=== PATIENT | male | born 1950 | race Caucasian/White ===

== ENCOUNTER 2017-12-19 16:28 | Emergency (ER) | payer MEDICARE, OTHER, SELFPAY ==
[2017-12-19 16:31] VITALS: BP 123/70; PULSE 70; RESP 18; TEMP 36.6; O2SAT 95; BMI 25.8
--- NOTE | 2017-12-19 16:36 | EKG12_ITS ---
Test Reason : NEURO S SX Blood Pressure : / mmHG Vent. Rate : 057 BPM Atrial Rate : 057 BPM P-R Int : 136 ms QRS Dur : 138 ms QT Int : 424 ms P-R-T Axes : 035 155 117 degrees QTc Int : 412 ms Sinus bradycardia Right bundle branch block Abnormal ECG Confirmed by GODFREY MEEK, CARA ([id number]), editor continuity and script DION CAI ([id number]) on 12/23/2017 2:56:24 PM Referred By: Erica Tapia Confirmed By:CARA DONAHEU MD
--- NOTE | 2017-12-19 16:36 | RAD_ITS ---
STUDY: X-RAY CHEST REASON FOR EXAM: Male, 67 years old. Dizziness, numbness, weakness, slurred speech TECHNIQUE: PA and lateral views of the chest. COMPARISON: None. FINDINGS: The lungs are clear and expanded. There is no demonstrated pleural abnormality. The heart size is within normal limits. Status post sternotomy changes are present. Normal mediastinum and isaak. Normal visualized pulmonary arteries. There are calcified plaques of the aortic arch. There are diffuse degenerative changes of the visualized thoracic spine. Stabilizing rods are seen in the visualized lower thoracic region. Normal visualized ribs, clavicles, and shoulders. There is no demonstrated abnormality of the visualized soft tissue structures of the upper abdomen. RAD/Chest PA and Lateral IMPRESSION: Status post sternotomy. Calcified plaques of the aortic arch. Stabilizing rods are seen in the visualized lower thoracic region. There is mild diffuse thoracic spinal endplate spondylosis. Electronically Signed: Olaf England MD at 16:59 EDT , Service support ,
[2017-12-19 16:52] LABS: Absolute Lymphocyte Count 1.54 X10^3/ul (0.83-4.51); Absolute Neutrophil Count 3.3 X10^3/uL (2.0-7.7); Basophil# 0.05 X10^3/uL; Basophil% 0.8 % (0-1); Eosinophil# 0.39 X10^3/uL; Eosinophils% 6.6 % (0-5); Hematocrit 41.6 % (40-54); Hemoglobin 13.8 g/dl (13.0-16.5); Lymphocyte # 1.54 X10^3/ul (4.0); Lymphocyte % 25.9 % (19-41); Mean Corp Hgb Conc 33.2 g/gl (32-36); Mean Corpuscular Hgb 31.7 pg (27.0-32.0); Mean Corpuscular Volume 95.6 fL (80-94); Mean Platelet Vol. 9.5 fl (6.2-12.0); Monocyte# 0.63 X10^3/uL; Monocyte% 10.6 % (0-10); Neutrophil # 3.31 X10^3/uL (2.7-7.7); Neutrophil % 55.8 % (47-70); POSITIVE COUNT NO; POSITIVE DIFFERENTIAL NO; POSITIVE MORPHOLOGY NO; Platelet Count 181 K/mm3 (150-450); RBC Distribution Width CV 14.8 % (11.6-14.6); RBC Distribution Width SD 52.2 fl (35.1-43.9); Red Blood Count 4.35 M/mm3 (4.6-6.2); White Blood Count 5.9 K/mm3 (4.4-11.0)
[2017-12-19 17:02] LABS: Anion Gap 7 (5-15); BUN 24 mg/dL (7-18); BUN/Creat Ratio 20.5 RATIO (10-20); Calcium,Total 8.6 mg/dL (8.5-10.1); Chloride 107 mmol/L (98-107); Creatinine, Serum 1.17 mg/dL (0.70-1.30); EST Glomerular Filtration Rate 66 mL/min (>60); Est Glom Filt Rate - Afr Amer 80 mL/min (>60); Estimated Creatinine Clearance 59.27 ml/min; Glucose 107 mg/dL (74-106); Potassium 3.8 mmol/L (3.5-5.1); Sodium Level 140 mmol/L (136-145)
--- NOTE | 2017-12-19 18:38 | CT_ITS ---
STUDY: CTA OF THE ABDOMINAL AORTA AND BILATERAL LOWER EXTREMITIES REASON FOR EXAM: Male, 67 years old. Severe right lower leg pain. History of diabetes, peripheral vascular disease, coronary artery disease, hypertension and nonhealing wound of the right heel. RADIATION DOSAGE (If Supplied By Facility): CTDIvol = ( 9.56 ) mGy, DLP = ( 1442.95 ) mGycm TECHNIQUE: Axial CT angiography multi-detector data acquisition was obtained from the diaphragm to the feces following intravenous administration of 100 ml of Isovue 370 contrast. Axial images and MIP images were reconstructed from the axial data set. Post-processing of the angiographic images was performed, with multiplanar reformation and 3D reconstruction. Individualized dose optimization techniques were used for this CT. TECHNICAL QUALITY: Good COMPARISON: None. Descriptors of Narrowing: None (0%) Mild (< 50%) Moderate (50-70%) Severe (70-90%) Subtotal/Total Occlusion (90-100%) Non-Evaluable (technically non-diagnostic FINDINGS: Abdominal aorta: Mild to moderate calcified and noncalcified plaque of the aorta without aneurysm, dissection or substantial narrowing of the aortic lumen. Celiac and superior mesenteric arteries: Less than 50% narrowing. Inferior mesenteric artery: Patent. Right renal artery(arteries): Less than 50% narrowing of a single right renal artery. Left renal artery(arteries): Less than 50% narrowing of the single left renal artery. Right common iliac artery: Mild plaque with less than 50% narrowing. Right external iliac artery: Mild to moderate plaque with less than 50% narrowing. Right internal iliac artery: Proximal occlusion with distal reconstitution. Left common iliac artery: Ectatic with mild plaque without significant stenosis. Left external iliac artery: Less than 50% narrowing. Left internal iliac artery: Less than 50% narrowing. RIGHT LOWER EXTREMITY Right common femoral artery: Moderate plaque with less than 50% narrowing Right profundus femoris: No demonstrated narrowing. Right superficial femoral: Occluded 2 cm below the origin. Occlusion is proximal to the endovascular stent which remains occluded. Right popliteal artery: Occluded Right tibioperoneal trunk: Occlusion Right anterior tibial artery: Proximal collateral reconstitution patent to the level of the foot. Right posterior tibial artery: Occluded proximally with distal reconstitution in the lower leg. Thereafter patent into the foot. Right peroneal artery: Occluded proximally. Distal reconstitution. LEFT LOWER EXTREMITY Left common femoral artery: Less than 50% narrowing. Left profundus femoris: Less than 50% narrowing. Left superficial femoral: Occluded at the origin. Minimal distal reconstitution. Left popliteal artery: Occluded Left tibioperoneal trunk: Occluded Left anterior tibial artery: Collateral proximal reconstitution visible into the foot. Left posterior tibial artery: Occluded proximally with distal reconstitution. Left peroneal artery: Proximal reconstitution. Visible to the ankle. Diffuse edematous changes of the bilateral feet and distal lower extremities. Moderate effusion of the right knee. Minimal effusion of the left knee. Large volume urinary bladder. Diverticulosis. Renal cysts. Cortical scar upper pole of the right kidney. 3 cm cyst of the upper pole of the left kidney. Small cortical scar of the upper pole of the left kidney. 2 cm nodule of the right adrenal gland indeterminate. Slightly nodular appearance of the left adrenal gland. Status post lumbar sacral fusion. CT/CTA Abd w/Runoff W/WO Contrast IMPRESSION: Moderate atheromatous disease of the aorta without aneurysm, dissection or substantial narrowing of the lumen. Less than 50% narrowing of the celiac artery, superior mesenteric artery, bilateral renal arteries. Inferior mesenteric artery is patent. Less than 50% narrowing of the right common femoral artery and external iliac artery. The right internal iliac artery is occluded at its origin with distal reconstitution. The right superficial femoral artery is occluded 2 cm past the origin including occlusion of the endovascular stent. Patent nonstenotic profundal artery. Occluded popliteal artery and tibioperoneal trunk. Reconstitution of the proximal anterior tibial artery which is patent into the foot. Occlusion of the proximal peroneal and posterior tibial arteries with distal reconstitution. Ectatic left common femoral artery without stenosis. Less than 50% narrowing of the left external and internal iliac arteries. The left superficial femoral artery is occluded at the origin. Patent nonstenotic profundal artery. Occluded popliteal artery and tibioperoneal trunk. Reconstitution of the proximal anterior tibial artery which remains patent into the level of the foot. Occluded proximal peroneal and posterior tibial arteries with distal reconstitution. Peroneal artery visible to the ankle. Distal posterior tibial artery patent into the foot. Diffuse emphysematous changes of the bilateral lower extremities. Bilateral knee joint effusion, right greater than left. Diverticulosis. Renal cysts and renal scarring. Indeterminate 2 cm right adrenal nodule. Slightly nodular left adrenal gland. Status post lumbosacral fusion. Electronically Signed: Mame Villalobos MD at 20:13 EDT , Service support ,
[2017-12-19] MEDS: Ondansetron 4 MG/2 ML Vial IV (19:12)
[2017-12-19] MEDS: 0.9% Normal Saline 1,000 ML 50 ML IV (19:12)
[2017-12-19] MEDS: HYDROcodone Bitartrate/Apap 5/325 Tablet PO (19:44)
--- NOTE | 2017-12-19 21:03 | ED.DCSUM_ITS ---
- ER Visit Summary Date of Service: 12/19/17 Chief Complaint: Right foot pain History of Present Illness: The patient is a [address] Manolo Pena and Dr. Navas. He reports that he developed a blister on the right heel approximately 1 week ago. He states that 2 days ago it broke open and is now raw and painful. Reports he has a stinging pain is 8 out of 10 severity when he bumps it or walks. Is 3 out of 10 after rest and hydrocodone. Physical Examination: Vitals: Stable. Afebrile. General: Well-nourished and well-developed. Head: Normocephalic atraumatic. Neck: Supple, no lymphadenopathy. No JVD. Nontender. Cardiovascular: Regular rate and rhythm. No murmurs. Respiratory: No respiratory distress. Clear to auscultation bilaterally. Abdominal: Soft, nontender, nondistended, normal bowel sounds. No guarding, rebound, or peritoneal signs. Back: Nontender. Extremities: Nontender, no edema. No palpable dorsalis pedis or posterior tibial pulses bilaterally. There is 3-4 second cap refill. Skin: On the medial side of the right calcaneus there is a 3 cm unroofed blister. There is no surrounding erythema or drainage. No induration.. Neurologic: Alert and oriented ?3. Cranial nerves II through XII are intact. Normal strength and sensation. Psych: Normal affect. Test Results: EKG sinus bradycardia 57 with right bundle branch block. Is unchanged from 2014. Chem-7 is more for glucose 107 and BUN 24. CBC is more for monocytes of 11 eosinophils of 7. Chest x-ray shows chronic changes and no acute disease. Clinical Impression(s) from Imaging Studies Abdomen/Pelvis CTA 12/19/17 18:38 IMPRESSION: Moderate atheromatous disease of the aorta without aneurysm, dissection or substantial narrowing of the lumen. Less than 50% narrowing of the celiac artery, superior mesenteric artery, bilateral renal arteries. Inferior mesenteric artery is patent. Less than 50% narrowing of the right common femoral artery and external iliac artery. The right internal iliac artery is occluded at its origin with distal reconstitution. The right superficial femoral artery is occluded 2 cm past the origin including occlusion of the endovascular stent. Patent nonstenotic profundal artery. Occluded popliteal artery and tibioperoneal trunk. Reconstitution of the proximal anterior tibial artery which is patent into the foot. Occlusion of the proximal peroneal and posterior tibial arteries with distal reconstitution. Ectatic left common femoral artery without stenosis. Less than 50% narrowing of the left external and internal iliac arteries. The left superficial femoral artery is occluded at the origin. Patent nonstenotic profundal artery. Occluded popliteal artery and tibioperoneal trunk. Reconstitution of the proximal anterior tibial artery which remains patent into the level of the foot. Occluded proximal peroneal and posterior tibial arteries with distal reconstitution. Peroneal artery visible to the ankle. Distal posterior tibial artery patent into the foot. Diffuse emphysematous changes of the bilateral lower extremities. Bilateral knee joint effusion, right greater than left. Diverticulosis. Renal cysts and renal scarring. Indeterminate 2 cm right adrenal nodule. Slightly nodular left adrenal gland. Status post lumbosacral fusion. Electronically Signed: Mame Villalobos MD at 20:13 EDT , Service support , Emergency Department Course and Treatment: Patient was treated with [place] p.o. and Plavix p.o. He is resting comfortably. Treatment Plan: The patient was discussed with his vascular surgeon Dr. Navas. I read the CT report to him. He reports at this time no further treatment is needed he would like the patient be placed on Plavix. He has appointment to see him in 4 days. He is instructed to keep this appointment. It sounds as though at that time they will will do an angiogram to see if there is something that can be revascularized. Patient is to return to emerge department for worsening pain or a pale leg that would suggest acute ischemia. Disposition: To home in improved and stable condition. Impression: 1. Peripheral arterial disease. 2. Blister right heel. This note was generated with [employer] dictation software. It may contain incorrect words, spelling, and punctuation that were not noted in review of the chart prior to signing ED Disposition - Plan for ED Patient: Disposition: Home or Assisted Living Chief Complaint: Neuro S/Sx Instructions: ED PVD Prescriptions: Oxycodone HCl/Acetaminophen [Percocet 5/325] 1 tablet PO Q6H PRN PRN 5 Days #20 tablet PRN Reason: Pain Clopidogrel Bisulfate [Plavix] 75 mg PO DAILY #30 tablet Docusate Sodium [Colace] 100 mg PO DAILY #20 capsule Referrals: Lex Navas MD [STAFF PHYSICIAN] - Keep [facility] appointment
[2017-12-19] MEDS: Clopidogrel Bisulfate 75 MG Tablet PO (21:24)
[2017-12-19 21:29] VITALS: BP 111/53; PULSE 65; RESP 18; O2SAT 95
== END 2017-12-19 21:31 | disposition home or self-care (01) ==
PROVIDERS: Emergency Provider Emergency Medicine; Family Provider Family Medicine; PCP Family Medicine
DX: I73.9 Peripheral vascular disease, unspecified (principal); S90.821A Blister (nonthermal), right foot, initial encounter; X58.XXXA Exposure to other specified factors, initial encounter; Y93.9 Activity, unspecified; Y92.9 Unspecified place or not applicable; I25.10 Atherosclerotic heart disease of native coronary artery without angina pectoris; I25.2 Old myocardial infarction; I10 Essential (primary) hypertension; E11.9 Type 2 diabetes mellitus without complications; Z86.73 Personal history of transient ischemic attack (TIA), and cerebral infarction without residual deficits; Z95.1 Presence of aortocoronary bypass graft; Z79.82 Long term (current) use of aspirin; Z79.01 Long term (current) use of anticoagulants; Z79.899 Other long term (current) drug therapy
CPT/HCPCS: 71046; 75635; 80048; 85025; 93005; 96361; 96374; 96375; 99285; J7030; Q9967; A4216; J2405

== ENCOUNTER → 2018-02-19 12:53 | Outpatient (CLI) | payer MEDICARE, OTHER, SELFPAY ==
--- NOTE | 2018-02-19 12:56 | ADUL_ITS ---
Reason For Study: Atherosclerosis Right Velocities Ext. Iliac Artery, dist = 156 cm./sec. Common Femoral Artery, dist = 117 cm./sec. Supf Femoral Artery, prox = 49 cm./sec. Rt SFA prox-distal: No Flow. Profunda Femoral Artery = 288 cm./sec. Post. Tibial Artery, dist = 17 cm./sec. Peroneal Artery, mid = 9 cm./sec. Ant. Tibial Artery, prox = 24 cm./sec. Ant. Tibial Artery, mid = 25 cm./sec. Ant. Tibial Artery, dist = 34 cm./sec. Rt INFORMATION SERVICES VICE PRESIDENT prox and mid: No Flow Rt PeroA prox and distal: No Flow Rt DPA: 10cm/s. Procedure Exam performed in department. Interpretation Summary 1. Right SFaand popliteal occluded with monohasic flow in anterior tibial which is only run off into foot. Ordering Physician: Lex Navas Referring Physician: Manolo Pena Performed By: Marybeth Shi, ED, RVT
--- NOTE | 2018-02-19 14:19 | VDLE_ITS ---
Reason For Study: Preop Arterial Bypass RIGHT LEFT Rt GSV harvested for CABG Lt GSV thigh prox: 0.47cm x 0.44cm, depth: 1.15cm Rt SSV prox: 0.30cm x 0.32cm, depth: 0.37cm Lt GSV thigh prox/mid: 0.42cm x 0.42cm, Rt SSV prox/mid: 0.31cm x 0.30cm, depth: depth: 0.56cm 0.93cm Lt GSV thigh mid: 0.45cm x 0.46cm, depth: Rt SSV mid: 0.26cm x 0.26cm, depth: 0.78cm 0.60cm Rt SSV mid/distal: 0.32cm x 0.32cm, depth: Lt GSV thigh mid/distal: 0.42cm x 0.45cm, 0.45cm depth: 0.60cm Rt SSV distal: 0.30cm x 0.33cm, depth: Lt GSV thigh distal: 0.46cm x 0.51cm, depth: 0.55cm. 0.39cm Lt GSV knee: 0.45cm x 0.45cm, depth: 0.27cm Lt GSV prox: 0.38cm x 0.38cm, depth: 0.21cm Lt GSV prox/mid: 0.30cm x 0.31cm, depth: 0.81cm Lt GSV mid: 0.33cm x 0.32cm, depth: 0.86cm Lt GSV mid/distal: 0.38cm x 0.39cm, depth: 0.81cm Lt GSV distal: 0.39cm x 0.40cm, depth: 0.76cm Lt SSV prox: 0.37cm x 0.38cm, depth: 0.57cm Lt SSV prox/mid: 0.47cm x 0.48cm, depth: 0.95cm Lt SSV mid: 0.42cm x 0.39cm, depth: 1.01cm Lt SSV mid/distal: 0.42cm x 0.42cm, depth: 0.75cm Lt SSV distal: 0.35cm x 0.36cm, depth: 0.82cm. Interpretation Summary 1. Left GSv good caliber throughout. 2. Bilateral LSV normal. Ordering Physician: Lex Navas Referring Physician: Manolo Pena Performed By: Marybeth Shi RDCS, RVT
--- NOTE | 2018-02-26 08:20 | LEAS ---
Arterial Study - Arterial Study Arterial Study: Date of scan 02/19/[address] Navas History: Patient with right heel ulcer and known atherosclerosis. Interpretation: Right lower extremity with decreased waveform noted at the ankle with monophasic flow. JANET 0.1 of the PT 0.4 for the DP. Digit brachial index 0.11. Left lower extremity also monophasic flow noted at the ankle with a very poor waveform of the posterior tibial and unable to get a JANET. Also unable to get an JANET of the DP. Digit brachial index 0.28 Impression: 1. Bilateral lower extremities with severe arterial occlusive disease with an JANET 0.44 on the right and unable to get one on the left. 2. Severe PAD with also probable small vessel disease with the digit brachial index 0.11 on the right 0.28 on the left
== END ==
PROVIDERS: Family Provider Family Medicine; PCP Family Medicine; Visit Provider Surgery Vascular Surgery
DX: Z01.818 Encounter for other preprocedural examination (principal); I70.213 Atherosclerosis of native arteries of extremities with intermittent claudication, bilateral legs; I70.245 Atherosclerosis of native arteries of left leg with ulceration of other part of foot
CPT/HCPCS: 93922; 93926; 93970

== ENCOUNTER 2018-06-13 12:54 | Outpatient (RCR) | payer MEDICARE, OTHER, SELFPAY ==
[2018-06-13 13:27] VITALS: BP 157/70; PULSE 62; RESP 16; TEMP 36.9; BMI 27.3
--- NOTE | 2018-06-13 17:57 | HP.PCM_ITS ---
(1) Type 2 diabetes, uncontrolled, with ulcer of heel Status: Chronic Current Visit: Yes Code(s): E11.621 - Type 2 diabetes mellitus with foot ulcer; E11.65 - Type 2 diabetes mellitus with hyperglycemia; L97.409 - Non-pressure chronic ulcer of unspecified heel and midfoot with unspecified severity (2) Non-healing open wound of heel Status: Chronic Current Visit: Yes Qualifiers: Encounter type: initial encounter Laterality: right Qualified Code(s): S91.301A - Unspecified open wound, right foot, initial encounter Code(s): S91.309A - Unspecified open wound, unspecified foot, initial encounter (3) Peripheral vascular disease Status: Chronic Current Visit: Yes Code(s): I73.9 - Peripheral vascular disease, unspecified (4) Hypertension Status: Chronic Current Visit: Yes Code(s): I10 - Essential (primary) hypertension (5) Coronary artery disease Status: Chronic Current Visit: No Qualifiers: Coronary Disease-Associated Artery/Lesion type: bypass graft [place] vs. transplanted heart: [place] heart Associated angina: angina presence unspecified Qualified Code(s): I25.810 - Atherosclerosis of coronary artery bypass graft(s) without angina pectoris Code(s): I25.10 - Atherosclerotic heart disease of [place] coronary artery without angina pectoris Comment: Status post CABG (6) Venous ulcer of right lower extremity without varicose veins Status: Chronic Current Visit: Yes Code(s): I87.2 - Venous insufficiency (chronic) (peripheral); L97.919 - Non-pressure chronic ulcer of unspecified part of right lower leg with unspecified severity History of Present Illness Date of Service: 06/13/18 Chief Complaint: Nonhealing ulcer right heel and whitney History of Wound: This 68-year-old male is here for evaluation of an ulcer of his right heel and his right whitney. He states that he has had an ulcer approx. 5 years ago of this same heel and was treated here and was healed after vascular interventions by Dr. Navas. He has noticed increased pain in his heel for the last few months and approx. 5 weeks ago he noted an open wound to his right heel. He was using gauze but this started to irritate his skin and has been using silvadene and adaptic to the wound with tape for the last few weeks. He has not had any treatment with antibiotics for the wound. He is self-referred for treatment here. He does follow with Dr. 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 He has had procedures for his arterial disease in past to both of his lower extremities. From review of records it seems that Dr. Navas planned to do a right SFA-ant. tib bypass but it does not appear that this was done and patient denies having any bypass procedures other than his heart. It sounds like he is trying alternative treatments with supplements and chelation therapy. He also has diabetes and his last A1C several months ago was 7.2% but he stopped glyburide because he felt it was causing blisters of his legs. He does wear diabetic shoes. He has been undergoing chelation treatments by Dr. German in [place]. Dr. German prescribed him oxycodone-APAP 5/325 mg #60 which were filled on 05/22/18 for pain, he has six tablets left from this prescription, and he is asking for pain medication to treat pain from debridement. He reports having xrays done several months ago of his right heel due to pain which did not show any osteomyelitis or acute fractures. He denies fever, chills, erythema or heavy drainage. He reports significant pain and discomfort of his right heel and his entire right leg which no one can explain. Past Medical History Past Medical History: Chronic Problems Type 2 diabetes, uncontrolled, with ulcer of heel (Chronic) Venous ulcer of right lower extremity without varicose veins (Chronic) Non-healing open wound of heel (Chronic) Hyperlipidemia (Chronic) Peripheral vascular disease (Chronic) Hypertension (Chronic) Coronary artery disease (Chronic) Status post CABG Type II diabetes mellitus (Chronic) Surgical History: coronary bypass surgery, - - Recurrent back surgeries ?3 Allergies/Adverse Reactions: Allergies No Known Allergies Allergy (Verified 06/13/18 14:10) Home Medications: Ambulatory Orders Medication Instructions Recorded #17 3 tab PO DAILY 06/13/18 Aspirin [Lite Coat Aspirin] 325 mg PO BID 06/13/18 [id number] 1 PO DAILY 06/13/18 Calcium Lactate 1 PO DAILY 06/13/18 [place] Oil Packs 1 TOPICAL Q24H 06/13/18 Cat C 2 PO BID 06/13/18 Cat E2 8 PO DAILY 06/13/18 Cholecalciferol (Vitamin D3) 5,000 mg PO BID 06/13/18 [Vitamin D3] Colon Clear 1 tab PO DAILY 06/13/18 Inositol 2 PO BID 06/13/18 Intestinal Cleanse No 1 3 tab PO DAILY 06/13/18 Iosol 2 drop PO MOWEFR 06/13/18 Kdir 2 PO BID 06/13/18 Koncentrated K 1 tab PO DAILY 06/13/18 Lymphtone Iii 5 drop SL BID 06/13/18 Mag Lactate 1 PO DAILY 06/13/18 Nattokinase 2 tab PO DAILY 06/13/18 Oxycodone HCl/Acetaminophen 1 tablet PO BID PRN 06/13/18 [Percocet 5/325] Phosphood Liquid 1 drop PO DAILY 06/13/18 Potassium-Derick 1 PO DAILY 06/13/18 Tuna 03 Oil 3 PO DAILY 06/13/18 Viru-Chord 5 drop SL BID 06/13/18 Zn-Zyme 1 PO DAILY 06/13/18 - Family History Maternal Diabetes, Heart Disease, Hypertension, Stroke Paternal Diabetes, Heart Disease, Pulmonary Disease Sibling Cancer Lives: Spouse/ Significant Other Smoking Status: Never smoker Tobacco Use: Non-smoker Alcohol: None Drugs: None Review of Systems Constitutional: Denies: Chills, Fever, Weight Change Eyes: Denies: Pain, Vision Change HEENT: Denies: Difficulty Hearing, Difficulty Swallowing, Sinus Congestion Cardiovascular: Denies: Chest Pain, Palpitations Respiratory: Denies: Cough, Shortness of Breath Gastrointestinal: Denies: Diarrhea, Nausea, Vomiting Genitourinary: Denies: Dysuria, Hematuria Musculoskeletal: Reports: Back Pain, Leg Pain Skin: Reports: Wounds Neurological: Reports: Numbness, Tingling Endocrine: Denies: Heat/ Cold Intolerance, Polydipsia, Polyuria Hematologic/ Lymphatic: Denies: Easy Bruising, Easy Bleeding - Physical Exam Vital Signs Temp Pulse Resp BP 98.4 F 62 16 157/70 H 06/13/18 13:27 06/13/18 13:27 06/13/18 13:27 06/13/18 13:27 General: Alert, Oriented x3, Cooperative, No apparent distress HEENT: Atraumatic, Normocephalic Oral: Dry Mucosa Neck: Supple Lungs: Clear to auscultation Cardiovascular: Regular rate, Regular Rhythm Abdomen: Soft, Non Tender Extremities: Diminished Peripheral Pulses, Edema, Tenderness Skin: Ulcer/ Wound Wound Measurements and Assessment WC - Nurse 1 - General Ulcer Measurement Start: 06/13/18 13:27 Freq: Status: Active Protocol: Activity Type Activity Date Activity User E-Sign Co-Sign Detail Recorded Client Recorded Date Recorded By Document 06/13/18 13:27 [facility] [id number] 06/13/18 14:03 [facility] 06/13/18 13:27 Wound Center Nurse 1 [Ulcer Assessment] #3 Right Medial Whitney -Combined with other wound No -Current Size (cm) - Length 2.2 -Current Size (cm) - Width 0.4 -Current Size (cm) - Depth 0.2 -Total Square Cm 0.88 -Photo Taken No -Epithelialization None Present -Tunneling No -Undermining/Tunneling No -Circular Undermining No -Classification - Thickness Full Thickness without Exposed Support Structure -Exudate Amt Small (1-33%) -Exudate Type Serosanguineous -Wound Margin Flat & Intact -Granulation Amt None Present (0 %) -Granulation Quality N/A -Slough/Fibrin Yes -Necrosis Amt Small (1-33%) -Necrotic Tissue Type Adherent Slough -Structure Exposed None/Limited to Skin Breakdown -Texture (Shahana-wound Skin Appearance) Assessed -Moisture (Shahana-wound Skin Appearance Assessed ) -Color (Shahana-wound Skin Appearance) Assessed -Temperature (Shahana-wound Skin No Abnormality Appearance) (Pt Warm) -Ulcer Cleansing Rinsed/ Irrigated with Saline -Foul Odor after Cleansing No -Anesthetic Used 5% Lidocaine Gel #2 R Heel -Combined with other wound No -Current Size (cm) - Length 1.0 -Current Size (cm) - Width 0.8 -Current Size (cm) - Depth 0.2 -Total Square Cm 0.80 -Date of Last Picture (Recall this 06/13/18 field) -Photo Taken Yes -Epithelialization None Present -Tunneling No -Undermining/Tunneling No -Circular Undermining No -Classification - Thickness Full Thickness without Exposed Support Structure -Exudate Amt Small (1-33%) -Exudate Type Serosanguineous -Wound Margin Indistinct, Non -Visible -Granulation Amt None Present (0 %) -Granulation Quality N/A -Slough/Fibrin Yes -Necrosis Amt Large (67-100%) -Necrotic Tissue Type Adherent Slough -Structure Exposed None/Limited to Skin Breakdown -Texture (Shahana-wound Skin Appearance) Assessed Scarring -Moisture (Shahana-wound Skin Appearance Assessed ) Weeping -Color (Shahana-wound Skin Appearance) Assessed Erythema -Temperature (Shahana-wound Skin No Abnormality Appearance) (Pt Warm) -Tenderness on Palpation (Shahana-wound Yes Skin Appearance) -Ulcer Cleansing Rinsed/ Irrigated with Saline -Foul Odor after Cleansing No -Anesthetic Used 5% Lidocaine Gel [Edema Assessment] -Lower Limb Edema Present No -Right Calf (cm) 31.7 -Right Ankle (cm) 22.5 -Left Calf (cm) 31.9 -Left Ankle (cm) 24.8 WC - Nurse 2 - General Ulcer CM Notes Start: 06/13/18 13:27 Freq: Status: Active Protocol: Activity Type Activity Date Activity User E-Sign Co-Sign Detail Recorded Client Recorded Date Recorded By Document 06/13/18 14:24 [id number] 06/13/18 14:43 [facility] 06/13/18 14:24 Wound Center Nurse 2 [Procedure/Treatment] #4 RIGHT ACHILLES -Time 14:47 -Correct Patient Yes -Correct Side, Site, Position Yes -Correct Procedure Yes -Procedure Performed Yes -Type of Procedure Debridement -Clinical Debridement Subcutaneous -Post Debridement Size (cm) - Length 1.0 -Post Debridement Size (cm) - Width 0.9 -Post Debridement Size (cm) - Depth 0.2 -Total Square Cm 0.90 -Wound/Ulcer Outcome Not Healed -Ulcer Cleansing Rinsed/ Irrigated with Saline -Foul Odor after Cleansing No -Bioengineered Tissue No -Bleeding Controlled with Pressure -Offloading No -Treatment Response Procedure Tolerated Well #3 Right Medial Whitney -Time 14:29 -Correct Patient Yes -Correct Side, Site, Position Yes -Correct Procedure Yes -Procedure Performed Yes -Type of Procedure Debridement -Clinical Debridement Subcutaneous -Post Debridement Size (cm) - Length 4.4 -Post Debridement Size (cm) - Width 0.5 -Post Debridement Size (cm) - Depth 0.1 -Total Square Cm 2.20 -Wound/Ulcer Outcome Not Healed -Ulcer Cleansing Rinsed/ Irrigated with Saline -Foul Odor after Cleansing No -Bioengineered Tissue No -Bleeding Controlled with Pressure -Offloading No -Treatment Response Procedure Tolerated Well #2 R Heel -Time 14:29 -Correct Patient Yes -Correct Side, Site, Position Yes -Correct Procedure Yes -Procedure Performed Yes -Type of Procedure Debridement -Clinical Debridement Subcutaneous -Post Debridement Size (cm) - Length 1 -Post Debridement Size (cm) - Width 1 -Post Debridement Size (cm) - Depth 0.3 -Total Square Cm 1 -Wound/Ulcer Outcome Not Healed -Ulcer Cleansing Rinsed/ Irrigated with Saline -Foul Odor after Cleansing No -Bioengineered Tissue No -Bleeding Controlled with Pressure -Offloading No -Treatment Response Procedure Tolerated Well [See Physician Procedure note for Specifics] Pain Scale: 0-10 Numeric [Pain] -Is Patient Pain Free? Yes Neurological: - - left foot drop Psych/Mental Status: Normal Affect, Appropriate Debridement Note Post-Debridement Measurements/Treatment WC - Nurse 2 - General Ulcer CM Notes Start: 06/13/18 13:27 Freq: Status: Active Protocol: Activity Type Activity Date Activity User E-Sign Co-Sign Detail Recorded Client Recorded Date Recorded By Document 06/13/18 14:24 [id number] 06/13/18 14:43 06/13/18 14:24 Wound Center Nurse 2 #4 RIGHT ACHILLES -Time 14:47 -Correct Patient Yes -Correct Side, Site, Position Yes -Correct Procedure Yes -Procedure Performed Yes -Type of Procedure Debridement -Clinical Debridement Subcutaneous -Post Debridement Size (cm) - Length 1.0 -Post Debridement Size (cm) - Width 0.9 -Post Debridement Size (cm) - Depth 0.2 -Total Square Cm 0.90 -Wound/Ulcer Outcome Not Healed -Ulcer Cleansing Rinsed/ Irrigated with Saline -Foul Odor after Cleansing No -Bioengineered Tissue No -Bleeding Controlled with Pressure -Offloading No -Treatment Response Procedure Tolerated Well #3 Right Medial Whitney -Time 14:29 -Correct Patient Yes -Correct Side, Site, Position Yes -Correct Procedure Yes -Procedure Performed Yes -Type of Procedure Debridement -Clinical Debridement Subcutaneous -Post Debridement Size (cm) - Length 4.4 -Post Debridement Size (cm) - Width 0.5 -Post Debridement Size (cm) - Depth 0.1 -Total Square Cm 2.20 -Wound/Ulcer Outcome Not Healed -Ulcer Cleansing Rinsed/ Irrigated with Saline -Foul Odor after Cleansing No -Bioengineered Tissue No -Bleeding Controlled with Pressure -Offloading No -Treatment Response Procedure Tolerated Well #2 R Heel -Time 14:29 -Correct Patient Yes -Correct Side, Site, Position Yes -Correct Procedure Yes -Procedure Performed Yes -Type of Procedure Debridement -Clinical Debridement Subcutaneous -Post Debridement Size (cm) - Length 1 -Post Debridement Size (cm) - Width 1 -Post Debridement Size (cm) - Depth 0.3 -Total Square Cm 1 -Wound/Ulcer Outcome Not Healed -Ulcer Cleansing Rinsed/ Irrigated with Saline -Foul Odor after Cleansing No -Bioengineered Tissue No -Bleeding Controlled with Pressure -Offloading No -Treatment Response Procedure Tolerated Well Pain Scale: 0-10 Numeric Is Patient Pain Free? Yes Wound debrided: right achilles Laterality: Right Wound Grade/Stage: Stage 1 Valdez Type of Debridement: Excisional debridement Anesthesia Used: 4% Lidocaine Solution, 5% Lidocaine Gel Depth: Down to and including healthy tissue, in the subcutaneous layer Percentage of wound debrided: 100 Instrument Used: 5mm curette Tissue Removed: yellow slough, devitalized tissue Severity: Fat Layer Exposed Amount of bleeding with debridement: Mild Bleeding Controlled with: Compression and gauze Patient tolerated procedure well - Additional Wound Wound debrided: right heel Laterality: Right Wound Grade/Stage: Valdez stage 1 Type of Debridement: Excisional debridement Anesthesia Used: 4% Lidocaine Solution, 5% Lidocaine Gel Depth: Down to and including healthy tissue, in the subcutaneous layer Percentage of wound debrided: 100 Instrument Used: 5mm curette, #15 blade, Forceps Tissue Removed: yellow slough, devitalized tissue Severity: Fat Layer Exposed Amount of bleeding with debridement: Mild Bleeding Controlled with: Compression and gauze Patient tolerated procedure: Patient tolerated procedure well - Additional Wound Wound debrided: right whitney Laterality: Right Type of Debridement: Excisional debridement Anesthesia Used: 4% Lidocaine Solution, 5% Lidocaine Gel Depth: Down to and including healthy tissue, in the subcutaneous layer Percentage of wound debrided: 100 Instrument Used: 5mm curette Tissue Removed: yellow slough, devitalized tissue Severity: Fat Layer Exposed Amount of bleeding with debridement: Mild Bleeding Controlled with: Compression and gauze Patient tolerated procedure: Patient tolerated procedure well Assessment/Plan Active Problems Type 2 diabetes, uncontrolled, with ulcer of heel (Chronic) Venous ulcer of right lower extremity without varicose veins (Chronic) Non-healing open wound of heel (Chronic) Peripheral vascular disease (Chronic) Hypertension (Chronic) Assessment: 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 Diabetes mellitus - uncontrolled. Peripheral vascular disease - status post revascularization but re-occlusion. right whitney venous ulcer Plan: Gibson's wounds were evaluated and debrided today. Records from vascular have been reviewed and it appears that Dr. Navas recommended a SFA-ant. tib. bypass for his right leg but this has not been done. Wound culture was taken of his heel and will treat based on results. Will use Aquacel Ag and adaptic for treatment of his ulcers. Discussed offloading importance and gave him a surgical shoe to wear to offload his heel. Discuss TCC but he refuses at this time. Single layer tubigrip compression advised if he can tolerate this, avoidance of idle standing or sitting with legs hanging down. Encouraged improved control of his blood sugars. Encouraged him to seek consultation with pain management for his pain and gave him a 7 day RX (#56) for tramadol to use for pain as needed. [place]ARRS checked and appropriate. Encouarged to call with increased drainage, redness or fever or chills. Will f/u in 1 week.
== END 2018-06-16 23:59 ==
LOC: WC 12:54
PROVIDERS: Family Provider Family Medicine; PCP Family Medicine; Visit Provider Family Medicine
DX: E11.621 Type 2 diabetes mellitus with foot ulcer (principal); E11.65 Type 2 diabetes mellitus with hyperglycemia; E11.51 Type 2 diabetes mellitus with diabetic peripheral angiopathy without gangrene; I10 Essential (primary) hypertension; L97.412 Non-pressure chronic ulcer of right heel and midfoot with fat layer exposed; I25.10 Atherosclerotic heart disease of native coronary artery without angina pectoris; Z95.5 Presence of coronary angioplasty implant and graft; Z79.899 Other long term (current) drug therapy; Z79.82 Long term (current) use of aspirin; M21.372 Foot drop, left foot; L97.812 Non-pressure chronic ulcer of other part of right lower leg with fat layer exposed; L97.312 Non-pressure chronic ulcer of right ankle with fat layer exposed; E11.622 Type 2 diabetes mellitus with other skin ulcer
CPT/HCPCS: 11042; 87070; 87075; 87186; 87205; 99214; G0463

== ENCOUNTER 2018-07-11 14:45 | Outpatient (RCR) | payer MEDICARE, OTHER, SELFPAY ==
[2018-06-17 01:38] VITALS: BP 157/70; PULSE 62; RESP 16; TEMP 36.9
[2018-06-20 13:51] VITALS: BP 165/84; PULSE 73; RESP 18; TEMP 36.6; BMI 27.3
--- NOTE | 2018-06-20 14:57 | WC ---
pt refuse tubigrip bilat. pt states they hurt too much.
--- NOTE | 2018-06-20 18:31 | PCM.WC.PN ---
(1) Type 2 diabetes, uncontrolled, with ulcer of heel Status: Chronic Current Visit: Yes Code(s): E11.621 - Type 2 diabetes mellitus with foot ulcer; E11.65 - Type 2 diabetes mellitus with hyperglycemia; L97.409 - Non-pressure chronic ulcer of unspecified heel and midfoot with unspecified severity (2) Venous ulcer of right lower extremity without varicose veins Status: Chronic Current Visit: Yes Code(s): I87.2 - Venous insufficiency (chronic) (peripheral); L97.919 - Non-pressure chronic ulcer of unspecified part of right lower leg with unspecified severity (3) Peripheral vascular disease Status: Chronic Current Visit: Yes Code(s): I73.9 - Peripheral vascular disease, unspecified (4) Type II diabetes mellitus Status: Chronic Current Visit: Yes Qualifiers: Diabetes mellitus terminal clerk insulin use: without terminal clerk use Diabetes mellitus complication status: with skin complications Diabetes mellitus complication detail: with foot ulcer Qualified Code(s): E11.621 - Type 2 diabetes mellitus with foot ulcer; L97.509 - Non-pressure chronic ulcer of other part of unspecified foot with unspecified severity Code(s): E11.9 - Type 2 diabetes mellitus without complications Type of Wound Date of Service: 06/20/18 Chief Complaint: Nonhealing ulcer right heel and whitney History of Wound: This 68-year-old male is here for evaluation of an ulcer of his right heel and his right whitney. He states that he has had an ulcer approx. 5 years ago of this same heel and was treated here and was healed after vascular interventions by Dr. Navas. He has noticed increased pain in his heel for the last few months and approx. 5 weeks ago he noted an open wound to his right heel. He was using gauze but this started to irritate his skin and has been using silvadene and adaptic to the wound with tape for the last few weeks. He has not had any treatment with antibiotics for the wound. He is self-referred for treatment here. He does follow with Dr. 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 He has had procedures for his arterial disease in past to both of his lower extremities. From review of records it seems that Dr. Navas planned to do a right SFA-ant. tib bypass but it does not appear that this was done and patient denies having any bypass procedures other than his heart. It sounds like he is trying alternative treatments with supplements and chelation therapy. He also has diabetes and his last A1C several months ago was 7.2% but he stopped glyburide because he felt it was causing blisters of his legs. He does wear diabetic shoes. He has been undergoing chelation treatments by Dr. German in [place]. Dr. German prescribed him oxycodone-APAP 5/325 mg #60 which were filled on 05/22/18 for pain, he has six tablets left from this prescription, and he is asking for pain medication to treat pain from debridement. He reports having xrays done several months ago of his right heel due to pain which did not show any osteomyelitis or acute fractures. He denies fever, chills, erythema or heavy drainage. He reports significant pain and discomfort of his right heel and his entire right leg which no one can explain. Progress of Wound: Gibson is here to follow up for nonhealing ulcers of his right foot. He tolerated the dressings but did not tolerate compression with tubigrip. He had severe pain until starting antibiotics on Saturday for positive wound culture. He is tolerating antibiotics. He has been trying to elevate his foot and has been using his surgical shoe to offload as well. Denies fever or chills or increased drainage. - Physical Exam Vital Signs Temp Pulse Resp BP 97.8 F 73 18 165/84 H 06/20/18 13:51 06/20/18 13:51 06/20/18 13:51 06/20/18 13:51 General: Alert, Oriented x3, Cooperative, No apparent distress HEENT: Atraumatic, Normocephalic Oral: Dry Mucosa Extremities: Edema Skin: Ulcer/ Wound Wound Measurements and Assessment - Nurse 1 - General Ulcer Measurement Start: 06/20/18 13:51 Freq: Status: Active Protocol: Activity Type Activity Date Activity User E-Sign Co-Sign Detail Recorded Client Recorded Date Recorded By Document 06/20/18 13:51 PA [id number] 06/20/18 13:57 PA 06/20/18 13:51 Wound Center Nurse 1 [Ulcer Assessment] #4 RIGHT ACHILLES -Combined with other wound No -Current Size (cm) - Length 0.7 -Current Size (cm) - Width 0.9 -Current Size (cm) - Depth 0.3 -Total Square Cm 0.63 -Photo Taken No -Tunneling No -Undermining/Tunneling No -Circular Undermining No -Exudate Amt Small (1-33%) -Exudate Type Serosanguineous -Wound Margin Thickened & Rolled Under -Granulation Amt Small (1-33%) -Granulation Quality [place] -Slough/Fibrin Yes -Necrosis Amt Large (67-100%) -Necrotic Tissue Type Adherent Slough -Texture (Shahana-wound Skin Appearance) Assessed -Moisture (Shahana-wound Skin Appearance Assessed ) Maceration -Color (Shahana-wound Skin Appearance) Assessed Erythema -Temperature (Shahana-wound Skin No Abnormality Appearance) (Pt Warm) -Tenderness on Palpation (Shahana-wound No Skin Appearance) -Ulcer Cleansing Rinsed/ Irrigated with Saline -Foul Odor after Cleansing No -Anesthetic Used 4% Lidocaine Solution #3 Right Medial Whitney -Current Size (cm) - Length 0.1 -Current Size (cm) - Width 0.1 -Current Size (cm) - Depth 0.1 -Total Square Cm 0.01 -Texture (Shahana-wound Skin Appearance) Assessed -Moisture (Shahana-wound Skin Appearance Assessed ) -Color (Shahana-wound Skin Appearance) Assessed -Temperature (Shahana-wound Skin No Abnormality Appearance) (Pt Warm) -Tenderness on Palpation (Shahana-wound No Skin Appearance) -Ulcer Cleansing Rinsed/ Irrigated with Saline -Foul Odor after Cleansing No -Anesthetic Used 4% Lidocaine Solution #2 R Heel -Combined with other wound No -Current Size (cm) - Length 1.1 -Current Size (cm) - Width 1 -Current Size (cm) - Depth 0.3 -Total Square Cm 1.1 -Photo Taken No -Tunneling No -Undermining/Tunneling No -Circular Undermining No -Exudate Amt Small (1-33%) -Exudate Type Serosanguineous -Wound Margin Thickened & Rolled Under -Granulation Amt Medium (34-66%) -Granulation Quality [place] -Necrosis Amt Medium (34-66%) -Necrotic Tissue Type Adherent Slough -Texture (Shahana-wound Skin Appearance) Assessed Scarring -Moisture (Shahana-wound Skin Appearance Assessed ) -Color (Shahana-wound Skin Appearance) Assessed -Temperature (Shahana-wound Skin No Abnormality Appearance) (Pt Warm) -Tenderness on Palpation (Shahana-wound Yes Skin Appearance) -Ulcer Cleansing Rinsed/ Irrigated with Saline -Foul Odor after Cleansing No -Anesthetic Used 4% Lidocaine Solution [Edema Assessment] -Right Calf (cm) 34 -Right Ankle (cm) 22.1 WC - Nurse 2 - General Ulcer CM Notes Start: 06/20/18 13:51 Freq: Status: Active Protocol: Activity Type Activity Date Activity User E-Sign Co-Sign Detail Recorded Client Recorded Date Recorded By Document 06/20/18 14:29 [id number] 06/20/18 14:45 06/20/18 14:29 Wound Center Nurse 2 [Procedure/Treatment] #4 RIGHT ACHILLES -Time 14:32 -Correct Patient Yes -Correct Side, Site, Position Yes -Correct Procedure Yes -Procedure Performed Yes -Type of Procedure Debridement -Clinical Debridement Subcutaneous -Post Debridement Size (cm) - Length 1 -Post Debridement Size (cm) - Width 1 -Post Debridement Size (cm) - Depth 0.2 -Total Square Cm 1 -Wound/Ulcer Outcome Not Healed -Ulcer Cleansing Rinsed/ Irrigated with Saline -Foul Odor after Cleansing No -Bioengineered Tissue No -Bleeding Controlled with NA -Offloading Yes -Type of Offloading Surgical Shoe -Treatment Response Procedure Tolerated Well #3 Right Medial Whitney -Time 14:32 -Correct Patient Yes -Correct Side, Site, Position Yes -Correct Procedure Yes -Procedure Performed Yes -Type of Procedure Debridement -Clinical Debridement Subcutaneous -Post Debridement Size (cm) - Length 0.7 -Post Debridement Size (cm) - Width 0.2 -Post Debridement Size (cm) - Depth 0.1 -Total Square Cm 0.14 -Wound/Ulcer Outcome Not Healed -Ulcer Cleansing Rinsed/ Irrigated with Saline -Foul Odor after Cleansing No -Bioengineered Tissue No -Bleeding Controlled with NA -Offloading No -Type of Offloading Surgical Shoe #2 R Heel -Time 14:33 -Correct Patient Yes -Correct Side, Site, Position Yes -Correct Procedure Yes -Procedure Performed Yes -Type of Procedure Debridement -Clinical Debridement Subcutaneous -Post Debridement Size (cm) - Length 1.2 -Post Debridement Size (cm) - Width 1.1 -Post Debridement Size (cm) - Depth 0.4 -Total Square Cm 1.32 -Wound/Ulcer Outcome Not Healed -Ulcer Cleansing Rinsed/ Irrigated with Saline -Foul Odor after Cleansing No -Bioengineered Tissue No -Bleeding Controlled with NA -Offloading No -Type of Offloading Surgical Shoe -Treatment Response Procedure Tolerated Well [See Physician Procedure note for Specifics] Pain Scale: 0-10 Numeric [Pain] -Is Patient Pain Free? Yes Psych/Mental Status: Normal Affect, Appropriate Debridement Note Post-Debridement Measurements/Treatment WC - Nurse 2 - General Ulcer CM Notes Start: 06/20/18 13:51 Freq: Status: Active Protocol: Activity Type Activity Date Activity User E-Sign Co-Sign Detail Recorded Client Recorded Date Recorded By Document 06/20/18 14:29 [id number] 06/20/18 14:45 CS 06/20/18 14:29 Wound Center Nurse 2 #4 RIGHT ACHILLES -Time 14:32 -Correct Patient Yes -Correct Side, Site, Position Yes -Correct Procedure Yes -Procedure Performed Yes -Type of Procedure Debridement -Clinical Debridement Subcutaneous -Post Debridement Size (cm) - Length 1 -Post Debridement Size (cm) - Width 1 -Post Debridement Size (cm) - Depth 0.2 -Total Square Cm 1 -Wound/Ulcer Outcome Not Healed -Ulcer Cleansing Rinsed/ Irrigated with Saline -Foul Odor after Cleansing No -Bioengineered Tissue No -Bleeding Controlled with NA -Offloading Yes -Type of Offloading Surgical Shoe -Treatment Response Procedure Tolerated Well #3 Right Medial Whitney -Time 14:32 -Correct Patient Yes -Correct Side, Site, Position Yes -Correct Procedure Yes -Procedure Performed Yes -Type of Procedure Debridement -Clinical Debridement Subcutaneous -Post Debridement Size (cm) - Length 0.7 -Post Debridement Size (cm) - Width 0.2 -Post Debridement Size (cm) - Depth 0.1 -Total Square Cm 0.14 -Wound/Ulcer Outcome Not Healed -Ulcer Cleansing Rinsed/ Irrigated with Saline -Foul Odor after Cleansing No -Bioengineered Tissue No -Bleeding Controlled with NA -Offloading No -Type of Offloading Surgical Shoe #2 R Heel -Time 14:33 -Correct Patient Yes -Correct Side, Site, Position Yes -Correct Procedure Yes -Procedure Performed Yes -Type of Procedure Debridement -Clinical Debridement Subcutaneous -Post Debridement Size (cm) - Length 1.2 -Post Debridement Size (cm) - Width 1.1 -Post Debridement Size (cm) - Depth 0.4 -Total Square Cm 1.32 -Wound/Ulcer Outcome Not Healed -Ulcer Cleansing Rinsed/ Irrigated with Saline -Foul Odor after Cleansing No -Bioengineered Tissue No -Bleeding Controlled with NA -Offloading No -Type of Offloading Surgical Shoe -Treatment Response Procedure Tolerated Well Pain Scale: 0-10 Numeric Is Patient Pain Free? Yes Wound debrided: right Achilles Laterality: Right Wound Grade/Stage: Valdez grade 2 Type of Debridement: Excisional debridement Anesthesia Used: 4% Lidocaine Solution, 5% Lidocaine Gel Depth: Down to and including healthy tissue, in the subcutaneous layer Percentage of wound debrided: 100 Instrument Used: 5mm curette Tissue Removed: yellow slough, devitalized tissue Severity: Fat Layer Exposed Amount of bleeding with debridement: Mild Bleeding Controlled with: Compression and gauze Patient tolerated procedure well - Additional Wound Wound debrided: right medial whitney Laterality: Right Type of Debridement: Excisional debridement Anesthesia Used: 4% Lidocaine Solution, 5% Lidocaine Gel Depth: Down to and including healthy tissue, in the subcutaneous layer Percentage of wound debrided: 100 Instrument Used: 5mm curette Tissue Removed: yellow slough, devitalized tissue Severity: Fat Layer Exposed Amount of bleeding with debridement: Mild Bleeding Controlled with: Pressure Patient tolerated procedure: Patient tolerated procedure well - Additional Wound Wound debrided: right heel Laterality: Right Wound Grade/Stage: Valdez grade 2 Type of Debridement: Excisional debridement Anesthesia Used: 4% Lidocaine Solution, 5% Lidocaine Gel Depth: Down to and including healthy tissue, in the subcutaneous layer Percentage of wound debrided: 100 Instrument Used: 5mm curette Tissue Removed: yellow slough, devitalized tissue Severity: Fat Layer Exposed Amount of bleeding with debridement: Mild Bleeding Controlled with: Compression and gauze Patient tolerated procedure: Patient tolerated procedure well Assessment/Plan Active Problems Type 2 diabetes, uncontrolled, with ulcer of heel (Chronic) Venous ulcer of right lower extremity without varicose veins (Chronic) Peripheral vascular disease (Chronic) Type II diabetes mellitus (Chronic) Assessment: 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 Diabetes mellitus - uncontrolled. Peripheral vascular disease - status post revascularization but re-occlusion. right whitney venous ulcer Plan: Gibson's wounds were evaluated and debrided today. There is mild improvement in his ulcers, will continue to dress with Aquacel. He has had difficulty with tolerating debridement due to severe pain. Could consider injection with local anesthetic. Records from vascular have been reviewed and it appears that Dr. Navas recommended a SFA-ant. tib. bypass for his right leg but this has not been done. Discussed offloading importance and gave him a surgical shoe to wear to offload his heel. Discuss TCC but he refuses at this time. Single layer tubigrip compression advised if he can tolerate this, avoidance of idle standing or sitting with legs hanging down. Encouraged improved control of his blood sugars. Encouraged him to seek consultation with pain management for his pain and gave him a 7 day RX (#56) for tramadol to use for pain as needed on 06/13/18. [place] checked and appropriate. Encouarged to call with increased drainage, redness or fever or chills. Will f/u in 1 week.
--- NOTE | 2018-06-20 18:36 | PN.PCM_ITS ---
(1) Type 2 diabetes, uncontrolled, with ulcer of heel Status: Chronic Current Visit: Yes Code(s): E11.621 - Type 2 diabetes mellitus with foot ulcer; E11.65 - Type 2 diabetes mellitus with hyperglycemia; L97.409 - Non-pressure chronic ulcer of unspecified heel and midfoot with unspecified severity (2) Venous ulcer of right lower extremity without varicose veins Status: Chronic Current Visit: Yes Code(s): I87.2 - Venous insufficiency (chronic) (peripheral); L97.919 - Non-pressure chronic ulcer of unspecified part of right lower leg with unspecified severity (3) Peripheral vascular disease Status: Chronic Current Visit: Yes Code(s): I73.9 - Peripheral vascular disease, unspecified (4) Type II diabetes mellitus Status: Chronic Current Visit: Yes Qualifiers: Diabetes mellitus terminal supervisor insulin use: without terminal supervisor use Diabetes mellitus complication status: with skin complications Diabetes mellitus complication detail: with foot ulcer Qualified Code(s): E11.621 - Type 2 diabetes mellitus with foot ulcer; L97.509 - Non-pressure chronic ulcer of other part of unspecified foot with unspecified severity Code(s): E11.9 - Type 2 diabetes mellitus without complications Type of Wound Date of Service: 06/20/18 Chief Complaint: Nonhealing ulcer right heel and whitney History of Wound: This 68-year-old male is here for evaluation of an ulcer of his right heel and his right whitney. He states that he has had an ulcer approx. 5 years ago of this same heel and was treated here and was healed after vascular interventions by Dr. Navas. He has noticed increased pain in his heel for the last few months and approx. 5 weeks ago he noted an open wound to his right heel. He was using gauze but this started to irritate his skin and has been using silvadene and adaptic to the wound with tape for the last few weeks. He has not had any treatment with antibiotics for the wound. He is self-referred for treatment here. He does follow with Dr. 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 He has had procedures for his arterial disease in past to both of his lower extremities. From review of records it seems that Dr. Navas planned to do a right SFA-ant. tib bypass but it does not appear that this was done and patient denies having any bypass procedures other than his heart. It sounds like he is trying alternative treatments with supplements and chelation therapy. He also has diabetes and his last A1C several months ago was 7.2% but he stopped glyburide because he felt it was causing blisters of his legs. He does wear mal betic shoes. He has been undergoing chelation treatments by Dr. German in [place]. Dr. German prescribed him oxycodone-APAP 5/325 mg #60 which were filled on 05/22/18 for pain, he has six tablets left from this prescription, and he is asking for pain medication to treat pain from debridement. He reports having xrays done several months ago of his right heel due to pain which did not show any osteomyelitis or acute fractures. He denies fever, chills, erythema or heavy drainage. He reports significant pain and discomfort of his right heel and his entire right leg which no one can explain. Progress of Wound: Gibson is here to follow up for nonhealing ulcers of his right foot. He tolerated the dressings but did not tolerate compression with tubigrip. He had severe pain until starting antibiotics on Saturday for positive wound culture. He is tolerating antibiotics. He has been trying to elevate his foot and has been using his surgical shoe to offload as well. Denies fever or chills or increased drainage. - Physical Exam Vital Signs Temp Pulse Resp BP 97.8 F 73 18 165/84 H 06/20/18 13:51 06/20/18 13:51 06/20/18 13:51 06/20/18 13:51 General: Alert, Oriented x3, Cooperative, No apparent distress HEENT: Atraumatic, Normocephalic Oral: Dry Mucosa Extremities: Edema Skin: Ulcer/ Wound Wound Measurements and Assessment WC - Nurse 1 - General Ulcer Measurement Start: 06/20/18 13:51 Freq: Status: Active Protocol: Activity Type Activity Date Activity User E-Sign Co-Sign Detail Recorded Client Recorded Date Recorded By Document 06/20/18 13:51 [place] [id number] 06/20/18 13:57 [place] 06/20/18 13:51 Wound Center Nurse 1 [Ulcer Assessment] #4 RIGHT ACHILLES -Combined with other wound No -Current Size (cm) - Length 0.7 -Current Size (cm) - Width 0.9 -Current Size (cm) - Depth 0.3 -Total Square Cm 0.63 -Photo Taken No -Tunneling No -Undermining/Tunneling No -Circular Undermining No -Exudate Amt Small (1-33%) -Exudate Type Serosanguineous -Wound Margin Thickened & Rolled Under -Granulation Amt Small (1-33%) -Granulation Quality [place] -Slough/Fibrin Yes -Necrosis Amt Large (67-100%) -Necrotic Tissue Type Adherent Slough -Texture (Shahana-wound Skin Appearance) Assessed -Moisture (Shahana-wound Skin Appearance Assessed ) Maceration -Color (Shahana-wound Skin Appearance) Assessed Erythema -Temperature (Shahana-wound Skin No Abnormality Appearance) (Pt Warm) -Tenderness on Palpation (Shahana-wound No Skin Appearance) -Ulcer Cleansing Rinsed/ Irrigated with Saline -Foul Odor after Cleansing No -Anesthetic Used 4% Lidocaine Solution #3 Right Medial Whitney -Current Size (cm) - Length 0.1 -Current Size (cm) - Width 0.1 -Current Size (cm) - Depth 0.1 -Total Square Cm 0.01 -Texture (Shahana-wound Skin Appearance) Assessed -Moisture (Shahana-wound Skin Appearance Assessed ) -Color (Shahana-wound Skin Appearance) Assessed -Temperature (Shahana-wound Skin No Abnormality Appearance) (Pt Warm) -Tenderness on Palpation (Shahana-wound No Skin Appearance) -Ulcer Cleansing Rinsed/ Irrigated with Saline -Foul Odor after Cleansing No -Anesthetic Used 4% Lidocaine Solution #2 R Heel -Combined with other wound No -Current Size (cm) - Length 1.1 -Current Size (cm) - Width 1 -Current Size (cm) - Depth 0.3 -Total Square Cm 1.1 -Photo Taken No -Tunneling No -Undermining/Tunneling No -Circular Undermining No -Exudate Amt Small (1-33%) -Exudate Type Serosanguineous -Wound Margin Thickened & Rolled Under -Granulation Amt Medium (34-66%) -Granulation Quality [place] -Necrosis Amt Medium (34-66%) -Necrotic Tissue Type Adherent Slough -Texture (Shahana-wound Skin Appearance) Assessed Scarring -Moisture (Shahana-wound Skin Appearance Assessed ) -Color (Shahana-wound Skin Appearance) Assessed -Temperature (Shahana-wound Skin No Abnormality Appearance) (Pt Warm) -Tenderness on Palpation (Shahana-wound Yes Skin Appearance) -Ulcer Cleansing Rinsed/ Irrigated with Saline -Foul Odor after Cleansing No -Anesthetic Used 4% Lidocaine Solution [Edema Assessment] -Right Calf (cm) 34 -Right Ankle (cm) 22.1 WC - Nurse 2 - General Ulcer CM Notes Start: 06/20/18 13:51 Freq: Status: Active Protocol: Activity Type Activity Date Activity User E-Sign Co-Sign Detail Recorded Client Recorded Date Recorded By Document 06/20/18 14:29 [id number] 06/20/18 14:45 06/20/18 14:29 Wound Center Nurse 2 [Procedure/Treatment] #4 RIGHT ACHILLES -Time 14:32 -Correct Patient Yes -Correct Side, Site, Position Yes -Correct Procedure Yes -Procedure Performed Yes -Type of Procedure Debridement -Clinical Debridement Subcutaneous -Post Debridement Size (cm) - Length 1 -Post Debridement Size (cm) - Width 1 -Post Debridement Size (cm) - Depth 0.2 -Total Square Cm 1 -Wound/Ulcer Outcome Not Healed -Ulcer Cleansing Rinsed/ Irrigated with Saline -Foul Odor after Cleansing No -Bioengineered Tissue No -Bleeding Controlled with NA -Offloading Yes -Type of Offloading Surgical Shoe -Treatment Response Procedure Tolerated Well #3 Right Medial Whitney -Time 14:32 -Correct Patient Yes -Correct Side, Site, Position Yes -Correct Procedure Yes -Procedure Performed Yes -Type of Procedure Debridement -Clinical Debridement Subcutaneous -Post Debridement Size (cm) - Length 0.7 -Post Debridement Size (cm) - Width 0.2 -Post Debridement Size (cm) - Depth 0.1 -Total Square Cm 0.14 -Wound/Ulcer Outcome Not Healed -Ulcer Cleansing Rinsed/ Irrigated with Saline -Foul Odor after Cleansing No -Bioengineered Tissue No -Bleeding Controlled with NA -Offloading No -Type of Offloading Surgical Shoe #2 R Heel -Time 14:33 -Correct Patient Yes -Correct Side, Site, Position Yes -Correct Procedure Yes -Procedure Performed Yes -Type of Procedure Debridement -Clinical Debridement Subcutaneous -Post Debridement Size (cm) - Length 1.2 -Post Debridement Size (cm) - Width 1.1 -Post Debridement Size (cm) - Depth 0.4 -Total Square Cm 1.32 -Wound/Ulcer Outcome Not Healed -Ulcer Cleansing Rinsed/ Irrigated with Saline -Foul Odor after Cleansing No -Bioengineered Tissue No -Bleeding Controlled with NA -Offloading No -Type of Offloading Surgical Shoe -Treatment Response Procedure Tolerated Well [See Physician Procedure note for Specifics] Pain Scale: 0-10 Numeric [Pain] -Is Patient Pain Free? Yes Psych/Mental Status: Normal Affect, Appropriate Debridement Note Post-Debridement Measurements/Treatment WC - Nurse 2 - General Ulcer CM Notes Start: 06/20/18 13:51 Freq: Status: Active Protocol: Activity Type Activity Date Activity User E-Sign Co-Sign Detail Recorded Client Recorded Date Recorded By Document 06/20/18 14:29 CS [id number] 06/20/18 14:45 CS 06/20/18 14:29 Wound Center Nurse 2 #4 RIGHT ACHILLES -Time 14:32 -Correct Patient Yes -Correct Side, Site, Position Yes -Correct Procedure Yes -Procedure Performed Yes -Type of Procedure Debridement -Clinical Debridement Subcutaneous -Post Debridement Size (cm) - Length 1 -Post Debridement Size (cm) - Width 1 -Post Debridement Size (cm) - Depth 0.2 -Total Square Cm 1 -Wound/Ulcer Outcome Not Healed -Ulcer Cleansing Rinsed/ Irrigated with Saline -Foul Odor after Cleansing No -Bioengineered Tissue No -Bleeding Controlled with NA -Offloading Yes -Type of Offloading Surgical Shoe -Treatment Response Procedure Tolerated Well #3 Right Medial Whitney -Time 14:32 -Correct Patient Yes -Correct Side, Site, Position Yes -Correct Procedure Yes -Procedure Performed Yes -Type of Procedure Debridement -Clinical Debridement Subcutaneous -Post Debridement Size (cm) - Length 0.7 -Post Debridement Size (cm) - Width 0.2 -Post Debridement Size (cm) - Depth 0.1 -Total Square Cm 0.14 -Wound/Ulcer Outcome Not Healed -Ulcer Cleansing Rinsed/ Irrigated with Saline -Foul Odor after Cleansing No -Bioengineered Tissue No -Bleeding Controlled with NA -Offloading No -Type of Offloading Surgical Shoe #2 R Heel -Time 14:33 -Correct Patient Yes -Correct Side, Site, Position Yes -Correct Procedure Yes -Procedure Performed Yes -Type of Procedure Debridement -Clinical Debridement Subcutaneous -Post Debridement Size (cm) - Length 1.2 -Post Debridement Size (cm) - Width 1.1 -Post Debridement Size (cm) - Depth 0.4 -Total Square Cm 1.32 -Wound/Ulcer Outcome Not Healed -Ulcer Cleansing Rinsed/ Irrigated with Saline -Foul Odor after Cleansing No -Bioengineered Tissue No -Bleeding Controlled with NA -Offloading No -Type of Offloading Surgical Shoe -Treatment Response Procedure Tolerated Well Pain Scale: 0-10 Numeric Is Patient Pain Free? Yes Wound debrided: right Achilles Laterality: Right Wound Grade/Stage: Valdez grade 2 Type of Debridement: Excisional debridement Anesthesia Used: 4% Lidocaine Solution, 5% Lidocaine Gel Depth: Down to and including healthy tissue, in the subcutaneous layer Percentage of wound debrided: 100 Instrument Used: 5mm curette Tissue Removed: yellow slough, devitalized tissue Severity: Fat Layer Exposed Amount of bleeding with debridement: Mild Bleeding Controlled with: Compression and gauze Patient tolerated procedure well - Additional Wound Wound debrided: right medial whitney Laterality: Right Type of Debridement: Excisional debridement Anesthesia Used: 4% Lidocaine Solution, 5% Lidocaine Gel Depth: Down to and including healthy tissue, in the subcutaneous layer Percentage of wound debrided: 100 Instrument Used: 5mm curette Tissue Removed: yellow slough, devitalized tissue Severity: Fat Layer Exposed Amount of bleeding with debridement: Mild Bleeding Controlled with: Pressure Patient tolerated procedure: Patient tolerated procedure well - Additional Wound Wound debrided: right heel Laterality: Right Wound Grade/Stage: Valdez grade 2 Type of Debridement: Excisional debridement Anesthesia Used: 4% Lidocaine Solution, 5% Lidocaine Gel Depth: Down to and including healthy tissue, in the subcutaneous layer Percentage of wound debrided: 100 Instrument Used: 5mm curette Tissue Removed: yellow slough, devitalized tissue Severity: Fat Layer Exposed Amount of bleeding with debridement: Mild Bleeding Controlled with: Compression and gauze Patient tolerated procedure: Patient tolerated procedure well Assessment/Plan Active Problems Type 2 diabetes, uncontrolled, with ulcer of heel (Chronic) Venous ulcer of right lower extremity without varicose veins (Chronic) Peripheral vascular disease (Chronic) Type II diabetes mellitus (Chronic) Assessment: 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 Diabetes mellitus - uncontrolled. Peripheral vascular disease - status post revascularization but re-occlusion. right whitney venous ulcer Plan: Gibson's wounds were evaluated and debrided today. There is mild improvement in his ulcers, will continue to dress with Aquacel. He has had difficulty with tolerating debridement due to severe pain. Could consider injection with local anesthetic. Records from vascular have been reviewed and it appears that Dr. Navas recommended a SFA-ant. tib. bypass for his right leg but this has not been done. Discussed offloading importance and gave him a surgical shoe to wear to offload his heel. Discuss TCC but he refuses at this time. Single layer tubigrip compression advised if he can tolerate this, avoidance of idle standing or sitting with legs hanging down. Encouraged improved control of his blood sugars. Encouraged him to seek consultation with pain management for his pain and gave him a 7 day RX (#56) for tramadol to use for pain as needed on 06/13/18. [place]ARRS checked and appropriate. Encouarged to call with increased drainage, redness or fever or chills. Will f/u in 1 week.
[2018-06-27 11:36] VITALS: BP 143/80; PULSE 73; RESP 16; TEMP 36.6; BMI 27.3
--- NOTE | 2018-06-27 13:00 | RAD_ITS ---
HISTORY: PATIENT STATES HE HAD VEIN SURGERY IN HIS RIGHT LOWER LEG 6 WEEKS AGO FOR CIRCULATION. NOW FOR THE PAST 3 WEEKS HE HAS BEEN FIGHTING AN OPEN WOUND IN HIS RIGHT HEEL. COMPARISON: Right foot x-ray 02/08/2014 FINDINGS: XR right ankle 3 views Generalized bony mineralization. As correlated with a history, the bony mineralization I reflect disuse osteoporosis. Reflex sympathetic dystrophy is also a consideration Surgical clips at the medial aspect of the lower right leg which correlates with the surgical history. No fracture or acute osseous abnormality. The tibiotalar joint space appears preserved. Posterior calcaneal spur without significant change. No bone destruction or periosteal bone thickening to suggest osteomyelitis. Atherosclerotic calcifications. RAD/Ankle min 3 Views IMPRESSION: 1. 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 2. Mild diffuse soft tissue swelling. Right leg postsurgical change. 3. No fracture or acute osseous abnormality. 4. Chronic findings include atherosclerotic calcification sent posterior calcaneal spur. at 0616 Reported and signed by: Gurdeep Ruggiero MD Electronically Signed: Gurdeep Ruggiero, at 6:15 EST Tel , Service support ,
--- NOTE | 2018-06-27 13:13 | RAD_ITS ---
HISTORY: PATIENT STATES HE HAD VEIN SURGERY IN HIS RIGHT LOWER LEG 6 WEEKS AGO FOR CIRCULATION. NOW FOR THE PAST 3 WEEKS HE HAS BEEN FIGHTING AN OPEN WOUND IN HIS RIGHT HEEL. COMPARISON: 02/08/2014 FINDINGS: XR right foot 3 views Generalized bony demineralization which may reflect disuse osteoporosis. Reflex sympathetic dystrophy would also be included in the differential. No fracture or instability. 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 This deformity is unchanged. Posterior calcaneal spur, unchanged. No bone destruction or suspicious periosteal bone thickening to suggest osteomyelitis. The plantar arch is maintained. Atherosclerotic calcifications. No radiopaque foreign body at the foot. RAD/Foot min 3 Views IMPRESSION: 1. Generalized bony demineralization in keeping with disuse osteoporosis or possibly reflex sympathetic dystrophy (complex regional pain syndrome). 2. No fracture or osteomyelitis. 3. Chronic deformities of the great toe and second metatarsal head. Details above. at 0807 Reported and signed by: Gurdeep Ruggiero MD Electronically Signed: Gurdeep Ruggiero, at 8:06 EST Tel , Service support ,
--- NOTE | 2018-06-27 15:17 | PCM.WC.PN ---
(1) Type 2 diabetes, uncontrolled, with ulcer of heel Status: Chronic Current Visit: Yes Code(s): E11.621 - Type 2 diabetes mellitus with foot ulcer; E11.65 - Type 2 diabetes mellitus with hyperglycemia; L97.409 - Non-pressure chronic ulcer of unspecified heel and midfoot with unspecified severity (2) Venous ulcer of right lower extremity without varicose veins Status: Chronic Current Visit: Yes Code(s): I87.2 - Venous insufficiency (chronic) (peripheral); L97.919 - Non-pressure chronic ulcer of unspecified part of right lower leg with unspecified severity (3) Peripheral vascular disease Status: Chronic Current Visit: Yes Code(s): I73.9 - Peripheral vascular disease, unspecified (4) Type II diabetes mellitus Status: Chronic Current Visit: Yes 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 He states that he has had an ulcer approx. 5 years ago of this same heel and was treated here and was healed after vascular interventions by Dr. Navas. He has noticed increased pain in his heel for the last few months and approx. 5 weeks ago he noted an open wound to his right heel. He was using gauze but this started to irritate his skin and has been using silvadene and adaptic to the wound with tape for the last few weeks. He has not had any treatment with antibiotics for the wound. He is self-referred for treatment here. He does follow with Dr. 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 He has had procedures for his arterial disease in past to both of his lower extremities. From review of records it seems that Dr. Navas planned to do a right SFA-ant. tib bypass but it does not appear that this was done and patient denies having any bypass procedures other than his heart. It sounds like he is trying alternative treatments with supplements and chelation therapy. He also has diabetes and his last A1C several months ago was 7.2% but he stopped glyburide because he felt it was causing blisters of his legs. He does wear diabetic shoes. He has been undergoing chelation treatments by Dr. German in [place]. Dr. German prescribed him oxycodone-APAP 5/325 mg #60 which were filled on 05/22/18 for pain, he has six tablets left from this prescription, and he is asking for pain medication to treat pain from debridement. He reports having xrays done several months ago of his right heel due to pain which did not show any osteomyelitis or acute fractures. He denies fever, chills, erythema or heavy drainage. He reports significant pain and discomfort of his right heel and his entire right leg which no one can explain. Progress of Wound: Gibson is here to follow up for nonhealing ulcers of his right foot. He tolerated the dressings but is not able to tolerate compression with tubigrip. He continues to have severe pain in his ankle/heel. He is tolerating antibiotics. He has been trying to elevate his foot and has been using his surgical shoe to offload as well. Denies fever or chills or increased drainage. He complains of difficulty urinating and pain with urination as well as increased frequency as well. This started 2 days ago. He has not contacted his PCP regarding these symptoms. - Physical Exam Vital Signs Temp Pulse Resp BP 98 F 73 16 143/80 H 06/27/18 11:36 06/27/18 11:36 06/27/18 11:36 06/27/18 11:36 General: Alert, Oriented x3, Cooperative, No apparent distress HEENT: Atraumatic, Normocephalic Extremities: Edema Skin: Ulcer/ Wound Wound Measurements and Assessment WC - Nurse 1 - General Ulcer Measurement Start: 06/20/18 13:51 Freq: Status: Active Protocol: Activity Type Activity Date Activity User E-Sign Co-Sign Detail Recorded Client Recorded Date Recorded By Document 06/27/18 11:36 [facility] [id number] 06/27/18 11:45 BM 06/27/18 11:36 Wound Center Nurse 1 [Ulcer Assessment] #4 RIGHT ACHILLES -Combined with other wound No -Current Size (cm) - Length 0.5 -Current Size (cm) - Width 0.6 -Current Size (cm) - Depth 0.1 -Total Square Cm 0.30 -Photo Taken No -Tunneling No -Undermining/Tunneling No -Circular Undermining No -Exudate Amt Small -Exudate Type Serosanguineous -Wound Margin Flat & Intact -Granulation Amt None Present (0 %) -Slough/Fibrin Yes -Necrosis Amt Large (67-100%) -Necrotic Tissue Type Adherent Slough -Texture (Shahana-wound Skin Appearance) Scarring -Moisture (Shahana-wound Skin Appearance Dry/Scaly ) -Color (Shahana-wound Skin Appearance) Assessed -Temperature (Shahana-wound Skin No Abnormality Appearance) (Pt Warm) -Tenderness on Palpation (Shahana-wound No Skin Appearance) -Ulcer Cleansing Rinsed/ Irrigated with Saline -Foul Odor after Cleansing No -Anesthetic Used 4% Lidocaine Solution #3 Right Medial Whitney -Combined with other wound No -Current Size (cm) - Length 0.1 -Current Size (cm) - Width 0.1 -Current Size (cm) - Depth 0.1 -Total Square Cm 0.01 -Date of Last Picture (Recall this 06/27/18 field) -Photo Taken Yes -Epithelialization Large 67-100% -Tunneling No -Undermining/Tunneling No -Circular Undermining No #2 R Heel -Combined with other wound No -Current Size (cm) - Length 1 -Current Size (cm) - Width 0.8 -Current Size (cm) - Depth 0.5 -Total Square Cm 0.8 -Photo Taken No -Epithelialization Small 1-33% -Tunneling No -Undermining/Tunneling No -Circular Undermining No -Exudate Amt Small -Exudate Type Serosanguineous -Wound Margin Flat & Intact -Granulation Amt Small (1-33%) -Granulation Quality Prosser -Slough/Fibrin Yes -Necrosis Amt Medium (34-66%) -Necrotic Tissue Type Adherent Slough -Texture (Shahana-wound Skin Appearance) Callus Scarring -Moisture (Shahana-wound Skin Appearance Maceration ) Dry/Scaly -Color (Shahana-wound Skin Appearance) Assessed Palor -Temperature (Shahana-wound Skin No Abnormality Appearance) (Pt Warm) -Tenderness on Palpation (Shahana-wound Yes Skin Appearance) -Ulcer Cleansing Rinsed/ Irrigated with Saline -Foul Odor after Cleansing No -Anesthetic Used 4% Lidocaine Solution [Edema Assessment] -Lower Limb Edema Present Yes -Right Calf (cm) 33 -Right Ankle (cm) 22.6 WC - Nurse 2 - General Ulcer CM Notes Start: 06/20/18 13:51 Freq: Status: Active Protocol: Activity Type Activity Date Activity User E-Sign Co-Sign Detail Recorded Client Recorded Date Recorded By Document 06/27/18 12:15 [id number] 06/27/18 12:29 06/27/18 12:15 Wound Center Nurse 2 [Procedure/Treatment] #4 RIGHT ACHILLES -Time 12:22 -Correct Patient Yes -Correct Side, Site, Position Yes -Correct Procedure Yes -Procedure Performed Yes -Type of Procedure Debridement -Clinical Debridement Subcutaneous -Post Debridement Size (cm) - Length 0.8 -Post Debridement Size (cm) - Width 0.7 -Post Debridement Size (cm) - Depth 0.3 -Total Square Cm 0.56 -Wound/Ulcer Outcome Not Healed -Ulcer Cleansing Rinsed/ Irrigated with Saline -Foul Odor after Cleansing No -Bioengineered Tissue No -Bleeding Controlled with NA -Offloading No -Type of Offloading Surgical Shoe -Treatment Response Procedure Tolerated Well #3 Right Medial Whitney -Time 12:21 -Post Debridement Size (cm) - Length 0 -Post Debridement Size (cm) - Width 0 -Post Debridement Size (cm) - Depth 0 -Total Square Cm 0 -Wound/Ulcer Outcome Healed- Epithelialized #2 R Heel -Time 12:22 -Correct Patient Yes -Correct Side, Site, Position Yes -Correct Procedure Yes -Procedure Performed Yes -Type of Procedure Debridement -Clinical Debridement Subcutaneous -Post Debridement Size (cm) - Length 1.0 -Post Debridement Size (cm) - Width 1.1 -Post Debridement Size (cm) - Depth 0.3 -Total Square Cm 1.10 -Wound/Ulcer Outcome Not Healed -Ulcer Cleansing Rinsed/ Irrigated with Saline -Foul Odor after Cleansing No -Bioengineered Tissue No -Bleeding Controlled with NA -Offloading No -Type of Offloading Surgical Shoe -Treatment Response Procedure Tolerated Well [See Physician Procedure note for Specifics] Pain Scale: 0-10 Numeric [Pain] -Is Patient Pain Free? No Psych/Mental Status: Normal Affect, Appropriate Debridement Note Post-Debridement Measurements/Treatment WC - Nurse 2 - General Ulcer CM Notes Start: 06/20/18 13:51 Freq: Status: Active Protocol: Activity Type Activity Date Activity User E-Sign Co-Sign Detail Recorded Client Recorded Date Recorded By Document 06/20/18 14:29 [id number] 06/20/18 14:45 CS Document 06/27/18 12:15 CS [id number] 06/27/18 12:29 CS 06/20/18 06/27/18 14:29 12:15 Wound Center Nurse 2 #4 RIGHT ACHILLES -Time 14:32 12:22 -Correct Patient Yes Yes -Correct Side, Site, Position Yes Yes -Correct Procedure Yes Yes -Procedure Performed Yes Yes -Type of Procedure Debridement Debridement -Clinical Debridement Subcutaneous Subcutaneous -Post Debridement Size (cm) - Length 1 0.8 -Post Debridement Size (cm) - Width 1 0.7 -Post Debridement Size (cm) - Depth 0.2 0.3 -Total Square Cm 1 0.56 -Wound/Ulcer Outcome Not Healed Not Healed -Ulcer Cleansing Rinsed/ Rinsed/ Irrigated with Irrigated with Saline Saline -Foul Odor after Cleansing No No -Bioengineered Tissue No No -Bleeding Controlled with NA NA -Offloading Yes No -Type of Offloading Surgical Shoe Surgical Shoe -Treatment Response Procedure Procedure Tolerated Well Tolerated Well #3 Right Medial Whitney -Time 14:32 12:21 -Correct Patient Yes -Correct Side, Site, Position Yes -Correct Procedure Yes -Procedure Performed Yes -Type of Procedure Debridement -Clinical Debridement Subcutaneous -Post Debridement Size (cm) - Length 0.7 0 -Post Debridement Size (cm) - Width 0.2 0 -Post Debridement Size (cm) - Depth 0.1 0 -Total Square Cm 0.14 0 -Wound/Ulcer Outcome Not Healed Healed- Epithelialized -Ulcer Cleansing Rinsed/ Irrigated with Saline -Foul Odor after Cleansing No -Bioengineered Tissue No -Bleeding Controlled with NA -Offloading No -Type of Offloading Surgical Shoe #2 R Heel -Time 14:33 12:22 -Correct Patient Yes Yes -Correct Side, Site, Position Yes Yes -Correct Procedure Yes Yes -Procedure Performed Yes Yes -Type of Procedure Debridement Debridement -Clinical Debridement Subcutaneous Subcutaneous -Post Debridement Size (cm) - Length 1.2 1.0 -Post Debridement Size (cm) - Width 1.1 1.1 -Post Debridement Size (cm) - Depth 0.4 0.3 -Total Square Cm 1.32 1.10 -Wound/Ulcer Outcome Not Healed Not Healed -Ulcer Cleansing Rinsed/ Rinsed/ Irrigated with Irrigated with Saline Saline -Foul Odor after Cleansing No No -Bioengineered Tissue No No -Bleeding Controlled with NA NA -Offloading No No -Type of Offloading Surgical Shoe Surgical Shoe -Treatment Response Procedure Procedure Tolerated Well Tolerated Well Pain Scale: 0-10 Numeric Is Patient Pain Free? Yes No Wound debrided: right medial whitney Laterality: Right No debridement was completed today - ulcer is healed - Additional Wound Wound debrided: Right Achilles Laterality: Right Wound Grade/Stage: Valdez grade 2 Type of Debridement: Excisional debridement Anesthesia Used: 4% Lidocaine Solution, 5% Lidocaine Gel, - - lidocaine 1% with epinephrine Depth: Down to and including healthy tissue, in the subcutaneous layer Percentage of wound debrided: 100 Instrument Used: 5mm curette Tissue Removed: yellow slough, devitalized tissue Severity: Fat Layer Exposed Amount of bleeding with debridement: Mild Bleeding Controlled with: Pressure - Additional Wound Wound debrided: Right heel Laterality: Right Wound Grade/Stage: Valdez stage 2 Type of Debridement: Excisional debridement Anesthesia Used: 4% Lidocaine Solution, 5% Lidocaine Gel, - - Lidocaine 1% with epi Depth: Down to and including healthy tissue, in the subcutaneous layer Percentage of wound debrided: 100 Instrument Used: 5mm curette Tissue Removed: yellow slough, devitalized tissue Severity: Fat Layer Exposed Amount of bleeding with debridement: Mild Bleeding Controlled with: Compression and gauze Patient tolerated procedure: Patient tolerated procedure well Assessment/Plan Active Problems Type 2 diabetes, uncontrolled, with ulcer of heel (Chronic) Venous ulcer of right lower extremity without varicose veins (Chronic) Peripheral vascular disease (Chronic) Type II diabetes mellitus (Chronic) Assessment: 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 Diabetes mellitus - uncontrolled. Peripheral vascular disease - status post revascularization but re-occlusion. right whitney venous ulcer - healed Plan: Nicol ulcers were evaluated and debrided today. There is mild improvement in his ulcers, will continue to dress with Aquacel. He has had difficulty with tolerating debridement due to severe pain. Due to continued pain inhis heel and ankle, xrays were ordered to evaluate for osteomyelitis or fracture of bone. Advised him to call his PCP regarding his urinary issues. Records from vascular have been reviewed and it appears that Dr. Navas recommended a SFA-ant. tib. bypass for his right leg but this has not been done. Discussed offloading importance and gave him a surgical shoe to wear to offload his heel. Discuss TCC but he refuses at this time. Single layer tubigrip compression advised if he can tolerate this, avoidance of idle standing or sitting with legs hanging down. Encouraged improved control of his blood sugars. Encouraged him to seek consultation with pain management for his pain and gave him a 7 day RX (#56) for tramadol to use for pain as needed on 06/13/18. OARRS checked and appropriate. Encouarged to call with increased drainage, redness or fever or chills. Will f/u in 1 week.
--- NOTE | 2018-07-01 14:55 | WC ---
10:00 AM: This nurse returned call to Mr. Rodriguez in which he asked if recultured his wound on his last visit here at the wound center. He informed this me that when he visited his holistic doctor on 06/30/18 for chelate infusion, he requested that that doctor look at his wounds because he was experiencing a great deal of pain again and was concerned the wounds were infected. Upon pulling his chart, I was told he is still taking what was prescribed by Dr. Silva and had 1-2 days left until completed. The doctor seen yesterday stated that the wounds indeed looked infected and prescribed Cipro. Speaking now with the who manages his wound care, I was informed that Mr. Rodriguez's open ulcers looked good with no signs of drainage, purulent discharge, and no reddness around the ulcers. She stated that her has not had a fever nor complained of anything that would lead her to believe he still have an infection- again she stated his wounds looked good to her without any signs of infection. In speaking again with Mr. Rodriguez, I informed him that he needs to make up his mind on whom he would like to treat his open ulcers because he cannot have them being treated by two different physicians. I also informed him that Dr. Silva would not reculture his wounds with him only being on an ATB for 8 days. He has a FU appt on Saturday the [address] Silva. He agreed that he will wait to see her and only questioned his treatment because the other doctor prescribed an ATB and as stated prior in this note, stated his wounds looked infected...Natividad Luna RN
[2018-07-04 14:40] VITALS: BP 139/73; PULSE 78; RESP 16; TEMP 36.2; BMI 27.3
--- NOTE | 2018-07-04 17:46 | PCM.WC.PN ---
(1) Type 2 diabetes, uncontrolled, with ulcer of heel Status: Chronic Current Visit: Yes Code(s): E11.621 - Type 2 diabetes mellitus with foot ulcer; E11.65 - Type 2 diabetes mellitus with hyperglycemia; L97.409 - Non-pressure chronic ulcer of unspecified heel and midfoot with unspecified severity (2) Venous ulcer of right lower extremity without varicose veins Status: Chronic Current Visit: Yes Code(s): I87.2 - Venous insufficiency (chronic) (peripheral); L97.919 - Non-pressure chronic ulcer of unspecified part of right lower leg with unspecified severity (3) Peripheral vascular disease Status: Chronic Current Visit: Yes Code(s): I73.9 - Peripheral vascular disease, unspecified (4) Type II diabetes mellitus Status: Chronic Current Visit: Yes Qualifiers: Diabetes mellitus termination clerk insulin use: without termination clerk use Diabetes mellitus complication status: with skin complications Diabetes mellitus complication detail: with foot ulcer Qualified Code(s): E11.621 - Type 2 diabetes mellitus with foot ulcer; L97.509 - Non-pressure chronic ulcer of other part of unspecified foot with unspecified severity Code(s): E11.9 - Type 2 diabetes mellitus without complications Type of Wound Date of Service: 07/04/18 Chief Complaint: Nonhealing ulcers right heel History of Wound: This 68-year-old male is here for evaluation of an ulcer of his right heel and his right whitney. He states that he has had an ulcer approx. 5 years ago of this same heel and was treated here and was healed after vascular interventions by Dr. Navas. He has noticed increased pain in his heel for the last few months and approx. 5 weeks ago he noted an open wound to his right heel. He was using gauze but this started to irritate his skin and has been using silvadene and adaptic to the wound with tape for the last few weeks. He has not had any treatment with antibiotics for the wound. He is self-referred for treatment here. He does follow with Dr. 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 He has had procedures for his arterial disease in past to both of his lower extremities. From review of records it seems that Dr. Navas planned to do a right SFA-ant. tib bypass but it does not appear that this was done and patient denies having any bypass procedures other than his heart. It sounds like he is trying alternative treatments with supplements and chelation therapy. He also has diabetes and his last A1C several months ago was 7.2% but he stopped glyburide because he felt it was causing blisters of his legs. He does wear diabetic shoes. He has been undergoing chelation treatments by Dr. German in [place]. Dr. German prescribed him oxycodone-APAP 5/325 mg #60 which were filled on 05/22/18 for pain, he has six tablets left from this prescription, and he is asking for pain medication to treat pain from debridement. He reports having xrays done several months ago of his right heel due to pain which did not show any osteomyelitis or acute fractures. He denies fever, chills, erythema or heavy drainage. He reports significant pain and discomfort of his right heel and his entire right leg which no one can explain. Progress of Wound: Gibson is here to follow up for nonhealing ulcers of his right foot. He tolerated the dressings but is not able to tolerate compression with tubigrip. He continues to have severe pain in his ankle/heel. He completed antibiotics but had worsening pain prior to completion. He has been trying to elevate his foot and has been using his surgical shoe to offload as well. Denies fever or chills or increased drainage. - Physical Exam Vital Signs Temp Pulse Resp BP 97.1 F L 78 16 139/73 H 07/04/18 14:40 07/04/18 14:40 07/04/18 14:40 07/04/18 14:40 General: Alert, Oriented x3, Cooperative, No apparent distress HEENT: Atraumatic, Normocephalic Extremities: Edema Skin: Ulcer/ Wound Wound Measurements and Assessment WC - Nurse 1 - General Ulcer Measurement Start: 06/20/18 13:51 Freq: Status: Active Protocol: Activity Type Activity Date Activity User E-Sign Co-Sign Detail Recorded Client Recorded Date Recorded By Document 07/04/18 14:40 MW [id number] 07/04/18 14:50 MW 07/04/18 14:40 Wound Center Nurse 1 [Ulcer Assessment] #4 RIGHT ACHILLES -Combined with other wound No -Current Size (cm) - Length 0.6 -Current Size (cm) - Width 0.8 -Current Size (cm) - Depth 0.2 -Total Square Cm 0.48 -Photo Taken No -Epithelialization None Present -Tunneling No -Undermining/Tunneling No -Circular Undermining No -Exudate Amt Small -Exudate Type Serous -Wound Margin Flat & Intact -Granulation Amt None Present (0 %) -Slough/Fibrin Yes -Necrosis Amt Large (67-100%) -Necrotic Tissue Type Adherent Slough -Texture (Shahana-wound Skin Appearance) Scarring -Moisture (Shahana-wound Skin Appearance Dry/Scaly ) -Color (Shahana-wound Skin Appearance) Assessed -Temperature (Shahana-wound Skin No Abnormality Appearance) (Pt Warm) -Tenderness on Palpation (Shahana-wound Yes Skin Appearance) -Ulcer Cleansing Rinsed/ Irrigated with Saline -Foul Odor after Cleansing No -Anesthetic Used 5% Lidocaine Gel #2 R Heel -Combined with other wound No -Current Size (cm) - Length 0.9 -Current Size (cm) - Width 0.8 -Current Size (cm) - Depth 0.2 -Total Square Cm 0.72 -Photo Taken No -Epithelialization None Present -Tunneling No -Undermining/Tunneling No -Circular Undermining No -Exudate Amt Small -Exudate Type Serous -Wound Margin Flat & Intact -Granulation Amt Medium (34-66%) -Granulation Quality [place] -Slough/Fibrin Yes -Necrosis Amt Medium (34-66%) -Necrotic Tissue Type Adherent Slough -Texture (Shahana-wound Skin Appearance) Scarring -Moisture (Shahana-wound Skin Appearance Dry/Scaly ) -Color (Shahana-wound Skin Appearance) Assessed Erythema -Temperature (Shahana-wound Skin No Abnormality Appearance) (Pt Warm) -Tenderness on Palpation (Shahana-wound Yes Skin Appearance) -Ulcer Cleansing Rinsed/ Irrigated with Saline -Foul Odor after Cleansing No -Anesthetic Used 5% Lidocaine Gel [Edema Assessment] -Lower Limb Edema Present Yes -Right Calf (cm) 33.5 -Right Ankle (cm) 23.5 WC - Nurse 2 - General Ulcer CM Notes Start: 06/20/18 13:51 Freq: Status: Active Protocol: Activity Type Activity Date Activity User E-Sign Co-Sign Detail Recorded Client Recorded Date Recorded By Document 07/04/18 15:13 [id number] 07/04/18 15:25 CS 07/04/18 15:13 Wound Center Nurse 2 [Procedure/Treatment] #4 RIGHT ACHILLES -Time 15:13 -Correct Patient Yes -Correct Side, Site, Position Yes -Correct Procedure Yes -Procedure Performed Yes -Type of Procedure Debridement -Clinical Debridement Subcutaneous -Post Debridement Size (cm) - Length 0.7 -Post Debridement Size (cm) - Width 0.7 -Post Debridement Size (cm) - Depth 0.3 -Total Square Cm 0.49 -Wound/Ulcer Outcome Not Healed -Ulcer Cleansing Not Cleansed -Foul Odor after Cleansing No -Bioengineered Tissue No -Bleeding Controlled with NA -Offloading No -Treatment Response Procedure Tolerated Well #2 R Heel -Time 15:13 -Correct Patient Yes -Correct Side, Site, Position Yes -Correct Procedure Yes -Procedure Performed Yes -Type of Procedure Debridement -Clinical Debridement Subcutaneous -Post Debridement Size (cm) - Length 1 -Post Debridement Size (cm) - Width 1 -Post Debridement Size (cm) - Depth 0.4 -Total Square Cm 1 -Wound/Ulcer Outcome Not Healed -Ulcer Cleansing Not Cleansed -Foul Odor after Cleansing No -Bioengineered Tissue No -Bleeding Controlled with NA -Offloading No -Treatment Response Procedure Tolerated Well [See Physician Procedure note for Specifics] Pain Scale: 0-10 Numeric [Pain] -Is Patient Pain Free? No Psych/Mental Status: Normal Affect, Appropriate Debridement Note Post-Debridement Measurements/Treatment WC - Nurse 2 - General Ulcer CM Notes Start: 06/20/18 13:51 Freq: Status: Active Protocol: Activity Type Activity Date Activity User E-Sign Co-Sign Detail Recorded Client Recorded Date Recorded By Document 06/20/18 14:29 [id number] 06/20/18 14:45 Document 06/27/18 12:15 [id number] 06/27/18 12:29 CS Document 07/04/18 15:13 [id number] 07/04/18 15:25 06/20/18 06/27/18 07/04/18 14:29 12:15 15:13 Wound Center Nurse 2 #4 RIGHT ACHILLES -Time 14:32 12:22 15:13 -Correct Patient Yes Yes Yes -Correct Side, Site, Position Yes Yes Yes -Correct Procedure Yes Yes Yes -Procedure Performed Yes Yes Yes -Type of Procedure Debridement Debridement Debridement -Clinical Debridement Subcutaneous Subcutaneous Subcutaneous -Post Debridement Size (cm) - Length 1 0.8 0.7 -Post Debridement Size (cm) - Width 1 0.7 0.7 -Post Debridement Size (cm) - Depth 0.2 0.3 0.3 -Total Square Cm 1 0.56 0.49 -Wound/Ulcer Outcome Not Healed Not Healed Not Healed -Ulcer Cleansing Rinsed/ Rinsed/ Not Cleansed Irrigated with Irrigated with Saline Saline -Foul Odor after Cleansing No No No -Bioengineered Tissue No No No -Bleeding Controlled with NA NA NA -Offloading Yes No No -Type of Offloading Surgical Shoe Surgical Shoe -Treatment Response Procedure Procedure Procedure Tolerated Well Tolerated Well Tolerated Well #3 Right Medial Whitney -Time 14:32 12:21 -Correct Patient Yes -Correct Side, Site, Position Yes -Correct Procedure Yes -Procedure Performed Yes -Type of Procedure Debridement -Clinical Debridement Subcutaneous -Post Debridement Size (cm) - Length 0.7 0 -Post Debridement Size (cm) - Width 0.2 0 -Post Debridement Size (cm) - Depth 0.1 0 -Total Square Cm 0.14 0 -Wound/Ulcer Outcome Not Healed Healed- Epithelialized -Ulcer Cleansing Rinsed/ Irrigated with Saline -Foul Odor after Cleansing No -Bioengineered Tissue No -Bleeding Controlled with NA -Offloading No -Type of Offloading Surgical Shoe #2 R Heel -Time 14:33 12:22 15:13 -Correct Patient Yes Yes Yes -Correct Side, Site, Position Yes Yes Yes -Correct Procedure Yes Yes Yes -Procedure Performed Yes Yes Yes -Type of Procedure Debridement Debridement Debridement -Clinical Debridement Subcutaneous Subcutaneous Subcutaneous -Post Debridement Size (cm) - Length 1.2 1.0 1 -Post Debridement Size (cm) - Width 1.1 1.1 1 -Post Debridement Size (cm) - Depth 0.4 0.3 0.4 -Total Square Cm 1.32 1.10 1 -Wound/Ulcer Outcome Not Healed Not Healed Not Healed -Ulcer Cleansing Rinsed/ Rinsed/ Not Cleansed Irrigated with Irrigated with Saline Saline -Foul Odor after Cleansing No No No -Bioengineered Tissue No No No -Bleeding Controlled with NA NA NA -Offloading No No No -Type of Offloading Surgical Shoe Surgical Shoe -Treatment Response Procedure Procedure Procedure Tolerated Well Tolerated Well Tolerated Well Pain Scale: 0-10 Numeric Is Patient Pain Free? Yes No No Wound debrided: right Achilles Laterality: Right Wound Grade/Stage: Valdez stage 2 Type of Debridement: Excisional debridement Anesthesia Used: 4% Lidocaine Solution, 5% Lidocaine Gel Depth: Down to and including healthy tissue, in the subcutaneous layer Percentage of wound debrided: 100 Instrument Used: 5mm curette Tissue Removed: yellow slough, devitalized tissue Severity: Fat Layer Exposed Amount of bleeding with debridement: Mild Bleeding Controlled with: Compression and gauze Patient tolerated procedure well - Additional Wound Wound debrided: right heel Laterality: Right Wound Grade/Stage: Valdez stage 2 Type of Debridement: Excisional debridement Anesthesia Used: 4% Lidocaine Solution, 5% Lidocaine Gel Depth: Down to and including healthy tissue, in the subcutaneous layer Percentage of wound debrided: 100 Instrument Used: 5mm curette Tissue Removed: yellow slough, devitalized tissue Severity: Fat Layer Exposed Amount of bleeding with debridement: Mild Bleeding Controlled with: Compression and gauze Patient tolerated procedure: Patient tolerated procedure well Assessment/Plan Clinical Impression(s) from Imaging Studies Ankle X-Ray 06/27/18 13:00 IMPRESSION: 1. 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 2. Mild diffuse soft tissue swelling. Right leg postsurgical change. 3. No fracture or acute osseous abnormality. 4. Chronic findings include atherosclerotic calcification sent posterior calcaneal spur. at 0616 Reported and signed by: Gurdeep Ruggiero MD Electronically Signed: Gurdeep Ruggiero, at 6:15 EST Tel , Service support , Foot X-Ray 06/27/18 13:13 IMPRESSION: 1. Generalized bony demineralization in keeping with disuse osteoporosis or possibly reflex sympathetic dystrophy (complex regional pain syndrome). 2. No fracture or osteomyelitis. 3. Chronic deformities of the great toe and second metatarsal head. Details above. 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 Diabetes mellitus - uncontrolled. Peripheral vascular disease - status post revascularization but re-occlusion. right whitney venous ulcer - healed Plan: Gibson's ulcers were evaluated and debrided today. There is mild improvement in his ulcers, will continue to dress with Aquacel. Xrays showed no osteomyelitis. Wound culture was taken today due to his continued pain. Records from vascular have been reviewed and it appears that Dr. Navas recommended a SFA-ant. tib. bypass for his right leg but this has not been done. Discussed offloading importance and gave him a surgical shoe to wear to offload his heel. Discuss TCC but he refuses at this time. Single layer tubigrip compression advised if he can tolerate this, avoidance of idle standing or sitting with legs hanging down. Encouraged improved control of his blood sugars. Encouraged him to seek consultation with pain management for his pain and gave him a 7 day RX (#56) for tramadol to use for pain as needed on 07/04/18. [place]ARRS checked and appropriate. Encouarged to call with increased drainage, redness or fever or chills. Will f/u in 1 week.
--- NOTE | 2018-07-04 17:50 | PN.PCM_ITS ---
(1) Type 2 diabetes, uncontrolled, with ulcer of heel Status: Chronic Current Visit: Yes Code(s): E11.621 - Type 2 diabetes mellitus with foot ulcer; E11.65 - Type 2 diabetes mellitus with hyperglycemia; L97.409 - Non-pressure chronic ulcer of unspecified heel and midfoot with unspecified severity (2) Venous ulcer of right lower extremity without varicose veins Status: Chronic Current Visit: Yes Code(s): I87.2 - Venous insufficiency (chronic) (peripheral); L97.919 - Non-pressure chronic ulcer of unspecified part of right lower leg with unspecified severity (3) Peripheral vascular disease Status: Chronic Current Visit: Yes Code(s): I73.9 - Peripheral vascular disease, unspecified (4) Type II diabetes mellitus Status: Chronic Current Visit: Yes Qualifiers: Diabetes mellitus buttermaker continuous churn insulin use: without buttermaker continuous churn use Diabetes mellitus complication status: with skin complications Diabetes mellitus complication detail: with foot ulcer Qualified Code(s): E11.621 - Type 2 diabetes mellitus with foot ulcer; L97.509 - Non-pressure chronic ulcer of other part of unspecified foot with unspecified severity Code(s): E11.9 - Type 2 diabetes mellitus without complications Type of Wound Date of Service: 07/04/18 Chief Complaint: Nonhealing ulcers right heel History of Wound: This 68-year-old male is here for evaluation of an ulcer of his right heel and his right whitney. He states that he has had an ulcer approx. 5 years ago of this same heel and was treated here and was healed after vascular interventions by Dr. Navas. He has noticed increased pain in his heel for the last few months and approx. 5 weeks ago he noted an open wound to his right heel. He was using gauze but this started to irritate his skin and has been using silvadene and adaptic to the wound with tape for the last few weeks. He has not had any treatment with antibiotics for the wound. He is self-referred for treatment here. He does follow with Dr. 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 He has had procedures for his arterial disease in past to both of his lower extremities. From review of records it seems that Dr. Navas planned to do a right SFA-ant. tib bypass but it does not appear that this was done and patient denies having any bypass procedures other than his heart. It sounds like he is trying alternative treatments with supplements and chelation therapy. He also has diabetes and his last A1C several months ago was 7.2% but he stopped glyburide because he felt it was causing blisters of his legs. He does wear diabetic shoes. He has been undergoing chelation treatments by Dr. German in [place]. Dr. German prescribed him oxycodone-APAP 5/325 mg #60 which were filled on 05/22/18 for pain, he has six tablets left from this prescription, and he is asking for pain medication to treat pain from debridement. He reports having xrays done several months ago of his right heel due to pain which did not show any osteomyelitis or acute fractures. He denies fever, chills, erythema or heavy drainage. He reports significant pain and discomfort of his right heel and his entire right leg which no one can explain. Progress of Wound: Gibson is here to follow up for nonhealing ulcers of his right foot. He tolerated the dressings but is not able to tolerate compression with tubigrip. He continues to have severe pain in his ankle/heel. He completed antibiotics but had worsening pain prior to completion. He has been trying to elevate his foot and has been using his surgical shoe to offload as well. Denies fever or chills or increased drainage. - Physical Exam Vital Signs Temp Pulse Resp BP 97.1 F L 78 16 139/73 H 07/04/18 14:40 07/04/18 14:40 07/04/18 14:40 07/04/18 14:40 General: Alert, Oriented x3, Cooperative, No apparent distress HEENT: Atraumatic, Normocephalic Extremities: Edema Skin: Ulcer/ Wound Wound Measurements and Assessment WC - Nurse 1 - General Ulcer Measurement Start: 06/20/18 13:51 Freq: Status: Active Protocol: Activity Type Activity Date Activity User E-Sign Co-Sign Detail Recorded Client Recorded Date Recorded By Document 07/04/18 14:40 MW [id number] 07/04/18 14:50 MW 07/04/18 14:40 Wound Center Nurse 1 [Ulcer Assessment] #4 RIGHT ACHILLES -Combined with other wound No -Current Size (cm) - Length 0.6 -Current Size (cm) - Width 0.8 -Current Size (cm) - Depth 0.2 -Total Square Cm 0.48 -Photo Taken No -Epithelialization None Present -Tunneling No -Undermining/Tunneling No -Circular Undermining No -Exudate Amt Small -Exudate Type Serous -Wound Margin Flat & Intact -Granulation Amt None Present (0 %) -Slough/Fibrin Yes -Necrosis Amt Large (67-100%) -Necrotic Tissue Type Adherent Slough -Texture (Shahana-wound Skin Appearance) Scarring -Moisture (Shahana-wound Skin Appearance Dry/Scaly ) -Color (Shahana-wound Skin Appearance) Assessed -Temperature (Shahana-wound Skin No Abnormality Appearance) (Pt Warm) -Tenderness on Palpation (Shahana-wound Yes Skin Appearance) -Ulcer Cleansing Rinsed/ Irrigated with Saline -Foul Odor after Cleansing No -Anesthetic Used 5% Lidocaine Gel #2 R Heel -Combined with other wound No -Current Size (cm) - Length 0.9 -Current Size (cm) - Width 0.8 -Current Size (cm) - Depth 0.2 -Total Square Cm 0.72 -Photo Taken No -Epithelialization None Present -Tunneling No -Undermining/Tunneling No -Circular Undermining No -Exudate Amt Small -Exudate Type Serous -Wound Margin Flat & Intact -Granulation Amt Medium (34-66%) -Granulation Quality [place] -Slough/Fibrin Yes -Necrosis Amt Medium (34-66%) -Necrotic Tissue Type Adherent Slough -Texture (Shahana-wound Skin Appearance) Scarring -Moisture (Shahana-wound Skin Appearance Dry/Scaly ) -Color (Shahana-wound Skin Appearance) Assessed Erythema -Temperature (Shahana-wound Skin No Abnormality Appearance) (Pt Warm) -Tenderness on Palpation (Shahana-wound Yes Skin Appearance) -Ulcer Cleansing Rinsed/ Irrigated with Saline -Foul Odor after Cleansing No -Anesthetic Used 5% Lidocaine Gel [Edema Assessment] -Lower Limb Edema Present Yes -Right Calf (cm) 33.5 -Right Ankle (cm) 23.5 WC - Nurse 2 - General Ulcer CM Notes Start: 06/20/18 13:51 Freq: Status: Active Protocol: Activity Type Activity Date Activity User E-Sign Co-Sign Detail Recorded Client Recorded Date Recorded By Document 07/04/18 15:13 [id number] 07/04/18 15:25 CS 07/04/18 15:13 Wound Center Nurse 2 [Procedure/Treatment] #4 RIGHT ACHILLES -Time 15:13 -Correct Patient Yes -Correct Side, Site, Position Yes -Correct Procedure Yes -Procedure Performed Yes -Type of Procedure Debridement -Clinical Debridement Subcutaneous -Post Debridement Size (cm) - Length 0.7 -Post Debridement Size (cm) - Width 0.7 -Post Debridement Size (cm) - Depth 0.3 -Total Square Cm 0.49 -Wound/Ulcer Outcome Not Healed -Ulcer Cleansing Not Cleansed -Foul Odor after Cleansing No -Bioengineered Tissue No -Bleeding Controlled with NA -Offloading No -Treatment Response Procedure Tolerated Well #2 R Heel -Time 15:13 -Correct Patient Yes -Correct Side, Site, Position Yes -Correct Procedure Yes -Procedure Performed Yes -Type of Procedure Debridement -Clinical Debridement Subcutaneous -Post Debridement Size (cm) - Length 1 -Post Debridement Size (cm) - Width 1 -Post Debridement Size (cm) - Depth 0.4 -Total Square Cm 1 -Wound/Ulcer Outcome Not Healed -Ulcer Cleansing Not Cleansed -Foul Odor after Cleansing No -Bioengineered Tissue No -Bleeding Controlled with NA -Offloading No -Treatment Response Procedure Tolerated Well [See Physician Procedure note for Specifics] Pain Scale: 0-10 Numeric [Pain] -Is Patient Pain Free? No Psych/Mental Status: Normal Affect, Appropriate Debridement Note Post-Debridement Measurements/Treatment WC - Nurse 2 - General Ulcer CM Notes Start: 06/20/18 13:51 Freq: Status: Active Protocol: Activity Type Activity Date Activity User E-Sign Co-Sign Detail Recorded Client Recorded Date Recorded By Document 06/20/18 14:29 [id number] 06/20/18 14:45 Document 06/27/18 12:15 [id number] 06/27/18 12:29 CS Document 07/04/18 15:13 [id number] 07/04/18 15:25 06/20/18 06/27/18 07/04/18 14:29 12:15 15:13 Wound Center Nurse 2 #4 RIGHT ACHILLES -Time 14:32 12:22 15:13 -Correct Patient Yes Yes Yes -Correct Side, Site, Position Yes Yes Yes -Correct Procedure Yes Yes Yes -Procedure Performed Yes Yes Yes -Type of Procedure Debridement Debridement Debridement -Clinical Debridement Subcutaneous Subcutaneous Subcutaneous -Post Debridement Size (cm) - Length 1 0.8 0.7 -Post Debridement Size (cm) - Width 1 0.7 0.7 -Post Debridement Size (cm) - Depth 0.2 0.3 0.3 -Total Square Cm 1 0.56 0.49 -Wound/Ulcer Outcome Not Healed Not Healed Not Healed -Ulcer Cleansing Rinsed/ Rinsed/ Not Cleansed Irrigated with Irrigated with Saline Saline -Foul Odor after Cleansing No No No -Bioengineered Tissue No No No -Bleeding Controlled with NA NA NA -Offloading Yes No No -Type of Offloading Surgical Shoe Surgical Shoe -Treatment Response Procedure Procedure Procedure Tolerated Well Tolerated Well Tolerated Well #3 Right Medial Whitney -Time 14:32 12:21 -Correct Patient Yes -Correct Side, Site, Position Yes -Correct Procedure Yes -Procedure Performed Yes -Type of Procedure Debridement -Clinical Debridement Subcutaneous -Post Debridement Size (cm) - Length 0.7 0 -Post Debridement Size (cm) - Width 0.2 0 -Post Debridement Size (cm) - Depth 0.1 0 -Total Square Cm 0.14 0 -Wound/Ulcer Outcome Not Healed Healed- Epithelialized -Ulcer Cleansing Rinsed/ Irrigated with Saline -Foul Odor after Cleansing No -Bioengineered Tissue No -Bleeding Controlled with NA -Offloading No -Type of Offloading Surgical Shoe #2 R Heel -Time 14:33 12:22 15:13 -Correct Patient Yes Yes Yes -Correct Side, Site, Position Yes Yes Yes -Correct Procedure Yes Yes Yes -Procedure Performed Yes Yes Yes -Type of Procedure Debridement Debridement Debridement -Clinical Debridement Subcutaneous Subcutaneous Subcutaneous -Post Debridement Size (cm) - Length 1.2 1.0 1 -Post Debridement Size (cm) - Width 1.1 1.1 1 -Post Debridement Size (cm) - Depth 0.4 0.3 0.4 -Total Square Cm 1.32 1.10 1 -Wound/Ulcer Outcome Not Healed Not Healed Not Healed -Ulcer Cleansing Rinsed/ Rinsed/ Not Cleansed Irrigated with Irrigated with Saline Saline -Foul Odor after Cleansing No No No -Bioengineered Tissue No No No -Bleeding Controlled with NA NA NA -Offloading No No No -Type of Offloading Surgical Shoe Surgical Shoe -Treatment Response Procedure Procedure Procedure Tolerated Well Tolerated Well Tolerated Well Pain Scale: 0-10 Numeric Is Patient Pain Free? Yes No No Wound debrided: right Achilles Laterality: Right Wound Grade/Stage: Valdez stage 2 Type of Debridement: Excisional debridement Anesthesia Used: 4% Lidocaine Solution, 5% Lidocaine Gel Depth: Down to and including healthy tissue, in the subcutaneous layer Percentage of wound debrided: 100 Instrument Used: 5mm curette Tissue Removed: yellow slough, devitalized tissue Severity: Fat Layer Exposed Amount of bleeding with debridement: Mild Bleeding Controlled with: Compression and gauze Patient tolerated procedure well - Additional Wound Wound debrided: right heel Laterality: Right Wound Grade/Stage: Valdez stage 2 Type of Debridement: Excisional debridement Anesthesia Used: 4% Lidocaine Solution, 5% Lidocaine Gel Depth: Down to and including healthy tissue, in the subcutaneous layer Percentage of wound debrided: 100 Instrument Used: 5mm curette Tissue Removed: yellow slough, devitalized tissue Severity: Fat Layer Exposed Amount of bleeding with debridement: Mild Bleeding Controlled with: Compression and gauze Patient tolerated procedure: Patient tolerated procedure well Assessment/Plan Clinical Impression(s) from Imaging Studies Ankle X-Ray 06/27/18 13:00 IMPRESSION: 1. 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 2. Mild diffuse soft tissue swelling. Right leg postsurgical change. 3. No fracture or acute osseous abnormality. 4. Chronic findings include atherosclerotic calcification sent posterior calcaneal spur. at 0616 Reported and signed by: Gurdeep Ruggiero MD Electronically Signed: Gurdeep Ruggiero, at 6:15 EST Tel , Service support , Foot X-Ray 06/27/18 13:13 IMPRESSION: 1. Generalized bony demineralization in keeping with disuse osteoporosis or possibly reflex sympathetic dystrophy (complex regional pain syndrome). 2. No fracture or osteomyelitis. 3. Chronic deformities of the great toe and second metatarsal head. Details above. 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 Diabetes mellitus - uncontrolled. Peripheral vascular disease - status post revascularization but re-occlusion. right whitney venous ulcer - healed Plan: Gibson's ulcers were evaluated and debrided today. There is mild improvement in his ulcers, will continue to dress with Aquacel. Xrays showed no osteomyelitis. Wound culture was taken today due to his continued pain. Records from vascular have been reviewed and it appears that Dr. Navas recommended a SFA-ant. tib. bypass for his right leg but this has not been done. Discussed offloading importance and gave him a surgical shoe to wear to offload his heel. Discuss TCC but he refuses at this time. Single layer tubigrip compression advised if he can tolerate this, avoidance of idle standing or sitting with legs hanging down. Encouraged improved control of his blood sugars. Encouraged him to seek consultation with pain management for his pain and gave him a 7 day RX (#56) for tramadol to use for pain as needed on 07/04/18. [place]ARRS checked and appropriate. Encouarged to call with increased drainage, redness or fever or chills. Will f/u in 1 week.
[2018-07-11 14:42] VITALS: BP 127/71; PULSE 92; RESP 22; TEMP 37.1; BMI 27.3
--- NOTE | 2018-07-11 16:17 | PCM.WC.PN ---
(1) Type 2 diabetes, uncontrolled, with ulcer of heel Status: Chronic Current Visit: Yes Code(s): E11.621 - Type 2 diabetes mellitus with foot ulcer; E11.65 - Type 2 diabetes mellitus with hyperglycemia; L97.409 - Non-pressure chronic ulcer of unspecified heel and midfoot with unspecified severity (2) Venous ulcer of right lower extremity without varicose veins Status: Chronic Current Visit: Yes Code(s): I87.2 - Venous insufficiency (chronic) (peripheral); L97.919 - Non-pressure chronic ulcer of unspecified part of right lower leg with unspecified severity (3) Peripheral vascular disease Status: Chronic Current Visit: Yes Code(s): I73.9 - Peripheral vascular disease, unspecified (4) Type II diabetes mellitus Status: Chronic Current Visit: Yes 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: 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 He states that he has had an ulcer approx. 5 years ago of this same heel and was treated here and was healed after vascular interventions by Dr. Navas. He has noticed increased pain in his heel for the last few months and approx. 5 weeks ago he noted an open wound to his right heel. He was using gauze but this started to irritate his skin and has been using silvadene and adaptic to the wound with tape for the last few weeks. He has not had any treatment with antibiotics for the wound. He is self-referred for treatment here. He does follow with Dr. 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 He has had procedures for his arterial disease in past to both of his lower extremities. From review of records it seems that Dr. Navas planned to do a right SFA-ant. tib bypass but it does not appear that this was done and patient denies having any bypass procedures other than his heart. It sounds like he is trying alternative treatments with supplements and chelation therapy. He also has diabetes and his last A1C several months ago was 7.2% but he stopped glyburide because he felt it was causing blisters of his legs. He does wear diabetic shoes. He has been undergoing chelation treatments by Dr. German in [place]. Dr. German prescribed him oxycodone-APAP 5/325 mg #60 which were filled on 05/22/18 for pain, he has six tablets left from this prescription, and he is asking for pain medication to treat pain from debridement. He reports having xrays done several months ago of his right heel due to pain which did not show any osteomyelitis or acute fractures. He denies fever, chills, erythema or heavy drainage. He reports significant pain and discomfort of his right heel and his entire right leg which no one can explain. Progress of Wound: Gibson is here to follow up for nonhealing ulcers of his right foot. He tolerated the dressings but is not able to tolerate compression with tubigrip. He continues to have severe pain in his ankle/heel. Wound culture was positive for MRSA. He has been taking doxycycline. he developed a new venous ulcer of his right medial whitney this week from edema. He has been trying to elevate his foot and has been using his surgical shoe to offload as well. He has a procedure scheduled with Dr. Navas for arterial disease on 08/07/18. Denies fever or chills or increased drainage. - Physical Exam Vital Signs Temp Pulse Resp BP 98.7 F 92 22 H 127/71 H 07/11/18 14:42 07/11/18 14:42 07/11/18 14:42 07/11/18 14:42 General: Alert, Oriented x3, Cooperative, No apparent distress HEENT: Atraumatic, Normocephalic Oral: Moist Mucosa Extremities: Edema Skin: Ulcer/ Wound Wound Measurements and Assessment WC - Nurse 1 - General Ulcer Measurement Start: 06/20/18 13:51 Freq: Status: Active Protocol: Activity Type Activity Date Activity User E-Sign Co-Sign Detail Recorded Client Recorded Date Recorded By Document 07/11/18 14:42 DL [id number] 07/11/18 14:57 DL 07/11/18 14:42 Wound Center Nurse 1 [Ulcer Assessment] #5 R Lower Whitney -Current Size (cm) - Length 0.8 -Current Size (cm) - Width 2.4 -Current Size (cm) - Depth 0.1 -Total Square Cm 1.92 -Photo Taken Yes -Exudate Amt Small -Exudate Type Serosanguineous -Wound Margin Indistinct, Non -Visible -Granulation Amt Large (67-100%) -Granulation Quality [place] -Necrosis Amt Small (1-33%) -Necrotic Tissue Type Adherent Slough -Structure Exposed N/A -Texture (Shahana-wound Skin Appearance) Scarring -Moisture (Shahana-wound Skin Appearance No Abnormality ) -Color (Shahana-wound Skin Appearance) Hemosiderin Staining Rubor -Temperature (Shahana-wound Skin No Abnormality Appearance) (Pt Warm) -Tenderness on Palpation (Shahana-wound No Skin Appearance) -Ulcer Cleansing Wound Cleanser -Foul Odor after Cleansing No -Anesthetic Used 5% Lidocaine Gel #4 RIGHT ACHILLES -Current Size (cm) - Length 0.6 -Current Size (cm) - Width 0.5 -Current Size (cm) - Depth 0.2 -Total Square Cm 0.30 -Photo Taken No -Exudate Amt Medium -Exudate Type Serosanguineous -Wound Margin Distinct, Outline Attached -Granulation Amt None Present (0 %) -Necrosis Amt Large (67-100%) -Necrotic Tissue Type Adherent Slough -Structure Exposed N/A -Texture (Shahana-wound Skin Appearance) Callus Scarring -Moisture (Shahana-wound Skin Appearance Dry/Scaly ) -Color (Shahana-wound Skin Appearance) Hemosiderin Staining Rubor -Temperature (Shahana-wound Skin No Abnormality Appearance) (Pt Warm) -Tenderness on Palpation (Shahana-wound No Skin Appearance) -Ulcer Cleansing Wound Cleanser -Foul Odor after Cleansing No -Anesthetic Used 5% Lidocaine Gel #2 R Heel -Current Size (cm) - Length 0.8 -Current Size (cm) - Width 1 -Current Size (cm) - Depth 0.5 -Total Square Cm 0.8 -Photo Taken No -Exudate Amt Medium -Exudate Type Serosanguineous -Wound Margin Thickened -Granulation Amt None Present (0 %) -Necrosis Amt Large (67-100%) -Necrotic Tissue Type Adherent Slough -Structure Exposed N/A -Texture (Shahana-wound Skin Appearance) Callus Scarring -Moisture (Shahana-wound Skin Appearance Dry/Scaly ) -Color (Shahana-wound Skin Appearance) Hemosiderin Staining Rubor -Temperature (Shahana-wound Skin No Abnormality Appearance) (Pt Warm) -Tenderness on Palpation (Shahana-wound No Skin Appearance) -Ulcer Cleansing Wound Cleanser -Foul Odor after Cleansing No -Anesthetic Used 5% Lidocaine Gel [Edema Assessment] -Right Calf (cm) 33.8 -Right Ankle (cm) 22.1 WC - Nurse 2 - General Ulcer CM Notes Start: 06/20/18 13:51 Freq: Status: Active Protocol: Activity Type Activity Date Activity User E-Sign Co-Sign Detail Recorded Client Recorded Date Recorded By Document 07/11/18 15:09 [id number] 07/11/18 15:30 07/11/18 15:09 Wound Center Nurse 2 [Procedure/Treatment] #5 R Lower [place] -Time 15:10 -Correct Patient Yes -Correct Side, Site, Position Yes -Correct Procedure Yes -Procedure Performed Yes -Type of Procedure Debridement -Clinical Debridement Subcutaneous -Post Debridement Size (cm) - Length 0.6 -Post Debridement Size (cm) - Width 2.4 -Post Debridement Size (cm) - Depth 0.1 -Total Square Cm 1.44 -Wound/Ulcer Outcome Not Healed -Ulcer Cleansing Rinsed/ Irrigated with Saline -Foul Odor after Cleansing No -Bioengineered Tissue No -Bleeding Controlled with NA -Offloading No -Treatment Response Procedure Tolerated Well #4 RIGHT ACHILLES -Time 15:11 -Correct Patient Yes -Correct Side, Site, Position Yes -Correct Procedure Yes -Procedure Performed Yes -Type of Procedure Debridement -Clinical Debridement Subcutaneous -Post Debridement Size (cm) - Length 0.8 -Post Debridement Size (cm) - Width 0.8 -Post Debridement Size (cm) - Depth 0.2 -Total Square Cm 0.64 -Wound/Ulcer Outcome Not Healed -Ulcer Cleansing Not Cleansed -Foul Odor after Cleansing No -Bioengineered Tissue No -Bleeding Controlled with NA -Offloading No -Treatment Response Procedure Not Tolerated Well #2 R Heel -Time 15:23 -Correct Patient Yes -Correct Side, Site, Position Yes -Correct Procedure Yes -Procedure Performed Yes -Type of Procedure Debridement -Clinical Debridement Subcutaneous -Post Debridement Size (cm) - Length 1.5 -Post Debridement Size (cm) - Width 1.1 -Post Debridement Size (cm) - Depth 0.5 -Total Square Cm 1.65 -Wound/Ulcer Outcome Not Healed -Ulcer Cleansing Not Cleansed -Foul Odor after Cleansing No -Bioengineered Tissue No -Bleeding Controlled with NA -Treatment Response Procedure Not Tolerated Well [See Physician Procedure note for Specifics] Pain Scale: 0-10 Numeric [Pain] -Is Patient Pain Free? No Psych/Mental Status: Normal Affect, Appropriate Debridement Note Post-Debridement Measurements/Treatment WC - Nurse 2 - General Ulcer CM Notes Start: 06/20/18 13:51 Freq: Status: Active Protocol: Activity Type Activity Date Activity User E-Sign Co-Sign Detail Recorded Client Recorded Date Recorded By Document 06/20/18 14:29 [id number] 06/20/18 14:45 CS Document 06/27/18 12:15 CS [id number] 06/27/18 12:29 CS Document 07/04/18 15:13 CS [id number] 07/04/18 15:25 CS Document 07/11/18 15:09 CS [id number] 07/11/18 15:30 CS 06/20/18 06/27/18 07/04/18 14:29 12:15 15:13 Wound Center Nurse 2 #5 R Lower [place] -Time -Correct Patient -Correct Side, Site, Position -Correct Procedure -Procedure Performed -Type of Procedure -Clinical Debridement -Post Debridement Size (cm) - Length -Post Debridement Size (cm) - Width -Post Debridement Size (cm) - Depth -Total Square Cm -Wound/Ulcer Outcome -Ulcer Cleansing -Foul Odor after Cleansing -Bioengineered Tissue -Bleeding Controlled with -Offloading -Treatment Response #4 RIGHT ACHILLES -Time 14:32 12:22 15:13 -Correct Patient Yes Yes Yes -Correct Side, Site, Position Yes Yes Yes -Correct Procedure Yes Yes Yes -Procedure Performed Yes Yes Yes -Type of Procedure Debridement Debridement Debridement -Clinical Debridement Subcutaneous Subcutaneous Subcutaneous -Post Debridement Size (cm) - Length 1 0.8 0.7 -Post Debridement Size (cm) - Width 1 0.7 0.7 -Post Debridement Size (cm) - Depth 0.2 0.3 0.3 -Total Square Cm 1 0.56 0.49 -Wound/Ulcer Outcome Not Healed Not Healed Not Healed -Ulcer Cleansing Rinsed/ Rinsed/ Not Cleansed Irrigated with Irrigated with Saline Saline -Foul Odor after Cleansing No No No -Bioengineered Tissue No No No -Bleeding Controlled with NA NA NA -Offloading Yes No No -Type of Offloading Surgical Shoe Surgical Shoe -Treatment Response Procedure Procedure Procedure Tolerated Well Tolerated Well Tolerated Well #3 Right Medial Whitney -Time 14:32 12:21 -Correct Patient Yes -Correct Side, Site, Position Yes -Correct Procedure Yes -Procedure Performed Yes -Type of Procedure Debridement -Clinical Debridement Subcutaneous -Post Debridement Size (cm) - Length 0.7 0 -Post Debridement Size (cm) - Width 0.2 0 -Post Debridement Size (cm) - Depth 0.1 0 -Total Square Cm 0.14 0 -Wound/Ulcer Outcome Not Healed Healed- Epithelialized -Ulcer Cleansing Rinsed/ Irrigated with Saline -Foul Odor after Cleansing No -Bioengineered Tissue No -Bleeding Controlled with NA -Offloading No -Type of Offloading Surgical Shoe #2 R Heel -Time 14:33 12:22 15:13 -Correct Patient Yes Yes Yes -Correct Side, Site, Position Yes Yes Yes -Correct Procedure Yes Yes Yes -Procedure Performed Yes Yes Yes -Type of Procedure Debridement Debridement Debridement -Clinical Debridement Subcutaneous Subcutaneous Subcutaneous -Post Debridement Size (cm) - Length 1.2 1.0 1 -Post Debridement Size (cm) - Width 1.1 1.1 1 -Post Debridement Size (cm) - Depth 0.4 0.3 0.4 -Total Square Cm 1.32 1.10 1 -Wound/Ulcer Outcome Not Healed Not Healed Not Healed -Ulcer Cleansing Rinsed/ Rinsed/ Not Cleansed Irrigated with Irrigated with Saline Saline -Foul Odor after Cleansing No No No -Bioengineered Tissue No No No -Bleeding Controlled with NA NA NA -Offloading No No No -Type of Offloading Surgical Shoe Surgical Shoe -Treatment Response Procedure Procedure Procedure Tolerated Well Tolerated Well Tolerated Well Pain Scale: 0-10 Numeric Is Patient Pain Free? Yes No No 07/11/18 15:09 Wound Center Nurse 2 #5 R Lower [place] -Time 15:10 -Correct Patient Yes -Correct Side, Site, Position Yes -Correct Procedure Yes -Procedure Performed Yes -Type of Procedure Debridement -Clinical Debridement Subcutaneous -Post Debridement Size (cm) - Length 0.6 -Post Debridement Size (cm) - Width 2.4 -Post Debridement Size (cm) - Depth 0.1 -Total Square Cm 1.44 -Wound/Ulcer Outcome Not Healed -Ulcer Cleansing Rinsed/ Irrigated with Saline -Foul Odor after Cleansing No -Bioengineered Tissue No -Bleeding Controlled with NA -Offloading No -Treatment Response Procedure Tolerated Well #4 RIGHT ACHILLES -Time 15:11 -Correct Patient Yes -Correct Side, Site, Position Yes -Correct Procedure Yes -Procedure Performed Yes -Type of Procedure Debridement -Clinical Debridement Subcutaneous -Post Debridement Size (cm) - Length 0.8 -Post Debridement Size (cm) - Width 0.8 -Post Debridement Size (cm) - Depth 0.2 -Total Square Cm 0.64 -Wound/Ulcer Outcome Not Healed -Ulcer Cleansing Not Cleansed -Foul Odor after Cleansing No -Bioengineered Tissue No -Bleeding Controlled with NA -Offloading No -Type of Offloading -Treatment Response Procedure Not Tolerated Well #3 Right Medial Whitney -Time -Correct Patient -Correct Side, Site, Position -Correct Procedure -Procedure Performed -Type of Procedure -Clinical Debridement -Post Debridement Size (cm) - Length -Post Debridement Size (cm) - Width -Post Debridement Size (cm) - Depth -Total Square Cm -Wound/Ulcer Outcome -Ulcer Cleansing -Foul Odor after Cleansing -Bioengineered Tissue -Bleeding Controlled with -Offloading -Type of Offloading #2 R Heel -Time 15:23 -Correct Patient Yes -Correct Side, Site, Position Yes -Correct Procedure Yes -Procedure Performed Yes -Type of Procedure Debridement -Clinical Debridement Subcutaneous -Post Debridement Size (cm) - Length 1.5 -Post Debridement Size (cm) - Width 1.1 -Post Debridement Size (cm) - Depth 0.5 -Total Square Cm 1.65 -Wound/Ulcer Outcome Not Healed -Ulcer Cleansing Not Cleansed -Foul Odor after Cleansing No -Bioengineered Tissue No -Bleeding Controlled with NA -Offloading -Type of Offloading -Treatment Response Procedure Not Tolerated Well Pain Scale: 0-10 Numeric Is Patient Pain Free? No Wound debrided: right medial whitney Laterality: Right Type of Debridement: Excisional debridement Anesthesia Used: 4% Lidocaine Solution Depth: Down to and including healthy tissue, in the subcutaneous layer Percentage of wound debrided: 100 Instrument Used: 5mm curette Tissue Removed: yellow slough, devitalized tissue Severity: Fat Layer Exposed Amount of bleeding with debridement: Mild Bleeding Controlled with: Compression and gauze Patient tolerated procedure well - Additional Wound Wound debrided: right achilles Laterality: Right Wound Grade/Stage: Waggner stage 2 Type of Debridement: Excisional debridement Anesthesia Used: 4% Lidocaine Solution, 5% Lidocaine Gel, - - lidocaine with epi Depth: Down to and including healthy tissue, in the subcutaneous layer Percentage of wound debrided: 100 Instrument Used: 5mm curette Tissue Removed: yellow slough, devitalized tissue Severity: Fat Layer Exposed Amount of bleeding with debridement: Mild Bleeding Controlled with: Compression and gauze Patient tolerated procedure: Patient tolerated procedure well - Additional Wound Wound debrided: right heel Laterality: Right Type of Debridement: Excisional debridement Anesthesia Used: 4% Lidocaine Solution, 5% Lidocaine Gel, - - lidocaine w/ epi Depth: Down to and including healthy tissue, in the subcutaneous layer Percentage of wound debrided: 100 Instrument Used: 5mm curette Tissue Removed: yellow slough, devitalized tissue Severity: Fat Layer Exposed Amount of bleeding with debridement: Mild Bleeding Controlled with: Compression and gauze Patient tolerated procedure: Patient tolerated procedure well Assessment/Plan Clinical Impression(s) from Imaging Studies Ankle X-Ray 06/27/18 13:00 IMPRESSION: 1. 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 2. Mild diffuse soft tissue swelling. Right leg postsurgical change. 3. No fracture or acute osseous abnormality. 4. Chronic findings include atherosclerotic calcification sent posterior calcaneal spur. at 0616 Reported and signed by: Gurdeep Ruggiero MD Electronically Signed: Gurdeep Ruggiero, at 6:15 EST Tel , Service support , Foot X-Ray 06/27/18 13:13 IMPRESSION: 1. Generalized bony demineralization in keeping with disuse osteoporosis or possibly reflex sympathetic dystrophy (complex regional pain syndrome). 2. No fracture or osteomyelitis. 3. Chronic deformities of the great toe and second metatarsal head. Details above. 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 Diabetes mellitus - uncontrolled. Peripheral vascular disease - status post revascularization but re-occlusion. right whitney venous ulcer - healed Plan: Gibson's ulcers were evaluated and debrided today. There is not much improvement in his ulcers overall which may be due to the MRSA infection. Xrays showed no osteomyelitis. Records from vascular have been reviewed and it appears that Dr. Navas recommended a SFA-ant. tib. bypass for his right leg which is scheduled for 08/07/18. Discussed offloading importance and gave him a surgical shoe to wear to offload his heel. Discuss TCC but he refuses at this time. Single layer tubigrip compression advised if he can tolerate this, avoidance of idle standing or sitting with legs hanging down. Encouraged improved control of his blood sugars. Encouraged him to seek consultation with pain management for his pain and gave him a 7 day RX (#56) for tramadol to use for pain as needed on 07/04/18. [place]AR[place] checked and appropriate. Encouarged to call with increased drainage, redness or fever or chills. Will f/u in 1 week.
--- NOTE | 2018-07-11 16:23 | PN.PCM_ITS ---
(1) Type 2 diabetes, uncontrolled, with ulcer of heel Status: Chronic Current Visit: Yes Code(s): E11.621 - Type 2 diabetes mellitus with foot ulcer; E11.65 - Type 2 diabetes mellitus with hyperglycemia; L97.409 - Non-pressure chronic ulcer of unspecified heel and midfoot with unspecified severity (2) Venous ulcer of right lower extremity without varicose veins Status: Chronic Current Visit: Yes Code(s): I87.2 - Venous insufficiency (chronic) (peripheral); L97.919 - Non-pressure chronic ulcer of unspecified part of right lower leg with unspecified severity (3) Peripheral vascular disease Status: Chronic Current Visit: Yes Code(s): I73.9 - Peripheral vascular disease, unspecified (4) Type II diabetes mellitus Status: Chronic Current Visit: Yes Qualifiers: 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 He states that he has had an ulcer approx. 5 years ago of this same heel and was treated here and was healed after vascular interventions by Dr. Navas. He has noticed increased pain in his heel for the last few months and approx. 5 weeks ago he noted an open wound to his right heel. He was using gauze but this started to irritate his skin and has been using silvadene and adaptic to the wound with tape for the last few weeks. He has not had any treatment with antibiotics for the wound. He is self-referred for treatment here. He does follow with Dr. 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 He has had procedures for his arterial disease in past to both of his lower extremities. From review of records it seems that Dr. Navas planned to do a right SFA-ant. tib bypass but it does not appear that this was done and patient denies having any bypass procedures other than his heart. It sounds like he is trying alternative treatments with supplements and chelation therapy. He also has diabetes and his last A1C several months ago was 7.2% but he stopped glyburide because he felt it was causing blisters of his legs. He does wear diabetic shoes. He has been undergoing chelation treatments by Dr. German in [place]. Dr. German prescribed him oxycodone-APAP 5/325 mg #60 which were filled on 05/22/18 for pain, he has six tablets left from this prescription, and he is asking for pain medication to treat pain from debridement. He reports having xrays done several months ago of his right heel due to pain which did not show any osteomyelitis or acute fractures. He denies fever, chills, erythema or heavy drainage. He reports significant pain and discomfort of his right heel and his entire right leg which no one can explain. Progress of Wound: Gibson is here to follow up for nonhealing ulcers of his right foot. He tolerated the dressings but is not able to tolerate compression with tubigrip. He continues to have severe pain in his ankle/heel. Wound culture was positive for MRSA. He has been taking doxycycline. he developed a new venous ulcer of his right medial whitney this week from edema. He has been trying to elevate his foot and has been using his surgical shoe to offload as well. He has a procedure scheduled with Dr. Navas for arterial disease on 08/07/18. Denies fever or chills or increased drainage. - Physical Exam Vital Signs Temp Pulse Resp BP 98.7 F 92 22 H 127/71 H 07/11/18 14:42 07/11/18 14:42 07/11/18 14:42 07/11/18 14:42 General: Alert, Oriented x3, Cooperative, No apparent distress HEENT: Atraumatic, Normocephalic Oral: Moist Mucosa Extremities: Edema Skin: Ulcer/ Wound Wound Measurements and Assessment WC - Nurse 1 - General Ulcer Measurement Start: 06/20/18 13:51 Freq: Status: Active Protocol: Activity Type Activity Date Activity User E-Sign Co-Sign Detail Recorded Client Recorded Date Recorded By Document 07/11/18 14:42 DL [id number] 07/11/18 14:57 DL 07/11/18 14:42 Wound Center Nurse 1 [Ulcer Assessment] #5 R Lower Whitney -Current Size (cm) - Length 0.8 -Current Size (cm) - Width 2.4 -Current Size (cm) - Depth 0.1 -Total Square Cm 1.92 -Photo Taken Yes -Exudate Amt Small -Exudate Type Serosanguineous -Wound Margin Indistinct, Non -Visible -Granulation Amt Large (67-100%) -Granulation Quality Correll -Necrosis Amt Small (1-33%) -Necrotic Tissue Type Adherent Slough -Structure Exposed N/A -Texture (Shahana-wound Skin Appearance) Scarring -Moisture (Shahana-wound Skin Appearance No Abnormality ) -Color (Shahana-wound Skin Appearance) Hemosiderin Staining Rubor -Temperature (Shahana-wound Skin No Abnormality Appearance) (Pt Warm) -Tenderness on Palpation (Shahana-wound No Skin Appearance) -Ulcer Cleansing Wound Cleanser -Foul Odor after Cleansing No -Anesthetic Used 5% Lidocaine Gel #4 RIGHT ACHILLES -Current Size (cm) - Length 0.6 -Current Size (cm) - Width 0.5 -Current Size (cm) - Depth 0.2 -Total Square Cm 0.30 -Photo Taken No -Exudate Amt Medium -Exudate Type Serosanguineous -Wound Margin Distinct, Outline Attached -Granulation Amt None Present (0 %) -Necrosis Amt Large (67-100%) -Necrotic Tissue Type Adherent Slough -Structure Exposed N/A -Texture (Shahana-wound Skin Appearance) Callus Scarring -Moisture (Shahana-wound Skin Appearance Dry/Scaly ) -Color (Shahana-wound Skin Appearance) Hemosiderin Staining Rubor -Temperature (Shahana-wound Skin No Abnormality Appearance) (Pt Warm) -Tenderness on Palpation (Shahana-wound No Skin Appearance) -Ulcer Cleansing Wound Cleanser -Foul Odor after Cleansing No -Anesthetic Used 5% Lidocaine Gel #2 R Heel -Current Size (cm) - Length 0.8 -Current Size (cm) - Width 1 -Current Size (cm) - Depth 0.5 -Total Square Cm 0.8 -Photo Taken No -Exudate Amt Medium -Exudate Type Serosanguineous -Wound Margin Thickened -Granulation Amt None Present (0 %) -Necrosis Amt Large (67-100%) -Necrotic Tissue Type Adherent Slough -Structure Exposed N/A -Texture (Shahana-wound Skin Appearance) Callus Scarring -Moisture (Shahana-wound Skin Appearance Dry/Scaly ) -Color (Shahana-wound Skin Appearance) Hemosiderin Staining Rubor -Temperature (Shahana-wound Skin No Abnormality Appearance) (Pt Warm) -Tenderness on Palpation (Shahana-wound No Skin Appearance) -Ulcer Cleansing Wound Cleanser -Foul Odor after Cleansing No -Anesthetic Used 5% Lidocaine Gel [Edema Assessment] -Right Calf (cm) 33.8 -Right Ankle (cm) 22.1 WC - Nurse 2 - General Ulcer CM Notes Start: 06/20/18 13:51 Freq: Status: Active Protocol: Activity Type Activity Date Activity User E-Sign Co-Sign Detail Recorded Client Recorded Date Recorded By Document 07/11/18 15:09 [id number] 07/11/18 15:30 07/11/18 15:09 Wound Center Nurse 2 [Procedure/Treatment] #5 R Lower [place] -Time 15:10 -Correct Patient Yes -Correct Side, Site, Position Yes -Correct Procedure Yes -Procedure Performed Yes -Type of Procedure Debridement -Clinical Debridement Subcutaneous -Post Debridement Size (cm) - Length 0.6 -Post Debridement Size (cm) - Width 2.4 -Post Debridement Size (cm) - Depth 0.1 -Total Square Cm 1.44 -Wound/Ulcer Outcome Not Healed -Ulcer Cleansing Rinsed/ Irrigated with Saline -Foul Odor after Cleansing No -Bioengineered Tissue No -Bleeding Controlled with NA -Offloading No -Treatment Response Procedure Tolerated Well #4 RIGHT ACHILLES -Time 15:11 -Correct Patient Yes -Correct Side, Site, Position Yes -Correct Procedure Yes -Procedure Performed Yes -Type of Procedure Debridement -Clinical Debridement Subcutaneous -Post Debridement Size (cm) - Length 0.8 -Post Debridement Size (cm) - Width 0.8 -Post Debridement Size (cm) - Depth 0.2 -Total Square Cm 0.64 -Wound/Ulcer Outcome Not Healed -Ulcer Cleansing Not Cleansed -Foul Odor after Cleansing No -Bioengineered Tissue No -Bleeding Controlled with NA -Offloading No -Treatment Response Procedure Not Tolerated Well #2 R Heel -Time 15:23 -Correct Patient Yes -Correct Side, Site, Position Yes -Correct Procedure Yes -Procedure Performed Yes -Type of Procedure Debridement -Clinical Debridement Subcutaneous -Post Debridement Size (cm) - Length 1.5 -Post Debridement Size (cm) - Width 1.1 -Post Debridement Size (cm) - Depth 0.5 -Total Square Cm 1.65 -Wound/Ulcer Outcome Not Healed -Ulcer Cleansing Not Cleansed -Foul Odor after Cleansing No -Bioengineered Tissue No -Bleeding Controlled with NA -Treatment Response Procedure Not Tolerated Well [See Physician Procedure note for Specifics] Pain Scale: 0-10 Numeric [Pain] -Is Patient Pain Free? No Psych/Mental Status: Normal Affect, Appropriate Debridement Note Post-Debridement Measurements/Treatment WC - Nurse 2 - General Ulcer CM Notes Start: 06/20/18 13:51 Freq: Status: Active Protocol: Activity Type Activity Date Activity User E-Sign Co-Sign Detail Recorded Client Recorded Date Recorded By Document 06/20/18 14:29 [id number] 06/20/18 14:45 CS Document 06/27/18 12:15 CS [id number] 06/27/18 12:29 CS Document 07/04/18 15:13 CS [id number] 07/04/18 15:25 CS Document 07/11/18 15:09 CS [id number] 07/11/18 15:30 CS 06/20/18 06/27/18 07/04/18 14:29 12:15 15:13 Wound Center Nurse 2 #5 R Lower [place] -Time -Correct Patient -Correct Side, Site, Position -Correct Procedure -Procedure Performed -Type of Procedure -Clinical Debridement -Post Debridement Size (cm) - Length -Post Debridement Size (cm) - Width -Post Debridement Size (cm) - Depth -Total Square Cm -Wound/Ulcer Outcome -Ulcer Cleansing -Foul Odor after Cleansing -Bioengineered Tissue -Bleeding Controlled with -Offloading -Treatment Response #4 RIGHT ACHILLES -Time 14:32 12:22 15:13 -Correct Patient Yes Yes Yes -Correct Side, Site, Position Yes Yes Yes -Correct Procedure Yes Yes Yes -Procedure Performed Yes Yes Yes -Type of Procedure Debridement Debridement Debridement -Clinical Debridement Subcutaneous Subcutaneous Subcutaneous -Post Debridement Size (cm) - Length 1 0.8 0.7 -Post Debridement Size (cm) - Width 1 0.7 0.7 -Post Debridement Size (cm) - Depth 0.2 0.3 0.3 -Total Square Cm 1 0.56 0.49 -Wound/Ulcer Outcome Not Healed Not Healed Not Healed -Ulcer Cleansing Rinsed/ Rinsed/ Not Cleansed Irrigated with Irrigated with Saline Saline -Foul Odor after Cleansing No No No -Bioengineered Tissue No No No -Bleeding Controlled with NA NA NA -Offloading Yes No No -Type of Offloading Surgical Shoe Surgical Shoe -Treatment Response Procedure Procedure Procedure Tolerated Well Tolerated Well Tolerated Well #3 Right Medial Whitney -Time 14:32 12:21 -Correct Patient Yes -Correct Side, Site, Position Yes -Correct Procedure Yes -Procedure Performed Yes -Type of Procedure Debridement -Clinical Debridement Subcutaneous -Post Debridement Size (cm) - Length 0.7 0 -Post Debridement Size (cm) - Width 0.2 0 -Post Debridement Size (cm) - Depth 0.1 0 -Total Square Cm 0.14 0 -Wound/Ulcer Outcome Not Healed Healed- Epithelialized -Ulcer Cleansing Rinsed/ Irrigated with Saline -Foul Odor after Cleansing No -Bioengineered Tissue No -Bleeding Controlled with NA -Offloading No -Type of Offloading Surgical Shoe #2 R Heel -Time 14:33 12:22 15:13 -Correct Patient Yes Yes Yes -Correct Side, Site, Position Yes Yes Yes -Correct Procedure Yes Yes Yes -Procedure Performed Yes Yes Yes -Type of Procedure Debridement Debridement Debridement -Clinical Debridement Subcutaneous Subcutaneous Subcutaneous -Post Debridement Size (cm) - Length 1.2 1.0 1 -Post Debridement Size (cm) - Width 1.1 1.1 1 -Post Debridement Size (cm) - Depth 0.4 0.3 0.4 -Total Square Cm 1.32 1.10 1 -Wound/Ulcer Outcome Not Healed Not Healed Not Healed -Ulcer Cleansing Rinsed/ Rinsed/ Not Cleansed Irrigated with Irrigated with Saline Saline -Foul Odor after Cleansing No No No -Bioengineered Tissue No No No -Bleeding Controlled with NA NA NA -Offloading No No No -Type of Offloading Surgical Shoe Surgical Shoe -Treatment Response Procedure Procedure Procedure Tolerated Well Tolerated Well Tolerated Well Pain Scale: 0-10 Numeric Is Patient Pain Free? Yes No No 07/11/18 15:09 Wound Center Nurse 2 #5 R Lower [place] -Time 15:10 -Correct Patient Yes -Correct Side, Site, Position Yes -Correct Procedure Yes -Procedure Performed Yes -Type of Procedure Debridement -Clinical Debridement Subcutaneous -Post Debridement Size (cm) - Length 0.6 -Post Debridement Size (cm) - Width 2.4 -Post Debridement Size (cm) - Depth 0.1 -Total Square Cm 1.44 -Wound/Ulcer Outcome Not Healed -Ulcer Cleansing Rinsed/ Irrigated with Saline -Foul Odor after Cleansing No -Bioengineered Tissue No -Bleeding Controlled with NA -Offloading No -Treatment Response Procedure Tolerated Well #4 RIGHT ACHILLES -Time 15:11 -Correct Patient Yes -Correct Side, Site, Position Yes -Correct Procedure Yes -Procedure Performed Yes -Type of Procedure Debridement -Clinical Debridement Subcutaneous -Post Debridement Size (cm) - Length 0.8 -Post Debridement Size (cm) - Width 0.8 -Post Debridement Size (cm) - Depth 0.2 -Total Square Cm 0.64 -Wound/Ulcer Outcome Not Healed -Ulcer Cleansing Not Cleansed -Foul Odor after Cleansing No -Bioengineered Tissue No -Bleeding Controlled with NA -Offloading No -Type of Offloading -Treatment Response Procedure Not Tolerated Well #3 Right Medial Whitney -Time -Correct Patient -Correct Side, Site, Position -Correct Procedure -Procedure Performed -Type of Procedure -Clinical Debridement -Post Debridement Size (cm) - Length -Post Debridement Size (cm) - Width -Post Debridement Size (cm) - Depth -Total Square Cm -Wound/Ulcer Outcome -Ulcer Cleansing -Foul Odor after Cleansing -Bioengineered Tissue -Bleeding Controlled with -Offloading -Type of Offloading #2 R Heel -Time 15:23 -Correct Patient Yes -Correct Side, Site, Position Yes -Correct Procedure Yes -Procedure Performed Yes -Type of Procedure Debridement -Clinical Debridement Subcutaneous -Post Debridement Size (cm) - Length 1.5 -Post Debridement Size (cm) - Width 1.1 -Post Debridement Size (cm) - Depth 0.5 -Total Square Cm 1.65 -Wound/Ulcer Outcome Not Healed -Ulcer Cleansing Not Cleansed -Foul Odor after Cleansing No -Bioengineered Tissue No -Bleeding Controlled with NA -Offloading -Type of Offloading -Treatment Response Procedure Not Tolerated Well Pain Scale: 0-10 Numeric Is Patient Pain Free? No Wound debrided: right medial whitney Laterality: Right Type of Debridement: Excisional debridement Anesthesia Used: 4% Lidocaine Solution Depth: Down to and including healthy tissue, in the subcutaneous layer Percentage of wound debrided: 100 Instrument Used: 5mm curette Tissue Removed: yellow slough, devitalized tissue Severity: Fat Layer Exposed Amount of bleeding with debridement: Mild Bleeding Controlled with: Compression and gauze Patient tolerated procedure well - Additional Wound Wound debrided: right achilles Laterality: Right Wound Grade/Stage: Waggner stage 2 Type of Debridement: Excisional debridement Anesthesia Used: 4% Lidocaine Solution, 5% Lidocaine Gel, - - lidocaine with epi Depth: Down to and including healthy tissue, in the subcutaneous layer Percentage of wound debrided: 100 Instrument Used: 5mm curette Tissue Removed: yellow slough, devitalized tissue Severity: Fat Layer Exposed Amount of bleeding with debridement: Mild Bleeding Controlled with: Compression and gauze Patient tolerated procedure: Patient tolerated procedure well - Additional Wound Wound debrided: right heel Laterality: Right Type of Debridement: Excisional debridement Anesthesia Used: 4% Lidocaine Solution, 5% Lidocaine Gel, - - lidocaine w/ epi Depth: Down to and including healthy tissue, in the subcutaneous layer Percentage of wound debrided: 100 Instrument Used: 5mm curette Tissue Removed: yellow slough, devitalized tissue Severity: Fat Layer Exposed Amount of bleeding with debridement: Mild Bleeding Controlled with: Compression and gauze Patient tolerated procedure: Patient tolerated procedure well Assessment/Plan Clinical Impression(s) from Imaging Studies Ankle X-Ray 06/27/18 13:00 IMPRESSION: 1. 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 2. Mild diffuse soft tissue swelling. Right leg postsurgical change. 3. No fracture or acute osseous abnormality. 4. Chronic findings include atherosclerotic calcification sent posterior calcaneal spur. at 0616 Reported and signed by: Gurdeep Ruggiero MD Electronically Signed: Gurdeep Ruggiero, at 6:15 EST Tel , Service support , Foot X-Ray 06/27/18 13:13 IMPRESSION: 1. Generalized bony demineralization in keeping with disuse osteoporosis or possibly reflex sympathetic dystrophy (complex regional pain syndrome). 2. No fracture or osteomyelitis. 3. Chronic deformities of the great toe and second metatarsal head. Details above. 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 Diabetes mellitus - uncontrolled. Peripheral vascular disease - status post revascularization but re-occlusion. right whitney venous ulcer - healed Plan: Gibson's ulcers were evaluated and debrided today. There is not much improvement in his ulcers overall which may be due to the MRSA infection. Xrays showed no osteomyelitis. Records from vascular have been reviewed and it appears that Dr. Navas recommended a SFA-ant. tib. bypass for his right leg which is scheduled for 08/07/18. Discussed offloading importance and gave him a surgical shoe to wear to offload his heel. Discuss TCC but he refuses at this time. Single layer tubigrip compression advised if he can tolerate this, avoidance of idle standing or sitting with legs hanging down. Encouraged improved control of his blood sugars. Encouraged him to seek consultation with pain management for his pain and gave him a 7 day RX (#56) for tramadol to use for pain as needed on 07/04/18. [place]ARRS checked and appropriate. Encouarged to call with increased drainage, redness or fever or chills. Will f/u in 1 week.
== END 2018-07-17 23:59 ==
LOC: WC 14:45
PROVIDERS: Family Provider Family Medicine; PCP Family Medicine; Visit Provider Family Medicine
DX: E11.621 Type 2 diabetes mellitus with foot ulcer (principal); E11.622 Type 2 diabetes mellitus with other skin ulcer; E11.65 Type 2 diabetes mellitus with hyperglycemia; E11.51 Type 2 diabetes mellitus with diabetic peripheral angiopathy without gangrene; L97.412 Non-pressure chronic ulcer of right heel and midfoot with fat layer exposed; L97.312 Non-pressure chronic ulcer of right ankle with fat layer exposed; L97.812 Non-pressure chronic ulcer of other part of right lower leg with fat layer exposed
CPT/HCPCS: 11042; 73610; 73630; 87070; 87075; 87186; 87205

== ENCOUNTER → 2018-07-25 15:55 | Outpatient (CLI) | payer MEDICARE, OTHER, SELFPAY ==
[2018-07-18 14:55] VITALS: BMI 27.3
[2018-07-25 14:21] VITALS: BMI 27.3
--- NOTE | 2018-07-25 16:04 | CT_ITS ---
STUDY: CTA OF THE ABDOMINAL AORTA AND BILATERAL LOWER EXTREMITIES REASON FOR EXAM: Male, 68 years old. Right foot ulcer for 5-6 years RADIATION DOSAGE (If Supplied By Facility): CTDIvol = ( 8.65 ) mGy, DLP = ( 1281.65 ) mGycm TECHNIQUE: Axial CT angiography multi-detector data acquisition was obtained from the lung bases to the feet following intravenous administration of 100 ml of Isovue 370 contrast. Axial images and MIP images were reconstructed from the axial data set. Post-processing of the angiographic images was performed, with multiplanar reformation and 3D reconstruction. Individualized dose optimization techniques were used for this CT. TECHNICAL QUALITY: Fair COMPARISON: 12/19/2017 Descriptors of Narrowing: None (0%) Mild (< 50%) Moderate (50-70%) Severe (70-90%) Subtotal/Total Occlusion (90-100%) Non-Evaluable (technically non-diagnostic FINDINGS: Abdominal aorta: Mild to moderate calcified and noncalcified plaque of the infrarenal aorta without aneurysm, dissection or substantial narrowing of the aortic lumen. Celiac and superior mesenteric arteries: Minimal atherosclerosis without significant stenosis. Inferior mesenteric artery: Patent. Right renal artery(arteries): Minimal atherosclerosis at its origin with less than 40% stenosis. Left renal artery(arteries): Mild atherosclerosis of the origin with stenosis likely approaching 50%. Right common iliac artery: Mild plaque with less than 50% narrowing. Right external iliac artery: Mild to moderate plaque with less than 50% narrowing. Right internal iliac artery: Proximal occlusion with distal reconstitution. Left common iliac artery: Ectatic with mild plaque without significant stenosis. Left external iliac artery: Less than 50% narrowing. Left internal iliac artery: Less than 50% narrowing. RIGHT LOWER EXTREMITY Right common femoral artery: Moderate plaque with less than 50% narrowing Right profundus femoris: No demonstrated narrowing. Right superficial femoral: Occluded 2 cm below the origin. Occlusion is proximal to the endovascular stent which remains occluded. Right popliteal artery: Occluded Right tibioperoneal trunk: Occlusion Right anterior tibial artery: Proximal collateral reconstitution patent to the level of the foot. Right posterior tibial artery: Occluded proximally with minimal distal reconstitution in the lower leg grossly patent into the foot. Right peroneal artery: Occluded proximally. Distal reconstitution. LEFT LOWER EXTREMITY Left common femoral artery: Less than 50% narrowing. Left profundus femoris: Less than 50% narrowing. Left superficial femoral: Occluded at the origin. Minimal distal reconstitution. Left popliteal artery: Occluded Left tibioperoneal trunk: Occluded Left anterior tibial artery: Collateral proximal reconstitution but occludes above the ankle, new since the prior study. Left posterior tibial artery: Occluded proximally opacifies to the level the foot. Left peroneal artery: Proximal reconstitution. Visible to the ankle. Stable diffuse edema of the bilateral legs extending into the feet. There are degenerative changes of the bilateral legs. The liver, spleen, pancreas and gallbladder are unremarkable. The bilateral renal cysts are grossly similar. Moderate fecal retention of the colon. No retroperitoneal adenopathy. Degenerative and operative changes of the lumbar spine again demonstrated. CT/CTA Abd w/Runoff W/WO Contrast IMPRESSION: 1. Since 12/19/2017, very little interval change except for new occlusion of distal left anterior tibial artery. Limited assessment of the runoff given significant inflow (bilateral femoral artery occlusion) deficiency. 2. Similar bilateral superficial femoral artery occlusion. 3. Details above. Electronically Signed: Amado Little MD at 18:22 EST , Service support ,
== END ==
PROVIDERS: Family Provider Family Medicine; PCP Family Medicine; Referring Provider Surgery Vascular Surgery; Visit Provider Surgery Vascular Surgery
DX: I70.245 Atherosclerosis of native arteries of left leg with ulceration of other part of foot (principal); I70.234 Atherosclerosis of native arteries of right leg with ulceration of heel and midfoot
CPT/HCPCS: 11042; 75635; Q9967

== ENCOUNTER 2018-08-01 13:45 | Outpatient (RCR) | payer MEDICARE, OTHER, SELFPAY ==
[2018-07-18 01:36] VITALS: BP 127/71; PULSE 92; RESP 22; TEMP 37.1
[2018-07-18 14:55] VITALS: BP 131/91; PULSE 82; RESP 18; TEMP 36.9; BMI 27.3
--- NOTE | 2018-07-18 17:54 | PCM.WC.PN ---
(1) Type 2 diabetes, uncontrolled, with ulcer of heel Status: Chronic Current Visit: Yes Code(s): E11.621 - Type 2 diabetes mellitus with foot ulcer; E11.65 - Type 2 diabetes mellitus with hyperglycemia; L97.409 - Non-pressure chronic ulcer of unspecified heel and midfoot with unspecified severity (2) Venous ulcer of right lower extremity without varicose veins Status: Chronic Current Visit: Yes Code(s): I87.2 - Venous insufficiency (chronic) (peripheral); L97.919 - Non-pressure chronic ulcer of unspecified part of right lower leg with unspecified severity (3) Non-healing open wound of heel Status: Chronic Current Visit: Yes Qualifiers: Encounter type: subsequent encounter Code(s): S91.309A - Unspecified open wound, unspecified foot, initial encounter (4) Peripheral vascular disease Status: Chronic Current Visit: Yes Code(s): I73.9 - Peripheral vascular disease, unspecified (5) Type II diabetes mellitus Status: Chronic Current Visit: Yes Qualifiers: Diabetes mellitus medical terminologist insulin use: unspecified medical terminologist insulin use status Diabetes mellitus complication status: with skin complications Diabetes mellitus complication detail: with foot ulcer Qualified Code(s): E11.621 - Type 2 diabetes mellitus with foot ulcer; L97.509 - Non-pressure chronic ulcer of other part of unspecified foot with unspecified severity Code(s): E11.9 - Type 2 diabetes mellitus without complications Type of Wound Date of Service: 07/18/18 Chief Complaint: Nonhealing ulcers right heel History of Wound: This 68-year-old male is here for evaluation of an ulcer of his right heel and his right whitney. He states that he has had an ulcer approx. 5 years ago of this same heel and was treated here and was healed after vascular interventions by Dr. Navas. He has noticed increased pain in his heel for the last few months and approx. 5 weeks ago he noted an open wound to his right heel. He was using gauze but this started to irritate his skin and has been using silvadene and adaptic to the wound with tape for the last few weeks. He has not had any treatment with antibiotics for the wound. He is self-referred for treatment here. He does follow with Dr. 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 He has had procedures for his arterial disease in past to both of his lower extremities. From review of records it seems that Dr. Navas planned to do a right SFA-ant. tib bypass but it does not appear that this was done and patient denies having any bypass procedures other than his heart. It sounds like he is trying alternative treatments with supplements and chelation therapy. He also has diabetes and his last A1C several months ago was 7.2% but he stopped glyburide because he felt it was causing blisters of his legs. He does wear diabetic shoes. He has been undergoing chelation treatments by Dr. German in [place]. Dr. German prescribed him oxycodone-APAP 5/325 mg #60 which were filled on 05/22/18 for pain, he has six tablets left from this prescription, and he is asking for pain medication to treat pain from debridement. He reports having xrays done several months ago of his right heel due to pain which did not show any osteomyelitis or acute fractures. He denies fever, chills, erythema or heavy drainage. He reports significant pain and discomfort of his right heel and his entire right leg which no one can explain. Progress of Wound: Gibson is here to follow up for nonhealing ulcers of his right foot. He tolerated the dressings and is wearing tubigrip compression most of the time. He continues to have severe pain in his ankle/heel. Wound culture was positive for MRSA. He has been taking doxycycline and finished this Saturday and Saturday he began to have increased pain again. He developed a new venous ulcer of his right medial whitney last week from edema and has another on his right second toe this week. He has been trying to elevate his foot and has been using his surgical shoe to offload as well. He has a procedure scheduled with Dr. Navas for arterial disease on 08/07/18. Denies fever or chills or increased drainage. - Physical Exam Vital Signs Temp Pulse Resp BP 98.4 F 82 18 131/91 H 07/18/18 14:55 07/18/18 14:55 07/18/18 14:55 07/18/18 14:55 General: Alert, Oriented x3, Cooperative, No apparent distress HEENT: Atraumatic, Normocephalic Oral: Moist Mucosa Extremities: Edema Skin: Ulcer/ Wound Wound Measurements and Assessment WC - Nurse 1 - General Ulcer Measurement Start: 07/18/18 14:55 Freq: Status: Active Protocol: Activity Type Activity Date Activity User E-Sign Co-Sign Detail Recorded Client Recorded Date Recorded By Document 07/18/18 14:55 [facility] [id number] 07/18/18 15:14 [facility] 07/18/18 14:55 Wound Center Nurse 1 [Ulcer Assessment] #5 R Lower Whitney -Combined with other wound No -Current Size (cm) - Length 0.3 -Current Size (cm) - Width 1.3 -Current Size (cm) - Depth 0.1 -Total Square Cm 0.39 -Date of Last Picture (Recall this 07/18/18 field) -Photo Taken Yes -Epithelialization None Present -Tunneling No -Undermining/Tunneling No -Circular Undermining No -Exudate Amt None Present -Wound Margin Flat & Intact -Granulation Amt None Present (0 %) -Slough/Fibrin Yes -Necrosis Amt Large (67-100%) -Necrotic Tissue Type Eschar -Structure Exposed N/A -Texture (Shahana-wound Skin Appearance) Scarring -Moisture (Shahana-wound Skin Appearance Dry/Scaly ) -Color (Shahana-wound Skin Appearance) Assessed -Temperature (Shahana-wound Skin No Abnormality Appearance) (Pt Warm) -Tenderness on Palpation (Shahana-wound No Skin Appearance) -Ulcer Cleansing Rinsed/ Irrigated with Saline -Foul Odor after Cleansing No -Anesthetic Used 5% Lidocaine Gel #4 RIGHT ACHILLES -Combined with other wound No -Current Size (cm) - Length 0.7 -Current Size (cm) - Width 0.6 -Current Size (cm) - Depth 0.2 -Total Square Cm 0.42 -Date of Last Picture (Recall this 07/18/18 field) -Photo Taken Yes -Epithelialization None Present -Tunneling No -Undermining/Tunneling No -Circular Undermining No -Exudate Amt None Present -Wound Margin Flat & Intact -Granulation Amt None Present (0 %) -Slough/Fibrin Yes -Necrosis Amt Large (67-100%) -Necrotic Tissue Type Eschar -Structure Exposed N/A -Texture (Shahana-wound Skin Appearance) Scarring -Moisture (Shahana-wound Skin Appearance Dry/Scaly ) -Color (Shahana-wound Skin Appearance) Assessed -Temperature (Shahana-wound Skin No Abnormality Appearance) (Pt Warm) -Tenderness on Palpation (Shahana-wound Yes Skin Appearance) -Ulcer Cleansing Rinsed/ Irrigated with Saline -Foul Odor after Cleansing No -Anesthetic Used 5% Lidocaine Gel #2 R Heel -Combined with other wound No -Current Size (cm) - Length 1.6 -Current Size (cm) - Width 1.1 -Current Size (cm) - Depth 0.4 -Total Square Cm 1.76 -Date of Last Picture (Recall this 07/18/18 field) -Photo Taken Yes -Epithelialization None Present -Tunneling Yes -Tunneling Position (O'clock) 6 -Tunneling Distance (cm) 0.9 -Undermining/Tunneling Yes -Undermining/Tunneling Starts (O' 9 clock) -Undermining/Tunneling Ends (O'clock) 1 -Maximum Distance (cm) 0.3 -Circular Undermining No -Exudate Amt Small -Exudate Type Serosanguineous -Wound Margin Flat & Intact -Granulation Amt Small (1-33%) -Granulation Quality [place] -Slough/Fibrin Yes -Necrosis Amt Large (67-100%) -Necrotic Tissue Type Adherent Slough -Texture (Shahana-wound Skin Appearance) Assessed Callus Scarring -Moisture (Shahana-wound Skin Appearance Assessed ) Dry/Scaly -Color (Shahana-wound Skin Appearance) Assessed -Temperature (Shahana-wound Skin No Abnormality Appearance) (Pt Warm) -Tenderness on Palpation (Shahana-wound Yes Skin Appearance) -Ulcer Cleansing Rinsed/ Irrigated with Saline -Foul Odor after Cleansing No -Anesthetic Used 5% Lidocaine Gel [Edema Assessment] -Lower Limb Edema Present Yes -Right Calf (cm) 34.6 -Right Ankle (cm) 21.7 WC - Nurse 2 - General Ulcer CM Notes Start: 07/18/18 14:55 Freq: Status: Active Protocol: Activity Type Activity Date Activity User E-Sign Co-Sign Detail Recorded Client Recorded Date Recorded By Document 07/18/18 15:35 MW [id number] 07/18/18 15:54 MW 07/18/18 15:35 Wound Center Nurse 2 [Procedure/Treatment] #5 R Lower [place] -Time 15:39 -Correct Patient Yes -Correct Side, Site, Position Yes -Correct Procedure Yes -Procedure Performed Yes -Type of Procedure Debridement -Clinical Debridement Subcutaneous -Post Debridement Size (cm) - Length 1.0 -Post Debridement Size (cm) - Width 0.1 -Post Debridement Size (cm) - Depth 0.1 -Total Square Cm 0.10 -Wound/Ulcer Outcome Not Healed -Ulcer Cleansing Rinsed/ Irrigated with Saline -Foul Odor after Cleansing No -Bioengineered Tissue No -Bleeding Controlled with Pressure -Offloading No -Treatment Response Procedure Tolerated Well #4 RIGHT ACHILLES -Time 15:39 -Correct Patient Yes -Correct Side, Site, Position Yes -Correct Procedure Yes -Procedure Performed Yes -Type of Procedure Debridement -Clinical Debridement Subcutaneous -Post Debridement Size (cm) - Length 1.2 -Post Debridement Size (cm) - Width 1.0 -Post Debridement Size (cm) - Depth 0.2 -Total Square Cm 1.20 -Wound/Ulcer Outcome Not Healed -Ulcer Cleansing Rinsed/ Irrigated with Saline -Foul Odor after Cleansing No -Bioengineered Tissue No -Injectable Lidocaine w/ Epi (%) 1 -Injectable Lidocaine w/ Epi (mls) 5 -Bleeding Controlled with NA -Offloading No -Treatment Response Procedure Tolerated Well #2 R Heel -Time 15:39 -Correct Patient Yes -Correct Side, Site, Position Yes -Correct Procedure Yes -Procedure Performed Yes -Type of Procedure Debridement -Clinical Debridement Subcutaneous -Post Debridement Size (cm) - Length 1.4 -Post Debridement Size (cm) - Width 1.2 -Post Debridement Size (cm) - Depth 0.5 -Total Square Cm 1.68 -Wound/Ulcer Outcome Not Healed -Ulcer Cleansing Rinsed/ Irrigated with Saline -Foul Odor after Cleansing No -Bioengineered Tissue No -Injectable Lidocaine w/ Epi (%) 1 -Injectable Lidocaine w/ Epi (mls) 5 -Other undermining @6- 1.0cm -Offloading No -Treatment Response Procedure Tolerated Well [See Physician Procedure note for Specifics] Pain Scale: 0-10 Numeric [Pain] -Is Patient Pain Free? Yes Psych/Mental Status: Normal Affect, Appropriate Debridement Note Post-Debridement Measurements/Treatment WC - Nurse 2 - General Ulcer CM Notes Start: 07/18/18 14:55 Freq: Status: Active Protocol: Activity Type Activity Date Activity User E-Sign Co-Sign Detail Recorded Client Recorded Date Recorded By Document 07/18/18 15:35 MW [id number] 07/18/18 15:54 MW 07/18/18 15:35 Wound Center Nurse 2 #5 R [place] -Time 15:39 -Correct Patient Yes -Correct Side, Site, Position Yes -Correct Procedure Yes -Procedure Performed Yes -Type of Procedure Debridement -Clinical Debridement Subcutaneous -Post Debridement Size (cm) - Length 1.0 -Post Debridement Size (cm) - Width 0.1 -Post Debridement Size (cm) - Depth 0.1 -Total Square Cm 0.10 -Wound/Ulcer Outcome Not Healed -Ulcer Cleansing Rinsed/ Irrigated with Saline -Foul Odor after Cleansing No -Bioengineered Tissue No -Bleeding Controlled with Pressure -Offloading No -Treatment Response Procedure Tolerated Well #4 RIGHT ACHILLES -Time 15:39 -Correct Patient Yes -Correct Side, Site, Position Yes -Correct Procedure Yes -Procedure Performed Yes -Type of Procedure Debridement -Clinical Debridement Subcutaneous -Post Debridement Size (cm) - Length 1.2 -Post Debridement Size (cm) - Width 1.0 -Post Debridement Size (cm) - Depth 0.2 -Total Square Cm 1.20 -Wound/Ulcer Outcome Not Healed -Ulcer Cleansing Rinsed/ Irrigated with Saline -Foul Odor after Cleansing No -Bioengineered Tissue No -Injectable Lidocaine w/ Epi (%) 1 -Injectable Lidocaine w/ Epi (mls) 5 -Bleeding Controlled with NA -Offloading No -Treatment Response Procedure Tolerated Well #2 R Heel -Time 15:39 -Correct Patient Yes -Correct Side, Site, Position Yes -Correct Procedure Yes -Procedure Performed Yes -Type of Procedure Debridement -Clinical Debridement Subcutaneous -Post Debridement Size (cm) - Length 1.4 -Post Debridement Size (cm) - Width 1.2 -Post Debridement Size (cm) - Depth 0.5 -Total Square Cm 1.68 -Wound/Ulcer Outcome Not Healed -Ulcer Cleansing Rinsed/ Irrigated with Saline -Foul Odor after Cleansing No -Bioengineered Tissue No -Injectable Lidocaine w/ Epi (%) 1 -Injectable Lidocaine w/ Epi (mls) 5 -Other undermining @6- 1.0cm -Offloading No -Treatment Response Procedure Tolerated Well Pain Scale: 0-10 Numeric Is Patient Pain Free? Yes Wound debrided: right lower whitney Laterality: Right Type of Debridement: Excisional debridement Anesthesia Used: 4% Lidocaine Solution Depth: Down to and including healthy tissue, in the subcutaneous layer Percentage of wound debrided: 100 Instrument Used: 5mm curette Tissue Removed: yellow slough, devitalized tissue Severity: Fat Layer Exposed Amount of bleeding with debridement: Mild Bleeding Controlled with: Compression and gauze Patient tolerated procedure well - Additional Wound Wound debrided: right heel Laterality: Right Wound Grade/Stage: Valdez grade 2 Type of Debridement: Excisional debridement Anesthesia Used: 4% Lidocaine Solution, 5% Lidocaine Gel, - - 1% lidocaine with epinephrine Depth: Down to and including healthy tissue, in the subcutaneous layer Percentage of wound debrided: 100 Instrument Used: 5mm curette Tissue Removed: yellow slough, devitalized tissue Severity: Fat Layer Exposed Amount of bleeding with debridement: Mild Bleeding Controlled with: Compression and gauze Patient tolerated procedure: Patient tolerated procedure well - Additional Wound Wound debrided: right achilles Laterality: Right Wound Grade/Stage: Valdez grade 2 Type of Debridement: Excisional debridement Anesthesia Used: 4% Lidocaine Solution, - - 1% lidocaine with epinephrine Depth: Down to and including healthy tissue, in the subcutaneous layer Percentage of wound debrided: 100 Instrument Used: 5mm curette Tissue Removed: yellow slough, devitalized tissue Severity: Fat Layer Exposed Amount of bleeding with debridement: Mild Bleeding Controlled with: Compression and gauze Patient tolerated procedure: Patient tolerated procedure well Assessment/Plan Active Problems Type 2 diabetes, uncontrolled, with ulcer of heel (Chronic) Venous ulcer of right lower extremity without varicose veins (Chronic) Non-healing open wound of heel (Chronic) Peripheral vascular disease (Chronic) Type II diabetes mellitus (Chronic) Assessment: 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 Diabetes mellitus - uncontrolled. Peripheral vascular disease - status post revascularization but re-occlusion. right whitney venous ulcer - Plan: Gibson's ulcers were evaluated and debrided today. There is not much improvement in his ulcers overall which may be due to continued MRSA infection. Wound culture done today and started him on ciprofloxacin orally. Would consider IV antibiotic treatment if wound culture is still possitive. Xrays showed no osteomyelitis. Records from vascular have been reviewed and it appears that Dr. Navas recommended a SFA-ant. tib. bypass for his right leg which is scheduled for 08/07/18. Discussed offloading importance and gave him a surgical shoe to wear to offload his heel. Discuss TCC but he refuses at this time. Single layer tubigrip compression advised if he can tolerate this, avoidance of idle standing or sitting with legs hanging down. Encouraged improved control of his blood sugars. Encouraged him to seek consultation with pain management for his pain and gave him a 7 day RX (#56) for tramadol to use for pain as needed on 07/04/18. OARRS checked and appropriate. Encouarged to call with increased drainage, redness or fever or chills. Will f/u in 1 week.
[2018-07-25 14:21] VITALS: BP 144/71; PULSE 83; RESP 18; TEMP 36.8; BMI 27.3
--- NOTE | 2018-07-25 18:35 | PCM.WC.PN ---
(1) Type 2 diabetes, uncontrolled, with ulcer of heel Status: Chronic Current Visit: Yes Code(s): E11.621 - Type 2 diabetes mellitus with foot ulcer; E11.65 - Type 2 diabetes mellitus with hyperglycemia; L97.409 - Non-pressure chronic ulcer of unspecified heel and midfoot with unspecified severity Comment: right (2) Venous ulcer of right lower extremity without varicose veins Status: Resolved Current Visit: Yes Code(s): I87.2 - Venous insufficiency (chronic) (peripheral); L97.919 - Non-pressure chronic ulcer of unspecified part of right lower leg with unspecified severity (3) Non-healing open wound of heel Status: Chronic Current Visit: Yes Qualifiers: Encounter type: subsequent encounter Laterality: right Qualified Code(s): S91.301D - Unspecified open wound, right foot, subsequent encounter Code(s): S91.309A - Unspecified open wound, unspecified foot, initial encounter (4) Peripheral vascular disease Status: Chronic Current Visit: Yes Code(s): I73.9 - Peripheral vascular disease, unspecified (5) Type II diabetes mellitus Status: Chronic Current Visit: Yes Qualifiers: Diabetes mellitus senior living insulin use: unspecified senior living insulin use status Diabetes mellitus complication status: with skin complications Diabetes mellitus complication detail: with foot ulcer Qualified Code(s): E11.621 - Type 2 diabetes mellitus with foot ulcer; L97.509 - Non-pressure chronic ulcer of other part of unspecified foot with unspecified severity Code(s): E11.9 - Type 2 diabetes mellitus without complications Type of Wound Date of Service: 07/25/18 Chief Complaint: Nonhealing ulcers right heel History of Wound: This 68-year-old male is here for evaluation of an ulcer of his right heel and his right pat. He states that he has had an ulcer approx. 5 years ago of this same heel and was treated here and was healed after vascular interventions by Dr. Navas. He has noticed increased pain in his heel for the last few months and approx. beginning of May he noted an open wound to his right heel. He was using gauze but this started to irritate his skin and has been using silvadene and adaptic to the wound with tape for the last few weeks. He has not had any treatment with antibiotics for the wound. He is self-referred for treatment here. He does follow with Dr. 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 He has had procedures for his arterial disease in past to both of his lower extremities. From review of records it seems that Dr. Navas planned to do a right SFA-ant. tib bypass but it does not appear that this was done and patient denies having any bypass procedures other than his heart. It sounds like he is trying alternative treatments with supplements and chelation therapy. He also has diabetes and his last A1C several months ago was 7.2% but he stopped glyburide because he felt it was causing blisters of his legs. He does wear diabetic shoes. He has been undergoing chelation treatments by Dr. German in [place]. Dr. German prescribed him oxycodone-APAP 5/325 mg #60 which were filled on 05/22/18 for pain, he has six tablets left from this prescription, and he is asking for pain medication to treat pain from debridement. He reports having xrays done several months ago of his right heel due to pain which did not show any osteomyelitis or acute fractures. He denies fever, chills, erythema or heavy drainage. He reports significant pain and discomfort of his right heel and his entire right leg which no one can explain. Progress of Wound: Gibson is here to follow up for nonhealing ulcers of his right foot. He tolerated the dressings and is wearing tubigrip compression most of the time. He continues to have severe pain in his ankle/heel. Wound culture was positive for MRSA again. He has been taking Ciprofloxacin since last week but has not noticed any improvement in his pain. He developed a new venous ulcer of his right medial pat last week from edema and has another on his right second toe this week. He has been trying to elevate his foot and has been using his surgical shoe to offload as well. He has a procedure scheduled with Dr. Navas for arterial disease on 08/07/18. Denies fever or chills or increased drainage. - Physical Exam Vital Signs Temp Pulse Resp BP 98.2 F 83 18 144/71 H 07/25/18 14:21 07/25/18 14:21 07/25/18 14:21 07/25/18 14:21 General: Alert, Oriented x3, Cooperative, No apparent distress HEENT: Atraumatic, Normocephalic Oral: Moist Mucosa Extremities: Edema Skin: Ulcer/ Wound Wound Measurements and Assessment WC - Nurse 1 - General Ulcer Measurement Start: 07/18/18 14:55 Freq: Status: Active Protocol: Activity Type Activity Date Activity User E-Sign Co-Sign Detail Recorded Client Recorded Date Recorded By Document 07/25/18 14:21 RI [id number] 07/25/18 14:35 RI 07/25/18 14:21 Wound Center Nurse 1 [Ulcer Assessment] #5 R Lower Pat -Current Size (cm) - Length 0.1 -Current Size (cm) - Width 0.1 -Current Size (cm) - Depth 0.1 -Total Square Cm 0.01 #4 RIGHT ACHILLES -Combined with other wound No -Current Size (cm) - Length 1 -Current Size (cm) - Width 0.8 -Current Size (cm) - Depth 0.2 -Total Square Cm 0.8 -Photo Taken No -Tunneling No -Undermining/Tunneling No -Circular Undermining No -Exudate Amt Small -Exudate Type Serosanguineous -Wound Margin Thickened & Rolled Under -Granulation Amt Small (1-33%) -Granulation Quality Pale [place] -Necrosis Amt Large (67-100%) -Necrotic Tissue Type Adherent Slough -Texture (Shahana-wound Skin Appearance) Assessed Localized Edema -Moisture (Shahana-wound Skin Appearance Assessed ) Maceration -Color (Shahana-wound Skin Appearance) Assessed -Temperature (Shahana-wound Skin No Abnormality Appearance) (Pt Warm) -Tenderness on Palpation (Shahana-wound No Skin Appearance) -Ulcer Cleansing Wound Cleanser -Foul Odor after Cleansing No -Anesthetic Used 4% Lidocaine Solution #2 R Heel -Combined with other wound No -Current Size (cm) - Length 1.7 -Current Size (cm) - Width 1.5 -Current Size (cm) - Depth 0.3 -Total Square Cm 2.55 -Photo Taken No -Tunneling No -Undermining/Tunneling No -Circular Undermining No -Exudate Amt Small -Exudate Type Serosanguineous -Wound Margin Thickened & Rolled Under -Granulation Amt Small (1-33%) -Granulation Quality Pale [place] -Necrosis Amt Large (67-100%) -Necrotic Tissue Type Adherent Slough -Texture (Shahana-wound Skin Appearance) Assessed Localized Edema -Moisture (Shahana-wound Skin Appearance Assessed ) Maceration -Color (Shahana-wound Skin Appearance) Assessed -Temperature (Shahana-wound Skin No Abnormality Appearance) (Pt Warm) -Tenderness on Palpation (Shahana-wound No Skin Appearance) -Ulcer Cleansing Wound Cleanser -Foul Odor after Cleansing No -Anesthetic Used 4% Lidocaine Solution WC - Nurse 2 - General Ulcer CM Notes Start: 07/18/18 14:55 Freq: Status: Active Protocol: Activity Type Activity Date Activity User E-Sign Co-Sign Detail Recorded Client Recorded Date Recorded By Document 07/25/18 15:03 DV [id number] 07/25/18 15:21 DV 07/25/18 15:03 Wound Center Nurse 2 [Procedure/Treatment] #5 R Lower Pat -Time 15:05 -Correct Patient Yes -Correct Side, Site, Position Yes -Procedure Performed No -Post Debridement Size (cm) - Length 0 -Post Debridement Size (cm) - Width 0 -Post Debridement Size (cm) - Depth 0 -Total Square Cm 0 -Wound/Ulcer Outcome Healed- Epithelialized #4 RIGHT ACHILLES -Time 15:05 -Correct Patient Yes -Correct Side, Site, Position Yes -Correct Procedure Yes -Procedure Performed Yes -Type of Procedure Debridement -Clinical Debridement Subcutaneous -Post Debridement Size (cm) - Length 0.9 -Post Debridement Size (cm) - Width 1.0 -Post Debridement Size (cm) - Depth 0.2 -Total Square Cm 0.90 -Wound/Ulcer Outcome Not Healed -Ulcer Cleansing Rinsed/ Irrigated with Saline -Foul Odor after Cleansing No -Bioengineered Tissue No -Bleeding Controlled with Pressure -Other lidacaine 2% w/ epi -Offloading Yes -Type of Offloading Surgical Shoe -Treatment Response Procedure Not Tolerated Well #2 R Heel -Time 15:07 -Correct Patient Yes -Correct Side, Site, Position Yes -Correct Procedure Yes -Procedure Performed Yes -Type of Procedure Debridement -Clinical Debridement Subcutaneous -Post Debridement Size (cm) - Length 1.6 -Post Debridement Size (cm) - Width 1.6 -Post Debridement Size (cm) - Depth 0.2 -Total Square Cm 2.56 -Wound/Ulcer Outcome Not Healed -Ulcer Cleansing Rinsed/ Irrigated with Saline -Foul Odor after Cleansing No -Bioengineered Tissue No -Bleeding Controlled with Pressure -Other lidacaine 2% w/ epi -Offloading No -Type of Offloading Surgical Shoe -Treatment Response Procedure Tolerated Well [See Physician Procedure note for Specifics] Pain Scale: 0-10 Numeric [Pain] -Is Patient Pain Free? Yes Psych/Mental Status: Normal Affect, Appropriate Debridement Note Post-Debridement Measurements/Treatment WC - Nurse 2 - General Ulcer CM Notes Start: 07/18/18 14:55 Freq: Status: Active Protocol: Activity Type Activity Date Activity User E-Sign Co-Sign Detail Recorded Client Recorded Date Recorded By Document 07/18/18 15:35 MW [id number] 07/18/18 15:54 MW Document 07/25/18 15:03 DV [id number] 07/25/18 15:21 DV 07/18/18 07/25/18 15:35 15:03 Wound Center Nurse 2 #5 R Lower Pat -Time 15:39 15:05 -Correct Patient Yes Yes -Correct Side, Site, Position Yes Yes -Correct Procedure Yes -Procedure Performed Yes No -Type of Procedure Debridement -Clinical Debridement Subcutaneous -Post Debridement Size (cm) - Length 1.0 0 -Post Debridement Size (cm) - Width 0.1 0 -Post Debridement Size (cm) - Depth 0.1 0 -Total Square Cm 0.10 0 -Wound/Ulcer Outcome Not Healed Healed- Epithelialized -Ulcer Cleansing Rinsed/ Irrigated with Saline -Foul Odor after Cleansing No -Bioengineered Tissue No -Bleeding Controlled with Pressure -Offloading No -Treatment Response Procedure Tolerated Well #4 RIGHT ACHILLES -Time 15:39 15:05 -Correct Patient Yes Yes -Correct Side, Site, Position Yes Yes -Correct Procedure Yes Yes -Procedure Performed Yes Yes -Type of Procedure Debridement Debridement -Clinical Debridement Subcutaneous Subcutaneous -Post Debridement Size (cm) - Length 1.2 0.9 -Post Debridement Size (cm) - Width 1.0 1.0 -Post Debridement Size (cm) - Depth 0.2 0.2 -Total Square Cm 1.20 0.90 -Wound/Ulcer Outcome Not Healed Not Healed -Ulcer Cleansing Rinsed/ Rinsed/ Irrigated with Irrigated with Saline Saline -Foul Odor after Cleansing No No -Bioengineered Tissue No No -Injectable Lidocaine w/ Epi (%) 1 -Injectable Lidocaine w/ Epi (mls) 5 -Bleeding Controlled with NA Pressure -Other lidacaine 2% w/ epi -Offloading No Yes -Type of Offloading Surgical Shoe -Treatment Response Procedure Procedure Not Tolerated Well Tolerated Well #2 R Heel -Time 15:39 15:07 -Correct Patient Yes Yes -Correct Side, Site, Position Yes Yes -Correct Procedure Yes Yes -Procedure Performed Yes Yes -Type of Procedure Debridement Debridement -Clinical Debridement Subcutaneous Subcutaneous -Post Debridement Size (cm) - Length 1.4 1.6 -Post Debridement Size (cm) - Width 1.2 1.6 -Post Debridement Size (cm) - Depth 0.5 0.2 -Total Square Cm 1.68 2.56 -Wound/Ulcer Outcome Not Healed Not Healed -Ulcer Cleansing Rinsed/ Rinsed/ Irrigated with Irrigated with Saline Saline -Foul Odor after Cleansing No No -Bioengineered Tissue No No -Injectable Lidocaine w/ Epi (%) 1 -Injectable Lidocaine w/ Epi (mls) 5 -Bleeding Controlled with Pressure -Other undermining @6- lidacaine 2% w/ 1.0cm epi -Offloading No No -Type of Offloading Surgical Shoe -Treatment Response Procedure Procedure Tolerated Well Tolerated Well Pain Scale: 0-10 Numeric Is Patient Pain Free? Yes Yes Wound debrided: right lower pat Laterality: Right No debridement was completed today - wound is healed - Additional Wound Wound debrided: right achilles Laterality: Right Type of Debridement: Excisional debridement Anesthesia Used: 4% Lidocaine Solution, 5% Lidocaine Gel, - - 2% lidocaine with epi Depth: Down to and including healthy tissue, in the subcutaneous layer Percentage of wound debrided: 100 Instrument Used: 5mm curette Tissue Removed: yellwo slough, devitalized tissue Severity: Fat Layer Exposed Amount of bleeding with debridement: Mild Bleeding Controlled with: Compression and gauze Patient tolerated procedure: Patient tolerated procedure well - Additional Wound Wound debrided: right heel Laterality: Right Type of Debridement: Excisional debridement Anesthesia Used: 4% Lidocaine Solution, 5% Lidocaine Gel Depth: Down to and including healthy tissue, in the subcutaneous layer Percentage of wound debrided: 100 Instrument Used: 5mm curette Tissue Removed: yellow slough, devitalized tissue Severity: Fat Layer Exposed Amount of bleeding with debridement: Mild Bleeding Controlled with: Compression and gauze Patient tolerated procedure: Patient tolerated procedure well Assessment/Plan Active Problems Type 2 diabetes, uncontrolled, with ulcer of heel (Chronic) right Non-healing open wound of heel (Chronic) Peripheral vascular disease (Chronic) Type II diabetes mellitus (Chronic) Assessment: 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 Diabetes mellitus - uncontrolled. Peripheral vascular disease - status post revascularization but re-occlusion. right pat venous ulcer - healed Plan: Gibson's ulcers were evaluated and debrided today. There is not much improvement in his ulcers overall which may be due to his edema and PAD. Wound culture remained positive for MRSA even after treatment with doxycycline. He continues on ciprofloxacin which MRSA was also sensitive to. Xrays showed no osteomyelitis. Records from vascular have been reviewed and it appears that Dr. Navas recommended a SFA-ant. tib. bypass for his right leg which is scheduled for 08/07/18. Discussed offloading importance and gave him a surgical shoe to wear to offload his heel. Discuss TCC but he refuses at this time. Single layer tubigrip compression advised if he can tolerate this, avoidance of idle standing or sitting with legs hanging down. Encouraged improved control of his blood sugars. Encouraged him to seek consultation with pain management for his pain and gave him a 7 day RX (#56) for tramadol to use for pain as needed on 07/21/18. [place] checked and appropriate. Encouarged to call with increased drainage, redness or fever or chills. Will f/u in 1 week.
--- NOTE | 2018-07-25 18:40 | PN.PCM_ITS ---
(1) Type 2 diabetes, uncontrolled, with ulcer of heel Status: Chronic Current Visit: Yes Code(s): E11.621 - Type 2 diabetes mellitus with foot ulcer; E11.65 - Type 2 diabetes mellitus with hyperglycemia; L97.409 - Non-pressure chronic ulcer of unspecified heel and midfoot with unspecified severity Comment: right (2) Venous ulcer of right lower extremity without varicose veins Status: Resolved Current Visit: Yes Code(s): I87.2 - Venous insufficiency (chronic) (peripheral); L97.919 - Non-pressure chronic ulcer of unspecified part of right lower leg with unspecified severity (3) Non-healing open wound of heel Status: Chronic Current Visit: Yes Qualifiers: Encounter type: subsequent encounter Laterality: right Qualified Code(s): S91.301D - Unspecified open wound, right foot, subsequent encounter Code(s): S91.309A - Unspecified open wound, unspecified foot, initial encounter (4) Peripheral vascular disease Status: Chronic Current Visit: Yes Code(s): I73.9 - Peripheral vascular disease, unspecified (5) Type II diabetes mellitus Status: Chronic Current Visit: Yes Qualifiers: Diabetes mellitus group home insulin use: unspecified group home insulin use status Diabetes mellitus complication status: with skin complications Diabetes mellitus complication detail: with foot ulcer Qualified Code(s): E11.621 - Type 2 diabetes mellitus with foot ulcer; L97.509 - Non-pressure chronic ulcer of other part of unspecified foot with unspecified severity Code(s): E11.9 - Type 2 diabetes mellitus without complications Type of Wound Date of Service: 07/25/18 Chief Complaint: Nonhealing ulcers right heel History of Wound: This 68-year-old male is here for evaluation of an ulcer of his right heel and his right whitney. He states that he has had an ulcer approx. 5 years ago of this same heel and was treated here and was healed after vascular interventions by Dr. Navas. He has noticed increased pain in his heel for the last few months and approx. beginning of May he noted an open wound to his right heel. He was using gauze but this started to irritate his skin and has been using silvadene and adaptic to the wound with tape for the last few weeks. He has not had any treatment with antibiotics for the wound. He is self-referred for treatment here. He does follow with Dr. 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 He has had procedures for his arterial disease in past to both of his lower extremities. From review of records it seems that Dr. Navas planned to do a right SFA-ant. tib bypass but it does not appear that this was done and patient denies having any bypass procedures other than his heart. It sounds like he is trying alternative treatments with supplements and chelation therapy. He also has diabetes and his last A1C several months ago was 7.2% but he stopped glyburide because he felt it was causing blisters of his legs. He does wear diabetic shoes. He has been undergoing chelation treatments by Dr. German in [place]. Dr. German prescribed him oxycodone-APAP 5/325 mg #60 which were filled on 05/22/18 for pain, he has six tablets left from this prescription, and he is asking for pain medication to treat pain from debridement. He reports having xrays done several months ago of his right heel due to pain which did not show any osteomyelitis or acute fractures. He denies fever, chills, erythema or heavy drainage. He reports significant pain and discomfort of his right heel and his entire right leg which no one can explain. Progress of Wound: Gibson is here to follow up for nonhealing ulcers of his right foot. He tolerated the dressings and is wearing tubigrip compression most of the time. He continues to have severe pain in his ankle/heel. Wound culture was positive for MRSA again. He has been taking Ciprofloxacin since last week but has not noticed any improvement in his pain. He developed a new venous ulcer of his right medial whitney last week from edema and has another on his right second toe this week. He has been trying to elevate his foot and has been using his surgical shoe to offload as well. He has a procedure scheduled with Dr. Booker er for arterial disease on 08/07/18. Denies fever or chills or increased drainage. - Physical Exam Vital Signs Temp Pulse Resp BP 98.2 F 83 18 144/71 H 07/25/18 14:21 07/25/18 14:21 07/25/18 14:21 07/25/18 14:21 General: Alert, Oriented x3, Cooperative, No apparent distress HEENT: Atraumatic, Normocephalic Oral: Moist Mucosa Extremities: Edema Skin: Ulcer/ Wound Wound Measurements and Assessment WC - Nurse 1 - General Ulcer Measurement Start: 07/18/18 14:55 Freq: Status: Active Protocol: Activity Type Activity Date Activity User E-Sign Co-Sign Detail Recorded Client Recorded Date Recorded By Document 07/25/18 14:21 CO [id number] 07/25/18 14:35 CO 07/25/18 14:21 Wound Center Nurse 1 [Ulcer Assessment] #5 R Lower [place] -Current Size (cm) - Length 0.1 -Current Size (cm) - Width 0.1 -Current Size (cm) - Depth 0.1 -Total Square Cm 0.01 #4 RIGHT ACHILLES -Combined with other wound No -Current Size (cm) - Length 1 -Current Size (cm) - Width 0.8 -Current Size (cm) - Depth 0.2 -Total Square Cm 0.8 -Photo Taken No -Tunneling No -Undermining/Tunneling No -Circular Undermining No -Exudate Amt Small -Exudate Type Serosanguineous -Wound Margin Thickened & Rolled Under -Granulation Amt Small (1-33%) -Granulation Quality Pale [place] -Necrosis Amt Large (67-100%) -Necrotic Tissue Type Adherent Slough -Texture (Shahana-wound Skin Appearance) Assessed Localized Edema -Moisture (Shahana-wound Skin Appearance Assessed ) Maceration -Color (Shahana-wound Skin Appearance) Assessed -Temperature (Shahana-wound Skin No Abnormality Appearance) (Pt Warm) -Tenderness on Palpation (Shahana-wound No Skin Appearance) -Ulcer Cleansing Wound Cleanser -Foul Odor after Cleansing No -Anesthetic Used 4% Lidocaine Solution #2 R Heel -Combined with other wound No -Current Size (cm) - Length 1.7 -Current Size (cm) - Width 1.5 -Current Size (cm) - Depth 0.3 -Total Square Cm 2.55 -Photo Taken No -Tunneling No -Undermining/Tunneling No -Circular Undermining No -Exudate Amt Small -Exudate Type Serosanguineous -Wound Margin Thickened & Rolled Under -Granulation Amt Small (1-33%) -Granulation Quality Pale [place] -Necrosis Amt Large (67-100%) -Necrotic Tissue Type Adherent Slough -Texture (Shahana-wound Skin Appearance) Assessed Localized Edema -Moisture (Shahana-wound Skin Appearance Assessed ) Maceration -Color (Shahana-wound Skin Appearance) Assessed -Temperature (Shahana-wound Skin No Abnormality Appearance) (Pt Warm) -Tenderness on Palpation (Shahana-wound No Skin Appearance) -Ulcer Cleansing Wound Cleanser -Foul Odor after Cleansing No -Anesthetic Used 4% Lidocaine Solution WC - Nurse 2 - General Ulcer CM Notes Start: 07/18/18 14:55 Freq: Status: Active Protocol: Activity Type Activity Date Activity User E-Sign Co-Sign Detail Recorded Client Recorded Date Recorded By Document 07/25/18 15:03 DV [id number] 07/25/18 15:21 DV 07/25/18 15:03 Wound Center Nurse 2 [Procedure/Treatment] #5 R Lower [place] -Time 15:05 -Correct Patient Yes -Correct Side, Site, Position Yes -Procedure Performed No -Post Debridement Size (cm) - Length 0 -Post Debridement Size (cm) - Width 0 -Post Debridement Size (cm) - Depth 0 -Total Square Cm 0 -Wound/Ulcer Outcome Healed- Epithelialized #4 RIGHT ACHILLES -Time 15:05 -Correct Patient Yes -Correct Side, Site, Position Yes -Correct Procedure Yes -Procedure Performed Yes -Type of Procedure Debridement -Clinical Debridement Subcutaneous -Post Debridement Size (cm) - Length 0.9 -Post Debridement Size (cm) - Width 1.0 -Post Debridement Size (cm) - Depth 0.2 -Total Square Cm 0.90 -Wound/Ulcer Outcome Not Healed -Ulcer Cleansing Rinsed/ Irrigated with Saline -Foul Odor after Cleansing No -Bioengineered Tissue No -Bleeding Controlled with Pressure -Other lidacaine 2% w/ epi -Offloading Yes -Type of Offloading Surgical Shoe -Treatment Response Procedure Not Tolerated Well #2 R Heel -Time 15:07 -Correct Patient Yes -Correct Side, Site, Position Yes -Correct Procedure Yes -Procedure Performed Yes -Type of Procedure Debridement -Clinical Debridement Subcutaneous -Post Debridement Size (cm) - Length 1.6 -Post Debridement Size (cm) - Width 1.6 -Post Debridement Size (cm) - Depth 0.2 -Total Square Cm 2.56 -Wound/Ulcer Outcome Not Healed -Ulcer Cleansing Rinsed/ Irrigated with Saline -Foul Odor after Cleansing No -Bioengineered Tissue No -Bleeding Controlled with Pressure -Other lidacaine 2% w/ epi -Offloading No -Type of Offloading Surgical Shoe -Treatment Response Procedure Tolerated Well [See Physician Procedure note for Specifics] Pain Scale: 0-10 Numeric [Pain] -Is Patient Pain Free? Yes Psych/Mental Status: Normal Affect, Appropriate Debridement Note Post-Debridement Measurements/Treatment WC - Nurse 2 - General Ulcer CM Notes Start: 07/18/18 14:55 Freq: Status: Active Protocol: Activity Type Activity Date Activity User E-Sign Co-Sign Detail Recorded Client Recorded Date Recorded By Document 07/18/18 15:35 MW [id number] 07/18/18 15:54 MW Document 07/25/18 15:03 DV [id number] 07/25/18 15:21 DV 07/18/18 07/25/18 15:35 15:03 Wound Center Nurse 2 #5 R [place] -Time 15:39 15:05 -Correct Patient Yes Yes -Correct Side, Site, Position Yes Yes -Correct Procedure Yes -Procedure Performed Yes No -Type of Procedure Debridement -Clinical Debridement Subcutaneous -Post Debridement Size (cm) - Length 1.0 0 -Post Debridement Size (cm) - Width 0.1 0 -Post Debridement Size (cm) - Depth 0.1 0 -Total Square Cm 0.10 0 -Wound/Ulcer Outcome Not Healed Healed- Epithelialized -Ulcer Cleansing Rinsed/ Irrigated with Saline -Foul Odor after Cleansing No -Bioengineered Tissue No -Bleeding Controlled with Pressure -Offloading No -Treatment Response Procedure Tolerated Well #4 RIGHT ACHILLES -Time 15:39 15:05 -Correct Patient Yes Yes -Correct Side, Site, Position Yes Yes -Correct Procedure Yes Yes -Procedure Performed Yes Yes -Type of Procedure Debridement Debridement -Clinical Debridement Subcutaneous Subcutaneous -Post Debridement Size (cm) - Length 1.2 0.9 -Post Debridement Size (cm) - Width 1.0 1.0 -Post Debridement Size (cm) - Depth 0.2 0.2 -Total Square Cm 1.20 0.90 -Wound/Ulcer Outcome Not Healed Not Healed -Ulcer Cleansing Rinsed/ Rinsed/ Irrigated with Irrigated with Saline Saline -Foul Odor after Cleansing No No -Bioengineered Tissue No No -Injectable Lidocaine w/ Epi (%) 1 -Injectable Lidocaine w/ Epi (mls) 5 -Bleeding Controlled with NA Pressure -Other lidacaine 2% w/ epi -Offloading No Yes -Type of Offloading Surgical Shoe -Treatment Response Procedure Procedure Not Tolerated Well Tolerated Well #2 R Heel -Time 15:39 15:07 -Correct Patient Yes Yes -Correct Side, Site, Position Yes Yes -Correct Procedure Yes Yes -Procedure Performed Yes Yes -Type of Procedure Debridement Debridement -Clinical Debridement Subcutaneous Subcutaneous -Post Debridement Size (cm) - Length 1.4 1.6 -Post Debridement Size (cm) - Width 1.2 1.6 -Post Debridement Size (cm) - Depth 0.5 0.2 -Total Square Cm 1.68 2.56 -Wound/Ulcer Outcome Not Healed Not Healed -Ulcer Cleansing Rinsed/ Rinsed/ Irrigated with Irrigated with Saline Saline -Foul Odor after Cleansing No No -Bioengineered Tissue No No -Injectable Lidocaine w/ Epi (%) 1 -Injectable Lidocaine w/ Epi (mls) 5 -Bleeding Controlled with Pressure -Other undermining @6- lidacaine 2% w/ 1.0cm epi -Offloading No No -Type of Offloading Surgical Shoe -Treatment Response Procedure Procedure Tolerated Well Tolerated Well Pain Scale: 0-10 Numeric Is Patient Pain Free? Yes Yes Wound debrided: right lower whitney Laterality: Right No debridement was completed today - wound is healed - Additional Wound Wound debrided: right achilles Laterality: Right Type of Debridement: Excisional debridement Anesthesia Used: 4% Lidocaine Solution, 5% Lidocaine Gel, - - 2% lidocaine with epi Depth: Down to and including healthy tissue, in the subcutaneous layer Percentage of wound debrided: 100 Instrument Used: 5mm curette Tissue Removed: yellwo slough, devitalized tissue Severity: Fat Layer Exposed Amount of bleeding with debridement: Mild Bleeding Controlled with: Compression and gauze Patient tolerated procedure: Patient tolerated procedure well - Additional Wound Wound debrided: right heel Laterality: Right Type of Debridement: Excisional debridement Anesthesia Used: 4% Lidocaine Solution, 5% Lidocaine Gel Depth: Down to and including healthy tissue, in the subcutaneous layer Percentage of wound debrided: 100 Instrument Used: 5mm curette Tissue Removed: yellow slough, devitalized tissue Severity: Fat Layer Exposed Amount of bleeding with debridement: Mild Bleeding Controlled with: Compression and gauze Patient tolerated procedure: Patient tolerated procedure well Assessment/Plan Active Problems Type 2 diabetes, uncontrolled, with ulcer of heel (Chronic) right Non-healing open wound of heel (Chronic) Peripheral vascular disease (Chronic) Type II diabetes mellitus (Chronic) Assessment: 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 Diabetes mellitus - uncontrolled. Peripheral vascular disease - status post revascularization but re-occlusion. right whitney venous ulcer - healed Plan: Gibson's ulcers were evaluated and debrided today. There is not much improvement in his ulcers overall which may be due to his edema and PAD. Wound culture remained positive for MRSA even after treatment with doxycycline. He continues on ciprofloxacin which MRSA was also sensitive to. Xrays showed no osteomyelitis. Records from vascular have been reviewed and it appears that Dr. Navas recommended a SFA-ant. tib. bypass for his right leg which is scheduled for 08/07/18. Discussed offloading importance and gave him a surgical shoe to wear to offload his heel. Discuss TCC but he refuses at this time. Single layer tubigrip compression advised if he can tolerate this, avoidance of idle standing or sitting with legs hanging down. Encouraged improved control of his blood sugars. Encouraged him to seek consultation with pain management for his pain and gave him a 7 day RX (#56) for tramadol to use for pain as needed on 07/21/18. [place] checked and appropriate. Encouarged to call with increased drainage, redness or fever or chills. Will f/u in 1 week.
[2018-08-01 13:33] VITALS: BP 139/79; PULSE 75; RESP 16; TEMP 36.6; BMI 27.3
--- NOTE | 2018-08-01 17:33 | PN.PCM_ITS ---
(1) Type 2 diabetes, uncontrolled, with ulcer of heel Status: Chronic Current Visit: Yes Code(s): E11.621 - Type 2 diabetes mellitus with foot ulcer; E11.65 - Type 2 diabetes mellitus with hyperglycemia; L97.409 - Non-pressure chronic ulcer of unspecified heel and midfoot with unspecified severity Comment: right (2) Venous ulcer of right lower extremity without varicose veins Status: Resolved Current Visit: Yes Code(s): I87.2 - Venous insufficiency (chronic) (peripheral); L97.919 - Non-pressure chronic ulcer of unspecified part of right lower leg with unspecified severity (3) Non-healing open wound of heel Status: Chronic Current Visit: Yes Qualifiers: Encounter type: subsequent encounter Laterality: right Qualified Code(s): S91.301D - Unspecified open wound, right foot, subsequent encounter Code(s): S91.309A - Unspecified open wound, unspecified foot, initial encounter (4) Peripheral vascular disease Status: Chronic Current Visit: Yes Code(s): I73.9 - Peripheral vascular disease, unspecified (5) Type II diabetes mellitus Status: Chronic Current Visit: Yes Qualifiers: Diabetes mellitus correction insulin use: unspecified correction insulin use status Diabetes mellitus complication status: with skin complications Diabetes mellitus complication detail: with foot ulcer Qualified Code(s): E11.621 - Type 2 diabetes mellitus with foot ulcer; L97.509 - Non-pressure chronic ulcer of other part of unspecified foot with unspecified severity Code(s): E11.9 - Type 2 diabetes mellitus without complications Type of Wound Date of Service: 08/01/18 Chief Complaint: Nonhealing ulcers right heel History of Wound: This 68-year-old male is here for evaluation of an ulcer of his right heel and his right pat. He states that he has had an ulcer approx. 5 years ago of this same heel and was treated here and was healed after vascular interventions by Dr. Navas. He has noticed increased pain in his heel for the last few months and approx. beginning of May he noted an open wound to his right heel. He was using gauze but this started to irritate his skin and has been using silvadene and adaptic to the wound with tape for the last few weeks. He has not had any treatment with antibiotics for the wound. He is self-referred for treatment here. He does follow with Dr. 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 He has had procedures for his arterial disease in past to both of his lower extremities. From review of records it seems that Dr. Navas planned to do a right SFA-ant. tib bypass but it does not appear that this was done and patient denies having any bypass procedures other than his heart. It sounds like he is trying alternative treatments with supplements and chelation therapy. He also has diabetes and his last A1C several months ago was 7.2% but he stopped glyburide because he felt it was causing blisters of his legs. He does wear diabetic shoes. He has been undergoing chelation treatments by Dr. German in [place]. Dr. German prescribed him oxycodone-APAP 5/325 mg #60 which were filled on 05/22/18 for pain, he has six tablets left from this prescription, and he is asking for pain medication to treat pain from debridement. He reports having xrays done several months ago of his right heel due to pain which did not show any osteomyelitis or acute fractures. He denies fever, chills, erythema or heavy drainage. He reports significant pain and discomfort of his right heel and his entire right leg which no one can explain. Progress of Wound: Gibson is here to follow up for nonhealing ulcers of his right foot. He tolerated the dressings and is wearing tubigrip compression most of the time. He continues to have severe pain in his ankle/heel. He completed Ciprofloxacin but has not noticed any improvement in his pain. He developed a new venous ulcer of his right medial pat last week from edema and has another on his right second toe this week. He has been trying to elevate his foot and has been using his surgical shoe to offload as well. He has a procedure scheduled with Dr. Navas for arterial disease on 08/07/18. Denies fever or chills or increased drainage. - Physical Exam Vital Signs Temp Pulse Resp BP 98 F 75 16 139/79 H 08/01/18 13:33 08/01/18 13:33 08/01/18 13:33 08/01/18 13:33 Wound Measurements and Assessment WC - Nurse 1 - General Ulcer Measurement Start: 07/18/18 14:55 Freq: Status: Active Protocol: Activity Type Activity Date Activity User E-Sign Co-Sign Detail Recorded Client Recorded Date Recorded By Document 08/01/18 13:33 [facility] [id number] 08/01/18 13:45 [facility] 08/01/18 13:33 Wound Center Nurse 1 [Ulcer Assessment] #4 RIGHT ACHILLES -Combined with other wound No -Current Size (cm) - Length 0.8 -Current Size (cm) - Width 0.4 -Current Size (cm) - Depth 0.2 -Total Square Cm 0.32 -Photo Taken No -Epithelialization None Present -Tunneling No -Undermining/Tunneling No -Circular Undermining No -Exudate Amt Small -Exudate Type Serosanguineous -Wound Margin Flat & Intact -Granulation Amt Medium (34-66%) -Granulation Quality Red -Slough/Fibrin Yes -Necrosis Amt Small (1-33%) -Necrotic Tissue Type Adherent Slough -Texture (Shahana-wound Skin Appearance) Scarring -Moisture (Shahana-wound Skin Appearance Dry/Scaly ) -Color (Shahana-wound Skin Appearance) Erythema -Temperature (Shahana-wound Skin No Abnormality Appearance) (Pt Warm) -Tenderness on Palpation (Shahana-wound Yes Skin Appearance) -Ulcer Cleansing Rinsed/ Irrigated with Saline -Foul Odor after Cleansing No -Anesthetic Used 5% Lidocaine Gel #2 R Heel -Combined with other wound No -Current Size (cm) - Length 1.5 -Current Size (cm) - Width 1.5 -Current Size (cm) - Depth 0.3 -Total Square Cm 2.25 -Photo Taken No -Epithelialization None Present -Tunneling No -Undermining/Tunneling Yes -Undermining/Tunneling Starts (O' 12 clock) -Undermining/Tunneling Ends (O'clock) 12 -Circular Undermining Yes -Exudate Amt Small -Exudate Type Serosanguineous -Wound Margin Flat & Intact -Granulation Amt Small (1-33%) -Granulation Quality Pale Red -Slough/Fibrin Yes -Necrosis Amt Large (67-100%) -Necrotic Tissue Type Adherent Slough -Texture (Shahana-wound Skin Appearance) Assessed Scarring -Moisture (Shahana-wound Skin Appearance Dry/Scaly ) -Color (Shahana-wound Skin Appearance) Erythema -Temperature (Shahana-wound Skin No Abnormality Appearance) (Pt Warm) -Tenderness on Palpation (Shahana-wound Yes Skin Appearance) -Ulcer Cleansing Rinsed/ Irrigated with Saline -Foul Odor after Cleansing No -Anesthetic Used 5% Lidocaine Gel [Edema Assessment] -Lower Limb Edema Present Yes -Right Calf (cm) 32.7 -Right Ankle (cm) 22.5 [facility] - Nurse 2 - General Ulcer CM Notes Start: 07/18/18 14:55 Freq: Status: Active Protocol: Activity Type Activity Date Activity User E-Sign Co-Sign Detail Recorded Client Recorded Date Recorded By Document 08/01/18 15:28 DV [id number] 08/01/18 15:41 DV 08/01/18 15:28 Wound Center Nurse 2 [Procedure/Treatment] #4 RIGHT ACHILLES -Time 15:29 -Correct Patient Yes -Correct Side, Site, Position Yes -Correct Procedure Yes -Procedure Performed Yes -Type of Procedure Debridement -Clinical Debridement Subcutaneous -Post Debridement Size (cm) - Length 0.8 -Post Debridement Size (cm) - Width 0.8 -Post Debridement Size (cm) - Depth 0.2 -Total Square Cm 0.64 -Wound/Ulcer Outcome Not Healed -Ulcer Cleansing Rinsed/ Irrigated with Saline -Foul Odor after Cleansing No -Bioengineered Tissue No -Bleeding Controlled with Pressure -Offloading No -Treatment Response Procedure Tolerated Well #2 R Heel -Time 15:31 -Correct Patient Yes -Correct Side, Site, Position Yes -Correct Procedure Yes -Procedure Performed Yes -Type of Procedure Debridement -Clinical Debridement Subcutaneous -Post Debridement Size (cm) - Length 1.4 -Post Debridement Size (cm) - Width 1.4 -Post Debridement Size (cm) - Depth 0.2 -Total Square Cm 1.96 -Wound/Ulcer Outcome Not Healed -Ulcer Cleansing Rinsed/ Irrigated with Saline -Foul Odor after Cleansing No -Bioengineered Tissue No -Bleeding Controlled with Pressure -Offloading No -Treatment Response Procedure Tolerated Well [See Physician Procedure note for Specifics] Pain Scale: 0-10 Numeric [Pain] -Is Patient Pain Free? Yes Debridement Note Post-Debridement Measurements/Treatment [facility] - Nurse 2 - General Ulcer CM Notes Start: 07/18/18 14:55 Freq: Status: Active Protocol: Activity Type Activity Date Activity User E-Sign Co-Sign Detail Recorded Client Recorded Date Recorded By Document 07/18/18 15:35 MW [id number] 02/01/19 15:54 MW Document 07/25/18 15:03 DV [id number] 07/25/18 15:21 DV Document 08/01/18 15:28 DV [id number] 08/01/18 15:41 DV 07/18/18 07/25/18 08/01/18 15:35 15:03 15:28 Wound Center Nurse 2 #5 R Lower Pat -Time 15:39 15:05 -Correct Patient Yes Yes -Correct Side, Site, Position Yes Yes -Correct Procedure Yes -Procedure Performed Yes No -Type of Procedure Debridement -Clinical Debridement Subcutaneous -Post Debridement Size (cm) - Length 1.0 0 -Post Debridement Size (cm) - Width 0.1 0 -Post Debridement Size (cm) - Depth 0.1 0 -Total Square Cm 0.10 0 -Wound/Ulcer Outcome Not Healed Healed- Epithelialized -Ulcer Cleansing Rinsed/ Irrigated with Saline -Foul Odor after Cleansing No -Bioengineered Tissue No -Bleeding Controlled with Pressure -Offloading No -Treatment Response Procedure Tolerated Well #4 RIGHT ACHILLES -Time 15:39 15:05 15:29 -Correct Patient Yes Yes Yes -Correct Side, Site, Position Yes Yes Yes -Correct Procedure Yes Yes Yes -Procedure Performed Yes Yes Yes -Type of Procedure Debridement Debridement Debridement -Clinical Debridement Subcutaneous Subcutaneous Subcutaneous -Post Debridement Size (cm) - Length 1.2 0.9 0.8 -Post Debridement Size (cm) - Width 1.0 1.0 0.8 -Post Debridement Size (cm) - Depth 0.2 0.2 0.2 -Total Square Cm 1.20 0.90 0.64 -Wound/Ulcer Outcome Not Healed Not Healed Not Healed -Ulcer Cleansing Rinsed/ Rinsed/ Rinsed/ Irrigated with Irrigated with Irrigated with Saline Saline Saline -Foul Odor after Cleansing No No No -Bioengineered Tissue No No No -Injectable Lidocaine w/ Epi (%) 1 -Injectable Lidocaine w/ Epi (mls) 5 -Bleeding Controlled with NA Pressure Pressure -Other lidacaine 2% w/ epi -Offloading No Yes No -Type of Offloading Surgical Shoe -Treatment Response Procedure Procedure Not Procedure Tolerated Well Tolerated Well Tolerated Well #2 R Heel -Time 15:39 15:07 15:31 -Correct Patient Yes Yes Yes -Correct Side, Site, Position Yes Yes Yes -Correct Procedure Yes Yes Yes -Procedure Performed Yes Yes Yes -Type of Procedure Debridement Debridement Debridement -Clinical Debridement Subcutaneous Subcutaneous Subcutaneous -Post Debridement Size (cm) - Length 1.4 1.6 1.4 -Post Debridement Size (cm) - Width 1.2 1.6 1.4 -Post Debridement Size (cm) - Depth 0.5 0.2 0.2 -Total Square Cm 1.68 2.56 1.96 -Wound/Ulcer Outcome Not Healed Not Healed Not Healed -Ulcer Cleansing Rinsed/ Rinsed/ Rinsed/ Irrigated with Irrigated with Irrigated with Saline Saline Saline -Foul Odor after Cleansing No No No -Bioengineered Tissue No No No -Injectable Lidocaine w/ Epi (%) 1 -Injectable Lidocaine w/ Epi (mls) 5 -Bleeding Controlled with Pressure Pressure -Other undermining @6- lidacaine 2% w/ 1.0cm epi -Offloading No No No -Type of Offloading Surgical Shoe -Treatment Response Procedure Procedure Procedure Tolerated Well Tolerated Well Tolerated Well Pain Scale: 0-10 Numeric Is Patient Pain Free? 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 Diabetes mellitus - uncontrolled. Peripheral vascular disease - status post revascularization but re-occlusion. right pat venous ulcer - healed Plan: Gibson's ulcers were evaluated and debrided today. There is not much improvement in his ulcers overall which may be due to his edema and PAD. Wound culture remained positive for MRSA even after treatment with doxycycline. He continues on ciprofloxacin which MRSA was also sensitive to. Xrays showed no osteomyelitis. Records from vascular have been reviewed and it appears that Dr. Navas recommended a SFA-ant. tib. bypass for his right leg which is scheduled for 08/07/18. Discussed offloading importance and gave him a surgical shoe to wear to offload his heel. Discuss TCC but he refuses at this time. Single layer tubigrip compression advised if he can tolerate this, avoidance of idle standing or sitting with legs hanging down. Encouraged improved control of his blood sugars. Encouraged him to seek consultation with pain management for his pain and gave him a 7 day RX (#56) for tramadol to use for pain as needed on 07/21/18. [place]ARRS checked and appropriate. Encouarged to call with increased drainage, redness or fever or chills. Will f/u in 1 week.
== END 2018-08-14 23:59 ==
LOC: WC 13:45
PROVIDERS: Family Provider Family Medicine; PCP Family Medicine; Visit Provider Family Medicine
DX: E11.621 Type 2 diabetes mellitus with foot ulcer (principal); E11.622 Type 2 diabetes mellitus with other skin ulcer; E11.65 Type 2 diabetes mellitus with hyperglycemia; E11.51 Type 2 diabetes mellitus with diabetic peripheral angiopathy without gangrene; L97.412 Non-pressure chronic ulcer of right heel and midfoot with fat layer exposed; L97.312 Non-pressure chronic ulcer of right ankle with fat layer exposed; L97.812 Non-pressure chronic ulcer of other part of right lower leg with fat layer exposed; E11.40 Type 2 diabetes mellitus with diabetic neuropathy, unspecified
CPT/HCPCS: 11042; 87070; 87075; 87077; 87186; 87205

== ENCOUNTER 2018-09-08 17:59 | Emergency (ER) | payer MEDICARE, OTHER, SELFPAY ==
[2018-09-05 14:26] VITALS: BMI 27.3
[2018-09-08 18:00] VITALS: BP 131/72; PULSE 75; RESP 16; TEMP 36.4; O2SAT 97; BMI 24.9
[2018-09-08 20:13] VITALS: BP 133/64; PULSE 83; RESP 14; TEMP 36.9; O2SAT 94
[2018-09-08] MEDS: 0.9% Normal Saline 1,000 ML 150 ML IV (20:21)
--- NOTE | 2018-09-08 20:25 | RAD_ITS ---
STUDY: X-RAY - RIGHT TIBIA AND FIBULA REASON FOR EXAM: Male, 68 years old. Right leg infection TECHNIQUE: 4 view(s) of the tibia and fibula were obtained. COMPARISON: None. FINDINGS: No acute osseous findings. Postsurgical changes. Subcutaneous edema and swelling. RAD/Tibia & Fibula 2 Views IMPRESSION: As above Electronically Signed: Dejuan Dalal DO at 21:00 EDT Tel , Service support ,
[2018-09-08 20:26] LABS: Absolute Lymphocyte Count 1.32 X10^3/ul (0.83-4.51); Absolute Neutrophil Count 2.7 X10^3/uL (2.0-7.7); Basophil# 0.04 X10^3/uL; Basophil% 0.8 % (0-1); Eosinophil# 0.22 X10^3/uL; Eosinophils% 4.6 % (0-5); Hematocrit 35.5 % (40-54); Hemoglobin 11.8 g/dl (13.0-16.5); Lymphocyte # 1.32 X10^3/ul (4.0); Lymphocyte % 27.5 % (19-41); Mean Corp Hgb Conc 33.2 g/gl (32-36); Mean Corpuscular Hgb 32.4 pg (27.0-32.0); Mean Corpuscular Volume 97.5 fL (80-94); Mean Platelet Vol. 9.4 fl (6.2-12.0); Monocyte# 0.53 X10^3/uL; Neutrophil # 2.68 X10^3/uL (2.7-7.7); Neutrophil % 55.9 % (47-70); Platelet Count 185 K/mm3 (150-450); RBC Distribution Width CV 15.7 % (11.6-14.6); RBC Distribution Width SD 56.2 fl (35.1-43.9); Red Blood Count 3.64 M/mm3 (4.6-6.2); White Blood Count 4.8 K/mm3 (4.4-11.0)
[2018-09-08 20:28] LABS: POSITIVE COUNT NO; POSITIVE DIFFERENTIAL NO; POSITIVE MORPHOLOGY NO
[2018-09-08 20:41] LABS: Anion Gap 2 (5-15); BUN 22 mg/dL (7-18); BUN/Creat Ratio 21.4 RATIO (10-20); Calcium,Total 8.5 mg/dL (8.5-10.1); Chloride 109 mmol/L (98-107); Creatinine, Serum 1.03 mg/dL (0.70-1.30); EST Glomerular Filtration Rate 76 mL/min (>60); Est Glom Filt Rate - Afr Amer 92 mL/min (>60); Estimated Creatinine Clearance 68.64 ml/min; Glucose 132 mg/dL (74-106); Sodium Level 142 mmol/L (136-145)
[2018-09-08] MEDS: traMADol 50 MG Tablet PO (20:59)
[2018-09-08 21:02] VITALS: TEMP 37
--- NOTE | 2018-09-08 21:54 | ED.VISSUMM ---
- ER Visit Summary Date of Service: 09/08/18 Chief Complaint: [] Right foot wound History of Present Illness: The patient is a 68 M with a history of chronic right heel wound and is followed in the wound center. He had cultures done a week ago Saturday that returned last week. This revealed evidence of MRSA. He is currently on Augmentin and doxycycline. Patient initially advised he had redness on his leg today with blisters. Later in the stay they actually tell me the redness in the leg has been there for quite some time. The blisters were fairly more recent. Today he had some chills they wanted to have him checked. He denies fever. Physical Examination: Vital signs unremarkable. Temperature 97.5. Patient is lying in bed no acute distress. Heart is regular rate and rhythm. Lung sounds are clear. Abdomen is soft nontender. 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 He has erythema, mild warmth, and some fluid-filled blisters to the right lower leg. These blisters more look like fluid from tension. Test Results: CBC is unremarkable. Chemistry studies normal. Right tib-fib x-ray shows subcutaneous edema and swelling. No acute osseous findings. Emergency Department Course and Treatment: Patient received a dose of his tramadol that he normally takes for pain. Patient wishes to go home and not stay in the hospital. He will receive a single dose of vancomycin now. The area of erythema on the right lower leg was outlined with surgical marker. Wound dressing will be placed. They will continue doxycycline and Augmentin. I did review the wound culture and his infection is sensitive to doxycycline. Patient will return if erythema spreads beyond the outlined eliana or if he develops fever. He is to follow-up in the wound center this week as planned. Treatment Plan: [] Disposition: Discharge Impression: Chronic right lower extremity wound This note was generated with [employer] dictation software. It may contain incorrect words, spelling, and punctuation that were not noted in review of the chart prior to signing ED Disposition - Plan for ED Patient: Referrals: Manolo Pena [Primary Care Provider] -
--- NOTE | 2018-09-08 21:57 | ED.DCSUM_ITS ---
- ER Visit Summary Date of Service: 09/08/18 Chief Complaint: [] Right foot wound History of Present Illness: The patient is a 68 M with a history of chronic right heel wound and is followed in the wound center. He had cultures done a week ago Saturday that returned last week. This revealed evidence of MRSA. He is currently on Augmentin and doxycycline. Patient initially advised he had redness on his leg today with blisters. Later in the stay they actually tell me the redness in the leg has been there for quite some time. The blisters were fairly more recent. Today he had some chills they wanted to have him checked. He denies fever. Physical Examination: Vital signs unremarkable. Temperature 97.5. Patient is lying in bed no acute distress. Heart is regular rate and rhythm. Lung sounds are clear. Abdomen is soft nontender. 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 He has erythema, mild warmth, and some fluid-filled blisters to the right lower leg. These blisters more look like fluid from tension. Test Results: CBC is unremarkable. Chemistry studies normal. Right tib-fib x- ray shows subcutaneous edema and swelling. No acute osseous findings. Emergency Department Course and Treatment: Patient received a dose of his tramadol that he normally takes for pain. Patient wishes to go home and not stay in the hospital. He will receive a single dose of vancomycin now. The area of erythema on the right lower leg was outlined with surgical marker. Wound dressing will be placed. They will continue doxycycline and Augmentin. I did review the wound culture and his infection is sensitive to doxycycline. Patient will return if erythema spreads beyond the outlined eliana or if he develops fever. He is to follow-up in the wound center this week as planned. Treatment Plan: [] Disposition: Discharge Impression: Chronic right lower extremity wound This note was generated with [employer] dictation software. It may contain incorrect words, spelling, and punctuation that were not noted in review of the chart prior to signing ED Disposition - Plan for ED Patient: Referrals: Manolo Pena [Primary Care Provider] -
--- NOTE | 2018-09-08 21:57 | ED.DEP ---
ED Disposition - Plan for ED Patient: Disposition: Home or Assisted Living Instructions: ED Infec Skin Cellulitis Referrals: Manolo Pena [Primary Care Provider] - Additional Instructions: Follow-up in the wound center as scheduled. Return to ED for redness spreading beyond the outlined area or fever as discussed.
[2018-09-08 22:46] VITALS: PULSE 87; RESP 15; TEMP 36.8; O2SAT 97
--- NOTE | 2018-09-08 23:17 | ED.RN ---
PT CLEARED FOR D/C AFTER FINISHING ANTIBIOTICS. SEPSIS SCREEN COMPLETED.
[2018-09-09 00:27] VITALS: BP 149/88; PULSE 87; RESP 13; O2SAT 97
[2018-09-09 00:56] VITALS: BP 137/87; PULSE 90; RESP 17; O2SAT 98
== END 2018-09-09 00:57 | disposition home or self-care (01) ==
PROVIDERS: Emergency Provider Emergency Medicine; Family Provider Family Medicine; PCP Family Medicine
DX: E11.621 Type 2 diabetes mellitus with foot ulcer (principal); L97.419 Non-pressure chronic ulcer of right heel and midfoot with unspecified severity; B95.62 Methicillin resistant Staphylococcus aureus infection as the cause of diseases classified elsewhere; I25.10 Atherosclerotic heart disease of native coronary artery without angina pectoris; I10 Essential (primary) hypertension; Z79.82 Long term (current) use of aspirin; Z79.899 Other long term (current) drug therapy
CPT/HCPCS: 36415; 73590; 80048; 85025; 87040; 96365; 96366; 99283; J7030; A4216

== ENCOUNTER 2018-09-12 14:00 | Outpatient (RCR) | payer MEDICARE, OTHER, SELFPAY ==
[2018-08-15 01:15] VITALS: BP 139/79; PULSE 75; RESP 16; TEMP 36.6
[2018-08-15 13:52] VITALS: BP 139/93; PULSE 77; RESP 18; TEMP 36.4; BMI 27.3
--- NOTE | 2018-08-15 18:31 | PN.PCM_ITS ---
(1) Type 2 diabetes, uncontrolled, with ulcer of heel Status: Chronic Current Visit: Yes Code(s): E11.621 - Type 2 diabetes mellitus with foot ulcer; E11.65 - Type 2 diabetes mellitus with hyperglycemia; L97.409 - Non-pressure chronic ulcer of unspecified heel and midfoot with unspecified severity Comment: right plantar heel and right achilles (2) Peripheral vascular disease Status: Chronic Current Visit: Yes Code(s): I73.9 - Peripheral vascular disease, unspecified (3) Type II diabetes mellitus Status: Chronic Current Visit: Yes Qualifiers: Diabetes mellitus detention insulin use: unspecified detention insulin use status Diabetes mellitus complication status: with skin complications Diabetes mellitus complication detail: with foot ulcer Qualified Code(s): E11.621 - Type 2 diabetes mellitus with foot ulcer; L97.509 - Non-pressure chronic ulcer of other part of unspecified foot with unspecified severity Code(s): E11.9 - Type 2 diabetes mellitus without complications (4) Varicose veins of right lower extremity with ulcer Status: Chronic Current Visit: Yes Qualifiers: Lower extremity ulceration location: other part of foot Non-pressure ulcer stage: with fat layer exposed Qualified Code(s): I83.015 - Varicose veins of right lower extremity with ulcer other part of foot; L97.512 - Non-pressure chronic ulcer of other part of right foot with fat layer exposed Code(s): I83.019 - Varicose veins of right lower extremity with ulcer of unspecified site; L97.919 - Non-pressure chronic ulcer of unspecified part of right lower leg with unspecified severity Type of Wound Date of Service: 08/15/18 Chief Complaint: Nonhealing ulcers right heel History of Wound: This 68-year-old male is here for evaluation of an ulcer of his right heel and his right whitney. He states that he has had an ulcer approx. 5 years ago of this same heel and was treated here and was healed after vascular interventions by Dr. Navas. He has noticed increased pain in his heel for the last few months and approx. beginning of May he noted an open wound to his right heel. He was using gauze but this started to irritate his skin and has been using silvadene and adaptic to the wound with tape for the last few weeks. He has not had any treatment with antibiotics for the wound. He is self-referred for treatment here. He does follow with Dr. 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 He has had procedures for his arterial disease in past to both of his lower extremities. From review of records it seems that Dr. Navas planned to do a right SFA-ant. tib bypass but it does not appear that this was done and patient denies having any bypass procedures other than his heart. It sounds like he is trying alternative treatments with supplements and chelation therapy. He also has diabetes and his last A1C several months ago was 7.2% but he stopped glyburide because he felt it was causing blisters of his legs. He does wear diabetic shoes. He has been undergoing chelation treatments by Dr. German in [place]. Dr. German prescribed him oxycodone-APAP 5/325 mg #60 which were filled on 05/22/18 for pain, he has six tablets left from this prescription, and he is asking for pain medication to treat pain from debridement. He reports having xrays done several months ago of his right heel due to pain which did not show any osteomyelitis or acute fractures. He denies fever, chills, erythema or heavy drainage. He reports significant pain and discomfort of his right heel and his entire right leg which no one can explain. Progress of Wound: Gibson is here to follow up for nonhealing ulcers of his right foot. He tolerated the dressings and is wearing tubigrip compression most of the time. He underwent artificial bypass graft of his ant. tibial to femoral artery on 08/07/18. He had an IL postoperatively and is being treated medically. He continues to have severe pain in his ankle/heel. He developed a new venous ulcer on his right second toe this week. He has been trying to elevate his foot and has been using his surgical shoe to offload as well. Denies fever or chills or increased drainage. - Physical Exam Vital Signs Temp Pulse Resp BP 97.6 F L 77 18 139/93 H 08/15/18 13:52 08/15/18 13:52 08/15/18 13:52 08/15/18 13:52 General: Alert, Oriented x3, Cooperative, No apparent distress HEENT: Atraumatic, Normocephalic Oral: Moist Mucosa Extremities: Diminished Peripheral Pulses, Edema Skin: Ulcer/ Wound Wound Measurements and Assessment WC - Nurse 1 - General Ulcer Measurement Start: 08/15/18 13:52 Freq: Status: Active Protocol: Activity Type Activity Date Activity User E-Sign Co-Sign Detail Recorded Client Recorded Date Recorded By Document 08/15/18 13:52 VA [id number] 08/15/18 14:07 VA 08/15/18 13:52 Wound Center Nurse 1 [Ulcer Assessment] #6 Right 2nd Toe -Combined with other wound No -Current Size (cm) - Length 0.8 -Current Size (cm) - Width 0.6 -Current Size (cm) - Depth 0.1 -Total Square Cm 0.48 -Date of Last Picture (Recall this 08/15/18 field) -Photo Taken Yes -Tunneling No -Undermining/Tunneling No -Circular Undermining No -Exudate Amt Small -Exudate Type Serosanguineous -Wound Margin Flat & Intact -Granulation Amt Large (67-100%) -Granulation Quality Pale [place] Red -Slough/Fibrin No -Texture (Shahana-wound Skin Appearance) Assessed Scarring -Moisture (Shahana-wound Skin Appearance Assessed ) Dry/Scaly -Color (Shahana-wound Skin Appearance) Assessed -Temperature (Shahana-wound Skin No Abnormality Appearance) (Pt Warm) -Tenderness on Palpation (Shahana-wound No Skin Appearance) -Ulcer Cleansing Rinsed/ Irrigated with Saline -Foul Odor after Cleansing No -Anesthetic Used 5% Lidocaine Gel #5 R [place] -Current Size (cm) - Length 0.1 -Current Size (cm) - Width 0.1 -Current Size (cm) - Depth 0.1 -Total Square Cm 0.01 -Epithelialization Large 67-100% #4 RIGHT ACHILLES -Combined with other wound No -Current Size (cm) - Length 0.5 -Current Size (cm) - Width 0.6 -Current Size (cm) - Depth 0.2 -Total Square Cm 0.30 -Photo Taken No -Tunneling No -Undermining/Tunneling No -Circular Undermining No -Exudate Amt Small -Exudate Type Serosanguineous -Wound Margin Thickened & Rolled Under -Slough/Fibrin Yes -Necrosis Amt Large (67-100%) -Necrotic Tissue Type Adherent Slough -Texture (Shahana-wound Skin Appearance) Assessed -Moisture (Shahana-wound Skin Appearance Assessed ) -Color (Shahana-wound Skin Appearance) Assessed -Temperature (Shahana-wound Skin No Abnormality Appearance) (Pt Warm) -Tenderness on Palpation (Shahana-wound No Skin Appearance) -Ulcer Cleansing Rinsed/ Irrigated with Saline -Foul Odor after Cleansing No -Anesthetic Used 5% Lidocaine Gel #2 R Heel -Current Size (cm) - Length 1.3 -Current Size (cm) - Width 1.2 -Current Size (cm) - Depth 0.3 -Total Square Cm 1.56 -Tunneling Yes -Tunneling Position (O'clock) 12 -Tunneling Distance (cm) 1.1 -Exudate Amt Medium -Exudate Type Serosanguineous -Wound Margin Distinct, Outline Attached -Granulation Amt Small (1-33%) -Granulation Quality Pale [place] -Slough/Fibrin Yes -Necrosis Amt Large (67-100%) -Necrotic Tissue Type Adherent Slough -Texture (Shahana-wound Skin Appearance) Assessed Callus -Moisture (Shahana-wound Skin Appearance Assessed ) Maceration -Color (Shahana-wound Skin Appearance) Assessed -Temperature (Shahana-wound Skin No Abnormality Appearance) (Pt Warm) -Tenderness on Palpation (Shahana-wound No Skin Appearance) -Ulcer Cleansing Rinsed/ Irrigated with Saline -Foul Odor after Cleansing No -Anesthetic Used 5% Lidocaine Gel [Edema Assessment] -Right Calf (cm) 30 -Right Ankle (cm) 20.6 WC - Nurse 2 - General Ulcer CM Notes Start: 08/15/18 13:52 Freq: Status: Active Protocol: Activity Type Activity Date Activity User E-Sign Co-Sign Detail Recorded Client Recorded Date Recorded By Document 08/15/18 14:36 DV [id number] 08/15/18 15:13 DV 08/15/18 14:36 Wound Center Nurse 2 [Procedure/Treatment] #7 Right 5th Toe -Time 15:10 -Correct Patient Yes -Correct Side, Site, Position Yes -Correct Procedure Yes -Procedure Performed Yes -Type of Procedure Debridement -Clinical Debridement Subcutaneous -Post Debridement Size (cm) - Length 0.7 -Post Debridement Size (cm) - Width 0.5 -Post Debridement Size (cm) - Depth 0.1 -Total Square Cm 0.35 -Wound/Ulcer Outcome Failed Flap -Ulcer Cleansing Rinsed/ Irrigated with Saline -Foul Odor after Cleansing No -Bioengineered Tissue No -Type of Offloading Surgical Shoe -Treatment Response Procedure Tolerated Well #6 Right 2nd Toe -Time 14:41 -Correct Patient Yes -Correct Side, Site, Position Yes -Correct Procedure Yes -Procedure Performed Yes -Type of Procedure Debridement -Clinical Debridement Subcutaneous -Post Debridement Size (cm) - Length 1.5 -Post Debridement Size (cm) - Width 1.0 -Post Debridement Size (cm) - Depth 0.1 -Total Square Cm 1.50 -Wound/Ulcer Outcome Not Healed -Ulcer Cleansing Rinsed/ Irrigated with Saline -Foul Odor after Cleansing No -Bioengineered Tissue No -Bleeding Controlled with Pressure -Offloading Yes -Type of Offloading Surgical Shoe -Treatment Response Procedure Tolerated Well #4 RIGHT ACHILLES -Time 14:42 -Correct Patient Yes -Correct Side, Site, Position Yes -Correct Procedure Yes -Procedure Performed Yes -Type of Procedure Debridement -Clinical Debridement Subcutaneous -Post Debridement Size (cm) - Length 0.7 -Post Debridement Size (cm) - Width 1.0 -Post Debridement Size (cm) - Depth 0.2 -Total Square Cm 0.70 -Wound/Ulcer Outcome Not Healed -Ulcer Cleansing Rinsed/ Irrigated with Saline -Foul Odor after Cleansing No -Bioengineered Tissue No -Bleeding Controlled with Pressure -Offloading Yes -Type of Offloading Surgical Shoe -Treatment Response Procedure Tolerated Well #2 R Heel -Time 14:43 -Correct Patient Yes -Correct Side, Site, Position Yes -Correct Procedure Yes -Procedure Performed Yes -Type of Procedure Debridement -Clinical Debridement Subcutaneous -Post Debridement Size (cm) - Length 1.7 -Post Debridement Size (cm) - Width 1.5 -Post Debridement Size (cm) - Depth 0.3 -Total Square Cm 2.55 -Wound/Ulcer Outcome Not Healed -Ulcer Cleansing Rinsed/ Irrigated with Saline -Foul Odor after Cleansing No -Bioengineered Tissue No -Bleeding Controlled with Pressure -Offloading Yes -Type of Offloading Surgical Shoe -Treatment Response Procedure Tolerated Well [See Physician Procedure note for Specifics] Pain Scale: 0-10 Numeric [Pain] -Is Patient Pain Free? Yes Psych/Mental Status: Normal Affect, Appropriate Debridement Note Post-Debridement Measurements/Treatment WC - Nurse 2 - General Ulcer CM Notes Start: 08/15/18 13:52 Freq: Status: Active Protocol: Activity Type Activity Date Activity User E-Sign Co-Sign Detail Recorded Client Recorded Date Recorded By Document 08/15/18 14:36 DV [id number] 08/15/18 15:13 DV 08/15/18 14:36 Wound Center Nurse 2 #7 Right 5th Toe -Time 15:10 -Correct Patient Yes -Correct Side, Site, Position Yes -Correct Procedure Yes -Procedure Performed Yes -Type of Procedure Debridement -Clinical Debridement Subcutaneous -Post Debridement Size (cm) - Length 0.7 -Post Debridement Size (cm) - Width 0.5 -Post Debridement Size (cm) - Depth 0.1 -Total Square Cm 0.35 -Wound/Ulcer Outcome Failed Flap -Ulcer Cleansing Rinsed/ Irrigated with Saline -Foul Odor after Cleansing No -Bioengineered Tissue No -Type of Offloading Surgical Shoe -Treatment Response Procedure Tolerated Well #6 Right 2nd Toe -Time 14:41 -Correct Patient Yes -Correct Side, Site, Position Yes -Correct Procedure Yes -Procedure Performed Yes -Type of Procedure Debridement -Clinical Debridement Subcutaneous -Post Debridement Size (cm) - Length 1.5 -Post Debridement Size (cm) - Width 1.0 -Post Debridement Size (cm) - Depth 0.1 -Total Square Cm 1.50 -Wound/Ulcer Outcome Not Healed -Ulcer Cleansing Rinsed/ Irrigated with Saline -Foul Odor after Cleansing No -Bioengineered Tissue No -Bleeding Controlled with Pressure -Offloading Yes -Type of Offloading Surgical Shoe -Treatment Response Procedure Tolerated Well #4 RIGHT ACHILLES -Time 14:42 -Correct Patient Yes -Correct Side, Site, Position Yes -Correct Procedure Yes -Procedure Performed Yes -Type of Procedure Debridement -Clinical Debridement Subcutaneous -Post Debridement Size (cm) - Length 0.7 -Post Debridement Size (cm) - Width 1.0 -Post Debridement Size (cm) - Depth 0.2 -Total Square Cm 0.70 -Wound/Ulcer Outcome Not Healed -Ulcer Cleansing Rinsed/ Irrigated with Saline -Foul Odor after Cleansing No -Bioengineered Tissue No -Bleeding Controlled with Pressure -Offloading Yes -Type of Offloading Surgical Shoe -Treatment Response Procedure Tolerated Well #2 R Heel -Time 14:43 -Correct Patient Yes -Correct Side, Site, Position Yes -Correct Procedure Yes -Procedure Performed Yes -Type of Procedure Debridement -Clinical Debridement Subcutaneous -Post Debridement Size (cm) - Length 1.7 -Post Debridement Size (cm) - Width 1.5 -Post Debridement Size (cm) - Depth 0.3 -Total Square Cm 2.55 -Wound/Ulcer Outcome Not Healed -Ulcer Cleansing Rinsed/ Irrigated with Saline -Foul Odor after Cleansing No -Bioengineered Tissue No -Bleeding Controlled with Pressure -Offloading Yes -Type of Offloading Surgical Shoe -Treatment Response Procedure Tolerated Well Pain Scale: 0-10 Numeric Is Patient Pain Free? Yes Wound debrided: right 5th toe Laterality: Right Type of Debridement: Excisional debridement Anesthesia Used: 4% Lidocaine Solution Depth: Down to and including healthy tissue, in the subcutaneous layer Percentage of wound debrided: 100 Instrument Used: 5mm curette, #10 blade, Forceps Tissue Removed: yellow slough, devitalized tissue Severity: Fat Layer Exposed Amount of bleeding with debridement: Mild Bleeding Controlled with: Compression and gauze Patient tolerated procedure well - Additional Wound Wound debrided: right second toe Laterality: Right Type of Debridement: Excisional debridement Anesthesia Used: 4% Lidocaine Solution, 5% Lidocaine Gel Depth: Down to and including healthy tissue, in the subcutaneous layer Percentage of wound debrided: 100 Instrument Used: 5mm curette, #10 blade, Forceps Tissue Removed: yellow slough, devitalized tissue Severity: Fat Layer Exposed Amount of bleeding with debridement: Mild Bleeding Controlled with: Compression and gauze Patient tolerated procedure: Patient tolerated procedure well - Additional Wound Wound debrided: right achilles Laterality: Right Wound Grade/Stage: Valdez grade 2 Type of Debridement: Excisional debridement Anesthesia Used: 4% Lidocaine Solution, 5% Lidocaine Gel, - - 1 % lidocaine with epi Depth: Down to and including healthy tissue, in the subcutaneous layer Percentage of wound debrided: 100 Instrument Used: #10 blade, Forceps Tissue Removed: yellow slough, devitalized tissue Severity: Fat Layer Exposed Amount of bleeding with debridement: Mild Bleeding Controlled with: Compression and gauze Patient tolerated procedure: Patient tolerated procedure well - Additional Wound Wound debrided: right heel Laterality: Right Wound Grade/Stage: Valdez grade 2 Type of Debridement: Excisional debridement Anesthesia Used: 4% Lidocaine Solution, 5% Lidocaine Gel Depth: Down to and including healthy tissue, in the subcutaneous layer Percentage of wound debrided: 100 Instrument Used: #10 blade, Forceps Tissue Removed: yellow slough, devitalized tissue Severity: Fat Layer Exposed Amount of bleeding with debridement: Mild Bleeding Controlled with: Compression and gauze Patient tolerated procedure: Patient tolerated procedure well Assessment/Plan Active Problems Type 2 diabetes, uncontrolled, with ulcer of heel (Chronic) right plantar heel and right achilles Varicose veins of right lower extremity with ulcer (Chronic) Peripheral vascular disease (Chronic) Type II diabetes mellitus (Chronic) Assessment: 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 Diabetes mellitus - uncontrolled. Peripheral vascular disease - status post revascularization 08/07/18. right whitney venous ulcer - healed Plan: Gibson's ulcers were evaluated and debrided today. There is not much improvement in his ulcers overall which may be due to his edema and PAD. He has a slight odor to his wounds. Will start him on ciprofloxacin and flagyl. Xrays showed no osteomyelitis. Will treat his ulcers with [place]. Dr. Navas performed a SFA-ant. tib. bypass on his right leg on 08/07/18. Discussed offloading importance and gave him a surgical shoe to wear to offload his heel. Discuss TCC but he refuses at this time. Single layer tubigrip compression advised if he can tolerate this, avoidance of idle standing or sitting with legs hanging down. Encouraged improved control of his blood sugars. Encouraged him to seek consultation with pain management for his pain and gave him a 7 day RX (#56) for tramadol to use for pain as needed on 08/15/18. [place]ARRS checked and appropriate. Encouarged to call with increased drainage, redness or fever or chills. Will f/u in 1 week.
[2018-08-22 13:59] VITALS: BP 144/74; PULSE 67; RESP 18; TEMP 36.1; BMI 27.3
--- NOTE | 2018-08-22 17:39 | PN.PCM_ITS ---
(1) Type 2 diabetes, uncontrolled, with ulcer of heel Status: Chronic Current Visit: Yes Code(s): E11.621 - Type 2 diabetes mellitus with foot ulcer; E11.65 - Type 2 diabetes mellitus with hyperglycemia; L97.409 - Non-pressure chronic ulcer of unspecified heel and midfoot with unspecified severity Comment: right plantar heel and right achilles (2) Peripheral vascular disease Status: Chronic Current Visit: Yes Code(s): I73.9 - Peripheral vascular disease, unspecified (3) Type II diabetes mellitus Status: Chronic Current Visit: Yes Qualifiers: Diabetes mellitus usp insulin use: unspecified usp insulin use status Diabetes mellitus complication status: with skin complications Diabetes mellitus complication detail: with foot ulcer Qualified Code(s): E11.621 - Type 2 diabetes mellitus with foot ulcer; L97.509 - Non-pressure chronic ulcer of other part of unspecified foot with unspecified severity Code(s): E11.9 - Type 2 diabetes mellitus without complications (4) Varicose veins of right lower extremity with ulcer Status: Chronic Current Visit: Yes Qualifiers: Lower extremity ulceration location: other part of foot Non-pressure ulcer stage: with fat layer exposed Qualified Code(s): I83.015 - Varicose veins of right lower extremity with ulcer other part of foot; L97.512 - Non-pressure chronic ulcer of other part of right foot with fat layer exposed Code(s): I83.019 - Varicose veins of right lower extremity with ulcer of unspecified site; L97.919 - Non-pressure chronic ulcer of unspecified part of right lower leg with unspecified severity (5) Stage II pressure ulcer of sacral region Status: Chronic Current Visit: Yes Code(s): L89.152 - Pressure ulcer of sacral region, stage 2 (6) Diabetes with ulcer of toe Status: Chronic Current Visit: Yes Qualifiers: Diabetes mellitus type: type 2 Laterality: right Non-pressure ulcer stage: with fat layer exposed Qualified Code(s): E11.621 - Type 2 diabetes mellitus with foot ulcer; L97.512 - Non-pressure chronic ulcer of other part of right foot with fat layer exposed Code(s): E11.621 - Type 2 diabetes mellitus with foot ulcer; L97.509 - Non- pressure chronic ulcer of other part of unspecified foot with unspecified severity Type of Wound Date of Service: 08/22/18 Chief Complaint: Nonhealing ulcers right heel History of Wound: This 68-year-old male is here for evaluation of an ulcer of his right heel and his right pat. He states that he has had an ulcer approx. 5 years ago of this same heel and was treated here and was healed after vascular interventions by Dr. Navas. He has noticed increased pain in his heel for the last few months and approx. beginning of May he noted an open wound to his right heel. He was using gauze but this started to irritate his skin and has been using silvadene and adaptic to the wound with tape for the last few weeks. He has not had any treatment with antibiotics for the wound. He is self-referred for treatment here. He does follow with Dr. 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 He has had procedures for his arterial disease in past to both of his lower extremities. From review of records it seems that Dr. Navas planned to do a right SFA-ant. tib bypass but it does not appear that this was done and patient denies having any bypass procedures other than his heart. It sounds like he is trying alternative treatments with supplements and chelation therapy. He also has diabetes and his last A1C several months ago was 7.2% but he stopped glyburide because he felt it was causing blisters of his legs. He does wear diabetic shoes. He has been undergoing chelation treatments by Dr. German in [place]. Dr. German prescribed him oxycodone-APAP 5/325 mg #60 which were filled on 05/22/18 for pain, he has six tablets left from this prescription, and he is asking for pain medication to treat pain from debridement. He reports having xrays done several months ago of his right heel due to pain which did not show any osteomyelitis or acute fractures. He denies fever, chills, erythema or heavy drainage. He reports significant pain and discomfort of his right heel and his entire right leg which no one can explain. Progress of Wound: Gibson is here to follow up for nonhealing ulcers of his right foot. He tolerated the dressings and is wearing tubigrip compression most of the time. He underwent artificial bypass graft of his ant. tibial to femoral artery on 08/07/18. He had an WA postoperatively and is being treated medically. He continues to have severe pain in his ankle/heel. He developed a pressure ulcer of his sacral area this week. He has a venous ulcer on his right second toe. He has been trying to elevate his foot and has been using his surgical shoe to offload as well. He also c/o thrush in his mouth. Denies fever or chills or increased drainage. - Physical Exam Vital Signs Temp Pulse Resp BP 96.9 F L 67 18 144/74 H 08/22/18 13:59 08/22/18 13:59 08/22/18 13:59 08/22/18 13:59 General: Alert, Oriented x3, Cooperative, No apparent distress HEENT: Atraumatic, Normocephalic Oral: Moist Mucosa Extremities: Edema Skin: Ulcer/ Wound Wound Measurements and Assessment WC - Nurse 1 - General Ulcer Measurement Start: 08/15/18 13:52 Freq: Status: Active Protocol: Activity Type Activity Date Activity User E-Sign Co-Sign Detail Recorded Client Recorded Date Recorded By Document 08/22/18 13:59 OR [id number] 08/22/18 14:08 OR 08/22/18 13:59 Wound Center Nurse 1 [Ulcer Assessment] #8 COCCYX -Combined with other wound No -Current Size (cm) - Length 1.5 -Current Size (cm) - Width 0.6 -Current Size (cm) - Depth 0.1 -Total Square Cm 0.90 -Date of Last Picture (Recall this 08/22/18 field) -Photo Taken Yes -Epithelialization Small 1-33% -Tunneling No -Undermining/Tunneling No -Circular Undermining No -Classification - Pressure Ulcer Stage 2 -Exudate Amt Small -Exudate Type Serosanguineous -Wound Margin Flat & Intact -Granulation Amt Large (67-100%) -Granulation Quality Pale [place] -Slough/Fibrin No -Texture (Shahana-wound Skin Appearance) Assessed -Moisture (Shahana-wound Skin Appearance Assessed ) Maceration -Color (Shahana-wound Skin Appearance) Assessed -Temperature (Shahana-wound Skin No Abnormality Appearance) (Pt Warm) -Tenderness on Palpation (Shahana-wound No Skin Appearance) -Ulcer Cleansing Rinsed/ Irrigated with Saline -Foul Odor after Cleansing No -Anesthetic Used 5% Lidocaine Gel WC - Nurse 2 - General Ulcer CM Notes Start: 08/15/18 13:52 Freq: Status: Active Protocol: Activity Type Activity Date Activity User E-Sign Co-Sign Detail Recorded Client Recorded Date Recorded By Document 08/22/18 14:51 DV [id number] 08/22/18 15:30 DV 08/22/18 14:51 Wound Center Nurse 2 [Procedure/Treatment] #9 Lateral 4th Toe -Time 14:55 -Correct Patient Yes -Correct Side, Site, Position Yes -Correct Procedure Yes -Procedure Performed Yes -Type of Procedure Debridement -Clinical Debridement Subcutaneous -Post Debridement Size (cm) - Length 0.5 -Post Debridement Size (cm) - Width 0.3 -Post Debridement Size (cm) - Depth 0.1 -Total Square Cm 0.15 -Wound/Ulcer Outcome Not Healed -Ulcer Cleansing Rinsed/ Irrigated with Saline -Foul Odor after Cleansing No -Bioengineered Tissue No -Bleeding Controlled with Pressure -Offloading No -Type of Offloading Surgical Shoe -Treatment Response Procedure Tolerated Well #8 COCCYX -Time 14:52 -Correct Patient Yes -Correct Side, Site, Position Yes -Correct Procedure Yes -Procedure Performed Yes -Type of Procedure Debridement -Clinical Debridement Subcutaneous -Post Debridement Size (cm) - Length 0.9 -Post Debridement Size (cm) - Width 0.7 -Post Debridement Size (cm) - Depth 0.1 -Total Square Cm 0.63 -Wound/Ulcer Outcome Not Healed -Ulcer Cleansing Rinsed/ Irrigated with Saline -Foul Odor after Cleansing No -Bioengineered Tissue No -Bleeding Controlled with Pressure -Offloading No -Treatment Response Procedure Not Tolerated Well #7 Right 5th Toe -Time 14:52 -Correct Patient Yes -Correct Side, Site, Position Yes -Procedure Performed No -Post Debridement Size (cm) - Length 0 -Post Debridement Size (cm) - Width 0 -Post Debridement Size (cm) - Depth 0 -Total Square Cm 0 -Wound/Ulcer Outcome Healed- Epithelialized #6 Right 2nd Toe -Time 14:58 -Correct Patient Yes -Correct Side, Site, Position Yes -Correct Procedure Yes -Procedure Performed Yes -Type of Procedure Debridement -Clinical Debridement Subcutaneous -Post Debridement Size (cm) - Length 1.1 -Post Debridement Size (cm) - Width 0.5 -Post Debridement Size (cm) - Depth 0.1 -Total Square Cm 0.55 -Wound/Ulcer Outcome Not Healed -Ulcer Cleansing Rinsed/ Irrigated with Saline -Foul Odor after Cleansing No -Bioengineered Tissue No -Bleeding Controlled with Pressure -Offloading No -Treatment Response Procedure Not Tolerated Well #4 RIGHT ACHILLES -Time 15:20 -Correct Patient Yes -Correct Side, Site, Position Yes -Correct Procedure Yes -Procedure Performed Yes -Type of Procedure Debridement -Clinical Debridement Subcutaneous -Post Debridement Size (cm) - Length 0.8 -Post Debridement Size (cm) - Width 0.9 -Post Debridement Size (cm) - Depth 0.2 -Total Square Cm 0.72 -Wound/Ulcer Outcome Not Healed -Ulcer Cleansing Rinsed/ Irrigated with Saline -Foul Odor after Cleansing No -Bioengineered Tissue No -Bleeding Controlled with Pressure -Offloading Yes -Treatment Response Procedure Not Tolerated Well #2 R Heel -Time 15:22 -Correct Patient Yes -Correct Side, Site, Position Yes -Correct Procedure Yes -Procedure Performed Yes -Type of Procedure Debridement -Clinical Debridement Subcutaneous -Post Debridement Size (cm) - Length 2.3 -Post Debridement Size (cm) - Width 1.8 -Post Debridement Size (cm) - Depth 1.0 -Total Square Cm 4.14 -Wound/Ulcer Outcome Not Healed -Ulcer Cleansing Rinsed/ Irrigated with Saline -Foul Odor after Cleansing No -Bioengineered Tissue No -Bleeding Controlled with Pressure -Treatment Response Procedure Not Tolerated Well [See Physician Procedure note for Specifics] Pain Scale: 0-10 Numeric [Pain] -Is Patient Pain Free? Yes Psych/Mental Status: Normal Affect, Appropriate Debridement Note Post-Debridement Measurements/Treatment WC - Nurse 2 - General Ulcer CM Notes Start: 08/15/18 13:52 Freq: Status: Active Protocol: Activity Type Activity Date Activity User E-Sign Co-Sign Detail Recorded Client Recorded Date Recorded By Document 08/15/18 14:36 DV [id number] 08/15/18 15:13 DV Document 08/22/18 14:51 DV [id number] 08/22/18 15:30 DV 08/15/18 08/22/18 14:36 14:51 Wound Center Nurse 2 #9 Lateral 4th Toe -Time 14:55 -Correct Patient Yes -Correct Side, Site, Position Yes -Correct Procedure Yes -Procedure Performed Yes -Type of Procedure Debridement -Clinical Debridement Subcutaneous -Post Debridement Size (cm) - Length 0.5 -Post Debridement Size (cm) - Width 0.3 -Post Debridement Size (cm) - Depth 0.1 -Total Square Cm 0.15 -Wound/Ulcer Outcome Not Healed -Ulcer Cleansing Rinsed/ Irrigated with Saline -Foul Odor after Cleansing No -Bioengineered Tissue No -Bleeding Controlled with Pressure -Offloading No -Type of Offloading Surgical Shoe -Treatment Response Procedure Tolerated Well #8 COCCYX -Time 14:52 -Correct Patient Yes -Correct Side, Site, Position Yes -Correct Procedure Yes -Procedure Performed Yes -Type of Procedure Debridement -Clinical Debridement Subcutaneous -Post Debridement Size (cm) - Length 0.9 -Post Debridement Size (cm) - Width 0.7 -Post Debridement Size (cm) - Depth 0.1 -Total Square Cm 0.63 -Wound/Ulcer Outcome Not Healed -Ulcer Cleansing Rinsed/ Irrigated with Saline -Foul Odor after Cleansing No -Bioengineered Tissue No -Bleeding Controlled with Pressure -Offloading No -Treatment Response Procedure Not Tolerated Well #7 Right 5th Toe -Time 15:10 14:52 -Correct Patient Yes Yes -Correct Side, Site, Position Yes Yes -Correct Procedure Yes -Procedure Performed Yes No -Type of Procedure Debridement -Clinical Debridement Subcutaneous -Post Debridement Size (cm) - Length 0.7 0 -Post Debridement Size (cm) - Width 0.5 0 -Post Debridement Size (cm) - Depth 0.1 0 -Total Square Cm 0.35 0 -Wound/Ulcer Outcome Failed Flap Healed- Epithelialized -Ulcer Cleansing Rinsed/ Irrigated with Saline -Foul Odor after Cleansing No -Bioengineered Tissue No -Type of Offloading Surgical Shoe -Treatment Response Procedure Tolerated Well #6 Right 2nd Toe -Time 14:41 14:58 -Correct Patient Yes Yes -Correct Side, Site, Position Yes Yes -Correct Procedure Yes Yes -Procedure Performed Yes Yes -Type of Procedure Debridement Debridement -Clinical Debridement Subcutaneous Subcutaneous -Post Debridement Size (cm) - Length 1.5 1.1 -Post Debridement Size (cm) - Width 1.0 0.5 -Post Debridement Size (cm) - Depth 0.1 0.1 -Total Square Cm 1.50 0.55 -Wound/Ulcer Outcome Not Healed Not Healed -Ulcer Cleansing Rinsed/ Rinsed/ Irrigated with Irrigated with Saline Saline -Foul Odor after Cleansing No No -Bioengineered Tissue No No -Bleeding Controlled with Pressure Pressure -Offloading Yes No -Type of Offloading Surgical Shoe -Treatment Response Procedure Procedure Not Tolerated Well Tolerated Well #4 RIGHT ACHILLES -Time 14:42 15:20 -Correct Patient Yes Yes -Correct Side, Site, Position Yes Yes -Correct Procedure Yes Yes -Procedure Performed Yes Yes -Type of Procedure Debridement Debridement -Clinical Debridement Subcutaneous Subcutaneous -Post Debridement Size (cm) - Length 0.7 0.8 -Post Debridement Size (cm) - Width 1.0 0.9 -Post Debridement Size (cm) - Depth 0.2 0.2 -Total Square Cm 0.70 0.72 -Wound/Ulcer Outcome Not Healed Not Healed -Ulcer Cleansing Rinsed/ Rinsed/ Irrigated with Irrigated with Saline Saline -Foul Odor after Cleansing No No -Bioengineered Tissue No No -Bleeding Controlled with Pressure Pressure -Offloading Yes Yes -Type of Offloading Surgical Shoe -Treatment Response Procedure Procedure Not Tolerated Well Tolerated Well #2 R Heel -Time 14:43 15:22 -Correct Patient Yes Yes -Correct Side, Site, Position Yes Yes -Correct Procedure Yes Yes -Procedure Performed Yes Yes -Type of Procedure Debridement Debridement -Clinical Debridement Subcutaneous Subcutaneous -Post Debridement Size (cm) - Length 1.7 2.3 -Post Debridement Size (cm) - Width 1.5 1.8 -Post Debridement Size (cm) - Depth 0.3 1.0 -Total Square Cm 2.55 4.14 -Wound/Ulcer Outcome Not Healed Not Healed -Ulcer Cleansing Rinsed/ Rinsed/ Irrigated with Irrigated with Saline Saline -Foul Odor after Cleansing No No -Bioengineered Tissue No No -Bleeding Controlled with Pressure Pressure -Offloading Yes -Type of Offloading Surgical Shoe -Treatment Response Procedure Procedure Not Tolerated Well Tolerated Well Pain Scale: 0-10 Numeric Is Patient Pain Free? Yes Yes Wound debrided: lateral 4th toe right foot Laterality: Right Type of Debridement: Excisional debridement Anesthesia Used: 4% Lidocaine Solution, 5% Lidocaine Gel Depth: Down to and including healthy tissue, in the subcutaneous layer Percentage of wound debrided: 100 Instrument Used: 5mm curette Tissue Removed: yellow slough, devitalized tissue Severity: Fat Layer Exposed Amount of bleeding with debridement: Mild Bleeding Controlled with: Compression and gauze Patient tolerated procedure well - Additional Wound Wound debrided: coccyx Laterality: Right Wound Grade/Stage: stage 2 Type of Debridement: Excisional debridement Anesthesia Used: 4% Lidocaine Solution, 5% Lidocaine Gel Depth: Down to and including healthy tissue, in the subcutaneous layer Percentage of wound debrided: 100 Instrument Used: 5mm curette Tissue Removed: yellow slough, devitalized tissue Severity: Fat Layer Exposed Amount of bleeding with debridement: Mild Bleeding Controlled with: Compression and gauze Patient tolerated procedure: Patient tolerated procedure well - Additional Wound Wound debrided: right fifth toe Laterality: Right Type of Debridement: Selective debridement Anesthesia Used: 4% Lidocaine Solution, 5% Lidocaine Gel Depth: Down to and including healthy tissue Percentage of wound debrided: 100 Instrument Used: 5mm curette Tissue Removed: devitalized tissue Severity: Limited To Skin Breakdown Amount of bleeding with debridement: None Patient tolerated procedure: Patient tolerated procedure well Operative Diagnosis: wound is healed - Additional Wound Wound debrided: right 2nd toe Laterality: Right Type of Debridement: Excisional debridement Anesthesia Used: 4% Lidocaine Solution, 5% Lidocaine Gel Depth: Down to and including healthy tissue, in the subcutaneous layer Percentage of wound debrided: 100 Instrument Used: 5mm curette Tissue Removed: yellow slough, devitalized tissue Severity: Fat Layer Exposed Amount of bleeding with debridement: Mild Bleeding Controlled with: Compression and gauze Patient tolerated procedure: Patient tolerated procedure well - Additional Wound Wound debrided: right achilles Laterality: Right Type of Debridement: Excisional debridement Anesthesia Used: 4% Lidocaine Solution, 5% Lidocaine Gel, Cetacaine - 1% with epi Depth: Down to and including healthy tissue, in the subcutaneous layer Percentage of wound debrided: 100 Instrument Used: 5mm curette, #10 blade, Forceps Tissue Removed: yellow slough, devitalized tissue Severity: Fat Layer Exposed Amount of bleeding with debridement: Mild Bleeding Controlled with: Compression and gauze Patient tolerated procedure: Patient tolerated procedure well - Additional Wound Wound debrided: right heel Laterality: Right Type of Debridement: Excisional debridement Anesthesia Used: 4% Lidocaine Solution, 5% Lidocaine Gel, Cetacaine - 1% with epi Depth: Down to and including healthy tissue, in the subcutaneous layer Percentage of wound debrided: 100 Instrument Used: #10 blade, Forceps Tissue Removed: yellow slough, devitalized tissue Severity: Fat Layer Exposed Amount of bleeding with debridement: Mild Bleeding Controlled with: Compression and gauze Patient tolerated procedure: Patient tolerated procedure well Assessment/Plan Active Problems Type 2 diabetes, uncontrolled, with ulcer of heel (Chronic) right plantar heel and right achilles Varicose veins of right lower extremity with ulcer (Chronic) Stage II pressure ulcer of sacral region (Chronic) Diabetes with ulcer of toe (Chronic) Peripheral vascular disease (Chronic) Type II diabetes mellitus (Chronic) Assessment: 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 Diabetes mellitus - uncontrolled. Peripheral vascular disease - status post revascularization 08/07/18. right pat venous ulcer - healed. stage 2 pressure ulcer coccyx. right 5th toe and right second toe ulcers Plan: Gibson's ulcers were evaluated and debrided today. There is not much improvement in his ulcers overall which may be due to his edema and PAD. He is tolerating antibiotics. Xrays showed no osteomyelitis. Will continue to treat his ulcers with [place] and Ve[place]. Dr. Navas performed a SFA-ant. tib. bypass on his right leg on 08/07/18. Discussed offloading importance and gave him a surgical shoe to wear to offload his heel. Discuss TCC but he refuses at this time. Single layer tubigrip compression advised if he can tolerate this, avoidance of idle standing or sitting with legs hanging down. Encouraged improved control of his blood sugars. Encouraged him to seek consultation with pain management for his pain and gave him a 7 day RX (#56) for tramadol to use for pain as needed on 08/15/18. [place] checked and appropriate. Encouarged to call with increased drainage, redness or fever or chills. Will f/u in 1 week.
[2018-08-29 14:07] VITALS: BP 127/69; PULSE 89; RESP 18; TEMP 36.6; BMI 27.3
--- NOTE | 2018-08-29 17:51 | PCM.WC.PN ---
(1) Type 2 diabetes, uncontrolled, with ulcer of heel Status: Chronic Current Visit: Yes Code(s): E11.621 - Type 2 diabetes mellitus with foot ulcer; E11.65 - Type 2 diabetes mellitus with hyperglycemia; L97.409 - Non-pressure chronic ulcer of unspecified heel and midfoot with unspecified severity Comment: right plantar heel and right achilles (2) Peripheral vascular disease Status: Chronic Current Visit: Yes Code(s): I73.9 - Peripheral vascular disease, unspecified (3) Type II diabetes mellitus Status: Chronic Current Visit: Yes Qualifiers: Diabetes mellitus long-term insulin use: unspecified long-term insulin use status Diabetes mellitus complication status: with skin complications Diabetes mellitus complication detail: with foot ulcer Qualified Code(s): E11.621 - Type 2 diabetes mellitus with foot ulcer; L97.509 - Non-pressure chronic ulcer of other part of unspecified foot with unspecified severity Code(s): E11.9 - Type 2 diabetes mellitus without complications (4) Varicose veins of right lower extremity with ulcer Status: Chronic Current Visit: Yes Qualifiers: Lower extremity ulceration location: other part of foot Non-pressure ulcer stage: with fat layer exposed Qualified Code(s): I83.015 - Varicose veins of right lower extremity with ulcer other part of foot; L97.512 - Non-pressure chronic ulcer of other part of right foot with fat layer exposed Code(s): I83.019 - Varicose veins of right lower extremity with ulcer of unspecified site; L97.919 - Non-pressure chronic ulcer of unspecified part of right lower leg with unspecified severity (5) Stage II pressure ulcer of sacral region Status: Chronic Current Visit: Yes Code(s): L89.152 - Pressure ulcer of sacral region, stage 2 (6) Diabetes with ulcer of toe Status: Chronic Current Visit: Yes Qualifiers: Diabetes mellitus type: type 2 Laterality: right Non-pressure ulcer stage: with fat layer exposed Qualified Code(s): E11.621 - Type 2 diabetes mellitus with foot ulcer; L97.512 - Non-pressure chronic ulcer of other part of right foot with fat layer exposed Code(s): E11.621 - Type 2 diabetes mellitus with foot ulcer; L97.509 - Non-pressure chronic ulcer of other part of unspecified foot with unspecified severity Type of Wound Date of Service: 08/29/18 Chief Complaint: Nonhealing ulcers right heel History of Wound: This 68-year-old male is here for evaluation of an ulcer of his right heel and his right pat. He states that he has had an ulcer approx. 5 years ago of this same heel and was treated here and was healed after vascular interventions by Dr. Navas. He has noticed increased pain in his heel for the last few months and approx. beginning of May he noted an open wound to his right heel. He was using gauze but this started to irritate his skin and has been using silvadene and adaptic to the wound with tape for the last few weeks. He has not had any treatment with antibiotics for the wound. He is self-referred for treatment here. He does follow with Dr. 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 He has had procedures for his arterial disease in past to both of his lower extremities. From review of records it seems that Dr. Navas planned to do a right SFA-ant. tib bypass but it does not appear that this was done and patient denies having any bypass procedures other than his heart. It sounds like he is trying alternative treatments with supplements and chelation therapy. He also has diabetes and his last A1C several months ago was 7.2% but he stopped glyburide because he felt it was causing blisters of his legs. He does wear diabetic shoes. He has been undergoing chelation treatments by Dr. German in [place]. Dr. German prescribed him oxycodone-APAP 5/325 mg #60 which were filled on 05/22/18 for pain, he has six tablets left from this prescription, and he is asking for pain medication to treat pain from debridement. He reports having xrays done several months ago of his right heel due to pain which did not show any osteomyelitis or acute fractures. He denies fever, chills, erythema or heavy drainage. He reports significant pain and discomfort of his right heel and his entire right leg which no one can explain. Progress of Wound: Gibson is here to follow up for nonhealing ulcers of his right foot. He tolerated the dressings and is wearing tubigrip compression most of the time. He underwent artificial bypass graft of his ant. tibial to femoral artery on 08/07/18. He had an AK postoperatively and is being treated medically. He continues to have severe pain in his ankle/heel. He has had improvement of his ulcers. He was approved for [employer] for adjunctive treatment of his ulcers. His pressure ulcer of his sacral area is improved this week. He has a venous ulcer on his right second toe. He has been trying to elevate his foot and has been using his surgical shoe to offload as well. Denies fever or chills or increased drainage. - Physical Exam Vital Signs Temp Pulse Resp BP 98 F 89 18 127/69 H 08/29/18 14:07 08/29/18 14:07 08/29/18 14:07 08/29/18 14:07 General: Alert, Oriented x3, Cooperative, No apparent distress HEENT: Atraumatic, Normocephalic Oral: Moist Mucosa Extremities: Edema Wound Measurements and Assessment WC - Nurse 1 - General Ulcer Measurement Start: 08/15/18 13:52 Freq: Status: Active Protocol: Activity Type Activity Date Activity User E-Sign Co-Sign Detail Recorded Client Recorded Date Recorded By Document 08/29/18 14:07 [id number] 08/29/18 14:21 RB 08/29/18 14:07 Wound Center Nurse 1 [Ulcer Assessment] #9 R Lateral 4th Toe -Combined with other wound No -Current Size (cm) - Length 0.1 -Current Size (cm) - Width 0.1 -Current Size (cm) - Depth 0.1 -Total Square Cm 0.01 -Tunneling No -Undermining/Tunneling No -Circular Undermining No -Exudate Amt None Present -Wound Margin Distinct, Outline Attached -Granulation Amt Large (67-100%) -Granulation Quality [place] -Slough/Fibrin Yes -Necrosis Amt Small (1-33%) -Necrotic Tissue Type Adherent Slough -Structure Exposed N/A -Texture (Shahana-wound Skin Appearance) Assessed -Moisture (Shahana-wound Skin Appearance Assessed ) -Color (Shahana-wound Skin Appearance) Assessed -Temperature (Shahana-wound Skin No Abnormality Appearance) (Pt Warm) -Tenderness on Palpation (Shahana-wound No Skin Appearance) -Ulcer Cleansing Rinsed/ Irrigated with Saline -Foul Odor after Cleansing No -Anesthetic Used 5% Lidocaine Gel #8 COCCYX -Combined with other wound No -Current Size (cm) - Length 0.3 -Current Size (cm) - Width 0.4 -Current Size (cm) - Depth 0.1 -Total Square Cm 0.12 -Tunneling No -Undermining/Tunneling No -Circular Undermining No -Exudate Amt None Present -Wound Margin Distinct, Outline Attached -Granulation Amt Small (1-33%) -Granulation Quality [place] -Slough/Fibrin Yes -Necrosis Amt Medium (34-66%) -Necrotic Tissue Type Adherent Slough -Structure Exposed N/A -Texture (Shahana-wound Skin Appearance) Assessed Scarring -Moisture (Shahana-wound Skin Appearance Assessed ) -Color (Shahana-wound Skin Appearance) Assessed -Temperature (Shahana-wound Skin No Abnormality Appearance) (Pt Warm) -Tenderness on Palpation (Shahana-wound No Skin Appearance) -Ulcer Cleansing Rinsed/ Irrigated with Saline -Foul Odor after Cleansing No -Anesthetic Used 5% Lidocaine Gel #6 Right 2nd Toe -Combined with other wound No -Current Size (cm) - Length 0.1 -Current Size (cm) - Width 0.1 -Current Size (cm) - Depth 0.1 -Total Square Cm 0.01 -Tunneling No -Undermining/Tunneling No -Circular Undermining No -Exudate Amt None Present -Wound Margin Distinct, Outline Attached -Granulation Amt Large (67-100%) -Granulation Quality [place] -Slough/Fibrin Yes -Necrosis Amt Small (1-33%) -Necrotic Tissue Type Adherent Slough -Structure Exposed N/A -Texture (Shahana-wound Skin Appearance) Assessed -Moisture (Shahana-wound Skin Appearance Assessed ) -Color (Shahana-wound Skin Appearance) Assessed -Temperature (Shahana-wound Skin No Abnormality Appearance) (Pt Warm) -Tenderness on Palpation (Shahana-wound No Skin Appearance) -Ulcer Cleansing Rinsed/ Irrigated with Saline -Foul Odor after Cleansing No -Anesthetic Used 5% Lidocaine Gel #4 RIGHT ACHILLES -Combined with other wound No -Current Size (cm) - Length 0.4 -Current Size (cm) - Width 0.5 -Current Size (cm) - Depth 0.2 -Total Square Cm 0.20 -Tunneling No -Undermining/Tunneling No -Circular Undermining No -Exudate Amt Small -Exudate Type Serosanguineous -Wound Margin Thickened -Granulation Amt Medium (34-66%) -Granulation Quality [place] -Slough/Fibrin Yes -Necrosis Amt Medium (34-66%) -Necrotic Tissue Type Adherent Slough -Structure Exposed N/A -Texture (Shahana-wound Skin Appearance) Assessed Callus -Moisture (Shahana-wound Skin Appearance Assessed ) -Color (Shahana-wound Skin Appearance) Assessed -Temperature (Shahana-wound Skin No Abnormality Appearance) (Pt Warm) -Tenderness on Palpation (Shahana-wound No Skin Appearance) -Ulcer Cleansing Rinsed/ Irrigated with Saline -Foul Odor after Cleansing No -Anesthetic Used 5% Lidocaine Gel #2 R Heel -Combined with other wound No -Current Size (cm) - Length 1.9 -Current Size (cm) - Width 1.2 -Current Size (cm) - Depth 0.3 -Total Square Cm 2.28 -Tunneling No -Undermining/Tunneling No -Circular Undermining No -Exudate Amt Medium -Exudate Type Serosanguineous -Wound Margin Thickened -Granulation Amt Medium (34-66%) -Granulation Quality [place] -Slough/Fibrin Yes -Necrosis Amt Medium (34-66%) -Necrotic Tissue Type Adherent Slough -Structure Exposed N/A -Texture (Shahana-wound Skin Appearance) Callus -Moisture (Shahana-wound Skin Appearance Maceration ) -Color (Shahana-wound Skin Appearance) Assessed -Temperature (Shahana-wound Skin No Abnormality Appearance) (Pt Warm) -Tenderness on Palpation (Shahana-wound No Skin Appearance) -Ulcer Cleansing Wound Cleanser -Foul Odor after Cleansing No -Anesthetic Used 5% Lidocaine Gel [Edema Assessment] -Lower Limb Edema Present Yes -Left Calf (cm) 27.6 -Left Ankle (cm) 20.9 WC - Nurse 2 - General Ulcer CM Notes Start: 08/15/18 13:52 Freq: Status: Active Protocol: Activity Type Activity Date Activity User E-Sign Co-Sign Detail Recorded Client Recorded Date Recorded By Document 08/29/18 14:54 DV [id number] 08/29/18 15:06 DV 08/29/18 14:54 Wound Center Nurse 2 [Procedure/Treatment] #9 R Lateral 4th Toe -Time 14:57 -Correct Patient Yes -Correct Side, Site, Position Yes -Correct Procedure No -Procedure Performed No -Post Debridement Size (cm) - Length 0 -Post Debridement Size (cm) - Width 0 -Post Debridement Size (cm) - Depth 0 -Total Square Cm 0 -Wound/Ulcer Outcome Failed Graft #8 COCCYX -Time 15:02 -Correct Patient Yes -Correct Side, Site, Position Yes -Correct Procedure Yes -Procedure Performed Yes -Type of Procedure Debridement -Clinical Debridement Subcutaneous -Post Debridement Size (cm) - Length 0.2 -Post Debridement Size (cm) - Width 0.1 -Post Debridement Size (cm) - Depth 0.1 -Total Square Cm 0.02 -Wound/Ulcer Outcome Not Healed -Ulcer Cleansing Rinsed/ Irrigated with Saline -Foul Odor after Cleansing No -Bioengineered Tissue No -Bleeding Controlled with Pressure -Offloading No -Treatment Response Procedure Tolerated Well #6 Right 2nd Toe -Time 14:56 -Correct Patient Yes -Correct Side, Site, Position Yes -Correct Procedure Yes -Procedure Performed Yes -Type of Procedure Debridement -Clinical Debridement Subcutaneous -Post Debridement Size (cm) - Length 1.1 -Post Debridement Size (cm) - Width 0.3 -Post Debridement Size (cm) - Depth 0.1 -Total Square Cm 0.33 -Wound/Ulcer Outcome Not Healed -Ulcer Cleansing Rinsed/ Irrigated with Saline -Foul Odor after Cleansing No -Bioengineered Tissue No -Bleeding Controlled with Pressure -Offloading No -Treatment Response Procedure Tolerated Well #4 RIGHT ACHILLES -Time 14:55 -Correct Patient Yes -Correct Side, Site, Position Yes -Correct Procedure Yes -Procedure Performed Yes -Type of Procedure Debridement -Clinical Debridement Subcutaneous -Post Debridement Size (cm) - Length 0.7 -Post Debridement Size (cm) - Width 0.8 -Post Debridement Size (cm) - Depth 0.2 -Total Square Cm 0.56 -Wound/Ulcer Outcome Not Healed -Bleeding Controlled with Pressure -Offloading No -Treatment Response Procedure Tolerated Well #2 R Heel -Time 14:55 -Correct Patient Yes -Correct Side, Site, Position Yes -Correct Procedure Yes -Procedure Performed Yes -Type of Procedure Debridement -Clinical Debridement Subcutaneous -Post Debridement Size (cm) - Length 2.0 -Post Debridement Size (cm) - Width 1.9 -Post Debridement Size (cm) - Depth 0.5 -Total Square Cm 3.80 -Wound/Ulcer Outcome Not Healed -Ulcer Cleansing Rinsed/ Irrigated with Saline -Foul Odor after Cleansing No -Bioengineered Tissue No -Bleeding Controlled with Pressure -Offloading Yes -Treatment Response Procedure Tolerated Well [See Physician Procedure note for Specifics] Pain Scale: 0-10 Numeric [Pain] -Is Patient Pain Free? Yes Psych/Mental Status: Normal Affect, Appropriate Debridement Note Post-Debridement Measurements/Treatment WC - Nurse 2 - General Ulcer CM Notes Start: 08/15/18 13:52 Freq: Status: Active Protocol: Activity Type Activity Date Activity User E-Sign Co-Sign Detail Recorded Client Recorded Date Recorded By Document 08/15/18 14:36 DV [id number] 08/15/18 15:13 DV Document 08/22/18 14:51 DV [id number] 08/22/18 15:30 DV Document 08/29/18 14:54 DV [id number] 08/29/18 15:06 DV 08/15/18 08/22/18 08/29/18 14:36 14:51 14:54 Wound Center Nurse 2 #9 R Lateral 4th Toe -Time 14:55 14:57 -Correct Patient Yes Yes -Correct Side, Site, Position Yes Yes -Correct Procedure Yes No -Procedure Performed Yes No -Type of Procedure Debridement -Clinical Debridement Subcutaneous -Post Debridement Size (cm) - Length 0.5 0 -Post Debridement Size (cm) - Width 0.3 0 -Post Debridement Size (cm) - Depth 0.1 0 -Total Square Cm 0.15 0 -Wound/Ulcer Outcome Not Healed Failed Graft -Ulcer Cleansing Rinsed/ Irrigated with Saline -Foul Odor after Cleansing No -Bioengineered Tissue No -Bleeding Controlled with Pressure -Offloading No -Type of Offloading Surgical Shoe -Treatment Response Procedure Tolerated Well #8 COCCYX -Time 14:52 15:02 -Correct Patient Yes Yes -Correct Side, Site, Position Yes Yes -Correct Procedure Yes Yes -Procedure Performed Yes Yes -Type of Procedure Debridement Debridement -Clinical Debridement Subcutaneous Subcutaneous -Post Debridement Size (cm) - Length 0.9 0.2 -Post Debridement Size (cm) - Width 0.7 0.1 -Post Debridement Size (cm) - Depth 0.1 0.1 -Total Square Cm 0.63 0.02 -Wound/Ulcer Outcome Not Healed Not Healed -Ulcer Cleansing Rinsed/ Rinsed/ Irrigated with Irrigated with Saline Saline -Foul Odor after Cleansing No No -Bioengineered Tissue No No -Bleeding Controlled with Pressure Pressure -Offloading No No -Treatment Response Procedure Not Procedure Tolerated Well Tolerated Well #7 Right 5th Toe -Time 15:10 14:52 -Correct Patient Yes Yes -Correct Side, Site, Position Yes Yes -Correct Procedure Yes -Procedure Performed Yes No -Type of Procedure Debridement -Clinical Debridement Subcutaneous -Post Debridement Size (cm) - Length 0.7 0 -Post Debridement Size (cm) - Width 0.5 0 -Post Debridement Size (cm) - Depth 0.1 0 -Total Square Cm 0.35 0 -Wound/Ulcer Outcome Failed Flap Healed- Epithelialized -Ulcer Cleansing Rinsed/ Irrigated with Saline -Foul Odor after Cleansing No -Bioengineered Tissue No -Type of Offloading Surgical Shoe -Treatment Response Procedure Tolerated Well #6 Right 2nd Toe -Time 14:41 14:58 14:56 -Correct Patient Yes Yes Yes -Correct Side, Site, Position Yes Yes Yes -Correct Procedure Yes Yes Yes -Procedure Performed Yes Yes Yes -Type of Procedure Debridement Debridement Debridement -Clinical Debridement Subcutaneous Subcutaneous Subcutaneous -Post Debridement Size (cm) - Length 1.5 1.1 1.1 -Post Debridement Size (cm) - Width 1.0 0.5 0.3 -Post Debridement Size (cm) - Depth 0.1 0.1 0.1 -Total Square Cm 1.50 0.55 0.33 -Wound/Ulcer Outcome Not Healed Not Healed Not Healed -Ulcer Cleansing Rinsed/ Rinsed/ Rinsed/ Irrigated with Irrigated with Irrigated with Saline Saline Saline -Foul Odor after Cleansing No No No -Bioengineered Tissue No No No -Bleeding Controlled with Pressure Pressure Pressure -Offloading Yes No No -Type of Offloading Surgical Shoe -Treatment Response Procedure Procedure Not Procedure Tolerated Well Tolerated Well Tolerated Well #4 RIGHT ACHILLES -Time 14:42 15:20 14:55 -Correct Patient Yes Yes Yes -Correct Side, Site, Position Yes Yes Yes -Correct Procedure Yes Yes Yes -Procedure Performed Yes Yes Yes -Type of Procedure Debridement Debridement Debridement -Clinical Debridement Subcutaneous Subcutaneous Subcutaneous -Post Debridement Size (cm) - Length 0.7 0.8 0.7 -Post Debridement Size (cm) - Width 1.0 0.9 0.8 -Post Debridement Size (cm) - Depth 0.2 0.2 0.2 -Total Square Cm 0.70 0.72 0.56 -Wound/Ulcer Outcome Not Healed Not Healed Not Healed -Ulcer Cleansing Rinsed/ Rinsed/ Irrigated with Irrigated with Saline Saline -Foul Odor after Cleansing No No -Bioengineered Tissue No No -Bleeding Controlled with Pressure Pressure Pressure -Offloading Yes Yes No -Type of Offloading Surgical Shoe -Treatment Response Procedure Procedure Not Procedure Tolerated Well Tolerated Well Tolerated Well #2 R Heel -Time 14:43 15:22 14:55 -Correct Patient Yes Yes Yes -Correct Side, Site, Position Yes Yes Yes -Correct Procedure Yes Yes Yes -Procedure Performed Yes Yes Yes -Type of Procedure Debridement Debridement Debridement -Clinical Debridement Subcutaneous Subcutaneous Subcutaneous -Post Debridement Size (cm) - Length 1.7 2.3 2.0 -Post Debridement Size (cm) - Width 1.5 1.8 1.9 -Post Debridement Size (cm) - Depth 0.3 1.0 0.5 -Total Square Cm 2.55 4.14 3.80 -Wound/Ulcer Outcome Not Healed Not Healed Not Healed -Ulcer Cleansing Rinsed/ Rinsed/ Rinsed/ Irrigated with Irrigated with Irrigated with Saline Saline Saline -Foul Odor after Cleansing No No No -Bioengineered Tissue No No No -Bleeding Controlled with Pressure Pressure Pressure -Offloading Yes Yes -Type of Offloading Surgical Shoe -Treatment Response Procedure Procedure Not Procedure Tolerated Well Tolerated Well Tolerated Well Pain Scale: 0-10 Numeric Is Patient Pain Free? Yes Yes Yes Wound debrided: right lateral 4th toe Laterality: Right Wound Grade/Stage: Stage 2 pressure ulcer No debridement was completed today - ulcer is healed - Additional Wound Wound debrided: coccyx Laterality: Not Applicable Wound Grade/Stage: Stage 2 Type of Debridement: Excisional debridement Anesthesia Used: 4% Lidocaine Solution Depth: Down to and including healthy tissue, in the subcutaneous layer Percentage of wound debrided: 100 Instrument Used: 5mm curette Tissue Removed: yellow slough, devitalized tissue Severity: Fat Layer Exposed Amount of bleeding with debridement: Mild Bleeding Controlled with: Compression and gauze Patient tolerated procedure: Patient tolerated procedure well - Additional Wound Wound debrided: right second toe Laterality: Right Type of Debridement: Excisional debridement Anesthesia Used: 4% Lidocaine Solution, 5% Lidocaine Gel Depth: Down to and including healthy tissue, in the subcutaneous layer Percentage of wound debrided: 100 Instrument Used: 5mm curette Tissue Removed: yellow slough, devitalized tissue Severity: Fat Layer Exposed Amount of bleeding with debridement: Mild Bleeding Controlled with: Compression and gauze Patient tolerated procedure: Patient tolerated procedure well - Additional Wound Wound debrided: right achilles Laterality: Right Wound Grade/Stage: Valdez grade 2 Type of Debridement: Excisional debridement Anesthesia Used: 4% Lidocaine Solution, 5% Lidocaine Gel, Cetacaine - 2% Depth: Down to and including healthy tissue, in the subcutaneous layer Percentage of wound debrided: 100 Instrument Used: 5mm curette Tissue Removed: yellow slough, devitalized tissue Severity: Fat Layer Exposed Amount of bleeding with debridement: Mild Bleeding Controlled with: Compression and gauze Patient tolerated procedure: Patient tolerated procedure well - Additional Wound Wound debrided: right heel Laterality: Right Wound Grade/Stage: Valdez grade 2 Type of Debridement: Excisional debridement Anesthesia Used: 4% Lidocaine Solution, 5% Lidocaine Gel, Cetacaine - 2% Depth: Down to and including healthy tissue, in the subcutaneous layer Percentage of wound debrided: 100 Instrument Used: 5mm curette Tissue Removed: yellow slough, devitalized tissue Severity: Fat Layer Exposed Amount of bleeding with debridement: Mild Bleeding Controlled with: Compression and gauze Patient tolerated procedure: Patient tolerated procedure well Assessment/Plan Active Problems Type 2 diabetes, uncontrolled, with ulcer of heel (Chronic) right plantar heel and right achilles Varicose veins of right lower extremity with ulcer (Chronic) Stage II pressure ulcer of sacral region (Chronic) Diabetes with ulcer of toe (Chronic) Peripheral vascular disease (Chronic) Type II diabetes mellitus (Chronic) Assessment: 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 Diabetes mellitus - uncontrolled. Peripheral vascular disease - status post revascularization 08/07/18. right pat venous ulcer - healed. stage 2 pressure ulcer coccyx. right 5th toe and right second toe ulcers Plan: Gibson's ulcers were evaluated and debrided today. There is mild improvement in his ulcers overall. Xrays showed no osteomyelitis. Will continue to treat his ulcers with Sorbsan and Verenice. Dr. Navas performed a SFA-ant. tib. bypass on his right leg on 08/07/18. Discussed offloading importance and gave him a surgical shoe to wear to offload his heel. Discuss TCC but he refuses at this time. Single layer tubigrip compression advised if he can tolerate this, avoidance of idle standing or sitting with legs hanging down. Encouraged improved control of his blood sugars. Encouraged him to seek consultation with pain management for his pain and gave him a 7 day RX (#56) for tramadol to use for pain as needed on 08/15/18. [place] checked and appropriate. Encouarged to call with increased drainage, redness or fever or chills. Plan on applying Theraskin next week. Will f/u in 1 week.
[2018-08-29 18:34] LABS: M R Staph aureus DNA By PCR Negative (Negative); Probe Check PASS; Specimen Processing Control PASS; Staph aureus DNA By PCR POSITIVE (Negative)
[2018-09-05 14:26] VITALS: BP 155/69; PULSE 87; RESP 16; TEMP 36.6; BMI 27.3
--- NOTE | 2018-09-05 17:57 | PN.PCM_ITS ---
(1) Type 2 diabetes, uncontrolled, with ulcer of heel Status: Chronic Current Visit: Yes Code(s): E11.621 - Type 2 diabetes mellitus with foot ulcer; E11.65 - Type 2 diabetes mellitus with hyperglycemia; L97.409 - Non-pressure chronic ulcer of unspecified heel and midfoot with unspecified severity Comment: right plantar heel and right achilles (2) Peripheral vascular disease Status: Chronic Current Visit: Yes Code(s): I73.9 - Peripheral vascular disease, unspecified (3) Type II diabetes mellitus Status: Chronic Current Visit: Yes Qualifiers: Diabetes mellitus [facility] insulin use: unspecified [facility] insulin use status Diabetes mellitus complication status: with skin complications Diabetes mellitus complication detail: with foot ulcer Qualified Code(s): E11.621 - Type 2 diabetes mellitus with foot ulcer; L97.509 - Non-pressure chronic ulcer of other part of unspecified foot with unspecified severity Code(s): E11.9 - Type 2 diabetes mellitus without complications (4) Varicose veins of right lower extremity with ulcer Status: Chronic Current Visit: Yes Qualifiers: Lower extremity ulceration location: other part of foot Non-pressure ulcer stage: with fat layer exposed Qualified Code(s): I83.015 - Varicose veins of right lower extremity with ulcer other part of foot; L97.512 - Non-pressure chronic ulcer of other part of right foot with fat layer exposed Code(s): I83.019 - Varicose veins of right lower extremity with ulcer of unspecified site; L97.919 - Non-pressure chronic ulcer of unspecified part of right lower leg with unspecified severity (5) Stage II pressure ulcer of sacral region Status: Chronic Current Visit: Yes Code(s): L89.152 - Pressure ulcer of sacral region, stage 2 (6) Diabetes with ulcer of toe Status: Chronic Current Visit: Yes Qualifiers: Diabetes mellitus type: type 2 Laterality: right Non-pressure ulcer stage: with fat layer exposed Qualified Code(s): E11.621 - Type 2 diabetes mellitus with foot ulcer; L97.512 - Non-pressure chronic ulcer of other part of right foot with fat layer exposed Code(s): E11.621 - Type 2 diabetes mellitus with foot ulcer; L97.509 - Non- pressure chronic ulcer of other part of unspecified foot with unspecified severity Type of Wound Date of Service: 09/05/18 Chief Complaint: Nonhealing ulcers right heel History of Wound: This 68-year-old male is here for evaluation of an ulcer of his right heel and his right pat. He states that he has had an ulcer approx. 5 years ago of this same heel and was treated here and was healed after vascular interventions by Dr. Navas. He has noticed increased pain in his heel for the last few months and approx. beginning of May he noted an open wound to his right heel. He was using gauze but this started to irritate his skin and has been using silvadene and adaptic to the wound with tape for the last few weeks. He has not had any treatment with antibiotics for the wound. He is self-referred for treatment here. He does follow with Dr. 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 He has had procedures for his arterial disease in past to both of his lower extremities. From review of records it seems that Dr. Navas planned to do a right SFA-ant. tib bypass but it does not appear that this was done and patient denies having any bypass procedures other than his heart. It sounds like he is trying alternative treatments with supplements and chelation therapy. He also has diabetes and his last A1C several months ago was 7.2% but he stopped glyburide because he felt it was causing blisters of his legs. He does wear diabetic shoes. He has been undergoing chelation treatments by Dr. German in [place]. Dr. German prescribed him oxycodone-APAP 5/325 mg #60 which were filled on 05/22/18 for pain, he has six tablets left from this prescription, and he is asking for pain medication to treat pain from debridement. He reports having xrays done several months ago of his right heel due to pain which did not show any osteomyelitis or acute fractures. He denies fever, chills, erythema or heavy drainage. He reports significant pain and discomfort of his right heel and his entire right leg which no one can explain. Progress of Wound: Gibson is here to follow up for nonhealing ulcers of his right foot. He tolerated the dressings and is wearing tubigrip compression most of the time. He underwent artificial bypass graft of his ant. tibial to femoral artery on 08/07/18. He had an NV postoperatively and is being treated medically. He continues to have severe pain in his ankle/heel. He has had mild improvement of his ulcers. He was approved for Orteqin for adjunctive treatment of his ulcers. He had positive wound cultures and started doxycycline but was only taking it once daily. Anaerobic culture was positive and was not resulted until yesterday. His pressure ulcer of his sacral area is healed this week. He has a venous ulcer on his right second toe. He has been trying to elevate his foot and has been using his surgical shoe to offload as well. Denies fever or chills or increased drainage. - Physical Exam Vital Signs Temp Pulse Resp BP 98 F 87 16 155/69 H 09/05/18 14:26 09/05/18 14:26 09/05/18 14:26 09/05/18 14:26 General: Alert, Oriented x3, Cooperative, No apparent distress HEENT: Atraumatic, Normocephalic Oral: Moist Mucosa Extremities: Edema Skin: Ulcer/ Wound Wound Measurements and Assessment WC - Nurse 1 - General Ulcer Measurement Start: 08/15/18 13:52 Freq: Status: Active Protocol: Activity Type Activity Date Activity User E-Sign Co-Sign Detail Recorded Client Recorded Date Recorded By Document 09/05/18 14:26 [facility] [id number] 09/05/18 14:40 [facility] 09/05/18 14:26 Wound Center Nurse 1 [Ulcer Assessment] #8 COCCYX -Combined with other wound No -Current Size (cm) - Length 0.1 -Current Size (cm) - Width 0.1 -Current Size (cm) - Depth 0.1 -Total Square Cm 0.01 -Photo Taken No -Epithelialization Large 67-100% -Tunneling No -Undermining/Tunneling No -Circular Undermining No -Texture (Shahana-wound Skin Appearance) Assessed -Moisture (Shahana-wound Skin Appearance Assessed ) -Color (Shahana-wound Skin Appearance) Erythema -Temperature (Shahana-wound Skin No Abnormality Appearance) (Pt Warm) -Tenderness on Palpation (Shahana-wound No Skin Appearance) -Ulcer Cleansing Rinsed/ Irrigated with Saline -Foul Odor after Cleansing No -Anesthetic Used 5% Lidocaine Gel #6 Right 2nd Toe -Combined with other wound No -Current Size (cm) - Length 0.7 -Current Size (cm) - Width 0.2 -Current Size (cm) - Depth 0.1 -Total Square Cm 0.14 -Photo Taken No -Epithelialization Small 1-33% -Tunneling No -Undermining/Tunneling No -Circular Undermining No -Exudate Amt None Present -Wound Margin Flat & Intact -Granulation Amt Medium (34-66%) -Granulation Quality [place] -Slough/Fibrin Yes -Necrosis Amt Medium (34-66%) -Necrotic Tissue Type Adherent Slough -Texture (Shahana-wound Skin Appearance) Scarring -Moisture (Shahana-wound Skin Appearance Assessed ) -Color (Shahana-wound Skin Appearance) Assessed Erythema -Temperature (Shahana-wound Skin No Abnormality Appearance) (Pt Warm) -Tenderness on Palpation (Shahana-wound No Skin Appearance) -Ulcer Cleansing Rinsed/ Irrigated with Saline -Foul Odor after Cleansing No -Anesthetic Used 5% Lidocaine Gel #4 RIGHT ACHILLES -Combined with other wound No -Current Size (cm) - Length 0.3 -Current Size (cm) - Width 0.5 -Current Size (cm) - Depth 0.2 -Total Square Cm 0.15 -Photo Taken No -Epithelialization None Present -Tunneling No -Undermining/Tunneling No -Circular Undermining No -Exudate Amt Small -Exudate Type Serosanguineous -Wound Margin Distinct, Outline Attached -Granulation Amt Medium (34-66%) -Granulation Quality [place] -Slough/Fibrin Yes -Necrosis Amt Medium (34-66%) -Necrotic Tissue Type Adherent Slough -Texture (Shahana-wound Skin Appearance) Scarring -Moisture (Shahana-wound Skin Appearance Dry/Scaly ) -Color (Shahana-wound Skin Appearance) Erythema -Temperature (Shahana-wound Skin No Abnormality Appearance) (Pt Warm) -Tenderness on Palpation (Shahana-wound Yes Skin Appearance) -Ulcer Cleansing Rinsed/ Irrigated with Saline -Foul Odor after Cleansing No -Anesthetic Used 5% Lidocaine Gel #2 R Heel -Combined with other wound No -Current Size (cm) - Length 1.7 -Current Size (cm) - Width 1.8 -Current Size (cm) - Depth 0.5 -Total Square Cm 3.06 -Photo Taken No -Epithelialization None Present -Tunneling No -Undermining/Tunneling No -Circular Undermining No -Exudate Amt Medium -Exudate Type Serosanguineous -Wound Margin Distinct, Outline Attached -Granulation Amt Large (67-100%) -Granulation Quality Red -Slough/Fibrin Yes -Necrosis Amt Small (1-33%) -Necrotic Tissue Type Adherent Slough -Texture (Shahana-wound Skin Appearance) Assessed Scarring -Moisture (Shahana-wound Skin Appearance Assessed ) Dry/Scaly -Color (Shahana-wound Skin Appearance) Not Assessed Erythema -Temperature (Shahana-wound Skin No Abnormality Appearance) (Pt Warm) -Tenderness on Palpation (Shahana-wound Yes Skin Appearance) -Ulcer Cleansing Rinsed/ Irrigated with Saline -Foul Odor after Cleansing No -Anesthetic Used 5% Lidocaine Gel [Edema Assessment] -Lower Limb Edema Present Yes -Right Calf (cm) 34.9 -Right Ankle (cm) 22.8 WC - Nurse 2 - General Ulcer CM Notes Start: 08/15/18 13:52 Freq: Status: Active Protocol: Activity Type Activity Date Activity User E-Sign Co-Sign Detail Recorded Client Recorded Date Recorded By Document 09/05/18 15:10 DV [id number] 09/05/18 15:21 DV 09/05/18 15:10 Wound Center Nurse 2 [Procedure/Treatment] #8 COCCYX -Time 15:11 -Correct Patient Yes -Correct Side, Site, Position Yes -Correct Procedure No -Procedure Performed No -Post Debridement Size (cm) - Length 0 -Post Debridement Size (cm) - Width 0 -Post Debridement Size (cm) - Depth 0 -Total Square Cm 0 -Wound/Ulcer Outcome Healed- Epithelialized #6 Right 2nd Toe -Time 15:11 -Correct Patient Yes -Correct Side, Site, Position Yes -Correct Procedure Yes -Procedure Performed Yes -Type of Procedure Debridement -Clinical Debridement Subcutaneous -Post Debridement Size (cm) - Length 0.5 -Post Debridement Size (cm) - Width 0.3 -Post Debridement Size (cm) - Depth 0.1 -Total Square Cm 0.15 -Wound/Ulcer Outcome Not Healed -Ulcer Cleansing Rinsed/ Irrigated with Saline -Foul Odor after Cleansing No -Bioengineered Tissue No -Bleeding Controlled with Pressure -Offloading No -Treatment Response Procedure Not Tolerated Well #4 RIGHT ACHILLES -Time 15:11 -Correct Patient Yes -Correct Side, Site, Position Yes -Correct Procedure Yes -Procedure Performed Yes -Type of Procedure Debridement -Clinical Debridement Subcutaneous -Post Debridement Size (cm) - Length 0.7 -Post Debridement Size (cm) - Width 1.0 -Post Debridement Size (cm) - Depth 0.2 -Total Square Cm 0.70 -Wound/Ulcer Outcome Not Healed -Ulcer Cleansing Rinsed/ Irrigated with Saline -Foul Odor after Cleansing No -Bioengineered Tissue No -Bleeding Controlled with Pressure -Offloading No -Type of Offloading Surgical Shoe -Treatment Response Procedure Not Tolerated Well #2 R Heel -Time 15:12 -Correct Patient Yes -Correct Side, Site, Position Yes -Correct Procedure Yes -Procedure Performed Yes -Type of Procedure Debridement -Clinical Debridement Subcutaneous -Post Debridement Size (cm) - Length 2.0 -Post Debridement Size (cm) - Width 1.8 -Post Debridement Size (cm) - Depth 0.6 -Total Square Cm 3.60 -Wound/Ulcer Outcome Not Healed -Ulcer Cleansing Rinsed/ Irrigated with Saline -Foul Odor after Cleansing No -Bioengineered Tissue No -Bleeding Controlled with Pressure -Offloading Yes -Type of Offloading Surgical Shoe -Treatment Response Procedure Tolerated Well [See Physician Procedure note for Specifics] Pain Scale: 0-10 Numeric [Pain] -Is Patient Pain Free? Yes Psych/Mental Status: Normal Affect, Appropriate Debridement Note Post-Debridement Measurements/Treatment WC - Nurse 2 - General Ulcer CM Notes Start: 08/15/18 13:52 Freq: Status: Active Protocol: Activity Type Activity Date Activity User E-Sign Co-Sign Detail Recorded Client Recorded Date Recorded By Document 08/15/18 14:36 DV [id number] 08/15/18 15:13 DV Document 08/22/18 14:51 DV [id number] 08/22/18 15:30 DV Document 08/29/18 14:54 DV [id number] 08/29/18 15:06 DV Document 09/05/18 15:10 DV [id number] 09/05/18 15:21 DV 08/15/18 08/22/18 08/29/18 14:36 14:51 14:54 Wound Center Nurse 2 #9 R Lateral 4th Toe -Time 14:55 14:57 -Correct Patient Yes Yes -Correct Side, Site, Position Yes Yes -Correct Procedure Yes No -Procedure Performed Yes No -Type of Procedure Debridement -Clinical Debridement Subcutaneous -Post Debridement Size (cm) - Length 0.5 0 -Post Debridement Size (cm) - Width 0.3 0 -Post Debridement Size (cm) - Depth 0.1 0 -Total Square Cm 0.15 0 -Wound/Ulcer Outcome Not Healed Failed Graft -Ulcer Cleansing Rinsed/ Irrigated with Saline -Foul Odor after Cleansing No -Bioengineered Tissue No -Bleeding Controlled with Pressure -Offloading No -Type of Offloading Surgical Shoe -Treatment Response Procedure Tolerated Well #8 COCCYX -Time 14:52 15:02 -Correct Patient Yes Yes -Correct Side, Site, Position Yes Yes -Correct Procedure Yes Yes -Procedure Performed Yes Yes -Type of Procedure Debridement Debridement -Clinical Debridement Subcutaneous Subcutaneous -Post Debridement Size (cm) - Length 0.9 0.2 -Post Debridement Size (cm) - Width 0.7 0.1 -Post Debridement Size (cm) - Depth 0.1 0.1 -Total Square Cm 0.63 0.02 -Wound/Ulcer Outcome Not Healed Not Healed -Ulcer Cleansing Rinsed/ Rinsed/ Irrigated with Irrigated with Saline Saline -Foul Odor after Cleansing No No -Bioengineered Tissue No No -Bleeding Controlled with Pressure Pressure -Offloading No No -Treatment Response Procedure Not Procedure Tolerated Well Tolerated Well #7 Right 5th Toe -Time 15:10 14:52 -Correct Patient Yes Yes -Correct Side, Site, Position Yes Yes -Correct Procedure Yes -Procedure Performed Yes No -Type of Procedure Debridement -Clinical Debridement Subcutaneous -Post Debridement Size (cm) - Length 0.7 0 -Post Debridement Size (cm) - Width 0.5 0 -Post Debridement Size (cm) - Depth 0.1 0 -Total Square Cm 0.35 0 -Wound/Ulcer Outcome Failed Flap Healed- Epithelialized -Ulcer Cleansing Rinsed/ Irrigated with Saline -Foul Odor after Cleansing No -Bioengineered Tissue No -Type of Offloading Surgical Shoe -Treatment Response Procedure Tolerated Well #6 Right 2nd Toe -Time 14:41 14:58 14:56 -Correct Patient Yes Yes Yes -Correct Side, Site, Position Yes Yes Yes -Correct Procedure Yes Yes Yes -Procedure Performed Yes Yes Yes -Type of Procedure Debridement Debridement Debridement -Clinical Debridement Subcutaneous Subcutaneous Subcutaneous -Post Debridement Size (cm) - Length 1.5 1.1 1.1 -Post Debridement Size (cm) - Width 1.0 0.5 0.3 -Post Debridement Size (cm) - Depth 0.1 0.1 0.1 -Total Square Cm 1.50 0.55 0.33 -Wound/Ulcer Outcome Not Healed Not Healed Not Healed -Ulcer Cleansing Rinsed/ Rinsed/ Rinsed/ Irrigated with Irrigated with Irrigated with Saline Saline Saline -Foul Odor after Cleansing No No No -Bioengineered Tissue No No No -Bleeding Controlled with Pressure Pressure Pressure -Offloading Yes No No -Type of Offloading Surgical Shoe -Treatment Response Procedure Procedure Not Procedure Tolerated Well Tolerated Well Tolerated Well #4 RIGHT ACHILLES -Time 14:42 15:20 14:55 -Correct Patient Yes Yes Yes -Correct Side, Site, Position Yes Yes Yes -Correct Procedure Yes Yes Yes -Procedure Performed Yes Yes Yes -Type of Procedure Debridement Debridement Debridement -Clinical Debridement Subcutaneous Subcutaneous Subcutaneous -Post Debridement Size (cm) - Length 0.7 0.8 0.7 -Post Debridement Size (cm) - Width 1.0 0.9 0.8 -Post Debridement Size (cm) - Depth 0.2 0.2 0.2 -Total Square Cm 0.70 0.72 0.56 -Wound/Ulcer Outcome Not Healed Not Healed Not Healed -Ulcer Cleansing Rinsed/ Rinsed/ Irrigated with Irrigated with Saline Saline -Foul Odor after Cleansing No No -Bioengineered Tissue No No -Bleeding Controlled with Pressure Pressure Pressure -Offloading Yes Yes No -Type of Offloading Surgical Shoe -Treatment Response Procedure Procedure Not Procedure Tolerated Well Tolerated Well Tolerated Well #2 R Heel -Time 14:43 15:22 14:55 -Correct Patient Yes Yes Yes -Correct Side, Site, Position Yes Yes Yes -Correct Procedure Yes Yes Yes -Procedure Performed Yes Yes Yes -Type of Procedure Debridement Debridement Debridement -Clinical Debridement Subcutaneous Subcutaneous Subcutaneous -Post Debridement Size (cm) - Length 1.7 2.3 2.0 -Post Debridement Size (cm) - Width 1.5 1.8 1.9 -Post Debridement Size (cm) - Depth 0.3 1.0 0.5 -Total Square Cm 2.55 4.14 3.80 -Wound/Ulcer Outcome Not Healed Not Healed Not Healed -Ulcer Cleansing Rinsed/ Rinsed/ Rinsed/ Irrigated with Irrigated with Irrigated with Saline Saline Saline -Foul Odor after Cleansing No No No -Bioengineered Tissue No No No -Bleeding Controlled with Pressure Pressure Pressure -Offloading Yes Yes -Type of Offloading Surgical Shoe -Treatment Response Procedure Procedure Not Procedure Tolerated Well Tolerated Well Tolerated Well Pain Scale: 0-10 Numeric Is Patient Pain Free? Yes Yes Yes 09/05/18 15:10 Wound Center Nurse 2 #9 R Lateral 4th Toe -Time -Correct Patient -Correct Side, Site, Position -Correct Procedure -Procedure Performed -Type of Procedure -Clinical Debridement -Post Debridement Size (cm) - Length -Post Debridement Size (cm) - Width -Post Debridement Size (cm) - Depth -Total Square Cm -Wound/Ulcer Outcome -Ulcer Cleansing -Foul Odor after Cleansing -Bioengineered Tissue -Bleeding Controlled with -Offloading -Type of Offloading -Treatment Response #8 COCCYX -Time 15:11 -Correct Patient Yes -Correct Side, Site, Position Yes -Correct Procedure No -Procedure Performed No -Type of Procedure -Clinical Debridement -Post Debridement Size (cm) - Length 0 -Post Debridement Size (cm) - Width 0 -Post Debridement Size (cm) - Depth 0 -Total Square Cm 0 -Wound/Ulcer Outcome Healed- Epithelialized -Ulcer Cleansing -Foul Odor after Cleansing -Bioengineered Tissue -Bleeding Controlled with -Offloading -Treatment Response #7 Right 5th Toe -Time -Correct Patient -Correct Side, Site, Position -Correct Procedure -Procedure Performed -Type of Procedure -Clinical Debridement -Post Debridement Size (cm) - Length -Post Debridement Size (cm) - Width -Post Debridement Size (cm) - Depth -Total Square Cm -Wound/Ulcer Outcome -Ulcer Cleansing -Foul Odor after Cleansing -Bioengineered Tissue -Type of Offloading -Treatment Response #6 Right 2nd Toe -Time 15:11 -Correct Patient Yes -Correct Side, Site, Position Yes -Correct Procedure Yes -Procedure Performed Yes -Type of Procedure Debridement -Clinical Debridement Subcutaneous -Post Debridement Size (cm) - Length 0.5 -Post Debridement Size (cm) - Width 0.3 -Post Debridement Size (cm) - Depth 0.1 -Total Square Cm 0.15 -Wound/Ulcer Outcome Not Healed -Ulcer Cleansing Rinsed/ Irrigated with Saline -Foul Odor after Cleansing No -Bioengineered Tissue No -Bleeding Controlled with Pressure -Offloading No -Type of Offloading -Treatment Response Procedure Not Tolerated Well #4 RIGHT ACHILLES -Time 15:11 -Correct Patient Yes -Correct Side, Site, Position Yes -Correct Procedure Yes -Procedure Performed Yes -Type of Procedure Debridement -Clinical Debridement Subcutaneous -Post Debridement Size (cm) - Length 0.7 -Post Debridement Size (cm) - Width 1.0 -Post Debridement Size (cm) - Depth 0.2 -Total Square Cm 0.70 -Wound/Ulcer Outcome Not Healed -Ulcer Cleansing Rinsed/ Irrigated with Saline -Foul Odor after Cleansing No -Bioengineered Tissue No -Bleeding Controlled with Pressure -Offloading No -Type of Offloading Surgical Shoe -Treatment Response Procedure Not Tolerated Well #2 R Heel -Time 15:12 -Correct Patient Yes -Correct Side, Site, Position Yes -Correct Procedure Yes -Procedure Performed Yes -Type of Procedure Debridement -Clinical Debridement Subcutaneous -Post Debridement Size (cm) - Length 2.0 -Post Debridement Size (cm) - Width 1.8 -Post Debridement Size (cm) - Depth 0.6 -Total Square Cm 3.60 -Wound/Ulcer Outcome Not Healed -Ulcer Cleansing Rinsed/ Irrigated with Saline -Foul Odor after Cleansing No -Bioengineered Tissue No -Bleeding Controlled with Pressure -Offloading Yes -Type of Offloading Surgical Shoe -Treatment Response Procedure Tolerated Well Pain Scale: 0-10 Numeric Is Patient Pain Free? Yes Wound debrided: coccyx No debridement was completed today - because it is healed - Additional Wound Wound debrided: right second toe Laterality: Right Type of Debridement: Excisional debridement Anesthesia Used: 4% Lidocaine Solution Depth: Down to and including healthy tissue, in the subcutaneous layer Percentage of wound debrided: 100 Instrument Used: 5mm curette Tissue Removed: yellow slough, devitalized tissue Severity: Fat Layer Exposed Amount of bleeding with debridement: Mild Bleeding Controlled with: Compression and gauze Patient tolerated procedure: Patient tolerated procedure well - Additional Wound Wound debrided: right Achilles Laterality: Right Wound Grade/Stage: Valdez grade 2 Type of Debridement: Excisional debridement Anesthesia Used: 4% Lidocaine Solution, 5% Lidocaine Gel, Cetacaine - 1% lidocaine Depth: Down to and including healthy tissue, in the subcutaneous layer Percentage of wound debrided: 100 Instrument Used: 5mm curette Tissue Removed: yellow slough, devitalized tissue Severity: Fat Layer Exposed Amount of bleeding with debridement: Mild Bleeding Controlled with: Compression and gauze Patient tolerated procedure: Patient tolerated procedure well - Additional Wound Wound debrided: right heel Laterality: Right Wound Grade/Stage: Valdez grade 2 Type of Debridement: Excisional debridement Anesthesia Used: 4% Lidocaine Solution, 5% Lidocaine Gel Depth: Down to and including healthy tissue, in the subcutaneous layer Percentage of wound debrided: 100 Instrument Used: 5mm curette Tissue Removed: yellow slough, devitalized tissue Severity: Fat Layer Exposed Amount of bleeding with debridement: Mild Bleeding Controlled with: Compression and gauze Patient tolerated procedure: Patient tolerated procedure well Assessment/Plan Active Problems Type 2 diabetes, uncontrolled, with ulcer of heel (Chronic) right plantar heel and right achilles Varicose veins of right lower extremity with ulcer (Chronic) Stage II pressure ulcer of sacral region (Chronic) Diabetes with ulcer of toe (Chronic) Peripheral vascular disease (Chronic) Type II diabetes mellitus (Chronic) Assessment: 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 Diabetes mellitus - uncontrolled. Peripheral vascular disease - status post revascularization 08/07/18. right pat venous ulcer - healed. stage 2 pressure ulcer coccyx - healed. right 5th toe and right second toe ulcers Plan: Gibson's ulcers were evaluated and debrided today. There is mild improvement in his ulcers overall. His coccyx is healed. Will continue to treat his ulcers with Sorbsan. Dr. Navas performed a SFA-ant. tib. bypass on his right leg on 08/07/18. Discussed offloading importance and encouraged continuing to use surgical shoe to offload his heel. Discuss TCC but he refuses at this time. Single layer tubigrip compression advised if he can tolerate this, avoidance of idle standing or sitting with legs hanging down. Encouraged improved control of his blood sugars. Encouraged him to seek consultation with pain management for his pain and gave him a 7 day RX (#56) for tramadol to use for pain as needed on 08/15/18. [place]AR[place] checked and appropriate. Encouarged to call with increased drainage, redness or fever or chills. He is tolerating antibiotic. Reviewed administration instructions that he will take them twice daily and also started him on Augmentin for treatment of positive anaerobic culture. Will plan to apply Theraskin next week. Will f/u in 1 week.
--- NOTE | 2018-09-11 09:05 | VDLE_ITS ---
Reason For Study: non healing wound, clots RIGHT LEFT CFV is compressible, spontaneous, phasic, CFV is compressible, spontaneous, phasic, competent and demonstrates normal competent, and demonstrates normal augmentation. augmentation. FV is compressible, spontaneous, phasic, competent and demonstrates normal augmentation. POP V is compressible, spontaneous, phasic, competent and demonstrates normal augmentation. T/P Trunk is compressible. PTV is compressible. RT PerV is compressible. GSV is harvested. SSV is competent. ASV in the calf is incompetent for greater than .5 seconds. ASV measures .34 x .4 cm. Hypoechoic area behind the knee measuring .95 x 2.39 cm. Area is nonvascular. Procedure Exam performed in department. The exam was diagnostic. Patient was scanned in reverse Trendelenburg position during reflux assessment. Interpretation Summary Deep veins of the right lower extremity are patent and compressible segmentally. There is no evidence of right lower extremity deep vein thrombosis. Valvular competence appears intact within the proximal deep venous system on the right . The right greater saphenous vein is absent, having been previously harvested. The right small saphenous vein is patent and competent. The right accessory saphenous vein in the calf is incompetent. A non-vascular, hypoechoic structure is noted in the right popliteal space, measuring 0.95 cm x 2.39 cm. This probably represents a popliteal cyst. Clinical correlation is advised. Ordering Physician: Mckayla Silva Referring Physician: MD Lex Navas Performed By: Carlos Hall RVT
--- NOTE | 2018-09-11 09:07 | ADUL_ITS ---
Reason For Study: R/O Arterial clots Right Velocities Common Femoral Artery, mid = 157.6/15.2 cm./sec. Prox Anast 253.1/23.6 cm/s. Prox Graft 102.8/22.4 cm/s. Mid Graft 135.5/20.6 cm/s. Distal Graft 101.5/19.4 cm/s. Distal Anast 116.1/15.7 cm/s. Outflow 116.1/28.5 cm/s. Interpretation Summary The right lower extremity arterial bypass graft appears widely patent, without evidence of significant stenosis or thrombosis. Proximal and distal anastamoses also appear widely patent. Pulsatile arterial flow is noted at all levels imaged. Ordering Physician: Mckayla Silva Referring Physician: MD Lex Navas Performed By: Carlos Hall RVT
[2018-09-12 14:16] VITALS: BP 122/79; PULSE 81; RESP 18; TEMP 36.9; BMI 27.3
--- NOTE | 2018-09-12 18:15 | PCM.WC.PN ---
(1) Type 2 diabetes, uncontrolled, with ulcer of heel Status: Chronic Current Visit: Yes Code(s): E11.621 - Type 2 diabetes mellitus with foot ulcer; E11.65 - Type 2 diabetes mellitus with hyperglycemia; L97.409 - Non-pressure chronic ulcer of unspecified heel and midfoot with unspecified severity Comment: right plantar heel and right achilles (2) Peripheral vascular disease Status: Chronic Current Visit: Yes Code(s): I73.9 - Peripheral vascular disease, unspecified (3) Type II diabetes mellitus Status: Chronic Current Visit: Yes Qualifiers: Diabetes mellitus penitentiary insulin use: unspecified penitentiary insulin use status Diabetes mellitus complication status: with skin complications Diabetes mellitus complication detail: with foot ulcer Qualified Code(s): E11.621 - Type 2 diabetes mellitus with foot ulcer; L97.509 - Non-pressure chronic ulcer of other part of unspecified foot with unspecified severity Code(s): E11.9 - Type 2 diabetes mellitus without complications (4) Varicose veins of right lower extremity with ulcer Status: Chronic Current Visit: Yes Qualifiers: Lower extremity ulceration location: other part of foot Non-pressure ulcer stage: with fat layer exposed Qualified Code(s): I83.015 - Varicose veins of right lower extremity with ulcer other part of foot; L97.512 - Non-pressure chronic ulcer of other part of right foot with fat layer exposed Code(s): I83.019 - Varicose veins of right lower extremity with ulcer of unspecified site; L97.919 - Non-pressure chronic ulcer of unspecified part of right lower leg with unspecified severity (5) Stage II pressure ulcer of sacral region Status: Chronic Current Visit: Yes Code(s): L89.152 - Pressure ulcer of sacral region, stage 2 (6) Diabetes with ulcer of toe Status: Chronic Current Visit: Yes Qualifiers: Diabetes mellitus type: type 2 Laterality: right Non-pressure ulcer stage: with fat layer exposed Qualified Code(s): E11.621 - Type 2 diabetes mellitus with foot ulcer; L97.512 - Non-pressure chronic ulcer of other part of right foot with fat layer exposed Code(s): E11.621 - Type 2 diabetes mellitus with foot ulcer; L97.509 - Non-pressure chronic ulcer of other part of unspecified foot with unspecified severity Type of Wound Date of Service: 09/12/18 Chief Complaint: Nonhealing ulcers right heel History of Wound: This 68-year-old male is here for evaluation of an ulcer of his right heel and his right pat. He states that he has had an ulcer approx. 5 years ago of this same heel and was treated here and was healed after vascular interventions by Dr. Navas. He has noticed increased pain in his heel for the last few months and approx. beginning of May he noted an open wound to his right heel. He was using gauze but this started to irritate his skin and has been using silvadene and adaptic to the wound with tape for the last few weeks. He has not had any treatment with antibiotics for the wound. He is self-referred for treatment here. He does follow with Dr. 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 He has had procedures for his arterial disease in past to both of his lower extremities. From review of records it seems that Dr. Navas planned to do a right SFA-ant. tib bypass but it does not appear that this was done and patient denies having any bypass procedures other than his heart. It sounds like he is trying alternative treatments with supplements and chelation therapy. He also has diabetes and his last A1C several months ago was 7.2% but he stopped glyburide because he felt it was causing blisters of his legs. He does wear diabetic shoes. He has been undergoing chelation treatments by Dr. German in [place]. Dr. German prescribed him oxycodone-APAP 5/325 mg #60 which were filled on 05/22/18 for pain, he has six tablets left from this prescription, and he is asking for pain medication to treat pain from debridement. He reports having xrays done several months ago of his right heel due to pain which did not show any osteomyelitis or acute fractures. He denies fever, chills, erythema or heavy drainage. He reports significant pain and discomfort of his right heel and his entire right leg which no one can explain. Progress of Wound: Gibson is here to follow up for nonhealing ulcers of his right foot. He tolerated the dressings and is wearing tubigrip compression most of the time. He underwent artificial bypass graft of his ant. tibial to femoral artery on 08/07/18. He had an TX postoperatively and is being treated medically. He continues to have severe pain in his ankle/heel. He has had mild improvement of his ulcers. He was approved for [email or web address] for adjunctive treatment of his ulcers but has had infection so it has not been applied yet. He has been taking his antibiotics twice dialy. He went to the ER on Saturday due to blisters and erythema on his pat and was given a dose of IV vancomycin. His erythema and blisters have improved. He has a venous ulcer on his right second toe. He has been trying to elevate his foot and has been using his surgical shoe to offload as well. Denies fever or chills or increased drainage. - Physical Exam Vital Signs Temp Pulse Resp BP 98.4 F 81 18 122/79 H 09/12/18 14:16 09/12/18 14:16 09/12/18 14:16 09/12/18 14:16 General: Alert, Oriented x3, Cooperative, No apparent distress HEENT: Atraumatic, Normocephalic Oral: Moist Mucosa Extremities: Edema Skin: Ulcer/ Wound Wound Measurements and Assessment WC - Nurse 1 - General Ulcer Measurement Start: 08/15/18 13:52 Freq: Status: Active Protocol: Activity Type Activity Date Activity User E-Sign Co-Sign Detail Recorded Client Recorded Date Recorded By Document 09/12/18 14:16 AN [id number] 09/12/18 14:26 AN 09/12/18 14:16 Wound Center Nurse 1 [Ulcer Assessment] #6 Right 2nd Toe -Current Size (cm) - Length 0.1 -Current Size (cm) - Width 0.1 -Current Size (cm) - Depth 0.1 -Total Square Cm 0.01 -Classification - Thickness Unclassifiable (Eschar Covered ) -Exudate Amt None Present -Wound Margin Flat & Intact -Granulation Amt None Present (0 %) -Necrosis Amt Large (67-100%) -Necrotic Tissue Type Eschar -Structure Exposed None/Limited to Skin Breakdown -Texture (Shahana-wound Skin Appearance) Assessed -Moisture (Shahana-wound Skin Appearance Assessed ) -Color (Shahana-wound Skin Appearance) Assessed -Temperature (Shahana-wound Skin No Abnormality Appearance) (Pt Warm) -Tenderness on Palpation (Shahana-wound No Skin Appearance) -Ulcer Cleansing Rinsed/ Irrigated with Saline #4 RIGHT ACHILLES -Current Size (cm) - Length 0.3 -Current Size (cm) - Width 0.3 -Current Size (cm) - Depth 0.2 -Total Square Cm 0.09 -Photo Taken No -Tunneling No -Undermining/Tunneling No -Classification - Thickness Full Thickness without Exposed Support Structure -Exudate Amt Small -Exudate Type Serous -Wound Margin Thickened -Granulation Amt Medium (34-66%) -Granulation Quality Red -Slough/Fibrin Yes -Necrosis Amt Medium (34-66%) -Necrotic Tissue Type Adherent Slough -Structure Exposed None/Limited to Skin Breakdown -Texture (Shahana-wound Skin Appearance) Assessed Callus -Moisture (Shahana-wound Skin Appearance Assessed ) -Color (Shahana-wound Skin Appearance) Assessed -Temperature (Shahana-wound Skin No Abnormality Appearance) (Pt Warm) -Tenderness on Palpation (Shahana-wound Yes Skin Appearance) -Ulcer Cleansing Rinsed/ Irrigated with Saline -Foul Odor after Cleansing No -Anesthetic Used 4% Lidocaine Solution #2 R Heel -Current Size (cm) - Length 1.5 -Current Size (cm) - Width 1.1 -Current Size (cm) - Depth 0.2 -Total Square Cm 1.65 -Exudate Amt Small -Exudate Type Serous -Wound Margin Thickened -Granulation Amt Medium (34-66%) -Granulation Quality Red -Slough/Fibrin Yes -Necrosis Amt Medium (34-66%) -Necrotic Tissue Type Adherent Slough -Structure Exposed None/Limited to Skin Breakdown -Texture (Shahana-wound Skin Appearance) Assessed Callus Localized Edema -Moisture (Shahana-wound Skin Appearance Assessed ) -Color (Shahana-wound Skin Appearance) Assessed Ecchymosis -Tenderness on Palpation (Shahana-wound Yes Skin Appearance) -Ulcer Cleansing Rinsed/ Irrigated with Saline -Foul Odor after Cleansing No -Anesthetic Used 4% Lidocaine Solution [Edema Assessment] -Right Calf (cm) 35.5 -Right Ankle (cm) 22.9 WC - Nurse 2 - General Ulcer CM Notes Start: 08/15/18 13:52 Freq: Status: Active Protocol: Activity Type Activity Date Activity User E-Sign Co-Sign Detail Recorded Client Recorded Date Recorded By Document 09/12/18 15:21 DV [id number] 09/12/18 15:36 DV 09/12/18 15:21 Wound Center Nurse 2 [Procedure/Treatment] #6 Right 2nd Toe -Time 15:21 -Correct Patient Yes -Correct Side, Site, Position Yes -Correct Procedure Yes -Procedure Performed Yes -Type of Procedure Debridement -Clinical Debridement Subcutaneous -Post Debridement Size (cm) - Length 0.8 -Post Debridement Size (cm) - Width 0.4 -Post Debridement Size (cm) - Depth 0.1 -Total Square Cm 0.32 -Wound/Ulcer Outcome Not Healed -Ulcer Cleansing Rinsed/ Irrigated with Saline -Foul Odor after Cleansing No -Bioengineered Tissue No -Bleeding Controlled with Pressure -Offloading Yes -Treatment Response Procedure Not Tolerated Well #4 RIGHT ACHILLES -Time 15:22 -Correct Patient Yes -Correct Side, Site, Position Yes -Correct Procedure Yes -Procedure Performed Yes -Type of Procedure Debridement -Clinical Debridement Subcutaneous -Post Debridement Size (cm) - Length 0.7 -Post Debridement Size (cm) - Width 0.2 -Post Debridement Size (cm) - Depth 0.2 -Total Square Cm 0.14 -Wound/Ulcer Outcome Not Healed -Ulcer Cleansing Rinsed/ Irrigated with Saline -Foul Odor after Cleansing No -Bioengineered Tissue No -Bleeding Controlled with Pressure -Offloading Yes -Treatment Response Procedure Not Tolerated Well #2 R Heel -Time 15:22 -Correct Patient Yes -Correct Side, Site, Position Yes -Correct Procedure Yes -Procedure Performed Yes -Type of Procedure Debridement -Clinical Debridement Subcutaneous -Post Debridement Size (cm) - Length 1.5 -Post Debridement Size (cm) - Width 1.5 -Post Debridement Size (cm) - Depth 0.3 -Total Square Cm 2.25 -Wound/Ulcer Outcome Not Healed -Ulcer Cleansing Rinsed/ Irrigated with Saline -Foul Odor after Cleansing No -Bioengineered Tissue No -Bleeding Controlled with Pressure -Offloading Yes -Treatment Response Procedure Tolerated Well [See Physician Procedure note for Specifics] Pain Scale: 0-10 Numeric [Pain] -Is Patient Pain Free? Yes Psych/Mental Status: Normal Affect, Appropriate Debridement Note Post-Debridement Measurements/Treatment WC - Nurse 2 - General Ulcer CM Notes Start: 08/15/18 13:52 Freq: Status: Active Protocol: Activity Type Activity Date Activity User E-Sign Co-Sign Detail Recorded Client Recorded Date Recorded By Document 08/15/18 14:36 DV [id number] 08/15/18 15:13 DV Document 08/22/18 14:51 DV [id number] 08/22/18 15:30 DV Document 08/29/18 14:54 DV [id number] 08/29/18 15:06 DV Document 09/05/18 15:10 DV [id number] 09/05/18 15:21 DV Document 09/12/18 15:21 DV [id number] 09/12/18 15:36 DV 08/15/18 08/22/18 08/29/18 14:36 14:51 14:54 Wound Center Nurse 2 #9 R Lateral 4th Toe -Time 14:55 14:57 -Correct Patient Yes Yes -Correct Side, Site, Position Yes Yes -Correct Procedure Yes No -Procedure Performed Yes No -Type of Procedure Debridement -Clinical Debridement Subcutaneous -Post Debridement Size (cm) - Length 0.5 0 -Post Debridement Size (cm) - Width 0.3 0 -Post Debridement Size (cm) - Depth 0.1 0 -Total Square Cm 0.15 0 -Wound/Ulcer Outcome Not Healed Failed Graft -Ulcer Cleansing Rinsed/ Irrigated with Saline -Foul Odor after Cleansing No -Bioengineered Tissue No -Bleeding Controlled with Pressure -Offloading No -Type of Offloading Surgical Shoe -Treatment Response Procedure Tolerated Well #8 COCCYX -Time 14:52 15:02 -Correct Patient Yes Yes -Correct Side, Site, Position Yes Yes -Correct Procedure Yes Yes -Procedure Performed Yes Yes -Type of Procedure Debridement Debridement -Clinical Debridement Subcutaneous Subcutaneous -Post Debridement Size (cm) - Length 0.9 0.2 -Post Debridement Size (cm) - Width 0.7 0.1 -Post Debridement Size (cm) - Depth 0.1 0.1 -Total Square Cm 0.63 0.02 -Wound/Ulcer Outcome Not Healed Not Healed -Ulcer Cleansing Rinsed/ Rinsed/ Irrigated with Irrigated with Saline Saline -Foul Odor after Cleansing No No -Bioengineered Tissue No No -Bleeding Controlled with Pressure Pressure -Offloading No No -Treatment Response Procedure Not Procedure Tolerated Well Tolerated Well #7 Right 5th Toe -Time 15:10 14:52 -Correct Patient Yes Yes -Correct Side, Site, Position Yes Yes -Correct Procedure Yes -Procedure Performed Yes No -Type of Procedure Debridement -Clinical Debridement Subcutaneous -Post Debridement Size (cm) - Length 0.7 0 -Post Debridement Size (cm) - Width 0.5 0 -Post Debridement Size (cm) - Depth 0.1 0 -Total Square Cm 0.35 0 -Wound/Ulcer Outcome Failed Flap Healed- Epithelialized -Ulcer Cleansing Rinsed/ Irrigated with Saline -Foul Odor after Cleansing No -Bioengineered Tissue No -Type of Offloading Surgical Shoe -Treatment Response Procedure Tolerated Well #6 Right 2nd Toe -Time 14:41 14:58 14:56 -Correct Patient Yes Yes Yes -Correct Side, Site, Position Yes Yes Yes -Correct Procedure Yes Yes Yes -Procedure Performed Yes Yes Yes -Type of Procedure Debridement Debridement Debridement -Clinical Debridement Subcutaneous Subcutaneous Subcutaneous -Post Debridement Size (cm) - Length 1.5 1.1 1.1 -Post Debridement Size (cm) - Width 1.0 0.5 0.3 -Post Debridement Size (cm) - Depth 0.1 0.1 0.1 -Total Square Cm 1.50 0.55 0.33 -Wound/Ulcer Outcome Not Healed Not Healed Not Healed -Ulcer Cleansing Rinsed/ Rinsed/ Rinsed/ Irrigated with Irrigated with Irrigated with Saline Saline Saline -Foul Odor after Cleansing No No No -Bioengineered Tissue No No No -Bleeding Controlled with Pressure Pressure Pressure -Offloading Yes No No -Type of Offloading Surgical Shoe -Treatment Response Procedure Procedure Not Procedure Tolerated Well Tolerated Well Tolerated Well #4 RIGHT ACHILLES -Time 14:42 15:20 14:55 -Correct Patient Yes Yes Yes -Correct Side, Site, Position Yes Yes Yes -Correct Procedure Yes Yes Yes -Procedure Performed Yes Yes Yes -Type of Procedure Debridement Debridement Debridement -Clinical Debridement Subcutaneous Subcutaneous Subcutaneous -Post Debridement Size (cm) - Length 0.7 0.8 0.7 -Post Debridement Size (cm) - Width 1.0 0.9 0.8 -Post Debridement Size (cm) - Depth 0.2 0.2 0.2 -Total Square Cm 0.70 0.72 0.56 -Wound/Ulcer Outcome Not Healed Not Healed Not Healed -Ulcer Cleansing Rinsed/ Rinsed/ Irrigated with Irrigated with Saline Saline -Foul Odor after Cleansing No No -Bioengineered Tissue No No -Bleeding Controlled with Pressure Pressure Pressure -Offloading Yes Yes No -Type of Offloading Surgical Shoe -Treatment Response Procedure Procedure Not Procedure Tolerated Well Tolerated Well Tolerated Well #2 R Heel -Time 14:43 15:22 14:55 -Correct Patient Yes Yes Yes -Correct Side, Site, Position Yes Yes Yes -Correct Procedure Yes Yes Yes -Procedure Performed Yes Yes Yes -Type of Procedure Debridement Debridement Debridement -Clinical Debridement Subcutaneous Subcutaneous Subcutaneous -Post Debridement Size (cm) - Length 1.7 2.3 2.0 -Post Debridement Size (cm) - Width 1.5 1.8 1.9 -Post Debridement Size (cm) - Depth 0.3 1.0 0.5 -Total Square Cm 2.55 4.14 3.80 -Wound/Ulcer Outcome Not Healed Not Healed Not Healed -Ulcer Cleansing Rinsed/ Rinsed/ Rinsed/ Irrigated with Irrigated with Irrigated with Saline Saline Saline -Foul Odor after Cleansing No No No -Bioengineered Tissue No No No -Bleeding Controlled with Pressure Pressure Pressure -Offloading Yes Yes -Type of Offloading Surgical Shoe -Treatment Response Procedure Procedure Not Procedure Tolerated Well Tolerated Well Tolerated Well Pain Scale: 0-10 Numeric Is Patient Pain Free? Yes Yes Yes 09/05/18 09/12/18 15:10 15:21 Wound Center Nurse 2 #9 R Lateral 4th Toe -Time -Correct Patient -Correct Side, Site, Position -Correct Procedure -Procedure Performed -Type of Procedure -Clinical Debridement -Post Debridement Size (cm) - Length -Post Debridement Size (cm) - Width -Post Debridement Size (cm) - Depth -Total Square Cm -Wound/Ulcer Outcome -Ulcer Cleansing -Foul Odor after Cleansing -Bioengineered Tissue -Bleeding Controlled with -Offloading -Type of Offloading -Treatment Response #8 COCCYX -Time 15:11 -Correct Patient Yes -Correct Side, Site, Position Yes -Correct Procedure No -Procedure Performed No -Type of Procedure -Clinical Debridement -Post Debridement Size (cm) - Length 0 -Post Debridement Size (cm) - Width 0 -Post Debridement Size (cm) - Depth 0 -Total Square Cm 0 -Wound/Ulcer Outcome Healed- Epithelialized -Ulcer Cleansing -Foul Odor after Cleansing -Bioengineered Tissue -Bleeding Controlled with -Offloading -Treatment Response #7 Right 5th Toe -Time -Correct Patient -Correct Side, Site, Position -Correct Procedure -Procedure Performed -Type of Procedure -Clinical Debridement -Post Debridement Size (cm) - Length -Post Debridement Size (cm) - Width -Post Debridement Size (cm) - Depth -Total Square Cm -Wound/Ulcer Outcome -Ulcer Cleansing -Foul Odor after Cleansing -Bioengineered Tissue -Type of Offloading -Treatment Response #6 Right 2nd Toe -Time 15:11 15:21 -Correct Patient Yes Yes -Correct Side, Site, Position Yes Yes -Correct Procedure Yes Yes -Procedure Performed Yes Yes -Type of Procedure Debridement Debridement -Clinical Debridement Subcutaneous Subcutaneous -Post Debridement Size (cm) - Length 0.5 0.8 -Post Debridement Size (cm) - Width 0.3 0.4 -Post Debridement Size (cm) - Depth 0.1 0.1 -Total Square Cm 0.15 0.32 -Wound/Ulcer Outcome Not Healed Not Healed -Ulcer Cleansing Rinsed/ Rinsed/ Irrigated with Irrigated with Saline Saline -Foul Odor after Cleansing No No -Bioengineered Tissue No No -Bleeding Controlled with Pressure Pressure -Offloading No Yes -Type of Offloading -Treatment Response Procedure Not Procedure Not Tolerated Well Tolerated Well #4 RIGHT ACHILLES -Time 15:11 15:22 -Correct Patient Yes Yes -Correct Side, Site, Position Yes Yes -Correct Procedure Yes Yes -Procedure Performed Yes Yes -Type of Procedure Debridement Debridement -Clinical Debridement Subcutaneous Subcutaneous -Post Debridement Size (cm) - Length 0.7 0.7 -Post Debridement Size (cm) - Width 1.0 0.2 -Post Debridement Size (cm) - Depth 0.2 0.2 -Total Square Cm 0.70 0.14 -Wound/Ulcer Outcome Not Healed Not Healed -Ulcer Cleansing Rinsed/ Rinsed/ Irrigated with Irrigated with Saline Saline -Foul Odor after Cleansing No No -Bioengineered Tissue No No -Bleeding Controlled with Pressure Pressure -Offloading No Yes -Type of Offloading Surgical Shoe -Treatment Response Procedure Not Procedure Not Tolerated Well Tolerated Well #2 R Heel -Time 15:12 15:22 -Correct Patient Yes Yes -Correct Side, Site, Position Yes Yes -Correct Procedure Yes Yes -Procedure Performed Yes Yes -Type of Procedure Debridement Debridement -Clinical Debridement Subcutaneous Subcutaneous -Post Debridement Size (cm) - Length 2.0 1.5 -Post Debridement Size (cm) - Width 1.8 1.5 -Post Debridement Size (cm) - Depth 0.6 0.3 -Total Square Cm 3.60 2.25 -Wound/Ulcer Outcome Not Healed Not Healed -Ulcer Cleansing Rinsed/ Rinsed/ Irrigated with Irrigated with Saline Saline -Foul Odor after Cleansing No No -Bioengineered Tissue No No -Bleeding Controlled with Pressure Pressure -Offloading Yes Yes -Type of Offloading Surgical Shoe -Treatment Response Procedure Procedure Tolerated Well Tolerated Well Pain Scale: 0-10 Numeric Is Patient Pain Free? Yes Yes Wound debrided: right heel Laterality: Right Wound Grade/Stage: Valdez grade 2 Anesthesia Used: 4% Lidocaine Solution, 5% Lidocaine Gel, Cetacaine - 1% Depth: Down to and including healthy tissue, in the subcutaneous layer Percentage of wound debrided: 100 Instrument Used: 5mm curette Tissue Removed: yellow slough, devitalized tissue Severity: Fat Layer Exposed Amount of bleeding with debridement: Mild Bleeding Controlled with: Compression and gauze Patient tolerated procedure well - Additional Wound Wound debrided: right achilles Laterality: Right Wound Grade/Stage: Valdez grade 2 Type of Debridement: Excisional debridement Anesthesia Used: 4% Lidocaine Solution, Cetacaine - 1% Depth: Down to and including healthy tissue, in the subcutaneous layer Percentage of wound debrided: 100 Instrument Used: 5mm curette Tissue Removed: yellow slough, devitalized tissue Severity: Fat Layer Exposed Amount of bleeding with debridement: Mild Bleeding Controlled with: Compression and gauze Patient tolerated procedure: Patient tolerated procedure well - Additional Wound Wound debrided: right second toe Laterality: Right Type of Debridement: Excisional debridement Anesthesia Used: 4% Lidocaine Solution, 5% Lidocaine Gel Depth: Down to and including healthy tissue, in the subcutaneous layer Percentage of wound debrided: 100 Instrument Used: 5mm curette Tissue Removed: yellow slough, devitalized tissue Severity: Fat Layer Exposed Amount of bleeding with debridement: Mild Bleeding Controlled with: Compression and gauze Patient tolerated procedure: Patient tolerated procedure well Assessment/Plan Active Problems Type 2 diabetes, uncontrolled, with ulcer of heel (Chronic) right plantar heel and right achilles Varicose veins of right lower extremity with ulcer (Chronic) Stage II pressure ulcer of sacral region (Chronic) Diabetes with ulcer of toe (Chronic) Peripheral vascular disease (Chronic) Type II diabetes mellitus (Chronic) Assessment: 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 Diabetes mellitus - uncontrolled. Peripheral vascular disease - status post revascularization 08/07/18. right pat venous ulcer - healed. stage 2 pressure ulcer coccyx - healed. right 5th toe and right second toe ulcers Plan: Gibson's ulcers were evaluated and debrided today. There is mild improvement in his ulcers overall. Will continue to treat his ulcers with Aquacel Extra. Dr. Navas performed a SFA-ant. tib. bypass on his right leg on 08/07/18. Discussed offloading importance and encouraged continuing to use surgical shoe to offload his heel. Discuss TCC but he refuses at this time. Single layer tubigrip compression advised if he can tolerate this, avoidance of idle standing or sitting with legs hanging down. Encouraged improved control of his blood sugars. Encouraged him to seek consultation with pain management for his pain and gave him a 7 day RX (#56) for tramadol to use for pain as needed on 09/12/18. [place] checked and appropriate. Encouarged to call with increased drainage, redness or fever or chills. Will plan to apply Theraskin next week. Will f/u in 1 week.
== END 2018-09-14 23:59 ==
LOC: WC 14:00
PROVIDERS: Family Provider Family Medicine; PCP Family Medicine; Visit Provider Family Medicine
DX: E11.621 Type 2 diabetes mellitus with foot ulcer (principal); E11.622 Type 2 diabetes mellitus with other skin ulcer; E11.65 Type 2 diabetes mellitus with hyperglycemia; E11.51 Type 2 diabetes mellitus with diabetic peripheral angiopathy without gangrene; L97.412 Non-pressure chronic ulcer of right heel and midfoot with fat layer exposed; L97.312 Non-pressure chronic ulcer of right ankle with fat layer exposed; L97.812 Non-pressure chronic ulcer of other part of right lower leg with fat layer exposed; I83.018 Varicose veins of right lower extremity with ulcer other part of lower leg; L97.512 Non-pressure chronic ulcer of other part of right foot with fat layer exposed; E11.40 Type 2 diabetes mellitus with diabetic neuropathy, unspecified; L89.152 Pressure ulcer of sacral region, stage 2; I25.2 Old myocardial infarction
CPT/HCPCS: 11042; 87070; 87075; 87077; 87186; 87205; 87640; 93926; 93971

== ENCOUNTER 2018-10-03 14:00 | Outpatient (RCR) | payer MEDICARE, OTHER, SELFPAY ==
[2018-09-15 01:02] VITALS: BP 122/79; PULSE 81; RESP 18; TEMP 36.9
[2018-09-16 16:54] VITALS: BMI 24.9
[2018-09-19 14:00] VITALS: BP 164/73; PULSE 95; RESP 16; TEMP 36.9; BMI 24.9
--- NOTE | 2018-09-19 19:05 | PN.PCM_ITS ---
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 Current Visit: Yes Qualifiers: Lower extremity ulceration location: other part of foot Non-pressure ulcer stage: with fat layer exposed Qualified Code(s): I83.015 - Varicose veins of right lower extremity with ulcer other part of foot; L97.512 - Non-pressure chronic ulcer of other part of right foot with fat layer exposed Code(s): I83.019 - Varicose veins of right lower extremity with ulcer of unspecified site; L97.919 - Non-pressure chronic ulcer of unspecified part of right lower leg with unspecified severity (3) Diabetes with ulcer of toe Status: Chronic Current Visit: Yes Qualifiers: Diabetes mellitus type: type 2 Laterality: right Non-pressure ulcer stage: with fat layer exposed Qualified Code(s): E11.621 - Type 2 diabetes mellitus with foot ulcer; L97.512 - Non-pressure chronic ulcer of other part of right foot with fat layer exposed Code(s): E11.621 - Type 2 diabetes mellitus with foot ulcer; L97.509 - Non- pressure chronic ulcer of other part of unspecified foot with unspecified severity (4) Peripheral vascular disease Status: Chronic Current Visit: Yes Code(s): I73.9 - Peripheral vascular disease, unspecified (5) Type II diabetes mellitus Status: Chronic Current Visit: Yes Qualifiers: Diabetes mellitus [facility] insulin use: without termite inspector use Diabetes mellitus complication status: with skin complications Diabetes mellitus complication detail: with foot ulcer Qualified Code(s): E11.621 - Type 2 diabetes mellitus with foot ulcer; L97.509 - Non-pressure chronic ulcer of other part of unspecified foot with unspecified severity Code(s): E11.9 - Type 2 diabetes mellitus without complications Type of Wound Date of Service: 09/19/18 Chief Complaint: Nonhealing ulcers right heel and toes History of Wound: This 68-year-old male is here for evaluation of an ulcer of his right heel and his right pat. He states that he has had an ulcer approx. 5 years ago of this same heel and was treated here and was healed after vascular interventions by Dr. Navas. He has noticed increased pain in his heel for the last few months and approx. beginning of May he noted an open wound to his right heel. He was using gauze but this started to irritate his skin and has been using silvadene and adaptic to the wound with tape for the last few weeks. He has not had any treatment with antibiotics for the wound. He is self-referred for treatment here. He does follow with Dr. 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 He has had procedures for his arterial disease in past to both of his lower extremities. From review of records it seems that Dr. Navas planned to do a right SFA-ant. tib bypass but it does not appear that this was done and patient denies having any bypass procedures other than his heart. It sounds like he is trying alternative treatments with supplements and chelation therapy. He also has diabetes and his last A1C several months ago was 7.2% but he stopped glyburide because he felt it was causing blisters of his legs. He does wear diab etic shoes. He has been undergoing chelation treatments by Dr. German in [place]. Dr. German prescribed him oxycodone-APAP 5/325 mg #60 which were filled on 05/22/18 for pain, he has six tablets left from this prescription, and he is asking for pain medication to treat pain from debridement. He reports having xrays done several months ago of his right heel due to pain which did not show any osteomyelitis or acute fractures. He denies fever, chills, erythema or heavy drainage. He reports significant pain and discomfort of his right heel and his entire right leg which no one can explain. Progress of Wound: Gibson is here to follow up for nonhealing ulcers of his right foot. He tolerated the dressings and is wearing tubigrip compression most of the time. He underwent artificial bypass graft of his ant. tibial to femoral artery on 08/07/18. He had an NV postoperatively and is being treated medically. He continues to have severe pain in his ankle/heel. He has had mild improvement of his ulcers. He was approved for [employer] and this will be applied for the first time today. He has been taking his antibiotics twice daily and comepleted doxycycline 2 days ago but still has several days left of Augmentin. He has a venous ulcer on his right second toe and great toe and now third toe. He has been trying to elevate his foot and has been using his surgical shoe to offload as well. Denies fever or chills or increased drainage. - Physical Exam Vital Signs Temp Pulse Resp BP 98.4 F 95 16 164/73 H 09/19/18 14:00 09/19/18 14:00 09/19/18 14:00 09/19/18 14:00 General: Alert, Oriented x3, Cooperative, No apparent distress HEENT: Atraumatic, Normocephalic Oral: Moist Mucosa Extremities: Edema Skin: Ulcer/ Wound Wound Measurements and Assessment WC - Nurse 1 - General Ulcer Measurement Start: 09/19/18 14:00 Freq: Status: Active Protocol: Activity Type Activity Date Activity User E-Sign Co-Sign Detail Recorded Client Recorded Date Recorded By Document 09/19/18 14:00 [place] [id number] 09/19/18 14:14 [place] 09/19/18 14:00 Wound Center Nurse 1 [Ulcer Assessment] #10- RT GR TOE DORSAL -Combined with other wound No -Current Size (cm) - Length 0.5 -Current Size (cm) - Width 1 -Current Size (cm) - Depth 0.1 -Total Square Cm 0.5 -Date of Last Picture (Recall this 09/19/18 field) -Photo Taken Yes -Epithelialization None Present -Tunneling No -Undermining/Tunneling No -Circular Undermining No -Exudate Amt Small -Exudate Type Serosanguineous -Wound Margin Distinct, Outline Attached -Granulation Amt Small (1-33%) -Granulation Quality [place] -Slough/Fibrin Yes -Necrosis Amt Large (67-100%) -Necrotic Tissue Type Adherent Slough -Texture (Shahana-wound Skin Appearance) Assessed Scarring -Moisture (Shahana-wound Skin Appearance Assessed ) -Color (Shahana-wound Skin Appearance) Assessed Erythema -Temperature (Shahana-wound Skin No Abnormality Appearance) (Pt Warm) -Tenderness on Palpation (Shahana-wound No Skin Appearance) -Ulcer Cleansing Rinsed/ Irrigated with Saline -Foul Odor after Cleansing No -Anesthetic Used 4% Lidocaine Solution #6 Right 2nd Toe -Combined with other wound No -Current Size (cm) - Length 0.1 -Current Size (cm) - Width 0.1 -Current Size (cm) - Depth 0.1 -Total Square Cm 0.01 -Epithelialization Large 67-100% -Tunneling No -Undermining/Tunneling No -Circular Undermining No -Exudate Amt None Present -Temperature (Shahana-wound Skin No Abnormality Appearance) (Pt Warm) -Tenderness on Palpation (Shahana-wound No Skin Appearance) -Ulcer Cleansing Rinsed/ Irrigated with Saline -Foul Odor after Cleansing No -Anesthetic Used 4% Lidocaine Solution #4 RIGHT ACHILLES -Combined with other wound No -Current Size (cm) - Length 0.5 -Current Size (cm) - Width 0.8 -Current Size (cm) - Depth 0.2 -Total Square Cm 0.40 -Photo Taken No -Epithelialization None Present -Tunneling No -Undermining/Tunneling No -Circular Undermining No -Exudate Amt Small -Exudate Type Serosanguineous -Wound Margin Distinct, Outline Attached -Granulation Amt Small (1-33%) -Granulation Quality [place] -Slough/Fibrin Yes -Necrosis Amt Large (67-100%) -Necrotic Tissue Type Adherent Slough -Texture (Shahana-wound Skin Appearance) Assessed Scarring -Moisture (Shahana-wound Skin Appearance Assessed ) Dry/Scaly -Color (Shahana-wound Skin Appearance) Assessed Erythema -Temperature (Shahana-wound Skin No Abnormality Appearance) (Pt Warm) -Tenderness on Palpation (Shahana-wound Yes Skin Appearance) -Ulcer Cleansing Rinsed/ Irrigated with Saline -Foul Odor after Cleansing No -Anesthetic Used 4% Lidocaine Solution #2 R Heel -Combined with other wound No -Current Size (cm) - Length 1.6 -Current Size (cm) - Width 1.4 -Current Size (cm) - Depth 0.3 -Total Square Cm 2.24 -Photo Taken No -Epithelialization Small 1-33% -Undermining/Tunneling Yes -Undermining/Tunneling Starts (O' 12 clock) -Undermining/Tunneling Ends (O'clock) 3 -Maximum Distance (cm) 0.3 -Circular Undermining No -Exudate Amt Small -Exudate Type Serosanguineous -Wound Margin Distinct, Outline Attached -Granulation Amt Large (67-100%) -Granulation Quality [place] -Slough/Fibrin Yes -Necrosis Amt Small (1-33%) -Necrotic Tissue Type Adherent Slough -Texture (Shahana-wound Skin Appearance) Assessed Scarring -Moisture (Shahana-wound Skin Appearance Assessed ) Dry/Scaly -Color (Shahana-wound Skin Appearance) Assessed Erythema -Temperature (Shahana-wound Skin No Abnormality Appearance) (Pt Warm) -Tenderness on Palpation (Shahana-wound Yes Skin Appearance) -Ulcer Cleansing Rinsed/ Irrigated with Saline -Foul Odor after Cleansing No -Anesthetic Used 4% Lidocaine Solution [Edema Assessment] -Lower Limb Edema Present Yes -Right Calf (cm) 33 -Right Ankle (cm) 22.2 WC - Nurse 2 - General Ulcer CM Notes Start: 09/19/18 14:00 Freq: Status: Active Protocol: Activity Type Activity Date Activity User E-Sign Co-Sign Detail Recorded Client Recorded Date Recorded By Document 09/19/18 15:02 DV [id number] 09/19/18 15:36 DV 09/19/18 15:02 Wound Center Nurse 2 [Procedure/Treatment] #11 Right 3rd Toe -Time 15:28 -Correct Patient Yes -Correct Side, Site, Position Yes -Correct Procedure Yes -Procedure Performed Yes -Type of Procedure Debridement -Clinical Debridement Subcutaneous -Post Debridement Size (cm) - Length 0.4 -Post Debridement Size (cm) - Width 0.5 -Post Debridement Size (cm) - Depth 0.1 -Total Square Cm 0.20 -Wound/Ulcer Outcome Not Healed -Ulcer Cleansing Rinsed/ Irrigated with Saline -Foul Odor after Cleansing No -Bioengineered Tissue No -Bleeding Controlled with Pressure -Offloading Yes -Type of Offloading Total Contact Cast (TCC) -Treatment Response Procedure Tolerated Well #10- RT GR TOE DORSAL -Time 15:27 -Correct Patient Yes -Correct Side, Site, Position Yes -Correct Procedure Yes -Procedure Performed Yes -Type of Procedure Debridement -Clinical Debridement Subcutaneous -Post Debridement Size (cm) - Length 0.4 -Post Debridement Size (cm) - Width 0.8 -Post Debridement Size (cm) - Depth 0.1 -Total Square Cm 0.32 -Wound/Ulcer Outcome Not Healed -Ulcer Cleansing Rinsed/ Irrigated with Saline -Foul Odor after Cleansing No -Bioengineered Tissue No -Bleeding Controlled with Pressure -Offloading Yes -Type of Offloading Total Contact Cast (TCC) -Treatment Response Procedure Tolerated Well #6 Right 2nd Toe -Time 15:27 -Correct Patient Yes -Correct Side, Site, Position Yes -Procedure Performed No -Post Debridement Size (cm) - Length 0 -Post Debridement Size (cm) - Width 0 -Post Debridement Size (cm) - Depth 0 -Total Square Cm 0 -Wound/Ulcer Outcome Healed- Epithelialized -Treatment Response Procedure Tolerated Well #4 RIGHT ACHILLES -Time 15:25 -Correct Patient Yes -Correct Side, Site, Position Yes -Correct Procedure Yes -Procedure Performed Yes -Type of Procedure Debridement -Clinical Debridement Subcutaneous -Post Debridement Size (cm) - Length 1.0 -Post Debridement Size (cm) - Width 1.1 -Post Debridement Size (cm) - Depth 0.3 -Total Square Cm 1.10 -Wound/Ulcer Outcome Not Healed -Ulcer Cleansing Rinsed/ Irrigated with Saline -Foul Odor after Cleansing No -Bioengineered Tissue Yes -Type of bioengineered Tissue [place] -Bleeding Controlled with Pressure -Offloading No -Type of Offloading Total Contact Cast (TCC) -Treatment Response Procedure Tolerated Well #2 R Heel -Time 15:20 -Correct Patient Yes -Correct Side, Site, Position Yes -Correct Procedure Yes -Procedure Performed Yes -Type of Procedure Debridement -Clinical Debridement Subcutaneous -Post Debridement Size (cm) - Length 1.8 -Post Debridement Size (cm) - Width 1.2 -Post Debridement Size (cm) - Depth 0.4 -Total Square Cm 2.16 -Wound/Ulcer Outcome Not Healed -Ulcer Cleansing Rinsed/ Irrigated with Saline -Foul Odor after Cleansing No -Bioengineered Tissue Yes -Type of bioengineered Tissue [place] -Bleeding Controlled with Pressure -Offloading No -Type of Offloading Total Contact Cast (TCC) -Treatment Response Procedure Tolerated Well [See Physician Procedure note for Specifics] Pain Scale: 0-10 Numeric [Pain] -Is Patient Pain Free? Yes Psych/Mental Status: Normal Affect, Appropriate Debridement Note Post-Debridement Measurements/Treatment WC - Nurse 2 - General Ulcer CM Notes Start: 09/19/18 14:00 Freq: Status: Active Protocol: Activity Type Activity Date Activity User E-Sign Co-Sign Detail Recorded Client Recorded Date Recorded By Document 09/19/18 15:02 DV [id number] 04/05/19 15:36 DV 09/19/18 15:02 Wound Center Nurse 2 #11 Right 3rd Toe -Time 15:28 -Correct Patient Yes -Correct Side, Site, Position Yes -Correct Procedure Yes -Procedure Performed Yes -Type of Procedure Debridement -Clinical Debridement Subcutaneous -Post Debridement Size (cm) - Length 0.4 -Post Debridement Size (cm) - Width 0.5 -Post Debridement Size (cm) - Depth 0.1 -Total Square Cm 0.20 -Wound/Ulcer Outcome Not Healed -Ulcer Cleansing Rinsed/ Irrigated with Saline -Foul Odor after Cleansing No -Bioengineered Tissue No -Bleeding Controlled with Pressure -Offloading Yes -Type of Offloading Total Contact Cast (TCC) -Treatment Response Procedure Tolerated Well #10- RT GR TOE DORSAL -Time 15:27 -Correct Patient Yes -Correct Side, Site, Position Yes -Correct Procedure Yes -Procedure Performed Yes -Type of Procedure Debridement -Clinical Debridement Subcutaneous -Post Debridement Size (cm) - Length 0.4 -Post Debridement Size (cm) - Width 0.8 -Post Debridement Size (cm) - Depth 0.1 -Total Square Cm 0.32 -Wound/Ulcer Outcome Not Healed -Ulcer Cleansing Rinsed/ Irrigated with Saline -Foul Odor after Cleansing No -Bioengineered Tissue No -Bleeding Controlled with Pressure -Offloading Yes -Type of Offloading Total Contact Cast (TCC) -Treatment Response Procedure Tolerated Well #6 Right 2nd Toe -Time 15:27 -Correct Patient Yes -Correct Side, Site, Position Yes -Procedure Performed No -Post Debridement Size (cm) - Length 0 -Post Debridement Size (cm) - Width 0 -Post Debridement Size (cm) - Depth 0 -Total Square Cm 0 -Wound/Ulcer Outcome Healed- Epithelialized -Treatment Response Procedure Tolerated Well #4 RIGHT ACHILLES -Time 15:25 -Correct Patient Yes -Correct Side, Site, Position Yes -Correct Procedure Yes -Procedure Performed Yes -Type of Procedure Debridement -Clinical Debridement Subcutaneous -Post Debridement Size (cm) - Length 1.0 -Post Debridement Size (cm) - Width 1.1 -Post Debridement Size (cm) - Depth 0.3 -Total Square Cm 1.10 -Wound/Ulcer Outcome Not Healed -Ulcer Cleansing Rinsed/ Irrigated with Saline -Foul Odor after Cleansing No -Bioengineered Tissue Yes -Type of bioengineered Tissue [place] -Bleeding Controlled with Pressure -Offloading No -Type of Offloading Total Contact Cast (TCC) -Treatment Response Procedure Tolerated Well #2 R Heel -Time 15:20 -Correct Patient Yes -Correct Side, Site, Position Yes -Correct Procedure Yes -Procedure Performed Yes -Type of Procedure Debridement -Clinical Debridement Subcutaneous -Post Debridement Size (cm) - Length 1.8 -Post Debridement Size (cm) - Width 1.2 -Post Debridement Size (cm) - Depth 0.4 -Total Square Cm 2.16 -Wound/Ulcer Outcome Not Healed -Ulcer Cleansing Rinsed/ Irrigated with Saline -Foul Odor after Cleansing No -Bioengineered Tissue Yes -Type of bioengineered Tissue [place] -Bleeding Controlled with Pressure -Offloading No -Type of Offloading Total Contact Cast (TCC) -Treatment Response Procedure Tolerated Well Pain Scale: 0-10 Numeric Is Patient Pain Free? Yes Wound debrided: right 3rd toe Laterality: Right Type of Debridement: Excisional debridement Anesthesia Used: 4% Lidocaine Solution, 5% Lidocaine Gel Depth: Down to and including healthy tissue, in the subcutaneous layer Percentage of wound debrided: 100 Instrument Used: 5mm curette Tissue Removed: yellow slough, devitalized tissue Severity: Fat Layer Exposed Amount of bleeding with debridement: Mild Bleeding Controlled with: Compression and gauze Patient tolerated procedure well - Additional Wound Wound debrided: right great toe dorsal Laterality: Right Type of Debridement: Excisional debridement Anesthesia Used: 4% Lidocaine Solution, 5% Lidocaine Gel Depth: Down to and including healthy tissue, in the subcutaneous layer Percentage of wound debrided: 100 Instrument Used: 5mm curette Tissue Removed: yellow slough, devitalized tissue Severity: Fat Layer Exposed Amount of bleeding with debridement: Mild Bleeding Controlled with: Compression and gauze Patient tolerated procedure: Patient tolerated procedure well - Additional Wound Wound debrided: right second toe Laterality: Right Type of Debridement: Selective debridement Anesthesia Used: 4% Lidocaine Solution Depth: Down to and including healthy tissue Percentage of wound debrided: 100 Instrument Used: 3mm curette Tissue Removed: devitalized tissue Severity: Limited To Skin Breakdown Amount of bleeding with debridement: None Patient tolerated procedure: Patient tolerated procedure well - Additional Wound Wound debrided: right achilles Laterality: Right Wound Grade/Stage: Valdez grade 2 Type of Debridement: Excisional debridement Anesthesia Used: 4% Lidocaine Solution, Cetacaine - 1% Depth: Down to and including healthy tissue, in the subcutaneous layer Percentage of wound debrided: 100 Instrument Used: 5mm curette Tissue Removed: yellow slough, devitalized tissue Severity: Fat Layer Exposed Amount of bleeding with debridement: Mild Bleeding Controlled with: Compression and gauze Patient tolerated procedure: Patient tolerated procedure well - Additional Wound Wound debrided: right heel Laterality: Right Wound Grade/Stage: Valdez grade 2 Type of Debridement: Excisional debridement Anesthesia Used: 4% Lidocaine Solution, 5% Lidocaine Gel, Cetacaine - 1% Depth: Down to and including healthy tissue, in the subcutaneous layer Percentage of wound debrided: 100 Instrument Used: 5mm curette Tissue Removed: yellow slough, devitalized tissue Severity: Fat Layer Exposed Amount of bleeding with debridement: Mild Bleeding Controlled with: Compression and gauze Patient tolerated procedure: Patient tolerated procedure well Assessment/Plan Active Problems Type 2 diabetes, uncontrolled, with ulcer of heel (Chronic) right plantar heel and right achilles Varicose veins of right lower extremity with ulcer (Chronic) Diabetes with ulcer of toe (Chronic) Peripheral vascular disease (Chronic) Type II diabetes mellitus (Chronic) Assessment: 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 Diabetes mellitus - uncontrolled. Peripheral vascular disease - status post revascularization 08/07/18. right pat venous ulcer - healed. stage 2 pressure ulcer coccyx - healed. right 3rd toe and right second toe ulcers, right great toe Plan: Gibson's ulcers were evaluated and debrided today. There is mild improvement in his ulcers overall. Will continue to treat his toe ulcers with Aquacel Extra. Theraskin was applied to his right heel and right Achilles ulcers following debridement using 50% of the graft. The remainder of the graft was discarded. 3-0 nylon sutures were used to secure Theraskin grafts to the ulcers. A wound veil was then placed over the wounds. The rest of his wounds were dressed and he was prepped for application of TCC. TCC was applied by myself with assistance from nurse with good result. As the patient was waiting for the cast to harden/dry, he complained of increased pain in his heel and we attempted to elevate his foot to see if that may improve his discomfort but it did not and he ultimately did not have improvement in his pain so the cast was removed and he was dressed with a tubigrip dressing. Discussed considering application again on Saturday but he may ultimately not be able to tolerate TCC due to neuropathy/CRPS. Dr. Navas performed a SFA-ant. tib. bypass on his r ight leg on 08/07/18. Discussed offloading importance and encouraged continuing to use surgical shoe to offload his heel. Single layer tubigrip compression advised if he can tolerate this, avoidance of idle standing or sitting with legs hanging down. Encouraged improved control of his blood sugars. Encouraged him to seek consultation with pain management for his pain and gave him a 7 day RX (#56) for tramadol to use for pain as needed on 09/12/18. OARRS checked and appropriate. Encouraged to call with increased drainage, redness or fever or chills. Will f/u in 1 week.
[2018-09-26 14:01] VITALS: BP 140/50; PULSE 77; RESP 16; TEMP 36.9; BMI 24.9
--- NOTE | 2018-09-26 16:54 | PCM.WC.PN ---
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 Current Visit: Yes Qualifiers: Lower extremity ulceration location: other part of foot Non-pressure ulcer stage: with fat layer exposed Qualified Code(s): I83.015 - Varicose veins of right lower extremity with ulcer other part of foot; L97.512 - Non-pressure chronic ulcer of other part of right foot with fat layer exposed Code(s): I83.019 - Varicose veins of right lower extremity with ulcer of unspecified site; L97.919 - Non-pressure chronic ulcer of unspecified part of right lower leg with unspecified severity (3) Diabetes with ulcer of toe Status: Chronic Current Visit: Yes Qualifiers: Diabetes mellitus type: type 2 Laterality: right Non-pressure ulcer stage: with fat layer exposed Qualified Code(s): E11.621 - Type 2 diabetes mellitus with foot ulcer; L97.512 - Non-pressure chronic ulcer of other part of right foot with fat layer exposed Code(s): E11.621 - Type 2 diabetes mellitus with foot ulcer; L97.509 - Non-pressure chronic ulcer of other part of unspecified foot with unspecified severity (4) Peripheral vascular disease Status: Chronic Current Visit: Yes Code(s): I73.9 - Peripheral vascular disease, unspecified (5) Type II diabetes mellitus Status: Chronic Current Visit: Yes Qualifiers: Diabetes mellitus skilled nursing insulin use: without skilled nursing use Diabetes mellitus complication status: with skin complications Diabetes mellitus complication detail: with foot ulcer Qualified Code(s): E11.621 - Type 2 diabetes mellitus with foot ulcer; L97.509 - Non-pressure chronic ulcer of other part of unspecified foot with unspecified severity Code(s): E11.9 - Type 2 diabetes mellitus without complications Type of Wound Date of Service: 09/26/18 Chief Complaint: Nonhealing ulcers right heel and toes History of Wound: This 68-year-old male is here for evaluation of an ulcer of his right heel and his right pat. He states that he has had an ulcer approx. 5 years ago of this same heel and was treated here and was healed after vascular interventions by Dr. Navas. He has noticed increased pain in his heel for the last few months and approx. beginning of May he noted an open wound to his right heel. He was using gauze but this started to irritate his skin and has been using silvadene and adaptic to the wound with tape for the last few weeks. He has not had any treatment with antibiotics for the wound. He is self-referred for treatment here. He does follow with Dr. 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 He has had procedures for his arterial disease in past to both of his lower extremities. From review of records it seems that Dr. Navas planned to do a right SFA-ant. tib bypass but it does not appear that this was done and patient denies having any bypass procedures other than his heart. It sounds like he is trying alternative treatments with supplements and chelation therapy. He also has diabetes and his last A1C several months ago was 7.2% but he stopped glyburide because he felt it was causing blisters of his legs. He does wear diabetic shoes. He has been undergoing chelation treatments by Dr. German in [place]. Dr. German prescribed him oxycodone-APAP 5/325 mg #60 which were filled on 05/22/18 for pain, he has six tablets left from this prescription, and he is asking for pain medication to treat pain from debridement. He reports having xrays done several months ago of his right heel due to pain which did not show any osteomyelitis or acute fractures. He denies fever, chills, erythema or heavy drainage. He reports significant pain and discomfort of his right heel and his entire right leg which no one can explain. Progress of Wound: Gibson is here to follow up for nonhealing ulcers of his right foot. He tolerated the dressings and is tolerating the first application of Theraskin and is wearing tubigrip compression most of the time. Theraskin looks good and is being incorporated well to his wound. He underwent artificial bypass graft of his ant. tibial to femoral artery on 08/07/18. He had an OH postoperatively and is being treated medically. He continues to have severe pain in his ankle/heel. He has a venous ulcer on his right second toe and great toe. He has been trying to elevate his foot and has been using his surgical shoe to offload as well. Denies fever or chills or increased drainage. - Physical Exam Vital Signs Temp Pulse Resp BP 98.4 F 77 16 140/50 H 09/26/18 14:01 09/26/18 14:01 09/26/18 14:01 09/26/18 14:01 General: Alert, Oriented x3, Cooperative, No apparent distress HEENT: Atraumatic, Normocephalic Oral: Moist Mucosa Extremities: Edema Skin: Ulcer/ Wound Wound Measurements and Assessment WC - Nurse 1 - General Ulcer Measurement Start: 09/19/18 14:00 Freq: Status: Active Protocol: Activity Type Activity Date Activity User E-Sign Co-Sign Detail Recorded Client Recorded Date Recorded By Document 09/26/18 14:01 [facility] [id number] 09/26/18 14:17 [facility] 09/26/18 14:01 Wound Center Nurse 1 [Ulcer Assessment] #11 Right 3rd Toe -Combined with other wound No -Current Size (cm) - Length 0.1 -Current Size (cm) - Width 0.1 -Current Size (cm) - Depth 0.1 -Total Square Cm 0.01 -Epithelialization Large 67-100% -Tunneling No -Undermining/Tunneling No -Circular Undermining No -Texture (Shahana-wound Skin Appearance) Assessed Scarring -Moisture (Shahana-wound Skin Appearance Assessed ) Dry/Scaly -Color (Shahana-wound Skin Appearance) Assessed -Temperature (Shahana-wound Skin No Abnormality Appearance) (Pt Warm) -Tenderness on Palpation (Shahana-wound No Skin Appearance) -Ulcer Cleansing Wound Cleanser -Foul Odor after Cleansing No -Anesthetic Used 4% Lidocaine Solution #10- RT GR TOE DORSAL -Combined with other wound No -Current Size (cm) - Length 0.4 -Current Size (cm) - Width 0.8 -Current Size (cm) - Depth 0.2 -Total Square Cm 0.32 -Photo Taken No -Epithelialization None Present -Tunneling No -Undermining/Tunneling No -Circular Undermining No -Exudate Amt Small -Exudate Type Sanguineous -Wound Margin Flat & Intact -Granulation Amt Large (67-100%) -Granulation Quality Red -Slough/Fibrin Yes -Necrosis Amt Small (1-33%) -Necrotic Tissue Type Adherent Slough -Texture (Shahana-wound Skin Appearance) Assessed Scarring -Moisture (Shahana-wound Skin Appearance Assessed ) Dry/Scaly -Color (Shahana-wound Skin Appearance) Assessed Erythema -Temperature (Shahana-wound Skin No Abnormality Appearance) (Pt Warm) -Tenderness on Palpation (Shahana-wound No Skin Appearance) -Ulcer Cleansing Wound Cleanser -Foul Odor after Cleansing No -Anesthetic Used 5% Lidocaine Gel #4 RIGHT ACHILLES -Combined with other wound No -Current Size (cm) - Length 0.5 -Current Size (cm) - Width 0.5 -Current Size (cm) - Depth 0.1 -Total Square Cm 0.25 -Photo Taken No -Epithelialization Small 1-33% -Tunneling No -Undermining/Tunneling No -Circular Undermining No -Exudate Amt Medium -Exudate Type Serosanguineous -Wound Margin Flat & Intact -Granulation Amt None Present (0 %) -Slough/Fibrin Yes -Necrosis Amt Large (67-100%) -Necrotic Tissue Type Adherent Slough -Texture (Shahana-wound Skin Appearance) Callus Scarring -Moisture (Shahana-wound Skin Appearance Assessed ) Dry/Scaly -Color (Shahana-wound Skin Appearance) Assessed -Temperature (Shahana-wound Skin No Abnormality Appearance) (Pt Warm) -Tenderness on Palpation (Shahana-wound Yes Skin Appearance) -Ulcer Cleansing Wound Cleanser -Foul Odor after Cleansing No -Anesthetic Used 4% Lidocaine Solution #2 R Heel -Combined with other wound No -Current Size (cm) - Length 1.3 -Current Size (cm) - Width 1 -Current Size (cm) - Depth 0.2 -Total Square Cm 1.3 -Photo Taken No -Epithelialization Small 1-33% -Tunneling No -Undermining/Tunneling No -Circular Undermining No -Exudate Amt Medium -Exudate Type Serosanguineous -Wound Margin Flat & Intact -Granulation Amt Medium (34-66%) -Granulation Quality [place] -Slough/Fibrin Yes -Necrosis Amt Medium (34-66%) -Necrotic Tissue Type Adherent Slough -Texture (Shahana-wound Skin Appearance) Assessed Scarring -Moisture (Shahana-wound Skin Appearance Assessed ) Dry/Scaly -Color (Shahana-wound Skin Appearance) Assessed Erythema -Temperature (Shahana-wound Skin No Abnormality Appearance) (Pt Warm) -Tenderness on Palpation (Shahana-wound Yes Skin Appearance) -Ulcer Cleansing Wound Cleanser -Anesthetic Used 4% Lidocaine Solution [Edema Assessment] -Lower Limb Edema Present Yes -Right Calf (cm) 33.7 -Right Ankle (cm) 22.4 WC - Nurse 2 - General Ulcer CM Notes Start: 09/19/18 14:00 Freq: Status: Active Protocol: Activity Type Activity Date Activity User E-Sign Co-Sign Detail Recorded Client Recorded Date Recorded By Document 09/26/18 14:51 DV [id number] 09/26/18 14:53 DV 09/26/18 14:51 Wound Center Nurse 2 [Procedure/Treatment] #11 Right 3rd Toe -Time 14:51 -Correct Patient Yes -Correct Side, Site, Position Yes -Procedure Performed No -Wound/Ulcer Outcome Not Healed #10- RT GR TOE DORSAL -Time 14:52 -Correct Patient Yes -Correct Side, Site, Position Yes -Correct Procedure No -Procedure Performed No -Wound/Ulcer Outcome Not Healed #4 RIGHT ACHILLES -Time 14:52 -Correct Patient Yes -Correct Side, Site, Position Yes -Correct Procedure No -Procedure Performed No -Wound/Ulcer Outcome Not Healed #2 R Heel -Time 14:52 -Correct Patient Yes -Correct Side, Site, Position Yes -Correct Procedure No -Procedure Performed No -Wound/Ulcer Outcome Not Healed [See Physician Procedure note for Specifics] Pain Scale: 0-10 Numeric [Pain] -Is Patient Pain Free? Yes Psych/Mental Status: Normal Affect, Appropriate Debridement Note Post-Debridement Measurements/Treatment ITALO - Nurse 2 - General Ulcer CM Notes Start: 09/19/18 14:00 Freq: Status: Active Protocol: Activity Type Activity Date Activity User E-Sign Co-Sign Detail Recorded Client Recorded Date Recorded By Document 09/19/18 15:02 DV [id number] 09/19/18 15:36 DV Document 09/26/18 14:51 DV [id number] 09/26/18 14:53 DV 09/19/18 09/26/18 15:02 14:51 Wound Center Nurse 2 #11 Right 3rd Toe -Time 15:28 14:51 -Correct Patient Yes Yes -Correct Side, Site, Position Yes Yes -Correct Procedure Yes -Procedure Performed Yes No -Type of Procedure Debridement -Clinical Debridement Subcutaneous -Post Debridement Size (cm) - Length 0.4 -Post Debridement Size (cm) - Width 0.5 -Post Debridement Size (cm) - Depth 0.1 -Total Square Cm 0.20 -Wound/Ulcer Outcome Not Healed Not Healed -Ulcer Cleansing Rinsed/ Irrigated with Saline -Foul Odor after Cleansing No -Bioengineered Tissue No -Bleeding Controlled with Pressure -Offloading Yes -Type of Offloading Total Contact Cast (TCC) -Treatment Response Procedure Tolerated Well #10- RT GR TOE DORSAL -Time 15:27 14:52 -Correct Patient Yes Yes -Correct Side, Site, Position Yes Yes -Correct Procedure Yes No -Procedure Performed Yes No -Type of Procedure Debridement -Clinical Debridement Subcutaneous -Post Debridement Size (cm) - Length 0.4 -Post Debridement Size (cm) - Width 0.8 -Post Debridement Size (cm) - Depth 0.1 -Total Square Cm 0.32 -Wound/Ulcer Outcome Not Healed Not Healed -Ulcer Cleansing Rinsed/ Irrigated with Saline -Foul Odor after Cleansing No -Bioengineered Tissue No -Bleeding Controlled with Pressure -Offloading Yes -Type of Offloading Total Contact Cast (TCC) -Treatment Response Procedure Tolerated Well #6 Right 2nd Toe -Time 15:27 -Correct Patient Yes -Correct Side, Site, Position Yes -Procedure Performed No -Post Debridement Size (cm) - Length 0 -Post Debridement Size (cm) - Width 0 -Post Debridement Size (cm) - Depth 0 -Total Square Cm 0 -Wound/Ulcer Outcome Healed- Epithelialized -Treatment Response Procedure Tolerated Well #4 RIGHT ACHILLES -Time 15:25 14:52 -Correct Patient Yes Yes -Correct Side, Site, Position Yes Yes -Correct Procedure Yes No -Procedure Performed Yes No -Type of Procedure Debridement -Clinical Debridement Subcutaneous -Post Debridement Size (cm) - Length 1.0 -Post Debridement Size (cm) - Width 1.1 -Post Debridement Size (cm) - Depth 0.3 -Total Square Cm 1.10 -Wound/Ulcer Outcome Not Healed Not Healed -Ulcer Cleansing Rinsed/ Irrigated with Saline -Foul Odor after Cleansing No -Bioengineered Tissue Yes -Type of bioengineered Tissue THERASKIN -Bleeding Controlled with Pressure -Offloading No -Type of Offloading Total Contact Cast (TCC) -Treatment Response Procedure Tolerated Well #2 R Heel -Time 15:20 14:52 -Correct Patient Yes Yes -Correct Side, Site, Position Yes Yes -Correct Procedure Yes No -Procedure Performed Yes No -Type of Procedure Debridement -Clinical Debridement Subcutaneous -Post Debridement Size (cm) - Length 1.8 -Post Debridement Size (cm) - Width 1.2 -Post Debridement Size (cm) - Depth 0.4 -Total Square Cm 2.16 -Wound/Ulcer Outcome Not Healed Not Healed -Ulcer Cleansing Rinsed/ Irrigated with Saline -Foul Odor after Cleansing No -Bioengineered Tissue Yes -Type of bioengineered Tissue THERASKIN -Bleeding Controlled with Pressure -Offloading No -Type of Offloading Total Contact Cast (TCC) -Treatment Response Procedure Tolerated Well Pain Scale: 0-10 Numeric Is Patient Pain Free? Yes Yes Wound debrided: right third toe Laterality: Right No debridement was completed today - due to healing - Additional Wound Wound debrided: right second toe Laterality: Right Operative Diagnosis: no debridement done today due to healing - Additional Wound Wound debrided: Right great toe Laterality: Right Type of Debridement: Selective debridement Anesthesia Used: 4% Lidocaine Solution Depth: Down to and including healthy tissue, in the subcutaneous layer Percentage of wound debrided: 100 Instrument Used: - - gauze Tissue Removed: yellow slough, devitalized tissue Severity: Fat Layer Exposed Amount of bleeding with debridement: Mild Bleeding Controlled with: Compression and gauze Patient tolerated procedure: Patient tolerated procedure well - Additional Wound Wound debrided: right achilles Laterality: Right Wound Grade/Stage: [place] grade 2 Operative Diagnosis: no debridement done. Theraskin in place and incorporating - Additional Wound Wound debrided: right heel Laterality: Right Wound Grade/Stage: [place] grade 2 Operative Diagnosis: No debridement done. Theraskin in place and incorporating. 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 Diabetes mellitus - uncontrolled. Peripheral vascular disease - status post revascularization 08/07/18. right pat venous ulcer - healed. stage 2 pressure ulcer coccyx - healed. right 3rd toe and right second toe ulcers, right great toe Plan: Gibson's ulcers were evaluated today. There is mild improvement in his ulcers overall. Will continue to treat his toe ulcers with Aquacel Extra. Theraskin intact and incorporating into wound bed and still secure. 3-0 nylon sutures intact. A wound veil was placed over the wounds and redressed. The rest of his wounds were dressed with Aquacel for moderate drainage. Dr. Navas performed a SFA-ant. tib. bypass on his right leg on 08/07/18. Discussed offloading importance and encouraged continuing to use surgical shoe to offload his heel. Single layer tubigrip compression advised if he can tolerate this, avoidance of idle standing or sitting with legs hanging down. Encouraged improved control of his blood sugars. Encouraged him to seek consultation with pain management for his pain and gave him a 7 day RX (#56) for tramadol to use for pain as needed on 09/26/18. OARRS checked and appropriate. Encouraged to call with increased drainage, redness or fever or chills. Will f/u in 1 weekwith plan to apply Theraskin #2.
--- NOTE | 2018-09-26 16:58 | PN.PCM_ITS ---
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 Current Visit: Yes Qualifiers: Lower extremity ulceration location: other part of foot Non-pressure ulcer stage: with fat layer exposed Qualified Code(s): I83.015 - Varicose veins of right lower extremity with ulcer other part of foot; L97.512 - Non-pressure chronic ulcer of other part of right foot with fat layer exposed Code(s): I83.019 - Varicose veins of right lower extremity with ulcer of unspecified site; L97.919 - Non-pressure chronic ulcer of unspecified part of right lower leg with unspecified severity (3) Diabetes with ulcer of toe Status: Chronic Current Visit: Yes Qualifiers: Diabetes mellitus type: type 2 Laterality: right Non-pressure ulcer stage: with fat layer exposed Qualified Code(s): E11.621 - Type 2 diabetes mellitus with foot ulcer; L97.512 - Non-pressure chronic ulcer of other part of right foot with fat layer exposed Code(s): E11.621 - Type 2 diabetes mellitus with foot ulcer; L97.509 - Non- pressure chronic ulcer of other part of unspecified foot with unspecified severity (4) Peripheral vascular disease Status: Chronic Current Visit: Yes Code(s): I73.9 - Peripheral vascular disease, unspecified (5) Type II diabetes mellitus Status: Chronic Current Visit: Yes Qualifiers: Diabetes mellitus intermediate insulin use: without parts counterman use Diabetes mellitus complication status: with skin complications Diabetes mellitus complication detail: with foot ulcer Qualified Code(s): E11.621 - Type 2 diabetes mellitus with foot ulcer; L97.509 - Non-pressure chronic ulcer of other part of unspecified foot with unspecified severity Code(s): E11.9 - Type 2 diabetes mellitus without complications Type of Wound Date of Service: 09/26/18 Chief Complaint: Nonhealing ulcers right heel and toes History of Wound: This 68-year-old male is here for evaluation of an ulcer of his right heel and his right pat. He states that he has had an ulcer approx. 5 years ago of this same heel and was treated here and was healed after vascular interventions by Dr. Navas. He has noticed increased pain in his heel for the last few months and approx. beginning of May he noted an open wound to his right heel. He was using gauze but this started to irritate his skin and has been using silvadene and adaptic to the wound with tape for the last few weeks. He has not had any treatment with antibiotics for the wound. He is self-referred for treatment here. He does follow with Dr. 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 He has had procedures for his arterial disease in past to both of his lower extremities. From review of records it seems that Dr. Navas planned to do a right SFA-ant. tib bypass but it does not appear that this was done and patient denies having any bypass procedures other than his heart. It sounds like he is trying alternative treatments with supplements and chelation therapy. He also has diabetes and his last A1C several months ago was 7.2% but he stopped glyburide because he felt it was causing blisters of his legs. He does wear diab etic shoes. He has been undergoing chelation treatments by Dr. German in [place]. Dr. German prescribed him oxycodone-APAP 5/325 mg #60 which were filled on 05/22/18 for pain, he has six tablets left from this prescription, and he is asking for pain medication to treat pain from debridement. He reports having xrays done several months ago of his right heel due to pain which did not show any osteomyelitis or acute fractures. He denies fever, chills, erythema or heavy drainage. He reports significant pain and discomfort of his right heel and his entire right leg which no one can explain. Progress of Wound: Gibson is here to follow up for nonhealing ulcers of his right foot. He tolerated the dressings and is tolerating the first application of Theraskin and is wearing tubigrip compression most of the time. Theraskin looks good and is being incorporated well to his wound. He underwent artificial bypass graft of his ant. tibial to femoral artery on 08/07/18. He had an MO postoperatively and is being treated medically. He continues to have severe pain in his ankle/heel. He has a venous ulcer on his right second toe and great toe. He has been trying to elevate his foot and has been using his surgical shoe to offload as well. Denies fever or chills or increased drainage. - Physical Exam Vital Signs Temp Pulse Resp BP 98.4 F 77 16 140/50 H 09/26/18 14:01 09/26/18 14:01 09/26/18 14:01 09/26/18 14:01 General: Alert, Oriented x3, Cooperative, No apparent distress HEENT: Atraumatic, Normocephalic Oral: Moist Mucosa Extremities: Edema Skin: Ulcer/ Wound Wound Measurements and Assessment WC - Nurse 1 - General Ulcer Measurement Start: 09/19/18 14:00 Freq: Status: Active Protocol: Activity Type Activity Date Activity User E-Sign Co-Sign Detail Recorded Client Recorded Date Recorded By Document 09/26/18 14:01 [facility] [id number] 09/26/18 14:17 [facility] 09/26/18 14:01 Wound Center Nurse 1 [Ulcer Assessment] #11 Right 3rd Toe -Combined with other wound No -Current Size (cm) - Length 0.1 -Current Size (cm) - Width 0.1 -Current Size (cm) - Depth 0.1 -Total Square Cm 0.01 -Epithelialization Large 67-100% -Tunneling No -Undermining/Tunneling No -Circular Undermining No -Texture (Shahana-wound Skin Appearance) Assessed Scarring -Moisture (Shahana-wound Skin Appearance Assessed ) Dry/Scaly -Color (Shahana-wound Skin Appearance) Assessed -Temperature (Shahana-wound Skin No Abnormality Appearance) (Pt Warm) -Tenderness on Palpation (Shahana-wound No Skin Appearance) -Ulcer Cleansing Wound Cleanser -Foul Odor after Cleansing No -Anesthetic Used 4% Lidocaine Solution #10- RT GR TOE DORSAL -Combined with other wound No -Current Size (cm) - Length 0.4 -Current Size (cm) - Width 0.8 -Current Size (cm) - Depth 0.2 -Total Square Cm 0.32 -Photo Taken No -Epithelialization None Present -Tunneling No -Undermining/Tunneling No -Circular Undermining No -Exudate Amt Small -Exudate Type Sanguineous -Wound Margin Flat & Intact -Granulation Amt Large (67-100%) -Granulation Quality Red -Slough/Fibrin Yes -Necrosis Amt Small (1-33%) -Necrotic Tissue Type Adherent Slough -Texture (Shahana-wound Skin Appearance) Assessed Scarring -Moisture (Shahana-wound Skin Appearance Assessed ) Dry/Scaly -Color (Shahana-wound Skin Appearance) Assessed Erythema -Temperature (Shahana-wound Skin No Abnormality Appearance) (Pt Warm) -Tenderness on Palpation (Shahana-wound No Skin Appearance) -Ulcer Cleansing Wound Cleanser -Foul Odor after Cleansing No -Anesthetic Used 5% Lidocaine Gel #4 RIGHT ACHILLES -Combined with other wound No -Current Size (cm) - Length 0.5 -Current Size (cm) - Width 0.5 -Current Size (cm) - Depth 0.1 -Total Square Cm 0.25 -Photo Taken No -Epithelialization Small 1-33% -Tunneling No -Undermining/Tunneling No -Circular Undermining No -Exudate Amt Medium -Exudate Type Serosanguineous -Wound Margin Flat & Intact -Granulation Amt None Present (0 %) -Slough/Fibrin Yes -Necrosis Amt Large (67-100%) -Necrotic Tissue Type Adherent Slough -Texture (Shahana-wound Skin Appearance) Callus Scarring -Moisture (Shahana-wound Skin Appearance Assessed ) Dry/Scaly -Color (Shahana-wound Skin Appearance) Assessed -Temperature (Shahana-wound Skin No Abnormality Appearance) (Pt Warm) -Tenderness on Palpation (Shahana-wound Yes Skin Appearance) -Ulcer Cleansing Wound Cleanser -Foul Odor after Cleansing No -Anesthetic Used 4% Lidocaine Solution #2 R Heel -Combined with other wound No -Current Size (cm) - Length 1.3 -Current Size (cm) - Width 1 -Current Size (cm) - Depth 0.2 -Total Square Cm 1.3 -Photo Taken No -Epithelialization Small 1-33% -Tunneling No -Undermining/Tunneling No -Circular Undermining No -Exudate Amt Medium -Exudate Type Serosanguineous -Wound Margin Flat & Intact -Granulation Amt Medium (34-66%) -Granulation Quality Alda -Slough/Fibrin Yes -Necrosis Amt Medium (34-66%) -Necrotic Tissue Type Adherent Slough -Texture (Shahana-wound Skin Appearance) Assessed Scarring -Moisture (Shahana-wound Skin Appearance Assessed ) Dry/Scaly -Color (Shahana-wound Skin Appearance) Assessed Erythema -Temperature (Shahana-wound Skin No Abnormality Appearance) (Pt Warm) -Tenderness on Palpation (Shahana-wound Yes Skin Appearance) -Ulcer Cleansing Wound Cleanser -Anesthetic Used 4% Lidocaine Solution [Edema Assessment] -Lower Limb Edema Present Yes -Right Calf (cm) 33.7 -Right Ankle (cm) 22.4 [facility] - Nurse 2 - General Ulcer CM Notes Start: 09/19/18 14:00 Freq: Status: Active Protocol: Activity Type Activity Date Activity User E-Sign Co-Sign Detail Recorded Client Recorded Date Recorded By Document 09/26/18 14:51 DV [id number] 09/26/18 14:53 DV 09/26/18 14:51 Wound Center Nurse 2 [Procedure/Treatment] #11 Right 3rd Toe -Time 14:51 -Correct Patient Yes -Correct Side, Site, Position Yes -Procedure Performed No -Wound/Ulcer Outcome Not Healed #10- RT GR TOE DORSAL -Time 14:52 -Correct Patient Yes -Correct Side, Site, Position Yes -Correct Procedure No -Procedure Performed No -Wound/Ulcer Outcome Not Healed #4 RIGHT ACHILLES -Time 14:52 -Correct Patient Yes -Correct Side, Site, Position Yes -Correct Procedure No -Procedure Performed No -Wound/Ulcer Outcome Not Healed #2 R Heel -Time 14:52 -Correct Patient Yes -Correct Side, Site, Position Yes -Correct Procedure No -Procedure Performed No -Wound/Ulcer Outcome Not Healed [See Physician Procedure note for Specifics] Pain Scale: 0-10 Numeric [Pain] -Is Patient Pain Free? Yes Psych/Mental Status: Normal Affect, Appropriate Debridement Note Post-Debridement Measurements/Treatment [facility] - Nurse 2 - General Ulcer CM Notes Start: 09/19/18 14:00 Freq: Status: Active Protocol: Activity Type Activity Date Activity User E-Sign Co-Sign Detail Recorded Client Recorded Date Recorded By Document 09/19/18 15:02 DV [id number] 09/19/18 15:36 DV Document 09/26/18 14:51 DV [id number] 09/26/18 14:53 DV 09/19/18 09/26/18 15:02 14:51 Wound Center Nurse 2 #11 Right 3rd Toe -Time 15:28 14:51 -Correct Patient Yes Yes -Correct Side, Site, Position Yes Yes -Correct Procedure Yes -Procedure Performed Yes No -Type of Procedure Debridement -Clinical Debridement Subcutaneous -Post Debridement Size (cm) - Length 0.4 -Post Debridement Size (cm) - Width 0.5 -Post Debridement Size (cm) - Depth 0.1 -Total Square Cm 0.20 -Wound/Ulcer Outcome Not Healed Not Healed -Ulcer Cleansing Rinsed/ Irrigated with Saline -Foul Odor after Cleansing No -Bioengineered Tissue No -Bleeding Controlled with Pressure -Offloading Yes -Type of Offloading Total Contact Cast (TCC) -Treatment Response Procedure Tolerated Well #10- RT GR TOE DORSAL -Time 15:27 14:52 -Correct Patient Yes Yes -Correct Side, Site, Position Yes Yes -Correct Procedure Yes No -Procedure Performed Yes No -Type of Procedure Debridement -Clinical Debridement Subcutaneous -Post Debridement Size (cm) - Length 0.4 -Post Debridement Size (cm) - Width 0.8 -Post Debridement Size (cm) - Depth 0.1 -Total Square Cm 0.32 -Wound/Ulcer Outcome Not Healed Not Healed -Ulcer Cleansing Rinsed/ Irrigated with Saline -Foul Odor after Cleansing No -Bioengineered Tissue No -Bleeding Controlled with Pressure -Offloading Yes -Type of Offloading Total Contact Cast (TCC) -Treatment Response Procedure Tolerated Well #6 Right 2nd Toe -Time 15:27 -Correct Patient Yes -Correct Side, Site, Position Yes -Procedure Performed No -Post Debridement Size (cm) - Length 0 -Post Debridement Size (cm) - Width 0 -Post Debridement Size (cm) - Depth 0 -Total Square Cm 0 -Wound/Ulcer Outcome Healed- Epithelialized -Treatment Response Procedure Tolerated Well #4 RIGHT ACHILLES -Time 15:25 14:52 -Correct Patient Yes Yes -Correct Side, Site, Position Yes Yes -Correct Procedure Yes No -Procedure Performed Yes No -Type of Procedure Debridement -Clinical Debridement Subcutaneous -Post Debridement Size (cm) - Length 1.0 -Post Debridement Size (cm) - Width 1.1 -Post Debridement Size (cm) - Depth 0.3 -Total Square Cm 1.10 -Wound/Ulcer Outcome Not Healed Not Healed -Ulcer Cleansing Rinsed/ Irrigated with Saline -Foul Odor after Cleansing No -Bioengineered Tissue Yes -Type of bioengineered Tissue THERASKIN -Bleeding Controlled with Pressure -Offloading No -Type of Offloading Total Contact Cast (TCC) -Treatment Response Procedure Tolerated Well #2 R Heel -Time 15:20 14:52 -Correct Patient Yes Yes -Correct Side, Site, Position Yes Yes -Correct Procedure Yes No -Procedure Performed Yes No -Type of Procedure Debridement -Clinical Debridement Subcutaneous -Post Debridement Size (cm) - Length 1.8 -Post Debridement Size (cm) - Width 1.2 -Post Debridement Size (cm) - Depth 0.4 -Total Square Cm 2.16 -Wound/Ulcer Outcome Not Healed Not Healed -Ulcer Cleansing Rinsed/ Irrigated with Saline -Foul Odor after Cleansing No -Bioengineered Tissue Yes -Type of bioengineered Tissue THERASKIN -Bleeding Controlled with Pressure -Offloading No -Type of Offloading Total Contact Cast (TCC) -Treatment Response Procedure Tolerated Well Pain Scale: 0-10 Numeric Is Patient Pain Free? Yes Yes Wound debrided: right third toe Laterality: Right No debridement was completed today - due to healing - Additional Wound Wound debrided: right second toe Laterality: Right Operative Diagnosis: no debridement done today due to healing - Additional Wound Wound debrided: Right great toe Laterality: Right Type of Debridement: Selective debridement Anesthesia Used: 4% Lidocaine Solution Depth: Down to and including healthy tissue, in the subcutaneous layer Percentage of wound debrided: 100 Instrument Used: - - gauze Tissue Removed: yellow slough, devitalized tissue Severity: Fat Layer Exposed Amount of bleeding with debridement: Mild Bleeding Controlled with: Compression and gauze Patient tolerated procedure: Patient tolerated procedure well - Additional Wound Wound debrided: right achilles Laterality: Right Wound Grade/Stage: Valdez grade 2 Operative Diagnosis: no debridement done. Theraskin in place and incorporating - Additional Wound Wound debrided: right heel Laterality: Right Wound Grade/Stage: Valdez grade 2 Operative Diagnosis: No debridement done. Theraskin in place and incorporating. 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 Diabetes mellitus - uncontrolled. Peripheral vascular disease - status post revascularization 08/07/18. right pat venous ulcer - healed. stage 2 pressure ulcer coccyx - healed. right 3rd toe and right second toe ulcers, right great toe Plan: Gibson's ulcers were evaluated today. There is mild improvement in his ulcers overall. Will continue to treat his toe ulcers with Aquacel Extra. Theraskin intact and incorporating into wound bed and still secure. 3-0 nylon sutures intact. A wound veil was placed over the wounds and redressed. The rest of his wounds were dressed with Aquacel for moderate drainage. Dr. Navas performed a SFA-ant. tib. bypass on his right leg on 08/07/18. Discussed offloading importance and encouraged continuing to use surgical shoe to offload his heel. Single layer tubigrip compression advised if he can tolerate this, avoidance of idle standing or sitting with legs hanging down. Encouraged improved control of his blood sugars. Encouraged him to seek consultation with pain management for his pain and gave him a 7 day RX (#56) for tramadol to use for pain as needed on 09/26/18. OARRS checked and appropriate. Encouraged to call with increased drainage, redness or fever or chills. Will f/u in 1 weekwith plan to apply Theraskin #2.
[2018-10-03 14:04] VITALS: BP 151/78; PULSE 80; RESP 18; TEMP 36.3; BMI 24.9
--- NOTE | 2018-10-03 17:51 | PCM.WC.PN ---
(1) Type 2 diabetes, uncontrolled, with ulcer of heel Status: Chronic Current Visit: Yes Code(s): E11.621 - Type 2 diabetes mellitus with foot ulcer; E11.65 - Type 2 diabetes mellitus with hyperglycemia; L97.409 - Non-pressure chronic ulcer of unspecified heel and midfoot with unspecified severity Comment: right plantar heel and right achilles (2) Varicose veins of right lower extremity with ulcer Status: Resolved Current Visit: Yes Qualifiers: Lower extremity ulceration location: other part of foot Non-pressure ulcer stage: with fat layer exposed Qualified Code(s): I83.015 - Varicose veins of right lower extremity with ulcer other part of foot; L97.512 - Non-pressure chronic ulcer of other part of right foot with fat layer exposed Code(s): I83.019 - Varicose veins of right lower extremity with ulcer of unspecified site; L97.919 - Non-pressure chronic ulcer of unspecified part of right lower leg with unspecified severity (3) Diabetes with ulcer of toe Status: Chronic Current Visit: Yes Qualifiers: Diabetes mellitus type: type 2 Laterality: right Non-pressure ulcer stage: with fat layer exposed Qualified Code(s): E11.621 - Type 2 diabetes mellitus with foot ulcer; L97.512 - Non-pressure chronic ulcer of other part of right foot with fat layer exposed Code(s): E11.621 - Type 2 diabetes mellitus with foot ulcer; L97.509 - Non-pressure chronic ulcer of other part of unspecified foot with unspecified severity (4) Peripheral vascular disease Status: Chronic Current Visit: Yes Code(s): I73.9 - Peripheral vascular disease, unspecified (5) Type II diabetes mellitus Status: Chronic Current Visit: Yes Qualifiers: Diabetes mellitus fpc insulin use: without moth exterminator use Diabetes mellitus complication status: with skin complications Diabetes mellitus complication detail: with foot ulcer Qualified Code(s): E11.621 - Type 2 diabetes mellitus with foot ulcer; L97.509 - Non-pressure chronic ulcer of other part of unspecified foot with unspecified severity Code(s): E11.9 - Type 2 diabetes mellitus without complications Type of Wound Date of Service: 10/03/18 Chief Complaint: Nonhealing ulcers right heel and toes History of Wound: This 68-year-old male is here for evaluation of an ulcer of his right heel and his right pat. He states that he has had an ulcer approx. 5 years ago of this same heel and was treated here and was healed after vascular interventions by Dr. Navas. He has noticed increased pain in his heel for the last few months and approx. beginning of May he noted an open wound to his right heel. He was using gauze but this started to irritate his skin and has been using silvadene and adaptic to the wound with tape for the last few weeks. He has not had any treatment with antibiotics for the wound. He is self-referred for treatment here. He does follow with Dr. 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 He has had procedures for his arterial disease in past to both of his lower extremities. From review of records it seems that Dr. Navas planned to do a right SFA-ant. tib bypass but it does not appear that this was done and patient denies having any bypass procedures other than his heart. It sounds like he is trying alternative treatments with supplements and chelation therapy. He also has diabetes and his last A1C several months ago was 7.2% but he stopped glyburide because he felt it was causing blisters of his legs. He does wear diabetic shoes. He has been undergoing chelation treatments by Dr. German in [place]. Dr. German prescribed him oxycodone-APAP 5/325 mg #60 which were filled on 05/22/18 for pain, he has six tablets left from this prescription, and he is asking for pain medication to treat pain from debridement. He reports having xrays done several months ago of his right heel due to pain which did not show any osteomyelitis or acute fractures. He denies fever, chills, erythema or heavy drainage. He reports significant pain and discomfort of his right heel and his entire right leg which no one can explain. Progress of Wound: Gibson is here to follow up for nonhealing ulcers of his right foot. He tolerated the dressings and tolerated the first application of Theraskin and is wearing tubigrip compression most of the time. The size of his wounds are improved. He underwent artificial bypass graft of his ant. tibial to femoral artery on 08/07/18. He had an TN postoperatively and is being treated medically. He continues to have severe pain in his ankle/heel but it has improved. He has a venous ulcer on his right second toe and great toe which are healed today. He has been trying to elevate his foot and has been using his surgical shoe to offload as well. Denies fever or chills or increased drainage. - Physical Exam Vital Signs Temp Pulse Resp BP 97.3 F L 80 18 151/78 H 10/03/18 14:04 10/03/18 14:04 10/03/18 14:04 10/03/18 14:04 General: Alert, Oriented x3, Cooperative, No apparent distress HEENT: Atraumatic, Normocephalic Oral: Moist Mucosa Extremities: Edema Skin: Ulcer/ Wound Wound Measurements and Assessment WC - Nurse 1 - General Ulcer Measurement Start: 09/19/18 14:00 Freq: Status: Active Protocol: Activity Type Activity Date Activity User E-Sign Co-Sign Detail Recorded Client Recorded Date Recorded By Document 10/03/18 14:04 DL [id number] 10/03/18 14:20 DL 10/03/18 14:04 Wound Center Nurse 1 [Ulcer Assessment] #11 Right 3rd Toe -Current Size (cm) - Length 0.1 -Current Size (cm) - Width 0.1 -Current Size (cm) - Depth 0.1 -Total Square Cm 0.01 -Photo Taken No -Exudate Amt None Present -Wound Margin Flat & Intact -Granulation Amt Large (67-100%) -Granulation Quality Pale -Necrosis Amt None Present (0 %) -Structure Exposed N/A -Texture (Shahana-wound Skin Appearance) Scarring -Moisture (Shahana-wound Skin Appearance Dry/Scaly ) -Color (Shahana-wound Skin Appearance) No Abnormality -Temperature (Shahana-wound Skin No Abnormality Appearance) (Pt Warm) -Tenderness on Palpation (Shahana-wound No Skin Appearance) -Ulcer Cleansing Wound Cleanser -Foul Odor after Cleansing No -Anesthetic Used 4% Lidocaine Solution #10- RT GR TOE DORSAL -Current Size (cm) - Length 0.1 -Current Size (cm) - Width 0.1 -Current Size (cm) - Depth 0.1 -Total Square Cm 0.01 -Photo Taken No -Exudate Amt None Present -Wound Margin Flat & Intact -Granulation Amt Small (1-33%) -Granulation Quality Pale -Necrosis Amt Small (1-33%) -Necrotic Tissue Type Adherent Slough -Structure Exposed N/A -Texture (Shahana-wound Skin Appearance) Scarring -Moisture (Shahana-wound Skin Appearance Weeping ) -Color (Shahana-wound Skin Appearance) No Abnormality -Temperature (Shahana-wound Skin No Abnormality Appearance) (Pt Warm) -Tenderness on Palpation (Shahana-wound No Skin Appearance) -Ulcer Cleansing Wound Cleanser -Foul Odor after Cleansing No -Anesthetic Used 4% Lidocaine Solution #4 RIGHT ACHILLES -Current Size (cm) - Length 0.8 -Current Size (cm) - Width 0.8 -Current Size (cm) - Depth 0.1 -Total Square Cm 0.64 -Photo Taken No -Exudate Amt None Present -Wound Margin Thickened -Granulation Amt None Present (0 %) -Necrosis Amt Medium (34-66%) -Necrotic Tissue Type Adherent Slough -Texture (Shahana-wound Skin Appearance) No Abnormality -Moisture (Shahana-wound Skin Appearance Dry/Scaly ) -Color (Shahana-wound Skin Appearance) No Abnormality -Temperature (Shahana-wound Skin No Abnormality Appearance) (Pt Warm) -Tenderness on Palpation (Shahana-wound No Skin Appearance) -Ulcer Cleansing Wound Cleanser -Foul Odor after Cleansing No -Anesthetic Used 4% Lidocaine Solution #2 R Heel -Current Size (cm) - Length 0.8 -Current Size (cm) - Width 0.5 -Current Size (cm) - Depth 0.1 -Total Square Cm 0.40 -Photo Taken No -Exudate Amt None Present -Wound Margin Thickened -Granulation Amt Large (67-100%) -Granulation Quality Ewing -Necrosis Amt None Present (0 %) -Structure Exposed N/A -Texture (Shahana-wound Skin Appearance) No Abnormality -Moisture (Shahana-wound Skin Appearance Dry/Scaly ) -Color (Shahana-wound Skin Appearance) No Abnormality -Temperature (Shahana-wound Skin No Abnormality Appearance) (Pt Warm) -Tenderness on Palpation (Shahana-wound No Skin Appearance) -Ulcer Cleansing Wound Cleanser -Foul Odor after Cleansing No -Anesthetic Used 4% Lidocaine Solution [Edema Assessment] -Right Calf (cm) 28.8 -Right Ankle (cm) 20.2 WC - Nurse 2 - General Ulcer CM Notes Start: 09/19/18 14:00 Freq: Status: Active Protocol: Activity Type Activity Date Activity User E-Sign Co-Sign Detail Recorded Client Recorded Date Recorded By Document 10/03/18 14:42 DV [id number] 10/03/18 15:02 DV 10/03/18 14:42 Wound Center Nurse 2 [Procedure/Treatment] #11 Right 3rd Toe -Time 14:42 -Correct Patient Yes -Correct Side, Site, Position Yes -Correct Procedure No -Procedure Performed No -Post Debridement Size (cm) - Length 0 -Post Debridement Size (cm) - Width 0 -Post Debridement Size (cm) - Depth 0 -Total Square Cm 0 -Wound/Ulcer Outcome Healed- Epithelialized #10- RT GR TOE DORSAL -Time 14:43 -Correct Patient Yes -Correct Side, Site, Position Yes -Correct Procedure No -Procedure Performed No -Post Debridement Size (cm) - Length 0 -Post Debridement Size (cm) - Width 0 -Post Debridement Size (cm) - Depth 0 -Total Square Cm 0 -Wound/Ulcer Outcome Healed- Epithelialized #4 RIGHT ACHILLES -Time 14:46 -Correct Patient Yes -Correct Side, Site, Position Yes -Correct Procedure Yes -Procedure Performed Yes -Type of Procedure Debridement -Clinical Debridement Subcutaneous -Post Debridement Size (cm) - Length 0.9 -Post Debridement Size (cm) - Width 0.9 -Post Debridement Size (cm) - Depth 0.2 -Total Square Cm 0.81 -Wound/Ulcer Outcome Not Healed -Ulcer Cleansing Rinsed/ Irrigated with Saline -Foul Odor after Cleansing No -Bioengineered Tissue Yes -Type of bioengineered Tissue THERASKIN -Expiration Date 11/09/21 -Product Lot Number [id number] -Percent Used 25 -Saline Lot Number [id number] -Injectable Lidocaine w/ Epi (%) 1 -Bleeding Controlled with Pressure -Offloading No -Treatment Response Procedure Tolerated Well #2 R Heel -Time 14:48 -Correct Patient Yes -Correct Side, Site, Position Yes -Correct Procedure Yes -Procedure Performed Yes -Type of Procedure Debridement -Clinical Debridement Subcutaneous -Post Debridement Size (cm) - Length 1.0 -Post Debridement Size (cm) - Width 1.0 -Post Debridement Size (cm) - Depth 0.3 -Total Square Cm 1.00 -Wound/Ulcer Outcome Not Healed -Ulcer Cleansing Rinsed/ Irrigated with Saline -Foul Odor after Cleansing No -Bioengineered Tissue Yes -Type of bioengineered Tissue THERASKIN -Expiration Date 11/09/21 -Product Lot Number [id number] -Percent Used 25 -Saline Lot Number [id number] -Bleeding Controlled with Pressure -Offloading No -Treatment Response Procedure Tolerated Well [See Physician Procedure note for Specifics] Pain Scale: 0-10 Numeric [Pain] -Is Patient Pain Free? Yes Psych/Mental Status: Normal Affect, Appropriate Debridement Note Post-Debridement Measurements/Treatment WC - Nurse 2 - General Ulcer CM Notes Start: 09/19/18 14:00 Freq: Status: Active Protocol: Activity Type Activity Date Activity User E-Sign Co-Sign Detail Recorded Client Recorded Date Recorded By Document 09/19/18 15:02 DV [id number] 09/19/18 15:36 DV Document 09/26/18 14:51 DV [id number] 09/26/18 14:53 DV Document 10/03/18 14:42 DV [id number] 10/03/18 15:02 DV 09/19/18 09/26/18 10/03/18 15:02 14:51 14:42 Wound Center Nurse 2 #11 Right 3rd Toe -Time 15:28 14:51 14:42 -Correct Patient Yes Yes Yes -Correct Side, Site, Position Yes Yes Yes -Correct Procedure Yes No -Procedure Performed Yes No No -Type of Procedure Debridement -Clinical Debridement Subcutaneous -Post Debridement Size (cm) - Length 0.4 0 -Post Debridement Size (cm) - Width 0.5 0 -Post Debridement Size (cm) - Depth 0.1 0 -Total Square Cm 0.20 0 -Wound/Ulcer Outcome Not Healed Not Healed Healed- Epithelialized -Ulcer Cleansing Rinsed/ Irrigated with Saline -Foul Odor after Cleansing No -Bioengineered Tissue No -Bleeding Controlled with Pressure -Offloading Yes -Type of Offloading Total Contact Cast (TCC) -Treatment Response Procedure Tolerated Well #10- RT GR TOE DORSAL -Time 15:27 14:52 14:43 -Correct Patient Yes Yes Yes -Correct Side, Site, Position Yes Yes Yes -Correct Procedure Yes No No -Procedure Performed Yes No No -Type of Procedure Debridement -Clinical Debridement Subcutaneous -Post Debridement Size (cm) - Length 0.4 0 -Post Debridement Size (cm) - Width 0.8 0 -Post Debridement Size (cm) - Depth 0.1 0 -Total Square Cm 0.32 0 -Wound/Ulcer Outcome Not Healed Not Healed Healed- Epithelialized -Ulcer Cleansing Rinsed/ Irrigated with Saline -Foul Odor after Cleansing No -Bioengineered Tissue No -Bleeding Controlled with Pressure -Offloading Yes -Type of Offloading Total Contact Cast (TCC) -Treatment Response Procedure Tolerated Well #6 Right 2nd Toe -Time 15:27 -Correct Patient Yes -Correct Side, Site, Position Yes -Procedure Performed No -Post Debridement Size (cm) - Length 0 -Post Debridement Size (cm) - Width 0 -Post Debridement Size (cm) - Depth 0 -Total Square Cm 0 -Wound/Ulcer Outcome Healed- Epithelialized -Treatment Response Procedure Tolerated Well #4 RIGHT ACHILLES -Time 15:25 14:52 14:46 -Correct Patient Yes Yes Yes -Correct Side, Site, Position Yes Yes Yes -Correct Procedure Yes No Yes -Procedure Performed Yes No Yes -Type of Procedure Debridement Debridement -Clinical Debridement Subcutaneous Subcutaneous -Post Debridement Size (cm) - Length 1.0 0.9 -Post Debridement Size (cm) - Width 1.1 0.9 -Post Debridement Size (cm) - Depth 0.3 0.2 -Total Square Cm 1.10 0.81 -Wound/Ulcer Outcome Not Healed Not Healed Not Healed -Ulcer Cleansing Rinsed/ Rinsed/ Irrigated with Irrigated with Saline Saline -Foul Odor after Cleansing No No -Bioengineered Tissue Yes Yes -Type of bioengineered Tissue THERASKIN THERASKIN -Expiration Date 11/09/21 -Product Lot Number [id number] -Percent Used 25 -Saline Lot Number [id number] -Injectable Lidocaine w/ Epi (%) 1 -Bleeding Controlled with Pressure Pressure -Offloading No No -Type of Offloading Total Contact Cast (TCC) -Treatment Response Procedure Procedure Tolerated Well Tolerated Well #2 R Heel -Time 15:20 14:52 14:48 -Correct Patient Yes Yes Yes -Correct Side, Site, Position Yes Yes Yes -Correct Procedure Yes No Yes -Procedure Performed Yes No Yes -Type of Procedure Debridement Debridement -Clinical Debridement Subcutaneous Subcutaneous -Post Debridement Size (cm) - Length 1.8 1.0 -Post Debridement Size (cm) - Width 1.2 1.0 -Post Debridement Size (cm) - Depth 0.4 0.3 -Total Square Cm 2.16 1.00 -Wound/Ulcer Outcome Not Healed Not Healed Not Healed -Ulcer Cleansing Rinsed/ Rinsed/ Irrigated with Irrigated with Saline Saline -Foul Odor after Cleansing No No -Bioengineered Tissue Yes Yes -Type of bioengineered Tissue THERASKIN THERASKIN -Expiration Date 11/09/21 -Product Lot Number [id number] -Percent Used 25 -Saline Lot Number [id number] -Bleeding Controlled with Pressure Pressure -Offloading No No -Type of Offloading Total Contact Cast (TCC) -Treatment Response Procedure Procedure Tolerated Well Tolerated Well Pain Scale: 0-10 Numeric Is Patient Pain Free? Yes Yes Yes Wound debrided: right third toe Laterality: Right No debridement was completed today - it is healed - Additional Wound Wound debrided: right great toe dorsal Laterality: Right Operative Diagnosis: Ulcer is healed - Additional Wound Wound debrided: right achilles Laterality: Right Wound Grade/Stage: Grade 2 Type of Debridement: Excisional debridement Anesthesia Used: 4% Lidocaine Solution, 5% Lidocaine Gel, Cetacaine - 1% Depth: Down to and including healthy tissue, in the subcutaneous layer Percentage of wound debrided: 100 Instrument Used: 7mm curette Tissue Removed: yellow slough, devitalized tissue, residual theraskin Severity: Fat Layer Exposed Amount of bleeding with debridement: Mild Bleeding Controlled with: Compression and gauze Patient tolerated procedure: Patient tolerated procedure well - Additional Wound Wound debrided: Right heel Laterality: Right Wound Grade/Stage: Grade 2 Type of Debridement: Excisional debridement Anesthesia Used: 4% Lidocaine Solution, 5% Lidocaine Gel, Cetacaine - 1% Depth: Down to and including healthy tissue, in the subcutaneous layer Percentage of wound debrided: 100 Instrument Used: 7mm curette Tissue Removed: yellow slough, devitalized tissue Severity: Fat Layer Exposed Amount of bleeding with debridement: Mild Bleeding Controlled with: Compression and gauze Patient tolerated procedure: Patient tolerated procedure well Assessment/Plan Active Problems Type 2 diabetes, uncontrolled, with ulcer of heel (Chronic) right plantar heel and right achilles Diabetes with ulcer of toe (Chronic) Peripheral vascular disease (Chronic) Type II diabetes mellitus (Chronic) Assessment: 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 Diabetes mellitus - uncontrolled. Peripheral vascular disease - status post revascularization 08/07/18. right pat venous ulcer - healed. stage 2 pressure ulcer coccyx - healed. right 3rd toe and right second toe ulcers, right great toe - healed Plan: Gibson's ulcers were evaluated and debrided today. There is mild improvement in his Achilles ulcer but his heel is much improved. His toe ulcers are healed. Wound culture taken of Achilles to ensure resolution of infection. Theraskin #2 was applied to his right heel and right Achilles ulcers after debridement per appliances sample maker guidelines and then secured with 3-0 nylon sutures and dermabond. A wound veil was placed over the wounds and then secured with steri-strips. Secondary dressings applied with gauze and ABD. Dr. Navas performed a SFA-ant. tib. bypass on his right leg on 08/07/18. Discussed offloading importance and encouraged continuing to use surgical shoe to offload his heel. Single layer tubigrip compression advised if he can tolerate this, avoidance of idle standing or sitting with legs hanging down. Encouraged improved control of his blood sugars. Encouraged him to seek consultation with pain management for his pain and gave him a 7 day RX (#56) for tramadol to use for pain as needed on 09/26/18. [place]ARRS checked and appropriate. Encouraged to call with increased drainage, redness or fever or chills. Will f/u in 2 weeks with plan to apply Theraskin #3.
--- NOTE | 2018-10-03 17:56 | PN.PCM_ITS ---
(1) Type 2 diabetes, uncontrolled, with ulcer of heel Status: Chronic Current Visit: Yes Code(s): E11.621 - Type 2 diabetes mellitus with foot ulcer; E11.65 - Type 2 diabetes mellitus with hyperglycemia; L97.409 - Non-pressure chronic ulcer of unspecified heel and midfoot with unspecified severity Comment: right plantar heel and right achilles (2) Varicose veins of right lower extremity with ulcer Status: Resolved Current Visit: Yes Qualifiers: Lower extremity ulceration location: other part of foot Non-pressure ulcer stage: with fat layer exposed Qualified Code(s): I83.015 - Varicose veins of right lower extremity with ulcer other part of foot; L97.512 - Non-pressure chronic ulcer of other part of right foot with fat layer exposed Code(s): I83.019 - Varicose veins of right lower extremity with ulcer of unspecified site; L97.919 - Non-pressure chronic ulcer of unspecified part of right lower leg with unspecified severity (3) Diabetes with ulcer of toe Status: Chronic Current Visit: Yes Qualifiers: Diabetes mellitus type: type 2 Laterality: right Non-pressure ulcer stage: with fat layer exposed Qualified Code(s): E11.621 - Type 2 diabetes mellitus with foot ulcer; L97.512 - Non-pressure chronic ulcer of other part of right foot with fat layer exposed Code(s): E11.621 - Type 2 diabetes mellitus with foot ulcer; L97.509 - Non- pressure chronic ulcer of other part of unspecified foot with unspecified severity (4) Peripheral vascular disease Status: Chronic Current Visit: Yes Code(s): I73.9 - Peripheral vascular disease, unspecified (5) Type II diabetes mellitus Status: Chronic Current Visit: Yes Qualifiers: Diabetes mellitus senior care insulin use: without termite treater helper use Diabetes mellitus complication status: with skin complications Diabetes mellitus complication detail: with foot ulcer Qualified Code(s): E11.621 - Type 2 diabetes mellitus with foot ulcer; L97.509 - Non-pressure chronic ulcer of other part of unspecified foot with unspecified severity Code(s): E11.9 - Type 2 diabetes mellitus without complications Type of Wound Date of Service: 10/03/18 Chief Complaint: Nonhealing ulcers right heel and toes History of Wound: This 68-year-old male is here for evaluation of an ulcer of his right heel and his right pat. He states that he has had an ulcer approx. 5 years ago of this same heel and was treated here and was healed after vascular interventions by Dr. Navas. He has noticed increased pain in his heel for the last few months and approx. beginning of May he noted an open wound to his right heel. He was using gauze but this started to irritate his skin and has been using silvadene and adaptic to the wound with tape for the last few weeks. He has not had any treatment with antibiotics for the wound. He is self-referred for treatment here. He does follow with Dr. 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 He has had procedures for his arterial disease in past to both of his lower extremities. From review of records it seems that Dr. Navas planned to do a right SFA-ant. tib bypass but it does not appear that this was done and patient denies having any bypass procedures other than his heart. It sounds like he is trying alternative treatments with supplements and chelation therapy. He also has diabetes and his last A1C several months ago was 7.2% but he stopped glyburide because he felt it was causing blisters of his legs. He does wear mal betic shoes. He has been undergoing chelation treatments by Dr. German in [place]. Dr. German prescribed him oxycodone-APAP 5/325 mg #60 which were filled on 05/22/18 for pain, he has six tablets left from this prescription, and he is asking for pain medication to treat pain from debridement. He reports having xrays done several months ago of his right heel due to pain which did not show any osteomyelitis or acute fractures. He denies fever, chills, erythema or heavy drainage. He reports significant pain and discomfort of his right heel and his entire right leg which no one can explain. Progress of Wound: Gibson is here to follow up for nonhealing ulcers of his right foot. He tolerated the dressings and tolerated the first application of Theraskin and is wearing tubigrip compression most of the time. The size of his wounds are improved. He underwent artificial bypass graft of his ant. tibial to femoral artery on 08/07/18. He had an [place] postoperatively and is being treated medically. He continues to have severe pain in his ankle/heel but it has improved. He has a venous ulcer on his right second toe and great toe which are healed today. He has been trying to elevate his foot and has been using his surgical shoe to offload as well. Denies fever or chills or increased drainage. - Physical Exam Vital Signs Temp Pulse Resp BP 97.3 F L 80 18 151/78 H 10/03/18 14:04 10/03/18 14:04 10/03/18 14:04 10/03/18 14:04 General: Alert, Oriented x3, Cooperative, No apparent distress HEENT: Atraumatic, Normocephalic Oral: Moist Mucosa Extremities: Edema Skin: Ulcer/ Wound Wound Measurements and Assessment WC - Nurse 1 - General Ulcer Measurement Start: 09/19/18 14:00 Freq: Status: Active Protocol: Activity Type Activity Date Activity User E-Sign Co-Sign Detail Recorded Client Recorded Date Recorded By Document 10/03/18 14:04 DL [id number] 10/03/18 14:20 DL 10/03/18 14:04 Wound Center Nurse 1 [Ulcer Assessment] #11 Right 3rd Toe -Current Size (cm) - Length 0.1 -Current Size (cm) - Width 0.1 -Current Size (cm) - Depth 0.1 -Total Square Cm 0.01 -Photo Taken No -Exudate Amt None Present -Wound Margin Flat & Intact -Granulation Amt Large (67-100%) -Granulation Quality Pale -Necrosis Amt None Present (0 %) -Structure Exposed N/A -Texture (Shahana-wound Skin Appearance) Scarring -Moisture (Shahana-wound Skin Appearance Dry/Scaly ) -Color (Shahana-wound Skin Appearance) No Abnormality -Temperature (Shahana-wound Skin No Abnormality Appearance) (Pt Warm) -Tenderness on Palpation (Shahana-wound No Skin Appearance) -Ulcer Cleansing Wound Cleanser -Foul Odor after Cleansing No -Anesthetic Used 4% Lidocaine Solution #10- RT GR TOE DORSAL -Current Size (cm) - Length 0.1 -Current Size (cm) - Width 0.1 -Current Size (cm) - Depth 0.1 -Total Square Cm 0.01 -Photo Taken No -Exudate Amt None Present -Wound Margin Flat & Intact -Granulation Amt Small (1-33%) -Granulation Quality Pale -Necrosis Amt Small (1-33%) -Necrotic Tissue Type Adherent Slough -Structure Exposed N/A -Texture (Shahana-wound Skin Appearance) Scarring -Moisture (Shahana-wound Skin Appearance Weeping ) -Color (Shahana-wound Skin Appearance) No Abnormality -Temperature (Shahana-wound Skin No Abnormality Appearance) (Pt Warm) -Tenderness on Palpation (Shahana-wound No Skin Appearance) -Ulcer Cleansing Wound Cleanser -Foul Odor after Cleansing No -Anesthetic Used 4% Lidocaine Solution #4 RIGHT ACHILLES -Current Size (cm) - Length 0.8 -Current Size (cm) - Width 0.8 -Current Size (cm) - Depth 0.1 -Total Square Cm 0.64 -Photo Taken No -Exudate Amt None Present -Wound Margin Thickened -Granulation Amt None Present (0 %) -Necrosis Amt Medium (34-66%) -Necrotic Tissue Type Adherent Slough -Texture (Shahana-wound Skin Appearance) No Abnormality -Moisture (Shahana-wound Skin Appearance Dry/Scaly ) -Color (Shahana-wound Skin Appearance) No Abnormality -Temperature (Shahana-wound Skin No Abnormality Appearance) (Pt Warm) -Tenderness on Palpation (Shahana-wound No Skin Appearance) -Ulcer Cleansing Wound Cleanser -Foul Odor after Cleansing No -Anesthetic Used 4% Lidocaine Solution #2 R Heel -Current Size (cm) - Length 0.8 -Current Size (cm) - Width 0.5 -Current Size (cm) - Depth 0.1 -Total Square Cm 0.40 -Photo Taken No -Exudate Amt None Present -Wound Margin Thickened -Granulation Amt Large (67-100%) -Granulation Quality [place] -Necrosis Amt None Present (0 %) -Structure Exposed N/A -Texture (Shahana-wound Skin Appearance) No Abnormality -Moisture (Shahana-wound Skin Appearance Dry/Scaly ) -Color (Shahana-wound Skin Appearance) No Abnormality -Temperature (Shahana-wound Skin No Abnormality Appearance) (Pt Warm) -Tenderness on Palpation (Shahana-wound No Skin Appearance) -Ulcer Cleansing Wound Cleanser -Foul Odor after Cleansing No -Anesthetic Used 4% Lidocaine Solution [Edema Assessment] -Right Calf (cm) 28.8 -Right Ankle (cm) 20.2 WC - Nurse 2 - General Ulcer CM Notes Start: 09/19/18 14:00 Freq: Status: Active Protocol: Activity Type Activity Date Activity User E-Sign Co-Sign Detail Recorded Client Recorded Date Recorded By Document 10/03/18 14:42 DV [id number] 10/03/18 15:02 DV 10/03/18 14:42 Wound Center Nurse 2 [Procedure/Treatment] #11 Right 3rd Toe -Time 14:42 -Correct Patient Yes -Correct Side, Site, Position Yes -Correct Procedure No -Procedure Performed No -Post Debridement Size (cm) - Length 0 -Post Debridement Size (cm) - Width 0 -Post Debridement Size (cm) - Depth 0 -Total Square Cm 0 -Wound/Ulcer Outcome Healed- Epithelialized #10- RT GR TOE DORSAL -Time 14:43 -Correct Patient Yes -Correct Side, Site, Position Yes -Correct Procedure No -Procedure Performed No -Post Debridement Size (cm) - Length 0 -Post Debridement Size (cm) - Width 0 -Post Debridement Size (cm) - Depth 0 -Total Square Cm 0 -Wound/Ulcer Outcome Healed- Epithelialized #4 RIGHT ACHILLES -Time 14:46 -Correct Patient Yes -Correct Side, Site, Position Yes -Correct Procedure Yes -Procedure Performed Yes -Type of Procedure Debridement -Clinical Debridement Subcutaneous -Post Debridement Size (cm) - Length 0.9 -Post Debridement Size (cm) - Width 0.9 -Post Debridement Size (cm) - Depth 0.2 -Total Square Cm 0.81 -Wound/Ulcer Outcome Not Healed -Ulcer Cleansing Rinsed/ Irrigated with Saline -Foul Odor after Cleansing No -Bioengineered Tissue Yes -Type of bioengineered Tissue THERASKIN -Expiration Date 11/09/21 -Product Lot Number [id number] -Percent Used 25 -Saline Lot Number [id number] -Injectable Lidocaine w/ Epi (%) 1 -Bleeding Controlled with Pressure -Offloading No -Treatment Response Procedure Tolerated Well #2 R Heel -Time 14:48 -Correct Patient Yes -Correct Side, Site, Position Yes -Correct Procedure Yes -Procedure Performed Yes -Type of Procedure Debridement -Clinical Debridement Subcutaneous -Post Debridement Size (cm) - Length 1.0 -Post Debridement Size (cm) - Width 1.0 -Post Debridement Size (cm) - Depth 0.3 -Total Square Cm 1.00 -Wound/Ulcer Outcome Not Healed -Ulcer Cleansing Rinsed/ Irrigated with Saline -Foul Odor after Cleansing No -Bioengineered Tissue Yes -Type of bioengineered Tissue THERASKIN -Expiration Date 11/09/21 -Product Lot Number [id number] -Percent Used 25 -Saline Lot Number [id number] -Bleeding Controlled with Pressure -Offloading No -Treatment Response Procedure Tolerated Well [See Physician Procedure note for Specifics] Pain Scale: 0-10 Numeric [Pain] -Is Patient Pain Free? Yes Psych/Mental Status: Normal Affect, Appropriate Debridement Note Post-Debridement Measurements/Treatment WC - Nurse 2 - General Ulcer CM Notes Start: 09/19/18 14:00 Freq: Status: Active Protocol: Activity Type Activity Date Activity User E-Sign Co-Sign Detail Recorded Client Recorded Date Recorded By Document 09/19/18 15:02 DV [id number] 09/19/18 15:36 DV Document 09/26/18 14:51 DV [id number] 09/26/18 14:53 DV Document 10/03/18 14:42 DV [id number] 10/03/18 15:02 DV 09/19/18 09/26/18 10/03/18 15:02 14:51 14:42 Wound Center Nurse 2 #11 Right 3rd Toe -Time 15:28 14:51 14:42 -Correct Patient Yes Yes Yes -Correct Side, Site, Position Yes Yes Yes -Correct Procedure Yes No -Procedure Performed Yes No No -Type of Procedure Debridement -Clinical Debridement Subcutaneous -Post Debridement Size (cm) - Length 0.4 0 -Post Debridement Size (cm) - Width 0.5 0 -Post Debridement Size (cm) - Depth 0.1 0 -Total Square Cm 0.20 0 -Wound/Ulcer Outcome Not Healed Not Healed Healed- Epithelialized -Ulcer Cleansing Rinsed/ Irrigated with Saline -Foul Odor after Cleansing No -Bioengineered Tissue No -Bleeding Controlled with Pressure -Offloading Yes -Type of Offloading Total Contact Cast (TCC) -Treatment Response Procedure Tolerated Well #10- RT GR TOE DORSAL -Time 15:27 14:52 14:43 -Correct Patient Yes Yes Yes -Correct Side, Site, Position Yes Yes Yes -Correct Procedure Yes No No -Procedure Performed Yes No No -Type of Procedure Debridement -Clinical Debridement Subcutaneous -Post Debridement Size (cm) - Length 0.4 0 -Post Debridement Size (cm) - Width 0.8 0 -Post Debridement Size (cm) - Depth 0.1 0 -Total Square Cm 0.32 0 -Wound/Ulcer Outcome Not Healed Not Healed Healed- Epithelialized -Ulcer Cleansing Rinsed/ Irrigated with Saline -Foul Odor after Cleansing No -Bioengineered Tissue No -Bleeding Controlled with Pressure -Offloading Yes -Type of Offloading Total Contact Cast (TCC) -Treatment Response Procedure Tolerated Well #6 Right 2nd Toe -Time 15:27 -Correct Patient Yes -Correct Side, Site, Position Yes -Procedure Performed No -Post Debridement Size (cm) - Length 0 -Post Debridement Size (cm) - Width 0 -Post Debridement Size (cm) - Depth 0 -Total Square Cm 0 -Wound/Ulcer Outcome Healed- Epithelialized -Treatment Response Procedure Tolerated Well #4 RIGHT ACHILLES -Time 15:25 14:52 14:46 -Correct Patient Yes Yes Yes -Correct Side, Site, Position Yes Yes Yes -Correct Procedure Yes No Yes -Procedure Performed Yes No Yes -Type of Procedure Debridement Debridement -Clinical Debridement Subcutaneous Subcutaneous -Post Debridement Size (cm) - Length 1.0 0.9 -Post Debridement Size (cm) - Width 1.1 0.9 -Post Debridement Size (cm) - Depth 0.3 0.2 -Total Square Cm 1.10 0.81 -Wound/Ulcer Outcome Not Healed Not Healed Not Healed -Ulcer Cleansing Rinsed/ Rinsed/ Irrigated with Irrigated with Saline Saline -Foul Odor after Cleansing No No -Bioengineered Tissue Yes Yes -Type of bioengineered Tissue THERASKIN THERASKIN -Expiration Date 11/09/21 -Product Lot Number [id number] -Percent Used 25 -Saline Lot Number [id number] -Injectable Lidocaine w/ Epi (%) 1 -Bleeding Controlled with Pressure Pressure -Offloading No No -Type of Offloading Total Contact Cast (TCC) -Treatment Response Procedure Procedure Tolerated Well Tolerated Well #2 R Heel -Time 15:20 14:52 14:48 -Correct Patient Yes Yes Yes -Correct Side, Site, Position Yes Yes Yes -Correct Procedure Yes No Yes -Procedure Performed Yes No Yes -Type of Procedure Debridement Debridement -Clinical Debridement Subcutaneous Subcutaneous -Post Debridement Size (cm) - Length 1.8 1.0 -Post Debridement Size (cm) - Width 1.2 1.0 -Post Debridement Size (cm) - Depth 0.4 0.3 -Total Square Cm 2.16 1.00 -Wound/Ulcer Outcome Not Healed Not Healed Not Healed -Ulcer Cleansing Rinsed/ Rinsed/ Irrigated with Irrigated with Saline Saline -Foul Odor after Cleansing No No -Bioengineered Tissue Yes Yes -Type of bioengineered Tissue THERASKIN THERASKIN -Expiration Date 11/09/21 -Product Lot Number [id number] -Percent Used 25 -Saline Lot Number [id number] -Bleeding Controlled with Pressure Pressure -Offloading No No -Type of Offloading Total Contact Cast (TCC) -Treatment Response Procedure Procedure Tolerated Well Tolerated Well Pain Scale: 0-10 Numeric Is Patient Pain Free? Yes Yes Yes Wound debrided: right third toe Laterality: Right No debridement was completed today - it is healed - Additional Wound Wound debrided: right great toe dorsal Laterality: Right Operative Diagnosis: Ulcer is healed - Additional Wound Wound debrided: right achilles Laterality: Right Wound Grade/Stage: Grade 2 Type of Debridement: Excisional debridement Anesthesia Used: 4% Lidocaine Solution, 5% Lidocaine Gel, Cetacaine - 1% Depth: Down to and including healthy tissue, in the subcutaneous layer Percentage of wound debrided: 100 Instrument Used: 7mm curette Tissue Removed: yellow slough, devitalized tissue, residual theraskin Severity: Fat Layer Exposed Amount of bleeding with debridement: Mild Bleeding Controlled with: Compression and gauze Patient tolerated procedure: Patient tolerated procedure well - Additional Wound Wound debrided: Right heel Laterality: Right Wound Grade/Stage: Grade 2 Type of Debridement: Excisional debridement Anesthesia Used: 4% Lidocaine Solution, 5% Lidocaine Gel, Cetacaine - 1% Depth: Down to and including healthy tissue, in the subcutaneous layer Percentage of wound debrided: 100 Instrument Used: 7mm curette Tissue Removed: yellow slough, devitalized tissue Severity: Fat Layer Exposed Amount of bleeding with debridement: Mild Bleeding Controlled with: Compression and gauze Patient tolerated procedure: Patient tolerated procedure well Assessment/Plan Active Problems Type 2 diabetes, uncontrolled, with ulcer of heel (Chronic) right plantar heel and right achilles Diabetes with ulcer of toe (Chronic) Peripheral vascular disease (Chronic) Type II diabetes mellitus (Chronic) Assessment: 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 Diabetes mellitus - uncontrolled. Peripheral vascular disease - status post revascularization 08/07/18. right pat venous ulcer - healed. stage 2 pressure ulcer coccyx - healed. right 3rd toe and right second toe ulcers, right great toe - healed Plan: Gibson's ulcers were evaluated and debrided today. There is mild improvement in his Achilles ulcer but his heel is much improved. His toe ulcers are healed. Wound culture taken of Achilles to ensure resolution of infection. Theraskin #2 was applied to his right heel and right Achilles ulcers after debridement per lens polisher hand guidelines and then secured with 3-0 nylon sutures and dermabond. A wound veil was placed over the wounds and then secured with steri-strips. Secondary dressings applied with gauze and ABD. Dr. Navas performed a SFA-ant. tib. bypass on his right leg on 08/07/18. Discussed offloading importance and encouraged continuing to use surgical shoe to offload his heel. Single layer tubigrip compression advised if he can tolerate this, avoidance of idle standing or sitting with legs hanging down. Encouraged improved control of his blood sugars. Encouraged him to seek consultation with pain management for his pain and gave him a 7 day RX (#56) for tramadol to use for pain as needed on 09/26/18. [place]ARRS checked and appropriate. Encouraged to call with increased drainage, redness or fever or chills. Will f/u in 2 weeks with plan to apply Theraskin #3.
[2018-10-03 19:04] LABS: M R Staph aureus DNA By PCR Negative (Negative)
[2018-10-03 19:05] LABS: Probe Check PASS; Specimen Processing Control PASS; Staph aureus DNA By PCR NEGATIVE (Negative)
[2018-10-10 10:28] VITALS: BP 127/74; PULSE 92; RESP 16; TEMP 36.6; BMI 24.9
== END 2018-10-14 23:59 ==
LOC: WC 14:00
PROVIDERS: Family Provider Family Medicine; PCP Family Medicine; Visit Provider Family Medicine
DX: E11.621 Type 2 diabetes mellitus with foot ulcer (principal); E11.622 Type 2 diabetes mellitus with other skin ulcer; E11.65 Type 2 diabetes mellitus with hyperglycemia; I83.015 Varicose veins of right lower extremity with ulcer other part of foot; L97.512 Non-pressure chronic ulcer of other part of right foot with fat layer exposed; L97.412 Non-pressure chronic ulcer of right heel and midfoot with fat layer exposed; L97.312 Non-pressure chronic ulcer of right ankle with fat layer exposed; E11.51 Type 2 diabetes mellitus with diabetic peripheral angiopathy without gangrene; E11.40 Type 2 diabetes mellitus with diabetic neuropathy, unspecified; I25.2 Old myocardial infarction
CPT/HCPCS: 15275; 87070; 87075; 87077; 87186; 87205; 87640; 99212; 99213; Q4121; G0463

== ENCOUNTER → 2018-10-17 | Outpatient (CLI) | payer MEDICARE, OTHER, SELFPAY ==
[2018-10-17 14:10] VITALS: BMI 24.9
== END | disposition home or self-care (01) ==
LOC: LABSPEC 16:49
PROVIDERS: Family Provider Family Medicine; PCP Family Medicine; Referring Provider Family Medicine; Visit Provider Family Medicine
DX: E11.621 Type 2 diabetes mellitus with foot ulcer (principal); E11.51 Type 2 diabetes mellitus with diabetic peripheral angiopathy without gangrene; E11.65 Type 2 diabetes mellitus with hyperglycemia; L97.412 Non-pressure chronic ulcer of right heel and midfoot with fat layer exposed; E11.622 Type 2 diabetes mellitus with other skin ulcer; L97.312 Non-pressure chronic ulcer of right ankle with fat layer exposed; I25.2 Old myocardial infarction; L97.519 Non-pressure chronic ulcer of other part of right foot with unspecified severity
CPT/HCPCS: 11042; 87070; 87075; 87077; 87186; 87205

== ENCOUNTER 2018-11-14 15:15 | Outpatient (RCR) | payer MEDICARE, OTHER, SELFPAY ==
[2018-10-15 01:09] VITALS: BP 127/74; PULSE 92; RESP 16; TEMP 36.6
[2018-10-17 14:10] VITALS: BP 149/80; PULSE 75; RESP 18; TEMP 36.3; BMI 24.9
--- NOTE | 2018-10-17 18:28 | PN.PCM_ITS ---
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 He states that he has had an ulcer approx. 5 years ago of this same heel and was treated here and was healed after vascular interventions by Dr. Navas. He has noticed increased pain in his heel for the last few months and approx. beginning of May he noted an open wound to his right heel. He was using gauze but this started to irritate his skin and has been using silvadene and adaptic to the wound with tape for the last few weeks. He has not had any treatment with antibiotics for the wound. He is self-referred for treatment here. He does follow with Dr. 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 He has had procedures for his arterial disease in past to both of his lower extremities. From review of records it seems that Dr. Navas planned to do a right SFA-ant. tib bypass but it does not appear that this was done and patient denies having any bypass procedures other than his heart. It sounds like he is trying alternative treatments with supplements and chelation therapy. He also has diabetes and his last A1C several months ago was 7.2% but he stopped glyburide because he felt it was causing blisters of his legs. He does wear diabetic shoes. He has been undergoing chelation treatments by Dr. German in [place]. Dr. German prescribed him oxycodone-APAP 5/325 mg #60 which were filled on 05/22/18 for pain, he has six tablets left from this prescription, and he is asking for pain medication to treat pain from debridement. He reports having xrays done several months ago of his right heel due to pain which did not show any osteomyelitis or acute fractures. He denies fever, chills, erythema or heavy drainage. He reports significant pain and discomfort of his right heel and his entire right leg which no one can explain. Progress of Wound: Gibson is here to follow up for nonhealing ulcers of his right foot. He tolerated the dressings and tolerated the second application of Theraskin and is wearing tubigrip compression most of the time. The size of his ulcers are improved but there was a large amount of maceration present surrounding the ulcers today. He underwent artificial bypass graft of his ant. tibial to femoral artery on 08/07/18. He had an ND postoperatively and is being treated medically. He continues to have severe pain in his ankle/heel but it has improved. He has been trying to elevate his foot and has been using his surgical shoe to offload as well. Denies fever or chills or increased drainage. - Physical Exam Vital Signs Temp Pulse Resp BP 97.3 F L 75 18 149/80 H 10/17/18 14:10 10/17/18 14:10 10/17/18 14:10 10/17/18 14:10 General: Alert, Oriented x3, Cooperative, No apparent distress HEENT: Atraumatic, Normocephalic Oral: Moist Mucosa Extremities: Edema Skin: Ulcer/ Wound Wound Measurements and Assessment WC - Nurse 1 - General Ulcer Measurement Start: 10/17/18 14:10 Freq: Status: Active Protocol: Activity Type Activity Date Activity User E-Sign Co-Sign Detail Recorded Client Recorded Date Recorded By Document 10/17/18 14:10 DL [id number] 10/17/18 14:21 DL 10/17/18 14:10 Wound Center Nurse 1 [Ulcer Assessment] #6 Right 2nd Toe -Current Size (cm) - Length 0 -Current Size (cm) - Width 0 -Current Size (cm) - Depth 0 -Total Square Cm 0 -Photo Taken No #4 RIGHT ACHILLES -Current Size (cm) - Length 0.1 -Current Size (cm) - Width 0.1 -Current Size (cm) - Depth 0.1 -Total Square Cm 0.01 -Photo Taken No -Exudate Amt Small -Exudate Type Serosanguineous -Structure Exposed N/A -Texture (Shahana-wound Skin Appearance) Localized Edema Scarring -Color (Shahana-wound Skin Appearance) No Abnormality -Temperature (Shahana-wound Skin No Abnormality Appearance) (Pt Warm) -Ulcer Cleansing Wound Cleanser -Foul Odor after Cleansing No -Anesthetic Used 4% Lidocaine Solution #2 R Heel -Current Size (cm) - Length 0.1 -Current Size (cm) - Width 0.1 -Current Size (cm) - Depth 0.1 -Total Square Cm 0.01 -Photo Taken No -Exudate Amt Small -Exudate Type Serosanguineous -Structure Exposed N/A -Texture (Shahana-wound Skin Appearance) Scarring -Moisture (Shahana-wound Skin Appearance No Abnormality ) -Color (Shahana-wound Skin Appearance) No Abnormality -Temperature (Shahana-wound Skin No Abnormality Appearance) (Pt Warm) -Tenderness on Palpation (Shahana-wound No Skin Appearance) -Ulcer Cleansing Rinsed/ Irrigated with Saline -Foul Odor after Cleansing No -Anesthetic Used 4% Lidocaine Solution [Edema Assessment] -Right Calf (cm) 33 -Right Ankle (cm) 21.5 WC - Nurse 2 - General Ulcer CM Notes Start: 10/17/18 14:10 Freq: Status: Active Protocol: Activity Type Activity Date Activity User E-Sign Co-Sign Detail Recorded Client Recorded Date Recorded By Document 10/17/18 15:36 DV [id number] 10/17/18 15:38 DV 10/17/18 15:36 Wound Center Nurse 2 [Procedure/Treatment] #12 Right Medial Heel -Time 15:37 -Correct Patient Yes -Correct Side, Site, Position Yes -Correct Procedure Yes -Procedure Performed Yes -Type of Procedure Debridement -Clinical Debridement Subcutaneous -Post Debridement Size (cm) - Length 0.3 -Post Debridement Size (cm) - Width 0.2 -Post Debridement Size (cm) - Depth 0.2 -Total Square Cm 0.06 -Wound/Ulcer Outcome Not Healed -Ulcer Cleansing Rinsed/ Irrigated with Saline -Foul Odor after Cleansing No -Bioengineered Tissue No -Bleeding Controlled with Pressure -Offloading Yes -Treatment Response Procedure Tolerated Well #4 RIGHT ACHILLES -Time 15:38 -Correct Patient Yes -Correct Side, Site, Position Yes -Correct Procedure Yes -Procedure Performed Yes -Type of Procedure Debridement -Clinical Debridement Subcutaneous -Post Debridement Size (cm) - Length 0.8 -Post Debridement Size (cm) - Width 0.8 -Post Debridement Size (cm) - Depth 0.2 -Total Square Cm 0.64 -Wound/Ulcer Outcome Not Healed -Ulcer Cleansing Rinsed/ Irrigated with Saline -Foul Odor after Cleansing No -Bioengineered Tissue No -Bleeding Controlled with Pressure -Offloading No -Treatment Response Procedure Tolerated Well #2 R Heel -Time 15:37 -Correct Patient Yes -Correct Side, Site, Position Yes -Correct Procedure Yes -Procedure Performed Yes -Type of Procedure Debridement -Clinical Debridement Subcutaneous -Post Debridement Size (cm) - Length 0.6 -Post Debridement Size (cm) - Width 0.6 -Post Debridement Size (cm) - Depth 0.3 -Total Square Cm 0.36 -Wound/Ulcer Outcome Not Healed -Ulcer Cleansing Rinsed/ Irrigated with Saline -Foul Odor after Cleansing No -Bioengineered Tissue No -Bleeding Controlled with Pressure -Offloading Yes -Treatment Response Procedure Tolerated Well [See Physician Procedure note for Specifics] Psych/Mental Status: Normal Affect, Appropriate Debridement Note Post-Debridement Measurements/Treatment WC - Nurse 2 - General Ulcer CM Notes Start: 10/17/18 14:10 Freq: Status: Active Protocol: Activity Type Activity Date Activity User E-Sign Co-Sign Detail Recorded Client Recorded Date Recorded By Document 10/17/18 15:36 DV [id number] 10/17/18 15:38 DV 10/17/18 15:36 Wound Center Nurse 2 #12 Right Medial Heel -Time 15:37 -Correct Patient Yes -Correct Side, Site, Position Yes -Correct Procedure Yes -Procedure Performed Yes -Type of Procedure Debridement -Clinical Debridement Subcutaneous -Post Debridement Size (cm) - Length 0.3 -Post Debridement Size (cm) - Width 0.2 -Post Debridement Size (cm) - Depth 0.2 -Total Square Cm 0.06 -Wound/Ulcer Outcome Not Healed -Ulcer Cleansing Rinsed/ Irrigated with Saline -Foul Odor after Cleansing No -Bioengineered Tissue No -Bleeding Controlled with Pressure -Offloading Yes -Treatment Response Procedure Tolerated Well #4 RIGHT ACHILLES -Time 15:38 -Correct Patient Yes -Correct Side, Site, Position Yes -Correct Procedure Yes -Procedure Performed Yes -Type of Procedure Debridement -Clinical Debridement Subcutaneous -Post Debridement Size (cm) - Length 0.8 -Post Debridement Size (cm) - Width 0.8 -Post Debridement Size (cm) - Depth 0.2 -Total Square Cm 0.64 -Wound/Ulcer Outcome Not Healed -Ulcer Cleansing Rinsed/ Irrigated with Saline -Foul Odor after Cleansing No -Bioengineered Tissue No -Bleeding Controlled with Pressure -Offloading No -Treatment Response Procedure Tolerated Well #2 R Heel -Time 15:37 -Correct Patient Yes -Correct Side, Site, Position Yes -Correct Procedure Yes -Procedure Performed Yes -Type of Procedure Debridement -Clinical Debridement Subcutaneous -Post Debridement Size (cm) - Length 0.6 -Post Debridement Size (cm) - Width 0.6 -Post Debridement Size (cm) - Depth 0.3 -Total Square Cm 0.36 -Wound/Ulcer Outcome Not Healed -Ulcer Cleansing Rinsed/ Irrigated with Saline -Foul Odor after Cleansing No -Bioengineered Tissue No -Bleeding Controlled with Pressure -Offloading Yes -Treatment Response Procedure Tolerated Well Wound debrided: right medial heel Laterality: Right Wound Grade/Stage: Grade 2 Type of Debridement: Excisional debridement Anesthesia Used: 4% Lidocaine Solution, 5% Lidocaine Gel Depth: Down to and including healthy tissue, in the subcutaneous layer Percentage of wound debrided: 100 Instrument Used: 5mm curette Tissue Removed: yellow slough, devitalized tissue Severity: Fat Layer Exposed Amount of bleeding with debridement: Mild Bleeding Controlled with: Compression and gauze Patient tolerated procedure well - Additional Wound Wound debrided: right achilles Laterality: Right Wound Grade/Stage: Grade 2 Type of Debridement: Excisional debridement Anesthesia Used: 4% Lidocaine Solution, 5% Lidocaine Gel, Cetacaine - 1% Depth: Down to and including healthy tissue, in the subcutaneous layer Percentage of wound debrided: 100 Instrument Used: 7mm curette Tissue Removed: yellow slough, devitalized tissue Severity: Fat Layer Exposed Amount of bleeding with debridement: Mild Bleeding Controlled with: Compression and gauze Patient tolerated procedure: Patient tolerated procedure well - Additional Wound Wound debrided: right heel Laterality: Right Wound Grade/Stage: grade 2 Type of Debridement: Excisional debridement Anesthesia Used: 4% Lidocaine Solution, 5% Lidocaine Gel, Cetacaine Depth: Down to and including healthy tissue, in the subcutaneous layer Percentage of wound debrided: 100 Instrument Used: 7mm curette Tissue Removed: yellow slough, devitalized tissue Severity: Fat Layer Exposed Amount of bleeding with debridement: Mild Bleeding Controlled with: Compression and gauze Patient tolerated procedure: Patient tolerated procedure well Assessment/Plan Active Problems Type 2 diabetes, uncontrolled, with ulcer of heel (Chronic) right plantar heel and right achilles Peripheral vascular disease (Chronic) Type II diabetes mellitus (Chronic) Assessment: 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 Diabetes mellitus - uncontrolled. Peripheral vascular disease - status post revascularization 08/07/18. right pat venous ulcer - healed. stage 2 pressure ulcer coccyx - healed. right 3rd toe and right second toe ulcers, right great toe - healed Plan: Gibson's ulcers were evaluated and debrided today. There is mild improvement in his Achilles ulcer but his heel is much improved again after second Theraskin. Wound culture taken of Achilles due to odor and lack of progress. There was an additional ulcer that was unroofed on the medial aspect of his right heel. That appeared to be a blood blister. Theraskin application will be held this week and will consider application next week if culture is unremarkable. Dr. Navas performed a SFA-ant. tib. bypass on his right leg on 08/07/18. Discussed offloading importance and encouraged continuing to use surgical shoe to offload his heel. Single layer tubigrip compression advised if he can tolerate this, avoidance of idle standing or sitting with legs hanging down. Encouraged improved control of his blood sugars. Encouraged him to seek consultation with pain management for his pain and gave him a 7 day RX (#56) for tramadol to use for pain as needed on 10/17/18. OARRS checked and appropriate. Encouraged to call with increased drainage, redness or fever or chills. Will f/u in 1 week.
[2018-10-24 14:12] VITALS: BP 124/72; PULSE 78; RESP 16; TEMP 36.6; BMI 24.9
--- NOTE | 2018-10-24 16:51 | PCM.WC.PN ---
(1) Type 2 diabetes, uncontrolled, with ulcer of heel Status: Chronic Current Visit: Yes Code(s): E11.621 - Type 2 diabetes mellitus with foot ulcer; E11.65 - Type 2 diabetes mellitus with hyperglycemia; L97.409 - Non-pressure chronic ulcer of unspecified heel and midfoot with unspecified severity Comment: right plantar heel and right achilles (2) Peripheral vascular disease Status: Chronic Current Visit: Yes Code(s): I73.9 - Peripheral vascular disease, unspecified (3) Type II diabetes mellitus Status: Chronic Current Visit: Yes Qualifiers: Diabetes mellitus jail insulin use: without jail use Diabetes mellitus complication status: with skin complications Diabetes mellitus complication detail: with foot ulcer Qualified Code(s): E11.621 - Type 2 diabetes mellitus with foot ulcer; L97.509 - Non-pressure chronic ulcer of other part of unspecified foot with unspecified severity Code(s): E11.9 - Type 2 diabetes mellitus without complications Type of Wound Date of Service: 10/24/18 Chief Complaint: Nonhealing ulcers right heel and toes History of Wound: This 68-year-old male is here for evaluation of an ulcer of his right heel and his right pat. He states that he has had an ulcer approx. 5 years ago of this same heel and was treated here and was healed after vascular interventions by Dr. Navas. He has noticed increased pain in his heel for the last few months and approx. beginning of May he noted an open wound to his right heel. He was using gauze but this started to irritate his skin and has been using silvadene and adaptic to the wound with tape for the last few weeks. He has not had any treatment with antibiotics for the wound. He is self-referred for treatment here. He does follow with Dr. 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 He has had procedures for his arterial disease in past to both of his lower extremities. From review of records it seems that Dr. Navas planned to do a right SFA-ant. tib bypass but it does not appear that this was done and patient denies having any bypass procedures other than his heart. It sounds like he is trying alternative treatments with supplements and chelation therapy. He also has diabetes and his last A1C several months ago was 7.2% but he stopped glyburide because he felt it was causing blisters of his legs. He does wear diabetic shoes. He has been undergoing chelation treatments by Dr. German in [place]. Dr. German prescribed him oxycodone-APAP 5/325 mg #60 which were filled on 05/22/18 for pain, he has six tablets left from this prescription, and he is asking for pain medication to treat pain from debridement. He reports having xrays done several months ago of his right heel due to pain which did not show any osteomyelitis or acute fractures. He denies fever, chills, erythema or heavy drainage. He reports significant pain and discomfort of his right heel and his entire right leg which no one can explain. Progress of Wound: Gibson is here to follow up for nonhealing ulcers of his right foot. He tolerated dressings with Aquacel and his wound culture was positive. He was supposed to start Clindamycin but he was started on Bactrim for a UTI and wasn't sure if he should take both. His pain has been worse and he has erythema in his lower leg around his calf and a new area on his right lateral calf that is a small folliculitis/abscess. His edema is worse today as well. He did not use compression today due to his pain. He underwent artificial bypass graft of his ant. tibial to femoral artery on 08/07/18. He had an WI postoperatively and is being treated medically. He continues to have severe pain in his ankle/heel but it has improved. He has been trying to elevate his foot and has been using his surgical shoe to offload as well. Denies fever or chills or increased drainage. - Physical Exam Vital Signs Temp Pulse Resp BP 98 F 78 16 124/72 H 10/24/18 14:12 10/24/18 14:12 10/24/18 14:12 10/24/18 14:12 General: Alert, Oriented x3, Cooperative, No apparent distress HEENT: Atraumatic, Normocephalic Oral: Moist Mucosa Extremities: Edema Skin: Ulcer/ Wound Wound Measurements and Assessment WC - Nurse 1 - General Ulcer Measurement Start: 10/17/18 14:10 Freq: Status: Active Protocol: Activity Type Activity Date Activity User E-Sign Co-Sign Detail Recorded Client Recorded Date Recorded By Document 10/24/18 14:12 [facility] [id number] 10/24/18 14:24 [facility] 10/24/18 14:12 Wound Center Nurse 1 [Ulcer Assessment] #12 Right Medial Heel -Combined with other wound No -Current Size (cm) - Length 0.1 -Current Size (cm) - Width 0.1 -Current Size (cm) - Depth 0.1 -Total Square Cm 0.01 -Epithelialization Large 67-100% #4 RIGHT ACHILLES -Combined with other wound No -Current Size (cm) - Length 0.3 -Current Size (cm) - Width 0.4 -Current Size (cm) - Depth 0.1 -Total Square Cm 0.12 -Photo Taken No -Epithelialization None Present -Tunneling No -Undermining/Tunneling No -Circular Undermining No -Exudate Amt Small -Exudate Type Serous -Wound Margin Distinct, Outline Attached -Granulation Amt None Present (0 %) -Slough/Fibrin Yes -Necrosis Amt Large (67-100%) -Necrotic Tissue Type Adherent Slough -Texture (Shahana-wound Skin Appearance) Assessed Scarring -Moisture (Shahana-wound Skin Appearance Assessed ) Dry/Scaly -Color (Shahana-wound Skin Appearance) Assessed Erythema -Temperature (Shahana-wound Skin No Abnormality Appearance) (Pt Warm) -Tenderness on Palpation (Shahana-wound Yes Skin Appearance) -Ulcer Cleansing Rinsed/ Irrigated with Saline -Foul Odor after Cleansing No -Anesthetic Used 4% Lidocaine Solution #2 R Heel -Combined with other wound No -Current Size (cm) - Length 0.4 -Current Size (cm) - Width 0.6 -Current Size (cm) - Depth 0.3 -Total Square Cm 0.24 -Photo Taken No -Epithelialization Small 1-33% -Tunneling No -Undermining/Tunneling No -Circular Undermining No -Exudate Amt Small -Exudate Type Serous -Wound Margin Distinct, Outline Attached -Granulation Amt Large (67-100%) -Granulation Quality [place] -Slough/Fibrin No -Necrosis Amt None Present (0 %) -Necrotic Tissue Type Adherent Slough -Texture (Shahana-wound Skin Appearance) Assessed Callus Scarring -Moisture (Shahana-wound Skin Appearance Assessed ) Dry/Scaly -Color (Shahana-wound Skin Appearance) Assessed -Temperature (Shahana-wound Skin No Abnormality Appearance) (Pt Warm) -Tenderness on Palpation (Shahana-wound Yes Skin Appearance) -Ulcer Cleansing Rinsed/ Irrigated with Saline -Foul Odor after Cleansing No -Anesthetic Used 4% Lidocaine Solution [Edema Assessment] -Lower Limb Edema Present Yes -Right Calf (cm) 34.9 -Right Ankle (cm) 24.2 [facility] - Nurse 2 - General Ulcer CM Notes Start: 10/17/18 14:10 Freq: Status: Active Protocol: Activity Type Activity Date Activity User E-Sign Co-Sign Detail Recorded Client Recorded Date Recorded By Document 10/24/18 14:38 DV [id number] 10/24/18 15:00 DV 10/24/18 14:38 Wound Center Nurse 2 [Procedure/Treatment] #12 Right Medial Heel -Time 14:44 -Correct Patient Yes -Correct Side, Site, Position Yes -Correct Procedure Yes -Procedure Performed Yes -Type of Procedure Debridement -Clinical Debridement Subcutaneous -Post Debridement Size (cm) - Length 0.5 -Post Debridement Size (cm) - Width 0.7 -Post Debridement Size (cm) - Depth 0.3 -Total Square Cm 0.35 -Wound/Ulcer Outcome Not Healed -Ulcer Cleansing Rinsed/ Irrigated with Saline -Foul Odor after Cleansing No -Bioengineered Tissue No -Bleeding Controlled with Pressure -Offloading No -Type of Offloading Surgical Shoe -Treatment Response Procedure Tolerated Well #4 RIGHT ACHILLES -Time 14:44 -Correct Patient Yes -Correct Side, Site, Position Yes -Correct Procedure Yes -Procedure Performed Yes -Type of Procedure Debridement -Clinical Debridement Subcutaneous -Post Debridement Size (cm) - Length 0.4 -Post Debridement Size (cm) - Width 0.4 -Post Debridement Size (cm) - Depth 0.2 -Total Square Cm 0.16 -Wound/Ulcer Outcome Not Healed -Ulcer Cleansing Rinsed/ Irrigated with Saline -Foul Odor after Cleansing No -Bioengineered Tissue No -Bleeding Controlled with Pressure -Offloading No -Type of Offloading Surgical Shoe -Treatment Response Procedure Tolerated Well #2 R Heel -Time 14:51 -Correct Patient Yes -Correct Side, Site, Position Yes -Correct Procedure No -Procedure Performed No -Wound/Ulcer Outcome Healed- Epithelialized [See Physician Procedure note for Specifics] Pain Scale: 0-10 Numeric [Pain] -Is Patient Pain Free? Yes Psych/Mental Status: Normal Affect, Appropriate Debridement Note Post-Debridement Measurements/Treatment [facility] - Nurse 2 - General Ulcer CM Notes Start: 10/17/18 14:10 Freq: Status: Active Protocol: Activity Type Activity Date Activity User E-Sign Co-Sign Detail Recorded Client Recorded Date Recorded By Document 10/17/18 15:36 DV [id number] 10/17/18 15:38 DV Document 10/24/18 14:38 DV [id number] 10/24/18 15:00 DV 10/17/18 10/24/18 15:36 14:38 Wound Center Nurse 2 #12 Right Medial Heel -Time 15:37 14:44 -Correct Patient Yes Yes -Correct Side, Site, Position Yes Yes -Correct Procedure Yes Yes -Procedure Performed Yes Yes -Type of Procedure Debridement Debridement -Clinical Debridement Subcutaneous Subcutaneous -Post Debridement Size (cm) - Length 0.3 0.5 -Post Debridement Size (cm) - Width 0.2 0.7 -Post Debridement Size (cm) - Depth 0.2 0.3 -Total Square Cm 0.06 0.35 -Wound/Ulcer Outcome Not Healed Not Healed -Ulcer Cleansing Rinsed/ Rinsed/ Irrigated with Irrigated with Saline Saline -Foul Odor after Cleansing No No -Bioengineered Tissue No No -Bleeding Controlled with Pressure Pressure -Offloading Yes No -Type of Offloading Surgical Shoe -Treatment Response Procedure Procedure Tolerated Well Tolerated Well #4 RIGHT ACHILLES -Time 15:38 14:44 -Correct Patient Yes Yes -Correct Side, Site, Position Yes Yes -Correct Procedure Yes Yes -Procedure Performed Yes Yes -Type of Procedure Debridement Debridement -Clinical Debridement Subcutaneous Subcutaneous -Post Debridement Size (cm) - Length 0.8 0.4 -Post Debridement Size (cm) - Width 0.8 0.4 -Post Debridement Size (cm) - Depth 0.2 0.2 -Total Square Cm 0.64 0.16 -Wound/Ulcer Outcome Not Healed Not Healed -Ulcer Cleansing Rinsed/ Rinsed/ Irrigated with Irrigated with Saline Saline -Foul Odor after Cleansing No No -Bioengineered Tissue No No -Bleeding Controlled with Pressure Pressure -Offloading No No -Type of Offloading Surgical Shoe -Treatment Response Procedure Procedure Tolerated Well Tolerated Well #2 R Heel -Time 15:37 14:51 -Correct Patient Yes Yes -Correct Side, Site, Position Yes Yes -Correct Procedure Yes No -Procedure Performed Yes No -Type of Procedure Debridement -Clinical Debridement Subcutaneous -Post Debridement Size (cm) - Length 0.6 -Post Debridement Size (cm) - Width 0.6 -Post Debridement Size (cm) - Depth 0.3 -Total Square Cm 0.36 -Wound/Ulcer Outcome Not Healed Healed- Epithelialized -Ulcer Cleansing Rinsed/ Irrigated with Saline -Foul Odor after Cleansing No -Bioengineered Tissue No -Bleeding Controlled with Pressure -Offloading Yes -Treatment Response Procedure Tolerated Well Pain Scale: 0-10 Numeric Is Patient Pain Free? Yes Wound debrided: right medial heel Laterality: Right the wound is healed No debridement was completed today - Additional Wound Wound debrided: right achilles Laterality: Right Wound Grade/Stage: gonzalez grade 2 Type of Debridement: Excisional debridement Anesthesia Used: 4% Lidocaine Solution, 5% Lidocaine Gel, Cetacaine - 1% Depth: Down to and including healthy tissue, in the subcutaneous layer Percentage of wound debrided: 100 Instrument Used: 5mm curette Tissue Removed: yellow slough, devitalized tissue Severity: Fat Layer Exposed Amount of bleeding with debridement: Mild Bleeding Controlled with: Compression and gauze Patient tolerated procedure: Patient tolerated procedure well - Additional Wound Wound debrided: right heel Laterality: Right Wound Grade/Stage: gonzalez grade 2 Type of Debridement: Excisional debridement Anesthesia Used: 4% Lidocaine Solution, 5% Lidocaine Gel, Cetacaine - 1% Depth: Down to and including healthy tissue, in the subcutaneous layer Percentage of wound debrided: 100 Instrument Used: 5mm curette Tissue Removed: yellow slough, devitalized tissue Severity: Fat Layer Exposed Amount of bleeding with debridement: Mild Bleeding Controlled with: Compression and gauze Patient tolerated procedure: Patient tolerated procedure well Assessment/Plan Active Problems Type 2 diabetes, uncontrolled, with ulcer of heel (Chronic) right plantar heel and right achilles Peripheral vascular disease (Chronic) Type II diabetes mellitus (Chronic) Assessment: 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 Diabetes mellitus - uncontrolled. Peripheral vascular disease - status post revascularization 08/07/18. right pat venous ulcer - healed. stage 2 pressure ulcer coccyx - healed. right 3rd toe and right second toe ulcers, right great toe - healed Plan: Demetriuss ulcers were evaluated and debrided today. There is mild improvement in his ulcers. Wound culture taken of folliculitis of right lateral leg. Reviewed his cultures and Bactrim covers 2/4 bacteria cultured but given his erythema and increased pain will have him start Clindamycin in addition to Bactrim. Encouraged probiotic use. Will have him continue Aquacel to his ulcers and f/u in 1 week for Theraskin application as long as his wound appears to be clear of infection. Dr. Navas performed a SFA-ant. tib. bypass on his right leg on 08/07/18. Discussed offloading importance and encouraged continuing to use surgical shoe to offload his heel. Single layer tubigrip compression advised if he can tolerate this, avoidance of idle standing or sitting with legs hanging down. Encouraged improved control of his blood sugars. Encouraged him to seek consultation with pain management for his pain and gave him a 7 day RX (#56) for tramadol to use for pain as needed on 10/17/18. OARRS checked and appropriate. Encouraged to call with increased drainage, redness or fever or chills. Will f/u in 1 week.
[2018-10-31 14:03] VITALS: BP 135/51; PULSE 89; RESP 18; TEMP 36.2; BMI 24.9
--- NOTE | 2018-10-31 19:38 | PCM.WC.PN ---
(1) Type 2 diabetes, uncontrolled, with ulcer of heel Status: Chronic Current Visit: Yes Code(s): E11.621 - Type 2 diabetes mellitus with foot ulcer; E11.65 - Type 2 diabetes mellitus with hyperglycemia; L97.409 - Non-pressure chronic ulcer of unspecified heel and midfoot with unspecified severity Comment: right plantar heel and right achilles (2) Peripheral vascular disease Status: Chronic Current Visit: Yes Code(s): I73.9 - Peripheral vascular disease, unspecified (3) Type II diabetes mellitus Status: Chronic Current Visit: Yes Qualifiers: Diabetes mellitus halfway insulin use: without halfway use Diabetes mellitus complication status: with skin complications Diabetes mellitus complication detail: with foot ulcer Qualified Code(s): E11.621 - Type 2 diabetes mellitus with foot ulcer; L97.509 - Non-pressure chronic ulcer of other part of unspecified foot with unspecified severity Code(s): E11.9 - Type 2 diabetes mellitus without complications Type of Wound Date of Service: 10/31/18 Chief Complaint: Nonhealing ulcers right heel and toes History of Wound: This 68-year-old male is here for evaluation of an ulcer of his right heel and his right pat. He states that he has had an ulcer approx. 5 years ago of this same heel and was treated here and was healed after vascular interventions by Dr. Navas. He has noticed increased pain in his heel for the last few months and approx. beginning of May he noted an open wound to his right heel. He was using gauze but this started to irritate his skin and has been using silvadene and adaptic to the wound with tape for the last few weeks. He has not had any treatment with antibiotics for the wound. He is self-referred for treatment here. He does follow with Dr. 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 He has had procedures for his arterial disease in past to both of his lower extremities. From review of records it seems that Dr. Navas planned to do a right SFA-ant. tib bypass but it does not appear that this was done and patient denies having any bypass procedures other than his heart. It sounds like he is trying alternative treatments with supplements and chelation therapy. He also has diabetes and his last A1C several months ago was 7.2% but he stopped glyburide because he felt it was causing blisters of his legs. He does wear diabetic shoes. He has been undergoing chelation treatments by Dr. German in [place]. Dr. German prescribed him oxycodone-APAP 5/325 mg #60 which were filled on 05/22/18 for pain, he has six tablets left from this prescription, and he is asking for pain medication to treat pain from debridement. He reports having xrays done several months ago of his right heel due to pain which did not show any osteomyelitis or acute fractures. He denies fever, chills, erythema or heavy drainage. He reports significant pain and discomfort of his right heel and his entire right leg which no one can explain. Progress of Wound: Gibson is here to follow up for nonhealing ulcers of his right foot. He is tolerating dressings with Aquacel and antibiotics for a positive wound culture but he has increased pain and purulent drainage from his heel ulcer as well as erythema of his right calf surrounding a carbuncle that was cultured last week. He underwent artificial bypass graft of his ant. tibial to femoral artery on 08/07/18. He had an MA postoperatively and is being treated medically. He continues to have severe pain in his ankle/heel but it has improved. He has been trying to elevate his foot and has been using his surgical shoe to offload as well. Denies fever or chills or increased drainage. - Physical Exam Vital Signs Temp Pulse Resp BP 97.2 F L 89 18 135/51 H 10/31/18 14:03 10/31/18 14:03 10/31/18 14:03 10/31/18 14:03 General: Alert, Oriented x3, Cooperative, No apparent distress HEENT: Atraumatic, Normocephalic Oral: Moist Mucosa Extremities: Edema Skin: Ulcer/ Wound Wound Measurements and Assessment WC - Nurse 1 - General Ulcer Measurement Start: 10/17/18 14:10 Freq: Status: Active Protocol: Activity Type Activity Date Activity User E-Sign Co-Sign Detail Recorded Client Recorded Date Recorded By Document 10/31/18 14:03 MW [id number] 10/31/18 14:19 MW 10/31/18 14:03 Wound Center Nurse 1 [Ulcer Assessment] #12 Right Medial Heel -Combined with other wound No -Current Size (cm) - Length 0.6 -Current Size (cm) - Width 0.6 -Current Size (cm) - Depth 0.1 -Total Square Cm 0.36 -Photo Taken No -Epithelialization None Present -Tunneling No -Undermining/Tunneling No -Circular Undermining No -Exudate Amt Medium -Exudate Type Purulent -Wound Margin Flat & Intact -Granulation Amt None Present (0 %) -Granulation Quality N/A -Slough/Fibrin Yes -Necrosis Amt Large (67-100%) -Necrotic Tissue Type Adherent Slough -Texture (Shahana-wound Skin Appearance) Assessed Localized Edema Scarring -Moisture (Shahana-wound Skin Appearance No Abnormality ) Assessed -Color (Shahana-wound Skin Appearance) No Abnormality Assessed -Temperature (Shahana-wound Skin No Abnormality Appearance) (Pt Warm) -Tenderness on Palpation (Shahana-wound Yes Skin Appearance) -Ulcer Cleansing Rinsed/ Irrigated with Saline -Foul Odor after Cleansing No -Anesthetic Used 4% Lidocaine Solution 5% Lidocaine Gel #4 RIGHT ACHILLES -Combined with other wound No -Current Size (cm) - Length 0.5 -Current Size (cm) - Width 0.5 -Current Size (cm) - Depth 0.1 -Total Square Cm 0.25 -Photo Taken No -Epithelialization None Present -Tunneling No -Undermining/Tunneling No -Circular Undermining No -Exudate Amt Small -Exudate Type Serous -Wound Margin Flat & Intact -Granulation Amt None Present (0 %) -Granulation Quality N/A -Slough/Fibrin Yes -Necrosis Amt Large (67-100%) -Necrotic Tissue Type Adherent Slough -Structure Exposed N/A -Texture (Shahana-wound Skin Appearance) Assessed Localized Edema Scarring -Moisture (Shahana-wound Skin Appearance No Abnormality ) Assessed -Color (Shahana-wound Skin Appearance) Assessed -Temperature (Shahana-wound Skin No Abnormality Appearance) (Pt Warm) -Tenderness on Palpation (Shahana-wound Yes Skin Appearance) -Ulcer Cleansing Rinsed/ Irrigated with Saline -Foul Odor after Cleansing No -Anesthetic Used 4% Lidocaine Solution 5% Lidocaine Gel [Edema Assessment] -Lower Limb Edema Present Yes -Right Calf (cm) 35.0 -Right Ankle (cm) 21.5 WC - Nurse 2 - General Ulcer CM Notes Start: 10/17/18 14:10 Freq: Status: Active Protocol: Activity Type Activity Date Activity User E-Sign Co-Sign Detail Recorded Client Recorded Date Recorded By Document 10/31/18 15:12 DV [id number] 10/31/18 15:42 DV 10/31/18 15:12 Wound Center Nurse 2 [Procedure/Treatment] #13 Right Lateral Posterior Calf -Time 15:36 -Correct Patient Yes -Correct Side, Site, Position Yes -Correct Procedure Yes -Procedure Performed Yes -Type of Procedure Debridement -Clinical Debridement Subcutaneous -Post Debridement Size (cm) - Length 0.4 -Post Debridement Size (cm) - Width 0.3 -Post Debridement Size (cm) - Depth 0.5 -Total Square Cm 0.12 -Wound/Ulcer Outcome Not Healed -Ulcer Cleansing Rinsed/ Irrigated with Saline -Foul Odor after Cleansing No -Bioengineered Tissue No -Bleeding Controlled with Pressure -Offloading No -Treatment Response Procedure Not Tolerated Well #12 Right Medial Heel -Time 15:30 -Correct Patient Yes -Correct Side, Site, Position Yes -Correct Procedure Yes -Procedure Performed Yes -Type of Procedure Debridement -Clinical Debridement Subcutaneous -Post Debridement Size (cm) - Length 0.6 -Post Debridement Size (cm) - Width 0.8 -Post Debridement Size (cm) - Depth 0.5 -Total Square Cm 0.48 -Wound/Ulcer Outcome Not Healed -Ulcer Cleansing Rinsed/ Irrigated with Saline -Foul Odor after Cleansing No -Bioengineered Tissue No -Bleeding Controlled with Pressure -Offloading Yes -Type of Offloading Surgical Shoe -Treatment Response Procedure Not Tolerated Well #4 RIGHT ACHILLES -Time 15:39 -Correct Patient Yes -Correct Side, Site, Position Yes -Correct Procedure Yes -Procedure Performed Yes -Type of Procedure Debridement -Clinical Debridement Subcutaneous -Post Debridement Size (cm) - Length 0.3 -Post Debridement Size (cm) - Width 0.3 -Post Debridement Size (cm) - Depth 0.2 -Total Square Cm 0.09 -Wound/Ulcer Outcome Not Healed -Ulcer Cleansing Rinsed/ Irrigated with Saline -Foul Odor after Cleansing No -Bioengineered Tissue No -Bleeding Controlled with Pressure -Offloading No -Treatment Response Procedure Not Tolerated Well [See Physician Procedure note for Specifics] Pain Scale: 0-10 Numeric [Pain] -Is Patient Pain Free? Yes Psych/Mental Status: Normal Affect, Appropriate Debridement Note Post-Debridement Measurements/Treatment WC - Nurse 2 - General Ulcer CM Notes Start: 10/17/18 14:10 Freq: Status: Active Protocol: Activity Type Activity Date Activity User E-Sign Co-Sign Detail Recorded Client Recorded Date Recorded By Document 10/17/18 15:36 DV [id number] 10/17/18 15:38 DV Document 10/24/18 14:38 DV [id number] 10/24/18 15:00 DV Document 10/31/18 15:12 DV [id number] 10/31/18 15:42 DV 10/17/18 10/24/18 10/31/18 15:36 14:38 15:12 Wound Center Nurse 2 #13 Right Lateral Posterior Calf -Time 15:36 -Correct Patient Yes -Correct Side, Site, Position Yes -Correct Procedure Yes -Procedure Performed Yes -Type of Procedure Debridement -Clinical Debridement Subcutaneous -Post Debridement Size (cm) - Length 0.4 -Post Debridement Size (cm) - Width 0.3 -Post Debridement Size (cm) - Depth 0.5 -Total Square Cm 0.12 -Wound/Ulcer Outcome Not Healed -Ulcer Cleansing Rinsed/ Irrigated with Saline -Foul Odor after Cleansing No -Bioengineered Tissue No -Bleeding Controlled with Pressure -Offloading No -Treatment Response Procedure Not Tolerated Well #12 Right Medial Heel -Time 15:37 14:44 15:30 -Correct Patient Yes Yes Yes -Correct Side, Site, Position Yes Yes Yes -Correct Procedure Yes Yes Yes -Procedure Performed Yes Yes Yes -Type of Procedure Debridement Debridement Debridement -Clinical Debridement Subcutaneous Subcutaneous Subcutaneous -Post Debridement Size (cm) - Length 0.3 0.5 0.6 -Post Debridement Size (cm) - Width 0.2 0.7 0.8 -Post Debridement Size (cm) - Depth 0.2 0.3 0.5 -Total Square Cm 0.06 0.35 0.48 -Wound/Ulcer Outcome Not Healed Not Healed Not Healed -Ulcer Cleansing Rinsed/ Rinsed/ Rinsed/ Irrigated with Irrigated with Irrigated with Saline Saline Saline -Foul Odor after Cleansing No No No -Bioengineered Tissue No No No -Bleeding Controlled with Pressure Pressure Pressure -Offloading Yes No Yes -Type of Offloading Surgical Shoe Surgical Shoe -Treatment Response Procedure Procedure Procedure Not Tolerated Well Tolerated Well Tolerated Well #4 RIGHT ACHILLES -Time 15:38 14:44 15:39 -Correct Patient Yes Yes Yes -Correct Side, Site, Position Yes Yes Yes -Correct Procedure Yes Yes Yes -Procedure Performed Yes Yes Yes -Type of Procedure Debridement Debridement Debridement -Clinical Debridement Subcutaneous Subcutaneous Subcutaneous -Post Debridement Size (cm) - Length 0.8 0.4 0.3 -Post Debridement Size (cm) - Width 0.8 0.4 0.3 -Post Debridement Size (cm) - Depth 0.2 0.2 0.2 -Total Square Cm 0.64 0.16 0.09 -Wound/Ulcer Outcome Not Healed Not Healed Not Healed -Ulcer Cleansing Rinsed/ Rinsed/ Rinsed/ Irrigated with Irrigated with Irrigated with Saline Saline Saline -Foul Odor after Cleansing No No No -Bioengineered Tissue No No No -Bleeding Controlled with Pressure Pressure Pressure -Offloading No No No -Type of Offloading Surgical Shoe -Treatment Response Procedure Procedure Procedure Not Tolerated Well Tolerated Well Tolerated Well #2 R Heel -Time 15:37 14:51 -Correct Patient Yes Yes -Correct Side, Site, Position Yes Yes -Correct Procedure Yes No -Procedure Performed Yes No -Type of Procedure Debridement -Clinical Debridement Subcutaneous -Post Debridement Size (cm) - Length 0.6 -Post Debridement Size (cm) - Width 0.6 -Post Debridement Size (cm) - Depth 0.3 -Total Square Cm 0.36 -Wound/Ulcer Outcome Not Healed Healed- Epithelialized -Ulcer Cleansing Rinsed/ Irrigated with Saline -Foul Odor after Cleansing No -Bioengineered Tissue No -Bleeding Controlled with Pressure -Offloading Yes -Treatment Response Procedure Tolerated Well Pain Scale: 0-10 Numeric Is Patient Pain Free? Yes Yes Wound debrided: right lateral posterior calf Laterality: Right Type of Debridement: Excisional debridement Anesthesia Used: 4% Lidocaine Solution, 5% Lidocaine Gel, Cetacaine Depth: Down to and including healthy tissue, in the subcutaneous layer Percentage of wound debrided: 100 Instrument Used: 5mm curette Tissue Removed: yellow slough, devitalized tissue Severity: Fat Layer Exposed Amount of bleeding with debridement: Mild Bleeding Controlled with: Compression and gauze Patient tolerated procedure well - Additional Wound Wound debrided: right achilles Laterality: Right Wound Grade/Stage: Valdez grade 2 Type of Debridement: Excisional debridement Anesthesia Used: 4% Lidocaine Solution, 5% Lidocaine Gel, Cetacaine Depth: Down to and including healthy tissue, in the subcutaneous layer Percentage of wound debrided: 100 Instrument Used: 5mm curette Tissue Removed: yellow slough, devitalized tissue Severity: Fat Layer Exposed Amount of bleeding with debridement: Mild Bleeding Controlled with: Compression and gauze Patient tolerated procedure: Patient tolerated procedure well - Additional Wound Wound debrided: right heel Laterality: Right Wound Grade/Stage: Valdez grade 2 Type of Debridement: Excisional debridement Anesthesia Used: 4% Lidocaine Solution, 5% Lidocaine Gel Depth: Down to and including healthy tissue, in the subcutaneous layer Percentage of wound debrided: 100 Instrument Used: 5mm curette Tissue Removed: yellow slough, devitalized tissue Severity: Fat Layer Exposed Amount of bleeding with debridement: Mild Bleeding Controlled with: Compression and gauze Patient tolerated procedure: Patient tolerated procedure well Assessment/Plan Active Problems Type 2 diabetes, uncontrolled, with ulcer of heel (Chronic) right plantar heel and right achilles Peripheral vascular disease (Chronic) Type II diabetes mellitus (Chronic) Assessment: 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 Diabetes mellitus - uncontrolled. Peripheral vascular disease - status post revascularization 08/07/18. right pat venous ulcer - healed. stage 2 pressure ulcer coccyx - healed. right 3rd toe and right second toe ulcers, right great toe - healed Plan: Gibson's ulcers were evaluated and debrided today. There is mild improvement in his ulcers but increased pain and erythema. Wound culture taken again of his right lateral leg. Last week's culture showed MRSA that was sensitive to the antibiotics that he has been taking but he is worsening and not improving. Flagyl prescribed to cover for possible anaerobic infection and cultures repeated. Encouraged probiotic use. Will have him continue Aquacel to his ulcers and f/u in [address] Navas performed a SFA-ant. tib. bypass on his right leg on 08/07/18. Discussed offloading importance and encouraged continuing to use surgical shoe to offload his heel. Single layer tubigrip compression advised if he can tolerate this, avoidance of idle standing or sitting with legs hanging down. Encouraged improved control of his blood sugars. Encouraged him to seek consultation with pain management for his pain and gave him a 7 day RX (#56) for tramadol to use for pain as needed on 10/17/18. [place] checked and appropriate. Encouraged to call with increased drainage, redness or fever or chills. Will f/u in 1 week.
[2018-11-07 14:37] VITALS: BP 155/78; PULSE 82; RESP 16; TEMP 37.2; BMI 24.9
--- NOTE | 2018-11-07 19:57 | PCM.WC.PN ---
(1) Type 2 diabetes, uncontrolled, with ulcer of heel Status: Chronic Current Visit: Yes Code(s): E11.621 - Type 2 diabetes mellitus with foot ulcer; E11.65 - Type 2 diabetes mellitus with hyperglycemia; L97.409 - Non-pressure chronic ulcer of unspecified heel and midfoot with unspecified severity Comment: right plantar heel and right achilles (2) Peripheral vascular disease Status: Chronic Current Visit: Yes Code(s): I73.9 - Peripheral vascular disease, unspecified (3) Type II diabetes mellitus Status: Chronic Current Visit: Yes Qualifiers: Diabetes mellitus detention insulin use: without detention use Diabetes mellitus complication status: with skin complications Diabetes mellitus complication detail: with foot ulcer Qualified Code(s): E11.621 - Type 2 diabetes mellitus with foot ulcer; L97.509 - Non-pressure chronic ulcer of other part of unspecified foot with unspecified severity Code(s): E11.9 - Type 2 diabetes mellitus without complications Type of Wound Date of Service: 11/07/18 Chief Complaint: Nonhealing ulcers right heel and calf History of Wound: This 68-year-old male is here for evaluation of an ulcer of his right heel and his right pat. He states that he has had an ulcer approx. 5 years ago of this same heel and was treated here and was healed after vascular interventions by Dr. Navas. He has noticed increased pain in his heel for the last few months and approx. beginning of May he noted an open wound to his right heel. He was using gauze but this started to irritate his skin and has been using silvadene and adaptic to the wound with tape for the last few weeks. He has not had any treatment with antibiotics for the wound. He is self-referred for treatment here. He does follow with Dr. 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 He has had procedures for his arterial disease in past to both of his lower extremities. From review of records it seems that Dr. Navas planned to do a right SFA-ant. tib bypass but it does not appear that this was done and patient denies having any bypass procedures other than his heart. It sounds like he is trying alternative treatments with supplements and chelation therapy. He also has diabetes and his last A1C several months ago was 7.2% but he stopped glyburide because he felt it was causing blisters of his legs. He does wear diabetic shoes. He has been undergoing chelation treatments by Dr. German in [place]. Dr. German prescribed him oxycodone-APAP 5/325 mg #60 which were filled on 05/22/18 for pain, he has six tablets left from this prescription, and he is asking for pain medication to treat pain from debridement. He reports having xrays done several months ago of his right heel due to pain which did not show any osteomyelitis or acute fractures. He denies fever, chills, erythema or heavy drainage. He reports significant pain and discomfort of his right heel and his entire right leg which no one can explain. Progress of Wound: Gibson is here to follow up for nonhealing ulcers of his right foot. He is tolerating dressings with Aquacel. He has completed antibiotoc traetment for positive wound cultures. He underwent artificial bypass graft of his ant. tibial to femoral artery on 08/07/18. He had an UT postoperatively and is being treated medically. He continues to have severe pain in his ankle/heel but it has improved. He has been trying to elevate his foot and has been using his surgical shoe to offload as well. Denies fever or chills or increased drainage. - Physical Exam Vital Signs Temp Pulse Resp BP 98.9 F 82 16 155/78 H 11/07/18 14:37 11/07/18 14:37 11/07/18 14:37 11/07/18 14:37 General: Alert, Oriented x3, Cooperative, No apparent distress HEENT: Atraumatic, Normocephalic Oral: Moist Mucosa Neck: Supple Extremities: Edema Skin: Ulcer/ Wound Wound Measurements and Assessment WC - Nurse 1 - General Ulcer Measurement Start: 10/17/18 14:10 Freq: Status: Active Protocol: Activity Type Activity Date Activity User E-Sign Co-Sign Detail Recorded Client Recorded Date Recorded By Document 11/07/18 14:37 [facility] [id number] 11/07/18 14:54 [facility] 11/07/18 14:37 Wound Center Nurse 1 [Ulcer Assessment] #13 Right Lateral Posterior Calf -Combined with other wound No -Current Size (cm) - Length 0.3 -Current Size (cm) - Width 0.1 -Current Size (cm) - Depth 0.2 -Total Square Cm 0.03 -Date of Last Picture (Recall this 11/07/18 field) -Photo Taken Yes -Epithelialization None Present -Tunneling No -Undermining/Tunneling No -Circular Undermining No -Exudate Amt Small -Exudate Type Serosanguineous -Wound Margin Distinct, Outline Attached -Granulation Amt Large (67-100%) -Granulation Quality [place] -Slough/Fibrin No -Necrosis Amt None Present (0 %) -Texture (Shahana-wound Skin Appearance) Assessed Scarring -Moisture (Shahana-wound Skin Appearance Assessed ) Dry/Scaly -Color (Shahana-wound Skin Appearance) Assessed -Temperature (Shahana-wound Skin No Abnormality Appearance) (Pt Warm) -Tenderness on Palpation (Shahana-wound Yes Skin Appearance) -Foul Odor after Cleansing No -Anesthetic Used 4% Lidocaine Solution #12 Right Medial Heel -Combined with other wound No -Current Size (cm) - Length 0.6 -Current Size (cm) - Width 0.8 -Current Size (cm) - Depth 0.3 -Total Square Cm 0.48 -Date of Last Picture (Recall this 11/07/18 field) -Photo Taken Yes -Epithelialization None Present -Tunneling No -Undermining/Tunneling No -Circular Undermining No -Exudate Amt Small -Exudate Type Serosanguineous -Wound Margin Distinct, Outline Attached -Granulation Amt Large (67-100%) -Granulation Quality [place] -Slough/Fibrin Yes -Necrosis Amt Small (1-33%) -Necrotic Tissue Type Adherent Slough -Texture (Shahana-wound Skin Appearance) Assessed Callus Scarring -Moisture (Shahana-wound Skin Appearance Assessed ) Dry/Scaly -Color (Shahana-wound Skin Appearance) Assessed -Temperature (Shahana-wound Skin No Abnormality Appearance) (Pt Warm) -Tenderness on Palpation (Shahana-wound Yes Skin Appearance) -Ulcer Cleansing Rinsed/ Irrigated with Saline -Foul Odor after Cleansing No -Anesthetic Used 4% Lidocaine Solution #4 RIGHT ACHILLES -Combined with other wound No -Current Size (cm) - Length 0.1 -Current Size (cm) - Width 0.1 -Current Size (cm) - Depth 0.1 -Total Square Cm 0.01 -Date of Last Picture (Recall this 11/07/18 field) -Photo Taken Yes -Epithelialization Large 67-100% -Texture (Shahana-wound Skin Appearance) Assessed Callus Scarring -Moisture (Shahana-wound Skin Appearance Assessed ) Dry/Scaly -Color (Shahana-wound Skin Appearance) Assessed -Temperature (Shahana-wound Skin No Abnormality Appearance) (Pt Warm) -Tenderness on Palpation (Shahana-wound Yes Skin Appearance) -Ulcer Cleansing Rinsed/ Irrigated with Saline -Foul Odor after Cleansing No -Anesthetic Used 4% Lidocaine Solution [Edema Assessment] -Lower Limb Edema Present Yes -Right Calf (cm) 34.5 -Right Ankle (cm) 21.5 WC - Nurse 2 - General Ulcer CM Notes Start: 10/17/18 14:10 Freq: Status: Active Protocol: Activity Type Activity Date Activity User E-Sign Co-Sign Detail Recorded Client Recorded Date Recorded By Document 11/07/18 15:44 DV [id number] 11/07/18 16:06 DV 11/07/18 15:44 Wound Center Nurse 2 [Procedure/Treatment] #13 Right Lateral Posterior Calf -Time 15:47 -Correct Patient Yes -Correct Side, Site, Position Yes -Correct Procedure Yes -Procedure Performed Yes -Type of Procedure Debridement -Clinical Debridement Subcutaneous -Post Debridement Size (cm) - Length 0.3 -Post Debridement Size (cm) - Width 0.1 -Post Debridement Size (cm) - Depth 0.2 -Total Square Cm 0.03 -Wound/Ulcer Outcome Not Healed -Ulcer Cleansing Rinsed/ Irrigated with Saline -Foul Odor after Cleansing No -Bioengineered Tissue No -Bleeding Controlled with Pressure -Offloading Yes -Type of Offloading Surgical Shoe -Treatment Response Procedure Tolerated Well #12 Right Medial Heel -Time 15:54 -Correct Patient Yes -Correct Side, Site, Position Yes -Correct Procedure Yes -Procedure Performed Yes -Type of Procedure Debridement -Clinical Debridement Subcutaneous -Post Debridement Size (cm) - Length 0.8 -Post Debridement Size (cm) - Width 1.2 -Post Debridement Size (cm) - Depth 0.3 -Total Square Cm 0.96 -Wound/Ulcer Outcome Not Healed -Ulcer Cleansing Rinsed/ Irrigated with Saline -Foul Odor after Cleansing No -Bioengineered Tissue Yes -Type of bioengineered Tissue [place] -Expiration Date 01/31/19 -Product Lot Number [id number] -Percent Used 80 -Saline Lot Number [id number] -Topical Lidocaine (%) 5 -Injectable Lidocaine w/ Epi (%) 1 -Injectable Lidocaine w/ Epi (mls) 8 -Bleeding Controlled with Pressure -Offloading No -Type of Offloading Surgical Shoe -Treatment Response Procedure Tolerated Well #4 RIGHT ACHILLES -Time 15:48 -Correct Patient Yes -Correct Side, Site, Position Yes -Correct Procedure Yes -Procedure Performed Yes -Type of Procedure Debridement -Clinical Debridement Subcutaneous -Post Debridement Size (cm) - Length 0.2 -Post Debridement Size (cm) - Width 0.3 -Post Debridement Size (cm) - Depth 0.2 -Total Square Cm 0.06 -Wound/Ulcer Outcome Not Healed -Ulcer Cleansing Rinsed/ Irrigated with Saline -Foul Odor after Cleansing No -Bioengineered Tissue Yes -Type of bioengineered Tissue [place] -Expiration Date 01/31/19 -Product Lot Number [id number] -Percent Used 20 -Saline Lot Number [id number] -Topical Lidocaine (%) 5 -Injectable Lidocaine w/ Epi (%) 1 -Injectable Lidocaine w/ Epi (mls) 2 -Bleeding Controlled with Pressure -Offloading Yes -Type of Offloading Surgical Shoe -Treatment Response Procedure Tolerated Well [See Physician Procedure note for Specifics] Pain Scale: 0-10 Numeric [Pain] -Is Patient Pain Free? Yes Psych/Mental Status: Normal Affect, Appropriate Debridement Note Post-Debridement Measurements/Treatment WC - Nurse 2 - General Ulcer CM Notes Start: 10/17/18 14:10 Freq: Status: Active Protocol: Activity Type Activity Date Activity User E-Sign Co-Sign Detail Recorded Client Recorded Date Recorded By Document 10/17/18 15:36 DV [id number] 10/17/18 15:38 DV Document 10/24/18 14:38 DV [id number] 10/24/18 15:00 DV Document 10/31/18 15:12 DV [id number] 10/31/18 15:42 DV Document 11/07/18 15:44 DV [id number] 11/07/18 16:06 DV 10/17/18 10/24/18 10/31/18 15:36 14:38 15:12 Wound Center Nurse 2 #13 Right Lateral Posterior Calf -Time 15:36 -Correct Patient Yes -Correct Side, Site, Position Yes -Correct Procedure Yes -Procedure Performed Yes -Type of Procedure Debridement -Clinical Debridement Subcutaneous -Post Debridement Size (cm) - Length 0.4 -Post Debridement Size (cm) - Width 0.3 -Post Debridement Size (cm) - Depth 0.5 -Total Square Cm 0.12 -Wound/Ulcer Outcome Not Healed -Ulcer Cleansing Rinsed/ Irrigated with Saline -Foul Odor after Cleansing No -Bioengineered Tissue No -Bleeding Controlled with Pressure -Offloading No -Type of Offloading -Treatment Response Procedure Not Tolerated Well #12 Right Medial Heel -Time 15:37 14:44 15:30 -Correct Patient Yes Yes Yes -Correct Side, Site, Position Yes Yes Yes -Correct Procedure Yes Yes Yes -Procedure Performed Yes Yes Yes -Type of Procedure Debridement Debridement Debridement -Clinical Debridement Subcutaneous Subcutaneous Subcutaneous -Post Debridement Size (cm) - Length 0.3 0.5 0.6 -Post Debridement Size (cm) - Width 0.2 0.7 0.8 -Post Debridement Size (cm) - Depth 0.2 0.3 0.5 -Total Square Cm 0.06 0.35 0.48 -Wound/Ulcer Outcome Not Healed Not Healed Not Healed -Ulcer Cleansing Rinsed/ Rinsed/ Rinsed/ Irrigated with Irrigated with Irrigated with Saline Saline Saline -Foul Odor after Cleansing No No No -Bioengineered Tissue No No No -Type of bioengineered Tissue -Expiration Date -Product Lot Number -Percent Used -Saline Lot Number -Topical Lidocaine (%) -Injectable Lidocaine w/ Epi (%) -Injectable Lidocaine w/ Epi (mls) -Bleeding Controlled with Pressure Pressure Pressure -Offloading Yes No Yes -Type of Offloading Surgical Shoe Surgical Shoe -Treatment Response Procedure Procedure Procedure Not Tolerated Well Tolerated Well Tolerated Well #4 RIGHT ACHILLES -Time 15:38 14:44 15:39 -Correct Patient Yes Yes Yes -Correct Side, Site, Position Yes Yes Yes -Correct Procedure Yes Yes Yes -Procedure Performed Yes Yes Yes -Type of Procedure Debridement Debridement Debridement -Clinical Debridement Subcutaneous Subcutaneous Subcutaneous -Post Debridement Size (cm) - Length 0.8 0.4 0.3 -Post Debridement Size (cm) - Width 0.8 0.4 0.3 -Post Debridement Size (cm) - Depth 0.2 0.2 0.2 -Total Square Cm 0.64 0.16 0.09 -Wound/Ulcer Outcome Not Healed Not Healed Not Healed -Ulcer Cleansing Rinsed/ Rinsed/ Rinsed/ Irrigated with Irrigated with Irrigated with Saline Saline Saline -Foul Odor after Cleansing No No No -Bioengineered Tissue No No No -Type of bioengineered Tissue -Expiration Date -Product Lot Number -Percent Used -Saline Lot Number -Topical Lidocaine (%) -Injectable Lidocaine w/ Epi (%) -Injectable Lidocaine w/ Epi (mls) -Bleeding Controlled with Pressure Pressure Pressure -Offloading No No No -Type of Offloading Surgical Shoe -Treatment Response Procedure Procedure Procedure Not Tolerated Well Tolerated Well Tolerated Well #2 R Heel -Time 15:37 14:51 -Correct Patient Yes Yes -Correct Side, Site, Position Yes Yes -Correct Procedure Yes No -Procedure Performed Yes No -Type of Procedure Debridement -Clinical Debridement Subcutaneous -Post Debridement Size (cm) - Length 0.6 -Post Debridement Size (cm) - Width 0.6 -Post Debridement Size (cm) - Depth 0.3 -Total Square Cm 0.36 -Wound/Ulcer Outcome Not Healed Healed- Epithelialized -Ulcer Cleansing Rinsed/ Irrigated with Saline -Foul Odor after Cleansing No -Bioengineered Tissue No -Bleeding Controlled with Pressure -Offloading Yes -Treatment Response Procedure Tolerated Well Pain Scale: 0-10 Numeric Is Patient Pain Free? Yes Yes 11/07/18 15:44 Wound Center Nurse 2 #13 Right Lateral Posterior Calf -Time 15:47 -Correct Patient Yes -Correct Side, Site, Position Yes -Correct Procedure Yes -Procedure Performed Yes -Type of Procedure Debridement -Clinical Debridement Subcutaneous -Post Debridement Size (cm) - Length 0.3 -Post Debridement Size (cm) - Width 0.1 -Post Debridement Size (cm) - Depth 0.2 -Total Square Cm 0.03 -Wound/Ulcer Outcome Not Healed -Ulcer Cleansing Rinsed/ Irrigated with Saline -Foul Odor after Cleansing No -Bioengineered Tissue No -Bleeding Controlled with Pressure -Offloading Yes -Type of Offloading Surgical Shoe -Treatment Response Procedure Tolerated Well #12 Right Medial Heel -Time 15:54 -Correct Patient Yes -Correct Side, Site, Position Yes -Correct Procedure Yes -Procedure Performed Yes -Type of Procedure Debridement -Clinical Debridement Subcutaneous -Post Debridement Size (cm) - Length 0.8 -Post Debridement Size (cm) - Width 1.2 -Post Debridement Size (cm) - Depth 0.3 -Total Square Cm 0.96 -Wound/Ulcer Outcome Not Healed -Ulcer Cleansing Rinsed/ Irrigated with Saline -Foul Odor after Cleansing No -Bioengineered Tissue Yes -Type of bioengineered Tissue [place] -Expiration Date 01/31/19 -Product Lot Number [id number] -Percent Used 80 -Saline Lot Number [id number] -Topical Lidocaine (%) 5 -Injectable Lidocaine w/ Epi (%) 1 -Injectable Lidocaine w/ Epi (mls) 8 -Bleeding Controlled with Pressure -Offloading No -Type of Offloading Surgical Shoe -Treatment Response Procedure Tolerated Well #4 RIGHT ACHILLES -Time 15:48 -Correct Patient Yes -Correct Side, Site, Position Yes -Correct Procedure Yes -Procedure Performed Yes -Type of Procedure Debridement -Clinical Debridement Subcutaneous -Post Debridement Size (cm) - Length 0.2 -Post Debridement Size (cm) - Width 0.3 -Post Debridement Size (cm) - Depth 0.2 -Total Square Cm 0.06 -Wound/Ulcer Outcome Not Healed -Ulcer Cleansing Rinsed/ Irrigated with Saline -Foul Odor after Cleansing No -Bioengineered Tissue Yes -Type of bioengineered Tissue [place] -Expiration Date 01/31/19 -Product Lot Number [id number] -Percent Used 20 -Saline Lot Number [id number] -Topical Lidocaine (%) 5 -Injectable Lidocaine w/ Epi (%) 1 -Injectable Lidocaine w/ Epi (mls) 2 -Bleeding Controlled with Pressure -Offloading Yes -Type of Offloading Surgical Shoe -Treatment Response Procedure Tolerated Well #2 R Heel -Time -Correct Patient -Correct Side, Site, Position -Correct Procedure -Procedure Performed -Type of Procedure -Clinical Debridement -Post Debridement Size (cm) - Length -Post Debridement Size (cm) - Width -Post Debridement Size (cm) - Depth -Total Square Cm -Wound/Ulcer Outcome -Ulcer Cleansing -Foul Odor after Cleansing -Bioengineered Tissue -Bleeding Controlled with -Offloading -Treatment Response Pain Scale: 0-10 Numeric Is Patient Pain Free? Yes Wound debrided: right lateral posterior calf Laterality: Right Type of Debridement: Excisional debridement Anesthesia Used: 4% Lidocaine Solution, 5% Lidocaine Gel Depth: Down to and including healthy tissue, in the subcutaneous layer Percentage of wound debrided: 100 Instrument Used: 5mm curette Tissue Removed: yellow slough, devitalized tissue Severity: Fat Layer Exposed Amount of bleeding with debridement: Mild Bleeding Controlled with: Compression and gauze Patient tolerated procedure well - Additional Wound Wound debrided: right heel Laterality: Right Wound Grade/Stage: Valdez stage 2 Type of Debridement: Excisional debridement Anesthesia Used: 4% Lidocaine Solution, 5% Lidocaine Gel, Cetacaine Depth: Down to and including healthy tissue, in the subcutaneous layer Percentage of wound debrided: 100 Instrument Used: 5mm curette Tissue Removed: yellow slough, devitalized tissue Severity: Fat Layer Exposed Amount of bleeding with debridement: Mild Bleeding Controlled with: Compression and gauze Patient tolerated procedure: Patient tolerated procedure well - Additional Wound Wound debrided: right achilles Laterality: Right Wound Grade/Stage: Valdez grade 2 Type of Debridement: Excisional debridement Anesthesia Used: 4% Lidocaine Solution, 5% Lidocaine Gel Depth: Down to and including healthy tissue, in the subcutaneous layer Percentage of wound debrided: 100 Instrument Used: 5mm curette Tissue Removed: yellow slough, devitalized tissue Severity: Fat Layer Exposed Amount of bleeding with debridement: Mild Bleeding Controlled with: Compression and gauze Patient tolerated procedure: Patient tolerated procedure well Assessment/Plan Active Problems Type 2 diabetes, uncontrolled, with ulcer of heel (Chronic) right plantar heel and right achilles Peripheral vascular disease (Chronic) Type II diabetes mellitus (Chronic) Assessment: 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 Diabetes mellitus - uncontrolled. Peripheral vascular disease - status post revascularization 08/07/18. right pat venous ulcer - healed. stage 2 pressure ulcer coccyx - healed. right 3rd toe and right second toe ulcers, right great toe - healed Plan: Gibson's ulcers were evaluated and debrided today. There is mild improvement in his ulcers. [place] #3 applied today to his right heel and achilles ulcers per school secretary guidelines and secured with dermabond and covered with wound veil and steri-strips. Will have him change Aquacel over his wound veil every other day and ABD to right heel. Dr. Navas performed a SFA-ant. tib. bypass on his right leg on 08/07/18. Discussed offloading importance and encouraged continuing to use surgical shoe to offload his heel. Single layer tubigrip compression advised if he can tolerate this, avoidance of idle standing or sitting with legs hanging down. Encouraged improved control of his blood sugars. Encouraged him to seek consultation with pain management for his pain and gave him a 7 day RX (#56) for tramadol to use for pain as needed on 11/07/18. [place]ARRS checked and appropriate. Encouraged to call with increased drainage, redness or fever or chills. Will f/u in 1 week.
--- NOTE | 2018-11-07 20:11 | PN.PCM_ITS ---
(1) Type 2 diabetes, uncontrolled, with ulcer of heel Status: Chronic Current Visit: Yes Code(s): E11.621 - Type 2 diabetes mellitus with foot ulcer; E11.65 - Type 2 diabetes mellitus with hyperglycemia; L97.409 - Non-pressure chronic ulcer of unspecified heel and midfoot with unspecified severity Comment: right plantar heel and right achilles (2) Peripheral vascular disease Status: Chronic Current Visit: Yes Code(s): I73.9 - Peripheral vascular disease, unspecified (3) Type II diabetes mellitus Status: Chronic Current Visit: Yes Qualifiers: Diabetes mellitus care home insulin use: without care home use Diabetes mellitus complication status: with skin complications Diabetes mellitus complication detail: with foot ulcer Qualified Code(s): E11.621 - Type 2 diabetes mellitus with foot ulcer; L97.509 - Non-pressure chronic ulcer of other part of unspecified foot with unspecified severity Code(s): E11.9 - Type 2 diabetes mellitus without complications Type of Wound Date of Service: 11/07/18 Chief Complaint: Nonhealing ulcers right heel and calf History of Wound: This 68-year-old male is here for evaluation of an ulcer of his right heel and his right pat. He states that he has had an ulcer approx. 5 years ago of this same heel and was treated here and was healed after vascular interventions by Dr. Navas. He has noticed increased pain in his heel for the last few months and approx. beginning of May he noted an open wound to his right heel. He was using gauze but this started to irritate his skin and has been using silvadene and adaptic to the wound with tape for the last few weeks. He has not had any treatment with antibiotics for the wound. He is self-referred for treatment here. He does follow with Dr. 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 He has had procedures for his arterial disease in past to both of his lower extremities. From review of records it seems that Dr. Navas planned to do a right SFA-ant. tib bypass but it does not appear that this was done and patient denies having any bypass procedures other than his heart. It sounds like he is trying alternative treatments with supplements and chelation therapy. He also has diabetes and his last A1C several months ago was 7.2% but he stopped glyburide because he felt it was causing blisters of his legs. He does wear diabetic shoes. He has been undergoing chelation treatments by Dr. German in [place]. Dr. German prescribed him oxycodone-APAP 5/325 mg #60 which were filled on 05/22/18 for pain, he has six tablets left from this prescription, and he is asking for pain medication to treat pain from debridement. He reports having xrays done several months ago of his right heel due to pain which did not show any osteomyelitis or acute fractures. He denies fever, chills, erythema or heavy drainage. He reports significant pain and discomfort of his right heel and his entire right leg which no one can explain. Progress of Wound: Gibson is here to follow up for nonhealing ulcers of his right foot. He is tolerating dressings with Aquacel. He has completed antibiotoc traetment for positive wound cultures. He underwent artificial bypass graft of his ant. tibial to femoral artery on 08/07/18. He had an GA postoperatively and is being treated medically. He continues to have severe pain in his ankle/heel but it has improved. He has been trying to elevate his foot and has been using his surgical shoe to offload as well. Denies fever or chills or increased drainage. - Physical Exam Vital Signs Temp Pulse Resp BP 98.9 F 82 16 155/78 H 11/07/18 14:37 11/07/18 14:37 11/07/18 14:37 11/07/18 14:37 General: Alert, Oriented x3, Cooperative, No apparent distress HEENT: Atraumatic, Normocephalic Oral: Moist Mucosa Neck: Supple Extremities: Edema Skin: Ulcer/ Wound Wound Measurements and Assessment WC - Nurse 1 - General Ulcer Measurement Start: 10/17/18 14:10 Freq: Status: Active Protocol: Activity Type Activity Date Activity User E-Sign Co-Sign Detail Recorded Client Recorded Date Recorded By Document 11/07/18 14:37 [facility] [id number] 11/07/18 14:54 [facility] 11/07/18 14:37 Wound Center Nurse 1 [Ulcer Assessment] #13 Right Lateral Posterior Calf -Combined with other wound No -Current Size (cm) - Length 0.3 -Current Size (cm) - Width 0.1 -Current Size (cm) - Depth 0.2 -Total Square Cm 0.03 -Date of Last Picture (Recall this 11/07/18 field) -Photo Taken Yes -Epithelialization None Present -Tunneling No -Undermining/Tunneling No -Circular Undermining No -Exudate Amt Small -Exudate Type Serosanguineous -Wound Margin Distinct, Outline Attached -Granulation Amt Large (67-100%) -Granulation Quality [place] -Slough/Fibrin No -Necrosis Amt None Present (0 %) -Texture (Shahana-wound Skin Appearance) Assessed Scarring -Moisture (Shahana-wound Skin Appearance Assessed ) Dry/Scaly -Color (Shahana-wound Skin Appearance) Assessed -Temperature (Shahana-wound Skin No Abnormality Appearance) (Pt Warm) -Tenderness on Palpation (Shahana-wound Yes Skin Appearance) -Foul Odor after Cleansing No -Anesthetic Used 4% Lidocaine Solution #12 Right Medial Heel -Combined with other wound No -Current Size (cm) - Length 0.6 -Current Size (cm) - Width 0.8 -Current Size (cm) - Depth 0.3 -Total Square Cm 0.48 -Date of Last Picture (Recall this 11/07/18 field) -Photo Taken Yes -Epithelialization None Present -Tunneling No -Undermining/Tunneling No -Circular Undermining No -Exudate Amt Small -Exudate Type Serosanguineous -Wound Margin Distinct, Outline Attached -Granulation Amt Large (67-100%) -Granulation Quality [place] -Slough/Fibrin Yes -Necrosis Amt Small (1-33%) -Necrotic Tissue Type Adherent Slough -Texture (Shahana-wound Skin Appearance) Assessed Callus Scarring -Moisture (Shahana-wound Skin Appearance Assessed ) Dry/Scaly -Color (Shahana-wound Skin Appearance) Assessed -Temperature (Shahana-wound Skin No Abnormality Appearance) (Pt Warm) -Tenderness on Palpation (Shahana-wound Yes Skin Appearance) -Ulcer Cleansing Rinsed/ Irrigated with Saline -Foul Odor after Cleansing No -Anesthetic Used 4% Lidocaine Solution #4 RIGHT ACHILLES -Combined with other wound No -Current Size (cm) - Length 0.1 -Current Size (cm) - Width 0.1 -Current Size (cm) - Depth 0.1 -Total Square Cm 0.01 -Date of Last Picture (Recall this 11/07/18 field) -Photo Taken Yes -Epithelialization Large 67-100% -Texture (Shahana-wound Skin Appearance) Assessed Callus Scarring -Moisture (Shahana-wound Skin Appearance Assessed ) Dry/Scaly -Color (Shahana-wound Skin Appearance) Assessed -Temperature (Shahana-wound Skin No Abnormality Appearance) (Pt Warm) -Tenderness on Palpation (Shahana-wound Yes Skin Appearance) -Ulcer Cleansing Rinsed/ Irrigated with Saline -Foul Odor after Cleansing No -Anesthetic Used 4% Lidocaine Solution [Edema Assessment] -Lower Limb Edema Present Yes -Right Calf (cm) 34.5 -Right Ankle (cm) 21.5 WC - Nurse 2 - General Ulcer CM Notes Start: 10/17/18 14:10 Freq: Status: Active Protocol: Activity Type Activity Date Activity User E-Sign Co-Sign Detail Recorded Client Recorded Date Recorded By Document 11/07/18 15:44 DV [id number] 11/07/18 16:06 DV 11/07/18 15:44 Wound Center Nurse 2 [Procedure/Treatment] #13 Right Lateral Posterior Calf -Time 15:47 -Correct Patient Yes -Correct Side, Site, Position Yes -Correct Procedure Yes -Procedure Performed Yes -Type of Procedure Debridement -Clinical Debridement Subcutaneous -Post Debridement Size (cm) - Length 0.3 -Post Debridement Size (cm) - Width 0.1 -Post Debridement Size (cm) - Depth 0.2 -Total Square Cm 0.03 -Wound/Ulcer Outcome Not Healed -Ulcer Cleansing Rinsed/ Irrigated with Saline -Foul Odor after Cleansing No -Bioengineered Tissue No -Bleeding Controlled with Pressure -Offloading Yes -Type of Offloading Surgical Shoe -Treatment Response Procedure Tolerated Well #12 Right Medial Heel -Time 15:54 -Correct Patient Yes -Correct Side, Site, Position Yes -Correct Procedure Yes -Procedure Performed Yes -Type of Procedure Debridement -Clinical Debridement Subcutaneous -Post Debridement Size (cm) - Length 0.8 -Post Debridement Size (cm) - Width 1.2 -Post Debridement Size (cm) - Depth 0.3 -Total Square Cm 0.96 -Wound/Ulcer Outcome Not Healed -Ulcer Cleansing Rinsed/ Irrigated with Saline -Foul Odor after Cleansing No -Bioengineered Tissue Yes -Type of bioengineered Tissue [place] -Expiration Date 01/31/19 -Product Lot Number [id number] -Percent Used 80 -Saline Lot Number [id number] -Topical Lidocaine (%) 5 -Injectable Lidocaine w/ Epi (%) 1 -Injectable Lidocaine w/ Epi (mls) 8 -Bleeding Controlled with Pressure -Offloading No -Type of Offloading Surgical Shoe -Treatment Response Procedure Tolerated Well #4 RIGHT ACHILLES -Time 15:48 -Correct Patient Yes -Correct Side, Site, Position Yes -Correct Procedure Yes -Procedure Performed Yes -Type of Procedure Debridement -Clinical Debridement Subcutaneous -Post Debridement Size (cm) - Length 0.2 -Post Debridement Size (cm) - Width 0.3 -Post Debridement Size (cm) - Depth 0.2 -Total Square Cm 0.06 -Wound/Ulcer Outcome Not Healed -Ulcer Cleansing Rinsed/ Irrigated with Saline -Foul Odor after Cleansing No -Bioengineered Tissue Yes -Type of bioengineered Tissue [place] -Expiration Date 01/31/19 -Product Lot Number [id number] -Percent Used 20 -Saline Lot Number [id number] -Topical Lidocaine (%) 5 -Injectable Lidocaine w/ Epi (%) 1 -Injectable Lidocaine w/ Epi (mls) 2 -Bleeding Controlled with Pressure -Offloading Yes -Type of Offloading Surgical Shoe -Treatment Response Procedure Tolerated Well [See Physician Procedure note for Specifics] Pain Scale: 0-10 Numeric [Pain] -Is Patient Pain Free? Yes Psych/Mental Status: Normal Affect, Appropriate Debridement Note Post-Debridement Measurements/Treatment WC - Nurse 2 - General Ulcer CM Notes Start: 10/17/18 14:10 Freq: Status: Active Protocol: Activity Type Activity Date Activity User E-Sign Co-Sign Detail Recorded Client Recorded Date Recorded By Document 10/17/18 15:36 DV [id number] 10/17/18 15:38 DV Document 10/24/18 14:38 DV [id number] 10/24/18 15:00 DV Document 10/31/18 15:12 DV [id number] 10/31/18 15:42 DV Document 11/07/18 15:44 DV [id number] 11/07/18 16:06 DV 10/17/18 10/24/18 10/31/18 15:36 14:38 15:12 Wound Center Nurse 2 #13 Right Lateral Posterior Calf -Time 15:36 -Correct Patient Yes -Correct Side, Site, Position Yes -Correct Procedure Yes -Procedure Performed Yes -Type of Procedure Debridement -Clinical Debridement Subcutaneous -Post Debridement Size (cm) - Length 0.4 -Post Debridement Size (cm) - Width 0.3 -Post Debridement Size (cm) - Depth 0.5 -Total Square Cm 0.12 -Wound/Ulcer Outcome Not Healed -Ulcer Cleansing Rinsed/ Irrigated with Saline -Foul Odor after Cleansing No -Bioengineered Tissue No -Bleeding Controlled with Pressure -Offloading No -Type of Offloading -Treatment Response Procedure Not Tolerated Well #12 Right Medial Heel -Time 15:37 14:44 15:30 -Correct Patient Yes Yes Yes -Correct Side, Site, Position Yes Yes Yes -Correct Procedure Yes Yes Yes -Procedure Performed Yes Yes Yes -Type of Procedure Debridement Debridement Debridement -Clinical Debridement Subcutaneous Subcutaneous Subcutaneous -Post Debridement Size (cm) - Length 0.3 0.5 0.6 -Post Debridement Size (cm) - Width 0.2 0.7 0.8 -Post Debridement Size (cm) - Depth 0.2 0.3 0.5 -Total Square Cm 0.06 0.35 0.48 -Wound/Ulcer Outcome Not Healed Not Healed Not Healed -Ulcer Cleansing Rinsed/ Rinsed/ Rinsed/ Irrigated with Irrigated with Irrigated with Saline Saline Saline -Foul Odor after Cleansing No No No -Bioengineered Tissue No No No -Type of bioengineered Tissue -Expiration Date -Product Lot Number -Percent Used -Saline Lot Number -Topical Lidocaine (%) -Injectable Lidocaine w/ Epi (%) -Injectable Lidocaine w/ Epi (mls) -Bleeding Controlled with Pressure Pressure Pressure -Offloading Yes No Yes -Type of Offloading Surgical Shoe Surgical Shoe -Treatment Response Procedure Procedure Procedure Not Tolerated Well Tolerated Well Tolerated Well #4 RIGHT ACHILLES -Time 15:38 14:44 15:39 -Correct Patient Yes Yes Yes -Correct Side, Site, Position Yes Yes Yes -Correct Procedure Yes Yes Yes -Procedure Performed Yes Yes Yes -Type of Procedure Debridement Debridement Debridement -Clinical Debridement Subcutaneous Subcutaneous Subcutaneous -Post Debridement Size (cm) - Length 0.8 0.4 0.3 -Post Debridement Size (cm) - Width 0.8 0.4 0.3 -Post Debridement Size (cm) - Depth 0.2 0.2 0.2 -Total Square Cm 0.64 0.16 0.09 -Wound/Ulcer Outcome Not Healed Not Healed Not Healed -Ulcer Cleansing Rinsed/ Rinsed/ Rinsed/ Irrigated with Irrigated with Irrigated with Saline Saline Saline -Foul Odor after Cleansing No No No -Bioengineered Tissue No No No -Type of bioengineered Tissue -Expiration Date -Product Lot Number -Percent Used -Saline Lot Number -Topical Lidocaine (%) -Injectable Lidocaine w/ Epi (%) -Injectable Lidocaine w/ Epi (mls) -Bleeding Controlled with Pressure Pressure Pressure -Offloading No No No -Type of Offloading Surgical Shoe -Treatment Response Procedure Procedure Procedure Not Tolerated Well Tolerated Well Tolerated Well #2 R Heel -Time 15:37 14:51 -Correct Patient Yes Yes -Correct Side, Site, Position Yes Yes -Correct Procedure Yes No -Procedure Performed Yes No -Type of Procedure Debridement -Clinical Debridement Subcutaneous -Post Debridement Size (cm) - Length 0.6 -Post Debridement Size (cm) - Width 0.6 -Post Debridement Size (cm) - Depth 0.3 -Total Square Cm 0.36 -Wound/Ulcer Outcome Not Healed Healed- Epithelialized -Ulcer Cleansing Rinsed/ Irrigated with Saline -Foul Odor after Cleansing No -Bioengineered Tissue No -Bleeding Controlled with Pressure -Offloading Yes -Treatment Response Procedure Tolerated Well Pain Scale: 0-10 Numeric Is Patient Pain Free? Yes Yes 11/07/18 15:44 Wound Center Nurse 2 #13 Right Lateral Posterior Calf -Time 15:47 -Correct Patient Yes -Correct Side, Site, Position Yes -Correct Procedure Yes -Procedure Performed Yes -Type of Procedure Debridement -Clinical Debridement Subcutaneous -Post Debridement Size (cm) - Length 0.3 -Post Debridement Size (cm) - Width 0.1 -Post Debridement Size (cm) - Depth 0.2 -Total Square Cm 0.03 -Wound/Ulcer Outcome Not Healed -Ulcer Cleansing Rinsed/ Irrigated with Saline -Foul Odor after Cleansing No -Bioengineered Tissue No -Bleeding Controlled with Pressure -Offloading Yes -Type of Offloading Surgical Shoe -Treatment Response Procedure Tolerated Well #12 Right Medial Heel -Time 15:54 -Correct Patient Yes -Correct Side, Site, Position Yes -Correct Procedure Yes -Procedure Performed Yes -Type of Procedure Debridement -Clinical Debridement Subcutaneous -Post Debridement Size (cm) - Length 0.8 -Post Debridement Size (cm) - Width 1.2 -Post Debridement Size (cm) - Depth 0.3 -Total Square Cm 0.96 -Wound/Ulcer Outcome Not Healed -Ulcer Cleansing Rinsed/ Irrigated with Saline -Foul Odor after Cleansing No -Bioengineered Tissue Yes -Type of bioengineered Tissue [place] -Expiration Date 01/31/19 -Product Lot Number [id number] -Percent Used 80 -Saline Lot Number [id number] -Topical Lidocaine (%) 5 -Injectable Lidocaine w/ Epi (%) 1 -Injectable Lidocaine w/ Epi (mls) 8 -Bleeding Controlled with Pressure -Offloading No -Type of Offloading Surgical Shoe -Treatment Response Procedure Tolerated Well #4 RIGHT ACHILLES -Time 15:48 -Correct Patient Yes -Correct Side, Site, Position Yes -Correct Procedure Yes -Procedure Performed Yes -Type of Procedure Debridement -Clinical Debridement Subcutaneous -Post Debridement Size (cm) - Length 0.2 -Post Debridement Size (cm) - Width 0.3 -Post Debridement Size (cm) - Depth 0.2 -Total Square Cm 0.06 -Wound/Ulcer Outcome Not Healed -Ulcer Cleansing Rinsed/ Irrigated with Saline -Foul Odor after Cleansing No -Bioengineered Tissue Yes -Type of bioengineered Tissue [place] -Expiration Date 01/31/19 -Product Lot Number [id number] -Percent Used 20 -Saline Lot Number [id number] -Topical Lidocaine (%) 5 -Injectable Lidocaine w/ Epi (%) 1 -Injectable Lidocaine w/ Epi (mls) 2 -Bleeding Controlled with Pressure -Offloading Yes -Type of Offloading Surgical Shoe -Treatment Response Procedure Tolerated Well #2 R Heel -Time -Correct Patient -Correct Side, Site, Position -Correct Procedure -Procedure Performed -Type of Procedure -Clinical Debridement -Post Debridement Size (cm) - Length -Post Debridement Size (cm) - Width -Post Debridement Size (cm) - Depth -Total Square Cm -Wound/Ulcer Outcome -Ulcer Cleansing -Foul Odor after Cleansing -Bioengineered Tissue -Bleeding Controlled with -Offloading -Treatment Response Pain Scale: 0-10 Numeric Is Patient Pain Free? Yes Wound debrided: right lateral posterior calf Laterality: Right Type of Debridement: Excisional debridement Anesthesia Used: 4% Lidocaine Solution, 5% Lidocaine Gel Depth: Down to and including healthy tissue, in the subcutaneous layer Percentage of wound debrided: 100 Instrument Used: 5mm curette Tissue Removed: yellow slough, devitalized tissue Severity: Fat Layer Exposed Amount of bleeding with debridement: Mild Bleeding Controlled with: Compression and gauze Patient tolerated procedure well - Additional Wound Wound debrided: right heel Laterality: Right Wound Grade/Stage: Valdez stage 2 Type of Debridement: Excisional debridement Anesthesia Used: 4% Lidocaine Solution, 5% Lidocaine Gel, Cetacaine Depth: Down to and including healthy tissue, in the subcutaneous layer Percentage of wound debrided: 100 Instrument Used: 5mm curette Tissue Removed: yellow slough, devitalized tissue Severity: Fat Layer Exposed Amount of bleeding with debridement: Mild Bleeding Controlled with: Compression and gauze Patient tolerated procedure: Patient tolerated procedure well - Additional Wound Wound debrided: right achilles Laterality: Right Wound Grade/Stage: Valdez grade 2 Type of Debridement: Excisional debridement Anesthesia Used: 4% Lidocaine Solution, 5% Lidocaine Gel Depth: Down to and including healthy tissue, in the subcutaneous layer Percentage of wound debrided: 100 Instrument Used: 5mm curette Tissue Removed: yellow slough, devitalized tissue Severity: Fat Layer Exposed Amount of bleeding with debridement: Mild Bleeding Controlled with: Compression and gauze Patient tolerated procedure: Patient tolerated procedure well Assessment/Plan Active Problems Type 2 diabetes, uncontrolled, with ulcer of heel (Chronic) right plantar heel and right achilles Peripheral vascular disease (Chronic) Type II diabetes mellitus (Chronic) Assessment: 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 Diabetes mellitus - uncontrolled. Peripheral vascular disease - status post revascularization 08/07/18. right pat venous ulcer - healed. stage 2 pressure ulcer coccyx - healed. right 3rd toe and right second toe ulcers, right great toe - healed Plan: Gibson's ulcers were evaluated and debrided today. There is mild improvement in his ulcers. [place] #3 applied today to his right heel and achilles ulcers per prize coordinator guidelines and secured with dermabond and covered with wound veil and steri-strips. Will have him change Aquacel over his wound veil every other day and ABD to right heel. Dr. Navas performed a SFA- ant. tib. bypass on his right leg on 08/07/18. Discussed offloading importance and encouraged continuing to use surgical shoe to offload his heel. Single layer tubigrip compression advised if he can tolerate this, avoidance of idle standing or sitting with legs hanging down. Encouraged improved control of his blood sugars. Encouraged him to seek consultation with pain management for his pain and gave him a 7 day RX (#56) for tramadol to use for pain as needed on 11/07/18. [place]ARRS checked and appropriate. Encouraged to call with increased drainage, redness or fever or chills. Will f/u in 1 week.
[2018-11-14 15:52] VITALS: BP 127/68; PULSE 98; RESP 20; TEMP 36.4; BMI 24.9
--- NOTE | 2018-11-14 17:11 | PCM.WC.PN ---
(1) Type 2 diabetes, uncontrolled, with ulcer of heel Status: Chronic Current Visit: Yes Code(s): E11.621 - Type 2 diabetes mellitus with foot ulcer; E11.65 - Type 2 diabetes mellitus with hyperglycemia; L97.409 - Non-pressure chronic ulcer of unspecified heel and midfoot with unspecified severity Comment: right plantar heel and right achilles (2) Peripheral vascular disease Status: Chronic Current Visit: Yes Code(s): I73.9 - Peripheral vascular disease, unspecified (3) Type II diabetes mellitus Status: Chronic Current Visit: Yes Qualifiers: Diabetes mellitus intermediate insulin use: without intermediate use Diabetes mellitus complication status: with skin complications Diabetes mellitus complication detail: with foot ulcer Qualified Code(s): E11.621 - Type 2 diabetes mellitus with foot ulcer; L97.509 - Non-pressure chronic ulcer of other part of unspecified foot with unspecified severity Code(s): E11.9 - Type 2 diabetes mellitus without complications (4) Varicose veins of right lower extremity with ulcer Status: Chronic Current Visit: Yes Qualifiers: Lower extremity ulceration location: calf Non-pressure ulcer stage: with fat layer exposed Qualified Code(s): I83.012 - Varicose veins of right lower extremity with ulcer of calf; L97.212 - Non-pressure chronic ulcer of right calf with fat layer exposed Code(s): I83.019 - Varicose veins of right lower extremity with ulcer of unspecified site; L97.919 - Non-pressure chronic ulcer of unspecified part of right lower leg with unspecified severity Type of Wound Date of Service: 11/14/18 Chief Complaint: Nonhealing ulcers right heel and calf History of Wound: This 68-year-old male is here for evaluation of an ulcer of his right heel and his right pat. He states that he has had an ulcer approx. 5 years ago of this same heel and was treated here and was healed after vascular interventions by Dr. Navas. He has noticed increased pain in his heel for the last few months and approx. beginning of May he noted an open wound to his right heel. He was using gauze but this started to irritate his skin and has been using silvadene and adaptic to the wound with tape for the last few weeks. He has not had any treatment with antibiotics for the wound. He is self-referred for treatment here. He does follow with Dr. 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 He has had procedures for his arterial disease in past to both of his lower extremities. From review of records it seems that Dr. Navas planned to do a right SFA-ant. tib bypass but it does not appear that this was done and patient denies having any bypass procedures other than his heart. It sounds like he is trying alternative treatments with supplements and chelation therapy. He also has diabetes and his last A1C several months ago was 7.2% but he stopped glyburide because he felt it was causing blisters of his legs. He does wear diabetic shoes. He has been undergoing chelation treatments by Dr. German in [place]. Dr. German prescribed him oxycodone-APAP 5/325 mg #60 which were filled on 05/22/18 for pain, he has six tablets left from this prescription, and he is asking for pain medication to treat pain from debridement. He reports having xrays done several months ago of his right heel due to pain which did not show any osteomyelitis or acute fractures. He denies fever, chills, erythema or heavy drainage. He reports significant pain and discomfort of his right heel and his entire right leg which no one can explain. Progress of Wound: Gibson is here to follow up for nonhealing ulcers of his right foot and anna ulcer of right calf. He is tolerating dressings with Aquacel to his right calf. Theraskin was applied last week and he tolerated this well. Wound veil and steri-strips were intact. He underwent artificial bypass graft of his ant. tibial to femoral artery on 08/07/18. He had an TN postoperatively and is being treated medically. He continues to have severe pain in his ankle/heel but it has improved. He has been trying to elevate his foot and has been using his surgical shoe to offload as well. Denies fever or chills or increased drainage. - Physical Exam Vital Signs Temp Pulse Resp BP 97.5 F L 98 20 H 127/68 H 11/14/18 15:52 11/14/18 15:52 11/14/18 15:52 11/14/18 15:52 General: Alert, Oriented x3, Cooperative, No apparent distress HEENT: Atraumatic, Normocephalic Oral: Moist Mucosa Extremities: Edema Skin: Ulcer/ Wound Wound Measurements and Assessment WC - Nurse 1 - General Ulcer Measurement Start: 10/17/18 14:10 Freq: Status: Active Protocol: Activity Type Activity Date Activity User E-Sign Co-Sign Detail Recorded Client Recorded Date Recorded By Document 11/14/18 15:52 DL [id number] 11/14/18 15:59 DL 11/14/18 15:52 Wound Center Nurse 1 [Ulcer Assessment] #13 Right Lateral Posterior Calf -Current Size (cm) - Length 0.1 -Current Size (cm) - Width 0.1 -Current Size (cm) - Depth 0.1 -Total Square Cm 0.01 -Exudate Amt Small -Exudate Type Serosanguineous -Color (Shahana-wound Skin Appearance) Hemosiderin Staining -Temperature (Shahana-wound Skin No Abnormality Appearance) (Pt Warm) -Tenderness on Palpation (Shahana-wound No Skin Appearance) -Ulcer Cleansing Wound Cleanser -Foul Odor after Cleansing No #12 Right Medial Heel -Current Size (cm) - Length 0.1 -Current Size (cm) - Width 0.1 -Current Size (cm) - Depth 0.1 -Total Square Cm 0.01 -Photo Taken No -Exudate Amt Small -Exudate Type Serosanguineous -Color (Shahana-wound Skin Appearance) Hemosiderin Staining -Temperature (Shahana-wound Skin No Abnormality Appearance) (Pt Warm) -Tenderness on Palpation (Shahana-wound No Skin Appearance) -Ulcer Cleansing Wound Cleanser -Foul Odor after Cleansing No #4 RIGHT ACHILLES -Current Size (cm) - Length 0.1 -Current Size (cm) - Width 0.1 -Current Size (cm) - Depth 0.1 -Total Square Cm 0.01 -Photo Taken No -Exudate Amt Small -Exudate Type Serosanguineous -Temperature (Shahana-wound Skin No Abnormality Appearance) (Pt Warm) -Tenderness on Palpation (Shahana-wound No Skin Appearance) -Ulcer Cleansing Wound Cleanser -Foul Odor after Cleansing No [Edema Assessment] -Right Calf (cm) 32.5 -Right Ankle (cm) 21.2 WC - Nurse 2 - General Ulcer CM Notes Start: 10/17/18 14:10 Freq: Status: Active Protocol: Activity Type Activity Date Activity User E-Sign Co-Sign Detail Recorded Client Recorded Date Recorded By Document 11/14/18 16:06 MW [id number] 11/14/18 16:17 MW 11/14/18 16:06 Wound Center Nurse 2 [Procedure/Treatment] #13 Right Lateral Posterior Calf -Time 16:08 -Correct Patient Yes -Correct Side, Site, Position Yes -Correct Procedure Yes -Procedure Performed No -Wound/Ulcer Outcome Not Healed -Ulcer Cleansing Rinsed/ Irrigated with Saline -Foul Odor after Cleansing No -Bioengineered Tissue No -Bleeding Controlled with Pressure -Offloading No -Treatment Response Procedure Tolerated Well #12 Right Medial Heel -Time 16:08 -Correct Patient Yes -Correct Side, Site, Position Yes -Correct Procedure Yes -Procedure Performed No -Post Debridement Size (cm) - Length 0.4 -Post Debridement Size (cm) - Width 0.8 -Post Debridement Size (cm) - Depth 0.2 -Total Square Cm 0.32 -Wound/Ulcer Outcome Not Healed -Ulcer Cleansing Rinsed/ Irrigated with Saline -Foul Odor after Cleansing No -Bioengineered Tissue No -Bleeding Controlled with Pressure -Offloading No -Treatment Response Procedure Tolerated Well #4 RIGHT ACHILLES -Time 16:07 -Correct Patient Yes -Correct Side, Site, Position Yes -Correct Procedure Yes -Procedure Performed No -Post Debridement Size (cm) - Length 0.1 -Post Debridement Size (cm) - Width 0.1 -Post Debridement Size (cm) - Depth 0.1 -Total Square Cm 0.01 -Wound/Ulcer Outcome Not Healed -Ulcer Cleansing Rinsed/ Irrigated with Saline -Foul Odor after Cleansing No -Bioengineered Tissue No -Bleeding Controlled with Pressure -Offloading No -Treatment Response Procedure Tolerated Well [See Physician Procedure note for Specifics] Pain Scale: 0-10 Numeric [Pain] -Is Patient Pain Free? Yes Psych/Mental Status: Normal Affect, Appropriate Debridement Note Post-Debridement Measurements/Treatment WC - Nurse 2 - General Ulcer CM Notes Start: 10/17/18 14:10 Freq: Status: Active Protocol: Activity Type Activity Date Activity User E-Sign Co-Sign Detail Recorded Client Recorded Date Recorded By Document 10/17/18 15:36 DV [id number] 10/17/18 15:38 DV Document 10/24/18 14:38 DV [id number] 10/24/18 15:00 DV Document 10/31/18 15:12 DV [id number] 10/31/18 15:42 DV Document 11/07/18 15:44 DV [id number] 11/07/18 16:06 DV Document 11/14/18 16:06 MW [id number] 11/14/18 16:17 MW 10/17/18 10/24/18 10/31/18 15:36 14:38 15:12 Wound Center Nurse 2 #13 Right Lateral Posterior Calf -Time 15:36 -Correct Patient Yes -Correct Side, Site, Position Yes -Correct Procedure Yes -Procedure Performed Yes -Type of Procedure Debridement -Clinical Debridement Subcutaneous -Post Debridement Size (cm) - Length 0.4 -Post Debridement Size (cm) - Width 0.3 -Post Debridement Size (cm) - Depth 0.5 -Total Square Cm 0.12 -Wound/Ulcer Outcome Not Healed -Ulcer Cleansing Rinsed/ Irrigated with Saline -Foul Odor after Cleansing No -Bioengineered Tissue No -Bleeding Controlled with Pressure -Offloading No -Type of Offloading -Treatment Response Procedure Not Tolerated Well #12 Right Medial Heel -Time 15:37 14:44 15:30 -Correct Patient Yes Yes Yes -Correct Side, Site, Position Yes Yes Yes -Correct Procedure Yes Yes Yes -Procedure Performed Yes Yes Yes -Type of Procedure Debridement Debridement Debridement -Clinical Debridement Subcutaneous Subcutaneous Subcutaneous -Post Debridement Size (cm) - Length 0.3 0.5 0.6 -Post Debridement Size (cm) - Width 0.2 0.7 0.8 -Post Debridement Size (cm) - Depth 0.2 0.3 0.5 -Total Square Cm 0.06 0.35 0.48 -Wound/Ulcer Outcome Not Healed Not Healed Not Healed -Ulcer Cleansing Rinsed/ Rinsed/ Rinsed/ Irrigated with Irrigated with Irrigated with Saline Saline Saline -Foul Odor after Cleansing No No No -Bioengineered Tissue No No No -Type of bioengineered Tissue -Expiration Date -Product Lot Number -Percent Used -Saline Lot Number -Topical Lidocaine (%) -Injectable Lidocaine w/ Epi (%) -Injectable Lidocaine w/ Epi (mls) -Bleeding Controlled with Pressure Pressure Pressure -Offloading Yes No Yes -Type of Offloading Surgical Shoe Surgical Shoe -Treatment Response Procedure Procedure Procedure Not Tolerated Well Tolerated Well Tolerated Well #4 RIGHT ACHILLES -Time 15:38 14:44 15:39 -Correct Patient Yes Yes Yes -Correct Side, Site, Position Yes Yes Yes -Correct Procedure Yes Yes Yes -Procedure Performed Yes Yes Yes -Type of Procedure Debridement Debridement Debridement -Clinical Debridement Subcutaneous Subcutaneous Subcutaneous -Post Debridement Size (cm) - Length 0.8 0.4 0.3 -Post Debridement Size (cm) - Width 0.8 0.4 0.3 -Post Debridement Size (cm) - Depth 0.2 0.2 0.2 -Total Square Cm 0.64 0.16 0.09 -Wound/Ulcer Outcome Not Healed Not Healed Not Healed -Ulcer Cleansing Rinsed/ Rinsed/ Rinsed/ Irrigated with Irrigated with Irrigated with Saline Saline Saline -Foul Odor after Cleansing No No No -Bioengineered Tissue No No No -Type of bioengineered Tissue -Expiration Date -Product Lot Number -Percent Used -Saline Lot Number -Topical Lidocaine (%) -Injectable Lidocaine w/ Epi (%) -Injectable Lidocaine w/ Epi (mls) -Bleeding Controlled with Pressure Pressure Pressure -Offloading No No No -Type of Offloading Surgical Shoe -Treatment Response Procedure Procedure Procedure Not Tolerated Well Tolerated Well Tolerated Well #2 R Heel -Time 15:37 14:51 -Correct Patient Yes Yes -Correct Side, Site, Position Yes Yes -Correct Procedure Yes No -Procedure Performed Yes No -Type of Procedure Debridement -Clinical Debridement Subcutaneous -Post Debridement Size (cm) - Length 0.6 -Post Debridement Size (cm) - Width 0.6 -Post Debridement Size (cm) - Depth 0.3 -Total Square Cm 0.36 -Wound/Ulcer Outcome Not Healed Healed- Epithelialized -Ulcer Cleansing Rinsed/ Irrigated with Saline -Foul Odor after Cleansing No -Bioengineered Tissue No -Bleeding Controlled with Pressure -Offloading Yes -Treatment Response Procedure Tolerated Well Pain Scale: 0-10 Numeric Is Patient Pain Free? Yes Yes 11/07/18 11/14/18 15:44 16:06 Wound Center Nurse 2 #13 Right Lateral Posterior Calf -Time 15:47 16:08 -Correct Patient Yes Yes -Correct Side, Site, Position Yes Yes -Correct Procedure Yes Yes -Procedure Performed Yes No -Type of Procedure Debridement -Clinical Debridement Subcutaneous -Post Debridement Size (cm) - Length 0.3 -Post Debridement Size (cm) - Width 0.1 -Post Debridement Size (cm) - Depth 0.2 -Total Square Cm 0.03 -Wound/Ulcer Outcome Not Healed Not Healed -Ulcer Cleansing Rinsed/ Rinsed/ Irrigated with Irrigated with Saline Saline -Foul Odor after Cleansing No No -Bioengineered Tissue No No -Bleeding Controlled with Pressure Pressure -Offloading Yes No -Type of Offloading Surgical Shoe -Treatment Response Procedure Procedure Tolerated Well Tolerated Well #12 Right Medial Heel -Time 15:54 16:08 -Correct Patient Yes Yes -Correct Side, Site, Position Yes Yes -Correct Procedure Yes Yes -Procedure Performed Yes No -Type of Procedure Debridement -Clinical Debridement Subcutaneous -Post Debridement Size (cm) - Length 0.8 0.4 -Post Debridement Size (cm) - Width 1.2 0.8 -Post Debridement Size (cm) - Depth 0.3 0.2 -Total Square Cm 0.96 0.32 -Wound/Ulcer Outcome Not Healed Not Healed -Ulcer Cleansing Rinsed/ Rinsed/ Irrigated with Irrigated with Saline Saline -Foul Odor after Cleansing No No -Bioengineered Tissue Yes No -Type of bioengineered Tissue [place] -Expiration Date 01/31/19 -Product Lot Number [id number] -Percent Used 80 -Saline Lot Number [id number] -Topical Lidocaine (%) 5 -Injectable Lidocaine w/ Epi (%) 1 -Injectable Lidocaine w/ Epi (mls) 8 -Bleeding Controlled with Pressure Pressure -Offloading No No -Type of Offloading Surgical Shoe -Treatment Response Procedure Procedure Tolerated Well Tolerated Well #4 RIGHT ACHILLES -Time 15:48 16:07 -Correct Patient Yes Yes -Correct Side, Site, Position Yes Yes -Correct Procedure Yes Yes -Procedure Performed Yes No -Type of Procedure Debridement -Clinical Debridement Subcutaneous -Post Debridement Size (cm) - Length 0.2 0.1 -Post Debridement Size (cm) - Width 0.3 0.1 -Post Debridement Size (cm) - Depth 0.2 0.1 -Total Square Cm 0.06 0.01 -Wound/Ulcer Outcome Not Healed Not Healed -Ulcer Cleansing Rinsed/ Rinsed/ Irrigated with Irrigated with Saline Saline -Foul Odor after Cleansing No No -Bioengineered Tissue Yes No -Type of bioengineered Tissue [place] -Expiration Date 01/31/19 -Product Lot Number [id number] -Percent Used 20 -Saline Lot Number [id number] -Topical Lidocaine (%) 5 -Injectable Lidocaine w/ Epi (%) 1 -Injectable Lidocaine w/ Epi (mls) 2 -Bleeding Controlled with Pressure Pressure -Offloading Yes No -Type of Offloading Surgical Shoe -Treatment Response Procedure Procedure Tolerated Well Tolerated Well #2 R Heel -Time -Correct Patient -Correct Side, Site, Position -Correct Procedure -Procedure Performed -Type of Procedure -Clinical Debridement -Post Debridement Size (cm) - Length -Post Debridement Size (cm) - Width -Post Debridement Size (cm) - Depth -Total Square Cm -Wound/Ulcer Outcome -Ulcer Cleansing -Foul Odor after Cleansing -Bioengineered Tissue -Bleeding Controlled with -Offloading -Treatment Response Pain Scale: 0-10 Numeric Is Patient Pain Free? Yes Yes Wound debrided: right lateral posterior calf Laterality: Right No debridement was completed today - no slough to debride - Additional Wound Wound debrided: right medial heel Laterality: Right Wound Grade/Stage: Valdez grade 2 Operative Diagnosis: no debridement completed - wound veil removed, Theraskin removed in process - Additional Wound Wound debrided: Right Achilles Laterality: Right Wound Grade/Stage: Valdez grade 2 Operative Diagnosis: no debridement completed - wound veil removed, Theraskin removed in process Assessment/Plan Active Problems Type 2 diabetes, uncontrolled, with ulcer of heel (Chronic) right plantar heel and right achilles Varicose veins of right lower extremity with ulcer (Chronic) Peripheral vascular disease (Chronic) Type II diabetes mellitus (Chronic) Assessment: 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 Diabetes mellitus - uncontrolled. Peripheral vascular disease - status post revascularization 08/07/18. right pat venous ulcer - healed. stage 2 pressure ulcer coccyx - healed. right 3rd toe and right second toe ulcers, right great toe - healed Plan: Gibson's ulcers were evaluated today. There is improvement in his ulcers. Theraskin #4 will be applied next week to his right heel and achilles ulcers if necessary. Will have him use Aquacel to his wounds every other day and cover with ABD to his right heel for heavy drainage. Dr. Navas performed a SFA-ant. tib. bypass on his right leg on 08/07/18. Discussed offloading importance and encouraged continuing to use surgical shoe to offload his heel. Single layer tubigrip compression advised if he can tolerate this, avoidance of idle standing or sitting with legs hanging down. Encouraged improved control of his blood sugars. Encouraged him to seek consultation with pain management for his pain and gave him a 7 day RX (#56) for tramadol to use for pain as needed on 11/07/18. OARRS checked and appropriate. Encouraged to call with increased drainage, redness or fever or chills. Will f/u in 1 week.
--- NOTE | 2018-11-14 17:15 | PN.PCM_ITS ---
(1) Type 2 diabetes, uncontrolled, with ulcer of heel Status: Chronic Current Visit: Yes Code(s): E11.621 - Type 2 diabetes mellitus with foot ulcer; E11.65 - Type 2 diabetes mellitus with hyperglycemia; L97.409 - Non-pressure chronic ulcer of unspecified heel and midfoot with unspecified severity Comment: right plantar heel and right achilles (2) Peripheral vascular disease Status: Chronic Current Visit: Yes Code(s): I73.9 - Peripheral vascular disease, unspecified (3) Type II diabetes mellitus Status: Chronic Current Visit: Yes Qualifiers: Diabetes mellitus senior care insulin use: without senior care use Diabetes mellitus complication status: with skin complications Diabetes mellitus complication detail: with foot ulcer Qualified Code(s): E11.621 - Type 2 diabetes mellitus with foot ulcer; L97.509 - Non-pressure chronic ulcer of other part of unspecified foot with unspecified severity Code(s): E11.9 - Type 2 diabetes mellitus without complications (4) Varicose veins of right lower extremity with ulcer Status: Chronic Current Visit: Yes Qualifiers: Lower extremity ulceration location: calf Non-pressure ulcer stage: with fat layer exposed Qualified Code(s): I83.012 - Varicose veins of right lower extremity with ulcer of calf; L97.212 - Non-pressure chronic ulcer of right calf with fat layer exposed Code(s): I83.019 - Varicose veins of right lower extremity with ulcer of unspecified site; L97.919 - Non-pressure chronic ulcer of unspecified part of right lower leg with unspecified severity Type of Wound Date of Service: 11/14/18 Chief Complaint: Nonhealing ulcers right heel and calf History of Wound: This 68-year-old male is here for evaluation of an ulcer of his right heel and his right pat. He states that he has had an ulcer approx. 5 years ago of this same heel and was treated here and was healed after vascular interventions by Dr. Navas. He has noticed increased pain in his heel for the last few months and approx. beginning of May he noted an open wound to his right heel. He was using gauze but this started to irritate his skin and has been using silvadene and adaptic to the wound with tape for the last few weeks. He has not had any treatment with antibiotics for the wound. He is self-referred for treatment here. He does follow with Dr. 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 He has had procedures for his arterial disease in past to both of his lower extremities. From review of records it seems that Dr. Navas planned to do a right SFA-ant. tib bypass but it does not appear that this was done and patient denies having any bypass procedures other than his heart. It sounds like he is trying alternative treatments with supplements and chelation therapy. He also has diabetes and his last A1C several months ago was 7.2% but he stopped glyburide because he felt it was causing blisters of his legs. He does wear diabetic shoes. He has been undergoing chelation treatments by Dr. German in [place]. Dr. German prescribed him oxycodone-APAP 5/325 mg #60 which were filled on 05/22/18 for pain, he has six tablets left from this prescription, and he is asking for pain medication to treat pain from debridement. He reports having xrays done several months ago of his right heel due to pain which did not show any osteomyelitis or acute fractures. He denies fever, chills, erythema or heavy drainage. He reports significant pain and discomfort of his right heel and his entire right leg which no one can explain. Progress of Wound: Gibson is here to follow up for nonhealing ulcers of his right foot and anna ulcer of right calf. He is tolerating dressings with Aquacel to his right calf. Theraskin was applied last week and he tolerated this well. Wound veil and steri-strips were intact. He underwent artificial bypass graft of his ant. tibial to femoral artery on 08/07/18. He had an AZ postoperatively and is being treated medically. He continues to have severe pain in his ankle/heel but it has improved. He has been trying to elevate his foot and has been using his surgical shoe to offload as well. Denies fever or chills or increased drainage. - Physical Exam Vital Signs Temp Pulse Resp BP 97.5 F L 98 20 H 127/68 H 11/14/18 15:52 11/14/18 15:52 11/14/18 15:52 11/14/18 15:52 General: Alert, Oriented x3, Cooperative, No apparent distress HEENT: Atraumatic, Normocephalic Oral: Moist Mucosa Extremities: Edema Skin: Ulcer/ Wound Wound Measurements and Assessment WC - Nurse 1 - General Ulcer Measurement Start: 10/17/18 14:10 Freq: Status: Active Protocol: Activity Type Activity Date Activity User E-Sign Co-Sign Detail Recorded Client Recorded Date Recorded By Document 11/14/18 15:52 DL [id number] 11/14/18 15:59 DL 11/14/18 15:52 Wound Center Nurse 1 [Ulcer Assessment] #13 Right Lateral Posterior Calf -Current Size (cm) - Length 0.1 -Current Size (cm) - Width 0.1 -Current Size (cm) - Depth 0.1 -Total Square Cm 0.01 -Exudate Amt Small -Exudate Type Serosanguineous -Color (Shahana-wound Skin Appearance) Hemosiderin Staining -Temperature (Shahana-wound Skin No Abnormality Appearance) (Pt Warm) -Tenderness on Palpation (Shahana-wound No Skin Appearance) -Ulcer Cleansing Wound Cleanser -Foul Odor after Cleansing No #12 Right Medial Heel -Current Size (cm) - Length 0.1 -Current Size (cm) - Width 0.1 -Current Size (cm) - Depth 0.1 -Total Square Cm 0.01 -Photo Taken No -Exudate Amt Small -Exudate Type Serosanguineous -Color (Shahana-wound Skin Appearance) Hemosiderin Staining -Temperature (Shahana-wound Skin No Abnormality Appearance) (Pt Warm) -Tenderness on Palpation (Shahana-wound No Skin Appearance) -Ulcer Cleansing Wound Cleanser -Foul Odor after Cleansing No #4 RIGHT ACHILLES -Current Size (cm) - Length 0.1 -Current Size (cm) - Width 0.1 -Current Size (cm) - Depth 0.1 -Total Square Cm 0.01 -Photo Taken No -Exudate Amt Small -Exudate Type Serosanguineous -Temperature (Shahana-wound Skin No Abnormality Appearance) (Pt Warm) -Tenderness on Palpation (Shahana-wound No Skin Appearance) -Ulcer Cleansing Wound Cleanser -Foul Odor after Cleansing No [Edema Assessment] -Right Calf (cm) 32.5 -Right Ankle (cm) 21.2 WC - Nurse 2 - General Ulcer CM Notes Start: 10/17/18 14:10 Freq: Status: Active Protocol: Activity Type Activity Date Activity User E-Sign Co-Sign Detail Recorded Client Recorded Date Recorded By Document 11/14/18 16:06 MW [id number] 11/14/18 16:17 MW 11/14/18 16:06 Wound Center Nurse 2 [Procedure/Treatment] #13 Right Lateral Posterior Calf -Time 16:08 -Correct Patient Yes -Correct Side, Site, Position Yes -Correct Procedure Yes -Procedure Performed No -Wound/Ulcer Outcome Not Healed -Ulcer Cleansing Rinsed/ Irrigated with Saline -Foul Odor after Cleansing No -Bioengineered Tissue No -Bleeding Controlled with Pressure -Offloading No -Treatment Response Procedure Tolerated Well #12 Right Medial Heel -Time 16:08 -Correct Patient Yes -Correct Side, Site, Position Yes -Correct Procedure Yes -Procedure Performed No -Post Debridement Size (cm) - Length 0.4 -Post Debridement Size (cm) - Width 0.8 -Post Debridement Size (cm) - Depth 0.2 -Total Square Cm 0.32 -Wound/Ulcer Outcome Not Healed -Ulcer Cleansing Rinsed/ Irrigated with Saline -Foul Odor after Cleansing No -Bioengineered Tissue No -Bleeding Controlled with Pressure -Offloading No -Treatment Response Procedure Tolerated Well #4 RIGHT ACHILLES -Time 16:07 -Correct Patient Yes -Correct Side, Site, Position Yes -Correct Procedure Yes -Procedure Performed No -Post Debridement Size (cm) - Length 0.1 -Post Debridement Size (cm) - Width 0.1 -Post Debridement Size (cm) - Depth 0.1 -Total Square Cm 0.01 -Wound/Ulcer Outcome Not Healed -Ulcer Cleansing Rinsed/ Irrigated with Saline -Foul Odor after Cleansing No -Bioengineered Tissue No -Bleeding Controlled with Pressure -Offloading No -Treatment Response Procedure Tolerated Well [See Physician Procedure note for Specifics] Pain Scale: 0-10 Numeric [Pain] -Is Patient Pain Free? Yes Psych/Mental Status: Normal Affect, Appropriate Debridement Note Post-Debridement Measurements/Treatment WC - Nurse 2 - General Ulcer CM Notes Start: 10/17/18 14:10 Freq: Status: Active Protocol: Activity Type Activity Date Activity User E-Sign Co-Sign Detail Recorded Client Recorded Date Recorded By Document 10/17/18 15:36 DV [id number] 10/17/18 15:38 DV Document 10/24/18 14:38 DV [id number] 10/24/18 15:00 DV Document 10/31/18 15:12 DV [id number] 10/31/18 15:42 DV Document 11/07/18 15:44 DV [id number] 11/07/18 16:06 DV Document 11/14/18 16:06 MW [id number] 11/14/18 16:17 MW 10/17/18 10/24/18 10/31/18 15:36 14:38 15:12 Wound Center Nurse 2 #13 Right Lateral Posterior Calf -Time 15:36 -Correct Patient Yes -Correct Side, Site, Position Yes -Correct Procedure Yes -Procedure Performed Yes -Type of Procedure Debridement -Clinical Debridement Subcutaneous -Post Debridement Size (cm) - Length 0.4 -Post Debridement Size (cm) - Width 0.3 -Post Debridement Size (cm) - Depth 0.5 -Total Square Cm 0.12 -Wound/Ulcer Outcome Not Healed -Ulcer Cleansing Rinsed/ Irrigated with Saline -Foul Odor after Cleansing No -Bioengineered Tissue No -Bleeding Controlled with Pressure -Offloading No -Type of Offloading -Treatment Response Procedure Not Tolerated Well #12 Right Medial Heel -Time 15:37 14:44 15:30 -Correct Patient Yes Yes Yes -Correct Side, Site, Position Yes Yes Yes -Correct Procedure Yes Yes Yes -Procedure Performed Yes Yes Yes -Type of Procedure Debridement Debridement Debridement -Clinical Debridement Subcutaneous Subcutaneous Subcutaneous -Post Debridement Size (cm) - Length 0.3 0.5 0.6 -Post Debridement Size (cm) - Width 0.2 0.7 0.8 -Post Debridement Size (cm) - Depth 0.2 0.3 0.5 -Total Square Cm 0.06 0.35 0.48 -Wound/Ulcer Outcome Not Healed Not Healed Not Healed -Ulcer Cleansing Rinsed/ Rinsed/ Rinsed/ Irrigated with Irrigated with Irrigated with Saline Saline Saline -Foul Odor after Cleansing No No No -Bioengineered Tissue No No No -Type of bioengineered Tissue -Expiration Date -Product Lot Number -Percent Used -Saline Lot Number -Topical Lidocaine (%) -Injectable Lidocaine w/ Epi (%) -Injectable Lidocaine w/ Epi (mls) -Bleeding Controlled with Pressure Pressure Pressure -Offloading Yes No Yes -Type of Offloading Surgical Shoe Surgical Shoe -Treatment Response Procedure Procedure Procedure Not Tolerated Well Tolerated Well Tolerated Well #4 RIGHT ACHILLES -Time 15:38 14:44 15:39 -Correct Patient Yes Yes Yes -Correct Side, Site, Position Yes Yes Yes -Correct Procedure Yes Yes Yes -Procedure Performed Yes Yes Yes -Type of Procedure Debridement Debridement Debridement -Clinical Debridement Subcutaneous Subcutaneous Subcutaneous -Post Debridement Size (cm) - Length 0.8 0.4 0.3 -Post Debridement Size (cm) - Width 0.8 0.4 0.3 -Post Debridement Size (cm) - Depth 0.2 0.2 0.2 -Total Square Cm 0.64 0.16 0.09 -Wound/Ulcer Outcome Not Healed Not Healed Not Healed -Ulcer Cleansing Rinsed/ Rinsed/ Rinsed/ Irrigated with Irrigated with Irrigated with Saline Saline Saline -Foul Odor after Cleansing No No No -Bioengineered Tissue No No No -Type of bioengineered Tissue -Expiration Date -Product Lot Number -Percent Used -Saline Lot Number -Topical Lidocaine (%) -Injectable Lidocaine w/ Epi (%) -Injectable Lidocaine w/ Epi (mls) -Bleeding Controlled with Pressure Pressure Pressure -Offloading No No No -Type of Offloading Surgical Shoe -Treatment Response Procedure Procedure Procedure Not Tolerated Well Tolerated Well Tolerated Well #2 R Heel -Time 15:37 14:51 -Correct Patient Yes Yes -Correct Side, Site, Position Yes Yes -Correct Procedure Yes No -Procedure Performed Yes No -Type of Procedure Debridement -Clinical Debridement Subcutaneous -Post Debridement Size (cm) - Length 0.6 -Post Debridement Size (cm) - Width 0.6 -Post Debridement Size (cm) - Depth 0.3 -Total Square Cm 0.36 -Wound/Ulcer Outcome Not Healed Healed- Epithelialized -Ulcer Cleansing Rinsed/ Irrigated with Saline -Foul Odor after Cleansing No -Bioengineered Tissue No -Bleeding Controlled with Pressure -Offloading Yes -Treatment Response Procedure Tolerated Well Pain Scale: 0-10 Numeric Is Patient Pain Free? Yes Yes 11/07/18 11/14/18 15:44 16:06 Wound Center Nurse 2 #13 Right Lateral Posterior Calf -Time 15:47 16:08 -Correct Patient Yes Yes -Correct Side, Site, Position Yes Yes -Correct Procedure Yes Yes -Procedure Performed Yes No -Type of Procedure Debridement -Clinical Debridement Subcutaneous -Post Debridement Size (cm) - Length 0.3 -Post Debridement Size (cm) - Width 0.1 -Post Debridement Size (cm) - Depth 0.2 -Total Square Cm 0.03 -Wound/Ulcer Outcome Not Healed Not Healed -Ulcer Cleansing Rinsed/ Rinsed/ Irrigated with Irrigated with Saline Saline -Foul Odor after Cleansing No No -Bioengineered Tissue No No -Bleeding Controlled with Pressure Pressure -Offloading Yes No -Type of Offloading Surgical Shoe -Treatment Response Procedure Procedure Tolerated Well Tolerated Well #12 Right Medial Heel -Time 15:54 16:08 -Correct Patient Yes Yes -Correct Side, Site, Position Yes Yes -Correct Procedure Yes Yes -Procedure Performed Yes No -Type of Procedure Debridement -Clinical Debridement Subcutaneous -Post Debridement Size (cm) - Length 0.8 0.4 -Post Debridement Size (cm) - Width 1.2 0.8 -Post Debridement Size (cm) - Depth 0.3 0.2 -Total Square Cm 0.96 0.32 -Wound/Ulcer Outcome Not Healed Not Healed -Ulcer Cleansing Rinsed/ Rinsed/ Irrigated with Irrigated with Saline Saline -Foul Odor after Cleansing No No -Bioengineered Tissue Yes No -Type of bioengineered Tissue [place] -Expiration Date 01/31/19 -Product Lot Number [id number] -Percent Used 80 -Saline Lot Number [id number] -Topical Lidocaine (%) 5 -Injectable Lidocaine w/ Epi (%) 1 -Injectable Lidocaine w/ Epi (mls) 8 -Bleeding Controlled with Pressure Pressure -Offloading No No -Type of Offloading Surgical Shoe -Treatment Response Procedure Procedure Tolerated Well Tolerated Well #4 RIGHT ACHILLES -Time 15:48 16:07 -Correct Patient Yes Yes -Correct Side, Site, Position Yes Yes -Correct Procedure Yes Yes -Procedure Performed Yes No -Type of Procedure Debridement -Clinical Debridement Subcutaneous -Post Debridement Size (cm) - Length 0.2 0.1 -Post Debridement Size (cm) - Width 0.3 0.1 -Post Debridement Size (cm) - Depth 0.2 0.1 -Total Square Cm 0.06 0.01 -Wound/Ulcer Outcome Not Healed Not Healed -Ulcer Cleansing Rinsed/ Rinsed/ Irrigated with Irrigated with Saline Saline -Foul Odor after Cleansing No No -Bioengineered Tissue Yes No -Type of bioengineered Tissue [place] -Expiration Date 01/31/19 -Product Lot Number [id number] -Percent Used 20 -Saline Lot Number [id number] -Topical Lidocaine (%) 5 -Injectable Lidocaine w/ Epi (%) 1 -Injectable Lidocaine w/ Epi (mls) 2 -Bleeding Controlled with Pressure Pressure -Offloading Yes No -Type of Offloading Surgical Shoe -Treatment Response Procedure Procedure Tolerated Well Tolerated Well #2 R Heel -Time -Correct Patient -Correct Side, Site, Position -Correct Procedure -Procedure Performed -Type of Procedure -Clinical Debridement -Post Debridement Size (cm) - Length -Post Debridement Size (cm) - Width -Post Debridement Size (cm) - Depth -Total Square Cm -Wound/Ulcer Outcome -Ulcer Cleansing -Foul Odor after Cleansing -Bioengineered Tissue -Bleeding Controlled with -Offloading -Treatment Response Pain Scale: 0-10 Numeric Is Patient Pain Free? Yes Yes Wound debrided: right lateral posterior calf Laterality: Right No debridement was completed today - no slough to debride - Additional Wound Wound debrided: right medial heel Laterality: Right Wound Grade/Stage: Valdez grade 2 Operative Diagnosis: no debridement completed - wound veil removed, Theraskin removed in process - Additional Wound Wound debrided: Right Achilles Laterality: Right Wound Grade/Stage: Valdez grade 2 Operative Diagnosis: no debridement completed - wound veil removed, Theraskin removed in process Assessment/Plan Active Problems Type 2 diabetes, uncontrolled, with ulcer of heel (Chronic) right plantar heel and right achilles Varicose veins of right lower extremity with ulcer (Chronic) Peripheral vascular disease (Chronic) Type II diabetes mellitus (Chronic) Assessment: 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 Diabetes mellitus - uncontrolled. Peripheral vascular disease - status post revascularization 08/07/18. right pat venous ulcer - healed. stage 2 pressure ulcer coccyx - healed. right 3rd toe and right second toe ulcers, right great toe - healed Plan: Gibson's ulcers were evaluated today. There is improvement in his ulcers. Theraskin #4 will be applied next week to his right heel and achilles ulcers if necessary. Will have him use Aquacel to his wounds every other day and cover wit h ABD to his right heel for heavy drainage. Dr. Navas performed a SFA-ant. tib. bypass on his right leg on 08/07/18. Discussed offloading importance and encouraged continuing to use surgical shoe to offload his heel. Single layer tubigrip compression advised if he can tolerate this, avoidance of idle standing or sitting with legs hanging down. Encouraged improved control of his blood sugars. Encouraged him to seek consultation with pain management for his pain and gave him a 7 day RX (#56) for tramadol to use for pain as needed on 11/07/18. OARRS checked and appropriate. Encouraged to call with increased drainage, redness or fever or chills. Will f/u in 1 week.
== END 2018-11-14 23:59 ==
LOC: WC 15:15
PROVIDERS: Family Provider Family Medicine; PCP Family Medicine; Visit Provider Family Medicine
DX: E11.621 Type 2 diabetes mellitus with foot ulcer (principal); E11.51 Type 2 diabetes mellitus with diabetic peripheral angiopathy without gangrene; E11.65 Type 2 diabetes mellitus with hyperglycemia; L97.412 Non-pressure chronic ulcer of right heel and midfoot with fat layer exposed; E11.622 Type 2 diabetes mellitus with other skin ulcer; L97.312 Non-pressure chronic ulcer of right ankle with fat layer exposed; I25.2 Old myocardial infarction; L97.212 Non-pressure chronic ulcer of right calf with fat layer exposed
CPT/HCPCS: 11042; 87070; 87075; 87077; 87186; 87205; 99213; G0463

== ENCOUNTER → 2018-11-25 | Outpatient (CLI) | payer MEDICARE, OTHER, SELFPAY ==
[2018-09-16 16:54] VITALS: BMI 24.9
[2018-11-21 15:41] VITALS: BMI 24.9
--- NOTE | 2018-11-25 10:02 | ADU_ITS ---
Reason For Study: atherosclerosis Right Velocities Left Velocities Ext. Iliac Artery, dist = 152.7 cm./sec. Ext Iliac Artery, dist = 133.0 cm./sec. Common Femoral Artery, mid = 145.4 cm./sec. Common Femoral Artery, mid = 91.3 cm./sec. Supf Femoral Artery, prox = 29.2 cm./sec. Supf. Femoral Artery, prox = 59.1 cm./sec. Prox Anast 250.8 cm/s Profunda Femoral Artery = 139.5 cm./sec. Prox Graft 195.8 cm/s Popliteal Artery, proximal, = 60.1 cm./sec. Mid Graft 72.0 cm/s Popliteal Artery, mid = 36.5 cm./sec. Dist Graft 78.1 cm/s Peroneal Artery,dist. = 11.1 cm./sec. Dist Anast 94.0 cm/s Ant.Tibial Artery, prox = 23.2 cm./sec. Outflow mid ANA 102.6 cm/s Ant Tibial Artery, mid = 13.9 cm./sec. Dist ANA 89.0 cm/s. Ant. Tibial Artery, distal = 18.9 cm./sec. Profunda Femoral Artery = 198.3 cm./sec. No flow visualized in Mid/Dist SFA, Dist POP A, Post. Tibial Artery, mid = 72.9 cm./sec. IRONWORKER W[employer]ENCE E[employer]OR. Peroneal Artery, mid = 50.2 cm./sec. Peroneal Artery,dist = 34.5 cm./sec. No flow visualized in Mid/Dist SFA, POP A, Prox and Dist IRONWORKER W[employer] FENCE E[employer]OR. Interpretation Summary 1. right patent BPG with triphasic flow through anterior tibial 2. bilat SFA and popliteal arteries occluded. Ordering Physician: Lex Navas Performed By: Carlos Hall, RVT
--- NOTE | 2018-11-25 10:03 | ART_ITS ---
Reason For Study: atherosclerosis Left Segmental Pressures Left brachial= 136mmHg. Left posterior tibial artery = 59mmHg. Left dorsalis pedis artery = 90mmHg. Left digit = 31 mmHg. The left dorsalis pedis waveforms are monophasic. The left posterior tibial artery waveforms are monophasic. Right Segmental Pressures Right brachial= 141mmHg. Right posterior tibial artery = 112mmHg. Right dorsalis pedis artery = 129mmHg. Right digit = 111 mmHg. The right dorsalis pedis waveforms are monophasic. The right posterior tibial artery waveforms are monophasic. Indices The right ankle brachial index by the dorsalis pedis is .91. The right ankle brachial index by the posterior tibial artery is .79. The right digital-brachial index is .79. The left ankle brachial index by the dorsalis pedis is .64. The left ankle brachial index by the posterior tibial artery is .42. The left digital-brachial index is .22. Interpretation Summary 1. Right mild occlussive disease with more monophasic flow and JANET 0.91. 2. Left moderate occlussive disease wth an JANET 0.64. Ordering Physician: Lex Navas Performed By: [facility]
== END | disposition home or self-care (01) ==
LOC: CVS 09:59
PROVIDERS: Family Provider Family Medicine; PCP Family Medicine; Referring Provider Surgery Vascular Surgery; Visit Provider Surgery Vascular Surgery
DX: I70.245 Atherosclerosis of native arteries of left leg with ulceration of other part of foot (principal); I70.234 Atherosclerosis of native arteries of right leg with ulceration of heel and midfoot
CPT/HCPCS: 93922; 93925

== ENCOUNTER 2018-12-12 15:30 | Outpatient (RCR) | payer MEDICARE, OTHER, SELFPAY ==
[2018-11-15 00:49] VITALS: BP 127/68; PULSE 98; RESP 20; TEMP 36.4
[2018-11-21 15:41] VITALS: BP 163/79; PULSE 78; RESP 18; TEMP 36.4; BMI 24.9
--- NOTE | 2018-11-21 18:14 | PCM.WC.PN ---
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 Current Visit: Yes Qualifiers: Lower extremity ulceration location: calf Non-pressure ulcer stage: with fat layer exposed Qualified Code(s): I83.012 - Varicose veins of right lower extremity with ulcer of calf; L97.212 - Non-pressure chronic ulcer of right calf with fat layer exposed Code(s): I83.019 - Varicose veins of right lower extremity with ulcer of unspecified site; L97.919 - Non-pressure chronic ulcer of unspecified part of right lower leg with unspecified severity (3) Type II diabetes mellitus Status: Chronic Current Visit: Yes Qualifiers: Diabetes mellitus detention insulin use: unspecified detention insulin use status Diabetes mellitus complication detail: with foot ulcer Code(s): E11.9 - Type 2 diabetes mellitus without complications Type of Wound Date of Service: 11/21/18 Chief Complaint: Nonhealing ulcers right heel and calf History of Wound: This 68-year-old male is here for evaluation of an ulcer of his right heel and his right pat. He states that he has had an ulcer approx. 5 years ago of this same heel and was treated here and was healed after vascular interventions by Dr. Navas. He has noticed increased pain in his heel for the last few months and approx. beginning of May he noted an open wound to his right heel. He was using gauze but this started to irritate his skin and has been using silvadene and adaptic to the wound with tape for the last few weeks. He has not had any treatment with antibiotics for the wound. He is self-referred for treatment here. He does follow with Dr. 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 He has had procedures for his arterial disease in past to both of his lower extremities. From review of records it seems that Dr. Navas planned to do a right SFA-ant. tib bypass but it does not appear that this was done and patient denies having any bypass procedures other than his heart. It sounds like he is trying alternative treatments with supplements and chelation therapy. He also has diabetes and his last A1C several months ago was 7.2% but he stopped glyburide because he felt it was causing blisters of his legs. He does wear diabetic shoes. He has been undergoing chelation treatments by Dr. German in [place]. Dr. German prescribed him oxycodone-APAP 5/325 mg #60 which were filled on 05/22/18 for pain, he has six tablets left from this prescription, and he is asking for pain medication to treat pain from debridement. He reports having xrays done several months ago of his right heel due to pain which did not show any osteomyelitis or acute fractures. He denies fever, chills, erythema or heavy drainage. He reports significant pain and discomfort of his right heel and his entire right leg which no one can explain. Progress of Wound: Gibson is here to follow up for nonhealing ulcers of his right foot and venous ulcer of right calf. He is tolerating dressings with Aquacel to his right calf. His ulcers are improving and his right calf and achilles are healed. He underwent artificial bypass graft of his ant. tibial to femoral artery on 08/07/18. He had an AR postoperatively and is being treated medically. He continues to have severe pain in his ankle/heel but it has improved. He has been trying to elevate his foot and has been using his surgical shoe to offload as well. Denies fever or chills or increased drainage. - Physical Exam Vital Signs Temp Pulse Resp BP 97.5 F L 78 18 163/79 H 11/21/18 15:41 11/21/18 15:41 11/21/18 15:41 11/21/18 15:41 General: Alert, Oriented x3, Cooperative, No apparent distress HEENT: Atraumatic, Normocephalic Oral: Moist Mucosa Extremities: Edema Skin: Ulcer/ Wound Wound Measurements and Assessment - Nurse 1 - General Ulcer Measurement Start: 11/21/18 15:41 Freq: Status: Active Protocol: Activity Type Activity Date Activity User E-Sign Co-Sign Detail Recorded Client Recorded Date Recorded By Document 11/21/18 15:41 [facility] [id number] 11/21/18 15:58 BM 11/21/18 15:41 Wound Center Nurse 1 [Ulcer Assessment] #13 Right Lateral Posterior Calf -Combined with other wound No -Current Size (cm) - Length 0.1 -Current Size (cm) - Width 0.1 -Current Size (cm) - Depth 0.1 -Total Square Cm 0.01 -Date of Last Picture (Recall this 11/21/18 field) -Photo Taken Yes -Epithelialization None Present -Tunneling No -Undermining/Tunneling No -Circular Undermining No -Exudate Amt None Present -Wound Margin Distinct, Outline Attached -Granulation Amt None Present (0 %) -Slough/Fibrin Yes -Necrosis Amt Large (67-100%) -Necrotic Tissue Type Adherent Slough -Texture (Shahana-wound Skin Appearance) Assessed Scarring -Moisture (Shahana-wound Skin Appearance Assessed ) -Color (Shahana-wound Skin Appearance) Assessed -Temperature (Shahana-wound Skin No Abnormality Appearance) (Pt Warm) -Tenderness on Palpation (Shahana-wound Yes Skin Appearance) -Ulcer Cleansing Rinsed/ Irrigated with Saline -Foul Odor after Cleansing No -Anesthetic Used 5% Lidocaine Gel #2 R Heel -Combined with other wound No -Current Size (cm) - Length 0.3 -Current Size (cm) - Width 0.5 -Current Size (cm) - Depth 0.2 -Total Square Cm 0.15 -Date of Last Picture (Recall this 11/21/18 field) -Photo Taken Yes -Epithelialization Small 1-33% -Tunneling No -Undermining/Tunneling No -Circular Undermining No -Exudate Amt Small -Exudate Type Serous -Wound Margin Distinct, Outline Attached -Granulation Amt Large (67-100%) -Granulation Quality [place] -Slough/Fibrin No -Necrosis Amt None Present (0 %) -Texture (Shahana-wound Skin Appearance) Assessed Callus Scarring -Moisture (Shahana-wound Skin Appearance Assessed ) Dry/Scaly -Color (Shahana-wound Skin Appearance) Assessed Erythema -Temperature (Shahana-wound Skin No Abnormality Appearance) (Pt Warm) -Tenderness on Palpation (Shahana-wound Yes Skin Appearance) -Ulcer Cleansing Rinsed/ Irrigated with Saline -Foul Odor after Cleansing No -Anesthetic Used 5% Lidocaine Gel [Edema Assessment] -Lower Limb Edema Present Yes -Right Calf (cm) 27 -Right Ankle (cm) 20.3 WC - Nurse 2 - General Ulcer CM Notes Start: 11/21/18 15:41 Freq: Status: Active Protocol: Activity Type Activity Date Activity User E-Sign Co-Sign Detail Recorded Client Recorded Date Recorded By Document 11/21/18 16:19 DV [id number] 11/21/18 16:34 DV 11/21/18 16:19 Wound Center Nurse 2 [Procedure/Treatment] #13 Right Lateral Posterior Calf -Time 16:24 -Correct Patient Yes -Correct Side, Site, Position Yes -Correct Procedure No -Procedure Performed No -Post Debridement Size (cm) - Length 0 -Post Debridement Size (cm) - Width 0 -Post Debridement Size (cm) - Depth 0 -Total Square Cm 0 -Wound/Ulcer Outcome Healed- Epithelialized #2 R Heel -Time 16:28 -Correct Patient Yes -Correct Side, Site, Position Yes -Correct Procedure Yes -Procedure Performed Yes -Type of Procedure Debridement -Clinical Debridement Subcutaneous -Post Debridement Size (cm) - Length 0.5 -Post Debridement Size (cm) - Width 0.9 -Post Debridement Size (cm) - Depth 0.2 -Total Square Cm 0.45 -Wound/Ulcer Outcome Not Healed -Ulcer Cleansing Rinsed/ Irrigated with Saline -Foul Odor after Cleansing No -Bioengineered Tissue Yes -Type of bioengineered Tissue [place] -Expiration Date 05/31/19 -Product Lot Number [id number] -Percent Used 33 -Saline Lot Number [id number] -Bleeding Controlled with Pressure -Offloading Yes -Type of Offloading Surgical Shoe -Treatment Response Procedure Tolerated Well [See Physician Procedure note for Specifics] Pain Scale: 0-10 Numeric [Pain] -Is Patient Pain Free? Yes Psych/Mental Status: Normal Affect, Appropriate Debridement Note Post-Debridement Measurements/Treatment WC - Nurse 2 - General Ulcer CM Notes Start: 11/21/18 15:41 Freq: Status: Active Protocol: Activity Type Activity Date Activity User E-Sign Co-Sign Detail Recorded Client Recorded Date Recorded By Document 11/21/18 16:19 DV [id number] 11/21/18 16:34 DV 11/21/18 16:19 Wound Center Nurse 2 #13 Right Lateral Posterior Calf -Time 16:24 -Correct Patient Yes -Correct Side, Site, Position Yes -Correct Procedure No -Procedure Performed No -Post Debridement Size (cm) - Length 0 -Post Debridement Size (cm) - Width 0 -Post Debridement Size (cm) - Depth 0 -Total Square Cm 0 -Wound/Ulcer Outcome Healed- Epithelialized #2 R Heel -Time 16:28 -Correct Patient Yes -Correct Side, Site, Position Yes -Correct Procedure Yes -Procedure Performed Yes -Type of Procedure Debridement -Clinical Debridement Subcutaneous -Post Debridement Size (cm) - Length 0.5 -Post Debridement Size (cm) - Width 0.9 -Post Debridement Size (cm) - Depth 0.2 -Total Square Cm 0.45 -Wound/Ulcer Outcome Not Healed -Ulcer Cleansing Rinsed/ Irrigated with Saline -Foul Odor after Cleansing No -Bioengineered Tissue Yes -Type of bioengineered Tissue [place] -Expiration Date 05/31/19 -Product Lot Number [id number] -Percent Used 33 -Saline Lot Number [id number] -Bleeding Controlled with Pressure -Offloading Yes -Type of Offloading Surgical Shoe -Treatment Response Procedure Tolerated Well Pain Scale: 0-10 Numeric Is Patient Pain Free? Yes Wound debrided: right lateral posterior calf Laterality: Right Type of Debridement: Selective debridement Depth: Down to and including healthy tissue Percentage of wound debrided: 100 Instrument Used: 5mm curette Tissue Removed: devitalized tissue Severity: Limited To Skin Breakdown Amount of bleeding with debridement: None Patient tolerated procedure well - Additional Wound Wound debrided: right heel Laterality: Right Wound Grade/Stage: Valdez grade 2 Type of Debridement: Excisional debridement Anesthesia Used: 4% Lidocaine Solution, 5% Lidocaine Gel Depth: Down to and including healthy tissue, in the subcutaneous layer Percentage of wound debrided: 100 Instrument Used: 5mm curette Tissue Removed: yellow slough, devitalized tissue Severity: Fat Layer Exposed Amount of bleeding with debridement: Mild Bleeding Controlled with: Compression and gauze Patient tolerated procedure: Patient tolerated procedure well Assessment/Plan Active Problems Type 2 diabetes, uncontrolled, with ulcer of heel (Chronic) right plantar heel and right achilles Varicose veins of right lower extremity with ulcer (Chronic) Type II diabetes mellitus (Chronic) Assessment: 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 Diabetes mellitus - uncontrolled. Peripheral vascular disease - status post revascularization 08/07/18. right pat venous ulcer - healed. stage 2 pressure ulcer coccyx - healed. right 3rd toe and right second toe ulcers, right great toe - healed Plan: Gibson's ulcers were evaluated and debrided today. There is improvement in his ulcers overall and his achilles and right calf are healed. Theraskin #4 applied today to his right heel. Will have him use Aquacel to his wounds every other day and cover with ABD to his right heel for heavy drainage. Dr. Navas performed a SFA-ant. tib. bypass on his right leg on 08/07/18. Discussed offloading importance and encouraged continuing to use surgical shoe to offload his heel. Single layer tubigrip compression advised if he can tolerate this, avoidance of idle standing or sitting with legs hanging down. Encouraged improved control of his blood sugars. Encouraged him to seek consultation with pain management for his pain and gave him a 7 day RX (#56) for tramadol to use for pain as needed on 11/07/18. OARRS checked and appropriate. Encouraged to call with increased drainage, redness or fever or chills. Will f/u in 1 week.
--- NOTE | 2018-11-21 18:20 | PN.PCM_ITS ---
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 Current Visit: Yes Qualifiers: Lower extremity ulceration location: calf Non-pressure ulcer stage: with fat layer exposed Qualified Code(s): I83.012 - Varicose veins of right lower extremity with ulcer of calf; L97.212 - Non-pressure chronic ulcer of right calf with fat layer exposed Code(s): I83.019 - Varicose veins of right lower extremity with ulcer of unspecified site; L97.919 - Non-pressure chronic ulcer of unspecified part of right lower leg with unspecified severity (3) Type II diabetes mellitus Status: Chronic Current Visit: Yes Qualifiers: Diabetes mellitus care home insulin use: unspecified care home insulin use status Diabetes mellitus complication detail: with foot ulcer Code(s): E11.9 - Type 2 diabetes mellitus without complications Type of Wound Date of Service: 11/21/18 Chief Complaint: Nonhealing ulcers right heel and calf History of Wound: This 68-year-old male is here for evaluation of an ulcer of his right heel and his right pat. He states that he has had an ulcer approx. 5 years ago of this same heel and was treated here and was healed after vascular interventions by Dr. Navas. He has noticed increased pain in his heel for the last few months and approx. beginning of May he noted an open wound to his right heel. He was using gauze but this started to irritate his skin and has been using silvadene and adaptic to the wound with tape for the last few weeks. He has not had any treatment with antibiotics for the wound. He is self-referred for treatment here. He does follow with Dr. 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 He has had procedures for his arterial disease in past to both of his lower extremities. From review of records it seems that Dr. Navas planned to do a right SFA-ant. tib bypass but it does not appear that this was done and patient denies having any bypass procedures other than his heart. It sounds like he is trying alternative treatments with supplements and chelation therapy. He also has diabetes and his last A1C several months ago was 7.2% but he stopped glyburide because he felt it was causing blisters of his legs. He does wear diabetic shoes. He has been undergoing chelation treatments by Dr. German in [place]. Dr. German prescribed him oxycodone-APAP 5/325 mg #60 which were filled on 05/22/18 for pain, he has six tablets left from this prescription, and he is asking for pain medication to treat pain from debridement. He reports having xrays done several months ago of his right heel due to pain which did not show any osteomyelitis or acute fractures. He denies fever, chills, erythema or heavy drainage. He reports significant pain and discomfort of his right heel and his entire right leg which no one can explain. Progress of Wound: Gibson is here to follow up for nonhealing ulcers of his right foot and venous ulcer of right calf. He is tolerating dressings with Aquacel to his right calf. His ulcers are improving and his right calf and achilles are healed. He underwent artificial bypass graft of his ant. tibial to femoral artery on 08/07/18. He had an NE postoperatively and is being treated medically. He continues to have severe pain in his ankle/heel but it has improved. He has been trying to elevate his foot and has been using his surgical shoe to offload as well. Denies fever or chills or increased drainage. - Physical Exam Vital Signs Temp Pulse Resp BP 97.5 F L 78 18 163/79 H 11/21/18 15:41 11/21/18 15:41 11/21/18 15:41 11/21/18 15:41 General: Alert, Oriented x3, Cooperative, No apparent distress HEENT: Atraumatic, Normocephalic Oral: Moist Mucosa Extremities: Edema Skin: Ulcer/ Wound Wound Measurements and Assessment - Nurse 1 - General Ulcer Measurement Start: 11/21/18 15:41 Freq: Status: Active Protocol: Activity Type Activity Date Activity User E-Sign Co-Sign Detail Recorded Client Recorded Date Recorded By Document 11/21/18 15:41 [facility] [id number] 11/21/18 15:58 BM 11/21/18 15:41 Wound Center Nurse 1 [Ulcer Assessment] #13 Right Lateral Posterior Calf -Combined with other wound No -Current Size (cm) - Length 0.1 -Current Size (cm) - Width 0.1 -Current Size (cm) - Depth 0.1 -Total Square Cm 0.01 -Date of Last Picture (Recall this 11/21/18 field) -Photo Taken Yes -Epithelialization None Present -Tunneling No -Undermining/Tunneling No -Circular Undermining No -Exudate Amt None Present -Wound Margin Distinct, Outline Attached -Granulation Amt None Present (0 %) -Slough/Fibrin Yes -Necrosis Amt Large (67-100%) -Necrotic Tissue Type Adherent Slough -Texture (Shahana-wound Skin Appearance) Assessed Scarring -Moisture (Shahana-wound Skin Appearance Assessed ) -Color (Shahana-wound Skin Appearance) Assessed -Temperature (Shahana-wound Skin No Abnormality Appearance) (Pt Warm) -Tenderness on Palpation (Shahana-wound Yes Skin Appearance) -Ulcer Cleansing Rinsed/ Irrigated with Saline -Foul Odor after Cleansing No -Anesthetic Used 5% Lidocaine Gel #2 R Heel -Combined with other wound No -Current Size (cm) - Length 0.3 -Current Size (cm) - Width 0.5 -Current Size (cm) - Depth 0.2 -Total Square Cm 0.15 -Date of Last Picture (Recall this 11/21/18 field) -Photo Taken Yes -Epithelialization Small 1-33% -Tunneling No -Undermining/Tunneling No -Circular Undermining No -Exudate Amt Small -Exudate Type Serous -Wound Margin Distinct, Outline Attached -Granulation Amt Large (67-100%) -Granulation Quality [place] -Slough/Fibrin No -Necrosis Amt None Present (0 %) -Texture (Shahana-wound Skin Appearance) Assessed Callus Scarring -Moisture (Shahana-wound Skin Appearance Assessed ) Dry/Scaly -Color (Sahhana-wound Skin Appearance) Assessed Erythema -Temperature (Shahana-wound Skin No Abnormality Appearance) (Pt Warm) -Tenderness on Palpation (Shahana-wound Yes Skin Appearance) -Ulcer Cleansing Rinsed/ Irrigated with Saline -Foul Odor after Cleansing No -Anesthetic Used 5% Lidocaine Gel [Edema Assessment] -Lower Limb Edema Present Yes -Right Calf (cm) 27 -Right Ankle (cm) 20.3 WC - Nurse 2 - General Ulcer CM Notes Start: 11/21/18 15:41 Freq: Status: Active Protocol: Activity Type Activity Date Activity User E-Sign Co-Sign Detail Recorded Client Recorded Date Recorded By Document 11/21/18 16:19 DV [id number] 11/21/18 16:34 DV 11/21/18 16:19 Wound Center Nurse 2 [Procedure/Treatment] #13 Right Lateral Posterior Calf -Time 16:24 -Correct Patient Yes -Correct Side, Site, Position Yes -Correct Procedure No -Procedure Performed No -Post Debridement Size (cm) - Length 0 -Post Debridement Size (cm) - Width 0 -Post Debridement Size (cm) - Depth 0 -Total Square Cm 0 -Wound/Ulcer Outcome Healed- Epithelialized #2 R Heel -Time 16:28 -Correct Patient Yes -Correct Side, Site, Position Yes -Correct Procedure Yes -Procedure Performed Yes -Type of Procedure Debridement -Clinical Debridement Subcutaneous -Post Debridement Size (cm) - Length 0.5 -Post Debridement Size (cm) - Width 0.9 -Post Debridement Size (cm) - Depth 0.2 -Total Square Cm 0.45 -Wound/Ulcer Outcome Not Healed -Ulcer Cleansing Rinsed/ Irrigated with Saline -Foul Odor after Cleansing No -Bioengineered Tissue Yes -Type of bioengineered Tissue [place] -Expiration Date 05/31/19 -Product Lot Number [id number] -Percent Used 33 -Saline Lot Number [id number] -Bleeding Controlled with Pressure -Offloading Yes -Type of Offloading Surgical Shoe -Treatment Response Procedure Tolerated Well [See Physician Procedure note for Specifics] Pain Scale: 0-10 Numeric [Pain] -Is Patient Pain Free? Yes Psych/Mental Status: Normal Affect, Appropriate Debridement Note Post-Debridement Measurements/Treatment WC - Nurse 2 - General Ulcer CM Notes Start: 11/21/18 15:41 Freq: Status: Active Protocol: Activity Type Activity Date Activity User E-Sign Co-Sign Detail Recorded Client Recorded Date Recorded By Document 11/21/18 16:19 DV [id number] 11/21/18 16:34 DV 11/21/18 16:19 Wound Center Nurse 2 #13 Right Lateral Posterior Calf -Time 16:24 -Correct Patient Yes -Correct Side, Site, Position Yes -Correct Procedure No -Procedure Performed No -Post Debridement Size (cm) - Length 0 -Post Debridement Size (cm) - Width 0 -Post Debridement Size (cm) - Depth 0 -Total Square Cm 0 -Wound/Ulcer Outcome Healed- Epithelialized #2 R Heel -Time 16:28 -Correct Patient Yes -Correct Side, Site, Position Yes -Correct Procedure Yes -Procedure Performed Yes -Type of Procedure Debridement -Clinical Debridement Subcutaneous -Post Debridement Size (cm) - Length 0.5 -Post Debridement Size (cm) - Width 0.9 -Post Debridement Size (cm) - Depth 0.2 -Total Square Cm 0.45 -Wound/Ulcer Outcome Not Healed -Ulcer Cleansing Rinsed/ Irrigated with Saline -Foul Odor after Cleansing No -Bioengineered Tissue Yes -Type of bioengineered Tissue [place] -Expiration Date 05/31/19 -Product Lot Number [id number] -Percent Used 33 -Saline Lot Number [id number] -Bleeding Controlled with Pressure -Offloading Yes -Type of Offloading Surgical Shoe -Treatment Response Procedure Tolerated Well Pain Scale: 0-10 Numeric Is Patient Pain Free? Yes Wound debrided: right lateral posterior calf Laterality: Right Type of Debridement: Selective debridement Depth: Down to and including healthy tissue Percentage of wound debrided: 100 Instrument Used: 5mm curette Tissue Removed: devitalized tissue Severity: Limited To Skin Breakdown Amount of bleeding with debridement: None Patient tolerated procedure well - Additional Wound Wound debrided: right heel Laterality: Right Wound Grade/Stage: Valdez grade 2 Type of Debridement: Excisional debridement Anesthesia Used: 4% Lidocaine Solution, 5% Lidocaine Gel Depth: Down to and including healthy tissue, in the subcutaneous layer Percentage of wound debrided: 100 Instrument Used: 5mm curette Tissue Removed: yellow slough, devitalized tissue Severity: Fat Layer Exposed Amount of bleeding with debridement: Mild Bleeding Controlled with: Compression and gauze Patient tolerated procedure: Patient tolerated procedure well Assessment/Plan Active Problems Type 2 diabetes, uncontrolled, with ulcer of heel (Chronic) right plantar heel and right achilles Varicose veins of right lower extremity with ulcer (Chronic) Type II diabetes mellitus (Chronic) Assessment: 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 Diabetes mellitus - uncontrolled. Peripheral vascular disease - status post revascularization 08/07/18. right pat venous ulcer - healed. stage 2 pressure ulcer coccyx - healed. right 3rd toe and right second toe ulcers, right great toe - healed Plan: Gibson's ulcers were evaluated and debrided today. There is improvement in his ulcers overall and his achilles and right calf are healed. Theraskin #4 applied today to his right heel. Will have him use Aquacel to his wounds every other day and cover with ABD to his right heel for heavy drainage. Dr. Navas performed a SFA-ant. tib. bypass on his right leg on 08/07/18. Discussed offloading importance and encouraged continuing to use surgical shoe to offload his heel. Single layer tubigrip compression advised if he can tolerate this, avoidance of idle standing or sitting with legs hanging down. Encouraged improved control of his blood sugars. Encouraged him to seek consultation with pain management for his pain and gave him a 7 day RX (#56) for tramadol to use for pain as needed on 11/07/18. OARRS checked and appropriate. Encouraged to call with increased drainage, redness or fever or chills. Will f/u in 1 week.
[2018-11-28 15:50] VITALS: BP 152/76; PULSE 75; RESP 18; TEMP 36.6; BMI 24.9
--- NOTE | 2018-11-28 15:53 | WC ---
ANGELICA PARR ON R HEEL STERISTRIPS AND VEIL INTACT WOUND NOT MEASURED DUE TO LEAVING ELLIOT AND URSULAILINTACT.
--- NOTE | 2018-11-28 19:49 | PCM.WC.PN ---
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 Current Visit: Yes Qualifiers: Lower extremity ulceration location: calf Non-pressure ulcer stage: with fat layer exposed Qualified Code(s): I83.012 - Varicose veins of right lower extremity with ulcer of calf; L97.212 - Non-pressure chronic ulcer of right calf with fat layer exposed Code(s): I83.019 - Varicose veins of right lower extremity with ulcer of unspecified site; L97.919 - Non-pressure chronic ulcer of unspecified part of right lower leg with unspecified severity (3) Type II diabetes mellitus Status: Chronic Current Visit: Yes Qualifiers: Diabetes mellitus halfway insulin use: unspecified halfway insulin use status Diabetes mellitus complication detail: with foot ulcer Code(s): E11.9 - Type 2 diabetes mellitus without complications Type of Wound Date of Service: 11/28/18 Chief Complaint: Nonhealing ulcers right heel and calf History of Wound: This 68-year-old male is here for evaluation of an ulcer of his right heel and his right pat. He states that he has had an ulcer approx. 5 years ago of this same heel and was treated here and was healed after vascular interventions by Dr. Navas. He has noticed increased pain in his heel for the last few months and approx. beginning of May he noted an open wound to his right heel. He was using gauze but this started to irritate his skin and has been using silvadene and adaptic to the wound with tape for the last few weeks. He has not had any treatment with antibiotics for the wound. He is self-referred for treatment here. He does follow with Dr. 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 He has had procedures for his arterial disease in past to both of his lower extremities. From review of records it seems that Dr. Navas planned to do a right SFA-ant. tib bypass but it does not appear that this was done and patient denies having any bypass procedures other than his heart. It sounds like he is trying alternative treatments with supplements and chelation therapy. He also has diabetes and his last A1C several months ago was 7.2% but he stopped glyburide because he felt it was causing blisters of his legs. He does wear diabetic shoes. He has been undergoing chelation treatments by Dr. German in [place]. Dr. German prescribed him oxycodone-APAP 5/325 mg #60 which were filled on 05/22/18 for pain, he has six tablets left from this prescription, and he is asking for pain medication to treat pain from debridement. He reports having xrays done several months ago of his right heel due to pain which did not show any osteomyelitis or acute fractures. He denies fever, chills, erythema or heavy drainage. He reports significant pain and discomfort of his right heel and his entire right leg which no one can explain. Progress of Wound: Gibson is here to follow up for nonhealing ulcers of his right foot. He is tolerating dressings and tolerated Theraskin application. His ulcer is improving and his right calf and achilles remain healed. He underwent artificial bypass graft of his ant. tibial to femoral artery on 08/07/18. He had an NH postoperatively and is being treated medically. He continues to have severe pain in his ankle/heel but it has improved. He has been trying to elevate his foot and has been using his surgical shoe to offload as well. Denies fever or chills or increased drainage. - Physical Exam Vital Signs Temp Pulse Resp BP 97.8 F 75 18 152/76 H 11/28/18 15:50 11/28/18 15:50 11/28/18 15:50 11/28/18 15:50 General: Alert, Oriented x3, Cooperative, No apparent distress HEENT: Atraumatic, Normocephalic Oral: Moist Mucosa Extremities: Edema Skin: Ulcer/ Wound Wound Measurements and Assessment WC - Nurse 1 - General Ulcer Measurement Start: 11/21/18 15:41 Freq: Status: Active Protocol: Activity Type Activity Date Activity User E-Sign Co-Sign Detail Recorded Client Recorded Date Recorded By Document 11/28/18 15:50 RB [id number] 11/28/18 15:54 RB 11/28/18 15:50 Wound Center Nurse 1 [Ulcer Assessment] #12 R Heel -Exudate Amt Small -Exudate Type Serosanguineous -Wound Margin Distinct, Outline Attached [Edema Assessment] -Lower Limb Edema Present Yes -Right Calf (cm) 32 -Right Ankle (cm) 20 11/28/18 15:53 Wound Center by Jennifer Garcia ON R HEEL STERISTRIPS AND VEIL INTACT WOUND NOT MEASURED DUE TO LEAVING THERAKIN AND VEILINTACT. Initialized on 11/28/18 15:53 - END OF NOTE WC - Nurse 2 - General Ulcer CM Notes Start: 11/21/18 15:41 Freq: Status: Active Protocol: Activity Type Activity Date Activity User E-Sign Co-Sign Detail Recorded Client Recorded Date Recorded By Document 11/28/18 16:26 DV [id number] 11/28/18 16:37 DV 11/28/18 16:26 Wound Center Nurse 2 [Procedure/Treatment] #12 R Heel -Time 16:29 -Correct Patient Yes -Correct Side, Site, Position Yes -Correct Procedure Yes -Procedure Performed Yes -Type of Procedure Debridement -Clinical Debridement Subcutaneous -Post Debridement Size (cm) - Length 0.3 -Post Debridement Size (cm) - Width 0.5 -Post Debridement Size (cm) - Depth 0.2 -Total Square Cm 0.15 -Wound/Ulcer Outcome Not Healed -Ulcer Cleansing Rinsed/ Irrigated with Saline -Foul Odor after Cleansing No -Bioengineered Tissue No -Bleeding Controlled with Pressure -Offloading Yes -Treatment Response Procedure Tolerated Well [See Physician Procedure note for Specifics] Pain Scale: 0-10 Numeric [Pain] -Is Patient Pain Free? Yes Psych/Mental Status: Normal Affect, Appropriate Debridement Note Post-Debridement Measurements/Treatment - Nurse 2 - General Ulcer CM Notes Start: 11/21/18 15:41 Freq: Status: Active Protocol: Activity Type Activity Date Activity User E-Sign Co-Sign Detail Recorded Client Recorded Date Recorded By Document 11/21/18 16:19 DV [id number] 11/21/18 16:34 DV Document 11/28/18 16:26 DV [id number] 11/28/18 16:37 DV 11/21/18 11/28/18 16:19 16:26 Wound Center Nurse 2 #13 Right Lateral Posterior Calf -Time 16:24 -Correct Patient Yes -Correct Side, Site, Position Yes -Correct Procedure No -Procedure Performed No -Post Debridement Size (cm) - Length 0 -Post Debridement Size (cm) - Width 0 -Post Debridement Size (cm) - Depth 0 -Total Square Cm 0 -Wound/Ulcer Outcome Healed- Epithelialized #12 R Heel -Time 16:28 16:29 -Correct Patient Yes Yes -Correct Side, Site, Position Yes Yes -Correct Procedure Yes Yes -Procedure Performed Yes Yes -Type of Procedure Debridement Debridement -Clinical Debridement Subcutaneous Subcutaneous -Post Debridement Size (cm) - Length 0.5 0.3 -Post Debridement Size (cm) - Width 0.9 0.5 -Post Debridement Size (cm) - Depth 0.2 0.2 -Total Square Cm 0.45 0.15 -Wound/Ulcer Outcome Not Healed Not Healed -Ulcer Cleansing Rinsed/ Rinsed/ Irrigated with Irrigated with Saline Saline -Foul Odor after Cleansing No No -Bioengineered Tissue Yes No -Type of bioengineered Tissue THERASKIN -Expiration Date 05/31/19 -Product Lot Number [id number] -Percent Used 33 -Saline Lot Number 64818 -Bleeding Controlled with Pressure Pressure -Offloading Yes Yes -Type of Offloading Surgical Shoe -Treatment Response Procedure Procedure Tolerated Well Tolerated Well Pain Scale: 0-10 Numeric Is Patient Pain Free? Yes Yes Wound debrided: right heel Laterality: Right Wound Grade/Stage: Valedz grade 3 Type of Debridement: Excisional debridement Anesthesia Used: 4% Lidocaine Solution, 5% Lidocaine Gel Depth: Down to and including healthy tissue, in the subcutaneous layer Percentage of wound debrided: 100 Instrument Used: 5mm curette Tissue Removed: yellow slough, devitalized tissue Severity: Fat Layer Exposed Amount of bleeding with debridement: Mild Bleeding Controlled with: Compression and gauze Patient tolerated procedure well Assessment/Plan Active Problems Type 2 diabetes, uncontrolled, with ulcer of heel (Chronic) right plantar heel and right achilles Varicose veins of right lower extremity with ulcer (Chronic) Type II diabetes mellitus (Chronic) Assessment: 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 Diabetes mellitus - uncontrolled. Peripheral vascular disease - status post revascularization 08/07/18. right pat venous ulcer - healed. stage 2 pressure ulcer coccyx - healed. right 3rd toe and right second toe ulcers, right great toe - healed Plan: Demetriuss ulcer was evaluated and debrided today. There is improvement in his ulcer overall. Theraskin #4 removed today. Will have him use Aquacel to his wounds every day and cover with ABD to his right heel for heavy drainage. Dr. Navas performed a SFA-ant. tib. bypass on his right leg on 08/07/18. Discussed offloading importance and encouraged continuing to use surgical shoe to offload his heel. Single layer tubigrip compression advised if he can tolerate this, avoidance of idle standing or sitting with legs hanging down. Encouraged improved control of his blood sugars. Encouraged him to seek consultation with pain management for his pain and gave him a 7 day RX (#56) for tramadol to use for pain as needed on 11/07/18. OARRS checked and appropriate. Encouraged to call with increased drainage, redness or fever or chills. Will f/u in 1 week.
--- NOTE | 2018-11-28 19:54 | PN.PCM_ITS ---
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 Current Visit: Yes Qualifiers: Lower extremity ulceration location: calf Non-pressure ulcer stage: with fat layer exposed Qualified Code(s): I83.012 - Varicose veins of right lower extremity with ulcer of calf; L97.212 - Non-pressure chronic ulcer of right calf with fat layer exposed Code(s): I83.019 - Varicose veins of right lower extremity with ulcer of unspecified site; L97.919 - Non-pressure chronic ulcer of unspecified part of right lower leg with unspecified severity (3) Type II diabetes mellitus Status: Chronic Current Visit: Yes Qualifiers: Diabetes mellitus penitentiary insulin use: unspecified penitentiary insulin use status Diabetes mellitus complication detail: with foot ulcer Code(s): E11.9 - Type 2 diabetes mellitus without complications Type of Wound Date of Service: 11/28/18 Chief Complaint: Nonhealing ulcers right heel and calf History of Wound: This 68-year-old male is here for evaluation of an ulcer of his right heel and his right pat. He states that he has had an ulcer approx. 5 years ago of this same heel and was treated here and was healed after vascular interventions by Dr. Navas. He has noticed increased pain in his heel for the last few months and approx. beginning of May he noted an open wound to his right heel. He was using gauze but this started to irritate his skin and has been using silvadene and adaptic to the wound with tape for the last few weeks. He has not had any treatment with antibiotics for the wound. He is self-referred for treatment here. He does follow with Dr. 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 He has had procedures for his arterial disease in past to both of his lower extremities. From review of records it seems that Dr. Navas planned to do a right SFA-ant. tib bypass but it does not appear that this was done and patient denies having any bypass procedures other than his heart. It sounds like he is trying alternative treatments with supplements and chelation therapy. He also has diabetes and his last A1C several months ago was 7.2% but he stopped glyburide because he felt it was causing blisters of his legs. He does wear diabetic shoes. He has been undergoing chelation treatments by Dr. German in [place]. Dr. German prescribed him oxycodone-APAP 5/325 mg #60 which were filled on 05/22/18 for pain, he has six tablets left from this prescription, and he is asking for pain medication to treat pain from debridement. He reports having xrays done several months ago of his right heel due to pain which did not show any osteomyelitis or acute fractures. He denies fever, chills, erythema or heavy drainage. He reports significant pain and discomfort of his right heel and his entire right leg which no one can explain. Progress of Wound: Gibson is here to follow up for nonhealing ulcers of his right foot. He is tolerating dressings and tolerated Theraskin application. His ulcer is improving and his right calf and achilles remain healed. He underwent artificial bypass graft of his ant. tibial to femoral artery on 08/07/18. He had an MD postoperatively and is being treated medically. He continues to have severe pain in his ankle/heel but it has improved. He has been trying to elevate his foot and has been using his surgical shoe to offload as well. Denies fever or chills or increased drainage. - Physical Exam Vital Signs Temp Pulse Resp BP 97.8 F 75 18 152/76 H 11/28/18 15:50 11/28/18 15:50 11/28/18 15:50 11/28/18 15:50 General: Alert, Oriented x3, Cooperative, No apparent distress HEENT: Atraumatic, Normocephalic Oral: Moist Mucosa Extremities: Edema Skin: Ulcer/ Wound Wound Measurements and Assessment WC - Nurse 1 - General Ulcer Measurement Start: 11/21/18 15:41 Freq: Status: Active Protocol: Activity Type Activity Date Activity User E-Sign Co-Sign Detail Recorded Client Recorded Date Recorded By Document 11/28/18 15:50 RB [id number] 11/28/18 15:54 RB 11/28/18 15:50 Wound Center Nurse 1 [Ulcer Assessment] #12 R Heel -Exudate Amt Small -Exudate Type Serosanguineous -Wound Margin Distinct, Outline Attached [Edema Assessment] -Lower Limb Edema Present Yes -Right Calf (cm) 32 -Right Ankle (cm) 20 11/28/18 15:53 Wound Center by Jennifer Garcia ON R HEEL STERISTRIPS AND VEIL INTACT WOUND NOT MEASURED DUE TO LEAVING THERAKIN AND VEILINTACT. Initialized on 11/28/18 15:53 - END OF NOTE WC - Nurse 2 - General Ulcer CM Notes Start: 11/21/18 15:41 Freq: Status: Active Protocol: Activity Type Activity Date Activity User E-Sign Co-Sign Detail Recorded Client Recorded Date Recorded By Document 11/28/18 16:26 DV [id number] 11/28/18 16:37 DV 11/28/18 16:26 Wound Center Nurse 2 [Procedure/Treatment] #12 R Heel -Time 16:29 -Correct Patient Yes -Correct Side, Site, Position Yes -Correct Procedure Yes -Procedure Performed Yes -Type of Procedure Debridement -Clinical Debridement Subcutaneous -Post Debridement Size (cm) - Length 0.3 -Post Debridement Size (cm) - Width 0.5 -Post Debridement Size (cm) - Depth 0.2 -Total Square Cm 0.15 -Wound/Ulcer Outcome Not Healed -Ulcer Cleansing Rinsed/ Irrigated with Saline -Foul Odor after Cleansing No -Bioengineered Tissue No -Bleeding Controlled with Pressure -Offloading Yes -Treatment Response Procedure Tolerated Well [See Physician Procedure note for Specifics] Pain Scale: 0-10 Numeric [Pain] -Is Patient Pain Free? Yes Psych/Mental Status: Normal Affect, Appropriate Debridement Note Post-Debridement Measurements/Treatment - Nurse 2 - General Ulcer CM Notes Start: 11/21/18 15:41 Freq: Status: Active Protocol: Activity Type Activity Date Activity User E-Sign Co-Sign Detail Recorded Client Recorded Date Recorded By Document 11/21/18 16:19 DV [id number] 11/21/18 16:34 DV Document 11/28/18 16:26 DV [id number] 11/28/18 16:37 DV 11/21/18 11/28/18 16:19 16:26 Wound Center Nurse 2 #13 Right Lateral Posterior Calf -Time 16:24 -Correct Patient Yes -Correct Side, Site, Position Yes -Correct Procedure No -Procedure Performed No -Post Debridement Size (cm) - Length 0 -Post Debridement Size (cm) - Width 0 -Post Debridement Size (cm) - Depth 0 -Total Square Cm 0 -Wound/Ulcer Outcome Healed- Epithelialized #12 R Heel -Time 16:28 16:29 -Correct Patient Yes Yes -Correct Side, Site, Position Yes Yes -Correct Procedure Yes Yes -Procedure Performed Yes Yes -Type of Procedure Debridement Debridement -Clinical Debridement Subcutaneous Subcutaneous -Post Debridement Size (cm) - Length 0.5 0.3 -Post Debridement Size (cm) - Width 0.9 0.5 -Post Debridement Size (cm) - Depth 0.2 0.2 -Total Square Cm 0.45 0.15 -Wound/Ulcer Outcome Not Healed Not Healed -Ulcer Cleansing Rinsed/ Rinsed/ Irrigated with Irrigated with Saline Saline -Foul Odor after Cleansing No No -Bioengineered Tissue Yes No -Type of bioengineered Tissue THERASKIN -Expiration Date 05/31/19 -Product Lot Number [id number] -Percent Used 33 -Saline Lot Number 23885 -Bleeding Controlled with Pressure Pressure -Offloading Yes Yes -Type of Offloading Surgical Shoe -Treatment Response Procedure Procedure Tolerated Well Tolerated Well Pain Scale: 0-10 Numeric Is Patient Pain Free? Yes Yes Wound debrided: right heel Laterality: Right Wound Grade/Stage: Valdez grade 3 Type of Debridement: Excisional debridement Anesthesia Used: 4% Lidocaine Solution, 5% Lidocaine Gel Depth: Down to and including healthy tissue, in the subcutaneous layer Percentage of wound debrided: 100 Instrument Used: 5mm curette Tissue Removed: yellow slough, devitalized tissue Severity: Fat Layer Exposed Amount of bleeding with debridement: Mild Bleeding Controlled with: Compression and gauze Patient tolerated procedure well Assessment/Plan Active Problems Type 2 diabetes, uncontrolled, with ulcer of heel (Chronic) right plantar heel and right achilles Varicose veins of right lower extremity with ulcer (Chronic) Type II diabetes mellitus (Chronic) Assessment: 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 Diabetes mellitus - uncontrolled. Peripheral vascular disease - status post revascularization 08/07/18. right pat venous ulcer - healed. stage 2 pressure ulcer coccyx - healed. right 3rd toe and right second toe ulcers, right great toe - healed Plan: Demetriuss ulcer was evaluated and debrided today. There is improvement in his ulcer overall. Theraskin #4 removed today. Will have him use Aquacel to his wounds every day and cover with ABD to his right heel for heavy drainage. Dr. Navas performed a SFA-ant. tib. bypass on his right leg on 08/07/18. Discussed offloading importance and encouraged continuing to use surgical shoe to offload his heel. Single layer tubigrip compression advised if he can tolerate this, avoidance of idle standing or sitting with legs hanging down. Encouraged improved control of his blood sugars. Encouraged him to seek consultation with pain management for his pain and gave him a 7 day RX (#56) for tramadol to use for pain as needed on 11/07/18. OARRS checked and appropriate. Encouraged to call with increased drainage, redness or fever or chills. Will f/u in 1 week.
[2018-12-12 15:29] VITALS: BP 130/61; PULSE 71; RESP 16; TEMP 37.2; BMI 24.9
--- NOTE | 2018-12-12 16:55 | PN.PCM_ITS ---
(1) Type 2 diabetes, uncontrolled, with ulcer of heel Status: Chronic Current Visit: Yes Code(s): E11.621 - Type 2 diabetes mellitus with foot ulcer; E11.65 - Type 2 diabetes mellitus with hyperglycemia; L97.409 - Non-pressure chronic ulcer of unspecified heel and midfoot with unspecified severity Comment: right plantar heel and right achilles (2) Varicose veins of right lower extremity with ulcer Status: Resolved Current Visit: Yes Qualifiers: Lower extremity ulceration location: calf Non-pressure ulcer stage: with fat layer exposed Qualified Code(s): I83.012 - Varicose veins of right lower extremity with ulcer of calf; L97.212 - Non-pressure chronic ulcer of right calf with fat layer exposed Code(s): I83.019 - Varicose veins of right lower extremity with ulcer of unspecified site; L97.919 - Non-pressure chronic ulcer of unspecified part of right lower leg with unspecified severity (3) Type II diabetes mellitus Status: Chronic Current Visit: Yes 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 He states that he has had an ulcer approx. 5 years ago of this same heel and was treated here and was healed after vascular interventions by Dr. Navas. He has noticed increased pain in his heel for the last few months and approx. beginning of May he noted an open wound to his right heel. He was using gauze but this started to irritate his skin and has been using silvadene and adaptic to the wound with tape for the last few weeks. He has not had any treatment with antibiotics for the wound. He is self-referred for treatment here. He does follow with Dr. 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 He has had procedures for his arterial disease in past to both of his lower extremities. From review of records it seems that Dr. Navas planned to do a right SFA-ant. tib bypass but it does not appear that this was done and patient denies having any bypass procedures other than his heart. It sounds like he is trying alternative treatments with supplements and chelation therapy. He also has diabetes and his last A1C several months ago was 7.2% but he stopped glyburide because he felt it was causing blisters of his legs. He does wear diabetic shoes. He has been undergoing chelation treatments by Dr. German in [place]. Dr. German prescribed him oxycodone-APAP 5/325 mg #60 which were filled on 05/22/18 for pain, he has six tablets left from this prescription, and he is asking for pain medication to treat pain from debridement. He reports having xrays done several months ago of his right heel due to pain which did not show any osteomyelitis or acute fractures. He denies fever, chills, erythema or heavy drainage. He reports significant pain and discomfort of his right heel and his entire right leg which no one can explain. Progress of Wound: Gibson is here to follow up for nonhealing ulcers of his right foot. He is tolerating dressings. His ulcer is improving and his right calf and achilles remain healed. He underwent artificial bypass graft of his ant. tibial to femoral artery on 08/07/18. He had an NV postoperatively and is being treated medically. He continues to have severe pain in his ankle/heel but it has improved. He has been trying to elevate his foot and has been using his surgical shoe to offload as well. Denies fever or chills or increased drainage. - Physical Exam Vital Signs Temp Pulse Resp BP 98.9 F 71 16 130/61 H 12/12/18 15:29 12/12/18 15:29 12/12/18 15:29 12/12/18 15:29 General: Alert, Oriented x3, Cooperative, No apparent distress HEENT: Atraumatic, Normocephalic Oral: Moist Mucosa Extremities: Edema Skin: Ulcer/ Wound Wound Measurements and Assessment WC - Nurse 1 - General Ulcer Measurement Start: 11/21/18 15:41 Freq: Status: Active Protocol: Activity Type Activity Date Activity User E-Sign Co-Sign Detail Recorded Client Recorded Date Recorded By Document 12/12/18 15:29 [facility] [id number] 12/12/18 15:37 [facility] 12/12/18 15:29 Wound Center Nurse 1 [Ulcer Assessment] #12 R Heel -Combined with other wound No -Current Size (cm) - Length 0.1 -Current Size (cm) - Width 0.3 -Current Size (cm) - Depth 0.2 -Total Square Cm 0.03 -Photo Taken No -Epithelialization None Present -Tunneling No -Undermining/Tunneling No -Circular Undermining No -Exudate Amt Small -Exudate Type Serous -Wound Margin Distinct, Outline Attached -Granulation Amt Large (67-100%) -Granulation Quality Red -Slough/Fibrin No -Necrosis Amt None Present (0 %) -Texture (Shahana-wound Skin Appearance) Assessed,Callus ,Scarring -Moisture (Shahana-wound Skin Appearance Assessed,Dry/ ) Scaly -Color (Shahana-wound Skin Appearance) Assessed -Temperature (Shahana-wound Skin No Abnormality Appearance) (Pt Warm) -Tenderness on Palpation (Shahana-wound Yes Skin Appearance) -Ulcer Cleansing Rinsed/ Irrigated with Saline -Foul Odor after Cleansing No -Anesthetic Used 5% Lidocaine Gel [Edema Assessment] -Lower Limb Edema Present Yes -Right Calf (cm) 30.9 -Right Ankle (cm) 21.1 WC - Nurse 2 - General Ulcer CM Notes Start: 11/21/18 15:41 Freq: Status: Active Protocol: Activity Type Activity Date Activity User E-Sign Co-Sign Detail Recorded Client Recorded Date Recorded By Document 12/12/18 15:55 MW [id number] 12/12/18 16:21 MW 12/12/18 15:55 Wound Center Nurse 2 [Procedure/Treatment] #12 R Heel -Time 15:56 -Correct Patient Yes -Correct Side, Site, Position Yes -Correct Procedure Yes -Procedure Performed Yes -Type of Procedure Debridement -Clinical Debridement Subcutaneous -Post Debridement Size (cm) - Length 0.1 -Post Debridement Size (cm) - Width 0.1 -Post Debridement Size (cm) - Depth 0.1 -Total Square Cm 0.01 -Wound/Ulcer Outcome Not Healed -Ulcer Cleansing Rinsed/ Irrigated with Saline -Foul Odor after Cleansing No -Bioengineered Tissue No -Bleeding Controlled with Pressure -Offloading No -Treatment Response Procedure Tolerated Well [See Physician Procedure note for Specifics] Pain Scale: 0-10 Numeric [Pain] -Is Patient Pain Free? Yes Psych/Mental Status: Normal Affect, Appropriate Debridement Note Post-Debridement Measurements/Treatment WC - Nurse 2 - General Ulcer CM Notes Start: 11/21/18 15:41 Freq: Status: Active Protocol: Activity Type Activity Date Activity User E-Sign Co-Sign Detail Recorded Client Recorded Date Recorded By Document 11/21/18 16:19 DV [id number] 11/21/18 16:34 DV Document 11/28/18 16:26 DV [id number] 11/28/18 16:37 DV Document 12/12/18 15:55 MW [id number] 12/12/18 16:21 MW 11/21/18 11/28/18 12/12/18 16:19 16:26 15:55 Wound Center Nurse 2 #13 Right Lateral Posterior Calf -Time 16:24 -Correct Patient Yes -Correct Side, Site, Position Yes -Correct Procedure No -Procedure Performed No -Post Debridement Size (cm) - Length 0 -Post Debridement Size (cm) - Width 0 -Post Debridement Size (cm) - Depth 0 -Total Square Cm 0 -Wound/Ulcer Outcome Healed- Epithelialized #12 R Heel -Time 16:28 16:29 15:56 -Correct Patient Yes Yes Yes -Correct Side, Site, Position Yes Yes Yes -Correct Procedure Yes Yes Yes -Procedure Performed Yes Yes Yes -Type of Procedure Debridement Debridement Debridement -Clinical Debridement Subcutaneous Subcutaneous Subcutaneous -Post Debridement Size (cm) - Length 0.5 0.3 0.1 -Post Debridement Size (cm) - Width 0.9 0.5 0.1 -Post Debridement Size (cm) - Depth 0.2 0.2 0.1 -Total Square Cm 0.45 0.15 0.01 -Wound/Ulcer Outcome Not Healed Not Healed Not Healed -Ulcer Cleansing Rinsed/ Rinsed/ Rinsed/ Irrigated with Irrigated with Irrigated with Saline Saline Saline -Foul Odor after Cleansing No No No -Bioengineered Tissue Yes No No -Type of bioengineered Tissue [place] -Expiration Date 05/31/19 -Product Lot Number [id number] -Percent Used 33 -Saline Lot Number [id number] -Bleeding Controlled with Pressure Pressure Pressure -Offloading Yes Yes No -Type of Offloading Surgical Shoe -Treatment Response Procedure Procedure Procedure Tolerated Well Tolerated Well Tolerated Well Pain Scale: 0-10 Numeric Is Patient Pain Free? Yes Yes Yes Wound debrided: right heel Laterality: Right Wound Grade/Stage: Valdez grade 3 Type of Debridement: Excisional debridement Anesthesia Used: 4% Lidocaine Solution, 5% Lidocaine Gel Depth: Down to and including healthy tissue, in the subcutaneous layer Percentage of wound debrided: 100 Instrument Used: 5mm curette Tissue Removed: yellow slough, devitalized tissue, callus Severity: Fat Layer Exposed Amount of bleeding with debridement: Mild Bleeding Controlled with: Pressure Patient tolerated procedure well Assessment/Plan Active Problems Type 2 diabetes, uncontrolled, with ulcer of heel (Chronic) right plantar heel and right achilles Type II diabetes mellitus (Chronic) Assessment: 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 Diabetes mellitus - uncontrolled. Peripheral vascular disease - status post revascularization 08/07/18. right pat venous ulcer - healed. stage 2 pressure ulcer coccyx - healed. right 3rd toe and right second toe ulcers, right great toe - healed Plan: Nicol ulcer was evaluated and debrided today. There is improvement in his ulcer overall. Will have him use Verenice to his wounds every day and cover with ABD to his right heel for heavy drainage. Dr. Navas performed a SFA-ant. tib. bypass on his right leg on 08/07/18. Discussed offloading importance and encouraged continuing to use surgical shoe to offload his heel. Single layer tubigrip compression advised if he can tolerate this, avoidance of idle standing or sitting with legs hanging down. Encouraged improved control of his blood sugars. Encouraged him to seek consultation with pain management for his pain and gave him a 7 day RX (#56) for tramadol to use for pain as needed on 11/07/18. OARRS checked and appropriate. Encouraged to call with increased drainage, redness or fever or chills. Will f/u in 1 week.
== END 2018-12-14 23:59 ==
LOC: WC 15:30
PROVIDERS: Family Provider Family Medicine; PCP Family Medicine; Visit Provider Family Medicine
DX: E11.621 Type 2 diabetes mellitus with foot ulcer (principal); E11.51 Type 2 diabetes mellitus with diabetic peripheral angiopathy without gangrene; L97.412 Non-pressure chronic ulcer of right heel and midfoot with fat layer exposed; E11.622 Type 2 diabetes mellitus with other skin ulcer; I83.012 Varicose veins of right lower extremity with ulcer of calf; I25.2 Old myocardial infarction; L97.211 Non-pressure chronic ulcer of right calf limited to breakdown of skin
CPT/HCPCS: 11042; 15275; Q4121

== ENCOUNTER 2018-12-19 10:04 | Outpatient (RCR) | payer MEDICARE, OTHER, SELFPAY ==
[2018-12-15 00:35] VITALS: BP 130/61; PULSE 71; RESP 16; TEMP 37.2
[2018-12-19 15:31] VITALS: BP 148/100; PULSE 70; RESP 18; TEMP 37; BMI 24.9
--- NOTE | 2018-12-19 19:25 | PN.PCM_ITS ---
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 He states that he has had an ulcer approx. 5 years ago of this same heel and was treated here and was healed after vascular interventions by Dr. Navas. He has noticed increased pain in his heel for the last few months and approx. beginning of May he noted an open wound to his right heel. He was using gauze but this started to irritate his skin and has been using silvadene and adaptic to the wound with tape for the last few weeks. He has not had any treatment with antibiotics for the wound. He is self-referred for treatment here. He does follow with Dr. 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 He has had procedures for his arterial disease in past to both of his lower extremities. From review of records it seems that Dr. Navas planned to do a right SFA-ant. tib bypass but it does not appear that this was done and patient denies having any bypass procedures other than his heart. It sounds like he is trying alternative treatments with supplements and chelation therapy. He also has diabetes and his last A1C several months ago was 7.2% but he stopped glyburide because he felt it was causing blisters of his legs. He does wear diabetic shoes. He has been undergoing chelation treatments by Dr. German in [place]. Dr. German prescribed him oxycodone-APAP 5/325 mg #60 which were filled on 05/22/18 for pain, he has six tablets left from this prescription, and he is asking for pain medication to treat pain from debridement. He reports having xrays done several months ago of his right heel due to pain which did not show any osteomyelitis or acute fractures. He denies fever, chills, erythema or heavy drainage. He reports significant pain and discomfort of his right heel and his entire right leg which no one can explain. Progress of Wound: Gibson is here to follow up for nonhealing ulcers of his right foot. He is healed today. - Physical Exam Vital Signs Temp Pulse Resp BP 98.6 F 70 18 148/100 H 12/19/18 15:31 12/19/18 15:31 12/19/18 15:31 12/19/18 15:31 General: Alert, Oriented x3, Cooperative, No apparent distress HEENT: Atraumatic, Normocephalic Oral: Moist Mucosa Neck: Supple Lungs: Clear to auscultation Extremities: Edema Skin: Ulcer/ Wound Wound Measurements and Assessment WC - Nurse 1 - General Ulcer Measurement Start: 12/19/18 15:31 Freq: Status: Active Protocol: Activity Type Activity Date Activity User E-Sign Co-Sign Detail Recorded Client Recorded Date Recorded By Document 12/19/18 15:31 [id number] 12/19/18 15:34 RB 12/19/18 15:31 Wound Center Nurse 1 [Ulcer Assessment] #12 R Heel -Combined with other wound No -Current Size (cm) - Length 0.1 -Current Size (cm) - Width 0.1 -Current Size (cm) - Depth 0.1 -Total Square Cm 0.01 -Tunneling No -Undermining/Tunneling No -Circular Undermining No -Exudate Amt None Present -Wound Margin Distinct, Outline Attached -Granulation Amt Large (67-100%) -Slough/Fibrin No -Necrosis Amt None Present (0 %) -Structure Exposed N/A -Texture (Shahana-wound Skin Appearance) Assessed,Callus -Moisture (Shahana-wound Skin Appearance Assessed ) -Color (Shahana-wound Skin Appearance) Assessed -Temperature (Shahana-wound Skin No Abnormality Appearance) (Pt Warm) -Tenderness on Palpation (Shahana-wound No Skin Appearance) -Ulcer Cleansing Rinsed/ Irrigated with Saline -Foul Odor after Cleansing No -Anesthetic Used 5% Lidocaine Gel [Edema Assessment] -Lower Limb Edema Present Yes -Right Calf (cm) 31.1 -Right Ankle (cm) 21.7 WC - Nurse 2 - General Ulcer CM Notes Start: 12/19/18 15:31 Freq: Status: Active Protocol: Activity Type Activity Date Activity User E-Sign Co-Sign Detail Recorded Client Recorded Date Recorded By Document 12/19/18 16:03 MW [id number] 12/19/18 16:15 MW 12/19/18 16:03 Wound Center Nurse 2 [Procedure/Treatment] #12 R Heel -Time 16:05 -Correct Patient Yes -Correct Side, Site, Position Yes -Correct Procedure Yes -Procedure Performed No -Post Debridement Size (cm) - Length 0 -Post Debridement Size (cm) - Width 0 -Post Debridement Size (cm) - Depth 0 -Total Square Cm 0 -Wound/Ulcer Outcome Healed- Epithelialized -Ulcer Cleansing Rinsed/ Irrigated with Saline -Foul Odor after Cleansing No -Bioengineered Tissue No -Bleeding Controlled with NA -Offloading Yes -Type of Offloading Surgical Shoe -Treatment Response Procedure Tolerated Well [See Physician Procedure note for Specifics] Pain Scale: 0-10 Numeric [Pain] -Is Patient Pain Free? Yes Psych/Mental Status: Normal Affect, Appropriate Debridement Note Post-Debridement Measurements/Treatment WC - Nurse 2 - General Ulcer CM Notes Start: 12/19/18 15:31 Freq: Status: Active Protocol: Activity Type Activity Date Activity User E-Sign Co-Sign Detail Recorded Client Recorded Date Recorded By Document 12/19/18 16:03 MW [id number] 12/19/18 16:15 MW 12/19/18 16:03 Wound Center Nurse 2 #12 R Heel -Time 16:05 -Correct Patient Yes -Correct Side, Site, Position Yes -Correct Procedure Yes -Procedure Performed No -Post Debridement Size (cm) - Length 0 -Post Debridement Size (cm) - Width 0 -Post Debridement Size (cm) - Depth 0 -Total Square Cm 0 -Wound/Ulcer Outcome Healed- Epithelialized -Ulcer Cleansing Rinsed/ Irrigated with Saline -Foul Odor after Cleansing No -Bioengineered Tissue No -Bleeding Controlled with NA -Offloading Yes -Type of Offloading Surgical Shoe -Treatment Response Procedure Tolerated Well Pain Scale: 0-10 Numeric Is Patient Pain Free? Yes Wound debrided: right heel Laterality: Right Wound Grade/Stage: Valdez grade 2 Type of Debridement: Selective debridement Anesthesia Used: 5% Lidocaine Gel Depth: Down to and including healthy tissue Percentage of wound debrided: 100 Instrument Used: 3mm curette Tissue Removed: devitalized tissue, callus Severity: Limited To Skin Breakdown Amount of bleeding with debridement: None Patient tolerated procedure well Assessment/Plan Active Problems Type 2 diabetes, uncontrolled, with ulcer of heel (Chronic) right plantar heel and right achilles Peripheral vascular disease (Chronic) Type II diabetes mellitus (Chronic) Assessment: 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 Diabetes mellitus - uncontrolled. Peripheral vascular disease - status post revascularization 08/07/18. right pat venous ulcer - healed. stage 2 pressure ulcer coccyx - healed. right 3rd toe and right second toe ulcers, right great toe - healed Plan: Demetriuss ulcer is healed today. He will be discharged from treatment and advised to follow up if needed in the future.
== END 2019-01-14 23:59 ==
LOC: WC 10:04
PROVIDERS: Family Provider Family Medicine; PCP Family Medicine; Visit Provider Family Medicine
DX: E11.621 Type 2 diabetes mellitus with foot ulcer (principal); E11.51 Type 2 diabetes mellitus with diabetic peripheral angiopathy without gangrene; L97.412 Non-pressure chronic ulcer of right heel and midfoot with fat layer exposed; E11.622 Type 2 diabetes mellitus with other skin ulcer; E11.65 Type 2 diabetes mellitus with hyperglycemia
CPT/HCPCS: 99212; G0463

== ENCOUNTER 2019-02-13 15:44 | Outpatient (RCR) | payer MEDICARE, OTHER, SELFPAY ==
[2019-01-15 00:39] VITALS: BP 148/100; PULSE 70; RESP 18; TEMP 37
[2019-02-13 16:22] VITALS: BP 148/74; PULSE 68; RESP 18; TEMP 37; BMI 24.9
--- NOTE | 2019-02-13 20:28 | HP.PCM_ITS ---
(1) Type 2 diabetes, uncontrolled, with ulcer of heel Status: Chronic Current Visit: Yes Code(s): E11.621 - Type 2 diabetes mellitus with foot ulcer; E11.65 - Type 2 diabetes mellitus with hyperglycemia; L97.409 - Non-pressure chronic ulcer of unspecified heel and midfoot with unspecified severity Comment: right plantar heel and right achilles (2) Peripheral vascular disease Status: Chronic Current Visit: Yes Code(s): I73.9 - Peripheral vascular disease, unspecified (3) Coronary artery disease Status: Chronic Current Visit: Yes Qualifiers: Coronary Disease-Associated Artery/Lesion type: enterprise artery Associated angina: angina presence unspecified Code(s): I25.10 - Atherosclerotic heart disease of enterprise coronary artery without angina pectoris Comment: Status post CABG (4) Type II diabetes mellitus Status: Chronic Current Visit: Yes Qualifiers: Diabetes mellitus senior care insulin use: without terminal make up operator use Diabetes mellitus complication status: with skin complications Diabetes mellitus complication detail: with foot ulcer Qualified Code(s): E11.621 - Type 2 diabetes mellitus with foot ulcer; L97.509 - Non-pressure chronic ulcer of other part of unspecified foot with unspecified severity Code(s): E11.9 - Type 2 diabetes mellitus without complications History of Present Illness Date of Service: 02/13/19 Chief Complaint: Nonhealing ulcer right heel History of Wound: Gibson is here for evaluation of an ulcer of his right heel. He was recently treated for this same area with Theraskin application and was discharged approximately 8 weeks ago. He has noticed increased pain in his heel for the last 2 weeks and last his noted that the area had opened after his auto parts delivery driver had debrided some callus from the area. He has been applying Aquacel and gauze to the ulcer. He does follow with Dr. Navas regularly and had a bypass of his right SFA and popliteal arteries earlier this year. He has had procedures for his arterial disease in past to both of his lower extremities. He has tried alternative treatments with supplements and chelation therapy in the past. He also has diabetes and recent A1C was 7.2% He does wear diabetic shoes. He has been undergoing chelation treatments by Dr. German in [place]. He denies fever, chills, erythema or heavy drainage. He reports significant pain and discomfort of his right heel and his entire right leg which no one can explain. Past Medical History Past Medical History: Chronic Problems Type 2 diabetes, uncontrolled, with ulcer of heel (Chronic) right plantar heel and right achilles Stage II pressure ulcer of sacral region (Chronic) Diabetes with ulcer of toe (Chronic) Non-healing open wound of heel (Chronic) Hyperlipidemia (Chronic) Peripheral vascular disease (Chronic) Hypertension (Chronic) Coronary artery disease (Chronic) Status post CABG Type II diabetes mellitus (Chronic) Surgical History: coronary bypass surgery, - - Recurrent back surgeries ?3 Allergies/Adverse Reactions: Allergies rivaroxaban [From Xarelto] Allergy (Verified 02/13/19 16:41) Other Home Medications: Ambulatory Orders Medication Instructions Recorded #17 3 tab PO DAILY 06/13/18 Aspirin [Lite Coat Aspirin] 325 mg PO DAILY 06/13/18 [id number] 1 PO DAILY 06/13/18 Calcium Lactate 1 PO DAILY 06/13/18 Cat C 2 PO DAILY 06/13/18 Cat E2 8 PO DAILY 06/13/18 Cholecalciferol (Vitamin D3) 5,000 mg PO DAILY 06/13/18 [Vitamin D3] Colon Clear 1 tab PO PRN PRN 06/13/18 Inositol 2 PO PRN PRN 06/13/18 Intestinal Cleanse No 1 3 tab PO PRN PRN 06/13/18 Koncentrated K 1 tab PO DAILY 06/13/18 Mag Lactate 1 PO DAILY 06/13/18 Nattokinase 2 tab PO DAILY 06/13/18 Potassium-Derick 1 PO DAILY 06/13/18 Tuna 03 Oil 3 PO DAILY 06/13/18 Zn-Zyme 1 PO DAILY 06/13/18 Clopidogrel Bisulfate [Clopidogrel] 75 mg PO DAILY 09/08/18 traMADol [Ultram] 50 tablet PO PRN PRN 09/08/18 Aurum Metallicum 2 drp PO DAILY 02/13/19 Cbd Oil DAILY 02/13/19 - Family History Sibling Cancer Maternal Diabetes, Heart Disease, Hypertension, Stroke Paternal Diabetes, Heart Disease, Pulmonary Disease Lives: Spouse/ Significant Other Smoking Status: Never smoker Tobacco Use: Non-smoker Alcohol: None Drugs: None Review of Systems Constitutional: Denies: Chills, Fever, Weight Change Eyes: Denies: Pain, Vision Change HEENT: Denies: Difficulty Hearing, Difficulty Swallowing, Sinus Congestion Cardiovascular: Denies: Chest Pain, Palpitations Respiratory: Denies: Cough, Shortness of Breath Gastrointestinal: Denies: Diarrhea, Nausea, Vomiting Genitourinary: Denies: Dysuria, Hematuria Musculoskeletal: Reports: Back Pain, Joint Pain Skin: Reports: Wounds Neurological: Reports: Balance problems, Numbness, Tingling Endocrine: Denies: Heat/ Cold Intolerance, Polydipsia, Polyuria Hematologic/ Lymphatic: Denies: Easy Bruising, Easy Bleeding - Physical Exam Vital Signs Temp Pulse Resp BP 98.6 F 68 18 148/74 H 02/13/19 16:22 02/13/19 16:22 02/13/19 16:22 02/13/19 16:22 General: Alert, Oriented x3, Cooperative, No apparent distress HEENT: Atraumatic, Normocephalic Oral: Moist Mucosa Neck: Supple Lungs: Clear to auscultation Cardiovascular: Regular rate Abdomen: Soft, Non Tender, Non-Distended Extremities: Edema Skin: Ulcer/ Wound Wound Measurements and Assessment WC - Nurse 1 - General Ulcer Measurement Start: 02/13/19 16:18 Freq: Status: Active Protocol: Activity Type Activity Date Activity User E-Sign Co-Sign Detail Recorded Client Recorded Date Recorded By Document 02/13/19 16:22 [facility] [id number] 02/13/19 16:33 [facility] 02/13/19 16:22 Wound Center Nurse 1 [Ulcer Assessment] #14- R HEEL -Combined with other wound No -Current Size (cm) - Length 0.2 -Current Size (cm) - Width 0.7 -Current Size (cm) - Depth 0.2 -Total Square Cm 0.14 -Date of Last Picture (Recall this 02/13/19 field) -Photo Taken Yes -Epithelialization None Present -Tunneling No -Undermining/Tunneling No -Circular Undermining No -Exudate Amt Small -Exudate Type Serous -Wound Margin Flat & Intact -Granulation Amt Large (67-100%) -Granulation Quality [place] -Slough/Fibrin No -Necrosis Amt None Present (0 %) -Texture (Shahana-wound Skin Appearance) Assessed,Callus ,Scarring -Moisture (Shahana-wound Skin Appearance Assessed, ) Maceration,Dry/ Scaly -Color (Shahana-wound Skin Appearance) Assessed, Erythema,Palor -Temperature (Shahana-wound Skin No Abnormality Appearance) (Pt Warm) -Tenderness on Palpation (Shahana-wound No Skin Appearance) -Ulcer Cleansing Rinsed/ Irrigated with Saline -Foul Odor after Cleansing No -Anesthetic Used 5% Lidocaine Gel [Edema Assessment] -Lower Limb Edema Present Yes -Right Calf (cm) 28.9 -Right Ankle (cm) 19.1 WC - Nurse 2 - General Ulcer CM Notes Start: 02/13/19 16:18 Freq: Status: Active Protocol: Activity Type Activity Date Activity User E-Sign Co-Sign Detail Recorded Client Recorded Date Recorded By Document 02/13/19 17:18 [id number] 02/13/19 17:25 02/13/19 17:18 Wound Center Nurse 2 [Procedure/Treatment] #14- R HEEL -Time 05:20 -Correct Patient Yes -Correct Side, Site, Position Yes -Correct Procedure Yes -Procedure Performed Yes -Type of Procedure Debridement -Clinical Debridement Subcutaneous -Post Debridement Size (cm) - Length 1.0 -Post Debridement Size (cm) - Width 0.3 -Post Debridement Size (cm) - Depth 0.2 -Total Square Cm 0.30 -Wound/Ulcer Outcome Not Healed -Ulcer Cleansing Rinsed/ Irrigated with Saline -Foul Odor after Cleansing No -Bioengineered Tissue No -Bleeding Controlled with Pressure -Offloading Yes -Type of Offloading Surgical Shoe -Treatment Response Procedure Tolerated Well [See Physician Procedure note for Specifics] Pain Scale: 0-10 Numeric [Pain] -Is Patient Pain Free? No Neurological: Unsteady Gait Psych/Mental Status: Normal Affect, Appropriate Debridement Note Post-Debridement Measurements/Treatment WC - Nurse 2 - General Ulcer CM Notes Start: 02/13/19 16:18 Freq: Status: Active Protocol: Activity Type Activity Date Activity User E-Sign Co-Sign Detail Recorded Client Recorded Date Recorded By Document 02/13/19 17:18 [id number] 02/13/19 17:25 02/13/19 17:18 Wound Center Nurse 2 #14- R HEEL -Time 05:20 -Correct Patient Yes -Correct Side, Site, Position Yes -Correct Procedure Yes -Procedure Performed Yes -Type of Procedure Debridement -Clinical Debridement Subcutaneous -Post Debridement Size (cm) - Length 1.0 -Post Debridement Size (cm) - Width 0.3 -Post Debridement Size (cm) - Depth 0.2 -Total Square Cm 0.30 -Wound/Ulcer Outcome Not Healed -Ulcer Cleansing Rinsed/ Irrigated with Saline -Foul Odor after Cleansing No -Bioengineered Tissue No -Bleeding Controlled with Pressure -Offloading Yes -Type of Offloading Surgical Shoe -Treatment Response Procedure Tolerated Well Pain Scale: 0-10 Numeric Is Patient Pain Free? No Wound debrided: right heel Laterality: Right Wound Grade/Stage: Grade 1 Type of Debridement: Excisional debridement Anesthesia Used: 4% Lidocaine Solution, 5% Lidocaine Gel Depth: Down to and including healthy tissue, in the subcutaneous layer Percentage of wound debrided: 100 Instrument Used: 3mm curette Tissue Removed: yellow slough, devitalized tissue Severity: Fat Layer Exposed Amount of bleeding with debridement: Mild Bleeding Controlled with: Compression and gauze Patient tolerated procedure well Assessment/Plan Active Problems Type 2 diabetes, uncontrolled, with ulcer of heel (Chronic) right plantar heel and right achilles Peripheral vascular disease (Chronic) Coronary artery disease (Chronic) Status post CABG Type II diabetes mellitus (Chronic) Assessment: 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 Diabetes mellitus - uncontrolled. Peripheral vascular disease - status post revascularization 08/07/18 Plan: Gibson's ulcer was evaluated and debrided today. Wound culture was taken to evaluate for infection. He will continue to dress his ulcer with Aquacel Ag and cover with gauze and an ABD nurse hat to his heel. He was advised to start wearing his surgical shoe again that has offloading to his heel in place. Discussed offloading and will have him restart tubigrip compression. Tramadol 50 mg #56 were prescribed for treatment of pain with debridements. OARRS was appropriate. No signs of diversion or abuse. Last rx was from October 2018 prescribed by myself for his previous ulcer. Encouraged to call with any increase in pain or drainage, fever or chills. F/U in 1 week.
[2019-02-13 20:30] LABS: M R Staph aureus DNA By PCR POSITIVE (Negative); Probe Check PASS; Staph aureus DNA By PCR POSITIVE (Negative)
== END 2019-02-14 23:59 ==
LOC: WC 15:44
PROVIDERS: Family Provider Family Medicine; PCP Family Medicine; Visit Provider Family Medicine
DX: E11.621 Type 2 diabetes mellitus with foot ulcer (principal); E11.51 Type 2 diabetes mellitus with diabetic peripheral angiopathy without gangrene; E11.65 Type 2 diabetes mellitus with hyperglycemia; L97.412 Non-pressure chronic ulcer of right heel and midfoot with fat layer exposed; I25.10 Atherosclerotic heart disease of native coronary artery without angina pectoris; Z95.1 Presence of aortocoronary bypass graft; L84 Corns and callosities; I10 Essential (primary) hypertension; E78.5 Hyperlipidemia, unspecified
CPT/HCPCS: 11042; 87070; 87075; 87077; 87186; 87205; 87640; 99213; G0463

== ENCOUNTER 2019-03-06 15:30 | Outpatient (RCR) | payer MEDICARE, OTHER, SELFPAY ==
[2019-02-15 00:33] VITALS: BP 148/74; PULSE 68; RESP 18; TEMP 37
[2019-02-20 15:02] VITALS: BP 127/64; PULSE 68; RESP 16; TEMP 36.9; BMI 24.9
--- NOTE | 2019-02-20 19:04 | PN.PCM_ITS ---
(1) Type 2 diabetes, uncontrolled, with ulcer of heel Status: Chronic Current Visit: Yes Code(s): E11.621 - Type 2 diabetes mellitus with foot ulcer; E11.65 - Type 2 diabetes mellitus with hyperglycemia; L97.409 - Non-pressure chronic ulcer of unspecified heel and midfoot with unspecified severity Comment: right plantar heel and right achilles (2) Peripheral vascular disease Status: Chronic Current Visit: Yes Code(s): I73.9 - Peripheral vascular disease, unspecified (3) Type II diabetes mellitus Status: Chronic Current Visit: Yes Qualifiers: Diabetes mellitus scheduling representative insulin use: unspecified scheduling representative insulin use status Diabetes mellitus complication status: with skin complications Diabetes mellitus complication detail: with foot ulcer Qualified Code(s): E11.621 - Type 2 diabetes mellitus with foot ulcer; L97.509 - Non-pressure chronic ulcer of other part of unspecified foot with unspecified severity Code(s): E11.9 - Type 2 diabetes mellitus without complications Type of Wound Date of Service: 02/20/19 Chief Complaint: Nonhealing ulcer right heel History of Wound: Gibson is here for evaluation of an ulcer of his right heel. He was recently treated for this same area with Theraskin application and was discharged approximately 8 weeks ago. He has noticed increased pain in his heel for the last 2 weeks and last his noted that the area had opened after his online affiliate marketing manager had debrided some callus from the area. He has been applying Aquacel and gauze to the ulcer. He does follow with Dr. Navas regularly and had a bypass of his right SFA and popliteal arteries earlier this year. He has had procedures for his arterial disease in past to both of his lower extremities. He has tried alternative treatments with supplements and chelation therapy in the past. He also has diabetes and recent A1C was 7.2% He does wear diabetic shoes. He has been undergoing chelation treatments by Dr. German in [place]. He denies fever, chills, erythema or heavy drainage. He reports significant pain and discomfort of his right heel and his entire right leg which no one can explain. Progress of Wound: Gibson is here to follow up for nonhealing ulcer of his right heel. His wound culture was positive for multiple strains of Staph. He started on doxycycline on Saturday and is tolerating well so far. He continues to have pain. He could not find the surgical shoe he had previously with the offloading pad. He has been using a different surgical shoe without offloading pad and reports that the pain is increased. His states there is a moderate amount of drainage daily but there has been no leakage through his dressings. He has been tolerating Aquacel. He expressed concern that his bypass graft might be occluded and asked for evaluation for a pulse. - Physical Exam Vital Signs Temp Pulse Resp BP 98.4 F 68 16 127/64 H 02/20/19 15:02 02/20/19 15:02 02/20/19 15:02 02/20/19 15:02 General: Alert, Oriented x3, Cooperative, No apparent distress HEENT: Atraumatic, Normocephalic Oral: Moist Mucosa Extremities: Diminished Peripheral Pulses, Edema Skin: Ulcer/ Wound Wound Measurements and Assessment WC - Nurse 1 - General Ulcer Measurement Start: 02/20/19 15:02 Freq: Status: Active Protocol: Activity Type Activity Date Activity User E-Sign Co-Sign Detail Recorded Client Recorded Date Recorded By Document 02/20/19 15:02 [facility] [id number] 02/20/19 15:13 [facility] 02/20/19 15:02 Wound Center Nurse 1 [Ulcer Assessment] #14- R HEEL -Combined with other wound No -Current Size (cm) - Length 0.8 -Current Size (cm) - Width 0.5 -Current Size (cm) - Depth 0.2 -Total Square Cm 0.40 -Photo Taken No -Epithelialization Small 1-33% -Tunneling No -Undermining/Tunneling No -Circular Undermining No -Exudate Amt Small -Exudate Type Serosanguineous -Wound Margin Distinct, Outline Attached -Granulation Amt Large (67-100%) -Granulation Quality Pale,Red -Slough/Fibrin No -Necrosis Amt None Present (0 %) -Texture (Shahana-wound Skin Appearance) Assessed, Scarring -Moisture (Shahana-wound Skin Appearance Assessed, ) Maceration -Color (Shahana-wound Skin Appearance) Assessed,Palor -Temperature (Shahana-wound Skin No Abnormality Appearance) (Pt Warm) -Tenderness on Palpation (Shahana-wound No Skin Appearance) -Ulcer Cleansing Rinsed/ Irrigated with Saline -Foul Odor after Cleansing No -Anesthetic Used 5% Lidocaine Gel [Edema Assessment] -Lower Limb Edema Present Yes -Right Calf (cm) 28.2 -Right Ankle (cm) 21 WC - Nurse 2 - General Ulcer CM Notes Start: 02/20/19 15:02 Freq: Status: Active Protocol: Activity Type Activity Date Activity User E-Sign Co-Sign Detail Recorded Client Recorded Date Recorded By Document 02/20/19 16:28 [id number] 02/20/19 16:33 02/20/19 16:28 Wound Center Nurse 2 [Procedure/Treatment] #14- R HEEL -Time 16:28 -Correct Patient Yes -Correct Side, Site, Position Yes -Correct Procedure Yes -Procedure Performed Yes -Type of Procedure Debridement -Clinical Debridement Subcutaneous -Post Debridement Size (cm) - Length 1.0 -Post Debridement Size (cm) - Width 0.4 -Post Debridement Size (cm) - Depth 0.2 -Total Square Cm 0.40 -Wound/Ulcer Outcome Not Healed -Ulcer Cleansing Rinsed/ Irrigated with Saline -Foul Odor after Cleansing No -Bioengineered Tissue No -Bleeding Controlled with Pressure -Offloading Yes -Type of Offloading Surgical Shoe -Treatment Response Procedure Not Tolerated Well [See Physician Procedure note for Specifics] Pain Scale: 0-10 Numeric [Pain] -Is Patient Pain Free? No Psych/Mental Status: Normal Affect, Appropriate Debridement Note Post-Debridement Measurements/Treatment - Nurse 2 - General Ulcer CM Notes Start: 02/20/19 15:02 Freq: Status: Active Protocol: Activity Type Activity Date Activity User E-Sign Co-Sign Detail Recorded Client Recorded Date Recorded By Document 02/20/19 16:28 [id number] 02/20/19 16:33 02/20/19 16:28 Wound Center Nurse 2 #14- R HEEL -Time 16:28 -Correct Patient Yes -Correct Side, Site, Position Yes -Correct Procedure Yes -Procedure Performed Yes -Type of Procedure Debridement -Clinical Debridement Subcutaneous -Post Debridement Size (cm) - Length 1.0 -Post Debridement Size (cm) - Width 0.4 -Post Debridement Size (cm) - Depth 0.2 -Total Square Cm 0.40 -Wound/Ulcer Outcome Not Healed -Ulcer Cleansing Rinsed/ Irrigated with Saline -Foul Odor after Cleansing No -Bioengineered Tissue No -Bleeding Controlled with Pressure -Offloading Yes -Type of Offloading Surgical Shoe -Treatment Response Procedure Not Tolerated Well Pain Scale: 0-10 Numeric Is Patient Pain Free? No Wound debrided: Right heel Laterality: Right Wound Grade/Stage: [place] grade 2 Type of Debridement: Excisional debridement Anesthesia Used: 4% Lidocaine Solution, 5% Lidocaine Gel, Cetacaine Depth: Down to and including healthy tissue, in the subcutaneous layer Percentage of wound debrided: 100 Instrument Used: 7mm curette Tissue Removed: yellow slough, devitalized tissue Severity: Fat Layer Exposed Amount of bleeding with debridement: Mild Bleeding Controlled with: Compression and gauze Patient tolerated procedure well Assessment/Plan Active Problems Type 2 diabetes, uncontrolled, with ulcer of heel (Chronic) right plantar heel and right achilles Peripheral vascular disease (Chronic) Type II diabetes mellitus (Chronic) Assessment: 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 Diabetes mellitus - uncontrolled. Peripheral vascular disease - status post revascularization 08/07/18 Plan: Demetriuss ulcer was evaluated and debrided today. He will continue to dress his ulcer with Aquacel Ag and cover with gauze and an ABD nurse hat to his heel. His surgical shoe was fitted with an offloading pad for his heel. Was unable to palpate a pulse where his bypass graft was but did use doppler and heard pulse. Advised he and his to contact Dr. Navas's office to be seen. Discussed offloading and will have him restart tubigrip compression. Tramadol 50 mg #56 were prescribed for treatment of pain with debridements on 02/13/19. OARRS was appropriate. No signs of diversion or abuse. Last rx was from October 2018 prescribed by myself for his previous ulcer. Encouraged to call with any increase in pain or drainage, fever or chills. F/U in 1 week.
[2019-02-27 15:46] VITALS: BP 120/62; PULSE 86; RESP 18; TEMP 36.8; BMI 24.9
--- NOTE | 2019-02-27 19:38 | PN.PCM_ITS ---
(1) Type 2 diabetes, uncontrolled, with ulcer of heel Status: Chronic Current Visit: Yes Code(s): E11.621 - Type 2 diabetes mellitus with foot ulcer; E11.65 - Type 2 diabetes mellitus with hyperglycemia; L97.409 - Non-pressure chronic ulcer of unspecified heel and midfoot with unspecified severity Comment: right plantar heel and right achilles (2) Peripheral vascular disease Status: Chronic Current Visit: Yes Code(s): I73.9 - Peripheral vascular disease, unspecified (3) Type II diabetes mellitus Status: Chronic Current Visit: Yes Qualifiers: Diabetes mellitus senior living insulin use: unspecified senior living insulin use status Diabetes mellitus complication status: with skin complications Diabetes mellitus complication detail: with foot ulcer Qualified Code(s): E11.621 - Type 2 diabetes mellitus with foot ulcer; L97.509 - Non-pressure chronic ulcer of other part of unspecified foot with unspecified severity Code(s): E11.9 - Type 2 diabetes mellitus without complications Type of Wound Date of Service: 02/27/19 Chief Complaint: Nonhealing ulcer right heel History of Wound: Gibson is here for evaluation of an ulcer of his right heel. He was recently treated for this same area with Theraskin application and was discharged approximately 8 weeks ago. He has noticed increased pain in his heel for the last 2 weeks and last his noted that the area had opened after his rig builder helper had debrided some callus from the area. He has been applying Aquacel and gauze to the ulcer. He does follow with Dr. Navas regularly and had a bypass of his right SFA and popliteal arteries earlier this year. He has had procedures for his arterial disease in past to both of his lower extremities. He has tried alternative treatments with supplements and chelation therapy in the past. He also has diabetes and recent A1C was 7.2% He does wear diabetic shoes. He has been undergoing chelation treatments by Dr. German in [place]. He denies fever, chills, erythema or heavy drainage. He reports significant pain and discomfort of his right heel and his entire right leg which no one can explain. Progress of Wound: Gibson is here to follow up for nonhealing ulcer of his right heel. He continues to have pain. He felt that the new surgical shoe and padding was uncomfortable. His states there is a moderate amount of drainage daily but there has been no leakage through his dressings. He has been tolerating Aquacel. He has not received a return call from Dr. Navas's office. His has contacted them twice. - Physical Exam Vital Signs Temp Pulse Resp BP 98.2 F 86 18 120/62 02/27/19 15:46 02/27/19 15:46 02/27/19 15:46 02/27/19 15:46 General: Alert, Oriented x3, Cooperative, No apparent distress HEENT: Atraumatic, Normocephalic Oral: Moist Mucosa Extremities: Diminished Peripheral Pulses, Edema Skin: Ulcer/ Wound Wound Measurements and Assessment WC - Nurse 1 - General Ulcer Measurement Start: 02/20/19 15:02 Freq: Status: Active Protocol: Activity Type Activity Date Activity User E-Sign Co-Sign Detail Recorded Client Recorded Date Recorded By Document 02/27/19 15:46 RB [id number] 02/27/19 16:00 RB 02/27/19 15:46 Wound Center Nurse 1 [Ulcer Assessment] #14- R HEEL -Combined with other wound No -Current Size (cm) - Length 1 -Current Size (cm) - Width 0.4 -Current Size (cm) - Depth 0.2 -Total Square Cm 0.4 -Tunneling No -Undermining/Tunneling No -Circular Undermining No -Exudate Amt Small -Exudate Type Serosanguineous -Wound Margin Flat & Intact -Granulation Amt Medium (34-66%) -Granulation Quality [place] -Slough/Fibrin Yes -Necrosis Amt Small (1-33%) -Necrotic Tissue Type Adherent Slough -Structure Exposed N/A -Texture (Shahana-wound Skin Appearance) Callus -Moisture (Shahana-wound Skin Appearance Assessed ) -Color (Shahana-wound Skin Appearance) Assessed -Temperature (Shahana-wound Skin No Abnormality Appearance) (Pt Warm) -Tenderness on Palpation (Shahana-wound No Skin Appearance) -Ulcer Cleansing Wound Cleanser -Foul Odor after Cleansing No -Anesthetic Used 4% Lidocaine Solution WC - Nurse 2 - General Ulcer CM Notes Start: 02/20/19 15:02 Freq: Status: Active Protocol: Activity Type Activity Date Activity User E-Sign Co-Sign Detail Recorded Client Recorded Date Recorded By Document 02/27/19 17:13 MW [id number] 02/27/19 17:38 MW 02/27/19 17:13 Wound Center Nurse 2 [Procedure/Treatment] -Time 17:15 -Correct Patient Yes -Correct Side, Site, Position Yes -Correct Procedure Yes -Procedure Performed Yes -Type of Procedure Debridement -Clinical Debridement Subcutaneous -Post Debridement Size (cm) - Length 1.5 -Post Debridement Size (cm) - Width 1.0 -Post Debridement Size (cm) - Depth 0.2 -Total Square Cm 1.50 -Wound/Ulcer Outcome Not Healed -Ulcer Cleansing Rinsed/ Irrigated with Saline -Foul Odor after Cleansing No -Bioengineered Tissue No -Bleeding Controlled with Pressure -Offloading No -Treatment Response Procedure Tolerated Well [See Physician Procedure note for Specifics] Pain Scale: 0-10 Numeric [Pain] -Is Patient Pain Free? Yes Psych/Mental Status: Normal Affect, Appropriate Debridement Note Post-Debridement Measurements/Treatment WC - Nurse 2 - General Ulcer CM Notes Start: 02/20/19 15:02 Freq: Status: Active Protocol: Activity Type Activity Date Activity User E-Sign Co-Sign Detail Recorded Client Recorded Date Recorded By Document 02/20/19 16:28 [id number] 02/20/19 16:33 Document 02/27/19 17:13 [id number] 02/27/19 17:38 02/20/19 02/27/19 16:28 17:13 Wound Center Nurse 2 #14- R HEEL -Time 16:28 17:15 -Correct Patient Yes Yes -Correct Side, Site, Position Yes Yes -Correct Procedure Yes Yes -Procedure Performed Yes Yes -Type of Procedure Debridement Debridement -Clinical Debridement Subcutaneous Subcutaneous -Post Debridement Size (cm) - Length 1.0 1.5 -Post Debridement Size (cm) - Width 0.4 1.0 -Post Debridement Size (cm) - Depth 0.2 0.2 -Total Square Cm 0.40 1.50 -Wound/Ulcer Outcome Not Healed Not Healed -Ulcer Cleansing Rinsed/ Rinsed/ Irrigated with Irrigated with Saline Saline -Foul Odor after Cleansing No No -Bioengineered Tissue No No -Bleeding Controlled with Pressure Pressure -Offloading Yes No -Type of Offloading Surgical Shoe -Treatment Response Procedure Not Procedure Tolerated Well Tolerated Well Pain Scale: 0-10 Numeric Is Patient Pain Free? No Yes Wound debrided: right heel Laterality: Right Wound Grade/Stage: Valdez grade 2 Type of Debridement: Excisional debridement Anesthesia Used: 4% Lidocaine Solution, 5% Lidocaine Gel, Cetacaine Depth: Down to and including healthy tissue, in the subcutaneous layer Percentage of wound debrided: 100 Instrument Used: 7mm curette, #15 blade, Forceps Tissue Removed: yellwo slough, devitalized tissue Severity: Fat Layer Exposed Amount of bleeding with debridement: Mild Bleeding Controlled with: Compression and gauze Patient tolerated procedure well Assessment/Plan Active Problems Type 2 diabetes, uncontrolled, with ulcer of heel (Chronic) right plantar heel and right achilles Peripheral vascular disease (Chronic) Type II diabetes mellitus (Chronic) Assessment: 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 Diabetes mellitus - uncontrolled. Peripheral vascular disease - status post revascularization 08/07/18 Plan: Demetriuss ulcer was evaluated and debrided today. He will continue to dress his ulcer with Aquacel Ag and cover with gauze and an ABD nurse hat to his heel. His surgical shoe was fitted with a new offloading pad for his heel. Advised he and his to contact Dr. Navas's office to be seen again and will also have nurse here call and send notes. Discussed offloading and will have him restart tubigrip compression. Tramadol 50 mg #56 were prescribed for treatment of pain with debridements on 02/27/19. OARRS was appropriate. No signs of diversion or abuse.Encouraged to call with any increase in pain or drainage, fever or chills. F/U in 1 week.
[2019-03-06 15:34] VITALS: BP 165/83; PULSE 18; RESP 18; TEMP 35.5; BMI 24.9
--- NOTE | 2019-03-06 17:20 | RAD_ITS ---
HISTORY: left lower leg pain and swelling EXAMINATION/TECHNIQUE: XR AP and lateral left tibia/fibula 4 views COMPARISON: None FINDINGS: No fracture or acute osseous abnormality. Generalized bony demineralization/ osteopenia of the left ankle and left hindfoot together with left tibiotalar periarticular osteopenia. The left tibiotalar joint space is preserved. Nonspecific soft tissue swelling of the ankle and lower left leg. No evidence of bone destruction, osteomyelitis, or periosteal bone reaction The proximal left leg is unremarkable. RAD/Tibia & Fibula 2 Views IMPRESSION: 1. Soft tissue swelling of the left ankle and lower left leg accompanied by bony demineralization of the ankle and left hindfoot. This pattern may be seen with reflex sympathetic dystrophy/chronic regional pain syndrome. Please correlate clinically. 2. No osteomyelitis or fracture. at 2304 Reported and signed by: Gurdeep Ruggiero MD Electronically Signed: Gurdeep Ruggiero, at 23:03 EDT Tel , Service support ,
--- NOTE | 2019-03-06 18:06 | PCM.WC.PN ---
(1) Type 2 diabetes, uncontrolled, with ulcer of heel Status: Chronic Current Visit: Yes Code(s): E11.621 - Type 2 diabetes mellitus with foot ulcer; E11.65 - Type 2 diabetes mellitus with hyperglycemia; L97.409 - Non-pressure chronic ulcer of unspecified heel and midfoot with unspecified severity Comment: right plantar heel and right achilles (2) Peripheral vascular disease Status: Chronic Current Visit: Yes Code(s): I73.9 - Peripheral vascular disease, unspecified (3) Type II diabetes mellitus Status: Chronic Current Visit: Yes Qualifiers: Diabetes mellitus mcc insulin use: unspecified mcc insulin use status Diabetes mellitus complication status: with skin complications Diabetes mellitus complication detail: with foot ulcer Qualified Code(s): E11.621 - Type 2 diabetes mellitus with foot ulcer; L97.509 - Non-pressure chronic ulcer of other part of unspecified foot with unspecified severity Code(s): E11.9 - Type 2 diabetes mellitus without complications Type of Wound Date of Service: 03/06/19 Chief Complaint: Nonhealing ulcer right heel History of Wound: Gibson is here for evaluation of an ulcer of his right heel. He was recently treated for this same area with Theraskin application and was discharged approximately 8 weeks ago. 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 He has been applying Aquacel and gauze to the ulcer. He does follow with Dr. Navas regularly and had a bypass of his right SFA and popliteal arteries earlier this year. He has had procedures for his arterial disease in past to both of his lower extremities. He has tried alternative treatments with supplements and chelation therapy in the past. He also has diabetes and recent A1C was 7.2% He does wear diabetic shoes. He has been undergoing chelation treatments by Dr. German in [place]. He denies fever, chills, erythema or heavy drainage. He reports significant pain and discomfort of his right heel and his entire right leg which no one can explain. Progress of Wound: Gibson is here to follow up for nonhealing ulcer of his right heel. He continues to have significant pain. He felt that the new surgical shoe and padding was a little better this week. His states there is a moderate amount of drainage daily but there has been no leakage through his dressings. He has been tolerating Aquacel. - Physical Exam Vital Signs Temp Pulse Resp BP 95.9 F L 18 L 18 165/83 H 03/06/19 15:34 03/06/19 15:34 03/06/19 15:34 03/06/19 15:34 General: Alert, Oriented x3, Cooperative, No apparent distress HEENT: Atraumatic, Normocephalic Oral: Moist Mucosa Extremities: Diminished Peripheral Pulses, Edema Skin: Ulcer/ Wound Wound Measurements and Assessment WC - Nurse 1 - General Ulcer Measurement Start: 02/20/19 15:02 Freq: Status: Active Protocol: Activity Type Activity Date Activity User E-Sign Co-Sign Detail Recorded Client Recorded Date Recorded By Document 03/06/19 15:34 JENN [id number] 03/06/19 15:40 RB 03/06/19 15:34 Wound Center Nurse 1 [Ulcer Assessment] #14- R HEEL -Combined with other wound No -Current Size (cm) - Length 0.7 -Current Size (cm) - Width 0.5 -Current Size (cm) - Depth 0.2 -Total Square Cm 0.35 -Tunneling No -Undermining/Tunneling No -Circular Undermining No -Exudate Amt Small -Exudate Type Serosanguineous -Wound Margin Flat & Intact -Granulation Amt Large (67-100%) -Granulation Quality [place] -Slough/Fibrin Yes -Necrosis Amt Small (1-33%) -Necrotic Tissue Type Adherent Slough -Structure Exposed N/A -Texture (Shahana-wound Skin Appearance) Assessed,Callus -Moisture (Shahana-wound Skin Appearance Assessed, ) Maceration -Color (Shahana-wound Skin Appearance) Assessed -Temperature (Shahana-wound Skin No Abnormality Appearance) (Pt Warm) -Tenderness on Palpation (Shahana-wound No Skin Appearance) -Ulcer Cleansing Rinsed/ Irrigated with Saline -Foul Odor after Cleansing No -Anesthetic Used 4% Lidocaine Solution,5% Lidocaine Gel WC - Nurse 2 - General Ulcer CM Notes Start: 02/20/19 15:02 Freq: Status: Active Protocol: Activity Type Activity Date Activity User E-Sign Co-Sign Detail Recorded Client Recorded Date Recorded By Document 03/06/19 15:53 [id number] 03/06/19 16:15 03/06/19 15:53 Wound Center Nurse 2 [Procedure/Treatment] -Time 15:55 -Correct Patient Yes -Correct Side, Site, Position Yes -Correct Procedure Yes -Procedure Performed Yes -Type of Procedure Debridement -Clinical Debridement Subcutaneous -Post Debridement Size (cm) - Length 1 -Post Debridement Size (cm) - Width 0.8 -Post Debridement Size (cm) - Depth 0.2 -Total Square Cm 0.8 -Wound/Ulcer Outcome Not Healed -Ulcer Cleansing Rinsed/ Irrigated with Saline -Foul Odor after Cleansing No -Bioengineered Tissue No -Bleeding Controlled with Pressure -Offloading Yes -Type of Offloading Surgical Shoe -Treatment Response Procedure Tolerated Well [See Physician Procedure note for Specifics] Psych/Mental Status: Normal Affect, Appropriate Debridement Note Post-Debridement Measurements/Treatment WC - Nurse 2 - General Ulcer CM Notes Start: 02/20/19 15:02 Freq: Status: Active Protocol: Activity Type Activity Date Activity User E-Sign Co-Sign Detail Recorded Client Recorded Date Recorded By Document 02/20/19 16:28 [id number] 02/20/19 16:33 Document 02/27/19 17:13 [id number] 02/27/19 17:38 Document 03/06/19 15:53 [id number] 03/06/19 16:15 02/20/19 02/27/19 03/06/19 16:28 17:13 15:53 Wound Center Nurse 2 #14- R HEEL -Time 16:28 17:15 15:55 -Correct Patient Yes Yes Yes -Correct Side, Site, Position Yes Yes Yes -Correct Procedure Yes Yes Yes -Procedure Performed Yes Yes Yes -Type of Procedure Debridement Debridement Debridement -Clinical Debridement Subcutaneous Subcutaneous Subcutaneous -Post Debridement Size (cm) - Length 1.0 1.5 1 -Post Debridement Size (cm) - Width 0.4 1.0 0.8 -Post Debridement Size (cm) - Depth 0.2 0.2 0.2 -Total Square Cm 0.40 1.50 0.8 -Wound/Ulcer Outcome Not Healed Not Healed Not Healed -Ulcer Cleansing Rinsed/ Rinsed/ Rinsed/ Irrigated with Irrigated with Irrigated with Saline Saline Saline -Foul Odor after Cleansing No No No -Bioengineered Tissue No No No -Bleeding Controlled with Pressure Pressure Pressure -Offloading Yes No Yes -Type of Offloading Surgical Shoe Surgical Shoe -Treatment Response Procedure Not Procedure Procedure Tolerated Well Tolerated Well Tolerated Well Pain Scale: 0-10 Numeric Is Patient Pain Free? No Yes Wound debrided: right heel Laterality: Right Wound Grade/Stage: Valdez grade 2 Type of Debridement: Excisional debridement Anesthesia Used: 4% Lidocaine Solution, 5% Lidocaine Gel, Cetacaine - 1% 5 ml Depth: Down to and including healthy tissue, in the subcutaneous layer Percentage of wound debrided: 100 Instrument Used: 7mm curette, #15 blade, Forceps Tissue Removed: yellow slough, devitalized tissue Severity: Fat Layer Exposed Amount of bleeding with debridement: Mild Bleeding Controlled with: Compression and gauze Patient tolerated procedure well Assessment/Plan Active Problems Type 2 diabetes, uncontrolled, with ulcer of heel (Chronic) right plantar heel and right achilles Peripheral vascular disease (Chronic) Type II diabetes mellitus (Chronic) Assessment: 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 Diabetes mellitus - uncontrolled. Peripheral vascular disease - status post revascularization 08/07/18 Plan: Demetriuss ulcer was evaluated and debrided today. A wound culture was taken due to his continued pain and minimal improvement in his ulcer. Will treat based on results. He will continue to dress his ulcer with Aquacel Ag and cover with gauze and an ABD nurse hat to his heel. He will continue to use the surgical shoe. Dr. Navas's office was contacted today while he was in clinic and he has an appointment on Saturday morning in his [place] office. Discussed offloading and will have him restart tubigrip compression. An order for an xray of his left leg was given as this leg was very swollen and he reported numbness and has fallen several times on this leg to evaluate for fracture. Other possible etiologies could be peroneal nerve compression or lumbar radiculopathy. He was advised to contact his PCP for further evaluation. Tramadol 50 mg #56 were prescribed for treatment of pain with debridements on 02/27/19. OARRS was appropriate. No signs of diversion or abuse.Encouraged to call with any increase in pain or drainage, fever or chills. F/U in 1 week.
== END 2019-03-16 23:59 ==
LOC: WC 15:30
PROVIDERS: Family Provider Family Medicine; PCP Family Medicine; Referring Provider Family Medicine; Visit Provider Family Medicine
DX: E11.621 Type 2 diabetes mellitus with foot ulcer (principal); E11.51 Type 2 diabetes mellitus with diabetic peripheral angiopathy without gangrene; E11.65 Type 2 diabetes mellitus with hyperglycemia; L97.412 Non-pressure chronic ulcer of right heel and midfoot with fat layer exposed
CPT/HCPCS: 11042; 73590; 87070; 87075; 87186; 87205

== ENCOUNTER 2019-04-03 15:30 | Outpatient (RCR) | payer MEDICARE, OTHER, SELFPAY ==
[2019-03-17 00:36] VITALS: BP 165/83; PULSE 18; RESP 18; TEMP 35.5
[2019-03-20 14:57] VITALS: BP 154/60; PULSE 88; RESP 18; BMI 24.9
--- NOTE | 2019-03-20 19:40 | PN.PCM_ITS ---
(1) PAD (peripheral artery disease) Status: Chronic Current Visit: Yes Code(s): I73.9 - Peripheral vascular disease, unspecified (2) Cellulitis and abscess of foot Status: Chronic Current Visit: Yes Code(s): L03.119 - Cellulitis of unspecified part of limb; L02.619 - Cutaneous abscess of unspecified foot (3) Type 2 diabetes, uncontrolled, with ulcer of heel Status: Chronic Current Visit: Yes Code(s): E11.621 - Type 2 diabetes mellitus with foot ulcer; E11.65 - Type 2 diabetes mellitus with hyperglycemia; L97.409 - Non-pressure chronic ulcer of unspecified heel and midfoot with unspecified severity Comment: right plantar heel and right achilles (4) Type II diabetes mellitus Status: Chronic Current Visit: Yes Qualifiers: 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 He was recently treated for this same area with Theraskin application and was discharged approximately 8 weeks ago. He has noticed increased pain in his heel for the last 2 weeks and last his noted that the area had opened after his contact center specialist had debrided some callus from the area. He has been applying Aquacel and gauze to the ulcer. He does follow with Dr. Navas regularly and had a bypass of his right SFA and popliteal arteries earlier this year. He has had procedures for his arterial disease in past to both of his lower extremities. He has tried alternative treatments with supplements and chelation therapy in the past. He also has diabetes and recent A1C was 7.2% He does wear diabetic shoes. He has been undergoing chelation treatments by Dr. German in [place]. He denies fever, chills, erythema or heavy drainage. He reports significant pain and discomfort of his right heel and his entire right leg which no one can explain. Progress of Wound: Gibson is here to follow up for nonhealing ulcer of his right heel. He continues to have significant pain. He was hospitalized last week due to occlusion of his bypass graft in his right leg. Dr. Navas was able to open it 50%. He is scheduled to see him again this week and may consider trying again to revascularize the graft. His states there is a moderate amount of drainage daily but there has been no leakage through his dressings. He has been tolerating Aquacel. - Physical Exam Vital Signs Temp Pulse Resp BP 95.9 F L 88 18 154/60 H 03/17/19 00:36 03/20/19 14:57 03/20/19 14:57 03/20/19 14:57 General: Alert, Oriented x3, Cooperative, No apparent distress HEENT: Atraumatic, Normocephalic Oral: Moist Mucosa Extremities: Edema Skin: Ulcer/ Wound Wound Measurements and Assessment WC - Nurse 1 - General Ulcer Measurement Start: 03/20/19 14:56 Freq: Status: Active Protocol: Activity Type Activity Date Activity User E-Sign Co-Sign Detail Recorded Client Recorded Date Recorded By Document 03/20/19 15:01 DV [id number] 03/20/19 15:03 DV 03/20/19 15:01 Wound Center Nurse 1 [Ulcer Assessment] #14- R HEEL -Combined with other wound No -Current Size (cm) - Length 1.7 -Current Size (cm) - Width 1.2 -Current Size (cm) - Depth 0.2 -Total Square Cm 2.04 -Photo Taken No -Epithelialization None Present -Tunneling No -Undermining/Tunneling No -Circular Undermining No -Classification - Thickness Full Thickness without Exposed Support Structure -Exudate Amt Medium -Exudate Type Serosanguineous -Wound Margin Flat & Intact -Granulation Amt None Present (0 %) -Granulation Quality N/A -Slough/Fibrin Yes -Necrosis Amt Medium (34-66%) -Necrotic Tissue Type Adherent Slough -Structure Exposed None/Limited to Skin Breakdown -Texture (Shahana-wound Skin Appearance) Assessed, Scarring -Moisture (Shahana-wound Skin Appearance Assessed, ) Weeping -Color (Shahana-wound Skin Appearance) No Abnormality, Assessed -Temperature (Shahana-wound Skin No Abnormality Appearance) (Pt Warm) -Tenderness on Palpation (Shahana-wound Yes Skin Appearance) -Ulcer Cleansing Rinsed/ Irrigated with Saline -Foul Odor after Cleansing No [Edema Assessment] -Right Calf (cm) 26.2 -Right Ankle (cm) 20.2 WC - Nurse 2 - General Ulcer CM Notes Start: 03/20/19 14:56 Freq: Status: Active Protocol: Activity Type Activity Date Activity User E-Sign Co-Sign Detail Recorded Client Recorded Date Recorded By Document 03/20/19 15:13 DV [id number] 03/20/19 15:30 DV 03/20/19 15:13 Wound Center Nurse 2 [Procedure/Treatment] #14- R HEEL -Time 15:20 -Correct Patient Yes -Correct Side, Site, Position Yes -Correct Procedure Yes -Procedure Performed Yes -Type of Procedure Debridement -Clinical Debridement Subcutaneous -Post Debridement Size (cm) - Length 1.5 -Post Debridement Size (cm) - Width 1.1 -Post Debridement Size (cm) - Depth 0.2 -Total Square Cm 1.65 -Wound/Ulcer Outcome Not Healed -Ulcer Cleansing Rinsed/ Irrigated with Saline -Foul Odor after Cleansing No -Bioengineered Tissue No -Bleeding Controlled with Pressure -Other patient recieved injected lidocaine w/o epi -Offloading No -Treatment Response Procedure Tolerated Well [See Physician Procedure note for Specifics] Pain Scale: 0-10 Numeric [Pain] -Is Patient Pain Free? Yes Psych/Mental Status: Normal Affect, Appropriate Debridement Note Post-Debridement Measurements/Treatment WC - Nurse 2 - General Ulcer CM Notes Start: 03/20/19 14:56 Freq: Status: Active Protocol: Activity Type Activity Date Activity User E-Sign Co-Sign Detail Recorded Client Recorded Date Recorded By Document 03/20/19 15:13 DV [id number] 03/20/19 15:30 DV 03/20/19 15:13 Wound Center Nurse 2 #14- R HEEL -Time 15:20 -Correct Patient Yes -Correct Side, Site, Position Yes -Correct Procedure Yes -Procedure Performed Yes -Type of Procedure Debridement -Clinical Debridement Subcutaneous -Post Debridement Size (cm) - Length 1.5 -Post Debridement Size (cm) - Width 1.1 -Post Debridement Size (cm) - Depth 0.2 -Total Square Cm 1.65 -Wound/Ulcer Outcome Not Healed -Ulcer Cleansing Rinsed/ Irrigated with Saline -Foul Odor after Cleansing No -Bioengineered Tissue No -Bleeding Controlled with Pressure -Other patient recieved injected lidocaine w/o epi -Offloading No -Treatment Response Procedure Tolerated Well Pain Scale: 0-10 Numeric Is Patient Pain Free? Yes Wound debrided: right heel Laterality: Right Wound Grade/Stage: gonzalez grade 2 Type of Debridement: Excisional debridement Anesthesia Used: 4% Lidocaine Solution, 5% Lidocaine Gel, Cetacaine - 5 ml Depth: Down to and including healthy tissue, in the subcutaneous layer Percentage of wound debrided: 100 Instrument Used: 7mm curette, #15 blade, Forceps Tissue Removed: yellow slough, devitalized tissue Severity: Fat Layer Exposed Amount of bleeding with debridement: Mild Bleeding Controlled with: Compression and gauze Patient tolerated procedure well Assessment/Plan Active Problems Type 2 diabetes, uncontrolled, with ulcer of heel (Chronic) right plantar heel and right achilles PAD (peripheral artery disease) (Chronic) Cellulitis and abscess of foot (Chronic) Type II diabetes mellitus (Chronic) Assessment: 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 Diabetes mellitus - uncontrolled. Peripheral vascular disease - status post revascularization 08/07/18 Plan: Gibson's ulcer was evaluated and debrided today. A wound culture was taken due to his continued pain and minimal improvement in his ulcer. Will treat based on results. He will use promogran and cover with gauze and an ABD nurse hat to his heel. He will continue to use the surgical shoe. If culture is negative, will apply Epifix. Tramadol 50 mg #56 were prescribed for treatment of pain with debridements on 03/17/19. OARRS was appropriate. No signs of diversion or abuse.Encouraged to call with any increase in pain or drainage, fever or chills. F/U in 1 week.
[2019-03-27 15:52] VITALS: BP 119/75; PULSE 82; RESP 18; TEMP 36.6; BMI 24.9
--- NOTE | 2019-03-27 19:56 | PCM.WC.PN ---
(1) PAD (peripheral artery disease) Status: Chronic Current Visit: Yes Code(s): I73.9 - Peripheral vascular disease, unspecified (2) Cellulitis and abscess of foot Status: Chronic Current Visit: Yes Code(s): L03.119 - Cellulitis of unspecified part of limb; L02.619 - Cutaneous abscess of unspecified foot (3) Type 2 diabetes, uncontrolled, with ulcer of heel Status: Chronic Current Visit: Yes Code(s): E11.621 - Type 2 diabetes mellitus with foot ulcer; E11.65 - Type 2 diabetes mellitus with hyperglycemia; L97.409 - Non-pressure chronic ulcer of unspecified heel and midfoot with unspecified severity Comment: right plantar heel (4) Type II diabetes mellitus Status: Chronic Current Visit: Yes Qualifiers: Diabetes mellitus penitentiary insulin use: unspecified penitentiary insulin use status Diabetes mellitus complication status: with skin complications Diabetes mellitus complication detail: with foot ulcer Qualified Code(s): E11.621 - Type 2 diabetes mellitus with foot ulcer; L97.509 - Non-pressure chronic ulcer of other part of unspecified foot with unspecified severity Code(s): E11.9 - Type 2 diabetes mellitus without complications Type of Wound Date of Service: 03/27/19 Chief Complaint: Nonhealing ulcer right heel History of Wound: Gibson is here for evaluation of an ulcer of his right heel. He was recently treated for this same area with Theraskin application and was discharged approximately 8 weeks ago. 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 He has been applying Aquacel and gauze to the ulcer. He does follow with Dr. Navas regularly and had a bypass of his right SFA and popliteal arteries earlier this year. He has had procedures for his arterial disease in past to both of his lower extremities. He has tried alternative treatments with supplements and chelation therapy in the past. He also has diabetes and recent A1C was 7.2% He does wear diabetic shoes. He has been undergoing chelation treatments by Dr. German in [place]. He denies fever, chills, erythema or heavy drainage. He reports significant pain and discomfort of his right heel and his entire right leg which no one can explain. Progress of Wound: Gibson is here to follow up for nonhealing ulcer of his right heel. He continues to have significant pain. He had positive wound cultures and has been started on BactrimDS BID x 10 days. He was recently hospitalized due to occlusion of his bypass graft in his right leg. Dr. Navas was able to open it 50%. He is scheduled to see him again this week and plans on trying again to revascularize the graft. His states there is a moderate amount of drainage daily but there has been no leakage through his dressings. He has been tolerating Aquacel. - Physical Exam Vital Signs Temp Pulse Resp BP 97.8 F 82 18 119/75 03/27/19 15:52 03/27/19 15:52 03/27/19 15:52 03/27/19 15:52 General: Alert, Oriented x3, Cooperative, No apparent distress HEENT: Atraumatic, Normocephalic Oral: Moist Mucosa Extremities: Edema Skin: Ulcer/ Wound Wound Measurements and Assessment WC - Nurse 1 - General Ulcer Measurement Start: 03/20/19 14:56 Freq: Status: Active Protocol: Activity Type Activity Date Activity User E-Sign Co-Sign Detail Recorded Client Recorded Date Recorded By Document 03/27/19 15:52 RB [id number] 03/27/19 15:54 RB 03/27/19 15:52 Wound Center Nurse 1 [Ulcer Assessment] #14- R HEEL -Combined with other wound No -Current Size (cm) - Length 0.9 -Current Size (cm) - Width 0.6 -Current Size (cm) - Depth 0.2 -Total Square Cm 0.54 -Tunneling No -Undermining/Tunneling No -Circular Undermining No -Exudate Amt Small -Exudate Type Serosanguineous -Wound Margin Thickened -Granulation Amt Medium (34-66%) -Granulation Quality [place] -Slough/Fibrin Yes -Necrosis Amt Small (1-33%) -Necrotic Tissue Type Adherent Slough -Structure Exposed N/A -Texture (Shahana-wound Skin Appearance) Assessed,Callus -Moisture (Shahana-wound Skin Appearance Assessed ) -Color (Shahana-wound Skin Appearance) Assessed -Temperature (Shahana-wound Skin No Abnormality Appearance) (Pt Warm) -Tenderness on Palpation (Shahana-wound No Skin Appearance) -Ulcer Cleansing Wound Cleanser -Foul Odor after Cleansing No -Anesthetic Used 5% Lidocaine Gel [Edema Assessment] -Lower Limb Edema Present Yes -Right Calf (cm) 28.5 -Right Ankle (cm) 21 WC - Nurse 2 - General Ulcer CM Notes Start: 03/20/19 14:56 Freq: Status: Active Protocol: Activity Type Activity Date Activity User E-Sign Co-Sign Detail Recorded Client Recorded Date Recorded By Document 03/27/19 16:50 MW [id number] 03/27/19 17:13 MW 03/27/19 16:50 Wound Center Nurse 2 [Procedure/Treatment] #14- R HEEL -Time 16:51 -Correct Patient Yes -Correct Side, Site, Position Yes -Correct Procedure Yes -Procedure Performed Yes -Type of Procedure Debridement -Clinical Debridement Subcutaneous -Post Debridement Size (cm) - Length 0.8 -Post Debridement Size (cm) - Width 0.5 -Post Debridement Size (cm) - Depth 0.2 -Total Square Cm 0.40 -Wound/Ulcer Outcome Not Healed -Ulcer Cleansing Rinsed/ Irrigated with Saline -Foul Odor after Cleansing No -Bioengineered Tissue Yes -Type of bioengineered Tissue EPIFIX -Expiration Date 10/16/23 -Product Lot Number [id number] -Percent Used 100 -Injectable Lidocaine (%) 1 -Lidocaine (ml) 5 -Bleeding Controlled with Pressure -Other HYDROGEL LOT # [id number] -Offloading No -Treatment Response Procedure Tolerated Well [See Physician Procedure note for Specifics] Pain Scale: 0-10 Numeric [Pain] -Is Patient Pain Free? Yes Psych/Mental Status: Normal Affect, Appropriate Debridement Note Post-Debridement Measurements/Treatment - Nurse 2 - General Ulcer CM Notes Start: 03/20/19 14:56 Freq: Status: Active Protocol: Activity Type Activity Date Activity User E-Sign Co-Sign Detail Recorded Client Recorded Date Recorded By Document 03/20/19 15:13 DV [id number] 03/20/19 15:30 DV Document 03/27/19 16:50 MW [id number] 03/27/19 17:13 MW 03/20/19 03/27/19 15:13 16:50 Wound Center Nurse 2 #14- R HEEL -Time 15:20 16:51 -Correct Patient Yes Yes -Correct Side, Site, Position Yes Yes -Correct Procedure Yes Yes -Procedure Performed Yes Yes -Type of Procedure Debridement Debridement -Clinical Debridement Subcutaneous Subcutaneous -Post Debridement Size (cm) - Length 1.5 0.8 -Post Debridement Size (cm) - Width 1.1 0.5 -Post Debridement Size (cm) - Depth 0.2 0.2 -Total Square Cm 1.65 0.40 -Wound/Ulcer Outcome Not Healed Not Healed -Ulcer Cleansing Rinsed/ Rinsed/ Irrigated with Irrigated with Saline Saline -Foul Odor after Cleansing No No -Bioengineered Tissue No Yes -Type of bioengineered Tissue EPIFIX -Expiration Date 10/16/23 -Product Lot Number [id number] -Percent Used 100 -Injectable Lidocaine (%) 1 -Lidocaine (ml) 5 -Bleeding Controlled with Pressure Pressure -Other patient HYDROGEL LOT # recieved [id number] injected lidocaine w/o epi -Offloading No No -Treatment Response Procedure Procedure Tolerated Well Tolerated Well Pain Scale: 0-10 Numeric Is Patient Pain Free? Yes Yes Wound debrided: right heel Laterality: Right Wound Grade/Stage: Valdez grade 1 Type of Debridement: Excisional debridement Anesthesia Used: 4% Lidocaine Solution, 5% Lidocaine Gel, Cetacaine - 5 ml Depth: Down to and including healthy tissue, in the subcutaneous layer Percentage of wound debrided: 100 Instrument Used: 7mm curette Tissue Removed: yellow slough, devitalized tissue Severity: Fat Layer Exposed Amount of bleeding with debridement: Moderate Bleeding Controlled with: Compression and gauze Patient tolerated procedure well Assessment/Plan Active Problems Type 2 diabetes, uncontrolled, with ulcer of heel (Chronic) right plantar heel PAD (peripheral artery disease) (Chronic) Cellulitis and abscess of foot (Chronic) Type II diabetes mellitus (Chronic) Assessment: 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 Diabetes mellitus - uncontrolled. Peripheral vascular disease - status post revascularization 08/07/18 Plan: Gibson's ulcer was evaluated and debrided today. He is taking Bactrim DS BID x 10 days for a positive wound culture. Epifix was applied to his ulcer today per office systems technology instructor guidelines and rehydrated with collagen hydrogel and covered with wound veil and secured with steristrips and then covered with gauze and an ABD nurse hat to his heel. He will continue to use the surgical shoe. Tramadol 50 mg #56 were prescribed for treatment of pain with debridements on 03/17/19. OARRS was appropriate. No signs of diversion or abuse.Encouraged to call with any increase in pain or drainage, fever or chills. F/U in 1 week.
[2019-04-03 15:36] VITALS: BP 155/88; PULSE 89; RESP 18; TEMP 36.6; BMI 24.9
--- NOTE | 2019-04-03 19:15 | PN.PCM_ITS ---
(1) PAD (peripheral artery disease) Status: Chronic Current Visit: Yes Code(s): I73.9 - Peripheral vascular disease, unspecified (2) Cellulitis and abscess of foot Status: Chronic Current Visit: Yes Code(s): L03.119 - Cellulitis of unspecified part of limb; L02.619 - Cutaneous abscess of unspecified foot (3) Type 2 diabetes, uncontrolled, with ulcer of heel Status: Chronic Current Visit: Yes Code(s): E11.621 - Type 2 diabetes mellitus with foot ulcer; E11.65 - Type 2 diabetes mellitus with hyperglycemia; L97.409 - Non-pressure chronic ulcer of unspecified heel and midfoot with unspecified severity Comment: right plantar heel (4) Type II diabetes mellitus Status: Chronic Current Visit: Yes Qualifiers: Diabetes mellitus penitentiary insulin use: unspecified penitentiary insulin use status Diabetes mellitus complication status: with skin complications Diabetes mellitus complication detail: with foot ulcer Qualified Code(s): E11.621 - Type 2 diabetes mellitus with foot ulcer; L97.509 - Non-pressure chronic ulcer of other part of unspecified foot with unspecified severity Code(s): E11.9 - Type 2 diabetes mellitus without complications Type of Wound Date of Service: 04/03/19 Chief Complaint: Nonhealing ulcer right heel History of Wound: Gibson is here for evaluation of an ulcer of his right heel. He was recently treated for this same area with Theraskin application and was discharged approximately 8 weeks ago. He has noticed increased pain in his heel for the last 2 weeks and last his noted that the area had opened after his gravity meter observer had debrided some callus from the area. He has been applying Aquacel and gauze to the ulcer. He does follow with Dr. Navas regularly and had a bypass of his right SFA and popliteal arteries earlier this year. He has had procedures for his arterial disease in past to both of his lower extremities. He has tried alternative treatments with supplements and chelation therapy in the past. He also has diabetes and recent A1C was 7.2% He does wear diabetic shoes. He has been undergoing chelation treatments by Dr. German in [place]. He denies fever, chills, erythema or heavy drainage. He reports significant pain and discomfort of his right heel and his entire right leg which no one can explain. Progress of Wound: Gibson is here to follow up for nonhealing ulcer of his right heel. He continues to have significant pain. He was recently hospitalized due to occlusion of his bypass graft in his right leg and Dr. Navas was able to open it 50%. He also has blockages in his left leg. His states there is a moderate amount of drainage daily but there has been no leakage through his dressings. He tolerated application of Epifix last week. - Physical Exam Vital Signs Temp Pulse Resp BP 97.8 F 89 18 155/88 H 04/03/19 15:36 04/03/19 15:36 04/03/19 15:36 04/03/19 15:36 General: Alert, Oriented x3, Cooperative, No apparent distress HEENT: Atraumatic, Normocephalic Oral: Moist Mucosa Extremities: Edema Skin: Ulcer/ Wound Wound Measurements and Assessment WC - Nurse 1 - General Ulcer Measurement Start: 03/20/19 14:56 Freq: Status: Active Protocol: Activity Type Activity Date Activity User E-Sign Co-Sign Detail Recorded Client Recorded Date Recorded By Document 04/03/19 15:36 RB [id number] 04/03/19 15:40 RB 04/03/19 15:36 Wound Center Nurse 1 [Ulcer Assessment] #14- R HEEL -Combined with other wound No -Current Size (cm) - Length 0.1 -Current Size (cm) - Width 0.1 -Current Size (cm) - Depth 0.1 -Total Square Cm 0.01 -Tunneling No -Undermining/Tunneling No -Circular Undermining No -Exudate Amt Small -Exudate Type Serosanguineous -Wound Margin Flat & Intact -Granulation Amt Medium (34-66%) -Granulation Quality [place] -Necrosis Amt Medium (34-66%) -Necrotic Tissue Type Adherent Slough -Structure Exposed N/A -Texture (Shahana-wound Skin Appearance) Callus -Moisture (Shahana-wound Skin Appearance Assessed ) -Color (Shahana-wound Skin Appearance) Assessed -Temperature (Shahana-wound Skin No Abnormality Appearance) (Pt Warm) -Tenderness on Palpation (Shahana-wound No Skin Appearance) -Ulcer Cleansing Wound Cleanser -Foul Odor after Cleansing No -Anesthetic Used 5% Lidocaine Gel WC - Nurse 2 - General Ulcer CM Notes Start: 03/20/19 14:56 Freq: Status: Active Protocol: Activity Type Activity Date Activity User E-Sign Co-Sign Detail Recorded Client Recorded Date Recorded By Document 04/03/19 16:21 [id number] 04/03/19 16:41 04/03/19 16:21 Wound Center Nurse 2 [Procedure/Treatment] -Time 16:21 -Correct Patient Yes -Correct Side, Site, Position Yes -Correct Procedure Yes -Procedure Performed Yes -Type of Procedure Debridement -Clinical Debridement Subcutaneous -Post Debridement Size (cm) - Length 0.8 -Post Debridement Size (cm) - Width 0.8 -Post Debridement Size (cm) - Depth 0.2 -Total Square Cm 0.64 -Wound/Ulcer Outcome Not Healed -Ulcer Cleansing Rinsed/ Irrigated with Saline -Foul Odor after Cleansing No -Bioengineered Tissue Yes -Type of bioengineered Tissue EPIFIX -Expiration Date 09/16/23 -Product Lot Number [id number] -Percent Used 100 -Injectable Lidocaine (%) 1 -Lidocaine (ml) 5 -Bleeding Controlled with Pressure -Offloading Yes -Type of Offloading Surgical Shoe -Treatment Response Procedure Not Tolerated Well [See Physician Procedure note for Specifics] Pain Scale: 0-10 Numeric [Pain] -Is Patient Pain Free? No Psych/Mental Status: Normal Affect, Appropriate Debridement Note Post-Debridement Measurements/Treatment WC - Nurse 2 - General Ulcer CM Notes Start: 03/20/19 14:56 Freq: Status: Active Protocol: Activity Type Activity Date Activity User E-Sign Co-Sign Detail Recorded Client Recorded Date Recorded By Document 03/20/19 15:13 DV [id number] 03/20/19 15:30 DV Document 03/27/19 16:50 MW [id number] 03/27/19 17:13 MW Document 04/03/19 16:21 [id number] 04/03/19 16:41 03/20/19 03/27/19 04/03/19 15:13 16:50 16:21 Wound Center Nurse 2 #14- R HEEL -Time 15:20 16:51 16:21 -Correct Patient Yes Yes Yes -Correct Side, Site, Position Yes Yes Yes -Correct Procedure Yes Yes Yes -Procedure Performed Yes Yes Yes -Type of Procedure Debridement Debridement Debridement -Clinical Debridement Subcutaneous Subcutaneous Subcutaneous -Post Debridement Size (cm) - Length 1.5 0.8 0.8 -Post Debridement Size (cm) - Width 1.1 0.5 0.8 -Post Debridement Size (cm) - Depth 0.2 0.2 0.2 -Total Square Cm 1.65 0.40 0.64 -Wound/Ulcer Outcome Not Healed Not Healed Not Healed -Ulcer Cleansing Rinsed/ Rinsed/ Rinsed/ Irrigated with Irrigated with Irrigated with Saline Saline Saline -Foul Odor after Cleansing No No No -Bioengineered Tissue No Yes Yes -Type of bioengineered Tissue EPIFIX EPIFIX -Expiration Date 10/16/23 09/16/23 -Product Lot Number [id number] -Percent Used 100 100 -Injectable Lidocaine (%) 1 1 -Lidocaine (ml) 5 5 -Bleeding Controlled with Pressure Pressure Pressure -Other patient HYDROGEL LOT # recieved [id number] injected lidocaine w/o epi -Offloading No No Yes -Type of Offloading Surgical Shoe -Treatment Response Procedure Procedure Procedure Not Tolerated Well Tolerated Well Tolerated Well Pain Scale: 0-10 Numeric Is Patient Pain Free? Yes Yes No Wound debrided: right heel Laterality: Right Wound Grade/Stage: [place] grade 1 Type of Debridement: Excisional debridement Anesthesia Used: 4% Lidocaine Solution, 5% Lidocaine Gel Depth: Down to and including healthy tissue, in the subcutaneous layer Percentage of wound debrided: 100 Instrument Used: 5mm curette Tissue Removed: yellow slough, devitalized tissue Severity: Fat Layer Exposed Amount of bleeding with debridement: Mild Bleeding Controlled with: Compression and gauze Patient tolerated procedure well Assessment/Plan Active Problems Type 2 diabetes, uncontrolled, with ulcer of heel (Chronic) right plantar heel PAD (peripheral artery disease) (Chronic) Cellulitis and abscess of foot (Chronic) Type II diabetes mellitus (Chronic) Assessment: 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 Diabetes mellitus - uncontrolled. Peripheral vascular disease - status post revascularization 08/07/18 Plan: Demetriuss ulcer was evaluated and debrided today. Epifix #2 was applied to his ulcer today per planned giving officer guidelines and rehydrated with collagen hydrogel and covered with wound veil and secured with steristrips and then covered with gauze and an ABD nurse hat to his heel. He will continue to use the surgical shoe. Tramadol 50 mg #56 were prescribed for treatment of pain with debridements on 04/03/19. OARRS was appropriate. No signs of diversion or abuse.Encouraged to call with any increase in pain or drainage, fever or chills. F/U in 2 weeks.
== END 2019-04-16 23:59 ==
LOC: WC 15:30
PROVIDERS: Family Provider Family Medicine; PCP Family Medicine; Referring Provider Family Medicine; Visit Provider Family Medicine
DX: E11.621 Type 2 diabetes mellitus with foot ulcer (principal); E11.51 Type 2 diabetes mellitus with diabetic peripheral angiopathy without gangrene; E11.65 Type 2 diabetes mellitus with hyperglycemia; L97.412 Non-pressure chronic ulcer of right heel and midfoot with fat layer exposed
CPT/HCPCS: 11042; 15271; 15275; 87070; 87075; 87077; 87186; 87205; Q4186

== ENCOUNTER → 2019-04-09 15:00 | Outpatient (CLI) | payer MEDICARE, OTHER, SELFPAY ==
[2019-04-03 15:36] VITALS: BMI 24.9
== END ==
PROVIDERS: Family Provider Family Medicine; PCP Family Medicine; Referring Provider Surgery Vascular Surgery; Visit Provider Surgery Vascular Surgery
DX: I77.1 Stricture of artery (principal)
CPT/HCPCS: 93931

== ENCOUNTER 2019-05-08 11:30 | Outpatient (RCR) | payer MEDICARE, OTHER, SELFPAY ==
[2019-04-17 00:37] VITALS: BP 155/88; PULSE 89; RESP 18; TEMP 36.6
[2019-04-17 15:17] VITALS: BP 159/71; PULSE 90; RESP 16; TEMP 36.6; BMI 24.9
--- NOTE | 2019-04-17 19:12 | PN.PCM_ITS ---
(1) Type 2 diabetes, uncontrolled, with ulcer of heel Status: Chronic Current Visit: Yes Code(s): E11.621 - Type 2 diabetes mellitus with foot ulcer; E11.65 - Type 2 diabetes mellitus with hyperglycemia; L97.409 - Non-pressure chronic ulcer of unspecified heel and midfoot with unspecified severity Comment: right plantar heel (2) PAD (peripheral artery disease) Status: Chronic Current Visit: Yes Code(s): I73.9 - Peripheral vascular disease, unspecified (3) Cellulitis and abscess of foot Status: Chronic Current Visit: Yes Code(s): L03.119 - Cellulitis of unspecified part of limb; L02.619 - Cutaneous abscess of unspecified foot Type of Wound Date of Service: 04/17/19 Chief Complaint: Nonhealing ulcer right heel History of Wound: Gibson is here for evaluation of an ulcer of his right heel. He was recently treated for this same area with Theraskin application and was discharged approximately 8 weeks ago. He has noticed increased pain in his heel for the last 2 weeks and last his noted that the area had opened after his material reclaimer had debrided some callus from the area. He has been applying Aquacel and gauze to the ulcer. He does follow with Dr. Eloise ferris and had a bypass of his right SFA and popliteal arteries earlier this year. He has had procedures for his arterial disease in past to both of his lower extremities. He has tried alternative treatments with supplements and chelation therapy in the past. He also has diabetes and recent A1C was 7.2% He does wear diabetic shoes. He has been undergoing chelation treatments by Dr. German in [place]. He denies fever, chills, erythema or heavy drainage. He reports significant pain and discomfort of his right heel and his entire right leg which no one can explain. Progress of Wound: Gibson is here to follow up for nonhealing ulcer of his right heel. He continues to have significant pain. He was recently hospitalized due to occlusion of his bypass graft in his right leg and Dr. Navas was able to open it 50%. He also has blockages in his left leg. His states there is a moderate amount of drainage daily but there has been no leakage through his dressings. He tolerated application of Epifix 2 weeks ago. - Physical Exam Vital Signs Temp Pulse Resp BP 97.8 F 90 16 159/71 H 04/17/19 15:17 04/17/19 15:17 04/17/19 15:17 04/17/19 15:17 General: Alert, Oriented x3, Cooperative, No apparent distress HEENT: Atraumatic, Normocephalic Oral: Moist Mucosa Neck: Supple Extremities: No edema Skin: Ulcer/ Wound Wound Measurements and Assessment WC - Nurse 1 - General Ulcer Measurement Start: 04/17/19 15:16 Freq: Status: Active Protocol: Activity Type Activity Date Activity User E-Sign Co-Sign Detail Recorded Client Recorded Date Recorded By Document 04/17/19 15:17 [facility] [id number] 04/17/19 15:28 [facility] 04/17/19 15:17 Wound Center Nurse 1 [Ulcer Assessment] #14- R HEEL -Combined with other wound No -Current Size (cm) - Length 0.1 -Current Size (cm) - Width 0.1 -Current Size (cm) - Depth 0.1 -Total Square Cm 0.01 -Photo Taken No -Epithelialization None Present -Tunneling No -Undermining/Tunneling No -Circular Undermining No -Exudate Amt Small -Exudate Type Serous -Wound Margin Distinct, Outline Attached -Granulation Amt None Present (0 %) -Slough/Fibrin Yes -Necrosis Amt Small (1-33%) -Necrotic Tissue Type Adherent Slough -Texture (Shahana-wound Skin Appearance) Assessed, Scarring -Moisture (Shahana-wound Skin Appearance Assessed,Dry/ ) Scaly -Color (Shahana-wound Skin Appearance) Assessed -Temperature (Shahana-wound Skin No Abnormality Appearance) (Pt Warm) -Tenderness on Palpation (Shahana-wound No Skin Appearance) -Ulcer Cleansing soap and water -Foul Odor after Cleansing No -Anesthetic Used 5% Lidocaine Gel [Edema Assessment] -Lower Limb Edema Present Yes -Right Calf (cm) 27 -Right Ankle (cm) 25.1 - Nurse 2 - General Ulcer CM Notes Start: 04/17/19 15:16 Freq: Status: Active Protocol: Activity Type Activity Date Activity User E-Sign Co-Sign Detail Recorded Client Recorded Date Recorded By Document 04/17/19 16:13 [id number] 04/17/19 16:27 04/17/19 16:13 Wound Center Nurse 2 [Procedure/Treatment] #14- R HEEL -Time 16:13 -Correct Patient Yes -Correct Side, Site, Position Yes -Correct Procedure Yes -Procedure Performed Yes -Type of Procedure Debridement -Clinical Debridement Subcutaneous -Post Debridement Size (cm) - Length 1 -Post Debridement Size (cm) - Width 0.8 -Post Debridement Size (cm) - Depth 0.2 -Total Square Cm 0.8 -Wound/Ulcer Outcome Not Healed -Ulcer Cleansing Rinsed/ Irrigated with Saline -Foul Odor after Cleansing No -Bioengineered Tissue No -Injectable Lidocaine (%) 1 -Bleeding Controlled with Pressure -Offloading Yes -Type of Offloading Surgical Shoe -Treatment Response Procedure Tolerated Well [See Physician Procedure note for Specifics] Pain Scale: 0-10 Numeric [Pain] -Is Patient Pain Free? No Psych/Mental Status: Normal Affect, Appropriate Debridement Note Post-Debridement Measurements/Treatment WC - Nurse 2 - General Ulcer CM Notes Start: 04/17/19 15:16 Freq: Status: Active Protocol: Activity Type Activity Date Activity User E-Sign Co-Sign Detail Recorded Client Recorded Date Recorded By Document 04/17/19 16:13 [id number] 04/17/19 16:27 04/17/19 16:13 Wound Center Nurse 2 #14- R HEEL -Time 16:13 -Correct Patient Yes -Correct Side, Site, Position Yes -Correct Procedure Yes -Procedure Performed Yes -Type of Procedure Debridement -Clinical Debridement Subcutaneous -Post Debridement Size (cm) - Length 1 -Post Debridement Size (cm) - Width 0.8 -Post Debridement Size (cm) - Depth 0.2 -Total Square Cm 0.8 -Wound/Ulcer Outcome Not Healed -Ulcer Cleansing Rinsed/ Irrigated with Saline -Foul Odor after Cleansing No -Bioengineered Tissue No -Injectable Lidocaine (%) 1 -Bleeding Controlled with Pressure -Offloading Yes -Type of Offloading Surgical Shoe -Treatment Response Procedure Tolerated Well Pain Scale: 0-10 Numeric Is Patient Pain Free? No Wound debrided: right heel Laterality: Right Wound Grade/Stage: Grade 1 Type of Debridement: Excisional debridement Anesthesia Used: 4% Lidocaine Solution, Cetacaine Depth: Down to and including healthy tissue, in the subcutaneous layer Percentage of wound debrided: 100 Instrument Used: 5mm curette Tissue Removed: yellow slough, devitalized tissue Severity: Fat Layer Exposed Amount of bleeding with debridement: Mild Bleeding Controlled with: Compression and gauze Patient tolerated procedure well Assessment/Plan Active Problems Type 2 diabetes, uncontrolled, with ulcer of heel (Chronic) right plantar heel PAD (peripheral artery disease) (Chronic) Cellulitis and abscess of foot (Chronic) Assessment: 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 Diabetes mellitus - uncontrolled. Peripheral vascular disease - status post revascularization 08/07/18 Plan: Demetriuss ulcer was evaluated and debrided today. His ulcer is unchanged in size, possibly a little larger. Wound culture was done to evaluate for infection. Will postpone epifix application until wound culture results are back. Will dress the ulcer with Promogran moistened and cover with gauze and an ABD nurse hat to his heel. He will continue to use the surgical shoe. Tramadol 50 mg #56 were prescribed for treatment of pain with debridements on 04/03/19. OARRS was appropriate. No signs of diversion or abuse.Encouraged to call with any increase in pain or drainage, fever or chills. F/U in 1 week.
[2019-04-24 15:03] VITALS: BP 133/68; PULSE 97; RESP 20; TEMP 36.8; BMI 24.9
--- NOTE | 2019-04-24 19:09 | PCM.WC.PN ---
(1) Type 2 diabetes, uncontrolled, with ulcer of heel Status: Chronic Current Visit: Yes Code(s): E11.621 - Type 2 diabetes mellitus with foot ulcer; E11.65 - Type 2 diabetes mellitus with hyperglycemia; L97.409 - Non-pressure chronic ulcer of unspecified heel and midfoot with unspecified severity Comment: right plantar heel (2) PAD (peripheral artery disease) Status: Chronic Current Visit: Yes Code(s): I73.9 - Peripheral vascular disease, unspecified (3) Cellulitis and abscess of foot Status: Chronic Current Visit: Yes Code(s): L03.119 - Cellulitis of unspecified part of limb; L02.619 - Cutaneous abscess of unspecified foot Type of Wound Date of Service: 04/24/19 Chief Complaint: Nonhealing ulcer right heel History of Wound: Gibson is here for evaluation of an ulcer of his right heel. He was recently treated for this same area with Theraskin application and was discharged approximately 8 weeks ago. He has noticed increased pain in his heel for the last 2 weeks and last his noted that the area had opened after his hand blocker had debrided some callus from the area. He has been applying Aquacel and gauze to the ulcer. He does follow with Dr. Navas regularly and had a bypass of his right SFA and popliteal arteries earlier this year. He has had procedures for his arterial disease in past to both of his lower extremities. He has tried alternative treatments with supplements and chelation therapy in the past. He also has diabetes and recent A1C was 7.2% He does wear diabetic shoes. He has been undergoing chelation treatments by Dr. German in [place]. He denies fever, chills, erythema or heavy drainage. He reports significant pain and discomfort of his right heel and his entire right leg which no one can explain. In March 2019, he was hospitalized due to occlusion of his bypass graft in his right leg and Dr. Navas was able to open it 50%. He also has blockages in his left leg. Dr. Navas is unable to revascularize either leg at this time and he may ultimately require limb amputation if his vascular disease worsens. Progress of Wound: Gibson is here to follow up for nonhealing ulcer of his right heel. He continues to have significant pain. His states there is a moderate amount of drainage daily but there has been no leakage through his dressings. He tolerated application of Epifix 2 weeks ago. A wound culture done lst week was positive for staph epidermidis. He was started on Augmentin. - Physical Exam Vital Signs Temp Pulse Resp BP 98.2 F 97 20 H 133/68 H 04/24/19 15:03 04/24/19 15:03 04/24/19 15:03 04/24/19 15:03 General: Alert, Oriented x3, Cooperative, No apparent distress HEENT: Atraumatic, Normocephalic Oral: Moist Mucosa Neck: Supple Extremities: No edema Skin: Ulcer/ Wound Wound Measurements and Assessment WC - Nurse 1 - General Ulcer Measurement Start: 04/17/19 15:16 Freq: Status: Active Protocol: Activity Type Activity Date Activity User E-Sign Co-Sign Detail Recorded Client Recorded Date Recorded By Document 04/24/19 15:03 [facility] [id number] 04/24/19 15:10 [facility] 04/24/19 15:03 Wound Center Nurse 1 [Ulcer Assessment] #14- R HEEL -Combined with other wound No -Current Size (cm) - Length 0.7 -Current Size (cm) - Width 0.6 -Current Size (cm) - Depth 0.2 -Total Square Cm 0.42 -Tunneling No -Undermining/Tunneling No -Circular Undermining No -Exudate Amt Small -Exudate Type Serosanguineous -Wound Margin Flat & Intact -Granulation Amt Medium (34-66%) -Granulation Quality [place] -Slough/Fibrin Yes -Necrosis Amt Medium (34-66%) -Necrotic Tissue Type Adherent Slough -Structure Exposed N/A -Texture (Shahana-wound Skin Appearance) Callus -Moisture (Shahana-wound Skin Appearance Assessed ) -Color (Shahana-wound Skin Appearance) Assessed -Temperature (Shahana-wound Skin No Abnormality Appearance) (Pt Warm) -Tenderness on Palpation (Shahana-wound No Skin Appearance) -Ulcer Cleansing Rinsed/ Irrigated with Saline -Foul Odor after Cleansing No -Anesthetic Used 5% Lidocaine Gel [Edema Assessment] -Lower Limb Edema Present Yes -Right Calf (cm) 25.6 -Right Ankle (cm) 19.6 WC - Nurse 2 - General Ulcer CM Notes Start: 04/17/19 15:16 Freq: Status: Active Protocol: Activity Type Activity Date Activity User E-Sign Co-Sign Detail Recorded Client Recorded Date Recorded By Document 04/24/19 15:34 DV [id number] 04/24/19 15:53 DV 04/24/19 15:34 Wound Center Nurse 2 [Procedure/Treatment] #14- R HEEL -Time 15:36 -Correct Patient Yes -Correct Side, Site, Position Yes -Correct Procedure Yes -Procedure Performed Yes -Type of Procedure Debridement -Clinical Debridement Subcutaneous -Post Debridement Size (cm) - Length 0.8 -Post Debridement Size (cm) - Width 0.7 -Post Debridement Size (cm) - Depth 0.2 -Total Square Cm 0.56 -Wound/Ulcer Outcome Not Healed -Ulcer Cleansing Rinsed/ Irrigated with Saline -Foul Odor after Cleansing No -Bioengineered Tissue Yes -Type of bioengineered Tissue EPIFIX -Expiration Date 10/16/23 -Product Lot Number [id number] -Percent Used 100 -Injectable Lidocaine (%) 1 -Lidocaine (ml) 5 -Bleeding Controlled with Pressure -Offloading No -Treatment Response Procedure Tolerated Well [See Physician Procedure note for Specifics] Pain Scale: 0-10 Numeric [Pain] -Is Patient Pain Free? Yes Psych/Mental Status: Normal Affect, Appropriate Debridement Note Post-Debridement Measurements/Treatment WC - Nurse 2 - General Ulcer CM Notes Start: 04/17/19 15:16 Freq: Status: Active Protocol: Activity Type Activity Date Activity User E-Sign Co-Sign Detail Recorded Client Recorded Date Recorded By Document 04/17/19 16:13 [id number] 04/17/19 16:27 Document 04/24/19 15:34 DV [id number] 04/24/19 15:53 DV 04/17/19 04/24/19 16:13 15:34 Wound Center Nurse 2 #14- R HEEL -Time 16:13 15:36 -Correct Patient Yes Yes -Correct Side, Site, Position Yes Yes -Correct Procedure Yes Yes -Procedure Performed Yes Yes -Type of Procedure Debridement Debridement -Clinical Debridement Subcutaneous Subcutaneous -Post Debridement Size (cm) - Length 1 0.8 -Post Debridement Size (cm) - Width 0.8 0.7 -Post Debridement Size (cm) - Depth 0.2 0.2 -Total Square Cm 0.8 0.56 -Wound/Ulcer Outcome Not Healed Not Healed -Ulcer Cleansing Rinsed/ Rinsed/ Irrigated with Irrigated with Saline Saline -Foul Odor after Cleansing No No -Bioengineered Tissue No Yes -Type of bioengineered Tissue EPIFIX -Expiration Date 10/16/23 -Product Lot Number [id number] -Percent Used 100 -Injectable Lidocaine (%) 1 1 -Lidocaine (ml) 5 -Bleeding Controlled with Pressure Pressure -Offloading Yes No -Type of Offloading Surgical Shoe -Treatment Response Procedure Procedure Tolerated Well Tolerated Well Pain Scale: 0-10 Numeric Is Patient Pain Free? No Yes Wound debrided: right heel Laterality: Right Wound Grade/Stage: Grade 1 Type of Debridement: Excisional debridement Anesthesia Used: 4% Lidocaine Solution, 5% Lidocaine Gel, Cetacaine - 5 ml Depth: Down to and including healthy tissue, in the subcutaneous layer Percentage of wound debrided: 100 Instrument Used: 7mm curette Tissue Removed: yellow slough, devitalized tissue Severity: Fat Layer Exposed Amount of bleeding with debridement: Mild Bleeding Controlled with: Compression and gauze Patient tolerated procedure well Assessment/Plan Active Problems Type 2 diabetes, uncontrolled, with ulcer of heel (Chronic) right plantar heel PAD (peripheral artery disease) (Chronic) Cellulitis and abscess of foot (Chronic) Assessment: 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 Diabetes mellitus - uncontrolled. Peripheral vascular disease - status post revascularization 08/07/18 Plan: Demetriuss ulcer was evaluated and debrided today. His ulcer is mildly improved. Wound culture was positive and he has been started on Augmentin. Epifix was applied as per breakdown person guidelines to his right heel, rehydrated with hydrogel and covered with wound veil and secured with steri-strips. Will cover with gauze and an ABD nurse hat to his heel. He will continue to use the surgical shoe for offloading. Tramadol 50 mg #56 were prescribed for treatment of pain with debridements on 04/24/19 as well as a prescription of oxycodone 5 mg #28. OARRS was appropriate. No signs of diversion or abuse. Encouraged to call with any increase in pain or drainage, fever or chills. F/U in 1 week.
[2019-05-01 15:34] VITALS: BP 163/69; PULSE 83; RESP 16; TEMP 36.8; BMI 24.9
--- NOTE | 2019-05-01 18:36 | PN.PCM_ITS ---
(1) Type 2 diabetes, uncontrolled, with ulcer of heel Status: Chronic Current Visit: Yes Code(s): E11.621 - Type 2 diabetes mellitus with foot ulcer; E11.65 - Type 2 diabetes mellitus with hyperglycemia; L97.409 - Non-pressure chronic ulcer of unspecified heel and midfoot with unspecified severity Comment: right plantar heel (2) PAD (peripheral artery disease) Status: Chronic Current Visit: Yes Code(s): I73.9 - Peripheral vascular disease, unspecified (3) Cellulitis and abscess of foot Status: Chronic Current Visit: Yes Code(s): L03.119 - Cellulitis of unspecified part of limb; L02.619 - Cutaneous abscess of unspecified foot Type of Wound Date of Service: 05/01/19 Chief Complaint: Nonhealing ulcer right heel History of Wound: Gibson is here for evaluation of an ulcer of his right heel. He was recently treated for this same area with Theraskin application and was discharged approximately 8 weeks ago. He has noticed increased pain in his heel for the last 2 weeks and last his noted that the area had opened after his cow rider had debrided some callus from the area. He has been applying Aquacel and gauze to the ulcer. He does follow with Dr. Eloise ferris and had a bypass of his right SFA and popliteal arteries earlier this year. He has had procedures for his arterial disease in past to both of his lower extremities. He has tried alternative treatments with supplements and chelation therapy in the past. He also has diabetes and recent A1C was 7.2% He does wear diabetic shoes. He has been undergoing chelation treatments by Dr. German in [place]. He denies fever, chills, erythema or heavy drainage. He reports significant pain and discomfort of his right heel and his entire right leg which no one can explain. In March 2019, he was hospitalized due to occlusion of his bypass graft in his right leg and Dr. Navas was able to open it 50%. He also has blockages in his left leg. Dr. Navas is unable to revascularize either leg at this time and he may ultimately require limb amputation if his vascular disease worsens. Progress of Wound: Gibson is here to follow up for nonhealing ulcer of his right heel. He continues to have significant pain. His states there is a moderate amount of drainage daily but there has been no leakage through his dressings. He tolerated application of Epifix last week but there continues to be no improvement in his ulcer. He is almost finished with his antibiotic course. - Physical Exam Vital Signs Temp Pulse Resp BP 98.2 F 83 16 163/69 H 05/01/19 15:34 05/01/19 15:34 05/01/19 15:34 05/01/19 15:34 General: Alert, Oriented x3, Cooperative, No apparent distress HEENT: Atraumatic, Normocephalic Oral: Moist Mucosa Extremities: No edema, Capillary Refill Less than 3 Seconds, Cool, Diminished Peripheral Pulses Skin: Ulcer/ Wound Wound Measurements and Assessment WC - Nurse 1 - General Ulcer Measurement Start: 04/17/19 15:16 Freq: Status: Active Protocol: Activity Type Activity Date Activity User E-Sign Co-Sign Detail Recorded Client Recorded Date Recorded By Document 05/01/19 15:34 [facility] [id number] 05/01/19 15:44 [facility] 05/01/19 15:34 Wound Center Nurse 1 [Ulcer Assessment] #14- R HEEL -Combined with other wound No -Current Size (cm) - Length 1.1 -Current Size (cm) - Width 0.8 -Current Size (cm) - Depth 0.1 -Total Square Cm 0.88 -Photo Taken No -Epithelialization None Present -Tunneling No -Undermining/Tunneling No -Circular Undermining No -Exudate Amt Small -Exudate Type Sanguineous -Wound Margin Distinct, Outline Attached -Granulation Amt None Present (0 %) -Slough/Fibrin Yes -Necrosis Amt Large (67-100%) -Necrotic Tissue Type Eschar -Texture (Shahana-wound Skin Appearance) Assessed, Scarring -Moisture (Shahana-wound Skin Appearance Assessed,Dry/ ) Scaly -Color (Shahana-wound Skin Appearance) Assessed -Temperature (Shahana-wound Skin No Abnormality Appearance) (Pt Warm) -Tenderness on Palpation (Shahana-wound Yes Skin Appearance) -Ulcer Cleansing soapy water -Foul Odor after Cleansing No -Anesthetic Used 5% Lidocaine Gel [Edema Assessment] -Lower Limb Edema Present Yes -Right Calf (cm) 28 -Right Ankle (cm) 19.1 WC - Nurse 2 - General Ulcer CM Notes Start: 04/17/19 15:16 Freq: Status: Active Protocol: Activity Type Activity Date Activity User E-Sign Co-Sign Detail Recorded Client Recorded Date Recorded By Document 05/01/19 16:36 DV [id number] 05/01/19 16:38 DV 05/01/19 16:36 Wound Center Nurse 2 [Procedure/Treatment] #14- R HEEL -Time 16:36 -Correct Patient Yes -Correct Side, Site, Position Yes -Correct Procedure Yes -Procedure Performed Yes -Type of Procedure Debridement -Clinical Debridement Subcutaneous -Post Debridement Size (cm) - Length 1.0 -Post Debridement Size (cm) - Width 1.0 -Post Debridement Size (cm) - Depth 0.2 -Total Square Cm 1.00 -Wound/Ulcer Outcome Not Healed -Ulcer Cleansing Rinsed/ Irrigated with Saline -Foul Odor after Cleansing No -Bioengineered Tissue No -Bleeding Controlled with Pressure -Type of Offloading Surgical Shoe -Treatment Response Procedure Tolerated Well [See Physician Procedure note for Specifics] Pain Scale: 0-10 Numeric [Pain] -Is Patient Pain Free? Yes Psych/Mental Status: Normal Affect, Appropriate Debridement Note Post-Debridement Measurements/Treatment WC - Nurse 2 - General Ulcer CM Notes Start: 04/17/19 15:16 Freq: Status: Active Protocol: Activity Type Activity Date Activity User E-Sign Co-Sign Detail Recorded Client Recorded Date Recorded By Document 04/17/19 16:13 [id number] 04/17/19 16:27 MD Document 04/24/19 15:34 DV [id number] 04/24/19 15:53 DV Document 05/01/19 16:36 [id number] 05/01/19 16:38 DV 04/17/19 04/24/19 05/01/19 16:13 15:34 16:36 Wound Center Nurse 2 #14- R HEEL -Time 16:13 15:36 16:36 -Correct Patient Yes Yes Yes -Correct Side, Site, Position Yes Yes Yes -Correct Procedure Yes Yes Yes -Procedure Performed Yes Yes Yes -Type of Procedure Debridement Debridement Debridement -Clinical Debridement Subcutaneous Subcutaneous Subcutaneous -Post Debridement Size (cm) - Length 1 0.8 1.0 -Post Debridement Size (cm) - Width 0.8 0.7 1.0 -Post Debridement Size (cm) - Depth 0.2 0.2 0.2 -Total Square Cm 0.8 0.56 1.00 -Wound/Ulcer Outcome Not Healed Not Healed Not Healed -Ulcer Cleansing Rinsed/ Rinsed/ Rinsed/ Irrigated with Irrigated with Irrigated with Saline Saline Saline -Foul Odor after Cleansing No No No -Bioengineered Tissue No Yes No -Type of bioengineered Tissue EPIFIX -Expiration Date 10/16/23 -Product Lot Number [id number] -Percent Used 100 -Injectable Lidocaine (%) 1 1 -Lidocaine (ml) 5 -Bleeding Controlled with Pressure Pressure Pressure -Offloading Yes No -Type of Offloading Surgical Shoe Surgical Shoe -Treatment Response Procedure Procedure Procedure Tolerated Well Tolerated Well Tolerated Well Pain Scale: 0-10 Numeric Is Patient Pain Free? No Yes Yes Wound debrided: Right Heel Laterality: Right Wound Grade/Stage: Valdez grade 1 Type of Debridement: Excisional debridement Anesthesia Used: 4% Lidocaine Solution, 5% Lidocaine Gel, Cetacaine - 1% without epi 5cc Depth: Down to and including healthy tissue, in the subcutaneous layer Percentage of wound debrided: 100 Instrument Used: 7mm curette Tissue Removed: yellow slough, devitalized tissue Severity: Fat Layer Exposed Amount of bleeding with debridement: Mild Bleeding Controlled with: Compression and gauze Patient tolerated procedure well Assessment/Plan Active Problems Type 2 diabetes, uncontrolled, with ulcer of heel (Chronic) right plantar heel PAD (peripheral artery disease) (Chronic) Cellulitis and abscess of foot (Chronic) Assessment: 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 Diabetes mellitus - uncontrolled. Peripheral vascular disease - status post revascularization 08/07/18 Plan: Demetriuss ulcer was evaluated and debrided today. His ulcer is not improving with application of Epifix. He previously had successful wound healing with Theraskin application in the Spring 2018. I feel that given his high risk of poor healing given his co-morbidties that application of Theraskin would be important in acheiving healing of his ulcer and salvaging his limb. Will have him use Verenice moistened lightly and covered with gauze and an ABD nurse hat to his heel. He will continue to use the surgical shoe for offloading. Tramadol 50 mg #56 were prescribed for treatment of pain with debridements on 04/24/19 as well as a prescription of oxycodone 5 mg #28. OARRS was appropriate. No signs of diversion or abuse. Encouraged to call with any increase in pain or drainage, fever or chills. F/U in 1 week.
[2019-05-08 11:48] VITALS: BP 156/77; PULSE 64; RESP 18; TEMP 36.6; BMI 24.9
--- NOTE | 2019-05-08 15:44 | PN.PCM_ITS ---
(1) Type 2 diabetes, uncontrolled, with ulcer of heel Status: Chronic Current Visit: Yes Code(s): E11.621 - Type 2 diabetes mellitus with foot ulcer; E11.65 - Type 2 diabetes mellitus with hyperglycemia; L97.409 - Non-pressure chronic ulcer of unspecified heel and midfoot with unspecified severity Comment: right plantar heel (2) PAD (peripheral artery disease) Status: Chronic Current Visit: Yes Code(s): I73.9 - Peripheral vascular disease, unspecified (3) Cellulitis and abscess of foot Status: Chronic Current Visit: Yes Code(s): L03.119 - Cellulitis of unspecified part of limb; L02.619 - Cutaneous abscess of unspecified foot Type of Wound Date of Service: 05/08/19 Chief Complaint: Nonhealing ulcer right heel History of Wound: Gibson is here for evaluation of an ulcer of his right heel. He was recently treated for this same area with Theraskin application and was discharged approximately 8 weeks ago. 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 He has been applying Aquacel and gauze to the ulcer. He does follow with Dr. Eloise ferris and had a bypass of his right SFA and popliteal arteries earlier this year. He has had procedures for his arterial disease in past to both of his lower extremities. He has tried alternative treatments with supplements and chelation therapy in the past. He also has diabetes and recent A1C was 7.2% He does wear diabetic shoes. He has been undergoing chelation treatments by Dr. German in [place]. He denies fever, chills, erythema or heavy drainage. He reports significant pain and discomfort of his right heel and his entire right leg which no one can explain. In March 2019, he was hospitalized due to occlusion of his bypass graft in his right leg and Dr. Navas was able to open it 50%. He also has blockages in his left leg. Dr. Navas is unable to revascularize either leg at this time and he may ultimately require limb amputation if his vascular disease worsens. Progress of Wound: Gibson is here to follow up for nonhealing ulcer of his right heel. He continues to have significant pain. His states there is a moderate amount of drainage daily but there has been no leakage through his dressings. He tolerated Verenice but there continues to be no improvement in his ulcer. - Physical Exam Vital Signs Temp Pulse Resp BP 97.8 F 64 18 156/77 H 05/08/19 11:48 05/08/19 11:48 05/08/19 11:48 05/08/19 11:48 General: Alert, Oriented x3, Cooperative, No apparent distress HEENT: Atraumatic, Normocephalic Oral: Moist Mucosa Neck: Supple Extremities: No edema Skin: Ulcer/ Wound Wound Measurements and Assessment WC - Nurse 1 - General Ulcer Measurement Start: 04/17/19 15:16 Freq: Status: Active Protocol: Activity Type Activity Date Activity User E-Sign Co-Sign Detail Recorded Client Recorded Date Recorded By Document 05/08/19 11:48 RB [id number] 05/08/19 11:50 RB 05/08/19 11:48 Wound Center Nurse 1 [Ulcer Assessment] #14- R HEEL -Combined with other wound No -Current Size (cm) - Length 0.8 -Current Size (cm) - Width 0.8 -Current Size (cm) - Depth 0.2 -Total Square Cm 0.64 -Tunneling No -Undermining/Tunneling No -Circular Undermining No -Exudate Amt Small -Exudate Type Serosanguineous -Wound Margin Flat & Intact -Granulation Amt Medium (34-66%) -Granulation Quality [place] -Slough/Fibrin Yes -Necrosis Amt Small (1-33%) -Necrotic Tissue Type Adherent Slough -Structure Exposed N/A -Texture (Shahana-wound Skin Appearance) Callus -Moisture (Shahana-wound Skin Appearance Assessed ) -Color (Shahana-wound Skin Appearance) Assessed -Temperature (Shahana-wound Skin No Abnormality Appearance) (Pt Warm) -Tenderness on Palpation (Shahana-wound No Skin Appearance) -Ulcer Cleansing Wound Cleanser -Foul Odor after Cleansing No -Anesthetic Used 5% Lidocaine Gel [Edema Assessment] -Lower Limb Edema Present Yes -Right Calf (cm) 27 -Right Ankle (cm) 18.5 WC - Nurse 2 - General Ulcer CM Notes Start: 04/17/19 15:16 Freq: Status: Active Protocol: Activity Type Activity Date Activity User E-Sign Co-Sign Detail Recorded Client Recorded Date Recorded By Document 11/22/19 12:16 DV [id number] 05/08/19 12:19 DV 05/08/19 12:16 Wound Center Nurse 2 [Procedure/Treatment] #14- R HEEL -Time 12:17 -Correct Patient Yes -Correct Side, Site, Position Yes -Correct Procedure Yes -Procedure Performed Yes -Type of Procedure Debridement -Clinical Debridement Subcutaneous -Post Debridement Size (cm) - Length 1.0 -Post Debridement Size (cm) - Width 1.0 -Post Debridement Size (cm) - Depth 0.2 -Total Square Cm 1.00 -Wound/Ulcer Outcome Not Healed -Ulcer Cleansing Rinsed/ Irrigated with Saline -Foul Odor after Cleansing No -Bioengineered Tissue No -Bleeding Controlled with Pressure -Offloading No -Type of Offloading Surgical Shoe -Treatment Response Procedure Tolerated Well [See Physician Procedure note for Specifics] Pain Scale: 0-10 Numeric [Pain] -Is Patient Pain Free? Yes Psych/Mental Status: Normal Affect, Appropriate Debridement Note Post-Debridement Measurements/Treatment WC - Nurse 2 - General Ulcer CM Notes Start: 04/17/19 15:16 Freq: Status: Active Protocol: Activity Type Activity Date Activity User E-Sign Co-Sign Detail Recorded Client Recorded Date Recorded By Document 04/17/19 16:13 [id number] 04/17/19 16:27 MD Document 04/24/19 15:34 DV [id number] 04/24/19 15:53 DV Document 05/01/19 16:36 DV [id number] 05/01/19 16:38 DV Document 05/08/19 12:16 DV [id number] 05/08/19 12:19 DV 04/17/19 04/24/19 05/01/19 16:13 15:34 16:36 Wound Center Nurse 2 #14- R HEEL -Time 16:13 15:36 16:36 -Correct Patient Yes Yes Yes -Correct Side, Site, Position Yes Yes Yes -Correct Procedure Yes Yes Yes -Procedure Performed Yes Yes Yes -Type of Procedure Debridement Debridement Debridement -Clinical Debridement Subcutaneous Subcutaneous Subcutaneous -Post Debridement Size (cm) - Length 1 0.8 1.0 -Post Debridement Size (cm) - Width 0.8 0.7 1.0 -Post Debridement Size (cm) - Depth 0.2 0.2 0.2 -Total Square Cm 0.8 0.56 1.00 -Wound/Ulcer Outcome Not Healed Not Healed Not Healed -Ulcer Cleansing Rinsed/ Rinsed/ Rinsed/ Irrigated with Irrigated with Irrigated with Saline Saline Saline -Foul Odor after Cleansing No No No -Bioengineered Tissue No Yes No -Type of bioengineered Tissue EPIFIX -Expiration Date 10/16/23 -Product Lot Number [id number] -Percent Used 100 -Injectable Lidocaine (%) 1 1 -Lidocaine (ml) 5 -Bleeding Controlled with Pressure Pressure Pressure -Offloading Yes No -Type of Offloading Surgical Shoe Surgical Shoe -Treatment Response Procedure Procedure Procedure Tolerated Well Tolerated Well Tolerated Well Pain Scale: 0-10 Numeric Is Patient Pain Free? No Yes Yes 05/08/19 12:16 Wound Center Nurse 2 #14- R HEEL -Time 12:17 -Correct Patient Yes -Correct Side, Site, Position Yes -Correct Procedure Yes -Procedure Performed Yes -Type of Procedure Debridement -Clinical Debridement Subcutaneous -Post Debridement Size (cm) - Length 1.0 -Post Debridement Size (cm) - Width 1.0 -Post Debridement Size (cm) - Depth 0.2 -Total Square Cm 1.00 -Wound/Ulcer Outcome Not Healed -Ulcer Cleansing Rinsed/ Irrigated with Saline -Foul Odor after Cleansing No -Bioengineered Tissue No -Type of bioengineered Tissue -Expiration Date -Product Lot Number -Percent Used -Injectable Lidocaine (%) -Lidocaine (ml) -Bleeding Controlled with Pressure -Offloading No -Type of Offloading Surgical Shoe -Treatment Response Procedure Tolerated Well Pain Scale: 0-10 Numeric Is Patient Pain Free? Yes Wound debrided: right heel Laterality: Right Wound Grade/Stage: Valdez grade 2 Type of Debridement: Excisional debridement Anesthesia Used: 4% Lidocaine Solution, 5% Lidocaine Gel, Cetacaine - 5 cc 1% Depth: Down to and including healthy tissue, in the subcutaneous layer Percentage of wound debrided: 100 Instrument Used: 5mm curette Tissue Removed: yellow slough, devitalized tissue Severity: Fat Layer Exposed Amount of bleeding with debridement: Mild Bleeding Controlled with: Compression and gauze Patient tolerated procedure well Assessment/Plan Active Problems Type 2 diabetes, uncontrolled, with ulcer of heel (Chronic) right plantar heel PAD (peripheral artery disease) (Chronic) Cellulitis and abscess of foot (Chronic) Assessment: 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 Diabetes mellitus - uncontrolled. Peripheral vascular disease - status post revascularization 08/07/18 Plan: Gibson's ulcer was evaluated and debrided today. His ulcer is not improving with application of Epifix or with standard wound care treatment. He previously had successful wound healing with Theraskin application in the Spring 2018. I feel that given his high risk of poor healing given his co-morbidties that application of Theraskin would be important in acheiving healing of his ulcer and salvaging his limb. Will have him use Verenice moistened lightly and covered with gauze and an ABD nurse hat to his heel. He will continue to use the surgical shoe for offloading. Tramadol 50 mg #56 were prescribed for treatment of pain with debridements on 05/08/19 as well as a prescription of oxycodone 5 mg #28. OARRS was appropriate. No signs of diversion or abuse. Encouraged to call with any increase in pain or drainage, fever or chills. F/U in 2 weeks.
== END 2019-05-16 23:59 ==
LOC: WC 11:30
PROVIDERS: Family Provider Family Medicine; PCP Family Medicine; Referring Provider Family Medicine; Visit Provider Family Medicine
DX: E11.621 Type 2 diabetes mellitus with foot ulcer (principal); E11.51 Type 2 diabetes mellitus with diabetic peripheral angiopathy without gangrene; E11.65 Type 2 diabetes mellitus with hyperglycemia; L97.412 Non-pressure chronic ulcer of right heel and midfoot with fat layer exposed; L03.119 Cellulitis of unspecified part of limb
CPT/HCPCS: 11042; 15275; 87070; 87075; 87077; 87186; 87205; Q4186

== ENCOUNTER 2019-06-12 14:45 | Outpatient (RCR) | payer MEDICARE, OTHER, SELFPAY ==
[2019-05-17 00:30] VITALS: BP 156/77; PULSE 64; RESP 18; TEMP 36.6
[2019-05-29 10:54] VITALS: BP 161/65; PULSE 80; RESP 18; TEMP 36.6; BMI 24.9
--- NOTE | 2019-05-29 15:50 | PN.PCM_ITS ---
(1) Type 2 diabetes, uncontrolled, with ulcer of heel Status: Chronic Current Visit: Yes Code(s): E11.621 - Type 2 diabetes mellitus with foot ulcer; E11.65 - Type 2 diabetes mellitus with hyperglycemia; L97.409 - Non-pressure chronic ulcer of unspecified heel and midfoot with unspecified severity Comment: right plantar heel (2) PAD (peripheral artery disease) Status: Chronic Current Visit: Yes Code(s): I73.9 - Peripheral vascular disease, unspecified Type of Wound Date of Service: 05/29/19 Chief Complaint: Nonhealing ulcer right heel History of Wound: Gibson is here for evaluation of an ulcer of his right heel. He was recently treated for this same area with Theraskin application and was discharged approximately 8 weeks ago. 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 He has been applying Aquacel and gauze to the ulcer. He does follow with Dr. Navas regularly and had a bypass of his right SFA and popliteal arteries earlier this year. He has had procedures for his arterial disease in past to both of his lower extremities. He has tried alternative treatments with supplements and chelation therapy in the past. He also has diabetes and recent A1C was 7.2% He does wear diabetic shoes. He has been undergoing chelation treatments by Dr. German in [place]. He denies fever, chills, erythema or heavy drainage. He reports significant pain and discomfort of his right heel and his entire right leg which no one can explain. In March 2019, he was hospitalized due to occlusion of his bypass graft in his right leg and Dr. Navas was able to open it 50%. He also has blockages in his left leg. Dr. Navas is unable to revascularize either leg at this time and he may ultimately require limb amputation if his vascular disease worsens. Progress of Wound: Gibson is here to follow up for nonhealing ulcer of his right heel. He continues to have significant pain. He was hospitalized for emergent back surgery to remove hardware from spinal fusion that was broken and has been in [facility] for the last 3 weeks. His states there is a moderate amount of drainage daily but there has been no leakage through his dressings. He tolerated Verenice but there continues to be minimal improvement in his ulcer. - Physical Exam Vital Signs Temp Pulse Resp BP 97.8 F 80 18 161/65 H 05/29/19 10:54 05/29/19 10:54 05/29/19 10:54 05/29/19 10:54 General: Alert, Oriented x3, Cooperative, No apparent distress HEENT: Atraumatic, Normocephalic Oral: Moist Mucosa Extremities: Edema Skin: Ulcer/ Wound Wound Measurements and Assessment WC - Nurse 1 - General Ulcer Measurement Start: 05/29/19 10:54 Freq: Status: Active Protocol: Activity Type Activity Date Activity User E-Sign Co-Sign Detail Recorded Client Recorded Date Recorded By Document 05/29/19 10:54 DL [id number] 05/29/19 10:59 DL 05/29/19 10:54 Wound Center Nurse 1 [Ulcer Assessment] #14- R HEEL -Current Size (cm) - Length 0.8 -Current Size (cm) - Width 0.7 -Current Size (cm) - Depth 0.2 -Total Square Cm 0.56 -Photo Taken No -Exudate Amt Small -Exudate Type Serosanguineous -Wound Margin Thickened -Granulation Amt None Present (0 %) -Necrosis Amt Large (67-100%) -Necrotic Tissue Type Adherent Slough -Structure Exposed N/A -Texture (Shahana-wound Skin Appearance) Callus, Localized Edema -Moisture (Shahana-wound Skin Appearance Dry/Scaly ) -Color (Shahana-wound Skin Appearance) No Abnormality -Temperature (Shahana-wound Skin No Abnormality Appearance) (Pt Warm) -Tenderness on Palpation (Shahana-wound No Skin Appearance) -Ulcer Cleansing Wound Cleanser -Foul Odor after Cleansing No -Anesthetic Used 5% Lidocaine Gel [Edema Assessment] -Right Calf (cm) 27.4 -Right Ankle (cm) 21 WC - Nurse 2 - General Ulcer CM Notes Start: 05/29/19 10:54 Freq: Status: Active Protocol: Activity Type Activity Date Activity User E-Sign Co-Sign Detail Recorded Client Recorded Date Recorded By Document 05/29/19 11:11 MW [id number] 05/29/19 11:34 MW 05/29/19 11:11 Wound Center Nurse 2 [Procedure/Treatment] #14- R HEEL -Time 11:11 -Correct Patient Yes -Correct Side, Site, Position Yes -Correct Procedure Yes -Procedure Performed Yes -Type of Procedure Debridement -Clinical Debridement Subcutaneous -Post Debridement Size (cm) - Length 1.0 -Post Debridement Size (cm) - Width 0.7 -Post Debridement Size (cm) - Depth 0.2 -Total Square Cm 0.70 -Wound/Ulcer Outcome Not Healed -Ulcer Cleansing Rinsed/ Irrigated with Saline -Foul Odor after Cleansing No -Bioengineered Tissue Yes -Type of bioengineered Tissue EPIFIX -Expiration Date 01/16/24 -Product Lot Number [id number] -Percent Used 100 -Injectable Lidocaine (%) 1 -Lidocaine (ml) 5 -Bleeding Controlled with Pressure -Other C.HYDROGEL LOT# [id number] -Offloading No -Treatment Response Procedure Tolerated Well [See Physician Procedure note for Specifics] Pain Scale: 0-10 Numeric [Pain] -Is Patient Pain Free? Yes Psych/Mental Status: Normal Affect, Appropriate Debridement Note Post-Debridement Measurements/Treatment WC - Nurse 2 - General Ulcer CM Notes Start: 05/29/19 10:54 Freq: Status: Active Protocol: Activity Type Activity Date Activity User E-Sign Co-Sign Detail Recorded Client Recorded Date Recorded By Document 05/29/19 11:11 MW [id number] 05/29/19 11:34 MW 05/29/19 11:11 Wound Center Nurse 2 #14- R HEEL -Time 11:11 -Correct Patient Yes -Correct Side, Site, Position Yes -Correct Procedure Yes -Procedure Performed Yes -Type of Procedure Debridement -Clinical Debridement Subcutaneous -Post Debridement Size (cm) - Length 1.0 -Post Debridement Size (cm) - Width 0.7 -Post Debridement Size (cm) - Depth 0.2 -Total Square Cm 0.70 -Wound/Ulcer Outcome Not Healed -Ulcer Cleansing Rinsed/ Irrigated with Saline -Foul Odor after Cleansing No -Bioengineered Tissue Yes -Type of bioengineered Tissue EPIFIX -Expiration Date 01/16/24 -Product Lot Number [id number] -Percent Used 100 -Injectable Lidocaine (%) 1 -Lidocaine (ml) 5 -Bleeding Controlled with Pressure -Other C.HYDROGEL LOT# [id number] -Offloading No -Treatment Response Procedure Tolerated Well Pain Scale: 0-10 Numeric Is Patient Pain Free? Yes Wound debrided: right heel Laterality: Right Wound Grade/Stage: Valdez grade 2 Type of Debridement: Excisional debridement Anesthesia Used: 4% Lidocaine Solution, 5% Lidocaine Gel, Cetacaine - 5 ml Depth: Down to and including healthy tissue, in the subcutaneous layer Percentage of wound debrided: 100 Instrument Used: 7mm curette Tissue Removed: yellow slough, devitalized tissue Severity: Fat Layer Exposed Amount of bleeding with debridement: Mild Bleeding Controlled with: Compression and gauze Patient tolerated procedure well Assessment/Plan Active Problems Type 2 diabetes, uncontrolled, with ulcer of heel (Chronic) right plantar heel PAD (peripheral artery disease) (Chronic) Assessment: 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 Diabetes mellitus - uncontrolled. Peripheral vascular disease - status post revascularization 08/07/18 Plan: Demetriuss ulcer was evaluated and debrided today. His ulcer is not improving with application of Epifix or with standard wound care treatment. He previously had successful wound healing with Theraskin application in the Spring 2018. I feel that given his high risk of poor healing given his co-morbidties that application of Theraskin would be important in acheiving healing of his ulcer and salvaging his limb. Epifix #4 applied today per model set artist guidelines and rehydrated with hydrogel. Covered with wound veil and secured with steri-strips. Verenice moistened lightly and covered with gauze and an ABD nurse hat to his heel. He will continue to use the surgical shoe for offloading. Tramadol 50 mg #56 were prescribed for treatment of pain with debridements on 05/29/19 as well as a prescription of oxycodone 5 mg #28. OARRS was appropriate. No signs of diversion or abuse. Encouraged to call with any increase in pain or drainage, fever or chills. F/U in 1 week.
[2019-06-05 11:05] VITALS: BP 176/73; PULSE 75; RESP 16; TEMP 36.6; BMI 24.9
--- NOTE | 2019-06-05 13:26 | PCM.WC.PN ---
(1) Type 2 diabetes, uncontrolled, with ulcer of heel Status: Chronic Current Visit: Yes Code(s): E11.621 - Type 2 diabetes mellitus with foot ulcer; E11.65 - Type 2 diabetes mellitus with hyperglycemia; L97.409 - Non-pressure chronic ulcer of unspecified heel and midfoot with unspecified severity Comment: right plantar heel (2) PAD (peripheral artery disease) Status: Chronic Current Visit: Yes Code(s): I73.9 - Peripheral vascular disease, unspecified Type of Wound Date of Service: 06/05/19 Chief Complaint: Nonhealing ulcer right heel History of Wound: Gibson is here for evaluation of an ulcer of his right heel. He was recently treated for this same area with Theraskin application and was discharged approximately 8 weeks ago. He has noticed increased pain in his heel for the last 2 weeks and last his noted that the area had opened after his ict systems test engineer had debrided some callus from the area. He has been applying Aquacel and gauze to the ulcer. He does follow with Dr. Navas regularly and had a bypass of his right SFA and popliteal arteries earlier this year. He has had procedures for his arterial disease in past to both of his lower extremities. He has tried alternative treatments with supplements and chelation therapy in the past. He also has diabetes and recent A1C was 7.2% He does wear diabetic shoes. He has been undergoing chelation treatments by Dr. German in [place]. He denies fever, chills, erythema or heavy drainage. He reports significant pain and discomfort of his right heel and his entire right leg which no one can explain. In March 2019, he was hospitalized due to occlusion of his bypass graft in his right leg and Dr. Navas was able to open it 50%. He also has blockages in his left leg. Dr. Navas is unable to revascularize either leg at this time and he may ultimately require limb amputation if his vascular disease worsens. Progress of Wound: Gibson is here to follow up for nonhealing ulcer of his right heel. He continues to have significant pain. His states there is a moderate amount of drainage daily but there has been no leakage through his dressings. He tolerated Epifix with mild improvement of his ulcer. Denies fever, chills, erythema. - Physical Exam Vital Signs Temp Pulse Resp BP 98 F 75 16 176/73 H 06/05/19 11:05 06/05/19 11:05 06/05/19 11:05 06/05/19 11:05 General: Alert, Oriented x3, Cooperative, No apparent distress HEENT: Atraumatic, Normocephalic Oral: Moist Mucosa Extremities: Edema Skin: Ulcer/ Wound Wound Measurements and Assessment WC - Nurse 1 - General Ulcer Measurement Start: 05/29/19 10:54 Freq: Status: Active Protocol: Activity Type Activity Date Activity User E-Sign Co-Sign Detail Recorded Client Recorded Date Recorded By Document 06/05/19 11:05 [facility] [id number] 06/05/19 11:16 [facility] 06/05/19 11:05 Wound Center Nurse 1 [Ulcer Assessment] #14- R HEEL -Combined with other wound No -Current Size (cm) - Length 0.9 -Current Size (cm) - Width 0.7 -Current Size (cm) - Depth 0.2 -Total Square Cm 0.63 -Date of Last Picture (Recall this 06/05/19 field) -Photo Taken Yes -Epithelialization Small 1-33% -Tunneling No -Undermining/Tunneling No -Circular Undermining No -Exudate Amt Medium -Exudate Type Serosanguineous -Wound Margin Flat & Intact -Granulation Amt Small (1-33%) -Granulation Quality [place] -Slough/Fibrin Yes -Necrosis Amt Medium (34-66%) -Necrotic Tissue Type Adherent Slough -Texture (Shahana-wound Skin Appearance) Callus -Moisture (Shahana-wound Skin Appearance Assessed,Dry/ ) Scaly -Color (Shahana-wound Skin Appearance) Assessed -Temperature (Shahana-wound Skin No Abnormality Appearance) (Pt Warm) -Tenderness on Palpation (Shahana-wound Yes Skin Appearance) -Ulcer Cleansing soapy water -Foul Odor after Cleansing No -Anesthetic Used 5% Lidocaine Gel [Edema Assessment] -Lower Limb Edema Present Yes -Right Calf (cm) 24.5 -Right Ankle (cm) 19.4 WC - Nurse 2 - General Ulcer CM Notes Start: 05/29/19 10:54 Freq: Status: Active Protocol: Activity Type Activity Date Activity User E-Sign Co-Sign Detail Recorded Client Recorded Date Recorded By Document 06/05/19 11:49 DV [id number] 06/05/19 12:09 DV 06/05/19 11:49 Wound Center Nurse 2 [Procedure/Treatment] #14- R HEEL -Time 11:52 -Correct Patient Yes -Correct Side, Site, Position Yes -Correct Procedure Yes -Procedure Performed Yes -Type of Procedure Debridement -Clinical Debridement Subcutaneous -Post Debridement Size (cm) - Length 0.8 -Post Debridement Size (cm) - Width 0.7 -Post Debridement Size (cm) - Depth 0.2 -Total Square Cm 0.56 -Wound/Ulcer Outcome Not Healed -Ulcer Cleansing Rinsed/ Irrigated with Saline -Foul Odor after Cleansing No -Bioengineered Tissue Yes -Type of bioengineered Tissue EPIFIX -Expiration Date 01/16/24 -Product Lot Number [id number] -Percent Used 100 -Injectable Lidocaine w/ Epi (%) 1 -Bleeding Controlled with Pressure -Type of Offloading Camwalker -Treatment Response Procedure Tolerated Well [See Physician Procedure note for Specifics] Pain Scale: 0-10 Numeric [Pain] -Is Patient Pain Free? Yes Psych/Mental Status: Normal Affect, Appropriate Debridement Note Post-Debridement Measurements/Treatment WC - Nurse 2 - General Ulcer CM Notes Start: 05/29/19 10:54 Freq: Status: Active Protocol: Activity Type Activity Date Activity User E-Sign Co-Sign Detail Recorded Client Recorded Date Recorded By Document 05/29/19 11:11 MW [id number] 05/29/19 11:34 MW Document 06/05/19 11:49 DV [id number] 06/05/19 12:09 DV 05/29/19 06/05/19 11:11 11:49 Wound Center Nurse 2 #14- R HEEL -Time 11:11 11:52 -Correct Patient Yes Yes -Correct Side, Site, Position Yes Yes -Correct Procedure Yes Yes -Procedure Performed Yes Yes -Type of Procedure Debridement Debridement -Clinical Debridement Subcutaneous Subcutaneous -Post Debridement Size (cm) - Length 1.0 0.8 -Post Debridement Size (cm) - Width 0.7 0.7 -Post Debridement Size (cm) - Depth 0.2 0.2 -Total Square Cm 0.70 0.56 -Wound/Ulcer Outcome Not Healed Not Healed -Ulcer Cleansing Rinsed/ Rinsed/ Irrigated with Irrigated with Saline Saline -Foul Odor after Cleansing No No -Bioengineered Tissue Yes Yes -Type of bioengineered Tissue EPIFIX EPIFIX -Expiration Date 01/16/24 01/16/24 -Product Lot Number [id number] -Percent Used 100 100 -Injectable Lidocaine (%) 1 -Lidocaine (ml) 5 -Injectable Lidocaine w/ Epi (%) 1 -Bleeding Controlled with Pressure Pressure -Other C.HYDROGEL LOT# [id number] -Offloading No -Type of Offloading Camwalker -Treatment Response Procedure Procedure Tolerated Well Tolerated Well Pain Scale: 0-10 Numeric Is Patient Pain Free? Yes Yes Wound debrided: right heel Laterality: Right Wound Grade/Stage: Valedz grade 3 Type of Debridement: Excisional debridement Anesthesia Used: 4% Lidocaine Solution, 5% Lidocaine Gel, Cetacaine - 5 ml lidocaine 1% Depth: Down to and including healthy tissue, in the subcutaneous layer Percentage of wound debrided: 100 Instrument Used: 5mm curette Tissue Removed: yellow slough, devitalized tissue Severity: Fat Layer Exposed Amount of bleeding with debridement: Mild Bleeding Controlled with: Compression and gauze Patient tolerated procedure well Assessment/Plan Active Problems Type 2 diabetes, uncontrolled, with ulcer of heel (Chronic) right plantar heel PAD (peripheral artery disease) (Chronic) Assessment: 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 Diabetes mellitus - uncontrolled. Peripheral vascular disease - status post revascularization 08/07/18 Plan: Demetriuss ulcer was evaluated and debrided today. His ulcer is mildly improved with application of Epifix. He was approved for Theraskin application. Epifix #5 applied today per director nicu guidelines and rehydrated with hydrogel. Covered with wound veil and secured with steri-strips. Verenice moistened lightly and covered with gauze and an ABD nurse hat to his heel. He will continue to use the surgical shoe for offloading. Tramadol 50 mg #56 were prescribed for treatment of pain with debridements on 05/29/19 as well as a prescription of oxycodone 5 mg #28. OARRS was appropriate. No signs of diversion or abuse. Encouraged to call with any increase in pain or drainage, fever or chills. F/U in 1 week.
[2019-06-12 15:03] VITALS: BP 128/74; PULSE 75; RESP 16; TEMP 36.6; BMI 24.9
--- NOTE | 2019-06-12 18:18 | PN.PCM_ITS ---
(1) Type 2 diabetes, uncontrolled, with ulcer of heel Status: Chronic Code(s): E11.621 - Type 2 diabetes mellitus with foot ulcer; E11.65 - Type 2 diabetes mellitus with hyperglycemia; L97.409 - Non-pressure chronic ulcer of unspecified heel and midfoot with unspecified severity Comment: right plantar heel (2) PAD (peripheral artery disease) Status: Chronic Code(s): I73.9 - Peripheral vascular disease, unspecified Type of Wound Date of Service: 06/12/19 Chief Complaint: Nonhealing ulcer right heel History of Wound: Gibson is here for evaluation of an ulcer of his right heel. He was recently treated for this same area with Theraskin application and was discharged approximately 8 weeks ago. He has noticed increased pain in his heel for the last 2 weeks and last his noted that the area had opened after his dock loader had debrided some callus from the area. He has been applying Aquacel and gauze to the ulcer. He does follow with Dr. Navas regularly and had a bypass of his right SFA and popliteal arteries earlier this year. He has had procedures for his arterial disease in past to both of his lower extremities. He has tried alternative treatments with supplements and chelation therapy in the past. He also has diabetes and recent A1C was 7.2% He does wear diabetic shoes. He has been undergoing chelation treatments by Dr. German in [place]. He denies fever, chills, erythema or heavy drainage. He reports significant pain and discomfort of his right heel and his entire right leg which no one can explain. In March 2019, he was hospitalized due to occlusion of his bypass graft in his right leg and Dr. Navas was able to open it 50%. He also has blockages in his left leg. Dr. Navas is unable to revascularize either leg at this time and he may ultimately require limb amputation if his vascular disease worsens. Progress of Wound: Gibson is here to follow up for nonhealing ulcer of his right heel. He continues to have significant pain to his heal. His states there is a moderate amount of drainage daily but there has been no leakage through his dressings. He tolerated Epifix with minimal improvement of his ulcer. Denies fever, chills, erythema. - Physical Exam Vital Signs Temp Pulse Resp BP 97.9 F 75 16 128/74 H 06/12/19 15:03 06/12/19 15:03 06/12/19 15:03 06/12/19 15:03 General: Alert, Oriented x3, Cooperative, No apparent distress HEENT: Atraumatic, Normocephalic Oral: Moist Mucosa Extremities: Edema Skin: Ulcer/ Wound Wound Measurements and Assessment WC - Nurse 1 - General Ulcer Measurement Start: 05/29/19 10:54 Freq: Status: Active Protocol: Activity Type Activity Date Activity User E-Sign Co-Sign Detail Recorded Client Recorded Date Recorded By Document 06/12/19 15:03 BMF [id number] 06/12/19 15:17 BMF 06/12/19 15:03 Wound Center Nurse 1 [Ulcer Assessment] #14- R HEEL -Combined with other wound No -Current Size (cm) - Length 1 -Current Size (cm) - Width 0.8 -Current Size (cm) - Depth 0.1 -Total Square Cm 0.8 -Photo Taken No -Epithelialization None Present -Tunneling No -Undermining/Tunneling No -Circular Undermining No -Exudate Amt Small -Exudate Type Serosanguineous -Wound Margin Distinct, Outline Attached -Granulation Amt None Present (0 %) -Slough/Fibrin Yes -Necrosis Amt Large (67-100%) -Necrotic Tissue Type Adherent Slough -Texture (Shahana-wound Skin Appearance) Assessed, Scarring -Moisture (Shahana-wound Skin Appearance Assessed,Dry/ ) Scaly -Color (Shahana-wound Skin Appearance) Assessed -Temperature (Shahana-wound Skin No Abnormality Appearance) (Pt Warm) -Tenderness on Palpation (Shahana-wound Yes Skin Appearance) -Ulcer Cleansing soapy water -Foul Odor after Cleansing No -Anesthetic Used 5% Lidocaine Gel [Edema Assessment] -Lower Limb Edema Present No -Right Calf (cm) 27 -Right Ankle (cm) 17.7 WC - Nurse 2 - General Ulcer CM Notes Start: 05/29/19 10:54 Freq: Status: Active Protocol: Activity Type Activity Date Activity User E-Sign Co-Sign Detail Recorded Client Recorded Date Recorded By Document 06/12/19 15:34 MW [id number] 06/12/19 16:02 MW 06/12/19 15:34 Wound Center Nurse 2 [Procedure/Treatment] #14- R HEEL -Time 15:39 -Correct Patient Yes -Correct Side, Site, Position Yes -Correct Procedure Yes -Procedure Performed Yes -Type of Procedure Debridement -Clinical Debridement Subcutaneous -Post Debridement Size (cm) - Length 0.8 -Post Debridement Size (cm) - Width 0.9 -Post Debridement Size (cm) - Depth 0.2 -Total Square Cm 0.72 -Wound/Ulcer Outcome Not Healed -Ulcer Cleansing Rinsed/ Irrigated with Saline -Foul Odor after Cleansing No -Bioengineered Tissue Yes -Type of bioengineered Tissue THERASKIN -Expiration Date 01/21/23 -Product Lot Number [id number] -Percent Used 45 -Saline Lot Number [id number] -Injectable Lidocaine (%) 2 -Lidocaine (ml) 5 -Bleeding Controlled with Pressure -Offloading No -Treatment Response Procedure Tolerated Well [See Physician Procedure note for Specifics] Pain Scale: 0-10 Numeric [Pain] -Is Patient Pain Free? Yes Psych/Mental Status: Normal Affect, Appropriate Debridement Note Post-Debridement Measurements/Treatment WC - Nurse 2 - General Ulcer CM Notes Start: 05/29/19 10:54 Freq: Status: Active Protocol: Activity Type Activity Date Activity User E-Sign Co-Sign Detail Recorded Client Recorded Date Recorded By Document 05/29/19 11:11 MW [id number] 05/29/19 11:34 MW Document 06/05/19 11:49 DV [id number] 06/05/19 12:09 DV Document 06/12/19 15:34 MW [id number] 06/12/19 16:02 MW 05/29/19 06/05/19 06/12/19 11:11 11:49 15:34 Wound Center Nurse 2 #14- R HEEL -Time 11:11 11:52 15:39 -Correct Patient Yes Yes Yes -Correct Side, Site, Position Yes Yes Yes -Correct Procedure Yes Yes Yes -Procedure Performed Yes Yes Yes -Type of Procedure Debridement Debridement Debridement -Clinical Debridement Subcutaneous Subcutaneous Subcutaneous -Post Debridement Size (cm) - Length 1.0 0.8 0.8 -Post Debridement Size (cm) - Width 0.7 0.7 0.9 -Post Debridement Size (cm) - Depth 0.2 0.2 0.2 -Total Square Cm 0.70 0.56 0.72 -Wound/Ulcer Outcome Not Healed Not Healed Not Healed -Ulcer Cleansing Rinsed/ Rinsed/ Rinsed/ Irrigated with Irrigated with Irrigated with Saline Saline Saline -Foul Odor after Cleansing No No No -Bioengineered Tissue Yes Yes Yes -Type of bioengineered Tissue EPIFIX EPIFIX THERASKIN -Expiration Date 01/16/24 01/16/24 01/21/23 -Product Lot Number [id number] -Percent Used 100 100 45 -Saline Lot Number [id number] -Injectable Lidocaine (%) 1 2 -Lidocaine (ml) 5 5 -Injectable Lidocaine w/ Epi (%) 1 -Bleeding Controlled with Pressure Pressure Pressure -Other C.HYDROGEL LOT# [id number] -Offloading No No -Type of Offloading Camwalker -Treatment Response Procedure Procedure Procedure Tolerated Well Tolerated Well Tolerated Well Pain Scale: 0-10 Numeric Is Patient Pain Free? 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 Diabetes mellitus - uncontrolled. Peripheral vascular disease - status post revascularization 08/07/18 Plan: Gibson's ulcer was evaluated and debrided today. His ulcer is not improving with application of Epifix. Theraskin application performed today per office services specialist guidelines approx. 45% of product used to cover wound. Secured with dermabond. Covered with wound veil and secured with steri-strips. Covered with gauze and an ABD nurse hat to his heel. He will continue to use the surgical shoe for offloading. Tramadol 50 mg #56 were prescribed for treatment of pain with debridements on 06/12/19 as well as a prescription of oxycodone 5 mg #28. OARRS was appropriate. No signs of diversion or abuse. Encouraged to call with any increase in pain or drainage, fever or chills. F/U in 1 week.
== END 2019-06-16 23:59 ==
LOC: WC 14:45
PROVIDERS: Family Provider Family Medicine; PCP Family Medicine; Referring Provider Family Medicine; Visit Provider Family Medicine
DX: E11.621 Type 2 diabetes mellitus with foot ulcer (principal); E11.65 Type 2 diabetes mellitus with hyperglycemia; E11.51 Type 2 diabetes mellitus with diabetic peripheral angiopathy without gangrene; L97.412 Non-pressure chronic ulcer of right heel and midfoot with fat layer exposed; E11.40 Type 2 diabetes mellitus with diabetic neuropathy, unspecified
CPT/HCPCS: 15271; 15275; Q4121; Q4186

== ENCOUNTER 2019-07-17 15:40 | Outpatient (RCR) | payer MEDICARE, OTHER, SELFPAY ==
[2019-06-17 00:26] VITALS: BP 128/74; PULSE 75; RESP 16; TEMP 36.6
[2019-06-19 10:57] VITALS: BP 148/78; PULSE 80; RESP 16; TEMP 36.8; BMI 24.9
--- NOTE | 2019-06-19 13:52 | PN.PCM_ITS ---
(1) Type 2 diabetes, uncontrolled, with ulcer of heel Status: Chronic Current Visit: Yes Code(s): E11.621 - Type 2 diabetes mellitus with foot ulcer; E11.65 - Type 2 diabetes mellitus with hyperglycemia; L97.409 - Non-pressure chronic ulcer of unspecified heel and midfoot with unspecified severity Comment: right plantar heel (2) PAD (peripheral artery disease) Status: Chronic Current Visit: Yes Code(s): I73.9 - Peripheral vascular disease, unspecified (3) Non-healing open wound of heel Status: Chronic Current Visit: Yes Qualifiers: Encounter type: subsequent encounter Laterality: right Qualified Code(s): S91.301D - Unspecified open wound, right foot, subsequent encounter Code(s): S91.309A - Unspecified open wound, unspecified foot, initial encounter (4) Type II diabetes mellitus Status: Chronic Current Visit: Yes Qualifiers: Diabetes mellitus shelter insulin use: unspecified 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 He was recently treated for this same area with Theraskin application and was discharged approximately 8 weeks ago. He has noticed increased pain in his heel for the last 2 weeks and last his noted that the area had opened after his tour agent had debrided some callus from the area. He has been applying Aquacel and gauze to the ulcer. He does follow with Dr. Navas regularly and had a bypass of his right SFA and popliteal arteries earlier this year. He has had procedures for his arterial disease in past to both of his lower extremities. He has tried alternative treatments with supplements and chelation therapy in the past. He also has diabetes and recent A1C was 7.2% He does wear diabetic shoes. He has been undergoing chelation treatments by Dr. German in [place]. He denies fever, chills, erythema or heavy drainage. He reports significant pain and discomfort of his right heel and his entire right leg which no one can explain. In March 2019, he was hospitalized due to occlusion of his bypass graft in his right leg and Dr. Navas was able to open it 50%. He also has blockages in his left leg. Dr. Navas is unable to revascularize either leg at this time and he may ultimately require limb amputation if his vascular disease worsens. Progress of Wound: Gibson is here to follow up for nonhealing ulcer of his right heel. He continues to have significant pain. His states there is a moderate amount of drainage daily but there has been no leakage through his dressings. He tolerated Theraskin application to his ulcer and it is intact and adherent. Denies fever, chills, erythema. - Physical Exam Vital Signs Temp Pulse Resp BP 98.2 F 80 16 148/78 H 06/19/19 10:57 06/19/19 10:57 06/19/19 10:57 06/19/19 10:57 General: Alert, Oriented x3, Cooperative, No apparent distress HEENT: Atraumatic, Normocephalic Oral: Moist Mucosa Extremities: Edema Skin: Ulcer/ Wound Wound Measurements and Assessment WC - Nurse 1 - General Ulcer Measurement Start: 06/19/19 10:57 Freq: Status: Active Protocol: Activity Type Activity Date Activity User E-Sign Co-Sign Detail Recorded Client Recorded Date Recorded By Document 06/19/19 10:57 JF [id number] 06/19/19 10:59 LAUREN 06/19/19 10:57 Wound Center Nurse 1 [Ulcer Assessment] #14- R HEEL -Combined with other wound No -Photo Taken No -Epithelialization None Present -Tunneling No -Undermining/Tunneling No -Circular Undermining No -Exudate Amt Small -Exudate Type Serosanguineous -Wound Margin Flat & Intact -Granulation Amt None Present (0 %) [Edema Assessment] -Lower Limb Edema Present No -Right Calf (cm) 26 -Right Ankle (cm) 17.7 WC - Nurse 2 - General Ulcer CM Notes Start: 06/19/19 10:57 Freq: Status: Active Protocol: Activity Type Activity Date Activity User E-Sign Co-Sign Detail Recorded Client Recorded Date Recorded By Document 06/19/19 11:35 MW [id number] 06/19/19 11:42 MW 06/19/19 11:35 Wound Center Nurse 2 [Procedure/Treatment] #14- R HEEL -Time 11:35 -Correct Patient Yes -Correct Side, Site, Position Yes -Correct Procedure Yes -Procedure Performed No -Wound/Ulcer Outcome Not Healed -Ulcer Cleansing Not Cleansed -Foul Odor after Cleansing No -Bleeding Controlled with NA -Other theraskin intact, left in place -Offloading No -Treatment Response Procedure Tolerated Well [See Physician Procedure note for Specifics] Pain Scale: 0-10 Numeric [Pain] -Is Patient Pain Free? Yes Psych/Mental Status: Normal Affect, Appropriate Debridement Note Post-Debridement Measurements/Treatment WC - Nurse 2 - General Ulcer CM Notes Start: 06/19/19 10:57 Freq: Status: Active Protocol: Activity Type Activity Date Activity User E-Sign Co-Sign Detail Recorded Client Recorded Date Recorded By Document 06/19/19 11:35 MW [id number] 06/19/19 11:42 MW 06/19/19 11:35 Wound Center Nurse 2 #14- R HEEL -Time 11:35 -Correct Patient Yes -Correct Side, Site, Position Yes -Correct Procedure Yes -Procedure Performed No -Wound/Ulcer Outcome Not Healed -Ulcer Cleansing Not Cleansed -Foul Odor after Cleansing No -Bleeding Controlled with NA -Other theraskin intact, left in place -Offloading No -Treatment Response Procedure Tolerated Well Pain Scale: 0-10 Numeric Is Patient Pain Free? 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 Diabetes mellitus - uncontrolled. Peripheral vascular disease - status post revascularization 08/07/18 Plan: Gibson's ulcer was evaluated and debrided today. Theraskin intact and adherent to ulcer. Covered with wound veil and secured with steri-strips. Covered with gauze and an ABD nurse hat to his heel. He will continue to use the surgical shoe for offloading. Tramadol 50 mg #56 were prescribed for treatment of pain with debridements on 06/12/19 as well as a prescription of oxycodone 5 mg #28. OARRS was appropriate. No signs of diversion or abuse. Encouraged to call with any increase in pain or drainage, fever or chills. F/U in 1 week.
--- NOTE | 2019-06-26 15:37 | PN.PCM_ITS ---
(1) Type 2 diabetes, uncontrolled, with ulcer of heel Status: Chronic Current Visit: Yes Code(s): E11.621 - Type 2 diabetes mellitus with foot ulcer; E11.65 - Type 2 diabetes mellitus with hyperglycemia; L97.409 - Non-pressure chronic ulcer of unspecified heel and midfoot with unspecified severity Comment: right plantar heel (2) PAD (peripheral artery disease) Status: Chronic Current Visit: Yes Code(s): I73.9 - Peripheral vascular disease, unspecified (3) Non-healing open wound of heel Status: Chronic Current Visit: Yes Qualifiers: Encounter type: subsequent encounter Laterality: right Qualified Code(s): S91.301D - Unspecified open wound, right foot, subsequent encounter Code(s): S91.309A - Unspecified open wound, unspecified foot, initial encounter (4) Type II diabetes mellitus Status: Chronic Current Visit: Yes Qualifiers: Diabetes mellitus 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 He was recently treated for this same area with Theraskin application and was discharged approximately 8 weeks ago. He has noticed increased pain in his heel for the last 2 weeks and last his noted that the area had opened after his travel sales consultant had debrided some callus from the area. He has been applying Aquacel and gauze to the ulcer. He does follow with Dr. Navas regularly and had a bypass of his right SFA and popliteal arteries earlier this year. He has had procedures for his arterial disease in past to both of his lower extremities. He has tried alternative treatments with supplements and chelation therapy in the past. He also has diabetes and recent A1C was 7.2% He does wear diabetic shoes. He has been undergoing chelation treatments by Dr. German in [place]. He denies fever, chills, erythema or heavy drainage. He reports significant pain and discomfort of his right heel and his entire right leg which no one can explain. In March 2019, he was hospitalized due to occlusion of his bypass graft in his right leg and Dr. Navas was able to open it 50%. He also has blockages in his left leg. Dr. Navas is unable to revascularize either leg at this time and he may ultimately require limb amputation if his vascular disease worsens. Progress of Wound: Gibson is here to follow up for nonhealing ulcer of his right heel. He continues to have significant pain but it has been a little less this week than it was. His states there is a moderate amount of drainage daily but there has been no leakage through his dressings. He tolerated Theraskin application to his ulcer but there was only minimal improvement. Denies fever, chills, erythema. - Physical Exam Vital Signs Temp Pulse Resp BP 98.2 F 80 16 148/78 H 06/19/19 10:57 06/19/19 10:57 06/19/19 10:57 06/19/19 10:57 General: Alert, Oriented x3, Cooperative, No apparent distress HEENT: Atraumatic, Normocephalic Oral: Moist Mucosa Extremities: Capillary Refill Less than 3 Seconds, Edema Skin: Ulcer/ Wound Wound Measurements and Assessment WC - Nurse 2 - General Ulcer CM Notes Start: 06/19/19 10:57 Freq: Status: Active Protocol: Activity Type Activity Date Activity User E-Sign Co-Sign Detail Recorded Client Recorded Date Recorded By Document 06/26/19 12:13 MW [id number] 06/26/19 12:23 MW 06/26/19 12:13 Wound Center Nurse 2 [Procedure/Treatment] #14- R HEEL -Time 12:15 -Correct Patient Yes -Correct Side, Site, Position Yes -Correct Procedure Yes -Procedure Performed Yes -Type of Procedure Debridement -Clinical Debridement Subcutaneous -Post Debridement Size (cm) - Length 0.7 -Post Debridement Size (cm) - Width 0.7 -Post Debridement Size (cm) - Depth 0.2 -Total Square Cm 0.49 -Wound/Ulcer Outcome Not Healed -Ulcer Cleansing Rinsed/ Irrigated with Saline -Foul Odor after Cleansing No -Bioengineered Tissue No -Injectable Lidocaine (%) 2 -Lidocaine (ml) 5 -Bleeding Controlled with Pressure -Offloading No -Treatment Response Procedure Tolerated Well [See Physician Procedure note for Specifics] Pain Scale: 0-10 Numeric [Pain] -Is Patient Pain Free? Yes Psych/Mental Status: Normal Affect, Appropriate Debridement Note Post-Debridement Measurements/Treatment WC - Nurse 2 - General Ulcer CM Notes Start: 06/19/19 10:57 Freq: Status: Active Protocol: Activity Type Activity Date Activity User E-Sign Co-Sign Detail Recorded Client Recorded Date Recorded By Document 06/19/19 11:35 MW [id number] 06/19/19 11:42 MW Document 06/26/19 12:13 MW [id number] 06/26/19 12:23 MW 06/19/19 06/26/19 11:35 12:13 Wound Center Nurse 2 #14- R HEEL -Time 11:35 12:15 -Correct Patient Yes Yes -Correct Side, Site, Position Yes Yes -Correct Procedure Yes Yes -Procedure Performed No Yes -Type of Procedure Debridement -Clinical Debridement Subcutaneous -Post Debridement Size (cm) - Length 0.7 -Post Debridement Size (cm) - Width 0.7 -Post Debridement Size (cm) - Depth 0.2 -Total Square Cm 0.49 -Wound/Ulcer Outcome Not Healed Not Healed -Ulcer Cleansing Not Cleansed Rinsed/ Irrigated with Saline -Foul Odor after Cleansing No No -Bioengineered Tissue No -Injectable Lidocaine (%) 2 -Lidocaine (ml) 5 -Bleeding Controlled with NA Pressure -Other theraskin intact, left in place -Offloading No No -Treatment Response Procedure Procedure Tolerated Well Tolerated Well Pain Scale: 0-10 Numeric Is Patient Pain Free? Yes Yes Wound debrided: right heel Laterality: Right Wound Grade/Stage: Valdez grade 3 Type of Debridement: Excisional debridement Anesthesia Used: 4% Lidocaine Solution, 5% Lidocaine Gel, Cetacaine - 5 ml 2% lidocaine injected with 25 G needle to ulcer Depth: Down to and including healthy tissue, in the subcutaneous layer Percentage of wound debrided: 100 Instrument Used: 5mm curette Tissue Removed: yellow slough, devitalized tissue Severity: Fat Layer Exposed Amount of bleeding with debridement: Mild Bleeding Controlled with: Compression and gauze Patient tolerated procedure well Assessment/Plan Active Problems Type 2 diabetes, uncontrolled, with ulcer of heel (Chronic) right plantar heel PAD (peripheral artery disease) (Chronic) Non-healing open wound of heel (Chronic) Type II diabetes mellitus (Chronic) Assessment: 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 Diabetes mellitus - uncontrolled. Peripheral vascular disease - status post revascularization 08/07/18 Plan: Gibson's ulcer was evaluated and debrided today. Theraskin residual debrided. Will treat with Promogran with changes daily. Covered with gauze and an ABD nurse hat to his heel. He will continue to use the surgical shoe for offloading. Plan to apply Theraskin #2 next week. Tramadol 50 mg #56 were prescribed for treatment of pain with debridements on 06/26/2019. OARRS was appropriate. No signs of diversion or abuse. Encouraged to call with any increase in pain or drainage, fever or chills. F/U in 1 week.
[2019-07-03 13:29] VITALS: BP 154/79; PULSE 75; RESP 16; TEMP 36.1; BMI 24.9
--- NOTE | 2019-07-03 18:06 | PN.PCM_ITS ---
(1) Type 2 diabetes, uncontrolled, with ulcer of heel Status: Chronic Current Visit: Yes Code(s): E11.621 - Type 2 diabetes mellitus with foot ulcer; E11.65 - Type 2 diabetes mellitus with hyperglycemia; L97.409 - Non-pressure chronic ulcer of unspecified heel and midfoot with unspecified severity Comment: right plantar heel (2) PAD (peripheral artery disease) Status: Chronic Current Visit: Yes Code(s): I73.9 - Peripheral vascular disease, unspecified (3) Non-healing open wound of heel Status: Chronic Current Visit: Yes Qualifiers: Encounter type: subsequent encounter Laterality: right Qualified Code(s): S91.301D - Unspecified open wound, right foot, subsequent encounter Code(s): S91.309A - Unspecified open wound, unspecified foot, initial encounter (4) Type II diabetes mellitus Status: Chronic Current Visit: Yes Qualifiers: Diabetes mellitus senior care insulin use: unspecified intermediate designer insulin use status Diabetes mellitus complication status: with skin complications Diabetes mellitus complication detail: with foot ulcer Qualified Code(s): E11.621 - Type 2 diabetes mellitus with foot ulcer; L97.509 - Non-pressure chronic ulcer of other part of unspecified foot with unspecified severity Code(s): E11.9 - Type 2 diabetes mellitus without complications Type of Wound Date of Service: 07/03/19 Chief Complaint: Nonhealing ulcer right heel History of Wound: Gibson is here for evaluation of an ulcer of his right heel. He was recently treated for this same area with Theraskin application and was discharged approximately 8 weeks ago. He has noticed increased pain in his heel for the last 2 weeks and last his noted that the area had opened after his dispute resolution specialist had debrided some callus from the area. He has been applying Aquacel and gauze to the ulcer. He does follow with Dr. Navas regularly and had a bypass of his right SFA and popliteal arteries earlier this year. He has had procedures for his arterial disease in past to both of his lower extremities. He has tried alternative treatments with supplements and chelation therapy in the past. He also has diabetes and recent A1C was 7.2% He does wear diabetic shoes. He has been undergoing chelation treatments by Dr. German in [place]. He denies fever, chills, erythema or heavy drainage. He reports significant pain and discomfort of his right heel and his entire right leg which no one can explain. In March 2019, he was hospitalized due to occlusion of his bypass graft in his right leg and Dr. Navas was able to open it 50%. He also has blockages in his left leg. Dr. Navas is unable to revascularize either leg at this time and he may ultimately require limb amputation if his vascular disease worsens. Progress of Wound: Gibson is here to follow up for nonhealing ulcer of his right heel. He continues to have significant pain in his right heel and has started to have pain in his left heel. His states there is a moderate amount of drainage daily but there has been no leakage through his dressings. Denies fever, chills, erythema. - Physical Exam Vital Signs Temp Pulse Resp BP 96.9 F L 75 16 154/79 H 07/03/19 13:29 07/03/19 13:29 07/03/19 13:29 07/03/19 13:29 General: Alert, Oriented x3, Cooperative, No apparent distress HEENT: Atraumatic, Normocephalic Oral: Moist Mucosa Extremities: Edema Skin: Ulcer/ Wound Wound Measurements and Assessment WC - Nurse 1 - General Ulcer Measurement Start: 06/19/19 10:57 Freq: Status: Active Protocol: Activity Type Activity Date Activity User E-Sign Co-Sign Detail Recorded Client Recorded Date Recorded By Document 07/03/19 13:29 MW [id number] 07/03/19 13:38 MW 07/03/19 13:29 Wound Center Nurse 1 [Ulcer Assessment] #14- R HEEL -Combined with other wound No -Current Size (cm) - Length 0.6 -Current Size (cm) - Width 0.7 -Current Size (cm) - Depth 0.1 -Total Square Cm 0.42 -Photo Taken No -Epithelialization None Present -Tunneling No -Undermining/Tunneling No -Circular Undermining No -Exudate Amt Small -Exudate Type Serosanguineous -Wound Margin Flat & Intact -Granulation Amt None Present (0 %) -Granulation Quality N/A -Slough/Fibrin Yes -Necrosis Amt Large (67-100%) -Necrotic Tissue Type Adherent Slough -Structure Exposed N/A -Texture (Shahana-wound Skin Appearance) No Abnormality, Assessed -Moisture (Shahana-wound Skin Appearance No Abnormality, ) Assessed -Color (Shahana-wound Skin Appearance) No Abnormality, Assessed -Temperature (Shahana-wound Skin No Abnormality Appearance) (Pt Warm) -Tenderness on Palpation (Shahana-wound Yes Skin Appearance) -Ulcer Cleansing soap and water -Foul Odor after Cleansing No -Anesthetic Used 5% Lidocaine Gel [Edema Assessment] -Lower Limb Edema Present No -Right Calf (cm) 26.5 -Right Ankle (cm) 18.0 WC - Nurse 2 - General Ulcer CM Notes Start: 06/19/19 10:57 Freq: Status: Active Protocol: Activity Type Activity Date Activity User E-Sign Co-Sign Detail Recorded Client Recorded Date Recorded By Document 07/03/19 13:51 DV [id number] 07/03/19 14:11 DV 07/03/19 13:51 Wound Center Nurse 2 [Procedure/Treatment] #14- R HEEL -Time 13:52 -Correct Patient Yes -Correct Side, Site, Position Yes -Correct Procedure Yes -Procedure Performed Yes -Type of Procedure Debridement -Clinical Debridement Subcutaneous -Post Debridement Size (cm) - Length 0.8 -Post Debridement Size (cm) - Width 0.8 -Post Debridement Size (cm) - Depth 0.2 -Total Square Cm 0.64 -Wound/Ulcer Outcome Failed Flap -Ulcer Cleansing Rinsed/ Irrigated with Saline -Foul Odor after Cleansing No -Bioengineered Tissue Yes -Type of bioengineered Tissue THERASKIN -Expiration Date 12/29/23 -Product Lot Number [id number] -Percent Used 100 -Injectable Lidocaine (%) 5 -Lidocaine (ml) 5 -Bleeding Controlled with Pressure -Offloading Yes -Type of Offloading Camwalker -Treatment Response Procedure Tolerated Well [See Physician Procedure note for Specifics] Pain Scale: 0-10 Numeric [Pain] -Is Patient Pain Free? Yes Psych/Mental Status: Normal Affect, Appropriate Debridement Note Post-Debridement Measurements/Treatment ITALO - Nurse 2 - General Ulcer CM Notes Start: 06/19/19 10:57 Freq: Status: Active Protocol: Activity Type Activity Date Activity User E-Sign Co-Sign Detail Recorded Client Recorded Date Recorded By Document 06/19/19 11:35 MW [id number] 06/19/19 11:42 MW Document 06/26/19 12:13 MW [id number] 06/26/19 12:23 MW Document 07/03/19 13:51 DV [id number] 07/03/19 14:11 DV 06/19/19 06/26/19 07/03/19 11:35 12:13 13:51 Wound Center Nurse 2 #14- R HEEL -Time 11:35 12:15 13:52 -Correct Patient Yes Yes Yes -Correct Side, Site, Position Yes Yes Yes -Correct Procedure Yes Yes Yes -Procedure Performed No Yes Yes -Type of Procedure Debridement Debridement -Clinical Debridement Subcutaneous Subcutaneous -Post Debridement Size (cm) - Length 0.7 0.8 -Post Debridement Size (cm) - Width 0.7 0.8 -Post Debridement Size (cm) - Depth 0.2 0.2 -Total Square Cm 0.49 0.64 -Wound/Ulcer Outcome Not Healed Not Healed Failed Flap -Ulcer Cleansing Not Cleansed Rinsed/ Rinsed/ Irrigated with Irrigated with Saline Saline -Foul Odor after Cleansing No No No -Bioengineered Tissue No Yes -Type of bioengineered Tissue THERASKIN -Expiration Date 12/29/23 -Product Lot Number [id number] -Percent Used 100 -Injectable Lidocaine (%) 2 5 -Lidocaine (ml) 5 5 -Bleeding Controlled with NA Pressure Pressure -Other theraskin intact, left in place -Offloading No No Yes -Type of Offloading Camwalker -Treatment Response Procedure Procedure Procedure Tolerated Well Tolerated Well Tolerated Well Pain Scale: 0-10 Numeric Is Patient Pain Free? Yes Yes Yes Wound debrided: right heel Laterality: Right Type of Debridement: Excisional debridement Anesthesia Used: 4% Lidocaine Solution, 5% Lidocaine Gel, Cetacaine - 5 cc 2% lidocaine Depth: Down to and including healthy tissue, in the subcutaneous layer Percentage of wound debrided: 100 Instrument Used: 5mm curette Tissue Removed: yellow slough, devitalized tissue Severity: Fat Layer Exposed Amount of bleeding with debridement: Mild Bleeding Controlled with: Compression and gauze Patient tolerated procedure well Assessment/Plan Active Problems Type 2 diabetes, uncontrolled, with ulcer of heel (Chronic) right plantar heel PAD (peripheral artery disease) (Chronic) Non-healing open wound of heel (Chronic) Type II diabetes mellitus (Chronic) Assessment: 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 Diabetes mellitus - uncontrolled. Peripheral vascular disease - status post revascularization 08/07/18 Plan: Gibson's ulcer was evaluated and debrided today. Theraskin #2 applied to his ulcer per pneumatic hoist operator guidelines using 40% of the product to the heel ulcer and secured with dermabond and then wound veil used to cover the ulcer and secured with steri-strips. Ulcer then covered with gauze and an ABD nurse hat to his heel. He will continue to use the surgical shoe for offloading. His surgical shoe was padded again and the heel of his left shoe brace was also padded for offloading of his left heel. Tramadol 50 mg #56 were prescribed for treatment of pain with debridements on 06/26/2019. OARRS was appropriate. No signs of diversion or abuse. Encouraged to call with any increase in pain or drainage, fever or chills. F/U in 1 week.
[2019-07-10 13:48] VITALS: BP 133/77; PULSE 97; RESP 20; TEMP 36.5; BMI 24.9
--- NOTE | 2019-07-10 15:00 | RAD_ITS ---
STUDY: X-RAY - RIGHT FOOT CLINICAL: Male, 69 years old. heel ulcer TECHNIQUE: 3 view(s) of the foot. COMPARISON: 06/27/2018 FINDINGS: Normal talus, calcaneus, and tarsal bones. Normal visualized subtalar, talonavicular, calcaneocuboid, tarsal and tarsometatarsal articulations. Normal metatarsi. There is degenerative arthrosis of the metatarsophalangeal joint of the hallux . Normal tibial and fibular sesamoid bones. There is degenerative arthrosis of the interphalangeal joint of the great toe. Normal phalanges of the great toe. Moderate arthrosis the second metatarsophalangeal joint. Normal interphalangeal joints and phalanges of the lesser toes. The soft tissue structures are unremarkable. RAD/Foot min 3 Views IMPRESSION: No change from 06/27/2018. Electronically Signed: Ramon Charles MD at 17:09 EST Tel , Service support ,
--- NOTE | 2019-07-10 15:00 | RAD_ITS ---
STUDY: X-RAY - RIGHT ANKLE REASON FOR EXAM: Male, 69 years old. Heel ulcer TECHNIQUE: 3 view(s) of the ankle. COMPARISON: 06/27/2018. FINDINGS: There is no evidence of fracture or dislocation. There are mild degenerative changes. There are no definite radiographic findings of osteomyelitis. There are surgical clips noted in the soft tissues. There are no radiodense foreign bodies. RAD/Ankle min 3 Views IMPRESSION: No fracture or dislocation in the right ankle. Mild degenerative change. No definite radiographic findings of osteomyelitis in the right ankle. Electronically Signed: Hector Wright, at 15:54 EST Tel , Service support ,
--- NOTE | 2019-07-10 17:20 | PCM.WC.PN ---
(1) Type 2 diabetes, uncontrolled, with ulcer of heel Status: Chronic Current Visit: Yes Code(s): E11.621 - Type 2 diabetes mellitus with foot ulcer; E11.65 - Type 2 diabetes mellitus with hyperglycemia; L97.409 - Non-pressure chronic ulcer of unspecified heel and midfoot with unspecified severity Comment: right plantar heel (2) PAD (peripheral artery disease) Status: Chronic Current Visit: Yes Code(s): I73.9 - Peripheral vascular disease, unspecified (3) Non-healing open wound of heel Status: Chronic Current Visit: Yes Qualifiers: Encounter type: subsequent encounter Laterality: right Qualified Code(s): S91.301D - Unspecified open wound, right foot, subsequent encounter Code(s): S91.309A - Unspecified open wound, unspecified foot, initial encounter (4) Type II diabetes mellitus Status: Chronic Current Visit: Yes Qualifiers: Diabetes mellitus half-way insulin use: unspecified 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 He was recently treated for this same area with Theraskin application and was discharged approximately 8 weeks ago. He has noticed increased pain in his heel for the last 2 weeks and last his noted that the area had opened after his lead accountant had debrided some callus from the area. He has been applying Aquacel and gauze to the ulcer. He does follow with Dr. Navas regularly and had a bypass of his right SFA and popliteal arteries earlier this year. He has had procedures for his arterial disease in past to both of his lower extremities. He has tried alternative treatments with supplements and chelation therapy in the past. He also has diabetes and recent A1C was 7.2% He does wear diabetic shoes. He has been undergoing chelation treatments by Dr. German in [place]. He denies fever, chills, erythema or heavy drainage. He reports significant pain and discomfort of his right heel and his entire right leg which no one can explain. In March 2019, he was hospitalized due to occlusion of his bypass graft in his right leg and Dr. Navas was able to open it 50%. He also has blockages in his left leg. Dr. Navas is unable to revascularize either leg at this time and he may ultimately require limb amputation if his vascular disease worsens. Progress of Wound: Gibson is here to follow up for nonhealing ulcer of his right heel. He continues to have significant pain in his right heel. It was really severe this week. He had Theraskin #2 placed last week but is does not seem to be incorporated well, although it is still intact. His states there is a moderate amount of drainage daily but there has been no leakage through his dressings. Denies fever, chills, erythema. - Physical Exam Vital Signs Temp Pulse Resp BP 97.7 F L 97 20 H 133/77 H 07/10/19 13:48 07/10/19 13:48 07/10/19 13:48 07/10/19 13:48 General: Alert, Oriented x3, Cooperative, No apparent distress HEENT: Atraumatic, Normocephalic Oral: Moist Mucosa Extremities: Diminished Peripheral Pulses, Edema Skin: Ulcer/ Wound Wound Measurements and Assessment WC - Nurse 1 - General Ulcer Measurement Start: 06/19/19 10:57 Freq: Status: Active Protocol: Activity Type Activity Date Activity User E-Sign Co-Sign Detail Recorded Client Recorded Date Recorded By Document 07/10/19 13:48 DL [id number] 07/10/19 13:54 DL 07/10/19 13:48 Wound Center Nurse 1 [Ulcer Assessment] #14- R HEEL -Current Size (cm) - Length 0.1 -Current Size (cm) - Width 0.1 -Current Size (cm) - Depth 0.1 -Total Square Cm 0.01 -Photo Taken No -Exudate Amt Small -Exudate Type Serous -Wound Margin Distinct, Outline Attached -Texture (Shahana-wound Skin Appearance) No Abnormality -Moisture (Shahana-wound Skin Appearance Dry/Scaly ) -Color (Shahana-wound Skin Appearance) No Abnormality -Temperature (Shahana-wound Skin No Abnormality Appearance) (Pt Warm) -Tenderness on Palpation (Shahana-wound No Skin Appearance) -Foul Odor after Cleansing No WC - Nurse 2 - General Ulcer CM Notes Start: 06/19/19 10:57 Freq: Status: Active Protocol: Activity Type Activity Date Activity User E-Sign Co-Sign Detail Recorded Client Recorded Date Recorded By Document 07/10/19 14:04 MW [id number] 07/10/19 14:31 MW 07/10/19 14:04 Wound Center Nurse 2 [Procedure/Treatment] -Time 14:07 -Correct Patient Yes -Correct Side, Site, Position Yes -Correct Procedure Yes -Procedure Performed No -Wound/Ulcer Outcome Not Healed -Ulcer Cleansing Not Cleansed -Foul Odor after Cleansing No -Injectable Lidocaine (%) 2 -Lidocaine (ml) 3 -Bleeding Controlled with NA -Other theraskin intact -Offloading Yes -Type of Offloading Surgical Shoe -Treatment Response Procedure Tolerated Well [See Physician Procedure note for Specifics] Psych/Mental Status: Normal Affect, Appropriate Debridement Note Post-Debridement Measurements/Treatment WC - Nurse 2 - General Ulcer CM Notes Start: 06/19/19 10:57 Freq: Status: Active Protocol: Activity Type Activity Date Activity User E-Sign Co-Sign Detail Recorded Client Recorded Date Recorded By Document 06/19/19 11:35 MW [id number] 06/19/19 11:42 MW Document 06/26/19 12:13 MW [id number] 06/26/19 12:23 MW Document 07/03/19 13:51 DV [id number] 07/03/19 14:11 DV Document 07/10/19 14:04 MW [id number] 07/10/19 14:31 MW 06/19/19 06/26/19 07/03/19 11:35 12:13 13:51 Wound Center Nurse 2 #14- R HEEL -Time 11:35 12:15 13:52 -Correct Patient Yes Yes Yes -Correct Side, Site, Position Yes Yes Yes -Correct Procedure Yes Yes Yes -Procedure Performed No Yes Yes -Type of Procedure Debridement Debridement -Clinical Debridement Subcutaneous Subcutaneous -Post Debridement Size (cm) - Length 0.7 0.8 -Post Debridement Size (cm) - Width 0.7 0.8 -Post Debridement Size (cm) - Depth 0.2 0.2 -Total Square Cm 0.49 0.64 -Wound/Ulcer Outcome Not Healed Not Healed Failed Flap -Ulcer Cleansing Not Cleansed Rinsed/ Rinsed/ Irrigated with Irrigated with Saline Saline -Foul Odor after Cleansing No No No -Bioengineered Tissue No Yes -Type of bioengineered Tissue THERASKIN -Expiration Date 12/29/23 -Product Lot Number [id number] -Percent Used 100 -Injectable Lidocaine (%) 2 5 -Lidocaine (ml) 5 5 -Bleeding Controlled with NA Pressure Pressure -Other theraskin intact, left in place -Offloading No No Yes -Type of Offloading Camwalker -Treatment Response Procedure Procedure Procedure Tolerated Well Tolerated Well Tolerated Well Pain Scale: 0-10 Numeric Is Patient Pain Free? Yes Yes Yes 07/10/19 14:04 Wound Center Nurse 2 #14- R HEEL -Time 14:07 -Correct Patient Yes -Correct Side, Site, Position Yes -Correct Procedure Yes -Procedure Performed No -Type of Procedure -Clinical Debridement -Post Debridement Size (cm) - Length -Post Debridement Size (cm) - Width -Post Debridement Size (cm) - Depth -Total Square Cm -Wound/Ulcer Outcome Not Healed -Ulcer Cleansing Not Cleansed -Foul Odor after Cleansing No -Bioengineered Tissue -Type of bioengineered Tissue -Expiration Date -Product Lot Number -Percent Used -Injectable Lidocaine (%) 2 -Lidocaine (ml) 3 -Bleeding Controlled with NA -Other theraskin intact -Offloading Yes -Type of Offloading Surgical Shoe -Treatment Response Procedure Tolerated Well Pain Scale: 0-10 Numeric Is Patient Pain Free? 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 Diabetes mellitus - uncontrolled. Peripheral vascular disease - status post revascularization 08/07/18 Plan: Nicol ulcer was evaluated and debrided today. Theraskin #2 applied last week and a 5/8 25 G needle was used to agitate his ulcer per senior accounting clerk guidelines then wound veil used to cover the ulcer and secured with steri-strips. Ulcer then covered with gauze and an ABD nurse hat to his heel. He will continue to use the surgical shoe for offloading. He was given an xray order to evaluate for possible osteomyelitis of his foot. Tramadol 50 mg #84 and Oxycodone 5 mg #45 were prescribed for treatment of pain with debridements on 07/10/2019. OARRS was appropriate. No signs of diversion or abuse. Encouraged to call with any increase in pain or drainage, fever or chills. F/U in 1 week.
[2019-07-17 13:25] VITALS: BP 142/77; PULSE 79; RESP 16; TEMP 36.3; BMI 24.9
[2019-07-17 17:56] LABS: M R Staph aureus DNA By PCR Negative (Negative); Probe Check PASS; Staph aureus DNA By PCR NEGATIVE (Negative)
--- NOTE | 2019-07-17 19:38 | PCM.WC.PN ---
(1) Type 2 diabetes, uncontrolled, with ulcer of heel Status: Chronic Current Visit: Yes Code(s): E11.621 - Type 2 diabetes mellitus with foot ulcer; E11.65 - Type 2 diabetes mellitus with hyperglycemia; L97.409 - Non-pressure chronic ulcer of unspecified heel and midfoot with unspecified severity Comment: right plantar heel (2) PAD (peripheral artery disease) Status: Chronic Current Visit: Yes Code(s): I73.9 - Peripheral vascular disease, unspecified (3) Non-healing open wound of heel Status: Chronic Current Visit: Yes Qualifiers: Encounter type: subsequent encounter Laterality: right Qualified Code(s): S91.301D - Unspecified open wound, right foot, subsequent encounter Code(s): S91.309A - Unspecified open wound, unspecified foot, initial encounter (4) Type II diabetes mellitus Status: Chronic Current Visit: Yes Qualifiers: Diabetes mellitus retirement insulin use: unspecified 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 He was recently treated for this same area with Theraskin application and was discharged approximately 8 weeks ago. He has noticed increased pain in his heel for the last 2 weeks and last his noted that the area had opened after his sas architect had debrided some callus from the area. He has been applying Aquacel and gauze to the ulcer. He does follow with Dr. Navas regularly and had a bypass of his right SFA and popliteal arteries earlier this year. He has had procedures for his arterial disease in past to both of his lower extremities. He has tried alternative treatments with supplements and chelation therapy in the past. He also has diabetes and recent A1C was 7.2% He does wear diabetic shoes. He has been undergoing chelation treatments by Dr. German in [place]. He denies fever, chills, erythema or heavy drainage. He reports significant pain and discomfort of his right heel and his entire right leg which no one can explain. In March 2019, he was hospitalized due to occlusion of his bypass graft in his right leg and Dr. Navas was able to open it 50%. He also has blockages in his left leg. Dr. Navas is unable to revascularize either leg at this time and he may ultimately require limb amputation if his vascular disease worsens. Progress of Wound: Gibson is here to follow up for nonhealing ulcer of his right heel. He continues to have significant pain in his right heel. It was better this week. Xrays did not show osteomyelitis or heel spur or other cause for his pain. Theraskin removed today and there has not been much improvement. His states there is a moderate amount of drainage daily but there has been no leakage through his dressings. Denies fever, chills, erythema. - Physical Exam Vital Signs Temp Pulse Resp BP 97.4 F L 79 16 142/77 H 07/17/19 13:25 07/17/19 13:25 07/17/19 13:25 07/17/19 13:25 General: Alert, Oriented x3, Cooperative, No apparent distress HEENT: Atraumatic, Normocephalic Oral: Moist Mucosa Extremities: Edema Skin: Ulcer/ Wound Wound Measurements and Assessment WC - Nurse 1 - General Ulcer Measurement Start: 06/19/19 10:57 Freq: Status: Active Protocol: Activity Type Activity Date Activity User E-Sign Co-Sign Detail Recorded Client Recorded Date Recorded By Document 07/17/19 13:25 MW [id number] 07/17/19 13:32 MW 07/17/19 13:25 Wound Center Nurse 1 [Ulcer Assessment] #14- R HEEL -Combined with other wound No -Current Size (cm) - Length 0.1 -Current Size (cm) - Width 0.1 -Current Size (cm) - Depth 0.1 -Total Square Cm 0.01 -Photo Taken No -Epithelialization None Present -Tunneling No -Undermining/Tunneling No -Circular Undermining No -Exudate Amt Small -Exudate Type Serosanguineous -Wound Margin Distinct, Outline Attached -Granulation Amt None Present (0 %) -Slough/Fibrin Yes -Necrosis Amt Large (67-100%) -Necrotic Tissue Type Adherent Slough -Texture (Shahana-wound Skin Appearance) Assessed, Scarring -Moisture (Shahana-wound Skin Appearance Assessed ) -Color (Shahana-wound Skin Appearance) Assessed -Temperature (Shahana-wound Skin No Abnormality Appearance) (Pt Warm) -Tenderness on Palpation (Shahana-wound Yes Skin Appearance) -Ulcer Cleansing Rinsed/ Irrigated with Saline -Foul Odor after Cleansing No -Anesthetic Used 5% Lidocaine Gel [Edema Assessment] -Lower Limb Edema Present No WC - Nurse 2 - General Ulcer CM Notes Start: 06/19/19 10:57 Freq: Status: Active Protocol: Activity Type Activity Date Activity User E-Sign Co-Sign Detail Recorded Client Recorded Date Recorded By Document 07/17/19 14:59 DV [id number] 07/17/19 15:04 DV 07/17/19 14:59 Wound Center Nurse 2 [Procedure/Treatment] #14- R HEEL -Time 15:01 -Correct Patient Yes -Correct Side, Site, Position Yes -Correct Procedure Yes -Procedure Performed Yes -Type of Procedure Debridement -Clinical Debridement Subcutaneous -Post Debridement Size (cm) - Length 1.3 -Post Debridement Size (cm) - Width 1.0 -Post Debridement Size (cm) - Depth 0.3 -Total Square Cm 1.30 -Wound/Ulcer Outcome Not Healed -Ulcer Cleansing Rinsed/ Irrigated with Saline -Foul Odor after Cleansing No -Bioengineered Tissue No -Type of bioengineered Tissue THERASKIN -Expiration Date 09/22/23 -Product Lot Number [id number] -Percent Used 100 -Saline Lot Number [id number] -Injectable Lidocaine (%) 2 -Lidocaine (ml) 5 -Bleeding Controlled with Pressure -Offloading Yes -Treatment Response Procedure Not Tolerated Well [See Physician Procedure note for Specifics] Pain Scale: 0-10 Numeric [Pain] -Is Patient Pain Free? Yes Psych/Mental Status: Normal Affect, Appropriate Debridement Note Post-Debridement Measurements/Treatment WC - Nurse 2 - General Ulcer CM Notes Start: 06/19/19 10:57 Freq: Status: Active Protocol: Activity Type Activity Date Activity User E-Sign Co-Sign Detail Recorded Client Recorded Date Recorded By Document 06/19/19 11:35 MW [id number] 06/19/19 11:42 MW Document 06/26/19 12:13 MW [id number] 06/26/19 12:23 MW Document 07/03/19 13:51 DV [id number] 07/03/19 14:11 DV Document 07/10/19 14:04 MW [id number] 07/10/19 14:31 MW Document 07/17/19 14:59 DV [id number] 07/17/19 15:04 DV 06/19/19 06/26/19 07/03/19 11:35 12:13 13:51 Wound Center Nurse 2 #14- R HEEL -Time 11:35 12:15 13:52 -Correct Patient Yes Yes Yes -Correct Side, Site, Position Yes Yes Yes -Correct Procedure Yes Yes Yes -Procedure Performed No Yes Yes -Type of Procedure Debridement Debridement -Clinical Debridement Subcutaneous Subcutaneous -Post Debridement Size (cm) - Length 0.7 0.8 -Post Debridement Size (cm) - Width 0.7 0.8 -Post Debridement Size (cm) - Depth 0.2 0.2 -Total Square Cm 0.49 0.64 -Wound/Ulcer Outcome Not Healed Not Healed Failed Flap -Ulcer Cleansing Not Cleansed Rinsed/ Rinsed/ Irrigated with Irrigated with Saline Saline -Foul Odor after Cleansing No No No -Bioengineered Tissue No Yes -Type of bioengineered Tissue THERASKIN -Expiration Date 12/29/23 -Product Lot Number [id number] -Percent Used 100 -Saline Lot Number -Injectable Lidocaine (%) 2 5 -Lidocaine (ml) 5 5 -Bleeding Controlled with NA Pressure Pressure -Other theraskin intact, left in place -Offloading No No Yes -Type of Offloading Camwalker -Treatment Response Procedure Procedure Procedure Tolerated Well Tolerated Well Tolerated Well Pain Scale: 0-10 Numeric Is Patient Pain Free? Yes Yes Yes 07/10/19 07/17/19 14:04 14:59 Wound Center Nurse 2 #14- R HEEL -Time 14:07 15:01 -Correct Patient Yes Yes -Correct Side, Site, Position Yes Yes -Correct Procedure Yes Yes -Procedure Performed No Yes -Type of Procedure Debridement -Clinical Debridement Subcutaneous -Post Debridement Size (cm) - Length 1.3 -Post Debridement Size (cm) - Width 1.0 -Post Debridement Size (cm) - Depth 0.3 -Total Square Cm 1.30 -Wound/Ulcer Outcome Not Healed Not Healed -Ulcer Cleansing Not Cleansed Rinsed/ Irrigated with Saline -Foul Odor after Cleansing No No -Bioengineered Tissue No -Type of bioengineered Tissue THERASKIN -Expiration Date 09/22/23 -Product Lot Number [id number] -Percent Used 100 -Saline Lot Number [id number] -Injectable Lidocaine (%) 2 2 -Lidocaine (ml) 3 5 -Bleeding Controlled with NA Pressure -Other theraskin intact -Offloading Yes Yes -Type of Offloading Surgical Shoe -Treatment Response Procedure Procedure Not Tolerated Well Tolerated Well Pain Scale: 0-10 Numeric Is Patient Pain Free? Yes Wound debrided: right heel Laterality: Right Wound Grade/Stage: Valdez grade 2 Type of Debridement: Excisional debridement Anesthesia Used: 4% Lidocaine Solution, 5% Lidocaine Gel, Cetacaine - 5 ml 2% lidocaine Depth: Down to and including healthy tissue, in the subcutaneous layer, to muscle Percentage of wound debrided: 100 Instrument Used: 5mm curette, #15 blade, Forceps Tissue Removed: yellow slough and devitalized tissue Severity: Fat Layer Exposed Amount of bleeding with debridement: Mild Bleeding Controlled with: Compression and gauze Patient tolerated procedure well Assessment/Plan Clinical Impression(s) from Imaging Studies Ankle X-Ray 07/10/19 15:00 IMPRESSION: No fracture or dislocation in the right ankle. Mild degenerative change. No definite radiographic findings of osteomyelitis in the right ankle. Electronically Signed: Hector Wright at 15:54 EST Tel , Service support , Foot X-Ray 07/10/19 15:00 IMPRESSION: No change from 06/27/2018. 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 Diabetes mellitus - uncontrolled. Peripheral vascular disease - status post revascularization 08/07/18 Plan: Gibson's ulcer was evaluated and debrided today. Theraskin #3 applied this week per collection systems administrator guidelines then wound veil used to cover the ulcer and secured with steri-strips. Ulcer then covered with gauze and an ABD nurse hat to his heel. He will continue to use the surgical shoe for offloading. Wound culture taken to r/o infection. He would benefit from hyperbaric oxygen treatment to help heal his wound and salvage his limb from amputation given his comorbid arterial disease and DFU. Will perform hyperbaric consultation at next visit. Gathering data for clearance for HBO treatment to submit to insurance. Tramadol 50 mg #84 and Oxycodone 5 mg #45 were prescribed for treatment of pain with debridements on 07/10/2019. OARRS was appropriate. No signs of diversion or abuse. Encouraged to call with any increase in pain or drainage, fever or chills. F/U in 1 week.
== END 2019-07-17 23:59 ==
LOC: WC 15:40
PROVIDERS: Family Provider Family Medicine; PCP Family Medicine; Referring Provider Family Medicine; Visit Provider Family Medicine
DX: E11.621 Type 2 diabetes mellitus with foot ulcer (principal); E11.51 Type 2 diabetes mellitus with diabetic peripheral angiopathy without gangrene; E11.65 Type 2 diabetes mellitus with hyperglycemia; L97.412 Non-pressure chronic ulcer of right heel and midfoot with fat layer exposed
CPT/HCPCS: 11042; 15275; 73610; 73630; 87070; 87075; 87077; 87186; 87205; 87640; 99212; 99213; Q4121; G0463

== ENCOUNTER 2019-07-23 14:00 | Outpatient (RCR) | payer MEDICARE, OTHER, SELFPAY ==
[2019-06-19 10:57] VITALS: BMI 24.9
--- NOTE | 2019-06-24 14:50 | HP.PTEVAL ---
Patient's Visit Information TRAM RIVERA is a 69 year old M referred to Physical Therapy by RAOUL BRAVO with a diagnosis of ENCOUNTER FOR SUGICAL AFTERCARE FOLLOWING IN NEROUS SYYSTEM. Date of Evaluation: 06/24/19 Physical Therapist: Mayank Berger PT, Cert MDT, [facility] - Visit Plan Frequency: 2x /Week Duration: 4 Weeks - Subjective Findings: This 69 y/o male presents to physical therapy with s/p lumbar surgey. Patient has multiple comlexity issues with comorbities with multipe spine surgery 10 years ago from falling 1st and 2nd surgery lumbar disectomy/fusion ,s/p lumbar fusion revision 5years ago. Patient had revision 2weeks remove hardware in lumbar due to hardware broken done by DR Jesus Unger. Other comrbities with PVD with bypass femoral last year,h/o CVA,DM,open wound right foot,neuropathy. Patient had lumbar surgery at [facility] d/c after 2 days with fww. Pain is global back legs. Patient c/o parathesia/tingling .Patient uses post op shoe . Patient pain worse with walking,standing,difficulty to bend,lifting. Alleviating factots tramadol. Patient condtion affects ability to perform ADLS, and function. Patient condition affects QOL.Patient has h/o falling but no recent falls. Patient has constant pain .Patient intially transferred to SNF for Rehab then self d/c to home.Has AFO for drop foot. SOCIAL: . VOCATION: retired - Pain Bilateral Back Pain Intensity (Out of 10): 3 Pain Intensity Range: 10 Bilateral Lower Extremity Pain Intensity (Out of 10): 4 - Objective POSTURE: mod foward posture trunk flexed. GAIT: foward posture reciprocal pattern unsteady,with cane AFO left ,post op shoe right. ATROPHIED: atrophied legs. BALANCE: fair+ with cane. SKIN: inscion well approximate. NEURO: c/o parathesia/tingling ,light touch intact ,reflexes 1/3. MMT: quads/hams 3+/5,hip abd 3/5,hip flexion 3+/5,right ankle 4-/5,left ankle dorsiflexion 3/5. LUMBAR ROM: flexion mod loss,severe loss extension,side glides mod loss. FLEXABLITY: hams mod tight - Special Tests L/S Slump test left side: Negative L/S Slump test right side: Negative L/S Left Straight Leg Raise: Negative L/S Right Straight Leg Raise: Negative - Balance Scores CATSIB Score (Max score 120 seconds): 5 - Goals Goal 1:: Patient to be Indepndant with HEP. Goal Time Frame: 4-6 Weeks Goal 2:: Patient to improve qulaity of gait community distances with cane. Goal Time Frame: 4-6 Weeks Goal 3:: Patient increase strength BLE quads/hams 4-/5,hip flexion 3+/5 to improve gait for function. Goal Time Frame: 4-6 Weeks Goal 4:: Patient to improve lumbar owestry score by 5 points or > to improve function and QOL. Goal Time Frame: 4-6 Weeks Goal 5:: Patient to improve ability to perform ADL'S ,housework tasks with min limiations Goal Time Frame: 4-6 Weeks - Rehabilitation Potential Physical Therapy Diagnosis: This patient has multiple complexity issue with recent lumbar surgery to remove hardware along with other comobities influences patient condition along with pain ,weakness ,poor lumbar ROM ,balance and gait deficits impairs ADL'S thus beifit from skilled PT. Rehabilitation Potential: Good - Anticipated Interventions Patient/Client Instruction: Educate patient on: Condition, Plan of Care For the Purpose of:: To decrease pain, To increase ROM, To improve muscle performance and motor function, To improve ability to perform ADL's, To increase tolerance to activity/condition/position, To improve performance and independence with ADL's, To improve ability of physical actions for home/community/work/leisure, To improve health of tissue, To improve endurance, To improve balance, To improve ability to perform tasks related to life management Therapeutic Exercise to Include: Strength training, Postural training, Flexibilty training, Gait and locomotor training, Dynamic Lumbar Stabilization Comment: BLE For the Purpose of:: To decrease pain, To increase ROM, To improve muscle performance and motor function, To improve ability to perform ADL's, To increase tolerance to activity/condition/position, To improve ability of physical actions for home/community/work/leisure, To improve gait and locomotor functions, To improve health of tissue, To decrease soft tissue restriction, To reduce risk of recurrence, To improve ability to perform tasks related to life management TENS: Yes IF ES: Yes Cryotherapy (ice pack, ice massage): Yes Thermo therapy (hot pack): Yes Ultrasound (thermal/non thermal): Yes For the Purpose of:: To decrease pain, To improve health of tissue, To decrease soft tissue restriction Thank you for the opportunity to evaluate your patient. For Medicare and Medicare HMO plans, please review the plan of care and approve it. It will need to be FAXED BACK to us at [phone] for Medicare purposes. For Medicare only, by signing this I certify the plan of care. Please let me know if there are questions or concerns regarding this plan of care. Physician Signature: Date:
--- NOTE | 2019-06-25 14:07 | HP.PTEVAL ---
Patient's Visit Information TRAM RIVERA is a 69 year old M referred to Physical Therapy by RAOUL BRAVO with a diagnosis of ENCOUNTER FOR SUGICAL AFTERCARE FOLLOWING IN NEROUS SYYSTEM. Date of Evaluation: 06/24/19 Physical Therapist: Mayank Berger, PT, Cert MDT, [facility] - Visit Plan Frequency: 2x /Week Duration: 4 Weeks Plan: S/P LUMBAR SURGERY TO REMOVE HARDWARE. PATIENT HAS MULTIPLE COMORBITIES STATED ABOVE. PT INTERVENTIONS WITH POSTURAL EX'S,DLS ,LE FLEXABLITY AND STRENGTHENING,BALANCE/GAIT PROGRAM,MODALTIES NEEDED - Subjective Findings: This 69 y/o male presents to physical therapy with s/p lumbar surgey. Patient has multiple comlexity issues with comorbities with multipe spine surgery 10 years ago from falling 1st and 2nd surgery lumbar disectomy/fusion ,s/p lumbar fusion revision 5years ago. Patient had revision 2weeks remove hardware in lumbar due to hardware broken done by DR Jesus Unger. Other comrbities with PVD with bypass femoral last year,h/o CVA,DM,open wound right foot,neuropathy. Patient had lumbar surgery at [facility] d/c after 2 days with fww. Pain is global back legs. Patient c/o parathesia/tingling .Patient uses post op shoe . Patient pain worse with walking,standing,difficulty to bend,lifting. Alleviating factots tramadol. Patient condtion affects ability to perform ADLS, and function. Patient condition affects QOL.Patient has h/o falling but no recent falls. Patient has constant pain .Patient intially transferred to SNF for Rehab then self d/c to home.Has AFO for drop foot. SOCIAL: . VOCATION: retired - Pain Bilateral Back Pain Intensity (Out of 10): 3 Pain Intensity Range: 10 Bilateral Lower Extremity Pain Intensity (Out of 10): 4 - Objective POSTURE: mod foward posture trunk flexed. GAIT: foward posture reciprocal pattern unsteady,with cane AFO left ,post op shoe right. ATROPHIED: atrophied legs. BALANCE: fair+ with cane. SKIN: inscion well approximate. NEURO: c/o parathesia/tingling ,light touch intact ,reflexes 1/3. MMT: quads/hams 3+/5,hip abd 3/5,hip flexion 3+/5,right ankle 4-/5,left ankle dorsiflexion 3/5. LUMBAR ROM: flexion mod loss,severe loss extension,side glides mod loss. FLEXABLITY: hams mod tight - Special Tests L/S Slump test left side: Negative L/S Slump test right side: Negative L/S Left Straight Leg Raise: Negative L/S Right Straight Leg Raise: Negative - Balance Scores CATSIB Score (Max score 120 seconds): 5 - Goals Goal 1:: Patient to be Indepndant with HEP. Goal Time Frame: 4-6 Weeks Goal 2:: Patient to improve qulaity of gait community distances with cane. Goal Time Frame: 4-6 Weeks Goal 3:: Patient increase strength BLE quads/hams 4-/5,hip flexion 3+/5 to improve gait for function. Goal Time Frame: 4-6 Weeks Goal 4:: Patient to improve lumbar owestry score by 5 points or > to improve function and QOL. Goal Time Frame: 4-6 Weeks Goal 5:: Patient to improve ability to perform ADL'S ,housework tasks with min limiations Goal Time Frame: 4-6 Weeks - Rehabilitation Potential Physical Therapy Diagnosis: This patient has multiple complexity issue with recent lumbar surgery to remove hardware along with other comobities influences patient condition along with pain ,weakness ,poor lumbar ROM ,balance and gait deficits impairs ADL'S thus beifit from skilled PT. Rehabilitation Potential: Good - Anticipated Interventions Patient/Client Instruction: Educate patient on: Condition, Plan of Care For the Purpose of:: To decrease pain, To increase ROM, To improve muscle performance and motor function, To improve ability to perform ADL's, To increase tolerance to activity/condition/position, To improve performance and independence with ADL's, To improve ability of physical actions for home/community/work/leisure, To improve health of tissue, To improve endurance, To improve balance, To improve ability to perform tasks related to life management Therapeutic Exercise to Include: Strength training, Postural training, Flexibilty training, Gait and locomotor training, Dynamic Lumbar Stabilization Comment: BLE For the Purpose of:: To decrease pain, To increase ROM, To improve muscle performance and motor function, To improve ability to perform ADL's, To increase tolerance to activity/condition/position, To improve ability of physical actions for home/community/work/leisure, To improve gait and locomotor functions, To improve health of tissue, To decrease soft tissue restriction, To reduce risk of recurrence, To improve ability to perform tasks related to life management TENS: Yes IF ES: Yes Cryotherapy (ice pack, ice massage): Yes Thermo therapy (hot pack): Yes Ultrasound (thermal/non thermal): Yes For the Purpose of:: To decrease pain, To improve health of tissue, To decrease soft tissue restriction Thank you for the opportunity to evaluate your patient. For Medicare and Medicare HMO plans, please review the plan of care and approve it. It will need to be FAXED BACK to us at [phone] for Medicare purposes. For Medicare only, by signing this I certify the plan of care. Please let me know if there are questions or concerns regarding this plan of care. Physician Signature: Date:
[2019-06-26 11:45] VITALS: BP 146/76; PULSE 71; RESP 18; TEMP 36.6
--- NOTE | 2019-07-23 14:26 | HP.PTDCSUM_ITS ---
HP - PT D/C Summary It has been my pleasure to treat TRAM RIVERA under orders from RAOUL BRAVO, for the diagnosis of ENCOUNTER FOR [facility] FOLLOWING IN [facility] for a total of 8 visit(s). Discharge Date: 07/23/19 Please see the following information for a summary of their discharge status. - Subjective Subjective: Doing okay ,but alot of foot pain right. Plan to check circulation. Also ,plan to see wound DR cont - Pain Bilateral Back Pain Intensity (Out of 10): 0 Bilateral Lower Extremity Pain Intensity (Out of 10): 7 - Overall Improvement % Improvement: 40 - Objective Objective/Function: POSTURE: foward posture. GAIT: antalgic gait foward posture painfull right foot unsteady. MMT: QUADS/HAMS4-/5,HIP 3+/5. LUMBAR ROM: NT - Goals Goal 1:: Patient to be Indepndant with HEP. Goal Progress: Goal Met Goal 2:: Patient to improve qulaity of gait community distances with cane. Goal Progress: Progressing Goal 3:: Patient increase strength BLE quads/hams 4-/5,hip flexion 3+/5 to improve gait for function. Goal Progress: Progressing Goal 4:: Patient to improve lumbar owestry score by 5 points or > to improve function and QOL. Goal Progress: Progressing Goal 5:: Patient to improve ability to perform ADL'S ,housework tasks with min limiations Goal Progress: Progressing - Plan Plan: D/C - D/C Information Discharge Comments: HEP,AND WAIT UNTIL RIGHT FOOT ULCER HEALS If there are questions or concerns regarding this patient's physical therapy, please feel free to call me at [phone]. Thank you for the referral of this patient. Sincerely, Mayank Berger, PT, Cert MDT, OCS
== END 2019-07-23 19:00 | disposition home or self-care (01) ==
LOC: PT 14:00
PROVIDERS: Family Provider Family Medicine; PCP Family Medicine
DX: Z48.811 Encounter for surgical aftercare following surgery on the nervous system (principal)
CPT/HCPCS: 97110; 97162

== ENCOUNTER → 2019-07-24 13:18 | Outpatient (CLI) | payer MEDICARE, OTHER, SELFPAY ==
[2019-07-24 11:36] VITALS: BMI 24.9
[2019-07-24 13:59] LABS: Absolute Lymphocyte Count 1.29 X10^3/uL (0.83-4.51); Absolute Neutrophil Count 4.6 X10^3/uL (2.0-7.7); Basophil# 0.05 X10^3/uL; Basophil% 0.8 % (0-1); Hematocrit 43.4 % (40-54); Hemoglobin 14.1 g/dL (13.0-16.5); Lymphocyte # 1.29 X10^3/ul (4.0); Lymphocyte % 19.4 % (19-41); Mean Corp Hgb Conc 32.5 g/dL (32-36); Mean Corpuscular Hgb 30.9 pg (27.0-32.0); Mean Platelet Vol. 9.2 fl (6.2-12.0); Monocyte# 0.48 X10^3/uL; Monocyte% 7.2 % (0-10); NRBC Flagged by Analyzer 0 % (0-5); Neutrophil # 4.62 X10^3/uL (2.7-7.7); Neutrophil % 69.3 % (47-70); Platelet Count 247 K/mm3 (150-450); RBC Distribution Width SD 45.1 fl (35.1-43.9); Red Blood Count 4.57 M/mm3 (4.6-6.2); White Blood Count 6.7 K/mm3 (4.4-11.0)
[2019-07-24 14:22] LABS: Erythrocyte Sedimentation Rate 19 mm/hr (0-20)
[2019-07-24 14:30] LABS: Vitamin B12 665 pg/mL (211-911); Vitamin D,25 Hydroxy 37.7 ng/mL (29.95-100.01)
[2019-07-24 15:40] LABS: ALB/GLOB Ratio 0.9 RATIO (0.9-2.4); AST(SGOT) 14 U/L (15-37); Alanine Aminotransfer ALT/SGPT 19 U/L (16-61); Albumin, Serum 3.5 g/dL (3.2-5.0); Alkaline Phosphatase 89 U/L (45-117); Anion Gap 4 (5-15); BUN 18 mg/dL (7-18); BUN/Creat Ratio 15.5 RATIO (10-20); CRP < 2.90 mg/L (0.0-3.0); Calcium,Total 9.1 mg/dL (8.5-10.1); Chloride 110 mmol/L (98-107); Cholesterol 204 mg/dL (200); Creatinine, Serum 1.16 mg/dL (0.70-1.30); EST Glomerular Filtration Rate 66 mL/min (>60); Est Glom Filt Rate - Afr Amer 80 mL/min (>60); Ferritin 80 ng/mL (26-388); Glucose 96 mg/dL (74-106); High Density Lipoprotein 58 mg/dL; Iron 92 ug/dL (65-175); PSA,Total - Annual Screen 0.48 ng/mL (0.00-4.00); Potassium 4.3 mmol/L (3.5-5.1); Protein, Total 7.5 g/dL (6.4-8.2); Sodium Level 142 mmol/L (136-145); Thyroid Stim Hormone (TSH) 1.47 uIU/mL (0.358-3.74); Triglycerides 76 mg/dL; Very Low Density Lipoprotein 15 mg/dL (5-40)
[2019-07-27 17:52] LABS: Anti-Nuclear Antibody Test Negative (.)
[2019-07-28 17:14] LABS: Arsenic 7245 5 ug/L (2-23)
== END ==
PROVIDERS: PCP Family Medicine; Referring Provider Family Medicine; Visit Provider Family Medicine
DX: E11.621 Type 2 diabetes mellitus with foot ulcer (principal); E11.51 Type 2 diabetes mellitus with diabetic peripheral angiopathy without gangrene; L97.412 Non-pressure chronic ulcer of right heel and midfoot with fat layer exposed; I10 Essential (primary) hypertension; I25.10 Atherosclerotic heart disease of native coronary artery without angina pectoris; R33.9 Retention of urine, unspecified; E55.9 Vitamin D deficiency, unspecified; E61.1 Iron deficiency; D64.9 Anemia, unspecified; E78.5 Hyperlipidemia, unspecified; R53.83 Other fatigue; M25.50 Pain in unspecified joint; Z78.9 Other specified health status; Z95.1 Presence of aortocoronary bypass graft
CPT/HCPCS: 11042; 36415; 71046; 80053; 80061; 82175; 82306; 82607; 82728; 82746; 83540; 83655; 83825; 84153; 84443; 85025; 85652; 86038; 86140; G0103

== ENCOUNTER → 2019-08-03 09:59 | Outpatient (CLI) | payer MEDICARE, OTHER, SELFPAY ==
[2019-07-17 13:25] VITALS: BMI 24.9
[2019-07-31 11:36] VITALS: BMI 24.9
--- NOTE | 2019-08-03 10:04 | ADU_ITS ---
Reason For Study: Atherosclerosis Right Velocities Left Velocities Ext. Iliac Artery, dist = 105.2 cm./sec. Ext Iliac Artery, dist = 107 cm./sec. Common Femoral Artery, mid = 116.1 cm./sec. Common Femoral Artery, mid = 83.3 cm./sec. No flow noted in the right bypass graft from prox SFA origin 23.9 cm/sec. anastomosis to distal graft. No flow is noted in the SFA. Distal anastomosis 24.6 cm/sec. Profunda Femoral Artery = 101.5 cm./sec. Profunda Femoral Artery = 295.8 cm./sec. Popliteal Artery, mid = 15.9 cm./sec. Post. Tibial Artery, mid = 31 cm./sec. Popliteal Artery, distal = 80.3 cm./sec. Post. Tibial Artery, dist = 21.8 cm./sec. Peroneal Artery, prox = 5.3 cm./sec. Peroneal Artery, mid = 10 cm./sec. Peroneal Artery, mid = 7.5 cm./sec. Peroneal Artery,dist = 34.6 cm./sec. Peroneal Artery,dist. = 6 cm./sec. Ant. Tibial Artery, prox = 30.2 cm./sec. Ant.Tibial Artery, prox = 8.2 cm./sec. Ant. Tibial Artery, mid = 33.7 cm./sec. Ant Tibial Artery, mid = 21.1 cm./sec. Ant. Tibial Artery, dist = 23 cm./sec. Ant. Tibial Artery, distal = 8.9 cm./sec. No flow visualized in the Prox-Distal SFA, Tucker, No flow noted in the prox Tucker, SUPERVISOR SHUTTLE VENEERING with prox SUPERVISOR SHUTTLE VENEERING, and Prox PeroA. retrograde flow noted at proximal. Procedure Prelim to Navas's office. Exam performed in department. Interpretation Summary 1. Right SFA, popliteal and BPG occluded. 2. Left SFA and popliteal occluded. Ordering Physician: Lex Navas Referring Physician: Mckayla Silva Performed By: Savanna Quinones RVT
--- NOTE | 2019-08-03 10:04 | ART_ITS ---
Reason For Study: Atherpsclerosis Procedure A bilateral lower extremity continuous wave Doppler with analog waveform analysis and ankle brachial indexes. Left Segmental Pressures Left brachial= 159mmHg. Left posterior tibial artery = 50mmHg. Left dorsalis pedis artery = 28mmHg. Left digit = 27 mmHg. The left dorsalis pedis waveforms are monophasic. The left posterior tibial artery waveforms are monophasic. Right Segmental Pressures Right brachial= 163mmHg. Right dorsalis pedis artery = 84mmHg. Right digit = 27 mmHg. The right dorsalis pedis waveforms are monophasic. Indices The right ankle brachial index by the dorsalis pedis is 0.52. The right digital-brachial index is 0.17. The left ankle brachial index by the dorsalis pedis is 0.17. The left ankle brachial index by the posterior tibial artery is 0.31. The left digital-brachial index is 0.17. Interpretation Summary 1. right moderate occlussive disease with JANET 0.52 and DBI 0.17 2. Left with severe occlussive disease and JANET 0.31 and DBI 0.17. Ordering Physician: Lex Navas Referring Physician: Mckayla Silva Performed By: Savanna Quinones RVT
== END ==
PROVIDERS: PCP Family Medicine; Referring Provider Surgery Vascular Surgery; Visit Provider Surgery Vascular Surgery
DX: I70.213 Atherosclerosis of native arteries of extremities with intermittent claudication, bilateral legs (principal); Z48.812 Encounter for surgical aftercare following surgery on the circulatory system
CPT/HCPCS: 93922; 93925

== ENCOUNTER 2019-08-14 10:00 | Outpatient (RCR) | payer MEDICARE, OTHER, SELFPAY ==
[2019-07-18 00:31] VITALS: BP 142/77; PULSE 79; RESP 16; TEMP 36.3
[2019-07-24 11:36] VITALS: BP 143/77; PULSE 74; RESP 16; TEMP 36.2; BMI 24.9
--- NOTE | 2019-07-24 11:43 | WC ---
deepin left intact per cm instruction
--- NOTE | 2019-07-24 13:35 | RAD_ITS ---
STUDY: X-RAY CHEST REASON FOR EXAM: Male, 69 years old. PRE O2 HYPERBARIC TREATMENT, NO CURRENT CHEST COMPLAINTS TECHNIQUE: PA and lateral views of the chest. COMPARISON: 12/19/2017 FINDINGS: The lungs are clear and expanded. There is no demonstrated pleural abnormality. Normal size heart. Sternal wires are similar. Normal mediastinum and isaak. Normal visualized pulmonary arteries. There is atherosclerotic calcification of the aortic arch with tortuosity. Normal visualized thoracic spine. There are pedicle screws of L1. There is no demonstrated abnormality of the visualized soft tissue structures of the upper abdomen. RAD/Chest PA and Lateral IMPRESSION: 1. No acute cardiopulmonary process. Electronically Signed: Amado Little MD ([place]) at 14:18 EST , Service support ,
--- NOTE | 2019-07-24 14:34 | PCM.CONHBO ---
(1) Type 2 diabetes, controlled, with ulcer of heel Status: Chronic Current Visit: Yes Code(s): E11.621 - Type 2 diabetes mellitus with foot ulcer; L97.409 - Non-pressure chronic ulcer of unspecified heel and midfoot with unspecified severity (2) PAD (peripheral artery disease) Status: Chronic Current Visit: Yes Code(s): I73.9 - Peripheral vascular disease, unspecified (3) Peripheral vascular disease Status: Chronic Current Visit: Yes Code(s): I73.9 - Peripheral vascular disease, unspecified (4) Type II diabetes mellitus Status: Chronic Current Visit: Yes Qualifiers: Diabetes mellitus senior care insulin use: without 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 Diabetes mellitus complication status: with skin complications Diabetes mellitus complication detail: with foot ulcer Qualified Code(s): E11.621 - Type 2 diabetes mellitus with foot ulcer; L97.509 - Non-pressure chronic ulcer of other part of unspecified foot with unspecified severity Code(s): E11.9 - Type 2 diabetes mellitus without complications History of Present Illness Date of Service: 07/24/19 Presenting Chief Complaint: Nonhealing ulcer right heel The patient is a 69 year old M who [facility] to evaluate the possibility of initiating hyperbaric oxygen therapy for treatment of Valdez grade 3 diabetic foot ulcer of his right heel. His current ulcer has been present since February 06, 2019. The ulcer varies in size from 1.2 cm x 1.0 cm x 0.4 cm to 0.6 cm x 0.5 cm x 0.3 cm. 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 The ulcer recurred in the same spot as a previous ulcer that was treated from June 13, 2018 through December 19, 2018 and was healed by treatment with Theraskin. Unfortunately, he is chronically vascularly compromised due to peripheral artery disease and he had occlusion of his bypass graft which likely contributed to his ulcer reopening. He does follow with Dr. Navas regularly and had a bypass of his right SFA and popliteal arteries earlier this year. He has had procedures for his arterial disease in past to both of his lower extremities. He has tried alternative treatments with supplements and chelation therapy in the past to treat his peripheral artery disease but nothing has helped. In March 2019, he was hospitalized due to occlusion of his bypass graft in his right leg and Dr. Navas was able to open it 50%He also has blockages in his left leg. Dr. Navas was unable to revascularize either leg at this time and he may ultimately require limb amputation if his vascular disease worsens and he does not have wound healing. He also has diabetes and recent A1C was 5.7% on 07/23/2019. He does wear diabetic shoes and is wearing a surgical shoe to offload his right foot. He denies fever, chills, erythema or heavy drainage. He reports significant pain and discomfort of his right heel and his entire right leg. He does drink protein supplements daily. Albumin is pending. He has been on Levofloxacin for 7 days in June and is currently on Doxycycline 100 mg orally twice daily, and previously was treated with Augmentin and Bactrim in March and April. He has been undergoing weekly debridements to remove devitalized tissue since February 13, 2019 and has been using Verenice, Promogran and Aquacel at different times to control moisture to his wound. 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) Diabetes with ulcer of toe (Chronic) PAD (peripheral artery disease) (Chronic) Cellulitis and abscess of foot (Chronic) Type 2 diabetes, controlled, with ulcer of heel (Chronic) Non-healing open wound of heel (Chronic) Hyperlipidemia (Chronic) Peripheral vascular disease (Chronic) Hypertension (Chronic) Coronary artery disease (Chronic) Status post CABG Type II diabetes mellitus (Chronic) Allergies/Adverse Reactions: Allergies rivaroxaban [From Xarelto] Allergy (Verified 02/13/19 16:41) Other Home Medications: Ambulatory Orders Medication Instructions Recorded #17 3 tab PO DAILY 06/13/18 Aspirin [Lite Coat Aspirin] 325 mg PO DAILY 06/13/18 [id number] 1 PO DAILY 06/13/18 Calcium Lactate 1 PO DAILY 06/13/18 Cat C 2 PO DAILY 06/13/18 Cat E2 8 PO DAILY 06/13/18 Cholecalciferol (Vitamin D3) 5,000 mg PO DAILY 06/13/18 [Vitamin D3] Colon Clear 1 tab PO PRN PRN 06/13/18 Inositol 2 PO PRN PRN 06/13/18 Intestinal Cleanse No 1 3 tab PO PRN PRN 06/13/18 Koncentrated K 1 tab PO DAILY 06/13/18 Mag Lactate 1 PO DAILY 06/13/18 Nattokinase 2 tab PO DAILY 06/13/18 Potassium-Derick 1 PO DAILY 06/13/18 Tuna 03 Oil 3 PO DAILY 06/13/18 Zn-Zyme 1 PO DAILY 06/13/18 Clopidogrel Bisulfate [Clopidogrel] 75 mg PO DAILY 09/08/18 traMADol [Ultram] 50 tablet PO PRN PRN 09/08/18 Aurum Metallicum 2 drp PO DAILY 02/13/19 Cbd Oil DAILY 02/13/19 Sibling Family History: Cancer Maternal Family History: Diabetes, Heart Disease, Hypertension, Stroke Paternal Family History: Diabetes, Heart Disease, Pulmonary Disease Lives: Spouse/ Significant Other Smoking Status: Never smoker Tobacco Use: Non-smoker Alcohol: None Drugs: None Review of Systems Constitutional: Reports: Anorexia, Malaise, Fatigue. Denies: Chills, Fever Eyes: Reports: Cataracts. Denies: Double vision HEENT: Reports: Nasal Congestion, Post Nasal Drip, Sinus Congestion. Denies: Difficulty Hearing, Difficulty Swallowing, Ear Pain, Hard of Hearing, Sore Throat Cardiovascular: Denies: Chest Pain, Palpitations Respiratory: Denies: Cough, Shortness of Breath Gastrointestinal: Denies: Diarrhea, Nausea, Vomiting Genitourinary: Reports: Hesitancy. Denies: Dysuria, Hematuria Musculoskeletal: Reports: Back Pain, Foot Pain, Joint Pain, Leg Pain, Muscle pain Skin: Reports: Wounds Neurological: Reports: Balance problems, Numbness, Tingling. Denies: Double vision, Slurred speech, Confusion, Focal weakness, Headaches, Seizures Psychiatric: Reports: Depression. Denies: Anxiety, Homicidal Ideations, Suicidal Ideations Endocrine: Denies: Polydipsia, Polyuria Hematologic/ Lymphatic: Denies: Easy Bruising, Easy Bleeding - Physical Exam Vital Signs Temp Pulse Resp BP 97.2 F L 74 16 143/77 H 07/24/19 11:36 07/24/19 11:36 07/24/19 11:36 07/24/19 11:36 General: Alert, Oriented x3, Cooperative, No apparent distress HEENT: Atraumatic, EOMI, Normocephalic, TM's Clear, EAC Clear Oral: Moist Mucosa Neck: Supple, No JVD, Negative Carotid Bruits Lungs: Clear to auscultation Cardiovascular: Regular rate, Regular Rhythm Abdomen: Soft, Non Tender Extremities: No clubbing, No cyanosis, No edema, Capillary Refill Less than 3 Seconds, Diminished Peripheral Pulses Skin: Ulcer/ Wound Wound Measurements and Assessment WC - Nurse 1 - General Ulcer Measurement Start: 07/24/19 11:36 Freq: Status: Active Protocol: Activity Type Activity Date Activity User E-Sign Co-Sign Detail Recorded Client Recorded Date Recorded By Document 07/24/19 11:36 [facility] [id number] 07/24/19 11:43 [facility] 07/24/19 11:36 Wound Center Nurse 1 [Ulcer Assessment] #14- R HEEL -Combined with other wound No -Current Size (cm) - Length 0.1 -Current Size (cm) - Width 0.1 -Current Size (cm) - Depth 0.1 -Total Square Cm 0.01 -Photo Taken No [Edema Assessment] -Lower Limb Edema Present No -Right Calf (cm) 26.6 -Right Ankle (cm) 19.6 WC - Nurse 2 - General Ulcer CM Notes Start: 07/24/19 11:36 Freq: Status: Active Protocol: Activity Type Activity Date Activity User E-Sign Co-Sign Detail Recorded Client Recorded Date Recorded By Document 07/24/19 12:37 DV [id number] 07/24/19 12:46 DV 07/24/19 12:37 Wound Center Nurse 2 [Procedure/Treatment] #14- R HEEL -Time 12:42 -Correct Patient Yes -Correct Side, Site, Position Yes -Correct Procedure Yes -Procedure Performed Yes -Type of Procedure Debridement -Clinical Debridement Subcutaneous -Post Debridement Size (cm) - Length 0.6 -Post Debridement Size (cm) - Width 0.5 -Post Debridement Size (cm) - Depth 0.5 -Total Square Cm 0.30 -Wound/Ulcer Outcome Not Healed -Ulcer Cleansing Rinsed/ Irrigated with Saline -Foul Odor after Cleansing No -Bioengineered Tissue No -Bleeding Controlled with Pressure -Offloading No -Treatment Response Procedure Tolerated Well [See Physician Procedure note for Specifics] Pain Scale: 0-10 Numeric [Pain] -Is Patient Pain Free? Yes Musculoskeletal: Arthritic Changes, Muscle Wasting Lymphatic: No Cervical, Supraclavicular, or Inguinal Adenopathy Neurological: Neuro grossly intact Psych/Mental Status: Normal Affect, Appropriate Comment: right heel ulcer 0.6 cm x 0.5 cm x 0.4 cm Assessment/Plan Active Problems PAD (peripheral artery disease) (Chronic) Type 2 diabetes, controlled, with ulcer of heel (Chronic) Peripheral vascular disease (Chronic) Type II diabetes mellitus (Chronic) TRAM RIVERA is an appropriate candidate for hyperbaric oxygen therapy. Hyperbaric Oxygen Therapy would be an essential adjunct in the resolution and treatment of this patient's presenting problem. This patient has sufficient physiologic and psychological stamina to undergo the rigors of hyperbaric oxygen therapy. As such, I recommend the following: Hyperbaric Oxygen Treatments at 2.0 ANA in 100% Oxygen for 90 minutes per treatment, for 40 treatments. I have discussed the possible benefits of hyperbaric oxygen therapy with this patient. I have also presented and described the risks, including: air gas embolism, pneumothorax, central nervous system and pulmonary oxygen toxicity, flash pulmonary edema, hypoglycemia, reversible visual refractive changes, ear and sinus kirsten-trauma, and confinement anxiety. The patient has verbalized understanding of these risks, and is still wanting to undergo hyperbaric oxygen therapy. The patient understands the significant time and transportation commitment involved in daily treatments of up to two hours duration and has stated that they are willing to commit to this therapy. EKG has been reviewed and no contraindications noted. Chest xray showed no signs of pulmonary disease. - HBOT Diagnosis Valdez III Diabetic Lower Extremity Ulcer, Heel (707.14/250.8) Non Healing Wound (707)
--- NOTE | 2019-07-24 15:15 | PN.PCM_ITS ---
(1) Type 2 diabetes, controlled, with ulcer of heel Status: Chronic Current Visit: Yes Code(s): E11.621 - Type 2 diabetes mellitus with foot ulcer; L97.409 - Non-pressure chronic ulcer of unspecified heel and midfoot with unspecified severity (2) PAD (peripheral artery disease) Status: Chronic Current Visit: Yes Code(s): I73.9 - Peripheral vascular disease, unspecified (3) Peripheral vascular disease Status: Chronic Current Visit: Yes Code(s): I73.9 - Peripheral vascular disease, unspecified (4) Type II diabetes mellitus Status: Chronic Current Visit: Yes Qualifiers: Diabetes mellitus [facility] insulin use: without intermediate project manager use Diabetes mellitus complication status: with skin complications Diabetes mellitus complication detail: with foot ulcer Qualified Code(s): E11.621 - Type 2 diabetes mellitus with foot ulcer; L97.509 - Non-pressure chronic ulcer of other part of unspecified foot with unspecified severity Code(s): E11.9 - Type 2 diabetes mellitus without complications Type of Wound Date of Service: 07/24/19 Chief Complaint: Nonhealing ulcer right heel History of Wound: Gibson is here for evaluation of an ulcer of his right heel. He was recently treated for this same area with Theraskin application and was discharged approximately 8 weeks ago. He has noticed increased pain in his heel for the last 2 weeks and last his noted that the area had opened after his supervising broker had debrided some callus from the area. He has been applying Aquacel and gauze to the ulcer. He does follow with Dr. Navas regularly and had a bypass of his right SFA and popliteal arteries earlier this year. He has had procedures for his arterial disease in past to both of his lower extremities. He has tried alternative treatments with supplements and chelation therapy in the past. He also has diabetes and recent A1C was 7.2% He does wear diabetic shoes. He has been undergoing chelation treatments by Dr. German in [place]. He denies fever, chills, erythema or heavy drainage. He r eports significant pain and discomfort of his right heel and his entire right leg which no one can explain. In March 2019, he was hospitalized due to occlusion of his bypass graft in his right leg and Dr. Navas was able to open it 50%. He also has blockages in his left leg. Dr. Navas is unable to revascularize either leg at this time and he may ultimately require limb amputation if his vascular disease worsens. Progress of Wound: Gibson is here to follow up for nonhealing ulcer of his right heel. He continues to have significant pain in his right heel. Xrays did not show osteomyelitis or heel spur or other cause for his pain. Theraskin removed today and there has not been much improvement. His states there is a moderate amount of drainage daily but there has been no leakage through his dressings. Denies fever, chills, erythema. - Physical Exam Vital Signs Temp Pulse Resp BP 97.2 F L 74 16 143/77 H 07/24/19 11:36 07/24/19 11:36 07/24/19 11:36 07/24/19 11:36 General: Alert, Oriented x3, Cooperative, No apparent distress HEENT: Atraumatic, Normocephalic Oral: Moist Mucosa Neck: Supple, No JVD, Negative Carotid Bruits Lungs: Clear to auscultation Cardiovascular: Regular rate, Regular Rhythm Abdomen: Soft, Non Tender Extremities: No edema, Capillary Refill Less than 3 Seconds, Cool, Diminished Peripheral Pulses Skin: Ulcer/ Wound Wound Measurements and Assessment WC - Nurse 1 - General Ulcer Measurement Start: 07/24/19 11:36 Freq: Status: Active Protocol: Activity Type Activity Date Activity User E-Sign Co-Sign Detail Recorded Client Recorded Date Recorded By Document 07/24/19 11:36 BM [id number] 07/24/19 11:43 [facility] 07/24/19 11:36 Wound Center Nurse 1 [Ulcer Assessment] #14- R HEEL -Combined with other wound No -Current Size (cm) - Length 0.1 -Current Size (cm) - Width 0.1 -Current Size (cm) - Depth 0.1 -Total Square Cm 0.01 -Photo Taken No [Edema Assessment] -Lower Limb Edema Present No -Right Calf (cm) 26.6 -Right Ankle (cm) 19.6 WC - Nurse 2 - General Ulcer CM Notes Start: 07/24/19 11:36 Freq: Status: Active Protocol: Activity Type Activity Date Activity User E-Sign Co-Sign Detail Recorded Client Recorded Date Recorded By Document 07/24/19 12:37 DV [id number] 07/24/19 12:46 DV 07/24/19 12:37 Wound Center Nurse 2 [Procedure/Treatment] #14- R HEEL -Time 12:42 -Correct Patient Yes -Correct Side, Site, Position Yes -Correct Procedure Yes -Procedure Performed Yes -Type of Procedure Debridement -Clinical Debridement Subcutaneous -Post Debridement Size (cm) - Length 0.6 -Post Debridement Size (cm) - Width 0.5 -Post Debridement Size (cm) - Depth 0.5 -Total Square Cm 0.30 -Wound/Ulcer Outcome Not Healed -Ulcer Cleansing Rinsed/ Irrigated with Saline -Foul Odor after Cleansing No -Bioengineered Tissue No -Bleeding Controlled with Pressure -Offloading No -Treatment Response Procedure Tolerated Well [See Physician Procedure note for Specifics] Pain Scale: 0-10 Numeric [Pain] -Is Patient Pain Free? Yes Musculoskeletal: Muscle Wasting Lymphatic: No Cervical, Supraclavicular, or Inguinal Adenopathy Psych/Mental Status: Normal Affect, Appropriate Debridement Note Post-Debridement Measurements/Treatment WC - Nurse 2 - General Ulcer CM Notes Start: 07/24/19 11:36 Freq: Status: Active Protocol: Activity Type Activity Date Activity User E-Sign Co-Sign Detail Recorded Client Recorded Date Recorded By Document 07/24/19 12:37 DV [id number] 07/24/19 12:46 DV 07/24/19 12:37 Wound Center Nurse 2 #14- R HEEL -Time 12:42 -Correct Patient Yes -Correct Side, Site, Position Yes -Correct Procedure Yes -Procedure Performed Yes -Type of Procedure Debridement -Clinical Debridement Subcutaneous -Post Debridement Size (cm) - Length 0.6 -Post Debridement Size (cm) - Width 0.5 -Post Debridement Size (cm) - Depth 0.5 -Total Square Cm 0.30 -Wound/Ulcer Outcome Not Healed -Ulcer Cleansing Rinsed/ Irrigated with Saline -Foul Odor after Cleansing No -Bioengineered Tissue No -Bleeding Controlled with Pressure -Offloading No -Treatment Response Procedure Tolerated Well Pain Scale: 0-10 Numeric Is Patient Pain Free? Yes Wound debrided: right heel Laterality: Right Wound Grade/Stage: Valdez grade 3 Type of Debridement: Excisional debridement Anesthesia Used: 4% Lidocaine Solution, 5% Lidocaine Gel Depth: Down to and including healthy tissue, in the subcutaneous layer, to muscle Percentage of wound debrided: 100 Instrument Used: 5mm curette Tissue Removed: yellow slough, devitalized tissue Severity: Fat Layer Exposed Amount of bleeding with debridement: Mild Bleeding Controlled with: Compression and gauze Patient tolerated procedure well Assessment/Plan Active Problems PAD (peripheral artery disease) (Chronic) Type 2 diabetes, controlled, with ulcer of heel (Chronic) Peripheral vascular disease (Chronic) Type II diabetes mellitus (Chronic) Assessment: 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 Diabetes me llitus - uncontrolled. Peripheral vascular disease - status post revascularization 08/07/18 Plan: Gibson's ulcer was evaluated and debrided today. Theraskin not adherent to ulcer. Will dress his ulcer daily with fibracol. Ulcer then covered with gauze and an ABD nurse hat to his heel. He will continue to use the surgical shoe for offloading. Doxycycline for positive wound culture prescribed. He would benefit from hyperbaric oxygen treatment to help heal his wound and salvage his limb from amputation given his comorbid arterial disease and DFU. Hyperbaric consultation at next visit. Gathering data for clearance for HBO treatment to submit to insurance. Tramadol 50 mg #84 and Oxycodone 5 mg #45 were prescribed for treatment of pain with debridements on 07/10/2019. OARRS was appropriate. No signs of diversion or abuse. Encouraged to call with any increase in pain or drainage, fever or chills. F/U in 1 week.
[2019-07-31 11:36] VITALS: BP 148/84; PULSE 80; RESP 16; TEMP 36.3; BMI 24.9
--- NOTE | 2019-07-31 15:49 | PN.PCM_ITS ---
(1) Type 2 diabetes, controlled, with ulcer of heel Status: Chronic Current Visit: Yes Code(s): E11.621 - Type 2 diabetes mellitus with foot ulcer; L97.409 - Non-pressure chronic ulcer of unspecified heel and midfoot with unspecified severity (2) PAD (peripheral artery disease) Status: Chronic Current Visit: Yes Code(s): I73.9 - Peripheral vascular disease, unspecified (3) Peripheral vascular disease Status: Chronic Current Visit: Yes Code(s): I73.9 - Peripheral vascular disease, unspecified (4) Type II diabetes mellitus Status: Chronic Current Visit: Yes Qualifiers: Diabetes mellitus [facility] insulin use: without shank threader use Diabetes mellitus complication status: with skin complications Diabetes mellitus complication detail: with foot ulcer Qualified Code(s): E11.621 - Type 2 diabetes mellitus with foot ulcer; L97.509 - Non-pressure chronic ulcer of other part of unspecified foot with unspecified severity Code(s): E11.9 - Type 2 diabetes mellitus without complications Type of Wound Date of Service: 07/31/19 Chief Complaint: Nonhealing ulcer right heel History of Wound: Gibson is here for evaluation of an ulcer of his right heel. He was recently treated for this same area with Theraskin application and was discharged approximately 8 weeks ago. He has noticed increased pain in his heel for the last 2 weeks and last his noted that the area had opened after his animal nutrition teacher had debrided some callus from the area. He has been applying Aquacel and gauze to the ulcer. He does follow with Dr. Navas regularly and had a bypass of his right SFA and popliteal arteries earlier this year. He has had procedures for his arterial disease in past to both of his lower extremities. He has tried alternative treatments with supplements and chelation therapy in the past. He also has diabetes and recent A1C was 7.2% He does wear diabetic shoes. He has been undergoing chelation treatments by Dr. German in [place]. He denies fever, chills, erythema or heavy drainage. He r eports significant pain and discomfort of his right heel and his entire right leg which no one can explain. In March 2019, he was hospitalized due to occlusion of his bypass graft in his right leg and Dr. Navas was able to open it 50%. He also has blockages in his left leg. Dr. Navas is unable to revascularize either leg at this time and he may ultimately require limb amputation if his vascular disease worsens. Progress of Wound: Gibson is here to follow up for nonhealing ulcer of his right heel. He continues to have significant pain in his right heel. Xrays did not show osteomyelitis or heel spur or other cause for his pain. He tolerated Fibracol dressings and there appeared to be improvement but upon debridement there was still significant undermining and devitalized tissue. His states there is a moderate amount of drainage daily but there has been no leakage through his dressings. Denies fever, chills, erythema. - Physical Exam Vital Signs Temp Pulse Resp BP 97.4 F L 80 16 148/84 H 07/31/19 11:36 07/31/19 11:36 07/31/19 11:36 07/31/19 11:36 General: Alert, Oriented x3, Cooperative, No apparent distress HEENT: Atraumatic, Normocephalic Oral: Moist Mucosa Extremities: Capillary Refill Less than 3 Seconds, Cool, Diminished Peripheral Pulses Skin: Ulcer/ Wound Wound Measurements and Assessment WC - Nurse 1 - General Ulcer Measurement Start: 07/24/19 11:36 Freq: Status: Active Protocol: Activity Type Activity Date Activity User E-Sign Co-Sign Detail Recorded Client Recorded Date Recorded By Document 07/31/19 11:36 [facility] [id number] 07/31/19 11:43 [facility] 07/31/19 11:36 Wound Center Nurse 1 [Ulcer Assessment] #14- R HEEL -Combined with other wound No -Current Size (cm) - Length 0.2 -Current Size (cm) - Width 0.2 -Current Size (cm) - Depth 0.3 -Total Square Cm 0.04 -Date of Last Picture (Recall this 07/31/19 field) -Photo Taken Yes -Epithelialization None Present -Tunneling No -Undermining/Tunneling No -Circular Undermining No -Exudate Amt Small -Exudate Type Serosanguineous -Wound Margin Distinct, Outline Attached -Granulation Amt Large (67-100%) -Granulation Quality Pale,[place] -Slough/Fibrin Yes -Necrosis Amt Small (1-33%) -Necrotic Tissue Type Adherent Slough -Texture (Shahana-wound Skin Appearance) Assessed,Callus ,Scarring -Moisture (Shahana-wound Skin Appearance Assessed,Dry/ ) Scaly -Color (Shahana-wound Skin Appearance) Assessed -Temperature (Shahana-wound Skin No Abnormality Appearance) (Pt Warm) -Tenderness on Palpation (Shahana-wound No Skin Appearance) -Ulcer Cleansing Rinsed/ Irrigated with Saline -Foul Odor after Cleansing No -Anesthetic Used 5% Lidocaine Gel WC - Nurse 2 - General Ulcer CM Notes Start: 07/24/19 11:36 Freq: Status: Active Protocol: Activity Type Activity Date Activity User E-Sign Co-Sign Detail Recorded Client Recorded Date Recorded By Document 07/31/19 12:07 MW [id number] 07/31/19 12:45 MW 07/31/19 12:07 Wound Center Nurse 2 [Procedure/Treatment] -Time 12:10 -Correct Patient Yes -Correct Side, Site, Position Yes -Correct Procedure Yes -Procedure Performed Yes -Type of Procedure Debridement -Clinical Debridement Subcutaneous -Post Debridement Size (cm) - Length 2.0 -Post Debridement Size (cm) - Width 1.5 -Post Debridement Size (cm) - Depth 0.8 -Total Square Cm 3.00 -Wound/Ulcer Outcome Not Healed -Ulcer Cleansing Rinsed/ Irrigated with Saline -Foul Odor after Cleansing No -Bioengineered Tissue No -Injectable Lidocaine (%) 2 -Lidocaine (ml) 5 -Bleeding Controlled with Pressure -Other UNDERMINING 9- 11, 0.7CM & 1-2 , 0.7CM -Offloading No -Treatment Response Procedure Tolerated Well [See Physician Procedure note for Specifics] Pain Scale: 0-10 Numeric [Pain] -Is Patient Pain Free? Yes Psych/Mental Status: Normal Affect, Appropriate Debridement Note Post-Debridement Measurements/Treatment - Nurse 2 - General Ulcer CM Notes Start: 07/24/19 11:36 Freq: Status: Active Protocol: Activity Type Activity Date Activity User E-Sign Co-Sign Detail Recorded Client Recorded Date Recorded By Document 07/24/19 12:37 DV [id number] 07/24/19 12:46 DV Document 07/31/19 12:07 MW [id number] 07/31/19 12:45 MW 07/24/19 07/31/19 12:37 12:07 Wound Center Nurse 2 #14- R HEEL -Time 12:42 12:10 -Correct Patient Yes Yes -Correct Side, Site, Position Yes Yes -Correct Procedure Yes Yes -Procedure Performed Yes Yes -Type of Procedure Debridement Debridement -Clinical Debridement Subcutaneous Subcutaneous -Post Debridement Size (cm) - Length 0.6 2.0 -Post Debridement Size (cm) - Width 0.5 1.5 -Post Debridement Size (cm) - Depth 0.5 0.8 -Total Square Cm 0.30 3.00 -Wound/Ulcer Outcome Not Healed Not Healed -Ulcer Cleansing Rinsed/ Rinsed/ Irrigated with Irrigated with Saline Saline -Foul Odor after Cleansing No No -Bioengineered Tissue No No -Injectable Lidocaine (%) 2 -Lidocaine (ml) 5 -Bleeding Controlled with Pressure Pressure -Other UNDERMINING 9- 11, 0.7CM & 1-2 , 0.7CM -Offloading No No -Treatment Response Procedure Procedure Tolerated Well Tolerated Well Pain Scale: 0-10 Numeric Is Patient Pain Free? Yes Yes Wound debrided: right heel Laterality: Right Wound Grade/Stage: Valdez grade 3 Type of Debridement: Excisional debridement Anesthesia Used: 4% Lidocaine Solution, 5% Lidocaine Gel, Cetacaine - 2% 5 ml Depth: Down to and including healthy tissue, in the subcutaneous layer, to muscle Percentage of wound debrided: 100 Instrument Used: 5mm curette, #15 blade, Forceps Tissue Removed: yellow slough, devitalized tissue Severity: Fat Layer Exposed Amount of bleeding with debridement: Mild Bleeding Controlled with: Compression and gauze Patient tolerated procedure well Assessment/Plan Clinical Impression(s) from Imaging Studies Chest X-Ray 07/24/19 13:35 IMPRESSION: 1. No acute cardiopulmonary process. 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 Diabetes mellitus - uncontrolled. Peripheral vascular disease - status post revascularization 08/07/18 Plan: Gibson's ulcer was evaluated and debrided today with removal of overlying tissue to uncover the base of his ulcer. Will continue to dress his ulcer daily with fibracol. Ulcer then covered with gauze and an ABD nurse hat to his heel. He will continue to use the surgical shoe for offloading. He is taking doxycycline for a positive wound culture and another wound culture was taken today. He would benefit from hyperbaric oxygen treatment to help heal his wound and salvage his limb from amputation given his comorbid arterial disease and DFU. He is cleared to begin hyperbaric oxygen treatment. Tramadol 50 mg #84 and Oxycodone 5 mg #45 were prescribed for treatment of pain with debridements on 07/31/2019. OARRS was appropriate. No signs of diversion or abuse. Encouraged to call with any increase in pain or drainage, fever or chills. He will benefit from application of an advanced wound healing product such as Primatrix Ag to help heal his ulcer and prevent limb loss in conjunction with hyperbaric oxygen treatment. F/U in 1 week.
[2019-08-05 12:00] LABS: Bedside Glucose 117 mg/dL (70-110)
[2019-08-05 12:15] VITALS: BP 117/66; PULSE 73; RESP 18; TEMP 36.8
--- NOTE | 2019-08-05 17:41 | PCM.HBO.PN ---
History of Present Illness Date of Service: 08/05/19 Presenting Chief Complaint: Nonhealing ulcer right heel TRAM RIVERA is a 69 year old currently undergoing hyperbaric oxygen therapy for Valdez grade 3 diabetic foot ulcer of his right heel Progress: Today the patient presents to the wound center for his initial hyperbaric oxygen therapy session, and a planned 40 sessions. Tolerance of hyperbaric oxygen therapy: Prior to planned treatment, patient was evaluated by physical exam. Unfortunately, unable to visualize left tympanic membrane second to obstruction of view by cerumen impaction. Patient was advised not to proceed with hyperbaric oxygen therapy today. Referral placed for early childhood education specialist to remove the cerumen for further evaluation. 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) Diabetes with ulcer of toe (Chronic) PAD (peripheral artery disease) (Chronic) Cellulitis and abscess of foot (Chronic) Type 2 diabetes, controlled, with ulcer of heel (Chronic) Non-healing open wound of heel (Chronic) Hyperlipidemia (Chronic) Peripheral vascular disease (Chronic) Hypertension (Chronic) Coronary artery disease (Chronic) Status post CABG Type II diabetes mellitus (Chronic) Allergies/Adverse Reactions: Allergies rivaroxaban [From Xarelto] Allergy (Verified 02/13/19 16:41) Other Home Medications: Ambulatory Orders Medication Instructions Recorded #17 3 tab PO DAILY 06/13/18 Aspirin [Lite Coat Aspirin] 325 mg PO DAILY 06/13/18 [id number] 1 PO DAILY 06/13/18 Calcium Lactate 1 PO DAILY 06/13/18 Cat C 2 PO DAILY 06/13/18 Cat E2 8 PO DAILY 06/13/18 Cholecalciferol (Vitamin D3) 5,000 mg PO DAILY 06/13/18 [Vitamin D3] Colon Clear 1 tab PO PRN PRN 06/13/18 Inositol 2 PO PRN PRN 06/13/18 Intestinal Cleanse No 1 3 tab PO PRN PRN 06/13/18 Koncentrated K 1 tab PO DAILY 06/13/18 Mag Lactate 1 PO DAILY 06/13/18 Nattokinase 2 tab PO DAILY 06/13/18 Potassium-Derick 1 PO DAILY 06/13/18 Tuna 03 Oil 3 PO DAILY 06/13/18 Zn-Zyme 1 PO DAILY 06/13/18 Clopidogrel Bisulfate [Clopidogrel] 75 mg PO DAILY 09/08/18 traMADol [Ultram] 50 tablet PO PRN PRN 09/08/18 Aurum Metallicum 2 drp PO DAILY 02/13/19 Cbd Oil DAILY 02/13/19 Sibling Family History: Cancer Maternal Family History: Diabetes, Heart Disease, Hypertension, Stroke Paternal Family History: Diabetes, Heart Disease, Pulmonary Disease Lives: Spouse/ Significant Other Smoking Status: Never smoker Tobacco Use: Non-smoker Alcohol: None Drugs: None Physical Exam Vital Signs Temp Pulse Resp BP 98.2 F 73 18 117/66 08/05/19 12:15 08/05/19 12:15 08/05/19 12:15 08/05/19 12:15 General: Alert, Oriented x3, Cooperative, No apparent distress HEENT: Atraumatic, - - Right tympanic membrane clear, unable to view left tympanic membrane secondary to cerumen impaction Lungs: Clear to auscultation, Normal air movement Cardiovascular: Regular rate, Regular Rhythm Psych/Mental Status: Normal Affect, Appropriate, Alert and oriented to time, place, person, mood and affect Assessment/Plan Active Problems PAD (peripheral artery disease) (Chronic) Type 2 diabetes, controlled, with ulcer of heel (Chronic) Peripheral vascular disease (Chronic) Type II diabetes mellitus (Chronic) Referral to ENT for cerumen removal. Will reevaluate once able to fully examine bilateral tympanic membranes.
[2019-08-06 11:50] LABS: Bedside Glucose 174 mg/dL (70-110)
[2019-08-06 12:29] VITALS: BP 131/80; PULSE 83; RESP 16; TEMP 36.7
--- NOTE | 2019-08-06 13:04 | PCM.HBO.PN ---
History of Present Illness Date of Service: 08/06/19 Presenting Chief Complaint: Nonhealing ulcer right heel TRAM RIVERA is a 69 year old currently undergoing hyperbaric oxygen therapy for Valdez grade 3 diabetic foot ulcer of his right heel Progress: Today represents the patient's first hyperbaric oxygen treatment and a 40 planned sessions. Tolerance of hyperbaric oxygen therapy: Hyperbaric oxygen treatment was provided as per the facility's protocol at 2.0 ANA in 100% oxygen for 90 minutes. The patient tolerated hyperbaric oxygen well, without complications or complaints. Upon emergence of the hyperbaric chamber, the patient's vital signs remained stable. He was discharged in good condition. See documented blood glucose levels. 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) Diabetes with ulcer of toe (Chronic) PAD (peripheral artery disease) (Chronic) Cellulitis and abscess of foot (Chronic) Type 2 diabetes, controlled, with ulcer of heel (Chronic) Non-healing open wound of heel (Chronic) Hyperlipidemia (Chronic) Peripheral vascular disease (Chronic) Hypertension (Chronic) Coronary artery disease (Chronic) Status post CABG Type II diabetes mellitus (Chronic) Allergies/Adverse Reactions: Allergies rivaroxaban [From Xarelto] Allergy (Verified 02/13/19 16:41) Other Home Medications: Ambulatory Orders Medication Instructions Recorded #17 3 tab PO DAILY 06/13/18 Aspirin [Lite Coat Aspirin] 325 mg PO DAILY 06/13/18 [id number] 1 PO DAILY 06/13/18 Calcium Lactate 1 PO DAILY 06/13/18 Cat C 2 PO DAILY 06/13/18 Cat E2 8 PO DAILY 06/13/18 Cholecalciferol (Vitamin D3) 5,000 mg PO DAILY 06/13/18 [Vitamin D3] Colon Clear 1 tab PO PRN PRN 06/13/18 Inositol 2 PO PRN PRN 06/13/18 Intestinal Cleanse No 1 3 tab PO PRN PRN 06/13/18 Koncentrated K 1 tab PO DAILY 06/13/18 Mag Lactate 1 PO DAILY 06/13/18 Nattokinase 2 tab PO DAILY 06/13/18 Potassium-Derick 1 PO DAILY 06/13/18 Tuna 03 Oil 3 PO DAILY 06/13/18 Zn-Zyme 1 PO DAILY 06/13/18 Clopidogrel Bisulfate [Clopidogrel] 75 mg PO DAILY 09/08/18 traMADol [Ultram] 50 tablet PO PRN PRN 09/08/18 Aurum Metallicum 2 drp PO DAILY 02/13/19 Cbd Oil DAILY 02/13/19 Sibling Family History: Cancer Maternal Family History: Diabetes, Heart Disease, Hypertension, Stroke Paternal Family History: Diabetes, Heart Disease, Pulmonary Disease Lives: Spouse/ Significant Other Smoking Status: Never smoker Tobacco Use: Non-smoker Alcohol: None Drugs: None Physical Exam Vital Signs Temp Pulse Resp BP 98.2 F 73 18 117/66 08/05/19 12:15 08/05/19 12:15 08/05/19 12:15 08/05/19 12:15 General: Alert, Oriented x3, Cooperative, No apparent distress HEENT: Atraumatic, TM's Clear Lungs: Clear to auscultation, Normal air movement Cardiovascular: Regular rate, Regular Rhythm Psych/Mental Status: Normal Affect, Appropriate, Alert and oriented to time, place, person, mood and affect Assessment/Plan Active Problems PAD (peripheral artery disease) (Chronic) Type 2 diabetes, controlled, with ulcer of heel (Chronic) Peripheral vascular disease (Chronic) Type II diabetes mellitus (Chronic) The patient appears to be tolerating hyperbaric oxygen therapy well, which will be continued as per the patient's medical plan.
[2019-08-06 14:26] LABS: Bedside Glucose 79 mg/dL (70-110)
[2019-08-07 12:00] LABS: Bedside Glucose 165 mg/dL (70-110)
[2019-08-07 12:32] VITALS: BP 138/89; BP 139/77; PULSE 83; PULSE 84; RESP 18; TEMP 36.6; TEMP 36.8
[2019-08-07 14:21] LABS: Bedside Glucose 127 mg/dL (70-110)
[2019-08-07 14:29] VITALS: BP 138/89; PULSE 84; RESP 18; TEMP 36.8; BMI 24.9
--- NOTE | 2019-08-07 17:06 | PCM.HBO.PN ---
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 Tolerance of hyperbaric oxygen therapy: Hyperbaric oxygen treatment was provided as per the facility's protocol at 2.0 ANA in 100% oxygen for 90 minutes. The patient tolerated hyperbaric oxygen well, without complications or complaints. Upon emergence of the hyperbaric chamber, the patient's vital signs remained stable. He was discharged in good condition. See documented blood glucose levels. 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) Diabetes with ulcer of toe (Chronic) PAD (peripheral artery disease) (Chronic) Cellulitis and abscess of foot (Chronic) Type 2 diabetes, controlled, with ulcer of heel (Chronic) Non-healing open wound of heel (Chronic) Hyperlipidemia (Chronic) Peripheral vascular disease (Chronic) Hypertension (Chronic) Coronary artery disease (Chronic) Status post CABG Type II diabetes mellitus (Chronic) Allergies/Adverse Reactions: Allergies rivaroxaban [From Xarelto] Allergy (Verified 02/13/19 16:41) Other Home Medications: Ambulatory Orders Medication Instructions Recorded #17 3 tab PO DAILY 06/13/18 Aspirin [Lite Coat Aspirin] 325 mg PO DAILY 06/13/18 [id number] 1 PO DAILY 06/13/18 Calcium Lactate 1 PO DAILY 06/13/18 Cat C 2 PO DAILY 06/13/18 Cat E2 8 PO DAILY 06/13/18 Cholecalciferol (Vitamin D3) 5,000 mg PO DAILY 06/13/18 [Vitamin D3] Colon Clear 1 tab PO PRN PRN 06/13/18 Inositol 2 PO PRN PRN 06/13/18 Intestinal Cleanse No 1 3 tab PO PRN PRN 06/13/18 Koncentrated K 1 tab PO DAILY 06/13/18 Mag Lactate 1 PO DAILY 06/13/18 Nattokinase 2 tab PO DAILY 06/13/18 Potassium-Derick 1 PO DAILY 06/13/18 Tuna 03 Oil 3 PO DAILY 06/13/18 Zn-Zyme 1 PO DAILY 06/13/18 Clopidogrel Bisulfate [Clopidogrel] 75 mg PO DAILY 09/08/18 traMADol [Ultram] 50 tablet PO PRN PRN 09/08/18 Aurum Metallicum 2 drp PO DAILY 02/13/19 Cbd Oil DAILY 02/13/19 Sibling Family History: Cancer Maternal Family History: Diabetes, Heart Disease, Hypertension, Stroke Paternal Family History: Diabetes, Heart Disease, Pulmonary Disease Lives: Spouse/ Significant Other Smoking Status: Never smoker Tobacco Use: Non-smoker Alcohol: None Drugs: None Physical Exam Vital Signs Temp Pulse Resp BP 98.2 F 84 18 138/89 H 08/07/19 14:29 08/07/19 14:29 08/07/19 14:29 08/07/19 14:29 General: Alert, Oriented x3, Cooperative, No apparent distress Psych/Mental Status: Normal Affect, Appropriate Assessment/Plan Active Problems PAD (peripheral artery disease) (Chronic) Type 2 diabetes, controlled, with ulcer of heel (Chronic) Peripheral vascular disease (Chronic) Type II diabetes mellitus (Chronic) The patient appears to be tolerating hyperbaric oxygen therapy well, which will be continued as per the patient's medical plan.
--- NOTE | 2019-08-07 17:08 | PCM.WC.PN ---
(1) Type 2 diabetes, controlled, with ulcer of heel Status: Chronic Current Visit: Yes Code(s): E11.621 - Type 2 diabetes mellitus with foot ulcer; L97.409 - Non-pressure chronic ulcer of unspecified heel and midfoot with unspecified severity (2) PAD (peripheral artery disease) Status: Chronic Current Visit: Yes Code(s): I73.9 - Peripheral vascular disease, unspecified (3) Peripheral vascular disease Status: Chronic Current Visit: Yes Code(s): I73.9 - Peripheral vascular disease, unspecified (4) Type II diabetes mellitus Status: Chronic Current Visit: Yes Qualifiers: Diabetes mellitus correction insulin use: 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 He was recently treated for this same area with Theraskin application and was discharged approximately 8 weeks ago. He has noticed increased pain in his heel for the last 2 weeks and last his noted that the area had opened after his bird tender had debrided some callus from the area. He has been applying Aquacel and gauze to the ulcer. He does follow with Dr. Navas regularly and had a bypass of his right SFA and popliteal arteries earlier this year. He has had procedures for his arterial disease in past to both of his lower extremities. He has tried alternative treatments with supplements and chelation therapy in the past. He also has diabetes and recent A1C was 7.2% He does wear diabetic shoes. He has been undergoing chelation treatments by Dr. German in [place]. He denies fever, chills, erythema or heavy drainage. He reports significant pain and discomfort of his right heel and his entire right leg which no one can explain. In March 2019, he was hospitalized due to occlusion of his bypass graft in his right leg and Dr. Navas was able to open it 50%. He also has blockages in his left leg. Dr. Navas is unable to revascularize either leg at this time and he may ultimately require limb amputation if his vascular disease worsens. Progress of Wound: Gibson is here to follow up for nonhealing ulcer of his right heel. He continues to have significant pain in his right heel. Xrays did not show osteomyelitis or heel spur or other cause for his pain. He tolerated Fibracol dressings. His wound culture was positive for Enterobacter. He was started on cefdinir. His states there is a moderate amount of drainage daily but there has been no leakage through his dressings. Denies fever, chills, erythema. - Physical Exam Vital Signs Temp Pulse Resp BP 98.2 F 84 18 138/89 H 08/07/19 14:29 08/07/19 14:29 08/07/19 14:29 08/07/19 14:29 General: Alert, Oriented x3, Cooperative, No apparent distress HEENT: Atraumatic, Normocephalic Oral: Moist Mucosa Extremities: No Calf Tenderness, Cool, Diminished Peripheral Pulses, Edema Skin: Ulcer/ Wound Wound Measurements and Assessment WC - Nurse 1 - General Ulcer Measurement Start: 07/24/19 11:36 Freq: Status: Active Protocol: Activity Type Activity Date Activity User E-Sign Co-Sign Detail Recorded Client Recorded Date Recorded By Document 08/07/19 14:29 [facility] [id number] 08/07/19 14:35 [facility] 08/07/19 14:29 Wound Center Nurse 1 [Ulcer Assessment] #14- R HEEL -Combined with other wound No -Current Size (cm) - Length 1.6 -Current Size (cm) - Width 1.6 -Current Size (cm) - Depth 0.4 -Total Square Cm 2.56 -Tunneling No -Undermining/Tunneling No -Circular Undermining No -Exudate Amt Medium -Exudate Type Serosanguineous -Wound Margin Flat & Intact -Granulation Amt Medium (34-66%) -Granulation Quality [place] -Slough/Fibrin Yes -Necrosis Amt Small (1-33%) -Necrotic Tissue Type Adherent Slough -Structure Exposed N/A -Texture (Shahana-wound Skin Appearance) Assessed,Callus -Moisture (Shahana-wound Skin Appearance Assessed ) -Color (Shahana-wound Skin Appearance) Assessed -Temperature (Shahana-wound Skin No Abnormality Appearance) (Pt Warm) -Tenderness on Palpation (Shahana-wound No Skin Appearance) -Ulcer Cleansing Wound Cleanser -Foul Odor after Cleansing No -Anesthetic Used 5% Lidocaine Gel [Edema Assessment] -Lower Limb Edema Present Yes -Right Calf (cm) 26.3 -Right Ankle (cm) 19.5 WC - Nurse 2 - General Ulcer CM Notes Start: 07/24/19 11:36 Freq: Status: Active Protocol: Activity Type Activity Date Activity User E-Sign Co-Sign Detail Recorded Client Recorded Date Recorded By Document 08/07/19 15:12 MW [id number] 08/07/19 16:03 MW 08/07/19 15:12 Wound Center Nurse 2 [Procedure/Treatment] #14- R HEEL -Time 15:12 -Correct Patient Yes -Correct Side, Site, Position Yes -Correct Procedure Yes -Procedure Performed Yes -Type of Procedure Debridement -Clinical Debridement Subcutaneous -Post Debridement Size (cm) - Length 1.6 -Post Debridement Size (cm) - Width 1.5 -Post Debridement Size (cm) - Depth 0.4 -Total Square Cm 2.40 -Wound/Ulcer Outcome Not Healed -Ulcer Cleansing Rinsed/ Irrigated with Saline -Foul Odor after Cleansing No -Bioengineered Tissue No -Injectable Lidocaine (%) 2 -Lidocaine (ml) 5 -Bleeding Controlled with Pressure -Other undermining 9 to 11, 0.2cm, 1 to 2, 0.5cm -Offloading No [See Physician Procedure note for Specifics] Pain Scale: 0-10 Numeric [Pain] -Is Patient Pain Free? Yes Psych/Mental Status: Normal Affect, Appropriate Debridement Note Post-Debridement Measurements/Treatment WC - Nurse 2 - General Ulcer CM Notes Start: 07/24/19 11:36 Freq: Status: Active Protocol: Activity Type Activity Date Activity User E-Sign Co-Sign Detail Recorded Client Recorded Date Recorded By Document 07/24/19 12:37 DV [id number] 07/24/19 12:46 DV Document 07/31/19 12:07 MW [id number] 07/31/19 12:45 MW Document 08/07/19 15:12 MW [id number] 08/07/19 16:03 MW 07/24/19 07/31/19 08/07/19 12:37 12:07 15:12 Wound Center Nurse 2 #14- R HEEL -Time 12:42 12:10 15:12 -Correct Patient Yes Yes Yes -Correct Side, Site, Position Yes Yes Yes -Correct Procedure Yes Yes Yes -Procedure Performed Yes Yes Yes -Type of Procedure Debridement Debridement Debridement -Clinical Debridement Subcutaneous Subcutaneous Subcutaneous -Post Debridement Size (cm) - Length 0.6 2.0 1.6 -Post Debridement Size (cm) - Width 0.5 1.5 1.5 -Post Debridement Size (cm) - Depth 0.5 0.8 0.4 -Total Square Cm 0.30 3.00 2.40 -Wound/Ulcer Outcome Not Healed Not Healed Not Healed -Ulcer Cleansing Rinsed/ Rinsed/ Rinsed/ Irrigated with Irrigated with Irrigated with Saline Saline Saline -Foul Odor after Cleansing No No No -Bioengineered Tissue No No No -Injectable Lidocaine (%) 2 2 -Lidocaine (ml) 5 5 -Bleeding Controlled with Pressure Pressure Pressure -Other UNDERMINING 9- undermining 9 11, 0.7CM & 1-2 to 11, 0.2cm, 1 , 0.7CM to 2, 0.5cm -Offloading No No No -Treatment Response Procedure Procedure Tolerated Well Tolerated Well Pain Scale: 0-10 Numeric Is Patient Pain Free? Yes Yes Yes Wound debrided: right heel Laterality: Right Wound Grade/Stage: Grade 3 Type of Debridement: Excisional debridement Anesthesia Used: 4% Lidocaine Solution, 5% Lidocaine Gel, Cetacaine - 2% lidocaine 5 ml Depth: Down to and including healthy tissue, in the subcutaneous layer, to muscle Percentage of wound debrided: 100 Instrument Used: 5mm curette Tissue Removed: yellow slough, devitalized tissue Severity: Fat Layer Exposed Amount of bleeding with debridement: Mild Bleeding Controlled with: Compression and gauze Patient tolerated procedure well Assessment/Plan Clinical Impression(s) from Imaging Studies Chest X-Ray 07/24/19 13:35 IMPRESSION: 1. No acute cardiopulmonary process. 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 Diabetes mellitus - uncontrolled. Peripheral vascular disease - status post revascularization 08/07/18 Plan: Gibson's ulcer was evaluated and debrided today with improvement in his ulcer. He is tolerating HBO treatment. He had his second HBO treatment today. Ulcer will be dressed using Fibracol to the ulcer bed and then aquacel extra over that and then covered with gauze and an ABD nurse hat to his heel. Will plan on using a Snap vac on Saturday to manage drainage but if he does not tolerate this then he will just use Fibracol changed daily. A COTY vac may also be an option to consider as well. He will continue to use the surgical shoe for offloading. He would benefit from hyperbaric oxygen treatment to help heal his wound and salvage his limb from amputation given his comorbid arterial disease and DFU. Tramadol 50 mg #84 and Oxycodone 5 mg #45 were prescribed for treatment of pain with debridements on 07/31/2019. OARRS was appropriate. No signs of diversion or abuse. Encouraged to call with any increase in pain or drainage, fever or chills. He will benefit from application of an advanced wound healing product such as Primatrix Ag to help heal his ulcer and prevent limb loss in conjunction with hyperbaric oxygen treatment as well as wound vac treatment to heal his ulcer and manage the moderate to heavy drainage that is coming from ulcer. F/U in 1 week.
[2019-08-10 12:01] LABS: Bedside Glucose 194 mg/dL (70-110)
[2019-08-10 14:45] LABS: Bedside Glucose 115 mg/dL (70-110)
[2019-08-10 15:06] VITALS: BP 137/73; BP 140/94; PULSE 62; PULSE 84; RESP 18; TEMP 37; TEMP 37.3
--- NOTE | 2019-08-11 10:34 | PCM.HBO.PN ---
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 Tolerance of hyperbaric oxygen therapy: Hyperbaric oxygen treatment was provided as per the facility's protocol at 2.0 ANA in 100% oxygen for 90 minutes. The patient tolerated hyperbaric oxygen well, without complications or complaints. Upon emergence of the hyperbaric chamber, the patient's vital signs remained stable. He was discharged in good condition. See documented blood glucose levels. 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) Diabetes with ulcer of toe (Chronic) PAD (peripheral artery disease) (Chronic) Cellulitis and abscess of foot (Chronic) Type 2 diabetes, controlled, with ulcer of heel (Chronic) Non-healing open wound of heel (Chronic) Hyperlipidemia (Chronic) Peripheral vascular disease (Chronic) Hypertension (Chronic) Coronary artery disease (Chronic) Status post CABG Type II diabetes mellitus (Chronic) Allergies/Adverse Reactions: Allergies rivaroxaban [From Xarelto] Allergy (Verified 02/13/19 16:41) Other Home Medications: Ambulatory Orders Medication Instructions Recorded #17 3 tab PO DAILY 06/13/18 Aspirin [Lite Coat Aspirin] 325 mg PO DAILY 06/13/18 [id number] 1 PO DAILY 06/13/18 Calcium Lactate 1 PO DAILY 06/13/18 Cat C 2 PO DAILY 06/13/18 Cat E2 8 PO DAILY 06/13/18 Cholecalciferol (Vitamin D3) 5,000 mg PO DAILY 06/13/18 [Vitamin D3] Colon Clear 1 tab PO PRN PRN 06/13/18 Inositol 2 PO PRN PRN 06/13/18 Intestinal Cleanse No 1 3 tab PO PRN PRN 06/13/18 Koncentrated K 1 tab PO DAILY 06/13/18 Mag Lactate 1 PO DAILY 06/13/18 Nattokinase 2 tab PO DAILY 06/13/18 Potassium-Derick 1 PO DAILY 06/13/18 Tuna 03 Oil 3 PO DAILY 06/13/18 Zn-Zyme 1 PO DAILY 06/13/18 Clopidogrel Bisulfate [Clopidogrel] 75 mg PO DAILY 09/08/18 traMADol [Ultram] 50 tablet PO PRN PRN 09/08/18 Aurum Metallicum 2 drp PO DAILY 02/13/19 Cbd Oil DAILY 02/13/19 Sibling Family History: Cancer Maternal Family History: Diabetes, Heart Disease, Hypertension, Stroke Paternal Family History: Diabetes, Heart Disease, Pulmonary Disease Lives: Spouse/ Significant Other Smoking Status: Never smoker Tobacco Use: Non-smoker Alcohol: None Drugs: None Physical Exam Vital Signs Temp Pulse Resp BP 98.6 F 84 18 137/73 H 08/10/19 15:06 08/10/19 15:06 08/10/19 15:06 08/10/19 15:06 General: Alert, Oriented x3, Cooperative, No apparent distress HEENT: Atraumatic, TM's Clear Lungs: Clear to auscultation, Normal air movement Cardiovascular: Regular rate, Regular Rhythm Psych/Mental Status: Normal Affect, Appropriate, Alert and oriented to time, place, person, mood and affect Assessment/Plan Active Problems PAD (peripheral artery disease) (Chronic) Type 2 diabetes, controlled, with ulcer of heel (Chronic) Peripheral vascular disease (Chronic) Type II diabetes mellitus (Chronic) The patient appears to be tolerating hyperbaric oxygen therapy well, which will be continued as per the patient's medical plan.
[2019-08-11 11:40] LABS: Bedside Glucose 211 mg/dL (70-110)
[2019-08-11 14:16] LABS: Bedside Glucose 92 mg/dL (70-110)
[2019-08-11 14:27] VITALS: BP 130/81; BP 135/79; PULSE 80; PULSE 81; RESP 16; TEMP 37.1
--- NOTE | 2019-08-11 14:36 | PCM.HBO.PN ---
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 Tolerance of hyperbaric oxygen therapy: Hyperbaric oxygen treatment was provided as per the facility's protocol at 2.0 ANA in 100% oxygen for 90 minutes. The patient tolerated hyperbaric oxygen well, without complications or complaints. Upon emergence of the hyperbaric chamber, the patient's vital signs remained stable. He was discharged in good condition. See documented blood glucose levels. 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) Diabetes with ulcer of toe (Chronic) PAD (peripheral artery disease) (Chronic) Cellulitis and abscess of foot (Chronic) Type 2 diabetes, controlled, with ulcer of heel (Chronic) Non-healing open wound of heel (Chronic) Hyperlipidemia (Chronic) Peripheral vascular disease (Chronic) Hypertension (Chronic) Coronary artery disease (Chronic) Status post CABG Type II diabetes mellitus (Chronic) Allergies/Adverse Reactions: Allergies rivaroxaban [From Xarelto] Allergy (Verified 02/13/19 16:41) Other Home Medications: Ambulatory Orders Medication Instructions Recorded #17 3 tab PO DAILY 06/13/18 Aspirin [Lite Coat Aspirin] 325 mg PO DAILY 06/13/18 [id number] 1 PO DAILY 06/13/18 Calcium Lactate 1 PO DAILY 06/13/18 Cat C 2 PO DAILY 06/13/18 Cat E2 8 PO DAILY 06/13/18 Cholecalciferol (Vitamin D3) 5,000 mg PO DAILY 06/13/18 [Vitamin D3] Colon Clear 1 tab PO PRN PRN 06/13/18 Inositol 2 PO PRN PRN 06/13/18 Intestinal Cleanse No 1 3 tab PO PRN PRN 06/13/18 Koncentrated K 1 tab PO DAILY 06/13/18 Mag Lactate 1 PO DAILY 06/13/18 Nattokinase 2 tab PO DAILY 06/13/18 Potassium-Derick 1 PO DAILY 06/13/18 Tuna 03 Oil 3 PO DAILY 06/13/18 Zn-Zyme 1 PO DAILY 06/13/18 Clopidogrel Bisulfate [Clopidogrel] 75 mg PO DAILY 09/08/18 traMADol [Ultram] 50 tablet PO PRN PRN 09/08/18 Aurum Metallicum 2 drp PO DAILY 02/13/19 Cbd Oil DAILY 02/13/19 Sibling Family History: Cancer Maternal Family History: Diabetes, Heart Disease, Hypertension, Stroke Paternal Family History: Diabetes, Heart Disease, Pulmonary Disease Lives: Spouse/ Significant Other Smoking Status: Never smoker Tobacco Use: Non-smoker Alcohol: None Drugs: None Physical Exam Vital Signs Temp Pulse Resp BP 98.7 F 80 16 135/79 H 08/11/19 14:27 08/11/19 14:27 08/11/19 14:27 08/11/19 14:27 General: Alert, Oriented x3, Cooperative, No apparent distress HEENT: Atraumatic, TM's Clear Lungs: Clear to auscultation, Normal air movement Cardiovascular: Regular rate, Regular Rhythm Psych/Mental Status: Normal Affect, Appropriate, Alert and oriented to time, place, person, mood and affect Assessment/Plan Active Problems PAD (peripheral artery disease) (Chronic) Type 2 diabetes, controlled, with ulcer of heel (Chronic) Peripheral vascular disease (Chronic) Type II diabetes mellitus (Chronic) The patient appears to be tolerating hyperbaric oxygen therapy well, which will be continued as per the patient's medical plan.
[2019-08-12 12:10] LABS: Bedside Glucose 149 mg/dL (70-110)
[2019-08-12 14:50] LABS: Bedside Glucose 117 mg/dL (70-110)
--- NOTE | 2019-08-12 15:16 | PCM.HBO.PN ---
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 Tolerance of hyperbaric oxygen therapy: Hyperbaric oxygen treatment was provided as per the facility's protocol at 2.0 AAN in 100% oxygen for 90 minutes. The patient tolerated hyperbaric oxygen well, without complications or complaints. Upon emergence of the hyperbaric chamber, the patient's vital signs remained stable. He was discharged in good condition. See documented blood glucose levels. 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) Diabetes with ulcer of toe (Chronic) PAD (peripheral artery disease) (Chronic) Cellulitis and abscess of foot (Chronic) Type 2 diabetes, controlled, with ulcer of heel (Chronic) Non-healing open wound of heel (Chronic) Hyperlipidemia (Chronic) Peripheral vascular disease (Chronic) Hypertension (Chronic) Coronary artery disease (Chronic) Status post CABG Type II diabetes mellitus (Chronic) Allergies/Adverse Reactions: Allergies rivaroxaban [From Xarelto] Allergy (Verified 02/13/19 16:41) Other Home Medications: Ambulatory Orders Medication Instructions Recorded #17 3 tab PO DAILY 06/13/18 Aspirin [Lite Coat Aspirin] 325 mg PO DAILY 06/13/18 [id number] 1 PO DAILY 06/13/18 Calcium Lactate 1 PO DAILY 06/13/18 Cat C 2 PO DAILY 06/13/18 Cat E2 8 PO DAILY 06/13/18 Cholecalciferol (Vitamin D3) 5,000 mg PO DAILY 06/13/18 [Vitamin D3] Colon Clear 1 tab PO PRN PRN 06/13/18 Inositol 2 PO PRN PRN 06/13/18 Intestinal Cleanse No 1 3 tab PO PRN PRN 06/13/18 Koncentrated K 1 tab PO DAILY 06/13/18 Mag Lactate 1 PO DAILY 06/13/18 Nattokinase 2 tab PO DAILY 06/13/18 Potassium-Derick 1 PO DAILY 06/13/18 Tuna 03 Oil 3 PO DAILY 06/13/18 Zn-Zyme 1 PO DAILY 06/13/18 Clopidogrel Bisulfate [Clopidogrel] 75 mg PO DAILY 09/08/18 traMADol [Ultram] 50 tablet PO PRN PRN 09/08/18 Aurum Metallicum 2 drp PO DAILY 02/13/19 Cbd Oil DAILY 02/13/19 Sibling Family History: Cancer Maternal Family History: Diabetes, Heart Disease, Hypertension, Stroke Paternal Family History: Diabetes, Heart Disease, Pulmonary Disease Lives: Spouse/ Significant Other Smoking Status: Never smoker Tobacco Use: Non-smoker Alcohol: None Drugs: None Physical Exam Vital Signs Temp Pulse Resp BP 98.7 F 80 16 135/79 H 08/11/19 14:27 08/11/19 14:27 08/11/19 14:27 08/11/19 14:27 General: Alert, Oriented x3, Cooperative, No apparent distress HEENT: Atraumatic, TM's Clear Lungs: Clear to auscultation, Normal air movement Cardiovascular: Regular rate, Regular Rhythm Psych/Mental Status: Normal Affect, Appropriate, Alert and oriented to time, place, person, mood and affect Assessment/Plan Active Problems PAD (peripheral artery disease) (Chronic) Type 2 diabetes, controlled, with ulcer of heel (Chronic) Peripheral vascular disease (Chronic) Type II diabetes mellitus (Chronic) The patient appears to be tolerating hyperbaric oxygen therapy well, which will be continued as per the patient's medical plan.
[2019-08-12 15:46] VITALS: BP 136/69; BP 139/77; PULSE 74; RESP 16; TEMP 36; TEMP 37.2
[2019-08-13 11:56] LABS: Bedside Glucose 144 mg/dL (70-110)
[2019-08-13 12:35] VITALS: BP 125/72; BP 140/77; PULSE 71; PULSE 76; RESP 18; TEMP 36.6; TEMP 36.9
[2019-08-13 14:21] LABS: Bedside Glucose 107 mg/dL (70-110)
--- NOTE | 2019-08-13 14:27 | PCM.HBO.PN ---
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 Tolerance of hyperbaric oxygen therapy: Hyperbaric oxygen treatment was provided as per the facility's protocol at 2.0 ANA in 100% oxygen for 90 minutes. The patient tolerated hyperbaric oxygen well, without complications or complaints. Upon emergence of the hyperbaric chamber, the patient's vital signs remained stable. He was discharged in good condition. See documented blood glucose levels. 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) Diabetes with ulcer of toe (Chronic) PAD (peripheral artery disease) (Chronic) Cellulitis and abscess of foot (Chronic) Type 2 diabetes, controlled, with ulcer of heel (Chronic) Non-healing open wound of heel (Chronic) Hyperlipidemia (Chronic) Peripheral vascular disease (Chronic) Hypertension (Chronic) Coronary artery disease (Chronic) Status post CABG Type II diabetes mellitus (Chronic) Allergies/Adverse Reactions: Allergies rivaroxaban [From Xarelto] Allergy (Verified 02/13/19 16:41) Other Home Medications: Ambulatory Orders Medication Instructions Recorded #17 3 tab PO DAILY 06/13/18 Aspirin [Lite Coat Aspirin] 325 mg PO DAILY 06/13/18 [id number] 1 PO DAILY 06/13/18 Calcium Lactate 1 PO DAILY 06/13/18 Cat C 2 PO DAILY 06/13/18 Cat E2 8 PO DAILY 06/13/18 Cholecalciferol (Vitamin D3) 5,000 mg PO DAILY 06/13/18 [Vitamin D3] Colon Clear 1 tab PO PRN PRN 06/13/18 Inositol 2 PO PRN PRN 06/13/18 Intestinal Cleanse No 1 3 tab PO PRN PRN 06/13/18 Koncentrated K 1 tab PO DAILY 06/13/18 Mag Lactate 1 PO DAILY 06/13/18 Nattokinase 2 tab PO DAILY 06/13/18 Potassium-Derick 1 PO DAILY 06/13/18 Tuna 03 Oil 3 PO DAILY 06/13/18 Zn-Zyme 1 PO DAILY 06/13/18 Clopidogrel Bisulfate [Clopidogrel] 75 mg PO DAILY 09/08/18 traMADol [Ultram] 50 tablet PO PRN PRN 09/08/18 Aurum Metallicum 2 drp PO DAILY 02/13/19 Cbd Oil DAILY 02/13/19 Sibling Family History: Cancer Maternal Family History: Diabetes, Heart Disease, Hypertension, Stroke Paternal Family History: Diabetes, Heart Disease, Pulmonary Disease Lives: Spouse/ Significant Other Smoking Status: Never smoker Tobacco Use: Non-smoker Alcohol: None Drugs: None Physical Exam Vital Signs Temp Pulse Resp BP 98.5 F 71 18 125/72 H 08/13/19 12:35 08/13/19 12:35 08/13/19 12:35 08/13/19 12:35 General: Alert, Oriented x3, Cooperative, No apparent distress HEENT: Atraumatic, TM's Clear Lungs: Clear to auscultation, Normal air movement Cardiovascular: Regular rate, Regular Rhythm Psych/Mental Status: Normal Affect, Appropriate, Alert and oriented to time, place, person, mood and affect Assessment/Plan Active Problems PAD (peripheral artery disease) (Chronic) Type 2 diabetes, controlled, with ulcer of heel (Chronic) Peripheral vascular disease (Chronic) Type II diabetes mellitus (Chronic) The patient appears to be tolerating hyperbaric oxygen therapy well, which will be continued as per the patient's medical plan.
[2019-08-14 10:21] LABS: Bedside Glucose 166 mg/dL (70-110)
[2019-08-14 12:01] VITALS: BP 137/66; BP 167/91; PULSE 76; PULSE 77; RESP 18; TEMP 36.5; TEMP 36.6
[2019-08-14 12:55] VITALS: BP 161/91; PULSE 76; RESP 18; TEMP 36.6; BMI 24.9
--- NOTE | 2019-08-16 17:26 | PCM.HBO.PN ---
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 Tolerance of hyperbaric oxygen therapy: Hyperbaric oxygen treatment was provided as per the facility's protocol at 2.0 ANA in 100% oxygen for 90 minutes. The patient tolerated hyperbaric oxygen well, without complications or complaints. Upon emergence of the hyperbaric chamber, the patient's vital signs remained stable. He was discharged in good condition. See documented blood glucose levels. 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) Diabetes with ulcer of toe (Chronic) PAD (peripheral artery disease) (Chronic) Cellulitis and abscess of foot (Chronic) Type 2 diabetes, controlled, with ulcer of heel (Chronic) Non-healing open wound of heel (Chronic) Hyperlipidemia (Chronic) Peripheral vascular disease (Chronic) Hypertension (Chronic) Coronary artery disease (Chronic) Status post CABG Type II diabetes mellitus (Chronic) Allergies/Adverse Reactions: Allergies rivaroxaban [From Xarelto] Allergy (Verified 02/13/19 16:41) Other Home Medications: Ambulatory Orders Medication Instructions Recorded #17 3 tab PO DAILY 06/13/18 Aspirin [Lite Coat Aspirin] 325 mg PO DAILY 06/13/18 [id number] 1 PO DAILY 06/13/18 Calcium Lactate 1 PO DAILY 06/13/18 Cat C 2 PO DAILY 06/13/18 Cat E2 8 PO DAILY 06/13/18 Cholecalciferol (Vitamin D3) 5,000 mg PO DAILY 06/13/18 [Vitamin D3] Colon Clear 1 tab PO PRN PRN 06/13/18 Inositol 2 PO PRN PRN 06/13/18 Intestinal Cleanse No 1 3 tab PO PRN PRN 06/13/18 Koncentrated K 1 tab PO DAILY 06/13/18 Mag Lactate 1 PO DAILY 06/13/18 Nattokinase 2 tab PO DAILY 06/13/18 Potassium-Derick 1 PO DAILY 06/13/18 Tuna 03 Oil 3 PO DAILY 06/13/18 Zn-Zyme 1 PO DAILY 06/13/18 Clopidogrel Bisulfate [Clopidogrel] 75 mg PO DAILY 09/08/18 traMADol [Ultram] 50 tablet PO PRN PRN 09/08/18 Aurum Metallicum 2 drp PO DAILY 02/13/19 Cbd Oil DAILY 02/13/19 Sibling Family History: Cancer Maternal Family History: Diabetes, Heart Disease, Hypertension, Stroke Paternal Family History: Diabetes, Heart Disease, Pulmonary Disease Lives: Spouse/ Significant Other Smoking Status: Never smoker Tobacco Use: Non-smoker Alcohol: None Drugs: None Physical Exam Vital Signs Temp Pulse Resp BP 97.8 F 76 18 161/91 H 08/14/19 12:55 08/14/19 12:55 08/14/19 12:55 08/14/19 12:55 General: Alert, Oriented x3, Cooperative, No apparent distress Psych/Mental Status: Normal Affect, Appropriate Assessment/Plan The patient appears to be tolerating hyperbaric oxygen therapy well, which will be continued as per the patient's medical plan.
--- NOTE | 2019-08-16 17:32 | PCM.WC.PN ---
(1) Type 2 diabetes, controlled, with ulcer of heel Status: Chronic Code(s): E11.621 - Type 2 diabetes mellitus with foot ulcer; L97.409 - Non-pressure chronic ulcer of unspecified heel and midfoot with unspecified severity (2) PAD (peripheral artery disease) Status: Chronic Code(s): I73.9 - Peripheral vascular disease, unspecified (3) Peripheral vascular disease Status: Chronic Code(s): I73.9 - Peripheral vascular disease, unspecified (4) Type II diabetes mellitus Status: Chronic Qualifiers: Diabetes mellitus skilled nursing insulin use: without manager intermediate use Diabetes mellitus complication status: with skin complications Diabetes mellitus complication detail: with foot ulcer Qualified Code(s): E11.621 - Type 2 diabetes mellitus with foot ulcer; L97.509 - Non-pressure chronic ulcer of other part of unspecified foot with unspecified severity Code(s): E11.9 - Type 2 diabetes mellitus without complications Comment: Valdez grade 3 Type of Wound Date of Service: 08/14/19 Chief Complaint: Nonhealing ulcer right heel History of Wound: Gibson is here for evaluation of an ulcer of his right heel. He was recently treated for this same area with Theraskin application and was discharged approximately 8 weeks ago. He has noticed increased pain in his heel for the last 2 weeks and last his noted that the area had opened after his dairy tester had debrided some callus from the area. He has been applying Aquacel and gauze to the ulcer. He does follow with Dr. Navas regularly and had a bypass of his right SFA and popliteal arteries earlier this year. He has had procedures for his arterial disease in past to both of his lower extremities. He has tried alternative treatments with supplements and chelation therapy in the past. He also has diabetes and recent A1C was 7.2% He does wear diabetic shoes. He had been undergoing chelation treatments by Dr. German in [place]. He denies fever, chills, erythema or heavy drainage. He reports significant pain and discomfort of his right heel and his entire right leg which no one can explain. In March 2019, he was hospitalized due to occlusion of his bypass graft in his right leg and Dr. Navas was able to open it 50%. He also has blockages in his left leg. Dr. Navas is unable to revascularize either leg at this time and he may ultimately require limb amputation if his vascular disease worsens. Progress of Wound: Gibson is here to follow up for nonhealing ulcer of his right heel. He continues to have significant pain in his right heel but not at the ulcer site as much recently. He is also undergoing hyperbaric oxygen treatments and he is tolerating these well with improvement in his ulcer. Xrays did not show osteomyelitis or heel spur or other cause for his pain. He is tolerating Fibracol dressings. His wound culture was positive for Enterobacter and he remains on cefdinir. His states there is a moderate to heavy amount of drainage daily but there has been no leakage through his dressings. Denies fever, chills, erythema. - Physical Exam Vital Signs Temp Pulse Resp BP 97.8 F 76 18 161/91 H 08/14/19 12:55 08/14/19 12:55 08/14/19 12:55 08/14/19 12:55 General: Alert, Oriented x3, Cooperative, No apparent distress Oral: Dry Mucosa Extremities: Capillary Refill Less than 3 Seconds, Cool, Edema Skin: Ulcer/ Wound Wound Measurements and Assessment WC - Nurse 1 - General Ulcer Measurement Start: 07/24/19 11:36 Freq: Status: Active Protocol: Activity Type Activity Date Activity User E-Sign Co-Sign Detail Recorded Client Recorded Date Recorded By Document 08/14/19 12:55 DV [id number] 08/14/19 13:14 DV 08/14/19 12:55 Wound Center Nurse 1 [Ulcer Assessment] #14- R HEEL -Combined with other wound No -Current Size (cm) - Length 1.5 -Current Size (cm) - Width 1.5 -Current Size (cm) - Depth 0.4 -Total Square Cm 2.25 -Photo Taken No -Epithelialization None Present -Tunneling No -Undermining/Tunneling No -Circular Undermining No -Classification - Thickness Full Thickness without Exposed Support Structure -Exudate Amt Large -Exudate Type Serosanguineous -Wound Margin Flat & Intact -Granulation Amt None Present (0 %) -Granulation Quality N/A -Slough/Fibrin No -Necrosis Amt Medium (34-66%) -Necrotic Tissue Type Adherent Slough -Structure Exposed None/Limited to Skin Breakdown -Texture (Shahana-wound Skin Appearance) Assessed, Localized Edema -Moisture (Shahana-wound Skin Appearance Weeping ) -Color (Shahana-wound Skin Appearance) No Abnormality, Assessed -Temperature (Shahana-wound Skin No Abnormality Appearance) (Pt Warm) -Tenderness on Palpation (Shahana-wound Yes Skin Appearance) -Ulcer Cleansing Rinsed/ Irrigated with Saline -Foul Odor after Cleansing No -Anesthetic Used 4% Lidocaine Solution WC - Nurse 2 - General Ulcer CM Notes Start: 07/24/19 11:36 Freq: Status: Active Protocol: Activity Type Activity Date Activity User E-Sign Co-Sign Detail Recorded Client Recorded Date Recorded By Document 08/14/19 13:18 DV [id number] 08/14/19 13:37 DV 08/14/19 13:18 Wound Center Nurse 2 [Procedure/Treatment] -Time 13:24 -Correct Patient Yes -Correct Side, Site, Position Yes -Correct Procedure Yes -Procedure Performed Yes -Type of Procedure Debridement -Clinical Debridement Subcutaneous -Post Debridement Size (cm) - Length 1.5 -Post Debridement Size (cm) - Width 1.5 -Post Debridement Size (cm) - Depth 0.5 -Total Square Cm 2.25 -Wound/Ulcer Outcome Not Healed -Ulcer Cleansing Rinsed/ Irrigated with Saline -Foul Odor after Cleansing No -Bioengineered Tissue No -Bleeding Controlled with Pressure -Offloading No -Treatment Response Procedure Not Tolerated Well [See Physician Procedure note for Specifics] Pain Scale: 0-10 Numeric [Pain] -Is Patient Pain Free? Yes [Location] WOUND -Description Sharp,Burning, Crushing -Intensity 10 Query Text:If >3, intervention needed -Radiation Location Right lateral -Duration (hours) Chronic -Pain Behavior Moaning,Crying, Withdrawal from Touch,Facial Grimacing -Pain Aggravating Factors ADL's,Standing, Sitting,Walking ,Debridement -Alleviating Factors/Interventions Medication -Effectiveness of Alleviating Factor/ Moderately Intervention effective -Comments Patient admitted to taking 4 oxycodone's by 1330 Psych/Mental Status: Normal Affect, Appropriate Debridement Note Post-Debridement Measurements/Treatment - Nurse 2 - General Ulcer CM Notes Start: 07/24/19 11:36 Freq: Status: Active Protocol: Activity Type Activity Date Activity User E-Sign Co-Sign Detail Recorded Client Recorded Date Recorded By Document 07/24/19 12:37 DV [id number] 07/24/19 12:46 DV Document 07/31/19 12:07 MW [id number] 07/31/19 12:45 MW Document 08/07/19 15:12 MW [id number] 08/07/19 16:03 MW Document 08/14/19 13:18 DV [id number] 08/14/19 13:37 DV 07/24/19 07/31/19 08/07/19 12:37 12:07 15:12 Wound Center Nurse 2 #14- R HEEL -Time 12:42 12:10 15:12 -Correct Patient Yes Yes Yes -Correct Side, Site, Position Yes Yes Yes -Correct Procedure Yes Yes Yes -Procedure Performed Yes Yes Yes -Type of Procedure Debridement Debridement Debridement -Clinical Debridement Subcutaneous Subcutaneous Subcutaneous -Post Debridement Size (cm) - Length 0.6 2.0 1.6 -Post Debridement Size (cm) - Width 0.5 1.5 1.5 -Post Debridement Size (cm) - Depth 0.5 0.8 0.4 -Total Square Cm 0.30 3.00 2.40 -Wound/Ulcer Outcome Not Healed Not Healed Not Healed -Ulcer Cleansing Rinsed/ Rinsed/ Rinsed/ Irrigated with Irrigated with Irrigated with Saline Saline Saline -Foul Odor after Cleansing No No No -Bioengineered Tissue No No No -Injectable Lidocaine (%) 2 2 -Lidocaine (ml) 5 5 -Bleeding Controlled with Pressure Pressure Pressure -Other UNDERMINING 9- undermining 9 11, 0.7CM & 1-2 to 11, 0.2cm, 1 , 0.7CM to 2, 0.5cm -Offloading No No No -Treatment Response Procedure Procedure Tolerated Well Tolerated Well Pain Scale: 0-10 Numeric Is Patient Pain Free? Yes Yes Yes WOUND -Description -Intensity Query Text:If >3, intervention needed -Radiation Location -Duration (hours) -Pain Behavior -Pain Aggravating Factors -Alleviating Factors/Interventions -Effectiveness of Alleviating Factor/ Intervention -Comments 08/14/19 13:18 Wound Center Nurse 2 #14- R HEEL -Time 13:24 -Correct Patient Yes -Correct Side, Site, Position Yes -Correct Procedure Yes -Procedure Performed Yes -Type of Procedure Debridement -Clinical Debridement Subcutaneous -Post Debridement Size (cm) - Length 1.5 -Post Debridement Size (cm) - Width 1.5 -Post Debridement Size (cm) - Depth 0.5 -Total Square Cm 2.25 -Wound/Ulcer Outcome Not Healed -Ulcer Cleansing Rinsed/ Irrigated with Saline -Foul Odor after Cleansing No -Bioengineered Tissue No -Injectable Lidocaine (%) -Lidocaine (ml) -Bleeding Controlled with Pressure -Other -Offloading No -Treatment Response Procedure Not Tolerated Well Pain Scale: 0-10 Numeric Is Patient Pain Free? Yes WOUND -Description Sharp,Burning, Crushing -Intensity 10 Query Text:If >3, intervention needed -Radiation Location Right lateral -Duration (hours) Chronic -Pain Behavior Moaning,Crying, Withdrawal from Touch,Facial Grimacing -Pain Aggravating Factors ADL's,Standing, Sitting,Walking ,Debridement -Alleviating Factors/Interventions Medication -Effectiveness of Alleviating Factor/ Moderately Intervention effective -Comments Patient admitted to taking 4 oxycodone's by 1330 Wound debrided: right heel Laterality: Right Wound Grade/Stage: Valdez Grade 3 Type of Debridement: Excisional debridement Anesthesia Used: 4% Lidocaine Solution, 5% Lidocaine Gel, Cetacaine - lidocaine 2% 5 ml Depth: Down to and including healthy tissue, in the subcutaneous layer, to muscle Percentage of wound debrided: 100 Instrument Used: 5mm curette Tissue Removed: yellow slough, devitalized tissue Severity: Fat Layer Exposed Amount of bleeding with debridement: Mild Bleeding Controlled with: Compression and gauze Patient tolerated procedure well Assessment/Plan Clinical Impression(s) from Imaging Studies Chest X-Ray 07/24/19 13:35 IMPRESSION: 1. No acute cardiopulmonary process. 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 Diabetes mellitus - controlled. Peripheral vascular disease - status post revascularization 08/07/18 and 03/2019 Plan: Gibson's ulcer was evaluated and debrided today with improvement in his ulcer. He is tolerating HBO treatment. He had his seventh HBO treatment today. Ulcer will be dressed using Fibracol to the ulcer bed and then SNAP wound vac was placed over his heel ulcer. He will ultimately need to use a COTY wound vac if he tolerates the vac to be able to leave the vac and tubing in place while he undergoes HBO treatment as the SNAP vac that he would need is not able to go in the HBO chamber. He will continue to use the surgical shoe for offloading. He would continue to benefit from hyperbaric oxygen treatment to help heal his wound and salvage his limb from amputation given his comorbid arterial disease and DFU. Tramadol 50 mg #84 and Oxycodone 5 mg #45 were prescribed for treatment of pain with debridements on 08/14/2019. OARRS was appropriate. No signs of diversion or abuse. Encouraged to call with any increase in pain or drainage, fever or chills. He will benefit from application of an advanced wound healing product such as Primatrix Ag or Epificord to help heal his ulcer and prevent limb loss in conjunction with hyperbaric oxygen treatment as well as wound vac treatment to heal his ulcer and manage the moderate to heavy drainage that is coming from ulcer. F/U in 1 week.
== END 2019-08-15 23:59 ==
LOC: WC 10:00
PROVIDERS: Family Provider Family Medicine; PCP Family Medicine; Referring Provider Family Medicine; Visit Provider Family Medicine
DX: E11.621 Type 2 diabetes mellitus with foot ulcer (principal); E11.51 Type 2 diabetes mellitus with diabetic peripheral angiopathy without gangrene; E78.5 Hyperlipidemia, unspecified; I25.10 Atherosclerotic heart disease of native coronary artery without angina pectoris; Z95.1 Presence of aortocoronary bypass graft; I10 Essential (primary) hypertension; L97.412 Non-pressure chronic ulcer of right heel and midfoot with fat layer exposed; Z79.899 Other long term (current) drug therapy; Z79.82 Long term (current) use of aspirin; Z79.02 Long term (current) use of antithrombotics/antiplatelets
CPT/HCPCS: 11042; 71046; 82962; 87070; 87075; 87077; 87186; 87205; 97605; 99183; 99211; 99212; G0277; G0463

== ENCOUNTER 2019-09-14 10:00 | Outpatient (RCR) | payer MEDICARE, OTHER, SELFPAY ==
[2019-08-16 00:26] VITALS: BP 161/91; PULSE 76; RESP 18; TEMP 36.6
[2019-08-17 12:31] VITALS: BP 120/68; BP 144/75; PULSE 68; PULSE 77; RESP 16; RESP 18; TEMP 36.6; TEMP 36.8
[2019-08-17 12:31] LABS: Bedside Glucose 179 mg/dL (70-110)
--- NOTE | 2019-08-17 12:45 | PCM.HBO.PN ---
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 Progress: Today represents the patient's 8th hyperbaric oxygen treatment out of 40 planned sessions. Tolerance of hyperbaric oxygen therapy: Hyperbaric oxygen treatment was provided as per the facility's protocol at 2.0 ANA in 100% oxygen for 90 minutes. The patient tolerated hyperbaric oxygen well, without complications or complaints. Upon emergence of the hyperbaric chamber, the patient's vital signs remained stable. He was discharged in good condition. Blood glucose was 179 before entering the chamber and was 96 after his treatment. He was asymptomatic with this decrease in his blood glucose level. 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) Diabetes with ulcer of toe (Chronic) PAD (peripheral artery disease) (Chronic) Cellulitis and abscess of foot (Chronic) Type 2 diabetes, controlled, with ulcer of heel (Chronic) Non-healing open wound of heel (Chronic) Hyperlipidemia (Chronic) Peripheral vascular disease (Chronic) Hypertension (Chronic) Coronary artery disease (Chronic) Status post CABG Type II diabetes mellitus (Chronic) Valdez grade 3 Allergies/Adverse Reactions: Allergies rivaroxaban [From Xarelto] Allergy (Verified 02/13/19 16:41) Other Home Medications: Ambulatory Orders Medication Instructions Recorded #17 3 tab PO DAILY 06/13/18 Aspirin [Lite Coat Aspirin] 325 mg PO DAILY 06/13/18 [id number] 1 PO DAILY 06/13/18 Calcium Lactate 1 PO DAILY 06/13/18 Cat C 2 PO DAILY 06/13/18 Cat E2 8 PO DAILY 06/13/18 Cholecalciferol (Vitamin D3) 5,000 mg PO DAILY 06/13/18 [Vitamin D3] Colon Clear 1 tab PO PRN PRN 06/13/18 Inositol 2 PO PRN PRN 06/13/18 Intestinal Cleanse No 1 3 tab PO PRN PRN 06/13/18 Koncentrated K 1 tab PO DAILY 06/13/18 Mag Lactate 1 PO DAILY 06/13/18 Nattokinase 2 tab PO DAILY 06/13/18 Potassium-Derick 1 PO DAILY 06/13/18 Tuna 03 Oil 3 PO DAILY 06/13/18 Zn-Zyme 1 PO DAILY 06/13/18 Clopidogrel Bisulfate [Clopidogrel] 75 mg PO DAILY 09/08/18 traMADol [Ultram] 50 tablet PO PRN PRN 09/08/18 Aurum Metallicum 2 drp PO DAILY 02/13/19 Cbd Oil DAILY 02/13/19 Sibling Family History: Cancer Maternal Family History: Diabetes, Heart Disease, Hypertension, Stroke Paternal Family History: Diabetes, Heart Disease, Pulmonary Disease Smoking Status: Never smoker Tobacco Use: Non-smoker Physical Exam Vital Signs Temp Pulse Resp BP 98.3 F 77 18 120/68 08/17/19 12:31 08/17/19 12:31 08/17/19 12:31 08/17/19 12:31 General: Alert, Oriented x3, Cooperative HEENT: Atraumatic, PERRLA, TM's Clear Lungs: Clear to auscultation, Normal air movement Cardiovascular: Regular rate, Regular Rhythm Psych/Mental Status: Normal Affect, Appropriate Assessment/Plan The patient appears to be tolerating hyperbaric oxygen therapy well, wich will be continued as per the patient's medical plan. Code Visit [id number]
[2019-08-17 14:45] LABS: Bedside Glucose 96 mg/dL (70-110)
[2019-08-18 09:51] LABS: Bedside Glucose 141 mg/dL (70-110)
[2019-08-18 10:11] LABS: Bedside Glucose 163 mg/dL (70-110)
[2019-08-18 12:00] LABS: Bedside Glucose 143 mg/dL (70-110)
[2019-08-18 12:09] VITALS: BP 125/68; BP 144/86; PULSE 83; PULSE 85; RESP 18; TEMP 36.8; TEMP 36.9
--- NOTE | 2019-08-18 13:27 | PCM.HBO.PN ---
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 Progress: Today represents the patient's 9th hyperbaric oxygen treatment out of 40 planned sessions. Tolerance of hyperbaric oxygen therapy: Hyperbaric oxygen treatment was provided as per the facility's protocol at 2.0 ANA in 100% oxygen for 90 minutes. The patient tolerated hyperbaric oxygen well, without complications or complaints. Upon emergence of the hyperbaric chamber, the patient's vital signs remained stable. He was discharged in good condition. Blood glucose was 141 before entering the chamber and was 143 after his treatment. 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) Diabetes with ulcer of toe (Chronic) PAD (peripheral artery disease) (Chronic) Cellulitis and abscess of foot (Chronic) Type 2 diabetes, controlled, with ulcer of heel (Chronic) Non-healing open wound of heel (Chronic) Hyperlipidemia (Chronic) Peripheral vascular disease (Chronic) Hypertension (Chronic) Coronary artery disease (Chronic) Status post CABG Type II diabetes mellitus (Chronic) Valdez grade 3 Allergies/Adverse Reactions: Allergies rivaroxaban [From Xarelto] Allergy (Verified 02/13/19 16:41) Other Home Medications: Ambulatory Orders Medication Instructions Recorded #17 3 tab PO DAILY 06/13/18 Aspirin [Lite Coat Aspirin] 325 mg PO DAILY 06/13/18 [id number] 1 PO DAILY 06/13/18 Calcium Lactate 1 PO DAILY 06/13/18 Cat C 2 PO DAILY 06/13/18 Cat E2 8 PO DAILY 06/13/18 Cholecalciferol (Vitamin D3) 5,000 mg PO DAILY 06/13/18 [Vitamin D3] Colon Clear 1 tab PO PRN PRN 06/13/18 Inositol 2 PO PRN PRN 06/13/18 Intestinal Cleanse No 1 3 tab PO PRN PRN 06/13/18 Koncentrated K 1 tab PO DAILY 06/13/18 Mag Lactate 1 PO DAILY 06/13/18 Nattokinase 2 tab PO DAILY 06/13/18 Potassium-Derick 1 PO DAILY 06/13/18 Tuna 03 Oil 3 PO DAILY 06/13/18 Zn-Zyme 1 PO DAILY 06/13/18 Clopidogrel Bisulfate [Clopidogrel] 75 mg PO DAILY 09/08/18 traMADol [Ultram] 50 tablet PO PRN PRN 09/08/18 Aurum Metallicum 2 drp PO DAILY 02/13/19 Cbd Oil DAILY 02/13/19 Sibling Family History: Cancer Maternal Family History: Diabetes, Heart Disease, Hypertension, Stroke Paternal Family History: Diabetes, Heart Disease, Pulmonary Disease Smoking Status: Never smoker Tobacco Use: Non-smoker Physical Exam Vital Signs Temp Pulse Resp BP 98.4 F 85 18 125/68 H 08/18/19 12:09 08/18/19 12:09 08/18/19 12:09 08/18/19 12:09 General: Alert, Oriented x3, Cooperative, No apparent distress, Well developed, Well nourished HEENT: Atraumatic, PERRLA, EOMI, Normocephalic Lungs: Normal air movement Psych/Mental Status: Normal Affect, Appropriate, Alert and oriented to time, place, person, mood and affect Assessment/Plan The patient tolerated hyperbaric oxygen therapy well, which will be continued as per the patient's medical plan.
[2019-08-19 11:46] LABS: Bedside Glucose 139 mg/dL (70-110)
[2019-08-19 13:21] VITALS: BP 133/70; BP 135/82; PULSE 75; PULSE 79; RESP 16; RESP 18; TEMP 36.6; TEMP 36.8
[2019-08-19 14:46] LABS: Bedside Glucose 135 mg/dL (70-110)
--- NOTE | 2019-08-19 15:58 | PCM.HBO.PN ---
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 Progress: Today represents the patient's 10th hyperbaric oxygen treatment out of 40 planned sessions. Tolerance of hyperbaric oxygen therapy: Hyperbaric oxygen treatment was provided as per the facility's protocol at 2.0 ANA in 100% oxygen for 90 minutes. The patient tolerated hyperbaric oxygen well, without complications or complaints. Upon emergence of the hyperbaric chamber, the patient's vital signs remained stable. He was discharged in good condition. See documented blood glucose levels. 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) Diabetes with ulcer of toe (Chronic) PAD (peripheral artery disease) (Chronic) Cellulitis and abscess of foot (Chronic) Type 2 diabetes, controlled, with ulcer of heel (Chronic) Non-healing open wound of heel (Chronic) Hyperlipidemia (Chronic) Peripheral vascular disease (Chronic) Hypertension (Chronic) Coronary artery disease (Chronic) Status post CABG Type II diabetes mellitus (Chronic) Valdez grade 3 Allergies/Adverse Reactions: Allergies rivaroxaban [From Xarelto] Allergy (Verified 02/13/19 16:41) Other Home Medications: Ambulatory Orders Medication Instructions Recorded #17 3 tab PO DAILY 06/13/18 Aspirin [Lite Coat Aspirin] 325 mg PO DAILY 06/13/18 [id number] 1 PO DAILY 06/13/18 Calcium Lactate 1 PO DAILY 06/13/18 Cat C 2 PO DAILY 06/13/18 Cat E2 8 PO DAILY 06/13/18 Cholecalciferol (Vitamin D3) 5,000 mg PO DAILY 06/13/18 [Vitamin D3] Colon Clear 1 tab PO PRN PRN 06/13/18 Inositol 2 PO PRN PRN 06/13/18 Intestinal Cleanse No 1 3 tab PO PRN PRN 06/13/18 Koncentrated K 1 tab PO DAILY 06/13/18 Mag Lactate 1 PO DAILY 06/13/18 Nattokinase 2 tab PO DAILY 06/13/18 Potassium-Derick 1 PO DAILY 06/13/18 Tuna 03 Oil 3 PO DAILY 06/13/18 Zn-Zyme 1 PO DAILY 06/13/18 Clopidogrel Bisulfate [Clopidogrel] 75 mg PO DAILY 09/08/18 traMADol [Ultram] 50 tablet PO PRN PRN 09/08/18 Aurum Metallicum 2 drp PO DAILY 02/13/19 Cbd Oil DAILY 02/13/19 Sibling Family History: Cancer Maternal Family History: Diabetes, Heart Disease, Hypertension, Stroke Paternal Family History: Diabetes, Heart Disease, Pulmonary Disease Smoking Status: Never smoker Tobacco Use: Non-smoker Physical Exam Vital Signs Temp Pulse Resp BP 98.3 F 79 18 133/70 H 08/19/19 13:21 08/19/19 13:21 08/19/19 13:21 08/19/19 13:21 General: Alert, Oriented x3, Cooperative, No apparent distress HEENT: Atraumatic, TM's Clear Lungs: Clear to auscultation, Normal air movement Cardiovascular: Regular rate, Regular Rhythm Psych/Mental Status: Normal Affect, Appropriate, Alert and oriented to time, place, person, mood and affect Assessment/Plan The patient tolerated hyperbaric oxygen therapy well, which will be continued as per the patient's medical plan.
[2019-08-20 12:00] LABS: Bedside Glucose 163 mg/dL (70-110)
[2019-08-20 12:33] VITALS: BP 130/95; BP 132/75; PULSE 79; PULSE 83; RESP 16; RESP 18; TEMP 36.4; TEMP 36.5
--- NOTE | 2019-08-20 12:34 | PCM.HBO.PN ---
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 Progress: Today represents the patient's 11th hyperbaric oxygen treatment out of 40 planned sessions. Tolerance of hyperbaric oxygen therapy: Hyperbaric oxygen treatment was provided as per the facility's protocol at 2.0 ANA in 100% oxygen for 90 minutes. The patient tolerated hyperbaric oxygen well, without complications or complaints. Upon emergence of the hyperbaric chamber, the patient's vital signs remained stable. He was discharged in good condition. See documented blood glucose levels. 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) Diabetes with ulcer of toe (Chronic) PAD (peripheral artery disease) (Chronic) Cellulitis and abscess of foot (Chronic) Type 2 diabetes, controlled, with ulcer of heel (Chronic) Non-healing open wound of heel (Chronic) Hyperlipidemia (Chronic) Peripheral vascular disease (Chronic) Hypertension (Chronic) Coronary artery disease (Chronic) Status post CABG Type II diabetes mellitus (Chronic) Valdez grade 3 Allergies/Adverse Reactions: Allergies rivaroxaban [From Xarelto] Allergy (Verified 02/13/19 16:41) Other Home Medications: Ambulatory Orders Medication Instructions Recorded #17 3 tab PO DAILY 06/13/18 Aspirin [Lite Coat Aspirin] 325 mg PO DAILY 06/13/18 [id number] 1 PO DAILY 06/13/18 Calcium Lactate 1 PO DAILY 06/13/18 Cat C 2 PO DAILY 06/13/18 Cat E2 8 PO DAILY 06/13/18 Cholecalciferol (Vitamin D3) 5,000 mg PO DAILY 06/13/18 [Vitamin D3] Colon Clear 1 tab PO PRN PRN 06/13/18 Inositol 2 PO PRN PRN 06/13/18 Intestinal Cleanse No 1 3 tab PO PRN PRN 06/13/18 Koncentrated K 1 tab PO DAILY 06/13/18 Mag Lactate 1 PO DAILY 06/13/18 Nattokinase 2 tab PO DAILY 06/13/18 Potassium-Derick 1 PO DAILY 06/13/18 Tuna 03 Oil 3 PO DAILY 06/13/18 Zn-Zyme 1 PO DAILY 06/13/18 Clopidogrel Bisulfate [Clopidogrel] 75 mg PO DAILY 09/08/18 traMADol [Ultram] 50 tablet PO PRN PRN 09/08/18 Aurum Metallicum 2 drp PO DAILY 02/13/19 Cbd Oil DAILY 02/13/19 Sibling Family History: Cancer Maternal Family History: Diabetes, Heart Disease, Hypertension, Stroke Paternal Family History: Diabetes, Heart Disease, Pulmonary Disease Smoking Status: Never smoker Tobacco Use: Non-smoker Physical Exam Vital Signs Temp Pulse Resp BP 98.3 F 79 18 133/70 H 08/19/19 13:21 08/19/19 13:21 08/19/19 13:21 08/19/19 13:21 General: Alert, Oriented x3, Cooperative, No apparent distress HEENT: Atraumatic, TM's Clear Lungs: Clear to auscultation, Normal air movement Cardiovascular: Regular rate, Regular Rhythm Psych/Mental Status: Normal Affect, Appropriate, Alert and oriented to time, place, person, mood and affect Assessment/Plan The patient tolerated hyperbaric oxygen therapy well, which will be continued as per the patient's medical plan.
[2019-08-20 14:41] LABS: Bedside Glucose 118 mg/dL (70-110)
[2019-08-21 14:22] VITALS: BP 143/69; PULSE 68; RESP 16; TEMP 36.6; BMI 24.9
--- NOTE | 2019-08-21 17:39 | PCM.WC.PN ---
(1) Type 2 diabetes, uncontrolled, with ulcer of heel Status: Chronic Current Visit: Yes Code(s): E11.621 - Type 2 diabetes mellitus with foot ulcer; E11.65 - Type 2 diabetes mellitus with hyperglycemia; L97.409 - Non-pressure chronic ulcer of unspecified heel and midfoot with unspecified severity Comment: right plantar heel (2) PAD (peripheral artery disease) Status: Chronic Current Visit: Yes Code(s): I73.9 - Peripheral vascular disease, unspecified (3) Cellulitis and abscess of foot Status: Chronic Current Visit: Yes Code(s): L03.119 - Cellulitis of unspecified part of limb; L02.619 - Cutaneous abscess of unspecified foot (4) Type 2 diabetes, controlled, with ulcer of heel Status: Chronic Current Visit: Yes Code(s): E11.621 - Type 2 diabetes mellitus with foot ulcer; L97.409 - Non-pressure chronic ulcer of unspecified heel and midfoot with unspecified severity Type of Wound Date of Service: 08/21/19 Chief Complaint: Nonhealing ulcer right heel, Valdez Grade 3 diabetic ulcer History of Wound: Gibson is here for evaluation of an ulcer of his right heel. He was recently treated for this same area with Theraskin application and was discharged approximately 8 weeks ago. 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 He has been applying Aquacel and gauze to the ulcer. He does follow with Dr. Navas regularly and had a bypass of his right SFA and popliteal arteries earlier this year. He has had procedures for his arterial disease in past to both of his lower extremities. He has tried alternative treatments with supplements and chelation therapy in the past. He also has diabetes and recent A1C was 7.2% He does wear diabetic shoes. He had been undergoing chelation treatments by Dr. German in [place]. He denies fever, chills, erythema or heavy drainage. He reports significant pain and discomfort of his right heel and his entire right leg which no one can explain. In March 2019, he was hospitalized due to occlusion of his bypass graft in his right leg and Dr. Navas was able to open it 50%. He also has blockages in his left leg. Dr. Navas is unable to revascularize either leg at this time and he may ultimately require limb amputation if his vascular disease worsens. Progress of Wound: Gibson is here to follow up for nonhealing ulcer of his right heel. He continues to have significant pain in his right heel. Xrays did not show osteomyelitis or heel spur or other cause for his pain. He tolerated Fibracol dressings and SnapVAC. He will continue cefdinir. His states there is a moderate amount of drainage daily but there has been no leakage through his dressings. Denies fever, chills, erythema. - Physical Exam Vital Signs Temp Pulse Resp BP 98 F 68 16 143/69 H 08/21/19 14:22 08/21/19 14:22 08/21/19 14:22 08/21/19 14:22 General: Alert, Oriented x3, Cooperative, No apparent distress HEENT: Atraumatic, Normocephalic Oral: Moist Mucosa Extremities: Capillary Refill Less than 3 Seconds, Cool, Edema Skin: Ulcer/ Wound Wound Measurements and Assessment WC - Nurse 1 - General Ulcer Measurement Start: 08/17/19 12:30 Freq: Status: Active Protocol: Activity Type Activity Date Activity User E-Sign Co-Sign Detail Recorded Client Recorded Date Recorded By Document 08/21/19 14:22 [facility] [id number] 08/21/19 14:35 [facility] 08/21/19 14:22 Wound Center Nurse 1 [Ulcer Assessment] #14- R HEEL -Combined with other wound No -Current Size (cm) - Length 1.3 -Current Size (cm) - Width 0.9 -Current Size (cm) - Depth 0.4 -Total Square Cm 1.17 -Photo Taken No -Epithelialization Small 1-33% -Tunneling No -Undermining/Tunneling No -Circular Undermining No -Exudate Amt Medium -Exudate Type Serous -Wound Margin Distinct, Outline Attached -Granulation Amt Large (67-100%) -Granulation Quality Red -Slough/Fibrin Yes -Necrosis Amt Small (1-33%) -Necrotic Tissue Type Adherent Slough -Texture (Shahana-wound Skin Appearance) Assessed,Callus ,Scarring -Moisture (Shahana-wound Skin Appearance Assessed, ) Maceration,Dry/ Scaly -Color (Shahana-wound Skin Appearance) Assessed,Palor -Temperature (Shahana-wound Skin No Abnormality Appearance) (Pt Warm) -Tenderness on Palpation (Shahana-wound Yes Skin Appearance) -Ulcer Cleansing soapy water -Foul Odor after Cleansing No -Anesthetic Used 5% Lidocaine Gel [Edema Assessment] -Lower Limb Edema Present Yes -Right Calf (cm) 27.5 -Right Ankle (cm) 19.3 [place] - Nurse 2 - General Ulcer CM Notes Start: 08/17/19 12:30 Freq: Status: Active Protocol: Activity Type Activity Date Activity User E-Sign Co-Sign Detail Recorded Client Recorded Date Recorded By Document 08/21/19 15:18 DV [id number] 08/21/19 15:31 DV 08/21/19 15:18 Wound Center Nurse 2 [Procedure/Treatment] #14- R HEEL -Time 15:22 -Correct Patient Yes -Correct Side, Site, Position Yes -Correct Procedure Yes -Procedure Performed Yes -Type of Procedure Debridement -Clinical Debridement Subcutaneous -Post Debridement Size (cm) - Length 1.3 -Post Debridement Size (cm) - Width 1.2 -Post Debridement Size (cm) - Depth 0.5 -Total Square Cm 1.56 -Wound/Ulcer Outcome Not Healed -Ulcer Cleansing Rinsed/ Irrigated with Saline -Foul Odor after Cleansing No -Bioengineered Tissue No -Bleeding Controlled with Pressure -Offloading No -Type of Offloading Surgical Shoe -Treatment Response Procedure Tolerated Well [See Physician Procedure note for Specifics] Pain Scale: 0-10 Numeric [Pain] -Is Patient Pain Free? Yes Psych/Mental Status: Normal Affect, Appropriate Debridement Note Post-Debridement Measurements/Treatment - Nurse 2 - General Ulcer CM Notes Start: 08/17/19 12:30 Freq: Status: Active Protocol: Activity Type Activity Date Activity User E-Sign Co-Sign Detail Recorded Client Recorded Date Recorded By Document 08/21/19 15:18 DV [id number] 08/21/19 15:31 DV 08/21/19 15:18 Wound Center Nurse 2 #14- R HEEL -Time 15:22 -Correct Patient Yes -Correct Side, Site, Position Yes -Correct Procedure Yes -Procedure Performed Yes -Type of Procedure Debridement -Clinical Debridement Subcutaneous -Post Debridement Size (cm) - Length 1.3 -Post Debridement Size (cm) - Width 1.2 -Post Debridement Size (cm) - Depth 0.5 -Total Square Cm 1.56 -Wound/Ulcer Outcome Not Healed -Ulcer Cleansing Rinsed/ Irrigated with Saline -Foul Odor after Cleansing No -Bioengineered Tissue No -Bleeding Controlled with Pressure -Offloading No -Type of Offloading Surgical Shoe -Treatment Response Procedure Tolerated Well Pain Scale: 0-10 Numeric Is Patient Pain Free? Yes Wound debrided: right heel Laterality: Right Wound Grade/Stage: Grade 3 Type of Debridement: Excisional debridement Anesthesia Used: 4% Lidocaine Solution, 5% Lidocaine Gel Depth: Down to and including healthy tissue, in the subcutaneous layer, to muscle Percentage of wound debrided: 100 Instrument Used: #15 blade, Forceps Tissue Removed: yellow slough, devitalized tissue Severity: Fat Layer Exposed Amount of bleeding with debridement: Mild Bleeding Controlled with: Compression and gauze Patient tolerated procedure well Assessment/Plan Active Problems Type 2 diabetes, uncontrolled, with ulcer of heel (Chronic) right plantar heel PAD (peripheral artery disease) (Chronic) Cellulitis and abscess of foot (Chronic) Type 2 diabetes, controlled, with ulcer of heel (Chronic) Assessment: 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 Diabetes mellitus - controlled. Peripheral vascular disease - status post revascularization 08/07/18 and 03/2019 Plan: Gibson's ulcer was evaluated and debrided today with improvement in his ulcer. He is tolerating HBO treatment. He has had 11 HBO treatments. Ulcer will be dressed using Fibracol to the ulcer bed and then SNAP wound vac was placed over his heel ulcer. A wound culture was done today. He may ultimately need to use a COTY wound vac if he tolerates the vac to be able to leave the vac and tubing in place while he undergoes HBO treatment as the SNAP vac that he would need is not able to go in the HBO chamber. He will continue to use the surgical shoe for offloading. He would continue to benefit from hyperbaric oxygen treatment to help heal his wound and salvage his limb from amputation given his comorbid arterial disease and DFU. Tramadol 50 mg #84 and Oxycodone 5 mg #45 were prescribed for treatment of pain with debridements on 08/14/2019. OARRS was appropriate. No signs of diversion or abuse. Encouraged to call with any increase in pain or drainage, fever or chills. He will benefit from application of an advanced wound healing product such as Primatrix Ag or Epificord to help heal his ulcer and prevent limb loss in conjunction with hyperbaric oxygen treatment as well as wound vac treatment to heal his ulcer and manage the moderate to heavy drainage that is coming from ulcer. F/U in 1 week.
[2019-08-24 11:51] VITALS: BP 145/74; BP 145/88; PULSE 81; PULSE 83; RESP 16; RESP 18; TEMP 36.4; TEMP 36.7
[2019-08-24 12:00] LABS: Bedside Glucose 196 mg/dL (70-110)
[2019-08-24 14:20] LABS: Bedside Glucose 81 mg/dL (70-110)
--- NOTE | 2019-08-24 15:08 | PCM.HBO.PN ---
History of Present Illness Date of Service: 08/24/19 Presenting Chief Complaint: Nonhealing ulcer right heel, Valdez Grade 3 diabetic ulcer TRAM RIVERA is a 69 year old currently undergoing hyperbaric oxygen therapy for Valdez grade 3 diabetic foot ulcer of his right heel. Progress: Today represents the patient's 12th hyperbaric oxygen treatment out of 40 planned sessions. Tolerance of hyperbaric oxygen therapy: Hyperbaric oxygen treatment was provided as per the facility's protocol at 2.0 ANA in 100% oxygen for 90 minutes. The patient tolerated hyperbaric oxygen well, without complications or complaints. Upon emergence of the hyperbaric chamber, the patient's vital signs remained stable. He was discharged in good condition. See documented blood glucose levels. 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) Diabetes with ulcer of toe (Chronic) PAD (peripheral artery disease) (Chronic) Cellulitis and abscess of foot (Chronic) Type 2 diabetes, controlled, with ulcer of heel (Chronic) Non-healing open wound of heel (Chronic) Hyperlipidemia (Chronic) Peripheral vascular disease (Chronic) Hypertension (Chronic) Coronary artery disease (Chronic) Status post CABG Type II diabetes mellitus (Chronic) Valdez grade 3 Allergies/Adverse Reactions: Allergies rivaroxaban [From Xarelto] Allergy (Verified 02/13/19 16:41) Other Home Medications: Ambulatory Orders Medication Instructions Recorded #17 3 tab PO DAILY 06/13/18 Aspirin [Lite Coat Aspirin] 325 mg PO DAILY 06/13/18 [id number] 1 PO DAILY 06/13/18 Calcium Lactate 1 PO DAILY 06/13/18 Cat C 2 PO DAILY 06/13/18 Cat E2 8 PO DAILY 06/13/18 Cholecalciferol (Vitamin D3) 5,000 mg PO DAILY 06/13/18 [Vitamin D3] Colon Clear 1 tab PO PRN PRN 06/13/18 Inositol 2 PO PRN PRN 06/13/18 Intestinal Cleanse No 1 3 tab PO PRN PRN 06/13/18 Koncentrated K 1 tab PO DAILY 06/13/18 Mag Lactate 1 PO DAILY 06/13/18 Nattokinase 2 tab PO DAILY 06/13/18 Potassium-Derick 1 PO DAILY 06/13/18 Tuna 03 Oil 3 PO DAILY 06/13/18 Zn-Zyme 1 PO DAILY 06/13/18 Clopidogrel Bisulfate [Clopidogrel] 75 mg PO DAILY 09/08/18 traMADol [Ultram] 50 tablet PO PRN PRN 09/08/18 Aurum Metallicum 2 drp PO DAILY 02/13/19 Cbd Oil DAILY 02/13/19 Sibling Family History: Cancer Maternal Family History: Diabetes, Heart Disease, Hypertension, Stroke Paternal Family History: Diabetes, Heart Disease, Pulmonary Disease Smoking Status: Never smoker Tobacco Use: Non-smoker Physical Exam Vital Signs Temp Pulse Resp BP 98.0 F 81 18 145/74 H 08/24/19 11:51 08/24/19 11:51 08/24/19 11:51 08/24/19 11:51 General: Alert, Oriented x3, Cooperative HEENT: Atraumatic, TM's Clear Lungs: Clear to auscultation, Normal air movement Cardiovascular: Regular rate, Regular Rhythm Psych/Mental Status: Normal Affect, Appropriate Assessment/Plan Active Problems Type 2 diabetes, uncontrolled, with ulcer of heel (Chronic) right plantar heel PAD (peripheral artery disease) (Chronic) Cellulitis and abscess of foot (Chronic) Type 2 diabetes, controlled, with ulcer of heel (Chronic) The patient tolerated hyperbaric oxygen therapy well, which will be continued as per the patient's medical plan. [id number]
[2019-08-25 10:06] VITALS: BP 136/73; BP 153/68; PULSE 80; PULSE 85; RESP 16; RESP 18; TEMP 36.7; TEMP 36.8
[2019-08-25 10:10] LABS: Bedside Glucose 182 mg/dL (70-110)
[2019-08-25 12:46] LABS: Bedside Glucose 169 mg/dL (70-110)
--- NOTE | 2019-08-25 13:17 | PCM.HBO.PN ---
History of Present Illness Date of Service: 08/25/19 Presenting Chief Complaint: Nonhealing ulcer right heel, Valdez Grade 3 diabetic ulcer TRAM RIVERA is a 69 year old currently undergoing hyperbaric oxygen therapy for Valdez grade 3 diabetic foot ulcer of his right heel. Progress: Today represents the patient's 13th hyperbaric oxygen treatment out of 40 planned sessions. Tolerance of hyperbaric oxygen therapy: Hyperbaric oxygen treatment was provided as per the facility's protocol at 2.0 ANA in 100% oxygen for 90 minutes. The patient tolerated hyperbaric oxygen well, without complications or complaints. Upon emergence of the hyperbaric chamber, the patient's vital signs remained stable. He was discharged in good condition. See documented blood glucose levels, which are documented elsewhere. 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) Diabetes with ulcer of toe (Chronic) PAD (peripheral artery disease) (Chronic) Cellulitis and abscess of foot (Chronic) Type 2 diabetes, controlled, with ulcer of heel (Chronic) Non-healing open wound of heel (Chronic) Hyperlipidemia (Chronic) Peripheral vascular disease (Chronic) Hypertension (Chronic) Coronary artery disease (Chronic) Status post CABG Type II diabetes mellitus (Chronic) Valdez grade 3 Allergies/Adverse Reactions: Allergies rivaroxaban [From Xarelto] Allergy (Verified 02/13/19 16:41) Other Home Medications: Ambulatory Orders Medication Instructions Recorded #17 3 tab PO DAILY 06/13/18 Aspirin [Lite Coat Aspirin] 325 mg PO DAILY 06/13/18 [id number] 1 PO DAILY 06/13/18 Calcium Lactate 1 PO DAILY 06/13/18 Cat C 2 PO DAILY 06/13/18 Cat E2 8 PO DAILY 06/13/18 Cholecalciferol (Vitamin D3) 5,000 mg PO DAILY 06/13/18 [Vitamin D3] Colon Clear 1 tab PO PRN PRN 06/13/18 Inositol 2 PO PRN PRN 06/13/18 Intestinal Cleanse No 1 3 tab PO PRN PRN 06/13/18 Koncentrated K 1 tab PO DAILY 06/13/18 Mag Lactate 1 PO DAILY 06/13/18 Nattokinase 2 tab PO DAILY 06/13/18 Potassium-Derick 1 PO DAILY 06/13/18 Tuna 03 Oil 3 PO DAILY 06/13/18 Zn-Zyme 1 PO DAILY 06/13/18 Clopidogrel Bisulfate [Clopidogrel] 75 mg PO DAILY 09/08/18 traMADol [Ultram] 50 tablet PO PRN PRN 09/08/18 Aurum Metallicum 2 drp PO DAILY 02/13/19 Cbd Oil DAILY 02/13/19 Sibling Family History: Cancer Maternal Family History: Diabetes, Heart Disease, Hypertension, Stroke Paternal Family History: Diabetes, Heart Disease, Pulmonary Disease Smoking Status: Never smoker Tobacco Use: Non-smoker Physical Exam Vital Signs Temp Pulse Resp BP 98.1 F 85 18 136/73 H 08/25/19 10:06 08/25/19 10:06 08/25/19 10:06 08/25/19 10:06 General: Alert, Oriented x3, Cooperative, No apparent distress, Well developed, Well nourished HEENT: Atraumatic, PERRLA, EOMI, Normocephalic Lungs: Normal air movement Psych/Mental Status: Normal Affect, Appropriate, Alert and oriented to time, place, person, mood and affect Assessment/Plan Active Problems Type 2 diabetes, uncontrolled, with ulcer of heel (Chronic) right plantar heel PAD (peripheral artery disease) (Chronic) Cellulitis and abscess of foot (Chronic) Type 2 diabetes, controlled, with ulcer of heel (Chronic) The patient appears to be tolerating hyperbaric oxygen therapy well, which will be continued as per the patient's medical plan.
[2019-08-26 11:56] LABS: Bedside Glucose 162 mg/dL (70-110)
[2019-08-26 12:29] VITALS: BP 143/73; BP 148/82; PULSE 72; PULSE 85; RESP 16; RESP 18; TEMP 36.8
--- NOTE | 2019-08-26 12:52 | PCM.HBO.PN ---
History of Present Illness Date of Service: 08/26/19 Presenting Chief Complaint: Nonhealing ulcer right heel, Valdez Grade 3 diabetic ulcer TRAM RIVERA is a 69 year old currently undergoing hyperbaric oxygen therapy for Valdez grade 3 diabetic foot ulcer of his right heel. Progress: Today represents the patient's 14th hyperbaric oxygen treatment out of 40 planned sessions. Tolerance of hyperbaric oxygen therapy: Hyperbaric oxygen treatment was provided as per the facility's protocol at 2.0 ANA in 100% oxygen for 90 minutes. The patient tolerated hyperbaric oxygen well, without complications or complaints. Upon emergence of the hyperbaric chamber, the patient's vital signs remained stable. He was discharged in good condition. See documented blood glucose levels, which are documented elsewhere. 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) Diabetes with ulcer of toe (Chronic) PAD (peripheral artery disease) (Chronic) Cellulitis and abscess of foot (Chronic) Type 2 diabetes, controlled, with ulcer of heel (Chronic) Non-healing open wound of heel (Chronic) Hyperlipidemia (Chronic) Peripheral vascular disease (Chronic) Hypertension (Chronic) Coronary artery disease (Chronic) Status post CABG Type II diabetes mellitus (Chronic) Valdez grade 3 Allergies/Adverse Reactions: Allergies rivaroxaban [From Xarelto] Allergy (Verified 02/13/19 16:41) Other Home Medications: Ambulatory Orders Medication Instructions Recorded #17 3 tab PO DAILY 06/13/18 Aspirin [Lite Coat Aspirin] 325 mg PO DAILY 06/13/18 [id number] 1 PO DAILY 06/13/18 Calcium Lactate 1 PO DAILY 06/13/18 Cat C 2 PO DAILY 06/13/18 Cat E2 8 PO DAILY 06/13/18 Cholecalciferol (Vitamin D3) 5,000 mg PO DAILY 06/13/18 [Vitamin D3] Colon Clear 1 tab PO PRN PRN 06/13/18 Inositol 2 PO PRN PRN 06/13/18 Intestinal Cleanse No 1 3 tab PO PRN PRN 06/13/18 Koncentrated K 1 tab PO DAILY 06/13/18 Mag Lactate 1 PO DAILY 06/13/18 Nattokinase 2 tab PO DAILY 06/13/18 Potassium-Derick 1 PO DAILY 06/13/18 Tuna 03 Oil 3 PO DAILY 06/13/18 Zn-Zyme 1 PO DAILY 06/13/18 Clopidogrel Bisulfate [Clopidogrel] 75 mg PO DAILY 09/08/18 traMADol [Ultram] 50 tablet PO PRN PRN 09/08/18 Aurum Metallicum 2 drp PO DAILY 02/13/19 Cbd Oil DAILY 02/13/19 Sibling Family History: Cancer Maternal Family History: Diabetes, Heart Disease, Hypertension, Stroke Paternal Family History: Diabetes, Heart Disease, Pulmonary Disease Smoking Status: Never smoker Tobacco Use: Non-smoker Physical Exam Vital Signs Temp Pulse Resp BP 98.3 F 85 18 143/73 H 08/26/19 12:29 08/26/19 12:29 08/26/19 12:29 08/26/19 12:29 General: Alert, Oriented x3, Cooperative, No apparent distress HEENT: Atraumatic, TM's Clear Lungs: Clear to auscultation, Normal air movement Cardiovascular: Regular rate, Regular Rhythm Psych/Mental Status: Normal Affect, Appropriate, Alert and oriented to time, place, person, mood and affect Assessment/Plan Active Problems Type 2 diabetes, uncontrolled, with ulcer of heel (Chronic) right plantar heel PAD (peripheral artery disease) (Chronic) Cellulitis and abscess of foot (Chronic) Type 2 diabetes, controlled, with ulcer of heel (Chronic) The patient appears to be tolerating hyperbaric oxygen therapy well, which will be continued as per the patient's medical plan.
[2019-08-26 14:35] LABS: Bedside Glucose 109 mg/dL (70-110)
[2019-08-27 12:21] LABS: Bedside Glucose 168 mg/dL (70-110)
[2019-08-27 12:23] VITALS: BP 135/67; BP 157/79; PULSE 68; PULSE 69; RESP 16; TEMP 36.4
[2019-08-27 14:25] LABS: Bedside Glucose 133 mg/dL (70-110)
--- NOTE | 2019-08-27 15:22 | PCM.HBO.PN ---
History of Present Illness Date of Service: 08/27/19 Presenting Chief Complaint: Nonhealing ulcer right heel, Valdez Grade 3 diabetic ulcer TRAM RIVERA is a 69 year old currently undergoing hyperbaric oxygen therapy for Valdez grade 3 diabetic foot ulcer of his right heel. Progress: Today represents the patient's 15th hyperbaric oxygen treatment out of 40 planned sessions. Tolerance of hyperbaric oxygen therapy: Hyperbaric oxygen treatment was provided as per the facility's protocol at 2.0 ANA in 100% oxygen for 90 minutes. The patient tolerated hyperbaric oxygen well, without complications or complaints. Upon emergence of the hyperbaric chamber, the patient's vital signs remained stable. He was discharged in good condition. See documented blood glucose levels, which are documented elsewhere. 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) Diabetes with ulcer of toe (Chronic) PAD (peripheral artery disease) (Chronic) Cellulitis and abscess of foot (Chronic) Type 2 diabetes, controlled, with ulcer of heel (Chronic) Non-healing open wound of heel (Chronic) Hyperlipidemia (Chronic) Peripheral vascular disease (Chronic) Hypertension (Chronic) Coronary artery disease (Chronic) Status post CABG Type II diabetes mellitus (Chronic) Valdez grade 3 Allergies/Adverse Reactions: Allergies rivaroxaban [From Xarelto] Allergy (Verified 02/13/19 16:41) Other Home Medications: Ambulatory Orders Medication Instructions Recorded #17 3 tab PO DAILY 06/13/18 Aspirin [Lite Coat Aspirin] 325 mg PO DAILY 06/13/18 [id number] 1 PO DAILY 06/13/18 Calcium Lactate 1 PO DAILY 06/13/18 Cat C 2 PO DAILY 06/13/18 Cat E2 8 PO DAILY 06/13/18 Cholecalciferol (Vitamin D3) 5,000 mg PO DAILY 06/13/18 [Vitamin D3] Colon Clear 1 tab PO PRN PRN 06/13/18 Inositol 2 PO PRN PRN 06/13/18 Intestinal Cleanse No 1 3 tab PO PRN PRN 06/13/18 Koncentrated K 1 tab PO DAILY 06/13/18 Mag Lactate 1 PO DAILY 06/13/18 Nattokinase 2 tab PO DAILY 06/13/18 Potassium-Derick 1 PO DAILY 06/13/18 Tuna 03 Oil 3 PO DAILY 06/13/18 Zn-Zyme 1 PO DAILY 06/13/18 Clopidogrel Bisulfate [Clopidogrel] 75 mg PO DAILY 09/08/18 traMADol [Ultram] 50 tablet PO PRN PRN 09/08/18 Aurum Metallicum 2 drp PO DAILY 02/13/19 Cbd Oil DAILY 02/13/19 Sibling Family History: Cancer Maternal Family History: Diabetes, Heart Disease, Hypertension, Stroke Paternal Family History: Diabetes, Heart Disease, Pulmonary Disease Smoking Status: Never smoker Tobacco Use: Non-smoker Physical Exam Vital Signs Temp Pulse Resp BP 97.5 F L 69 16 157/79 H 08/27/19 12:23 08/27/19 12:23 08/27/19 12:23 08/27/19 12:23 General: Alert, Oriented x3, Cooperative, No apparent distress, Well developed HEENT: Atraumatic, PERRLA, TM's Clear Lungs: Clear to auscultation, Normal air movement, No rhonchi, No wheeze, No rales Cardiovascular: Regular rate, Regular Rhythm, Normal S1, Normal S2, No murmurs Psych/Mental Status: Normal Affect, Appropriate, Alert and oriented to time, place, person, mood and affect Assessment/Plan Active Problems Type 2 diabetes, uncontrolled, with ulcer of heel (Chronic) right plantar heel PAD (peripheral artery disease) (Chronic) Cellulitis and abscess of foot (Chronic) Type 2 diabetes, controlled, with ulcer of heel (Chronic) The patient appears to be tolerating hyperbaric oxygen therapy well, which will be continued as per the patient's medical plan.
[2019-08-28 14:43] VITALS: BP 154/68; PULSE 77; RESP 16; TEMP 35.9; BMI 24.9
--- NOTE | 2019-08-28 18:16 | PCM.WC.PN ---
(1) Type 2 diabetes, uncontrolled, with ulcer of heel Status: Chronic Current Visit: Yes Code(s): E11.621 - Type 2 diabetes mellitus with foot ulcer; E11.65 - Type 2 diabetes mellitus with hyperglycemia; L97.409 - Non-pressure chronic ulcer of unspecified heel and midfoot with unspecified severity Comment: right plantar heel (2) PAD (peripheral artery disease) Status: Chronic Current Visit: Yes Code(s): I73.9 - Peripheral vascular disease, unspecified (3) Cellulitis and abscess of foot Status: Chronic Current Visit: Yes Code(s): L03.119 - Cellulitis of unspecified part of limb; L02.619 - Cutaneous abscess of unspecified foot (4) Type 2 diabetes, controlled, with ulcer of heel Status: Chronic Current Visit: Yes Code(s): E11.621 - Type 2 diabetes mellitus with foot ulcer; L97.409 - Non-pressure chronic ulcer of unspecified heel and midfoot with unspecified severity Type of Wound Date of Service: 08/28/19 Chief Complaint: Nonhealing ulcer right heel, Valdez Grade 3 diabetic ulcer History of Wound: Gibson is here for evaluation of an ulcer of his right heel. He was recently treated for this same area with Theraskin application and was discharged approximately 8 weeks ago. 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 He has been applying Aquacel and gauze to the ulcer. He does follow with Dr. Navas regularly and had a bypass of his right SFA and popliteal arteries earlier this year. He has had procedures for his arterial disease in past to both of his lower extremities. He has tried alternative treatments with supplements and chelation therapy in the past. He also has diabetes and recent A1C was 7.2% He does wear diabetic shoes. He had been undergoing chelation treatments by Dr. German in [place]. He denies fever, chills, erythema or heavy drainage. He reports significant pain and discomfort of his right heel and his entire right leg which no one can explain. In March 2019, he was hospitalized due to occlusion of his bypass graft in his right leg and Dr. Navas was able to open it 50%. He also has blockages in his left leg. Dr. Navas is unable to revascularize either leg at this time and he may ultimately require limb amputation if his vascular disease worsens. Progress of Wound: Gibson is here to follow up for nonhealing ulcer of his right heel. He continues to have significant pain in his right heel. Xrays did not show osteomyelitis or heel spur or other cause for his pain. He tolerated Fibracol dressings and SnapVAC but due to SNapvac bridge not being able to go into HBO chamber he has only been using fibracol dressings this week. He reports that the pain is significantly more without the snap vac. He will continue cefdinir and he was started on flagyl for anearobic bacteria on Saturday. His states there is a moderate amount of drainage daily but there has been no leakage through his dressings. Denies fever, chills, erythema. - Physical Exam Vital Signs Temp Pulse Resp BP 96.6 F L 77 16 154/68 H 08/28/19 14:43 08/28/19 14:43 08/28/19 14:43 08/28/19 14:43 General: Alert, Oriented x3, Cooperative, No apparent distress HEENT: Atraumatic, Normocephalic Oral: Moist Mucosa Extremities: Cool, Diminished Peripheral Pulses, Edema Skin: Ulcer/ Wound Wound Measurements and Assessment WC - Nurse 1 - General Ulcer Measurement Start: 08/17/19 12:30 Freq: Status: Active Protocol: Activity Type Activity Date Activity User E-Sign Co-Sign Detail Recorded Client Recorded Date Recorded By Document 08/28/19 14:43 MW [id number] 08/28/19 14:47 MW 08/28/19 14:43 Wound Center Nurse 1 [Ulcer Assessment] #14- R HEEL -Combined with other wound No -Current Size (cm) - Length 1.1 -Current Size (cm) - Width 0.8 -Current Size (cm) - Depth 0.3 -Total Square Cm 0.88 -Photo Taken No -Epithelialization None Present -Tunneling No -Undermining/Tunneling No -Circular Undermining No -Exudate Amt Small -Exudate Type Serosanguineous -Wound Margin Thickened & Rolled Under -Granulation Amt Medium (34-66%) -Granulation Quality [place] -Slough/Fibrin Yes -Necrosis Amt Medium (34-66%) -Necrotic Tissue Type Adherent Slough -Structure Exposed N/A -Texture (Shahana-wound Skin Appearance) Assessed,Callus -Moisture (Shahana-wound Skin Appearance No Abnormality, ) Assessed -Color (Shahana-wound Skin Appearance) No Abnormality, Assessed -Temperature (Shahana-wound Skin No Abnormality Appearance) (Pt Warm) -Tenderness on Palpation (Shahana-wound Yes Skin Appearance) -Ulcer Cleansing Rinsed/ Irrigated with Saline -Foul Odor after Cleansing No -Anesthetic Used 4% Lidocaine Solution [Edema Assessment] -Lower Limb Edema Present No WC - Nurse 2 - General Ulcer CM Notes Start: 08/17/19 12:30 Freq: Status: Active Protocol: Activity Type Activity Date Activity User E-Sign Co-Sign Detail Recorded Client Recorded Date Recorded By Document 08/28/19 14:56 MW [id number] 08/28/19 15:16 MW 08/28/19 14:56 Wound Center Nurse 2 [Procedure/Treatment] #14- R HEEL -Time 14:57 -Correct Patient Yes -Correct Side, Site, Position Yes -Correct Procedure Yes -Procedure Performed Yes -Type of Procedure Debridement -Clinical Debridement Subcutaneous -Post Debridement Size (cm) - Length 1.1 -Post Debridement Size (cm) - Width 1.1 -Post Debridement Size (cm) - Depth 0.8 -Total Square Cm 1.21 -Wound/Ulcer Outcome Not Healed -Ulcer Cleansing Rinsed/ Irrigated with Saline -Foul Odor after Cleansing No -Bioengineered Tissue No -Injectable Lidocaine (%) 2 -Lidocaine (ml) 5 -Bleeding Controlled with Pressure -Other undermining 1 to 4, 0.7cm -Offloading No -Treatment Response Procedure Tolerated Well [See Physician Procedure note for Specifics] Pain Scale: 0-10 Numeric [Pain] -Is Patient Pain Free? Yes Psych/Mental Status: Normal Affect, Appropriate Debridement Note Post-Debridement Measurements/Treatment WC - Nurse 2 - General Ulcer CM Notes Start: 08/17/19 12:30 Freq: Status: Active Protocol: Activity Type Activity Date Activity User E-Sign Co-Sign Detail Recorded Client Recorded Date Recorded By Document 08/21/19 15:18 DV [id number] 08/21/19 15:31 DV Document 08/28/19 14:56 MW [id number] 08/28/19 15:16 MW 08/21/19 08/28/19 15:18 14:56 Wound Center Nurse 2 #14- R HEEL -Time 15:22 14:57 -Correct Patient Yes Yes -Correct Side, Site, Position Yes Yes -Correct Procedure Yes Yes -Procedure Performed Yes Yes -Type of Procedure Debridement Debridement -Clinical Debridement Subcutaneous Subcutaneous -Post Debridement Size (cm) - Length 1.3 1.1 -Post Debridement Size (cm) - Width 1.2 1.1 -Post Debridement Size (cm) - Depth 0.5 0.8 -Total Square Cm 1.56 1.21 -Wound/Ulcer Outcome Not Healed Not Healed -Ulcer Cleansing Rinsed/ Rinsed/ Irrigated with Irrigated with Saline Saline -Foul Odor after Cleansing No No -Bioengineered Tissue No No -Injectable Lidocaine (%) 2 -Lidocaine (ml) 5 -Bleeding Controlled with Pressure Pressure -Other undermining 1 to 4, 0.7cm -Offloading No No -Type of Offloading Surgical Shoe -Treatment Response Procedure Procedure Tolerated Well Tolerated Well Pain Scale: 0-10 Numeric Is Patient Pain Free? Yes Yes Wound debrided: right heel Laterality: Right Wound Grade/Stage: Valdez grade 3 Type of Debridement: Excisional debridement Anesthesia Used: 4% Lidocaine Solution, 5% Lidocaine Gel, Cetacaine - 2% lidocaine 5 ml Depth: Down to and including healthy tissue, in the subcutaneous layer, to muscle Percentage of wound debrided: 100 Instrument Used: #15 blade, Forceps Tissue Removed: yellow slough, devitalized tissue Severity: Fat Layer Exposed Amount of bleeding with debridement: Mild Bleeding Controlled with: Compression and gauze Patient tolerated procedure well Assessment/Plan Active Problems Type 2 diabetes, uncontrolled, with ulcer of heel (Chronic) right plantar heel PAD (peripheral artery disease) (Chronic) Cellulitis and abscess of foot (Chronic) Type 2 diabetes, controlled, with ulcer of heel (Chronic) Assessment: 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 Diabetes mellitus - controlled. Peripheral vascular disease - status post revascularization 08/07/18 and 03/2019 Plan: Demetriuss ulcer was evaluated and debrided today with mild improvement in his ulcer. He is tolerating HBO treatment. He has had 15 HBO treatments. Ulcer will be dressed using Fibracol to the ulcer bed and then SNAP wound vac was placed over his heel ulcer. He will benefit from COTY wound vac to be able to leave the vac and tubing in place while he undergoes HBO treatment to resume negative pressure in between treatments. He will continue to use the surgical shoe for offloading. He would continue to benefit from hyperbaric oxygen treatment to help heal his wound and salvage his limb from amputation given his comorbid arterial disease and DFU. Tramadol 50 mg #84 and Oxycodone 5 mg #45 were prescribed for treatment of pain with debridements on 08/14/2019. OARRS was appropriate. No signs of diversion or abuse. Encouraged to call with any increase in pain or drainage, fever or chills. He will benefit from application of an advanced wound healing product such as Primatrix Ag or Epicord to help heal his ulcer and prevent limb loss in conjunction with hyperbaric oxygen treatment as well as wound vac treatment to heal his ulcer and manage the moderate to heavy drainage that is coming from ulcer. F/U in 1 week.
--- NOTE | 2019-08-31 10:24 | WC ---
spoke with Gab at [facility] in regards to COTY approval since we did not receive it Yuri by EOD and the vac is still pending approval through insurance. Gab stated we probably will have it by EOD today.
[2019-09-02 12:00] LABS: Bedside Glucose 171 mg/dL (70-110)
[2019-09-02 12:28] VITALS: BP 124/98; BP 157/77; PULSE 85; PULSE 95; RESP 16; RESP 18; TEMP 36.8
--- NOTE | 2019-09-02 13:39 | PCM.HBO.PN ---
History of Present Illness Date of Service: 09/02/19 Presenting Chief Complaint: Nonhealing ulcer right heel, Valdez Grade 3 diabetic ulcer TRAM RIVERA is a 69 year old currently undergoing hyperbaric oxygen therapy for Valdez grade 3 diabetic foot ulcer of his right heel. Progress: Today represents the patient's 16th hyperbaric oxygen treatment out of 40 planned sessions. Tolerance of hyperbaric oxygen therapy: Hyperbaric oxygen treatment was provided as per the facility's protocol at 2.0 ANA in 100% oxygen for 90 minutes. The patient tolerated hyperbaric oxygen well, without complications or complaints. Upon emergence of the hyperbaric chamber, the patient's vital signs remained stable. He was discharged in good condition. See documented blood glucose levels, which are documented elsewhere. 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) Diabetes with ulcer of toe (Chronic) PAD (peripheral artery disease) (Chronic) Cellulitis and abscess of foot (Chronic) Type 2 diabetes, controlled, with ulcer of heel (Chronic) Non-healing open wound of heel (Chronic) Hyperlipidemia (Chronic) Peripheral vascular disease (Chronic) Hypertension (Chronic) Coronary artery disease (Chronic) Status post CABG Type II diabetes mellitus (Chronic) Valdez grade 3 Allergies/Adverse Reactions: Allergies rivaroxaban [From Xarelto] Allergy (Verified 02/13/19 16:41) Other Home Medications: Ambulatory Orders Medication Instructions Recorded #17 3 tab PO DAILY 06/13/18 Aspirin [Lite Coat Aspirin] 325 mg PO DAILY 06/13/18 [id number] 1 PO DAILY 06/13/18 Calcium Lactate 1 PO DAILY 06/13/18 Cat C 2 PO DAILY 06/13/18 Cat E2 8 PO DAILY 06/13/18 Cholecalciferol (Vitamin D3) 5,000 mg PO DAILY 06/13/18 [Vitamin D3] Colon Clear 1 tab PO PRN PRN 06/13/18 Inositol 2 PO PRN PRN 06/13/18 Intestinal Cleanse No 1 3 tab PO PRN PRN 06/13/18 Koncentrated K 1 tab PO DAILY 06/13/18 Mag Lactate 1 PO DAILY 06/13/18 Nattokinase 2 tab PO DAILY 06/13/18 Potassium-Derick 1 PO DAILY 06/13/18 Tuna 03 Oil 3 PO DAILY 06/13/18 Zn-Zyme 1 PO DAILY 06/13/18 Clopidogrel Bisulfate [Clopidogrel] 75 mg PO DAILY 09/08/18 traMADol [Ultram] 50 tablet PO PRN PRN 09/08/18 Aurum Metallicum 2 drp PO DAILY 02/13/19 Cbd Oil DAILY 02/13/19 Sibling Family History: Cancer Maternal Family History: Diabetes, Heart Disease, Hypertension, Stroke Paternal Family History: Diabetes, Heart Disease, Pulmonary Disease Smoking Status: Never smoker Tobacco Use: Non-smoker Physical Exam Vital Signs Temp Pulse Resp BP 98.3 F 95 18 124/98 H 09/02/19 12:28 09/02/19 12:28 09/02/19 12:28 09/02/19 12:28 General: Alert, Oriented x3, Cooperative, No apparent distress HEENT: Atraumatic, TM's Clear Lungs: Clear to auscultation, Normal air movement Cardiovascular: Regular rate, Regular Rhythm Psych/Mental Status: Normal Affect, Appropriate, Alert and oriented to time, place, person, mood and affect Assessment/Plan Active Problems Type 2 diabetes, uncontrolled, with ulcer of heel (Chronic) right plantar heel PAD (peripheral artery disease) (Chronic) Cellulitis and abscess of foot (Chronic) Type 2 diabetes, controlled, with ulcer of heel (Chronic) The patient appears to be tolerating hyperbaric oxygen therapy well, which will be continued as per the patient's medical plan.
[2019-09-02 14:25] LABS: Bedside Glucose 151 mg/dL (70-110)
[2019-09-02 14:58] VITALS: BP 157/77; PULSE 85; RESP 16; TEMP 36.8; BMI 24.9
[2019-09-03 10:01] LABS: Bedside Glucose 201 mg/dL (70-110)
[2019-09-03 11:22] VITALS: BP 134/69; BP 135/96; PULSE 89; PULSE 90; RESP 16; RESP 18; TEMP 36.4; TEMP 36.9
[2019-09-03 12:21] LABS: Bedside Glucose 160 mg/dL (70-110)
--- NOTE | 2019-09-03 12:22 | PCM.HBO.PN ---
History of Present Illness Date of Service: 09/03/19 Presenting Chief Complaint: Nonhealing ulcer right heel, Valdez Grade 3 diabetic ulcer TRAM RIVERA is a 69 year old currently undergoing hyperbaric oxygen therapy for Valdez grade 3 diabetic foot ulcer of his right heel. Progress: Today represents the patient's 17th hyperbaric oxygen treatment out of 40 planned sessions. Tolerance of hyperbaric oxygen therapy: Hyperbaric oxygen treatment was provided as per the facility's protocol at 2.0 ANA in 100% oxygen for 90 minutes. The patient tolerated hyperbaric oxygen well, without complications or complaints. Upon emergence of the hyperbaric chamber, the patient's vital signs remained stable. He was discharged in good condition. See documented blood glucose levels, which are documented elsewhere. 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) Diabetes with ulcer of toe (Chronic) PAD (peripheral artery disease) (Chronic) Cellulitis and abscess of foot (Chronic) Type 2 diabetes, controlled, with ulcer of heel (Chronic) Non-healing open wound of heel (Chronic) Hyperlipidemia (Chronic) Peripheral vascular disease (Chronic) Hypertension (Chronic) Coronary artery disease (Chronic) Status post CABG Type II diabetes mellitus (Chronic) Valdez grade 3 Allergies/Adverse Reactions: Allergies rivaroxaban [From Xarelto] Allergy (Verified 02/13/19 16:41) Other Home Medications: Ambulatory Orders Medication Instructions Recorded #17 3 tab PO DAILY 06/13/18 Aspirin [Lite Coat Aspirin] 325 mg PO DAILY 06/13/18 [id number] 1 PO DAILY 06/13/18 Calcium Lactate 1 PO DAILY 06/13/18 Cat C 2 PO DAILY 06/13/18 Cat E2 8 PO DAILY 06/13/18 Cholecalciferol (Vitamin D3) 5,000 mg PO DAILY 06/13/18 [Vitamin D3] Colon Clear 1 tab PO PRN PRN 06/13/18 Inositol 2 PO PRN PRN 06/13/18 Intestinal Cleanse No 1 3 tab PO PRN PRN 06/13/18 Koncentrated K 1 tab PO DAILY 06/13/18 Mag Lactate 1 PO DAILY 06/13/18 Nattokinase 2 tab PO DAILY 06/13/18 Potassium-Derick 1 PO DAILY 06/13/18 Tuna 03 Oil 3 PO DAILY 06/13/18 Zn-Zyme 1 PO DAILY 06/13/18 Clopidogrel Bisulfate [Clopidogrel] 75 mg PO DAILY 09/08/18 traMADol [Ultram] 50 tablet PO PRN PRN 09/08/18 Aurum Metallicum 2 drp PO DAILY 02/13/19 Cbd Oil DAILY 02/13/19 Sibling Family History: Cancer Maternal Family History: Diabetes, Heart Disease, Hypertension, Stroke Paternal Family History: Diabetes, Heart Disease, Pulmonary Disease Smoking Status: Never smoker Tobacco Use: Non-smoker Physical Exam Vital Signs Temp Pulse Resp BP 98.4 F 90 18 134/69 H 09/03/19 11:22 09/03/19 11:22 09/03/19 11:22 09/03/19 11:22 General: Alert, Oriented x3, Cooperative, No apparent distress HEENT: Atraumatic, Normocephalic Psych/Mental Status: Normal Affect Assessment/Plan Active Problems Type 2 diabetes, uncontrolled, with ulcer of heel (Chronic) right plantar heel PAD (peripheral artery disease) (Chronic) Cellulitis and abscess of foot (Chronic) Type 2 diabetes, controlled, with ulcer of heel (Chronic) The patient appears to be tolerating hyperbaric oxygen therapy well, which will be continued as per the patient's medical plan.
[2019-09-04 10:50] LABS: Bedside Glucose 269 mg/dL (70-110)
[2019-09-04 11:12] VITALS: BP 122/65; BP 152/82; PULSE 78; PULSE 82; RESP 16; TEMP 36.6
[2019-09-04 13:06] LABS: Bedside Glucose 148 mg/dL (70-110)
[2019-09-04 13:18] VITALS: BP 152/82; PULSE 78; RESP 18; TEMP 36.6; BMI 24.9
--- NOTE | 2019-09-04 16:03 | PCM.HBO.PN ---
History of Present Illness Date of Service: 09/04/19 Presenting Chief Complaint: Nonhealing ulcer right heel, Valdez Grade 3 diabetic ulcer TRAM RIVERA is a 69 year old currently undergoing hyperbaric oxygen therapy for Avldez grade 3 diabetic foot ulcer of his right heel. Progress: Today represents the patient's 18th hyperbaric oxygen treatment out of 40 planned sessions. Tolerance of hyperbaric oxygen therapy: Hyperbaric oxygen treatment was provided as per the facility's protocol at 2.0 ANA in 100% oxygen for 90 minutes. The patient tolerated hyperbaric oxygen well, without complications or complaints. Upon emergence of the hyperbaric chamber, the patient's vital signs remained stable. He was discharged in good condition. See documented blood glucose levels, which are documented elsewhere. 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) Diabetes with ulcer of toe (Chronic) PAD (peripheral artery disease) (Chronic) Cellulitis and abscess of foot (Chronic) Type 2 diabetes, controlled, with ulcer of heel (Chronic) Non-healing open wound of heel (Chronic) Hyperlipidemia (Chronic) Peripheral vascular disease (Chronic) Hypertension (Chronic) Coronary artery disease (Chronic) Status post CABG Type II diabetes mellitus (Chronic) Valdez grade 3 Allergies/Adverse Reactions: Allergies rivaroxaban [From Xarelto] Allergy (Verified 02/13/19 16:41) Other Home Medications: Ambulatory Orders Medication Instructions Recorded #17 3 tab PO DAILY 06/13/18 Aspirin [Lite Coat Aspirin] 325 mg PO DAILY 06/13/18 [id number] 1 PO DAILY 06/13/18 Calcium Lactate 1 PO DAILY 06/13/18 Cat C 2 PO DAILY 06/13/18 Cat E2 8 PO DAILY 06/13/18 Cholecalciferol (Vitamin D3) 5,000 mg PO DAILY 06/13/18 [Vitamin D3] Colon Clear 1 tab PO PRN PRN 06/13/18 Inositol 2 PO PRN PRN 06/13/18 Intestinal Cleanse No 1 3 tab PO PRN PRN 06/13/18 Koncentrated K 1 tab PO DAILY 06/13/18 Mag Lactate 1 PO DAILY 06/13/18 Nattokinase 2 tab PO DAILY 06/13/18 Potassium-Derick 1 PO DAILY 06/13/18 Tuna 03 Oil 3 PO DAILY 06/13/18 Zn-Zyme 1 PO DAILY 06/13/18 Clopidogrel Bisulfate [Clopidogrel] 75 mg PO DAILY 09/08/18 traMADol [Ultram] 50 tablet PO PRN PRN 09/08/18 Aurum Metallicum 2 drp PO DAILY 02/13/19 Cbd Oil DAILY 02/13/19 Sibling Family History: Cancer Maternal Family History: Diabetes, Heart Disease, Hypertension, Stroke Paternal Family History: Diabetes, Heart Disease, Pulmonary Disease Smoking Status: Never smoker Tobacco Use: Non-smoker Alcohol: None Drugs: None Physical Exam Vital Signs Temp Pulse Resp BP 97.8 F 78 18 152/82 H 09/04/19 13:18 09/04/19 13:18 09/04/19 13:18 09/04/19 13:18 General: Alert, Oriented x3, Cooperative, No apparent distress Psych/Mental Status: Normal Affect, Appropriate Assessment/Plan Active Problems Type 2 diabetes, uncontrolled, with ulcer of heel (Chronic) right plantar heel PAD (peripheral artery disease) (Chronic) Cellulitis and abscess of foot (Chronic) Type 2 diabetes, controlled, with ulcer of heel (Chronic) The patient appears to be tolerating hyperbaric oxygen therapy well, which will be continued as per the patient's medical plan.
--- NOTE | 2019-09-04 16:30 | PN.PCM_ITS ---
(1) Type 2 diabetes, uncontrolled, with ulcer of heel Status: Chronic Current Visit: Yes Code(s): E11.621 - Type 2 diabetes mellitus with foot ulcer; E11.65 - Type 2 diabetes mellitus with hyperglycemia; L97.409 - Non-pressure chronic ulcer of unspecified heel and midfoot with unspecified severity Comment: right plantar heel (2) PAD (peripheral artery disease) Status: Chronic Current Visit: Yes Code(s): I73.9 - Peripheral vascular disease, unspecified (3) Cellulitis and abscess of foot Status: Chronic Current Visit: Yes Code(s): L03.119 - Cellulitis of unspecified part of limb; L02.619 - Cutaneous abscess of unspecified foot (4) Type 2 diabetes, controlled, with ulcer of heel Status: Chronic Current Visit: Yes Code(s): E11.621 - Type 2 diabetes mellitus with foot ulcer; L97.409 - Non-pressure chronic ulcer of unspecified heel and midfoot with unspecified severity Type of Wound Date of Service: 09/04/19 Chief Complaint: Nonhealing ulcer right heel, Valdez Grade 3 diabetic ulcer History of Wound: Gibson is here for evaluation of an ulcer of his right heel. He was recently treated for this same area with Theraskin application and was discharged approximately 8 weeks ago. 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 He has been applying Aquacel and gauze to the ulcer. He does follow with Dr. Navas regularly and had a bypass of his right SFA and popliteal arteries earlier this year. He has had procedures for his arterial disease in past to both of his lower extremities. He has tried alternative treatments with supplements and ch elation therapy in the past. He also has diabetes and recent A1C was 7.2% He does wear diabetic shoes. He had been undergoing chelation treatments by Dr. German in [place]. He denies fever, chills, erythema or heavy drainage. He reports significant pain and discomfort of his right heel and his entire right leg which no one can explain. In March 2019, he was hospitalized due to occlusion of his bypass graft in his right leg and Dr. Navas was able to open it 50%. He also has blockages in his left leg. Dr. Navas is unable to revascularize either leg at this time and he may ultimately require limb amputation if his vascular disease worsens. Progress of Wound: Gibson is here to follow up for nonhealing ulcer of his right heel. He continues to have significant pain in his right heel. Xrays did not show osteomyelitis or heel spur or other cause for his pain. He tolerated Fibracol dressings and COTY. He will continue cefdinir and he was started on flagyl for anearobic bacteria on Saturday. His states there is a moderate amount of drainage but there has been no leakage through his dressings. Denies fever, chills, erythema. - Physical Exam Vital Signs Temp Pulse Resp BP 97.8 F 78 18 152/82 H 09/04/19 13:18 09/04/19 13:18 09/04/19 13:18 09/04/19 13:18 General: Alert, Oriented x3, Cooperative, No apparent distress HEENT: Atraumatic, Normocephalic Oral: Moist Mucosa Extremities: Edema Skin: Ulcer/ Wound Wound Measurements and Assessment WC - Nurse 1 - General Ulcer Measurement Start: 08/17/19 12:30 Freq: Status: Active Protocol: Activity Type Activity Date Activity User E-Sign Co-Sign Detail Recorded Client Recorded Date Recorded By Document 09/04/19 13:18 RB [id number] 09/04/19 13:26 RB 09/04/19 13:18 Wound Center Nurse 1 [Ulcer Assessment] #14- R HEEL -Combined with other wound No -Current Size (cm) - Length 0.9 -Current Size (cm) - Width 0.7 -Current Size (cm) - Depth 0.3 -Total Square Cm 0.63 -Tunneling No -Undermining/Tunneling No -Circular Undermining No -Exudate Amt Small -Exudate Type Serosanguineous -Wound Margin Flat & Intact -Granulation Amt Large (67-100%) -Granulation Quality Red -Slough/Fibrin Yes -Necrosis Amt Small (1-33%) -Necrotic Tissue Type Adherent Slough -Structure Exposed N/A -Texture (Shahana-wound Skin Appearance) Assessed,Callus -Moisture (Shahana-wound Skin Appearance Assessed ) -Color (Shahana-wound Skin Appearance) Assessed -Temperature (Shahana-wound Skin No Abnormality Appearance) (Pt Warm) -Tenderness on Palpation (Shahana-wound No Skin Appearance) -Ulcer Cleansing Wound Cleanser -Foul Odor after Cleansing No -Anesthetic Used 5% Lidocaine Gel WC - Nurse 2 - General Ulcer CM Notes Start: 08/17/19 12:30 Freq: Status: Active Protocol: Activity Type Activity Date Activity User E-Sign Co-Sign Detail Recorded Client Recorded Date Recorded By Document 09/04/19 13:58 MW [id number] 09/04/19 14:19 MW 09/04/19 13:58 Wound Center Nurse 2 [Procedure/Treatment] -Time 13:58 -Correct Patient Yes -Correct Side, Site, Position Yes -Correct Procedure Yes -Procedure Performed Yes -Type of Procedure Debridement -Clinical Debridement Subcutaneous -Post Debridement Size (cm) - Length 1.4 -Post Debridement Size (cm) - Width 1.4 -Post Debridement Size (cm) - Depth 0.8 -Total Square Cm 1.96 -Wound/Ulcer Outcome Not Healed -Ulcer Cleansing Rinsed/ Irrigated with Saline -Foul Odor after Cleansing No -Bioengineered Tissue No -Bleeding Controlled with Pressure -Offloading No -Treatment Response Procedure Tolerated Well [See Physician Procedure note for Specifics] Pain Scale: 0-10 Numeric [Pain] -Is Patient Pain Free? Yes Psych/Mental Status: Normal Affect, Appropriate Debridement Note Post-Debridement Measurements/Treatment - Nurse 2 - General Ulcer CM Notes Start: 08/17/19 12:30 Freq: Status: Active Protocol: Activity Type Activity Date Activity User E-Sign Co-Sign Detail Recorded Client Recorded Date Recorded By Document 08/21/19 15:18 DV [id number] 08/21/19 15:31 DV Document 08/28/19 14:56 MW [id number] 08/28/19 15:16 MW Document 09/04/19 13:58 MW [id number] 09/04/19 14:19 MW 08/21/19 08/28/19 09/04/19 15:18 14:56 13:58 Wound Center Nurse 2 #14- R HEEL -Time 15:22 14:57 13:58 -Correct Patient Yes Yes Yes -Correct Side, Site, Position Yes Yes Yes -Correct Procedure Yes Yes Yes -Procedure Performed Yes Yes Yes -Type of Procedure Debridement Debridement Debridement -Clinical Debridement Subcutaneous Subcutaneous Subcutaneous -Post Debridement Size (cm) - Length 1.3 1.1 1.4 -Post Debridement Size (cm) - Width 1.2 1.1 1.4 -Post Debridement Size (cm) - Depth 0.5 0.8 0.8 -Total Square Cm 1.56 1.21 1.96 -Wound/Ulcer Outcome Not Healed Not Healed Not Healed -Ulcer Cleansing Rinsed/ Rinsed/ Rinsed/ Irrigated with Irrigated with Irrigated with Saline Saline Saline -Foul Odor after Cleansing No No No -Bioengineered Tissue No No No -Injectable Lidocaine (%) 2 -Lidocaine (ml) 5 -Bleeding Controlled with Pressure Pressure Pressure -Other undermining 1 to 4, 0.7cm -Offloading No No No -Type of Offloading Surgical Shoe -Treatment Response Procedure Procedure Procedure Tolerated Well Tolerated Well Tolerated Well Pain Scale: 0-10 Numeric Is Patient Pain Free? Yes Yes Yes Wound debrided: right heel Laterality: Right Wound Grade/Stage: Grade 3 Type of Debridement: Excisional debridement Anesthesia Used: 4% Lidocaine Solution, 5% Lidocaine Gel, Cetacaine - 2% lidocaine 5 ml Depth: Down to and including healthy tissue, in the subcutaneous layer, to muscle Percentage of wound debrided: 100 Instrument Used: #15 blade, Forceps Tissue Removed: yellow slough, devitalized tissue Severity: Fat Layer Exposed Amount of bleeding with debridement: Mild Bleeding Controlled with: Compression and gauze Patient tolerated procedure well Assessment/Plan Active Problems Type 2 diabetes, uncontrolled, with ulcer of heel (Chronic) right plantar heel PAD (peripheral artery disease) (Chronic) Cellulitis and abscess of foot (Chronic) Type 2 diabetes, controlled, with ulcer of heel (Chronic) Assessment: 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 Diabetes mellitus - controlled. Peripheral vascular disease - status post revascularization 08/07/18 and 03/2019 Plan: Gibson's ulcer was evaluated and debrided today with mild improvement in his ulcer. He is tolerating HBO treatment. He has had 18 HBO treatments. Ulcer will be dressed using Fibracol to the ulcer bed and then COTY wound vac was placed over his heel ulcer. He will benefit from COTY wound vac to be able to leave the vac and tubing in place while he undergoes HBO treatment to resume negative pressure in between treatments. He will continue to use the surgical shoe for offloading. He would continue to benefit from hyperbaric oxygen treatment to help heal his wound and salvage his limb from amputation given his comorbid arterial disease and DFU. Oxycodone 5 mg #45 were prescribed for treatment of pain with debridements on 09/04/2019. OARRS was appropriate. No signs of diversion or abuse. Encouraged to call with any increase in pain or drainage, fever or chills. He will benefit from application of an advanced wound healing product such as Primatrix Ag or Epicord to help heal his ulcer and prevent limb loss in conjunction with hyperbaric oxygen treatment as well as wound vac treatment to heal his ulcer and manage the moderate to heavy drainage that is coming from ulcer. F/U in 1 week.
[2019-09-07 10:16] LABS: Bedside Glucose 163 mg/dL (70-110)
[2019-09-07 10:42] VITALS: BP 143/74; BP 143/77; PULSE 78; PULSE 83; RESP 16; RESP 18; TEMP 36.6; TEMP 36.7
[2019-09-07 12:35] LABS: Bedside Glucose 144 mg/dL (70-110)
--- NOTE | 2019-09-07 17:29 | PCM.HBO.PN ---
History of Present Illness Date of Service: 09/07/19 Presenting Chief Complaint: Nonhealing ulcer right heel, Valdez Grade 3 diabetic ulcer TRAM RIVERA is a 69 year old currently undergoing hyperbaric oxygen therapy for Valdez grade 3 diabetic foot ulcer of his right heel. Progress: Today represents the patient's 19th hyperbaric oxygen treatment out of 40 planned sessions. Tolerance of hyperbaric oxygen therapy: Hyperbaric oxygen treatment was provided as per the facility's protocol at 2.0 ANA in 100% oxygen for 90 minutes. The patient tolerated hyperbaric oxygen well, without complications or complaints. Upon emergence of the hyperbaric chamber, the patient's vital signs remained stable. He was discharged in good condition. Blood glucose pre-treatment was 163. Blood glucose post-treatment was 144. 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) Diabetes with ulcer of toe (Chronic) PAD (peripheral artery disease) (Chronic) Cellulitis and abscess of foot (Chronic) Type 2 diabetes, controlled, with ulcer of heel (Chronic) Non-healing open wound of heel (Chronic) Hyperlipidemia (Chronic) Peripheral vascular disease (Chronic) Hypertension (Chronic) Coronary artery disease (Chronic) Status post CABG Type II diabetes mellitus (Chronic) Valdez grade 3 Allergies/Adverse Reactions: Allergies rivaroxaban [From Xarelto] Allergy (Verified 02/13/19 16:41) Other Home Medications: Ambulatory Orders Medication Instructions Recorded #17 3 tab PO DAILY 06/13/18 Aspirin [Lite Coat Aspirin] 325 mg PO DAILY 06/13/18 [id number] 1 PO DAILY 06/13/18 Calcium Lactate 1 PO DAILY 06/13/18 Cat C 2 PO DAILY 06/13/18 Cat E2 8 PO DAILY 06/13/18 Cholecalciferol (Vitamin D3) 5,000 mg PO DAILY 06/13/18 [Vitamin D3] Colon Clear 1 tab PO PRN PRN 06/13/18 Inositol 2 PO PRN PRN 06/13/18 Intestinal Cleanse No 1 3 tab PO PRN PRN 06/13/18 Koncentrated K 1 tab PO DAILY 06/13/18 Mag Lactate 1 PO DAILY 06/13/18 Nattokinase 2 tab PO DAILY 06/13/18 Potassium-Derick 1 PO DAILY 12/28/18 Tuna 03 Oil 3 PO DAILY 06/13/18 Zn-Zyme 1 PO DAILY 06/13/18 Clopidogrel Bisulfate [Clopidogrel] 75 mg PO DAILY 09/08/18 traMADol [Ultram] 50 tablet PO PRN PRN 09/08/18 Aurum Metallicum 2 drp PO DAILY 02/13/19 Cbd Oil DAILY 02/13/19 Sibling Family History: Cancer Maternal Family History: Diabetes, Heart Disease, Hypertension, Stroke Paternal Family History: Diabetes, Heart Disease, Pulmonary Disease Smoking Status: Never smoker Tobacco Use: Non-smoker Alcohol: None Drugs: None Physical Exam Vital Signs Temp Pulse Resp BP 97.8 F 83 18 143/74 H 09/07/19 10:42 09/07/19 10:42 09/07/19 10:42 09/07/19 10:42 Assessment/Plan Active Problems Type 2 diabetes, uncontrolled, with ulcer of heel (Chronic) right plantar heel PAD (peripheral artery disease) (Chronic) Cellulitis and abscess of foot (Chronic) Type 2 diabetes, controlled, with ulcer of heel (Chronic)
[2019-09-08 10:00] LABS: Bedside Glucose 171 mg/dL (70-110)
[2019-09-08 10:40] VITALS: BP 153/80; BP 156/78; PULSE 70; PULSE 86; RESP 16; RESP 18; TEMP 37
[2019-09-08 12:25] LABS: Bedside Glucose 126 mg/dL (70-110)
--- NOTE | 2019-09-08 13:04 | PCM.HBO.PN ---
History of Present Illness Date of Service: 09/08/19 Presenting Chief Complaint: Nonhealing ulcer right heel, Valdez Grade 3 diabetic ulcer TRAM RIVERA is a 69 year old currently undergoing hyperbaric oxygen therapy for Valdez grade 3 diabetic foot ulcer of his right heel. Progress: Today represents the patient's 20th hyperbaric oxygen treatment out of 40 planned sessions. Tolerance of hyperbaric oxygen therapy: Hyperbaric oxygen treatment was provided as per the facility's protocol at 2.0 ANA in 100% oxygen for 90 minutes. The patient tolerated hyperbaric oxygen well, without complications or complaints. Upon emergence of the hyperbaric chamber, the patient's vital signs remained stable. He was discharged in good condition. See documented blood glucose levels, which are documented elsewhere. 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) Diabetes with ulcer of toe (Chronic) PAD (peripheral artery disease) (Chronic) Cellulitis and abscess of foot (Chronic) Type 2 diabetes, controlled, with ulcer of heel (Chronic) Non-healing open wound of heel (Chronic) Hyperlipidemia (Chronic) Peripheral vascular disease (Chronic) Hypertension (Chronic) Coronary artery disease (Chronic) Status post CABG Type II diabetes mellitus (Chronic) Valdez grade 3 Allergies/Adverse Reactions: Allergies rivaroxaban [From Xarelto] Allergy (Verified 02/13/19 16:41) Other Home Medications: Ambulatory Orders Medication Instructions Recorded #17 3 tab PO DAILY 06/13/18 Aspirin [Lite Coat Aspirin] 325 mg PO DAILY 06/13/18 [id number] 1 PO DAILY 06/13/18 Calcium Lactate 1 PO DAILY 06/13/18 Cat C 2 PO DAILY 06/13/18 Cat E2 8 PO DAILY 06/13/18 Cholecalciferol (Vitamin D3) 5,000 mg PO DAILY 06/13/18 [Vitamin D3] Colon Clear 1 tab PO PRN PRN 06/13/18 Inositol 2 PO PRN PRN 06/13/18 Intestinal Cleanse No 1 3 tab PO PRN PRN 06/13/18 Koncentrated K 1 tab PO DAILY 06/13/18 Mag Lactate 1 PO DAILY 06/13/18 Nattokinase 2 tab PO DAILY 06/13/18 Potassium-Derick 1 PO DAILY 06/13/18 Tuna 03 Oil 3 PO DAILY 06/13/18 Zn-Zyme 1 PO DAILY 06/13/18 Clopidogrel Bisulfate [Clopidogrel] 75 mg PO DAILY 09/08/18 traMADol [Ultram] 50 tablet PO PRN PRN 09/08/18 Aurum Metallicum 2 drp PO DAILY 02/13/19 Cbd Oil DAILY 02/13/19 Sibling Family History: Cancer Maternal Family History: Diabetes, Heart Disease, Hypertension, Stroke Paternal Family History: Diabetes, Heart Disease, Pulmonary Disease Smoking Status: Never smoker Tobacco Use: Non-smoker Alcohol: None Drugs: None Physical Exam Vital Signs Temp Pulse Resp BP 98.6 F 86 18 156/78 H 09/08/19 10:40 09/08/19 10:40 09/08/19 10:40 09/08/19 10:40 General: Alert, Oriented x3, Cooperative, No apparent distress, Well developed, Well nourished HEENT: Atraumatic, PERRLA, EOMI, Normocephalic Lungs: Normal air movement Psych/Mental Status: Normal Affect, Appropriate, Alert and oriented to time, place, person, mood and affect Assessment/Plan Active Problems Type 2 diabetes, uncontrolled, with ulcer of heel (Chronic) right plantar heel PAD (peripheral artery disease) (Chronic) Cellulitis and abscess of foot (Chronic) Type 2 diabetes, controlled, with ulcer of heel (Chronic) The patient appears to be tolerating hyperbaric oxygen therapy well, which will be continued as per the patient's medical plan.
[2019-09-09 10:00] VITALS: BP 121/70; BP 134/74; PULSE 70; PULSE 89; RESP 16; RESP 18; TEMP 36.6
[2019-09-09 10:01] LABS: Bedside Glucose 218 mg/dL (70-110)
--- NOTE | 2019-09-09 11:40 | PCM.HBO.PN ---
History of Present Illness Date of Service: 09/09/19 Presenting Chief Complaint: Nonhealing ulcer right heel, Valdez Grade 3 diabetic ulcer TRAM RIVERA is a 69 year old currently undergoing hyperbaric oxygen therapy for Valdze grade 3 diabetic foot ulcer of his right heel. Progress: Today represents the patient's 20th hyperbaric oxygen treatment out of 40 planned sessions. Tolerance of hyperbaric oxygen therapy: Hyperbaric oxygen treatment was provided as per the facility's protocol at 2.0 ANA in 100% oxygen for 90 minutes. The patient tolerated hyperbaric oxygen well, without complications or complaints. Upon emergence of the hyperbaric chamber, the patient's vital signs remained stable. He was discharged in good condition. Blood glucose pre-treatment was 163. Blood glucose post-treatment was 144. 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) Diabetes with ulcer of toe (Chronic) PAD (peripheral artery disease) (Chronic) Cellulitis and abscess of foot (Chronic) Type 2 diabetes, controlled, with ulcer of heel (Chronic) Non-healing open wound of heel (Chronic) Hyperlipidemia (Chronic) Peripheral vascular disease (Chronic) Hypertension (Chronic) Coronary artery disease (Chronic) Status post CABG Type II diabetes mellitus (Chronic) Valdez grade 3 Allergies/Adverse Reactions: Allergies rivaroxaban [From Xarelto] Allergy (Verified 02/13/19 16:41) Other Home Medications: Ambulatory Orders Medication Instructions Recorded #17 3 tab PO DAILY 06/13/18 Aspirin [Lite Coat Aspirin] 325 mg PO DAILY 06/13/18 [id number] 1 PO DAILY 06/13/18 Calcium Lactate 1 PO DAILY 06/13/18 Cat C 2 PO DAILY 06/13/18 Cat E2 8 PO DAILY 06/13/18 Cholecalciferol (Vitamin D3) 5,000 mg PO DAILY 06/13/18 [Vitamin D3] Colon Clear 1 tab PO PRN PRN 06/13/18 Inositol 2 PO PRN PRN 06/13/18 Intestinal Cleanse No 1 3 tab PO PRN PRN 06/13/18 Koncentrated K 1 tab PO DAILY 06/13/18 Mag Lactate 1 PO DAILY 06/13/18 Nattokinase 2 tab PO DAILY 06/13/18 Potassium-Derick 1 PO DAILY 06/13/18 Tuna 03 Oil 3 PO DAILY 06/13/18 Zn-Zyme 1 PO DAILY 06/13/18 Clopidogrel Bisulfate [Clopidogrel] 75 mg PO DAILY 09/08/18 traMADol [Ultram] 50 tablet PO PRN PRN 09/08/18 Aurum Metallicum 2 drp PO DAILY 02/13/19 Cbd Oil DAILY 02/13/19 Sibling Family History: Cancer Maternal Family History: Diabetes, Heart Disease, Hypertension, Stroke Paternal Family History: Diabetes, Heart Disease, Pulmonary Disease Smoking Status: Never smoker Tobacco Use: Non-smoker Alcohol: None Drugs: None Physical Exam Vital Signs Temp Pulse Resp BP 97.8 F 89 18 134/74 H 09/09/19 10:00 09/09/19 10:00 09/09/19 10:00 09/09/19 10:00 Assessment/Plan Active Problems Type 2 diabetes, uncontrolled, with ulcer of heel (Chronic) right plantar heel PAD (peripheral artery disease) (Chronic) Cellulitis and abscess of foot (Chronic) Type 2 diabetes, controlled, with ulcer of heel (Chronic) The patient appears to be tolerating hyperbaric oxygen therapy well, which will be continued as per the patient's medical plan.
[2019-09-09 13:31] LABS: Bedside Glucose 140 mg/dL (70-110)
[2019-09-10 10:11] LABS: Bedside Glucose 216 mg/dL (70-110)
[2019-09-10 11:00] VITALS: BP 130/69; BP 142/74; PULSE 75; PULSE 79; RESP 16; RESP 18; TEMP 36.5; TEMP 36.6
--- NOTE | 2019-09-10 11:21 | PCM.HBO.PN ---
History of Present Illness Date of Service: 09/10/19 Presenting Chief Complaint: Nonhealing ulcer right heel, Valdez Grade 3 diabetic ulcer TRAM RIVERA is a 69 year old currently undergoing hyperbaric oxygen therapy for Valdez grade 3 diabetic foot ulcer of his right heel. Progress: Today represents the patient's 21st hyperbaric oxygen treatment out of 40 planned sessions. Tolerance of hyperbaric oxygen therapy: Hyperbaric oxygen treatment was provided as per the facility's protocol at 2.0 ANA in 100% oxygen for 90 minutes. The patient tolerated hyperbaric oxygen well, without complications or complaints. Upon emergence of the hyperbaric chamber, the patient's vital signs remained stable. He was discharged in good condition. 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) Diabetes with ulcer of toe (Chronic) PAD (peripheral artery disease) (Chronic) Cellulitis and abscess of foot (Chronic) Type 2 diabetes, controlled, with ulcer of heel (Chronic) Non-healing open wound of heel (Chronic) Hyperlipidemia (Chronic) Peripheral vascular disease (Chronic) Hypertension (Chronic) Coronary artery disease (Chronic) Status post CABG Type II diabetes mellitus (Chronic) Valdez grade 3 Allergies/Adverse Reactions: Allergies rivaroxaban [From Xarelto] Allergy (Verified 02/13/19 16:41) Other Home Medications: Ambulatory Orders Medication Instructions Recorded #17 3 tab PO DAILY 06/13/18 Aspirin [Lite Coat Aspirin] 325 mg PO DAILY 06/13/18 [id number] 1 PO DAILY 06/13/18 Calcium Lactate 1 PO DAILY 06/13/18 Cat C 2 PO DAILY 06/13/18 Cat E2 8 PO DAILY 06/13/18 Cholecalciferol (Vitamin D3) 5,000 mg PO DAILY 06/13/18 [Vitamin D3] Colon Clear 1 tab PO PRN PRN 06/13/18 Inositol 2 PO PRN PRN 06/13/18 Intestinal Cleanse No 1 3 tab PO PRN PRN 06/13/18 Koncentrated K 1 tab PO DAILY 06/13/18 Mag Lactate 1 PO DAILY 06/13/18 Nattokinase 2 tab PO DAILY 06/13/18 Potassium-Derick 1 PO DAILY 06/13/18 Tuna 03 Oil 3 PO DAILY 06/13/18 Zn-Zyme 1 PO DAILY 06/13/18 Clopidogrel Bisulfate [Clopidogrel] 75 mg PO DAILY 09/08/18 traMADol [Ultram] 50 tablet PO PRN PRN 09/08/18 Aurum Metallicum 2 drp PO DAILY 02/13/19 Cbd Oil DAILY 02/13/19 Sibling Family History: Cancer Maternal Family History: Diabetes, Heart Disease, Hypertension, Stroke Paternal Family History: Diabetes, Heart Disease, Pulmonary Disease Smoking Status: Never smoker Tobacco Use: Non-smoker Alcohol: None Drugs: None Physical Exam Vital Signs Temp Pulse Resp BP 97.8 F 79 18 130/69 H 09/10/19 11:00 09/10/19 11:00 09/10/19 11:00 09/10/19 11:00 General: Alert, Oriented x3, Cooperative, No apparent distress HEENT: Atraumatic, Normocephalic Lungs: Normal air movement Psych/Mental Status: Normal Affect Assessment/Plan Active Problems Type 2 diabetes, uncontrolled, with ulcer of heel (Chronic) right plantar heel PAD (peripheral artery disease) (Chronic) Cellulitis and abscess of foot (Chronic) Type 2 diabetes, controlled, with ulcer of heel (Chronic) The patient appears to be tolerating hyperbaric oxygen therapy well, which will be continued as per the patient's medical plan. HBO Supervision
[2019-09-10 12:21] LABS: Bedside Glucose 148 mg/dL (70-110)
[2019-09-11 10:06] LABS: Bedside Glucose 268 mg/dL (70-110)
[2019-09-11 10:26] LABS: Bedside Glucose 250 mg/dL (70-110)
[2019-09-11 10:51] VITALS: BP 112/61; BP 150/71; PULSE 71; PULSE 73; RESP 16; RESP 18; TEMP 36.6; TEMP 36.7
[2019-09-11 12:45] VITALS: BP 150/71; PULSE 71; RESP 16; TEMP 36.6; BMI 24.9
[2019-09-11 12:46] LABS: Bedside Glucose 136 mg/dL (70-110)
--- NOTE | 2019-09-11 15:44 | PCM.HBO.PN ---
History of Present Illness Date of Service: 09/11/19 Presenting Chief Complaint: Nonhealing ulcer right heel, Valdez Grade 3 diabetic ulcer TRAM RIVERA is a 69 year old currently undergoing hyperbaric oxygen therapy for Valdez grade 3 diabetic foot ulcer of his right heel. Progress: Today represents the patient's 23rd hyperbaric oxygen treatment out of 40 planned sessions. Tolerance of hyperbaric oxygen therapy: Hyperbaric oxygen treatment was provided as per the facility's protocol at 2.0 ANA in 100% oxygen for 90 minutes without air breaks. The patient tolerated hyperbaric oxygen well, without complications or complaints. Upon emergence of the hyperbaric chamber, the patient's vital signs remained stable. He was discharged in good condition. 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) Diabetes with ulcer of toe (Chronic) PAD (peripheral artery disease) (Chronic) Cellulitis and abscess of foot (Chronic) Type 2 diabetes, controlled, with ulcer of heel (Chronic) Non-healing open wound of heel (Chronic) Hyperlipidemia (Chronic) Peripheral vascular disease (Chronic) Hypertension (Chronic) Coronary artery disease (Chronic) Status post CABG Type II diabetes mellitus (Chronic) Valdez grade 3 Allergies/Adverse Reactions: Allergies rivaroxaban [From Xarelto] Allergy (Verified 02/13/19 16:41) Other Home Medications: Ambulatory Orders Medication Instructions Recorded #17 3 tab PO DAILY 06/13/18 Aspirin [Lite Coat Aspirin] 325 mg PO DAILY 06/13/18 [id number] 1 PO DAILY 06/13/18 Calcium Lactate 1 PO DAILY 06/13/18 Cat C 2 PO DAILY 06/13/18 Cat E2 8 PO DAILY 06/13/18 Cholecalciferol (Vitamin D3) 5,000 mg PO DAILY 06/13/18 [Vitamin D3] Colon Clear 1 tab PO PRN PRN 06/13/18 Inositol 2 PO PRN PRN 06/13/18 Intestinal Cleanse No 1 3 tab PO PRN PRN 06/13/18 Koncentrated K 1 tab PO DAILY 06/13/18 Mag Lactate 1 PO DAILY 06/13/18 Nattokinase 2 tab PO DAILY 06/13/18 Potassium-Derick 1 PO DAILY 06/13/18 Tuna 03 Oil 3 PO DAILY 06/13/18 Zn-Zyme 1 PO DAILY 06/13/18 Clopidogrel Bisulfate [Clopidogrel] 75 mg PO DAILY 09/08/18 traMADol [Ultram] 50 tablet PO PRN PRN 09/08/18 Aurum Metallicum 2 drp PO DAILY 02/13/19 Cbd Oil DAILY 02/13/19 Sibling Family History: Cancer Maternal Family History: Diabetes, Heart Disease, Hypertension, Stroke Paternal Family History: Diabetes, Heart Disease, Pulmonary Disease Smoking Status: Never smoker Tobacco Use: Non-smoker Alcohol: None Drugs: None Physical Exam Vital Signs Temp Pulse Resp BP 97.8 F 71 16 150/71 H 09/11/19 12:45 09/11/19 12:45 09/11/19 12:45 09/11/19 12:45 General: Alert, Oriented x3, Cooperative, No apparent distress Psych/Mental Status: Normal Affect, Appropriate Assessment/Plan Active Problems Type 2 diabetes, uncontrolled, with ulcer of heel (Chronic) right plantar heel PAD (peripheral artery disease) (Chronic) Cellulitis and abscess of foot (Chronic) Type 2 diabetes, controlled, with ulcer of heel (Chronic) The patient appears to be tolerating hyperbaric oxygen therapy well, which will be continued as per the patient's medical plan.
--- NOTE | 2019-09-11 15:45 | PN.PCM_ITS ---
(1) Type 2 diabetes, uncontrolled, with ulcer of heel Status: Chronic Current Visit: Yes Code(s): E11.621 - Type 2 diabetes mellitus with foot ulcer; E11.65 - Type 2 diabetes mellitus with hyperglycemia; L97.409 - Non-pressure chronic ulcer of unspecified heel and midfoot with unspecified severity Comment: right plantar heel (2) PAD (peripheral artery disease) Status: Chronic Current Visit: Yes Code(s): I73.9 - Peripheral vascular disease, unspecified (3) Cellulitis and abscess of foot Status: Chronic Current Visit: Yes Code(s): L03.119 - Cellulitis of unspecified part of limb; L02.619 - Cutaneous abscess of unspecified foot (4) Type 2 diabetes, controlled, with ulcer of heel Status: Chronic Current Visit: Yes Code(s): E11.621 - Type 2 diabetes mellitus with foot ulcer; L97.409 - Non-pressure chronic ulcer of unspecified heel and midfoot with unspecified severity Type of Wound Date of Service: 09/11/19 Chief Complaint: Nonhealing ulcer right heel, Valdez Grade 3 diabetic ulcer History of Wound: Gibson is here for evaluation of an ulcer of his right heel. He was recently treated for this same area with Theraskin application and was discharged approximately 8 weeks ago. 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 He has been applying Aquacel and gauze to the ulcer. He does follow with Dr. Navas regularly and had a bypass of his right SFA and popliteal arteries earlier this year. He has had procedures for his arterial disease in past to both of his lower extremities. He has tried alternative treatments with supplements and ch elation therapy in the past. He also has diabetes and recent A1C was 7.2% He does wear diabetic shoes. He had been undergoing chelation treatments by Dr. German in [place]. He denies fever, chills, erythema or heavy drainage. He reports significant pain and discomfort of his right heel and his entire right leg which no one can explain. In March 2019, he was hospitalized due to occlusion of his bypass graft in his right leg and Dr. Navas was able to open it 50%. He also has blockages in his left leg. Dr. Navas is unable to revascularize either leg at this time and he may ultimately require limb amputation if his vascular disease worsens. Progress of Wound: Gibson is here to follow up for nonhealing ulcer of his right heel. He reports decreased pain in his right heel this week. Xrays did not show osteomyelitis He is tolerating Fibracol dressings and COTY wound vac. He is improving with the combination of hyperbaric oxygen treatments and COTY wound vac. He will continue cefdinir and flagyl. There is a moderate to heavy amount of drainage but there has been no leakage through his dressings. Denies fever, chills, erythema. - Physical Exam Vital Signs Temp Pulse Resp BP 97.8 F 71 16 150/71 H 09/11/19 12:45 09/11/19 12:45 09/11/19 12:45 09/11/19 12:45 General: Alert, Oriented x3, Cooperative, No apparent distress HEENT: Atraumatic, Normocephalic Oral: Moist Mucosa Extremities: No edema Skin: Ulcer/ Wound Wound Measurements and Assessment WC - Nurse 1 - General Ulcer Measurement Start: 08/17/19 12:30 Freq: Status: Active Protocol: Activity Type Activity Date Activity User E-Sign Co-Sign Detail Recorded Client Recorded Date Recorded By Document 09/11/19 12:45 [facility] [id number] 09/11/19 12:54 [facility] 09/11/19 12:45 Wound Center Nurse 1 [Ulcer Assessment] #14- R HEEL -Combined with other wound No -Current Size (cm) - Length 0.7 -Current Size (cm) - Width 0.5 -Current Size (cm) - Depth 0.2 -Total Square Cm 0.35 -Date of Last Picture (Recall this 09/11/19 field) -Photo Taken Yes -Epithelialization Small 1-33% -Tunneling No -Undermining/Tunneling No -Circular Undermining No -Exudate Amt Medium -Exudate Type Serosanguineous -Wound Margin Thickened -Granulation Amt Large (67-100%) -Granulation Quality Pale,[place] -Slough/Fibrin Yes -Necrosis Amt Small (1-33%) -Necrotic Tissue Type Adherent Slough -Texture (Shahana-wound Skin Appearance) Assessed, Scarring -Moisture (Shahana-wound Skin Appearance Assessed, ) Maceration -Color (Shahana-wound Skin Appearance) Assessed,Palor -Temperature (Shahana-wound Skin No Abnormality Appearance) (Pt Warm) -Tenderness on Palpation (Shahana-wound No Skin Appearance) -Ulcer Cleansing soapy water -Foul Odor after Cleansing No -Anesthetic Used 5% Lidocaine Gel [Edema Assessment] -Lower Limb Edema Present No -Right Calf (cm) 24.5 -Right Ankle (cm) 17.3 WC - Nurse 2 - General Ulcer CM Notes Start: 08/17/19 12:30 Freq: Status: Active Protocol: Activity Type Activity Date Activity User E-Sign Co-Sign Detail Recorded Client Recorded Date Recorded By Document 09/11/19 13:26 DV [id number] 09/11/19 13:36 DV 09/11/19 13:26 Wound Center Nurse 2 [Procedure/Treatment] #14- R HEEL -Time 13:28 -Correct Patient Yes -Correct Side, Site, Position Yes -Correct Procedure Yes -Procedure Performed Yes -Type of Procedure Debridement -Clinical Debridement Subcutaneous -Post Debridement Size (cm) - Length 1.0 -Post Debridement Size (cm) - Width 0.9 -Post Debridement Size (cm) - Depth 0.4 -Total Square Cm 0.90 -Wound/Ulcer Outcome Not Healed -Ulcer Cleansing Rinsed/ Irrigated with Saline -Foul Odor after Cleansing No -Bioengineered Tissue No -Bleeding Controlled with Pressure -Offloading Yes -Type of Offloading Surgical Shoe -Treatment Response Procedure Tolerated Well [See Physician Procedure note for Specifics] Pain Scale: 0-10 Numeric [Pain] -Is Patient Pain Free? Yes Psych/Mental Status: Normal Affect, Appropriate Debridement Note Post-Debridement Measurements/Treatment WC - Nurse 2 - General Ulcer CM Notes Start: 08/17/19 12:30 Freq: Status: Active Protocol: Activity Type Activity Date Activity User E-Sign Co-Sign Detail Recorded Client Recorded Date Recorded By Document 08/21/19 15:18 DV [id number] 08/21/19 15:31 DV Document 08/28/19 14:56 MW [id number] 08/28/19 15:16 MW Document 09/04/19 13:58 MW [id number] 09/04/19 14:19 MW Document 09/11/19 13:26 DV [id number] 09/11/19 13:36 DV 08/21/19 08/28/19 09/04/19 15:18 14:56 13:58 Wound Center Nurse 2 #14- R HEEL -Time 15:22 14:57 13:58 -Correct Patient Yes Yes Yes -Correct Side, Site, Position Yes Yes Yes -Correct Procedure Yes Yes Yes -Procedure Performed Yes Yes Yes -Type of Procedure Debridement Debridement Debridement -Clinical Debridement Subcutaneous Subcutaneous Subcutaneous -Post Debridement Size (cm) - Length 1.3 1.1 1.4 -Post Debridement Size (cm) - Width 1.2 1.1 1.4 -Post Debridement Size (cm) - Depth 0.5 0.8 0.8 -Total Square Cm 1.56 1.21 1.96 -Wound/Ulcer Outcome Not Healed Not Healed Not Healed -Ulcer Cleansing Rinsed/ Rinsed/ Rinsed/ Irrigated with Irrigated with Irrigated with Saline Saline Saline -Foul Odor after Cleansing No No No -Bioengineered Tissue No No No -Injectable Lidocaine (%) 2 -Lidocaine (ml) 5 -Bleeding Controlled with Pressure Pressure Pressure -Other undermining 1 to 4, 0.7cm -Offloading No No No -Type of Offloading Surgical Shoe -Treatment Response Procedure Procedure Procedure Tolerated Well Tolerated Well Tolerated Well Pain Scale: 0-10 Numeric Is Patient Pain Free? Yes Yes Yes 09/11/19 13:26 Wound Center Nurse 2 #14- R HEEL -Time 13:28 -Correct Patient Yes -Correct Side, Site, Position Yes -Correct Procedure Yes -Procedure Performed Yes -Type of Procedure Debridement -Clinical Debridement Subcutaneous -Post Debridement Size (cm) - Length 1.0 -Post Debridement Size (cm) - Width 0.9 -Post Debridement Size (cm) - Depth 0.4 -Total Square Cm 0.90 -Wound/Ulcer Outcome Not Healed -Ulcer Cleansing Rinsed/ Irrigated with Saline -Foul Odor after Cleansing No -Bioengineered Tissue No -Injectable Lidocaine (%) -Lidocaine (ml) -Bleeding Controlled with Pressure -Other -Offloading Yes -Type of Offloading Surgical Shoe -Treatment Response Procedure Tolerated Well Pain Scale: 0-10 Numeric Is Patient Pain Free? Yes Wound debrided: right heel Laterality: Right Wound Grade/Stage: Valdez grade 3 Type of Debridement: Excisional debridement Anesthesia Used: 4% Lidocaine Solution, 5% Lidocaine Gel, Cetacaine - lidocaine 2% 5 ml Depth: Down to and including healthy tissue, in the subcutaneous layer, to muscle Percentage of wound debrided: 100 Instrument Used: 5mm curette Tissue Removed: yellow slough, devitalized tissue Severity: Fat Layer Exposed Amount of bleeding with debridement: Mild Bleeding Controlled with: Compression and gauze Patient tolerated procedure well Assessment/Plan Active Problems Type 2 diabetes, uncontrolled, with ulcer of heel (Chronic) right plantar heel PAD (peripheral artery disease) (Chronic) Cellulitis and abscess of foot (Chronic) Type 2 diabetes, controlled, with ulcer of heel (Chronic) Assessment: 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 Diabetes mellitus - controlled. Peripheral vascular disease - status post revascularization 08/07/18 and 03/2019 Plan: Gibson's ulcer was evaluated and debrided today with significant improvement in his ulcer compared to last week. He is tolerating HBO treatment and without this treatment I do not feel he would achieve progress in healing his ulcer. He has had 23 HBO treatments. It is medically necessary that he continue with hyperbaric oxygen treatments. Ulcer will be dressed using Fibracol to the ulcer bed and then COTY wound vac was placed over his heel ulcer. He will benefit from COTY wound vac to be able to leave the vac and tubing in place while he undergoes HBO treatment to resume negative pressure in between treatments. He will continue to use the surgical shoe for offloading. He would continue to benefit from hyperbaric oxygen treatment to help heal his wound and salvage his limb from amputation given his comorbid arterial disease and DFU. Oxycodone 5 mg #45 were prescribed for treatment of pain with debridements on 09/11/2019. OARRS was appropriate. No signs of diversion or abuse. Encouraged to call with any increase in pain or drainage, fever or chills. He will benefit from application of an advanced wound healing product such as Primatrix Ag or Epicord to help heal his ulcer and prevent limb loss in conjunction with hyperbaric oxygen treatment as well as wound vac treatment to heal his ulcer and manage the moderate to heavy drainage that is coming from ulcer. F/U in 1 week.
[2019-09-14 10:36] LABS: Bedside Glucose 186 mg/dL (70-110)
[2019-09-14 10:46] VITALS: BP 124/71; BP 151/80; PULSE 73; PULSE 78; RESP 16; RESP 18; TEMP 36.7; TEMP 36.8
[2019-09-14 12:26] LABS: Bedside Glucose 187 mg/dL (70-110)
--- NOTE | 2019-09-14 13:17 | PCM.HBO.PN ---
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 Progress: Today represents the patient's 24th hyperbaric oxygen treatment out of 40 planned sessions. Tolerance of hyperbaric oxygen therapy: Hyperbaric oxygen treatment was provided as per the facility's protocol at 2.0 ANA in 100% oxygen for 90 minutes without air breaks. The patient tolerated hyperbaric oxygen well, without complications or complaints. Upon emergence of the hyperbaric chamber, the patient's vital signs remained stable. He was discharged in good condition. 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) Diabetes with ulcer of toe (Chronic) PAD (peripheral artery disease) (Chronic) Cellulitis and abscess of foot (Chronic) Type 2 diabetes, controlled, with ulcer of heel (Chronic) Non-healing open wound of heel (Chronic) Hyperlipidemia (Chronic) Peripheral vascular disease (Chronic) Hypertension (Chronic) Coronary artery disease (Chronic) Status post CABG Type II diabetes mellitus (Chronic) Valdze grade 3 Allergies/Adverse Reactions: Allergies rivaroxaban [From Xarelto] Allergy (Verified 02/13/19 16:41) Other Home Medications: Ambulatory Orders Medication Instructions Recorded #17 3 tab PO DAILY 06/13/18 Aspirin [Lite Coat Aspirin] 325 mg PO DAILY 06/13/18 [id number] 1 PO DAILY 06/13/18 Calcium Lactate 1 PO DAILY 06/13/18 Cat C 2 PO DAILY 06/13/18 Cat E2 8 PO DAILY 06/13/18 Cholecalciferol (Vitamin D3) 5,000 mg PO DAILY 06/13/18 [Vitamin D3] Colon Clear 1 tab PO PRN PRN 06/13/18 Inositol 2 PO PRN PRN 06/13/18 Intestinal Cleanse No 1 3 tab PO PRN PRN 06/13/18 Koncentrated K 1 tab PO DAILY 06/13/18 Mag Lactate 1 PO DAILY 06/13/18 Nattokinase 2 tab PO DAILY 06/13/18 Potassium-Derick 1 PO DAILY 06/13/18 Tuna 03 Oil 3 PO DAILY 06/13/18 Zn-Zyme 1 PO DAILY 06/13/18 Clopidogrel Bisulfate [Clopidogrel] 75 mg PO DAILY 09/08/18 traMADol [Ultram] 50 tablet PO PRN PRN 09/08/18 Aurum Metallicum 2 drp PO DAILY 02/13/19 Cbd Oil DAILY 02/13/19 Sibling Family History: Cancer Maternal Family History: Diabetes, Heart Disease, Hypertension, Stroke Paternal Family History: Diabetes, Heart Disease, Pulmonary Disease Smoking Status: Never smoker Tobacco Use: Non-smoker Alcohol: None Drugs: None Physical Exam Vital Signs Temp Pulse Resp BP 98.0 F 78 18 124/71 H 09/14/19 10:46 09/14/19 10:46 09/14/19 10:46 09/14/19 10:46 General: Alert, Oriented x3, Cooperative HEENT: Atraumatic, TM's Clear Lungs: Clear to auscultation, Normal air movement Cardiovascular: Regular rate, Regular Rhythm Psych/Mental Status: Normal Affect, Appropriate Assessment/Plan Active Problems Type 2 diabetes, uncontrolled, with ulcer of heel (Chronic) right plantar heel PAD (peripheral artery disease) (Chronic) Cellulitis and abscess of foot (Chronic) Type 2 diabetes, controlled, with ulcer of heel (Chronic) The patient appears to be tolerating hyperbaric oxygen therapy well, which will be continued as per the patient's medical plan. [id number]
[2019-09-15 10:06] LABS: Bedside Glucose 160 mg/dL (70-110)
[2019-09-15 12:20] LABS: Bedside Glucose 152 mg/dL (70-110)
[2019-09-15 12:44] VITALS: BP 135/73; BP 150/76; PULSE 78; PULSE 79; RESP 16; RESP 18; TEMP 36.2; TEMP 36.7
--- NOTE | 2019-09-15 12:55 | PCM.HBO.PN ---
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 Progress: Today represents the patient's 25th hyperbaric oxygen treatment out of 40 planned sessions. Tolerance of hyperbaric oxygen therapy: Hyperbaric oxygen treatment was provided as per the facility's protocol at 2.0 ANA in 100% oxygen for 90 minutes without air breaks. The patient tolerated hyperbaric oxygen well, without complications or complaints. Upon emergence of the hyperbaric chamber, the patient's vital signs remained stable. He was discharged in good condition. Blood glucose monitoring was documented both before and after treatment, and is documented elsewhere. 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) Diabetes with ulcer of toe (Chronic) PAD (peripheral artery disease) (Chronic) Cellulitis and abscess of foot (Chronic) Type 2 diabetes, controlled, with ulcer of heel (Chronic) Non-healing open wound of heel (Chronic) Hyperlipidemia (Chronic) Peripheral vascular disease (Chronic) Hypertension (Chronic) Coronary artery disease (Chronic) Status post CABG Type II diabetes mellitus (Chronic) Valdez grade 3 Allergies/Adverse Reactions: Allergies rivaroxaban [From Xarelto] Allergy (Verified 02/13/19 16:41) Other Home Medications: Ambulatory Orders Medication Instructions Recorded #17 3 tab PO DAILY 06/13/18 Aspirin [Lite Coat Aspirin] 325 mg PO DAILY 06/13/18 [id number] 1 PO DAILY 06/13/18 Calcium Lactate 1 PO DAILY 06/13/18 Cat C 2 PO DAILY 06/13/18 Cat E2 8 PO DAILY 06/13/18 Cholecalciferol (Vitamin D3) 5,000 mg PO DAILY 06/13/18 [Vitamin D3] Colon Clear 1 tab PO PRN PRN 06/13/18 Inositol 2 PO PRN PRN 06/13/18 Intestinal Cleanse No 1 3 tab PO PRN PRN 06/13/18 Koncentrated K 1 tab PO DAILY 06/13/18 Mag Lactate 1 PO DAILY 06/13/18 Nattokinase 2 tab PO DAILY 06/13/18 Potassium-Derick 1 PO DAILY 06/13/18 Tuna 03 Oil 3 PO DAILY 06/13/18 Zn-Zyme 1 PO DAILY 06/13/18 Clopidogrel Bisulfate [Clopidogrel] 75 mg PO DAILY 09/08/18 traMADol [Ultram] 50 tablet PO PRN PRN 09/08/18 Aurum Metallicum 2 drp PO DAILY 02/13/19 Cbd Oil DAILY 02/13/19 Sibling Family History: Cancer Maternal Family History: Diabetes, Heart Disease, Hypertension, Stroke Paternal Family History: Diabetes, Heart Disease, Pulmonary Disease Smoking Status: Never smoker Tobacco Use: Non-smoker Alcohol: None Drugs: None Physical Exam Vital Signs Temp Pulse Resp BP 97.1 F L 78 16 135/73 H 09/15/19 12:44 09/15/19 12:44 09/15/19 12:44 09/15/19 12:44 General: Alert, Oriented x3, Cooperative, No apparent distress HEENT: Atraumatic, PERRLA, EOMI, Normocephalic Lungs: Normal air movement Psych/Mental Status: Normal Affect, Appropriate, Alert and oriented to time, place, person, mood and affect Assessment/Plan Active Problems Type 2 diabetes, uncontrolled, with ulcer of heel (Chronic) right plantar heel PAD (peripheral artery disease) (Chronic) Cellulitis and abscess of foot (Chronic) Type 2 diabetes, controlled, with ulcer of heel (Chronic) The patient appears to be tolerating hyperbaric oxygen therapy well, which will be continued as per the patient's medical plan.
== END 2019-09-15 23:59 ==
LOC: WC 10:00
PROVIDERS: Family Provider Family Medicine; PCP Family Medicine; Referring Provider Family Medicine; Visit Provider Family Medicine
DX: E11.621 Type 2 diabetes mellitus with foot ulcer (principal); E11.51 Type 2 diabetes mellitus with diabetic peripheral angiopathy without gangrene; E78.5 Hyperlipidemia, unspecified; I25.10 Atherosclerotic heart disease of native coronary artery without angina pectoris; I10 Essential (primary) hypertension; L97.412 Non-pressure chronic ulcer of right heel and midfoot with fat layer exposed; Z95.1 Presence of aortocoronary bypass graft; Z79.899 Other long term (current) drug therapy; Z79.82 Long term (current) use of aspirin; Z79.02 Long term (current) use of antithrombotics/antiplatelets; E11.65 Type 2 diabetes mellitus with hyperglycemia; L03.119 Cellulitis of unspecified part of limb; L02.619 Cutaneous abscess of unspecified foot
CPT/HCPCS: 11042; 82962; 87070; 87075; 87077; 87186; 87205; 97607; 99183; 99212; G0277; G0463

== ENCOUNTER → 2019-10-07 11:16 | Outpatient (CLI) | payer MEDICARE, OTHER, SELFPAY ==
[2019-09-04 13:18] VITALS: BMI 24.9
[2019-10-02 13:22] VITALS: BMI 24.9
--- NOTE | 2019-10-07 11:21 | CT_ITS ---
STUDY: CT BRAIN WITHOUT CONTRAST REASON FOR EXAM: Male, 69 years old. DIZZINESS/HEADACHE RADIATION DOSAGE (If Supplied By Facility): CTDIvol = ( 44.99 ) mGy, DLP = ( 880.47 ) mGycm TECHNIQUE: Transaxial CT imaging of the brain was performed without administration of intravenous contrast material. Individualized dose optimization techniques were used for this CT. COMPARISON: No relevant priors. FINDINGS: Normal soft tissue structures. Normal calvarium. There is mild cerebral atrophy with widening of the extra-axial spaces and ventricular dilatation. Focal area of encephalomalacia in the posterior right parietal lobe. No significant mass effect is seen. This may represent area of prior ischemic insult. Normal basal ganglia and thalami. Normal brainstem. Normal cerebellum. There is no intracranial hemorrhage. There are no findings of an acute ischemic infarction. Atherosclerotic calcification of the cavernous portions of the internal carotid arteries bilaterally. Normal visualized paranasal sinuses. CT/Brain/Head without Contrast IMPRESSION: Chronic involutional changes of the brain. Findings suggestive of encephalomalacia in the posterior right parietal lobe. Electronically Signed: Cedric Mercer, at 11:44 EDT , Service support ,
--- NOTE | 2019-10-07 12:52 | NEURO ---
NCS and/or EMG Patient Report Ordering Doctor: Mckayla Silva DATE OF SERVICE: 10/07/19 Gibson Rodriguez is a 69-year-old male presents for electrodiagnostic testing of the right upper limb. He reports numbness in the right hand and pain in the neck and right arm. Electrodiagnostic findings: Right median motor nerve demonstrates prolonged distal latency with reduced amplitude and conduction velocity. Right ulnar motor responses within normal limits prolonged right median F-wave. Prolonged right median sensory latency at the wrist. Prolonged right median palmar latency. Normal right radial and ulnar sensory responses. On needle EMG, all muscles tested in the right upper limb showed no evidence of denervation with normal motor unit action potentials. Electrodiagnostic impression: This is an abnormal study in the right upper limb 1. Electrodiagnostic findings demonstrate right-sided median mononeuropathy. This is consistent with an advanced right carpal tunnel syndrome. 2. No electrodiagnostic evidence is noted for cervical radiculopathy If there are any further questions please do not hesitate to contact me.
== END ==
PROVIDERS: PCP Family Medicine; Referring Provider Family Medicine; Visit Provider Family Medicine
DX: R51 Headache (principal); R42 Dizziness and giddiness; R20.0 Anesthesia of skin; I69.30 Unspecified sequelae of cerebral infarction; M62.50 Muscle wasting and atrophy, not elsewhere classified, unspecified site; E11.621 Type 2 diabetes mellitus with foot ulcer; E11.51 Type 2 diabetes mellitus with diabetic peripheral angiopathy without gangrene; E78.5 Hyperlipidemia, unspecified; L97.412 Non-pressure chronic ulcer of right heel and midfoot with fat layer exposed; L03.119 Cellulitis of unspecified part of limb; I25.10 Atherosclerotic heart disease of native coronary artery without angina pectoris; I10 Essential (primary) hypertension; Z95.1 Presence of aortocoronary bypass graft
CPT/HCPCS: 70450; 82962; 95886; 95910

== ENCOUNTER 2019-10-15 10:30 | Outpatient (RCR) | payer MEDICARE, OTHER, SELFPAY ==
[2019-09-11 12:45] VITALS: BMI 24.9
[2019-09-16 00:23] VITALS: BP 135/73; PULSE 78; RESP 16; TEMP 36.2
[2019-09-16 10:26] LABS: Bedside Glucose 272 mg/dL (70-110)
[2019-09-16 10:26] LABS: Bedside Glucose 269 mg/dL (70-110)
[2019-09-16 10:36] LABS: Bedside Glucose 240 mg/dL (70-110)
[2019-09-16 10:44] VITALS: BP 126/72; BP 137/76; PULSE 69; PULSE 80; RESP 16; RESP 18; TEMP 36.8; TEMP 36.9
[2019-09-16 11:50] VITALS: BP 131/85; PULSE 83; RESP 18; TEMP 36.4; BMI 24.9
--- NOTE | 2019-09-16 12:10 | HBO.PN.PCM_ITS ---
History of Present Illness Date of Service: 09/16/19 Presenting Chief Complaint: Nonhealing ulcer right heel, Valdez Grade 3 diabetic ulcer TRAM RIVERA is a 69 year old currently undergoing hyperbaric oxygen therapy for Progress: Today represents a 26 treatment of hyperbaric oxygen therapy. He is scheduled for 40 treatments at Tolerance of hyperbaric oxygen therapy: Hyperbaric oxygen therapy was provided as per protocol of [facility] at 2.0 ANA of 100% oxygen for 90 minutes with out air breaks. Patient has tolerated the hyperbaric oxygen therapy well, without complaints and vital signs are stable upon emergence from the chamber patient is discharged in good condition and blood sugars have been monitored before and after. 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) Diabetes with ulcer of toe (Chronic) PAD (peripheral artery disease) (Chronic) Cellulitis and abscess of foot (Chronic) Type 2 diabetes, controlled, with ulcer of heel (Chronic) Non-healing open wound of heel (Chronic) Hyperlipidemia (Chronic) Peripheral vascular disease (Chronic) Hypertension (Chronic) Coronary artery disease (Chronic) Status post CABG Type II diabetes mellitus (Chronic) Valdez grade 3 Allergies/Adverse Reactions: Allergies rivaroxaban [From Xarelto] Allergy (Verified 02/13/19 16:41) Other Home Medications: Ambulatory Orders Medication Instructions Recorded #17 3 tab PO DAILY 06/13/18 Aspirin [Lite Coat Aspirin] 325 mg PO DAILY 06/13/18 [id number] 1 PO DAILY 06/13/18 Calcium Lactate 1 PO DAILY 06/13/18 Cat C 2 PO DAILY 06/13/18 Cat E2 8 PO DAILY 06/13/18 Cholecalciferol (Vitamin D3) 5,000 mg PO DAILY 06/13/18 [Vitamin D3] Colon Clear 1 tab PO PRN PRN 06/13/18 Inositol 2 PO PRN PRN 06/13/18 Intestinal Cleanse No 1 3 tab PO PRN PRN 06/13/18 Koncentrated K 1 tab PO DAILY 06/13/18 Mag Lactate 1 PO DAILY 06/13/18 Nattokinase 2 tab PO DAILY 06/13/18 Potassium-Derick 1 PO DAILY 06/13/18 Tuna 03 Oil 3 PO DAILY 06/13/18 Zn-Zyme 1 PO DAILY 06/13/18 Clopidogrel Bisulfate [Clopidogrel] 75 mg PO DAILY 09/08/18 traMADol [Ultram] 50 tablet PO PRN PRN 09/08/18 Aurum Metallicum 2 drp PO DAILY 02/13/19 Cbd Oil DAILY 02/13/19 Sibling Family History: Cancer Maternal Family History: Diabetes, Heart Disease, Hypertension, Stroke Paternal Family History: Diabetes, Heart Disease, Pulmonary Disease Smoking Status: Never smoker Tobacco Use: Non-smoker Physical Exam Vital Signs Temp Pulse Resp BP 97.5 F L 83 18 131/85 H 09/16/19 11:50 09/16/19 11:50 09/16/19 11:50 09/16/19 11:50 Assessment/Plan Patient has tolerated hyperbaric oxygen therapy well and will continue with treatments as scheduled
[2019-09-16 12:45] LABS: Bedside Glucose 165 mg/dL (70-110)
[2019-09-17 10:11] LABS: Bedside Glucose 238 mg/dL (70-110)
[2019-09-17 10:44] VITALS: BP 128/75; BP 128/76; PULSE 76; RESP 16; RESP 18; TEMP 35.9; TEMP 36.9
[2019-09-17 12:25] LABS: Bedside Glucose 151 mg/dL (70-110)
--- NOTE | 2019-09-17 13:43 | PCM.HBO.PN ---
History of Present Illness Date of Service: 09/17/19 Presenting Chief Complaint: Nonhealing ulcer right heel, Valdez Grade 3 diabetic ulcer TRAM RIVERA is a 69 year old currently undergoing hyperbaric oxygen therapy for Progress: Today represents a 27th treatment of hyperbaric oxygen therapy. He is scheduled for 40 treatments. Tolerance of hyperbaric oxygen therapy: Hyperbaric oxygen therapy was provided as per [facility] protocol at 2.0 ANA of 100% oxygen for 90 minutes with out air breaks. Patient tolerated the hyperbaric oxygen therapy well, without complaints and vital signs remained stable upon emergence from the chamber. He was discharged in good condition. 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) Diabetes with ulcer of toe (Chronic) PAD (peripheral artery disease) (Chronic) Cellulitis and abscess of foot (Chronic) Type 2 diabetes, controlled, with ulcer of heel (Chronic) Non-healing open wound of heel (Chronic) Hyperlipidemia (Chronic) Peripheral vascular disease (Chronic) Hypertension (Chronic) Coronary artery disease (Chronic) Status post CABG Type II diabetes mellitus (Chronic) Valdez grade 3 Allergies/Adverse Reactions: Allergies rivaroxaban [From Xarelto] Allergy (Verified 02/13/19 16:41) Other Home Medications: Ambulatory Orders Medication Instructions Recorded #17 3 tab PO DAILY 06/13/18 Aspirin [Lite Coat Aspirin] 325 mg PO DAILY 06/13/18 [id number] 1 PO DAILY 06/13/18 Calcium Lactate 1 PO DAILY 06/13/18 Cat C 2 PO DAILY 06/13/18 Cat E2 8 PO DAILY 06/13/18 Cholecalciferol (Vitamin D3) 5,000 mg PO DAILY 06/13/18 [Vitamin D3] Colon Clear 1 tab PO PRN PRN 06/13/18 Inositol 2 PO PRN PRN 06/13/18 Intestinal Cleanse No 1 3 tab PO PRN PRN 06/13/18 Koncentrated K 1 tab PO DAILY 06/13/18 Mag Lactate 1 PO DAILY 06/13/18 Nattokinase 2 tab PO DAILY 06/13/18 Potassium-Derick 1 PO DAILY 06/13/18 Tuna 03 Oil 3 PO DAILY 06/13/18 Zn-Zyme 1 PO DAILY 06/13/18 Clopidogrel Bisulfate [Clopidogrel] 75 mg PO DAILY 09/08/18 traMADol [Ultram] 50 tablet PO PRN PRN 09/08/18 Aurum Metallicum 2 drp PO DAILY 02/13/19 Cbd Oil DAILY 02/13/19 Sibling Family History: Cancer Maternal Family History: Diabetes, Heart Disease, Hypertension, Stroke Paternal Family History: Diabetes, Heart Disease, Pulmonary Disease Smoking Status: Never smoker Tobacco Use: Non-smoker Physical Exam Vital Signs Temp Pulse Resp BP 98.4 F 76 18 128/75 H 09/17/19 10:44 09/17/19 10:44 09/17/19 10:44 09/17/19 10:44 General: Alert, Oriented x3, Cooperative, No apparent distress HEENT: Atraumatic, Normocephalic Lungs: Normal air movement Psych/Mental Status: Normal Affect Assessment/Plan Patient tolerated hyperbaric oxygen well which will be continued per Patient's medical plan. HBO Supervision.
[2019-09-18 09:56] LABS: Bedside Glucose 223 mg/dL (70-110)
[2019-09-18 10:35] VITALS: BP 138/82; BP 139/79; PULSE 72; PULSE 81; RESP 16; TEMP 36.5; TEMP 36.6
[2019-09-18 12:21] LABS: Bedside Glucose 155 mg/dL (70-110)
[2019-09-18 12:38] VITALS: BP 138/82; PULSE 72; RESP 16; TEMP 36.5; BMI 24.9
--- NOTE | 2019-09-18 14:56 | PCM.HBO.PN ---
History of Present Illness Date of Service: 09/18/19 Presenting Chief Complaint: Nonhealing ulcer right heel, Valdez Grade 3 diabetic ulcer TRAM RIVERA is a 69 year old currently undergoing hyperbaric oxygen therapy for Progress: Today represents a 28th treatment of hyperbaric oxygen therapy. He is scheduled for 40 treatments. Tolerance of hyperbaric oxygen therapy: Hyperbaric oxygen therapy was provided as per [facility] protocol at 2.0 ANA of 100% oxygen for 90 minutes with out air breaks. Patient tolerated the hyperbaric oxygen therapy well, without complaints and vital signs remained stable upon emergence from the chamber. He was discharged in good condition. 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) Diabetes with ulcer of toe (Chronic) PAD (peripheral artery disease) (Chronic) Cellulitis and abscess of foot (Chronic) Type 2 diabetes, controlled, with ulcer of heel (Chronic) Non-healing open wound of heel (Chronic) Hyperlipidemia (Chronic) Peripheral vascular disease (Chronic) Hypertension (Chronic) Coronary artery disease (Chronic) Status post CABG Type II diabetes mellitus (Chronic) Valdez grade 3 Allergies/Adverse Reactions: Allergies rivaroxaban [From Xarelto] Allergy (Verified 02/13/19 16:41) Other Home Medications: Ambulatory Orders Medication Instructions Recorded #17 3 tab PO DAILY 06/13/18 Aspirin [Lite Coat Aspirin] 325 mg PO DAILY 06/13/18 [id number] 1 PO DAILY 06/13/18 Calcium Lactate 1 PO DAILY 06/13/18 Cat C 2 PO DAILY 06/13/18 Cat E2 8 PO DAILY 06/13/18 Cholecalciferol (Vitamin D3) 5,000 mg PO DAILY 06/13/18 [Vitamin D3] Colon Clear 1 tab PO PRN PRN 06/13/18 Inositol 2 PO PRN PRN 06/13/18 Intestinal Cleanse No 1 3 tab PO PRN PRN 06/13/18 Koncentrated K 1 tab PO DAILY 06/13/18 Mag Lactate 1 PO DAILY 06/13/18 Nattokinase 2 tab PO DAILY 06/13/18 Potassium-Derick 1 PO DAILY 06/13/18 Tuna 03 Oil 3 PO DAILY 06/13/18 Zn-Zyme 1 PO DAILY 06/13/18 Clopidogrel Bisulfate [Clopidogrel] 75 mg PO DAILY 09/08/18 traMADol [Ultram] 50 tablet PO PRN PRN 09/08/18 Aurum Metallicum 2 drp PO DAILY 02/13/19 Cbd Oil DAILY 02/13/19 Sibling Family History: Cancer Maternal Family History: Diabetes, Heart Disease, Hypertension, Stroke Paternal Family History: Diabetes, Heart Disease, Pulmonary Disease Lives: Spouse/ Significant Other Smoking Status: Never smoker Tobacco Use: Non-smoker Alcohol: None Drugs: None Physical Exam Vital Signs Temp Pulse Resp BP 97.7 F L 72 16 138/82 H 09/18/19 12:38 09/18/19 12:38 09/18/19 12:38 09/18/19 12:38 General: Alert, Oriented x3, Cooperative, No apparent distress Psych/Mental Status: Normal Affect, Appropriate Assessment/Plan Active Problems PAD (peripheral artery disease) (Chronic) Type 2 diabetes, controlled, with ulcer of heel (Chronic) Peripheral vascular disease (Chronic) Type II diabetes mellitus (Chronic) Valdez grade 3 Patient tolerated hyperbaric oxygen well which will be continued per Patient's medical plan.
--- NOTE | 2019-09-18 17:09 | PCM.WC.PN ---
(1) PAD (peripheral artery disease) Status: Chronic Current Visit: Yes Code(s): I73.9 - Peripheral vascular disease, unspecified (2) Cellulitis and abscess of foot Status: Chronic Current Visit: Yes Code(s): L03.119 - Cellulitis of unspecified part of limb; L02.619 - Cutaneous abscess of unspecified foot (3) Type 2 diabetes, controlled, with ulcer of heel Status: Chronic Current Visit: Yes Code(s): E11.621 - Type 2 diabetes mellitus with foot ulcer; L97.409 - Non-pressure chronic ulcer of unspecified heel and midfoot with unspecified severity (4) Peripheral vascular disease Status: Chronic Current Visit: Yes Code(s): I73.9 - Peripheral vascular disease, unspecified (5) Type II diabetes mellitus Status: Chronic Current Visit: Yes Qualifiers: Diabetes mellitus superintendent container terminal insulin use: unspecified superintendent container terminal insulin use status Diabetes mellitus complication status: with skin complications Diabetes mellitus complication detail: with foot ulcer Qualified Code(s): E11.621 - Type 2 diabetes mellitus with foot ulcer; L97.509 - Non-pressure chronic ulcer of other part of unspecified foot with unspecified severity Code(s): E11.9 - Type 2 diabetes mellitus without complications Comment: Valdez grade 3 Type of Wound Date of Service: 09/18/19 Chief Complaint: Nonhealing ulcer right heel, Valdez Grade 3 diabetic ulcer History of Wound: Gibson is here for evaluation of an ulcer of his right heel. He was recently treated for this same area with Theraskin application and was discharged approximately 8 weeks ago. He has noticed increased pain in his heel for the last 2 weeks and last his noted that the area had opened after his hydro pneumatic tester had debrided some callus from the area. He has been applying Aquacel and gauze to the ulcer. He does follow with Dr. Navas regularly and had a bypass of his right SFA and popliteal arteries earlier this year. He has had procedures for his arterial disease in past to both of his lower extremities. He has tried alternative treatments with supplements and chelation therapy in the past. He also has diabetes and recent A1C was 7.2% He does wear diabetic shoes. He had been undergoing chelation treatments by Dr. German in [place]. He denies fever, chills, erythema or heavy drainage. He reports significant pain and discomfort of his right heel and his entire right leg which no one can explain. In March 2019, he was hospitalized due to occlusion of his bypass graft in his right leg and Dr. Navas was able to open it 50%. He also has blockages in his left leg. Dr. Navas is unable to revascularize either leg at this time and he may ultimately require limb amputation if his vascular disease worsens. Progress of Wound: Gibson is here to follow up for nonhealing ulcer of his right heel. He reports decreased pain in his right heel this week. Xrays did not show osteomyelitis He is tolerating Fibracol dressings and COTY wound vac. He is improving with the combination of hyperbaric oxygen treatments and COTY wound vac. He will continue cefdinir and flagyl. There is a moderate to heavy amount of drainage but there has been no leakage through his dressings. Denies fever, chills, erythema. - Physical Exam Vital Signs Temp Pulse Resp BP 97.7 F L 72 16 138/82 H 09/18/19 12:38 09/18/19 12:38 09/18/19 12:38 09/18/19 12:38 General: Alert, Oriented x3, Cooperative, No apparent distress Extremities: Edema Skin: Ulcer/ Wound Wound Measurements and Assessment WC - Nurse 1 - General Ulcer Measurement Start: 09/16/19 10:44 Freq: Status: Active Protocol: Activity Type Activity Date Activity User E-Sign Co-Sign Detail Recorded Client Recorded Date Recorded By Document 09/16/19 11:50 DV [id number] 09/16/19 12:09 DV Document 09/18/19 12:38 [facility] [id number] 09/18/19 12:41 [facility] 09/16/19 09/18/19 11:50 12:38 Wound Center Nurse 1 [Ulcer Assessment] #16 Left Lateral Whitney -Combined with other wound No No -Current Size (cm) - Length 1.5 0.1 -Current Size (cm) - Width 1.1 0.1 -Current Size (cm) - Depth 0.1 0.1 -Total Square Cm 1.65 0.01 -Epithelialization Large 67-100% #15 Left Whitney -Combined with other wound No No -Current Size (cm) - Length 1.1 0.1 -Current Size (cm) - Width 2 0.1 -Current Size (cm) - Depth 5 0.1 -Total Square Cm 2.2 0.01 -Photo Taken Yes -Epithelialization Large 67-100% #14- R HEEL -Combined with other wound No -Current Size (cm) - Length 0.7 -Current Size (cm) - Width 0.9 -Current Size (cm) - Depth 0.1 -Total Square Cm 0.63 -Photo Taken No -Epithelialization None Present -Tunneling No -Undermining/Tunneling No -Circular Undermining No -Exudate Amt Small -Exudate Type Serosanguineous -Granulation Amt Medium (34-66%) -Granulation Quality [place] -Slough/Fibrin Yes -Necrosis Amt Medium (34-66%) -Necrotic Tissue Type Adherent Slough -Texture (Shahana-wound Skin Appearance) Assessed,Callus ,Scarring -Moisture (Shahana-wound Skin Appearance Assessed,Dry/ ) Scaly -Color (Shahana-wound Skin Appearance) Assessed -Temperature (Shahana-wound Skin No Abnormality Appearance) (Pt Warm) -Tenderness on Palpation (Shahana-wound Yes Skin Appearance) -Ulcer Cleansing soapy water -Foul Odor after Cleansing No -Anesthetic Used 5% Lidocaine Gel WC - Nurse 2 - General Ulcer CM Notes Start: 09/16/19 10:44 Freq: Status: Active Protocol: Activity Type Activity Date Activity User E-Sign Co-Sign Detail Recorded Client Recorded Date Recorded By Document 09/18/19 13:33 DV [id number] 09/18/19 13:40 DV 09/18/19 13:33 Wound Center Nurse 2 [Procedure/Treatment] #16 Left Lateral Whitney -Time 13:34 -Bleeding Controlled with Pressure #14- R HEEL -Time 13:36 -Correct Patient Yes -Correct Side, Site, Position Yes -Correct Procedure Yes -Procedure Performed Yes -Type of Procedure Debridement -Clinical Debridement Subcutaneous -Post Debridement Size (cm) - Length 1.0 -Post Debridement Size (cm) - Width 0.8 -Post Debridement Size (cm) - Depth 0.7 -Total Square Cm 0.80 -Wound/Ulcer Outcome Not Healed -Ulcer Cleansing Rinsed/ Irrigated with Saline -Foul Odor after Cleansing No -Bioengineered Tissue No -Bleeding Controlled with Pressure -Type of Offloading Surgical Shoe -Treatment Response Procedure Tolerated Well [See Physician Procedure note for Specifics] Pain Scale: 0-10 Numeric [Pain] -Is Patient Pain Free? Yes Psych/Mental Status: Normal Affect, Appropriate Debridement Note Post-Debridement Measurements/Treatment WC - Nurse 2 - General Ulcer CM Notes Start: 09/16/19 10:44 Freq: Status: Active Protocol: Activity Type Activity Date Activity User E-Sign Co-Sign Detail Recorded Client Recorded Date Recorded By Document 09/18/19 13:33 DV [id number] 09/18/19 13:40 DV 09/18/19 13:33 Wound Center Nurse 2 #16 Left Lateral Whitney -Time 13:34 -Bleeding Controlled with Pressure #14- R HEEL -Time 13:36 -Correct Patient Yes -Correct Side, Site, Position Yes -Correct Procedure Yes -Procedure Performed Yes -Type of Procedure Debridement -Clinical Debridement Subcutaneous -Post Debridement Size (cm) - Length 1.0 -Post Debridement Size (cm) - Width 0.8 -Post Debridement Size (cm) - Depth 0.7 -Total Square Cm 0.80 -Wound/Ulcer Outcome Not Healed -Ulcer Cleansing Rinsed/ Irrigated with Saline -Foul Odor after Cleansing No -Bioengineered Tissue No -Bleeding Controlled with Pressure -Type of Offloading Surgical Shoe -Treatment Response Procedure Tolerated Well Pain Scale: 0-10 Numeric Is Patient Pain Free? Yes Wound debrided: right heel Laterality: Right Wound Grade/Stage: Valdez Grade 3 Type of Debridement: Excisional debridement Anesthesia Used: 4% Lidocaine Solution, 5% Lidocaine Gel, Cetacaine - 5 ml 2% lidocaine Depth: Down to and including healthy tissue, in the subcutaneous layer Percentage of wound debrided: 100 Instrument Used: 5mm curette Tissue Removed: yellow slough, devitalized tissue Severity: Fat Layer Exposed Amount of bleeding with debridement: Mild Bleeding Controlled with: Compression and gauze Patient tolerated procedure well Assessment/Plan Active Problems PAD (peripheral artery disease) (Chronic) Cellulitis and abscess of foot (Chronic) Type 2 diabetes, controlled, with ulcer of heel (Chronic) Peripheral vascular disease (Chronic) Type II diabetes mellitus (Chronic) Valdez grade 3 Assessment: 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 Diabetes mellitus - controlled. Peripheral vascular disease - status post revascularization 08/07/18 and 03/2019 Plan: Demetriuss ulcer was evaluated and debrided today with slight improvement in his ulcer compared to last week. He is tolerating HBO treatment and without this treatment I do not feel he would achieve progress in healing his ulcer. He has had 28 HBO treatments. It is medically necessary that he continue with hyperbaric oxygen treatments. Ulcer will be dressed using Aquacel Ag to the ulcer bed and then COTY wound vac was placed over his heel ulcer. He will benefit from COTY wound vac to be able to leave the vac and tubing in place while he undergoes HBO treatment to resume negative pressure in between treatments. He will continue to use the surgical shoe for offloading. He would continue to benefit from hyperbaric oxygen treatment to help heal his wound and salvage his limb from amputation given his comorbid arterial disease and DFU. Oxycodone 5 mg #45 were prescribed for treatment of pain with debridements on 09/11/2019. OARRS was appropriate. No signs of diversion or abuse. Encouraged to call with any increase in pain or drainage, fever or chills. He will benefit from application of an advanced wound healing product such as Primatrix Ag or Epicord to help heal his ulcer and prevent limb loss in conjunction with hyperbaric oxygen treatment as well as wound vac treatment to heal his ulcer and manage the moderate to heavy drainage that is coming from ulcer. F/U in 1 week.
[2019-09-21 10:21] LABS: Bedside Glucose 224 mg/dL (70-110)
[2019-09-21 10:56] VITALS: BP 128/89; BP 130/71; PULSE 79; PULSE 80; RESP 16; TEMP 36.8; TEMP 36.9
[2019-09-21 12:45] LABS: Bedside Glucose 142 mg/dL (70-110)
[2019-09-22 10:15] LABS: Bedside Glucose 254 mg/dL (70-110)
[2019-09-22 10:59] VITALS: BP 107/55; BP 148/87; PULSE 77; PULSE 93; RESP 16; RESP 18; TEMP 36.2; TEMP 36.3
[2019-09-22 12:41] LABS: Bedside Glucose 159 mg/dL (70-110)
--- NOTE | 2019-09-22 13:27 | HBO.PN.PCM_ITS ---
History of Present Illness Date of Service: 09/22/19 Presenting Chief Complaint: Nonhealing ulcer right heel, Valdez Grade 3 diabetic ulcer TRAM RIVERA is a 69 year old currently undergoing hyperbaric oxygen therapy for Valdez grade 3 diabetic foot ulcer of his right heel. Progress: Today represents a 30th treatment of hyperbaric oxygen therapy. He is scheduled for 40 treatments. Tolerance of hyperbaric oxygen therapy: Hyperbaric oxygen treatment was provided as per the facility's protocol at 2.0 ANA in 100% oxygen for 90 minutes without air breaks. The patient tolerated hyperbaric oxygen well, without complications or complaints. Upon emergence of the hyperbaric chamber, the patient's vital sig ns remained stable. He was discharged in good condition. Blood glucose monitoring was documented both before and after treatment, and is documented elsewhere. 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) Diabetes with ulcer of toe (Chronic) PAD (peripheral artery disease) (Chronic) Cellulitis and abscess of foot (Chronic) Type 2 diabetes, controlled, with ulcer of heel (Chronic) Non-healing open wound of heel (Chronic) Hyperlipidemia (Chronic) Peripheral vascular disease (Chronic) Hypertension (Chronic) Coronary artery disease (Chronic) Status post CABG Type II diabetes mellitus (Chronic) Valdez grade 3 Allergies/Adverse Reactions: Allergies rivaroxaban [From Xarelto] Allergy (Verified 02/13/19 16:41) Other Home Medications: Ambulatory Orders Medication Instructions Recorded #17 3 tab PO DAILY 06/13/18 Aspirin [Lite Coat Aspirin] 325 mg PO DAILY 06/13/18 [id number] 1 PO DAILY 06/13/18 Calcium Lactate 1 PO DAILY 06/13/18 Cat C 2 PO DAILY 06/13/18 Cat E2 8 PO DAILY 06/13/18 Cholecalciferol (Vitamin D3) 5,000 mg PO DAILY 06/13/18 [Vitamin D3] Colon Clear 1 tab PO PRN PRN 06/13/18 Inositol 2 PO PRN PRN 06/13/18 Intestinal Cleanse No 1 3 tab PO PRN PRN 06/13/18 Koncentrated K 1 tab PO DAILY 06/13/18 Mag Lactate 1 PO DAILY 06/13/18 Nattokinase 2 tab PO DAILY 06/13/18 Potassium-Derick 1 PO DAILY 06/13/18 Tuna 03 Oil 3 PO DAILY 06/13/18 Zn-Zyme 1 PO DAILY 06/13/18 Clopidogrel Bisulfate [Clopidogrel] 75 mg PO DAILY 09/08/18 traMADol [Ultram] 50 tablet PO PRN PRN 09/08/18 Aurum Metallicum 2 drp PO DAILY 02/13/19 Cbd Oil DAILY 02/13/19 Sibling Family History: Cancer Maternal Family History: Diabetes, Heart Disease, Hypertension, Stroke Paternal Family History: Diabetes, Heart Disease, Pulmonary Disease Lives: Spouse/ Significant Other Smoking Status: Never smoker Tobacco Use: Non-smoker Alcohol: None Drugs: None Physical Exam Vital Signs Temp Pulse Resp BP 97.3 F L 93 18 107/55 L 09/22/19 10:59 09/22/19 10:59 09/22/19 10:59 09/22/19 10:59 General: Alert, Oriented x3, Cooperative, No apparent distress HEENT: Atraumatic, TM's Clear Lungs: Clear to auscultation, Normal air movement Cardiovascular: Regular rate, Regular Rhythm Psych/Mental Status: Normal Affect, Appropriate, Alert and oriented to time, place, person, mood and affect Assessment/Plan Active Problems PAD (peripheral artery disease) (Chronic) Cellulitis and abscess of foot (Chronic) Type 2 diabetes, controlled, with ulcer of heel (Chronic) Peripheral vascular disease (Chronic) Type II diabetes mellitus (Chronic) Valdez grade 3 Patient tolerated hyperbaric oxygen well which will be continued as per the Patient's medical plan.
--- NOTE | 2019-09-22 16:30 | HBO.PN.PCM_ITS ---
History of Present Illness Date of Service: 09/21/19 Presenting Chief Complaint: Nonhealing ulcer right heel, Valdez Grade 3 diabetic ulcer TRAM RIVERA is a 69 year old currently undergoing hyperbaric oxygen therapy for Valdez grade 3 diabetic foot ulcer of his right heel. Progress: Today represents a 29th treatment of hyperbaric oxygen therapy. He is scheduled for 40 treatments. Tolerance of hyperbaric oxygen therapy: Hyperbaric oxygen treatment was provided as per the facility's protocol at 2.0 ANA in 100% oxygen for 90 minutes without air breaks. The patient tolerated hyperbaric oxygen well, without complications or complaints. Upon emergence of the hyperbaric chamber, the patient's vital sig ns remained stable. He was discharged in good condition. Blood glucose monitoring was documented both before and after treatment, and is documented elsewhere. 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) Diabetes with ulcer of toe (Chronic) PAD (peripheral artery disease) (Chronic) Cellulitis and abscess of foot (Chronic) Type 2 diabetes, controlled, with ulcer of heel (Chronic) Non-healing open wound of heel (Chronic) Hyperlipidemia (Chronic) Peripheral vascular disease (Chronic) Hypertension (Chronic) Coronary artery disease (Chronic) Status post CABG Type II diabetes mellitus (Chronic) Valdez grade 3 Allergies/Adverse Reactions: Allergies rivaroxaban [From Xarelto] Allergy (Verified 02/13/19 16:41) Other Home Medications: Ambulatory Orders Medication Instructions Recorded #17 3 tab PO DAILY 06/13/18 Aspirin [Lite Coat Aspirin] 325 mg PO DAILY 06/13/18 [id number] 1 PO DAILY 06/13/18 Calcium Lactate 1 PO DAILY 06/13/18 Cat C 2 PO DAILY 06/13/18 Cat E2 8 PO DAILY 06/13/18 Cholecalciferol (Vitamin D3) 5,000 mg PO DAILY 06/13/18 [Vitamin D3] Colon Clear 1 tab PO PRN PRN 06/13/18 Inositol 2 PO PRN PRN 06/13/18 Intestinal Cleanse No 1 3 tab PO PRN PRN 06/13/18 Koncentrated K 1 tab PO DAILY 06/13/18 Mag Lactate 1 PO DAILY 06/13/18 Nattokinase 2 tab PO DAILY 06/13/18 Potassium-Derick 1 PO DAILY 06/13/18 Tuna 03 Oil 3 PO DAILY 06/13/18 Zn-Zyme 1 PO DAILY 06/13/18 Clopidogrel Bisulfate [Clopidogrel] 75 mg PO DAILY 09/08/18 traMADol [Ultram] 50 tablet PO PRN PRN 09/08/18 Aurum Metallicum 2 drp PO DAILY 02/13/19 Cbd Oil DAILY 02/13/19 Sibling Family History: Cancer Maternal Family History: Diabetes, Heart Disease, Hypertension, Stroke Paternal Family History: Diabetes, Heart Disease, Pulmonary Disease Lives: Spouse/ Significant Other Smoking Status: Never smoker Tobacco Use: Non-smoker Alcohol: None Drugs: None Physical Exam Vital Signs Temp Pulse Resp BP 97.3 F L 93 18 107/55 L 09/22/19 10:59 09/22/19 10:59 09/22/19 10:59 09/22/19 10:59 General: Alert, Oriented x3, Cooperative HEENT: Atraumatic, TM's Clear Lungs: Clear to auscultation, Normal air movement Cardiovascular: Regular rate, Regular Rhythm Psych/Mental Status: Normal Affect, Appropriate Assessment/Plan Active Problems PAD (peripheral artery disease) (Chronic) Cellulitis and abscess of foot (Chronic) Type 2 diabetes, controlled, with ulcer of heel (Chronic) Peripheral vascular disease (Chronic) Type II diabetes mellitus (Chronic) Valdez grade 3 Patient tolerated hyperbaric oxygen well which will be continued as per the Patient's medical plan. [id number]
[2019-09-23 10:21] LABS: Bedside Glucose 221 mg/dL (70-110)
[2019-09-23 10:35] VITALS: BP 117/67; BP 152/81; PULSE 65; PULSE 81; RESP 16; RESP 18; TEMP 36; TEMP 37
[2019-09-23 12:36] LABS: Bedside Glucose 128 mg/dL (70-110)
--- NOTE | 2019-09-23 13:34 | HBO.PN.PCM_ITS ---
History of Present Illness Date of Service: 09/23/19 Presenting Chief Complaint: Nonhealing ulcer right heel, Valdez Grade 3 diabetic ulcer TRAM RIVERA is a 69 year old currently undergoing hyperbaric oxygen therapy for Valdez grade 3 diabetic foot ulcer of his right heel. Progress: Today represents a 31th treatment of hyperbaric oxygen therapy. He is scheduled for 40 treatments. Tolerance of hyperbaric oxygen therapy: Hyperbaric oxygen treatment was provided as per the facility's protocol at 2.0 ANA in 100% oxygen for 90 minutes without air breaks. The patient tolerated hyperbaric oxygen well, without complications or complaints. Upon emergence of the hyperbaric chamber, the patient's vital sig ns remained stable. He was discharged in good condition. Blood glucose monitoring was documented both before and after treatment, and is documented elsewhere. 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) Diabetes with ulcer of toe (Chronic) PAD (peripheral artery disease) (Chronic) Cellulitis and abscess of foot (Chronic) Type 2 diabetes, controlled, with ulcer of heel (Chronic) Non-healing open wound of heel (Chronic) Hyperlipidemia (Chronic) Peripheral vascular disease (Chronic) Hypertension (Chronic) Coronary artery disease (Chronic) Status post CABG Type II diabetes mellitus (Chronic) Valdez grade 3 Allergies/Adverse Reactions: Allergies rivaroxaban [From Xarelto] Allergy (Verified 02/13/19 16:41) Other Home Medications: Ambulatory Orders Medication Instructions Recorded #17 3 tab PO DAILY 06/13/18 Aspirin [Lite Coat Aspirin] 325 mg PO DAILY 06/13/18 [id number] 1 PO DAILY 06/13/18 Calcium Lactate 1 PO DAILY 06/13/18 Cat C 2 PO DAILY 06/13/18 Cat E2 8 PO DAILY 06/13/18 Cholecalciferol (Vitamin D3) 5,000 mg PO DAILY 06/13/18 [Vitamin D3] Colon Clear 1 tab PO PRN PRN 06/13/18 Inositol 2 PO PRN PRN 06/13/18 Intestinal Cleanse No 1 3 tab PO PRN PRN 06/13/18 Koncentrated K 1 tab PO DAILY 06/13/18 Mag Lactate 1 PO DAILY 06/13/18 Nattokinase 2 tab PO DAILY 06/13/18 Potassium-Derick 1 PO DAILY 06/13/18 Tuna 03 Oil 3 PO DAILY 06/13/18 Zn-Zyme 1 PO DAILY 06/13/18 Clopidogrel Bisulfate [Clopidogrel] 75 mg PO DAILY 09/08/18 traMADol [Ultram] 50 tablet PO PRN PRN 09/08/18 Aurum Metallicum 2 drp PO DAILY 02/13/19 Cbd Oil DAILY 02/13/19 Sibling Family History: Cancer Maternal Family History: Diabetes, Heart Disease, Hypertension, Stroke Paternal Family History: Diabetes, Heart Disease, Pulmonary Disease Lives: Spouse/ Significant Other Smoking Status: Never smoker Tobacco Use: Non-smoker Alcohol: None Drugs: None Physical Exam Vital Signs Temp Pulse Resp BP 96.8 F L 81 18 117/67 09/23/19 10:35 09/23/19 10:35 09/23/19 10:35 09/23/19 10:35 Assessment/Plan Active Problems PAD (peripheral artery disease) (Chronic) Cellulitis and abscess of foot (Chronic) Type 2 diabetes, controlled, with ulcer of heel (Chronic) Peripheral vascular disease (Chronic) Type II diabetes mellitus (Chronic) Valdez grade 3 Patient tolerated hyperbaric oxygen well which will be continued as per the Patient's medical plan.
[2019-09-24 10:45] LABS: Bedside Glucose 194 mg/dL (70-110)
[2019-09-24 12:09] VITALS: BP 136/65; BP 144/71; PULSE 62; PULSE 72; RESP 16; TEMP 36.2; TEMP 36.7
--- NOTE | 2019-09-24 12:09 | HBO.PN.PCM_ITS ---
History of Present Illness Date of Service: 09/24/19 Presenting Chief Complaint: Nonhealing ulcer right heel, Valdez Grade 3 diabetic ulcer TRAM RIVERA is a 69 year old currently undergoing hyperbaric oxygen therapy for Valdez grade 3 diabetic foot ulcer of his right heel. Progress: Today represents a 32nd treatment of hyperbaric oxygen therapy. He is scheduled for 40 treatments. Tolerance of hyperbaric oxygen therapy: Hyperbaric oxygen treatment was provided as per the facility's protocol at 2.0 ANA in 100% oxygen for 90 minutes without air breaks. The patient tolerated hyperbaric oxygen well, without complications or complaints. Upon emergence of the hyperbaric chamber, the patient's vital sig ns remained stable. He was discharged in good condition. 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) Diabetes with ulcer of toe (Chronic) PAD (peripheral artery disease) (Chronic) Cellulitis and abscess of foot (Chronic) Type 2 diabetes, controlled, with ulcer of heel (Chronic) Non-healing open wound of heel (Chronic) Hyperlipidemia (Chronic) Peripheral vascular disease (Chronic) Hypertension (Chronic) Coronary artery disease (Chronic) Status post CABG Type II diabetes mellitus (Chronic) Valdez grade 3 Allergies/Adverse Reactions: Allergies rivaroxaban [From Xarelto] Allergy (Verified 02/13/19 16:41) Other Home Medications: Ambulatory Orders Medication Instructions Recorded #17 3 tab PO DAILY 06/13/18 Aspirin [Lite Coat Aspirin] 325 mg PO DAILY 06/13/18 [id number] 1 PO DAILY 06/13/18 Calcium Lactate 1 PO DAILY 06/13/18 Cat C 2 PO DAILY 06/13/18 Cat E2 8 PO DAILY 06/13/18 Cholecalciferol (Vitamin D3) 5,000 mg PO DAILY 06/13/18 [Vitamin D3] Colon Clear 1 tab PO PRN PRN 06/13/18 Inositol 2 PO PRN PRN 06/13/18 Intestinal Cleanse No 1 3 tab PO PRN PRN 06/13/18 Koncentrated K 1 tab PO DAILY 06/13/18 Mag Lactate 1 PO DAILY 06/13/18 Nattokinase 2 tab PO DAILY 06/13/18 Potassium-Derick 1 PO DAILY 06/13/18 Tuna 03 Oil 3 PO DAILY 06/13/18 Zn-Zyme 1 PO DAILY 06/13/18 Clopidogrel Bisulfate [Clopidogrel] 75 mg PO DAILY 09/08/18 traMADol [Ultram] 50 tablet PO PRN PRN 09/08/18 Aurum Metallicum 2 drp PO DAILY 02/13/19 Cbd Oil DAILY 02/13/19 Sibling Family History: Cancer Maternal Family History: Diabetes, Heart Disease, Hypertension, Stroke Paternal Family History: Diabetes, Heart Disease, Pulmonary Disease Lives: Spouse/ Significant Other Smoking Status: Never smoker Tobacco Use: Non-smoker Alcohol: None Drugs: None Physical Exam Vital Signs Temp Pulse Resp BP 96.8 F L 81 18 117/67 09/23/19 10:35 09/23/19 10:35 09/23/19 10:35 09/23/19 10:35 General: Alert, Oriented x3, Cooperative, No apparent distress HEENT: Atraumatic, Normocephalic Lungs: Normal air movement Psych/Mental Status: Normal Affect Assessment/Plan Active Problems PAD (peripheral artery disease) (Chronic) Cellulitis and abscess of foot (Chronic) Type 2 diabetes, controlled, with ulcer of heel (Chronic) Peripheral vascular disease (Chronic) Type II diabetes mellitus (Chronic) Valdez grade 3 Patient tolerated hyperbaric oxygen well which will be continued as per the Patient's medical plan. HBO supervision
[2019-09-24 13:01] LABS: Bedside Glucose 129 mg/dL (70-110)
[2019-09-25 12:56] LABS: Bedside Glucose 236 mg/dL (70-110)
[2019-09-25 13:15] LABS: Bedside Glucose 126 mg/dL (70-110)
[2019-09-25 13:27] VITALS: BP 140/84; PULSE 79; RESP 18; TEMP 36.8; BMI 24.9
--- NOTE | 2019-09-25 16:29 | HBO.PN.PCM_ITS ---
History of Present Illness Date of Service: 09/25/19 Presenting Chief Complaint: Nonhealing ulcer right heel, Valdez Grade 3 diabetic ulcer TRAM RIVERA is a 69 year old currently undergoing hyperbaric oxygen therapy for Valdez grade 3 diabetic foot ulcer of his right heel. Progress: Today represents a 33rd treatment of hyperbaric oxygen therapy. He is scheduled for 40 treatments. Tolerance of hyperbaric oxygen therapy: Hyperbaric oxygen treatment was provided as per the facility's protocol at 2.0 ANA in 100% oxygen for 90 minutes without air breaks. The patient tolerated hyperbaric oxygen well, without complications or complaints. Upon emergence of the hyperbaric chamber, the patient's vital sig ns remained stable. He was discharged in good condition. This also a 30 day re-evaluation for his hyperbaric oxygen treatment therapy. He is tolerating treatment well and has had mild improvement in his ulcer and significant improvement in pain from the ulcer but it has been complicated by infection. I recommend extending his treatment for 10-20 more hyper baric oxygen treatments to be able to heal his ulcer and prevent limb loss. 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) Diabetes with ulcer of toe (Chronic) PAD (peripheral artery disease) (Chronic) Cellulitis and abscess of foot (Chronic) Type 2 diabetes, controlled, with ulcer of heel (Chronic) Non-healing open wound of heel (Chronic) Hyperlipidemia (Chronic) Peripheral vascular disease (Chronic) Hypertension (Chronic) Coronary artery disease (Chronic) Status post CABG Type II diabetes mellitus (Chronic) Valdez grade 3 Allergies/Adverse Reactions: Allergies rivaroxaban [From Xarelto] Allergy (Verified 02/13/19 16:41) Other Home Medications: Ambulatory Orders Medication Instructions Recorded #17 3 tab PO DAILY 06/13/18 Aspirin [Lite Coat Aspirin] 325 mg PO DAILY 06/13/18 [id number] 1 PO DAILY 06/13/18 Calcium Lactate 1 PO DAILY 06/13/18 Cat C 2 PO DAILY 06/13/18 Cat E2 8 PO DAILY 06/13/18 Cholecalciferol (Vitamin D3) 5,000 mg PO DAILY 06/13/18 [Vitamin D3] Colon Clear 1 tab PO PRN PRN 06/13/18 Inositol 2 PO PRN PRN 06/13/18 Intestinal Cleanse No 1 3 tab PO PRN PRN 06/13/18 Koncentrated K 1 tab PO DAILY 06/13/18 Mag Lactate 1 PO DAILY 06/13/18 Nattokinase 2 tab PO DAILY 06/13/18 Potassium-Derick 1 PO DAILY 06/13/18 Tuna 03 Oil 3 PO DAILY 06/13/18 Zn-Zyme 1 PO DAILY 06/13/18 Clopidogrel Bisulfate [Clopidogrel] 75 mg PO DAILY 09/08/18 traMADol [Ultram] 50 tablet PO PRN PRN 09/08/18 Aurum Metallicum 2 drp PO DAILY 02/13/19 Cbd Oil DAILY 02/13/19 Sibling Family History: Cancer Maternal Family History: Diabetes, Heart Disease, Hypertension, Stroke Paternal Family History: Diabetes, Heart Disease, Pulmonary Disease Lives: Spouse/ Significant Other Smoking Status: Never smoker Tobacco Use: Non-smoker Alcohol: None Drugs: None Physical Exam Vital Signs Temp Pulse Resp BP 98.2 F 79 18 140/84 H 09/25/19 13:27 09/25/19 13:27 09/25/19 13:27 09/25/19 13:27 General: Alert, Oriented x3, Cooperative, No apparent distress Psych/Mental Status: Normal Affect, Appropriate Assessment/Plan Active Problems PAD (peripheral artery disease) (Chronic) Cellulitis and abscess of foot (Chronic) Type 2 diabetes, controlled, with ulcer of heel (Chronic) Peripheral vascular disease (Chronic) Type II diabetes mellitus (Chronic) Valdez grade 3 Patient tolerated hyperbaric oxygen well which will be continued as per the Patient's medical plan. It is my recommendation that his hyperbaric oxygen treatments be extended to 20 more treatments to be able to heal his ulcer. I feel that it is medically necessary to do this in order to prevent loss of his limb.
--- NOTE | 2019-09-25 16:38 | PN.PCM_ITS ---
(1) PAD (peripheral artery disease) Status: Chronic Current Visit: Yes Code(s): I73.9 - Peripheral vascular disease, unspecified (2) Cellulitis and abscess of foot Status: Chronic Current Visit: Yes Code(s): L03.119 - Cellulitis of unspecified part of limb; L02.619 - Cutaneous abscess of unspecified foot (3) Type 2 diabetes, controlled, with ulcer of heel Status: Chronic Current Visit: Yes Code(s): E11.621 - Type 2 diabetes mellitus with foot ulcer; L97.409 - Non-pressure chronic ulcer of unspecified heel and midfoot with unspecified severity (4) Peripheral vascular disease Status: Chronic Current Visit: Yes Code(s): I73.9 - Peripheral vascular disease, unspecified (5) Type II diabetes mellitus Status: Chronic Current Visit: Yes Qualifiers: Diabetes mellitus terminal supervisor insulin use: unspecified terminal supervisor insulin use status Diabetes mellitus complication status: with skin complications Diabetes mellitus complication detail: with foot ulcer Qualified Code(s): E11.621 - Type 2 diabetes mellitus with foot ulcer; L97.509 - Non-pressure chronic ulcer of other part of unspecified foot with unspecified severity Code(s): E11.9 - Type 2 diabetes mellitus without complications Comment: Valdez grade 3 Type of Wound Date of Service: 09/25/19 Chief Complaint: Nonhealing ulcer right heel, Valdez Grade 3 diabetic ulcer History of Wound: Gibson is here for evaluation of an ulcer of his right heel. He was recently treated for this same area with Ther[place]in application and was discharged approximately 8 weeks ago. He has noticed increased pain in his heel for the last 2 weeks and last his noted that the area had opened after his nurse outreach case manager had debrided some callus from the area. He has been applying Aquacel and gauze to the ulcer. He does follow with Dr. Navsa regularly and had a bypass of his right SFA and popliteal arteries earlier this year. He has had procedures for his arterial disease in past to both of his lower extremities. He has tried alternative treatments with supplements and chelation therapy in the past. He also has diabetes and recent A1C was 7.2% He does wear diabetic shoes. He had been undergoing chelation treatments by Dr. German in [place]. He denies fever, chills, erythema or heavy drainage. He reports significant pain and discomfort of his right heel and his entire right leg which no one can explain. In March 2019, he was hospitalized due to occlusion of his bypass graft in his right leg and Dr. Navas was able to open it 50%. He also has blockages in his left leg. Dr. Navas is unable to revascularize either leg at this time and he may ultimately require limb amputation if his vascular disease worsens. Progress of Wound: Gibson is here to follow up for nonhealing ulcer of his right heel. He reports decreased pain in his right heel this week. He is tolerating Fibracol dressings and COTY wound vac. He is improving with the combination of hyperbaric oxygen treatments and COTY wound vac. There is a moderate to heavy amount of drainage but there has been no leakage through his dressings. Denies fever, chills, erythema. - Physical Exam Vital Signs Temp Pulse Resp BP 98.2 F 79 18 140/84 H 09/25/19 13:27 09/25/19 13:27 09/25/19 13:27 09/25/19 13:27 General: Alert, Oriented x3, Cooperative, No apparent distress HEENT: Atraumatic, Normocephalic Oral: Moist Mucosa Extremities: No edema, Cool Skin: Ulcer/ Wound Wound Measurements and Assessment WC - Nurse 1 - General Ulcer Measurement Start: 09/16/19 10:44 Freq: Status: Active Protocol: Activity Type Activity Date Activity User E-Sign Co-Sign Detail Recorded Client Recorded Date Recorded By Document 09/25/19 13:27 MW [id number] 09/25/19 13:40 MW 09/25/19 13:27 Wound Center Nurse 1 [Ulcer Assessment] #14- R HEEL -Combined with other wound No -Current Size (cm) - Length 1.0 -Current Size (cm) - Width 1.0 -Current Size (cm) - Depth 0.3 -Total Square Cm 1.00 -Photo Taken No -Epithelialization None Present -Tunneling No -Undermining/Tunneling No -Circular Undermining No -Exudate Amt Medium -Exudate Type Serosanguineous -Wound Margin Distinct, Outline Attached -Granulation Amt Large (67-100%) -Granulation Quality [place] -Slough/Fibrin Yes -Necrosis Amt Small (1-33%) -Necrotic Tissue Type Adherent Slough -Structure Exposed N/A -Texture (Shahana-wound Skin Appearance) Assessed -Moisture (Shahana-wound Skin Appearance Assessed, ) Maceration -Color (Shahana-wound Skin Appearance) No Abnormality, Assessed -Temperature (Shahana-wound Skin No Abnormality Appearance) (Pt Warm) -Tenderness on Palpation (Shahana-wound Yes Skin Appearance) -Ulcer Cleansing SOAP AND WATER -Foul Odor after Cleansing No -Anesthetic Used 4% Lidocaine Solution,5% Lidocaine Gel [Edema Assessment] -Lower Limb Edema Present No Psych/Mental Status: Normal Affect, Appropriate Debridement Note Post-Debridement Measurements/Treatment WC - Nurse 2 - General Ulcer CM Notes Start: 09/16/19 10:44 Freq: Status: Active Protocol: Activity Type Activity Date Activity User E-Sign Co-Sign Detail Recorded Client Recorded Date Recorded By Document 09/18/19 13:33 DV [id number] 09/18/19 13:40 DV 09/18/19 13:33 Wound Center Nurse 2 #16 Left Lateral Whitney -Time 13:34 -Bleeding Controlled with Pressure #14- R HEEL -Time 13:36 -Correct Patient Yes -Correct Side, Site, Position Yes -Correct Procedure Yes -Procedure Performed Yes -Type of Procedure Debridement -Clinical Debridement Subcutaneous -Post Debridement Size (cm) - Length 1.0 -Post Debridement Size (cm) - Width 0.8 -Post Debridement Size (cm) - Depth 0.7 -Total Square Cm 0.80 -Wound/Ulcer Outcome Not Healed -Ulcer Cleansing Rinsed/ Irrigated with Saline -Foul Odor after Cleansing No -Bioengineered Tissue No -Bleeding Controlled with Pressure -Type of Offloading Surgical Shoe -Treatment Response Procedure Tolerated Well Pain Scale: 0-10 Numeric Is Patient Pain Free? Yes 09/25/2019 R heel ulcer length 1.0 cm width 0.8 cm depth 0.7 cm Wound debrided: right heel Laterality: Right Wound Grade/Stage: Valdez grade 3 Type of Debridement: Excisional debridement Anesthesia Used: 4% Lidocaine Solution, 5% Lidocaine Gel, Cetacaine - lidocaine 2% 5 ml Depth: Down to and including healthy tissue, in the subcutaneous layer Percentage of wound debrided: 100 Instrument Used: 5mm curette Tissue Removed: yellow slough, devitalized tissue Severity: Fat Layer Exposed Amount of bleeding with debridement: Mild Assessment/Plan Active Problems PAD (peripheral artery disease) (Chronic) Cellulitis and abscess of foot (Chronic) Type 2 diabetes, controlled, with ulcer of heel (Chronic) Peripheral vascular disease (Chronic) Type II diabetes mellitus (Chronic) Valdez grade 3 Assessment: 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 Diabetes mellitus - controlled. Peripheral vascular disease - status post revascularization 08/07/18 and 03/2019 Plan: Gibson's ulcer was evaluated and debrided today with slight improvement in his ulcer compared to last week. He is tolerating HBO treatment and without this treatment I do not feel he would achieve progress in healing his ulcer. He has had 32 HBO treatments. It is medically necessary that he continue with hyperbaric oxygen treatments and I am recommending extending his treatments for 20 additional treatments for a total of 60 treatments. Ulcer will be dressed using Promogran to the ulcer bed and then COTY wound vac was placed over his heel ulcer. He will benefit from COTY wound vac to be able to leave the vac and tubing in place while he undergoes HBO treatment to resume negative pressure in between treatments. He will continue to use the surgical shoe for offloading. He would continue to benefit from hyperbaric oxygen treatment to help heal his wound and salvage his limb from amputation given his comorbid arterial disease and DFU. Oxycodone 5 mg #45 were prescribed for treatment of pain with debridements on 09/11/2019. OARRS was appropriate. No signs of diversion or abuse. Encouraged to call with any increase in pain or drainage, fever or chills. He will benefit from application of an advanced wound healing product such as Primatrix Ag or Epicord to help heal his ulcer and prevent limb loss in conjunction with hyperbaric oxygen treatment as well as wound vac treatment to heal his ulcer and manage the moderate to heavy drainage that is coming from ulcer. F/U in 1 week.
[2019-09-25 16:54] VITALS: BP 140/84; BP 149/82; PULSE 79; RESP 18; TEMP 36.7; TEMP 36.8
[2019-09-25 18:14] LABS: M R Staph aureus DNA By PCR Negative (Negative); Probe Check PASS; Staph aureus DNA By PCR NEGATIVE (Negative)
[2019-09-28 11:40] LABS: Bedside Glucose 242 mg/dL (70-110)
[2019-09-28 12:41] LABS: Bedside Glucose 172 mg/dL (70-110)
[2019-09-28 13:54] VITALS: BP 105/62; BP 106/62; PULSE 81; PULSE 84; RESP 18; TEMP 35.8; TEMP 36.6
--- NOTE | 2019-09-28 14:09 | HBO.PN.PCM_ITS ---
History of Present Illness Date of Service: 09/28/19 Presenting Chief Complaint: Nonhealing ulcer right heel, Valdez Grade 3 diabetic ulcer TRAM RIVERA is a 69 year old currently undergoing hyperbaric oxygen therapy for Valdez grade 3 diabetic foot ulcer of his right heel. Progress: Today represents a 34th treatment of hyperbaric oxygen therapy. He is scheduled for 40 treatments. Tolerance of hyperbaric oxygen therapy: Hyperbaric oxygen treatment was provided as per the facility's protocol at 2.0 ANA in 100% oxygen for 90 minutes without air breaks. The patient tolerated hyperbaric oxygen well, without complications or complaints. Upon emergence of the hyperbaric chamber, the patient's vital sig ns remained stable. He was discharged in good condition. This also a 30 day re-evaluation for his hyperbaric oxygen treatment therapy. He is tolerating treatment well and has had mild improvement in his ulcer and significant improvement in pain from the ulcer but it has been complicated by infection. I recommend extending his treatment for 10-20 more hyper baric oxygen treatments to be able to heal his ulcer and prevent limb loss. 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) Diabetes with ulcer of toe (Chronic) PAD (peripheral artery disease) (Chronic) Cellulitis and abscess of foot (Chronic) Type 2 diabetes, controlled, with ulcer of heel (Chronic) Non-healing open wound of heel (Chronic) Hyperlipidemia (Chronic) Peripheral vascular disease (Chronic) Hypertension (Chronic) Coronary artery disease (Chronic) Status post CABG Type II diabetes mellitus (Chronic) Valdez grade 3 Allergies/Adverse Reactions: Allergies rivaroxaban [From Xarelto] Allergy (Verified 02/13/19 16:41) Other Home Medications: Ambulatory Orders Medication Instructions Recorded #17 3 tab PO DAILY 06/13/18 Aspirin [Lite Coat Aspirin] 325 mg PO DAILY 06/13/18 [id number] 1 PO DAILY 06/13/18 Calcium Lactate 1 PO DAILY 06/13/18 Cat C 2 PO DAILY 06/13/18 Cat E2 8 PO DAILY 06/13/18 Cholecalciferol (Vitamin D3) 5,000 mg PO DAILY 06/13/18 [Vitamin D3] Colon Clear 1 tab PO PRN PRN 06/13/18 Inositol 2 PO PRN PRN 06/13/18 Intestinal Cleanse No 1 3 tab PO PRN PRN 06/13/18 Koncentrated K 1 tab PO DAILY 06/13/18 Mag Lactate 1 PO DAILY 06/13/18 Nattokinase 2 tab PO DAILY 06/13/18 Potassium-Derick 1 PO DAILY 06/13/18 Tuna 03 Oil 3 PO DAILY 06/13/18 Zn-Zyme 1 PO DAILY 06/13/18 Clopidogrel Bisulfate [Clopidogrel] 75 mg PO DAILY 09/08/18 traMADol [Ultram] 50 tablet PO PRN PRN 09/08/18 Aurum Metallicum 2 drp PO DAILY 02/13/19 Cbd Oil DAILY 02/13/19 Sibling Family History: Cancer Maternal Family History: Diabetes, Heart Disease, Hypertension, Stroke Paternal Family History: Diabetes, Heart Disease, Pulmonary Disease Lives: Spouse/ Significant Other Smoking Status: Never smoker Tobacco Use: Non-smoker Alcohol: None Drugs: None Physical Exam Vital Signs Temp Pulse Resp BP 96.5 F L 84 18 105/62 09/28/19 13:54 09/28/19 13:54 09/28/19 13:54 09/28/19 13:54 General: Alert, Oriented x3, Cooperative HEENT: Atraumatic, TM's Clear Lungs: Clear to auscultation, Normal air movement Cardiovascular: Regular rate, Regular Rhythm Psych/Mental Status: Normal Affect, Appropriate Assessment/Plan Active Problems PAD (peripheral artery disease) (Chronic) Cellulitis and abscess of foot (Chronic) Type 2 diabetes, controlled, with ulcer of heel (Chronic) Peripheral vascular disease (Chronic) Type II diabetes mellitus (Chronic) Valdez grade 3 Patient tolerated hyperbaric oxygen well which will be continued as per the Patient's medical plan. It is my recommendation that his hyperbaric oxygen treatments be extended to 20 more treatments to be able to heal his ulcer. I feel that it is medically necessary to do this in order to prevent loss of his limb. [id number]
[2019-09-29 10:45] LABS: Bedside Glucose 205 mg/dL (70-110)
[2019-09-29 11:11] VITALS: BP 116/57; BP 124/62; PULSE 69; PULSE 70; RESP 16; TEMP 36.2; TEMP 36.3
[2019-09-29 12:40] LABS: Bedside Glucose 128 mg/dL (70-110)
--- NOTE | 2019-09-29 13:07 | HBO.PN.PCM_ITS ---
History of Present Illness Date of Service: 09/29/19 Presenting Chief Complaint: Nonhealing ulcer right heel, Valdez Grade 3 diabetic ulcer TRAM RIVERA is a 69 year old currently undergoing hyperbaric oxygen therapy for Valdez Grade 3 diabetic foot ulcer of his right heel. Progress: Today represents a 35th treatment of hyperbaric oxygen therapy. He is scheduled for 40 treatments. Tolerance of hyperbaric oxygen therapy: Hyperbaric oxygen treatment was provided as per the facility's protocol at 2.0 ANA in 100% oxygen for 90 minutes without air breaks. The patient tolerated hyperbaric oxygen well, without complications or complaints. Upon emergence of the hyperbaric chamber, the patient's vital sig ns remained stable. He was discharged in good condition. This also a 30 day re-evaluation for his hyperbaric oxygen treatment therapy. He is tolerating treatment well and has had mild improvement in his ulcer and significant improvement in pain. 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) Diabetes with ulcer of toe (Chronic) PAD (peripheral artery disease) (Chronic) Cellulitis and abscess of foot (Chronic) Type 2 diabetes, controlled, with ulcer of heel (Chronic) Non-healing open wound of heel (Chronic) Hyperlipidemia (Chronic) Peripheral vascular disease (Chronic) Hypertension (Chronic) Coronary artery disease (Chronic) Status post CABG Type II diabetes mellitus (Chronic) Valdez grade 3 Allergies/Adverse Reactions: Allergies rivaroxaban [From Xarelto] Allergy (Verified 02/13/19 16:41) Other Home Medications: Ambulatory Orders Medication Instructions Recorded #17 3 tab PO DAILY 06/13/18 Aspirin [Lite Coat Aspirin] 325 mg PO DAILY 06/13/18 [id number] 1 PO DAILY 06/13/18 Calcium Lactate 1 PO DAILY 06/13/18 Cat C 2 PO DAILY 06/13/18 Cat E2 8 PO DAILY 06/13/18 Cholecalciferol (Vitamin D3) 5,000 mg PO DAILY 06/13/18 [Vitamin D3] Colon Clear 1 tab PO PRN PRN 06/13/18 Inositol 2 PO PRN PRN 06/13/18 Intestinal Cleanse No 1 3 tab PO PRN PRN 06/13/18 Koncentrated K 1 tab PO DAILY 06/13/18 Mag Lactate 1 PO DAILY 06/13/18 Nattokinase 2 tab PO DAILY 06/13/18 Potassium-Derick 1 PO DAILY 06/13/18 Tuna 03 Oil 3 PO DAILY 06/13/18 Zn-Zyme 1 PO DAILY 06/13/18 Clopidogrel Bisulfate [Clopidogrel] 75 mg PO DAILY 09/08/18 traMADol [Ultram] 50 tablet PO PRN PRN 09/08/18 Aurum Metallicum 2 drp PO DAILY 02/13/19 Cbd Oil DAILY 02/13/19 Sibling Family History: Cancer Maternal Family History: Diabetes, Heart Disease, Hypertension, Stroke Paternal Family History: Diabetes, Heart Disease, Pulmonary Disease Lives: Spouse/ Significant Other Smoking Status: Never smoker Tobacco Use: Non-smoker Alcohol: None Drugs: None Physical Exam Vital Signs Temp Pulse Resp BP 97.3 F L 69 16 116/57 L 09/29/19 11:11 09/29/19 11:11 09/29/19 11:11 09/29/19 11:11 General: Alert, Oriented x3, Cooperative, No apparent distress, Well developed, Well nourished HEENT: Atraumatic, PERRLA, EOMI, Normocephalic Lungs: Normal air movement Psych/Mental Status: Normal Affect, Appropriate, Alert and oriented to time, place, person, mood and affect Assessment/Plan Active Problems PAD (peripheral artery disease) (Chronic) Cellulitis and abscess of foot (Chronic) Type 2 diabetes, controlled, with ulcer of heel (Chronic) Peripheral vascular disease (Chronic) Type II diabetes mellitus (Chronic) Valdez grade 3 The patient appears to be tolerating hyperbaric oxygen therapy well, which will be continued as per the patient's medical treatment plan.
[2019-09-30 11:36] LABS: Bedside Glucose 214 mg/dL (70-110)
[2019-09-30 12:30] LABS: Bedside Glucose 156 mg/dL (70-110)
--- NOTE | 2019-09-30 12:30 | HBO.PN.PCM_ITS ---
History of Present Illness Date of Service: 09/30/19 Presenting Chief Complaint: Nonhealing ulcer right heel, Valdez Grade 3 diabetic ulcer TRAM RIVERA is a 69 year old currently undergoing hyperbaric oxygen therapy for Valdez Grade 3 diabetic foot ulcer of his right heel. Progress: Today represents a 36th treatment of hyperbaric oxygen therapy. He is scheduled for 40 treatments. Tolerance of hyperbaric oxygen therapy: Hyperbaric oxygen treatment was provided as per the facility's protocol at 2.0 ANA in 100% oxygen for 90 minutes without air breaks. The patient tolerated hyperbaric oxygen well, without complications or complaints. Upon emergence of the hyperbaric chamber, the patient's vital sig ns remained stable. He was discharged in good condition. This also a 30 day re-evaluation for his hyperbaric oxygen treatment therapy. He is tolerating treatment well and has had mild improvement in his ulcer and significant improvement in pain. 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) Diabetes with ulcer of toe (Chronic) PAD (peripheral artery disease) (Chronic) Cellulitis and abscess of foot (Chronic) Type 2 diabetes, controlled, with ulcer of heel (Chronic) Non-healing open wound of heel (Chronic) Hyperlipidemia (Chronic) Peripheral vascular disease (Chronic) Hypertension (Chronic) Coronary artery disease (Chronic) Status post CABG Type II diabetes mellitus (Chronic) Valdez grade 3 Allergies/Adverse Reactions: Allergies rivaroxaban [From Xarelto] Allergy (Verified 02/13/19 16:41) Other Home Medications: Ambulatory Orders Medication Instructions Recorded #17 3 tab PO DAILY 06/13/18 Aspirin [Lite Coat Aspirin] 325 mg PO DAILY 06/13/18 [id number] 1 PO DAILY 06/13/18 Calcium Lactate 1 PO DAILY 06/13/18 Cat C 2 PO DAILY 06/13/18 Cat E2 8 PO DAILY 06/13/18 Cholecalciferol (Vitamin D3) 5,000 mg PO DAILY 06/13/18 [Vitamin D3] Colon Clear 1 tab PO PRN PRN 06/13/18 Inositol 2 PO PRN PRN 06/13/18 Intestinal Cleanse No 1 3 tab PO PRN PRN 06/13/18 Koncentrated K 1 tab PO DAILY 06/13/18 Mag Lactate 1 PO DAILY 06/13/18 Nattokinase 2 tab PO DAILY 06/13/18 Potassium-Derick 1 PO DAILY 06/13/18 Tuna 03 Oil 3 PO DAILY 06/13/18 Zn-Zyme 1 PO DAILY 06/13/18 Clopidogrel Bisulfate [Clopidogrel] 75 mg PO DAILY 09/08/18 traMADol [Ultram] 50 tablet PO PRN PRN 09/08/18 Aurum Metallicum 2 drp PO DAILY 02/13/19 Cbd Oil DAILY 02/13/19 Sibling Family History: Cancer Maternal Family History: Diabetes, Heart Disease, Hypertension, Stroke Paternal Family History: Diabetes, Heart Disease, Pulmonary Disease Lives: Spouse/ Significant Other Smoking Status: Never smoker Tobacco Use: Non-smoker Alcohol: None Drugs: None Physical Exam Vital Signs Temp Pulse Resp BP 97.3 F L 69 16 116/57 L 09/29/19 11:11 09/29/19 11:11 09/29/19 11:11 09/29/19 11:11 Assessment/Plan Active Problems PAD (peripheral artery disease) (Chronic) Cellulitis and abscess of foot (Chronic) Type 2 diabetes, controlled, with ulcer of heel (Chronic) Peripheral vascular disease (Chronic) Type II diabetes mellitus (Chronic) Valdez grade 3 The patient appears to be tolerating hyperbaric oxygen therapy well, which will be continued as per the patient's medical treatment plan.
[2019-09-30 15:03] VITALS: BP 120/69; BP 128/82; PULSE 69; PULSE 71; RESP 18; TEMP 36.4; TEMP 36.6
[2019-10-01 10:56] LABS: Bedside Glucose 238 mg/dL (70-110)
--- NOTE | 2019-10-01 12:36 | HBO.PN.PCM_ITS ---
History of Present Illness Date of Service: 10/01/19 Presenting Chief Complaint: Nonhealing ulcer right heel, Valdez Grade 3 diabetic ulcer TRAM RIVERA is a 69 year old currently undergoing hyperbaric oxygen therapy for Valdez Grade 3 diabetic foot ulcer of his right heel. Progress: Today represents a 37th treatment of hyperbaric oxygen therapy. He is scheduled for 40 treatments. Tolerance of hyperbaric oxygen therapy: Hyperbaric oxygen treatment was provided as per the facility's protocol at 2.0 ANA in 100% oxygen for 90 minutes without air breaks. The patient tolerated hyperbaric oxygen well, without complications or complaints. Upon emergence of the hyperbaric chamber, the patient's vital sig ns remained stable. He was discharged in good condition. 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) Diabetes with ulcer of toe (Chronic) PAD (peripheral artery disease) (Chronic) Cellulitis and abscess of foot (Chronic) Type 2 diabetes, controlled, with ulcer of heel (Chronic) Non-healing open wound of heel (Chronic) Hyperlipidemia (Chronic) Peripheral vascular disease (Chronic) Hypertension (Chronic) Coronary artery disease (Chronic) Status post CABG Type II diabetes mellitus (Chronic) Valdez grade 3 Allergies/Adverse Reactions: Allergies rivaroxaban [From Xarelto] Allergy (Verified 02/13/19 16:41) Other Home Medications: Ambulatory Orders Medication Instructions Recorded #17 3 tab PO DAILY 06/13/18 Aspirin [Lite Coat Aspirin] 325 mg PO DAILY 06/13/18 [id number] 1 PO DAILY 06/13/18 Calcium Lactate 1 PO DAILY 06/13/18 Cat C 2 PO DAILY 06/13/18 Cat E2 8 PO DAILY 06/13/18 Cholecalciferol (Vitamin D3) 5,000 mg PO DAILY 06/13/18 [Vitamin D3] Colon Clear 1 tab PO PRN PRN 06/13/18 Inositol 2 PO PRN PRN 06/13/18 Intestinal Cleanse No 1 3 tab PO PRN PRN 06/13/18 Koncentrated K 1 tab PO DAILY 06/13/18 Mag Lactate 1 PO DAILY 06/13/18 Nattokinase 2 tab PO DAILY 06/13/18 Potassium-Derick 1 PO DAILY 06/13/18 Tuna 03 Oil 3 PO DAILY 06/13/18 Zn-Zyme 1 PO DAILY 06/13/18 Clopidogrel Bisulfate [Clopidogrel] 75 mg PO DAILY 09/08/18 traMADol [Ultram] 50 tablet PO PRN PRN 09/08/18 Aurum Metallicum 2 drp PO DAILY 02/13/19 Cbd Oil DAILY 02/13/19 Sibling Family History: Cancer Maternal Family History: Diabetes, Heart Disease, Hypertension, Stroke Paternal Family History: Diabetes, Heart Disease, Pulmonary Disease Lives: Spouse/ Significant Other Smoking Status: Never smoker Tobacco Use: Non-smoker Alcohol: None Drugs: None Physical Exam Vital Signs Temp Pulse Resp BP 97.6 F L 69 18 120/69 09/30/19 15:03 09/30/19 15:03 09/30/19 15:03 09/30/19 15:03 General: Alert, Oriented x3, Cooperative, No apparent distress HEENT: Atraumatic, Normocephalic Lungs: Normal air movement Psych/Mental Status: Normal Affect Assessment/Plan Active Problems PAD (peripheral artery disease) (Chronic) Cellulitis and abscess of foot (Chronic) Type 2 diabetes, controlled, with ulcer of heel (Chronic) Peripheral vascular disease (Chronic) Type II diabetes mellitus (Chronic) Valdez grade 3 The patient appears to be tolerating hyperbaric oxygen therapy well, which will be continued as per the patient's medical treatment plan. HBO supervision
[2019-10-01 13:11] LABS: Bedside Glucose 172 mg/dL (70-110)
[2019-10-02 10:56] LABS: Bedside Glucose 215 mg/dL (70-110)
[2019-10-02 13:22] VITALS: BP 160/86; PULSE 74; RESP 18; TEMP 36.8; BMI 24.9
[2019-10-02 13:51] LABS: Bedside Glucose 184 mg/dL (70-110)
[2019-10-02 14:39] VITALS: BP 124/63; BP 160/86; PULSE 74; PULSE 81; RESP 18; TEMP 36.6; TEMP 36.7
--- NOTE | 2019-10-02 16:19 | PN.PCM_ITS ---
(1) PAD (peripheral artery disease) Status: Chronic Current Visit: Yes Code(s): I73.9 - Peripheral vascular disease, unspecified (2) Cellulitis and abscess of foot Status: Chronic Current Visit: Yes Code(s): L03.119 - Cellulitis of unspecified part of limb; L02.619 - Cutaneous abscess of unspecified foot (3) Type 2 diabetes, controlled, with ulcer of heel Status: Chronic Current Visit: Yes Code(s): E11.621 - Type 2 diabetes mellitus with foot ulcer; L97.409 - Non-pressure chronic ulcer of unspecified heel and midfoot with unspecified severity (4) Peripheral vascular disease Status: Chronic Current Visit: Yes Code(s): I73.9 - Peripheral vascular disease, unspecified (5) Type II diabetes mellitus Status: Chronic Current Visit: Yes Qualifiers: Diabetes mellitus ocean transportation intermediary insulin use: unspecified ocean transportation intermediary insulin use status Diabetes mellitus complication status: with skin complications Diabetes mellitus complication detail: with foot ulcer Qualified Code(s): E11.621 - Type 2 diabetes mellitus with foot ulcer; L97.509 - Non-pressure chronic ulcer of other part of unspecified foot with unspecified severity Code(s): E11.9 - Type 2 diabetes mellitus without complications Comment: Valdez grade 3 Type of Wound Date of Service: 10/02/19 Chief Complaint: Nonhealing ulcer right heel, Valdez Grade 3 diabetic ulcer History of Wound: Gibson is here for evaluation of an ulcer of his right heel. He was recently treated for this same area with Theraskin application and was discharged approximately 8 weeks ago. He has noticed increased pain in his heel for the last 2 weeks and last his noted that the area had opened after his die cutter had debrided some callus from the area. He has been applying Aquacel and gauze to the ulcer. He does follow with Dr. Navas regularly and had a bypass of his right SFA and popliteal arteries earlier this year. He has had procedures for his arterial disease in past to both of his lower extremities. He has tried alternative treatments with supplements and chelation therapy in the past. He also has diabetes and recent A1C was 7.2% He does wear diabetic shoes. He had been undergoing chelation treatments by Dr. German in [place]. He denies fever, chills, erythema or heavy drainage. He reports significant pain and discomfort of his right heel and his entire right leg which no one can explain. In March 2019, he was hospitalized due to occlusion of his bypass graft in his right leg and Dr. Navas was able to open it 50%. He also has blockages in his left leg. Dr. Navas is unable to revascularize either leg at this time and he may ultimately require limb amputation if his vascular disease worsens. Progress of Wound: Gibson is here to follow up for nonhealing ulcer of his right heel. He reports increased pain in his right heel this week. His wound culture was positive for Enterobacter again and was negative for anaerobic bacteria. He was started on Ciprofloxacin and clindamycin to treat his culture results. He is tolerating COTY wound vac. He is improving with the combination of hyperbaric oxygen treatments and COTY wound vac. There is a moderate to heavy amount of drainage but there has been no leakage through his dressings. Denies fever, chills, erythema. - Physical Exam Vital Signs Temp Pulse Resp BP 97.8 F 81 18 124/63 H 10/02/19 14:39 10/02/19 14:39 10/02/19 14:39 10/02/19 14:39 General: Alert, Oriented x3, Cooperative, No apparent distress HEENT: Atraumatic, Normocephalic Oral: Moist Mucosa Extremities: Capillary Refill Less than 3 Seconds, Cool, Diminished Peripheral Pulses Skin: Ulcer/ Wound Wound Measurements and Assessment WC - Nurse 1 - General Ulcer Measurement Start: 09/16/19 10:44 Freq: Status: Active Protocol: Activity Type Activity Date Activity User E-Sign Co-Sign Detail Recorded Client Recorded Date Recorded By Document 10/02/19 13:22 PL [id number] 10/02/19 13:35 PL 10/02/19 13:22 Wound Center Nurse 1 [Ulcer Assessment] #14- R HEEL -Combined with other wound No -Current Size (cm) - Length 1.0 -Current Size (cm) - Width 0.7 -Current Size (cm) - Depth 0.4 -Total Square Cm 0.70 -Photo Taken No -Epithelialization None Present -Tunneling No -Undermining/Tunneling No -Circular Undermining No -Granulation Amt Small (1-33%) -Granulation Quality Gilman -Slough/Fibrin Yes -Necrosis Amt Large (67-100%) -Necrotic Tissue Type Adherent Slough -Moisture (Shahana-wound Skin Appearance Maceration ) -Temperature (Shahana-wound Skin No Abnormality Appearance) (Pt Warm) -Tenderness on Palpation (Shahana-wound No Skin Appearance) -Ulcer Cleansing Rinsed/ Irrigated with Saline -Foul Odor after Cleansing No -Anesthetic Used 5% Lidocaine Gel WC - Nurse 2 - General Ulcer CM Notes Start: 09/16/19 10:44 Freq: Status: Active Protocol: Activity Type Activity Date Activity User E-Sign Co-Sign Detail Recorded Client Recorded Date Recorded By Document 10/02/19 13:57 DV [id number] 10/02/19 14:04 DV 10/02/19 13:57 Wound Center Nurse 2 [Procedure/Treatment] -Time 13:58 -Correct Patient Yes -Correct Side, Site, Position Yes -Correct Procedure Yes -Procedure Performed Yes -Type of Procedure Debridement -Clinical Debridement Subcutaneous -Post Debridement Size (cm) - Length 0.7 -Post Debridement Size (cm) - Width 0.7 -Post Debridement Size (cm) - Depth 0.5 -Total Square Cm 0.49 -Wound/Ulcer Outcome Not Healed -Ulcer Cleansing Rinsed/ Irrigated with Saline -Foul Odor after Cleansing No -Bioengineered Tissue No -Bleeding Controlled with Pressure -Offloading No -Type of Offloading Surgical Shoe -Treatment Response Procedure Tolerated Well [See Physician Procedure note for Specifics] Pain Scale: 0-10 Numeric [Pain] -Is Patient Pain Free? Yes Psych/Mental Status: Normal Affect, Appropriate Debridement Note Post-Debridement Measurements/Treatment WC - Nurse 2 - General Ulcer CM Notes Start: 09/16/19 10:44 Freq: Status: Active Protocol: Activity Type Activity Date Activity User E-Sign Co-Sign Detail Recorded Client Recorded Date Recorded By Document 09/18/19 13:33 DV [id number] 09/18/19 13:40 DV Document 10/02/19 13:57 DV [id number] 10/02/19 14:04 DV 09/18/19 10/02/19 13:33 13:57 Wound Center Nurse 2 #16 Left Lateral Whitney -Time 13:34 -Bleeding Controlled with Pressure #14- R HEEL -Time 13:36 13:58 -Correct Patient Yes Yes -Correct Side, Site, Position Yes Yes -Correct Procedure Yes Yes -Procedure Performed Yes Yes -Type of Procedure Debridement Debridement -Clinical Debridement Subcutaneous Subcutaneous -Post Debridement Size (cm) - Length 1.0 0.7 -Post Debridement Size (cm) - Width 0.8 0.7 -Post Debridement Size (cm) - Depth 0.7 0.5 -Total Square Cm 0.80 0.49 -Wound/Ulcer Outcome Not Healed Not Healed -Ulcer Cleansing Rinsed/ Rinsed/ Irrigated with Irrigated with Saline Saline -Foul Odor after Cleansing No No -Bioengineered Tissue No No -Bleeding Controlled with Pressure Pressure -Offloading No -Type of Offloading Surgical Shoe Surgical Shoe -Treatment Response Procedure Procedure Tolerated Well Tolerated Well Pain Scale: 0-10 Numeric Is Patient Pain Free? Yes Yes Wound debrided: right heel Laterality: Right Wound Grade/Stage: Grade 3 Type of Debridement: Excisional debridement Anesthesia Used: 4% Lidocaine Solution, 5% Lidocaine Gel, Cetacaine - 5 ml lidocaine 2% Depth: Down to and including healthy tissue, in the subcutaneous layer, to muscle Percentage of wound debrided: 100 Instrument Used: 5mm curette, #15 blade, Forceps Tissue Removed: yellow slough, devitalized tissue Severity: Fat Layer Exposed Amount of bleeding with debridement: Mild Bleeding Controlled with: Compression and gauze Patient tolerated procedure well Assessment/Plan Active Problems PAD (peripheral artery disease) (Chronic) Cellulitis and abscess of foot (Chronic) Type 2 diabetes, controlled, with ulcer of heel (Chronic) Peripheral vascular disease (Chronic) Type II diabetes mellitus (Chronic) Valdez grade 3 Assessment: 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 Diabetes mellitus - controlled. Peripheral vascular disease - status post revascularization 08/07/18 and 03/2019 Plan: Demetriuss ulcer was evaluated and debrided today with slight improvement in his ulcer compared to last week but increase in maceration. He is tolerating HBO treatment and without this treatment I do not feel he would achieve progress in healing his ulcer. He has had 38 HBO treatments. It is medically necessary that he continue with hyperbaric oxygen treatments and I am recommending extending his treatments for 20 additional treatments for a total of 60 treatments. Ulcer will be dressed using Verenice to the ulcer bed and then COTY wound vac was placed over his heel ulcer. He will benefit from COTY wound vac to be able to leave the vac and tubing in place while he undergoes HBO treatment to resume negative pressure in between treatments. He will continue to use the surgical shoe for offloading. He would continue to benefit from hyperbaric oxygen treatment to help heal his wound and salvage his limb from amputation given his comorbid arterial disease and DFU. Oxycodone 5 mg #45 were prescribed for treatment of pain with debridements on 09/11/2019. OARRS was appropriate. No signs of diversion or abuse. Encouraged to call with any increase in pain or drainage, fever or chills. He will benefit from application of an advanced wound healing product such as Primatrix Ag or Epicord to help heal his ulcer and prevent limb loss in conjunction with hyperbaric oxygen treatment as well as wound vac treatment to heal his ulcer and manage the moderate to heavy drainage that is coming from ulcer. F/U in 1 week.
--- NOTE | 2019-10-02 16:27 | HBO.PN.PCM_ITS ---
History of Present Illness Date of Service: 10/02/19 Presenting Chief Complaint: Nonhealing ulcer right heel, Valdez Grade 3 diabetic ulcer TRAM RIVERA is a 69 year old currently undergoing hyperbaric oxygen therapy for Valdez Grade 3 diabetic foot ulcer of his right heel. Progress: Today represents a 38th treatment of hyperbaric oxygen therapy. He is scheduled for 60 treatments. Tolerance of hyperbaric oxygen therapy: Hyperbaric oxygen treatment was provided as per the facility's protocol at 2.0 ANA in 100% oxygen for 90 minutes without air breaks. The patient tolerated hyperbaric oxygen well, without complications or complaints. Upon emergence of the hyperbaric chamber, the patient's vital sig ns remained stable. He was discharged in good condition. 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) Diabetes with ulcer of toe (Chronic) PAD (peripheral artery disease) (Chronic) Cellulitis and abscess of foot (Chronic) Type 2 diabetes, controlled, with ulcer of heel (Chronic) Non-healing open wound of heel (Chronic) Hyperlipidemia (Chronic) Peripheral vascular disease (Chronic) Hypertension (Chronic) Coronary artery disease (Chronic) Status post CABG Type II diabetes mellitus (Chronic) Valdez grade 3 Allergies/Adverse Reactions: Allergies rivaroxaban [From Xarelto] Allergy (Verified 02/13/19 16:41) Other Home Medications: Ambulatory Orders Medication Instructions Recorded #17 3 tab PO DAILY 06/13/18 Aspirin [Lite Coat Aspirin] 325 mg PO DAILY 06/13/18 [id number] 1 PO DAILY 06/13/18 Calcium Lactate 1 PO DAILY 06/13/18 Cat C 2 PO DAILY 06/13/18 Cat E2 8 PO DAILY 06/13/18 Cholecalciferol (Vitamin D3) 5,000 mg PO DAILY 06/13/18 [Vitamin D3] Colon Clear 1 tab PO PRN PRN 06/13/18 Inositol 2 PO PRN PRN 06/13/18 Intestinal Cleanse No 1 3 tab PO PRN PRN 06/13/18 Koncentrated K 1 tab PO DAILY 06/13/18 Mag Lactate 1 PO DAILY 06/13/18 Nattokinase 2 tab PO DAILY 06/13/18 Potassium-Derick 1 PO DAILY 06/13/18 Tuna 03 Oil 3 PO DAILY 06/13/18 Zn-Zyme 1 PO DAILY 06/13/18 Clopidogrel Bisulfate [Clopidogrel] 75 mg PO DAILY 09/08/18 traMADol [Ultram] 50 tablet PO PRN PRN 09/08/18 Aurum Metallicum 2 drp PO DAILY 02/13/19 Cbd Oil DAILY 02/13/19 Sibling Family History: Cancer Maternal Family History: Diabetes, Heart Disease, Hypertension, Stroke Paternal Family History: Diabetes, Heart Disease, Pulmonary Disease Lives: Spouse/ Significant Other Smoking Status: Never smoker Tobacco Use: Non-smoker Alcohol: None Drugs: None Physical Exam Vital Signs Temp Pulse Resp BP 97.8 F 81 18 124/63 H 10/02/19 14:39 10/02/19 14:39 10/02/19 14:39 10/02/19 14:39 General: Alert, Oriented x3, Cooperative, No apparent distress Psych/Mental Status: Normal Affect, Appropriate Assessment/Plan Active Problems PAD (peripheral artery disease) (Chronic) Cellulitis and abscess of foot (Chronic) Type 2 diabetes, controlled, with ulcer of heel (Chronic) Peripheral vascular disease (Chronic) Type II diabetes mellitus (Chronic) Valdez grade 3 The patient appears to be tolerating hyperbaric oxygen therapy well, which will be continued as per the patient's medical treatment plan.
[2019-10-05 10:46] LABS: Bedside Glucose 210 mg/dL (70-110)
[2019-10-05 13:01] LABS: Bedside Glucose 193 mg/dL (70-110)
[2019-10-05 15:22] VITALS: BP 146/83; BP 152/74; PULSE 72; PULSE 74; RESP 18; TEMP 36.4; TEMP 36.9
--- NOTE | 2019-10-05 22:07 | HBO.PN.PCM_ITS ---
History of Present Illness Date of Service: 10/05/19 Presenting Chief Complaint: Nonhealing ulcer right heel, Valdez Grade 3 diabetic ulcer. TRAM RIVERA is a 69 year old currently undergoing hyperbaric oxygen therapy for Valdez Grade 3 diabetic foot ulcer of his right heel. Progress: Today represents a 39th treatment of hyperbaric oxygen therapy. He is scheduled for 60 treatments. Tolerance of hyperbaric oxygen therapy: Hyperbaric oxygen treatment was provided as per the facility's protocol at 2.0 ANA in 100% oxygen for 90 minutes without air breaks. The patient tolerated hyperbaric oxygen well, without complications or complaints. Upon emergence of the hyperbaric chamber, the patient's vital si gns remained stable. Blood glucose pre-treatment was 210. Blood glucose post- treatment was 193. He was discharged in good condition. 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) Diabetes with ulcer of toe (Chronic) PAD (peripheral artery disease) (Chronic) Cellulitis and abscess of foot (Chronic) Type 2 diabetes, controlled, with ulcer of heel (Chronic) Non-healing open wound of heel (Chronic) Hyperlipidemia (Chronic) Peripheral vascular disease (Chronic) Hypertension (Chronic) Coronary artery disease (Chronic) Status post CABG Type II diabetes mellitus (Chronic) Valdez grade 3 Allergies/Adverse Reactions: Allergies rivaroxaban [From Xarelto] Allergy (Verified 02/13/19 16:41) Other Home Medications: Ambulatory Orders Medication Instructions Recorded #17 3 tab PO DAILY 06/13/18 Aspirin [Lite Coat Aspirin] 325 mg PO DAILY 06/13/18 [id number] 1 PO DAILY 06/13/18 Calcium Lactate 1 PO DAILY 06/13/18 Cat C 2 PO DAILY 06/13/18 Cat E2 8 PO DAILY 06/13/18 Cholecalciferol (Vitamin D3) 5,000 mg PO DAILY 06/13/18 [Vitamin D3] Colon Clear 1 tab PO PRN PRN 06/13/18 Inositol 2 PO PRN PRN 06/13/18 Intestinal Cleanse No 1 3 tab PO PRN PRN 06/13/18 Koncentrated K 1 tab PO DAILY 06/13/18 Mag Lactate 1 PO DAILY 06/13/18 Nattokinase 2 tab PO DAILY 06/13/18 Potassium-Derick 1 PO DAILY 06/13/18 Tuna 03 Oil 3 PO DAILY 06/13/18 Zn-Zyme 1 PO DAILY 06/13/18 Clopidogrel Bisulfate [Clopidogrel] 75 mg PO DAILY 09/08/18 traMADol [Ultram] 50 tablet PO PRN PRN 09/08/18 Aurum Metallicum 2 drp PO DAILY 02/13/19 Cbd Oil DAILY 02/13/19 Sibling Family History: Cancer Maternal Family History: Diabetes, Heart Disease, Hypertension, Stroke Paternal Family History: Diabetes, Heart Disease, Pulmonary Disease Lives: Spouse/ Significant Other Smoking Status: Never smoker Tobacco Use: Non-smoker Alcohol: None Drugs: None Physical Exam Vital Signs Temp Pulse Resp BP 97.6 F L 72 18 152/74 H 10/05/19 15:22 10/05/19 15:22 10/05/19 15:22 10/05/19 15:22 Assessment/Plan Active Problems PAD (peripheral artery disease) (Chronic) Cellulitis and abscess of foot (Chronic) Type 2 diabetes, controlled, with ulcer of heel (Chronic) Peripheral vascular disease (Chronic) Type II diabetes mellitus (Chronic) Valdez grade 3 HBO Charges CPT - 68856 ICD-10 - E11.621, E11.9
[2019-10-06 11:05] LABS: Bedside Glucose 296 mg/dL (70-110)
[2019-10-06 11:18] VITALS: BP 142/86; BP 145/74; PULSE 73; PULSE 74; RESP 16; RESP 18; TEMP 36.1; TEMP 36.9
[2019-10-06 12:50] LABS: Bedside Glucose 213 mg/dL (70-110)
--- NOTE | 2019-10-06 13:17 | HBO.PN.PCM_ITS ---
History of Present Illness Date of Service: 10/06/19 Presenting Chief Complaint: Nonhealing ulcer right heel, Valdez Grade 3 diabetic ulcer. TRAM RIVERA is a 69 year old currently undergoing hyperbaric oxygen therapy for Valdez Grade 3 diabetic foot ulcer of his right heel. Progress: Today represents a 40th treatment of hyperbaric oxygen therapy. He is scheduled for 60 treatments. Tolerance of hyperbaric oxygen therapy: Hyperbaric oxygen treatment was provided as per the facility's protocol at 2.0 ANA in 100% oxygen for 90 minutes without air breaks. The patient tolerated hyperbaric oxygen well, without complications or complaints. Upon emergence of the hyperbaric chamber, the patient's vital si gns remained stable. Blood glucose pre-treatment was 296. Blood glucose post- treatment was 213. He was discharged in good condition. 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) Diabetes with ulcer of toe (Chronic) PAD (peripheral artery disease) (Chronic) Cellulitis and abscess of foot (Chronic) Type 2 diabetes, controlled, with ulcer of heel (Chronic) Non-healing open wound of heel (Chronic) Hyperlipidemia (Chronic) Peripheral vascular disease (Chronic) Hypertension (Chronic) Coronary artery disease (Chronic) Status post CABG Type II diabetes mellitus (Chronic) Valdez grade 3 Allergies/Adverse Reactions: Allergies rivaroxaban [From Xarelto] Allergy (Verified 02/13/19 16:41) Other Home Medications: Ambulatory Orders Medication Instructions Recorded #17 3 tab PO DAILY 06/13/18 Aspirin [Lite Coat Aspirin] 325 mg PO DAILY 06/13/18 [id number] 1 PO DAILY 06/13/18 Calcium Lactate 1 PO DAILY 06/13/18 Cat C 2 PO DAILY 06/13/18 Cat E2 8 PO DAILY 06/13/18 Cholecalciferol (Vitamin D3) 5,000 mg PO DAILY 06/13/18 [Vitamin D3] Colon Clear 1 tab PO PRN PRN 06/13/18 Inositol 2 PO PRN PRN 06/13/18 Intestinal Cleanse No 1 3 tab PO PRN PRN 06/13/18 Koncentrated K 1 tab PO DAILY 06/13/18 Mag Lactate 1 PO DAILY 06/13/18 Nattokinase 2 tab PO DAILY 06/13/18 Potassium-Derick 1 PO DAILY 06/13/18 Tuna 03 Oil 3 PO DAILY 06/13/18 Zn-Zyme 1 PO DAILY 06/13/18 Clopidogrel Bisulfate [Clopidogrel] 75 mg PO DAILY 09/08/18 traMADol [Ultram] 50 tablet PO PRN PRN 09/08/18 Aurum Metallicum 2 drp PO DAILY 02/13/19 Cbd Oil DAILY 02/13/19 Sibling Family History: Cancer Maternal Family History: Diabetes, Heart Disease, Hypertension, Stroke Paternal Family History: Diabetes, Heart Disease, Pulmonary Disease Lives: Spouse/ Significant Other Smoking Status: Never smoker Tobacco Use: Non-smoker Alcohol: None Drugs: None Physical Exam Vital Signs Temp Pulse Resp BP 97 F L 74 18 145/74 H 10/06/19 11:18 10/06/19 11:18 10/06/19 11:18 10/06/19 11:18 General: Alert, Oriented x3, Cooperative, No apparent distress, Well developed, Well nourished HEENT: Atraumatic, PERRLA, EOMI, Normocephalic Lungs: Normal air movement Psych/Mental Status: Normal Affect, Appropriate, Alert and oriented to time, place, person, mood and affect Assessment/Plan Active Problems PAD (peripheral artery disease) (Chronic) Cellulitis and abscess of foot (Chronic) Type 2 diabetes, controlled, with ulcer of heel (Chronic) Peripheral vascular disease (Chronic) Type II diabetes mellitus (Chronic) Valdez grade 3 The patient appears to be tolerating hyperbaric oxygen therapy well, which will be continued as per his medical treatment plan.
[2019-10-07 10:51] LABS: Bedside Glucose 341 mg/dL (70-110)
[2019-10-08 10:06] LABS: Bedside Glucose 244 mg/dL (70-110)
[2019-10-08 10:25] LABS: Bedside Glucose 248 mg/dL (70-110)
--- NOTE | 2019-10-08 11:12 | PCM.HBO.PN ---
History of Present Illness Date of Service: 10/08/19 Presenting Chief Complaint: Nonhealing ulcer right heel, Valdez Grade 3 diabetic ulcer. TRAM RIVERA is a 69 year old currently undergoing hyperbaric oxygen therapy for Valdez Grade 3 diabetic foot ulcer of his right heel. Progress: Today is the 41st treatment of hyperbaric oxygen therapy. He is scheduled for 60 treatments. Tolerance of hyperbaric oxygen therapy: Hyperbaric oxygen treatment was provided as per the facility's protocol at 2.0 ANA in 100% oxygen for 90 minutes without air breaks. The patient tolerated hyperbaric oxygen well, without complications or complaints. Upon emergence of the hyperbaric chamber, the patient's vital signs remained stable. Pre-and post blood glucose goals as documented. 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) Diabetes with ulcer of toe (Chronic) PAD (peripheral artery disease) (Chronic) Cellulitis and abscess of foot (Chronic) Type 2 diabetes, controlled, with ulcer of heel (Chronic) Non-healing open wound of heel (Chronic) Hyperlipidemia (Chronic) Peripheral vascular disease (Chronic) Hypertension (Chronic) Coronary artery disease (Chronic) Status post CABG Type II diabetes mellitus (Chronic) Valdez grade 3 Allergies/Adverse Reactions: Allergies rivaroxaban [From Xarelto] Allergy (Verified 02/13/19 16:41) Other Home Medications: Ambulatory Orders Medication Instructions Recorded #17 3 tab PO DAILY 06/13/18 Aspirin [Lite Coat Aspirin] 325 mg PO DAILY 06/13/18 [id number] 1 PO DAILY 06/13/18 Calcium Lactate 1 PO DAILY 06/13/18 Cat C 2 PO DAILY 06/13/18 Cat E2 8 PO DAILY 06/13/18 Cholecalciferol (Vitamin D3) 5,000 mg PO DAILY 06/13/18 [Vitamin D3] Colon Clear 1 tab PO PRN PRN 06/13/18 Inositol 2 PO PRN PRN 06/13/18 Intestinal Cleanse No 1 3 tab PO PRN PRN 06/13/18 Koncentrated K 1 tab PO DAILY 06/13/18 Mag Lactate 1 PO DAILY 06/13/18 Nattokinase 2 tab PO DAILY 06/13/18 Potassium-Derick 1 PO DAILY 06/13/18 Tuna 03 Oil 3 PO DAILY 06/13/18 Zn-Zyme 1 PO DAILY 06/13/18 Clopidogrel Bisulfate [Clopidogrel] 75 mg PO DAILY 09/08/18 traMADol [Ultram] 50 tablet PO PRN PRN 09/08/18 Aurum Metallicum 2 drp PO DAILY 02/13/19 Cbd Oil DAILY 02/13/19 Sibling Family History: Cancer Maternal Family History: Diabetes, Heart Disease, Hypertension, Stroke Paternal Family History: Diabetes, Heart Disease, Pulmonary Disease Lives: Spouse/ Significant Other Smoking Status: Never smoker Tobacco Use: Non-smoker Alcohol: None Drugs: None Physical Exam Vital Signs Temp Pulse Resp BP 97 F L 74 18 145/74 H 10/06/19 11:18 10/06/19 11:18 10/06/19 11:18 10/06/19 11:18 General: Alert, Oriented x3, Cooperative, No apparent distress HEENT: Atraumatic, Normocephalic Lungs: Normal air movement Psych/Mental Status: Normal Affect Assessment/Plan Active Problems PAD (peripheral artery disease) (Chronic) Cellulitis and abscess of foot (Chronic) Type 2 diabetes, controlled, with ulcer of heel (Chronic) Peripheral vascular disease (Chronic) Type II diabetes mellitus (Chronic) Valdez grade 3 The patient appears to be tolerating hyperbaric oxygen therapy well, which will be continued as per his medical treatment plan.
[2019-10-08 12:16] VITALS: BP 139/83; BP 157/64; PULSE 74; PULSE 99; RESP 16; RESP 18; TEMP 35.6; TEMP 36.8
[2019-10-08 12:30] LABS: Bedside Glucose 180 mg/dL (70-110)
[2019-10-09 10:46] LABS: Bedside Glucose 259 mg/dL (70-110)
[2019-10-09 13:21] LABS: Bedside Glucose 147 mg/dL (70-110)
[2019-10-09 13:42] VITALS: BP 137/61; PULSE 78; RESP 18; TEMP 36.7; BMI 24.9
[2019-10-09 16:11] VITALS: BP 123/64; BP 137/61; PULSE 78; PULSE 87; RESP 16; TEMP 36; TEMP 36.7
--- NOTE | 2019-10-09 17:31 | HBO.PN.PCM_ITS ---
History of Present Illness Date of Service: 10/09/19 Presenting Chief Complaint: Nonhealing ulcer right heel, Valdez Grade 3 diabetic ulcer. TRAM RIVERA is a 69 year old currently undergoing hyperbaric oxygen therapy for Valdez Grade 3 diabetic foot ulcer of his right heel. Progress: Today is the 42nd treatment of hyperbaric oxygen therapy. He is scheduled for 60 treatments total. Tolerance of hyperbaric oxygen therapy: Hyperbaric oxygen treatment was provided as per the facility's protocol at 2.0 ANA in 100% oxygen for 90 minutes without air breaks. The patient tolerated hyperbaric oxygen well, without complications or complaints. Upon emergence of the hyperbaric chamber, the patient's vital s igns remained stable. Pre-and post blood glucose levels are as documented. 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) Diabetes with ulcer of toe (Chronic) PAD (peripheral artery disease) (Chronic) Cellulitis and abscess of foot (Chronic) Type 2 diabetes, controlled, with ulcer of heel (Chronic) Non-healing open wound of heel (Chronic) Hyperlipidemia (Chronic) Peripheral vascular disease (Chronic) Hypertension (Chronic) Coronary artery disease (Chronic) Status post CABG Type II diabetes mellitus (Chronic) Valdez grade 3 Allergies/Adverse Reactions: Allergies rivaroxaban [From Xarelto] Allergy (Verified 02/13/19 16:41) Other Home Medications: Ambulatory Orders Medication Instructions Recorded #17 3 tab PO DAILY 06/13/18 Aspirin [Lite Coat Aspirin] 325 mg PO DAILY 06/13/18 [id number] 1 PO DAILY 06/13/18 Calcium Lactate 1 PO DAILY 06/13/18 Cat C 2 PO DAILY 06/13/18 Cat E2 8 PO DAILY 06/13/18 Cholecalciferol (Vitamin D3) 5,000 mg PO DAILY 06/13/18 [Vitamin D3] Colon Clear 1 tab PO PRN PRN 06/13/18 Inositol 2 PO PRN PRN 06/13/18 Intestinal Cleanse No 1 3 tab PO PRN PRN 06/13/18 Koncentrated K 1 tab PO DAILY 06/13/18 Mag Lactate 1 PO DAILY 06/13/18 Nattokinase 2 tab PO DAILY 06/13/18 Potassium-Derick 1 PO DAILY 06/13/18 Tuna 03 Oil 3 PO DAILY 06/13/18 Zn-Zyme 1 PO DAILY 06/13/18 Clopidogrel Bisulfate [Clopidogrel] 75 mg PO DAILY 09/08/18 traMADol [Ultram] 50 tablet PO PRN PRN 09/08/18 Aurum Metallicum 2 drp PO DAILY 02/13/19 Cbd Oil DAILY 02/13/19 Sibling Family History: Cancer Maternal Family History: Diabetes, Heart Disease, Hypertension, Stroke Paternal Family History: Diabetes, Heart Disease, Pulmonary Disease Lives: Spouse/ Significant Other Smoking Status: Never smoker Tobacco Use: Non-smoker Alcohol: None Drugs: None Physical Exam Vital Signs Temp Pulse Resp BP 96.8 F L 87 16 123/64 H 10/09/19 16:11 10/09/19 16:11 10/09/19 16:11 10/09/19 16:11 General: Alert, Oriented x3, Cooperative, No apparent distress Psych/Mental Status: Normal Affect, Appropriate Assessment/Plan Active Problems PAD (peripheral artery disease) (Chronic) Cellulitis and abscess of foot (Chronic) Type 2 diabetes, controlled, with ulcer of heel (Chronic) Peripheral vascular disease (Chronic) Type II diabetes mellitus (Chronic) Valdez grade 3 The patient appears to be tolerating hyperbaric oxygen therapy well, which will be continued as per his medical treatment plan.
--- NOTE | 2019-10-09 18:58 | PCM.WC.PN ---
(1) PAD (peripheral artery disease) Status: Chronic Current Visit: Yes Code(s): I73.9 - Peripheral vascular disease, unspecified (2) Cellulitis and abscess of foot Status: Chronic Current Visit: Yes Code(s): L03.119 - Cellulitis of unspecified part of limb; L02.619 - Cutaneous abscess of unspecified foot (3) Type 2 diabetes, controlled, with ulcer of heel Status: Chronic Current Visit: Yes Code(s): E11.621 - Type 2 diabetes mellitus with foot ulcer; L97.409 - Non-pressure chronic ulcer of unspecified heel and midfoot with unspecified severity (4) Peripheral vascular disease Status: Chronic Current Visit: Yes Code(s): I73.9 - Peripheral vascular disease, unspecified (5) Type II diabetes mellitus Status: Chronic Current Visit: Yes Qualifiers: Diabetes mellitus long term care administrator insulin use: unspecified long term care administrator insulin use status Diabetes mellitus complication status: with skin complications Diabetes mellitus complication detail: with foot ulcer Qualified Code(s): E11.621 - Type 2 diabetes mellitus with foot ulcer; L97.509 - Non-pressure chronic ulcer of other part of unspecified foot with unspecified severity Code(s): E11.9 - Type 2 diabetes mellitus without complications Comment: Valedz grade 3 Type of Wound Date of Service: 10/09/19 Chief Complaint: Nonhealing ulcer right heel, Valdez Grade 3 diabetic ulcer. History of Wound: Gibson is here for evaluation of an ulcer of his right heel. He was recently treated for this same area with Theraskin application and was discharged approximately 8 weeks ago. He has noticed increased pain in his heel for the last 2 weeks and last his noted that the area had opened after his hospice bereavement coordinator had debrided some callus from the area. He has been applying Aquacel and gauze to the ulcer. He does follow with Dr. Navas regularly and had a bypass of his right SFA and popliteal arteries earlier this year. He has had procedures for his arterial disease in past to both of his lower extremities. He has tried alternative treatments with supplements and chelation therapy in the past. He also has diabetes and recent A1C was 7.2% He does wear diabetic shoes. He had been undergoing chelation treatments by Dr. German in [place]. He denies fever, chills, erythema or heavy drainage. He reports significant pain and discomfort of his right heel and his entire right leg which no one can explain. In March 2019, he was hospitalized due to occlusion of his bypass graft in his right leg and Dr. Navas was able to open it 50%. He also has blockages in his left leg. Dr. Navas is unable to revascularize either leg at this time and he may ultimately require limb amputation if his vascular disease worsens. Progress of Wound: Gibson is here to follow up for nonhealing ulcer of his right heel. He reports decreased pain in his right heel since restarting antibiotics. He is tolerating COTY wound vac but it does not seem to be granulating the ulcer as much as intended and may be too weak to achieve suction necessary. He is improving with the combination of hyperbaric oxygen treatments and COTY wound vac but not to the degree that I would expect. There is a moderate to heavy amount of drainage but there has been no leakage through his dressings. Denies fever, chills, erythema. - Physical Exam Vital Signs Temp Pulse Resp BP 96.8 F L 87 16 123/64 H 10/09/19 16:11 10/09/19 16:11 10/09/19 16:11 10/09/19 16:11 General: Alert, Oriented x3, Cooperative, No apparent distress HEENT: Atraumatic, Normocephalic Oral: Moist Mucosa Neck: Supple Extremities: Edema Skin: Ulcer/ Wound Wound Measurements and Assessment WC - Nurse 1 - General Ulcer Measurement Start: 09/16/19 10:44 Freq: Status: Active Protocol: Activity Type Activity Date Activity User E-Sign Co-Sign Detail Recorded Client Recorded Date Recorded By Document 10/09/19 13:42 PL [id number] 10/09/19 13:49 PL 10/09/19 13:42 Wound Center Nurse 1 [Ulcer Assessment] #14- R HEEL -Combined with other wound No -Current Size (cm) - Length 0.4 -Current Size (cm) - Width 0.4 -Current Size (cm) - Depth 0.1 -Total Square Cm 0.16 -Photo Taken No -Epithelialization None Present -Tunneling No -Undermining/Tunneling No -Exudate Amt Small -Exudate Type Serosanguineous -Granulation Amt Small (1-33%) -Granulation Quality [place] -Slough/Fibrin Yes -Necrosis Amt Large (67-100%) -Necrotic Tissue Type Adherent Slough -Moisture (Shahana-wound Skin Appearance Maceration ) -Temperature (Shahana-wound Skin No Abnormality Appearance) (Pt Warm) -Ulcer Cleansing Soap and Water -Anesthetic Used 4% Lidocaine Solution,5% Lidocaine Gel WC - Nurse 2 - General Ulcer CM Notes Start: 09/16/19 10:44 Freq: Status: Active Protocol: Activity Type Activity Date Activity User E-Sign Co-Sign Detail Recorded Client Recorded Date Recorded By Document 10/09/19 14:26 DV [id number] 10/09/19 14:40 DV 10/09/19 14:26 Wound Center Nurse 2 [Procedure/Treatment] -Time 14:28 -Correct Patient Yes -Correct Side, Site, Position Yes -Correct Procedure Yes -Procedure Performed Yes -Type of Procedure Debridement -Clinical Debridement Subcutaneous -Post Debridement Size (cm) - Length 0.8 -Post Debridement Size (cm) - Width 0.7 -Post Debridement Size (cm) - Depth 0.8 -Total Square Cm 0.56 -Wound/Ulcer Outcome Not Healed -Ulcer Cleansing Rinsed/ Irrigated with Saline -Foul Odor after Cleansing No -Bioengineered Tissue No -Bleeding Controlled with Pressure -Offloading No -Type of Offloading Surgical Shoe -Treatment Response Procedure Tolerated Well [See Physician Procedure note for Specifics] Pain Scale: 0-10 Numeric [Pain] -Is Patient Pain Free? Yes Psych/Mental Status: Normal Affect, Appropriate Debridement Note Post-Debridement Measurements/Treatment WC - Nurse 2 - General Ulcer CM Notes Start: 09/16/19 10:44 Freq: Status: Active Protocol: Activity Type Activity Date Activity User E-Sign Co-Sign Detail Recorded Client Recorded Date Recorded By Document 09/18/19 13:33 DV [id number] 09/18/19 13:40 DV Document 10/02/19 13:57 DV [id number] 10/02/19 14:04 DV Document 10/09/19 14:26 DV [id number] 10/09/19 14:40 DV 09/18/19 10/02/19 10/09/19 13:33 13:57 14:26 Wound Center Nurse 2 #16 Left Lateral Whitney -Time 13:34 -Bleeding Controlled with Pressure #14- R HEEL -Time 13:36 13:58 14:28 -Correct Patient Yes Yes Yes -Correct Side, Site, Position Yes Yes Yes -Correct Procedure Yes Yes Yes -Procedure Performed Yes Yes Yes -Type of Procedure Debridement Debridement Debridement -Clinical Debridement Subcutaneous Subcutaneous Subcutaneous -Post Debridement Size (cm) - Length 1.0 0.7 0.8 -Post Debridement Size (cm) - Width 0.8 0.7 0.7 -Post Debridement Size (cm) - Depth 0.7 0.5 0.8 -Total Square Cm 0.80 0.49 0.56 -Wound/Ulcer Outcome Not Healed Not Healed Not Healed -Ulcer Cleansing Rinsed/ Rinsed/ Rinsed/ Irrigated with Irrigated with Irrigated with Saline Saline Saline -Foul Odor after Cleansing No No No -Bioengineered Tissue No No No -Bleeding Controlled with Pressure Pressure Pressure -Offloading No No -Type of Offloading Surgical Shoe Surgical Shoe Surgical Shoe -Treatment Response Procedure Procedure Procedure Tolerated Well Tolerated Well Tolerated Well Pain Scale: 0-10 Numeric Is Patient Pain Free? Yes Yes Yes Wound debrided: right heel Laterality: Right Wound Grade/Stage: Grade 3 Type of Debridement: Excisional debridement Anesthesia Used: 4% Lidocaine Solution, 5% Lidocaine Gel, Cetacaine - lidocaine 2% 5 ml Depth: Down to and including healthy tissue, in the subcutaneous layer, to muscle Percentage of wound debrided: 100 Instrument Used: 5mm curette Tissue Removed: yellow slough, devitalized tissue Severity: Fat Layer Exposed Amount of bleeding with debridement: Mild Bleeding Controlled with: Compression and gauze Patient tolerated procedure well Assessment/Plan Active Problems PAD (peripheral artery disease) (Chronic) Cellulitis and abscess of foot (Chronic) Type 2 diabetes, controlled, with ulcer of heel (Chronic) Peripheral vascular disease (Chronic) Type II diabetes mellitus (Chronic) Valdez grade 3 Assessment: 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 Diabetes mellitus - controlled. Peripheral vascular disease - status post revascularization 08/07/18 and 03/2019 Plan: Gibson's ulcer was evaluated and debrided today with slight improvement in his ulcer compared to last week but still showing increase in maceration and extension of the undermining/tunneling present last week. He is tolerating HBO treatment and without this treatment I do not feel he would achieve progress in healing his ulcer. He has had 42 HBO treatments. It is medically necessary that he continue with hyperbaric oxygen treatments and I am recommending extending his treatments for 20 additional treatments for a total of 60 treatments. Ulcer will be dressed using Verenice to the ulcer bed and then COTY wound vac was placed over his heel ulcer. I am recommending that we try a traditional KCI wound vac instead of the COTY in order to allow him to proceed with HBO treatment and be able to use a higher level of negative pressure to achieve healing. He will continue to use the surgical shoe for offloading. He would continue to benefit from hyperbaric oxygen treatment to help heal his wound and salvage his limb from amputation given his comorbid arterial disease and DFU. Oxycodone 5 mg #45 were prescribed for treatment of pain with debridements on 09/11/2019. OARRS was appropriate. No signs of diversion or abuse. Encouraged to call with any increase in pain or drainage, fever or chills. He will benefit from application of an advanced wound healing product such as Primatrix Ag or Epicord to help heal his ulcer and prevent limb loss in conjunction with hyperbaric oxygen treatment as well as wound vac treatment to heal his ulcer and manage the moderate to heavy drainage that is coming from ulcer. F/U in 1 week.
[2019-10-12 10:46] LABS: Bedside Glucose 191 mg/dL (70-110)
[2019-10-12 12:50] LABS: Bedside Glucose 125 mg/dL (70-110)
--- NOTE | 2019-10-12 15:02 | HBO.PN.PCM_ITS ---
History of Present Illness Date of Service: 10/12/19 Presenting Chief Complaint: Nonhealing ulcer right heel, Valdez Grade 3 diabetic ulcer. TRAM RIVERA is a 69 year old currently undergoing hyperbaric oxygen therapy for Valdez Grade 3 diabetic foot ulcer of his right heel. Progress: Today is the 43rd treatment of hyperbaric oxygen therapy. He is scheduled for 60 treatments total. Tolerance of hyperbaric oxygen therapy: Hyperbaric oxygen treatment was provided as per the facility's protocol at 2.0 ANA in 100% oxygen for 90 minutes without air breaks. The patient tolerated hyperbaric oxygen well, without complications or complaints. Upon emergence of the hyperbaric chamber, the patient's vital s igns remained stable. Pre-and post blood glucose levels are as documented. 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) Diabetes with ulcer of toe (Chronic) PAD (peripheral artery disease) (Chronic) Cellulitis and abscess of foot (Chronic) Type 2 diabetes, controlled, with ulcer of heel (Chronic) Non-healing open wound of heel (Chronic) Hyperlipidemia (Chronic) Peripheral vascular disease (Chronic) Hypertension (Chronic) Coronary artery disease (Chronic) Status post CABG Type II diabetes mellitus (Chronic) Valdez grade 3 Allergies/Adverse Reactions: Allergies rivaroxaban [From Xarelto] Allergy (Verified 02/13/19 16:41) Other Home Medications: Ambulatory Orders Medication Instructions Recorded #17 3 tab PO DAILY 06/13/18 Aspirin [Lite Coat Aspirin] 325 mg PO DAILY 06/13/18 [id number] 1 PO DAILY 06/13/18 Calcium Lactate 1 PO DAILY 06/13/18 Cat C 2 PO DAILY 06/13/18 Cat E2 8 PO DAILY 06/13/18 Cholecalciferol (Vitamin D3) 5,000 mg PO DAILY 06/13/18 [Vitamin D3] Colon Clear 1 tab PO PRN PRN 06/13/18 Inositol 2 PO PRN PRN 06/13/18 Intestinal Cleanse No 1 3 tab PO PRN PRN 06/13/18 Koncentrated K 1 tab PO DAILY 06/13/18 Mag Lactate 1 PO DAILY 06/13/18 Nattokinase 2 tab PO DAILY 06/13/18 Potassium-Derick 1 PO DAILY 06/13/18 Tuna 03 Oil 3 PO DAILY 06/13/18 Zn-Zyme 1 PO DAILY 06/13/18 Clopidogrel Bisulfate [Clopidogrel] 75 mg PO DAILY 09/08/18 traMADol [Ultram] 50 tablet PO PRN PRN 09/08/18 Aurum Metallicum 2 drp PO DAILY 02/13/19 Cbd Oil DAILY 02/13/19 Sibling Family History: Cancer Maternal Family History: Diabetes, Heart Disease, Hypertension, Stroke Paternal Family History: Diabetes, Heart Disease, Pulmonary Disease Lives: Spouse/ Significant Other Smoking Status: Never smoker Tobacco Use: Non-smoker Alcohol: None Drugs: None Physical Exam Vital Signs Temp Pulse Resp BP 96.8 F L 87 16 123/64 H 10/09/19 16:11 10/09/19 16:11 10/09/19 16:11 10/09/19 16:11 General: Alert, Oriented x3, Cooperative HEENT: Atraumatic, TM's Clear - Bilateral TM clear. Left ear canal with an area of redness like it has an abrasion. Patient is denying any pain. Lungs: Clear to auscultation, Normal air movement Cardiovascular: Regular rate, Regular Rhythm Psych/Mental Status: Normal Affect, Appropriate Assessment/Plan Active Problems PAD (peripheral artery disease) (Chronic) Cellulitis and abscess of foot (Chronic) Type 2 diabetes, controlled, with ulcer of heel (Chronic) Peripheral vascular disease (Chronic) Type II diabetes mellitus (Chronic) Valdez grade 3 The patient appears to be tolerating hyperbaric oxygen therapy well, which will be continued as per his medical treatment plan. [id number]
[2019-10-12 15:44] VITALS: BP 126/66; BP 134/86; PULSE 78; PULSE 91; RESP 16; TEMP 36.4; TEMP 36.7
--- NOTE | 2019-10-13 11:17 | HBO.PN.PCM_ITS ---
History of Present Illness Date of Service: 10/13/19 Presenting Chief Complaint: Nonhealing ulcer right heel, Valdez Grade 3 diabetic ulcer. TRAM RIVERA is a 69 year old currently undergoing hyperbaric oxygen therapy for Valdez Grade 3 diabetic foot ulcer of his right heel. Progress: Today is the 44th treatment of hyperbaric oxygen therapy. He is scheduled for 60 treatments total. Tolerance of hyperbaric oxygen therapy: Hyperbaric oxygen treatment was provided as per the facility's protocol at 2.0 ANA in 100% oxygen for 90 minutes without air breaks. The patient tolerated hyperbaric oxygen well, without complications or complaints. Upon emergence of the hyperbaric chamber, the patient's vital s igns remained stable. Pre-and post blood glucose levels are as documented. 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) Diabetes with ulcer of toe (Chronic) PAD (peripheral artery disease) (Chronic) Cellulitis and abscess of foot (Chronic) Type 2 diabetes, controlled, with ulcer of heel (Chronic) Non-healing open wound of heel (Chronic) Hyperlipidemia (Chronic) Peripheral vascular disease (Chronic) Hypertension (Chronic) Coronary artery disease (Chronic) Status post CABG Type II diabetes mellitus (Chronic) Valdez grade 3 Allergies/Adverse Reactions: Allergies rivaroxaban [From Xarelto] Allergy (Verified 02/13/19 16:41) Other Home Medications: Ambulatory Orders Medication Instructions Recorded #17 3 tab PO DAILY 06/13/18 Aspirin [Lite Coat Aspirin] 325 mg PO DAILY 06/13/18 [id number] 1 PO DAILY 06/13/18 Calcium Lactate 1 PO DAILY 06/13/18 Cat C 2 PO DAILY 06/13/18 Cat E2 8 PO DAILY 06/13/18 Cholecalciferol (Vitamin D3) 5,000 mg PO DAILY 06/13/18 [Vitamin D3] Colon Clear 1 tab PO PRN PRN 06/13/18 Inositol 2 PO PRN PRN 06/13/18 Intestinal Cleanse No 1 3 tab PO PRN PRN 06/13/18 Koncentrated K 1 tab PO DAILY 06/13/18 Mag Lactate 1 PO DAILY 06/13/18 Nattokinase 2 tab PO DAILY 06/13/18 Potassium-Derick 1 PO DAILY 06/13/18 Tuna 03 Oil 3 PO DAILY 06/13/18 Zn-Zyme 1 PO DAILY 06/13/18 Clopidogrel Bisulfate [Clopidogrel] 75 mg PO DAILY 09/08/18 traMADol [Ultram] 50 tablet PO PRN PRN 09/08/18 Aurum Metallicum 2 drp PO DAILY 02/13/19 Cbd Oil DAILY 02/13/19 Sibling Family History: Cancer Maternal Family History: Diabetes, Heart Disease, Hypertension, Stroke Paternal Family History: Diabetes, Heart Disease, Pulmonary Disease Lives: Spouse/ Significant Other Smoking Status: Never smoker Tobacco Use: Non-smoker Alcohol: None Drugs: None Physical Exam Vital Signs Temp Pulse Resp BP 97.5 F L 91 16 134/86 H 10/12/19 15:44 10/12/19 15:44 10/12/19 15:44 10/12/19 15:44 General: Alert, Oriented x3, Cooperative, No apparent distress HEENT: Atraumatic, TM's Clear Lungs: Clear to auscultation, Normal air movement Cardiovascular: Regular rate, Regular Rhythm Psych/Mental Status: Normal Affect, Appropriate, Alert and oriented to time, place, person, mood and affect Assessment/Plan Active Problems PAD (peripheral artery disease) (Chronic) Cellulitis and abscess of foot (Chronic) Type 2 diabetes, controlled, with ulcer of heel (Chronic) Peripheral vascular disease (Chronic) Type II diabetes mellitus (Chronic) Valdez grade 3 The patient appears to be tolerating hyperbaric oxygen therapy well, which will be continued as per his medical treatment plan.
[2019-10-13 11:25] LABS: Bedside Glucose 183 mg/dL (70-110)
[2019-10-13 11:26] VITALS: BP 127/72; BP 133/61; PULSE 67; PULSE 70; RESP 16; RESP 18; TEMP 36.1; TEMP 36.2
[2019-10-13 13:06] LABS: Bedside Glucose 135 mg/dL (70-110)
[2019-10-14 10:45] LABS: Bedside Glucose 174 mg/dL (70-110)
--- NOTE | 2019-10-14 12:01 | HBO.PN.PCM_ITS ---
History of Present Illness Date of Service: 10/14/19 Presenting Chief Complaint: Nonhealing ulcer right heel, Valdez Grade 3 diabetic ulcer. TRAM RIVERA is a 69 year old currently undergoing hyperbaric oxygen therapy for Valdez Grade 3 diabetic foot ulcer of his right heel. Progress: Today is the 45th treatment of hyperbaric oxygen therapy. He is scheduled for 60 treatments total. Tolerance of hyperbaric oxygen therapy: Hyperbaric oxygen treatment was provided as per the facility's protocol at 2.0 ANA in 100% oxygen for 90 minutes without air breaks. The patient tolerated hyperbaric oxygen well, without complications or complaints. Upon emergence of the hyperbaric chamber, the patient's vital s igns remained stable. Pre-and post blood glucose levels are as documented. 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) Diabetes with ulcer of toe (Chronic) PAD (peripheral artery disease) (Chronic) Cellulitis and abscess of foot (Chronic) Type 2 diabetes, controlled, with ulcer of heel (Chronic) Non-healing open wound of heel (Chronic) Hyperlipidemia (Chronic) Peripheral vascular disease (Chronic) Hypertension (Chronic) Coronary artery disease (Chronic) Status post CABG Type II diabetes mellitus (Chronic) Valdez grade 3 Allergies/Adverse Reactions: Allergies rivaroxaban [From Xarelto] Allergy (Verified 02/13/19 16:41) Other Home Medications: Ambulatory Orders Medication Instructions Recorded #17 3 tab PO DAILY 06/13/18 Aspirin [Lite Coat Aspirin] 325 mg PO DAILY 06/13/18 [id number] 1 PO DAILY 06/13/18 Calcium Lactate 1 PO DAILY 06/13/18 Cat C 2 PO DAILY 06/13/18 Cat E2 8 PO DAILY 06/13/18 Cholecalciferol (Vitamin D3) 5,000 mg PO DAILY 06/13/18 [Vitamin D3] Colon Clear 1 tab PO PRN PRN 06/13/18 Inositol 2 PO PRN PRN 06/13/18 Intestinal Cleanse No 1 3 tab PO PRN PRN 06/13/18 Koncentrated K 1 tab PO DAILY 06/13/18 Mag Lactate 1 PO DAILY 06/13/18 Nattokinase 2 tab PO DAILY 06/13/18 Potassium-Derick 1 PO DAILY 06/13/18 Tuna 03 Oil 3 PO DAILY 06/13/18 Zn-Zyme 1 PO DAILY 06/13/18 Clopidogrel Bisulfate [Clopidogrel] 75 mg PO DAILY 09/08/18 traMADol [Ultram] 50 tablet PO PRN PRN 09/08/18 Aurum Metallicum 2 drp PO DAILY 02/13/19 Cbd Oil DAILY 02/13/19 Sibling Family History: Cancer Maternal Family History: Diabetes, Heart Disease, Hypertension, Stroke Paternal Family History: Diabetes, Heart Disease, Pulmonary Disease Lives: Spouse/ Significant Other Smoking Status: Never smoker Tobacco Use: Non-smoker Alcohol: None Drugs: None Physical Exam Vital Signs Temp Pulse Resp BP 97 F L 67 18 127/72 H 10/13/19 11:26 10/13/19 11:26 10/13/19 11:26 10/13/19 11:26 Assessment/Plan Active Problems PAD (peripheral artery disease) (Chronic) Cellulitis and abscess of foot (Chronic) Type 2 diabetes, controlled, with ulcer of heel (Chronic) Peripheral vascular disease (Chronic) Type II diabetes mellitus (Chronic) Valdez grade 3 The patient appears to be tolerating hyperbaric oxygen therapy well, which will be continued as per his medical treatment plan.
[2019-10-14 12:46] LABS: Bedside Glucose 116 mg/dL (70-110)
[2019-10-14 13:42] VITALS: BP 130/64; PULSE 68; RESP 18; TEMP 36.7; BMI 24.9
[2019-10-14 14:42] VITALS: BP 130/64; BP 141/79; PULSE 68; PULSE 80; RESP 18; TEMP 36.3; TEMP 36.7
[2019-10-15 11:01] LABS: Bedside Glucose 194 mg/dL (70-110)
[2019-10-15 11:16] VITALS: BP 111/67; BP 149/79; PULSE 73; PULSE 78; RESP 16; TEMP 36.2; TEMP 36.9
[2019-10-15 13:01] LABS: Bedside Glucose 134 mg/dL (70-110)
--- NOTE | 2019-10-15 13:07 | HBO.PN.PCM_ITS ---
History of Present Illness Date of Service: 10/15/19 Presenting Chief Complaint: Nonhealing ulcer right heel, Valdez Grade 3 diabetic ulcer. TRAM RIVERA is a 69 year old currently undergoing hyperbaric oxygen therapy for Valdez Grade 3 diabetic foot ulcer of his right heel. Progress: Today is the 46th treatment of hyperbaric oxygen therapy. He is scheduled for 60 treatments total. Tolerance of hyperbaric oxygen therapy: Hyperbaric oxygen treatment was provided as per the facility's protocol at 2.0 ANA in 100% oxygen for 90 minutes without air breaks. The patient tolerated hyperbaric oxygen well, without complications or complaints. Upon emergence of the hyperbaric chamber, the patient's vital s igns remained stable. Pre-and post blood glucose levels are as documented. 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) Diabetes with ulcer of toe (Chronic) PAD (peripheral artery disease) (Chronic) Cellulitis and abscess of foot (Chronic) Type 2 diabetes, controlled, with ulcer of heel (Chronic) Non-healing open wound of heel (Chronic) Hyperlipidemia (Chronic) Peripheral vascular disease (Chronic) Hypertension (Chronic) Coronary artery disease (Chronic) Status post CABG Type II diabetes mellitus (Chronic) Valdez grade 3 Allergies/Adverse Reactions: Allergies rivaroxaban [From Xarelto] Allergy (Verified 02/13/19 16:41) Other Home Medications: Ambulatory Orders Medication Instructions Recorded #17 3 tab PO DAILY 06/13/18 Aspirin [Lite Coat Aspirin] 325 mg PO DAILY 06/13/18 [id number] 1 PO DAILY 06/13/18 Calcium Lactate 1 PO DAILY 06/13/18 Cat C 2 PO DAILY 06/13/18 Cat E2 8 PO DAILY 06/13/18 Cholecalciferol (Vitamin D3) 5,000 mg PO DAILY 06/13/18 [Vitamin D3] Colon Clear 1 tab PO PRN PRN 06/13/18 Inositol 2 PO PRN PRN 06/13/18 Intestinal Cleanse No 1 3 tab PO PRN PRN 06/13/18 Koncentrated K 1 tab PO DAILY 06/13/18 Mag Lactate 1 PO DAILY 06/13/18 Nattokinase 2 tab PO DAILY 06/13/18 Potassium-Derick 1 PO DAILY 06/13/18 Tuna 03 Oil 3 PO DAILY 06/13/18 Zn-Zyme 1 PO DAILY 06/13/18 Clopidogrel Bisulfate [Clopidogrel] 75 mg PO DAILY 09/08/18 traMADol [Ultram] 50 tablet PO PRN PRN 09/08/18 Aurum Metallicum 2 drp PO DAILY 02/13/19 Cbd Oil DAILY 02/13/19 Sibling Family History: Cancer Maternal Family History: Diabetes, Heart Disease, Hypertension, Stroke Paternal Family History: Diabetes, Heart Disease, Pulmonary Disease Lives: Spouse/ Significant Other Smoking Status: Never smoker Tobacco Use: Non-smoker Alcohol: None Drugs: None Physical Exam Vital Signs Temp Pulse Resp BP 97.2 F L 78 16 111/67 10/15/19 11:16 10/15/19 11:16 10/15/19 11:16 10/15/19 11:16 General: Alert, Oriented x3, Cooperative, No apparent distress HEENT: Atraumatic Lungs: Normal air movement Psych/Mental Status: Normal Affect Assessment/Plan Active Problems PAD (peripheral artery disease) (Chronic) Cellulitis and abscess of foot (Chronic) Type 2 diabetes, controlled, with ulcer of heel (Chronic) Peripheral vascular disease (Chronic) Type II diabetes mellitus (Chronic) Valdez grade 3 The patient appears to be tolerating hyperbaric oxygen therapy well, which will be continued as per his medical treatment plan. HBO supervision
--- NOTE | 2019-11-05 08:39 | WC ---
Update on wound vac ordered and originally refused by patient. Michelle from [facility] was able to save the information originally sent to Velia from [facility] and wound vac was reordered. Updated notes were sent on 11/03/2019 and Koki FRANKEL sent on 11/04/2019. Per txt msg received from Michelle, she did get both faxes and submitted for insurance verification.
== END 2019-10-15 23:59 ==
LOC: WC 10:30
PROVIDERS: Family Provider Family Medicine; PCP Family Medicine; Referring Provider Family Medicine; Visit Provider Family Medicine
DX: E11.621 Type 2 diabetes mellitus with foot ulcer (principal); E11.51 Type 2 diabetes mellitus with diabetic peripheral angiopathy without gangrene; E78.5 Hyperlipidemia, unspecified; I25.10 Atherosclerotic heart disease of native coronary artery without angina pectoris; I10 Essential (primary) hypertension; L97.412 Non-pressure chronic ulcer of right heel and midfoot with fat layer exposed; L03.119 Cellulitis of unspecified part of limb; Z95.1 Presence of aortocoronary bypass graft
CPT/HCPCS: 11042; 11045; 82962; 87070; 87075; 87077; 87186; 87205; 87640; 97605; 99183; 99212; G0277; G0463

== ENCOUNTER 2019-11-13 10:15 | Outpatient (RCR) | payer MEDICARE, OTHER, SELFPAY ==
[2019-10-14 13:42] VITALS: BMI 24.9
[2019-10-16 00:08] VITALS: BP 149/79; PULSE 73; RESP 16; TEMP 36.9
[2019-10-16 12:55] LABS: Bedside Glucose 128 mg/dL (70-110)
[2019-10-16 12:59] VITALS: BP 149/79; PULSE 77; RESP 18; TEMP 36.8; BMI 24.9
[2019-10-16 14:17] VITALS: BP 138/75; BP 149/79; PULSE 77; PULSE 85; RESP 18; TEMP 36.4; TEMP 36.8
[2019-10-16 16:25] LABS: Bedside Glucose 203 mg/dL (70-110)
--- NOTE | 2019-10-16 16:49 | PCM.HBO.PN ---
History of Present Illness Date of Service: 10/16/19 Presenting Chief Complaint: Nonhealing ulcer right heel, Valdez Grade 3 diabetic ulcer. TRAM RIVERA is a 69 year old currently undergoing hyperbaric oxygen therapy for Valdez Grade 3 diabetic foot ulcer of his right heel. Progress: Today is the 47th treatment of hyperbaric oxygen therapy. He is scheduled for 60 treatments total. Tolerance of hyperbaric oxygen therapy: Hyperbaric oxygen treatment was provided as per the facility's protocol at 2.0 ANA in 100% oxygen for 90 minutes without air breaks. The patient tolerated hyperbaric oxygen well, without complications or complaints. Upon emergence of the hyperbaric chamber, the patient's vital signs remained stable. Pre-and post blood glucose levels are as documented. 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) Diabetes with ulcer of toe (Chronic) PAD (peripheral artery disease) (Chronic) Cellulitis and abscess of foot (Chronic) Type 2 diabetes, controlled, with ulcer of heel (Chronic) Non-healing open wound of heel (Chronic) Hyperlipidemia (Chronic) Peripheral vascular disease (Chronic) Hypertension (Chronic) Coronary artery disease (Chronic) Status post CABG Type II diabetes mellitus (Chronic) Valdez grade 3 Allergies/Adverse Reactions: Allergies rivaroxaban [From Xarelto] Allergy (Verified 02/13/19 16:41) Other Home Medications: Ambulatory Orders Medication Instructions Recorded #17 3 tab PO DAILY 06/13/18 Aspirin [Lite Coat Aspirin] 325 mg PO DAILY 06/13/18 [id number] 1 PO DAILY 06/13/18 Calcium Lactate 1 PO DAILY 06/13/18 Cat C 2 PO DAILY 06/13/18 Cat E2 8 PO DAILY 06/13/18 Cholecalciferol (Vitamin D3) 5,000 mg PO DAILY 06/13/18 [Vitamin D3] Colon Clear 1 tab PO PRN PRN 06/13/18 Inositol 2 PO PRN PRN 06/13/18 Intestinal Cleanse No 1 3 tab PO PRN PRN 06/13/18 Koncentrated K 1 tab PO DAILY 06/13/18 Mag Lactate 1 PO DAILY 06/13/18 Nattokinase 2 tab PO DAILY 06/13/18 Potassium-Derick 1 PO DAILY 06/13/18 Tuna 03 Oil 3 PO DAILY 06/13/18 Zn-Zyme 1 PO DAILY 06/13/18 Clopidogrel Bisulfate [Clopidogrel] 75 mg PO DAILY 09/08/18 traMADol [Ultram] 50 tablet PO PRN PRN 09/08/18 Aurum Metallicum 2 drp PO DAILY 02/13/19 Cbd Oil DAILY 02/13/19 Sibling Family History: Cancer Maternal Family History: Diabetes, Heart Disease, Hypertension, Stroke Paternal Family History: Diabetes, Heart Disease, Pulmonary Disease Lives: Spouse/ Significant Other Smoking Status: Never smoker Tobacco Use: Non-smoker Alcohol: None Drugs: None Physical Exam Vital Signs Temp Pulse Resp BP 97.5 F L 85 18 138/75 H 10/16/19 14:17 10/16/19 14:17 10/16/19 14:17 10/16/19 14:17 General: Alert, Oriented x3, Cooperative, No apparent distress Psych/Mental Status: Normal Affect, Appropriate Assessment/Plan Active Problems Type 2 diabetes, uncontrolled, with ulcer of heel (Chronic) right plantar heel PAD (peripheral artery disease) (Chronic) Cellulitis and abscess of foot (Chronic) Type 2 diabetes, controlled, with ulcer of heel (Chronic) Non-healing open wound of heel (Chronic) Peripheral vascular disease (Chronic) Type II diabetes mellitus (Chronic) Valdez grade 3 The patient appears to be tolerating hyperbaric oxygen therapy well, which will be continued as per his medical treatment plan.
--- NOTE | 2019-10-16 17:33 | PCM.WC.PN ---
(1) Type 2 diabetes, uncontrolled, with ulcer of heel Status: Chronic Current Visit: Yes Code(s): E11.621 - Type 2 diabetes mellitus with foot ulcer; E11.65 - Type 2 diabetes mellitus with hyperglycemia; L97.409 - Non-pressure chronic ulcer of unspecified heel and midfoot with unspecified severity Comment: right plantar heel (2) PAD (peripheral artery disease) Status: Chronic Current Visit: Yes Code(s): I73.9 - Peripheral vascular disease, unspecified (3) Cellulitis and abscess of foot Status: Chronic Current Visit: Yes Code(s): L03.119 - Cellulitis of unspecified part of limb; L02.619 - Cutaneous abscess of unspecified foot (4) Type 2 diabetes, controlled, with ulcer of heel Status: Chronic Current Visit: Yes Code(s): E11.621 - Type 2 diabetes mellitus with foot ulcer; L97.409 - Non-pressure chronic ulcer of unspecified heel and midfoot with unspecified severity (5) Non-healing open wound of heel Status: Chronic Current Visit: Yes Qualifiers: Encounter type: subsequent encounter Laterality: right Qualified Code(s): S91.301D - Unspecified open wound, right foot, subsequent encounter Code(s): S91.309A - Unspecified open wound, unspecified foot, initial encounter (6) Type II diabetes mellitus Status: Chronic Current Visit: Yes 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 History of Wound: Gibson is here for evaluation of an ulcer of his right heel. He was recently treated for this same area with [place] application and was discharged approximately 8 weeks ago. 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 He has been applying Aquacel and gauze to the ulcer. He does follow with Dr. Navas regularly and had a bypass of his right SFA and popliteal arteries earlier this year. He has had procedures for his arterial disease in past to both of his lower extremities. He has tried alternative treatments with supplements and chelation therapy in the past. He also has diabetes and recent A1C was 7.2% He does wear diabetic shoes. He had been undergoing chelation treatments by Dr. German in [place]. He denies fever, chills, erythema or heavy drainage. He reports significant pain and discomfort of his right heel and his entire right leg which no one can explain. In March 2019, he was hospitalized due to occlusion of his bypass graft in his right leg and Dr. Navas was able to open it 50%. He also has blockages in his left leg. Dr. Navas is unable to revascularize either leg at this time and he may ultimately require limb amputation if his vascular disease worsens. Progress of Wound: Gibson is here to follow up for nonhealing ulcer of his right heel. He reports his pain is better this week. He had a snap vac placed on Saturday. A [facility] wound traditional wound vac was ordered but was not going to be available until today at the earliest. There was also discussion and ultimately clarification regarding whether the SNAP vac bridge dressing could be placed in the HBO chamber, which it is allowed to enter the HBO chamber safely. He is improving with the combination of hyperbaric oxygen treatments and I am hopeful with the appropriate negative pressure vac we will see increased improvement. There is a heavy amount of drainage but there has been no leakage through his dressings. Denies fever, chills, erythema. - Physical Exam Vital Signs Temp Pulse Resp BP 97.5 F L 85 18 138/75 H 10/16/19 14:17 10/16/19 14:17 10/16/19 14:17 10/16/19 14:17 General: Alert, Oriented x3, Cooperative, No apparent distress HEENT: Atraumatic, Normocephalic Abdomen: Soft Extremities: No edema, Cool, Diminished Peripheral Pulses Skin: Ulcer/ Wound Wound Measurements and Assessment WC - Nurse 1 - General Ulcer Measurement Start: 10/16/19 12:59 Freq: Status: Active Protocol: Activity Type Activity Date Activity User E-Sign Co-Sign Detail Recorded Client Recorded Date Recorded By Document 10/16/19 12:59 MW [id number] 10/16/19 13:20 MW 10/16/19 12:59 Wound Center Nurse 1 [Ulcer Assessment] #14- R HEEL -Combined with other wound No -Current Size (cm) - Length 0.7 -Current Size (cm) - Width 0.5 -Current Size (cm) - Depth 0.2 -Total Square Cm 0.35 -Photo Taken No -Epithelialization None Present -Tunneling No -Undermining/Tunneling No -Circular Undermining No -Exudate Amt Medium -Exudate Type Serosanguineous -Wound Margin Distinct, Outline Attached -Granulation Amt Small (1-33%) -Granulation Quality [place] -Slough/Fibrin Yes -Necrosis Amt Medium (34-66%) -Necrotic Tissue Type Adherent Slough -Structure Exposed N/A -Texture (Shahana-wound Skin Appearance) Assessed, Scarring -Moisture (Shahana-wound Skin Appearance Assessed, ) Maceration -Color (Shahana-wound Skin Appearance) No Abnormality, Assessed -Temperature (Shahana-wound Skin No Abnormality Appearance) (Pt Warm) -Tenderness on Palpation (Shahana-wound Yes Skin Appearance) -Ulcer Cleansing soap and water -Foul Odor after Cleansing No -Anesthetic Used 4% Lidocaine Solution [Edema Assessment] -Lower Limb Edema Present No WC - Nurse 2 - General Ulcer CM Notes Start: 10/16/19 12:59 Freq: Status: Active Protocol: Activity Type Activity Date Activity User E-Sign Co-Sign Detail Recorded Client Recorded Date Recorded By Document 10/16/19 13:46 DV [id number] 10/16/19 14:03 DV 10/16/19 13:46 Wound Center Nurse 2 [Procedure/Treatment] #14- R HEEL -Time 13:46 -Correct Patient Yes -Correct Side, Site, Position Yes -Correct Procedure Yes -Procedure Performed Yes -Type of Procedure Debridement -Clinical Debridement Subcutaneous -Post Debridement Size (cm) - Length 1.0 -Post Debridement Size (cm) - Width 1.3 -Post Debridement Size (cm) - Depth 0.5 -Total Square Cm 1.30 -Wound/Ulcer Outcome Not Healed -Ulcer Cleansing Rinsed/ Irrigated with Saline -Foul Odor after Cleansing No -Bioengineered Tissue No -Bleeding Controlled with Pressure -Offloading Yes -Type of Offloading Surgical Shoe -Treatment Response Procedure Tolerated Well [See Physician Procedure note for Specifics] Pain Scale: 0-10 Numeric [Pain] -Is Patient Pain Free? Yes Psych/Mental Status: Normal Affect, Appropriate Debridement Note Post-Debridement Measurements/Treatment WC - Nurse 2 - General Ulcer CM Notes Start: 10/16/19 12:59 Freq: Status: Active Protocol: Activity Type Activity Date Activity User E-Sign Co-Sign Detail Recorded Client Recorded Date Recorded By Document 10/16/19 13:46 DV [id number] 10/16/19 14:03 DV 10/16/19 13:46 Wound Center Nurse 2 #14- R HEEL -Time 13:46 -Correct Patient Yes -Correct Side, Site, Position Yes -Correct Procedure Yes -Procedure Performed Yes -Type of Procedure Debridement -Clinical Debridement Subcutaneous -Post Debridement Size (cm) - Length 1.0 -Post Debridement Size (cm) - Width 1.3 -Post Debridement Size (cm) - Depth 0.5 -Total Square Cm 1.30 -Wound/Ulcer Outcome Not Healed -Ulcer Cleansing Rinsed/ Irrigated with Saline -Foul Odor after Cleansing No -Bioengineered Tissue No -Bleeding Controlled with Pressure -Offloading Yes -Type of Offloading Surgical Shoe -Treatment Response Procedure Tolerated Well Pain Scale: 0-10 Numeric Is Patient Pain Free? Yes Wound debrided: right heel Laterality: Right Wound Grade/Stage: Valdez grade 3 Type of Debridement: Excisional debridement Anesthesia Used: 4% Lidocaine Solution, 5% Lidocaine Gel, Cetacaine - lidocaine 2% 5 ml Depth: Down to and including healthy tissue, in the subcutaneous layer, to muscle Percentage of wound debrided: 100 Instrument Used: #15 blade, Forceps Tissue Removed: yellow slough, devitalized tissue Severity: Fat Layer Exposed Amount of bleeding with debridement: Mild Bleeding Controlled with: Compression and gauze Patient tolerated procedure well Assessment/Plan Active Problems Type 2 diabetes, uncontrolled, with ulcer of heel (Chronic) right plantar heel PAD (peripheral artery disease) (Chronic) Cellulitis and abscess of foot (Chronic) Type 2 diabetes, controlled, with ulcer of heel (Chronic) Non-healing open wound of heel (Chronic) Peripheral vascular disease (Chronic) Type II diabetes mellitus (Chronic) Valdez grade 3 Assessment: 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 Diabetes mellitus - controlled. Peripheral vascular disease - status post revascularization 08/07/18 and 03/2019 Plan: Gibson's ulcer was evaluated and debrided today with slight improvement in his ulcer compared to last week but still showing increase in maceration. He is tolerating HBO treatment and without this treatment I do not feel he would achieve progress in healing his ulcer. He has had 47 of 60 HBO treatments as of today October 16, 2019. It is medically necessary that he continue with hyperbaric oxygen treatments to salvage his limb and I am recommending extending his planned 60 treatments for 20 additional treatments. If this is approved and completed he will undergo 80 total treatments. Ulcer will be dressed with a SNAP vac with white gauze packed into the undermining/tunnel. If there continues to be maceration then we will need to proceed with [facility] wound vac to increase the negative pressure to 150 mm Hg. He will continue to use the surgical shoe for offloading. He will continue to benefit from hyperbaric oxygen treatment to help heal his wound and salvage his limb from amputation given his comorbid arterial disease and DFU. Oxycodone 5 mg #45 were prescribed for treatment of pain with debridements on 10/16/2019. OARRS was appropriate. No signs of diversion or abuse. Encouraged to call with any increase in pain or drainage, fever or chills. He will benefit from hyperbaric oxygen treatment as well as wound vac treatment to heal his ulcer and manage the moderate to heavy drainage that is coming from ulcer. F/U in 1 week.
[2019-10-19 10:46] LABS: Bedside Glucose 206 mg/dL (70-110)
[2019-10-19 11:13] VITALS: BP 125/69; PULSE 85; RESP 18; TEMP 36.2
[2019-10-19 13:00] LABS: Bedside Glucose 153 mg/dL (70-110)
[2019-10-19 14:32] VITALS: BP 142/69; PULSE 74; RESP 18; TEMP 36.7
--- NOTE | 2019-10-19 14:42 | PCM.HBO.PN ---
History of Present Illness Date of Service: 10/19/19 Presenting Chief Complaint: Nonhealing ulcer right heel, Valdez Grade 3 diabetic ulcer. TRAM RIVERA is a 69 year old currently undergoing hyperbaric oxygen therapy for Valdez Grade 3 diabetic foot ulcer of his right heel. Progress: Today is the 48th treatment of hyperbaric oxygen therapy. He is scheduled for 60 treatments total. Tolerance of hyperbaric oxygen therapy: Hyperbaric oxygen treatment was provided as per the facility's protocol at 2.0 ANA in 100% oxygen for 90 minutes without air breaks. The patient tolerated hyperbaric oxygen well, without complications or complaints. Upon emergence of the hyperbaric chamber, the patient's vital signs remained stable. Pre-and post blood glucose levels are as documented. 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) Diabetes with ulcer of toe (Chronic) PAD (peripheral artery disease) (Chronic) Cellulitis and abscess of foot (Chronic) Type 2 diabetes, controlled, with ulcer of heel (Chronic) Non-healing open wound of heel (Chronic) Hyperlipidemia (Chronic) Peripheral vascular disease (Chronic) Hypertension (Chronic) Coronary artery disease (Chronic) Status post CABG Type II diabetes mellitus (Chronic) Valdez grade 3 Allergies/Adverse Reactions: Allergies rivaroxaban [From Xarelto] Allergy (Verified 02/13/19 16:41) Other Home Medications: Ambulatory Orders Medication Instructions Recorded #17 3 tab PO DAILY 06/13/18 Aspirin [Lite Coat Aspirin] 325 mg PO DAILY 06/13/18 [id number] 1 PO DAILY 06/13/18 Calcium Lactate 1 PO DAILY 06/13/18 Cat C 2 PO DAILY 06/13/18 Cat E2 8 PO DAILY 06/13/18 Cholecalciferol (Vitamin D3) 5,000 mg PO DAILY 06/13/18 [Vitamin D3] Colon Clear 1 tab PO PRN PRN 06/13/18 Inositol 2 PO PRN PRN 06/13/18 Intestinal Cleanse No 1 3 tab PO PRN PRN 06/13/18 Koncentrated K 1 tab PO DAILY 06/13/18 Mag Lactate 1 PO DAILY 06/13/18 Nattokinase 2 tab PO DAILY 06/13/18 Potassium-Derick 1 PO DAILY 06/13/18 Tuna 03 Oil 3 PO DAILY 06/13/18 Zn-Zyme 1 PO DAILY 06/13/18 Clopidogrel Bisulfate [Clopidogrel] 75 mg PO DAILY 09/08/18 traMADol [Ultram] 50 tablet PO PRN PRN 09/08/18 Aurum Metallicum 2 drp PO DAILY 02/13/19 Cbd Oil DAILY 02/13/19 Sibling Family History: Cancer Maternal Family History: Diabetes, Heart Disease, Hypertension, Stroke Paternal Family History: Diabetes, Heart Disease, Pulmonary Disease Lives: Spouse/ Significant Other Smoking Status: Never smoker Tobacco Use: Non-smoker Alcohol: None Drugs: None Physical Exam Vital Signs Temp Pulse Resp BP 98.1 F 74 18 142/69 H 10/19/19 14:32 10/19/19 14:32 10/19/19 14:32 10/19/19 14:32 General: Alert, Oriented x3, Cooperative HEENT: Atraumatic, Normocephalic, TM's Clear Lungs: Clear to auscultation, Normal air movement Cardiovascular: Regular rate, Regular Rhythm Psych/Mental Status: Normal Affect, Appropriate Assessment/Plan Active Problems Type 2 diabetes, uncontrolled, with ulcer of heel (Chronic) right plantar heel PAD (peripheral artery disease) (Chronic) Cellulitis and abscess of foot (Chronic) Type 2 diabetes, controlled, with ulcer of heel (Chronic) Non-healing open wound of heel (Chronic) Type II diabetes mellitus (Chronic) Valdez grade 3 The patient appears to be tolerating hyperbaric oxygen therapy well, which will be continued as per his medical treatment plan. [id number]
[2019-10-20 10:45] LABS: Bedside Glucose 198 mg/dL (70-110)
--- NOTE | 2019-10-20 11:24 | PCM.HBO.PN ---
History of Present Illness Date of Service: 10/20/19 Presenting Chief Complaint: Nonhealing ulcer right heel, Valdez Grade 3 diabetic ulcer. TARM RIVERA is a 69 year old currently undergoing hyperbaric oxygen therapy for Valdez Grade 3 diabetic foot ulcer of his right heel. Progress: Today is the 49th treatment of hyperbaric oxygen therapy. He is scheduled for 60 treatments total. Tolerance of hyperbaric oxygen therapy: Hyperbaric oxygen treatment was provided as per the facility's protocol at 2.0 ANA in 100% oxygen for 90 minutes without air breaks. The patient tolerated hyperbaric oxygen well, without complications or complaints. Upon emergence of the hyperbaric chamber, the patient's vital signs remained stable. Pre-and post blood glucose levels are as documented. 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) Diabetes with ulcer of toe (Chronic) PAD (peripheral artery disease) (Chronic) Cellulitis and abscess of foot (Chronic) Type 2 diabetes, controlled, with ulcer of heel (Chronic) Non-healing open wound of heel (Chronic) Hyperlipidemia (Chronic) Peripheral vascular disease (Chronic) Hypertension (Chronic) Coronary artery disease (Chronic) Status post CABG Type II diabetes mellitus (Chronic) Valdez grade 3 Allergies/Adverse Reactions: Allergies rivaroxaban [From Xarelto] Allergy (Verified 02/13/19 16:41) Other Home Medications: Ambulatory Orders Medication Instructions Recorded #17 3 tab PO DAILY 06/13/18 Aspirin [Lite Coat Aspirin] 325 mg PO DAILY 06/13/18 [id number] 1 PO DAILY 06/13/18 Calcium Lactate 1 PO DAILY 06/13/18 Cat C 2 PO DAILY 06/13/18 Cat E2 8 PO DAILY 06/13/18 Cholecalciferol (Vitamin D3) 5,000 mg PO DAILY 06/13/18 [Vitamin D3] Colon Clear 1 tab PO PRN PRN 06/13/18 Inositol 2 PO PRN PRN 06/13/18 Intestinal Cleanse No 1 3 tab PO PRN PRN 06/13/18 Koncentrated K 1 tab PO DAILY 06/13/18 Mag Lactate 1 PO DAILY 06/13/18 Nattokinase 2 tab PO DAILY 06/13/18 Potassium-Derick 1 PO DAILY 06/13/18 Tuna 03 Oil 3 PO DAILY 06/13/18 Zn-Zyme 1 PO DAILY 06/13/18 Clopidogrel Bisulfate [Clopidogrel] 75 mg PO DAILY 09/08/18 traMADol [Ultram] 50 tablet PO PRN PRN 09/08/18 Aurum Metallicum 2 drp PO DAILY 02/13/19 Cbd Oil DAILY 02/13/19 Sibling Family History: Cancer Maternal Family History: Diabetes, Heart Disease, Hypertension, Stroke Paternal Family History: Diabetes, Heart Disease, Pulmonary Disease Lives: Spouse/ Significant Other Smoking Status: Never smoker Tobacco Use: Non-smoker Alcohol: None Drugs: None Physical Exam Vital Signs Temp Pulse Resp BP 98.1 F 74 18 142/69 H 10/19/19 14:32 10/19/19 14:32 10/19/19 14:32 10/19/19 14:32 General: Alert, Oriented x3, Cooperative, No apparent distress HEENT: Atraumatic, TM's Clear Lungs: Clear to auscultation, Normal air movement Cardiovascular: No murmurs, Irregular Rate Psych/Mental Status: Normal Affect, Appropriate, Alert and oriented to time, place, person, mood and affect Assessment/Plan Active Problems Type 2 diabetes, uncontrolled, with ulcer of heel (Chronic) right plantar heel PAD (peripheral artery disease) (Chronic) Cellulitis and abscess of foot (Chronic) Type 2 diabetes, controlled, with ulcer of heel (Chronic) Non-healing open wound of heel (Chronic) Type II diabetes mellitus (Chronic) Valdez grade 3 The patient appears to be tolerating hyperbaric oxygen therapy well, which will be continued as per his medical treatment plan.
[2019-10-20 13:20] LABS: Bedside Glucose 102 mg/dL (70-110)
[2019-10-21 08:33] VITALS: BP 142/79; BP 147/88; PULSE 74; PULSE 77; RESP 18; TEMP 36.3; TEMP 36.7
[2019-10-21 11:00] LABS: Bedside Glucose 180 mg/dL (70-110)
[2019-10-21 11:24] VITALS: BP 136/80; BP 139/76; PULSE 73; PULSE 84; RESP 16; RESP 18; TEMP 36.2
--- NOTE | 2019-10-21 12:13 | PCM.HBO.PN ---
History of Present Illness Date of Service: 10/21/19 Presenting Chief Complaint: Nonhealing ulcer right heel, Valdez Grade 3 diabetic ulcer. TRAM RIVERA is a 69 year old currently undergoing hyperbaric oxygen therapy for Valdez Grade 3 diabetic foot ulcer of his right heel. Progress: Today is the 50th treatment of hyperbaric oxygen therapy. He is scheduled for 60 treatments total. Tolerance of hyperbaric oxygen therapy: Hyperbaric oxygen treatment was provided as per the facility's protocol at 2.0 ANA in 100% oxygen for 90 minutes without air breaks. The patient tolerated hyperbaric oxygen well, without complications or complaints. Upon emergence of the hyperbaric chamber, the patient's vital signs remained stable. Pre-and post blood glucose levels are as documented. 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) Diabetes with ulcer of toe (Chronic) PAD (peripheral artery disease) (Chronic) Cellulitis and abscess of foot (Chronic) Type 2 diabetes, controlled, with ulcer of heel (Chronic) Non-healing open wound of heel (Chronic) Hyperlipidemia (Chronic) Peripheral vascular disease (Chronic) Hypertension (Chronic) Coronary artery disease (Chronic) Status post CABG Type II diabetes mellitus (Chronic) Valdez grade 3 Allergies/Adverse Reactions: Allergies rivaroxaban [From Xarelto] Allergy (Verified 02/13/19 16:41) Other Home Medications: Ambulatory Orders Medication Instructions Recorded #17 3 tab PO DAILY 06/13/18 Aspirin [Lite Coat Aspirin] 325 mg PO DAILY 06/13/18 [id number] 1 PO DAILY 06/13/18 Calcium Lactate 1 PO DAILY 06/13/18 Cat C 2 PO DAILY 06/13/18 Cat E2 8 PO DAILY 06/13/18 Cholecalciferol (Vitamin D3) 5,000 mg PO DAILY 06/13/18 [Vitamin D3] Colon Clear 1 tab PO PRN PRN 06/13/18 Inositol 2 PO PRN PRN 06/13/18 Intestinal Cleanse No 1 3 tab PO PRN PRN 06/13/18 Koncentrated K 1 tab PO DAILY 06/13/18 Mag Lactate 1 PO DAILY 06/13/18 Nattokinase 2 tab PO DAILY 06/13/18 Potassium-Derick 1 PO DAILY 06/13/18 Tuna 03 Oil 3 PO DAILY 06/13/18 Zn-Zyme 1 PO DAILY 06/13/18 Clopidogrel Bisulfate [Clopidogrel] 75 mg PO DAILY 09/08/18 traMADol [Ultram] 50 tablet PO PRN PRN 09/08/18 Aurum Metallicum 2 drp PO DAILY 02/13/19 Cbd Oil DAILY 02/13/19 Sibling Family History: Cancer Maternal Family History: Diabetes, Heart Disease, Hypertension, Stroke Paternal Family History: Diabetes, Heart Disease, Pulmonary Disease Lives: Spouse/ Significant Other Smoking Status: Never smoker Tobacco Use: Non-smoker Alcohol: None Drugs: None Physical Exam Vital Signs Temp Pulse Resp BP 97.2 F L 84 18 136/80 H 10/21/19 11:24 10/21/19 11:24 10/21/19 11:24 10/21/19 11:24 Assessment/Plan Active Problems Type 2 diabetes, uncontrolled, with ulcer of heel (Chronic) right plantar heel PAD (peripheral artery disease) (Chronic) Cellulitis and abscess of foot (Chronic) Type 2 diabetes, controlled, with ulcer of heel (Chronic) Non-healing open wound of heel (Chronic) Type II diabetes mellitus (Chronic) Valdez grade 3 The patient appears to be tolerating hyperbaric oxygen therapy well, which will be continued as per his medical treatment plan.
[2019-10-21 13:36] LABS: Bedside Glucose 145 mg/dL (70-110)
[2019-10-22 10:41] LABS: Bedside Glucose 206 mg/dL (70-110)
[2019-10-22 11:00] VITALS: BP 130/68; PULSE 90; RESP 18; TEMP 36.5
--- NOTE | 2019-10-22 12:46 | PCM.HBO.PN ---
History of Present Illness Date of Service: 10/22/19 Presenting Chief Complaint: Nonhealing ulcer right heel, Valdez Grade 3 diabetic ulcer. TRAM RIVERA is a 69 year old currently undergoing hyperbaric oxygen therapy for Valdez Grade 3 diabetic foot ulcer of his right heel. Progress: Today is the 51st treatment of hyperbaric oxygen therapy. He is scheduled for 60 treatments total. Tolerance of hyperbaric oxygen therapy: Hyperbaric oxygen treatment was provided as per the facility's protocol at 2.0 ANA in 100% oxygen for 90 minutes without air breaks. The patient tolerated hyperbaric oxygen well, without complications or complaints. Upon emergence of the hyperbaric chamber, the patient's vital signs remained stable. Pre-and post blood glucose levels are as documented. 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) Diabetes with ulcer of toe (Chronic) PAD (peripheral artery disease) (Chronic) Cellulitis and abscess of foot (Chronic) Type 2 diabetes, controlled, with ulcer of heel (Chronic) Non-healing open wound of heel (Chronic) Hyperlipidemia (Chronic) Peripheral vascular disease (Chronic) Hypertension (Chronic) Coronary artery disease (Chronic) Status post CABG Type II diabetes mellitus (Chronic) Valdez grade 3 Allergies/Adverse Reactions: Allergies rivaroxaban [From Xarelto] Allergy (Verified 02/13/19 16:41) Other Home Medications: Ambulatory Orders Medication Instructions Recorded #17 3 tab PO DAILY 06/13/18 Aspirin [Lite Coat Aspirin] 325 mg PO DAILY 06/13/18 [id number] 1 PO DAILY 06/13/18 Calcium Lactate 1 PO DAILY 06/13/18 Cat C 2 PO DAILY 06/13/18 Cat E2 8 PO DAILY 06/13/18 Cholecalciferol (Vitamin D3) 5,000 mg PO DAILY 06/13/18 [Vitamin D3] Colon Clear 1 tab PO PRN PRN 06/13/18 Inositol 2 PO PRN PRN 06/13/18 Intestinal Cleanse No 1 3 tab PO PRN PRN 06/13/18 Koncentrated K 1 tab PO DAILY 06/13/18 Mag Lactate 1 PO DAILY 06/13/18 Nattokinase 2 tab PO DAILY 06/13/18 Potassium-Derick 1 PO DAILY 06/13/18 Tuna 03 Oil 3 PO DAILY 06/13/18 Zn-Zyme 1 PO DAILY 06/13/18 Clopidogrel Bisulfate [Clopidogrel] 75 mg PO DAILY 09/08/18 traMADol [Ultram] 50 tablet PO PRN PRN 09/08/18 Aurum Metallicum 2 drp PO DAILY 02/13/19 Cbd Oil DAILY 02/13/19 Sibling Family History: Cancer Maternal Family History: Diabetes, Heart Disease, Hypertension, Stroke Paternal Family History: Diabetes, Heart Disease, Pulmonary Disease Lives: Spouse/ Significant Other Smoking Status: Never smoker Tobacco Use: Non-smoker Alcohol: None Drugs: None Physical Exam Vital Signs Temp Pulse Resp BP 97.7 F L 90 18 130/68 H 10/22/19 11:00 10/22/19 11:00 10/22/19 11:00 10/22/19 11:00 General: Alert, Oriented x3, Cooperative, No apparent distress HEENT: Atraumatic, Normocephalic Lungs: Normal air movement Psych/Mental Status: Normal Affect Assessment/Plan Active Problems Type 2 diabetes, uncontrolled, with ulcer of heel (Chronic) right plantar heel PAD (peripheral artery disease) (Chronic) Cellulitis and abscess of foot (Chronic) Type 2 diabetes, controlled, with ulcer of heel (Chronic) Non-healing open wound of heel (Chronic) Type II diabetes mellitus (Chronic) Valdez grade 3 The patient appears to be tolerating hyperbaric oxygen therapy well, which will be continued per his medical treatment plan. [employer] Supervision
[2019-10-22 12:55] LABS: Bedside Glucose 124 mg/dL (70-110)
[2019-10-22 14:06] VITALS: BP 130/68; BP 144/82; PULSE 74; PULSE 90; RESP 18; TEMP 36.5; TEMP 36.7
[2019-10-23 11:00] LABS: Bedside Glucose 176 mg/dL (70-110)
[2019-10-23 12:56] LABS: Bedside Glucose 129 mg/dL (70-110)
[2019-10-23 13:24] VITALS: BP 131/80; PULSE 83; RESP 18; TEMP 36.3; BMI 24.9
[2019-10-23 15:57] VITALS: BP 131/80; BP 151/76; PULSE 83; PULSE 89; RESP 18; TEMP 36.3
--- NOTE | 2019-10-23 17:30 | PCM.HBO.PN ---
History of Present Illness Date of Service: 10/23/19 Presenting Chief Complaint: Nonhealing ulcer right heel, Valdez Grade 3 diabetic ulcer. TRAM RIVERA is a 69 year old currently undergoing hyperbaric oxygen therapy for Valdez Grade 3 diabetic foot ulcer of his right heel. Progress: Today is the 52nd treatment of hyperbaric oxygen therapy. He is scheduled for 60 treatments total. Tolerance of hyperbaric oxygen therapy: Hyperbaric oxygen treatment was provided as per the facility's protocol at 2.0 ANA in 100% oxygen for 90 minutes without air breaks. The patient tolerated hyperbaric oxygen well, without complications or complaints. Upon emergence of the hyperbaric chamber, the patient's vital signs remained stable. Pre-and post blood glucose levels are as documented in nursing notes. Pre-treatment BS 176 post-treatment BS 129 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) Diabetes with ulcer of toe (Chronic) PAD (peripheral artery disease) (Chronic) Cellulitis and abscess of foot (Chronic) Type 2 diabetes, controlled, with ulcer of heel (Chronic) Non-healing open wound of heel (Chronic) Hyperlipidemia (Chronic) Peripheral vascular disease (Chronic) Hypertension (Chronic) Coronary artery disease (Chronic) Status post CABG Type II diabetes mellitus (Chronic) Valdez grade 3 Allergies/Adverse Reactions: Allergies rivaroxaban [From Xarelto] Allergy (Verified 02/13/19 16:41) Other Home Medications: Ambulatory Orders Medication Instructions Recorded #17 3 tab PO DAILY 06/13/18 Aspirin [Lite Coat Aspirin] 325 mg PO DAILY 06/13/18 [id number] 1 PO DAILY 06/13/18 Calcium Lactate 1 PO DAILY 06/13/18 Cat C 2 PO DAILY 06/13/18 Cat E2 8 PO DAILY 06/13/18 Cholecalciferol (Vitamin D3) 5,000 mg PO DAILY 06/13/18 [Vitamin D3] Colon Clear 1 tab PO PRN PRN 06/13/18 Inositol 2 PO PRN PRN 06/13/18 Intestinal Cleanse No 1 3 tab PO PRN PRN 06/13/18 Koncentrated K 1 tab PO DAILY 06/13/18 Mag Lactate 1 PO DAILY 06/13/18 Nattokinase 2 tab PO DAILY 06/13/18 Potassium-Derick 1 PO DAILY 06/13/18 Tuna 03 Oil 3 PO DAILY 06/13/18 Zn-Zyme 1 PO DAILY 06/13/18 Clopidogrel Bisulfate [Clopidogrel] 75 mg PO DAILY 09/08/18 traMADol [Ultram] 50 tablet PO PRN PRN 09/08/18 Aurum Metallicum 2 drp PO DAILY 02/13/19 Cbd Oil DAILY 02/13/19 Sibling Family History: Cancer Maternal Family History: Diabetes, Heart Disease, Hypertension, Stroke Paternal Family History: Diabetes, Heart Disease, Pulmonary Disease Lives: Spouse/ Significant Other Smoking Status: Never smoker Tobacco Use: Non-smoker Alcohol: None Drugs: None Physical Exam Vital Signs Temp Pulse Resp BP 97.3 F L 89 18 151/76 H 10/23/19 15:57 10/23/19 15:57 10/23/19 15:57 10/23/19 15:57 General: Alert, Oriented x3, Cooperative, No apparent distress Psych/Mental Status: Normal Affect, Appropriate Assessment/Plan Active Problems Type 2 diabetes, uncontrolled, with ulcer of heel (Chronic) right plantar heel PAD (peripheral artery disease) (Chronic) Cellulitis and abscess of foot (Chronic) Type 2 diabetes, controlled, with ulcer of heel (Chronic) Non-healing open wound of heel (Chronic) Type II diabetes mellitus (Chronic) Valdez grade 3 The patient appears to be tolerating hyperbaric oxygen therapy well, which will be continued per his medical treatment plan.
--- NOTE | 2019-10-23 17:43 | PN.PCM_ITS ---
(1) Type 2 diabetes, uncontrolled, with ulcer of heel Status: Chronic Current Visit: Yes Code(s): E11.621 - Type 2 diabetes mellitus with foot ulcer; E11.65 - Type 2 diabetes mellitus with hyperglycemia; L97.409 - Non-pressure chronic ulcer of unspecified heel and midfoot with unspecified severity Comment: right plantar heel (2) PAD (peripheral artery disease) Status: Chronic Current Visit: Yes Code(s): I73.9 - Peripheral vascular disease, unspecified (3) Cellulitis and abscess of foot Status: Chronic Current Visit: Yes Code(s): L03.119 - Cellulitis of unspecified part of limb; L02.619 - Cutaneous abscess of unspecified foot (4) Type 2 diabetes, controlled, with ulcer of heel Status: Chronic Current Visit: Yes Code(s): E11.621 - Type 2 diabetes mellitus with foot ulcer; L97.409 - Non-pressure chronic ulcer of unspecified heel and midfoot with unspecified severity (5) Non-healing open wound of heel Status: Chronic Current Visit: Yes Qualifiers: Encounter type: subsequent encounter Laterality: right Qualified Code(s): S91.301D - Unspecified open wound, right foot, subsequent encounter Code(s): S91.309A - Unspecified open wound, unspecified foot, initial encounter (6) Type II diabetes mellitus Status: Chronic Current Visit: Yes Qualifiers: 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 History of Wound: Gibson is here for evaluation of an ulcer of his right heel. He was recently treated for this same area with [place]in application and was discharged approximately 8 weeks ago. 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 He has been applying Aquacel and gauze to the ulcer. He does follow with Dr. Navas regularly and had a bypass of his right SFA and popliteal arteries earlier this year. He has had procedures for his arterial disease in past to both of his lower extremities. He has tried alternative treatments with supplements and chelation therapy in the past. He also has diabetes and recent A1C was 7.2% He does wear diabetic shoes. He had been undergoing chelation treatments by Dr. German in [place]. He denies fever, chills, erythema or heavy drainage. He reports significant pain and discomfort of his right heel and his entire right leg which no one can explain. In March 2019, he was hospitalized due to occlusion of his bypass graft in his right leg and Dr. Navas was able to open it 50%. He also has blockages in his left leg. Dr. Navas is unable to revascularize either leg at this time and he may ultimately require limb amputation if his vascular disease worsens. Progress of Wound: Gibson is here to follow up for nonhealing ulcer of his right heel. He reports his pain is better this week. He had a snap vac placed on Saturday. He is improving with the combination of hyperbaric oxygen treatments and with the increase in negative pressure with the snap vac we will see increased improvement. There is a heavy amount of drainage but there has been no leakage through his dressings. Denies fever, chills, erythema. - Physical Exam Vital Signs Temp Pulse Resp BP 97.3 F L 89 18 151/76 H 10/23/19 15:57 10/23/19 15:57 10/23/19 15:57 10/23/19 15:57 General: Alert, Oriented x3, Cooperative, No apparent distress HEENT: Atraumatic, Normocephalic Oral: Moist Mucosa Abdomen: Soft, Non Tender Extremities: Edema Skin: Ulcer/ Wound Wound Measurements and Assessment WC - Nurse 1 - General Ulcer Measurement Start: 10/16/19 12:59 Freq: Status: Active Protocol: Activity Type Activity Date Activity User E-Sign Co-Sign Detail Recorded Client Recorded Date Recorded By Document 10/23/19 13:24 MW [id number] 10/23/19 13:41 MW 10/23/19 13:24 Wound Center Nurse 1 [Ulcer Assessment] #14- R HEEL -Combined with other wound No -Current Size (cm) - Length 1.5 -Current Size (cm) - Width 1.5 -Current Size (cm) - Depth 1.0 -Total Square Cm 2.25 -Date of Last Picture (Recall this 10/23/19 field) -Photo Taken Yes -Epithelialization None Present -Tunneling No -Undermining/Tunneling No -Circular Undermining No -Exudate Amt Large -Exudate Type Sanguineous -Wound Margin Distinct, Outline Attached -Granulation Amt Medium (34-66%) -Granulation Quality [place] -Slough/Fibrin Yes -Necrosis Amt Medium (34-66%) -Necrotic Tissue Type Adherent Slough -Structure Exposed N/A -Texture (Shahana-wound Skin Appearance) Assessed, Scarring -Moisture (Shahana-wound Skin Appearance Assessed, ) Maceration -Color (Shahana-wound Skin Appearance) No Abnormality, Assessed -Temperature (Shahana-wound Skin No Abnormality Appearance) (Pt Warm) -Tenderness on Palpation (Shahana-wound Yes Skin Appearance) -Ulcer Cleansing soap and water -Foul Odor after Cleansing No -Anesthetic Used 4% Lidocaine Solution,5% Lidocaine Gel [Edema Assessment] -Lower Limb Edema Present No WC - Nurse 2 - General Ulcer CM Notes Start: 10/16/19 12:59 Freq: Status: Active Protocol: Activity Type Activity Date Activity User E-Sign Co-Sign Detail Recorded Client Recorded Date Recorded By Document 10/23/19 14:07 DV [id number] 10/23/19 14:15 DV 10/23/19 14:07 Wound Center Nurse 2 [Procedure/Treatment] #14- R HEEL -Time 14:11 -Correct Patient Yes -Correct Side, Site, Position Yes -Correct Procedure Yes -Procedure Performed Yes -Type of Procedure Debridement -Clinical Debridement Subcutaneous -Post Debridement Size (cm) - Length 0.7 -Post Debridement Size (cm) - Width 0.8 -Post Debridement Size (cm) - Depth 0.7 -Total Square Cm 0.56 -Wound/Ulcer Outcome Not Healed -Ulcer Cleansing Rinsed/ Irrigated with Saline -Foul Odor after Cleansing No -Bioengineered Tissue No -Bleeding Controlled with Pressure -Offloading No -Type of Offloading Surgical Shoe -Treatment Response Procedure Tolerated Well [See Physician Procedure note for Specifics] Pain Scale: 0-10 Numeric [Pain] -Is Patient Pain Free? Yes Psych/Mental Status: Normal Affect, Appropriate Debridement Note Post-Debridement Measurements/Treatment WC - Nurse 2 - General Ulcer CM Notes Start: 10/16/19 12:59 Freq: Status: Active Protocol: Activity Type Activity Date Activity User E-Sign Co-Sign Detail Recorded Client Recorded Date Recorded By Document 10/16/19 13:46 DV [id number] 10/16/19 14:03 DV Document 10/23/19 14:07 DV [id number] 10/23/19 14:15 DV 10/16/19 10/23/19 13:46 14:07 Wound Center Nurse 2 #14- R HEEL -Time 13:46 14:11 -Correct Patient Yes Yes -Correct Side, Site, Position Yes Yes -Correct Procedure Yes Yes -Procedure Performed Yes Yes -Type of Procedure Debridement Debridement -Clinical Debridement Subcutaneous Subcutaneous -Post Debridement Size (cm) - Length 1.0 0.7 -Post Debridement Size (cm) - Width 1.3 0.8 -Post Debridement Size (cm) - Depth 0.5 0.7 -Total Square Cm 1.30 0.56 -Wound/Ulcer Outcome Not Healed Not Healed -Ulcer Cleansing Rinsed/ Rinsed/ Irrigated with Irrigated with Saline Saline -Foul Odor after Cleansing No No -Bioengineered Tissue No No -Bleeding Controlled with Pressure Pressure -Offloading Yes No -Type of Offloading Surgical Shoe Surgical Shoe -Treatment Response Procedure Procedure Tolerated Well Tolerated Well Pain Scale: 0-10 Numeric Is Patient Pain Free? Yes Yes Wound debrided: right heel Laterality: Right Wound Grade/Stage: Valdez grade 3 Type of Debridement: Excisional debridement Anesthesia Used: 4% Lidocaine Solution, 5% Lidocaine Gel, Cetacaine - lidocaine 2% 5 ml Depth: Down to and including healthy tissue, in the subcutaneous layer, to muscle Percentage of wound debrided: 100 Instrument Used: 5mm curette Tissue Removed: yellow slough, devitalized tissue Severity: Fat Layer Exposed Amount of bleeding with debridement: Mild Bleeding Controlled with: Compression and gauze Patient tolerated procedure well Assessment/Plan Active Problems Type 2 diabetes, uncontrolled, with ulcer of heel (Chronic) right plantar heel PAD (peripheral artery disease) (Chronic) Cellulitis and abscess of foot (Chronic) Type 2 diabetes, controlled, with ulcer of heel (Chronic) Non-healing open wound of heel (Chronic) Type II diabetes mellitus (Chronic) Valdez grade 3 Assessment: 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 Diabetes mellitus - controlled. Peripheral vascular disease - status post revascularization 08/07/18 and 03/2019 Plan: Gibson's ulcer was evaluated and debrided today with definitive improvement in his ulcer compared to last week and has had significant drainage from his snap vac. Will have snap vac changed on Saturday. He is tolerating HBO treatment and without this treatment I do not feel he would achieve progress in healing his ulcer. He has had 52 of 60 HBO treatments as of today October 23, 2019. It is medically necessary that he continue with hyperbaric oxygen treatments to salvage his limb and I have recommended extending his planned 60 treatments for 20 additional treatments. If this is approved and completed, the plan is for him to undergo 80 total treatments. Ulcer will be dressed with a SNAP vac with white gauze packed into the undermining/tunnel and changed on Saturday. If there continues to be maceration then we will need to proceed with KCI wound vac to increase the negative pressure to 150 mm Hg. He will continue to use the surgical shoe for offloading. He will continue to benefit from hyperbaric oxygen treatment to help heal his wound and salvage his limb from amputation given his comorbid arterial disease and DFU. Oxycodone 5 mg #45 were prescribed for treatment of pain with debridements on 10/16/2019. OARRS was appropriate. No signs of diversion or abuse. Encouraged to call with any increase in pain or drainage, fever or chills. He will benefit from hyperbaric oxygen treatment as well as wound vac treatment to heal his ulcer and manage the moderate to heavy drainage that is coming from ulcer. F/U in 1 week.
[2019-10-26 10:45] LABS: Bedside Glucose 168 mg/dL (70-110)
[2019-10-26 11:01] VITALS: BP 147/77; PULSE 79; RESP 18; TEMP 36.7
[2019-10-26 13:01] LABS: Bedside Glucose 123 mg/dL (70-110)
--- NOTE | 2019-10-26 13:10 | PCM.HBO.PN ---
History of Present Illness Date of Service: 10/26/19 Presenting Chief Complaint: Nonhealing ulcer right heel, Valdez Grade 3 diabetic ulcer. TRAM RIVERA is a 69 year old currently undergoing hyperbaric oxygen therapy for Valdez Grade 3 diabetic foot ulcer of his right heel. Progress: Today is the 53rd treatment of hyperbaric oxygen therapy. He is scheduled for 60 treatments total. Tolerance of hyperbaric oxygen therapy: Hyperbaric oxygen treatment was provided as per the facility's protocol at 2.0 ANA in 100% oxygen for 90 minutes without air breaks. The patient tolerated hyperbaric oxygen well, without complications or complaints. Upon emergence of the hyperbaric chamber, the patient's vital signs remained stable. Pre-and post blood glucose levels are as documented in nursing notes. 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) Diabetes with ulcer of toe (Chronic) PAD (peripheral artery disease) (Chronic) Cellulitis and abscess of foot (Chronic) Type 2 diabetes, controlled, with ulcer of heel (Chronic) Non-healing open wound of heel (Chronic) Hyperlipidemia (Chronic) Peripheral vascular disease (Chronic) Hypertension (Chronic) Coronary artery disease (Chronic) Status post CABG Type II diabetes mellitus (Chronic) Valdez grade 3 Allergies/Adverse Reactions: Allergies rivaroxaban [From Xarelto] Allergy (Verified 02/13/19 16:41) Other Home Medications: Ambulatory Orders Medication Instructions Recorded #17 3 tab PO DAILY 06/13/18 Aspirin [Lite Coat Aspirin] 325 mg PO DAILY 06/13/18 [id number] 1 PO DAILY 06/13/18 Calcium Lactate 1 PO DAILY 06/13/18 Cat C 2 PO DAILY 06/13/18 Cat E2 8 PO DAILY 06/13/18 Cholecalciferol (Vitamin D3) 5,000 mg PO DAILY 06/13/18 [Vitamin D3] Colon Clear 1 tab PO PRN PRN 06/13/18 Inositol 2 PO PRN PRN 06/13/18 Intestinal Cleanse No 1 3 tab PO PRN PRN 06/13/18 Koncentrated K 1 tab PO DAILY 06/13/18 Mag Lactate 1 PO DAILY 06/13/18 Nattokinase 2 tab PO DAILY 06/13/18 Potassium-Derick 1 PO DAILY 06/13/18 Tuna 03 Oil 3 PO DAILY 06/13/18 Zn-Zyme 1 PO DAILY 06/13/18 Clopidogrel Bisulfate [Clopidogrel] 75 mg PO DAILY 09/08/18 traMADol [Ultram] 50 tablet PO PRN PRN 09/08/18 Aurum Metallicum 2 drp PO DAILY 02/13/19 Cbd Oil DAILY 02/13/19 Sibling Family History: Cancer Maternal Family History: Diabetes, Heart Disease, Hypertension, Stroke Paternal Family History: Diabetes, Heart Disease, Pulmonary Disease Lives: Spouse/ Significant Other Smoking Status: Never smoker Tobacco Use: Non-smoker Alcohol: None Drugs: None Physical Exam Vital Signs Temp Pulse Resp BP 98.0 F 79 18 147/77 H 10/26/19 11:01 10/26/19 11:01 10/26/19 11:01 10/26/19 11:01 General: Alert, Oriented x3, Cooperative HEENT: Atraumatic, TM's Clear Lungs: Clear to auscultation, Normal air movement Cardiovascular: Regular rate, Regular Rhythm Psych/Mental Status: Normal Affect, Appropriate Assessment/Plan Active Problems Type 2 diabetes, uncontrolled, with ulcer of heel (Chronic) right plantar heel PAD (peripheral artery disease) (Chronic) Cellulitis and abscess of foot (Chronic) Type 2 diabetes, controlled, with ulcer of heel (Chronic) Non-healing open wound of heel (Chronic) Type II diabetes mellitus (Chronic) Valdez grade 3 The patient appears to be tolerating hyperbaric oxygen therapy well, which will be continued per his medical treatment plan [id number]
[2019-10-27 08:52] VITALS: BP 141/83; BP 147/77; PULSE 75; PULSE 79; RESP 18; TEMP 36.7; TEMP 36.8
[2019-10-27 10:50] LABS: Bedside Glucose 150 mg/dL (70-110)
[2019-10-27 12:45] LABS: Bedside Glucose 116 mg/dL (70-110)
[2019-10-27 12:53] VITALS: BP 131/76; BP 156/75; PULSE 73; PULSE 77; RESP 18; TEMP 36.2; TEMP 36.6
--- NOTE | 2019-10-27 13:13 | PCM.HBO.PN ---
History of Present Illness Date of Service: 10/27/19 Presenting Chief Complaint: Nonhealing ulcer right heel, Valdez Grade 3 diabetic ulcer. TRAM RIVERA is a 69 year old currently undergoing hyperbaric oxygen therapy for Valdez Grade 3 diabetic foot ulcer of his right heel. Progress: Today is the 54th treatment of hyperbaric oxygen therapy. He is scheduled for 60 treatments total. Tolerance of hyperbaric oxygen therapy: Hyperbaric oxygen treatment was provided as per the facility's protocol at 2.0 ANA in 100% oxygen for 90 minutes without air breaks. The patient tolerated hyperbaric oxygen well, without complications or complaints. Upon emergence of the hyperbaric chamber, the patient's vital signs remained stable. Pre-and post blood glucose levels are as documented in nursing notes. Patient was discharged in good condition. 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) Diabetes with ulcer of toe (Chronic) PAD (peripheral artery disease) (Chronic) Cellulitis and abscess of foot (Chronic) Type 2 diabetes, controlled, with ulcer of heel (Chronic) Non-healing open wound of heel (Chronic) Hyperlipidemia (Chronic) Peripheral vascular disease (Chronic) Hypertension (Chronic) Coronary artery disease (Chronic) Status post CABG Type II diabetes mellitus (Chronic) Valdez grade 3 Allergies/Adverse Reactions: Allergies rivaroxaban [From Xarelto] Allergy (Verified 02/13/19 16:41) Other Home Medications: Ambulatory Orders Medication Instructions Recorded #17 3 tab PO DAILY 06/13/18 Aspirin [Lite Coat Aspirin] 325 mg PO DAILY 06/13/18 [id number] 1 PO DAILY 06/13/18 Calcium Lactate 1 PO DAILY 06/13/18 Cat C 2 PO DAILY 06/13/18 Cat E2 8 PO DAILY 06/13/18 Cholecalciferol (Vitamin D3) 5,000 mg PO DAILY 06/13/18 [Vitamin D3] Colon Clear 1 tab PO PRN PRN 06/13/18 Inositol 2 PO PRN PRN 06/13/18 Intestinal Cleanse No 1 3 tab PO PRN PRN 06/13/18 Koncentrated K 1 tab PO DAILY 06/13/18 Mag Lactate 1 PO DAILY 06/13/18 Nattokinase 2 tab PO DAILY 06/13/18 Potassium-Derick 1 PO DAILY 06/13/18 Tuna 03 Oil 3 PO DAILY 06/13/18 Zn-Zyme 1 PO DAILY 06/13/18 Clopidogrel Bisulfate [Clopidogrel] 75 mg PO DAILY 09/08/18 traMADol [Ultram] 50 tablet PO PRN PRN 09/08/18 Aurum Metallicum 2 drp PO DAILY 02/13/19 Cbd Oil DAILY 02/13/19 Sibling Family History: Cancer Maternal Family History: Diabetes, Heart Disease, Hypertension, Stroke Paternal Family History: Diabetes, Heart Disease, Pulmonary Disease Lives: Spouse/ Significant Other Smoking Status: Never smoker Tobacco Use: Non-smoker Alcohol: None Drugs: None Physical Exam Vital Signs Temp Pulse Resp BP 97.2 F L 77 18 156/75 H 10/27/19 12:53 10/27/19 12:53 10/27/19 12:53 10/27/19 12:53 General: Alert, Oriented x3, Cooperative, No apparent distress, Well developed, Well nourished HEENT: Atraumatic, PERRLA, EOMI, Normocephalic Lungs: Normal air movement Psych/Mental Status: Normal Affect, Appropriate, Alert and oriented to time, place, person, mood and affect Assessment/Plan Active Problems Type 2 diabetes, uncontrolled, with ulcer of heel (Chronic) right plantar heel PAD (peripheral artery disease) (Chronic) Cellulitis and abscess of foot (Chronic) Type 2 diabetes, controlled, with ulcer of heel (Chronic) Non-healing open wound of heel (Chronic) Type II diabetes mellitus (Chronic) Valdez grade 3 Patient appears to be tolerating hyperbaric oxygen therapy well, which will be continued as per the patient's medical treatment plan.
[2019-10-28 10:46] LABS: Bedside Glucose 158 mg/dL (70-110)
[2019-10-28 10:55] VITALS: BP 139/69; BP 145/83; PULSE 65; PULSE 75; RESP 16; RESP 18; TEMP 36.2; TEMP 36.7
--- NOTE | 2019-10-28 12:09 | PCM.HBO.PN ---
History of Present Illness Date of Service: 10/28/19 Presenting Chief Complaint: Nonhealing ulcer right heel, Valdez Grade 3 diabetic ulcer. TRAM RIVERA is a 69 year old currently undergoing hyperbaric oxygen therapy for Valdez Grade 3 diabetic foot ulcer of his right heel. Progress: Today is the 55th treatment of hyperbaric oxygen therapy. He is scheduled for 60 treatments total. Tolerance of hyperbaric oxygen therapy: Hyperbaric oxygen treatment was provided as per the facility's protocol at 2.0 ANA in 100% oxygen for 90 minutes without air breaks. The patient tolerated hyperbaric oxygen well, without complications or complaints. Upon emergence of the hyperbaric chamber, the patient's vital signs remained stable. Pre-and post blood glucose levels are as documented in nursing notes. Patient was discharged in good condition. 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) Diabetes with ulcer of toe (Chronic) PAD (peripheral artery disease) (Chronic) Cellulitis and abscess of foot (Chronic) Type 2 diabetes, controlled, with ulcer of heel (Chronic) Non-healing open wound of heel (Chronic) Hyperlipidemia (Chronic) Peripheral vascular disease (Chronic) Hypertension (Chronic) Coronary artery disease (Chronic) Status post CABG Type II diabetes mellitus (Chronic) Valdez grade 3 Allergies/Adverse Reactions: Allergies rivaroxaban [From Xarelto] Allergy (Verified 02/13/19 16:41) Other Home Medications: Ambulatory Orders Medication Instructions Recorded #17 3 tab PO DAILY 06/13/18 Aspirin [Lite Coat Aspirin] 325 mg PO DAILY 06/13/18 [id number] 1 PO DAILY 06/13/18 Calcium Lactate 1 PO DAILY 06/13/18 Cat C 2 PO DAILY 06/13/18 Cat E2 8 PO DAILY 06/13/18 Cholecalciferol (Vitamin D3) 5,000 mg PO DAILY 06/13/18 [Vitamin D3] Colon Clear 1 tab PO PRN PRN 06/13/18 Inositol 2 PO PRN PRN 06/13/18 Intestinal Cleanse No 1 3 tab PO PRN PRN 06/13/18 Koncentrated K 1 tab PO DAILY 06/13/18 Mag Lactate 1 PO DAILY 06/13/18 Nattokinase 2 tab PO DAILY 06/13/18 Potassium-Derick 1 PO DAILY 06/13/18 Tuna 03 Oil 3 PO DAILY 06/13/18 Zn-Zyme 1 PO DAILY 06/13/18 Clopidogrel Bisulfate [Clopidogrel] 75 mg PO DAILY 09/08/18 traMADol [Ultram] 50 tablet PO PRN PRN 09/08/18 Aurum Metallicum 2 drp PO DAILY 02/13/19 Cbd Oil DAILY 02/13/19 Sibling Family History: Cancer Maternal Family History: Diabetes, Heart Disease, Hypertension, Stroke Paternal Family History: Diabetes, Heart Disease, Pulmonary Disease Lives: Spouse/ Significant Other Smoking Status: Never smoker Tobacco Use: Non-smoker Alcohol: None Drugs: None Physical Exam Vital Signs Temp Pulse Resp BP 98.1 F 75 18 139/69 H 10/28/19 10:55 10/28/19 10:55 10/28/19 10:55 10/28/19 10:55 Assessment/Plan Active Problems Type 2 diabetes, uncontrolled, with ulcer of heel (Chronic) right plantar heel PAD (peripheral artery disease) (Chronic) Cellulitis and abscess of foot (Chronic) Type 2 diabetes, controlled, with ulcer of heel (Chronic) Non-healing open wound of heel (Chronic) Type II diabetes mellitus (Chronic) Valdez grade 3 Patient appears to be tolerating hyperbaric oxygen therapy well, which will be continued as per the patient's medical treatment plan.
[2019-10-28 12:55] LABS: Bedside Glucose 101 mg/dL (70-110)
[2019-10-29 10:46] LABS: Bedside Glucose 168 mg/dL (70-110)
--- NOTE | 2019-10-29 12:35 | PCM.HBO.PN ---
History of Present Illness Date of Service: 10/29/19 Presenting Chief Complaint: Nonhealing ulcer right heel, Valdez Grade 3 diabetic ulcer. TRAM RIVERA is a 69 year old currently undergoing hyperbaric oxygen therapy for Valdez Grade 3 diabetic foot ulcer of his right heel. Progress: Today is the 56th treatment of hyperbaric oxygen therapy. He is scheduled for 60 treatments total. Tolerance of hyperbaric oxygen therapy: Hyperbaric oxygen treatment was provided as per the facility's protocol at 2.0 ANA in 100% oxygen for 90 minutes without air breaks. The patient tolerated hyperbaric oxygen well, without complications or complaints. Upon emergence of the hyperbaric chamber, the patient's vital signs remained stable. Pre-and post blood glucose levels are as documented. Patient was discharged in good condition. 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) Diabetes with ulcer of toe (Chronic) PAD (peripheral artery disease) (Chronic) Cellulitis and abscess of foot (Chronic) Type 2 diabetes, controlled, with ulcer of heel (Chronic) Non-healing open wound of heel (Chronic) Hyperlipidemia (Chronic) Peripheral vascular disease (Chronic) Hypertension (Chronic) Coronary artery disease (Chronic) Status post CABG Type II diabetes mellitus (Chronic) Valdez grade 3 Allergies/Adverse Reactions: Allergies rivaroxaban [From Xarelto] Allergy (Verified 02/13/19 16:41) Other Home Medications: Ambulatory Orders Medication Instructions Recorded #17 3 tab PO DAILY 06/13/18 Aspirin [Lite Coat Aspirin] 325 mg PO DAILY 06/13/18 [id number] 1 PO DAILY 06/13/18 Calcium Lactate 1 PO DAILY 06/13/18 Cat C 2 PO DAILY 06/13/18 Cat E2 8 PO DAILY 06/13/18 Cholecalciferol (Vitamin D3) 5,000 mg PO DAILY 06/13/18 [Vitamin D3] Colon Clear 1 tab PO PRN PRN 06/13/18 Inositol 2 PO PRN PRN 06/13/18 Intestinal Cleanse No 1 3 tab PO PRN PRN 06/13/18 Koncentrated K 1 tab PO DAILY 06/13/18 Mag Lactate 1 PO DAILY 06/13/18 Nattokinase 2 tab PO DAILY 06/13/18 Potassium-Derick 1 PO DAILY 06/13/18 Tuna 03 Oil 3 PO DAILY 06/13/18 Zn-Zyme 1 PO DAILY 06/13/18 Clopidogrel Bisulfate [Clopidogrel] 75 mg PO DAILY 09/08/18 traMADol [Ultram] 50 tablet PO PRN PRN 09/08/18 Aurum Metallicum 2 drp PO DAILY 02/13/19 Cbd Oil DAILY 02/13/19 Sibling Family History: Cancer Maternal Family History: Diabetes, Heart Disease, Hypertension, Stroke Paternal Family History: Diabetes, Heart Disease, Pulmonary Disease Lives: Spouse/ Significant Other Smoking Status: Never smoker Tobacco Use: Non-smoker Alcohol: None Drugs: None Physical Exam Vital Signs Temp Pulse Resp BP 98.1 F 75 18 139/69 H 10/28/19 10:55 10/28/19 10:55 10/28/19 10:55 10/28/19 10:55 General: Alert, Oriented x3, Cooperative, No apparent distress HEENT: Atraumatic, Normocephalic Assessment/Plan Active Problems Type 2 diabetes, uncontrolled, with ulcer of heel (Chronic) right plantar heel PAD (peripheral artery disease) (Chronic) Cellulitis and abscess of foot (Chronic) Type 2 diabetes, controlled, with ulcer of heel (Chronic) Non-healing open wound of heel (Chronic) Type II diabetes mellitus (Chronic) Valdez grade 3 Patient appears to be tolerating hyperbaric oxygen therapy well, which will be continued as per the patient's medical treatment plan. HBO Supervision
[2019-10-29 12:46] LABS: Bedside Glucose 107 mg/dL (70-110)
[2019-10-29 14:23] VITALS: BP 143/77; BP 146/69; PULSE 67; PULSE 72; RESP 16; RESP 18; TEMP 36.2; TEMP 36.4
[2019-10-30 10:31] LABS: Bedside Glucose 154 mg/dL (70-110)
[2019-10-30 13:26] LABS: Bedside Glucose 99 mg/dL (70-110)
[2019-10-30 14:04] VITALS: BP 134/74; PULSE 74; RESP 16; TEMP 36.1; BMI 24.9
[2019-10-30 14:09] VITALS: BP 134/74; BP 139/68; PULSE 74; PULSE 77; RESP 16; RESP 18; TEMP 36.1; TEMP 36.7
--- NOTE | 2019-10-30 17:46 | PCM.HBO.PN ---
History of Present Illness Date of Service: 10/30/19 Presenting Chief Complaint: Nonhealing ulcer right heel, Valdez Grade 3 diabetic ulcer. TRAM RIVERA is a 69 year old currently undergoing hyperbaric oxygen therapy for Valdez Grade 3 diabetic foot ulcer of his right heel. Progress: Today is the 57th treatment of hyperbaric oxygen therapy. He is scheduled for 60 treatments total. Tolerance of hyperbaric oxygen therapy: Hyperbaric oxygen treatment was provided as per the facility's protocol at 2.0 ANA in 100% oxygen for 90 minutes without air breaks. The patient tolerated hyperbaric oxygen well, without complications or complaints. Upon emergence of the hyperbaric chamber, the patient's vital signs remained stable. Pre-and post blood glucose levels are as documented. Patient was discharged in good condition. 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) Diabetes with ulcer of toe (Chronic) PAD (peripheral artery disease) (Chronic) Cellulitis and abscess of foot (Chronic) Type 2 diabetes, controlled, with ulcer of heel (Chronic) Non-healing open wound of heel (Chronic) Hyperlipidemia (Chronic) Peripheral vascular disease (Chronic) Hypertension (Chronic) Coronary artery disease (Chronic) Status post CABG Type II diabetes mellitus (Chronic) Valdez grade 3 Allergies/Adverse Reactions: Allergies rivaroxaban [From Xarelto] Allergy (Verified 02/13/19 16:41) Other Home Medications: Ambulatory Orders Medication Instructions Recorded #17 3 tab PO DAILY 06/13/18 Aspirin [Lite Coat Aspirin] 325 mg PO DAILY 06/13/18 [id number] 1 PO DAILY 06/13/18 Calcium Lactate 1 PO DAILY 06/13/18 Cat C 2 PO DAILY 06/13/18 Cat E2 8 PO DAILY 06/13/18 Cholecalciferol (Vitamin D3) 5,000 mg PO DAILY 06/13/18 [Vitamin D3] Colon Clear 1 tab PO PRN PRN 06/13/18 Inositol 2 PO PRN PRN 06/13/18 Intestinal Cleanse No 1 3 tab PO PRN PRN 06/13/18 Koncentrated K 1 tab PO DAILY 06/13/18 Mag Lactate 1 PO DAILY 06/13/18 Nattokinase 2 tab PO DAILY 06/13/18 Potassium-Derick 1 PO DAILY 06/13/18 Tuna 03 Oil 3 PO DAILY 06/13/18 Zn-Zyme 1 PO DAILY 06/13/18 Clopidogrel Bisulfate [Clopidogrel] 75 mg PO DAILY 09/08/18 traMADol [Ultram] 50 tablet PO PRN PRN 09/08/18 Aurum Metallicum 2 drp PO DAILY 02/13/19 Cbd Oil DAILY 02/13/19 Sibling Family History: Cancer Maternal Family History: Diabetes, Heart Disease, Hypertension, Stroke Paternal Family History: Diabetes, Heart Disease, Pulmonary Disease Lives: Spouse/ Significant Other Smoking Status: Never smoker Tobacco Use: Non-smoker Alcohol: None Drugs: None Physical Exam Vital Signs Temp Pulse Resp BP 98.1 F 77 18 139/68 H 10/30/19 14:09 10/30/19 14:09 10/30/19 14:09 10/30/19 14:09 General: Alert, Oriented x3, Cooperative, No apparent distress Psych/Mental Status: Normal Affect, Appropriate Assessment/Plan Active Problems Type 2 diabetes, uncontrolled, with ulcer of heel (Chronic) right plantar heel PAD (peripheral artery disease) (Chronic) Cellulitis and abscess of foot (Chronic) Type 2 diabetes, controlled, with ulcer of heel (Chronic) Non-healing open wound of heel (Chronic) Type II diabetes mellitus (Chronic) Valdez grade 3 Patient appears to be tolerating hyperbaric oxygen therapy well, which will be continued as per the patient's medical treatment plan.
--- NOTE | 2019-10-30 18:01 | PN.PCM_ITS ---
(1) Type 2 diabetes, uncontrolled, with ulcer of heel Status: Chronic Current Visit: Yes Code(s): E11.621 - Type 2 diabetes mellitus with foot ulcer; E11.65 - Type 2 diabetes mellitus with hyperglycemia; L97.409 - Non-pressure chronic ulcer of unspecified heel and midfoot with unspecified severity Comment: right plantar heel (2) PAD (peripheral artery disease) Status: Chronic Current Visit: Yes Code(s): I73.9 - Peripheral vascular disease, unspecified (3) Cellulitis and abscess of foot Status: Chronic Current Visit: Yes Code(s): L03.119 - Cellulitis of unspecified part of limb; L02.619 - Cutaneous abscess of unspecified foot (4) Type 2 diabetes, controlled, with ulcer of heel Status: Chronic Current Visit: Yes Code(s): E11.621 - Type 2 diabetes mellitus with foot ulcer; L97.409 - Non-pressure chronic ulcer of unspecified heel and midfoot with unspecified severity (5) Non-healing open wound of heel Status: Chronic Current Visit: Yes Qualifiers: Encounter type: subsequent encounter Laterality: right Qualified Code(s): S91.301D - Unspecified open wound, right foot, subsequent encounter Code(s): S91.309A - Unspecified open wound, unspecified foot, initial encounter (6) Type II diabetes mellitus Status: Chronic Current Visit: Yes Qualifiers: 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 History of Wound: Gibson is here for evaluation of an ulcer of his right heel. He was recently treated for this same area with Theraskin application and was discharged approximately 8 weeks ago. He has noticed increased pain in his heel for the last 2 weeks and last his noted that the area had opened after his biometric screener had debrided some callus from the area. He has been applying Aquacel and gauze to the ulcer. He does follow with Dr. Navas regularly and had a bypass of his right SFA and popliteal arteries earlier this year. He has had procedures for his arterial disease in past to both of his lower extremities. He has tried alternative treatments with supplements and chelation therapy in the past. He also has diabetes and recent A1C was 7.2% He does wear diabetic shoes. He had been undergoing chelation treatments by Dr. German in [place]. He denies fever, chills, erythema or heavy drainage. He reports significant pain and discomfort of his right heel and his entire right leg which no one can explain. In March 2019, he was hospitalized due to occlusion of his bypass graft in his right leg and Dr. Navas was able to open it 50%. He also has blockages in his left leg. Dr. Navas is unable to revascularize either leg at this time and he may ultimately require limb amputation if his vascular disease worsens. Progress of Wound: Gibson is here to follow up for nonhealing ulcer of his right heel. He reports his pain is about the same this week. He is tolerating the snap vac but notes that there has been less drainage into the dressing this week compared to last week. Nursing also notes some maceration when the vac was changed on Saturday. Overall, he is improving with the combination of hyperbaric oxygen treatments and negative pressure treatment although this may be even more significant if negative pressure treatment with a traditional wound vac were initiated due to the location of his wound on his plantar surface of his foot and potential for inconsistent negative pressure. Denies fever, chills, erythema. - Physical Exam Vital Signs Temp Pulse Resp BP 98.1 F 77 18 139/68 H 10/30/19 14:09 10/30/19 14:09 10/30/19 14:10/30/19 14:09 General: Alert, Oriented x3, Cooperative, No apparent distress HEENT: Atraumatic, Normocephalic Oral: Dry Mucosa Extremities: No edema, Diminished Peripheral Pulses Skin: Ulcer/ Wound Wound Measurements and Assessment WC - Nurse 1 - General Ulcer Measurement Start: 10/16/19 12:59 Freq: Status: Active Protocol: Activity Type Activity Date Activity User E-Sign Co-Sign Detail Recorded Client Recorded Date Recorded By Document 10/30/19 14:04 [address] [id number] 10/30/19 14:18 PL 10/30/19 14:04 Wound Center Nurse 1 [Ulcer Assessment] #14- R HEEL -Current Size (cm) - Length 1.0 -Current Size (cm) - Width 1.0 -Current Size (cm) - Depth 0.4 -Total Square Cm 1.00 -Photo Taken No -Tunneling Yes -Tunneling Position (O'clock) 7 -Tunneling Distance (cm) 1.3 -Texture (Shahana-wound Skin Appearance) Callus -Moisture (Shahana-wound Skin Appearance Maceration ) -Temperature (Shahana-wound Skin No Abnormality Appearance) (Pt Warm) -Tenderness on Palpation (Shahana-wound Yes Skin Appearance) -Ulcer Cleansing Soap and water -Foul Odor after Cleansing No -Anesthetic Used 5% Lidocaine Gel WC - Nurse 2 - General Ulcer CM Notes Start: 10/16/19 12:59 Freq: Status: Active Protocol: Activity Type Activity Date Activity User E-Sign Co-Sign Detail Recorded Client Recorded Date Recorded By Document 10/30/19 15:53 DV [id number] 10/30/19 15:57 DV 10/30/19 15:53 Wound Center Nurse 2 [Procedure/Treatment] -Time 15:54 -Correct Patient Yes -Correct Side, Site, Position Yes -Correct Procedure Yes -Procedure Performed Yes -Type of Procedure Debridement -Clinical Debridement Subcutaneous -Post Debridement Size (cm) - Length 1.1 -Post Debridement Size (cm) - Width 1.1 -Post Debridement Size (cm) - Depth 0.5 -Total Square Cm 1.21 -Wound/Ulcer Outcome Not Healed -Ulcer Cleansing Rinsed/ Irrigated with Saline -Foul Odor after Cleansing No -Bioengineered Tissue No -Bleeding Controlled with Pressure -Offloading No -Type of Offloading Surgical Shoe -Treatment Response Procedure Tolerated Well [See Physician Procedure note for Specifics] Pain Scale: 0-10 Numeric [Pain] -Is Patient Pain Free? Yes Psych/Mental Status: Normal Affect, Appropriate Debridement Note Post-Debridement Measurements/Treatment WC - Nurse 2 - General Ulcer CM Notes Start: 10/16/19 12:59 Freq: Status: Active Protocol: Activity Type Activity Date Activity User E-Sign Co-Sign Detail Recorded Client Recorded Date Recorded By Document 10/16/19 13:46 DV [id number] 10/16/19 14:03 DV Document 10/23/19 14:07 DV [id number] 10/23/19 14:15 DV Document 10/30/19 15:53 DV [id number] 10/30/19 15:57 DV 10/16/19 10/23/19 10/30/19 13:46 14:07 15:53 Wound Center Nurse 2 #14- R HEEL -Time 13:46 14:11 15:54 -Correct Patient Yes Yes Yes -Correct Side, Site, Position Yes Yes Yes -Correct Procedure Yes Yes Yes -Procedure Performed Yes Yes Yes -Type of Procedure Debridement Debridement Debridement -Clinical Debridement Subcutaneous Subcutaneous Subcutaneous -Post Debridement Size (cm) - Length 1.0 0.7 1.1 -Post Debridement Size (cm) - Width 1.3 0.8 1.1 -Post Debridement Size (cm) - Depth 0.5 0.7 0.5 -Total Square Cm 1.30 0.56 1.21 -Wound/Ulcer Outcome Not Healed Not Healed Not Healed -Ulcer Cleansing Rinsed/ Rinsed/ Rinsed/ Irrigated with Irrigated with Irrigated with Saline Saline Saline -Foul Odor after Cleansing No No No -Bioengineered Tissue No No No -Bleeding Controlled with Pressure Pressure Pressure -Offloading Yes No No -Type of Offloading Surgical Shoe Surgical Shoe Surgical Shoe -Treatment Response Procedure Procedure Procedure Tolerated Well Tolerated Well Tolerated Well Pain Scale: 0-10 Numeric Is Patient Pain Free? Yes Yes Yes Wound debrided: right heel Laterality: Right Wound Grade/Stage: Valdez grade 3 Type of Debridement: Excisional debridement Anesthesia Used: 4% Lidocaine Solution, 5% Lidocaine Gel, Cetacaine - 5 ml lidocaine 2% Depth: Down to and including healthy tissue, in the subcutaneous layer, to muscle Percentage of wound debrided: 100 Instrument Used: #15 blade, Forceps Tissue Removed: yellow slough, devitalized tissue Severity: Fat Layer Exposed Amount of bleeding with debridement: Moderate Bleeding Controlled with: Compression and gauze Patient tolerated procedure well Assessment/Plan Active Problems Type 2 diabetes, uncontrolled, with ulcer of heel (Chronic) right plantar heel PAD (peripheral artery disease) (Chronic) Cellulitis and abscess of foot (Chronic) Type 2 diabetes, controlled, with ulcer of heel (Chronic) Non-healing open wound of heel (Chronic) Type II diabetes mellitus (Chronic) Valdez grade 3 Assessment: 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 Diabetes mellitus - controlled. Peripheral vascular disease - status post revascularization 08/07/18 and 03/2019 Plan: Gibson's ulcer was evaluated and debrided today with less significant improvement from last week. I feel that he would benefit from continuous negative pressure therapy as provided by a traditional wound vac as opposed to the snap vac that he is currently using. He had significant improvement initially with snap vac but it has been variable and I feel that it is likely because of the lack of continuous negative pressure and possibly he would benefit from a higher negative pressure treatment that is not possible with snap vac but would be with continuous negative pressure wound vac. He is agreeable to trying this dressing. He is tolerating HBO treatment and without this treatment I do not feel he would achieve progress in healing his ulcer. He has had 58 of 60 ordered HBO treatments as of today October 30, 2019. I feel that it is medically necessary that he continue with hyperbaric oxygen treatments to salvage his limb and I recommend extending his planned 60 treatments for 30 additional treatments for a total of 90 treatments since initiating hyperbaric oxygen therapy on 08/05/2019. If this is approved and completed, the plan is for him to undergo 90 total treatments. Ulcer will be dressed with a SNAP vac with white gauze packed into the undermining/tunnel and changed to continuous negative pressure vac when this becomes available at the setting of 150 mm Hg pressure. He will continue to use the surgical shoe for offloading. He will continue to benefit from hyperbaric oxygen treatment to help heal his wound and salvage his limb from amputation given his comorbid arterial disease and DFU. Oxycodone 5 mg #45 were prescribed for treatment of pain with debridements on 10/30/2019. OARRS was appropriate. No signs of diversion or abuse. Encouraged to call with any increase in pain or drainage, fever or chills. He will benefit from hyperbaric oxygen treatment as well as wound vac treatment to heal his ulcer and manage the moderate to heavy drainage that is coming from ulcer. F/U in 1 week.
[2019-11-02 10:31] LABS: Bedside Glucose 188 mg/dL (70-110)
[2019-11-02 10:46] VITALS: BP 128/72; BP 132/67; PULSE 80; PULSE 81; RESP 16; RESP 18; TEMP 36.2; TEMP 36.6
[2019-11-02 12:45] LABS: Bedside Glucose 133 mg/dL (70-110)
--- NOTE | 2019-11-02 18:02 | HBO.PN.PCM_ITS ---
History of Present Illness Date of Service: 11/02/19 Presenting Chief Complaint: Nonhealing ulcer right heel, Valdez Grade 3 diabetic ulcer. TRAM RIVERA is a 69 year old currently undergoing hyperbaric oxygen therapy for Valdez Grade 3 diabetic foot ulcer of his right heel. Progress: Today represents a 58th treatment of hyperbaric oxygen therapy. He is scheduled for 80 treatments. Tolerance of hyperbaric oxygen therapy: Hyperbaric oxygen treatment was provided as per the facility's protocol at 2.0 ANA in 100% oxygen for 90 minutes without air breaks. The patient tolerated hyperbaric oxygen well, without complications or complaints. Upon emergence of the hyperbaric chamber, the patient's vital si gns remained stable. Blood glucose pre-treatment was 188. Blood glucose post- treatment was 133. He was discharged in good condition. 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) Diabetes with ulcer of toe (Chronic) PAD (peripheral artery disease) (Chronic) Cellulitis and abscess of foot (Chronic) Type 2 diabetes, controlled, with ulcer of heel (Chronic) Non-healing open wound of heel (Chronic) Hyperlipidemia (Chronic) Peripheral vascular disease (Chronic) Hypertension (Chronic) Coronary artery disease (Chronic) Status post CABG Type II diabetes mellitus (Chronic) Valdez grade 3 Allergies/Adverse Reactions: Allergies rivaroxaban [From Xarelto] Allergy (Verified 02/13/19 16:41) Other Home Medications: Ambulatory Orders Medication Instructions Recorded #17 3 tab PO DAILY 06/13/18 Aspirin [Lite Coat Aspirin] 325 mg PO DAILY 06/13/18 [id number] 1 PO DAILY 06/13/18 Calcium Lactate 1 PO DAILY 06/13/18 Cat C 2 PO DAILY 06/13/18 Cat E2 8 PO DAILY 06/13/18 Cholecalciferol (Vitamin D3) 5,000 mg PO DAILY 06/13/18 [Vitamin D3] Colon Clear 1 tab PO PRN PRN 06/13/18 Inositol 2 PO PRN PRN 06/13/18 Intestinal Cleanse No 1 3 tab PO PRN PRN 06/13/18 Koncentrated K 1 tab PO DAILY 06/13/18 Mag Lactate 1 PO DAILY 06/13/18 Nattokinase 2 tab PO DAILY 06/13/18 Potassium-Derick 1 PO DAILY 06/13/18 Tuna 03 Oil 3 PO DAILY 06/13/18 Zn-Zyme 1 PO DAILY 06/13/18 Clopidogrel Bisulfate [Clopidogrel] 75 mg PO DAILY 09/08/18 traMADol [Ultram] 50 tablet PO PRN PRN 09/08/18 Aurum Metallicum 2 drp PO DAILY 02/13/19 Cbd Oil DAILY 02/13/19 Sibling Family History: Cancer Maternal Family History: Diabetes, Heart Disease, Hypertension, Stroke Paternal Family History: Diabetes, Heart Disease, Pulmonary Disease Lives: Spouse/ Significant Other Smoking Status: Never smoker Tobacco Use: Non-smoker Alcohol: None Drugs: None Physical Exam Vital Signs Temp Pulse Resp BP 97.0 F L 75 16 135/76 H 11/03/19 11:53 11/03/19 11:53 11/03/19 11:53 11/03/19 11:53 Assessment/Plan Active Problems Type 2 diabetes, uncontrolled, with ulcer of heel (Chronic) right plantar heel PAD (peripheral artery disease) (Chronic) Cellulitis and abscess of foot (Chronic) Type 2 diabetes, controlled, with ulcer of heel (Chronic) Non-healing open wound of heel (Chronic) Type II diabetes mellitus (Chronic) Valdez grade 3 HBO Charges 98234 ICD-10 - E11.621, E11.9
[2019-11-03 10:30] LABS: Bedside Glucose 165 mg/dL (70-110)
[2019-11-03 11:53] VITALS: BP 135/76; BP 143/77; PULSE 68; PULSE 75; RESP 16; RESP 18; TEMP 36.1; TEMP 36.2
[2019-11-03 12:30] LABS: Bedside Glucose 109 mg/dL (70-110)
--- NOTE | 2019-11-03 13:50 | PCM.HBO.PN ---
History of Present Illness Date of Service: 11/03/19 Presenting Chief Complaint: Nonhealing ulcer right heel, Valdez Grade 3 diabetic ulcer. TRAM RIVERA is a 69 year old currently undergoing hyperbaric oxygen therapy for Valdez Grade 3 diabetic foot ulcer of his right heel. Progress: Today is the 59th treatment of hyperbaric oxygen therapy. He is scheduled for 80 treatments total. Tolerance of hyperbaric oxygen therapy: Hyperbaric oxygen treatment was provided as per the facility's protocol at 2.0 ANA in 100% oxygen for 90 minutes without air breaks. The patient tolerated hyperbaric oxygen well, without complications or complaints. Upon emergence of the hyperbaric chamber, the patient's vital signs remained stable. Pre-and post blood glucose levels are as documented. Patient was discharged in good condition. 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) Diabetes with ulcer of toe (Chronic) PAD (peripheral artery disease) (Chronic) Cellulitis and abscess of foot (Chronic) Type 2 diabetes, controlled, with ulcer of heel (Chronic) Non-healing open wound of heel (Chronic) Hyperlipidemia (Chronic) Peripheral vascular disease (Chronic) Hypertension (Chronic) Coronary artery disease (Chronic) Status post CABG Type II diabetes mellitus (Chronic) Valdez grade 3 Allergies/Adverse Reactions: Allergies rivaroxaban [From Xarelto] Allergy (Verified 02/13/19 16:41) Other Home Medications: Ambulatory Orders Medication Instructions Recorded #17 3 tab PO DAILY 06/13/18 Aspirin [Lite Coat Aspirin] 325 mg PO DAILY 06/13/18 [id number] 1 PO DAILY 06/13/18 Calcium Lactate 1 PO DAILY 06/13/18 Cat C 2 PO DAILY 06/13/18 Cat E2 8 PO DAILY 06/13/18 Cholecalciferol (Vitamin D3) 5,000 mg PO DAILY 06/13/18 [Vitamin D3] Colon Clear 1 tab PO PRN PRN 06/13/18 Inositol 2 PO PRN PRN 06/13/18 Intestinal Cleanse No 1 3 tab PO PRN PRN 06/13/18 Koncentrated K 1 tab PO DAILY 06/13/18 Mag Lactate 1 PO DAILY 06/13/18 Nattokinase 2 tab PO DAILY 06/13/18 Potassium-Derick 1 PO DAILY 06/13/18 Tuna 03 Oil 3 PO DAILY 06/13/18 Zn-Zyme 1 PO DAILY 06/13/18 Clopidogrel Bisulfate [Clopidogrel] 75 mg PO DAILY 09/08/18 traMADol [Ultram] 50 tablet PO PRN PRN 09/08/18 Aurum Metallicum 2 drp PO DAILY 02/13/19 Cbd Oil DAILY 02/13/19 Sibling Family History: Cancer Maternal Family History: Diabetes, Heart Disease, Hypertension, Stroke Paternal Family History: Diabetes, Heart Disease, Pulmonary Disease Lives: Spouse/ Significant Other Smoking Status: Never smoker Tobacco Use: Non-smoker Alcohol: None Drugs: None Physical Exam Vital Signs Temp Pulse Resp BP 97.0 F L 75 16 135/76 H 11/03/19 11:53 11/03/19 11:53 11/03/19 11:53 11/03/19 11:53 General: Alert, Oriented x3, Cooperative, No apparent distress, Well developed, Well nourished HEENT: Atraumatic, PERRLA, EOMI, Normocephalic Lungs: Normal air movement Psych/Mental Status: Normal Affect, Appropriate, Alert and oriented to time, place, person, mood and affect Assessment/Plan Active Problems Type 2 diabetes, uncontrolled, with ulcer of heel (Chronic) right plantar heel PAD (peripheral artery disease) (Chronic) Cellulitis and abscess of foot (Chronic) Type 2 diabetes, controlled, with ulcer of heel (Chronic) Non-healing open wound of heel (Chronic) Type II diabetes mellitus (Chronic) Valdez grade 3 The patient appears to be tolerating hyperbaric oxygen therapy well, which will be continued as per the patient's medical treatment plan.
[2019-11-04 10:36] LABS: Bedside Glucose 163 mg/dL (70-110)
[2019-11-04 10:59] VITALS: BP 152/77; BP 155/90; PULSE 74; PULSE 77; RESP 16; RESP 18; TEMP 36.3; TEMP 36.7
--- NOTE | 2019-11-04 12:23 | HBO.PN.PCM_ITS ---
History of Present Illness Date of Service: 11/04/19 Presenting Chief Complaint: Nonhealing ulcer right heel, Valdez Grade 3 diabetic ulcer. TRAM RIVERA is a 69 year old currently undergoing hyperbaric oxygen therapy for Valdez Grade 3 diabetic foot ulcer of his right heel. Progress: Today represents a 60th treatment of hyperbaric oxygen therapy. He is scheduled for 80 treatments. Tolerance of hyperbaric oxygen therapy: Hyperbaric oxygen treatment was provided as per the facility's protocol at 2.0 ANA in 100% oxygen for 90 minutes without air breaks. The patient tolerated hyperbaric oxygen well, without complications or complaints. Upon emergence of the hyperbaric chamber, the patient's vital si gns remained stable. Blood glucose pre-treatment was 188. Blood glucose post- treatment was 133. He was discharged in good condition. 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) Diabetes with ulcer of toe (Chronic) PAD (peripheral artery disease) (Chronic) Cellulitis and abscess of foot (Chronic) Type 2 diabetes, controlled, with ulcer of heel (Chronic) Non-healing open wound of heel (Chronic) Hyperlipidemia (Chronic) Peripheral vascular disease (Chronic) Hypertension (Chronic) Coronary artery disease (Chronic) Status post CABG Type II diabetes mellitus (Chronic) Valdez grade 3 Allergies/Adverse Reactions: Allergies rivaroxaban [From Xarelto] Allergy (Verified 02/13/19 16:41) Other Home Medications: Ambulatory Orders Medication Instructions Recorded #17 3 tab PO DAILY 06/13/18 Aspirin [Lite Coat Aspirin] 325 mg PO DAILY 06/13/18 [id number] 1 PO DAILY 06/13/18 Calcium Lactate 1 PO DAILY 06/13/18 Cat C 2 PO DAILY 06/13/18 Cat E2 8 PO DAILY 06/13/18 Cholecalciferol (Vitamin D3) 5,000 mg PO DAILY 06/13/18 [Vitamin D3] Colon Clear 1 tab PO PRN PRN 06/13/18 Inositol 2 PO PRN PRN 06/13/18 Intestinal Cleanse No 1 3 tab PO PRN PRN 06/13/18 Koncentrated K 1 tab PO DAILY 06/13/18 Mag Lactate 1 PO DAILY 06/13/18 Nattokinase 2 tab PO DAILY 06/13/18 Potassium-Derick 1 PO DAILY 06/13/18 Tuna 03 Oil 3 PO DAILY 06/13/18 Zn-Zyme 1 PO DAILY 06/13/18 Clopidogrel Bisulfate [Clopidogrel] 75 mg PO DAILY 09/08/18 traMADol [Ultram] 50 tablet PO PRN PRN 09/08/18 Aurum Metallicum 2 drp PO DAILY 02/13/19 Cbd Oil DAILY 02/13/19 Sibling Family History: Cancer Maternal Family History: Diabetes, Heart Disease, Hypertension, Stroke Paternal Family History: Diabetes, Heart Disease, Pulmonary Disease Lives: Spouse/ Significant Other Smoking Status: Never smoker Tobacco Use: Non-smoker Alcohol: None Drugs: None Physical Exam Vital Signs Temp Pulse Resp BP 98.0 F 77 18 152/77 H 11/04/19 10:59 11/04/19 10:59 11/04/19 10:59 11/04/19 10:59 Assessment/Plan Active Problems Type 2 diabetes, uncontrolled, with ulcer of heel (Chronic) right plantar heel PAD (peripheral artery disease) (Chronic) Cellulitis and abscess of foot (Chronic) Type 2 diabetes, controlled, with ulcer of heel (Chronic) Non-healing open wound of heel (Chronic) Type II diabetes mellitus (Chronic) Valdez grade 3 The patient appears to be tolerating hyperbaric oxygen therapy well, which will be continued as per the patient's medical treatment plan.
[2019-11-04 12:50] LABS: Bedside Glucose 97 mg/dL (70-110)
[2019-11-05 10:06] LABS: Bedside Glucose 140 mg/dL (70-110)
[2019-11-05 10:21] VITALS: BP 143/71; BP 145/84; PULSE 65; PULSE 76; RESP 16; RESP 18; TEMP 36.1; TEMP 36.2
--- NOTE | 2019-11-05 10:40 | HBO.PN.PCM_ITS ---
History of Present Illness Date of Service: 11/05/19 Presenting Chief Complaint: Nonhealing ulcer right heel, Valdez Grade 3 diabetic ulcer. TRAM RIVERA is a 69 year old currently undergoing hyperbaric oxygen therapy for Valdez Grade 3 diabetic foot ulcer of his right heel. Progress: Today represents a 61st treatment of hyperbaric oxygen therapy. He is scheduled for 80 treatments. Tolerance of hyperbaric oxygen therapy: Hyperbaric oxygen treatment was provided as per the facility's protocol at 2.0 ANA in 100% oxygen for 90 minutes without air breaks. The patient tolerated hyperbaric oxygen well, without complications or complaints. Upon emergence of the hyperbaric chamber, the patient's vital si gns remained stable. Pre-and post blood glucose levels as documented. He was discharged in good condition. 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) Diabetes with ulcer of toe (Chronic) PAD (peripheral artery disease) (Chronic) Cellulitis and abscess of foot (Chronic) Type 2 diabetes, controlled, with ulcer of heel (Chronic) Non-healing open wound of heel (Chronic) Hyperlipidemia (Chronic) Peripheral vascular disease (Chronic) Hypertension (Chronic) Coronary artery disease (Chronic) Status post CABG Type II diabetes mellitus (Chronic) Valdez grade 3 Allergies/Adverse Reactions: Allergies rivaroxaban [From Xarelto] Allergy (Verified 02/13/19 16:41) Other Home Medications: Ambulatory Orders Medication Instructions Recorded #17 3 tab PO DAILY 06/13/18 Aspirin [Lite Coat Aspirin] 325 mg PO DAILY 06/13/18 [id number] 1 PO DAILY 06/13/18 Calcium Lactate 1 PO DAILY 06/13/18 Cat C 2 PO DAILY 06/13/18 Cat E2 8 PO DAILY 06/13/18 Cholecalciferol (Vitamin D3) 5,000 mg PO DAILY 06/13/18 [Vitamin D3] Colon Clear 1 tab PO PRN PRN 06/13/18 Inositol 2 PO PRN PRN 06/13/18 Intestinal Cleanse No 1 3 tab PO PRN PRN 06/13/18 Koncentrated K 1 tab PO DAILY 06/13/18 Mag Lactate 1 PO DAILY 06/13/18 Nattokinase 2 tab PO DAILY 06/13/18 Potassium-Derick 1 PO DAILY 06/13/18 Tuna 03 Oil 3 PO DAILY 06/13/18 Zn-Zyme 1 PO DAILY 06/13/18 Clopidogrel Bisulfate [Clopidogrel] 75 mg PO DAILY 09/08/18 traMADol [Ultram] 50 tablet PO PRN PRN 09/08/18 Aurum Metallicum 2 drp PO DAILY 02/13/19 Cbd Oil DAILY 02/13/19 Sibling Family History: Cancer Maternal Family History: Diabetes, Heart Disease, Hypertension, Stroke Paternal Family History: Diabetes, Heart Disease, Pulmonary Disease Lives: Spouse/ Significant Other Smoking Status: Never smoker Tobacco Use: Non-smoker Alcohol: None Drugs: None Physical Exam Vital Signs Temp Pulse Resp BP 97.1 F L 76 18 143/71 H 11/05/19 10:21 11/05/19 10:21 11/05/19 10:21 11/05/19 10:21 General: Alert, Oriented x3, Cooperative, No apparent distress HEENT: Atraumatic, Normocephalic Lungs: Normal air movement Psych/Mental Status: Normal Affect Assessment/Plan Active Problems Type 2 diabetes, uncontrolled, with ulcer of heel (Chronic) right plantar heel PAD (peripheral artery disease) (Chronic) Cellulitis and abscess of foot (Chronic) Type 2 diabetes, controlled, with ulcer of heel (Chronic) Non-healing open wound of heel (Chronic) Type II diabetes mellitus (Chronic) Valdez grade 3 The patient appears to be tolerating hyperbaric oxygen therapy well, which will be continued as per the patient's medical treatment plan. HBO supervision
[2019-11-05 12:11] LABS: Bedside Glucose 88 mg/dL (70-110)
[2019-11-06 10:20] LABS: Bedside Glucose 145 mg/dL (70-110)
[2019-11-06 12:05] LABS: Bedside Glucose 100 mg/dL (70-110)
[2019-11-06 12:06] VITALS: BP 160/96; PULSE 66; RESP 16; TEMP 36.2; BMI 24.9
[2019-11-06 12:11] VITALS: BP 136/80; BP 160/96; PULSE 66; PULSE 81; RESP 16; RESP 18; TEMP 36.6; TEMP 36.8
--- NOTE | 2019-11-06 18:56 | HBO.PN.PCM_ITS ---
History of Present Illness Date of Service: 11/06/19 Presenting Chief Complaint: Nonhealing ulcer right heel, Valdez Grade 3 diabetic ulcer. TRAM RIVERA is a 69 year old currently undergoing hyperbaric oxygen therapy for Valdez Grade 3 diabetic foot ulcer of his right heel. Progress: Today represents a 62nd treatment of hyperbaric oxygen therapy. He is scheduled for 80 treatments. Tolerance of hyperbaric oxygen therapy: Hyperbaric oxygen treatment was provided as per the facility's protocol at 2.0 ANA in 100% oxygen for 90 minutes without air breaks. The patient tolerated hyperbaric oxygen well, without complications or complaints. Upon emergence of the hyperbaric chamber, the patient's vital si gns remained stable. Pre-and post blood glucose levels as documented. He was discharged in good condition. 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) Diabetes with ulcer of toe (Chronic) PAD (peripheral artery disease) (Chronic) Cellulitis and abscess of foot (Chronic) Type 2 diabetes, controlled, with ulcer of heel (Chronic) Non-healing open wound of heel (Chronic) Hyperlipidemia (Chronic) Peripheral vascular disease (Chronic) Hypertension (Chronic) Coronary artery disease (Chronic) Status post CABG Type II diabetes mellitus (Chronic) Valdez grade 3 Allergies/Adverse Reactions: Allergies rivaroxaban [From Xarelto] Allergy (Verified 02/13/19 16:41) Other Home Medications: Ambulatory Orders Medication Instructions Recorded #17 3 tab PO DAILY 06/13/18 Aspirin [Lite Coat Aspirin] 325 mg PO DAILY 06/13/18 [id number] 1 PO DAILY 06/13/18 Calcium Lactate 1 PO DAILY 06/13/18 Cat C 2 PO DAILY 06/13/18 Cat E2 8 PO DAILY 06/13/18 Cholecalciferol (Vitamin D3) 5,000 mg PO DAILY 06/13/18 [Vitamin D3] Colon Clear 1 tab PO PRN PRN 06/13/18 Inositol 2 PO PRN PRN 06/13/18 Intestinal Cleanse No 1 3 tab PO PRN PRN 06/13/18 Koncentrated K 1 tab PO DAILY 06/13/18 Mag Lactate 1 PO DAILY 06/13/18 Nattokinase 2 tab PO DAILY 06/13/18 Potassium-Derick 1 PO DAILY 06/13/18 Tuna 03 Oil 3 PO DAILY 06/13/18 Zn-Zyme 1 PO DAILY 06/13/18 Clopidogrel Bisulfate [Clopidogrel] 75 mg PO DAILY 09/08/18 traMADol [Ultram] 50 tablet PO PRN PRN 09/08/18 Aurum Metallicum 2 drp PO DAILY 02/13/19 Cbd Oil DAILY 02/13/19 Sibling Family History: Cancer Maternal Family History: Diabetes, Heart Disease, Hypertension, Stroke Paternal Family History: Diabetes, Heart Disease, Pulmonary Disease Lives: Spouse/ Significant Other Smoking Status: Never smoker Tobacco Use: Non-smoker Alcohol: None Drugs: None Physical Exam Vital Signs Temp Pulse Resp BP 97.8 F 81 16 136/80 H 11/06/19 12:11 11/06/19 12:11 11/06/19 12:11 11/06/19 12:11 General: Alert, Oriented x3, Cooperative, No apparent distress Psych/Mental Status: Normal Affect, Appropriate Assessment/Plan Active Problems Type 2 diabetes, uncontrolled, with ulcer of heel (Chronic) right plantar heel PAD (peripheral artery disease) (Chronic) Cellulitis and abscess of foot (Chronic) Type 2 diabetes, controlled, with ulcer of heel (Chronic) Non-healing open wound of heel (Chronic) Type II diabetes mellitus (Chronic) Valdez grade 3 Patient appears to be tolerating hyperbaric oxygen therapy well, which will be continued as per the patient's medical treatment plan.
--- NOTE | 2019-11-06 18:57 | PN.PCM_ITS ---
(1) Type 2 diabetes, uncontrolled, with ulcer of heel Status: Chronic Current Visit: Yes Code(s): E11.621 - Type 2 diabetes mellitus with foot ulcer; E11.65 - Type 2 diabetes mellitus with hyperglycemia; L97.409 - Non-pressure chronic ulcer of unspecified heel and midfoot with unspecified severity Comment: right plantar heel (2) PAD (peripheral artery disease) Status: Chronic Current Visit: Yes Code(s): I73.9 - Peripheral vascular disease, unspecified (3) Cellulitis and abscess of foot Status: Chronic Current Visit: Yes Code(s): L03.119 - Cellulitis of unspecified part of limb; L02.619 - Cutaneous abscess of unspecified foot (4) Type 2 diabetes, controlled, with ulcer of heel Status: Chronic Current Visit: Yes Code(s): E11.621 - Type 2 diabetes mellitus with foot ulcer; L97.409 - Non-pressure chronic ulcer of unspecified heel and midfoot with unspecified severity (5) Non-healing open wound of heel Status: Chronic Current Visit: Yes Qualifiers: Encounter type: subsequent encounter Laterality: right Qualified Code(s): S91.301D - Unspecified open wound, right foot, subsequent encounter Code(s): S91.309A - Unspecified open wound, unspecified foot, initial encounter (6) Type II diabetes mellitus Status: Chronic Current Visit: Yes Qualifiers: Diabetes mellitus roasterman insulin use: without long-term use Diabetes mellitus complication status: with skin complications Diabetes mellitus complication detail: with foot ulcer Qualified Code(s): E11.621 - Type 2 diabetes mellitus with foot ulcer; L97.509 - Non-pressure chronic ulcer of other part of unspecified foot with unspecified severity Code(s): E11.9 - Type 2 diabetes mellitus without complications Comment: Valdez grade 3 Type of Wound Date of Service: 11/06/19 Chief Complaint: Nonhealing ulcer right heel, Valdez Grade 3 diabetic ulcer. History of Wound: Gibson is here for evaluation of an ulcer of his right heel. He was recently treated for this same area with Theraskin application and was discharged approximately 8 weeks ago. 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 He has been applying Aquacel and gauze to the ulcer. He does follow with Dr. Navas regularly and had a bypass of his right SFA and popliteal arteries earlier this year. He has had procedures for his arterial disease in past to both of his lower extremities. He has tried alternative treatments with supplements and chelation therapy in the past. He also has diabetes and recent A1C was 7.2% He does wear diabetic shoes. He had been undergoing chelation treatments by Dr. German in [place]. He denies fever, chills, erythema or heavy drainage. He reports significant pain and discomfort of his right heel and his entire right leg which no one can explain. In March 2019, he was hospitalized due to occlusion of his bypass graft in his right leg and Dr. Navas was able to open it 50%. He also has blockages in his left leg. Dr. Navas is unable to revascularize either leg at this time and he may ultimately require limb amputation if his vascular disease worsens. Progress of Wound: Gibson is here to follow up for nonhealing ulcer of his right heel. He reports his pain is about the same this week. He is tolerating the snap vac but again the drainage has been variable and he has had some maceration surrounding the ulcer. Overall, he is very slowly improving with the combination of hyperbaric oxygen treatments and negative pressure treatment although this may be even more significant once negative pressure treatment with a traditional wound vac is initiated due to the location of his wound on his plantar surface of his foot and potential for inconsistent negative pressure with the snap vac. He has had several setbacks and has had inconsistent improvement of the volume of his ulcer due to the variation in the snap vac negative pressure as well as the COTY not having adequate pressure to manage heavy drainage from his ulcer as well as infections. Although the measurements of volume do not show dramatic improvement there has not been worsening which I believe that there would be if he was not undergoing hyperbaric treatment and th at it is medically necessary that he continue hyperbaric oxygen treatment to prevent loss of his limb. Denies fever, chills, erythema. - Physical Exam Vital Signs Temp Pulse Resp BP 97.8 F 81 16 136/80 H 11/06/19 12:11 11/06/19 12:11 11/06/19 12:11 11/06/19 12:11 General: Alert, Oriented x3, Cooperative, No apparent distress HEENT: Atraumatic, Normocephalic Oral: Moist Mucosa Extremities: No edema, Cool, Diminished Peripheral Pulses Skin: Ulcer/ Wound Wound Measurements and Assessment WC - Nurse 1 - General Ulcer Measurement Start: 10/16/19 12:59 Freq: Status: Active Protocol: Activity Type Activity Date Activity User E-Sign Co-Sign Detail Recorded Client Recorded Date Recorded By Document 11/06/19 12:06 MW [id number] 11/06/19 12:22 MW 11/06/19 12:06 Wound Center Nurse 1 [Ulcer Assessment] #14- R HEEL -Combined with other wound No -Current Size (cm) - Length 1.3 -Current Size (cm) - Width 1.2 -Current Size (cm) - Depth 0.7 -Total Square Cm 1.56 -Date of Last Picture (Recall this 11/06/19 field) -Photo Taken Yes -Epithelialization None Present -Tunneling No -Undermining/Tunneling Yes -Undermining/Tunneling Starts (O' 12 clock) -Undermining/Tunneling Ends (O'clock) 1 -Maximum Distance (cm) 1.5 -Circular Undermining No -Exudate Amt Small -Exudate Type Serosanguineous -Wound Margin Thickened -Granulation Amt Large (67-100%) -Granulation Quality Red -Slough/Fibrin Yes -Necrosis Amt Small (1-33%) -Necrotic Tissue Type Adherent Slough -Texture (Shahana-wound Skin Appearance) Assessed, Scarring -Moisture (Shahana-wound Skin Appearance Assessed, ) Maceration -Color (Shahana-wound Skin Appearance) Assessed,Palor -Temperature (Shahana-wound Skin No Abnormality Appearance) (Pt Warm) -Tenderness on Palpation (Shahana-wound No Skin Appearance) -Ulcer Cleansing soapy water -Foul Odor after Cleansing No -Anesthetic Used 5% Lidocaine Gel WC - Nurse 2 - General Ulcer CM Notes Start: 10/16/19 12:59 Freq: Status: Active Protocol: Activity Type Activity Date Activity User E-Sign Co-Sign Detail Recorded Client Recorded Date Recorded By Document 11/06/19 12:41 MW [id number] 11/06/19 13:03 MW 11/06/19 12:41 Wound Center Nurse 2 [Procedure/Treatment] -Time 12:48 -Correct Patient Yes -Correct Side, Site, Position Yes -Correct Procedure Yes -Procedure Performed Yes -Type of Procedure Debridement -Clinical Debridement Subcutaneous -Post Debridement Size (cm) - Length 1.1 -Post Debridement Size (cm) - Width 1.0 -Post Debridement Size (cm) - Depth 0.7 -Total Square Cm 1.10 -Wound/Ulcer Outcome Not Healed -Ulcer Cleansing Rinsed/ Irrigated with Saline -Foul Odor after Cleansing No -Bioengineered Tissue No -Injectable Lidocaine (%) 2 -Lidocaine (ml) 7 -Bleeding Controlled with Pressure -Other tunnel @1, -Offloading No -Treatment Response Procedure Tolerated Well [See Physician Procedure note for Specifics] Pain Scale: 0-10 Numeric [Pain] -Is Patient Pain Free? Yes Psych/Mental Status: Normal Affect, Appropriate Debridement Note Post-Debridement Measurements/Treatment WC - Nurse 2 - General Ulcer CM Notes Start: 10/16/19 12:59 Freq: Status: Active Protocol: Activity Type Activity Date Activity User E-Sign Co-Sign Detail Recorded Client Recorded Date Recorded By Document 10/16/19 13:46 DV [id number] 10/16/19 14:03 DV Document 10/23/19 14:07 DV [id number] 10/23/19 14:15 DV Document 10/30/19 15:53 DV [id number] 10/30/19 15:57 DV Document 11/06/19 12:41 MW [id number] 11/06/19 13:03 MW 10/16/19 10/23/19 10/30/19 13:46 14:07 15:53 Wound Center Nurse 2 #14- R HEEL -Time 13:46 14:11 15:54 -Correct Patient Yes Yes Yes -Correct Side, Site, Position Yes Yes Yes -Correct Procedure Yes Yes Yes -Procedure Performed Yes Yes Yes -Type of Procedure Debridement Debridement Debridement -Clinical Debridement Subcutaneous Subcutaneous Subcutaneous -Post Debridement Size (cm) - Length 1.0 0.7 1.1 -Post Debridement Size (cm) - Width 1.3 0.8 1.1 -Post Debridement Size (cm) - Depth 0.5 0.7 0.5 -Total Square Cm 1.30 0.56 1.21 -Wound/Ulcer Outcome Not Healed Not Healed Not Healed -Ulcer Cleansing Rinsed/ Rinsed/ Rinsed/ Irrigated with Irrigated with Irrigated with Saline Saline Saline -Foul Odor after Cleansing No No No -Bioengineered Tissue No No No -Injectable Lidocaine (%) -Lidocaine (ml) -Bleeding Controlled with Pressure Pressure Pressure -Other -Offloading Yes No No -Type of Offloading Surgical Shoe Surgical Shoe Surgical Shoe -Treatment Response Procedure Procedure Procedure Tolerated Well Tolerated Well Tolerated Well Pain Scale: 0-10 Numeric Is Patient Pain Free? Yes Yes Yes 11/06/19 12:41 Wound Center Nurse 2 #14- R HEEL -Time 12:48 -Correct Patient Yes -Correct Side, Site, Position Yes -Correct Procedure Yes -Procedure Performed Yes -Type of Procedure Debridement -Clinical Debridement Subcutaneous -Post Debridement Size (cm) - Length 1.1 -Post Debridement Size (cm) - Width 1.0 -Post Debridement Size (cm) - Depth 0.7 -Total Square Cm 1.10 -Wound/Ulcer Outcome Not Healed -Ulcer Cleansing Rinsed/ Irrigated with Saline -Foul Odor after Cleansing No -Bioengineered Tissue No -Injectable Lidocaine (%) 2 -Lidocaine (ml) 7 -Bleeding Controlled with Pressure -Other tunnel @1, -Offloading No -Type of Offloading -Treatment Response Procedure Tolerated Well Pain Scale: 0-10 Numeric Is Patient Pain Free? Yes Wound debrided: right heel Laterality: Right Wound Grade/Stage: Valdez grade 3 Type of Debridement: Excisional debridement Anesthesia Used: 4% Lidocaine Solution, 5% Lidocaine Gel Depth: Down to and including healthy tissue, in the subcutaneous layer, to muscle Percentage of wound debrided: 100 Instrument Used: 3mm curette Tissue Removed: Yellow slough, devitalized tissue Severity: Fat Layer Exposed Amount of bleeding with debridement: Mild Bleeding Controlled with: Compression and gauze Patient tolerated procedure well Assessment/Plan Active Problems Type 2 diabetes, uncontrolled, with ulcer of heel (Chronic) right plantar heel PAD (peripheral artery disease) (Chronic) Cellulitis and abscess of foot (Chronic) Type 2 diabetes, controlled, with ulcer of heel (Chronic) Non-healing open wound of heel (Chronic) Type II diabetes mellitus (Chronic) Valdez grade 3 Assessment: 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 Diabetes mellitus - controlled. Peripheral vascular disease - status post revascularization 08/07/18 and 03/2019 Plan: Gibson's ulcer was evaluated and debrided today with again less significant improvement from last week. Traditional wound vac was not received until today and was applied today after debridement. I feel that he will improve with continuous negative pressure therapy as provided by a traditional wound vac as opposed to the snap vac that he has been currently using in conjunction with hyperbaric oxygen therapy. Although his volumes have not significantly decreased, I believe that this is likely due to the variation of the snap vac negative pressure and location of the ulcer and that continuous negative pressure at 150 mm Hg from traditional wound vac will show significant improvement in conjunction with hyperbaric oxygen therapy and will salvage his limb from amputation. Plan to re-evaluate whether continued hyperbaric oxygen treatment will be beneficial after 2 weeks of using the traditional wound vac at the 150 mm Hg pressure. He is tolerating HBO treatment and without this treatment I do not feel he would achieve progress in healing his ulcer. He has had 62 of 80 ordered HBO treatments as of today October 30, 2019. I feel that it is medically necessary that he continue with hyperbaric oxygen treatments to salvage his limb and I recommend extending his planned 60 treatments for 30 additional treatments for a total of 90 treatments since initiating hyperbaric oxygen therapy on 08/05/2019. As of November 06, 2019, 20 treatments have been approved for a total of 80 treatments. Ulcer will be dressed with traditional wound vac with black foam into the undermining/tunnel at the setting of 150 mm Hg pressure. He will continue to use the surgical shoe for offloading. He will continue to benefit from hyperbaric oxygen treatment to help heal his wound and salvage his limb from amputation given his comorbid arterial disease and DFU. Oxycodone 5 mg #45 were prescribed for treatment of pain with debridements on 10/30/2019. OARRS was appropriate. No signs of diversion or abuse. Encouraged to call with any increase in pain or drainage, fever or chills. He will benefit f rom hyperbaric oxygen treatment as well as wound vac treatment to heal his ulcer and manage heavy drainage that is coming from ulcer. F/U in 1 week.
[2019-11-10 11:20] LABS: Bedside Glucose 134 mg/dL (70-110)
[2019-11-10 12:35] VITALS: BP 127/75; BP 175/92; PULSE 73; PULSE 86; RESP 16; RESP 18; TEMP 36.2; TEMP 36.4
--- NOTE | 2019-11-10 12:53 | HBO.PN.PCM_ITS ---
History of Present Illness Date of Service: 11/10/19 Presenting Chief Complaint: Nonhealing ulcer right heel, Valdez Grade 3 diabetic ulcer. TRAM RIVERA is a 69 year old currently undergoing hyperbaric oxygen therapy for Valdez Grade 3 diabetic foot ulcer of his right heel. Progress: Today represents a 63rd treatment of hyperbaric oxygen therapy. He is scheduled for 80 treatments. Tolerance of hyperbaric oxygen therapy: Hyperbaric oxygen treatment was provided as per the facility's protocol at 2.0 ANA in 100% oxygen for 90 minutes without air breaks. The patient tolerated hyperbaric oxygen well, without complications or complaints. Upon emergence of the hyperbaric chamber, the patient's vital si gns remained stable. Pre-and post blood glucose levels as documented. He was discharged in good condition. 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) Diabetes with ulcer of toe (Chronic) PAD (peripheral artery disease) (Chronic) Cellulitis and abscess of foot (Chronic) Type 2 diabetes, controlled, with ulcer of heel (Chronic) Non-healing open wound of heel (Chronic) Hyperlipidemia (Chronic) Peripheral vascular disease (Chronic) Hypertension (Chronic) Coronary artery disease (Chronic) Status post CABG Type II diabetes mellitus (Chronic) Valdez grade 3 Allergies/Adverse Reactions: Allergies rivaroxaban [From Xarelto] Allergy (Verified 02/13/19 16:41) Other Home Medications: Ambulatory Orders Medication Instructions Recorded #17 3 tab PO DAILY 06/13/18 Aspirin [Lite Coat Aspirin] 325 mg PO DAILY 06/13/18 [id number] 1 PO DAILY 06/13/18 Calcium Lactate 1 PO DAILY 06/13/18 Cat C 2 PO DAILY 06/13/18 Cat E2 8 PO DAILY 06/13/18 Cholecalciferol (Vitamin D3) 5,000 mg PO DAILY 06/13/18 [Vitamin D3] Colon Clear 1 tab PO PRN PRN 06/13/18 Inositol 2 PO PRN PRN 06/13/18 Intestinal Cleanse No 1 3 tab PO PRN PRN 06/13/18 Koncentrated K 1 tab PO DAILY 06/13/18 Mag Lactate 1 PO DAILY 06/13/18 Nattokinase 2 tab PO DAILY 06/13/18 Potassium-Derick 1 PO DAILY 06/13/18 Tuna 03 Oil 3 PO DAILY 06/13/18 Zn-Zyme 1 PO DAILY 06/13/18 Clopidogrel Bisulfate [Clopidogrel] 75 mg PO DAILY 09/08/18 traMADol [Ultram] 50 tablet PO PRN PRN 09/08/18 Aurum Metallicum 2 drp PO DAILY 02/13/19 Cbd Oil DAILY 02/13/19 Sibling Family History: Cancer Maternal Family History: Diabetes, Heart Disease, Hypertension, Stroke Paternal Family History: Diabetes, Heart Disease, Pulmonary Disease Lives: Spouse/ Significant Other Smoking Status: Never smoker Tobacco Use: Non-smoker Alcohol: None Drugs: None Physical Exam Vital Signs Temp Pulse Resp BP 97.2 F L 86 16 127/75 H 11/10/19 12:35 11/10/19 12:35 11/10/19 12:35 11/10/19 12:35 General: Alert, Oriented x3, Cooperative, No apparent distress, Well developed, Well nourished HEENT: Atraumatic, PERRLA, EOMI, Normocephalic Lungs: Normal air movement Psych/Mental Status: Normal Affect, Appropriate, Alert and oriented to time, place, person, mood and affect Assessment/Plan Active Problems Type 2 diabetes, uncontrolled, with ulcer of heel (Chronic) right plantar heel PAD (peripheral artery disease) (Chronic) Cellulitis and abscess of foot (Chronic) Type 2 diabetes, controlled, with ulcer of heel (Chronic) Non-healing open wound of heel (Chronic) Type II diabetes mellitus (Chronic) Valdez grade 3 Patient appears to be tolerating hyperbaric oxygen therapy well, which will be continued as per the patient's medical treatment plan.
[2019-11-10 12:57] VITALS: BP 127/75; PULSE 86; RESP 16; TEMP 36.4; BMI 24.9
[2019-11-11 07:10] LABS: Bedside Glucose 208 mg/dL (70-110)
[2019-11-11 09:10] LABS: Bedside Glucose 182 mg/dL (70-110)
[2019-11-11 10:35] VITALS: BP 139/73; BP 149/74; PULSE 76; PULSE 85; RESP 16; RESP 18; TEMP 36.4; TEMP 36.6
--- NOTE | 2019-11-11 10:46 | HBO.PN.PCM_ITS ---
History of Present Illness Date of Service: 11/11/19 Presenting Chief Complaint: Nonhealing ulcer right heel, Valdez Grade 3 diabetic ulcer. TRAM RIVERA is a 69 year old currently undergoing hyperbaric oxygen therapy for Valdez Grade 3 diabetic foot ulcer of his right heel. Progress: Today represents a 64th treatment of hyperbaric oxygen therapy. He is scheduled for 80 treatments. Tolerance of hyperbaric oxygen therapy: Hyperbaric oxygen treatment was provided as per the facility's protocol at 2.0 ANA in 100% oxygen for 90 minutes without air breaks. The patient tolerated hyperbaric oxygen well, without complications or complaints. Upon emergence of the hyperbaric chamber, the patient's vital si gns remained stable. Pre-and post blood glucose levels as documented. He was discharged in good condition. 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) Diabetes with ulcer of toe (Chronic) PAD (peripheral artery disease) (Chronic) Cellulitis and abscess of foot (Chronic) Type 2 diabetes, controlled, with ulcer of heel (Chronic) Non-healing open wound of heel (Chronic) Hyperlipidemia (Chronic) Peripheral vascular disease (Chronic) Hypertension (Chronic) Coronary artery disease (Chronic) Status post CABG Type II diabetes mellitus (Chronic) Valdez grade 3 Allergies/Adverse Reactions: Allergies rivaroxaban [From Xarelto] Allergy (Verified 02/13/19 16:41) Other Home Medications: Ambulatory Orders Medication Instructions Recorded #17 3 tab PO DAILY 06/13/18 Aspirin [Lite Coat Aspirin] 325 mg PO DAILY 06/13/18 [id number] 1 PO DAILY 06/13/18 Calcium Lactate 1 PO DAILY 06/13/18 Cat C 2 PO DAILY 06/13/18 Cat E2 8 PO DAILY 06/13/18 Cholecalciferol (Vitamin D3) 5,000 mg PO DAILY 06/13/18 [Vitamin D3] Colon Clear 1 tab PO PRN PRN 06/13/18 Inositol 2 PO PRN PRN 06/13/18 Intestinal Cleanse No 1 3 tab PO PRN PRN 06/13/18 Koncentrated K 1 tab PO DAILY 06/13/18 Mag Lactate 1 PO DAILY 06/13/18 Nattokinase 2 tab PO DAILY 06/13/18 Potassium-Derick 1 PO DAILY 06/13/18 Tuna 03 Oil 3 PO DAILY 06/13/18 Zn-Zyme 1 PO DAILY 06/13/18 Clopidogrel Bisulfate [Clopidogrel] 75 mg PO DAILY 09/08/18 traMADol [Ultram] 50 tablet PO PRN PRN 09/08/18 Aurum Metallicum 2 drp PO DAILY 02/13/19 Cbd Oil DAILY 02/13/19 Sibling Family History: Cancer Maternal Family History: Diabetes, Heart Disease, Hypertension, Stroke Paternal Family History: Diabetes, Heart Disease, Pulmonary Disease Lives: Spouse/ Significant Other Smoking Status: Never smoker Tobacco Use: Non-smoker Alcohol: None Drugs: None Physical Exam Vital Signs Temp Pulse Resp BP 97.9 F 85 18 149/74 H 11/11/19 10:35 11/11/19 10:35 11/11/19 10:35 11/11/19 10:35 Assessment/Plan Active Problems Type 2 diabetes, uncontrolled, with ulcer of heel (Chronic) right plantar heel PAD (peripheral artery disease) (Chronic) Cellulitis and abscess of foot (Chronic) Type 2 diabetes, controlled, with ulcer of heel (Chronic) Non-healing open wound of heel (Chronic) Type II diabetes mellitus (Chronic) Valdez grade 3 Patient appears to be tolerating hyperbaric oxygen therapy well, which will be continued as per the patient's medical treatment plan.
[2019-11-11 11:20] LABS: Bedside Glucose 134 mg/dL (70-110)
[2019-11-12 09:05] LABS: Bedside Glucose 178 mg/dL (70-110)
--- NOTE | 2019-11-12 10:11 | HBO.PN.PCM_ITS ---
History of Present Illness Date of Service: 11/12/19 Presenting Chief Complaint: Nonhealing ulcer right heel, Valdez Grade 3 diabetic ulcer. TRAM RIVERA is a 69 year old currently undergoing hyperbaric oxygen therapy for Valdez Grade 3 diabetic foot ulcer of his right heel. Progress: Today represents a 65th treatment of hyperbaric oxygen therapy. He is scheduled for 80 treatments. Tolerance of hyperbaric oxygen therapy: Hyperbaric oxygen treatment was provided as per the facility's protocol at 2.0 ANA in 100% oxygen for 90 minutes without air breaks. The patient tolerated hyperbaric oxygen well, without complications or complaints. Upon emergence of the hyperbaric chamber, the patient's vital si gns remained stable. Pre-and post blood glucose levels as documented. He was discharged in good condition. 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) Diabetes with ulcer of toe (Chronic) PAD (peripheral artery disease) (Chronic) Cellulitis and abscess of foot (Chronic) Type 2 diabetes, controlled, with ulcer of heel (Chronic) Non-healing open wound of heel (Chronic) Hyperlipidemia (Chronic) Peripheral vascular disease (Chronic) Hypertension (Chronic) Coronary artery disease (Chronic) Status post CABG Type II diabetes mellitus (Chronic) Valdez grade 3 Allergies/Adverse Reactions: Allergies rivaroxaban [From Xarelto] Allergy (Verified 02/13/19 16:41) Other Home Medications: Ambulatory Orders Medication Instructions Recorded #17 3 tab PO DAILY 06/13/18 Aspirin [Lite Coat Aspirin] 325 mg PO DAILY 06/13/18 [id number] 1 PO DAILY 06/13/18 Calcium Lactate 1 PO DAILY 06/13/18 Cat C 2 PO DAILY 06/13/18 Cat E2 8 PO DAILY 06/13/18 Cholecalciferol (Vitamin D3) 5,000 mg PO DAILY 06/13/18 [Vitamin D3] Colon Clear 1 tab PO PRN PRN 06/13/18 Inositol 2 PO PRN PRN 06/13/18 Intestinal Cleanse No 1 3 tab PO PRN PRN 06/13/18 Koncentrated K 1 tab PO DAILY 06/13/18 Mag Lactate 1 PO DAILY 06/13/18 Nattokinase 2 tab PO DAILY 06/13/18 Potassium-Derick 1 PO DAILY 06/13/18 Tuna 03 Oil 3 PO DAILY 06/13/18 Zn-Zyme 1 PO DAILY 06/13/18 Clopidogrel Bisulfate [Clopidogrel] 75 mg PO DAILY 09/08/18 traMADol [Ultram] 50 tablet PO PRN PRN 09/08/18 Aurum Metallicum 2 drp PO DAILY 02/13/19 Cbd Oil DAILY 02/13/19 Sibling Family History: Cancer Maternal Family History: Diabetes, Heart Disease, Hypertension, Stroke Paternal Family History: Diabetes, Heart Disease, Pulmonary Disease Lives: Spouse/ Significant Other Smoking Status: Never smoker Tobacco Use: Non-smoker Alcohol: None Drugs: None Physical Exam Vital Signs Temp Pulse Resp BP 97.9 F 85 18 149/74 H 11/11/19 10:35 11/11/19 10:35 11/11/19 10:35 11/11/19 10:35 General: Alert, Oriented x3, Cooperative, No apparent distress HEENT: Atraumatic, Normocephalic Lungs: Normal air movement Psych/Mental Status: Normal Affect Assessment/Plan Active Problems Type 2 diabetes, uncontrolled, with ulcer of heel (Chronic) right plantar heel PAD (peripheral artery disease) (Chronic) Cellulitis and abscess of foot (Chronic) Type 2 diabetes, controlled, with ulcer of heel (Chronic) Non-healing open wound of heel (Chronic) Type II diabetes mellitus (Chronic) Valdez grade 3 Patient appears to be tolerating hyperbaric oxygen therapy well, which will be continued as per the patient's medical treatment plan. HBO supervision
[2019-11-12 10:41] VITALS: BP 139/75; BP 145/77; PULSE 64; PULSE 77; RESP 16; TEMP 36.7; TEMP 36.9
[2019-11-12 11:31] LABS: Bedside Glucose 121 mg/dL (70-110)
[2019-11-13 10:20] LABS: Bedside Glucose 157 mg/dL (70-110)
[2019-11-13 10:56] VITALS: BP 145/63; PULSE 70; RESP 18; TEMP 36.3
[2019-11-13 12:25] LABS: Bedside Glucose 120 mg/dL (70-110)
[2019-11-13 12:34] VITALS: BP 132/77; PULSE 64; RESP 16; TEMP 36.3; BMI 24.9
[2019-11-13 12:38] VITALS: BP 132/77; BP 145/63; PULSE 64; PULSE 70; RESP 16; RESP 18; TEMP 36.3
--- NOTE | 2019-11-13 17:47 | HBO.PN.PCM_ITS ---
History of Present Illness Date of Service: 11/13/19 Presenting Chief Complaint: Nonhealing ulcer right heel, Valdez Grade 3 diabetic ulcer. TRAM RIVERA is a 69 year old currently undergoing hyperbaric oxygen therapy for Valdez Grade 3 diabetic foot ulcer of his right heel. Progress: Today represents a 66th treatment of hyperbaric oxygen therapy. He is scheduled for 80 treatments. Tolerance of hyperbaric oxygen therapy: Hyperbaric oxygen treatment was provided as per the facility's protocol at 2.0 ANA in 100% oxygen for 90 minutes without air breaks. The patient tolerated hyperbaric oxygen well, without complications or complaints. Upon emergence of the hyperbaric chamber, the patient's vital si gns remained stable. Pre-and post blood glucose levels as documented. He was discharged in good condition. 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) Diabetes with ulcer of toe (Chronic) PAD (peripheral artery disease) (Chronic) Cellulitis and abscess of foot (Chronic) Type 2 diabetes, controlled, with ulcer of heel (Chronic) Non-healing open wound of heel (Chronic) Hyperlipidemia (Chronic) Peripheral vascular disease (Chronic) Hypertension (Chronic) Coronary artery disease (Chronic) Status post CABG Type II diabetes mellitus (Chronic) Valdez grade 3 Allergies/Adverse Reactions: Allergies rivaroxaban [From Xarelto] Allergy (Verified 02/13/19 16:41) Other Home Medications: Ambulatory Orders Medication Instructions Recorded #17 3 tab PO DAILY 06/13/18 Aspirin [Lite Coat Aspirin] 325 mg PO DAILY 06/13/18 [id number] 1 PO DAILY 06/13/18 Calcium Lactate 1 PO DAILY 06/13/18 Cat C 2 PO DAILY 06/13/18 Cat E2 8 PO DAILY 06/13/18 Cholecalciferol (Vitamin D3) 5,000 mg PO DAILY 06/13/18 [Vitamin D3] Colon Clear 1 tab PO PRN PRN 06/13/18 Inositol 2 PO PRN PRN 06/13/18 Intestinal Cleanse No 1 3 tab PO PRN PRN 06/13/18 Koncentrated K 1 tab PO DAILY 06/13/18 Mag Lactate 1 PO DAILY 06/13/18 Nattokinase 2 tab PO DAILY 06/13/18 Potassium-Derick 1 PO DAILY 06/13/18 Tuna 03 Oil 3 PO DAILY 06/13/18 Zn-Zyme 1 PO DAILY 06/13/18 Clopidogrel Bisulfate [Clopidogrel] 75 mg PO DAILY 09/08/18 traMADol [Ultram] 50 tablet PO PRN PRN 09/08/18 Aurum Metallicum 2 drp PO DAILY 02/13/19 Cbd Oil DAILY 02/13/19 Sibling Family History: Cancer Maternal Family History: Diabetes, Heart Disease, Hypertension, Stroke Paternal Family History: Diabetes, Heart Disease, Pulmonary Disease Lives: Spouse/ Significant Other Smoking Status: Never smoker Tobacco Use: Non-smoker Alcohol: None Drugs: None Physical Exam Vital Signs Temp Pulse Resp BP 97.4 F L 70 18 145/63 H 11/13/19 12:38 11/13/19 12:38 11/13/19 12:38 11/13/19 12:38 General: Alert, Oriented x3, Cooperative, No apparent distress Psych/Mental Status: Normal Affect, Appropriate Assessment/Plan Active Problems Type 2 diabetes, uncontrolled, with ulcer of heel (Chronic) right plantar heel PAD (peripheral artery disease) (Chronic) Cellulitis and abscess of foot (Chronic) Type 2 diabetes, controlled, with ulcer of heel (Chronic) Non-healing open wound of heel (Chronic) Type II diabetes mellitus (Chronic) Valdez grade 3 Patient appears to be tolerating hyperbaric oxygen therapy well, which will be continued as per the patient's medical treatment plan.
--- NOTE | 2019-11-13 17:50 | PCM.WC.PN ---
(1) Type 2 diabetes, uncontrolled, with ulcer of heel Status: Chronic Current Visit: Yes Code(s): E11.621 - Type 2 diabetes mellitus with foot ulcer; E11.65 - Type 2 diabetes mellitus with hyperglycemia; L97.409 - Non-pressure chronic ulcer of unspecified heel and midfoot with unspecified severity Comment: right plantar heel (2) PAD (peripheral artery disease) Status: Chronic Current Visit: Yes Code(s): I73.9 - Peripheral vascular disease, unspecified (3) Cellulitis and abscess of foot Status: Chronic Current Visit: Yes Code(s): L03.119 - Cellulitis of unspecified part of limb; L02.619 - Cutaneous abscess of unspecified foot (4) Type 2 diabetes, controlled, with ulcer of heel Status: Chronic Current Visit: Yes Code(s): E11.621 - Type 2 diabetes mellitus with foot ulcer; L97.409 - Non-pressure chronic ulcer of unspecified heel and midfoot with unspecified severity (5) Non-healing open wound of heel Status: Chronic Current Visit: Yes Qualifiers: Encounter type: subsequent encounter Laterality: right Qualified Code(s): S91.301D - Unspecified open wound, right foot, subsequent encounter Code(s): S91.309A - Unspecified open wound, unspecified foot, initial encounter (6) Type II diabetes mellitus Status: Chronic Current Visit: Yes Qualifiers: 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 History of Wound: Gibson is here for evaluation of an ulcer of his right heel. He was recently treated for this same area with [place] application and was discharged approximately 8 weeks ago. He has noticed increased pain in his heel for the last 2 weeks and last his noted that the area had opened after his set designer had debrided some callus from the area. He has been applying Aquacel and gauze to the ulcer. He does follow with Dr. Navas regularly and had a bypass of his right SFA and popliteal arteries earlier this year. He has had procedures for his arterial disease in past to both of his lower extremities. He has tried alternative treatments with supplements and chelation therapy in the past. He also has diabetes and recent A1C was 7.2% He does wear diabetic shoes. He had been undergoing chelation treatments by Dr. German in [place]. He denies fever, chills, erythema or heavy drainage. He reports significant pain and discomfort of his right heel and his entire right leg which no one can explain. In March 2019, he was hospitalized due to occlusion of his bypass graft in his right leg and Dr. Navas was able to open it 50%. He also has blockages in his left leg. Dr. Navas is unable to revascularize either leg at this time and he may ultimately require limb amputation if his vascular disease worsens. Progress of Wound: Gibson is here to follow up for nonhealing ulcer of his right heel. He reports his pain is about the same this week from last week. He tolerated the continuous pressure wound vac but did have an issue with the wound vac over the holiday weekend that required the wound vac device to be replaced by the company as it was not working appropriately and not providing continuous negative pressure. When he came for HBO treatment and wound vac change on Saturday, he did have maceration surrouding and the seal was not completely intact. There is some maceration today overall there is improvement in the tunneling of his ulcer. Overall, he is very slowly improving with the combination of hyperbaric oxygen treatments and negative pressure treatment although this may be even more significant as negative pressure treatment with a traditional wound vac is continued due to the location of his wound on his plantar surface of his foot and the higher pressure achievable with the traditional wound vac. He has had several setbacks and has had inconsistent improvement of the volume of his ulcer due to the variation in the snap vac negative pressure as well as the COTY not having adequate pressure to manage heavy drainage from his ulcer as well as infection. Although the measurements of volume do not show dramatic improvement there has not been worsening which I believe that there would be if he was not undergoing hyperbaric treatment during the last 3 months and that it is medically necessary that he continue hyperbaric oxygen treatment to prevent loss of his limb. Denies fever, chills, erythema. - Physical Exam Vital Signs Temp Pulse Resp BP 97.4 F L 70 18 145/63 H 11/13/19 12:38 11/13/19 12:38 11/13/19 12:38 11/13/19 12:38 General: Alert, Oriented x3, Cooperative, No apparent distress HEENT: Atraumatic, Normocephalic Oral: Moist Mucosa Extremities: Capillary Refill Less than 3 Seconds, Cool, Edema Skin: Ulcer/ Wound Wound Measurements and Assessment WC - Nurse 1 - General Ulcer Measurement Start: 10/16/19 12:59 Freq: Status: Active Protocol: Activity Type Activity Date Activity User E-Sign Co-Sign Detail Recorded Client Recorded Date Recorded By Document 11/13/19 12:34 MW [id number] 11/13/19 12:46 MW 11/13/19 12:34 Wound Center Nurse 1 [Ulcer Assessment] #14- R HEEL -Combined with other wound No -Current Size (cm) - Length 1.0 -Current Size (cm) - Width 1.0 -Current Size (cm) - Depth 0.6 -Total Square Cm 1.00 -Date of Last Picture (Recall this 11/13/19 field) -Photo Taken Yes -Epithelialization None Present -Tunneling No -Undermining/Tunneling No -Circular Undermining No -Exudate Amt Small -Exudate Type Serosanguineous -Wound Margin Thickened -Granulation Amt Small (1-33%) -Granulation Quality [place] -Slough/Fibrin Yes -Necrosis Amt Medium (34-66%) -Necrotic Tissue Type Adherent Slough -Structure Exposed N/A -Texture (Shahana-wound Skin Appearance) Assessed, Scarring -Moisture (Shahana-wound Skin Appearance Assessed, ) Maceration -Color (Shahana-wound Skin Appearance) No Abnormality, Assessed -Temperature (Shahana-wound Skin No Abnormality Appearance) (Pt Warm) -Tenderness on Palpation (Shahana-wound Yes Skin Appearance) -Ulcer Cleansing soap and water -Foul Odor after Cleansing No -Anesthetic Used 4% Lidocaine Solution,5% Lidocaine Gel [Edema Assessment] -Lower Limb Edema Present No WC - Nurse 2 - General Ulcer CM Notes Start: 10/16/19 12:59 Freq: Status: Active Protocol: Activity Type Activity Date Activity User E-Sign Co-Sign Detail Recorded Client Recorded Date Recorded By Document 11/13/19 13:44 DV [id number] 11/13/19 13:45 DV 11/13/19 13:44 Wound Center Nurse 2 [Procedure/Treatment] #14- R HEEL -Time 13:44 -Correct Patient Yes -Correct Side, Site, Position Yes -Correct Procedure Yes -Procedure Performed Yes -Type of Procedure Debridement -Clinical Debridement Subcutaneous -Post Debridement Size (cm) - Length 0.9 -Post Debridement Size (cm) - Width 0.9 -Post Debridement Size (cm) - Depth 1.9 -Total Square Cm 0.81 -Wound/Ulcer Outcome Not Healed -Ulcer Cleansing Rinsed/ Irrigated with Saline -Foul Odor after Cleansing No -Bioengineered Tissue No -Bleeding Controlled with Pressure -Offloading No -Treatment Response Procedure Tolerated Well [See Physician Procedure note for Specifics] Pain Scale: 0-10 Numeric [Pain] -Is Patient Pain Free? Yes Psych/Mental Status: Normal Affect, Appropriate Debridement Note Post-Debridement Measurements/Treatment WC - Nurse 2 - General Ulcer CM Notes Start: 10/16/19 12:59 Freq: Status: Active Protocol: Activity Type Activity Date Activity User E-Sign Co-Sign Detail Recorded Client Recorded Date Recorded By Document 10/16/19 13:46 DV [id number] 10/16/19 14:03 DV Document 10/23/19 14:07 DV [id number] 10/23/19 14:15 DV Document 10/30/19 15:53 DV [id number] 10/30/19 15:57 DV Document 11/06/19 12:41 MW [id number] 11/06/19 13:03 Document 11/13/19 13:44 DV [id number] 11/13/19 13:45 DV 10/16/19 10/23/19 10/30/19 13:46 14:07 15:53 Wound Center Nurse 2 #14- R HEEL -Time 13:46 14:11 15:54 -Correct Patient Yes Yes Yes -Correct Side, Site, Position Yes Yes Yes -Correct Procedure Yes Yes Yes -Procedure Performed Yes Yes Yes -Type of Procedure Debridement Debridement Debridement -Clinical Debridement Subcutaneous Subcutaneous Subcutaneous -Post Debridement Size (cm) - Length 1.0 0.7 1.1 -Post Debridement Size (cm) - Width 1.3 0.8 1.1 -Post Debridement Size (cm) - Depth 0.5 0.7 0.5 -Total Square Cm 1.30 0.56 1.21 -Wound/Ulcer Outcome Not Healed Not Healed Not Healed -Ulcer Cleansing Rinsed/ Rinsed/ Rinsed/ Irrigated with Irrigated with Irrigated with Saline Saline Saline -Foul Odor after Cleansing No No No -Bioengineered Tissue No No No -Injectable Lidocaine (%) -Lidocaine (ml) -Bleeding Controlled with Pressure Pressure Pressure -Other -Offloading Yes No No -Type of Offloading Surgical Shoe Surgical Shoe Surgical Shoe -Treatment Response Procedure Procedure Procedure Tolerated Well Tolerated Well Tolerated Well Pain Scale: 0-10 Numeric Is Patient Pain Free? Yes Yes Yes 11/06/19 11/13/19 12:41 13:44 Wound Center Nurse 2 #14- R HEEL -Time 12:48 13:44 -Correct Patient Yes Yes -Correct Side, Site, Position Yes Yes -Correct Procedure Yes Yes -Procedure Performed Yes Yes -Type of Procedure Debridement Debridement -Clinical Debridement Subcutaneous Subcutaneous -Post Debridement Size (cm) - Length 1.1 0.9 -Post Debridement Size (cm) - Width 1.0 0.9 -Post Debridement Size (cm) - Depth 0.7 1.9 -Total Square Cm 1.10 0.81 -Wound/Ulcer Outcome Not Healed Not Healed -Ulcer Cleansing Rinsed/ Rinsed/ Irrigated with Irrigated with Saline Saline -Foul Odor after Cleansing No No -Bioengineered Tissue No No -Injectable Lidocaine (%) 2 -Lidocaine (ml) 7 -Bleeding Controlled with Pressure Pressure -Other tunnel @1, -Offloading No No -Type of Offloading -Treatment Response Procedure Procedure Tolerated Well Tolerated Well Pain Scale: 0-10 Numeric Is Patient Pain Free? Yes Yes Wound debrided: right heel Laterality: Right Wound Grade/Stage: Valdez grade 3 Type of Debridement: Excisional debridement Anesthesia Used: 4% Lidocaine Solution, 5% Lidocaine Gel, Cetacaine - lidocaine 1% 5 ml Depth: Down to and including healthy tissue, in the subcutaneous layer, to muscle Percentage of wound debrided: 100 Instrument Used: 3mm curette Tissue Removed: Yellow slough, devitalized tissue Severity: Fat Layer Exposed Amount of bleeding with debridement: Mild Bleeding Controlled with: Compression and gauze Patient tolerated procedure well Assessment/Plan Active Problems Type 2 diabetes, uncontrolled, with ulcer of heel (Chronic) right plantar heel PAD (peripheral artery disease) (Chronic) Cellulitis and abscess of foot (Chronic) Type 2 diabetes, controlled, with ulcer of heel (Chronic) Non-healing open wound of heel (Chronic) Type II diabetes mellitus (Chronic) Valdez grade 3 Assessment: 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 Diabetes mellitus - controlled. Peripheral vascular disease - status post revascularization 08/07/18 and 03/2019 Plan: Gibson's ulcer was evaluated and debrided today with improvement from last week. Traditional wound vac has been well tolerated. I feel that he will continue to improve with continuous negative pressure therapy as provided by a traditional wound vac in conjunction with hyperbaric oxygen therapy. Although his volumes have not significantly decreased, I believe that this is likely due to the variation of the snap vac negative pressure and location of the ulcer and that continuous negative pressure at 150 mm Hg from traditional wound vac will show significant improvement in conjunction with hyperbaric oxygen therapy and will salvage his limb from amputation. Plan to re-evaluate whether continued hyperbaric oxygen treatment will be beneficial after 2 weeks of using the traditional wound vac at the 150 mm Hg pressure. He is tolerating HBO treatment and without this treatment I do not feel he would achieve progress in healing his ulcer. He has had 66 of 80 ordered HBO treatments as of today November 06, 2019. I feel that it is medically necessary that he continue with hyperbaric oxygen treatments to salvage his limb and I recommend extending his planned 60 treatments for 30 additional treatments for a total of 90 treatments since initiating hyperbaric oxygen therapy on 08/05/2019. As of November 06, 2019, 20 treatments have been approved for a total of 80 treatments. Ulcer will be dressed with traditional wound vac with black foam into the undermining/tunnel at the setting of 150 mm Hg pressure. He will continue to use the surgical shoe for offloading. He will continue to benefit from hyperbaric oxygen treatment to help heal his wound and salvage his limb from amputation given his comorbid arterial disease and DFU. Oxycodone 5 mg #45 were prescribed for treatment of pain with debridements on 10/30/2019. OARRS was appropriate. No signs of diversion or abuse. Encouraged to call with any increase in pain or drainage, fever or chills. He will benefit from hyperbaric oxygen treatment as well as wound vac treatment to heal his ulcer and manage heavy drainage that is coming from ulcer. F/U in 1 week.
== END 2019-11-15 23:59 ==
LOC: WC 10:15
PROVIDERS: Family Provider Family Medicine; PCP Family Medicine; Referring Provider Family Medicine; Visit Provider Family Medicine
DX: E11.621 Type 2 diabetes mellitus with foot ulcer (principal); E11.51 Type 2 diabetes mellitus with diabetic peripheral angiopathy without gangrene; E78.5 Hyperlipidemia, unspecified; I25.10 Atherosclerotic heart disease of native coronary artery without angina pectoris; I10 Essential (primary) hypertension; L97.412 Non-pressure chronic ulcer of right heel and midfoot with fat layer exposed; E11.65 Type 2 diabetes mellitus with hyperglycemia
CPT/HCPCS: 11042; 82962; 97605; 99183; 99212; G0277; G0463

== ENCOUNTER 2019-12-11 14:28 | Inpatient (IN) | payer MEDICARE, OTHER, SELFPAY ==
[2019-12-11 12:57] VITALS: BMI 24.9
[2019-12-11 14:30] VITALS: BP 139/53; PULSE 92; PULSE 94; RESP 17; TEMP 36.6; O2SAT 95; BMI 24.3
[2019-12-11 14:37] VITALS: BP 139/53; PULSE 94; RESP 17; TEMP 36.6; O2SAT 95
--- NOTE | 2019-12-11 14:50 | ED.DCSUM_ITS ---
History of Present Illness Chief Complaint: Wound Informant: Patient Onset: Days Context: Gradual Onset Timing: Continuous Narrative: 9-year-old male with multiple comorbidities including coronary artery disease, peripheral arterial disease, diabetes mellitus and history of stroke presenting with worsening redness and swelling of his right foot. Patient is a chronic wound on his right heel for some time. He was seen by his primary care doctor at the wound clinic today, Dr. Silva, he was concerned about the progression of his foot despite being on antibiotics and wanted him to come to the emergency room to be evaluated likely admitted for IV antibiotics. Patient states he is had worsening redness on his heel since Saturday, 5 days ago. Over the past 2 days he is had significant progression of the redness and swelling. He does have associated pain. Patient saw specialist at on Saturday, 4 days ago, and they recommend amputation of the foot. Patient is currently on Cipro and Flagyl. He is not have known osteomyelitis. He states he has been elevating his foot at home and been compliant with his antibiotics. Patient denies any associated fever, chills, chest pain, shortness of breath or difficulty breathing. He denies any other complaints at this time. Past Medical History - Allergies and Home Meds Allergies/Adverse Reactions: Allergies morphine Allergy (Verified 12/11/19 16:26) PT UNSURE OF REACTION i was told after surgery that i shouldn't have it rivaroxaban [From Xarelto] Allergy (Verified 12/11/19 14:29) Other Primary Care Physician: Mckayla Silva DO [Primary Care Provider] - Past Medical History: - - Type 2 diabetes mellitus, peripheral vascular disease, hypertension, coronary artery disease, history of stroke, chronic foot wound Surgical History: coronary bypass surgery, - - Recurrent back surgeries ?3, lower extremity bypass grafting Lives: Spouse/ Significant Other Smoking Status: Never smoker - Family History Sibling Family History: Reports: Cancer Maternal Family History: Reports: Diabetes, Heart Disease, Hypertension, Stroke Paternal Family History: Reports: Diabetes, Heart Disease, Pulmonary Disease Review of Systems General: Denies: Chills, Fever, Sweats Eyes: Denies: Visual changes - bilaterally, Diplopia ENT: Denies: Rhinorrhea, Sore throat Cardiovascular: Denies: Chest pain, Palpitations Respiratory: Denies: Dyspnea, Cough, Dyspnea on exertion Gastrointestinal: Denies: Abdominal pain, Nausea, Vomiting, Diarrhea, Melena, Hematochezia Genitourinary: Denies: Dysuria, Hematuria, Frequency Musculoskeletal: Reports: Swelling - Right foot, Extremity Pain - Right lower extremity. Denies: Back pain Skin: Reports: Rash - Right foot, Wounds - Right heel Neurological: Denies: Headache, Weakness, Numbness Physical Exam Vital Signs/Narrative: Vital Signs Temp Pulse Resp BP Pulse Ox 12/11/19 14:37 97.8 F 94 17 139/53 H 95 12/11/19 14:30 97.8 F 92 17 139/53 H 95 Inital Vital Signs reviewed: Yes General: Well nourished, Well developed, No Acute Distress Head: Normocephalic, Atraumatic Eyes: Perrl, EOMI ENT: Moist mucous membranes, No rhinorrhea Neck: Supple, Nontender Cardiovascular: Regular rate, Regular rhythm, No murmurs, - - 1+ bilateral DP pulses Respiratory: No distress, CTA bilaterally, Chest nontender Abdomen: Soft, Nontender, Nondistended, Normal bowel sounds Back: Nontender, Normal Inspection Extremities: - - Pedal edema, nonpitting of the right foot. Significant muscle wasting of the bilateral calfs and lower legs. Skin: - - Centimeter chronic appearing wound over the right heel, depth is not clear on exam. Surrounding erythema diffusely of the foot and streaking of the lower leg. Associated warmth. Neurological: Alert, Oriented x3, Cranial nerves II-XII grossly intact, - - Contracture and weakness of the right upper extremity. Psychological: Normal affect, Normal Mood Diagnostic/Tx/Re-eval Clinical Impression(s) from Imaging Studies Foot X-Ray 12/11/19 15:03 IMPRESSION: There is generalized soft tissue swelling. And an area of subcutaneous emphysema volar to the calcaneus has become more conspicuous and larger than on the previous study. This is consistent with an ulceration. Additionally, there is now worsening subtle erosive changes in the anterior inferior calcaneus which may represent early changes of osteomyelitis. This area of the calcaneus has become more fuzzy and ill-defined compared to the previous study. Profound osteopenia with polyarticular arthrosis Diffuse soft tissue swelling Stable calcaneal spurs Vascular calcifications Electronically Signed: Shamir Cano MD at 15:29 EDT , Service support , Laboratory Data 12/11/19 12/11/19 12/11/19 14:50 14:50 14:50 WBC 10.2 RBC 4.30 L Hgb 13.6 Hct 41.7 MCV 97.0 H MCH 31.6 MCHC 32.6 RDW Std Deviation 49.3 H RDW Coeff of Melodie 13.8 Plt Count 211 MPV 9.4 Immature Gran % (Auto) 0.600 Neut % (Auto) 76.6 H Lymph % (Auto) 9.6 L Barrow % (Auto) 10.3 H Eos % (Auto) 2.3 Baso % (Auto) 0.6 Absolute Neuts (auto) 7.8 H Absolute Lymphs (auto) 0.98 Nucleated RBC % 0 ESR 75 H PT 13.2 INR 1.1 APTT 31.9 Sodium 137 Potassium 4.1 Chloride 104 Carbon Dioxide 27.0 Anion Gap 6 BUN 18 Creatinine 1.05 Estim Creat Clear Calc 64.24 Est GFR (MDRD) Af Amer 90 Est GFR (MDRD) Non-Af 74 BUN/Creatinine Ratio 17.1 Glucose 175 H Lactic Acid Calcium 8.6 C-React Prot Ext Range 83.80 H 12/11/19 14:50 WBC RBC Hgb Hct MCV MCH MCHC RDW Std Deviation RDW Coeff of Melodie Plt Count MPV Immature Gran % (Auto) Neut % (Auto) Lymph % (Auto) Barrow % (Auto) Eos % (Auto) Baso % (Auto) Absolute Neuts (auto) Absolute Lymphs (auto) Nucleated RBC % ESR PT INR APTT Sodium Potassium Chloride Carbon Dioxide Anion Gap BUN Creatinine Estim Creat Clear Calc Est GFR (MDRD) Af Amer Est GFR (MDRD) Non-Af BUN/Creatinine Ratio Glucose Lactic Acid 1.7 Calcium C-React Prot Ext Range - Medical Decision Making Patient is evaluated for worsening redness and signs of infection of his right foot. He has a chronic wound that now seems to be worsening despite being on oral antibiotic therapy. His primary care doctor who is also been following him at the wound center was concerned that he now requires further evaluation for developing osteomyelitis as well as IV antibiotics. Case is discussed with podiatry, Dr. [place], as well as hospitalist. Podiatry he agrees with plan. He has discussed the case with the patient's vascular surgeon, Dr. Navas, who was concerned the patient ultimately require BKA versus AKA given his significant peripheral vascular disease. Patient is very resistant to the idea of an amputation. Patient is counseled that he might not ever fully recover with just IV antibiotics. 2 doctors that perform amputations, Dr. Dick and Dr. Brooks unable to be contacted at this time. I did speak with Ortho on-call, Dr. Mack who states that he does not perform amputations. Patient is otherwise hemodynamically stable in the emergency room. He is complaining of worsening pain and states he takes 2 Percocets at home for pain control. He is given 10 mg of oxycodone for pain in the emergency room. Patient started on IV Zosyn in the emergency room. He will be admitted for IV antibiotics and further discussion of possible amputation. In anticipation of a possible surgery, patient is swab for COVID 19 in the emergency room. ED Disposition - Plan for ED Patient: Diagnosis: Non-healing open wound of heel, Osteomyelitis of foot, right, acute, Cellulitis of foot, right, Type II diabetes mellitus, PAD (peripheral artery disease) Referrals: Mckayla iSlva DO [Primary Care Provider] -
--- NOTE | 2019-12-11 15:03 | RAD_ITS ---
STUDY: X-RAY - RIGHT FOOT CLINICAL: Male, 69 years old. PT REPORTS BEING SENT OVER FROM WOUND CENTER FOR INCREASING REDNESS AND SWELLING TO RIGHT FOOT. WOUND TO PLANTAR SURFACE OF RT HEEL. HX OF PERIPHERAL ARTERY DISEASE. TECHNIQUE: 3 view(s) of the foot. COMPARISON: 11/20/2019 FINDINGS: The bones are diffusely demineralized. Degenerative arthrosis noted all visualized joint spaces, most notably at the interphalangeal joint of the great toe, and in the PIP and DIP joints of the lesser toes. There has been previous surgical amputation of the distal aspect of the second metatarsal. There are stable calcaneal spurs. There is persistent generalized soft tissue swelling, and a previously described area of subcutaneous emphysema with volar to the calcaneus has worsened and is consistent with ulceration. There is subtle associated irregularity in the inferior calcaneus which has worsened slightly since previous study as it has become more ill-defined. This is concerning for possible area of osteomyelitis. There are vascular calcification suggesting underlying diabetes. RAD/Foot min 3 Views IMPRESSION: There is generalized soft tissue swelling. And an area of subcutaneous emphysema volar to the calcaneus has become more conspicuous and larger than on the previous study. This is consistent with an ulceration. Additionally, there is now worsening subtle erosive changes in the anterior inferior calcaneus which may represent early changes of osteomyelitis. This area of the calcaneus has become more fuzzy and ill-defined compared to the previous study. Profound osteopenia with polyarticular arthrosis Diffuse soft tissue swelling Stable calcaneal spurs Vascular calcifications Electronically Signed: Shamir Cano MD at 15:29 EDT , Service support ,
[2019-12-11 15:21] LABS: Anion Gap 6 (5-15); BUN 18 mg/dL (7-18); BUN/Creat Ratio 17.1 RATIO (10-20); Calcium,Total 8.6 mg/dL (8.5-10.1); Chloride 104 mmol/L (98-107); Creatinine, Serum 1.05 mg/dL (0.70-1.30); EST Glomerular Filtration Rate 74 mL/min (>60); Erythrocyte Sedimentation Rate 75 mm/hr (0-20); Est Glom Filt Rate - Afr Amer 90 mL/min (>60); Estimated Creatinine Clearance 64.24 ml/min; Glucose 175 mg/dL (74-106); Potassium 4.1 mmol/L (3.5-5.1); Sodium Level 137 mmol/L (136-145)
[2019-12-11 15:23] LABS: Absolute Lymphocyte Count 0.98 X10^3/uL (0.83-4.51); Absolute Neutrophil Count 7.8 X10^3/uL (2.0-7.7); Basophil# 0.06 X10^3/uL; Basophil% 0.6 % (0-1); Eosinophil# 0.24 X10^3/uL; Eosinophils% 2.3 % (0-5); Hematocrit 41.7 % (40-54); Hemoglobin 13.6 g/dL (13.0-16.5); Lymphocyte # 0.98 X10^3/ul (4.0); Lymphocyte % 9.6 % (19-41); Mean Corp Hgb Conc 32.6 g/dL (32-36); Mean Corpuscular Hgb 31.6 pg (27.0-32.0); Mean Platelet Vol. 9.4 fl (6.2-12.0); Monocyte# 1.05 X10^3/uL; Monocyte% 10.3 % (0-10); NRBC Flagged by Analyzer 0 % (0-5); Neutrophil # 7.83 X10^3/uL (2.7-7.7); Neutrophil % 76.6 % (47-70); Platelet Count 211 K/mm3 (150-450); RBC Distribution Width CV 13.8 % (11.6-14.6); RBC Distribution Width SD 49.3 fl (35.1-43.9); White Blood Count 10.2 K/mm3 (4.4-11.0)
[2019-12-11 15:26] LABS: International Normalized Ratio 1.1; Prothrombin Time (Protime)PT. 13.2 SECONDS (11.7-14.9)
[2019-12-11 15:27] LABS: Partial Thromboplast Time 31.9 Seconds (24.1-36.2)
[2019-12-11 15:30] LABS: Lactic Acid 1.7 mmol/L (0.4-1.9)
--- NOTE | 2019-12-11 16:29 | NURSING ---
MED SURG ACUTE OSTEOMYELITIS PAINTSIL
[2019-12-11] MEDS: oxyCODONE 5 MG Tablet 10 MG PO ×2 (16:35→21:25)
[2019-12-11 16:42] VITALS: BP 143/76; PULSE 91; PULSE 93; RESP 14; RESP 19; TEMP 36.9; O2SAT 93; O2SAT 94
--- NOTE | 2019-12-11 18:45 | PCM.HP.STD ---
<Jermaine Brewer - Last Filed: 12/11/19 18:45> Problem List (1) Osteomyelitis of foot, right, acute Status: Acute (2) PAD (peripheral artery disease) Status: Chronic (3) Type 2 diabetes, controlled, with ulcer of heel Status: Chronic (4) Coronary artery disease Status: Chronic Qualifiers: Coronary Disease-Associated Artery/Lesion type: [place] artery Associated angina: angina presence unspecified Comment: Status post CABG (5) Hyperlipidemia Status: Chronic (6) Hypertension Status: Chronic History of Present Illness Date of Admission: 12/11/19 Chief Complaint: R foot nonhealing wound The patient is a 69 year old M with pmhx of severe PAD, pt of Dr. Navas, DMt2, CAD with prior CABG, CVA, HTN, HLD who presented to the ER with worsening of his chronic right foot wound over the last 5 days. He has an open wound on the heel of his right foot with increasing erythema of the skin around it. He was seen at the wound center by Dr. Silva who sent him to the ER. He has failed outpatient antibiotics (cipro and flagyl) for this wound and has been told by podiatry, Dr. Navas, and a vascular surgeon that he needs and amputation. The patient states he wants IV antibiotics but that he is unwilling to consider an amputation at this time. He states that he does not need an amputation because he believes in chelation therapy that may help him. He has severe PAD and severe claudication when he walks. He denies fever/chills, no cough/sob. In the ER xray of the foot is suggestive of osteomyelitis however he does not appear septic. [] Past Medical History Past Medical History (Chronic Problems): Chronic Problems Type 2 diabetes, uncontrolled, with ulcer of heel (Chronic) right plantar heel Stage II pressure ulcer of sacral region (Chronic) Diabetes with ulcer of toe (Chronic) PAD (peripheral artery disease) (Chronic) Cellulitis and abscess of foot (Chronic) Type 2 diabetes, controlled, with ulcer of heel (Chronic) Non-healing open wound of heel (Chronic) Hyperlipidemia (Chronic) Peripheral vascular disease (Chronic) Hypertension (Chronic) Coronary artery disease (Chronic) Status post CABG Type II diabetes mellitus (Chronic) Valdez grade 3 Allergies morphine Allergy (Verified 12/11/19 16:26) PT UNSURE OF REACTION i was told after surgery that i shouldn't have it rivaroxaban [From Xarelto] Allergy (Verified 12/11/19 14:29) Other Home Medications: Ambulatory Orders Medication Instructions Recorded #17 3 tab PO DAILY 06/13/18 Aspirin [Lite Coat Aspirin] 325 mg PO DAILY 06/13/18 [id number] 1 units PO DAILY 06/13/18 Calcium Lactate 1 mg PO DAILY 06/13/18 Cat C 2 PO DAILY 06/13/18 Cat E2 8 PO DAILY 06/13/18 Cholecalciferol (Vitamin D3) 5,000 mg PO DAILY 06/13/18 [Vitamin D3] Inositol 2 tab PO PRN PRN 06/13/18 Koncentrated K 1 tab PO DAILY 06/13/18 Mag Lactate 800 mg PO DAILY 06/13/18 Nattokinase 2 tab PO DAILY 06/13/18 Potassium-Derick 1 tab PO DAILY 06/13/18 Clopidogrel Bisulfate [Clopidogrel] 75 mg PO DAILY 09/08/18 traMADol [Ultram] 50 - 100 mg PO PRN PRN 09/08/18 Aurum Metallicum 2 drp PO DAILY 02/13/19 Ciprofloxacin [Cipro] 500 mg PO BID 12/11/19 Metronidazole [Flagyl] 500 mg PO BID 12/11/19 Oxycodone [Oxyir] 10 mg PO Q4H PRN PRN 12/11/19 Venlafaxine HCl 37.5 mg PO DAILY 12/11/19 Surgical History: coronary bypass surgery, - - Recurrent back surgeries ?3, lower extremity bypass grafting Psychiatric History: No pertinent psych hx Lives: Spouse/ Significant Other Smoking Status: Never smoker Tobacco Use: Non-smoker Alcohol: None Drugs: None - *Family History Sibling History Items: Cancer Maternal History Items: Diabetes, Heart Disease, Hypertension, Stroke Paternal History Items: Diabetes, Heart Disease, Pulmonary Disease Review of Systems Constitutional: Denies: Chills, Fever, Weight Change HEENT: Denies: Head Aches, Sinus Congestion, Sinus Drainage Cardiovascular: Denies: Chest Pain, Palpitations Respiratory: Denies: Cough, Shortness of breath at rest, Sputum production Gastrointestinal: Denies: Abdominal Pain, Nausea, Vomiting Genitourinary: Denies: Dysuria Musculoskeletal: Denies: Joint Pain, Joint Tenderness Skin: Denies: Lesions, Rash, Wounds Neurological: Denies: Numbness, Tingling, Focal weakness Psychiatric: Denies: Anxiety, Depression, Homicidal Ideations, Suicidal Ideations Hematologic/ Lymphatic: Denies: Easy Bruising, Easy Bleeding VTE Information - Inpt Only VTE Present on Admission: No VTE Mechan Device Prophylaxis: None VTE Pharm Prophylaxis ordered?: Yes Patient Problems: Active and Suspected Problems Osteomyelitis of foot, right, acute (Acute) Cellulitis of foot, right (Acute) - Physical Exam Vitals/I&O's: Vital Signs Temp Pulse Resp BP Pulse Ox 98.5 F 93 19 H 143/76 H 94 12/11/19 16:42 12/11/19 16:42 12/11/19 16:42 12/11/19 16:42 12/11/19 16:42 Oxygen Delivery Method Room Air Weight: 160 lb Body Mass Index (BMI) 24.3 General: Alert, Oriented x3, Cooperative HEENT: Atraumatic, PERRLA, EOMI, Normocephalic Neck: Supple, No JVD, Negative Carotid Bruits Lungs: Clear to auscultation, Normal air movement Cardiovascular: Regular rate, No murmurs Abdomen: Bowel Sounds Present, Soft, Non Tender Extremities: No edema, Capillary Refill Less than 3 Seconds Skin: No rashes, No breakdown, Ulcer/ Wound - right heel open wound no drainage at this time, surrounding erythema. Musculoskeletal: No Tenderness to Palpation of Joints or Extremities Neurological: Cranial nerves II-XII grossly intact Psych/Mental Status: Normal Affect, Appropriate, Alert and oriented to time, place, person, mood and affect Laboratory Results 12/11/19 14:50: WBC 10.2, RBC 4.30 L, Hgb 13.6, Hct 41.7, MCV 97.0 H, MCH 31.6, MCHC 32.6, RDW Std Deviation 49.3 H, RDW Coeff of Meloide 13.8, Plt Count 211, MPV 9.4, Immature Gran % (Auto) 0.600, Neut % (Auto) 76.6 H, Lymph % (Auto) 9.6 L, [place] % (Auto) 10.3 H, Eos % (Auto) 2.3, Baso % (Auto) 0.6, Absolute Neuts (auto) 7.8 H, Absolute Lymphs (auto) 0.98, Nucleated RBC % 0, ESR 75 H 12/11/19 14:50: PT 13.2, INR 1.1, APTT 31.9 12/11/19 14:50: Sodium 137, Potassium 4.1, Chloride 104, Carbon Dioxide 27.0, Anion Gap 6, BUN 18, Creatinine 1.05, Estim Creat Clear Calc 64.24, Est GFR (MDRD) Af Amer 90, Est GFR (MDRD) Non-Af 74, BUN/Creatinine Ratio 17.1, Glucose 175 H, Calcium 8.6, C-React Prot Ext Range 83.80 H 12/11/19 14:50: Lactic Acid 1.7 12/11/19 16:05: COVID-19 (JG) Pending Assessment/Plan All Active Problems Osteomyelitis of foot, right, acute (Acute) Cellulitis of foot, right (Acute) Venous ulcer of right lower extremity without varicose veins (Resolved) Varicose 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 Acute cellulitis and osteomyelitis RLE 2/2, nonhealing right plantar wound - pt has been told by multiple physicians including 2 vascular surgeons that definitive treatment at this point will require amputation however the pt is reluctant to accept this. Start Vanc/Zosyn. Multiple prior bacteria on prior cultures. Reculture. Consult podiatry, infectious disease, orthopedics regarding need for amputation. No fever/leukocytosis. Xray shows osteo. CRP/ESR elevated. LA neg. Wound nurse consult. -Failed o/p conservative management, o/p abx, hyperbaric o2, wound care. 2. PAD - severe, follows Dr. Navas, has severe claudication 3. DMt2 - SSI. Last A1C 7.4. His home med list does not include diabetic agents. Will need to confirm if he is taking anything at home. 4. CAD with prior CABG - asa/plavix DVT ppx: lovenox This patient was seen by Jermaine Brewer PA-C under the supervision of Dr. Lozano. <Nayla Lozano - Last Filed: 12/11/19 21:32> History of Present Illness The patient is a 69 year old M [] Past Medical History Allergies morphine Allergy (Verified 12/11/19 16:26) PT UNSURE OF REACTION i was told after surgery that i shouldn't have it rivaroxaban [From Xarelto] Allergy (Verified 12/11/19 14:29) Other - Physical Exam Vitals/I&O's: Vital Signs Temp Pulse Resp BP Pulse Ox 99.7 F H 89 18 151/81 H 99 12/11/19 20:51 12/11/19 20:51 12/11/19 20:51 12/11/19 20:51 12/11/19 20:51 Oxygen Delivery Method Room Air Weight: 80.2 kg Body Mass Index (BMI) 26.8 Laboratory Results 12/11/19 14:50: WBC 10.2, RBC 4.30 L, Hgb 13.6, Hct 41.7, MCV 97.0 H, MCH 31.6, MCHC 32.6, RDW Std Deviation 49.3 H, RDW Coeff of Melodie 13.8, Plt Count 211, MPV 9.4, Immature Gran % (Auto) 0.600, Neut % (Auto) 76.6 H, Lymph % (Auto) 9.6 L, [place] % (Auto) 10.3 H, Eos % (Auto) 2.3, Baso % (Auto) 0.6, Absolute Neuts (auto) 7.8 H, Absolute Lymphs (auto) 0.98, Nucleated RBC % 0, ESR 75 H 12/11/19 14:50: PT 13.2, INR 1.1, APTT 31.9 12/11/19 14:50: Sodium 137, Potassium 4.1, Chloride 104, Carbon Dioxide 27.0, Anion Gap 6, BUN 18, Creatinine 1.05, Estim Creat Clear Calc 64.24, Est GFR (MDRD) Af Amer 90, Est GFR (MDRD) Non-Af 74, BUN/Creatinine Ratio 17.1, Glucose 175 H, Calcium 8.6, C-React Prot Ext Range 83.80 H 12/11/19 14:50: Lactic Acid 1.7 12/11/19 16:05: COVID-19 (JG) Pending Current Medications Acetaminophen (Tylenol) 650 mg PO Q6H PRN PRN PRN Reason: Pain Score 1-10/Temp > 100.7 F Al Hydroxide/Mg Hydroxide (Mylanta Ii) 30 ml PO Q6H PRN PRN PRN Reason: Gastric Burning Albuterol Sulfate (Ventolin Aerosols) 2.5 mg INHALATION Q2H PRN PRN PRN Reason: Shortness of Breath/Wheezing Aspirin (Aspirin) 325 mg PO DAILYCM RACHANA Clopidogrel Bisulfate (Plavix) 75 mg PO DAILY RACHANA Dextrose (D50w Syringe) 0 gm IV X1 PRN; Protocol PRN Reason: Hypoglycemia Enoxaparin Sodium (Lovenox) 40 mg SC DAILY RACHANA Glucagon () 1 mg IM .X1 PRN PRN Reason: Hypoglycemia Hydromorphone HCl (Dilaudid Inj) 1 mg IV Q4H PRN PRN PRN Reason: Pain Score 6-10/10 Vancomycin IV Pharmacy to Dose (1 ea/ Sodium Chloride) 500 mls @ 250 mls/hr IV PRN PRN; Protocol PRN Reason: Rx to Dose Piperacillin Sod/Tazobactam (Sod 3.375 gm/ Sodium Chloride) 50 mls @ 12.5 mls/hr IV Q8 RACHANA Sodium Chloride () 250 mls @ 15 mls/hr IV .[id number] PRN PRN Reason: Saline Flush Sodium Chloride () 250 mls @ 15 mls/hr IV .[id number] PRN PRN Reason: Additional IVPB Infusion Vancomycin HCl (Vancomycin) 1,000 mg in 200 mls @ 200 mls/hr IV Q12H RACHANA Vancomycin HCl 1,250 mg/ (Sodium Chloride) 275 mls @ 167 mls/hr IV X1 ONE Stop: 12/11/19 23:08 Insulin Human Lispro (Humalog Kwikpen (Bkc)) 0 unit SC ACHS RACHANA; Protocol Oxycodone HCl (Oxyir) 10 mg PO Q4H PRN PRN PRN Reason: Pain 1-10 or Fever Sodium Chloride () 10 - 40 ml IV UD PRN PRN Reason: SALINE FLUSH Venlafaxine HCl (Effexor Xr) 37.5 mg PO DAILY [facility] Assessment/Plan This patient was seen in conjunction with JIMMIE Carson. I have independently interviewed and examined the patient and reviewed pertinent historical, laboratory, and other data. Please refer to JIMMIE Carson note for his patient's presentation, findings, and recommendations. I have reviewed and his note and concur with his documentation 69-year-old male with past medical history of PAD status post multiple intervention, type II DM, CAD status post CABG who has a nonhealing ulcer ongoing for about 2 years. Patient has been following up with the wound clinic. He recently has been told by a physician in that he needs amputation. Patient declines states. He was seen in the wound center, wound appears to have been worsening with associated cellulitis and sent to the ED. He denied any fever or chills or shortness of breath or chest pain. He denied any sick contact. COVID testing was ordered from the ED for possible surgery. Patient declines to have his foot amputated for now. Discussed with Dr. [place] who was initially consulted by the ED. He had also discussed patient's vascular studies with his vascular surgeon, Dr. Navas who recommended amputation. Physical Exam: Gen: Comfortable, not pale, not jaundiced, flat affect CVS:HS I +II, regular, no murmurs RESP: CTA GI: BS present and normal, soft, nontender, no palpable organs EXT: Edema of the right foot and lower leg, with associated erythema of the foot and the distal one third of his leg, chronic right heel ulcer, with serosanguineous discharge ASSESSMENT: 1. Cellulitis/osteomyelitis of the right heel, nonhealing right heel wound, status post failed conservative management and hyperbaric oxygen 2. Severe PAD status post previous multiple intervention 3. Type II DM 4. CAD status post CABG 5. Code status - DNR-CCA Plan: Would admit for IV antibiotics -may need long-term IV antibiotics Continue on IV Zosyn and vancomycin Pharmacy to monitor Vanco troughs Podiatry consulted Continue on aspirin and Plavix Patient is not ready for amputation PT and OT to evaluate and treat Case management for discharge planning Consult ID on Saturday to see on Saturday if patient will stay this weekend Follow-up on COVID 19 testing Discussed in detail with the patient explaining the various types of CODE STATUS-full code, DNR CCA, DNR CC. Patient could not decide between DNR CCA and DNR CC. He stated however that he wants to be a DNR. Will make him a DNR-CCA Time spent discussing CODE STATUS 17 minutes Inpatient E&M: 99973 Init Hosp L3 Procedures: 21481 Advncd Care Plan 30 Min
[2019-12-11 20:34] VITALS: BMI 26.8
[2019-12-11 20:51] VITALS: BP 151/81; PULSE 89; RESP 18; TEMP 37.6; O2SAT 99
[2019-12-11] MEDS: Acetaminophen 325 MG Tablet 650 MG PO (21:25)
[2019-12-11 21:30] VITALS: RESP 16; O2SAT 97
--- NOTE | 2019-12-11 23:47 | PCM.RX.CS ---
Consult Pharmacy has been consulted to manage selected antiobiotic: Vancomycin Type of Consult: New start Suspected Infection: Osteomyelitis Prior Doses of Antibiotics Received/Current Regimen: Medications Vancomycin HCl (Vancomycin) 1,000 mg in 200 mls @ 200 mls/hr IV Q12H RACHANA Discontinued Medications Vancomycin HCl 1,250 mg/ (Sodium Chloride) 275 mls @ 167 mls/hr IV X1 ONE Stop: 12/11/19 23:08 Last Admin: 12/11/19 23:08 Dose: 167 mls/hr Labs: Sodium 137 mmol/L (136-145) 12/11/19 14:50 Potassium 4.1 mmol/L (3.5-5.1) 12/11/19 14:50 Chloride 104 mmol/L (98-107) 12/11/19 14:50 Carbon Dioxide 27.0 mmol/L (21.0-32.0) 12/11/19 14:50 Anion Gap 6 (5-15) 12/11/19 14:50 BUN 18 mg/dL (7-18) 12/11/19 14:50 Creatinine 1.05 mg/dL (0.70-1.30) 12/11/19 14:50 Est GFR (MDRD) Af Amer 90 mL/min (>60) 12/11/19 14:50 Est GFR (MDRD) Non-Af 74 mL/min (>60) 12/11/19 14:50 BUN/Creatinine Ratio 17.1 RATIO (10-20) 12/11/19 14:50 Glucose 175 mg/dL (74-106) H 12/11/19 14:50 Weight used for dosin kg Estimated Creatinine Clearance: 64 Goal Trough: 15-20 mcg/mL Pharmacy Plan for Drug Dosing: Pharmacy Service will continue to monitor and adjust dosing as required. Follow-Up Labs: Trough Vancomycin Labs to be done on [date and time ordered]: 12/13/19 @1030
[2019-12-12] VITALS (11 sets, daily range): BP systolic 127–156; BP diastolic 57–95; PULSE 67–88; RESP 16–18; TEMP 36.3–36.9; O2SAT 94–99; BMI 26.6
--- NOTE | 2019-12-12 | BON_PTH ---
PATIENT: TRAM RIVERA LOC: [facility] U#:[id number] AGE/SX: 69/M ROOM: [facility]311 RE12/11/[address]: Dr. Yasir Null MD : [id number] BED: 1 DIS: 12/15/2019 SPEC #: [id number] RECD: 12/14/19 08:27 STATUS: CHRISTIANO REQ #: [id number] KIYA: 12/12/19 00:[address]: Jenniffer Good DEPT: SURGICAL PATHOLOGY RECD BY: Michael Avendaño ENTERED: 12/14/19 08:49 SP TYPE: Bone OTHR DR: MD Dr. Yasir Quevedo MD Dr. Jeffrey Wunning, DPM Dr. Mckayla Silva, DO Tissues: Bone of foot, NOS Procedures: Decalcification bone/plaque Surgery Specimen Level IV Comments: @ Ordering doctor for DEC edited from to @ by BRITTANY at 12/14/19 1001 @ Ordering doctor for SUIII edited from to @ by BRITTANY at 12/14/19 1001 @ Submitting doctor edited from to @ by BRITTANY at 12/14/19 1001 HEADER OPERATION: Debridement wound PRE-OP DIAGNOSIS: Osteomyelitis right foot; cellulitis right foot TISSUE SUBMITTED: Right calcaneus bone MICROSCOPIC DIAGNOSIS Right calcaneus bone, biopsy: Reparative and reactive change. No evidence of osteomyelitis. AM:ann 12/17/19 MICROSCOPIC DESCRIPTION Slides are reviewed. GROSS DESCRIPTION Received in fixative is one container labeled with the patient's name and designated right calcaneus bone. The specimen consists of an elongated piece of knox bone measuring 1 cm in length and 0.3 cm in diameter. The entire specimen is submitted in one cassette after decalcification. / SJ:ann 12/14/19 TC:5 CPT: 46522, 30930
[2019-12-12 02:11] LABS: Bedside Glucose 132 mg/dL (70-110)
[2019-12-12] MEDS: oxyCODONE 5 MG Tablet 10 MG PO ×2 (06:37→20:49)
[2019-12-12] MEDS: Acetaminophen 325 MG Tablet 650 MG PO ×2 (06:37→21:11)
[2019-12-12 07:10] LABS: Bedside Glucose 117 mg/dL (70-110)
--- NOTE | 2019-12-12 07:47 | PCM.CONS.GEN ---
Problem List (1) Osteomyelitis of foot, right, acute Status: Acute (2) Cellulitis of foot, right Status: Acute (3) Peripheral vascular disease Status: Chronic (4) Type 2 diabetes, uncontrolled, with ulcer of heel Status: Chronic Comment: right plantar heel Reason for Consult Date of Consultation: 12/12/19 Reason for Consultation: right heel infected ulcer History of Present Illness: The patient is a 69 year old M with multiple comorbidities including diabetes, peripheral vascular disease, hypertension, CVA, coronary artery disease with prior CABG, hyperlipidemia was admitted for worsening status of right heel ulcer. He has had progressive erythema, pain, and swelling. He is seen at the wound healing center with Dr. Mckayla Silva. He has been dealing with this condition for approximately 2 years. He is also seeing vascular specialist Dr. Navas and a vascular surgeon as well who recommended an amputation. It is noted he had prior noninvasive vascular studies and also arterial Doppler studies performed here. He has arterial occlusions. His last reported ankle-brachial index on the right limb was 0.52 and he has a digital brachial index of less than 0.2. He has adamant about not proceeding with an amputation is recommended. He has rest pain and claudication. He denies fever, chill, nausea, vomiting at this time. There is also concern of bone infection given his chronic ulcer status, x-ray changes. It is noted he has been through hyperbaric oxygen therapy as well. I did review the case with Dr. Silva who informed me he is refusing amputation and he may benefit from a localized surgical debridement given his ulcer is tunneling now. He denies recent trauma. Past Medical History Past Medical History (Chronic Problems): Chronic Problems Type 2 diabetes, uncontrolled, with ulcer of heel (Chronic) right plantar heel Stage II pressure ulcer of sacral region (Chronic) Diabetes with ulcer of toe (Chronic) PAD (peripheral artery disease) (Chronic) Cellulitis and abscess of foot (Chronic) Type 2 diabetes, controlled, with ulcer of heel (Chronic) Non-healing open wound of heel (Chronic) Hyperlipidemia (Chronic) Peripheral vascular disease (Chronic) Hypertension (Chronic) Coronary artery disease (Chronic) Status post CABG Type II diabetes mellitus (Chronic) Valdez grade 3 Allergies morphine Allergy (Verified 12/11/19 16:26) PT UNSURE OF REACTION i was told after surgery that i shouldn't have it rivaroxaban [From Xarelto] Allergy (Verified 12/11/19 14:29) Other Home Medications: Ambulatory Orders Medication Instructions Recorded #17 3 tab PO DAILY 06/13/18 Aspirin [Lite Coat Aspirin] 325 mg PO DAILY 06/13/18 [id number] 1 units PO DAILY 06/13/18 Calcium Lactate 1 mg PO DAILY 06/13/18 Cat C 2 PO DAILY 06/13/18 Cat E2 8 PO DAILY 06/13/18 Cholecalciferol (Vitamin D3) 5,000 mg PO DAILY 06/13/18 [Vitamin D3] Inositol 2 tab PO PRN PRN 06/13/18 Koncentrated K 1 tab PO DAILY 06/13/18 Mag Lactate 800 mg PO DAILY 06/13/18 Nattokinase 2 tab PO DAILY 06/13/18 Potassium-Derick 1 tab PO DAILY 06/13/18 Clopidogrel Bisulfate [Clopidogrel] 75 mg PO DAILY 09/08/18 traMADol [Ultram] 50 - 100 mg PO PRN PRN 09/08/18 Aurum Metallicum 2 drp PO DAILY 02/13/19 Ciprofloxacin [Cipro] 500 mg PO BID 12/11/19 Metronidazole [Flagyl] 500 mg PO BID 12/11/19 Oxycodone [Oxyir] 10 mg PO Q4H PRN PRN 12/11/19 Venlafaxine HCl 37.5 mg PO DAILY 12/11/19 Surgical History: coronary bypass surgery, - - Recurrent back surgeries ?3, lower extremity bypass grafting Psychiatric History: No pertinent psych hx Lives: Spouse/ Significant Other Smoking Status: Never smoker Tobacco Use: Non-smoker Alcohol: None Drugs: None - *Family History Sibling History Items: Cancer Maternal History Items: Diabetes, Heart Disease, Hypertension, Stroke Paternal History Items: Diabetes, Heart Disease, Pulmonary Disease Review of Systems Constitutional: Denies: Chills, Fever HEENT: Denies: Sinus Drainage, Sore Throat Cardiovascular: Reports: Claudication Respiratory: Denies: Cough, Shortness of Breath Gastrointestinal: Denies: Nausea, Vomiting Musculoskeletal: Reports: Foot Pain, Leg Pain. Denies: Joint Tenderness Skin: Reports: Skin Changes, Wounds Neurological: Denies: Numbness Patient Problems: Active and Suspected Problems Osteomyelitis of foot, right, acute (Acute) Cellulitis of foot, right (Acute) Type 2 diabetes mellitus with diabetic polyneuropathy (Acute) - Physical Exam Vitals/I&O's: Vital Signs Temp Pulse Resp BP Pulse Ox 97.9 F 80 16 127/57 H 98 12/12/19 02:37 12/12/19 02:37 12/12/19 02:37 12/12/19 02:37 12/12/19 02:37 Oxygen Delivery Method Room Air Weight: 79.6 kg Body Mass Index (BMI) 26.8 Intake and Output for Last 24 Hours 12/10/19 12/11/19 12/12/19 23:59 23:59 23:59 Intake Total 50.25 / 250.25 590.75 / 590.75 Balance 50.25 / 250.25 590.75 / 590.75 General: Alert, Oriented x3, Cooperative HEENT: Atraumatic Extremities: No cyanosis, Capillary Refill Less than 3 Seconds - Digits of the right foot, No Calf Tenderness, Diminished Peripheral Pulses - Nonpalpable pedal pulses. The foot is actually warm to touch ranging from the heel to the digits, Tenderness - Pain with foot manipulation and ulcer manipulation even during culture process, - - No hair to the leg or foot right Skin: Ulcer/ Wound - Skin discontinuity plantar heel probes to deep periosteal ribbon bone level to the central heel. There is no purulence or odor on expression. There is adjacent erythema and that is diffuse and faint and also edema extending to the ankle level. There is no bogginess or fluctuance on palpation. There is no eschar necrosis visualized. There is no maceration or callus formation. Musculoskeletal: Muscle Wasting, - - Ankle-foot orthotic device noted left lower extremity Neurological: Sensory exam intact to light touch and pain Psych/Mental Status: Normal Affect, Appropriate Laboratory Results 12/11/19 14:50: WBC 10.2, RBC 4.30 L, Hgb 13.6, Hct 41.7, MCV 97.0 H, MCH 31.6, MCHC 32.6, RDW Std Deviation 49.3 H, RDW Coeff of Melodie 13.8, Plt Count 211, MPV 9.4, Immature Gran % (Auto) 0.600, Neut % (Auto) 76.6 H, Lymph % (Auto) 9.6 L, [place] % (Auto) 10.3 H, Eos % (Auto) 2.3, Baso % (Auto) 0.6, Absolute Neuts (auto) 7.8 H, Absolute Lymphs (auto) 0.98, Nucleated RBC % 0, ESR 75 H 12/11/19 14:50: PT 13.2, INR 1.1, APTT 31.9 12/11/19 14:50: Sodium 137, Potassium 4.1, Chloride 104, Carbon Dioxide 27.0, Anion Gap 6, BUN 18, Creatinine 1.05, Estim Creat Clear Calc 64.24, Est GFR (MDRD) Af Amer 90, Est GFR (MDRD) Non-Af 74, BUN/Creatinine Ratio 17.1, Glucose 175 H, Calcium 8.6, C-React Prot Ext Range 83.80 H 12/11/19 14:50: Lactic Acid 1.7 12/11/19 16:05: COVID-19 (JG) Pending 12/11/19 23:17: POC Glucose 132 H 12/12/19 06:51: POC Glucose 117 H 12/12/19 07:25: WBC Pending, RBC Pending, Hgb Pending, Hct Pending, MCV Pending, MCH Pending, MCHC Pending, RDW Std Deviation Pending, RDW Coeff of Melodie Pending, Plt Count Pending, Neut % (Auto) Pending, Absolute Neuts (auto) Pending 12/12/19 07:25: Sodium Pending, Potassium Pending, Chloride Pending, Carbon Dioxide Pending, Anion Gap Pending, BUN Pending, Creatinine Pending, Est GFR (MDRD) Af Amer Pending, Est GFR (MDRD) Non-Af Pending, BUN/Creatinine Ratio Pending, Glucose Pending, Calcium Pending, Total Bilirubin Pending, AST Pending, ALT Pending, Alkaline Phosphatase Pending, Total Protein Pending, Albumin Pending Current Medications Acetaminophen (Tylenol) 650 mg PO Q6H PRN PRN PRN Reason: Pain Score 1-10/Temp > 100.7 F Last Admin: 12/12/19 06:37 Dose: 650 mg Documented by: Al Hydroxide/Mg Hydroxide (Mylanta Ii) 30 ml PO Q6H PRN PRN PRN Reason: Gastric Burning Albuterol Sulfate (Ventolin Aerosols) 2.5 mg INHALATION Q2H PRN PRN PRN Reason: Shortness of Breath/Wheezing [facility]ir[facility]in) [facility] Clopidogrel Bisulfate (Plavix) 75 mg PO DAILY [facility] Dextrose (D50w Syringe) 0 gm IV X1 PRN; Protocol PRN Reason: Hypoglycemia Enoxaparin Sodium (Lovenox) 40 mg SC DAILY [facility] Glucagon () 1 mg IM .X1 PRN PRN Reason: Hypoglycemia Hydromorphone HCl (Dilaudid Inj) 1 mg IV Q4H PRN PRN PRN Reason: Pain Score 6-10/10 Vancomycin IV Pharmacy to Dose (1 ea/ Sodium Chloride) 500 mls @ 250 mls/hr IV PRN PRN; Protocol PRN Reason: Rx to Dose Piperacillin Sod/Tazobactam (Sod 3.375 gm/ Sodium Chloride) 50 mls @ 12.5 mls/hr IV Q8 [facility] Last Admin: 12/12/19 06:30 Dose: 12.5 mls/hr Documented by: Sodium Chloride () 250 mls @ 15 mls/hr IV .[id number] PRN PRN Reason: Saline Flush Last Infusion: 12/12/19 06:34 Dose: 0 mls/hr Documented by: Sodium Chloride () 250 mls @ 15 mls/hr IV .[id number] PRN PRN Reason: Additional IVPB Infusion Vancomycin HCl (Vancomycin) 1,000 mg in 200 mls @ 200 mls/hr IV Q12H [facility] Insulin Human Lispro (Humalog Kwikpen (Bkc)) 0 unit SC ACHS [facility]; Protocol Last Admin: 12/12/19 06:51 Dose: Not Given Documented by: Nutritional Formula (Lactose Free) (Glucerna Shake) 120 ml PO 4X/DAY [facility] Oxycodone HCl (Oxyir) 10 mg PO Q4H PRN PRN PRN Reason: Pain 1-10 or Fever Last Admin: 12/12/19 06:37 Dose: 10 mg Documented by: Sodium Chloride () 10 - 40 ml IV UD PRN PRN Reason: SALINE FLUSH Venlafaxine HCl (Effexor Xr) 37.5 mg PO DAILY [facility] Assessment/Plan All Active Problems Osteomyelitis of foot, right, acute (Acute) Cellulitis of foot, right (Acute) Type 2 diabetes mellitus with diabetic polyneuropathy (Acute) Venous ulcer of right lower extremity without varicose veins (Resolved) Varicose veins of right lower extremity with ulcer (Resolved) 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 Silva. He was admitted for IV antibiotics. His blood cultures are pending. His white blood cell count has reduced from 10.2 to 6.2 overnight. His ESR 75. C-reactive protein is 83.8. His x-rays demonstrate some radiolucency in the calcaneus. There is no soft tissue emphysema, foreign body, or pepper osseous destruction or fracture dislocation. Xrays of the ankle are pending. I also did obtain a deep wound culture including aerobic and anaerobic to the right heel this morning. We discussed options of treatment including local wound care and antibiotics, continue hyperbaric oxygen therapy, or the below-knee amputation which has been recommended by previous providers. Surgical debridement and a bone biopsy were also offered. He is amendable to proceed forward with this as this it will be more aggressive and we will be able to gather more information compared to clinical debridements when done in the operating room. He understands he is at a very high risk for continued nonhealing however refuses amputation at this time. A dressing was reapplied with Betadine with gauze. This is not an elective surgery. I will confirm operating room availability. He is tentatively going to proceed forward between 14:00 and 17:00. The patient understands there are no guarantees. The indication, planned procedure, possible benefits, risk, complications and anticipated healing time management were discussed in detail. He understands risk and complications may include but are not limited to the following: pain, swelling, need for further surgery, continued delayed or nonhealing, continued infection, blood clot, allergic reaction, loss of limb, function, life. Surgical consent will be signed. He is n.p.o. It is okay to continue on Plavix during the procedure. The consent will be signed for right debridement of ulcer with bone biopsy of the calcaneus. Hospitalist, Dr. Lennon, was also present during the time of the evaluation and is amenable to have this patient proceed forward with this aforementioned procedure. Medical management is appreciated. Thank you for the consultation. Please not hesitate to call if you have any questions. Jenniffer Good DPM, [facility] [phone] Procedure Criteria Procedure Type: Elective COVID Risk Discussion: The surgeon/proceduralist and patient have discussed in detail the risk of exposure to and/or potential harm posed by the COVID-19 virus with having a surgery/procedure at this time versus the risk of delaying the surgery/procedure. It is not possible to know either the risk of delaying the surgery or procedure or chance of getting an infection with perfect accuracy, but a joint decision was made between the patient and the surgeon/proceduralist to proceed at this time with the scheduled surgery/procedure as indicated on the consent form.
[2019-12-12 07:49] LABS: ALB/GLOB Ratio 0.7 RATIO (0.9-2.4); AST(SGOT) 10 U/L (15-37); Absolute Lymphocyte Count 1.17 X10^3/uL (0.83-4.51); Alanine Aminotransfer ALT/SGPT 12 U/L (16-61); Albumin, Serum 2.6 g/dL (3.2-5.0); Alkaline Phosphatase 66 U/L (45-117); Anion Gap 5 (5-15); BUN 15 mg/dL (7-18); BUN/Creat Ratio 15.3 RATIO (10-20); Basophil# 0.04 X10^3/uL; Basophil% 0.6 % (0-1); Calcium,Total 8.5 mg/dL (8.5-10.1); Chloride 109 mmol/L (98-107); Creatinine, Serum 0.98 mg/dL (0.70-1.30); EST Glomerular Filtration Rate 81 mL/min (>60); Eosinophil# 0.18 X10^3/uL; Eosinophils% 2.9 % (0-5); Est Glom Filt Rate - Afr Amer 98 mL/min (>60); Estimated Creatinine Clearance 68.83 ml/min; Globulin 3.9 g/dL (2.2-4.2); Glucose 125 mg/dL (74-106); Hematocrit 40.3 % (40-54); Lymphocyte # 1.17 X10^3/ul (4.0); Lymphocyte % 18.9 % (19-41); Mean Corp Hgb Conc 32.3 g/dL (32-36); Mean Corpuscular Hgb 31.6 pg (27.0-32.0); Mean Corpuscular Volume 98.1 fL (80-94); Mean Platelet Vol. 9.5 fl (6.2-12.0); Monocyte% 12.9 % (0-10); NRBC Flagged by Analyzer 0 % (0-5); Neutrophil # 3.96 X10^3/uL (2.7-7.7); Neutrophil % 63.9 % (47-70); Platelet Count 196 K/mm3 (150-450); Protein, Total 6.5 g/dL (6.4-8.2); RBC Distribution Width CV 13.6 % (11.6-14.6); RBC Distribution Width SD 49.2 fl (35.1-43.9); Red Blood Count 4.11 M/mm3 (4.6-6.2); Sodium Level 139 mmol/L (136-145); White Blood Count 6.2 K/mm3 (4.4-11.0)
--- NOTE | 2019-12-12 09:38 | RAD_ITS ---
STUDY: X-RAY - RIGHT ANKLE REASON FOR EXAM: Male, 69 years old. OSTEOMYELITIS TECHNIQUE: 3 view(s) of the ankle. COMPARISON: None. FINDINGS: Normal visualized distal tibia and fibula. Normal medial and lateral malleoli. Normal tibiotalar articulation and ankle mortise. Generalized osteopenia. There is a plantar enthesophyte. There is a plantar soft tissue defect with lucency adjacent to the calcaneus. The posterior calcaneus is sclerosed with sharply defined cortex. Adjacent to the soft tissue defect is sclerosis of the calcaneus with loss of sharp delineation. The visualized subtalar, talonavicular, calcaneocuboid and tarsal articulations are normal. Soft tissue lucency and disruption along the plantar calcaneus. Vascular surgical clips along the mid and distal medial tibia. Vascular calcification. RAD/Ankle min 3 Views IMPRESSION: Changes involving the plantar calcaneus suspicious for early osteomyelitis. Osteopenia, vascular calcification, soft tissue ulceration and prior surgical intervention. Electronically Signed: Felecia Lizama MD at 4:19 EDT , Service support ,
--- NOTE | 2019-12-12 10:01 | EKG12_ITS ---
Test Reason : PRE OP Blood Pressure : / mmHG Vent. Rate : 061 BPM Atrial Rate : 061 BPM P-R Int : 154 ms QRS Dur : 132 ms QT Int : 440 ms P-R-T Axes : 029 162 095 degrees QTc Int : 442 ms Normal sinus rhythm Right bundle branch block Left posterior fascicular block Bifascicular block Abnormal ECG When compared with ECG of 19-DEC-2017 16:57, Nonspecific T wave abnormality has replaced inverted T waves in Anterolateral leads Confirmed by WILLOW MARIA ([id number]), editor publications CAROLYN HYLTON ([id number]) on 12/17/2019 12:19:36 PM Referred By: EMIR Confirmed By:WILLOW MARIA
--- NOTE | 2019-12-12 10:03 | RAD_ITS ---
STUDY: X-RAY CHEST REASON FOR EXAM: Male, 69 years old. Pre-op. TECHNIQUE: Single AP portable view of the chest. COMPARISON: July 24, 2019. FINDINGS: The lungs are clear and expanded. There is no demonstrated pleural abnormality. Sternal cerclage wires are present from a prior sternotomy. The heart is normal in size. Normal mediastinum and isaak. Normal visualized pulmonary arteries. Normal visualized aortic arch and descending thoracic aorta. The thoracic spine is obscured by the mediastinum. There is degenerative osteoarthritis of the bilateral shoulders. There is no demonstrated abnormality of the visualized soft tissue structures of the upper abdomen. RAD/Chest 1 View IMPRESSION: No acute cardiopulmonary disease or major interval change. Electronically Signed: Clovis Fitzgerald DO at 17:09 EDT Tel [phone], Service support ,
--- NOTE | 2019-12-12 10:18 | NURSING ---
CONSENT FOR SURGERY VERBALLY SIGNED OVER PHONE
[2019-12-12 11:14] LABS: Hemoglobin A1c 6.8 % (3.8-5.6)
--- NOTE | 2019-12-12 11:30 | NURSING ---
PT STATED WILL BE HERE FOR SURGERY TODAY, NO NEED TO CALL
[2019-12-12 11:31] LABS: Bedside Glucose 159 mg/dL (70-110)
--- NOTE | 2019-12-12 12:07 | RAD_ITS ---
STUDY: X-RAY - RIGHT CALCANEUS REASON FOR EXAM: Male, 69 years old. right heel debridement TECHNIQUE: Single view(s) of the calcaneus were obtained. COMPARISON: None. FINDINGS: Single lateral image was submitted, as radiology support for c-arm imaging in the operating room. This is not a diagnostic examination. Images for documentation purposes only. Fluoroscopy time if reported: 5 seconds. Four images acquired, total DAP 0.7004 cGycm2, total air Kerma 0.0417 mGy. RAD/Calcaneus min 2 Views IMPRESSION: Intraoperative fluoroscopic image guidance. Electronically Signed: Felecia Lizama MD at 5:01 EDT , Service support ,
--- NOTE | 2019-12-12 13:44 | PCM.PN.HOSP ---
<Jermaine Brewer - Last Filed: 12/12/19 13:44> Patient Problems: Active and Suspected Problems Osteomyelitis of foot, right, acute (Acute) Cellulitis of foot, right (Acute) Type 2 diabetes mellitus with diabetic polyneuropathy (Acute) Reason for Visit: osteomyelitis Subjective: Pt resting comfortably in bed NAD. agreeable to debridement. No fever/chills. Minimal pain. No cough/sob/cp. No LE edema. Vitals/I&O's: Vital Signs Temp Pulse Resp BP Pulse Ox 98.2 F 71 16 132/81 H 99 12/12/19 11:21 12/12/19 11:21 12/12/19 11:21 12/12/19 11:21 12/12/19 11:21 Oxygen Delivery Method Room Air Weight: 175 lb 7.807 oz Body Mass Index (BMI) 26.6 Intake and Output for Last 24 Hours 12/10/19 12/11/19 12/12/19 23:59 23:59 23:59 Intake Total 50.25 / 250.25 640.75 / 640.75 Balance 50.25 / 250.25 640.75 / 640.75 General: Alert, Oriented x3, Cooperative HEENT: Atraumatic, PERRLA, EOMI, Normocephalic Neck: Supple, No JVD, Negative Carotid Bruits Lungs: Clear to auscultation, Normal air movement Cardiovascular: Regular rate, No murmurs Abdomen: Bowel Sounds Present, Soft, Non Tender Extremities: No edema, Diminished Peripheral Pulses Skin: No rashes, No breakdown Musculoskeletal: No Tenderness to Palpation of Joints or Extremities Neurological: Cranial nerves II-XII grossly intact Psych/Mental Status: Normal Affect, Appropriate, Alert and oriented to time, place, person, mood and affect Microbiology Past 72 Hours 12/12/19 09:00 Wound - Right Foot Gram Stain - Final Laboratory Results 12/11/19 14:50: WBC 10.2, RBC 4.30 L, Hgb 13.6, Hct 41.7, MCV 97.0 H, MCH 31.6, MCHC 32.6, RDW Std Deviation 49.3 H, RDW Coeff of Melodie 13.8, Plt Count 211, MPV 9.4, Immature Gran % (Auto) 0.600, Neut % (Auto) 76.6 H, Lymph % (Auto) 9.6 L, [place] % (Auto) 10.3 H, Eos % (Auto) 2.3, Baso % (Auto) 0.6, Absolute Neuts (auto) 7.8 H, Absolute Lymphs (auto) 0.98, Nucleated RBC % 0, ESR 75 H 12/11/19 14:50: PT 13.2, INR 1.1, APTT 31.9 12/11/19 14:50: Sodium 137, Potassium 4.1, Chloride 104, Carbon Dioxide 27.0, Anion Gap 6, BUN 18, Creatinine 1.05, Estim Creat Clear Calc 64.24, Est GFR (MDRD) Af Amer 90, Est GFR (MDRD) Non-Af 74, BUN/Creatinine Ratio 17.1, Glucose 175 H, Calcium 8.6, C-React Prot Ext Range 83.80 H 12/11/19 14:50: Lactic Acid 1.7 12/11/19 16:05: COVID-19 (JG) Pending 12/11/19 16:05: COVID-19 (JG) Pending 12/11/19 23:17: POC Glucose 132 H 12/12/19 06:51: POC Glucose 117 H 12/12/19 07:25: WBC 6.2, RBC 4.11 L, Hgb 13.0, Hct 40.3, MCV 98.1 H, MCH 31.6, MCHC 32.3, RDW Std Deviation 49.2 H, RDW Coeff of Melodie 13.6, Plt Count 196, MPV 9.5, Immature Gran % (Auto) 0.800, Neut % (Auto) 63.9, Lymph % (Auto) 18.9 L, [place] % (Auto) 12.9 H, Eos % (Auto) 2.9, Baso % (Auto) 0.6, Absolute Neuts (auto) 4.0, Absolute Lymphs (auto) 1.17, Nucleated RBC % 0 12/12/19 07:25: Sodium 139, Potassium 4.0, Chloride 109 H, Carbon Dioxide 25.0, Anion Gap 5, BUN 15, Creatinine 0.98, Estim Creat Clear Calc 68.83, Est GFR (MDRD) Af Amer 98, Est GFR (MDRD) Non-Af 81, BUN/Creatinine Ratio 15.3, Glucose 125 H, Calcium 8.5, Total Bilirubin 0.90, AST 10 L, ALT 12 L, Alkaline Phosphatase 66, Total Protein 6.5, Albumin 2.6 L, Globulin 3.9, Albumin/Globulin Ratio 0.7 L 12/12/19 07:25: Hemoglobin A1c 6.8 H 12/12/19 11:19: POC Glucose 159 H Current Medications Acetaminophen (Tylenol) 650 mg PO Q6H PRN PRN PRN Reason: Pain Score 1-10/Temp > 100.7 F Last Admin: 12/12/19 06:37 Dose: 650 mg Documented by: Al Hydroxide/Mg Hydroxide (Mylanta Ii) 30 ml PO Q6H PRN PRN PRN Reason: Gastric Burning Albuterol Sulfate (Ventolin Aerosols) 2.5 mg INHALATION Q2H PRN PRN PRN Reason: Shortness of Breath/Wheezing Aspirin (Aspirin) 325 mg PO DAILYCM [facility] Last Admin: 12/12/19 09:31 Dose: Not Given Documented by: Clopidogrel Bisulfate (Plavix) 75 mg PO DAILY [facility] Last Admin: 12/12/19 09:32 Dose: Not Given Documented by: Dextrose (D50w Syringe) 0 gm IV X1 PRN; Protocol PRN Reason: Hypoglycemia Enoxaparin Sodium (Lovenox) 40 mg SC DAILY [facility] Last Admin: 12/12/19 09:32 Dose: Not Given Documented by: Glucagon () 1 mg IM .X1 PRN PRN Reason: Hypoglycemia Hydromorphone HCl (Dilaudid Inj) 1 mg IV Q4H PRN PRN PRN Reason: Pain Score 6-10/10 Vancomycin IV Pharmacy to Dose (1 ea/ Sodium Chloride) 500 mls @ 250 mls/hr IV PRN PRN; Protocol PRN Reason: Rx to Dose Piperacillin Sod/Tazobactam (Sod 3.375 gm/ Sodium Chloride) 50 mls @ 12.5 mls/hr IV Q8 [facility] Last Infusion: 12/12/19 10:32 Dose: Infused Documented by: Sodium Chloride () 250 mls @ 15 mls/hr IV .[id number] PRN PRN Reason: Saline Flush Last Infusion: 12/12/19 06:34 Dose: 0 mls/hr Documented by: Sodium Chloride () 250 mls @ 15 mls/hr IV .[id number] PRN PRN Reason: Additional IVPB Infusion Vancomycin HCl (Vancomycin) 1,000 mg in 200 mls @ 200 mls/hr IV Q12H [facility] Insulin Human Lispro (Humalog Kwikpen (Bkc)) 0 unit SC ACHS [facility]; Protocol Last Admin: 12/12/19 11:23 Dose: Not Given Documented by: Nutritional Formula (Singh - [place] Flavor) 1 packet PO BIDCM [facility] Oxycodone HCl (Oxyir) 10 mg PO Q4H PRN PRN PRN Reason: Pain 1-10 or Fever Last Admin: 12/12/19 06:37 Dose: 10 mg Documented by: Sodium Chloride () 10 - 40 ml IV UD PRN PRN Reason: SALINE FLUSH Venlafaxine HCl (Effexor Xr) 37.5 mg PO DAILY [facility] Last Admin: 12/12/19 09:31 Dose: Not Given Documented by: STROKE Vital Signs/Narrative: Vital Signs Temp Pulse Resp BP Pulse Ox 12/12/19 11:21 98.2 F 71 16 132/81 H 99 Medical Necessity - Tobacco Use Smoking Status: Never smoker Tobacco Use: Non-smoker Assessment/Plan All Active Problems Osteomyelitis of foot, right, acute (Acute) Cellulitis of foot, right (Acute) Type 2 diabetes mellitus with diabetic polyneuropathy (Acute) Venous ulcer of right lower extremity without varicose veins (Resolved) Varicose 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 Acute cellulitis and osteomyelitis RLE 2/2, nonhealing right plantar wound - continue vanc/zosyn. debridement per podiatry today. likely needs amputation at some point but pt not agreeable. BlCx pending. Wound cx pending. 2. PAD - severe, follows Dr. Navas, has severe claudication 3. DMt2 - SSI. Last A1C 7.4. he is not on home diabetes meds. 4. CAD with prior CABG - asa/plavix DVT ppx: lovenox This patient was seen by Jermaine Brewer PA-C under the supervision of Dr. Lennon <Gen Lennon - Last Filed: 12/12/19 14:40> Vitals/I&O's: Vital Signs Temp Pulse Resp BP Pulse Ox 36.8 C 71 16 132/81 H 99 12/12/19 11:21 12/12/19 11:21 12/12/19 11:21 12/12/19 11:21 12/12/19 11:21 Oxygen Delivery Method Room Air Weight: 79.6 kg Body Mass Index (BMI) 26.6 Intake and Output for Last 24 Hours 12/10/19 12/11/19 12/12/19 23:59 23:59 23:59 Intake Total 50.25 / 250.25 640.75 / 640.75 Balance 50.25 / 250.25 640.75 / 640.75 General: Alert, Cooperative HEENT: Atraumatic, Normocephalic Neck: No Nodes, Thyroid Normal Size and Texture Lungs: Clear to auscultation, Normal air movement, No rhonchi, No wheeze Cardiovascular: Regular rate, No murmurs Abdomen: Bowel Sounds Present, Soft, Non Tender Extremities: No edema, Diminished Peripheral Pulses Skin: No rashes, - - deep ulcer on right heel Psych/Mental Status: Normal Affect, Appropriate Microbiology Past 72 Hours 12/12/19 09:00 Wound - Right Foot Gram Stain - Final Laboratory Results 12/11/19 14:50: WBC 10.2, RBC 4.30 L, Hgb 13.6, Hct 41.7, MCV 97.0 H, MCH 31.6, MCHC 32.6, RDW Std Deviation 49.3 H, RDW Coeff of Melodie 13.8, Plt Count 211, MPV 9.4, Immature Gran % (Auto) 0.600, Neut % (Auto) 76.6 H, Lymph % (Auto) 9.6 L, [place] % (Auto) 10.3 H, Eos % (Auto) 2.3, Baso % (Auto) 0.6, Absolute Neuts (auto) 7.8 H, Absolute Lymphs (auto) 0.98, Nucleated RBC % 0, ESR 75 H 12/11/19 14:50: PT 13.2, INR 1.1, APTT 31.9 12/11/19 14:50: Sodium 137, Potassium 4.1, Chloride 104, Carbon Dioxide 27.0, Anion Gap 6, BUN 18, Creatinine 1.05, Estim Creat Clear Calc 64.24, Est GFR (MDRD) Af Amer 90, Est GFR (MDRD) Non-Af 74, BUN/Creatinine Ratio 17.1, Glucose 175 H, Calcium 8.6, C-React Prot Ext Range 83.80 H 12/11/19 14:50: Lactic Acid 1.7 12/11/19 16:05: COVID-19 (JG) Pending 12/11/19 16:05: COVID-19 (JG) Pending 12/11/19 23:17: POC Glucose 132 H 12/12/19 06:51: POC Glucose 117 H 12/12/19 07:25: WBC 6.2, RBC 4.11 L, Hgb 13.0, Hct 40.3, MCV 98.1 H, MCH 31.6, MCHC 32.3, RDW Std Deviation 49.2 H, RDW Coeff of Melodie 13.6, Plt Count 196, MPV 9.5, Immature Gran % (Auto) 0.800, Neut % (Auto) 63.9, Lymph % (Auto) 18.9 L, [place] % (Auto) 12.9 H, Eos % (Auto) 2.9, Baso % (Auto) 0.6, Absolute Neuts (auto) 4.0, Absolute Lymphs (auto) 1.17, Nucleated RBC % 0 12/12/19 07:25: Sodium 139, Potassium 4.0, Chloride 109 H, Carbon Dioxide 25.0, Anion Gap 5, BUN 15, Creatinine 0.98, Estim Creat Clear Calc 68.83, Est GFR (MDRD) Af Amer 98, Est GFR (MDRD) Non-Af 81, BUN/Creatinine Ratio 15.3, Glucose 125 H, Calcium 8.5, Total Bilirubin 0.90, AST 10 L, ALT 12 L, Alkaline Phosphatase 66, Total Protein 6.5, Albumin 2.6 L, Globulin 3.9, Albumin/Globulin Ratio 0.7 L 12/12/19 07:25: Hemoglobin A1c 6.8 H 12/12/19 11:19: POC Glucose 159 H Current Medications Acetaminophen (Tylenol) 650 mg PO Q6H PRN PRN PRN Reason: Pain Score 1-10/Temp > 100.7 F Last Admin: 12/12/19 06:37 Dose: 650 mg Documented by: Al Hydroxide/Mg Hydroxide (Mylanta Ii) 30 ml PO Q6H PRN PRN PRN Reason: Gastric Burning Albuterol Sulfate (Ventolin Aerosols) 2.5 mg INHALATION Q2H PRN PRN PRN Reason: Shortness of Breath/Wheezing Aspirin (Aspirin) 325 mg PO DAILYCM [facility] Last Admin: 12/12/19 09:31 Dose: Not Given Documented by: Clopidogrel Bisulfate (Plavix) 75 mg PO DAILY [facility] Last Admin: 12/12/19 09:32 Dose: Not Given Documented by: Dextrose (D50w Syringe) 0 gm IV X1 PRN; Protocol PRN Reason: Hypoglycemia Enoxaparin Sodium (Lovenox) 40 mg SC DAILY [facility] Last Admin: 12/12/19 09:32 Dose: Not Given Documented by: Glucagon () 1 mg IM .X1 PRN PRN Reason: Hypoglycemia Hydromorphone HCl (Dilaudid Inj) 1 mg IV Q4H PRN PRN PRN Reason: Pain Score 6-10/10 Vancomycin IV Pharmacy to Dose (1 ea/ Sodium Chloride) 500 mls @ 250 mls/hr IV PRN PRN; Protocol PRN Reason: Rx to Dose Piperacillin Sod/Tazobactam (Sod 3.375 gm/ Sodium Chloride) 50 mls @ 12.5 mls/hr IV Q8 [facility] Last Infusion: 12/12/19 10:32 Dose: Infused Documented by: Sodium Chloride () 250 mls @ 15 mls/hr IV .[id number] PRN PRN Reason: Saline Flush Last Infusion: 12/12/19 06:34 Dose: 0 mls/hr Documented by: Sodium Chloride () 250 mls @ 15 mls/hr IV .[id number] PRN PRN Reason: Additional IVPB Infusion Vancomycin HCl (Vancomycin) 1,000 mg in 200 mls @ 200 mls/hr IV Q12H [facility] Insulin Human Lispro (Humalog Kwikpen (Bkc)) 0 unit SC ACHS [facility]; Protocol Last Admin: 12/12/19 11:23 Dose: Not Given Documented by: Nutritional Formula (Singh - [place] Flavor) 1 packet PO BIDCM [facility] Oxycodone HCl (Oxyir) 10 mg PO Q4H PRN PRN PRN Reason: Pain 1-10 or Fever Last Admin: 12/12/19 06:37 Dose: 10 mg Documented by: Sodium Chloride () 10 - 40 ml IV UD PRN PRN Reason: SALINE FLUSH Venlafaxine HCl (Effexor Xr) 37.5 mg PO DAILY [facility] Last Admin: 12/12/19 09:31 Dose: Not Given Documented by: STROKE Vital Signs/Narrative: Vital Signs Temp Pulse Resp BP Pulse Ox 12/12/19 11:21 36.8 C 71 16 132/81 H 99 Assessment/Plan Patient seen and examined independently. Data reviewed. I agree with the above note by the physician paperhanger assistant. 1. Acute cellulitis and osteomyelitis of the right lower extremity. Patient has had a chronic right heel ulcer for years now. Patient has done extensive treatment with hyperbaric oxygen as well as oral antibiotics. Patient is adamant that he does not want an amputation at this time. Plan is to have him debrided with podiatry today, continue with antibiotics and follow-up cultures. I have held antibiotics for now anticipation of a potential bone biopsy. Patient has already received antibiotics so it may obscure those results. Have inquired about the patient and her nurse to code exposure, to which he denies. He does state that he has chronic nasal congestion and that has been unchanged as of late. He denies any anosmia nor any change in taste. Denies any shortness of breath. Patient was put on the COVID core heart unit just to have surgery. The results of the test would not be available for the next several days. Given the potential for COVID being extremely low I feel that it is prudent to discontinue this patient's isolation as the risk of COVID is extremely small and the only reason test was done was for the surgery and no other reason. I have discussed with nursing and the patient, after surgery, can be transferred over to [facility]. Inpatient E&M: [id number] [facility] Hosp L2
--- NOTE | 2019-12-12 13:53 | NURSING ---
PT SENT TO SURGERY
--- NOTE | 2019-12-12 15:09 | CASEMGMT ---
MARLYS FULTON Note Intro role of CM to patient's via phone. Pt is in surgery. Per , he has been going to wound center and HBO once a week, however was sent by Dr. Silva to ER with sound infection and failed outpt antibiotics. Pt has not had IV antibiotics at home, has not had HHC. Discussed that CM would be following for dc needs which may possibly include IV antibiotics and HHC. is agreeable to whatever is needed. MARLYS FULTON let her know there is a list of agencies we can give pt on Saturday if he will need HHC. PT/OT will patient tomorrow and evaluations will be reviewed for dc needs. PCP: Dr. Silva Specialists: Dr. Good [facility]: [facility] Benefits: yes Living arrangements: Lives in one story home with 2 steps into home. Pt has been independent with ADL, can assist. Ambulates with cane had has been driving. is able to drive if needed. HHC: none currently. SNF: has been to [facility] in past after back surgery. states he didn't care for it. Patient's DC Goal: Home DC PLAN: anticipate home. Will need to review for IV antibiotics, HHC needs on dc. Merle YU RN ACM
[2019-12-12] MEDS: Bupivacaine Mpf 0.5% 30 ML VIAL (15:21)
--- NOTE | 2019-12-12 15:49 | OP.PCM_ITS ---
Problem List (1) Osteomyelitis of foot, right, acute Status: Acute (2) Cellulitis of foot, right Status: Acute (3) Peripheral vascular disease Status: Chronic (4) Type 2 diabetes, uncontrolled, with ulcer of heel Status: Chronic Comment: right plantar heel (5) Ulcer of right foot with necrosis of bone Status: Suspected Report of Operation Date of Procedure: 12/12/19 Pre-Operative Diagnosis: Right chronic foot ulcer now with bone exposed. 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 Calcaneus bone biopsy, right Description of Surgical Findings:: Hemostasis: No tourniquet was utilized. Anatomic dissection was performed. Pressure was applied to maintain hemostasis Materials: 4-0 nylon Complications: None Specimens were sent The patient tolerated the procedure and anesthesia well. He was transferred to the PACU with vital signs stable and vascular status intact to the right lower extremity. Intraoperative fluoroscopy was utilized to confirm proper bone biopsy extraction site. No acute injuries were noted or foreign bodies. He will be transferred back to the medical surgical floor upon continued stability. His postoperative orders were entered electronically. microbiology technologist: none - Surgeon: Jenniffer Good DPM Type of Anesthesia:: Local MAC - Preoperative: One-to-one mixture of 1% lidocaine plain and 0.5% Marcaine plain administered in typical right ankle block fashion; 18 cc Postoperative: One-to-one mixture of 1% lidocaine plain and 0.5 Marcaine plain administered in local infiltrative manner, 8 cc Specimen's removed: 1. Right calcaneus bone sent to pathology. 2. Right calcaneus bone sent to microbiology for aerobic, anaerobic, acid-fast, fungal. 3. Right foot ulcer sent to microbiology for aerobic, anaerobic, acid-fast, fungal. 4. Right foot ulcer sent to microbiology for MRSA with swab Estimated Blood Loss (mL): < 100 mL Description of Procedure: Indications: This 69-year-old male with multiple comorbidities (severe peripheral vascular disease, type 2 diabetes, coronary artery disease with prior CABG, stroke, hypertension, hyperlipidemia) with prior intervention to his right lower extremity with vascular surgeon, Dr. Navas. The onset of the ulcer was over 2 years ago and he has been treated under a comprehensive wound healing plan at the wound healing center with offloading, serial debridement, nutrition supplementation, advanced hyperbaric oxygen therapy and dressing care. It is noted he has a left lower extremity dropfoot and this makes it nearly impossible for him to keep weight off of his right heel ulcer site. He tries to use an assistive device. He has also recently attended a second opinion at [facility] in which a below the knee amputation was recommended again. Vascular surgeon, Dr. Navas is also exhausted all intervention options for the right lower extremity. His most recent arterial duplex study was reviewed and his noninvasive vascular study demonstrated an JANET on the right ankle of 0.52 and toe brachial index of less than 0.2. He now has progressive exteriorization of the ulcer site with some local cellulitis and was sent for hospitalization admission by his wound care center provider, Dr. Mckayla Silva yesterday. He was started on IV antibiotics. Most recent x-rays of the foot do not demonstrate acute destruction, soft tissue emphysema, foreign body. There is some radiolucency in the calcaneus adjacent to this chronic ulcer site and there is concern for bone infection. Ankle x-rays were negative for osseous destruction, Charcot, or other acute injuries. We discussed treatment options including amputation, continued wound care and antibiotic treatment course, hyperbaric oxygen therapy, and more aggressive operating room surgical debridement with bone biopsy. He elects to proceed forward with the latter today. He refuses amputation at this time. The indication, planned procedure, possible benefits, risk, complications, and anticipated healing time management were discussed in detail with the patient. He understands and elects to proceed with surgery at this time. Informed surgical consent and surgical limb were signed. He understands risk and complications include but are not limited to following: Pain, swelling, scarri ng, need for further surgery, continued delayed or nonhealing, infection, blood clot, allergic reaction, loss of limb, function, life. His preoperative history and physical exam and diagnostic data were reviewed. Is noted he had leukocytosis upon admission and that his now reduced to the normal range today. His ESR was 75 and his C-reactive protein was also elevated. He was preoperatively evaluated and optimized by the hospitalist service as well. He continues on Plavix during the perioperative period. The surgeon/proceduralist and patient have discussed in detail the risk of exposure to and/or potential harm posed by the COVID-19 virus with having a surgery/procedure at this time versus the risk of delaying the surgery/procedure. It is not possible to know either the risk of delaying the surgery or procedure or chance of getting an infection with perfect accuracy, but a joint decision was made between the patient and the surgeon/proceduralist to proceed at this time with the scheduled surgery/procedure as indicated on the consent form. I answered all his questions. Procedure in detail: The patient was transported to the operating room via cart and placed on the operating table in supine position. Final verification of patient, planned procedure, and limb designation was performed via the time out procedure. I administered the preoperative local anesthetic. The IV antibiotics were administered after the culture was obtained mid case. MAC anesthesia was initiated by the anesthesia team. The right lower extremity was prepped and draped in the usual aseptic manner. Surgery in the following manner: Attention was first directed to the plantar right heel which a 15 blade scalpel was used to make an incision plantar medial to the chronic ulcer site through the skin. Blunt dissection was performed down to the calcaneus bone. At this time a Dat needle biopsy trocar was entered into the calcaneus adjacent to the ulcer site to obtain a noncontaminated bone biopsy. Proper placement was confirmed with intraoperative fluoroscopy. This biopsy was successfully extracted and was sent to both microbiology and pathology as noted. This was irrigated with saline and 4-0 nylon was used to reapproximate the skin utilizing horizontal mattress technique. Next, attention was directed to the plantar ulcer site. A [place] elevator was used to probe deep into the wound and there was additional sinus tracking noting distally approximately 5 cm (at 6:00 position). The direct plantar depth of the ulcer was 1.5 cm. The length was 1.3 x 1.0 cm with some undermining as well. There was no odor, no distinct purulence, no maceration, and no deep necrosis. The ulcer bed was fibrous in appearance today and probed directly to devitalized bone. A versa jet was also used to debride on setting 8 and this was also done in a subcutaneous, muscle, and plantar calcaneus bone excisional manner to remove devitalized aforementioned tissue, biofilm, slough, and fibrous tissue. Pressure was applied to maintain hemostasis. The post debridement measurement was 1.8 x 1.8 x 1.7 cm. There is no deep necrosis or pepper purulence. There was no adjacent bogginess or fluctuance and therefore an additional abscess was not suspected. The base was now considered healthy and bleeding at this time and copious saline irrigation was performed. Clean gloves, instrumentation, and adjacent drapes were used at this time. A clean rongeur was used to obtain a wound sinus tract biopsy and this was sent to microbiology. An additional swab culture was obtained and sent as a MRSA PCR culture. Hemostasis was considered controlled at this time there is no pulsatile bleeding. Pressure application controlled hemostasis. Brisk capillary refill time was noted to the digits and the vascular status to the foot remained consistent with his preoperative status. A dressing was applied at this time including 4 x 4 gauze soaked in Betadine, dry 4 x 4 gauze, abdominal pads, and Kerlix. After procedure: The patient tolerated the procedure and anesthesia well. He was transported to the PACU with vital signs stable and vascular status intact to the right lower extremity that was consistent with his preoperative status. He was advised to remain nonweightbearing to the right lower extremity and to alternate between dangling and elevation for any postoperative pain. He was advised to keep his dressing clean, dry, and intact. He will resume vancomycin and Zosyn intravenously until his culture results develop. To maintain a strict nonweightbearing status with assistive device. Medical management DVT prophylaxis per hospitalist services noted and greatly appreciated. I will continue to follow him closely while in house. He will follow-up with the wound healing center after discharge. Postoperative orders were entered electronically. Jenniffer Good DPM, [facility] Grafts/Implants Used: none - Complications none - Admit VTE Documentation VTE Present on Admission: No VTE Mechan Device Prophylaxis: SCD's VTE Pharm Prophylaxis ordered?: Yes
[2019-12-12] MEDS: Vancomycin IV 1,000 MG/200 ML BAG 200 MG IV (16:09)
[2019-12-12 16:55] LABS: Bedside Glucose 132 mg/dL (70-110)
[2019-12-12 17:40] LABS: Bedside Glucose 111 mg/dL (70-110)
[2019-12-12 18:26] LABS: M R Staph aureus DNA By PCR Negative (Negative); Probe Check PASS; Specimen Processing Control PASS; Staph aureus DNA By PCR NEGATIVE (Negative)
[2019-12-12 21:16] LABS: Bedside Glucose 134 mg/dL (70-110)
[2019-12-12] MEDS: HYDROmorphone 1 MG/ML Syringe IV (23:40)
[2019-12-12] MEDS: Mag Hydrox/Al Hydrox/Simeth 30 ML UDC PO (23:48)
[2019-12-13] MEDS: oxyCODONE 5 MG Tablet 10 MG PO ×5 (03:11→23:14)
[2019-12-13 03:12] VITALS: BP 147/79; PULSE 71; RESP 18; TEMP 36.8; O2SAT 95
[2019-12-13] MEDS: Acetaminophen 325 MG Tablet 650 MG PO ×4 (03:12→23:15)
[2019-12-13] MEDS: HYDROmorphone 1 MG/ML Syringe IV (05:22)
[2019-12-13 06:20] LABS: Absolute Lymphocyte Count 1.44 X10^3/uL (0.83-4.51); Absolute Neutrophil Count 3.7 X10^3/uL (2.0-7.7); Basophil# 0.07 X10^3/uL; Basophil% 1.1 % (0-1); Eosinophils% 3.2 % (0-5); Hematocrit 40.1 % (40-54); Lymphocyte # 1.44 X10^3/ul (4.0); Lymphocyte % 23.3 % (19-41); Mean Corp Hgb Conc 32.4 g/dL (32-36); Mean Corpuscular Hgb 31.6 pg (27.0-32.0); Mean Corpuscular Volume 97.3 fL (80-94); Mean Platelet Vol. 9.3 fl (6.2-12.0); Monocyte# 0.69 X10^3/uL; Monocyte% 11.2 % (0-10); NRBC Flagged by Analyzer 0 % (0-5); Neutrophil # 3.72 X10^3/uL (2.7-7.7); Neutrophil % 60.4 % (47-70); Platelet Count 210 K/mm3 (150-450); RBC Distribution Width CV 13.4 % (11.6-14.6); RBC Distribution Width SD 48.5 fl (35.1-43.9); Red Blood Count 4.12 M/mm3 (4.6-6.2); White Blood Count 6.2 K/mm3 (4.4-11.0)
[2019-12-13 06:53] LABS: Anion Gap 6 (5-15); BUN 12 mg/dL (7-18); BUN/Creat Ratio 11.5 RATIO (10-20); Calcium,Total 8.5 mg/dL (8.5-10.1); Chloride 109 mmol/L (98-107); Creatinine, Serum 1.04 mg/dL (0.70-1.30); EST Glomerular Filtration Rate 75 mL/min (>60); Est Glom Filt Rate - Afr Amer 91 mL/min (>60); Estimated Creatinine Clearance 64.86 ml/min; Glucose 96 mg/dL (74-106); Potassium 3.8 mmol/L (3.5-5.1); Sodium Level 141 mmol/L (136-145)
[2019-12-13 07:15] LABS: Bedside Glucose 93 mg/dL (70-110)
[2019-12-13] MEDS: Venlafaxine XR 37.5 MG Capsule PO (08:47)
[2019-12-13] MEDS: Aspirin 325 MG Tablet PO (08:47)
[2019-12-13] MEDS: Clopidogrel Bisulfate 75 MG Tablet PO (08:47)
--- NOTE | 2019-12-13 09:02 | NURSING ---
Pt refused lovenox, this nurse asked why and pt said he that he has heard too much bad press. will inform doctor of refusal.
[2019-12-13 09:03] VITALS: BP 147/57; PULSE 82; RESP 18; TEMP 36.6; O2SAT 96
--- NOTE | 2019-12-13 10:30 | NURSING ---
Dr. [place] in to see pt and change
--- NOTE | 2019-12-13 11:07 | PN_ITS ---
Patient Problems: Active and Suspected Problems Osteomyelitis of foot, right, acute (Acute) Cellulitis of foot, right (Acute) Type 2 diabetes mellitus with diabetic polyneuropathy (Acute) Ulcer of right foot with necrosis of bone (Suspected) Subjective: Patient was seen today for follow up on right heel ulcer s/p debridement and bone biopsy yesterday. He has no other complaints today. - Physical Exam Vitals/I&O's: Vital Signs Temp Pulse Resp BP Pulse Ox 97.9 F 82 18 147/57 H 96 12/13/19 09:03 12/13/19 09:03 12/13/19 09:03 12/13/19 09:03 12/13/19 09:03 Oxygen Delivery Method Room Air Weight: 77.836 kg Body Mass Index (BMI) 26.6 Intake and Output for Last 24 Hours 12/11/19 12/12/19 12/13/19 23:59 23:59 23:59 Intake Total 50.25 / 250.25 890.75 / 890.75 650 / 650 Output Total 250 / 250 1000 / 1000 Balance 50.25 / 250.25 640.75 / 640.75 -350 / -350 General: Alert, Oriented x3, Cooperative, No apparent distress Extremities: No Calf Tenderness, - - Deep ulceration to the right heel down to calcaneus, there is very mild erythema around the site, there is some edema as well, there is no purulence, no crepitus, no visible abscess, no fluctuance, no maloder present, there is no evidence of acute ischemia to the foot or ankle, atrophic foot and leg, with degenerative changes, patient relates to pain to the wound site. The tissues of the wound are improved w/ debridement. Psych/Mental Status: Appropriate, Alert and oriented to time, place, person, mood and affect Microbiology Past 72 Hours 12/12/19 Unknown Tissue - Right Foot Wound Culture - Preliminary No growth-Final to follow 12/12/19 Unknown Bone - Right Foot Wound Culture - Preliminary Gram positive organism 12/12/19 09:00 Wound - Right Foot Gram Stain - Final 12/12/19 09:00 Wound - Right Foot Wound Culture - Preliminary Mixed Gram Positive Organisms Laboratory Results 12/12/19 07:25: Hemoglobin A1c 6.8 H 12/12/19 11:19: POC Glucose 159 H 12/12/19 14:05: POC Glucose 132 H 12/12/19 17:35: POC Glucose 111 H 12/12/19 20:55: POC Glucose 134 H 12/12/19 : S.aureus Protein A PCR NEGATIVE, MRSA (PCR) Negative 12/13/19 06:01: WBC 6.2, RBC 4.12 L, Hgb 13.0, Hct 40.1, MCV 97.3 H, MCH 31.6, MCHC 32.4, RDW Std Deviation 48.5 H, RDW Coeff of Melodie 13.4, Plt Count 210, MPV 9.3, Immature Gran % (Auto) 0.800, Neut % (Auto) 60.4, Lymph % (Auto) 23.3, [place] % (Auto) 11.2 H, Eos % (Auto) 3.2, Baso % (Auto) 1.1 H, Absolute Neuts (auto) 3.7, Absolute Lymphs (auto) 1.44, Nucleated RBC % 0 12/13/19 06:01: Sodium 141, Potassium 3.8, Chloride 109 H, Carbon Dioxide 26.0, Anion Gap 6, BUN 12, Creatinine 1.04, Estim Creat Clear Calc 64.86, Est GFR (MDRD) Af Amer 91, Est GFR (MDRD) Non-Af 75, BUN/Creatinine Ratio 11.5, Glucose 96, Calcium 8.5 12/13/19 07:05: POC Glucose 93 12/13/19 10:45: Vancomycin Trough Pending Current Medications Acetaminophen (Tylenol) 650 mg PO Q6H PRN PRN PRN Reason: Pain Score 1-10/Temp > 100.7 F Last Admin: 12/13/19 10:27 Dose: 650 mg Documented by: Al Hydroxide/Mg Hydroxide (Mylanta Ii) 30 ml PO Q6H PRN PRN PRN Reason: Gastric Burning Last Admin: 12/12/19 23:48 Dose: 30 ml Documented by: Albuterol Sulfate (Ventolin Aerosols) 2.5 mg INHALATION Q2H PRN PRN PRN Reason: Shortness of Breath/Wheezing [facility] Last Admin: 12/13/19 08:47 Dose: 325 mg Documented by: Clopidogrel Bisulfate (Plavix) 75 mg PO DAILY [facility] Last Admin: 12/13/19 08:47 Dose: 75 mg Documented by: Dextrose (D50w Syringe) 0 gm IV X1 PRN; Protocol PRN Reason: Hypoglycemia Enoxaparin Sodium (Lovenox) 40 mg SC DAILY [facility] Last Admin: 12/13/19 09:01 Dose: Not Given Documented by: Glucagon () 1 mg IM .X1 PRN PRN Reason: Hypoglycemia Hydromorphone HCl (Dilaudid Inj) 1 mg IV Q4H PRN PRN PRN Reason: Pain Score 6-10/10 Last Admin: 12/13/19 05:22 Dose: 1 mg Documented by: Vancomycin IV Pharmacy to Dose (1 ea/ Sodium Chloride) 500 mls @ 250 mls/hr IV PRN PRN; Protocol PRN Reason: Rx to Dose Piperacillin Sod/Tazobactam (Sod 3.375 gm/ Sodium Chloride) 50 mls @ 12.5 mls/hr IV Q8 [facility] Last Admin: 12/13/19 07:06 Dose: 12.5 mls/hr Documented by: Sodium Chloride () 250 mls @ 15 mls/hr IV .[id number] PRN PRN Reason: Saline Flush Last Infusion: 12/12/19 06:34 Dose: 0 mls/hr Documented by: Sodium Chloride () 250 mls @ 15 mls/hr IV .[id number] PRN PRN Reason: Additional IVPB Infusion Vancomycin HCl (Vancomycin) 1,000 mg in 200 mls @ 200 mls/hr IV Q12H [facility] Last Infusion: 12/12/19 16:25 Dose: Infused Documented by: Insulin Human Lispro (Humalog [place] (Bkc)) 0 unit SC ACHS [facility]; Protocol Last Admin: 12/13/19 07:06 Dose: Not Given Documented by: Menthol (Bengay Vanishing Scent) 1 applic TOPICAL 4X/DAY PRN PRN PRN Reason: pain (1-10)-R leg and R thigh Last Admin: 12/13/19 05:24 Dose: 1 applic Documented by: Nutritional Formula (Singh - Erhard Flavor) 1 packet PO BIDCM [facility] Last Admin: 12/13/19 10:24 Dose: 1 packet Documented by: Oxycodone HCl (Oxyir) 10 mg PO Q4H PRN PRN PRN Reason: Pain 1-10 or Fever Last Admin: 12/13/19 08:59 Dose: 10 mg Documented by: Sodium Chloride () 10 - 40 ml IV UD PRN PRN Reason: SALINE FLUSH Venlafaxine HCl (Effexor Xr) 37.5 mg PO DAILY [facility] Last Admin: 12/13/19 08:47 Dose: 37.5 mg Documented by: Medical Necessity - Tobacco Use Smoking Status: Never smoker Tobacco Use: Non-smoker Assessment/Plan All Active Problems Osteomyelitis of foot, right, acute (Acute) Cellulitis of foot, right (Acute) Type 2 diabetes mellitus with diabetic polyneuropathy (Acute) Venous ulcer of right lower extremity without varicose veins (Resolved) Varicose veins of right lower extremity with ulcer (Resolved) 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 Dressing changed - cleansed w/ normal saline solution, applied clean, dry sterile gauze, kerlix dressing. Change daily. Reviewed importance of keeping this offloaded at all times. Use pillow or foam boot to keep heels offloaded at all times to there is absolutely no pressure present. Patient expressed understanding and agreement. Patient on antibiotics, follow cultures, ID service/Dr. Holt consulted. Reviewed w/ Dr. Navas and per Dr. Navas his vascular surgeon patient is out of vascular options. Patient aware this will very unlikely heal, and he has been told by several physicians amputation has been recommended. He states I just cannot live without it. Patient understands the risks. Patient relates he understands importance of proper blood sugar control to help optimize healing.
--- NOTE | 2019-12-13 11:13 | PN_ITS ---
<Jermaine Brewer - Last Filed: 12/13/19 11:13> Patient Problems: Active and Suspected Problems Osteomyelitis of foot, right, acute (Acute) Cellulitis of foot, right (Acute) Type 2 diabetes mellitus with diabetic polyneuropathy (Acute) Ulcer of right foot with necrosis of bone (Suspected) Reason for Visit: RLE nonhealing wound Subjective: Pt resting comfortably in bed NAD. Mild discomfort of the whole right foot. No fever/chills. No cough/sob. No nausea / vomiting / or diarrhea. Vitals/I&O's: Vital Signs Temp Pulse Resp BP Pulse Ox 97.9 F 82 18 147/57 H 96 12/13/19 09:03 12/13/19 09:03 12/13/19 09:03 12/13/19 09:03 12/13/19 09:03 Oxygen Delivery Method Room Air Weight: 171 lb 9.6 oz Body Mass Index (BMI) 26.6 Intake and Output for Last 24 Hours 12/11/19 12/12/19 12/13/19 23:59 23:59 23:59 Intake Total 50.25 / 250.25 890.75 / 890.75 700 / 700 Output Total 250 / 250 1000 / 1000 Balance 50.25 / 250.25 640.75 / 640.75 -300 / -300 General: Alert, Oriented x3, Cooperative HEENT: Atraumatic, PERRLA, EOMI, Normocephalic Neck: Supple, No JVD, Negative Carotid Bruits Lungs: Clear to auscultation, Normal air movement Cardiovascular: Regular rate, No murmurs Abdomen: Bowel Sounds Present, Soft, Non Tender Extremities: No edema, Capillary Refill Less than 3 Seconds Skin: No rashes, No breakdown Musculoskeletal: No Tenderness to Palpation of Joints or Extremities Neurological: Cranial nerves II-XII grossly intact Psych/Mental Status: Normal Affect, Appropriate, Alert and oriented to time, place, person, mood and affect Microbiology Past 72 Hours 12/12/19 Unknown Tissue - Right Foot Gram Stain - Final 12/12/19 Unknown Tissue - Right Foot Wound Culture - Preliminary No growth-Final to follow 12/12/19 Unknown Bone - Right Foot Gram Stain - Final 12/12/19 Unknown Bone - Right Foot Wound Culture - Preliminary Gram positive organism 12/12/19 09:00 Wound - Right Foot Gram Stain - Final 12/12/19 09:00 Wound - Right Foot Wound Culture - Preliminary Mixed Gram Positive Organisms Laboratory Results 12/12/19 07:25: Hemoglobin A1c 6.8 H 12/12/19 11:19: POC Glucose 159 H 12/12/19 14:05: POC Glucose 132 H 12/12/19 17:35: POC Glucose 111 H 12/12/19 20:55: POC Glucose 134 H 12/12/19 : S.aureus Protein A PCR NEGATIVE, MRSA (PCR) Negative 12/13/19 06:01: WBC 6.2, RBC 4.12 L, Hgb 13.0, Hct 40.1, MCV 97.3 H, MCH 31.6, MCHC 32.4, RDW Std Deviation 48.5 H, RDW Coeff of Melodie 13.4, Plt Count 210, MPV 9.3, Immature Gran % (Auto) 0.800, Neut % (Auto) 60.4, Lymph % (Auto) 23.3, [place] % (Auto) 11.2 H, Eos % (Auto) 3.2, Baso % (Auto) 1.1 H, Absolute Neuts (auto) 3.7, Absolute Lymphs (auto) 1.44, Nucleated RBC % 0 12/13/19 06:01: Sodium 141, Potassium 3.8, Chloride 109 H, Carbon Dioxide 26.0, Anion Gap 6, BUN 12, Creatinine 1.04, Estim Creat Clear Calc 64.86, Est GFR (MDRD) Af Amer 91, Est GFR (MDRD) Non-Af 75, BUN/Creatinine Ratio 11.5, Glucose 96, Calcium 8.5 12/13/19 07:05: POC Glucose 93 12/13/19 10:45: Vancomycin Trough Pending Current Medications Acetaminophen (Tylenol) 650 mg PO Q6H PRN PRN PRN Reason: Pain Score 1-10/Temp > 100.7 F Last Admin: 12/13/19 10:27 Dose: 650 mg Documented by: Al Hydroxide/Mg Hydroxide (Mylanta Ii) 30 ml PO Q6H PRN PRN PRN Reason: Gastric Burning Last Admin: 12/12/19 23:48 Dose: 30 ml Documented by: Albuterol Sulfate (Ventolin Aerosols) 2.5 mg INHALATION Q2H PRN PRN PRN Reason: Shortness of Breath/Wheezing Aspirin (Aspirin) 325 mg PO DAILYCM [facility] Last Admin: 12/13/19 08:47 Dose: 325 mg Documented by: Clopidogrel Bisulfate (Plavix) 75 mg PO DAILY [facility] Last Admin: 12/13/19 08:47 Dose: 75 mg Documented by: Dextrose (D50w Syringe) 0 gm IV X1 PRN; Protocol PRN Reason: Hypoglycemia Enoxaparin Sodium (Lovenox) 40 mg SC DAILY [facility] Last Admin: 12/13/19 09:01 Dose: Not Given Documented by: Glucagon () 1 mg IM .X1 PRN PRN Reason: Hypoglycemia Hydromorphone HCl (Dilaudid Inj) 1 mg IV Q4H PRN PRN PRN Reason: Pain Score 6-10/10 Last Admin: 12/13/19 05:22 Dose: 1 mg Documented by: Vancomycin IV Pharmacy to Dose (1 ea/ Sodium Chloride) 500 mls @ 250 mls/hr IV PRN PRN; Protocol PRN Reason: Rx to Dose Piperacillin Sod/Tazobactam (Sod 3.375 gm/ Sodium Chloride) 50 mls @ 12.5 mls/hr IV Q8 [facility] Last Infusion: 12/13/19 11:10 Dose: Infused Documented by: Sodium Chloride () 250 mls @ 15 mls/hr IV .[id number] PRN PRN Reason: Saline Flush Last Infusion: 12/13/19 11:10 Dose: 15 mls/hr Documented by: Sodium Chloride () 250 mls @ 15 mls/hr IV .[id number] PRN PRN Reason: Additional IVPB Infusion Vancomycin HCl (Vancomycin) 1,000 mg in 200 mls @ 200 mls/hr IV Q12H [facility] Last Infusion: 12/12/19 16:25 Dose: Infused Documented by: Insulin Human Lispro (Humalog Kwikpen (Bkc)) 0 unit SC ACHS [facility]; Protocol Last Admin: 12/13/19 07:06 Dose: Not Given Documented by: Menthol (Bengay Vanishing Scent) 1 applic TOPICAL 4X/DAY PRN PRN PRN Reason: pain (1-10)-R leg and R thigh Last Admin: 12/13/19 05:24 Dose: 1 applic Documented by: Nutritional Formula (Singh - Stephan Flavor) 1 packet PO BIDCM [facility] Last Admin: 12/13/19 10:24 Dose: 1 packet Documented by: Oxycodone HCl (Oxyir) 10 mg PO Q4H PRN PRN PRN Reason: Pain 1-10 or Fever Last Admin: 12/13/19 08:59 Dose: 10 mg Documented by: Sodium Chloride () 10 - 40 ml IV UD PRN PRN Reason: SALINE FLUSH Venlafaxine HCl (Effexor Xr) 37.5 mg PO DAILY [facility] Last Admin: 12/13/19 08:47 Dose: 37.5 mg Documented by: STROKE Vital Signs/Narrative: Vital Signs Temp Pulse Resp BP Pulse Ox 12/13/19 09:03 97.9 F 82 18 147/57 H 96 Medical Necessity - Tobacco Use Smoking Status: Never smoker Tobacco Use: Non-smoker Assessment/Plan All Active Problems Osteomyelitis of foot, right, acute (Acute) Cellulitis of foot, right (Acute) Type 2 diabetes mellitus with diabetic polyneuropathy (Acute) Venous ulcer of right lower extremity without varicose veins (Resolved) Varicose 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 Acute cellulitis and osteomyelitis RLE 2/2, nonhealing right plantar wound - continue vanc/zosyn. S/P debridement POD#1. likely needs amputation at some point but pt not agreeable. BlCx pending. Wound cx prelim with GPCs. ID consult tomorrow and likely home on IV abx. 2. PAD - severe, follows Dr. Navas, has severe claudication 3. DMt2 - SSI. Last A1C 7.4. he is not on home diabetes meds. 4. CAD with prior CABG - asa/plavix DVT ppx: lovenox DC planning: PTOT evals. Home with likely IV abx tomorrow. This patient was seen by Jermaine Brewer PA-C under the supervision of Dr. Lennon <Gen Lennon - Last Filed: 12/13/19 11:45> Vitals/I&O's: Vital Signs Temp Pulse Resp BP Pulse Ox 36.6 C 82 18 147/57 H 96 12/13/19 09:03 12/13/19 09:03 12/13/19 09:03 12/13/19 09:03 12/13/19 09:03 Oxygen Delivery Method Room Air Weight: 77.836 kg Body Mass Index (BMI) 26.6 Intake and Output for Last 24 Hours 12/11/19 12/12/19 12/13/19 23:59 23:59 23:59 Intake Total 50.25 / 250.25 890.75 / 890.75 700 / 700 Output Total 250 / 250 1000 / 1000 Balance 50.25 / 250.25 640.75 / 640.75 -300 / -300 General: Alert, Cooperative HEENT: Atraumatic, Normocephalic Neck: No Nodes, Thyroid Normal Size and Texture Lungs: Clear to auscultation, Normal air movement, No rhonchi, No wheeze Cardiovascular: Regular rate, Regular Rhythm, Normal S1, Normal S2 Abdomen: Bowel Sounds Present, Soft, Non Tender Extremities: No edema, No Calf Tenderness, - - right foot bandaged--did not remove. Microbiology Past 72 Hours 12/12/19 Unknown Tissue - Right Foot Gram Stain - Final 12/12/19 Unknown Tissue - Right Foot Wound Culture - Preliminary No growth-Final to follow 12/12/19 Unknown Bone - Right Foot Gram Stain - Final 12/12/19 Unknown Bone - Right Foot Wound Culture - Preliminary Gram positive organism 12/12/19 09:00 Wound - Right Foot Gram Stain - Final 12/12/19 09:00 Wound - Right Foot Wound Culture - Preliminary Mixed Gram Positive Organisms Laboratory Results 12/12/19 14:05: POC Glucose 132 H 12/12/19 17:35: POC Glucose 111 H 12/12/19 20:55: POC Glucose 134 H 12/12/19 : S.aureus Protein A PCR NEGATIVE, MRSA (PCR) Negative 12/13/19 06:01: WBC 6.2, RBC 4.12 L, Hgb 13.0, Hct 40.1, MCV 97.3 H, MCH 31.6, MCHC 32.4, RDW Std Deviation 48.5 H, RDW Coeff of Melodie 13.4, Plt Count 210, MPV 9.3, Immature Gran % (Auto) 0.800, Neut % (Auto) 60.4, Lymph % (Auto) 23.3, [place] % (Auto) 11.2 H, Eos % (Auto) 3.2, Baso % (Auto) 1.1 H, Absolute Neuts (auto) 3.7, Absolute Lymphs (auto) 1.44, Nucleated RBC % 0 12/13/19 06:01: Sodium 141, Potassium 3.8, Chloride 109 H, Carbon Dioxide 26.0, Anion Gap 6, BUN 12, Creatinine 1.04, Estim Creat Clear Calc 64.86, Est GFR (MDRD) Af Amer 91, Est GFR (MDRD) Non-Af 75, BUN/Creatinine Ratio 11.5, Glucose 96, Calcium 8.5 12/13/19 07:05: POC Glucose 93 12/13/19 10:45: Vancomycin Trough Pending 12/13/19 11:20: POC Glucose 154 H Current Medications Acetaminophen (Tylenol) 650 mg PO Q6H PRN PRN PRN Reason: Pain Score 1-10/Temp > 100.7 F Last Admin: 12/13/19 10:27 Dose: 650 mg Documented by: Al Hydroxide/Mg Hydroxide (Mylanta Ii) 30 ml PO Q6H PRN PRN PRN Reason: Gastric Burning Last Admin: 12/12/19 23:48 Dose: 30 ml Documented by: Albuterol Sulfate (Ventolin Aerosols) 2.5 mg INHALATION Q2H PRN PRN PRN Reason: Shortness of Breath/Wheezing [facility] Last Admin: 12/13/19 08:47 Dose: 325 mg Documented by: Clopidogrel Bisulfate (Plavix) 75 mg PO DAILY [facility] Last Admin: 12/13/19 08:47 Dose: 75 mg Documented by: Dextrose (D50w Syringe) 0 gm IV X1 PRN; Protocol PRN Reason: Hypoglycemia Enoxaparin Sodium (Lovenox) 40 mg SC DAILY [facility] Last Admin: 12/13/19 09:01 Dose: Not Given Documented by: Glucagon () 1 mg IM .X1 PRN PRN Reason: Hypoglycemia Hydromorphone HCl (Dilaudid Inj) 1 mg IV Q4H PRN PRN PRN Reason: Pain Score 6-10/10 Last Admin: 12/13/19 05:22 Dose: 1 mg Documented by: Vancomycin IV Pharmacy to Dose (1 ea/ Sodium Chloride) 500 mls @ 250 mls/hr IV PRN PRN; Protocol PRN Reason: Rx to Dose Piperacillin Sod/Tazobactam (Sod 3.375 gm/ Sodium Chloride) 50 mls @ 12.5 mls/hr IV Q8 [facility] Last Infusion: 12/13/19 11:10 Dose: Infused Documented by: Sodium Chloride () 250 mls @ 15 mls/hr IV .[id number] PRN PRN Reason: Saline Flush Last Infusion: 12/13/19 11:10 Dose: 15 mls/hr Documented by: Sodium Chloride () 250 mls @ 15 mls/hr IV .[id number] PRN PRN Reason: Additional IVPB Infusion Vancomycin HCl (Vancomycin) 1,000 mg in 200 mls @ 200 mls/hr IV Q12H [facility] Last Infusion: 12/12/19 16:25 Dose: Infused Documented by: Insulin Human Lispro (Humalog Kwikpen (Bkc)) 0 unit SC ACHS [facility]; Protocol Last Admin: 12/13/19 07:06 Dose: Not Given Documented by: Menthol (Bengay Vanishing Scent) 1 applic TOPICAL 4X/DAY PRN PRN PRN Reason: pain (1-10)-R leg and R thigh Last Admin: 12/13/19 05:24 Dose: 1 applic Documented by: Nutritional Formula (Singh - Stephan Flavor) 1 packet PO BIDCM [facility] Last Admin: 12/13/19 10:24 Dose: 1 packet Documented by: Oxycodone HCl (Oxyir) 10 mg PO Q4H PRN PRN PRN Reason: Pain 1-10 or Fever Last Admin: 12/13/19 08:59 Dose: 10 mg Documented by: Sodium Chloride () 10 - 40 ml IV UD PRN PRN Reason: SALINE FLUSH Venlafaxine HCl (Effexor Xr) 37.5 mg PO DAILY [facility] Last Admin: 12/13/19 08:47 Dose: 37.5 mg Documented by: STROKE Vital Signs/Narrative: Vital Signs Temp Pulse Resp BP Pulse Ox 12/13/19 09:03 36.6 C 82 18 147/57 H 96 Assessment/Plan Patient seen and examined independently. Data reviewed. I agree with the above note by the physician psychological assistant. 1. Acute cellulitis and osteomyelitis of the right lower extremity. * Patient has had a chronic right heel ulcer for years now. * Patient has done extensive treatment with hyperbaric oxygen as well as oral antibiotics. * Patient is adamant that he does not want an amputation at this time. * Debridement on 12/11 with bone biopsy. Plan is to have him debrided with podiatry today, continue with antibiotics and follow-up cultures. I have held antibiotics for now anticipation of a potential bone biopsy. Patient has already received antibiotics so it may obscure those results. Inpatient E&M: 23136 Subs Hosp L2
[2019-12-13 11:31] LABS: Bedside Glucose 154 mg/dL (70-110)
[2019-12-13 11:53] LABS: Vancomycin, Trough Level 7.6 ug/mL (5.0-15.0)
--- NOTE | 2019-12-13 12:33 | NURSING ---
Mr. Rodriguez's blood sugar was 154. Pt refused to have 1 unit of insulin b/c he is not hungry and did not want to order lunch and why should I have insulin if I am not going to eat?
[2019-12-13 14:09] VITALS: O2SAT 94
[2019-12-13 14:17] VITALS: BP 144/70; PULSE 67; RESP 16; TEMP 36.9; O2SAT 98
--- NOTE | 2019-12-13 14:36 | PCM.RX.CS ---
Consult Pharmacy has been consulted to manage selected antiobiotic: Vancomycin Type of Consult: Follow-up Labs: Sodium 141 mmol/L (136-145) 12/13/19 06:01 Potassium 3.8 mmol/L (3.5-5.1) 12/13/19 06:01 Chloride 109 mmol/L (98-107) H 12/13/19 06:01 Carbon Dioxide 26.0 mmol/L (21.0-32.0) 12/13/19 06:01 Anion Gap 6 (5-15) 12/13/19 06:01 BUN 12 mg/dL (7-18) 12/13/19 06:01 Creatinine 1.04 mg/dL (0.70-1.30) 12/13/19 06:01 Est GFR (MDRD) Af Amer 91 mL/min (>60) 12/13/19 06:01 Est GFR (MDRD) Non-Af 75 mL/min (>60) 12/13/19 06:01 BUN/Creatinine Ratio 11.5 RATIO (10-20) 12/13/19 06:01 Glucose 96 mg/dL (74-106) 12/13/19 06:01 Vancomycin Trough 7.6 ug/mL (5.0-15.0) 12/13/19 10:45 Microbiology: Microbiology 12/11/19 14:50 Blood Culture (Wb) - Left Forearm Blood Culture - Preliminary No growth in 48 hours. 12/11/19 14:53 Blood Culture (Wb) - Anticubital Right Blood Culture - Preliminary No growth in 48 hours. 12/12/19 Unknown Tissue - Right Foot Gram Stain - Final 12/12/19 Unknown Tissue - Right Foot Wound Culture - Preliminary No growth-Final to follow 12/12/19 Unknown Bone - Right Foot Gram Stain - Final 12/12/19 Unknown Bone - Right Foot Wound Culture - Preliminary Gram positive organism 12/12/19 09:00 Wound - Right Foot Gram Stain - Final 12/12/19 09:00 Wound - Right Foot Wound Culture - Preliminary Mixed Gram Positive Organisms Weight used for dosin kg Goal Trough: 15-20 mcg/mL Pharmacy Plan for Drug Dosing: Vanc was on hold for biopsy. Resumed. Start now per previous dosing and check trough prior to 4th dose. Pharmacy Service will continue to monitor and adjust dosing as required. Follow-Up Labs: Trough Vancomycin - 12/14 @ 0230
[2019-12-13] MEDS: Vancomycin IV 1,000 MG/200 ML BAG 200 MG IV (16:29)
[2019-12-13 18:01] LABS: Bedside Glucose 160 mg/dL (70-110)
[2019-12-13 20:56] VITALS: BP 141/71; PULSE 80; RESP 18; TEMP 36.6; O2SAT 99
[2019-12-13 21:16] LABS: Bedside Glucose 170 mg/dL (70-110)
[2019-12-14] MEDS: 0.9% Saline Lock 10 ML Syringe IV ×2 (03:17→15:57)
[2019-12-14] MEDS: Vancomycin IV 1,000 MG/200 ML BAG 200 MG IV ×2 (03:17→15:57)
[2019-12-14 03:20] VITALS: BP 148/75; PULSE 59; RESP 16; TEMP 37; O2SAT 96
[2019-12-14] MEDS: oxyCODONE 5 MG Tablet 10 MG PO ×2 (06:11→15:54)
[2019-12-14 07:50] LABS: Bedside Glucose 132 mg/dL (70-110)
--- NOTE | 2019-12-14 07:54 | PCM.PN.HOSP ---
Patient Problems: Active and Suspected Problems Osteomyelitis of foot, right, acute (Acute) Cellulitis of foot, right (Acute) Type 2 diabetes mellitus with diabetic polyneuropathy (Acute) Ulcer of right foot with necrosis of bone (Suspected) Reason for Visit: cellulitis and osteomyelitis involving the right lower extremity as a result of healing plantar wound Subjective: Patient is a 69-year-old male admitted with cellulitis and osteomyelitis involving the right lower extremity as a result of healing plantar wound Objective: GENERAL: cooperative HEENT: Atraumatic; EYES; Anicteric, Normal Conjunctiva NECK; supple, normal thyroid, RESPIRATORY: Diminished to auscultation CARDIOVASCULAR: Regular S1 S2, GI: soft, normoactive bowel sounds, : No Renal angle tenderness; EXTREMITIES: No edema, no clubbing, MUSCULOSKELETAL: Right foot in surgical dressing NEURO: Awake; no lateralizing signs. SKIN: No Rash PSYCH; Flat affect Vitals/I&O's: Vital Signs Temp Pulse Resp BP Pulse Ox 98.6 F 59 L 16 148/75 H 96 12/14/19 03:20 12/14/19 03:20 12/14/19 03:20 12/14/19 03:20 12/14/19 03:20 Oxygen Delivery Method Room Air Weight: 76.9 kg Body Mass Index (BMI) 26.6 Intake and Output for Last 24 Hours 12/12/19 12/13/19 12/14/19 23:59 23:59 23:59 Intake Total 890.75 / 890.75 1741.50 / 2041.50 659.0 / 659.0 Output Total 250 / 250 1700 / 1950 1000 / 1000 Balance 640.75 / 640.75 41.50 / 91.50 -341.0 / -341.0 Microbiology Past 72 Hours 12/11/19 14:50 Blood Culture (Wb) - Left Forearm Blood Culture - Preliminary No growth in 48 hours. 12/11/19 14:53 Blood Culture (Wb) - Anticubital Right Blood Culture - Preliminary No growth in 48 hours. 12/12/19 Unknown Tissue - Right Foot Gram Stain - Final 12/12/19 Unknown Tissue - Right Foot Wound Culture - Preliminary No growth-Final to follow 12/12/19 Unknown Bone - Right Foot Gram Stain - Final 12/12/19 Unknown Bone - Right Foot Wound Culture - Preliminary Gram positive organism 12/12/19 09:00 Wound - Right Foot Gram Stain - Final 12/12/19 09:00 Wound - Right Foot Wound Culture - Preliminary Mixed Gram Positive Organisms Laboratory Results 12/11/19 16:05: COVID-19 (JG) Not Detected 12/11/19 16:05: COVID-19 (JG) Results on MP report 12/13/19 10:45: Vancomycin Trough 7.6 12/13/19 11:20: POC Glucose 154 H 12/13/19 17:50: POC Glucose 160 H 12/13/19 21:01: POC Glucose 170 H 12/14/19 07:45: POC Glucose 132 H Current Medications Acetaminophen (Tylenol) 650 mg PO Q6H PRN PRN PRN Reason: Pain Score 1-10/Temp > 100.7 F Last Admin: 12/13/19 23:15 Dose: 650 mg Documented by: Al Hydroxide/Mg Hydroxide (Mylanta Ii) 30 ml PO Q6H PRN PRN PRN Reason: Gastric Burning Last Admin: 12/12/19 23:48 Dose: 30 ml Documented by: Albuterol Sulfate (Ventolin Aerosols) 2.5 mg INHALATION Q2H PRN PRN PRN Reason: Shortness of Breath/Wheezing [facility] Last Admin: 12/13/19 08:47 Dose: 325 mg Documented by: Clopidogrel Bisulfate (Plavix) 75 mg PO DAILY [facility] Last Admin: 12/13/19 08:47 Dose: 75 mg Documented by: Dextrose (D50w Syringe) 0 gm IV X1 PRN; Protocol PRN Reason: Hypoglycemia Diclofenac Sodium (Voltaren) 1 applic TP 4X/DAY PRN PRN PRN Reason: pain (1-10)-R leg and R thigh Last Admin: 12/13/19 21:05 Dose: 1 applicatio Documented by: Enoxaparin Sodium (Lovenox) 40 mg SC DAILY [facility] Last Admin: 12/13/19 09:01 Dose: Not Given Documented by: Glucagon () 1 mg IM .X1 PRN PRN Reason: Hypoglycemia Hydromorphone HCl (Dilaudid Inj) 1 mg IV Q4H PRN PRN PRN Reason: Pain Score 6-10/10 Last Admin: 12/13/19 05:22 Dose: 1 mg Documented by: Vancomycin IV Pharmacy to Dose (1 ea/ Sodium Chloride) 500 mls @ 250 mls/hr IV PRN PRN; Protocol PRN Reason: Rx to Dose Piperacillin Sod/Tazobactam (Sod 3.375 gm/ Sodium Chloride) 50 mls @ 12.5 mls/hr IV Q8 [facility] Last Admin: 12/14/19 06:11 Dose: 12.5 mls/hr Documented by: Sodium Chloride () 250 mls @ 15 mls/hr IV .[id number] PRN PRN Reason: Saline Flush Last Infusion: 12/14/19 06:15 Dose: 0 mls/hr Documented by: Sodium Chloride () 250 mls @ 15 mls/hr IV .[id number] PRN PRN Reason: Additional IVPB Infusion Last Infusion: 12/14/19 06:59 Dose: 0 mls/hr Documented by: Vancomycin HCl (Vancomycin) 1,000 mg in 200 mls @ 200 mls/hr IV Q12H [facility] Last Infusion: 12/14/19 04:17 Dose: Infused Documented by: Insulin Human Lispro (Humalog Kwikpen (Bkc)) 0 unit SC ACHS [facility]; Protocol Last Admin: 12/14/19 07:49 Dose: Not Given Documented by: Nutritional Formula (Singh - [place] Flavor) 1 packet PO BIDCM [facility] Last Admin: 12/13/19 17:54 Dose: 1 packet Documented by: Oxycodone HCl (Oxyir) 10 mg PO Q4H PRN PRN PRN Reason: Pain 1-10 or Fever Last Admin: 12/14/19 06:11 Dose: 10 mg Documented by: Sodium Chloride () 10 - 40 ml IV UD PRN PRN Reason: SALINE FLUSH Last Admin: 12/14/19 03:17 Dose: 30 ml Documented by: Venlafaxine HCl (Effexor Xr) 37.5 mg PO DAILY [facility] Last Admin: 12/13/19 08:47 Dose: 37.5 mg Documented by: Medical Necessity - Tobacco Use Smoking Status: Never smoker Tobacco Use: Non-smoker Assessment/Plan All Active Problems Osteomyelitis of foot, right, acute (Acute) Cellulitis of foot, right (Acute) Type 2 diabetes mellitus with diabetic polyneuropathy (Acute) Venous ulcer of right lower extremity without varicose veins (Resolved) Varicose veins of right lower extremity with ulcer (Resolved) Patient is a 69-year-old male admitted with cellulitis and osteomyelitis involving the right lower extremity as a result of healing plantar wound 1. Acute cellulitis and osteomyelitis involving the right lower extremity with a nonhealing right plantar wound ?Patient underwent Excisional debridement of right heel ulcer including muscle and bone. Calcaneus bone biopsy, right on 12/12/2019 by podiatry. Cultures sent for positive for gram-positive organisms final identification and sensitivities pending. Patient is on vancomycin and Zosyn continued with consultation placed to infectious disease 2. Diabetes mellitus type 2 ?Managed with diet placed on Accu-Cheks before meals and at bedtime with sliding scale coverage 3. Peripheral arterial disease severe ?Patient is followed by vascular surgeon Dr. Navas as outpatient 4. Coronary artery disease with previous CABG ?Patient is on dual antiplatelet therapy 5. DVT prophylaxis - On enoxaparin Inpatient E&M: [id number] [facility] L[facility]
[2019-12-14] MEDS: Venlafaxine XR 37.5 MG Capsule PO (09:10)
[2019-12-14] MEDS: Aspirin 325 MG Tablet PO (09:10)
[2019-12-14] MEDS: Clopidogrel Bisulfate 75 MG Tablet PO (09:11)
[2019-12-14] MEDS: Acetaminophen 325 MG Tablet 650 MG PO (09:13)
[2019-12-14 09:20] VITALS: BP 134/74; PULSE 69; RESP 16; TEMP 36.6; O2SAT 99
--- NOTE | 2019-12-14 11:30 | CASEMGMT ---
MARLYS CM in to discuss discharge planning with patient and . RN CM updated patient regarding potential IV ATBs and HHC at discharge. RN CM also updated patient and regarding possible SNF if patient is not able to ambulate and maintain NWB to right foot. inquired about knee scooter and RN CM updated that it is not covered by insurance. Patient would like to trial knee scooter with therapy. MARLYS FULTON updated therapy regarding DME needs and patient safety at home. MARLYS FULTON will provided patient with HHC and infusion company lists. CM to continue to follow this patient and plan for a safe discharge.
--- NOTE | 2019-12-14 11:38 | CASEMGMT ---
Social Work Note Per puncher questions, pt has completed HCPOA and LW and provided copies to [facility]. SW reviewed chart. LW is on chart, no HCPOA. SW in to speak with pt. SW introduced self and role at [facility]. SW updated pt that LW is on file but not HCPOA. Pt states understanding. Pt states he will be able to bring in HCPOA copy. Savanna Brian [employer]IE OPERATOR, TRENCH DIGGER
[2019-12-14] MEDS: DAKIN'S SOL HALF STRENGTH (=0.25%) 1 APPLIC TOPICAL (11:50)
--- NOTE | 2019-12-14 11:55 | NURSING ---
wound photo: right plantar heel
[2019-12-14 11:56] LABS: Bedside Glucose 111 mg/dL (70-110)
--- NOTE | 2019-12-14 12:06 | PN_ITS ---
Patient Problems: Active and Suspected Problems Osteomyelitis of foot, right, acute (Acute) Cellulitis of foot, right (Acute) Type 2 diabetes mellitus with diabetic polyneuropathy (Acute) Ulcer of right foot with necrosis of bone (Suspected) Subjective: This is 69-year-old male with multiple comorbidities who was seen bedside po stoperative day #2 right heel debridement with additional bone biopsy of the calcaneus. Relates he is starting to feel better today and denies fever, chill, nausea, vomiting. His pain is also significantly reduced to the right foot but is still present. He continues to work with physical therapy to maintain a right non weightbearing status and will try a knee roller next. This is difficult due to his left drop foot. - Physical Exam Vitals/I&O's: Vital Signs Temp Pulse Resp BP Pulse Ox 97.8 F 69 16 134/74 H 99 12/14/19 09:20 12/14/19 09:20 12/14/19 09:20 12/14/19 09:20 12/14/19 09:20 Oxygen Delivery Method Room Air Weight: 76.9 kg Body Mass Index (BMI) 26.6 Intake and Output for Last 24 Hours 12/12/19 12/13/19 12/14/19 23:59 23:59 23:59 Intake Total 890.75 / 890.75 1741.50 / 2041.50 709.0 / 709.0 Output Total 250 / 250 1700 / 1950 1000 / 1000 Balance 640.75 / 640.75 41.50 / 91.50 -291.0 / -291.0 General: Alert, Oriented x3, Cooperative HEENT: Atraumatic Skin: Ulcer/ Wound - erythema and edema resolved. photo reviewed with fibrous and granular base and central exposed calcaneus bone which is discolored. adjacent skin is hairless and atrophic Musculoskeletal: Muscle Wasting, - - left drop foot. right weakness lower extr emity. pain to palpate ulcer site Neurological: Sensory exam intact to light touch and pain Psych/Mental Status: Normal Affect, Appropriate, Anxious Microbiology Past 72 Hours 12/12/19 09:00 Wound - Right Foot Gram Stain - Final 12/12/19 09:00 Wound - Right Foot Wound Culture - Preliminary Gram Positive Cocci Gram positive ramon 12/12/19 09:00 Wound - Right Foot Anaerobic Culture - Preliminary Checking for anaerobes, further studies to follow. 12/12/19 Unknown Bone - Right Foot Gram Stain - Final 12/12/19 Unknown Bone - Right Foot Wound Culture - Preliminary Gram Positive Cocci 12/11/19 14:50 Blood Culture (Wb) - Left Forearm Blood Culture - Preliminary No growth in 48 hours. 12/11/19 14:53 Blood Culture (Wb) - Anticubital Right Blood Culture - Preliminary No growth in 48 hours. 12/12/19 Unknown Tissue - Right Foot Gram Stain - Final 12/12/19 Unknown Tissue - Right Foot Wound Culture - Preliminary No growth-Final to follow Laboratory Results 12/11/19 16:05: COVID-19 (JG) Not Detected 12/11/19 16:05: COVID-19 (JG) Results on MP report 12/13/19 17:50: POC Glucose 160 H 12/13/19 21:01: POC Glucose 170 H 12/14/19 07:45: POC Glucose 132 H 12/14/19 11:49: POC Glucose 111 H Current Medications Acetaminophen (Tylenol) 650 mg PO Q6H PRN PRN PRN Reason: Pain Score 1-10/Temp > 100.7 F Last Admin: 12/14/19 09:13 Dose: 650 mg Documented by: Al Hydroxide/Mg Hydroxide (Mylanta Ii) 30 ml PO Q6H PRN PRN PRN Reason: Gastric Burning Last Admin: 12/12/19 23:48 Dose: 30 ml Documented by: Albuterol Sulfate (Ventolin Aerosols) 2.5 mg INHALATION Q2H PRN PRN PRN Reason: Shortness of Breath/Wheezing Aspir[facility] ([facility]) [facility] Last Admin: 12/14/19 09:10 Dose: 325 mg Documented by: Clopidogrel Bisulfate (Plavix) 75 mg PO DAILY [facility] Last Admin: 12/14/19 09:11 Dose: 75 mg Documented by: Dextrose (D50w Syringe) 0 gm IV X1 PRN; Protocol PRN Reason: Hypoglycemia Diclofenac Sodium (Voltaren) 1 applic TP 4X/DAY PRN PRN PRN Reason: pain (1-10)-R leg and R thigh Last Admin: 12/13/19 21:05 Dose: 1 applicatio Documented by: Enoxaparin Sodium (Lovenox) 40 mg SC DAILY [facility] Last Admin: 12/14/19 09:10 Dose: Not Given Documented by: Glucagon () 1 mg IM .X1 PRN PRN Reason: Hypoglycemia Hydromorphone HCl (Dilaudid Inj) 1 mg IV Q4H PRN PRN PRN Reason: Pain Score 6-10/10 Last Admin: 12/13/19 05:22 Dose: 1 mg Documented by: Vancomycin IV Pharmacy to Dose (1 ea/ Sodium Chloride) 500 mls @ 250 mls/hr IV PRN PRN; Protocol PRN Reason: Rx to Dose Piperacillin Sod/Tazobactam (Sod 3.375 gm/ Sodium Chloride) 50 mls @ 12.5 mls/hr IV Q8 [facility] Last Infusion: 12/14/19 10:11 Dose: Infused Documented by: Sodium Chloride () 250 mls @ 15 mls/hr IV .[id number] PRN PRN Reason: Saline Flush Last Infusion: 12/14/19 06:15 Dose: 0 mls/hr Documented by: Sodium Chloride () 250 mls @ 15 mls/hr IV .[id number] PRN PRN Reason: Additional IVPB Infusion Last Infusion: 12/14/19 10:11 Dose: 15 mls/hr Documented by: Vancomycin HCl (Vancomycin) 1,000 mg in 200 mls @ 200 mls/hr IV Q12H [facility] Last Infusion: 12/14/19 04:17 Dose: Infused Documented by: Insulin Human Lispro (Humalog Kwikpen (Bkc)) 0 unit SC ACHS [facility]; Protocol Last Admin: 12/14/19 11:51 Dose: Not Given Documented by: Nutritional Formula (Singh - [place] Flavor) 1 packet PO BIDCM [facility] Last Admin: 12/14/19 09:10 Dose: 1 packet Documented by: Oxycodone HCl (Oxyir) 10 mg PO Q4H PRN PRN PRN Reason: Pain 1-10 or Fever Last Admin: 12/14/19 06:11 Dose: 10 mg Documented by: Sodium Chloride () 10 - 40 ml IV UD PRN PRN Reason: SALINE FLUSH Last Admin: 12/14/19 03:17 Dose: 30 ml Documented by: Sodium Hypochlorite (Dakins Solution 0.25% (1/2 Strength)) 1 applic TOPICAL DAILY [facility]; Protocol Last Admin: 12/14/19 11:50 Dose: 1 applic Documented by: Venlafaxine HCl (Effexor Xr) 37.5 mg PO DAILY [facility] Last Admin: 12/14/19 09:10 Dose: 37.5 mg Documented by: Medical Necessity - Tobacco Use Smoking Status: Never smoker Tobacco Use: Non-smoker Assessment/Plan All Active Problems Osteomyelitis of foot, right, acute (Acute) Cellulitis of foot, right (Acute) Type 2 diabetes mellitus with diabetic polyneuropathy (Acute) Venous ulcer of right lower extremity without varicose veins (Resolved) Varicose veins of right lower extremity with ulcer (Resolved) 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 He remains afebrile and vitals are stable. No leukocytosis yesterday (WBC 6.2). His wound is stable. Dressing changed this morning. Reviewed importance of keeping this offloaded at all times. Use pillow or foam boot to keep heels offloaded at all times to there is absolutely no pressure present. Patient expressed understanding and agreement. He will work with PT to see if knee roller is manageable. Patient on antibiotics, follow cultures, ID service/Dr. Holt consulted. Input is appreciated. He continues on IV vanc/zosyn and 6 weeks of IV antiobiot ics are planned. PICC line will be placed. So far intraop cultures demonstrate gram positive rods and gram positive cocci. Pathology calcaneaus bone biopsy results are still pending. Healing capability is guarded given his poor circulation. He will continue to follow up with Dr. Navas in the out patient setting. 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 D/c home versus SNF is pending. To follow up at the wound healing center after discharge. He will be transitioned to a wound vac. Please call if questions. Podiatry will continue to follow while in house. Jenniffer Good DPM, [facility] [phone]
--- NOTE | 2019-12-14 12:06 | NURSING ---
wound photo: right plantar heel
[2019-12-14 15:20] VITALS: BP 127/101; PULSE 64; RESP 16; TEMP 37; O2SAT 99
--- NOTE | 2019-12-14 15:35 | CON.PCM_ITS ---
Problem List (1) Osteomyelitis of foot, right, acute Status: Acute Reason for Consult: osteo Consulted by: Dr. Good History of Present Illness: The patient is a 69 year old M with DM neuropathy, R heel ulcer for several years. Reports has been on abx for about 2 years continuously based on repeatedly (+) cxs. Over past week, worsened R foot redness, swelling, severe pain, purulent/bloody drainage, some chills. Abx changed to cipro/flagyl. Sx continued to worsen, sent to ED 12/10. Started on vanc/zosyn, taken to OR 12/12/[address] Good. Feeling better, pain controlled. Full ROS performed and neg except as noted above. 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) Diabetes with ulcer of toe (Chronic) PAD (peripheral artery disease) (Chronic) Cellulitis and abscess of foot (Chronic) Type 2 diabetes, controlled, with ulcer of heel (Chronic) Non-healing open wound of heel (Chronic) Hyperlipidemia (Chronic) Peripheral vascular disease (Chronic) Hypertension (Chronic) Coronary artery disease (Chronic) Status post CABG Type II diabetes mellitus (Chronic) Valdez grade 3 Allergies/Adverse Reactions: Allergies morphine Allergy (Verified 12/11/19 16:26) PT UNSURE OF REACTION i was told after surgery that i shouldn't have it rivaroxaban [From Xarelto] Allergy (Verified 12/11/19 14:29) Other Home Medications: Ambulatory Orders Medication Instructions Recorded #17 3 tab PO DAILY 06/13/18 Aspirin [Lite Coat Aspirin] 325 mg PO DAILY 06/13/18 [id number] 1 units PO DAILY 06/13/18 Calcium Lactate 1 mg PO DAILY 06/13/18 Cat C 2 PO DAILY 06/13/18 Cat E2 8 PO DAILY 06/13/18 Cholecalciferol (Vitamin D3) 5,000 mg PO DAILY 06/13/18 [Vitamin D3] Inositol 2 tab PO PRN PRN 06/13/18 Koncentrated K 1 tab PO DAILY 06/13/18 Mag Lactate 800 mg PO DAILY 06/13/18 Nattokinase 2 tab PO DAILY 06/13/18 Potassium-Derick 1 tab PO DAILY 06/13/18 Clopidogrel Bisulfate [Clopidogrel] 75 mg PO DAILY 09/08/18 traMADol [Ultram] 50 - 100 mg PO PRN PRN 09/08/18 Aurum Metallicum 2 drp PO DAILY 02/13/19 Ciprofloxacin [Cipro] 500 mg PO BID 12/11/19 Metronidazole [Flagyl] 500 mg PO BID 12/11/19 Oxycodone [Oxyir] 10 mg PO Q4H PRN PRN 12/11/19 Venlafaxine HCl 37.5 mg PO DAILY 12/11/19 Diclofenac Sodium [Voltaren] 12/12/19 - Social History Tobacco Use: non-smoker Vital Signs Temp Pulse Resp BP Pulse Ox 97.8 F 69 16 134/74 H 99 12/14/19 09:20 12/14/19 09:20 12/14/19 09:20 12/14/19 09:20 12/14/19 09:20 Oxygen Delivery Method Room Air Weight: 76.9 kg Body Mass Index (BMI) 26.6 Microbiology Past 72 Hours 12/12/19 09:00 Gram Stain - Final Wound - Right Foot Wound Culture - Preliminary Gram Positive Cocci Gram positive ramon Anaerobic Culture - Preliminary Checking for anaerobes, further studies to follow. 12/12/19 Unknown Gram Stain - Final Bone - Right Foot Wound Culture - Preliminary Gram Positive Cocci 12/11/19 14:50 Blood Culture - Preliminary Blood Culture (Wb) - Left Forearm No growth in 48 hours. 12/11/19 14:53 Blood Culture - Preliminary Blood Culture (Wb) - Anticubital Right No growth in 48 hours. 12/12/19 Unknown Gram Stain - Final Tissue - Right Foot Wound Culture - Preliminary No growth-Final to follow Laboratory Tests Past 24 Hrs 12/11/19 12/11/19 16:05 16:05 COVID-19 (JG) Not Detected Results on MP report - Other Studies Radiology: [] reviewed Other Studies: [] Route of nutrition/ use of supplements: [] Nutritional Intake: [] IV Site: [] Baires Catheter: [] - Physical Exam General: Alert, Oriented x3, Cooperative, No apparent distress HEENT: Atraumatic, PERRLA, EOMI Neck: Supple, No Nodes Lungs: Clear to auscultation, Normal air movement Cardiovascular: Regular rate, Regular Rhythm Abdomen: Soft, Non Tender, Non-Distended Extremities: No edema Skin: No rashes, Ulcer/ Wound - reviewed photo IV Site: Peripheral, without redness Musculoskeletal: No Tenderness to Palpation of Joints or Extremities Neurological: Cranial nerves II-XII grossly intact - Assessment/Plan Antibiotics: [] Assessment/Plan: [] Active and Suspected Problems Osteomyelitis of foot, right, acute (Acute) Cellulitis of foot, right (Acute) Type 2 diabetes mellitus with diabetic polyneuropathy (Acute) Ulcer of right foot with necrosis of bone (Suspected) R heel osteo with DM neuropathy and PAD - bone bx and debridement by Dr. Good 12/12/19. Surg cx with GPR and GPC so far. Cont vanc/zosyn. Discussed options with him and his , plan will be for 6 weeks iv abx. Will order picc. Will follow, thank you, d/w manager case management.
--- NOTE | 2019-12-14 16:13 | NURSING ---
this RN called [facility] for PICC line placement. per [facility], they will call back when determine time RN will be able to place line.
[2019-12-14] MEDS: Insulin Lispro 100 UNIT/ML INSULN.PEN SC (16:55)
[2019-12-14 17:05] LABS: Bedside Glucose 182 mg/dL (70-110)
[2019-12-14 21:19] VITALS: BP 150/83; PULSE 68; RESP 18; TEMP 36.6; O2SAT 100
[2019-12-14 23:51] LABS: Bedside Glucose 135 mg/dL (70-110)
[2019-12-15] MEDS: Vancomycin IV 1,000 MG/200 ML BAG 200 MG IV ×2 (03:23→16:05)
[2019-12-15 03:24] LABS: Hematocrit 40.6 % (40-54); Hemoglobin 13.1 g/dL (13.0-16.5); Mean Corp Hgb Conc 32.3 g/dL (32-36); Mean Corpuscular Hgb 31.7 pg (27.0-32.0); Mean Corpuscular Volume 98.3 fL (80-94); Mean Platelet Vol. 9.1 fl (6.2-12.0); Platelet Count 225 K/mm3 (150-450); RBC Distribution Width CV 13.9 % (11.6-14.6); RBC Distribution Width SD 49.6 fl (35.1-43.9); Red Blood Count 4.13 M/mm3 (4.6-6.2); White Blood Count 5.1 K/mm3 (4.4-11.0)
[2019-12-15] MEDS: 0.9% Saline Lock 10 ML Syringe IV ×2 (03:28→16:06)
[2019-12-15] MEDS: oxyCODONE 5 MG Tablet 10 MG PO ×3 (03:31→16:25)
[2019-12-15 03:33] VITALS: BP 138/78; PULSE 64; RESP 16; TEMP 36.6; O2SAT 99
[2019-12-15 03:51] LABS: Anion Gap 6 (5-15); BUN 25 mg/dL (7-18); Calcium,Total 8.6 mg/dL (8.5-10.1); Chloride 107 mmol/L (98-107); EST Glomerular Filtration Rate 79 mL/min (>60); Est Glom Filt Rate - Afr Amer 95 mL/min (>60); Estimated Creatinine Clearance 67.45 ml/min; Glucose 117 mg/dL (74-106); Magnesium 2.5 mg/dL (1.6-2.6); Potassium 3.9 mmol/L (3.5-5.1); Sodium Level 139 mmol/L (136-145)
[2019-12-15 04:03] LABS: Vancomycin, Trough Level 17.2 ug/mL (5.0-15.0)
--- NOTE | 2019-12-15 04:13 | PCM.RX.CS ---
Consult Pharmacy has been consulted to manage selected antiobiotic: Vancomycin Type of Consult: Follow-up Suspected Infection: Osteomyelitis Prior Doses of Antibiotics Received/Current Regimen: Medications Vancomycin HCl (Vancomycin) 1,000 mg in 200 mls @ 200 mls/hr IV Q12H [facility] Last Admin: 12/15/19 03:23 Dose: 200 mls/hr Labs: Sodium 139 mmol/L (136-145) 12/15/19 03:10 Potassium 3.9 mmol/L (3.5-5.1) 12/15/19 03:10 Chloride 107 mmol/L (98-107) 12/15/19 03:10 Carbon Dioxide 26.0 mmol/L (21.0-32.0) 12/15/19 03:10 Anion Gap 6 (5-15) 12/15/19 03:10 BUN 25 mg/dL (7-18) H 12/15/19 03:10 Creatinine 1.00 mg/dL (0.70-1.30) 12/15/19 03:10 Est GFR (MDRD) Af Amer 95 mL/min (>60) 12/15/19 03:10 Est GFR (MDRD) Non-Af 79 mL/min (>60) 12/15/19 03:10 BUN/Creatinine Ratio 25.0 RATIO (10-20) H 12/15/19 03:10 Glucose 117 mg/dL (74-106) H 12/15/19 03:10 Vancomycin Trough 17.2 ug/mL (5.0-15.0) H 12/15/19 03:10 Microbiology: Microbiology 12/12/19 09:00 Wound - Right Foot Gram Stain - Final 12/12/19 09:00 Wound - Right Foot Wound Culture - Preliminary Gram Positive Cocci Gram positive ramon 12/12/19 09:00 Wound - Right Foot Anaerobic Culture - Preliminary Checking for anaerobes, further studies to follow. 12/12/19 Unknown Bone - Right Foot Gram Stain - Final 12/12/19 Unknown Bone - Right Foot Wound Culture - Preliminary Gram Positive Cocci 12/11/19 14:50 Blood Culture (Wb) - Left Forearm Blood Culture - Preliminary No growth in 48 hours. 12/11/19 14:53 Blood Culture (Wb) - Anticubital Right Blood Culture - Preliminary No growth in 48 hours. 12/12/19 Unknown Tissue - Right Foot Gram Stain - Final 12/12/19 Unknown Tissue - Right Foot Wound Culture - Preliminary No growth-Final to follow Weight used for dosin.9 kg Estimated Creatinine Clearance: 67 Goal Trough: 15-20 mcg/mL Pharmacy Plan for Drug Dosing: Trough level of 17.2 was within target range of 15-20. Will continue same dosing and re-draw trough in 4 days. Pharmacy Service will continue to monitor and adjust dosing as required. Follow-Up Labs: Trough Vancomycin Labs to be done on [date and time ordered]: 12/19/19 @0835
[2019-12-15 07:06] LABS: Bedside Glucose 128 mg/dL (70-110)
[2019-12-15 07:29] VITALS: O2SAT 96
--- NOTE | 2019-12-15 07:48 | PN_ITS ---
Patient Problems: Active and Suspected Problems Osteomyelitis of foot, right, acute (Acute) Cellulitis of foot, right (Acute) Type 2 diabetes mellitus with diabetic polyneuropathy (Acute) Ulcer of right foot with necrosis of bone (Suspected) Reason for Visit: Osteomyelitis Subjective: Wound cultures positive for staph epi and corynebacterium Objective: GENERAL: cooperative HEENT: Atraumatic; EYES; Anicteric, Normal Conjunctiva NECK; supple, normal thyroid, RESPIRATORY: Diminished to auscultation CARDIOVASCULAR: Regular S1 S2, GI: soft, normoactive bowel sounds, : No Renal angle tenderness; EXTREMITIES: No edema, no clubbing, MUSCULOSKELETAL: Right foot in surgical dressing NEURO: Awake; no lateralizing signs. SKIN: No Rash PSYCH; Flat affect Vitals/I&O's: Vital Signs Temp Pulse Resp BP Pulse Ox 97.9 F 64 16 138/78 H 96 12/15/19 03:33 12/15/19 03:33 12/15/19 03:33 12/15/19 03:33 12/15/19 07:29 Oxygen Delivery Method Room Air Weight: 76.9 kg Body Mass Index (BMI) 26.6 Intake and Output for Last 24 Hours 12/13/19 12/14/19 12/15/19 23:59 23:59 23:59 Intake Total 1741.50 / 2041.50 1315.75 / 1315.75 511.00 / 511.00 Output Total 1700 / 1950 2750 / 2750 500 / 500 Balance 41.50 / 91.50 -1434.25 / -1434.25 11.00 / 11.00 Microbiology Past 72 Hours 12/12/19 Unknown Tissue - Right Foot Gram Stain - Final 12/12/19 Unknown Tissue - Right Foot Wound Culture - Final No growth aerobically. 12/12/19 09:00 Wound - Right Foot Gram Stain - Final 12/12/19 09:00 Wound - Right Foot Wound Culture - Final Staphylococcus epidermidis Corynebacterium striatum 12/12/19 09:00 Wound - Right Foot Anaerobic Culture - Preliminary Checking for anaerobes, further studies to follow. 12/12/19 Unknown Bone - Right Foot Gram Stain - Final 12/12/19 Unknown Bone - Right Foot Wound Culture - Final Staphylococcus epidermidis 12/11/19 14:50 Blood Culture (Wb) - Left Forearm Blood Culture - Preliminary No growth in 48 hours. 12/11/19 14:53 Blood Culture (Wb) - Anticubital Right Blood Culture - Preliminary No growth in 48 hours. Laboratory Results 12/14/19 07:45: POC Glucose 132 H 12/14/19 11:49: POC Glucose 111 H 12/14/19 16:47: POC Glucose 182 H 12/14/19 21:29: POC Glucose 135 H 12/15/19 03:10: Vancomycin Trough 17.2 H 12/15/19 03:10: WBC 5.1, RBC 4.13 L, Hgb 13.1, Hct 40.6, MCV 98.3 H, MCH 31.7, MCHC 32.3, RDW Std Deviation 49.6 H, RDW Coeff of Melodie 13.9, Plt Count 225, MPV 9.1 12/15/19 03:10: Sodium 139, Potassium 3.9, Chloride 107, Carbon Dioxide 26.0, Anion Gap 6, BUN 25 H, Creatinine 1.00, Estim Creat Clear Calc 67.45, Est GFR (MDRD) Af Amer 95, Est GFR (MDRD) Non-Af 79, BUN/Creatinine Ratio 25.0 H, Glucose 117 H, Calcium 8.6, Magnesium 2.5 12/15/19 06:43: POC Glucose 128 H Current Medications Acetaminophen (Tylenol) 650 mg PO Q6H PRN PRN PRN Reason: Pain Score 1-10/Temp > 100.7 F Last Admin: 12/14/19 09:13 Dose: 650 mg Documented by: Al Hydroxide/Mg Hydroxide (Mylanta Ii) 30 ml PO Q6H PRN PRN PRN Reason: Gastric Burning Last Admin: 12/12/19 23:48 Dose: 30 ml Documented by: Albuterol Sulfate (Ventolin Aerosols) 2.5 mg INHALATION Q2H PRN PRN PRN Reason: Shortness of Breath/Wheezing [facility] Last Admin: 12/14/19 09:10 Dose: 325 mg Documented by: Clopidogrel Bisulfate (Plavix) 75 mg PO DAILY [facility] Last Admin: 12/14/19 09:11 Dose: 75 mg Documented by: Dextrose (D50w Syringe) 0 gm IV X1 PRN; Protocol PRN Reason: Hypoglycemia Diclofenac Sodium (Voltaren) 1 applic TP 4X/DAY PRN PRN PRN Reason: pain (1-10)-R leg and R thigh Last Admin: 12/13/19 21:05 Dose: 1 applicatio Documented by: Enoxaparin Sodium (Lovenox) 40 mg SC DAILY COUNT [facility]CLUD[facility] Last Admin: 12/14/19 09:10 Dose: Not Given Documented by: Glucagon () 1 mg IM .X1 PRN PRN Reason: Hypoglycemia Hydromorphone HCl (Dilaudid Inj) 1 mg IV Q4H PRN PRN PRN Reason: Pain Score 6-10/10 Last Admin: 12/13/19 05:22 Dose: 1 mg Documented by: Vancomycin IV Pharmacy to Dose (1 ea/ Sodium Chloride) 500 mls @ 250 mls/hr IV PRN PRN; Protocol PRN Reason: Rx to Dose Piperacillin Sod/Tazobactam (Sod 3.375 gm/ Sodium Chloride) 50 mls @ 12.5 mls/hr IV Q8 [facility]CLUDES [facility] Last Admin: 12/15/19 06:38 Dose: 12.5 mls/hr Documented by: Sodium Chloride () 250 mls @ 15 mls/hr IV .[id number] PRN PRN Reason: Saline Flush Last Infusion: 12/15/19 06:38 Dose: 0 mls/hr Documented by: Sodium Chloride () 250 mls @ 15 mls/hr IV .[id number] PRN PRN Reason: Additional IVPB Infusion Last Infusion: 12/14/19 16:01 Dose: 0 mls/hr Documented by: Vancomycin HCl (Vancomycin) 1,000 mg in 200 mls @ 200 mls/hr IV Q12H COUNT INCLUDES THE [facility] Last Infusion: 12/15/19 04:23 Dose: Infused Documented by: Insulin Human Lispro (Humalog Kwikpen (Bkc)) 0 unit SC ACHS COUNT INCLUDES THE [facility]; Protocol Last Admin: 12/15/19 06:43 Dose: Not Given Documented by: Nutritional Formula (Singh - [place] Flavor) 1 packet PO BIDCM COUNT INCLUDES THE [facility] Last Admin: 12/14/19 16:55 Dose: 1 packet Documented by: Oxycodone HCl (Oxyir) 10 mg PO Q4H PRN PRN PRN Reason: Pain 1-10 or Fever Last Admin: 12/15/19 03:31 Dose: 10 mg Documented by: Sodium Chloride () 10 - 40 ml IV UD PRN PRN Reason: SALINE FLUSH Last Admin: 12/15/19 03:28 Dose: 10 ml Documented by: Sodium Hypochlorite (Dakins Solution 0.25% (1/2 Strength)) 1 applic TOPICAL DAILY RACHANA; Protocol Last Admin: 12/14/19 11:50 Dose: 1 applic Documented by: Venlafaxine HCl (Effexor Xr) 37.5 mg PO DAILY [facility] Last Admin: 12/14/19 09:10 Dose: 37.5 mg Documented by: STROKE Vital Signs/Narrative: Vital Signs Pulse Ox 12/15/19 07:29 96 Medical Necessity - Tobacco Use Smoking Status: Never smoker Tobacco Use: Non-smoker Assessment/Plan All Active Problems Osteomyelitis of foot, right, acute (Acute) Cellulitis of foot, right (Acute) Type 2 diabetes mellitus with diabetic polyneuropathy (Acute) Venous ulcer of right lower extremity without varicose veins (Resolved) Varicose veins of right lower extremity with ulcer (Resolved) Patient is a 69-year-old male admitted with cellulitis and osteomyelitis involving the right lower extremity as a result of healing plantar wound 1. Acute cellulitis and osteomyelitis involving the right lower extremity with a nonhealing right plantar wound ?Patient underwent Excisional debridement of right heel ulcer including muscle and bone. Calcaneus bone biopsy, right on 12/12/2019 by podiatry. Cultures sent for positive for gram-positive organisms final identification and sensitivities pending. Patient is on vancomycin and Zosyn continued with consultation placed to infectious disease ?12/15/2019:Wound cultures positive for staph epi and corynebacterium seen in consultation by Dr. Holt who recommended 6-week IV antibiotic therapy. PICC line was ordered the day prior. 2. Diabetes mellitus type 2 ?Managed with diet placed on Accu-Cheks before meals and at bedtime with sliding scale coverage 3. Peripheral arterial disease severe ?Patient is followed by vascular surgeon Dr. Navas as outpatient 4. Coronary artery disease with previous CABG ?Patient is on dual antiplatelet therapy 5. DVT prophylaxis - On enoxaparin Inpatient E&M: [id number] [facility] L2
--- NOTE | 2019-12-15 08:33 | PCM.WORK.EX ---
Work/School Excuse Work/School Excuse for:: Patient Please excuse this person from:: Work From: 12/11/19 through: 12/18/19
[2019-12-15] MEDS: DAKIN'S SOL HALF STRENGTH (=0.25%) 1 APPLIC TOPICAL (08:54)
[2019-12-15] MEDS: Aspirin 325 MG Tablet PO (08:54)
[2019-12-15] MEDS: Enoxaparin 40 MG/0.4 ML Syringe SC (08:55)
[2019-12-15] MEDS: Clopidogrel Bisulfate 75 MG Tablet PO (08:55)
[2019-12-15] MEDS: Venlafaxine XR 37.5 MG Capsule PO (08:55)
[2019-12-15] MEDS: Acetaminophen 325 MG Tablet 650 MG PO (08:58)
[2019-12-15 09:30] VITALS: BP 139/70; PULSE 68; RESP 18; TEMP 37; O2SAT 97
--- NOTE | 2019-12-15 10:00 | CASEMGMT ---
Addendum entered by Savanna Stephenson 12/15/19 13:43: Received call back from [facility] cost for ATBs is $369 per week and $280 for supplies. MARLYS FULTON and KANDI in to update patient and regarding home ATB cost and acceptance to TCU. Patient can go to TCU today. MARLYS FULTON updated [facility] and [facility] regarding discharge to TCU. Hospitalist, podiatry, and ID updated regarding new discharge plan. Addendum entered by Savanna Stephenson 12/15/19 10:30: MARLYS FULTON back to updated patient of potential discharge for today to home. Patient states he talked with and she is not ready for him to return home and would like patient to discharge to TCU. MARLYS FULTON updated KANDI Brian regarding changed plan to TCU if bed available. MARLYS FULTON will update [facility] if patient is accepted to TCU. CM will continue to follow this patient and plan for a safe discharge. Original Note: MARLYS FULTON in to discuss discharge planning with patient. MARLYS FULTON received scripts for IV ATBs. MARLYS FULTON asked patient if he and his reviewed HHC and infusion company list. Patient states some and reviewed list again. Patient would like [facility]. MARLYS FULTON clarified dosing time of ATBs with ID. Per ID, will order ertapenem now and will receive Vanco at 3pm, patient can receive next dose of Vanco at 8am 12/16/19. MARLYS FULTON sent referrals to [facility] and [facility] infusion. Will continue to plan for a safe discharge.
--- NOTE | 2019-12-15 10:13 | PN.ID_ITS ---
Patient Problems: Active and Suspected Problems Osteomyelitis of foot, right, acute (Acute) Cellulitis of foot, right (Acute) Type 2 diabetes mellitus with diabetic polyneuropathy (Acute) Ulcer of right foot with necrosis of bone (Suspected) Subjective: Feeling ok, no fever, no n/v/d, no foot pain - Physical Exam Vitals/I&O's: Vital Signs Temp Pulse Resp BP Pulse Ox 97.9 F 64 16 138/78 H 96 12/15/19 03:33 12/15/19 03:33 12/15/19 03:33 12/15/19 03:33 12/15/19 07:29 Oxygen Delivery Method Room Air Weight: 76.9 kg Body Mass Index (BMI) 26.6 Intake and Output for Last 24 Hours 12/13/19 12/14/19 12/15/19 23:59 23:59 23:59 Intake Total 1741.50 / 2041.50 1315.75 / 1315.75 511.00 / 511.00 Output Total 1700 / 1950 2750 / 2750 500 / 500 Balance 41.50 / 91.50 -1434.25 / -1434.25 11.00 / 11.00 General: Alert, Cooperative, No apparent distress Lungs: Clear to auscultation, Normal air movement Cardiovascular: Regular rate, Regular Rhythm Abdomen: Soft, Non Tender, Non-Distended Skin: Ulcer/ Wound - foot wrapped Microbiology Past 72 Hours 12/12/19 09:00 Wound - Right Foot Gram Stain - Final 12/12/19 09:00 Wound - Right Foot Wound Culture - Final Staphylococcus epidermidis Corynebacterium striatum 12/12/19 09:00 Wound - Right Foot Anaerobic Culture - Final No anaerobic bacteria isolated. 12/12/19 Unknown Tissue - Right Foot Gram Stain - Final 12/12/19 Unknown Tissue - Right Foot Wound Culture - Final No growth aerobically. 12/12/19 Unknown Tissue - Right Foot Anaerobic Culture - Preliminary No growth in 48 hours. 12/12/19 Unknown Bone - Right Foot Gram Stain - Final 12/12/19 Unknown Bone - Right Foot Wound Culture - Final Staphylococcus epidermidis 12/12/19 Unknown Bone - Right Foot Anaerobic Culture - Preliminary Checking for anaerobes, further studies to follow. 12/11/19 14:50 Blood Culture (Wb) - Left Forearm Blood Culture - Preliminary No growth in 48 hours. 12/11/19 14:53 Blood Culture (Wb) - Anticubital Right Blood Culture - Preliminary No growth in 48 hours. Laboratory Results 12/14/19 11:49: POC Glucose 111 H 12/14/19 16:47: POC Glucose 182 H 12/14/19 21:29: POC Glucose 135 H 12/15/19 03:10: Vancomycin Trough 17.2 H 12/15/19 03:10: WBC 5.1, RBC 4.13 L, Hgb 13.1, Hct 40.6, MCV 98.3 H, MCH 31.7, MCHC 32.3, RDW Std Deviation 49.6 H, RDW Coeff of Melodie 13.9, Plt Count 225, MPV 9 .1 12/15/19 03:10: Sodium 139, Potassium 3.9, Chloride 107, Carbon Dioxide 26.0, Anion Gap 6, BUN 25 H, Creatinine 1.00, Estim Creat Clear Calc 67.45, Est GFR (MDRD) Af Amer 95, Est GFR (MDRD) Non-Af 79, BUN/Creatinine Ratio 25.0 H, Glucose 117 H, Calcium 8.6, Magnesium 2.5 12/15/19 06:43: POC Glucose 128 H Current Medications Acetaminophen (Tylenol) 650 mg PO Q6H PRN PRN PRN Reason: Pain Score 1-10/Temp > 100.7 F Last Admin: 12/15/19 08:58 Dose: 650 mg Documented by: Al Hydroxide/Mg Hydroxide (Mylanta Ii) 30 ml PO Q6H PRN PRN PRN Reason: Gastric Burning Last Admin: 12/12/19 23:48 Dose: 30 ml Documented by: Albuterol Sulfate (Ventolin Aerosols) 2.5 mg INHALATION Q2H PRN PRN PRN Reason: Shortness of Breath/Wheezing [facility]) [facility] Last Admin: 12/15/19 08:54 Dose: 325 mg Documented by: Clopidogrel Bisulfate (Plavix) 75 mg PO DAILY [facility] Last Admin: 12/15/19 08:55 Dose: 75 mg Documented by: Dextrose (D50w Syringe) 0 gm IV X1 PRN; Protocol PRN Reason: Hypoglycemia Diclofenac Sodium (Voltaren) 1 applic TP 4X/DAY PRN PRN PRN Reason: pain (1-10)-R leg and R thigh Last Admin: 12/13/19 21:05 Dose: 1 applicatio Documented by: Enoxaparin Sodium (Lovenox) 40 mg SC DAILY [facility] Last Admin: 12/15/19 08:55 Dose: 40 mg Documented by: Glucagon () 1 mg IM .X1 PRN PRN Reason: Hypoglycemia Hydromorphone HCl (Dilaudid Inj) 1 mg IV Q4H PRN PRN PRN Reason: Pain Score 6-10/10 Last Admin: 12/13/19 05:22 Dose: 1 mg Documented by: Vancomycin IV Pharmacy to Dose (1 ea/ Sodium Chloride) 500 mls @ 250 mls/hr IV PRN PRN; Protocol PRN Reason: Rx to Dose Sodium Chloride () 250 mls @ 15 mls/hr IV .[id number] PRN PRN Reason: Saline Flush Last Infusion: 12/15/19 06:38 Dose: 0 mls/hr Documented by: Sodium Chloride () 250 mls @ 15 mls/hr IV .[id number] PRN PRN Reason: Additional IVPB Infusion Last Infusion: 12/14/19 16:01 Dose: 0 mls/hr Documented by: Vancomycin HCl (Vancomycin) 1,000 mg in 200 mls @ 200 mls/hr IV Q12H [facility] Last Infusion: 12/15/19 04:23 Dose: Infused Documented by: Piperacillin Sod/Tazobactam (Sod 3.375 gm/ Sodium Chloride) 50 mls @ 12.5 mls/hr IV Q8 [facility] Insulin Human Lispro (Humalog Kwikpen (Bkc)) 0 unit [facility]; Protocol Last Admin: 12/15/19 06:43 Dose: Not Given Documented by: Nutritional Formula (Singh - [place] Flavor) 1 packet PO BIDCM [facility] Last Admin: 12/15/19 08:54 Dose: 1 packet Documented by: Oxycodone HCl (Oxyir) 10 mg PO Q4H PRN PRN PRN Reason: Pain 1-10 or Fever Last Admin: 12/15/19 03:31 Dose: 10 mg Documented by: Sodium Chloride () 10 - 40 ml IV UD PRN PRN Reason: SALINE FLUSH Last Admin: 12/15/19 03:28 Dose: 10 ml Documented by: Sodium Hypochlorite (Dakins Solution 0.25% (1/2 Strength)) 1 applic TOPICAL DAILY [facility]; Protocol Last Admin: 12/15/19 08:54 Dose: 1 applic Documented by: Venlafaxine HCl (Effexor Xr) 37.5 mg PO DAILY [facility] Last Admin: 12/15/19 08:55 Dose: 37.5 mg Documented by: Medical Necessity - Tobacco Use Smoking Status: Never smoker Tobacco Use: Non-smoker Route of nutrition/ use of supplements: [] Nutritional Intake: [] IV Site: [] Baires Catheter: [] - Assessment/Plan Antibiotics: [] Assessment/Plan: [] Active and Suspected Problems Osteomyelitis of foot, right, acute (Acute) Cellulitis of foot, right (Acute) Type 2 diabetes mellitus with diabetic polyneuropathy (Acute) Ulcer of right foot with necrosis of bone (Suspected) R heel osteo with DM neuropathy and PAD - bone bx and debridement by Dr. Good 12/12/19. Surg cx with MRSE and corynebacteria. Prior cxs with anaerobes and enterobacter and P. acnes as well. On vanc/zosyn. Ok for d/c home on 6 weeks iv vanc and ertapenem, stop date 01/23/20, weekly bmp, cbc, LFT, esr, and vanc trough. Will follow, d/w clinical case manager. Wrote rx for labs and abx. ID followup in 2 weeks.
--- NOTE | 2019-12-15 10:33 | CASEMGMT ---
Addendum entered by Savanna Brian 12/15/19 13:37: Pt is discharging to TCU today. KANDI placed a call to Coco in TCU and updated her. Plan: TCU today Addendum entered by Savanna Brian 12/15/19 13:31: SW received call from Coco in TCU stating TCU is able to accept pt today if medically cleared. MARLYS FULTON and KANDI in to speak with pt and pt's Ju present in room. SW updated pt and Ju on acceptance to TCU and Medicare coverage. Pt and Ju agreeable to TCU at discharge. Physician updated. Plan: TCU once medically cleared Original Note: Social Work Note RN KIRSTIN updated this worker that pt is now agreeable to TCU. KANDI placed a call to referral line and spoke with Ccoo. Coco states she thinks she has a bed available today, will review referral and then give this worker a call back. AKNDI waiting for call back. Savanna Brian CERAMICS TECHNICIAN, STADIUM MANAGER
[2019-12-15 11:20] LABS: Bedside Glucose 133 mg/dL (70-110)
--- NOTE | 2019-12-15 13:35 | TREXTCAR_ITS ---
- Diet 12/13/19 00:48 Diet: Cardiac: Calorie-Controlled Is pt able to select menu?: Yes Diet Comments: ADVANCE TOLERATED How many daily calories?: 1800 calorie - Routine Orders/Code Status Routine Lab Work: CBC - Weekly, BMP - weekly Code Status: Full Code - Wound(s) R HEEL Wound Type: Neuropathic/Diabetic Foot Ulcer Dressing Change: Dakins moistened gauze - Therapies Physical Therapy: Eval and Treat Occupational Therapy: Eval and Treat - Allergies/Procedures Done in Hospital Allergies/Adverse Reactions: Allergies morphine Allergy (Verified 12/11/19 16:26) PT UNSURE OF REACTION i was told after surgery that i shouldn't have it rivaroxaban [From Xarelto] Allergy (Verified 12/11/19 14:29) Other - Type of Care/Length of Stay Estimated LOS: Convalescent Care Less Than 30 days Type of Care Needed: Skilled Rehab Potential: Good Prognosis: Good - Additional Orders/Day of Discharge Day of Discharge: 12/15/19 - Dietary and Speech Recommendations Dietitian Recommendations/Changes: Rec [employer] consult as indicated as pt reports some issues chew/swallowing r/t dry mouth. Rec KENZIE Cardiac:CHO controlled as pt medically able. Will provide Singh 1 packet BID to promote wound healing. Will discontinue Glucerna shake 120 ml 4x/day. - Follow Up Care Primary Care Physician: Mckayla Silva DO [Primary Care Provider] -
--- NOTE | 2019-12-15 13:41 | DS.PCM_ITS ---
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 (Suspected) Date of Admission: 12/11/19 Date of Discharge: 12/15/19 - Primary Discharge Diagnosis Acute Problems: Active Problems Osteomyelitis of foot, right, acute (Acute) Cellulitis of foot, right (Acute) Type 2 diabetes mellitus with diabetic polyneuropathy (Acute) Suspected Problems: Suspected Problems Ulcer of right foot with necrosis of bone (Suspected) - Secondary Discharge Diagnosis Chronic Problems: Chronic Problems Type 2 diabetes, uncontrolled, with ulcer of heel (Chronic) right plantar heel Stage II pressure ulcer of sacral region (Chronic) Diabetes with ulcer of toe (Chronic) PAD (peripheral artery disease) (Chronic) Cellulitis and abscess of foot (Chronic) Type 2 diabetes, controlled, with ulcer of heel (Chronic) Non-healing open wound of heel (Chronic) Hyperlipidemia (Chronic) Peripheral vascular disease (Chronic) Hypertension (Chronic) Coronary artery disease (Chronic) Status post CABG Type II diabetes mellitus (Chronic) Valdez grade 3 Hospital Course and Treatment Imaging Results: Clinical Impression(s) from Imaging Studies Foot X-Ray 12/11/19 15:03 IMPRESSION: There is generalized soft tissue swelling. And an area of subcutaneous emphysema volar to the calcaneus has become more conspicuous and larger than on the previous study. This is consistent with an ulceration. Additionally, there is now worsening subtle erosive changes in the anterior inferior calcaneus which may represent early changes of osteomyelitis. This area of the calcaneus has become more fuzzy and ill-defined compared to the previous study. Profound osteopenia with polyarticular arthrosis Diffuse soft tissue swelling Stable calcaneal spurs Vascular calcifications Electronically Signed: hSamir Cano MD at 15:29 EDT , Service support , Ankle X-Ray 12/12/19 09:38 IMPRESSION: Changes involving the plantar calcaneus suspicious for early osteomyelitis. Osteopenia, vascular calcification, soft tissue ulceration and prior surgical intervention. Electronically Signed: Felecia Lizama MD at 4:19 EDT , Service support , Chest X-Ray 12/12/19 10:03 IMPRESSION: No acute cardiopulmonary disease or major interval change. Electronically Signed: Clovis Fitzgerald DO at 17:09 EDT Tel [phone], Service support , Os Calcis X-ray 12/12/19 12:07 IMPRESSION: Intraoperative fluoroscopic image guidance. Electronically Signed: Felecia Lizama MD at 5:01 EDT , Service support , Microbiology 12/12/19 09:00 Gram Stain - Final Wound - Right Foot Wound Culture - Final Staphylococcus epidermidis Corynebacterium striatum Anaerobic Culture - Final No anaerobic bacteria isolated. 12/12/19 Unknown Gram Stain - Final Tissue - Right Foot Wound Culture - Final No growth aerobically. Anaerobic Culture - Preliminary No growth in 48 hours. 12/12/19 Unknown Gram Stain - Final Bone - Right Foot Wound Culture - Final Staphylococcus epidermidis Anaerobic Culture - Preliminary Checking for anaerobes, further studies to follow. Consultations 12/14/19 09:04 Consult: Onc/Wound/data designer Routine Comment: Reason for Consult:: right heel ulcer Operations: None Summary of Care Provided: Patient is a 69-year-old male admitted with cellulitis and osteomyelitis involving the right lower extremity as a result of healing plantar wound 1. Acute cellulitis and osteomyelitis involving the right lower extremity with a nonhealing right plantar wound ?Patient underwent Excisional debridement of right heel ulcer including muscle and bone. Calcaneus bone biopsy, right on 12/12/2019 by podiatry. Cultures sent for positive for gram-positive organisms final identification and sensitivities pending. Patient is on vancomycin and Zosyn continued with consultation placed to infectious disease ?12/15/2019:Wound cultures positive for staph epi and corynebacterium seen in consultation by Dr. Holt who recommended 6-week IV antibiotic therapy. PICC line was placed and patient discharged on vancomycin and ertapenem 2. Diabetes mellitus type 2 ?Managed with diet placed on Accu-Cheks before meals and at bedtime with sliding scale coverage 3. Peripheral arterial disease severe ?Patient is followed by vascular surgeon Dr. Navas as outpatient 4. Coronary artery disease with previous CABG ?Patient is on dual antiplatelet therapy 5. DVT prophylaxis - On enoxaparin Patient Problems: Active and Suspected Problems Osteomyelitis of foot, right, acute (Acute) Cellulitis of foot, right (Acute) Type 2 diabetes mellitus with diabetic polyneuropathy (Acute) Ulcer of right foot with necrosis of bone (Suspected) Objective: GENERAL: cooperative HEENT: Atraumatic; EYES; Anicteric, Normal Conjunctiva NECK; supple, normal thyroid, RESPIRATORY: Diminished to auscultation CARDIOVASCULAR: Regular S1 S2, GI: soft, normoactive bowel sounds, : No Renal angle tenderness; SKIN: No Rash PSYCH; Flat affect - Physical Exam Vitals/I&O's: Vital Signs Temp Pulse Resp BP Pulse Ox 989.6 F H 68 18 139/70 H 97 12/15/19 09:30 12/15/19 09:30 12/15/19 09:30 12/15/19 09:30 12/15/19 09:30 Oxygen Delivery Method Room Air Weight: 76.9 kg Body Mass Index (BMI) 26.6 Intake and Output for Last 24 Hours 12/13/19 12/14/19 12/15/19 23:59 23:59 23:59 Intake Total 1741.50 / 2041.50 1315.75 / 1315.75 569.00 / 569.00 Output Total 1700 / 1950 2750 / 2750 500 / 500 Balance 41.50 / 91.50 -1434.25 / -1434.25 69.00 / 69.00 Microbiology Past 72 Hours 12/12/19 09:00 Wound - Right Foot Gram Stain - Final 12/12/19 09:00 Wound - Right Foot Wound Culture - Final Staphylococcus epidermidis Corynebacterium striatum 12/12/19 09:00 Wound - Right Foot Anaerobic Culture - Final No anaerobic bacteria isolated. 12/12/19 Unknown Tissue - Right Foot Gram Stain - Final 12/12/19 Unknown Tissue - Right Foot Wound Culture - Final No growth aerobically. 12/12/19 Unknown Tissue - Right Foot Anaerobic Culture - Preliminary No growth in 48 hours. 12/12/19 Unknown Bone - Right Foot Gram Stain - Final 12/12/19 Unknown Bone - Right Foot Wound Culture - Final Staphylococcus epidermidis 12/12/19 Unknown Bone - Right Foot Anaerobic Culture - Preliminary Checking for anaerobes, further studies to follow. 12/11/19 14:50 Blood Culture (Wb) - Left Forearm Blood Culture - Preliminary No growth in 48 hours. 12/11/19 14:53 Blood Culture (Wb) - Anticubital Right Blood Culture - Preliminary No growth in 48 hours. Laboratory Results 12/14/19 16:47: POC Glucose 182 H 12/14/19 21:29: POC Glucose 135 H 12/15/19 03:10: Vancomycin Trough 17.2 H 12/15/19 03:10: WBC 5.1, RBC 4.13 L, Hgb 13.1, Hct 40.6, MCV 98.3 H, MCH 31.7, MCHC 32.3, RDW Std Deviation 49.6 H, RDW Coeff of Melodie 13.9, Plt Count 225, MPV 9.1 12/15/19 03:10: Sodium 139, Potassium 3.9, Chloride 107, Carbon Dioxide 26.0, Anion Gap 6, BUN 25 H, Creatinine 1.00, Estim Creat Clear Calc 67.45, Est GFR (MDRD) Af Amer 95, Est GFR (MDRD) Non-Af 79, BUN/Creatinine Ratio 25.0 H, Glucose 117 H, Calcium 8.6, Magnesium 2.5 12/15/19 06:43: POC Glucose 128 H 12/15/19 11:14: POC Glucose 133 H Current Medications Acetaminophen (Tylenol) 650 mg PO Q6H PRN PRN PRN Reason: Pain Score 1-10/Temp > 100.7 F Last Admin: 12/15/19 08:58 Dose: 650 mg Documented by: Al Hydroxide/Mg Hydroxide (Mylanta Ii) 30 ml PO Q6H PRN PRN PRN Reason: Gastric Burning Last Admin: 12/12/19 23:48 Dose: 30 ml Documented by: Albuterol Sulfate (Ventolin Aerosols) 2.5 mg INHALATION Q2H PRN PRN PRN Reason: Shortness of Breath/Wheezing [facility] Last Admin: 12/15/19 08:54 Dose: 325 mg Documented by: Clopidogrel Bisulfate (Plavix) 75 mg PO DAILY [facility] Last Admin: 12/15/19 08:55 Dose: 75 mg Documented by: Dextrose (D50w Syringe) 0 gm IV X1 PRN; Protocol PRN Reason: Hypoglycemia Diclofenac Sodium (Voltaren) 1 applic TP 4X/DAY PRN PRN PRN Reason: pain (1-10)-R leg and R thigh Last Admin: 12/13/19 21:05 Dose: 1 applicatio Documented by: Enoxaparin Sodium (Lovenox) 40 mg SC DAILY [facility] Last Admin: 12/15/19 08:55 Dose: 40 mg Documented by: Glucagon () 1 mg IM .X1 PRN PRN Reason: Hypoglycemia Hydromorphone HCl (Dilaudid Inj) 1 mg IV Q4H PRN PRN PRN Reason: Pain Score 6-10/10 Last Admin: 12/13/19 05:22 Dose: 1 mg Documented by: Vancomycin IV Pharmacy to Dose (1 ea/ Sodium Chloride) 500 mls @ 250 mls/hr IV PRN PRN; Protocol PRN Reason: Rx to Dose Sodium Chloride () 250 mls @ 15 mls/hr IV .[id number] PRN PRN Reason: Saline Flush Last Infusion: 12/15/19 11:10 Dose: 0 mls/hr Documented by: Sodium Chloride () 250 mls @ 15 mls/hr IV .[id number] PRN PRN Reason: Additional IVPB Infusion Last Infusion: 12/14/19 16:01 Dose: 0 mls/hr Documented by: Vancomycin HCl (Vancomycin) 1,000 mg in 200 mls @ 200 mls/hr IV Q12H [facility]AC[facility] Last Infusion: 12/15/19 04:23 Dose: Infused Documented by: Insulin Human Lispro (Humalog Kwikpen (Bkc)) 0 unit SC ACHS [facility]; Protocol Last Admin: 12/15/19 11:17 Dose: Not Given Documented by: Nutritional Formula (Singh - [place] Flavor) 1 packet PO BIDCM [facility] Last Admin: 12/15/19 08:54 Dose: 1 packet Documented by: Oxycodone HCl (Oxyir) 10 mg PO Q4H PRN PRN PRN Reason: Pain 1-10 or Fever Last Admin: 12/15/19 11:11 Dose: 10 mg Documented by: Sodium Chloride () 10 - 40 ml IV UD PRN PRN Reason: SALINE FLUSH Last Admin: 12/15/19 03:28 Dose: 10 ml Documented by: Sodium Hypochlorite (Dakins Solution 0.25% (1/2 Strength)) 1 applic TOPICAL DAILY [facility]; Protocol Last Admin: 12/15/19 08:54 Dose: 1 applic Documented by: Venlafaxine HCl (Effexor Xr) 37.5 mg PO DAILY [facility] Last Admin: 12/15/19 08:55 Dose: 37.5 mg Documented by: Discharge Diet: No Restrictions Discharge Activity: Return to Normal Activity, May not drive while taking narcotic pain medications. Home Medications: Medications to take at Discharge Aspirin [Lite Coat Aspirin] 325 mg PO DAILY 06/13/18 Cholecalciferol (Vitamin D3) [Vitamin D3] 5,000 mg PO DAILY 06/13/18 Clopidogrel Bisulfate [Clopidogrel] 75 mg PO DAILY 09/08/18 Venlafaxine HCl 37.5 mg PO DAILY 12/11/19 Diclofenac Sodium [Voltaren] 12/12/19 Acetaminophen [Tylenol Tablet] 650 mg PO Q6H PRN PRN tablet 12/15/19 Ertapenem Sodium [Ertapenem] 1 gm IV Q24H 40 Days #40 vial 12/15/19 Glucagon 1 mg IM .X1 PRN syringe 12/15/19 Insulin Lispro [Humalog KwikPen] See Protocol SC ACHS insuln.pen 12/15/19 Mag Hydrox/Al Hydrox/Simeth [Mylanta II] 30 ml PO Q6H PRN PRN udc 12/15/19 Nutritional Supplement [Singh - ORANGE FLAVOR] 1 packet PO BIDCM packet 12/15/19 Oxycodone [Oxyir] 10 mg PO Q4H PRN PRN 3 Days #12 tab 12/15/19 Vancomycin IV [Vancomycin] 1,000 mg IV Q12H 40 Days #80 bag 12/15/19 Following Prescrptions Were Given to Patient: Ertapenem Sodium [Ertapenem] 1 gm IV Q24H 40 Days #40 vial Prescription Printed Oxycodone [Oxyir] 10 mg PO Q4H PRN PRN 3 Days #12 tab PRN Reason: Pain Score 4-10/10 Prescription Printed Vancomycin IV [Vancomycin] 1,000 mg IV Q12H 40 Days #80 bag Prescription Printed Primary Care Physician: Mckayla Silva DO [Primary Care Provider] - [facility]position[facility] Minutes spent on discharge:: 35 Patient Condition:: Stable Medical Necessity - Tobacco Use Smoking Status: Never smoker Tobacco Use: Non-smoker Meaningful Use Info Meaningful Use Diagnoses (Choose all that apply): None applicable Inpatient E&M: 68288 Disch Hosp
--- NOTE | 2019-12-15 13:58 | PN_ITS ---
Patient Problems: Active and Suspected Problems Osteomyelitis of foot, right, acute (Acute) Cellulitis of foot, right (Acute) Type 2 diabetes mellitus with diabetic polyneuropathy (Acute) Ulcer of right foot with necrosis of bone (Suspected) Subjective: This is 69-year-old male with multiple comorbidities who was seen bedside pos toperative day #3 right heel debridement with additional bone biopsy of the calcaneus. He denies fever, chill, nausea, vomiting. His pain is reduced. He had a PICC line placed today and will be transitioned over to the transitional care unit for IV antibiotics, rehabilitation, and wound care. - Physical Exam Vitals/I&O's: Vital Signs Temp Pulse Resp BP Pulse Ox 989.6 F H 68 18 139/70 H 97 12/15/19 09:30 12/15/19 09:30 12/15/19 09:30 12/15/19 09:30 12/15/19 09:30 Oxygen Delivery Method Room Air Weight: 76.9 kg Body Mass Index (BMI) 26.6 Intake and Output for Last 24 Hours 12/13/19 12/14/19 12/15/19 23:59 23:59 23:59 Intake Total 1741.50 / 2041.50 1315.75 / 1315.75 569.00 / 569.00 Output Total 1700 / 1950 2750 / 2750 500 / 500 Balance 41.50 / 91.50 -1434.25 / -1434.25 69.00 / 69.00 General: Alert, Oriented x3, Cooperative HEENT: Atraumatic Extremities: No edema Skin: - - Dressing clean, dry, and intact Musculoskeletal: Muscle Wasting Psych/Mental Status: Normal Affect, Appropriate Microbiology Past 72 Hours 12/12/19 09:00 Wound - Right Foot Gram Stain - Final 12/12/19 09:00 Wound - Right Foot Wound Culture - Final Staphylococcus epidermidis Corynebacterium striatum 12/12/19 09:00 Wound - Right Foot Anaerobic Culture - Final No anaerobic bacteria isolated. 12/12/19 Unknown Tissue - Right Foot Gram Stain - Final 12/12/19 Unknown Tissue - Right Foot Wound Culture - Final No growth aerobically. 12/12/19 Unknown Tissue - Right Foot Anaerobic Culture - Preliminary No growth in 48 hours. 12/12/19 Unknown Bone - Right Foot Gram Stain - Final 12/12/19 Unknown Bone - Right Foot Wound Culture - Final Staphylococcus epidermidis 12/12/19 Unknown Bone - Right Foot Anaerobic Culture - Preliminary Checking for anaerobes, further studies to follow. 12/11/19 14:50 Blood Culture (Wb) - Left Forearm Blood Culture - Preliminary No growth in 48 hours. 12/11/19 14:53 Blood Culture (Wb) - Anticubital Right Blood Culture - Preliminary No growth in 48 hours. Laboratory Results 12/14/19 16:47: POC Glucose 182 H 12/14/19 21:29: POC Glucose 135 H 12/15/19 03:10: Vancomycin Trough 17.2 H 12/15/19 03:10: WBC 5.1, RBC 4.13 L, Hgb 13.1, Hct 40.6, MCV 98.3 H, MCH 31.7, MCHC 32.3, RDW Std Deviation 49.6 H, RDW Coeff of Melodie 13.9, Plt Count 225, MPV 9.1 12/15/19 03:10: Sodium 139, Potassium 3.9, Chloride 107, Carbon Dioxide 26.0, Anion Gap 6, BUN 25 H, Creatinine 1.00, Estim Creat Clear Calc 67.45, Est GFR (MDRD) Af Amer 95, Est GFR (MDRD) Non-Af 79, BUN/Creatinine Ratio 25.0 H, Glucose 117 H, Calcium 8.6, Magnesium 2.5 12/15/19 06:43: POC Glucose 128 H 12/15/19 11:14: POC Glucose 133 H Current Medications Acetaminophen (Tylenol) 650 mg PO Q6H PRN PRN PRN Reason: Pain Score 1-10/Temp > 100.7 F Last Admin: 12/15/19 08:58 Dose: 650 mg Documented by: Al Hydroxide/Mg Hydroxide (Mylanta Ii) 30 ml PO Q6H PRN PRN PRN Reason: Gastric Burning Last Admin: 12/12/19 23:48 Dose: 30 ml Documented by: Albuterol Sulfate (Ventolin Aerosols) 2.5 mg INHALATION Q2H PRN PRN PRN Reason: Shortness of Breath/Wheezing [facility]) [facility] Last Admin: 12/15/19 08:54 Dose: 325 mg Documented by: Clopidogrel Bisulfate (Plavix) 75 mg PO DAILY [facility] Last Admin: 12/15/19 08:55 Dose: 75 mg Documented by: Dextrose (D50w Syringe) 0 gm IV X1 PRN; Protocol PRN Reason: Hypoglycemia Diclofenac Sodium (Voltaren) 1 applic TP 4X/DAY PRN PRN PRN Reason: pain (1-10)-R leg and R thigh Last Admin: 12/13/19 21:05 Dose: 1 applicatio Documented by: Enoxaparin Sodium (Lovenox) 40 mg SC DAILY [facility] Last Admin: 12/15/19 08:55 Dose: 40 mg Documented by: Glucagon () 1 mg IM .X1 PRN PRN Reason: Hypoglycemia Hydromorphone HCl (Dilaudid Inj) 1 mg IV Q4H PRN PRN PRN Reason: Pain Score 6-10/10 Last Admin: 12/13/19 05:22 Dose: 1 mg Documented by: Vancomycin IV Pharmacy to Dose (1 ea/ Sodium Chloride) 500 mls @ 250 mls/hr IV PRN PRN; Protocol PRN Reason: Rx to Dose Sodium Chloride () 250 mls @ 15 mls/hr IV .[id number] PRN PRN Reason: Saline Flush Last Infusion: 12/15/19 11:10 Dose: 0 mls/hr Documented by: Sodium Chloride () 250 mls @ 15 mls/hr IV .[id number] PRN PRN Reason: Additional IVPB Infusion Last Infusion: 12/14/19 16:01 Dose: 0 mls/hr Documented by: Vancomycin HCl (Vancomycin) 1,000 mg in 200 mls @ 200 mls/hr IV Q12H [facility] Last Infusion: 12/15/19 04:23 Dose: Infused Documented by: Insulin Human Lispro (Humalog Kwikpen (Bkc)) 0 unit SC ACHS [facility]; Protocol Last Admin: 12/15/19 11:17 Dose: Not Given Documented by: Nutritional Formula (Singh - [place] Flavor) 1 packet PO BIDCM [facility] Last Admin: 12/15/19 08:54 Dose: 1 packet Documented by: Oxycodone HCl (Oxyir) 10 mg PO Q4H PRN PRN PRN Reason: Pain 1-10 or Fever Last Admin: 12/15/19 11:11 Dose: 10 mg Documented by: Sodium Chloride () 10 - 40 ml IV UD PRN PRN Reason: SALINE FLUSH Last Admin: 12/15/19 03:28 Dose: 10 ml Documented by: Sodium Hypochlorite (Dakins Solution 0.25% (1/2 Strength)) 1 applic TOPICAL DAILY [facility]; Protocol Last Admin: 12/15/19 08:54 Dose: 1 applic Documented by: Venlafaxine HCl (Effexor Xr) 37.5 mg PO DAILY [facility] Last Admin: 12/15/19 08:55 Dose: 37.5 mg Documented by: Medical Necessity - Tobacco Use Smoking Status: Never smoker Tobacco Use: Non-smoker Assessment/Plan All Active Problems Osteomyelitis of foot, right, acute (Acute) Cellulitis of foot, right (Acute) Type 2 diabetes mellitus with diabetic polyneuropathy (Acute) Venous ulcer of right lower extremity without varicose veins (Resolved) Varicose veins of right lower extremity with ulcer (Resolved) 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 He remains afebrile and vitals are stable. No leukocytosis today. Reviewed importance of keeping this offloaded at all times. Patient on antibiotics. Infectious disease recommendations are appreciated. He will complete an extended course of IV vancomycin and ertapenem with a stop date of 01-23-2020. Pathology calcaneaus bone biopsy results are still pending. Healing capability is guarded given his poor circulation. He will continue to follow up with Dr. Navas in the out patient setting. Nutrition optimization was reviewed and encouraged to automotive electrician helper his healing process. He will be transferred to the transitional care unit most likely later today and I will follow him while he is at that new location. Please call if questions. Jenniffer Good DPM, [facility] [phone]
[2019-12-15 15:30] VITALS: BP 140/67; PULSE 64; RESP 16; TEMP 36.4; O2SAT 97
[2019-12-15] MEDS: Insulin Lispro 100 UNIT/ML INSULN.PEN SC (16:36)
[2019-12-15 16:56] LABS: Bedside Glucose 153 mg/dL (70-110)
== END 2019-12-15 18:40 | DRG 629 ==
LOC: ED 14:57 → MS2 19:57 → MS3 12-12 16:36
PROVIDERS: Anesthesiology; Physician Assistant; Podiatrist; Admitting Provider Internal Medicine; Emergency Provider Emergency Medicine; PCP Family Medicine; Visit Provider Internal Medicine
PROC: 0QBL3ZX Excision of Right Tarsal, Percutaneous Approach, Diagnostic (ICD-10-PCS; principal; 2019-12-12 13:00)
DX: E11.69 Type 2 diabetes mellitus with other specified complication (principal); M86.171 Other acute osteomyelitis, right ankle and foot; L97.414 Non-pressure chronic ulcer of right heel and midfoot with necrosis of bone; L03.115 Cellulitis of right lower limb; E11.621 Type 2 diabetes mellitus with foot ulcer; E11.51 Type 2 diabetes mellitus with diabetic peripheral angiopathy without gangrene; E11.42 Type 2 diabetes mellitus with diabetic polyneuropathy; E11.65 Type 2 diabetes mellitus with hyperglycemia; M21.372 Foot drop, left foot; I25.10 Atherosclerotic heart disease of native coronary artery without angina pectoris; I10 Essential (primary) hypertension; E78.5 Hyperlipidemia, unspecified; Z79.82 Long term (current) use of aspirin; Z79.02 Long term (current) use of antithrombotics/antiplatelets; Z79.4 Long term (current) use of insulin; Z79.899 Other long term (current) drug therapy; Z86.73 Personal history of transient ischemic attack (TIA), and cerebral infarction without residual deficits; Z95.1 Presence of aortocoronary bypass graft
CPT/HCPCS: 36415; 36569; 71045; 73610; 73630; 73650; 76000; 80048; 80053; 80202; 82962; 83036; 83605; 83735; 85025; 85027; 85610; 85652; 85730; 86140; 87015; 87040; 87070; 87075; 87077; 87102; 87116; 87176; 87186; 87205; 87206; 87635; 87640; 88304; 88305; 88311; 93005; 97110; 97116; 97162; 97166; 97530; 97802; 97803; 99212; 99251; 99284; G2023; J7050; A4216; G0463; U0003

== ENCOUNTER 2019-12-11 15:03 | Outpatient (RCR) | payer MEDICARE, OTHER, SELFPAY ==
[2019-11-16 00:20] VITALS: BP 132/77; PULSE 64; RESP 16; TEMP 36.3
[2019-11-16 10:10] LABS: Bedside Glucose 172 mg/dL (70-110)
[2019-11-16 10:30] VITALS: BP 138/89; BP 141/71; PULSE 73; PULSE 80; RESP 16; RESP 18; TEMP 36.2; TEMP 36.5
[2019-11-16 12:30] LABS: Bedside Glucose 105 mg/dL (70-110)
[2019-11-16 12:33] VITALS: BP 138/89; PULSE 80; RESP 18; TEMP 36.5; BMI 24.9
--- NOTE | 2019-11-17 08:26 | HBO.PN.PCM_ITS ---
History of Present Illness Date of Service: 11/16/19 Presenting Chief Complaint: Nonhealing ulcer right heel, Valdez Grade 3 diabetic ulcer. TRAM RIVERA is a 69 year old currently undergoing hyperbaric oxygen therapy for Valdez Grade 3 diabetic foot ulcer of his right heel. Progress: Today represents a 67th treatment of hyperbaric oxygen therapy. He is scheduled for 80 treatments. Tolerance of hyperbaric oxygen therapy: Hyperbaric oxygen treatment was provided as per the facility's protocol at 2.0 ANA in 100% oxygen for 90 minutes without air breaks. The patient tolerated hyperbaric oxygen well, without complications or complaints. Upon emergence of the hyperbaric chamber, the patient's vital si gns remained stable. Pre-and post blood glucose levels as documented. He was discharged in good condition. 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) Diabetes with ulcer of toe (Chronic) PAD (peripheral artery disease) (Chronic) Cellulitis and abscess of foot (Chronic) Type 2 diabetes, controlled, with ulcer of heel (Chronic) Non-healing open wound of heel (Chronic) Hyperlipidemia (Chronic) Peripheral vascular disease (Chronic) Hypertension (Chronic) Coronary artery disease (Chronic) Status post CABG Type II diabetes mellitus (Chronic) Valdez grade 3 Allergies/Adverse Reactions: Allergies rivaroxaban [From Xarelto] Allergy (Verified 02/13/19 16:41) Other Home Medications: Ambulatory Orders Medication Instructions Recorded #17 3 tab PO DAILY 06/13/18 Aspirin [Lite Coat Aspirin] 325 mg PO DAILY 06/13/18 [id number] 1 PO DAILY 06/13/18 Calcium Lactate 1 PO DAILY 06/13/18 Cat C 2 PO DAILY 06/13/18 Cat E2 8 PO DAILY 06/13/18 Cholecalciferol (Vitamin D3) 5,000 mg PO DAILY 06/13/18 [Vitamin D3] Colon Clear 1 tab PO PRN PRN 06/13/18 Inositol 2 PO PRN PRN 06/13/18 Intestinal Cleanse No 1 3 tab PO PRN PRN 06/13/18 Koncentrated K 1 tab PO DAILY 06/13/18 Mag Lactate 1 PO DAILY 06/13/18 Nattokinase 2 tab PO DAILY 06/13/18 Potassium-Derick 1 PO DAILY 06/13/18 Tuna 03 Oil 3 PO DAILY 06/13/18 Zn-Zyme 1 PO DAILY 06/13/18 Clopidogrel Bisulfate [Clopidogrel] 75 mg PO DAILY 09/08/18 traMADol [Ultram] 50 tablet PO PRN PRN 09/08/18 Aurum Metallicum 2 drp PO DAILY 02/13/19 Cbd Oil DAILY 02/13/19 Sibling Family History: Cancer Maternal Family History: Diabetes, Heart Disease, Hypertension, Stroke Paternal Family History: Diabetes, Heart Disease, Pulmonary Disease Smoking Status: Never smoker Tobacco Use: Non-smoker Physical Exam Vital Signs Temp Pulse Resp BP 97.7 F L 80 18 138/89 H 11/16/19 12:33 11/16/19 12:33 11/16/19 12:33 11/16/19 12:33 General: Cooperative HEENT: Atraumatic, TM's Clear Lungs: Clear to auscultation, Normal air movement Cardiovascular: Regular rate, Regular Rhythm Psych/Mental Status: Normal Affect, Appropriate Assessment/Plan Type 2 diabetes, uncontrolled, with ulcer of heel (Chronic) right plantar heel PAD (peripheral artery disease) (Chronic) Cellulitis and abscess of foot (Chronic) Type 2 diabetes, controlled, with ulcer of heel (Chronic) Non-healing open wound of heel (Chronic) Type II diabetes mellitus (Chronic) Valdez grade 3 Patient appears to be tolerating hyperbaric oxygen therapy well, which will be continued as per the patient's medical treatment plan. [id number]
[2019-11-17 10:25] LABS: Bedside Glucose 188 mg/dL (70-110)
[2019-11-17 11:25] VITALS: BP 117/72; BP 142/72; PULSE 71; PULSE 86; RESP 16; RESP 18; TEMP 36.7
[2019-11-17 12:35] LABS: Bedside Glucose 133 mg/dL (70-110)
--- NOTE | 2019-11-17 13:29 | HBO.PN.PCM_ITS ---
History of Present Illness Date of Service: 11/17/19 Presenting Chief Complaint: Nonhealing ulcer right heel, Valdez Grade 3 diabetic ulcer. TRAM RIVERA is a 69 year old currently undergoing hyperbaric oxygen therapy for Valdez Grade 3 diabetic foot ulcer of his right heel. Progress: Today represents a 68th treatment of hyperbaric oxygen therapy. He is scheduled for 80 treatments. Tolerance of hyperbaric oxygen therapy: Hyperbaric oxygen treatment was provided as per the facility's protocol at 2.0 ANA in 100% oxygen for 90 minutes without air breaks. The patient tolerated hyperbaric oxygen well, without complications or complaints. Upon emergence of the hyperbaric chamber, the patient's vital si gns remained stable. Pre-and post blood glucose levels as documented. He was discharged in good condition. 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) Diabetes with ulcer of toe (Chronic) PAD (peripheral artery disease) (Chronic) Cellulitis and abscess of foot (Chronic) Type 2 diabetes, controlled, with ulcer of heel (Chronic) Non-healing open wound of heel (Chronic) Hyperlipidemia (Chronic) Peripheral vascular disease (Chronic) Hypertension (Chronic) Coronary artery disease (Chronic) Status post CABG Type II diabetes mellitus (Chronic) Valdez grade 3 Allergies/Adverse Reactions: Allergies rivaroxaban [From Xarelto] Allergy (Verified 02/13/19 16:41) Other Home Medications: Ambulatory Orders Medication Instructions Recorded #17 3 tab PO DAILY 06/13/18 Aspirin [Lite Coat Aspirin] 325 mg PO DAILY 06/13/18 [id number] 1 PO DAILY 06/13/18 Calcium Lactate 1 PO DAILY 06/13/18 Cat C 2 PO DAILY 06/13/18 Cat E2 8 PO DAILY 06/13/18 Cholecalciferol (Vitamin D3) 5,000 mg PO DAILY 06/13/18 [Vitamin D3] Colon Clear 1 tab PO PRN PRN 06/13/18 Inositol 2 PO PRN PRN 06/13/18 Intestinal Cleanse No 1 3 tab PO PRN PRN 06/13/18 Koncentrated K 1 tab PO DAILY 06/13/18 Mag Lactate 1 PO DAILY 06/13/18 Nattokinase 2 tab PO DAILY 06/13/18 Potassium-Derick 1 PO DAILY 06/13/18 Tuna 03 Oil 3 PO DAILY 06/13/18 Zn-Zyme 1 PO DAILY 06/13/18 Clopidogrel Bisulfate [Clopidogrel] 75 mg PO DAILY 09/08/18 traMADol [Ultram] 50 tablet PO PRN PRN 09/08/18 Aurum Metallicum 2 drp PO DAILY 02/13/19 Cbd Oil DAILY 02/13/19 Sibling Family History: Cancer Maternal Family History: Diabetes, Heart Disease, Hypertension, Stroke Paternal Family History: Diabetes, Heart Disease, Pulmonary Disease Smoking Status: Never smoker Tobacco Use: Non-smoker Physical Exam Vital Signs Temp Pulse Resp BP 98.0 F 86 18 142/72 H 11/17/19 11:25 11/17/19 11:25 11/17/19 11:25 11/17/19 11:25 General: Alert, Oriented x3, Cooperative, No apparent distress, Well developed, Well nourished HEENT: Atraumatic, PERRLA, EOMI, Normocephalic Lungs: Normal air movement Psych/Mental Status: Normal Affect, Appropriate, Alert and oriented to time, place, person, mood and affect Assessment/Plan The patient appears to be tolerating hyperbaric oxygen therapy well, which will be continued as per the patient's medical treatment plan.
[2019-11-18 10:16] LABS: Bedside Glucose 166 mg/dL (70-110)
[2019-11-18 10:56] VITALS: BP 122/69; BP 129/68; PULSE 64; PULSE 77; RESP 16; RESP 18; TEMP 36.2; TEMP 36.7
--- NOTE | 2019-11-18 11:36 | HBO.PN.PCM_ITS ---
History of Present Illness Date of Service: 11/18/19 Presenting Chief Complaint: Nonhealing ulcer right heel, Valdez Grade 3 diabetic ulcer. TRAM RIVERA is a 69 year old currently undergoing hyperbaric oxygen therapy for Valdez Grade 3 diabetic foot ulcer of his right heel. Progress: Today represents a 69th treatment of hyperbaric oxygen therapy. He is scheduled for 80 treatments. Tolerance of hyperbaric oxygen therapy: Hyperbaric oxygen treatment was provided as per the facility's protocol at 2.0 ANA in 100% oxygen for 90 minutes without air breaks. The patient tolerated hyperbaric oxygen well, without complications or complaints. Upon emergence of the hyperbaric chamber, the patient's vital si gns remained stable. Pre-and post blood glucose levels as documented. He was discharged in good condition. 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) Diabetes with ulcer of toe (Chronic) PAD (peripheral artery disease) (Chronic) Cellulitis and abscess of foot (Chronic) Type 2 diabetes, controlled, with ulcer of heel (Chronic) Non-healing open wound of heel (Chronic) Hyperlipidemia (Chronic) Peripheral vascular disease (Chronic) Hypertension (Chronic) Coronary artery disease (Chronic) Status post CABG Type II diabetes mellitus (Chronic) Valdez grade 3 Allergies/Adverse Reactions: Allergies rivaroxaban [From Xarelto] Allergy (Verified 02/13/19 16:41) Other Home Medications: Ambulatory Orders Medication Instructions Recorded #17 3 tab PO DAILY 06/13/18 Aspirin [Lite Coat Aspirin] 325 mg PO DAILY 06/13/18 [id number] 1 PO DAILY 06/13/18 Calcium Lactate 1 PO DAILY 06/13/18 Cat C 2 PO DAILY 06/13/18 Cat E2 8 PO DAILY 06/13/18 Cholecalciferol (Vitamin D3) 5,000 mg PO DAILY 06/13/18 [Vitamin D3] Colon Clear 1 tab PO PRN PRN 06/13/18 Inositol 2 PO PRN PRN 06/13/18 Intestinal Cleanse No 1 3 tab PO PRN PRN 06/13/18 Koncentrated K 1 tab PO DAILY 06/13/18 Mag Lactate 1 PO DAILY 06/13/18 Nattokinase 2 tab PO DAILY 06/13/18 Potassium-Derick 1 PO DAILY 06/13/18 Tuna 03 Oil 3 PO DAILY 06/13/18 Zn-Zyme 1 PO DAILY 06/13/18 Clopidogrel Bisulfate [Clopidogrel] 75 mg PO DAILY 09/08/18 traMADol [Ultram] 50 tablet PO PRN PRN 09/08/18 Aurum Metallicum 2 drp PO DAILY 02/13/19 Cbd Oil DAILY 02/13/19 Sibling Family History: Cancer Maternal Family History: Diabetes, Heart Disease, Hypertension, Stroke Paternal Family History: Diabetes, Heart Disease, Pulmonary Disease Smoking Status: Never smoker Tobacco Use: Non-smoker Physical Exam Vital Signs Temp Pulse Resp BP 97.2 F L 77 18 129/68 H 11/18/19 10:56 11/18/19 10:56 11/18/19 10:56 11/18/19 10:56 Assessment/Plan The patient appears to be tolerating hyperbaric oxygen therapy well, which will be continued as per the patient's medical treatment plan.
[2019-11-18 12:31] VITALS: BP 122/69; PULSE 64; RESP 16; TEMP 36.6; BMI 24.9
[2019-11-18 12:31] LABS: Bedside Glucose 116 mg/dL (70-110)
[2019-11-19 10:21] LABS: Bedside Glucose 143 mg/dL (70-110)
[2019-11-19 10:32] VITALS: BP 135/73; BP 140/73; PULSE 69; PULSE 74; RESP 16; RESP 18; TEMP 34.7; TEMP 36.3
[2019-11-19 12:16] LABS: Bedside Glucose 104 mg/dL (70-110)
--- NOTE | 2019-11-19 12:25 | HBO.PN.PCM_ITS ---
History of Present Illness Date of Service: 11/19/19 Presenting Chief Complaint: Nonhealing ulcer right heel, Valdez Grade 3 diabetic ulcer. TRAM RIVERA is a 69 year old currently undergoing hyperbaric oxygen therapy for Valdez Grade 3 diabetic foot ulcer of his right heel. Progress: Today represents a 70th treatment of hyperbaric oxygen therapy. He is scheduled for 80 treatments. Tolerance of hyperbaric oxygen therapy: Hyperbaric oxygen treatment was provided as per the facility's protocol at 2.0 ANA in 100% oxygen for 90 minutes without air breaks. The patient tolerated hyperbaric oxygen well, without complications or complaints. Upon emergence of the hyperbaric chamber, the patient's vital si gns remained stable. Pre-and post blood glucose levels as documented. He was discharged in good condition. 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) Diabetes with ulcer of toe (Chronic) PAD (peripheral artery disease) (Chronic) Cellulitis and abscess of foot (Chronic) Type 2 diabetes, controlled, with ulcer of heel (Chronic) Non-healing open wound of heel (Chronic) Hyperlipidemia (Chronic) Peripheral vascular disease (Chronic) Hypertension (Chronic) Coronary artery disease (Chronic) Status post CABG Type II diabetes mellitus (Chronic) Avldez grade 3 Allergies/Adverse Reactions: Allergies rivaroxaban [From Xarelto] Allergy (Verified 02/13/19 16:41) Other Home Medications: Ambulatory Orders Medication Instructions Recorded #17 3 tab PO DAILY 06/13/18 Aspirin [Lite Coat Aspirin] 325 mg PO DAILY 06/13/18 [id number] 1 PO DAILY 06/13/18 Calcium Lactate 1 PO DAILY 06/13/18 Cat C 2 PO DAILY 06/13/18 Cat E2 8 PO DAILY 06/13/18 Cholecalciferol (Vitamin D3) 5,000 mg PO DAILY 06/13/18 [Vitamin D3] Colon Clear 1 tab PO PRN PRN 06/13/18 Inositol 2 PO PRN PRN 06/13/18 Intestinal Cleanse No 1 3 tab PO PRN PRN 06/13/18 Koncentrated K 1 tab PO DAILY 06/13/18 Mag Lactate 1 PO DAILY 06/13/18 Nattokinase 2 tab PO DAILY 06/13/18 Potassium-Derick 1 PO DAILY 06/13/18 Tuna 03 Oil 3 PO DAILY 06/13/18 Zn-Zyme 1 PO DAILY 06/13/18 Clopidogrel Bisulfate [Clopidogrel] 75 mg PO DAILY 09/08/18 traMADol [Ultram] 50 tablet PO PRN PRN 09/08/18 Aurum Metallicum 2 drp PO DAILY 02/13/19 Cbd Oil DAILY 02/13/19 Sibling Family History: Cancer Maternal Family History: Diabetes, Heart Disease, Hypertension, Stroke Paternal Family History: Diabetes, Heart Disease, Pulmonary Disease Smoking Status: Never smoker Tobacco Use: Non-smoker Physical Exam Vital Signs Temp Pulse Resp BP 97.4 F L 74 18 135/73 H 11/19/19 10:32 11/19/19 10:32 11/19/19 10:32 11/19/19 10:32 General: Alert, Oriented x3, Cooperative, No apparent distress HEENT: Atraumatic, Normocephalic Lungs: Normal air movement Psych/Mental Status: Normal Affect Assessment/Plan The patient appears to be tolerating hyperbaric oxygen therapy well, which will be continued as per the patient's medical treatment plan. HBO Supervision
[2019-11-20 10:20] LABS: Bedside Glucose 166 mg/dL (70-110)
[2019-11-20 12:20] LABS: Bedside Glucose 111 mg/dL (70-110)
[2019-11-20 12:24] VITALS: BP 136/82; PULSE 73; RESP 18; TEMP 36.7; BMI 24.9
--- NOTE | 2019-11-20 14:12 | RAD_ITS ---
STUDY: X-RAY - RIGHT FOOT CLINICAL: Male, 69 years old. OPEN WOUND TO RIGHT HEEL x1.5 YRS, 90 HYPERBARIC OXYGEN TREATMENTS DONE, RULE OUT OSTEOMYELITIS TECHNIQUE: 3 view(s) of the foot. COMPARISON: Comparison is made with prior study dated July 10, 2019. FINDINGS: There is an enthesophyte involving the posterior superior calcaneus at the site of insertion of the Achilles tendon. Normal visualized subtalar, talonavicular, calcaneocuboid, tarsal and tarsometatarsal articulations. There is deformity of the distal aspect of the second metatarsal. 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 There is degenerative arthrosis of the metatarsophalangeal joint of the hallux . Normal tibial and fibular sesamoid bones. There is fusion of the distal interphalangeal joint of the great toe. Normal phalanges of the great toe. Normal second through fifth metatarsophalangeal joints. Normal interphalangeal joints and phalanges of the lesser toes. Soft tissue swelling. There is evidence of air within the plantar soft tissues underlying the calcaneus suggestive of possible ulceration. RAD/Foot min 3 Views IMPRESSION: Degenerative changes at the great toe with fusion of the distal interphalangeal joint. Soft tissue swelling and air within it along the plantar aspect underlying the calcaneus. An ulceration should be ruled out. Electronically Signed: Cedric Mercer, at 14:39 EDT , Service support ,
--- NOTE | 2019-11-20 14:12 | RAD_ITS ---
STUDY: X-RAY - RIGHT CALCANEUS REASON FOR EXAM: Male, 69 years old. OPEN WOUND TO RIGHT HEEL x1.5 YRS, 90 HYPERBARIC OXYGEN TREATMENTS DONE, RULE OUT OSTEOMYELITIS TECHNIQUE: 2 view(s) of the calcaneus were obtained. COMPARISON: None. FINDINGS: Normal visualized calcaneus. There is enthesophyte formation of the posterior superior calcaneus at the site of insertion of the Achilles tendon. Soft tissue swelling along the plantar aspect of the calcaneus with findings suggestive of an ulceration. RAD/Calcaneus min 2 Views IMPRESSION: Enthesophyte of the calcaneous at the Achilles tendon insertion Soft tissue swelling along the plantar aspect of the calcaneus with findings suggestive of ulceration. Electronically Signed: Cedric Mercer, at 15:02 EDT , Service support ,
[2019-11-20 15:20] VITALS: BP 136/82; BP 148/79; PULSE 71; PULSE 73; RESP 16; RESP 18; TEMP 36.7; TEMP 37
--- NOTE | 2019-11-20 17:02 | HBO.PN.PCM_ITS ---
History of Present Illness Date of Service: 11/20/19 Presenting Chief Complaint: Nonhealing ulcer right heel, Valdez Grade 3 diabetic ulcer. TRAM RIVERA is a 69 year old currently undergoing hyperbaric oxygen therapy for Valdez Grade 3 diabetic foot ulcer of his right heel. Progress: Today represents a 71st treatment of hyperbaric oxygen therapy. He is scheduled for 80 treatments. Tolerance of hyperbaric oxygen therapy: Hyperbaric oxygen treatment was provided as per the facility's protocol at 2.0 ANA in 100% oxygen for 90 minutes without air breaks. The patient tolerated hyperbaric oxygen well, without complications or complaints. Upon emergence of the hyperbaric chamber, the patient's vital si gns remained stable. Pre-and post blood glucose levels as documented. He was discharged in good condition. 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) Diabetes with ulcer of toe (Chronic) PAD (peripheral artery disease) (Chronic) Cellulitis and abscess of foot (Chronic) Type 2 diabetes, controlled, with ulcer of heel (Chronic) Non-healing open wound of heel (Chronic) Hyperlipidemia (Chronic) Peripheral vascular disease (Chronic) Hypertension (Chronic) Coronary artery disease (Chronic) Status post CABG Type II diabetes mellitus (Chronic) Valdez grade 3 Allergies/Adverse Reactions: Allergies rivaroxaban [From Xarelto] Allergy (Verified 02/13/19 16:41) Other Home Medications: Ambulatory Orders Medication Instructions Recorded #17 3 tab PO DAILY 06/13/18 Aspirin [Lite Coat Aspirin] 325 mg PO DAILY 06/13/18 [id number] 1 PO DAILY 06/13/18 Calcium Lactate 1 PO DAILY 06/13/18 Cat C 2 PO DAILY 06/13/18 Cat E2 8 PO DAILY 06/13/18 Cholecalciferol (Vitamin D3) 5,000 mg PO DAILY 06/13/18 [Vitamin D3] Colon Clear 1 tab PO PRN PRN 06/13/18 Inositol 2 PO PRN PRN 06/13/18 Intestinal Cleanse No 1 3 tab PO PRN PRN 06/13/18 Koncentrated K 1 tab PO DAILY 06/13/18 Mag Lactate 1 PO DAILY 06/13/18 Nattokinase 2 tab PO DAILY 06/13/18 Potassium-Derick 1 PO DAILY 06/13/18 Tuna 03 Oil 3 PO DAILY 06/13/18 Zn-Zyme 1 PO DAILY 06/13/18 Clopidogrel Bisulfate [Clopidogrel] 75 mg PO DAILY 09/08/18 traMADol [Ultram] 50 tablet PO PRN PRN 09/08/18 Aurum Metallicum 2 drp PO DAILY 02/13/19 Cbd Oil DAILY 02/13/19 Sibling Family History: Cancer Maternal Family History: Diabetes, Heart Disease, Hypertension, Stroke Paternal Family History: Diabetes, Heart Disease, Pulmonary Disease Smoking Status: Never smoker Tobacco Use: Non-smoker Physical Exam Vital Signs Temp Pulse Resp BP 98.6 F 71 16 148/79 H 11/20/19 15:20 11/20/19 15:20 11/20/19 15:20 11/20/19 15:20 General: Alert, Oriented x3, Cooperative, No apparent distress Psych/Mental Status: Normal Affect, Appropriate Assessment/Plan Active Problems Type 2 diabetes, uncontrolled, with ulcer of heel (Chronic) right plantar heel PAD (peripheral artery disease) (Chronic) Cellulitis and abscess of foot (Chronic) Type 2 diabetes, controlled, with ulcer of heel (Chronic) Non-healing open wound of heel (Chronic) The patient appears to be tolerating hyperbaric oxygen therapy well, which will be continued as per the patient's medical treatment plan.
--- NOTE | 2019-11-20 17:03 | PCM.WC.PN ---
(1) Type 2 diabetes, uncontrolled, with ulcer of heel Status: Chronic Current Visit: Yes Code(s): E11.621 - Type 2 diabetes mellitus with foot ulcer; E11.65 - Type 2 diabetes mellitus with hyperglycemia; L97.409 - Non-pressure chronic ulcer of unspecified heel and midfoot with unspecified severity Comment: right plantar heel (2) PAD (peripheral artery disease) Status: Chronic Current Visit: Yes Code(s): I73.9 - Peripheral vascular disease, unspecified (3) Cellulitis and abscess of foot Status: Chronic Current Visit: Yes Code(s): L03.119 - Cellulitis of unspecified part of limb; L02.619 - Cutaneous abscess of unspecified foot (4) Type 2 diabetes, controlled, with ulcer of heel Status: Chronic Current Visit: Yes Code(s): E11.621 - Type 2 diabetes mellitus with foot ulcer; L97.409 - Non-pressure chronic ulcer of unspecified heel and midfoot with unspecified severity (5) Non-healing open wound of heel Status: Chronic Current Visit: Yes Qualifiers: Encounter type: subsequent encounter Laterality: right Qualified Code(s): S91.301D - Unspecified open wound, right foot, subsequent encounter Code(s): S91.309A - Unspecified open wound, unspecified foot, initial encounter (6) Peripheral vascular disease Status: Chronic Current Visit: Yes Code(s): I73.9 - Peripheral vascular disease, unspecified (7) Type II diabetes mellitus Status: Chronic Current Visit: Yes Qualifiers: Diabetes mellitus chcf insulin use: without chcf use Diabetes mellitus complication status: with skin complications Diabetes mellitus complication detail: with foot ulcer Qualified Code(s): E11.621 - Type 2 diabetes mellitus with foot ulcer; L97.509 - Non-pressure chronic ulcer of other part of unspecified foot with unspecified severity Code(s): E11.9 - Type 2 diabetes mellitus without complications Comment: Valdez grade 3 Type of Wound Date of Service: 11/20/19 Chief Complaint: Nonhealing ulcer right heel, Valdez Grade 3 diabetic ulcer. History of Wound: Gibson is here for evaluation of an ulcer of his right heel. He was recently treated for this same area with Theraskin application and was discharged approximately 8 weeks ago. He has noticed increased pain in his heel for the last 2 weeks and last his noted that the area had opened after his law writer had debrided some callus from the area. He has been applying Aquacel and gauze to the ulcer. He does follow with Dr. Navas regularly and had a bypass of his right SFA and popliteal arteries earlier this year. He has had procedures for his arterial disease in past to both of his lower extremities. He has tried alternative treatments with supplements and chelation therapy in the past. He also has diabetes and recent A1C was 7.2% He does wear diabetic shoes. He had been undergoing chelation treatments by Dr. German in [place]. He denies fever, chills, erythema or heavy drainage. He reports significant pain and discomfort of his right heel and his entire right leg which no one can explain. In March 2019, he was hospitalized due to occlusion of his bypass graft in his right leg and Dr. Navas was able to open it 50%. He also has blockages in his left leg. Dr. Navas is unable to revascularize either leg at this time and he may ultimately require limb amputation if his vascular disease worsens. Progress of Wound: Gibson is here to follow up for nonhealing ulcer of his right heel. He reports his pain is about the same this week from last week. When he was seen for HBO treatment on Saturday of this week, there was maceration again and again on Saturday. Due to the maceration. Wound vac was held and Aquacel Ag was used to pack into his wound. He underwent hyperbaric treatments without any issues but there has not been any improvement this week. Overall, he is not showing anticipated improvement with the combination of hyperbaric oxygen treatments and negative pressure treatment even with the higher pressure wound vac. He has had several setbacks and has had inconsistent improvement of the volume of his ulcer due to the variation in the snap vac negative pressure as well as the COTY not having adequate pressure to manage heavy drainage from his ulcer as well as infection. Although the measurements of volume do not show dramatic improvement there has not been significant worsening which I believe that there would be if he was not undergoing hyperbaric treatment during the last 3 months and that it is due to the hyperbaric oxygen treatment. Denies fever, chills, erythema. - Physical Exam Vital Signs Temp Pulse Resp BP 98.6 F 71 16 148/79 H 11/20/19 15:20 11/20/19 15:20 11/20/19 15:20 11/20/19 15:20 General: Alert, Oriented x3, Cooperative, No apparent distress HEENT: Atraumatic, Normocephalic Oral: Moist Mucosa Extremities: No edema, Capillary Refill Less than 3 Seconds, Cool Skin: Ulcer/ Wound Wound Measurements and Assessment WC - Nurse 1 - General Ulcer Measurement Start: 11/16/19 09:36 Freq: Status: Active Protocol: Activity Type Activity Date Activity User E-Sign Co-Sign Detail Recorded Client Recorded Date Recorded By Document 11/20/19 12:24 [id number] 11/20/19 12:37 [facility] 11/20/19 12:24 Wound Center Nurse 1 [Ulcer Assessment] #14- R HEEL -Combined with other wound No -Current Size (cm) - Length 0.8 -Current Size (cm) - Width 0.8 -Current Size (cm) - Depth 0.8 -Total Square Cm 0.64 -Date of Last Picture (Recall this 11/20/19 field) -Photo Taken Yes -Epithelialization None Present -Tunneling No -Undermining/Tunneling Yes -Undermining/Tunneling Starts (O' 11 clock) -Undermining/Tunneling Ends (O'clock) 2 -Maximum Distance (cm) 1 -Circular Undermining No -Exudate Amt Small -Exudate Type Serous -Wound Margin Distinct, Outline Attached -Granulation Amt Large (67-100%) -Granulation Quality Red -Slough/Fibrin No -Necrosis Amt None Present (0 %) -Texture (Shahana-wound Skin Appearance) Callus -Moisture (Shahana-wound Skin Appearance Assessed, ) Maceration -Color (Shahana-wound Skin Appearance) Assessed,Palor -Temperature (Shahana-wound Skin No Abnormality Appearance) (Pt Warm) -Tenderness on Palpation (Shahana-wound No Skin Appearance) -Ulcer Cleansing soapy water -Foul Odor after Cleansing No -Anesthetic Used 5% Lidocaine Gel [Edema Assessment] -Lower Limb Edema Present No -Right Calf (cm) 27.4 -Right Ankle (cm) 21 WC - Nurse 2 - General Ulcer CM Notes Start: 11/16/19 09:36 Freq: Status: Active Protocol: Activity Type Activity Date Activity User E-Sign Co-Sign Detail Recorded Client Recorded Date Recorded By Document 11/20/19 12:51 DV [id number] 11/20/19 13:05 DV 11/20/19 12:51 Wound Center Nurse 2 [Procedure/Treatment] #14- R HEEL -Time 12:51 -Correct Patient Yes -Correct Side, Site, Position Yes -Correct Procedure Yes -Procedure Performed Yes -Type of Procedure Debridement -Clinical Debridement Subcutaneous -Post Debridement Size (cm) - Length 0.7 -Post Debridement Size (cm) - Width 0.7 -Post Debridement Size (cm) - Depth 0.7 -Total Square Cm 0.49 -Wound/Ulcer Outcome Not Healed -Ulcer Cleansing Rinsed/ Irrigated with Saline -Foul Odor after Cleansing No -Bioengineered Tissue No -Bleeding Controlled with Pressure -Other 2.5cm @ 2:00 -Offloading No -Treatment Response Procedure Tolerated Well [See Physician Procedure note for Specifics] Pain Scale: 0-10 Numeric [Pain] -Is Patient Pain Free? Yes Psych/Mental Status: Normal Affect, Appropriate Debridement Note Post-Debridement Measurements/Treatment WC - Nurse 2 - General Ulcer CM Notes Start: 11/16/19 09:36 Freq: Status: Active Protocol: Activity Type Activity Date Activity User E-Sign Co-Sign Detail Recorded Client Recorded Date Recorded By Document 11/20/19 12:51 [id number] 11/20/19 13:05 DV 11/20/19 12:51 Wound Center Nurse 2 #14- R HEEL -Time 12:51 -Correct Patient Yes -Correct Side, Site, Position Yes -Correct Procedure Yes -Procedure Performed Yes -Type of Procedure Debridement -Clinical Debridement Subcutaneous -Post Debridement Size (cm) - Length 0.7 -Post Debridement Size (cm) - Width 0.7 -Post Debridement Size (cm) - Depth 0.7 -Total Square Cm 0.49 -Wound/Ulcer Outcome Not Healed -Ulcer Cleansing Rinsed/ Irrigated with Saline -Foul Odor after Cleansing No -Bioengineered Tissue No -Bleeding Controlled with Pressure -Other 2.5cm @ 2:00 -Offloading No -Treatment Response Procedure Tolerated Well Pain Scale: 0-10 Numeric Is Patient Pain Free? Yes Wound debrided: right heel Laterality: Right Wound Grade/Stage: Valdez grade 3 Type of Debridement: Excisional debridement Anesthesia Used: 4% Lidocaine Solution, 5% Lidocaine Gel, - - lidocaine 1% w/o epi Depth: Down to and including healthy tissue, in the subcutaneous layer, to muscle Percentage of wound debrided: 100 Instrument Used: 5mm curette Tissue Removed: Yellow slough, devitalized tissue Severity: Fat Layer Exposed Amount of bleeding with debridement: Mild Bleeding Controlled with: Compression and gauze Patient tolerated procedure well Assessment/Plan Clinical Impression(s) from Imaging Studies Foot X-Ray 11/20/19 14:12 IMPRESSION: Degenerative changes at the great toe with fusion of the distal interphalangeal joint. Soft tissue swelling and air within it along the plantar aspect underlying the calcaneus. An ulceration should be ruled out. Electronically Signed: Cedric Mercer, at 14:39 EDT , Service support , Os [facility]cis X-ray 11/20/19 14:12 IMPRESSION: Enthesophyte of the calcaneous at the Achilles tendon insertion Soft tissue swelling along the plantar aspect of the calcaneus with findings suggestive of ulceration. 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 Diabetes mellitus - controlled. Peripheral vascular disease - status post revascularization 08/07/18 and 03/2019 Plan: Gibson's ulcer was evaluated and debrided today with no improvement from last week and question of whether bone is palpable on debridement today. Xray ordered to evaluate for osteomyelitis. Discussed possibly referring to Dr. Alvarado for surgical debridement and will discuss this with her and have her review his vascular procedure note from March by Dr. Navas. Will hold vac for now as we do not want to continue to have maceration. Will also hold HBO treatments as there has not been measurable improvement at this time and he may have osteomyelitis and need further treatment. He may need to proceed with palliative treatment depending on results of xray and whether any surgical intervention is possible. He will continue to use the surgical shoe for offloading. Oxycodone 5 mg #45 were prescribed for treatment of pain with debridements on 10/30/2019. OARRS was appropriate. No signs of diversion or abuse. Encouraged to call with any increase in pain or drainage, fever or chills. F/U in 1 week.
[2019-11-27 10:10] VITALS: BP 131/72; PULSE 88; RESP 18; TEMP 36.8; BMI 24.9
--- NOTE | 2019-11-27 18:14 | PCM.WC.PN ---
(1) Type 2 diabetes, uncontrolled, with ulcer of heel Status: Chronic Current Visit: Yes Code(s): E11.621 - Type 2 diabetes mellitus with foot ulcer; E11.65 - Type 2 diabetes mellitus with hyperglycemia; L97.409 - Non-pressure chronic ulcer of unspecified heel and midfoot with unspecified severity Comment: right plantar heel (2) PAD (peripheral artery disease) Status: Chronic Current Visit: Yes Code(s): I73.9 - Peripheral vascular disease, unspecified (3) Cellulitis and abscess of foot Status: Chronic Current Visit: Yes Code(s): L03.119 - Cellulitis of unspecified part of limb; L02.619 - Cutaneous abscess of unspecified foot (4) Type 2 diabetes, controlled, with ulcer of heel Status: Chronic Current Visit: Yes Code(s): E11.621 - Type 2 diabetes mellitus with foot ulcer; L97.409 - Non-pressure chronic ulcer of unspecified heel and midfoot with unspecified severity (5) Non-healing open wound of heel Status: Chronic Current Visit: Yes Qualifiers: Encounter type: subsequent encounter Laterality: right Qualified Code(s): S91.301D - Unspecified open wound, right foot, subsequent encounter Code(s): S91.309A - Unspecified open wound, unspecified foot, initial encounter (6) Peripheral vascular disease Status: Chronic Current Visit: Yes Code(s): I73.9 - Peripheral vascular disease, unspecified (7) Type II diabetes mellitus Status: Chronic Current Visit: Yes Qualifiers: Diabetes mellitus intermediate insulin use: without intermediate use Diabetes mellitus complication status: with skin complications Diabetes mellitus complication detail: with foot ulcer Qualified Code(s): E11.621 - Type 2 diabetes mellitus with foot ulcer; L97.509 - Non-pressure chronic ulcer of other part of unspecified foot with unspecified severity Code(s): E11.9 - Type 2 diabetes mellitus without complications Comment: Valdez grade 3 Type of Wound Date of Service: 11/27/19 Chief Complaint: Nonhealing ulcer right heel, Valdez Grade 3 diabetic ulcer. History of Wound: Gibson is here for evaluation of an ulcer of his right heel. He was recently treated for this same area with Theraskin application and was discharged approximately 8 weeks ago. He has noticed increased pain in his heel for the last 2 weeks and last his noted that the area had opened after his shanker out had debrided some callus from the area. He has been applying Aquacel and gauze to the ulcer. He does follow with Dr. Navas regularly and had a bypass of his right SFA and popliteal arteries earlier this year. He has had procedures for his arterial disease in past to both of his lower extremities. He has tried alternative treatments with supplements and chelation therapy in the past. He also has diabetes and recent A1C was 7.2% He does wear diabetic shoes. He had been undergoing chelation treatments by Dr. German in [place]. He denies fever, chills, erythema or heavy drainage. He reports significant pain and discomfort of his right heel and his entire right leg which no one can explain. In March 2019, he was hospitalized due to occlusion of his bypass graft in his right leg and Dr. Navas was able to open it 50%. He also has blockages in his left leg. Dr. Navas is unable to revascularize either leg at this time and he may ultimately require limb amputation if his vascular disease worsens. Progress of Wound: Gibson is here to follow up for nonhealing ulcer of his right heel. He reports his pain is about the same this week. He has been tolerating Aquacel Ag dressings to pack into his wound every other day and his notes heavy drainage. There has been no signioficant improvement this week and some worsening of the tunneling. XRay did not show osteomyelitis and there is not the palpable hard area that was present last week. Discussed his case with Dr. Alvarado regarding sirgical debridement and she does not think it would slavage his limb. She recommended referral to [facility] limb salvage vascular surgery. Although the measurements of volume do not show dramatic improvement there has not been significant worsening which I believe that there would be if he was not undergoing hyperbaric treatment during the last 3 months and that it is due to the hyperbaric oxygen treatment. Denies fever, chills, erythema. - Physical Exam Vital Signs Temp Pulse Resp BP 98.2 F 88 18 131/72 H 11/27/19 10:10 11/27/19 10:10 11/27/19 10:10 11/27/19 10:10 General: Alert, Oriented x3, Cooperative, No apparent distress HEENT: Atraumatic, Normocephalic Extremities: No edema, Capillary Refill Less than 3 Seconds, Cool Skin: Ulcer/ Wound Wound Measurements and Assessment WC - Nurse 1 - General Ulcer Measurement Start: 11/16/19 09:36 Freq: Status: Active Protocol: Activity Type Activity Date Activity User E-Sign Co-Sign Detail Recorded Client Recorded Date Recorded By Document 11/27/19 10:10 RB [id number] 11/27/19 10:26 RB 11/27/19 10:10 Wound Center Nurse 1 [Ulcer Assessment] #14- R HEEL -Combined with other wound No -Current Size (cm) - Length 0.6 -Current Size (cm) - Width 0.6 -Current Size (cm) - Depth 0.6 -Total Square Cm 0.36 -Photo Taken Yes -Tunneling No -Undermining/Tunneling No -Circular Undermining No -Exudate Amt Small -Exudate Type Serosanguineous -Wound Margin Flat & Intact -Granulation Amt Medium (34-66%) -Granulation Quality Pioneer -Slough/Fibrin Yes -Necrosis Amt Small (1-33%) -Necrotic Tissue Type Adherent Slough -Structure Exposed N/A -Texture (Shahana-wound Skin Appearance) Callus -Moisture (Shahana-wound Skin Appearance Assessed ) -Color (Shahana-wound Skin Appearance) Assessed -Temperature (Shahana-wound Skin No Abnormality Appearance) (Pt Warm) -Tenderness on Palpation (Shahana-wound No Skin Appearance) -Ulcer Cleansing Wound Cleanser -Foul Odor after Cleansing No -Anesthetic Used 4% Lidocaine Solution,5% Lidocaine Gel [Edema Assessment] -Lower Limb Edema Present Yes -Right Calf (cm) 26.5 -Right Ankle (cm) 20.5 WC - Nurse 2 - General Ulcer CM Notes Start: 11/16/19 09:36 Freq: Status: Active Protocol: Activity Type Activity Date Activity User E-Sign Co-Sign Detail Recorded Client Recorded Date Recorded By Document 11/27/19 11:39 DV [id number] 11/27/19 11:46 DV 11/27/19 11:39 Wound Center Nurse 2 [Procedure/Treatment] #14- R HEEL -Time 11:43 -Correct Patient Yes -Correct Side, Site, Position Yes -Correct Procedure Yes -Procedure Performed Yes -Type of Procedure Debridement -Clinical Debridement Subcutaneous -Post Debridement Size (cm) - Length 0.7 -Post Debridement Size (cm) - Width 0.8 -Post Debridement Size (cm) - Depth 0.8 -Total Square Cm 0.56 -Wound/Ulcer Outcome Not Healed -Ulcer Cleansing Rinsed/ Irrigated with Saline -Bleeding Controlled with Pressure -Type of Offloading Surgical Shoe -Treatment Response Procedure Tolerated Well [See Physician Procedure note for Specifics] Pain Scale: 0-10 Numeric [Pain] -Is Patient Pain Free? Yes Psych/Mental Status: Normal Affect, Appropriate Debridement Note Post-Debridement Measurements/Treatment WC - Nurse 2 - General Ulcer CM Notes Start: 11/16/19 09:36 Freq: Status: Active Protocol: Activity Type Activity Date Activity User E-Sign Co-Sign Detail Recorded Client Recorded Date Recorded By Document 11/20/19 12:51 DV [id number] 11/20/19 13:05 DV Document 11/27/19 11:39 DV [id number] 11/27/19 11:46 DV 11/20/19 11/27/19 12:51 11:39 Wound Center Nurse 2 #14- R HEEL -Time 12:51 11:43 -Correct Patient Yes Yes -Correct Side, Site, Position Yes Yes -Correct Procedure Yes Yes -Procedure Performed Yes Yes -Type of Procedure Debridement Debridement -Clinical Debridement Subcutaneous Subcutaneous -Post Debridement Size (cm) - Length 0.7 0.7 -Post Debridement Size (cm) - Width 0.7 0.8 -Post Debridement Size (cm) - Depth 0.7 0.8 -Total Square Cm 0.49 0.56 -Wound/Ulcer Outcome Not Healed Not Healed -Ulcer Cleansing Rinsed/ Rinsed/ Irrigated with Irrigated with Saline Saline -Foul Odor after Cleansing No -Bioengineered Tissue No -Bleeding Controlled with Pressure Pressure -Other 2.5cm @ 2:00 -Offloading No -Type of Offloading Surgical Shoe -Treatment Response Procedure Procedure Tolerated Well Tolerated Well Pain Scale: 0-10 Numeric Is Patient Pain Free? Yes Yes Wound debrided: right heel Laterality: Right Wound Grade/Stage: Valdez grade 3 Type of Debridement: Excisional debridement Anesthesia Used: 4% Lidocaine Solution, - - lidocaine 2% w/o epi Depth: Down to and including healthy tissue, in the subcutaneous layer, to muscle Percentage of wound debrided: 100 Instrument Used: 5mm curette Tissue Removed: Yellow slough, devitalized tissue Severity: Fat Layer Exposed Amount of bleeding with debridement: Mild Bleeding Controlled with: Compression and gauze Patient tolerated procedure well Assessment/Plan Clinical Impression(s) from Imaging Studies Foot X-Ray 11/20/19 14:12 IMPRESSION: Degenerative changes at the great toe with fusion of the distal interphalangeal joint. Soft tissue swelling and air within it along the plantar aspect underlying the calcaneus. An ulceration should be ruled out. Electronically Signed: Cedric Sylvie, at 14:39 EDT , Service support , Os Calcis X-ray 11/20/19 14:12 IMPRESSION: Enthesophyte of the calcaneous at the Achilles tendon insertion Soft tissue swelling along the plantar aspect of the calcaneus with findings suggestive of ulceration. 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 Diabetes mellitus - controlled. Peripheral vascular disease - status post revascularization 08/07/18 and 03/2019 Plan: Gibson's ulcer was evaluated and debrided today with no improvement from last week. Discussed referral to [facility] vascular surgery program and he is agreeable. Will discontinue wound vac at this time. He may need to proceed with palliative treatment depending on whether any surgical intervention is possible. He will continue to use the surgical shoe for offloading. Oxycodone 5 mg #45 were prescribed for treatment of pain with debridements on 10/30/2019. OARRS was appropriate. No signs of diversion or abuse. Encouraged to call with any increase in pain or drainage, fever or chills. F/U in 2 weeks or sooner if needed.
[2019-12-11 12:57] VITALS: BP 125/71; PULSE 80; RESP 16; TEMP 36.6; BMI 24.9
--- NOTE | 2019-12-11 18:06 | PN.PCM_ITS ---
(1) Type 2 diabetes, uncontrolled, with ulcer of heel Status: Chronic Code(s): E11.621 - Type 2 diabetes mellitus with foot ulcer; E11.65 - Type 2 diabetes mellitus with hyperglycemia; L97.409 - Non-pressure chronic ulcer of unspecified heel and midfoot with unspecified severity Comment: right plantar heel (2) PAD (peripheral artery disease) Status: Chronic Code(s): I73.9 - Peripheral vascular disease, unspecified (3) Cellulitis and abscess of foot Status: Chronic Code(s): L03.119 - Cellulitis of unspecified part of limb; L02.619 - Cutaneous abscess of unspecified foot (4) Type 2 diabetes, controlled, with ulcer of heel Status: Chronic Code(s): E11.621 - Type 2 diabetes mellitus with foot ulcer; L97.409 - Non-pressure chronic ulcer of unspecified heel and midfoot with unspecified severity (5) Non-healing open wound of heel Status: Chronic Qualifiers: Encounter type: subsequent encounter Laterality: right Qualified Code(s): S91.301D - Unspecified open wound, right foot, subsequent encounter Code(s): S91.309A - Unspecified open wound, unspecified foot, initial encounter (6) Peripheral vascular disease Status: Chronic Code(s): I73.9 - Peripheral vascular disease, unspecified (7) Type II diabetes mellitus Status: Chronic Qualifiers: Diabetes mellitus terminal operations supervisor insulin use: without terminal operations supervisor use Diabetes mellitus complication status: with skin complications Diabetes mellitus complication detail: with foot ulcer Qualified Code(s): E11.621 - Type 2 diabetes mellitus with foot ulcer; L97.509 - Non-pressure chronic ulcer of other part of unspecified foot with unspecified severity Code(s): E11.9 - Type 2 diabetes mellitus without complications Comment: Valdez grade 3 Type of Wound Date of Service: 12/11/19 Chief Complaint: Nonhealing ulcer right heel, Valdez Grade 3 diabetic ulcer. History of Wound: Gibson is here for evaluation of an ulcer of his right heel. He was recently treated for this same area with Theraskin application and was discharged approximately 8 weeks ago. He has noticed increased pain in his heel for the last 2 weeks and last his noted that the area had opened after his software product specialist had debrided some callus from the area. He has been applying Aquacel and gauze to the ulcer. He does follow with Dr. Navas regularly and had a bypass of his right SFA and popliteal arteries earlier this year. He has had procedures for his arterial disease in past to both of his lower extremities. He has tried alternative treatments with supplements and chelation therapy in the past. He also has diabetes and recent A1C was 7.2% He does wear diabetic shoes. He had been undergoing chelation treatments by Dr. German in [place]. He denies fever, chills, erythema or heavy drainage. He reports significant pain and discomfort of his right heel and his entire right leg which no one can explain. In March 2019, he was hospitalized due to occlusion of his bypass graft in his right leg and Dr. Navas was able to open it 50%. He also has blockages in his left leg. Dr. Navas is unable to revascularize either leg at this time and he may ultimately require limb amputation if his vascular disease worsens. Progress of Wound: Gibson is here to follow up for nonhealing ulcer of his right heel. He reports his pain is about the same this week. He has been tolerating Aquacel Ag dressings to pack into his wound every other day and his notes heavy drainage. There has been no signioficant improvement this week and some worsening of the tunneling. XRay did not show osteomyelitis and there is not the palpable hard area that was present last week. Discussed his case with Dr. Alvarado regarding surgical debridement and she does not think it would salvage his limb. She recommended referral to [facility] limb salvage vascular surgery and he was seen there and was told that there was nothing additional that they could do for him and they recommended amputation. Denies fever, chills + erythema and increased drainage. - Physical Exam Vital Signs Temp Pulse Resp BP 98 F 80 16 125/71 H 12/11/19 12:57 12/11/19 12:57 12/11/19 12:57 12/11/19 12:57 General: Alert, Oriented x3, Cooperative, No apparent distress HEENT: Atraumatic, Normocephalic Oral: Moist Mucosa Extremities: Edema Skin: Ulcer/ Wound Wound Measurements and Assessment WC - Nurse 1 - General Ulcer Measurement Start: 11/16/19 09:36 Freq: Status: Active Protocol: Activity Type Activity Date Activity User E-Sign Co-Sign Detail Recorded Client Recorded Date Recorded By Document 12/11/19 12:57 [facility] [id number] 12/11/19 13:55 [facility] 12/11/19 12:57 Wound Center Nurse 1 [Ulcer Assessment] #14- R HEEL -Combined with other wound No -Current Size (cm) - Length 0.8 -Current Size (cm) - Width 0.7 -Current Size (cm) - Depth 0.7 -Total Square Cm 0.56 -Photo Taken No -Epithelialization None Present -Tunneling Yes -Tunneling Position (O'clock) 1 -Tunneling Distance (cm) 2.5 -Undermining/Tunneling No -Circular Undermining No -Exudate Amt Medium -Exudate Type Serosanguineous -Wound Margin Distinct, Outline Attached -Granulation Amt Medium (34-66%) -Granulation Quality Red -Slough/Fibrin Yes -Necrosis Amt Small (1-33%) -Necrotic Tissue Type Adherent Slough -Texture (Shahana-wound Skin Appearance) Assessed, Scarring -Moisture (Shahana-wound Skin Appearance Assessed, ) Maceration -Color (Shahana-wound Skin Appearance) Assessed, Erythema,Palor -Temperature (Shahana-wound Skin No Abnormality Appearance) (Pt Warm) -Tenderness on Palpation (Shahana-wound Yes Skin Appearance) -Ulcer Cleansing Rinsed/ Irrigated with Saline -Foul Odor after Cleansing No -Anesthetic Used 5% Lidocaine Gel [Edema Assessment] -Lower Limb Edema Present Yes -Right Calf (cm) 27.7 -Right Ankle (cm) 22 Psych/Mental Status: Normal Affect, Appropriate Debridement Note Post-Debridement Measurements/Treatment WC - Nurse 2 - General Ulcer CM Notes Start: 11/16/19 09:36 Freq: Status: Active Protocol: Activity Type Activity Date Activity User E-Sign Co-Sign Detail Recorded Client Recorded Date Recorded By Document 11/20/19 12:51 DV [id number] 11/20/19 13:05 DV Document 11/27/19 11:39 DV [id number] 11/27/19 11:46 DV 11/20/19 11/27/19 12:51 11:39 Wound Center Nurse 2 #14- R HEEL -Time 12:51 11:43 -Correct Patient Yes Yes -Correct Side, Site, Position Yes Yes -Correct Procedure Yes Yes -Procedure Performed Yes Yes -Type of Procedure Debridement Debridement -Clinical Debridement Subcutaneous Subcutaneous -Post Debridement Size (cm) - Length 0.7 0.7 -Post Debridement Size (cm) - Width 0.7 0.8 -Post Debridement Size (cm) - Depth 0.7 0.8 -Total Square Cm 0.49 0.56 -Wound/Ulcer Outcome Not Healed Not Healed -Ulcer Cleansing Rinsed/ Rinsed/ Irrigated with Irrigated with Saline Saline -Foul Odor after Cleansing No -Bioengineered Tissue No -Bleeding Controlled with Pressure Pressure -Other 2.5cm @ 2:00 -Offloading No -Type of Offloading Surgical Shoe -Treatment Response Procedure Procedure Tolerated Well Tolerated Well Pain Scale: 0-10 Numeric Is Patient Pain Free? Yes Yes No debridement was completed today - patient sent to ER Assessment/Plan Clinical Impression(s) from Imaging Studies Foot X-Ray 11/20/19 14:12 IMPRESSION: Degenerative changes at the great toe with fusion of the distal interphalangeal joint. Soft tissue swelling and air within it along the plantar aspect underlying the calcaneus. An ulceration should be ruled out. Electronically Signed: Cedric Mercer, at 14:39 EDT , Service support , Os Calcis X-ray 11/20/19 14:12 IMPRESSION: Enthesophyte of the calcaneous at the Achilles tendon insertion Soft tissue swelling along the plantar aspect of the calcaneus with findings suggestive of ulceration. 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 Diabetes mellitus - controlled. Peripheral vascular disease - status post revascularization 08/07/18 and 03/2019 Plan: Demetriuss ulcer was evaluated and debrided today with no improvement from last week. There is evidence of cellulitis and am concerned that he needs IV antibiotics. He was referred to the ER and sent there. Case discussed with ER physician and also with Dr. Good. Oxycodone 5 mg #45 were prescribed for treatment of pain with debridements on 10/30/2019. OARRS was appropriate. No signs of diversion or abuse. Encouraged to call with any increase in pain or drainage, fever or chills.
== END 2019-12-15 23:59 ==
LOC: WC 15:03
PROVIDERS: Family Provider Family Medicine; PCP Family Medicine; Referring Provider Family Medicine; Visit Provider Family Medicine
DX: E11.621 Type 2 diabetes mellitus with foot ulcer (principal); E11.51 Type 2 diabetes mellitus with diabetic peripheral angiopathy without gangrene; L97.412 Non-pressure chronic ulcer of right heel and midfoot with fat layer exposed; E11.40 Type 2 diabetes mellitus with diabetic neuropathy, unspecified
CPT/HCPCS: 11042; 73630; 73650; 82962; 87070; 87075; 87077; 87205; 97605; 99183; 99212; G0277; G0463

== ENCOUNTER 2019-12-15 19:50 | Inpatient (IN) | payer MEDICARE, OTHER, SELFPAY ==
[2019-12-12 11:57] VITALS: BMI 26.6
[2019-12-15 20:12] VITALS: BP 141/80; PULSE 71; PULSE 80; RESP 18; TEMP 36.8; O2SAT 96; O2SAT 98; BMI 25.0
[2019-12-15 20:15] VITALS: BMI 25.2
[2019-12-15 21:30] LABS: Bedside Glucose 142 mg/dL (70-110)
--- NOTE | 2019-12-15 21:48 | PCM.RX.CS ---
Consult Pharmacy has been consulted to manage selected antiobiotic: Vancomycin Type of Consult: Follow-up Suspected Infection: Osteomyelitis Prior Doses of Antibiotics Received/Current Regimen: Medications Vancomycin HCl (Vancomycin) 1,000 mg in 200 mls @ 200 mls/hr IV Q12H [facility] Stop: 01/23/20 04:01 Weight used for dosin.2 kg Estimated Creatinine Clearance: 67 Goal Trough: 15-20 mcg/mL Pharmacy Plan for Drug Dosing: [place] [facility] [place] No gap in dosing, so will continue with 1000mg q12h and next draw a trough level on 12/19/19. Stop date of 01/23/20 was added to order by TCU. Pharmacy Service will continue to monitor and adjust dosing as required. Follow-Up Labs: Trough Vancomycin Labs to be done on [date and time ordered]: 12/19/19 @0251
--- NOTE | 2019-12-15 22:06 | PCM.HP.STD ---
Problem List (1) Debility Status: Acute (2) Open wound of right heel Status: Acute (3) Foot osteomyelitis, right Status: Acute (4) Coronary artery disease Status: Chronic (5) Peripheral arterial occlusive disease Status: Chronic (6) Diabetes mellitus Status: Chronic (7) Stroke Status: Chronic (8) Depression Status: Chronic History of Present Illness Date of Admission: 12/15/19 Chief Complaint: Here for rehabilitation, strengthening, intravenous antibiotics, prior to discharge home with . 12/11/2019 The patient is a 69 year old Male with below past medical history presented to [facility] Emergency Department for infected wound. 12/11/2019 X-ray right foot showed right heel wound, concerning for osteomyelitis. Chronic right heel wound, worsening redness, swelling right foot x 5 days. Failed outpatient treatment right foot infection. specialist recommended amputation of right foot, patient reluctant. On Ciprofloxacin, Flagyl for known osteomyelitis. Oxycodone 10MG given for pain. Zosyn IV given. 12/11/2019 Admit to Hospital. Amputation recommended, but patient reluctant. Vancomycin/Zosyn for right foot osteomyelitis. 12/12/2019 X-ray right ankle showed right heel osteomyelitis. 12/12/2019 Chest X-ray negative. 12/12/2019 Dr. Good performed excisional debridement right heel ulcer including muscle, bone. Right calcaneus bone biopsy. 12/13/3029 Dr. Holt noted surgical cultures growing gram positive rods, gram positive cocci. Continue Vancomycin, Zosyn, recommended 6 weeks of IV antibiotics via PICC line. 12/15/2019 Wound cultures growing Staph epidermidis, Corynebacterium. Dr. Holt recommended 6 weeks of IV Vancomycin, Ertapenem. Severe peripheral arterial occlusive disease followed by Dr. Navas, expected outcome still amputation. 12/15/2019 Admit to TCU with debility, here for rehabilitation, strengthening, intravenous antibiotics, prior to discharge home with . Past Medical History Past Medical History (Chronic Problems): Chronic Problems Coronary artery disease (Chronic) Peripheral arterial occlusive disease (Chronic) Diabetes mellitus (Chronic) Stroke (Chronic) Depression (Chronic) Type 2 diabetes, uncontrolled, with ulcer of heel (Chronic) right plantar heel Stage II pressure ulcer of sacral region (Chronic) Diabetes with ulcer of toe (Chronic) PAD (peripheral artery disease) (Chronic) Cellulitis and abscess of foot (Chronic) Type 2 diabetes, controlled, with ulcer of heel (Chronic) Non-healing open wound of heel (Chronic) Hyperlipidemia (Chronic) Peripheral vascular disease (Chronic) Hypertension (Chronic) Coronary artery disease (Chronic) Status post CABG Type II diabetes mellitus (Chronic) Valdez grade 3 Allergies morphine Allergy (Verified 12/11/19 16:26) PT UNSURE OF REACTION i was told after surgery that i shouldn't have it rivaroxaban [From Xarelto] Allergy (Verified 12/11/19 14:29) Other Home Medications: Ambulatory Orders Medication Instructions Recorded Aspirin [Lite Coat Aspirin] 325 mg PO DAILY 06/13/18 Cholecalciferol (Vitamin D3) 5,000 mg PO DAILY 06/13/18 [Vitamin D3] Clopidogrel Bisulfate [Clopidogrel] 75 mg PO DAILY 09/08/18 Venlafaxine HCl 37.5 mg PO DAILY 12/11/19 Diclofenac Sodium [Voltaren] 1 applic TOPICAL 4X/DAY PRN PRN 12/12/19 Acetaminophen [Tylenol Tablet] 650 mg PO Q6H PRN PRN tab 12/15/19 Ertapenem Sodium [Ertapenem] 1 gm IV Q24H 12/15/19 Glucagon 1 mg IM .X1 PRN syringe 12/15/19 Insulin Lispro [Humalog KwikPen] See Protocol SUBCUT ACHS 12/15/19 Mag Hydrox/Al Hydrox/Simeth 30 ml PO Q6H PRN PRN udc 12/15/19 [Mylanta II] Nutritional Supplement [Singh - 1 packet PO BIDCM 12/15/19 [place]ANGE FLAVOR] Oxycodone [Oxyir] 10 mg PO Q4H PRN PRN 3 Days #12 tab 12/15/19 Vancomycin IV [Vancomycin] 1,000 mg IV Q12H 12/15/19 Surgical History: coronary bypass surgery, - - Recurrent back surgeries ?3, lower extremity bypass grafting Psychiatric History: Depression Lives: Spouse/ Significant Other Smoking Status: Never smoker Tobacco Use: Non-smoker Alcohol: None Drugs: None - *Family History Sibling History Items: Cancer Maternal History Items: Diabetes, Heart Disease, Hypertension, Stroke Paternal History Items: Diabetes, Heart Disease, Pulmonary Disease Review of Systems Constitutional: Denies: Chills, Fever, Weight Change HEENT: Denies: Head Aches, Sinus Congestion, Sinus Drainage Cardiovascular: Denies: Chest Pain, Palpitations Respiratory: Denies: Cough, Shortness of breath at rest, Sputum production Gastrointestinal: Denies: Abdominal Pain, Nausea, Vomiting Genitourinary: Denies: Dysuria Musculoskeletal: Denies: Joint Pain, Joint Tenderness Skin: Denies: Rash, Wounds Neurological: Denies: Numbness, Tingling, Focal weakness Psychiatric: Denies: Anxiety, Depression, Homicidal Ideations, Suicidal Ideations Hematologic/ Lymphatic: Denies: Easy Bruising, Easy Bleeding VTE Information - Inpt Only VTE Present on Admission: No VTE Mechan Device Prophylaxis: Knee High FRANSISCA Hose VTE Pharm Prophylaxis ordered?: Yes Patient Problems: Active and Suspected Problems Debility (Acute) Open wound of right heel (Acute) Foot osteomyelitis, right (Acute) - Physical Exam Vitals/I&O's: Weight: 75.189 kg Body Mass Index (BMI) 25.2 General: Alert, Oriented x3, Cooperative HEENT: Atraumatic, PERRLA, EOMI, Normocephalic Neck: Supple, No JVD, Negative Carotid Bruits Lungs: Clear to auscultation, Normal air movement Cardiovascular: Regular rate, No murmurs Abdomen: Bowel Sounds Present, Soft, Non Tender Extremities: No edema, Capillary Refill Less than 3 Seconds, - - Right foot dressed. Skin: No rashes, No breakdown Musculoskeletal: No Tenderness to Palpation of Joints or Extremities Neurological: Cranial nerves II-XII grossly intact Psych/Mental Status: Normal Affect, Appropriate Laboratory Results 12/15/19 21:18: POC Glucose 142 H Current Medications Acetaminophen (Tylenol) 650 mg PO Q6H PRN PRN PRN Reason: Pain Score 1-10/Temp > 100.7 F Al Hydroxide/Mg Hydroxide (Mylanta Ii) 30 ml PO Q6H PRN PRN PRN Reason: Gastric Burning Aspirin (Aspirin) 325 mg PO DAILYCM [facility] Cholecalciferol (Vitamin D (25mcg)) 5,000 unit PO DAILY RACHANA Clopidogrel Bisulfate (Plavix) 75 mg PO DAILY RACHANA Glucagon () 1 mg IM .X1 PRN PRN Reason: Hypoglycemia Heparin Sodium (Beef Lung) () 50 units IV UD PRN PRN Reason: PICC Line Heparin Flush Ertapenem 1 gm/ Sodium (Chloride) 50 mls @ 100 mls/hr IV Q24 RACHANA Vancomycin IV Pharmacy to Dose (1 ea/ Sodium Chloride) 250 mls @ 1 mls/hr IV PRN PRN Sodium Chloride () 250 mls @ 15 mls/hr IV .[id number] PRN PRN Reason: Saline Flush Vancomycin HCl (Vancomycin) 1,000 mg in 200 mls @ 200 mls/hr IV Q12H RACHANA Stop: 01/23/20 04:01 Insulin Human Lispro (Humalog Kwikpen (Bkc)) 0 unit SC ACHS RACHANA; Protocol Non-Formulary Medication (Diclofenac Sodium) 1 applic TOPICAL 4X/DAY PRN PRN PRN Reason: Muscle Aches Nutritional Formula (Singh - [place] Flavor) 1 packet PO BIDCM RACHANA Oxycodone HCl (Oxyir) 10 mg PO Q4H PRN PRN PRN Reason: Pain Score 4-10/10 Sodium Chloride () 10 - 40 ml IV UD PRN PRN Reason: Open End PICC Flush Sodium Chloride (0.9% Nacl (Sterile) Posiflush) 10 - 40 ml IV UD PRN PRN Reason: Port access or dressing change Sodium Hypochlorite (Dakins Solution 0.25% (1/2 Strength)) 1 applic TOPICAL 1000 RACHANA; Protocol Tuberculin PPD (Tubersol, Aplisol, Ppd) 5 tu ID X1 ONE Stop: 12/16/19 10:01 Tuberculin PPD (Tubersol, Aplisol, Ppd) 5 tu ID X1 ONE Stop: 12/23/19 10:01 Venlafaxine HCl (Effexor Xr) 37.5 mg PO DAILY [facility] Assessment/Plan All Active Problems Osteomyelitis of foot, right, acute (Acute) Cellulitis of foot, right (Acute) Type 2 diabetes mellitus with diabetic polyneuropathy (Acute) Debility (Acute) Open wound of right heel (Acute) Foot osteomyelitis, right (Acute) Venous ulcer of right lower extremity without varicose veins (Resolved) Varicose veins of right lower extremity with ulcer (Resolved) 69 year old male with below past medical history hospitalized right heel osteomyelitis, underwent debridement 12/12/[address] Good, cultures growing s. epi, corynebacterium, amputation recommended but patient refuses, admitted to TCU with debility, here for rehabilitation, strengthening, intravenous antibiotics, prior to discharge home with . Debility - PT/OT. Pain - Tylenol 1000MG Q6H PRN pain (1-3), Tramadol 50MG Q6H PRN pain (4-5), Oxycodone 10MG Q4H PRN pain (6-10). Bowel - Miralax 17GM daily, Senna/colace 2 tablets BID, Dulcolax 10MG ND daily PRN. Adult immunization - Administer Prevnar 13, Pneumovax 23, Fluzone as appropriate. DVT prophylaxis - Lovenox 40MG SC daily. PAOD - Aspirin 325MG daily, Plavix 75MG daily. Vitamin D deficiency - D3 5000IU daily. Right foot osteomyelitis - Invanz 1GM IV Q24H, Vancomycin 1GM IV Q12 thru 01/23/2020, consult Dr. Holt. Right foot amputation or right BKA recommended. Diabetes Mellitus II - diet controlled, Glucagon 1MG IM x 1 PRN hypoglycemia. GERD - Mylanta II 30ML Q6H PRN. Right heel wound - Singh 1 packet twice daily, Dakins daily, consult wound nurse, consult Dr. Good. Right foot amputation or right BKA recommended. Depression - Venlafaxine 37.5MG daily.
[2019-12-15] MEDS: oxyCODONE 5 MG Tablet 10 MG PO (23:29)
[2019-12-16] MEDS: Vancomycin IV 1,000 MG/200 ML BAG 200 MG IV ×2 (03:34→17:14)
[2019-12-16] MEDS: 0.9% Saline Lock 10 ML Syringe IV ×2 (03:40→17:15)
[2019-12-16] MEDS: oxyCODONE 5 MG Tablet 10 MG PO ×4 (04:19→19:48)
[2019-12-16] MEDS: Clopidogrel Bisulfate 75 MG Tablet PO (04:20)
[2019-12-16] MEDS: Venlafaxine XR 37.5 MG Capsule PO (04:20)
[2019-12-16 04:52] LABS: Probe Check PASS; Specimen Processing Control PASS
[2019-12-16 05:51] LABS: Absolute Lymphocyte Count 1.42 X10^3/uL (0.83-4.51); Absolute Neutrophil Count 3.6 X10^3/uL (2.0-7.7); Basophil# 0.07 X10^3/uL; Basophil% 1.2 % (0-1); Eosinophil# 0.25 X10^3/uL; Eosinophils% 4.3 % (0-5); Hematocrit 43.3 % (40-54); Hemoglobin 13.9 g/dL (13.0-16.5); Lymphocyte # 1.42 X10^3/ul (4.0); Lymphocyte % 24.1 % (19-41); Mean Corp Hgb Conc 32.1 g/dL (32-36); Mean Corpuscular Hgb 31.4 pg (27.0-32.0); Mean Corpuscular Volume 97.7 fL (80-94); Mean Platelet Vol. 9.2 fl (6.2-12.0); Monocyte# 0.52 X10^3/uL; Monocyte% 8.8 % (0-10); NRBC Flagged by Analyzer 0 % (0-5); Neutrophil # 3.55 X10^3/uL (2.7-7.7); Neutrophil % 60.4 % (47-70); Platelet Count 247 K/mm3 (150-450); RBC Distribution Width CV 13.5 % (11.6-14.6); RBC Distribution Width SD 48.5 fl (35.1-43.9); Red Blood Count 4.43 M/mm3 (4.6-6.2); White Blood Count 5.9 K/mm3 (4.4-11.0)
[2019-12-16 06:22] LABS: Anion Gap 6 (5-15); BUN 23 mg/dL (7-18); BUN/Creat Ratio 22.3 RATIO (10-20); Calcium,Total 8.6 mg/dL (8.5-10.1); Chloride 105 mmol/L (98-107); Creatinine, Serum 1.03 mg/dL (0.70-1.30); EST Glomerular Filtration Rate 76 mL/min (>60); Est Glom Filt Rate - Afr Amer 92 mL/min (>60); Estimated Creatinine Clearance 65.49 ml/min; Glucose 141 mg/dL (74-106); Potassium 3.7 mmol/L (3.5-5.1); Sodium Level 139 mmol/L (136-145)
[2019-12-16 06:26] LABS: Bedside Glucose 147 mg/dL (70-110)
[2019-12-16 06:49] VITALS: BP 156/87; PULSE 70; RESP 18; TEMP 36.8; O2SAT 97
[2019-12-16 06:59] LABS: Erythrocyte Sedimentation Rate 16 mm/hr (0-20)
[2019-12-16] MEDS: Acetaminophen 500 MG Tablet 1000 MG PO ×2 (07:15→22:58)
[2019-12-16] MEDS: Aspirin 325 MG Tablet PO (08:13)
--- NOTE | 2019-12-16 09:56 | PCM.PN.RX ---
<MicahDagoberto mirelesi - Last Filed: 12/16/19 09:56> Progress Note - Pharmacy Subjective: TCU Admission Objective: Allergies morphine Allergy (Verified 12/11/19 16:26) PT UNSURE OF REACTION i was told after surgery that i shouldn't have it rivaroxaban [From Xarelto] Allergy (Verified 12/11/19 14:29) Other Current Medications Generic Name Dose Route Start Last Admin Trade Name Freq PRN Reason Stop Dose Admin Acetaminophen 1,000 mg 12/15/19 22:25 12/16/19 07:15 Tylenol PO 1,000 mg Q6H PRN PRN Administration Pain Score 1-3/10 Al Hydroxide/Mg Hydroxide 30 ml 12/15/19 20:29 Mylanta Ii PO Q6H PRN PRN Gastric Burning Aspirin 325 mg 12/16/19 08:00 12/16/19 08:13 Aspirin PO 325 mg DAILYCM RACHANA Administration Bisacodyl 10 mg 12/15/19 22:25 Dulcolax RECTAL DAILY PRN Constipation Cholecalciferol 5,000 unit 12/16/19 06:00 12/16/19 04:21 Vitamin D (25mcg) PO 5,000 unit DAILY RACHANA Administration Clopidogrel Bisulfate 75 mg 12/16/19 06:00 12/16/19 04:20 Plavix PO 75 mg DAILY RACHANA Administration Enoxaparin Sodium 40 mg 12/16/19 06:00 12/16/19 04:22 Lovenox SC Not Given DAILY@0600 RACHANA Glucagon 1 mg 12/15/19 20:29 IM .X1 PRN Hypoglycemia Heparin Sodium (Beef Lung) 50 units 12/15/19 21:27 IV UD PRN PICC Line Heparin Flush Ertapenem 1 gm/ Sodium 50 mls @ 100 mls/hr 12/16/19 10:00 Chloride IV 01/23/20 23:59 Q24 RACHANA Vancomycin IV Pharmacy to Dose 250 mls @ 1 mls/hr 12/15/19 21:18 1 ea/ Sodium Chloride IV PRN PRN Sodium Chloride 250 mls @ 15 mls/hr 12/15/19 21:27 12/16/19 03:35 IV 0 mls/hr .[id number] PRN Infusion Saline Flush Vancomycin HCl 1,000 mg in 200 mls @ 200 mls/hr 12/16/19 04:00 07/01/20 04:57 Vancomycin IV 01/23/20 04:01 Infused Q12H [facility] Infusion Nutritional Formula 1 packet 12/16/19 08:00 12/16/19 08:13 Singh - [place] Flavor PO 1 packet BIDCM RACHANA Administration Oxycodone HCl 10 mg 12/15/19 20:29 12/16/19 04:19 Oxyir PO 10 mg Q4H PRN PRN Administration Pain Score 6-10/10 Polyethylene Glycol 17 gm 12/16/19 06:00 12/16/19 04:20 Miralax PO Not Given DAILY [facility] Senna/Docusate Sodium 2 tablet 12/16/19 06:00 12/16/19 04:20 Senokot-S, Shahana-Colace PO Not Given BID [facility] Sodium Chloride 10 - 40 ml 12/15/19 21:27 12/16/19 03:40 IV 30 ml UD PRN Administration Open End PICC Flush Sodium Chloride 10 - 40 ml 12/15/19 21:27 0.9% Nacl (Sterile) Posiflush IV UD PRN Port access or dressing change Sodium Hypochlorite 1 applic 12/16/19 10:00 Dakins Solution 0.25% (1/2 Strength) TOPICAL 1000 [facility] Protocol Tramadol HCl 50 mg 12/15/19 22:24 Ultram PO Q6H PRN PRN Pain Score 4-5/10 Tuberculin PPD 5 12/16/19 10:00 Tubersol, Aplisol, Ppd ID 12/16/19 10:01 X1 ONE Tuberculin PPD 5 12/23/19 10:00 Tubersol, Aplisol, Ppd ID 12/23/19 10:01 X1 ONE Venlafaxine HCl 37.5 mg 12/16/19 06:00 12/16/19 04:20 Effexor Xr PO 37.5 mg DAILY RACHANA Administration Problem List Debility (Acute) Open wound of right heel (Acute) Foot osteomyelitis, right (Acute) Coronary artery disease (Chronic) Peripheral arterial occlusive disease (Chronic) Diabetes mellitus (Chronic) Stroke (Chronic) Depression (Chronic) Vital Signs Temp Pulse Resp BP Pulse Ox 98.3 F 70 18 156/87 H 97 12/16/19 06:49 12/16/19 06:49 12/16/19 06:49 12/16/19 06:49 12/16/19 06:49 Oxygen Delivery Method Room Air Weight: 75.189 kg Body Mass Index (BMI) 25.2 Sodium 139 mmol/L (136-145) 12/16/19 05:10 Potassium 3.7 mmol/L (3.5-5.1) 12/16/19 05:10 Chloride 105 mmol/L (98-107) 12/16/19 05:10 Carbon Dioxide 28.0 mmol/L (21.0-32.0) 12/16/19 05:10 Anion Gap 6 (5-15) 12/16/19 05:10 BUN 23 mg/dL (7-18) H 12/16/19 05:10 Creatinine 1.03 mg/dL (0.70-1.30) 12/16/19 05:10 Est GFR (MDRD) Af Amer 92 mL/min (>60) 12/16/19 05:10 Est GFR (MDRD) Non-Af 76 mL/min (>60) 12/16/19 05:10 BUN/Creatinine Ratio 22.3 RATIO (10-20) H 12/16/19 05:10 Glucose 141 mg/dL (74-106) H 12/16/19 05:10 Assessment/Plan: 1. Pain: acetaminophen 1000mg PO Q6H PRN pain 1-3/10, tramadol 50mg PO Q6H PRN pain 4-5/10, and oxycodone 10mg PO Q4H PRN pain 6-10/10. Please continue to monitor for increased pain, constipation, respiratory depression, renal function and PRN usage. 2. Right foot osteomyelitis/right heel wound: ertapenem 1gm IV daily thru 01/23/20, vancomycin 1000mg Q12H thru 01/23/20, and Singh 1 packet PO BID. ID is consulted. Please continue to monitor for S/S of infection, renal function and diarrhea. 3. DVT prophylaxis: enoxaparin 40mg SC daily. Please continue to monitor for S/S of DVT/bleeding, renal function, platelets (last 247) and hemoglobin (last 13.9 g/dL). 4. PAOD: aspirin 325mg PO DAILYCM and clopidogrel 75mg PO daily. Please continue to monitor for S/S of bleeding and hemoglobin (last 13.9 g/dL). 5. GERD: Mylanta II 30mL PO Q6H PRN gastric burning. Please continue to monitor for gastric burning. 6. Diabetes mellitus: glucagon 1mg IM x1 PRN hypoglycemia. Please continue to monitor for S/S of hypoglycemia. 7. Vitamin D deficiency: cholecalciferol 5000units PO daily. Please continue to monitor annual vitamin D levels. Last from 08/06 was WNL. Psychotropic Medications: 1. Depression: venlafaxine XR 37.5mg PO daily. Based on prescription fill history, patient started filling in mid-August. Please continue to monitor for S/S of depression and suicidal thoughts. Please consider GDR once patient is on a stable dose. Unnecessary Medications: None Bowel Regimen: Miralax 17gm PO daily, senna/docusate 2T PO BID, and bisacodyl 10mg [place] daily PRN constipation. Please continue to monitor for constipation, diarrhea and PRN usage. Date of Note:: 12/16/19 - Provider Comments Provider responsibility: Provider responsible to enter orders to implement recommendations <Jerrod Medina Chi - Last Filed: 12/16/19 15:51> Progress Note - Pharmacy Subjective: [] Objective: Allergies morphine Allergy (Verified 12/11/19 16:26) PT UNSURE OF REACTION i was told after surgery that i shouldn't have it rivaroxaban [From Xarelto] Allergy (Verified 12/11/19 14:29) Other Current Medications Generic Name Dose Route Start Last Admin Trade Name Freq PRN Reason Stop Dose Admin Acetaminophen 1,000 mg 12/15/19 22:25 12/16/19 07:15 Tylenol PO 1,000 mg Q6H PRN PRN Administration Pain Score 1-3/10 Al Hydroxide/Mg Hydroxide 30 ml 12/15/19 20:29 Mylanta Ii PO Q6H PRN PRN Gastric Burning Aspirin 325 mg 12/16/19 08:00 12/16/19 08:13 Aspirin PO 325 mg DAILYCM RACHANA Administration Bisacodyl 10 mg 12/15/19 22:25 Dulcolax RECTAL DAILY PRN Constipation Cholecalciferol 5,000 unit 12/16/19 06:00 12/16/19 04:21 Vitamin D (25mcg) PO 5,000 unit DAILY RACHANA Administration Clopidogrel Bisulfate 75 mg 12/16/19 06:00 12/16/19 04:20 Plavix PO 75 mg DAILY RACHANA Administration Enoxaparin Sodium 40 mg 12/16/19 06:00 12/16/19 04:22 Lovenox SC Not Given DAILY@0600 RACHANA Glucagon 1 mg 12/15/19 20:29 IM .X1 PRN Hypoglycemia Heparin Sodium (Beef Lung) 50 units 12/15/19 21:27 IV UD PRN PICC Line Heparin Flush Ertapenem 1 gm/ Sodium 50 mls @ 100 mls/hr 12/16/19 10:00 12/16/19 11:36 Chloride IV 01/23/20 23:59 Infused Q24 RACHANA Infusion Vancomycin IV Pharmacy to Dose 250 mls @ 1 mls/hr 12/15/19 21:18 1 ea/ Sodium Chloride IV PRN PRN Sodium Chloride 250 mls @ 15 mls/hr 12/15/19 21:27 12/16/19 03:35 IV 0 mls/hr .[id number] PRN Infusion Saline Flush Vancomycin HCl 1,000 mg in 200 mls @ 200 mls/hr 12/16/19 04:00 12/16/19 04:57 Vancomycin IV 01/23/20 04:01 Infused Q12H RACHANA Infusion Nutritional Formula 1 packet 12/16/19 08:00 12/16/19 08:13 Singh - [place] Flavor PO 1 packet BIDCM RACHANA Administration Oxycodone HCl 10 mg 12/15/19 20:29 12/16/19 15:27 Oxyir PO 10 mg Q4H PRN PRN Administration Pain Score 6-10/10 Polyethylene Glycol 17 gm 12/16/19 06:00 12/16/19 04:20 Miralax PO Not Given DAILY [facility] Senna/Docusate Sodium 2 tablet 12/16/19 06:00 12/16/19 04:20 Senokot-S, Shahana-Colace PO Not Given BID RACHANA Sodium Chloride 10 - 40 ml 12/15/19 21:27 12/16/19 03:40 IV 30 ml UD PRN Administration Open End PICC Flush Sodium Chloride 10 - 40 ml 12/15/19 21:27 0.9% Nacl (Sterile) Posiflush IV UD PRN Port access or dressing change Sodium Hypochlorite 1 applic 12/16/19 10:00 12/16/19 10:42 Dakins Solution 0.25% (1/2 Strength) TOPICAL 1 applicatio 1000 RACHANA Administration Protocol Tramadol HCl 50 mg 12/15/19 22:24 12/16/19 14:22 Ultram PO 50 mg Q6H PRN PRN Administration Pain Score 4-5/10 Tuberculin PPD 5 tu 12/23/19 10:00 Tubersol, Aplisol, Ppd ID 12/23/19 10:01 X1 ONE Venlafaxine HCl 37.5 mg 12/16/19 06:00 12/16/19 04:20 Effexor Xr PO 37.5 mg DAILY RACHANA Administration Problem List Debility (Acute) Open wound of right heel (Acute) Foot osteomyelitis, right (Acute) Coronary artery disease (Chronic) Peripheral arterial occlusive disease (Chronic) Diabetes mellitus (Chronic) Stroke (Chronic) Depression (Chronic) Vital Signs Temp Pulse Resp BP Pulse Ox 97.2 F L 81 18 152/82 H 97 12/16/19 15:33 12/16/19 15:33 12/16/19 15:33 12/16/19 15:33 12/16/19 15:33 Oxygen Delivery Method Room Air Weight: 75.189 kg Body Mass Index (BMI) 25.2 Sodium 139 mmol/L (136-145) 12/16/19 05:10 Potassium 3.7 mmol/L (3.5-5.1) 12/16/19 05:10 Chloride 105 mmol/L (98-107) 12/16/19 05:10 Carbon Dioxide 28.0 mmol/L (21.0-32.0) 12/16/19 05:10 Anion Gap 6 (5-15) 12/16/19 05:10 BUN 23 mg/dL (7-18) H 12/16/19 05:10 Creatinine 1.03 mg/dL (0.70-1.30) 12/16/19 05:10 Est GFR (MDRD) Af Amer 92 mL/min (>60) 12/16/19 05:10 Est GFR (MDRD) Non-Af 76 mL/min (>60) 12/16/19 05:10 BUN/Creatinine Ratio 22.3 RATIO (10-20) H 12/16/19 05:10 Glucose 141 mg/dL (74-106) H 12/16/19 05:10 Assessment/Plan: Psychotropic Medications: Unnecessary Medications: Bowel Regimen: - Provider Comments Provider responsibility: Provider responsible to enter orders to implement recommendations Provider Comments to Recommendations by Pharmacy: Agree
--- NOTE | 2019-12-16 09:59 | NURSING ---
Per Mireille, wound care nurse any nurse can change the patient's dressing.
[2019-12-16 10:00] VITALS: PULSE 71; RESP 16; O2SAT 95
[2019-12-16] MEDS: Tuberculin,Purif.prot.deriv. 50 TU/ML Vial 5 ML ID (10:11)
[2019-12-16] MEDS: DAKIN'S SOL HALF STRENGTH (=0.25%) 1 APPLIC TOPICAL (10:42)
--- NOTE | 2019-12-16 11:06 | NURSING ---
Dr Holt and Dr. Good's offices notified of consult.
[2019-12-16 11:25] LABS: Bedside Glucose 165 mg/dL (70-110)
--- NOTE | 2019-12-16 11:37 | NURSING ---
wound photo: right heel
--- NOTE | 2019-12-16 12:30 | CASEMGMT ---
Social Work Consult: Mental Health Informant: Tammy, Membership Coordinator. Tammy reporting that resident made suicidal comment during therapy session. See social work assessment for complete details. Met with resident in room. Introduced self as well as protective services social worker role. This protective services social worker broached topic of suicidal thoughts/plans/intents. Resident states to have had suicidal thoughts years ago but nothing current. Resident denies any active thoughts/plans/intents of suicide. This protective services social worker broaching suicidal comment that patient made with Occupational Therapy. Resident reports to be depressed. Resident states to want to live for adult children and grandchildren. Resident denies every thinking out a plan or having intent to follow through with suicidal thought. Resident forward focused and states I want to get better. Resident states to believe that seeing resident spouse would help. This protective services social worker educated resident on visitor policy due to COVID-19 pandemic. Resident voicing understanding to this and aware of facetime options. This protective services social worker inquiring if there are other activities that give patient meaning/purpose outside of speaking with family. Resident states to be talking with spouse daily and does not identify any activities that resident could participate in during TCU stay. Resident does share with this protective services social worker that resident doctor is recommending for resident to have amputation completed. Resident states I just won't do it. Resident also states that resident spouse is supportive of amputation of resident foot and this is hard. Resident states to have support from spouse but to not be agreeing on resident health choices. Active support and listening provided. Findings: Resident with no active suicidal thoughts/plans/intents. Resident presents as depressed and discouraged with current medical diagnosis and limitations. Social Work to continue to follow as needed. Jb PAN, MARIAM
[2019-12-16] MEDS: traMADol 50 MG Tablet PO (14:22)
[2019-12-16 15:33] VITALS: BP 152/82; PULSE 81; RESP 18; TEMP 36.2; O2SAT 97
[2019-12-16 17:01] LABS: Bedside Glucose 124 mg/dL (70-110)
[2019-12-16 21:51] LABS: Bedside Glucose 159 mg/dL (70-110)
--- NOTE | 2019-12-16 22:23 | PCA ---
This quencher operator went in to ask pt if he was ready to get washed up for the evening and change into he's bed chothes and he refused to wash and change chothes.
[2019-12-17 03:58] VITALS: BP 138/71; PULSE 82; RESP 18; TEMP 36.6
[2019-12-17] MEDS: Vancomycin IV 1,000 MG/200 ML BAG 200 MG IV ×2 (04:09→15:43)
[2019-12-17] MEDS: oxyCODONE 5 MG Tablet 10 MG PO ×4 (04:12→20:52)
[2019-12-17] MEDS: 0.9% Saline Lock 10 ML Syringe IV ×2 (04:12→10:21)
[2019-12-17] MEDS: Venlafaxine XR 37.5 MG Capsule PO (04:13)
[2019-12-17] MEDS: Clopidogrel Bisulfate 75 MG Tablet PO (04:13)
[2019-12-17 06:26] LABS: Bedside Glucose 141 mg/dL (70-110)
[2019-12-17] MEDS: Aspirin 325 MG Tablet PO (08:27)
--- NOTE | 2019-12-17 08:35 | NURSING ---
During morning medication administration pt was resting in recliner chair watching tv. Pt asked for a pain pill. This nurse asked him what his pain level was and he stated 4 or 5. This nurse told him that he could have some tramadol for his pain. He stated no just give me to oxy. This nurse explained that there were certain parameters for pain medication that were supposed to be followed. Pt then grabbed his leg and started yelling ouch, pt then set is leg back down on his recliners foot rest and calmly stated see look its a 10/10 how about that, now give me my oxy. Then went back to watching tv, oxy given per request for pain rated 10/10
--- NOTE | 2019-12-17 10:31 | PCM.PN.ID ---
Patient Problems: Active and Suspected Problems Debility (Acute) Open wound of right heel (Acute) Foot osteomyelitis, right (Acute) Subjective: Feeling ok, no fever, no n/v/d. - Physical Exam Vitals/I&O's: Vital Signs Temp Pulse Resp BP Pulse Ox 98 F 82 18 138/71 H 97 12/17/19 03:58 12/17/19 03:58 12/17/19 03:58 12/17/19 03:58 12/16/19 15:33 Oxygen Flow Rate (L/min) 96 Oxygen Delivery Method Room Air Weight: 75.189 kg Body Mass Index (BMI) 25.2 Intake and Output for Last 24 Hours 12/15/19 12/16/19 12/17/19 23:59 23:59 23:59 Intake Total 1090 / 1090 322.5 / 322.5 Balance 1090 / 1090 322.5 / 322.5 General: Alert, Cooperative, No apparent distress Lungs: Clear to auscultation, Normal air movement Cardiovascular: Regular rate, Regular Rhythm Abdomen: Soft, Non Tender, Non-Distended Skin: No rashes Laboratory Results 12/16/19 11:20: POC Glucose 165 H 12/16/19 16:56: POC Glucose 124 H 12/16/19 21:42: POC Glucose 159 H 12/17/19 06:08: POC Glucose 141 H Current Medications Acetaminophen (Tylenol) 1,000 mg PO Q6H PRN PRN PRN Reason: Pain Score 1-3/10 Last Admin: 12/16/19 22:58 Dose: 1,000 mg Documented by: Al Hydroxide/Mg Hydroxide (Mylanta Ii) 30 ml PO Q6H PRN PRN PRN Reason: Gastric Burning [facility] Admin: 12/17/19 08:27 Dose: 325 mg Documented by: Bisacodyl (Dulcolax) 10 mg RECTAL DAILY PRN PRN Reason: Constipation Cholecalciferol (Vitamin D (25mcg)) 5,000 unit PO DAILY [facility] Last Admin: 12/17/19 04:12 Dose: 5,000 unit Documented by: Clopidogrel Bisulfate (Plavix) 75 mg PO DAILY [facility] Last Admin: 12/17/19 04:13 Dose: 75 mg Documented by: Glucagon () 1 mg IM .X1 PRN PRN Reason: Hypoglycemia Heparin Sodium (Beef Lung) () 50 units IV UD PRN PRN Reason: PICC Line Heparin Flush Ertapenem 1 gm/ Sodium (Chloride) 50 mls @ 100 mls/hr IV Q24 [facility] Stop: 01/23/20 23:59 Last Admin: 12/17/19 10:05 Dose: 100 mls/hr Documented by: Vancomycin IV Pharmacy to Dose (1 ea/ Sodium Chloride) 250 mls @ 1 mls/hr IV PRN PRN Sodium Chloride () 250 mls @ 15 mls/hr IV .[id number] PRN PRN Reason: Saline Flush Last Infusion: 12/17/19 05:19 Dose: 0 mls/hr Documented by: Vancomycin HCl (Vancomycin) 1,000 mg in 200 mls @ 200 mls/hr IV Q12H [facility] Stop: 01/23/20 04:01 Last Infusion: 12/17/19 05:09 Dose: Infused Documented by: Ketoconazole (Nizoral) 1 applic TOPICAL BID [facility]; Protocol Nutritional Formula (Singh - [place] Flavor) 1 packet PO BIDCM [facility] Last Admin: 12/17/19 08:27 Dose: 1 packet Documented by: Oxycodone HCl (Oxyir) 10 mg PO Q4H PRN PRN PRN Reason: Pain Score 6-10/10 Last Admin: 12/17/19 08:34 Dose: 10 mg Documented by: Polyethylene Glycol (Miralax) 17 gm PO DAILY [facility] Last Admin: 12/17/19 04:14 Dose: Not Given Documented by: Senna/Docusate Sodium (Senokot-S, Shahana-Colace) 2 tablet PO BID [facility] Last Admin: 12/17/19 04:14 Dose: Not Given Documented by: Sodium Chloride () 10 - 40 ml IV UD PRN PRN Reason: Open End PICC Flush Last Admin: 12/17/19 10:21 Dose: 20 ml Documented by: Sodium Chloride (0.9% Nacl (Sterile) Posiflush) 10 - 40 ml IV UD PRN PRN Reason: Port access or dressing change Sodium Hypochlorite (Dakins Solution 0.25% (1/2 Strength)) 1 applic TOPICAL 1000 [facility]; Protocol Last Admin: 12/16/19 10:42 Dose: 1 applicatio Documented by: Tramadol HCl (Ultram) 50 mg PO Q6H PRN PRN PRN Reason: Pain Score 4-5/10 Last Admin: 12/16/19 14:22 Dose: 50 mg Documented by: Tuberculin PPD (Tubersol, Aplisol, Ppd) 5 tu ID [id number] ONE Stop: 12/23/19 10:01 Venlafaxine HCl (Effexor Xr) 37.5 mg PO DAILY [facility] Last Admin: 12/17/19 04:13 Dose: 37.5 mg Documented by: Medical Necessity - Tobacco Use Smoking Status: Never smoker Tobacco Use: Non-smoker Route of nutrition/ use of supplements: [] Nutritional Intake: [] IV Site: [] Baires Catheter: [] - Assessment/Plan Antibiotics: [] Assessment/Plan: [] Active and Suspected Problems Debility (Acute) Open wound of right heel (Acute) Foot osteomyelitis, right (Acute) R heel osteo with DM neuropathy and PAD - bone bx and debridement by Dr. Good 12/12/19. Surg cx with MRSE and corynebacteria. Prior cxs with anaerobes and enterobacter and P. acnes as well. On vanc/ertapenem, stop date 01/23/20, weekly bmp, cbc, LFT, esr, and vanc trough. Will follow
[2019-12-17 11:01] LABS: Bedside Glucose 112 mg/dL (70-110)
[2019-12-17 14:13] VITALS: BP 137/65; PULSE 68; RESP 17; TEMP 37.2; O2SAT 99
[2019-12-17] MEDS: Acetaminophen 500 MG Tablet 1000 MG PO (15:50)
[2019-12-17 17:00] LABS: Bedside Glucose 165 mg/dL (70-110)
--- NOTE | 2019-12-17 17:18 | CHAPLAIN ---
Type of Pastoral Visit _x__ Initial Visit ___ Follow-up Visit ___ On-call Visit ___ General Patient Visit ___ Spiritual Assessment ___ Family Conference ___ Bereavement ___ Rapid Response ___ Code Blue ___ Other (describe below) Pastoral Care Referral From ___ Patient ___ Family ___ Nurse ___ Physician ___ Construction Or Leak Gang Laborer ___ Reimbursement Consultant _x__ - Tightener - Other (describe below) Sacrament/Intervention _x__ Active listening ___ Anointing ___ Voodoo ___ Bereavement ___ Communion _x__ Ramona exploration ___ _x__ Life review _x__ Prayer ___ Reconciliation ___ Sacrament of Sick _x__ Supportive presence ___ Wedding ___ Other (describe below) Pastoral Comments patient identified by Tightener as person in need of spiritual and emotional support; met pt who presented with flat affect but did welcome visit; pt did talk about his health needs over the recent years, foot that won't heal, and being crazy about all that is going on with him which includes 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, current physical separation from of 40 some years, etc.; pt describes his spiritual distress as praying for over 18 months for healing but getting nothing from (God); conversation continues about 'getting no answers or answers we don't like; pt does relate to ramona and druze practice throughout life and belongs to [facility]; pt states that one source of support for him is his muslim and some men from muslim; pt did receive text from [employer] at muslim earlier today but does not want new accounts clerk or muslim contacted for him; asked if pt would like something/someone for support and answer I wouldn't know what it would be; pt admitted that he felt despondent and depressed but said if I wasn't a Restorationist I would think about suicide, but I wouldn't; pt says he has pain and is unable to sleep; pt says he is worried about his and how she is doing at home; pt states that all of his life he was very active and athletic and now this; pt was offered ongoing visits and pt would accept that; pt welcomed prayer with yes, of course and thanked this facility manager for prayer
--- NOTE | 2019-12-17 17:51 | CASEMGMT ---
Social Work MOLST form completed by pt. Pt choosing Full Code and Full treatment. Documentation placed on chart. VASILIY Cruz
[2019-12-18 04:00] VITALS: BP 123/64; PULSE 69; RESP 14; TEMP 36.6; O2SAT 93
[2019-12-18] MEDS: Vancomycin IV 1,000 MG/200 ML BAG 200 MG IV ×2 (04:25→17:06)
[2019-12-18] MEDS: 0.9 % NaCl (Sterile) Posiflush 10 mL IV (05:44)
--- NOTE | 2019-12-18 05:58 | PCA ---
This FABRIC MACHINE OPERATOR offered HS care and to get washed up for the night. Patient refused
[2019-12-18] MEDS: oxyCODONE 5 MG Tablet 10 MG PO ×4 (06:06→21:32)
[2019-12-18] MEDS: Venlafaxine XR 37.5 MG Capsule PO (06:07)
[2019-12-18] MEDS: Clopidogrel Bisulfate 75 MG Tablet PO (06:07)
[2019-12-18] MEDS: DICLOFENAC SODIUM 100 GM GEL..GRAM. TP (06:12)
[2019-12-18 06:31] LABS: Bedside Glucose 138 mg/dL (70-110)
[2019-12-18] MEDS: Aspirin 325 MG Tablet PO (08:08)
--- NOTE | 2019-12-18 10:06 | PCM.PROGNOTE ---
Patient Problems: Active and Suspected Problems Debility (Acute) Open wound of right heel (Acute) Foot osteomyelitis, right (Acute) Subjective: This is 69-year-old male with multiple comorbidities who was seen bedside postoperative heel ulcer debridement with additional bone biopsy of the calcaneus. He denies fever, chill, nausea, vomiting. His pain is reduced when he is dangling his limb. He is residing at this time in the transitional care unit for rehabilitation and for IV antibiotics. The wound VAC is in place to his right heel and he is scheduled for a wound VAC change today. - Physical Exam Vitals/I&O's: Vital Signs Temp Pulse Resp BP Pulse Ox 97.9 F 69 14 123/64 H 93 12/18/19 04:00 12/18/19 04:00 12/18/19 04:00 12/18/19 04:00 12/18/19 04:00 Oxygen Flow Rate (L/min) 96 Oxygen Delivery Method Room Air Weight: 75.189 kg Body Mass Index (BMI) 25.2 Intake and Output for Last 24 Hours 12/16/19 12/17/19 12/18/19 23:59 23:59 23:59 Intake Total 1090 / 1090 1172.5 / 1172.5 320 / 320 Balance 1090 / 1090 1172.5 / 1172.5 320 / 320 General: Alert, Oriented x3, Cooperative Extremities: No cyanosis, No edema, Capillary Refill Less than 3 Seconds, Diminished Peripheral Pulses, Tenderness - Decreased but still present to the right lower extremity and with heel and ulcer palpation. No bogginess or fluctuance on palpation. Compartments of the right lower extremity remain soft Skin: Ulcer/ Wound - No purulence, necrosis or odor. The ulcer is still deep with exposed bone and tunneling. There is improvement and progression of granulation tissue peripherally and there is some fibrous tissue centrally. The erythema and edema have resolved Musculoskeletal: No Tenderness to Palpation of Joints or Extremities, Muscle Wasting Neurological: Sensory exam intact to light touch and pain - Hypersensitivity to light touch, - Psych/Mental Status: Normal Affect, Appropriate Laboratory Results 12/17/19 10:49: POC Glucose 112 H 12/17/19 16:36: POC Glucose 165 H 12/18/19 05:59: POC Glucose 138 H Current Medications Acetaminophen (Tylenol) 1,000 mg PO Q6H PRN PRN PRN Reason: Pain Score 1-3/10 Last Admin: 12/17/19 15:50 Dose: 1,000 mg Documented by: Al Hydroxide/Mg Hydroxide (Mylanta Ii) 30 ml PO Q6H PRN PRN PRN Reason: Gastric Burning Aspirin (Aspirin) 325 mg PO DAILYCM [facility] Last Admin: 12/18/19 08:08 Dose: 325 mg Documented by: Bisacodyl (Dulcolax) 10 mg RECTAL DAILY PRN PRN Reason: Constipation Cholecalciferol (Vitamin D (25mcg)) 5,000 unit PO DAILY [facility] Last Admin: 12/18/19 06:08 Dose: 5,000 unit Documented by: Clopidogrel Bisulfate (Plavix) 75 mg PO DAILY [facility] Last Admin: 12/18/19 06:07 Dose: 75 mg Documented by: Diclofenac Sodium (Voltaren) 0 gm TP 4X/DAY PRN PRN PRN Reason: MUSCLE ACHES Last Admin: 12/18/19 06:12 Dose: 100 gm Documented by: Glucagon () 1 mg IM .X1 PRN PRN Reason: Hypoglycemia Heparin Sodium (Beef Lung) () 50 units IV UD PRN PRN Reason: PICC Line Heparin Flush Ertapenem 1 gm/ Sodium (Chloride) 50 mls @ 100 mls/hr IV Q24 [facility] Stop: 01/23/20 23:59 Last Infusion: 12/17/19 11:21 Dose: Infused Documented by: Vancomycin IV Pharmacy to Dose (1 ea/ Sodium Chloride) 250 mls @ 1 mls/hr IV PRN PRN Sodium Chloride () 250 mls @ 15 mls/hr IV .[id number] PRN PRN Reason: Saline Flush Last Infusion: 12/17/19 05:19 Dose: 0 mls/hr Documented by: Vancomycin HCl (Vancomycin) 1,000 mg in 200 mls @ 200 mls/hr IV Q12H [facility] Stop: 01/23/20 04:01 Last Infusion: 12/18/19 05:25 Dose: Infused Documented by: Ketoconazole (Nizoral) 1 applic TOPICAL BID [facility]; Protocol Last Admin: 12/18/19 06:19 Dose: Not Given Documented by: Nutritional Formula (Singh - [place] Flavor) [facility] Last Admin: 12/18/19 08:08 Dose: 1 packet Documented by: Oxycodone HCl (Oxyir) 10 mg PO Q4H PRN PRN PRN Reason: Pain Score 6-10/10 Last Admin: 12/18/19 06:06 Dose: 10 mg Documented by: Polyethylene Glycol (Miralax) 17 gm PO DAILY [facility] Last Admin: 12/18/19 06:05 Dose: Not Given Documented by: Senna/Docusate Sodium (Senokot-S, Shaahna-Colace) 2 tablet PO BID [facility] Last Admin: 12/18/19 06:05 Dose: Not Given Documented by: Sodium Chloride () 10 - 40 ml IV UD PRN PRN Reason: Open End PICC Flush Last Admin: 12/17/19 10:21 Dose: 20 ml Documented by: Sodium Chloride (0.9% Nacl (Sterile) Posiflush) 10 - 40 ml IV UD PRN PRN Reason: Port access or dressing change Last Admin: 12/18/19 05:44 Dose: 40 ml Documented by: Tramadol HCl (Ultram) 50 mg PO Q6H PRN PRN PRN Reason: Pain Score 4-5/10 Last Admin: 12/16/19 14:22 Dose: 50 mg Documented by: Tuberculin PPD (Tubersol, Aplisol, Ppd) 5 tu ID [id number] [facility] Stop: 12/23/19 10:01 Venlafaxine HCl (Effexor Xr) 37.5 mg PO DAILY [facility] Last Admin: 12/18/19 06:07 Dose: 37.5 mg Documented by: Medical Necessity - Tobacco Use Smoking Status: Never smoker Tobacco Use: Non-smoker Assessment/Plan All Active Problems Osteomyelitis of foot, right, acute (Acute) Cellulitis of foot, right (Acute) Type 2 diabetes mellitus with diabetic polyneuropathy (Acute) Debility (Acute) Open wound of right heel (Acute) Foot osteomyelitis, right (Acute) Venous ulcer of right lower extremity without varicose veins (Resolved) Varicose veins of right lower extremity with ulcer (Resolved) 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 He remains afebrile and vitals are stable. His wound VAC was removed today in order to evaluate his surgical site and wound. There are no local signs of infection noted he appears to be progressing from a wound healing standpoint. A dry gauze dressing was placed until the wound VAC can be reapplied today which is scheduled for this afternoon. I recommend continuation of up to 150 mmHg continuous. To continue strict offloading to the right lower extremity. Infectious disease is on consultation. He will complete an extended course of IV vancomycin and ertapenem with a stop date of 01-23-2020. The microbiology results of the calcaneus bone biopsy demonstrated Staphylococcus epidermidis and Propionibacterium acnes. The pathology results of the calcaneus bone biopsy was negative for acute osteomyelitis. Microbiology results for the post debridement and post irrigation wound demonstrated no additional bacterial growth. Healing capability is guarded given his poor circulation. He will continue to follow up with Dr. Navas in the out patient setting. Nutrition optimization was reviewed and encouraged to hammerer helper his healing process. The podiatry team will follow him weekly while in house. Please not hesitate to call if you have any questions. Jenniffer Good DPM, FACF[facility] [phone]
[2019-12-18] MEDS: 0.9% Saline Lock 10 ML Syringe IV ×2 (10:23→17:18)
[2019-12-18] MEDS: traMADol 50 MG Tablet PO (11:16)
[2019-12-18 14:59] VITALS: BP 137/66; PULSE 69; RESP 16; TEMP 36.8; O2SAT 96
[2019-12-18] MEDS: Senna/Docusate Sodium 1 Tablet 2 TABLET PO (17:06)
[2019-12-18] MEDS: Acetaminophen 500 MG Tablet 1000 MG PO (20:31)
[2019-12-18 21:22] VITALS: PULSE 67; RESP 16; O2SAT 93
[2019-12-19] MEDS: oxyCODONE 5 MG Tablet 10 MG PO ×5 (01:48→22:35)
[2019-12-19] MEDS: traMADol 50 MG Tablet PO (04:21)
[2019-12-19] MEDS: Vancomycin IV 1,000 MG/200 ML BAG 200 MG IV ×2 (04:25→16:49)
[2019-12-19] MEDS: 0.9% Saline Lock 10 ML Syringe IV ×2 (04:26→11:08)
[2019-12-19] MEDS: Venlafaxine XR 37.5 MG Capsule PO (05:42)
[2019-12-19] MEDS: Clopidogrel Bisulfate 75 MG Tablet PO (05:42)
[2019-12-19 05:54] VITALS: BP 126/64; PULSE 70; RESP 16; TEMP 36.9; O2SAT 96
[2019-12-19 06:25] LABS: Bedside Glucose 123 mg/dL (70-110)
[2019-12-19] MEDS: Aspirin 325 MG Tablet PO (08:18)
[2019-12-19 10:00] VITALS: PULSE 60; RESP 16; O2SAT 94
[2019-12-19 14:02] VITALS: BP 129/60; PULSE 55; RESP 16; TEMP 36.8; O2SAT 96
[2019-12-19 16:24] LABS: Vancomycin, Trough Level 20.6 ug/mL (5.0-15.0)
[2019-12-19] MEDS: Ketoconazole Cream 1 APPLIC TOPICAL (16:51)
[2019-12-19] MEDS: Senna/Docusate Sodium 1 Tablet 2 TABLET PO (16:52)
--- NOTE | 2019-12-19 16:55 | PCM.RX.CS ---
Consult Pharmacy has been consulted to manage selected antiobiotic: Vancomycin Type of Consult: Follow-up Suspected Infection: Osteomyelitis Labs: Sodium 139 mmol/L (136-145) 12/16/19 05:10 Potassium 3.7 mmol/L (3.5-5.1) 12/16/19 05:10 Chloride 105 mmol/L (98-107) 12/16/19 05:10 Carbon Dioxide 28.0 mmol/L (21.0-32.0) 12/16/19 05:10 Anion Gap 6 (5-15) 12/16/19 05:10 BUN 23 mg/dL (7-18) H 12/16/19 05:10 Creatinine 1.03 mg/dL (0.70-1.30) 12/16/19 05:10 Est GFR (MDRD) Af Amer 92 mL/min (>60) 12/16/19 05:10 Est GFR (MDRD) Non-Af 76 mL/min (>60) 12/16/19 05:10 BUN/Creatinine Ratio 22.3 RATIO (10-20) H 12/16/19 05:10 Glucose 141 mg/dL (74-106) H 12/16/19 05:10 Vancomycin Trough 20.6 ug/mL (5.0-15.0) H 12/19/19 15:35 Goal Trough: 15-20 mcg/mL Pharmacy Plan for Drug Dosing: VANCOMYCIN LEVEL RECEIVED Current Vancomycin Dose: 1000mg q12h (, 16) Number of Doses Received: 7 Vancomycin Level: 20.6 Hours Since Last Dose: ~11 Renal Function: 1.03 Renal Function Trend: stable Lab/Micro: Vancomycin Plan/Comments: reduce dose to 750mg q12h (per clinical pharmacology, est trough is 15) Pending Level: 12/21/19 @ 1536 Pharmacy Service will continue to monitor and adjust dosing as required. Follow-Up Labs: Trough Vancomycin - 12/21/19 @ 9978
[2019-12-20] MEDS: oxyCODONE 5 MG Tablet 10 MG PO ×4 (02:38→21:16)
[2019-12-20 03:47] VITALS: BP 115/54; PULSE 70; RESP 15; TEMP 36.9; O2SAT 94
[2019-12-20] MEDS: 0.9% Saline Lock 10 ML Syringe IV ×3 (03:53→16:12)
[2019-12-20] MEDS: traMADol 50 MG Tablet PO (05:00)
[2019-12-20] MEDS: Venlafaxine XR 37.5 MG Capsule PO (05:02)
[2019-12-20] MEDS: Clopidogrel Bisulfate 75 MG Tablet PO (05:03)
[2019-12-20] MEDS: DICLOFENAC SODIUM 100 GM GEL..GRAM. TP ×2 (05:05→16:14)
[2019-12-20 06:16] LABS: Bedside Glucose 99 mg/dL (70-110)
[2019-12-20] MEDS: Aspirin 325 MG Tablet PO (08:30)
[2019-12-20 14:19] VITALS: BP 111/71; PULSE 66; RESP 16; TEMP 37.2; O2SAT 97
[2019-12-20] MEDS: Ketoconazole Cream 1 APPLIC TOPICAL (17:28)
[2019-12-20] MEDS: Senna/Docusate Sodium 1 Tablet 2 TABLET PO (17:30)
[2019-12-20 21:17] VITALS: PULSE 62; RESP 16; O2SAT 97
--- NOTE | 2019-12-21 00:03 | NURSING ---
Patient yelling at this Nurse I told the other Nurses they should be bringing my Oxy every 4 hours. I should not have to ask for it. You Nurses should know how to do your job. Explained to Patient medication is PRN and that he needs to ask for it when needed. Patient then responded with, Then tell that doctor that works here I want my oxy every 4 hours scheduled and he better do it. Note already left from previous Nurse to Dr. Medina.
[2019-12-21] MEDS: oxyCODONE 5 MG Tablet 10 MG PO ×5 (02:07→20:50)
[2019-12-21] MEDS: Venlafaxine XR 37.5 MG Capsule PO (04:37)
[2019-12-21] MEDS: Clopidogrel Bisulfate 75 MG Tablet PO (04:37)
[2019-12-21] MEDS: traMADol 50 MG Tablet PO ×2 (04:40→14:37)
[2019-12-21] MEDS: 0.9% Saline Lock 10 ML Syringe IV (04:42)
[2019-12-21 04:44] VITALS: BP 122/66; PULSE 70; RESP 16; TEMP 37.2; O2SAT 97
[2019-12-21 06:31] LABS: Bedside Glucose 108 mg/dL (70-110)
[2019-12-21] MEDS: Aspirin 325 MG Tablet PO (08:06)
--- NOTE | 2019-12-21 13:14 | CASEMGMT ---
Brief interview for mental status (BIMS) and resident mood interview (PHQ-9) completed on this day. Jb PAN, MARIAM
[2019-12-21 13:49] VITALS: BP 124/60; PULSE 61; RESP 16; TEMP 35.9; O2SAT 98
--- NOTE | 2019-12-21 15:48 | NURSING ---
wound photo: right heel
[2019-12-21] MEDS: DICLOFENAC SODIUM 100 GM GEL..GRAM. TP (16:26)
[2019-12-21] MEDS: Ketoconazole Cream 1 APPLIC TOPICAL (16:26)
[2019-12-21 16:32] LABS: Vancomycin, Trough Level 15.3 ug/mL (5.0-15.0)
[2019-12-21] MEDS: Acetaminophen 500 MG Tablet 1000 MG PO (16:54)
--- NOTE | 2019-12-21 17:58 | PCM.RX.CS ---
Consult Pharmacy has been consulted to manage selected antiobiotic: Vancomycin Type of Consult: Follow-up Suspected Infection: Osteomyelitis Prior Doses of Antibiotics Received/Current Regimen: 3 DOSES OF 750MG - LAST DOSE 12/20 @ 1213 Labs: Sodium 139 mmol/L (136-145) 12/16/19 05:10 Potassium 3.7 mmol/L (3.5-5.1) 12/16/19 05:10 Chloride 105 mmol/L (98-107) 12/16/19 05:10 Carbon Dioxide 28.0 mmol/L (21.0-32.0) 12/16/19 05:10 Anion Gap 6 (5-15) 12/16/19 05:10 BUN 23 mg/dL (7-18) H 12/16/19 05:10 Creatinine 1.03 mg/dL (0.70-1.30) 12/16/19 05:10 Est GFR (MDRD) Af Amer 92 mL/min (>60) 12/16/19 05:10 Est GFR (MDRD) Non-Af 76 mL/min (>60) 12/16/19 05:10 BUN/Creatinine Ratio 22.3 RATIO (10-20) H 12/16/19 05:10 Glucose 141 mg/dL (74-106) H 12/16/19 05:10 Vancomycin Trough 15.3 ug/mL (5.0-15.0) H 12/21/19 15:35 Goal Trough: 15-20 mcg/mL Pharmacy Plan for Drug Dosing: VANCOMYCIN LEVEL RECEIVED Current Vancomycin Dose: 750MG Q12H Number of Doses Received: 3 (BEFORE LEVEL) Vancomycin Level: 15.3 MG/DL Hours Since Last Dose: ~11 Renal Function: NO NEW LEVEL Renal Function Trend: HAS BEEN STABLE Vancomycin Plan/Comments: CONTINUE SAME REGIMEN, WILL GET LEVEL IN 2 DAYS TO MAKE SURE IT DOESN'T DROP BELOW GOAL. A NEW SCR IS ALSO ORDERED FOR THAT DAY TO ASSESS RENAL FUNCTION. Pending Level: 12/23/19 @ 2953 Pharmacy Service will continue to monitor and adjust dosing as required.
--- NOTE | 2019-12-21 20:16 | PCA ---
Patient was resting in recliner still dressed. PROGRAMMING ENGINEER offered to help patient get changed for bed washed. Patient refused. PROGRAMMING ENGINEER expressed the importance of getting cleaned and that washing up might help him to feel better. Patient stated not tonight. Fresh ice water was offered and urinal emptied.
--- NOTE | 2019-12-22 01:49 | NURSING ---
during medpass pt stated to this nurse that if asleep do not wake for pain meds throughout the night. at midnight when next oxy ir was due pt was asleep, so pain med was not given. will continue to monitor, next dose will be at 0400. pt is resting peacefully at this time in chair.
[2019-12-22 04:00] VITALS: BP 138/67; PULSE 55; RESP 12; TEMP 36.6; O2SAT 95
[2019-12-22] MEDS: oxyCODONE 5 MG Tablet 10 MG PO ×5 (04:20→20:04)
[2019-12-22] MEDS: 0.9% Saline Lock 10 ML Syringe IV (04:23)
[2019-12-22] MEDS: Polyethylene Glycol 3350 17 GM PACKET PO (05:41)
[2019-12-22 06:16] LABS: Bedside Glucose 138 mg/dL (70-110)
[2019-12-22] MEDS: Venlafaxine XR 37.5 MG Capsule PO (06:55)
[2019-12-22] MEDS: Clopidogrel Bisulfate 75 MG Tablet PO (06:55)
[2019-12-22] MEDS: Aspirin 325 MG Tablet PO (09:24)
--- NOTE | 2019-12-22 13:04 | CASEMGMT ---
Social Work Met patient to follow up on psychosocial needs and discharge planning. Pt appeared down and unsure what to say, but reported he does not like to talk about his feelings. Pt is enjoying new room. Discussed pt's antidepressant and agreeable to increase dose. Pt's goal is to return home with after IV ATB with a stop date 01/22 and has wound vac. Offered continued visits. Will continue to follow. Gina Daniel, HUSBANDRY PERSON CLINIC SPECIALIST
[2019-12-22 14:09] VITALS: BP 126/69; PULSE 68; RESP 16; TEMP 35.8; O2SAT 97
[2019-12-22] MEDS: Senna/Docusate Sodium 1 Tablet 2 TABLET PO (16:29)
[2019-12-23] MEDS: oxyCODONE 5 MG Tablet 10 MG PO ×7 (00:06→23:52)
[2019-12-23] MEDS: 0.9% Saline Lock 10 ML Syringe IV ×2 (04:05→04:07)
[2019-12-23] MEDS: Venlafaxine XR 75 MG Capsule PO (05:33)
[2019-12-23] MEDS: Clopidogrel Bisulfate 75 MG Tablet PO (05:33)
[2019-12-23] MEDS: Senna/Docusate Sodium 1 Tablet 2 TABLET PO ×2 (05:34→17:05)
[2019-12-23] MEDS: Ketoconazole Cream 1 APPLIC TOPICAL (05:35)
[2019-12-23 05:40] VITALS: BP 120/64; PULSE 53; RESP 18; TEMP 36.6; O2SAT 96
[2019-12-23 05:51] LABS: Basophil# 0.07 X10^3/uL; Basophil% 1.6 % (0-1); Eosinophil# 0.15 X10^3/uL; Eosinophils% 3.5 % (0-5); Hematocrit 39.3 % (40-54); Hemoglobin 12.3 g/dL (13.0-16.5); Lymphocyte % 35.2 % (19-41); Mean Corp Hgb Conc 31.3 g/dL (32-36); Mean Corpuscular Hgb 31.5 pg (27.0-32.0); Mean Corpuscular Volume 100.5 fL (80-94); Mean Platelet Vol. 9.4 fl (6.2-12.0); Monocyte# 0.48 X10^3/uL; Monocyte% 11.3 % (0-10); NRBC Flagged by Analyzer 0 % (0-5); Neutrophil # 2.04 X10^3/uL (2.7-7.7); Neutrophil % 47.9 % (47-70); Platelet Count 199 K/mm3 (150-450); RBC Distribution Width CV 13.6 % (11.6-14.6); RBC Distribution Width SD 50.2 fl (35.1-43.9); Red Blood Count 3.91 M/mm3 (4.6-6.2); White Blood Count 4.3 K/mm3 (4.4-11.0)
[2019-12-23 06:25] LABS: Bedside Glucose 133 mg/dL (70-110)
[2019-12-23 06:37] LABS: Anion Gap 5 (5-15); BUN 30 mg/dL (7-18); BUN/Creat Ratio 33.1 RATIO (10-20); Calcium,Total 7.9 mg/dL (8.5-10.1); Chloride 109 mmol/L (98-107); Creatinine, Serum 0.91 mg/dL (0.70-1.30); EST Glomerular Filtration Rate 88 mL/min (>60); Est Glom Filt Rate - Afr Amer 106 mL/min (>60); Estimated Creatinine Clearance 74.12 ml/min; Glucose 102 mg/dL (74-106); Potassium 4.3 mmol/L (3.5-5.1); Sodium Level 136 mmol/L (136-145)
[2019-12-23 06:44] LABS: Erythrocyte Sedimentation Rate 23 mm/hr (0-20)
[2019-12-23] MEDS: Aspirin 325 MG Tablet PO (08:55)
--- NOTE | 2019-12-23 10:34 | CASEMGMT ---
Social Work IDT met with patient and via conference call for care plan meeting. Discussed patient's progress in therapy. Pt is transferring from chair to knee scooter at min assist, ambulating 40 ft in room with knee scooter at CGA, completed 4 reps on box step in room with FWW for UE and used right forefoot to touch the floor for slight support; although painful. Pt is CGA for SPT to toilet from chair using grab bars, min assist for LE dressing, SBA for UE dressing, set up for simple grooming on knee scooter, sup. for UE bathing at bed level - cannot complete full shower currently. 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 Pt is receiving Singh, on 1800 calorie diet, good intake and will monitor weight. Pt has wound vac and two IV ATB until 01/22. Physician increased Effexor for mood. Explained Medicare benefit. Offered continued visits with pt. Will continue to follow. Gina Daniel, MAXIM SURGICAL COORDINATOR
[2019-12-23] MEDS: Tuberculin,Purif.prot.deriv. 50 TU/ML Vial 5 ML ID (10:50)
[2019-12-23 14:40] VITALS: BP 115/57; PULSE 59; RESP 15; TEMP 36.5; O2SAT 98
[2019-12-23 16:36] LABS: Vancomycin, Trough Level 16.4 ug/mL (5.0-15.0)
--- NOTE | 2019-12-23 17:55 | PCM.RX.CS ---
Consult Pharmacy has been consulted to manage selected antiobiotic: Vancomycin Type of Consult: Follow-up Suspected Infection: Osteomyelitis Labs: Sodium 136 mmol/L (136-145) 12/23/19 05:10 Potassium 4.3 mmol/L (3.5-5.1) 12/23/19 05:10 Chloride 109 mmol/L (98-107) H 12/23/19 05:10 Carbon Dioxide 22.0 mmol/L (21.0-32.0) 12/23/19 05:10 Anion Gap 5 (5-15) 12/23/19 05:10 BUN 30 mg/dL (7-18) H 12/23/19 05:10 Creatinine 0.91 mg/dL (0.70-1.30) 12/23/19 05:10 Est GFR (MDRD) Af Amer 106 mL/min (>60) 12/23/19 05:10 Est GFR (MDRD) Non-Af 88 mL/min (>60) 12/23/19 05:10 BUN/Creatinine Ratio 33.1 RATIO (10-20) H 12/23/19 05:10 Glucose 102 mg/dL (74-106) 12/23/19 05:10 Vancomycin Trough 16.4 ug/mL (5.0-15.0) H 12/23/19 15:40 Goal Trough: 15-20 mcg/mL Pharmacy Plan for Drug Dosing: VANCOMYCIN LEVEL RECEIVED Current Vancomycin Dose: 750mg IV Q12hr Number of Doses Received: 8 Vancomycin Level: 16.4 Hours Since Last Dose: ~11.5 hr Renal Function: 0.91 Renal Function Trend: slight improvement Lab/Micro: no new Vancomycin Plan/Comments: Trough within therapeutic goal range of 15-20. This is the patient's second time being within goal range. With this in mind, will plan on drawing a trough in 4 days; rather than 2 days. Continue current vancomycin dose. Pending Level: 12/27/19 @9118 Pharmacy Service will continue to monitor and adjust dosing as required.
--- NOTE | 2019-12-23 21:23 | PCA ---
pt refused to do any PM care and would not changed out of his clothes.
[2019-12-24] MEDS: Ketoconazole Cream 1 APPLIC TOPICAL ×2 (04:17→15:38)
[2019-12-24] MEDS: oxyCODONE 5 MG Tablet 10 MG PO ×5 (04:17→19:55)
[2019-12-24] MEDS: Clopidogrel Bisulfate 75 MG Tablet PO (04:18)
[2019-12-24] MEDS: Venlafaxine XR 75 MG Capsule PO (04:18)
[2019-12-24] MEDS: Senna/Docusate Sodium 1 Tablet 2 TABLET PO ×2 (04:18→16:04)
[2019-12-24] MEDS: 0.9% Saline Lock 10 ML Syringe IV ×5 (04:21→17:15)
[2019-12-24 04:31] VITALS: BP 145/79; PULSE 54; RESP 16; TEMP 36.4; O2SAT 95
[2019-12-24 06:21] LABS: Bedside Glucose 104 mg/dL (70-110)
[2019-12-24] MEDS: Aspirin 325 MG Tablet PO (08:06)
[2019-12-24 14:25] VITALS: BP 142/69; PULSE 73; RESP 20; TEMP 36.4; O2SAT 96
[2019-12-25] MEDS: oxyCODONE 5 MG Tablet 10 MG PO ×5 (01:28→21:09)
[2019-12-25] MEDS: Alteplase 2 MG/2 ML Vial IV (01:33)
--- NOTE | 2019-12-25 01:35 | NURSING ---
PICC LINE FLUSHED WELL WITH GOOD BLOOD RETURN RED LUMEN, NO BLOOD RETURN PURPLE LUMEN , CATH FLOW USED IN PURPLE LUMEN
[2019-12-25 04:00] VITALS: BP 139/74; PULSE 58; RESP 14; TEMP 36.6; O2SAT 97
[2019-12-25] MEDS: 0.9% Saline Lock 10 ML Syringe IV ×4 (04:25→15:59)
[2019-12-25 06:31] LABS: Bedside Glucose 115 mg/dL (70-110)
[2019-12-25] MEDS: Venlafaxine XR 75 MG Capsule PO (07:00)
[2019-12-25] MEDS: Senna/Docusate Sodium 1 Tablet 2 TABLET PO ×2 (07:00→17:10)
[2019-12-25] MEDS: Clopidogrel Bisulfate 75 MG Tablet PO (07:00)
--- NOTE | 2019-12-25 07:19 | MDS.RN ---
Information for the mds was obtained from review of the clinical record, interview of resident, staff, and direct observation of resident's care.
[2019-12-25] MEDS: Aspirin 325 MG Tablet PO (07:36)
--- NOTE | 2019-12-25 08:01 | PCM.PROGNOTE ---
Patient Problems: Active and Suspected Problems Debility (Acute) Open wound of right heel (Acute) Foot osteomyelitis, right (Acute) Subjective: Patient resting in chair, no complaints. No complaints of f/c/n/v. - Physical Exam Vitals/I&O's: Vital Signs Temp Pulse Resp BP Pulse Ox 97.8 F 58 L 14 139/74 H 97 12/25/19 04:00 12/25/19 04:00 12/25/19 04:00 12/25/19 04:00 12/25/19 04:00 Oxygen Flow Rate (L/min) 96 Oxygen Delivery Method Room Air Weight: 79.01 kg Body Mass Index (BMI) 25.2 Intake and Output for Last 24 Hours 12/23/19 12/24/19 12/25/19 23:59 23:59 23:59 Intake Total 1540 / 1540 1520 / 1520 465 / 465 Output Total 400 / 400 Balance 1140 / 1140 1520 / 1520 465 / 465 General: Alert, Oriented x3, Cooperative, No apparent distress Extremities: Capillary Refill Less than 3 Seconds, No Calf Tenderness, - - Right foot: ulcer posterior plantar heel measures 1.5cm x 1.8cm with more granular tissue, appears to be filling in, probes to bone, margins viable, no cellulitis, no necrosis, no maloder, no drainage, no evidence of acute ischemia to the foot. Small superficial abrasion to proximal anterior leg healthy and viable, no evidence of infection - he relates he bumped his leg. Laboratory Results 12/25/19 06:08: POC Glucose 115 H Current Medications Acetaminophen (Tylenol) 1,000 mg PO Q6H PRN PRN PRN Reason: Pain Score 1-3/10 Last Admin: 12/21/19 16:54 Dose: 1,000 mg Documented by: Al Hydroxide/Mg Hydroxide (Mylanta Ii) 30 ml PO Q6H PRN PRN PRN Reason: Gastric Burning [facility]) [facility] Last Admin: 12/25/19 07:36 Dose: 325 mg Documented by: Bisacodyl (Dulcolax) 10 mg RECTAL DAILY PRN PRN Reason: Constipation Cholecalciferol (Vitamin D (25mcg)) 5,000 unit PO DAILY [facility] Last Admin: 12/25/19 07:01 Dose: 5,000 unit Documented by: Clopidogrel Bisulfate (Plavix) 75 mg PO DAILY [facility] Last Admin: 12/25/19 07:00 Dose: 75 mg Documented by: Diclofenac Sodium (Voltaren) 0 gm TP 4X/DAY PRN PRN PRN Reason: MUSCLE ACHES Last Admin: 12/21/19 16:26 Dose: 100 gm Documented by: Glucagon () 1 mg IM .X1 PRN PRN Reason: Hypoglycemia Heparin Sodium (Beef Lung) () 50 units IV UD PRN PRN Reason: PICC Line Heparin Flush Last Admin: 12/24/19 17:15 Dose: 50 units Documented by: Ertapenem 1 gm/ Sodium (Chloride) 50 mls @ 100 mls/hr IV Q24 [facility] Stop: 01/23/20 23:59 Last Infusion: 12/24/19 11:38 Dose: Infused Documented by: Vancomycin IV Pharmacy to Dose (1 ea/ Sodium Chloride) 250 mls @ 1 mls/hr IV PRN PRN Sodium Chloride () 250 mls @ 15 mls/hr IV .[id number] PRN PRN Reason: Saline Flush Last Infusion: 12/24/19 05:52 Dose: Infused Documented by: Vancomycin HCl 750 mg/ Sodium (Chloride) 265 mls @ 250 mls/hr IV Q12H [facility] Last Infusion: 12/25/19 05:42 Dose: Infused Documented by: Ketoconazole (Nizoral) 1 applic TOPICAL BID [facility]; Protocol Last Admin: 12/25/19 07:00 Dose: Not Given Documented by: Nutritional Formula (Singh - [place] Flavor) 1 packet PO BIDCM [facility] Last Admin: 12/25/19 07:36 Dose: 1 packet Documented by: Oxycodone HCl (Oxyir) 10 mg PO Q4H [facility] Last Admin: 12/25/19 07:38 Dose: 10 mg Documented by: Polyethylene Glycol (Miralax) 17 gm PO DAILY [facility] Last Admin: 12/25/19 07:00 Dose: Not Given Documented by: Senna/Docusate Sodium (Senokot-S, Shahana-Colace) 2 tablet PO BID [facility] Last Admin: 12/25/19 07:00 Dose: 2 tablet Documented by: Sodium Chloride () 10 - 40 ml IV UD PRN PRN Reason: Open End PICC Flush Last Admin: 12/25/19 04:25 Dose: 30 ml Documented by: Sodium Chloride (0.9% Nacl (Sterile) Posiflush) 10 - 40 ml IV UD PRN PRN Reason: Port access or dressing change Last Admin: 12/18/19 05:44 Dose: 40 ml Documented by: Tramadol HCl (Ultram) 50 mg PO Q6H PRN PRN PRN Reason: Pain Score 4-5/10 Last Admin: 12/21/19 14:37 Dose: 50 mg Documented by: Venlafaxine HCl (Effexor Xr) 75 mg PO DAILY [facility] Last Admin: 12/25/19 07:00 Dose: 75 mg Documented by: Medical Necessity - Tobacco Use Smoking Status: Never smoker Tobacco Use: Non-smoker Assessment/Plan All Active Problems Osteomyelitis of foot, right, acute (Acute) Cellulitis of foot, right (Acute) Type 2 diabetes mellitus with diabetic polyneuropathy (Acute) Debility (Acute) Open wound of right heel (Acute) Foot osteomyelitis, right (Acute) Venous ulcer of right lower extremity without varicose veins (Resolved) Varicose veins of right lower extremity with ulcer (Resolved) Chronic nonhealing ulcer right heel with deep tissue exposed, Osteomyelitis right calcaneus s/p debridement and bone biopsy on 12/12/2019 Abrasion right leg Peripheral vascular disease Diabetes Noted improvement to heel. There are no local signs of infection noted he appears to be progressing from a wound healing standpoint. A wet to dry gauze dressing via gauze normal saline soln was placed until the wound VAC can be reapplied today. Applied gauze dressing to abrasion. To continue strict offloading to the right lower extremity. Infectious disease is on consultation. He will complete an extended course of IV vancomycin and ertapenem with a stop date of 01-23-2020. The microbiology results of the calcaneus bone biopsy demonstrated Staphylococcus epidermidis and Propionibacterium acnes. The pathology results of the calcaneus bone biopsy was negative for acute osteomyelitis. Microbiology results for the post debridement and post irrigation wound demonstrated no additional bacterial growth. Healing capability is guarded given his poor circulation. He will continue to follow up with Dr. Navas in the out patient setting. Nutrition optimization was reviewed and encouraged to grid casting machine operator helper his healing process. The podiatry team will follow him weekly while in house. Please not hesitate to call if you have any questions.
[2019-12-25] MEDS: traMADol 50 MG Tablet PO (09:18)
--- NOTE | 2019-12-25 10:51 | NURSING ---
wound photo: right heel
--- NOTE | 2019-12-25 14:14 | CASEMGMT ---
Social Work Pt requested to speak with SW to discuss feelings. Spoke with pt at length about past memories, trauma, coping skills, life goals, issues. Attempted to assist pt with framing mindset, shifting to a positive outlook and attitude. Attempting to reincorporate favorite past times. Pt remained with sad or flat affect. Pt discussed the multiple medical hurdles he is going through that make it difficult to be positive. Pt expressed feelings of discouragement. Provided ongoing emotional support, active/supportive listening, validated feelings and verbal support. Pt expressed he has financial concerns with having hardly enough money to get by each month. Discussed Maslow's Hierarchy of Needs. Offered to assist with Medicaid or other financial assistance programs. Pt agreeable to SW discussing those resources with . Left message with . Will continue to follow. Pt expressed appreciation of SW visit and assistance. Gina Daniel, MAXIM CO CHAIRMAN
[2019-12-25 14:17] VITALS: BP 145/60; PULSE 58; RESP 15; TEMP 37.1; O2SAT 95
[2019-12-26 04:00] VITALS: BP 149/73; PULSE 57; RESP 12; TEMP 36.4; O2SAT 97
[2019-12-26] MEDS: traMADol 50 MG Tablet PO (05:55)
[2019-12-26] MEDS: Venlafaxine XR 75 MG Capsule PO (05:56)
[2019-12-26] MEDS: Clopidogrel Bisulfate 75 MG Tablet PO (05:56)
[2019-12-26 06:21] LABS: Bedside Glucose 109 mg/dL (70-110)
[2019-12-26] MEDS: Aspirin 325 MG Tablet PO (09:00)
[2019-12-26] MEDS: oxyCODONE 5 MG Tablet 10 MG PO ×4 (09:01→22:09)
[2019-12-26 14:36] VITALS: BP 127/67; PULSE 59; RESP 17; TEMP 36.7; O2SAT 95
[2019-12-26] MEDS: Senna/Docusate Sodium 1 Tablet 2 TABLET PO (17:02)
[2019-12-26 22:10] VITALS: PULSE 78; RESP 16; O2SAT 98
--- NOTE | 2019-12-26 23:20 | PCA ---
this nursing unit coordinator want in to see if pt. would like to wash up and change for bed this evening.Pt refused to do any pm care. emptied urinal and gave fresh ice water.
[2019-12-27 04:00] VITALS: BP 132/78; PULSE 64; RESP 16; TEMP 36.6; O2SAT 94
[2019-12-27] MEDS: oxyCODONE 5 MG Tablet 10 MG PO ×5 (04:02→20:39)
[2019-12-27] MEDS: Venlafaxine XR 75 MG Capsule PO (04:03)
[2019-12-27] MEDS: Senna/Docusate Sodium 1 Tablet 2 TABLET PO ×2 (04:03→17:19)
[2019-12-27] MEDS: Clopidogrel Bisulfate 75 MG Tablet PO (04:04)
[2019-12-27] MEDS: 0.9% Saline Lock 10 ML Syringe IV ×4 (04:14→18:38)
[2019-12-27 06:30] LABS: Bedside Glucose 97 mg/dL (70-110)
[2019-12-27] MEDS: Aspirin 325 MG Tablet PO (09:24)
[2019-12-27 10:00] VITALS: PULSE 68; RESP 16; O2SAT 97
--- NOTE | 2019-12-27 10:53 | NURSING ---
Pt talks with family regulary on cell phone. Denies need for family to be updated.
[2019-12-27 14:33] VITALS: BP 146/119; PULSE 60; RESP 18; TEMP 36.8; O2SAT 92
[2019-12-27 16:40] LABS: Vancomycin, Trough Level 15.1 ug/mL (5.0-15.0)
[2019-12-27 16:42] LABS: Creatinine, Serum 1.15 mg/dL (0.70-1.30); EST Glomerular Filtration Rate 67 mL/min (>60); Est Glom Filt Rate - Afr Amer 81 mL/min (>60); Estimated Creatinine Clearance 58.65 ml/min
--- NOTE | 2019-12-27 17:01 | PCM.RX.CS ---
Consult Pharmacy has been consulted to manage selected antiobiotic: Vancomycin Type of Consult: Follow-up Suspected Infection: Osteomyelitis Labs: Sodium 136 mmol/L (136-145) 12/23/19 05:10 Potassium 4.3 mmol/L (3.5-5.1) 12/23/19 05:10 Chloride 109 mmol/L (98-107) H 12/23/19 05:10 Carbon Dioxide 22.0 mmol/L (21.0-32.0) 12/23/19 05:10 Anion Gap 5 (5-15) 12/23/19 05:10 BUN 30 mg/dL (7-18) H 12/23/19 05:10 Creatinine 1.15 mg/dL (0.70-1.30) 12/27/19 15:55 Est GFR (MDRD) Af Amer 81 mL/min (>60) 12/27/19 15:55 Est GFR (MDRD) Non-Af 67 mL/min (>60) 12/27/19 15:55 BUN/Creatinine Ratio 33.1 RATIO (10-20) H 12/23/19 05:10 Glucose 102 mg/dL (74-106) 12/23/19 05:10 Vancomycin Trough 15.1 ug/mL (5.0-15.0) H 12/27/19 15:55 Estimated Creatinine Clearance: 58 ML/MIN Goal Trough: 15-20 mcg/mL Pharmacy Plan for Drug Dosing: VANCOMYCIN LEVEL RECEIVED Current Vancomycin Dose: 750MG Q12 Number of Doses Received:16 Vancomycin Level: 15.1 MG/DL Hours Since Last Dose: ~12 Renal Function: 1.15 (CRCL 58ML/MIN) Renal Function Trend: STABLE Vancomycin Plan/Comments: CONTINUE CURRENT REGIMEN Pharmacy Service will continue to monitor and adjust dosing as required. Labs to be done on [date and time ordered]: 12/31/19 @ 0815
[2019-12-28] MEDS: oxyCODONE 5 MG Tablet 10 MG PO ×5 (03:31→20:30)
[2019-12-28] MEDS: Senna/Docusate Sodium 1 Tablet 2 TABLET PO ×2 (03:32→16:18)
[2019-12-28] MEDS: Clopidogrel Bisulfate 75 MG Tablet PO (03:33)
[2019-12-28] MEDS: Venlafaxine XR 75 MG Capsule PO (03:33)
[2019-12-28] MEDS: 0.9% Saline Lock 10 ML Syringe IV ×3 (03:38→16:14)
[2019-12-28 03:47] VITALS: BP 134/75; PULSE 74; RESP 18; TEMP 36.9; O2SAT 97
[2019-12-28 06:31] LABS: Bedside Glucose 110 mg/dL (70-110)
[2019-12-28] MEDS: Aspirin 325 MG Tablet PO (09:06)
[2019-12-28 14:17] VITALS: BP 123/68; PULSE 74; RESP 16; TEMP 36.7; O2SAT 94
--- NOTE | 2019-12-28 14:29 | NURSING ---
wound photo: right heel
--- NOTE | 2019-12-28 15:22 | NURSING ---
PT STATED THIS NURSE DID NOT NEED TO CALL FAMILY. PT STATED HE TALKS TO HIS EVERY DAY.
--- NOTE | 2019-12-28 16:07 | CHAPLAIN ---
Type of Pastoral Visit ___ Initial Visit _x__ Follow-up Visit ___ On-call Visit ___ General Patient Visit ___ Spiritual Assessment ___ Family Conference ___ Bereavement ___ Rapid Response ___ Code Blue ___ Other (describe below) Pastoral Care Referral From _x__ Patient ___ Family ___ Nurse ___ Physician ___ Clinical Coordinator ___ Small Engine Trainer ___ Other (describe below) Sacrament/Intervention _x__ Active listening ___ Anointing ___ Denominational ___ Bereavement ___ Communion ___ Ramona exploration ___ _x__ Life review _x__ Prayer ___ Reconciliation ___ Sacrament of Sick _x__ Supportive presence ___ Wedding ___ Other (describe below) Pastoral Comments time spent sitting and listening to patient; pt having difficulty waiting on the healing and focusing; pt talked mostly about family today; pt welcomed presence and prayer
[2019-12-28] MEDS: Ketoconazole Cream 1 APPLIC TOPICAL (16:18)
[2019-12-28 20:35] VITALS: PULSE 72; RESP 16; O2SAT 97
--- NOTE | 2019-12-29 02:07 | PCA ---
This facility designer went in to ask pt if he wanted to get washed up and get his pjs on and pt refused to get washed up and put pjs on. Got him fresh ice water and a ice cream.
[2019-12-29 03:18] VITALS: BP 129/59; PULSE 57; RESP 16; TEMP 36.6; O2SAT 97
[2019-12-29] MEDS: oxyCODONE 5 MG Tablet 10 MG PO ×5 (03:24→20:47)
[2019-12-29] MEDS: Senna/Docusate Sodium 1 Tablet 2 TABLET PO ×2 (03:25→17:24)
[2019-12-29] MEDS: Clopidogrel Bisulfate 75 MG Tablet PO (03:26)
[2019-12-29] MEDS: Venlafaxine XR 75 MG Capsule PO (03:27)
[2019-12-29] MEDS: 0.9% Saline Lock 10 ML Syringe IV ×3 (03:34→16:51)
[2019-12-29 06:31] LABS: Bedside Glucose 97 mg/dL (70-110)
[2019-12-29] MEDS: Aspirin 325 MG Tablet PO (08:08)
[2019-12-29 10:50] VITALS: PULSE 80; RESP 18; O2SAT 96
--- NOTE | 2019-12-29 11:54 | NURSING ---
Pt stated he talks to every day and up dates her.
[2019-12-29 15:36] VITALS: BP 152/94; PULSE 64; RESP 17; TEMP 36.8; O2SAT 98
[2019-12-29] MEDS: Ketoconazole Cream 1 APPLIC TOPICAL (17:26)
--- NOTE | 2019-12-29 22:25 | PCA ---
pt refused to wash and change clothes this evening.Film Process Operator got fresh water and emptied urinal
[2019-12-30] MEDS: Clopidogrel Bisulfate 75 MG Tablet PO (04:21)
[2019-12-30] MEDS: 0.9% Saline Lock 10 ML Syringe IV (04:22)
[2019-12-30] MEDS: oxyCODONE 5 MG Tablet 10 MG PO ×5 (04:22→20:29)
[2019-12-30] MEDS: Senna/Docusate Sodium 1 Tablet 2 TABLET PO ×2 (04:22→17:39)
[2019-12-30] MEDS: Venlafaxine XR 75 MG Capsule PO (04:22)
[2019-12-30 04:38] VITALS: BP 144/66; PULSE 51; RESP 16; TEMP 36.9; O2SAT 95
[2019-12-30 05:51] LABS: Absolute Lymphocyte Count 1.24 X10^3/uL (0.83-4.51); Absolute Neutrophil Count 2.7 X10^3/uL (2.0-7.7); Basophil# 0.08 X10^3/uL; Basophil% 1.7 % (0-1); Eosinophil# 0.22 X10^3/uL; Eosinophils% 4.5 % (0-5); Hematocrit 39.2 % (40-54); Hemoglobin 12.6 g/dL (13.0-16.5); Lymphocyte # 1.24 X10^3/ul (4.0); Lymphocyte % 25.6 % (19-41); Mean Corp Hgb Conc 32.1 g/dL (32-36); Mean Corpuscular Hgb 31.9 pg (27.0-32.0); Mean Corpuscular Volume 99.2 fL (80-94); Mean Platelet Vol. 10.1 fl (6.2-12.0); Monocyte# 0.56 X10^3/uL; Monocyte% 11.6 % (0-10); NRBC Flagged by Analyzer 0 % (0-5); Neutrophil # 2.73 X10^3/uL (2.7-7.7); Neutrophil % 56.4 % (47-70); Platelet Count 123 K/mm3 (150-450); RBC Distribution Width CV 13.5 % (11.6-14.6); RBC Distribution Width SD 49.5 fl (35.1-43.9); Red Blood Count 3.95 M/mm3 (4.6-6.2); White Blood Count 4.8 K/mm3 (4.4-11.0)
[2019-12-30 06:13] LABS: Anion Gap 5 (5-15); BUN 30 mg/dL (7-18); BUN/Creat Ratio 30.2 RATIO (10-20); Calcium,Total 8.3 mg/dL (8.5-10.1); Chloride 111 mmol/L (98-107); Creatinine, Serum 0.99 mg/dL (0.70-1.30); EST Glomerular Filtration Rate 79 mL/min (>60); Est Glom Filt Rate - Afr Amer 96 mL/min (>60); Estimated Creatinine Clearance 68.13 ml/min; Glucose 98 mg/dL (74-106); Potassium 4.2 mmol/L (3.5-5.1); Sodium Level 137 mmol/L (136-145)
[2019-12-30 06:26] LABS: Bedside Glucose 95 mg/dL (70-110)
[2019-12-30 07:22] LABS: Erythrocyte Sedimentation Rate 22 mm/hr (0-20)
[2019-12-30] MEDS: Aspirin 325 MG Tablet PO (09:23)
[2019-12-30 15:36] VITALS: BP 147/74; PULSE 72; RESP 16; TEMP 37.3; O2SAT 97
[2019-12-30 20:31] VITALS: PULSE 77; RESP 16; O2SAT 97
[2019-12-31 04:00] VITALS: BP 129/48; PULSE 54; RESP 17; TEMP 36.9; O2SAT 95
[2019-12-31] MEDS: oxyCODONE 5 MG Tablet 10 MG PO ×5 (05:22→21:02)
[2019-12-31] MEDS: Clopidogrel Bisulfate 75 MG Tablet PO (05:23)
[2019-12-31] MEDS: Venlafaxine XR 75 MG Capsule PO (05:23)
[2019-12-31] MEDS: Senna/Docusate Sodium 1 Tablet 2 TABLET PO (05:23)
[2019-12-31] MEDS: 0.9% Saline Lock 10 ML Syringe IV ×3 (05:29→17:12)
[2019-12-31 06:20] LABS: Bedside Glucose 107 mg/dL (70-110)
[2019-12-31] MEDS: Aspirin 325 MG Tablet PO (08:19)
[2019-12-31 15:15] VITALS: BP 136/64; PULSE 60; RESP 20; TEMP 36.5; O2SAT 98
[2019-12-31 16:25] LABS: Vancomycin, Trough Level 16.4 ug/mL (5.0-15.0)
[2019-12-31] MEDS: Ketoconazole Cream 1 APPLIC TOPICAL (17:17)
--- NOTE | 2019-12-31 18:16 | PCM.RX.CS ---
Consult Pharmacy has been consulted to manage selected antiobiotic: Vancomycin Type of Consult: Follow-up Prior Doses of Antibiotics Received/Current Regimen: Medications Vancomycin HCl 750 mg/ Sodium (Chloride) 265 mls @ 250 mls/hr IV Q12H [facility] Last Admin: 12/31/19 17:15 Dose: 250 mls/hr Documented by: Labs: Sodium 137 mmol/L (136-145) 12/30/19 05:10 Potassium 4.2 mmol/L (3.5-5.1) 12/30/19 05:10 Chloride 111 mmol/L (98-107) H 12/30/19 05:10 Carbon Dioxide 21.0 mmol/L (21.0-32.0) 12/30/19 05:10 Anion Gap 5 (5-15) 12/30/19 05:10 BUN 30 mg/dL (7-18) H 12/30/19 05:10 Creatinine 0.99 mg/dL (0.70-1.30) 12/30/19 05:10 Est GFR (MDRD) Af Amer 96 mL/min (>60) 12/30/19 05:10 Est GFR (MDRD) Non-Af 79 mL/min (>60) 12/30/19 05:10 BUN/Creatinine Ratio 30.2 RATIO (10-20) H 12/30/19 05:10 Glucose 98 mg/dL (74-106) 12/30/19 05:10 Vancomycin Trough 16.4 ug/mL (5.0-15.0) H 12/31/19 15:50 Weight used for dosin kg Goal Trough: 15-20 mcg/mL Pharmacy Plan for Drug Dosing: Trough in goal range. Recheck trough in 1 week. Pharmacy Service will continue to monitor and adjust dosing as required. Follow-Up Labs: Trough Vancomycin - 01/06 @ 1530
[2020-01-01] MEDS: oxyCODONE 5 MG Tablet 10 MG PO ×5 (03:46→20:57)
[2020-01-01 04:00] VITALS: BP 128/65; PULSE 52; RESP 12; TEMP 36.6; O2SAT 95
[2020-01-01] MEDS: Venlafaxine XR 75 MG Capsule PO (05:16)
[2020-01-01] MEDS: Clopidogrel Bisulfate 75 MG Tablet PO (05:16)
[2020-01-01 06:30] LABS: Bedside Glucose 125 mg/dL (70-110)
--- NOTE | 2020-01-01 07:02 | PN_ITS ---
Patient Problems: Active and Suspected Problems Debility (Acute) Open wound of right heel (Acute) Foot osteomyelitis, right (Acute) Subjective: This 69-year-old male was seen bedside for right plantar heel ulcer with previous bone biopsy performed approximately 3 weeks ago. He denies fever, chill, nausea, vomiting. He still has continued pain to the right lower extremity and this is consistent with prior visits. He is residing in the transitional care unit at this time he has been working with physical therapy and receiving IV antibiotics for treatment of presumed osteomyelitis. - Physical Exam Vitals/I&O's: Vital Signs Temp Pulse Resp BP Pulse Ox 97.8 F 52 L 12 128/65 H 95 01/01/20 04:00 01/01/20 04:00 01/01/20 04:00 01/01/20 04:00 01/01/20 04:00 Oxygen Flow Rate (L/min) 96 Oxygen Delivery Method Room Air Weight: 80.824 kg Body Mass Index (BMI) 25.2 Intake and Output for Last 24 Hours 12/30/19 12/31/19 01/01/20 23:59 23:59 23:59 Intake Total 1209.67 / 1209.67 1613.33 / 1613.33 265 / 265 Balance 1209.67 / 1209.67 1613.33 / 1613.33 265 / 265 General: Alert, Oriented x3, Cooperative Extremities: Capillary Refill Less than 3 Seconds, Diminished Peripheral Pulses, Edema - Scant right foot Skin: Ulcer/ Wound - There is a full-thickness skin discontinuity to the plantar left heel which measures 1.8 x 1.1 cm with reduced depth of approximately 0.4. The base is pale granular with minimal peripheral moisture. There is no callus, eschar, necrosis. There is no purulence on expression, odor, erythema, or streaking. This is demonstrating improvement. The adjacent skin is hairless and atrophic. The suture is intact to this adjacent site and there is no gapping at the biopsy site Musculoskeletal: No Tenderness to Palpation of Joints or Extremities, Muscle Wasting Neurological: Sensory exam intact to light touch and pain Psych/Mental Status: Normal Affect, Appropriate Laboratory Results 12/31/19 15:50: Vancomycin Trough 16.4 H 01/01/20 06:10: POC Glucose 125 H Current Medications Acetaminophen (Tylenol) 1,000 mg PO Q6H PRN PRN PRN Reason: Pain Score 1-3/10 Last Admin: 12/21/19 16:54 Dose: 1,000 mg Documented by: Al Hydroxide/Mg Hydroxide (Mylanta Ii) 30 ml PO Q6H PRN PRN PRN Reason: Gastric Burning Aspirin (Aspirin) 325 mg PO DAILYCM [facility] Last Admin: 12/31/19 08:19 Dose: 325 mg Documented by: Bisacodyl (Dulcolax) 10 mg RECTAL DAILY PRN PRN Reason: Constipation Cholecalciferol (Vitamin D (25mcg)) 5,000 unit PO DAILY [facility] Last Admin: 01/01/20 05:15 Dose: 5,000 unit Documented by: Clopidogrel Bisulfate (Plavix) 75 mg PO DAILY [facility] Last Admin: 01/01/20 05:16 Dose: 75 mg Documented by: Diclofenac Sodium (Voltaren) 0 gm TP 4X/DAY PRN PRN PRN Reason: MUSCLE ACHES Last Admin: 12/21/19 16:26 Dose: 100 gm Documented by: Glucagon () 1 mg IM .X1 PRN PRN Reason: Hypoglycemia Heparin Sodium (Beef Lung) () 50 units IV UD PRN PRN Reason: PICC Line Heparin Flush Last Admin: 12/24/19 17:15 Dose: 50 units Documented by: Ertapenem 1 gm/ Sodium (Chloride) 50 mls @ 100 mls/hr IV Q24 [facility] Stop: 01/23/20 23:59 Last Infusion: 12/31/19 11:37 Dose: Infused Documented by: Vancomycin IV Pharmacy to Dose (1 ea/ Sodium Chloride) 250 mls @ 1 mls/hr IV PRN PRN Sodium Chloride () 250 mls @ 15 mls/hr IV .[id number] PRN PRN Reason: Saline Flush Last Infusion: 12/31/19 11:36 Dose: 0 mls/hr Documented by: Vancomycin HCl 750 mg/ Sodium (Chloride) 265 mls @ 250 mls/hr IV Q12H [facility] Stop: 01/23/20 17:04 Last Infusion: 01/01/20 05:14 Dose: Infused Documented by: Ketoconazole (Nizoral) 1 applic TOPICAL BID [facility]; Protocol Last Admin: 01/01/20 05:17 Dose: Not Given Documented by: Nutritional Formula (Singh - [place] Flavor) [facility] Last Admin: 12/31/19 17:16 Dose: 1 packet Documented by: Oxycodone HCl (Oxyir) 10 mg PO Q4H [facility] Last Admin: 01/01/20 03:46 Dose: 10 mg Documented by: Polyethylene Glycol (Miralax) 17 gm PO DAILY [facility] Last Admin: 01/01/20 05:16 Dose: Not Given Documented by: Senna/Docusate Sodium (Senokot-S, Shahana-Colace) 2 tablet PO BID [facility] Last Admin: 01/01/20 05:17 Dose: Not Given Documented by: Sodium Chloride () 10 - 40 ml IV UD PRN PRN Reason: Open End PICC Flush Last Admin: 12/31/19 17:12 Dose: 20 ml Documented by: Sodium Chloride (0.9% Nacl (Sterile) Posiflush) 10 - 40 ml IV UD PRN PRN Reason: Port access or dressing change Last Admin: 12/18/19 05:44 Dose: 40 ml Documented by: Tramadol HCl (Ultram) 50 mg PO Q6H PRN PRN PRN Reason: Pain Score 4-5/10 Last Admin: 12/26/19 05:55 Dose: 50 mg Documented by: Venlafaxine HCl (Effexor Xr) 75 mg PO DAILY [facility] Last Admin: 01/01/20 05:16 Dose: 75 mg Documented by: Medical Necessity - Tobacco Use Smoking Status: Never smoker Tobacco Use: Non-smoker Assessment/Plan All Active Problems Osteomyelitis of foot, right, acute (Acute) Cellulitis of foot, right (Acute) Type 2 diabetes mellitus with diabetic polyneuropathy (Acute) Debility (Acute) Open wound of right heel (Acute) Foot osteomyelitis, right (Acute) Venous ulcer of right lower extremity without varicose veins (Resolved) Varicose veins of right lower extremity with ulcer (Resolved) Chronic nonhealing ulcer right heel with deep tissue exposed, Osteomyelitis right calcaneus s/p debridement and bone biopsy on 12/12/2019 Peripheral vascular disease Diabetes I reviewed and discussed his case. There is noted improvement to heel. There are no local signs of infection. He is afebrile and his vital signs remained stable. His last labs were performed on 15 and he did not demonstrate leukocytosis at that time. A wet to dry gauze dressing via gauze normal saline solution was placed until the wound VAC can be reapplied today (150 mmHg continuous). Suture removal will be considered next week. To continue strict offloading to the right lower extremity. Infectious disease is on consultation. He will complete an extended course of IV vancomycin and ertapenem with a stop date of 01-23-2020. The microbiology results of the calcaneus bone biopsy demonstrated Staphylococcus epidermidis and Propionibacterium acnes. The pathology results of the calcaneus bone biopsy was negative for acute osteomyelitis. Microbiology results for the post debridement and post irrigation wound demonstrated no additional bacterial growth. Healing capability is guarded given his poor circulation. He will continue to follow up with Dr. Navas in the out patient setting. Nutrition optimization was reviewed and encouraged to machine operator helper his healing process. He will also continue to work with therapy to improve his ability to safely return home with less assistance. The podiatry team will follow him weekly while in house. Please not hesitate to call if you have any questions. Jenniffer Good DPM, FACF[facility] [phone]
[2020-01-01] MEDS: Aspirin 325 MG Tablet PO (08:09)
[2020-01-01 14:24] VITALS: BP 134/70; PULSE 68; RESP 14; TEMP 37.2; O2SAT 93
[2020-01-01] MEDS: 0.9% Saline Lock 10 ML Syringe IV ×2 (14:24→15:28)
[2020-01-01] MEDS: Ketoconazole Cream 1 APPLIC TOPICAL (17:23)
[2020-01-01] MEDS: Senna/Docusate Sodium 1 Tablet 2 TABLET PO (17:24)
[2020-01-02 03:17] VITALS: BP 149/68; PULSE 74; RESP 16; TEMP 36.6; O2SAT 95
[2020-01-02] MEDS: oxyCODONE 5 MG Tablet 10 MG PO ×5 (03:19→19:52)
[2020-01-02] MEDS: Venlafaxine XR 75 MG Capsule PO (03:20)
[2020-01-02] MEDS: 0.9% Saline Lock 10 ML Syringe IV ×3 (03:21→16:25)
[2020-01-02] MEDS: Senna/Docusate Sodium 1 Tablet 2 TABLET PO ×2 (03:21→16:34)
[2020-01-02] MEDS: Clopidogrel Bisulfate 75 MG Tablet PO (03:21)
[2020-01-02] MEDS: Aspirin 325 MG Tablet PO (08:21)
--- NOTE | 2020-01-02 11:40 | NURSING ---
PT STATED HE CALLS HIS EVERYDAY AND UP DATES HER.
[2020-01-02 14:23] VITALS: BP 139/74; PULSE 63; RESP 18; TEMP 36.5; O2SAT 96
[2020-01-02] MEDS: Ketoconazole Cream 1 APPLIC TOPICAL (16:32)
[2020-01-02 19:52] VITALS: PULSE 70; RESP 16; O2SAT 95
--- NOTE | 2020-01-02 23:04 | PCA ---
this wire communications engineer asked pt if he wanted to get washed up and change into some pjs for the night and pt refused, emptied urinal and gave fresh water.
[2020-01-03] MEDS: oxyCODONE 5 MG Tablet 10 MG PO ×5 (04:34→19:34)
[2020-01-03] MEDS: Clopidogrel Bisulfate 75 MG Tablet PO (04:35)
[2020-01-03] MEDS: Senna/Docusate Sodium 1 Tablet 2 TABLET PO ×2 (04:35→17:04)
[2020-01-03] MEDS: Venlafaxine XR 75 MG Capsule PO (04:35)
[2020-01-03] MEDS: 0.9% Saline Lock 10 ML Syringe IV ×3 (04:40→16:14)
[2020-01-03 04:49] VITALS: BP 136/74; PULSE 53; RESP 16; TEMP 36.4; O2SAT 97
[2020-01-03] MEDS: Aspirin 325 MG Tablet PO (08:17)
[2020-01-03 09:50] VITALS: PULSE 69; RESP 18; O2SAT 98
--- NOTE | 2020-01-03 11:54 | NURSING ---
PT STATED HE CALLS HIS EVERY DAY AND DATES HER.
[2020-01-03 14:35] VITALS: BP 141/79; PULSE 70; RESP 16; TEMP 36.6; O2SAT 99
[2020-01-03 17:03] LABS: Bedside Glucose 120 mg/dL (70-110)
--- NOTE | 2020-01-03 22:51 | PCA ---
SAS PROGRAMMER ANALYST offered to help patient wash up for the night and he refused. saying I don't feel like washing tonight
[2020-01-04] MEDS: oxyCODONE 5 MG Tablet 10 MG PO ×6 (00:17→20:02)
[2020-01-04 04:00] VITALS: BP 137/68; PULSE 51; RESP 16; TEMP 36.6; O2SAT 97
[2020-01-04] MEDS: 0.9% Saline Lock 10 ML Syringe IV ×2 (04:10→16:17)
[2020-01-04] MEDS: Senna/Docusate Sodium 1 Tablet 2 TABLET PO ×2 (05:00→17:12)
[2020-01-04] MEDS: Venlafaxine XR 75 MG Capsule PO (05:33)
[2020-01-04] MEDS: Clopidogrel Bisulfate 75 MG Tablet PO (05:33)
[2020-01-04 06:25] LABS: Bedside Glucose 119 mg/dL (70-110)
[2020-01-04] MEDS: Aspirin 325 MG Tablet PO (08:18)
[2020-01-04 14:01] VITALS: BP 137/76; PULSE 71; RESP 16; TEMP 37.3; O2SAT 93
--- NOTE | 2020-01-04 15:04 | PCM.PN.ID ---
Patient Problems: Active and Suspected Problems Debility (Acute) Open wound of right heel (Acute) Foot osteomyelitis, right (Acute) Subjective: Feeling ok, mild dizziness, foot improving, no fever, no n/v/d. - Physical Exam Vitals/I&O's: Vital Signs Temp Pulse Resp BP Pulse Ox 99.2 F H 71 16 137/76 H 93 01/04/20 14:01 01/04/20 14:01 01/04/20 14:01 01/04/20 14:01 01/04/20 14:01 Oxygen Flow Rate (L/min) 96 Oxygen Delivery Method Room Air Weight: 80.824 kg Body Mass Index (BMI) 25.2 Intake and Output for Last 24 Hours 01/02/20 01/03/20 01/04/20 23:59 23:59 23:59 Intake Total 1982.5 / 1982.5 2060 / 2060 973.75 / 973.75 Output Total 600 / 600 1750 / 1750 Balance 1382.5 / 1382.5 310 / 310 973.75 / 973.75 General: Alert, Cooperative, No apparent distress Lungs: Clear to auscultation, Normal air movement Cardiovascular: Regular rate, Regular Rhythm Abdomen: Soft, Non Tender, Non-Distended Skin: Ulcer/ Wound - R foot wound vac Laboratory Results 01/03/20 06:47: POC Glucose 120 H 01/04/20 06:11: POC Glucose 119 H Current Medications Acetaminophen (Tylenol) 1,000 mg PO Q6H PRN PRN PRN Reason: Pain Score 1-3/10 Last Admin: 12/21/19 16:54 Dose: 1,000 mg Documented by: Al Hydroxide/Mg Hydroxide (Mylanta Ii) 30 ml PO Q6H PRN PRN PRN Reason: Gastric Burning [facility]) [facility] Last Admin: 01/04/20 08:18 Dose: 325 mg Documented by: Bisacodyl (Dulcolax) 10 mg RECTAL DAILY PRN PRN Reason: Constipation Cholecalciferol (Vitamin D (25mcg)) 5,000 unit PO DAILY [facility] Last Admin: 01/04/20 05:33 Dose: 5,000 unit Documented by: Clopidogrel Bisulfate (Plavix) 75 mg PO DAILY [facility] Last Admin: 01/04/20 05:33 Dose: 75 mg Documented by: Diclofenac Sodium (Voltaren) 0 gm TP 4X/DAY PRN PRN PRN Reason: MUSCLE ACHES Last Admin: 12/21/19 16:26 Dose: 100 gm Documented by: Glucagon () 1 mg IM .X1 PRN PRN Reason: Hypoglycemia Heparin Sodium (Beef Lung) () 50 units IV UD PRN PRN Reason: PICC Line Heparin Flush Last Admin: 01/01/20 14:24 Dose: 50 units Documented by: Ertapenem 1 gm/ Sodium (Chloride) 50 mls @ 100 mls/hr IV Q24 [facility] Stop: 01/23/20 23:59 Last Infusion: 01/04/20 10:51 Dose: Infused Documented by: Vancomycin IV Pharmacy to Dose (1 ea/ Sodium Chloride) 250 mls @ 1 mls/hr IV PRN PRN Sodium Chloride () 250 mls @ 15 mls/hr IV .[id number] PRN PRN Reason: Saline Flush Last Infusion: 01/04/20 14:46 Dose: 0 mls/hr Documented by: Vancomycin HCl 750 mg/ Sodium (Chloride) 265 mls @ 250 mls/hr IV Q12H [facility] Stop: 01/23/20 17:04 Last Infusion: 01/04/20 05:35 Dose: Infused Documented by: Ketoconazole (Nizoral) 1 applic TOPICAL BID [facility]; Protocol Last Admin: 01/04/20 05:33 Dose: Not Given Documented by: Lactobacillus Acidophilus (Acidophilus) 1 tablet PO BID [facility] Last Admin: 01/04/20 05:33 Dose: 1 tablet Documented by: Nutritional Formula (Singh - [place] Flavor) 1 packet PO BIDCM [facility] Last Admin: 01/04/20 08:18 Dose: 1 packet Documented by: Oxycodone HCl (Oxyir) 10 mg PO Q4H [facility] Last Admin: 01/04/20 11:00 Dose: 10 mg Documented by: Polyethylene Glycol (Miralax) 17 gm PO DAILY [facility] Last Admin: 01/04/20 05:33 Dose: Not Given Documented by: Senna/Docusate Sodium (Senokot-S, Shahana-Colace) 2 tablet PO BID [facility] Last Admin: 01/04/20 05:00 Dose: 2 tablet Documented by: Sodium Chloride () 10 - 40 ml IV UD PRN PRN Reason: Open End PICC Flush Last Admin: 01/04/20 04:10 Dose: 30 ml Documented by: Sodium Chloride (0.9% Nacl (Sterile) Posiflush) 10 - 40 ml IV UD PRN PRN Reason: Port access or dressing change Last Admin: 12/18/19 05:44 Dose: 40 ml Documented by: Tramadol HCl (Ultram) 50 mg PO Q6H PRN PRN PRN Reason: Pain Score 4-5/10 Last Admin: 12/26/19 05:55 Dose: 50 mg Documented by: Venlafaxine HCl (Effexor Xr) 75 mg PO DAILY [facility] Last Admin: 01/04/20 05:33 Dose: 75 mg Documented by: Medical Necessity - Tobacco Use Smoking Status: Never smoker Tobacco Use: Non-smoker Route of nutrition/ use of supplements: [] Nutritional Intake: [] IV Site: [] Baires Catheter: [] - Assessment/Plan Antibiotics: [] Assessment/Plan: [] Active and Suspected Problems Debility (Acute) Open wound of right heel (Acute) Foot osteomyelitis, right (Acute) R heel osteo with DM neuropathy and PAD - bone bx and debridement by Dr. Good 12/12/19. Surg cx with MRSE and corynebacteria. Prior cxs with anaerobes and enterobacter and P. acnes as well. On vanc/ertapenem, stop date 01/23/20, weekly bmp, cbc, LFT, esr, and vanc trough. Will follow
[2020-01-04] MEDS: Ketoconazole Cream 1 APPLIC TOPICAL (17:11)
[2020-01-04 20:10] VITALS: PULSE 72; RESP 18; O2SAT 98
[2020-01-05] MEDS: oxyCODONE 5 MG Tablet 10 MG PO ×5 (03:34→20:34)
[2020-01-05] MEDS: Venlafaxine XR 75 MG Capsule PO (03:34)
[2020-01-05] MEDS: Clopidogrel Bisulfate 75 MG Tablet PO (03:35)
[2020-01-05 04:00] VITALS: BP 133/63; PULSE 68; RESP 16; TEMP 36.9; O2SAT 97
[2020-01-05] MEDS: 0.9% Saline Lock 10 ML Syringe IV ×4 (04:01→16:32)
[2020-01-05] MEDS: Alteplase 2 MG/2 ML Vial IV (04:50)
--- NOTE | 2020-01-05 04:53 | NURSING ---
Addendum entered by Caron Cottrell 01/05/20 07:39: 0700- scant blood return only noted from red lumen during routine cathflo checks. reported to oncoming nurses Je and Poppy. Original Note: 0450- cath nic administered to red lumen due to no blood return. Will monitor.
[2020-01-05 06:35] LABS: Bedside Glucose 93 mg/dL (70-110)
[2020-01-05] MEDS: Aspirin 325 MG Tablet PO (08:00)
--- NOTE | 2020-01-05 09:09 | CASEMGMT ---
Social Work Spoke with patient the day prior to discuss DC plans. Pt ready to go home but understands his IVs run until 01/21. Offered to contact I to get pricing for IVS as advised Medicare will not pay 100% in the community unlike they would continue to do in TCU. Pt agreed. Provided pricing to pt. Overall, weekly it would cost about $657, not including wound vac if that is not covered at 100%. Explained pt or would need to administer IVS at home because [facility] nurse will only be out 3x/wk to change wound vac. Pt appreciative of information. Will speak with and notify SW if he decides to DC home. However, pt already expressed financial issues so he stated he will most likely remain here. Will continue to follow. MAXIM LopezW
[2020-01-05 10:00] VITALS: PULSE 70; RESP 18; O2SAT 97
--- NOTE | 2020-01-05 12:50 | NURSING ---
Pt stated he up dates his every day.
[2020-01-05 13:53] VITALS: BP 131/60; PULSE 64; RESP 14; TEMP 36.6; O2SAT 97
[2020-01-05] MEDS: Senna/Docusate Sodium 1 Tablet 2 TABLET PO (17:06)
[2020-01-05] MEDS: Ketoconazole Cream 1 APPLIC TOPICAL (17:07)
--- NOTE | 2020-01-06 00:04 | PCA ---
PT refused to get washed up
[2020-01-06] MEDS: oxyCODONE 5 MG Tablet 10 MG PO ×6 (00:19→20:42)
[2020-01-06] MEDS: Senna/Docusate Sodium 1 Tablet 2 TABLET PO ×2 (03:21→17:04)
[2020-01-06] MEDS: Venlafaxine XR 75 MG Capsule PO (03:22)
[2020-01-06] MEDS: Clopidogrel Bisulfate 75 MG Tablet PO (03:22)
[2020-01-06] MEDS: 0.9% Saline Lock 10 ML Syringe IV ×2 (03:25→10:28)
[2020-01-06 04:00] VITALS: BP 117/78; PULSE 72; RESP 16; TEMP 36.9; O2SAT 96
[2020-01-06 05:44] LABS: Absolute Lymphocyte Count 1.57 X10^3/uL (0.83-4.51); Absolute Neutrophil Count 2.4 X10^3/uL (2.0-7.7); Basophil# 0.07 X10^3/uL; Basophil% 1.4 % (0-1); Eosinophil# 0.32 X10^3/uL; Eosinophils% 6.4 % (0-5); Hematocrit 38.2 % (40-54); Hemoglobin 12.3 g/dL (13.0-16.5); Lymphocyte # 1.57 X10^3/ul (4.0); Lymphocyte % 31.5 % (19-41); Mean Corp Hgb Conc 32.2 g/dL (32-36); Mean Corpuscular Hgb 31.3 pg (27.0-32.0); Mean Corpuscular Volume 97.2 fL (80-94); Mean Platelet Vol. 9.4 fl (6.2-12.0); Monocyte# 0.58 X10^3/uL; Monocyte% 11.6 % (0-10); NRBC Flagged by Analyzer 0 % (0-5); Neutrophil # 2.43 X10^3/uL (2.7-7.7); Neutrophil % 48.7 % (47-70); POSITIVE MORPHOLOGY YES; Platelet Count 161 K/mm3 (150-450); RBC Distribution Width CV 13.3 % (11.6-14.6); RBC Distribution Width SD 47.8 fl (35.1-43.9); Red Blood Count 3.93 M/mm3 (4.6-6.2)
[2020-01-06 06:36] LABS: Bedside Glucose 119 mg/dL (70-110)
[2020-01-06 06:39] LABS: Anion Gap 3 (5-15); BUN 29 mg/dL (7-18); BUN/Creat Ratio 27.1 RATIO (10-20); Calcium,Total 8.3 mg/dL (8.5-10.1); Chloride 107 mmol/L (98-107); Creatinine, Serum 1.07 mg/dL (0.70-1.30); EST Glomerular Filtration Rate 73 mL/min (>60); Est Glom Filt Rate - Afr Amer 88 mL/min (>60); Estimated Creatinine Clearance 63.04 ml/min; Glucose 111 mg/dL (74-106); Potassium 3.8 mmol/L (3.5-5.1); Sodium Level 138 mmol/L (136-145)
[2020-01-06 06:42] LABS: Differential Indicated SCAN CRITERIA MET
[2020-01-06 07:21] LABS: Erythrocyte Sedimentation Rate 16 mm/hr (0-20)
[2020-01-06 08:07] LABS: Differential Comment SCANNED; Red Cell Morphology NORM C+C NORMAL (NORM C&C)
[2020-01-06] MEDS: Aspirin 325 MG Tablet PO (08:08)
--- NOTE | 2020-01-06 10:01 | NURSING ---
pt stated he up dates his every day.
[2020-01-06 14:06] VITALS: BP 149/64; PULSE 64; RESP 18; TEMP 36.8; O2SAT 96
[2020-01-06 14:17] VITALS: BP 114/74; PULSE 67; RESP 14; TEMP 36.9; O2SAT 97
--- NOTE | 2020-01-06 14:21 | PCA ---
charted on the wrong patient.
[2020-01-06 20:43] VITALS: PULSE 72; RESP 18; O2SAT 98
--- NOTE | 2020-01-07 03:17 | PCA ---
this wastewater treatment plant chemist asked if pt want to wash up and get his pjs on for the night pt refused to do pm care,but asked if i would wash his hair and get him fresh ice water so i washed his hair and got him fresh water.
[2020-01-07 03:18] VITALS: BP 124/58; PULSE 60; RESP 16; TEMP 36.8; O2SAT 97
[2020-01-07] MEDS: oxyCODONE 5 MG Tablet 10 MG PO ×5 (03:21→19:43)
[2020-01-07] MEDS: Clopidogrel Bisulfate 75 MG Tablet PO (03:22)
[2020-01-07] MEDS: Senna/Docusate Sodium 1 Tablet 2 TABLET PO ×2 (03:22→17:06)
[2020-01-07] MEDS: 0.9% Saline Lock 10 ML Syringe IV ×3 (03:28→17:13)
[2020-01-07] MEDS: Venlafaxine XR 75 MG Capsule PO (04:45)
[2020-01-07 06:31] LABS: Bedside Glucose 140 mg/dL (70-110)
[2020-01-07] MEDS: Aspirin 325 MG Tablet PO (07:52)
[2020-01-07 10:00] VITALS: PULSE 74; RESP 16; O2SAT 98
[2020-01-07 14:18] VITALS: BP 139/76; PULSE 68; RESP 16; TEMP 36.9; O2SAT 98
--- NOTE | 2020-01-07 16:13 | CHAPLAIN ---
Type of Pastoral Visit ___ Initial Visit _x__ Follow-up Visit ___ On-call Visit ___ General Patient Visit ___ Spiritual Assessment ___ Family Conference ___ Bereavement ___ Rapid Response ___ Code Blue ___ Other (describe below) Pastoral Care Referral From _x__ Patient ___ Family ___ Nurse ___ Physician ___ Metal Flow Coordinator ___ Delivery Truck Driver Heavy _x__ Other (describe below) Sacrament/Intervention _x__ Active listening ___ Anointing ___ Anabaptism ___ Bereavement ___ Communion ___ Ramona exploration ___ ___ Life review _x__ Prayer ___ Reconciliation ___ Sacrament of Sick _x__ Supportive presence ___ Wedding ___ Other (describe below) Pastoral Comments very low affect again with this patient; he does welcome the visit and asks about this sports marketing internship; but pt is focused on his problems and his very slow recovery; pt states that he cannot turn off his brain 07/01 and has not slept well; pt encouraged to focus on what is good and find psalms to read before going to bed; pt did admit that pain is managed better now; pt welcomes prayer
[2020-01-07 16:25] LABS: Vancomycin, Trough Level 15.6 ug/mL (5.0-15.0)
[2020-01-07] MEDS: Ketoconazole Cream 1 APPLIC TOPICAL (17:06)
--- NOTE | 2020-01-07 18:50 | PCM.RX.CS ---
Consult Pharmacy has been consulted to manage selected antiobiotic: Vancomycin Type of Consult: Follow-up Suspected Infection: Osteomyelitis Prior Doses of Antibiotics Received/Current Regimen: Currently on 750mg iv q12h. Labs: Sodium 138 mmol/L (136-145) 01/06/20 05:10 Potassium 3.8 mmol/L (3.5-5.1) 01/06/20 05:10 Chloride 107 mmol/L (98-107) 01/06/20 05:10 Carbon Dioxide 28.0 mmol/L (21.0-32.0) 01/06/20 05:10 Anion Gap 3 (5-15) L 01/06/20 05:10 BUN 29 mg/dL (7-18) H 01/06/20 05:10 Creatinine 1.07 mg/dL (0.70-1.30) 01/06/20 05:10 Est GFR (MDRD) Af Amer 88 mL/min (>60) 01/06/20 05:10 Est GFR (MDRD) Non-Af 73 mL/min (>60) 01/06/20 05:10 BUN/Creatinine Ratio 27.1 RATIO (10-20) H 01/06/20 05:10 Glucose 111 mg/dL (74-106) H 01/06/20 05:10 Vancomycin Trough 15.6 ug/mL (5.0-15.0) H 01/07/20 15:42 Weight used for dosin kg Estimated Creatinine Clearance: 63ml/min Goal Trough: 15-20 mcg/mL Pharmacy Plan for Drug Dosing: Trough today 15.6 and in goal range. Will continue same dose. Another trough level ordered for in 1 week on 01.14.20. Pharmacy Service will continue to monitor and adjust dosing as required. Follow-Up Labs: Trough Vancomycin - 01.14.20 @1530 before 1600 dose
[2020-01-08] MEDS: oxyCODONE 5 MG Tablet 10 MG PO ×5 (00:25→16:09)
[2020-01-08 00:27] VITALS: BP 155/55; PULSE 63; RESP 16; TEMP 36.3; O2SAT 95
[2020-01-08] MEDS: 0.9% Saline Lock 10 ML Syringe IV ×4 (04:03→17:26)
[2020-01-08] MEDS: Clopidogrel Bisulfate 75 MG Tablet PO (05:25)
[2020-01-08] MEDS: Senna/Docusate Sodium 1 Tablet 2 TABLET PO ×2 (05:25→17:27)
[2020-01-08] MEDS: Venlafaxine XR 75 MG Capsule PO (05:25)
[2020-01-08 06:26] LABS: Bedside Glucose 107 mg/dL (70-110)
--- NOTE | 2020-01-08 07:24 | PN_ITS ---
Patient Problems: Active and Suspected Problems Debility (Acute) Open wound of right heel (Acute) Foot osteomyelitis, right (Acute) Subjective: Patient was seen today for follow up on right heel ulceration. He relates site is feeling much better, has little pain. No new complaints, no complaints of f/c/n/v. - Physical Exam Vitals/I&O's: Vital Signs Temp Pulse Resp BP Pulse Ox 97.3 F L 63 16 155/55 H 95 01/08/20 00:27 01/08/20 00:27 01/08/20 00:27 01/08/20 00:27 01/08/20 00:27 Oxygen Flow Rate (L/min) 96 Oxygen Delivery Method Room Air Weight: 81.76 kg Body Mass Index (BMI) 25.2 Intake and Output for Last 24 Hours 01/06/20 01/07/20 01/08/20 23:59 23:59 23:59 Intake Total 1302.5 / 1302.5 1882.25 / 1882.25 1265 / 1265 Output Total 1300 / 1300 950 / 950 700 / 700 Balance 2.5 / 2.5 932.25 / 932.25 565 / 565 General: Alert, Oriented x3, Cooperative, No apparent distress Extremities: Capillary Refill Less than 3 Seconds, - - Right foot: ulcer posterior plantar heel measures 1.3cm x 1.5cm with more granular tissue and is filling in, there is no longer any probe to bone, margins viable, no cellulitis, no necrosis, no maloder, no drainage, no evidence of acute ischemia to the foot. Laboratory Results 01/07/20 15:42: Vancomycin Trough 15.6 H 01/08/20 06:19: POC Glucose 107 Current Medications Acetaminophen (Tylenol) 1,000 mg PO Q6H PRN PRN PRN Reason: Pain Score 1-3/10 Last Admin: 12/21/19 16:54 Dose: 1,000 mg Documented by: Al Hydroxide/Mg Hydroxide (Mylanta Ii) 30 ml PO Q6H PRN PRN PRN Reason: Gastric Burning [facility]) [facility] Last Admin: 01/07/20 07:52 Dose: 325 mg Documented by: Bisacodyl (Dulcolax) 10 mg RECTAL DAILY PRN PRN Reason: Constipation Cholecalciferol (Vitamin D (25mcg)) 5,000 unit PO DAILY [facility] Last Admin: 01/08/20 05:25 Dose: 5,000 unit Documented by: Clopidogrel Bisulfate (Plavix) 75 mg PO DAILY [facility] [place] Last Admin: 01/08/20 05:25 Dose: 75 mg Documented by: Diclofenac Sodium (Voltaren) 0 gm TP 4X/DAY PRN PRN PRN Reason: MUSCLE ACHES Last Admin: 12/21/19 16:26 Dose: 100 gm Documented by: Glucagon () 1 mg IM .X1 PRN PRN Reason: Hypoglycemia Heparin Sodium (Beef Lung) () 50 units IV UD PRN PRN Reason: PICC Line Heparin Flush Last Admin: 01/01/20 14:24 Dose: 50 units Documented by: Ertapenem 1 gm/ Sodium (Chloride) 50 mls @ 100 mls/hr IV Q24 [facility] [place] Stop: 01/23/20 23:59 Last Infusion: 01/07/20 11:09 Dose: Infused Documented by: Vancomycin IV Pharmacy to Dose (1 ea/ Sodium Chloride) 250 mls @ 1 mls/hr IV PRN PRN Sodium Chloride () 250 mls @ 15 mls/hr IV .[id number] PRN PRN Reason: Saline Flush Last Infusion: 01/07/20 18:40 Dose: 0 mls/hr Documented by: Vancomycin HCl 750 mg/ Sodium (Chloride) 265 mls @ 250 mls/hr IV Q12H [facility] [place] Stop: 01/23/20 17:04 Last Infusion: 01/08/20 05:23 Dose: Infused Documented by: Ketoconazole (Nizoral) 1 applic TOPICAL BID [facility]; Protocol Last Admin: 01/08/20 05:26 Dose: Not Given Documented by: Lactobacillus Acidophilus (Acidophilus) 1 tablet PO BID [facility] Last Admin: 01/08/20 05:25 Dose: 1 tablet Documented by: Nutritional Formula (Singh - [place] Flavor) [facility] Last Admin: 01/07/20 17:05 Dose: 1 packet Documented by: Oxycodone HCl (Oxyir) 10 mg PO Q4H [facility] Last Admin: 01/08/20 04:02 Dose: 10 mg Documented by: Polyethylene Glycol (Miralax) 17 gm PO DAILY [facility] [place] Last Admin: 01/08/20 05:25 Dose: Not Given Documented by: Senna/Docusate Sodium (Senokot-S, Shahana-Colace) 2 tablet PO BID [facility] [place] Last Admin: 01/08/20 05:25 Dose: 2 tablet Documented by: Sodium Chloride () 10 - 40 ml IV UD PRN PRN Reason: Open End PICC Flush Last Admin: 01/08/20 04:03 Dose: 10 ml Documented by: Sodium Chloride (0.9% Nacl (Sterile) Posiflush) 10 - 40 ml IV UD PRN PRN Reason: Port access or dressing change Last Admin: 12/18/19 05:44 Dose: 40 ml Documented by: Tramadol HCl (Ultram) 50 mg PO Q6H PRN PRN PRN Reason: Pain Score 4-5/10 Last Admin: 12/26/19 05:55 Dose: 50 mg Documented by: Venlafaxine HCl (Effexor Xr) 75 mg PO DAILY [facility] [place] Last Admin: 01/08/20 05:25 Dose: 75 mg Documented by: Medical Necessity - Tobacco Use Smoking Status: Never smoker Tobacco Use: Non-smoker Assessment/Plan All Active Problems Osteomyelitis of foot, right, acute (Acute) Cellulitis of foot, right (Acute) Type 2 diabetes mellitus with diabetic polyneuropathy (Acute) Debility (Acute) Open wound of right heel (Acute) Foot osteomyelitis, right (Acute) Venous ulcer of right lower extremity without varicose veins (Resolved) Varicose veins of right lower extremity with ulcer (Resolved) Chronic ulcer right heel with deep tissue exposed, Osteomyelitis right calcaneus s/p debridement and bone biopsy on 12/12/2019 Peripheral vascular disease Diabetes Continued improvement noted to heel. There are no local signs of infection noted he appears to be progressing from a wound healing standpoint. The dressing was changed and will continue with wound vac. To continue strict offloading to the right lower extremity. Infectious disease is on consultation. He will complete an extended course of IV vancomycin and ertapenem with a stop date of 01-23-2020. The microbiology results of the calcaneus bone biopsy demonstrated Staphylococcus epidermidis and Propionibacterium acnes. The pathology results of the calcaneus bone biopsy was negative for acute osteomyelitis. Healing capability is overall guarded given his poor circulation. He will continue to follow up with Dr. Navas in the out patient setting. Nutrition optimization was reviewed and encouraged to stained glass glazier helper his healing process. The podiatry team will follow him weekly while in house. Please not hesitate to call if you have any questions.
[2020-01-08] MEDS: Aspirin 325 MG Tablet PO (08:12)
[2020-01-08 10:00] VITALS: PULSE 70; RESP 18; O2SAT 97
--- NOTE | 2020-01-08 10:05 | RAD_ITS ---
STUDY: X-RAY CHEST REASON FOR EXAM: Male, 69 years old. PICC LINE PLACEMENT 2 WEEKS AGO TECHNIQUE: Single AP portable view of the chest. COMPARISON: 12/12/2019 FINDINGS: A left-sided PICC line is in place, tip is in the distal SVC. The lungs are clear and expanded. There is no demonstrated pleural abnormality. Sternal cerclage wires and vascular clips are present from a prior sternotomy and coronary artery bypass graft procedure (CABG). Normal mediastinum and isaak. Normal visualized pulmonary arteries. Normal visualized aortic arch and descending thoracic aorta. Normal visualized thoracic spine. Normal visualized ribs, clavicles, and shoulders. There is no demonstrated abnormality of the visualized soft tissue structures of the upper abdomen. RAD/CXR for Line Placement IMPRESSION: No acute pulmonary process Left-sided PICC line tip in the distal SVC Electronically Signed: Shamir Cano MD at 11:24 EDT , Service support ,
--- NOTE | 2020-01-08 10:19 | VDUE_ITS ---
Reason For Study: Swelling Left Proximal Left jugular vein is spontaneous, widely patent, phasic, with no intraluminal echogenicity noted. Left subclavian vein is spontaneous, widely patent, phasic, with no intraluminal echogenicity noted. PICC Line noted in Subclavian vein. Left Arm Acute deep vein thrombosis is noted throughout the left axillary vein, along PICC line. Left brachial vein is compressible. Left cephalic vein is compressible. Left basilic vein is compressible. PICC line noted in the Basilic vein. Left Lower Arm Left radial vein is compressible. Left ulnar vein is compressible. Patient Safety Prelim to TCU RN. Interpretation Summary PICC line noted in the left subclavian vein. Noncompressible left axillary vein visualized along the PICC line consistent with acute deep vein thrombosis Patent and compressible left cephalic and basilic veins. Ordering Physician: Jerrod Medina Referring Physician: Mckayla Silva Performed By: Savanna Quinones RVT ?
--- NOTE | 2020-01-08 10:25 | NURSING ---
Addendum entered by Bibi Duran 01/08/20 10:32: measured arm circumference @ 30cm, same as when picc line inserted Original Note: dr gallo notified, pt LT arm with 2+pitting edema also c/o discomfort to axillary as well. chest xray obtained to check placement of PICC line, line at 0cm. no redness or drng noted. new order for doppler of GEO.
--- NOTE | 2020-01-08 11:06 | NURSING ---
Addendum entered by Bibi Duran 01/08/20 15:11: cardiovascular invasive specialist noted clot around picc line in LT axillary, Dr Medina updated, new orders entered. pt updated. Original Note: Pt c/o swelling that is worse than yesterday and pain in left upper arm. Charge nurse notified, ultrasound ordered.
[2020-01-08 14:08] VITALS: BP 145/56; PULSE 65; RESP 16; TEMP 36.6; O2SAT 99
[2020-01-08] MEDS: Furosemide 40 MG/4 ML Vial IV (15:54)
[2020-01-08] MEDS: APIXABAN 5 MG TABLET 10 MG PO (16:09)
[2020-01-09] MEDS: oxyCODONE 5 MG Tablet 10 MG PO ×5 (03:50→20:09)
[2020-01-09 04:00] VITALS: BP 124/61; PULSE 59; RESP 16; TEMP 36.7; O2SAT 94
[2020-01-09] MEDS: Venlafaxine XR 75 MG Capsule PO (05:28)
[2020-01-09] MEDS: Senna/Docusate Sodium 1 Tablet 2 TABLET PO (05:28)
[2020-01-09] MEDS: APIXABAN 5 MG TABLET 10 MG PO ×2 (05:28→17:02)
[2020-01-09 06:41] LABS: Bedside Glucose 96 mg/dL (70-110)
[2020-01-09] MEDS: Aspirin 81 MG TAB.CHEW PO (07:44)
[2020-01-09] MEDS: 0.9% Saline Lock 10 ML Syringe IV ×3 (09:37→18:10)
[2020-01-09] MEDS: Furosemide 40 MG/4 ML Vial IV ×2 (10:30→18:10)
[2020-01-09 13:51] VITALS: BP 119/56; PULSE 74; RESP 17; TEMP 36.7; O2SAT 95
[2020-01-09] MEDS: Ketoconazole Cream 1 APPLIC TOPICAL (17:02)
[2020-01-10 03:57] VITALS: BP 118/63; PULSE 57; RESP 16; TEMP 36.4; O2SAT 96
[2020-01-10] MEDS: oxyCODONE 5 MG Tablet 10 MG PO ×5 (03:58→20:33)
[2020-01-10] MEDS: APIXABAN 5 MG TABLET 10 MG PO ×2 (05:12→17:01)
[2020-01-10] MEDS: Venlafaxine XR 75 MG Capsule PO (05:12)
[2020-01-10] MEDS: Ketoconazole Cream 1 APPLIC TOPICAL ×2 (05:12→17:26)
[2020-01-10 06:31] LABS: Bedside Glucose 127 mg/dL (70-110)
[2020-01-10 06:41] LABS: Anion Gap 6 (5-15); BUN 37 mg/dL (7-18); BUN/Creat Ratio 33.6 RATIO (10-20); Calcium,Total 8.4 mg/dL (8.5-10.1); Chloride 106 mmol/L (98-107); EST Glomerular Filtration Rate 70 mL/min (>60); Est Glom Filt Rate - Afr Amer 85 mL/min (>60); Estimated Creatinine Clearance 61.32 ml/min; Glucose 132 mg/dL (74-106); Potassium 3.9 mmol/L (3.5-5.1); Sodium Level 140 mmol/L (136-145)
[2020-01-10] MEDS: Aspirin 81 MG TAB.CHEW PO (07:23)
[2020-01-10] MEDS: 0.9% Saline Lock 10 ML Syringe IV ×4 (08:48→17:30)
[2020-01-10 08:57] VITALS: PULSE 75; RESP 16; O2SAT 91
[2020-01-10] MEDS: Furosemide 40 MG/4 ML Vial IV ×2 (10:35→17:30)
[2020-01-10 13:43] VITALS: BP 126/59; PULSE 70; RESP 14; TEMP 36.9; O2SAT 97
[2020-01-10] MEDS: Senna/Docusate Sodium 1 Tablet 2 TABLET PO (17:01)
[2020-01-11] MEDS: Polyethylene Glycol 3350 17 GM PACKET PO (04:02)
[2020-01-11] MEDS: APIXABAN 5 MG TABLET 10 MG PO ×2 (04:12→16:44)
[2020-01-11] MEDS: Venlafaxine XR 75 MG Capsule PO (04:12)
[2020-01-11] MEDS: oxyCODONE 5 MG Tablet 10 MG PO ×5 (04:13→20:15)
[2020-01-11] MEDS: 0.9% Saline Lock 10 ML Syringe IV ×5 (04:18→17:41)
[2020-01-11] MEDS: Ketoconazole Cream 1 APPLIC TOPICAL (04:20)
[2020-01-11 04:21] VITALS: BP 108/65; PULSE 70; RESP 16; TEMP 36.7; O2SAT 95
[2020-01-11 06:20] LABS: Bedside Glucose 131 mg/dL (70-110)
[2020-01-11] MEDS: Aspirin 81 MG TAB.CHEW PO (08:13)
[2020-01-11] MEDS: Furosemide 40 MG/4 ML Vial IV ×2 (10:11→17:41)
--- NOTE | 2020-01-11 10:17 | NURSING ---
pt stated he talks to every day and lets her know how hes doing.
[2020-01-11 14:14] VITALS: BP 121/68; PULSE 78; RESP 14; TEMP 36.7; O2SAT 94
[2020-01-11] MEDS: Senna/Docusate Sodium 1 Tablet 2 TABLET PO (16:33)
[2020-01-11 20:15] VITALS: PULSE 88; RESP 16; O2SAT 94
--- NOTE | 2020-01-11 20:46 | PN_ITS ---
Subjective: Resident seen for regulatory visit. He is sitting in chair finishing supper. He has no new problems, concerns, issues, complaints. He is smiling and happy with his progress. His right heel pain is much better controlled. Vitals/I&O's: Vital Signs Temp Pulse Resp BP Pulse Ox 98.1 F 78 14 121/68 H 94 01/11/20 14:14 01/11/20 14:14 01/11/20 14:14 01/11/20 14:14 01/11/20 14:14 Oxygen Flow Rate (L/min) 96 Oxygen Delivery Method Room Air Weight: 84.907 kg Body Mass Index (BMI) 25.2 Intake and Output for Last 24 Hours 01/09/20 01/10/20 01/11/20 23:59 23:59 23:59 Intake Total 2337.5 / 2337.5 1935.25 / 193.25 1620 / 1620 Output Total 800 / 800 Balance 1537.5 / 1537.5 1935.25 / 193.25 1620 / 1620 Laboratory Results 01/11/20 06:13: POC Glucose 131 H Past Medical History Past Medical History (Chronic Problems): Chronic Problems Coronary artery disease (Chronic) Peripheral arterial occlusive disease (Chronic) Diabetes mellitus (Chronic) Stroke (Chronic) Depression (Chronic) Type 2 diabetes, uncontrolled, with ulcer of heel (Chronic) right plantar heel Stage II pressure ulcer of sacral region (Chronic) Diabetes with ulcer of toe (Chronic) PAD (peripheral artery disease) (Chronic) Cellulitis and abscess of foot (Chronic) Type 2 diabetes, controlled, with ulcer of heel (Chronic) Non-healing open wound of heel (Chronic) Hyperlipidemia (Chronic) Peripheral vascular disease (Chronic) Hypertension (Chronic) Coronary artery disease (Chronic) Status post CABG Type II diabetes mellitus (Chronic) Valdez grade 3 Allergies morphine Allergy (Verified 12/11/19 16:26) PT UNSURE OF REACTION i was told after surgery that i shouldn't have it rivaroxaban [From Xarelto] Allergy (Verified 12/11/19 14:29) Other Home Medications: Ambulatory Orders Medication Instructions Recorded Aspirin [Lite Coat Aspirin] 325 mg PO DAILY 06/13/18 Cholecalciferol (Vitamin D3) 5,000 mg PO DAILY 06/13/18 [Vitamin D3] Clopidogrel Bisulfate [Clopidogrel] 75 mg PO DAILY 09/08/18 Venlafaxine HCl 37.5 mg PO DAILY 12/11/19 Diclofenac Sodium [Voltaren] 1 applic TOPICAL 4X/DAY PRN PRN 12/12/19 Acetaminophen [Tylenol Tablet] 650 mg PO Q6H PRN PRN tab 12/15/19 Ertapenem Sodium [Ertapenem] 1 gm IV Q24H 12/15/19 Glucagon 1 mg IM .X1 PRN syringe 12/15/19 Insulin Lispro [Humalog KwikPen] See Protocol SUBCUT ACHS 12/15/19 Mag Hydrox/Al Hydrox/Simeth 30 ml PO Q6H PRN PRN udc 12/15/19 [Mylanta II] Nutritional Supplement [Singh - 1 packet PO BIDCM 12/15/19 [facility]] Oxycodone [Oxyir] 10 mg PO Q4H PRN PRN 3 Days #12 tab 12/15/19 Vancomycin IV [Vancomycin] 1,000 mg IV Q12H 12/15/19 Surgical History: coronary bypass surgery, - - Recurrent back surgeries ?3, lower extremity bypass grafting Psychiatric History: Depression Lives: Spouse/ Significant Other Smoking Status: Never smoker Tobacco Use: Non-smoker Alcohol: None Drugs: None - *Family History Sibling History Items: Cancer Maternal History Items: Diabetes, Heart Disease, Hypertension, Stroke Paternal History Items: Diabetes, Heart Disease, Pulmonary Disease Capacity - Capacity Assessment Tool Can the patient make a choice & communicate that choice?: Yes Can the patient understand benefits, risks and alternatives?: Yes Can the patient make a logical, rational choice?: Yes Is the choice the patient makes consistent w/ their values?: Yes Is there an impending, emergent risk to the patient?: No Does the patient have an Advance Directive?: No Is there a Surrogate Available?: Yes i.e. HCPOA: Yes i.e. close relative (spouse, child, parent, sibling)?: Yes Review of Systems Constitutional: Denies: Chills, Fever, Weight Change HEENT: Denies: Head Aches, Sinus Congestion, Sinus Drainage Cardiovascular: Denies: Chest Pain, Palpitations Respiratory: Denies: Cough, Shortness of breath at rest, Sputum production Gastrointestinal: Denies: Abdominal Pain, Nausea, Vomiting Genitourinary: Denies: Dysuria Musculoskeletal: Denies: Joint Pain, Joint Tenderness Skin: Denies: Rash, Wounds Neurological: Denies: Numbness, Tingling, Focal weakness Psychiatric: Denies: Anxiety, Depression, Homicidal Ideations, Suicidal Ideations Hematologic/ Lymphatic: Denies: Easy Bruising, Easy Bleeding Patient Problems: Active and Suspected Problems Debility (Acute) Open wound of right heel (Acute) Foot osteomyelitis, right (Acute) - Physical Exam Vitals/I&O's: Vital Signs Temp Pulse Resp BP Pulse Ox 98.1 F 78 14 121/68 H 94 01/11/20 14:14 01/11/20 14:14 01/11/20 14:14 01/11/20 14:14 01/11/20 14:14 Oxygen Flow Rate (L/min) 96 Oxygen Delivery Method Room Air Weight: 84.907 kg Body Mass Index (BMI) 25.2 Intake and Output for Last 24 Hours 01/09/20 01/10/20 01/11/20 23:59 23:59 23:59 Intake Total 2337.5 / 2337.5 1935.25 / 193.25 1620 / 1620 Output Total 800 / 800 Balance 1537.5 / 1537.5 1935.25 / 193.25 1620 / 1620 General: Alert, Oriented x3, Cooperative HEENT: Atraumatic, PERRLA, EOMI, Normocephalic Neck: Supple, No JVD, Negative Carotid Bruits Lungs: Clear to auscultation, Normal air movement Cardiovascular: Regular rate, No murmurs Abdomen: Bowel Sounds Present, Soft, Non Tender Extremities: No edema, Capillary Refill Less than 3 Seconds, - - Right heel vac dressing. Skin: No rashes, No breakdown Musculoskeletal: No Tenderness to Palpation of Joints or Extremities Neurological: Cranial nerves II-XII grossly intact Psych/Mental Status: Normal Affect, Appropriate Laboratory Results 01/11/20 06:13: POC Glucose 131 H Current Medications Acetaminophen (Tylenol) 1,000 mg PO Q6H PRN PRN PRN Reason: Pain Score 1-3/10 Last Admin: 12/21/19 16:54 Dose: 1,000 mg Documented by: Al Hydroxide/Mg Hydroxide (Mylanta Ii) 30 ml PO Q6H PRN PRN PRN Reason: Gastric Burning Apixaban (Eliquis) 10 mg PO BID [facility] Stop: 01/15/20 18:01 Last Admin: 01/11/20 16:44 Dose: 10 mg Documented by: Apixaban (Eliquis) 5 mg PO BID [facility] Stop: 04/15/20 06:01 Aspirin (Aspirin, Baby) 81 mg PO DAILY@0800 [facility] Last Admin: 01/11/20 08:13 Dose: 81 mg Documented by: Bisacodyl (Dulcolax) 10 mg RECTAL DAILY PRN PRN Reason: Constipation Cholecalciferol (Vitamin D (25mcg)) 5,000 unit PO DAILY [facility] Last Admin: 01/11/20 04:11 Dose: 5,000 unit Documented by: Diclofenac Sodium (Voltaren) 0 gm TP 4X/DAY PRN PRN PRN Reason: MUSCLE ACHES Last Admin: 12/21/19 16:26 Dose: 100 gm Documented by: Furosemide (Lasix) 40 mg IV BID@0600,1400 [facility] Stop: 01/19/20 06:01 Glucagon () 1 mg IM .X1 PRN PRN Reason: Hypoglycemia Heparin Sodium (Beef Lung) () 50 units IV UD PRN PRN Reason: PICC Line Heparin Flush Last Admin: 01/01/20 14:24 Dose: 50 units Documented by: Ertapenem 1 gm/ Sodium (Chloride) 50 mls @ 100 mls/hr IV Q24 [facility] Stop: 01/23/20 23:59 Last Infusion: 01/11/20 11:10 Dose: Infused Documented by: Vancomycin IV Pharmacy to Dose (1 ea/ Sodium Chloride) 250 mls @ 1 mls/hr IV PRN PRN Sodium Chloride () 250 mls @ 15 mls/hr IV .[id number] PRN PRN Reason: Saline Flush Last Infusion: 01/10/20 16:52 Dose: 0 mls/hr Documented by: Vancomycin HCl 750 mg/ Sodium (Chloride) 265 mls @ 250 mls/hr IV Q12H [facility] Stop: 01/23/20 17:04 Last Infusion: 01/11/20 17:03 Dose: Infused Documented by: Ketoconazole (Nizoral) 1 applic TOPICAL BID [facility]; Protocol Last Admin: 01/11/20 16:46 Dose: Not Given Documented by: Lactobacillus Acidophilus (Acidophilus) 1 tablet PO BID [facility] Last Admin: 01/11/20 16:44 Dose: 1 tablet Documented by: Nutritional Formula (Singh - [place] Flavor) [facility] Last Admin: 01/11/20 16:30 Dose: 1 packet Documented by: Oxycodone HCl (Oxyir) 10 mg PO Q4H [facility] Last Admin: 01/11/20 20:15 Dose: 10 mg Documented by: Polyethylene Glycol (Miralax) 17 gm PO DAILY [facility] Last Admin: 01/11/20 04:02 Dose: 17 gm Documented by: Potassium Chloride (K-Dur) 20 meq PO BIDCM [facility] Stop: 01/15/20 17:01 Last Admin: 01/11/20 16:33 Dose: 20 meq Documented by: Senna/Docusate Sodium (Senokot-S, Shahana-Colace) 2 tablet PO BID [facility] Last Admin: 01/11/20 16:33 Dose: 2 tablet Documented by: Sodium Chloride () 10 - 40 ml IV UD PRN PRN Reason: Open End PICC Flush Last Admin: 01/11/20 17:41 Dose: 20 ml Documented by: Sodium Chloride (0.9% Nacl (Sterile) Posiflush) 10 - 40 ml IV UD PRN PRN Reason: Port access or dressing change Last Admin: 12/18/19 05:44 Dose: 40 ml Documented by: Tramadol HCl (Ultram) 50 mg PO Q6H PRN PRN PRN Reason: Pain Score 4-5/10 Last Admin: 12/26/19 05:55 Dose: 50 mg Documented by: Venlafaxine HCl (Effexor Xr) 75 mg PO DAILY [facility] Last Admin: 01/11/20 04:12 Dose: 75 mg Documented by: Assessment/Plan All Active Problems Osteomyelitis of foot, right, acute (Acute) Cellulitis of foot, right (Acute) Type 2 diabetes mellitus with diabetic polyneuropathy (Acute) Debility (Acute) Open wound of right heel (Acute) Foot osteomyelitis, right (Acute) Venous ulcer of right lower extremity without varicose veins (Resolved) Varicose veins of right lower extremity with ulcer (Resolved) 69 year old male with below past medical history hospitalized right heel osteomyelitis, underwent debridement 12/12/[address] Good, cultures growing s. epi, corynebacterium, amputation recommended but patient refuses, admitted to TCU with debility, here for rehabilitation, strengthening, intravenous antibiotics, prior to discharge home with . * Debility - PT/OT. * Pain - Tylenol 1000MG Q6H PRN pain (1-3), Tramadol 50MG Q6H PRN pain (4-5), Oxycodone 10MG Q4H scheduled, Voltaren gel 4x/day PRN. * Bowel - Miralax 17GM daily, Senna/colace 2 tablets BID, Dulcolax 10MG NM daily PRN. * Adult immunization - Administer Prevnar 13, Pneumovax 23, Fluzone as appropriate. * DVT prophylaxis - Not necessary, on Eliquis. * PAOD - Aspirin 81MG daily. * Vitamin D deficiency - D3 5000IU daily. * Right foot osteomyelitis - Invanz 1GM IV Q24H, Vancomycin 750MG IV Q12 thru 01/23/2020, consult Dr. Holt. Right foot amputation or right BKA recommended. * GI prophylaxis - Lactobacillus 1 tablet twice daily. * Diabetes Mellitus II - diet controlled, Glucagon 1MG IM x 1 PRN hypoglycemia. * GERD - Mylanta II 30ML Q6H PRN. * Right heel wound - Singh 1 packet twice daily, Wound Vac, followed by [facility], Right foot amputation or right BKA recommended. * Depression - Venlafaxine XR 75MG daily. * Acute DVT Left upper extremity - Eliquis 10MG twice daily thru 01/15/2020, then Eliquis 5MG twice daily. * Edema - Lasix 40MG IV BID thru 01/19/2020. * Tinea Corporis - Nizoral topical twice daily. * Dry Eyes - Artificial Tears 2GTT OU Q1H PRN. * Hypokalemia - KCL 20MEQ twice daily.
[2020-01-12] MEDS: oxyCODONE 5 MG Tablet 10 MG PO ×6 (00:43→21:04)
[2020-01-12] MEDS: Alteplase 2 MG/2 ML Vial IV (01:49)
[2020-01-12] MEDS: Polyethylene Glycol 3350 17 GM PACKET PO (04:00)
[2020-01-12] MEDS: Senna/Docusate Sodium 1 Tablet 2 TABLET PO ×2 (04:00→16:37)
[2020-01-12] MEDS: Venlafaxine XR 75 MG Capsule PO (04:00)
[2020-01-12] MEDS: APIXABAN 5 MG TABLET 10 MG PO ×2 (04:00→16:45)
[2020-01-12] MEDS: Ketoconazole Cream 1 APPLIC TOPICAL (04:14)
[2020-01-12] MEDS: 0.9% Saline Lock 10 ML Syringe IV ×4 (04:15→15:54)
[2020-01-12 04:16] VITALS: BP 120/62; PULSE 69; RESP 16; TEMP 36.8; O2SAT 94
[2020-01-12 06:35] LABS: Bedside Glucose 128 mg/dL (70-110)
[2020-01-12] MEDS: Furosemide 40 MG/4 ML Vial IV (06:47)
[2020-01-12] MEDS: Aspirin 81 MG TAB.CHEW PO (08:11)
--- NOTE | 2020-01-12 11:49 | NURSING ---
pt stated he updates his every day.
[2020-01-12 14:03] VITALS: BP 135/69; PULSE 76; RESP 17; TEMP 36.6; O2SAT 95
--- NOTE | 2020-01-12 22:05 | PCA ---
this administrative staff supervisor went in to ask if pt wanted to wash up and change chothes and pt said he didnt want to do anything but wanted fresh ice water and ice cream so I got him some.
[2020-01-13] MEDS: oxyCODONE 5 MG Tablet 10 MG PO ×6 (00:32→19:49)
[2020-01-13] MEDS: 0.9% Saline Lock 10 ML Syringe IV ×3 (00:33→15:49)
[2020-01-13 04:00] VITALS: BP 145/57; PULSE 61; RESP 16; TEMP 36.6; O2SAT 96
[2020-01-13 05:33] LABS: Absolute Lymphocyte Count 1.41 X10^3/uL (0.83-4.51); Absolute Neutrophil Count 2.7 X10^3/uL (2.0-7.7); Basophil# 0.08 X10^3/uL; Basophil% 1.6 % (0-1); Eosinophil# 0.31 X10^3/uL; Eosinophils% 6.2 % (0-5); Hematocrit 41.4 % (40-54); Hemoglobin 13.3 g/dL (13.0-16.5); Lymphocyte # 1.41 X10^3/ul (4.0); Mean Corp Hgb Conc 32.1 g/dL (32-36); Mean Corpuscular Hgb 31.2 pg (27.0-32.0); Mean Corpuscular Volume 97.2 fL (80-94); Mean Platelet Vol. 9.4 fl (6.2-12.0); Monocyte# 0.56 X10^3/uL; Monocyte% 11.1 % (0-10); NRBC Flagged by Analyzer 0 % (0-5); Neutrophil # 2.67 X10^3/uL (2.7-7.7); Neutrophil % 52.9 % (47-70); POSITIVE MORPHOLOGY YES; Platelet Count 179 K/mm3 (150-450); RBC Distribution Width CV 13.3 % (11.6-14.6); RBC Distribution Width SD 47.8 fl (35.1-43.9); Red Blood Count 4.26 M/mm3 (4.6-6.2)
[2020-01-13 05:34] LABS: Differential Indicated SCAN CRITERIA MET
[2020-01-13 05:46] LABS: Erythrocyte Sedimentation Rate 25 mm/hr (0-20)
[2020-01-13 05:58] LABS: AST(SGOT) 17 U/L (15-37); Alanine Aminotransfer ALT/SGPT 28 U/L (16-61); Albumin, Serum 3.1 g/dL (3.2-5.0); Alkaline Phosphatase 94 U/L (45-117); Anion Gap 4 (5-15); BUN 43 mg/dL (7-18); BUN/Creat Ratio 37.7 RATIO (10-20); Bilirubin, Direct 0.11 mg/dL (0.00-0.30); Calcium,Total 8.5 mg/dL (8.5-10.1); Chloride 103 mmol/L (98-107); Creatinine, Serum 1.14 mg/dL (0.70-1.30); EST Glomerular Filtration Rate 68 mL/min (>60); Est Glom Filt Rate - Afr Amer 82 mL/min (>60); Estimated Creatinine Clearance 59.17 ml/min; Globulin 3.9 g/dL (2.2-4.2); Glucose 125 mg/dL (74-106); Sodium Level 136 mmol/L (136-145)
[2020-01-13] MEDS: Polyethylene Glycol 3350 17 GM PACKET PO (06:02)
[2020-01-13] MEDS: Venlafaxine XR 75 MG Capsule PO (06:04)
[2020-01-13] MEDS: APIXABAN 5 MG TABLET 10 MG PO ×2 (06:04→17:09)
[2020-01-13] MEDS: Senna/Docusate Sodium 1 Tablet 2 TABLET PO ×2 (06:04→17:10)
[2020-01-13 06:18] LABS: Differential Comment SCANNED
[2020-01-13 06:31] LABS: Bedside Glucose 117 mg/dL (70-110)
[2020-01-13] MEDS: Aspirin 81 MG TAB.CHEW PO (08:02)
[2020-01-13 13:53] VITALS: BP 128/61; PULSE 66; RESP 15; TEMP 36.6; O2SAT 94
--- NOTE | 2020-01-13 14:36 | NURSING ---
wound photo: right heel
[2020-01-13] MEDS: Ketoconazole Cream 1 APPLIC TOPICAL (17:10)
[2020-01-13 19:53] VITALS: PULSE 80; RESP 16; O2SAT 98
--- NOTE | 2020-01-13 23:04 | PCA ---
This radiology equipment servicer went in to see if pt was ready to get washed up and change in to his Pjs and pt refused to wash and change out of clothes.I got him fresh ice water and ice cream.
[2020-01-14 04:00] VITALS: BP 131/67; PULSE 74; RESP 16; TEMP 36.8; O2SAT 97
[2020-01-14] MEDS: oxyCODONE 5 MG Tablet 10 MG PO ×6 (04:10→23:54)
[2020-01-14] MEDS: 0.9% Saline Lock 10 ML Syringe IV ×3 (04:18→16:55)
[2020-01-14] MEDS: APIXABAN 5 MG TABLET 10 MG PO ×2 (04:19→17:34)
[2020-01-14] MEDS: Senna/Docusate Sodium 1 Tablet 2 TABLET PO ×2 (04:19→17:35)
[2020-01-14] MEDS: Venlafaxine XR 75 MG Capsule PO (04:19)
[2020-01-14 06:35] LABS: Bedside Glucose 148 mg/dL (70-110)
[2020-01-14] MEDS: Aspirin 81 MG TAB.CHEW PO (07:45)
[2020-01-14 10:00] VITALS: RESP 16
[2020-01-14 14:09] VITALS: BP 119/54; PULSE 58; RESP 16; TEMP 36.7; O2SAT 92
[2020-01-14 16:48] LABS: Vancomycin, Trough Level 16.7 ug/mL (5.0-15.0)
[2020-01-14] MEDS: Ketoconazole Cream 1 APPLIC TOPICAL (17:34)
--- NOTE | 2020-01-14 19:09 | PCM.RX.CS ---
Consult Pharmacy has been consulted to manage selected antiobiotic: Vancomycin Type of Consult: Follow-up Suspected Infection: Osteomyelitis Prior Doses of Antibiotics Received/Current Regimen: On 750mg iv q12h. Labs: Sodium 136 mmol/L (136-145) 01/13/20 05:00 Potassium 4.0 mmol/L (3.5-5.1) 01/13/20 05:00 Chloride 103 mmol/L (98-107) 01/13/20 05:00 Carbon Dioxide 29.0 mmol/L (21.0-32.0) 01/13/20 05:00 Anion Gap 4 (5-15) L 01/13/20 05:00 BUN 43 mg/dL (7-18) H 01/13/20 05:00 Creatinine 1.14 mg/dL (0.70-1.30) 01/13/20 05:00 Est GFR (MDRD) Af Amer 82 mL/min (>60) 01/13/20 05:00 Est GFR (MDRD) Non-Af 68 mL/min (>60) 01/13/20 05:00 BUN/Creatinine Ratio 37.7 RATIO (10-20) H 01/13/20 05:00 Glucose 125 mg/dL (74-106) H 01/13/20 05:00 Vancomycin Trough 16.7 ug/mL (5.0-15.0) H 01/14/20 15:57 Weight used for dosin.7 kg Estimated Creatinine Clearance: 59ml/min Goal Trough: 15-20 mcg/mL Pharmacy Plan for Drug Dosing: Trough today 16.7 (goal range 15-20mcg/ml). Will continue same dose and repeat trough level in 1 week on 01.21.20. Pharmacy Service will continue to monitor and adjust dosing as required. Follow-Up Labs: Trough Vancomycin - 01.21.20 @1530 before 1600 dose
[2020-01-15] MEDS: oxyCODONE 5 MG Tablet 10 MG PO ×5 (03:39→20:51)
[2020-01-15 03:43] VITALS: BP 130/60; PULSE 59; RESP 14; TEMP 36.6; O2SAT 93
[2020-01-15 06:15] LABS: Bedside Glucose 122 mg/dL (70-110)
[2020-01-15] MEDS: Polyethylene Glycol 3350 17 GM PACKET PO (06:28)
[2020-01-15] MEDS: Senna/Docusate Sodium 1 Tablet 2 TABLET PO ×2 (06:32→17:26)
[2020-01-15] MEDS: Venlafaxine XR 75 MG Capsule PO (06:32)
[2020-01-15] MEDS: APIXABAN 5 MG TABLET 10 MG PO ×2 (06:32→17:26)
[2020-01-15] MEDS: Lidocaine 2% Jelly 1 APPLIC Tube TOPICAL (06:33)
--- NOTE | 2020-01-15 07:10 | PN_ITS ---
Patient Problems: Active and Suspected Problems Debility (Acute) Open wound of right heel (Acute) Foot osteomyelitis, right (Acute) Subjective: This 69-year-old male was seen bedside for right plantar chronic heel ulcer. He denies fever, chill, vomiting. He reports intermittent nausea that is not present this morning. He has significant reduction in pain to the ulcer site. He is residing in the transitional care unit at this time he has been working with physical therapy and receiving IV antibiotics for treatment of presumed osteomyelitis. - Physical Exam Vitals/I&O's: Vital Signs Temp Pulse Resp BP Pulse Ox 97.9 F 59 L 14 130/60 H 93 01/15/20 03:43 01/15/20 03:43 01/15/20 03:43 01/15/20 03:43 01/15/20 03:43 Oxygen Flow Rate (L/min) 96 Oxygen Delivery Method Room Air Weight: 80.739 kg Body Mass Index (BMI) 25.2 Intake and Output for Last 24 Hours 01/13/20 01/14/20 01/15/20 23:59 23:59 23:59 Intake Total 1292.25 / 1292.25 1319.75 / 1319.75 294.17 / 294.17 Balance 1292.25 / 1292.25 1319.75 / 1319.75 294.17 / 294.17 General: Alert, Oriented x3, Cooperative Extremities: No cyanosis, Capillary Refill Less than 3 Seconds - digits right foot, No Calf Tenderness - negative keeley and weathers signs right, Diminished Peripheral Pulses, Edema - very mild, Tenderness - with ulcer manipulation. no bogginess or fluctuance Skin: Ulcer/ Wound - No purulence, erythema, streaking, odor, infection. The adjacent skin is hairless and atrophic. The ulcer bed has a granular base and there is no longer any visualized or exposed bone or probe to bone. There is no undermining. Musculoskeletal: Muscle Wasting Neurological: Sensory exam intact to light touch and pain Psych/Mental Status: Normal Affect, Appropriate Laboratory Results 01/14/20 15:57: Vancomycin Trough 16.7 H 01/15/20 05:57: POC Glucose 122 H Current Medications Acetaminophen (Tylenol) 1,000 mg PO Q6H PRN PRN PRN Reason: Pain Score 1-3/10 Last Admin: 12/21/19 16:54 Dose: 1,000 mg Documented by: Al Hydroxide/Mg Hydroxide (Mylanta Ii) 30 ml PO Q6H PRN PRN PRN Reason: Gastric Burning Apixaban (Eliquis) 10 mg PO BID [facility] Stop: 01/15/20 18:01 Last Admin: 01/15/20 06:32 Dose: 10 mg Documented by: Apixaban (Eliquis) 5 mg PO BID [facility] Stop: 04/15/20 06:01 Aspirin (Aspirin, Baby) 81 mg PO DAILY@0800 [facility] Last Admin: 01/14/20 07:45 Dose: 81 mg Documented by: Bisacodyl (Dulcolax) 10 mg RECTAL DAILY PRN PRN Reason: Constipation Cholecalciferol (Vitamin D (25mcg)) 5,000 unit PO DAILY [facility] Last Admin: 01/15/20 06:32 Dose: 5,000 unit Documented by: Diclofenac Sodium (Voltaren) 0 gm TP 4X/DAY PRN PRN PRN Reason: MUSCLE ACHES Last Admin: 12/21/19 16:26 Dose: 100 gm Documented by: Glucagon () 1 mg IM .X1 PRN PRN Reason: Hypoglycemia Heparin Sodium (Beef Lung) () 50 units IV UD PRN PRN Reason: PICC Line Heparin Flush Last Admin: 01/01/20 14:24 Dose: 50 units Documented by: Ertapenem 1 gm/ Sodium (Chloride) 50 mls @ 100 mls/hr IV Q24 [facility] Stop: 01/23/20 23:59 Last Infusion: 01/14/20 11:00 Dose: Infused Documented by: Vancomycin IV Pharmacy to Dose (1 ea/ Sodium Chloride) 250 mls @ 1 mls/hr IV PRN PRN Sodium Chloride () 250 mls @ 15 mls/hr IV .[id number] PRN PRN Reason: Saline Flush Last Infusion: 01/15/20 04:55 Dose: 0 mls/hr Documented by: Vancomycin HCl 750 mg/ Sodium (Chloride) 265 mls @ 250 mls/hr IV Q12H [facility] Stop: 01/23/20 17:04 Last Infusion: 01/15/20 04:48 Dose: Infused Documented by: Ketoconazole (Nizoral) 1 applic TOPICAL BID [facility]; Protocol Last Admin: 01/15/20 06:32 Dose: Not Given Documented by: Lactobacillus Acidophilus (Acidophilus) 1 tablet PO BID [facility] Last Admin: 01/15/20 06:32 Dose: 1 tablet Documented by: Lidocaine HCl (Lidocaine Hcl 1% Sdv) 30 ml INFILT PRN ONE Stop: 01/15/20 08:01 Nutritional Formula (Singh - Neon Flavor) [facility] Last Admin: 01/14/20 16:01 Dose: 1 packet Documented by: Oxycodone HCl (Oxyir) 10 mg PO Q4H [facility] Last Admin: 01/15/20 03:39 Dose: 10 mg Documented by: Polyethylene Glycol (Miralax) 17 gm PO DAILY [facility] Last Admin: 01/15/20 06:28 Dose: 17 gm Documented by: Senna/Docusate Sodium (Senokot-S, Shahana-Colace) 2 tablet PO BID [facility] Last Admin: 01/15/20 06:32 Dose: 2 tablet Documented by: Sodium Chloride () 10 - 40 ml IV UD PRN PRN Reason: Open End PICC Flush Last Admin: 01/14/20 16:55 Dose: 10 ml Documented by: Sodium Chloride (0.9% Nacl (Sterile) Posiflush) 10 - 40 ml IV UD PRN PRN Reason: Port access or dressing change Last Admin: 12/18/19 05:44 Dose: 40 ml Documented by: Tramadol HCl (Ultram) 50 mg PO Q6H PRN PRN PRN Reason: Pain Score 4-5/10 Last Admin: 12/26/19 05:55 Dose: 50 mg Documented by: Venlafaxine HCl (Effexor Xr) 75 mg PO DAILY [facility] Last Admin: 01/15/20 06:32 Dose: 75 mg Documented by: Medical Necessity - Tobacco Use Smoking Status: Never smoker Tobacco Use: Non-smoker Assessment/Plan All Active Problems Osteomyelitis of foot, right, acute (Acute) Cellulitis of foot, right (Acute) Type 2 diabetes mellitus with diabetic polyneuropathy (Acute) Debility (Acute) Open wound of right heel (Acute) Foot osteomyelitis, right (Acute) Venous ulcer of right lower extremity without varicose veins (Resolved) Varicose veins of right lower extremity with ulcer (Resolved) 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 There is noted continued improvement to the heel. There are no local signs of infection. He is afebrile and his vital signs remained stable. His last labs were performed on and he did not demonstrate leukocytosis at that time (WBC 5.0) and ESR 25. Debridement was performed with 15 blade scalpel after verbal consent including subcutaneous excision to remove fiborus tissue, devitalized subcutaneous tissue, biofilm, and slough. The pre debridement measurement was 0.8 x 1.0 x 0.6 cm and post debridement 0.9 x 1.0 x 0.6 cm. Local anesthesia was provided including injectable (5 cc of 1% lidocaine plain administered as right infiltra tive subdermal manner) and topical 2% lidocaine plain gel anesthesia. He tolerated this well. A dry gauze dressing was placed until the wound VAC can be reapplied today (150 mmHg continuous). To continue strict offloading to the right lower extremity. Infectious disease is on consultation. He will complete an extended course of IV vancomycin and ertapenem with a stop date of 01-23-2020. The microbiology results of the calcaneus bone biopsy demonstrated Staphylococcus epidermidis and Propionibacterium acnes. The pathology results of the calcaneus bone biopsy was negative for acute osteomyelitis. Microbiology results for the post debridement and post irrigation wound demonstrated no additional bacterial growth. Healing capability is guarded given his poor circulation. He will continue to follow up with Dr. Navas in the out patient setting. Nutrition optimization was reviewed and encouraged to residential roofer helper his healing process. He will also continue to work with therapy to improve his ability to safely return home with less assistance. The podiatry team will follow him weekly while in house. Please not hesitate to call if you have any questions. Jenniffer Good DPM, [facility] [phone]
[2020-01-15] MEDS: Aspirin 81 MG TAB.CHEW PO (07:50)
--- NOTE | 2020-01-15 08:56 | NURSING ---
IN TO SEE PT TODAY FOR RIGHT FOOT.
[2020-01-15] MEDS: 0.9% Saline Lock 10 ML Syringe IV ×2 (10:18→16:21)
--- NOTE | 2020-01-15 11:32 | NURSING ---
pt stated to this nurse he updates .
--- NOTE | 2020-01-15 11:37 | NURSING ---
wound vac reapplied by opal pinto/wound nurse.
[2020-01-15 14:13] VITALS: BP 130/62; PULSE 69; RESP 16; TEMP 37.1; O2SAT 97
[2020-01-15] MEDS: Ketoconazole Cream 1 APPLIC TOPICAL (17:24)
[2020-01-15 20:50] VITALS: PULSE 78; RESP 18
--- NOTE | 2020-01-16 00:42 | PCA ---
ask pt if he wanted to do pm care tonight and change his clothes and he refused He just wanted to have fresh ice water and ice cream
[2020-01-16] MEDS: Senna/Docusate Sodium 1 Tablet 2 TABLET PO ×2 (03:22→17:43)
[2020-01-16] MEDS: oxyCODONE 5 MG Tablet 10 MG PO ×5 (03:22→20:36)
[2020-01-16] MEDS: Venlafaxine XR 75 MG Capsule PO (03:23)
[2020-01-16] MEDS: APIXABAN 5 MG TABLET PO ×2 (03:23→17:42)
[2020-01-16] MEDS: 0.9% Saline Lock 10 ML Syringe IV ×3 (03:26→17:42)
[2020-01-16 04:00] VITALS: BP 125/70; PULSE 72; RESP 16; TEMP 36.9; O2SAT 98
[2020-01-16 06:30] LABS: Bedside Glucose 129 mg/dL (70-110)
[2020-01-16] MEDS: Aspirin 81 MG TAB.CHEW PO (08:37)
[2020-01-16 10:00] VITALS: PULSE 72; RESP 16; O2SAT 97
--- NOTE | 2020-01-16 13:05 | NURSING ---
Pt denied need for staff to call family.
[2020-01-16 14:11] VITALS: BP 151/66; PULSE 60; RESP 16; TEMP 36.6; O2SAT 95
[2020-01-17] MEDS: oxyCODONE 5 MG Tablet 10 MG PO ×6 (01:11→20:09)
[2020-01-17] MEDS: DICLOFENAC SODIUM 100 GM GEL..GRAM. TP ×2 (01:12→09:04)
[2020-01-17 03:09] VITALS: BP 124/57; PULSE 60; RESP 16; TEMP 36.8; O2SAT 97
[2020-01-17] MEDS: 0.9% Saline Lock 10 ML Syringe IV ×3 (03:11→09:02)
[2020-01-17] MEDS: Senna/Docusate Sodium 1 Tablet 2 TABLET PO ×2 (03:13→17:55)
[2020-01-17] MEDS: Venlafaxine XR 75 MG Capsule PO (03:13)
[2020-01-17] MEDS: APIXABAN 5 MG TABLET PO ×2 (03:14→17:55)
[2020-01-17 06:26] LABS: Bedside Glucose 120 mg/dL (70-110)
--- NOTE | 2020-01-17 06:57 | NURSING ---
Monitor clamps on PICC lines they are not stating clamped good blood return from both lumens. Rn made aware.
[2020-01-17] MEDS: Aspirin 81 MG TAB.CHEW PO (08:51)
[2020-01-17 08:54] VITALS: RESP 18
[2020-01-17 14:15] VITALS: BP 141/62; PULSE 66; RESP 14; TEMP 36.8; O2SAT 94
--- NOTE | 2020-01-17 21:45 | PCA ---
pt refused to do any pm care robert just wanted to have fresh ice water and some ice cream
[2020-01-18] MEDS: oxyCODONE 5 MG Tablet 10 MG PO ×5 (03:24→19:55)
[2020-01-18] MEDS: APIXABAN 5 MG TABLET PO ×2 (03:24→17:04)
[2020-01-18] MEDS: Senna/Docusate Sodium 1 Tablet 2 TABLET PO ×2 (03:24→17:04)
[2020-01-18] MEDS: Venlafaxine XR 75 MG Capsule PO (03:24)
[2020-01-18] MEDS: 0.9% Saline Lock 10 ML Syringe IV ×4 (03:25→19:55)
[2020-01-18 03:33] VITALS: BP 131/66; PULSE 68; RESP 16; TEMP 36.5; O2SAT 97
[2020-01-18 06:26] LABS: Bedside Glucose 114 mg/dL (70-110)
[2020-01-18] MEDS: Aspirin 81 MG TAB.CHEW PO (08:06)
--- NOTE | 2020-01-18 09:47 | NURSING ---
pt giving up date to at this time by phone.
[2020-01-18 10:25] VITALS: PULSE 69; RESP 18; O2SAT 98
--- NOTE | 2020-01-18 11:51 | NURSING ---
wound photo: right heel
[2020-01-18 13:45] VITALS: BP 124/54; PULSE 63; RESP 14; TEMP 36.5; O2SAT 92
--- NOTE | 2020-01-18 18:21 | NURSING ---
NO BLOOD RETURN ON RED LINE,GOOD FLUSH. CAP CHANGED,STILL NO BLOOD RETURN. RN AWARE.
--- NOTE | 2020-01-18 22:56 | PCA ---
pt refused to do any pm care robert just wanted fresh ice water and ice cream
[2020-01-19] MEDS: oxyCODONE 5 MG Tablet 10 MG PO ×6 (00:21→20:44)
[2020-01-19] MEDS: Venlafaxine XR 75 MG Capsule PO (04:10)
[2020-01-19] MEDS: Senna/Docusate Sodium 1 Tablet 2 TABLET PO ×2 (04:10→16:51)
[2020-01-19] MEDS: APIXABAN 5 MG TABLET PO ×2 (04:10→16:51)
[2020-01-19] MEDS: 0.9% Saline Lock 10 ML Syringe IV ×3 (04:12→16:13)
[2020-01-19 04:20] VITALS: BP 135/61; PULSE 59; RESP 16; TEMP 36.9; O2SAT 93
[2020-01-19 06:25] LABS: Bedside Glucose 129 mg/dL (70-110)
[2020-01-19] MEDS: Aspirin 81 MG TAB.CHEW PO (07:51)
--- NOTE | 2020-01-19 09:40 | NURSING ---
Per opal pinto/wound nurse. pt will be going home saturday with a home wound vac and will apply it on saturday. per dr. evin muñoz. opal aware
--- NOTE | 2020-01-19 10:08 | PN.ID_ITS ---
Patient Problems: Active and Suspected Problems Debility (Acute) Open wound of right heel (Acute) Foot osteomyelitis, right (Acute) Subjective: Feeling better, foot improving, no fever, no n/v/d. - Physical Exam Vitals/I&O's: Vital Signs Temp Pulse Resp BP Pulse Ox 98.5 F 59 L 16 135/61 H 93 01/19/20 04:20 01/19/20 04:20 01/19/20 04:20 01/19/20 04:20 01/19/20 04:20 Oxygen Flow Rate (L/min) 96 Oxygen Delivery Method Room Air Weight: 84.113 kg Body Mass Index (BMI) 25.2 Intake and Output for Last 24 Hours 01/17/20 01/18/20 01/19/20 23:59 23:59 23:59 Intake Total 1225 / 1225 1707.5 / 1707.5 745 / 745 Balance 1225 / 1225 1707.5 / 1707.5 745 / 745 General: Alert, Cooperative, No apparent distress Lungs: Clear to auscultation, Normal air movement Cardiovascular: Regular rate, Regular Rhythm Abdomen: Soft, Non Tender, Non-Distended Skin: No rashes Laboratory Results 01/19/20 06:07: POC Glucose 129 H Current Medications Acetaminophen (Tylenol) 1,000 mg PO Q6H PRN PRN PRN Reason: Pain Score 1-3/10 Last Admin: 12/21/19 16:54 Dose: 1,000 mg Documented by: Al Hydroxide/Mg Hydroxide (Mylanta Ii) 30 ml PO Q6H PRN PRN PRN Reason: Gastric Burning Apixaban (Eliquis) 5 mg PO BID [facility] Stop: 04/15/20 06:01 Last Admin: 01/19/20 04:10 Dose: 5 mg Documented by: Aspirin (Aspirin, Baby) 81 mg PO DAILY@0800 [facility] Last Admin: 01/19/20 07:51 Dose: 81 mg Documented by: Bisacodyl (Dulcolax) 10 mg RECTAL DAILY PRN PRN Reason: Constipation Cholecalciferol (Vitamin D (25mcg)) 5,000 unit PO DAILY [facility] Last Admin: 01/19/20 04:10 Dose: 5,000 unit Documented by: Diclofenac Sodium (Voltaren) 0 gm TP 4X/DAY PRN PRN PRN Reason: MUSCLE ACHES Last Admin: 01/17/20 09:04 Dose: 100 gm Documented by: Glucagon () 1 mg IM .X1 PRN PRN Reason: Hypoglycemia Heparin Sodium (Beef Lung) () 50 units IV UD PRN PRN Reason: PICC Line Heparin Flush Last Admin: 01/18/20 19:58 Dose: 50 units Documented by: Ertapenem 1 gm/ Sodium (Chloride) 50 mls @ 100 mls/hr IV Q24 [facility] Stop: 01/23/20 23:59 Last Infusion: 01/18/20 10:32 Dose: Infused Documented by: Vancomycin IV Pharmacy to Dose (1 ea/ Sodium Chloride) 250 mls @ 1 mls/hr IV PRN PRN Sodium Chloride () 250 mls @ 15 mls/hr IV .[id number] PRN PRN Reason: Saline Flush Last Infusion: 01/18/20 04:50 Dose: 0 mls/hr Documented by: Vancomycin HCl 750 mg/ Sodium (Chloride) 265 mls @ 250 mls/hr IV Q12H [facility] Stop: 01/23/20 17:04 Last Infusion: 01/19/20 05:19 Dose: Infused Documented by: Ketoconazole (Nizoral) 1 applic TOPICAL BID [facility]; Protocol Last Admin: 01/19/20 04:18 Dose: Not Given Documented by: Lactobacillus Acidophilus (Acidophilus) 1 tablet PO BID [facility] Last Admin: 01/19/20 04:10 Dose: 1 tablet Documented by: Nutritional Formula (Singh - [place] Flavor) 1 packet PO BIDCM [facility] Last Admin: 01/19/20 07:51 Dose: 1 packet Documented by: Oxycodone HCl (Oxyir) 10 mg PO Q4H [facility] Last Admin: 01/19/20 07:55 Dose: 10 mg Documented by: Polyethylene Glycol (Miralax) 17 gm PO DAILY [facility] Last Admin: 01/19/20 04:16 Dose: Not Given Documented by: Senna/Docusate Sodium (Senokot-S, Shahana-Colace) 2 tablet PO BID [facility] Last Admin: 01/19/20 04:10 Dose: 2 tablet Documented by: Sodium Chloride () 10 - 40 ml IV UD PRN PRN Reason: Open End PICC Flush Last Admin: 01/19/20 04:12 Dose: 20 ml Documented by: Sodium Chloride (0.9% Nacl (Sterile) Posiflush) 10 - 40 ml IV UD PRN PRN Reason: Port access or dressing change Last Admin: 12/18/19 05:44 Dose: 40 ml Documented by: Tramadol HCl (Ultram) 50 mg PO Q6H PRN PRN PRN Reason: Pain Score 4-5/10 Last Admin: 12/26/19 05:55 Dose: 50 mg Documented by: Venlafaxine HCl (Effexor Xr) 75 mg PO DAILY [facility] Last Admin: 01/19/20 04:10 Dose: 75 mg Documented by: Medical Necessity - Tobacco Use Smoking Status: Never smoker Tobacco Use: Non-smoker Route of nutrition/ use of supplements: [] Nutritional Intake: [] IV Site: [] Baires Catheter: [] - Assessment/Plan Antibiotics: [] Assessment/Plan: [] Active and Suspected Problems Debility (Acute) Open wound of right heel (Acute) Foot osteomyelitis, right (Acute) R heel osteo with DM neuropathy and PAD - bone bx and debridement by Dr. Good 12/12/19. Surg cx with MRSE and corynebacteria. Prior cxs with anaerobes and enterobacter and P. acnes as well. On vanc/ertapenem, stop date 01/23/20, weekly bmp, cbc, LFT, esr, and vanc trough. Ok for picc removal and stopping abx 01/23/20. Will follow as needed, please call with any ?s
--- NOTE | 2020-01-19 10:33 | NURSING ---
PT STATED HE WILL UP DATE HIS .
[2020-01-19 14:08] VITALS: BP 128/59; PULSE 104; RESP 16; TEMP 36.9; O2SAT 92
--- NOTE | 2020-01-19 14:37 | CASEMGMT ---
Addendum entered by Gina Daniel 01/22/20 17:04: [facility] unable to take wound currently. Referred to [facility] - SOC 01/24. Addendum entered by Gina Daniel 01/20/20 16:20: Added order SW. Addendum entered by Gina Daniel 01/20/20 15:43: Patient chose [facility]. Referral made for PT/OT/SN. Original Note: Social Work Spoke with pt about DC 01/23. Pt agreeable. Dr Good would like pt to DC home with wound vac. Will order [facility]. Pt unsure of agency - provided list. No DME needs. Will continue to follow. MAXIM Lopez PROPULSION ENGINEER
[2020-01-19] MEDS: Ketoconazole Cream 1 APPLIC TOPICAL (16:50)
[2020-01-19 20:45] VITALS: PULSE 78; RESP 16; O2SAT 98
[2020-01-20] MEDS: Senna/Docusate Sodium 1 Tablet 2 TABLET PO ×2 (03:37→17:05)
[2020-01-20] MEDS: oxyCODONE 5 MG Tablet 10 MG PO ×5 (03:38→20:13)
[2020-01-20] MEDS: APIXABAN 5 MG TABLET PO ×2 (03:38→17:05)
[2020-01-20] MEDS: Venlafaxine XR 75 MG Capsule PO (03:38)
[2020-01-20] MEDS: 0.9% Saline Lock 10 ML Syringe IV ×3 (03:40→18:41)
[2020-01-20 04:00] VITALS: BP 125/68; PULSE 77; RESP 16; TEMP 37; O2SAT 95
[2020-01-20 05:52] LABS: Absolute Lymphocyte Count 1.21 X10^3/uL (0.83-4.51); Absolute Neutrophil Count 3.8 X10^3/uL (2.0-7.7); Basophil# 0.07 X10^3/uL; Basophil% 1.2 % (0-1); Eosinophil# 0.26 X10^3/uL; Eosinophils% 4.4 % (0-5); Hematocrit 36.1 % (40-54); Hemoglobin 12.3 g/dL (13.0-16.5); Lymphocyte # 1.21 X10^3/ul (4.0); Lymphocyte % 20.4 % (19-41); Mean Corp Hgb Conc 34.1 g/dL (32-36); Mean Corpuscular Volume 96.8 fL (80-94); Mean Platelet Vol. 9.6 fl (6.2-12.0); Monocyte# 0.56 X10^3/uL; Monocyte% 9.4 % (0-10); NRBC Flagged by Analyzer 0 % (0-5); Neutrophil % 64.1 % (47-70); Platelet Count 173 K/mm3 (150-450); RBC Distribution Width CV 13.7 % (11.6-14.6); RBC Distribution Width SD 47.9 fl (35.1-43.9); Red Blood Count 3.73 M/mm3 (4.6-6.2); White Blood Count 5.9 K/mm3 (4.4-11.0)
[2020-01-20 06:11] LABS: AST(SGOT) 17 U/L (15-37); Alanine Aminotransfer ALT/SGPT 29 U/L (16-61); Albumin, Serum 2.8 g/dL (3.2-5.0); Alkaline Phosphatase 87 U/L (45-117); Anion Gap 3 (5-15); BUN 29 mg/dL (7-18); BUN/Creat Ratio 29.7 RATIO (10-20); Calcium,Total 8.4 mg/dL (8.5-10.1); Chloride 113 mmol/L (98-107); Creatinine, Serum 0.98 mg/dL (0.70-1.30); EST Glomerular Filtration Rate 81 mL/min (>60); Est Glom Filt Rate - Afr Amer 98 mL/min (>60); Estimated Creatinine Clearance 68.83 ml/min; Globulin 3.5 g/dL (2.2-4.2); Glucose 102 mg/dL (74-106); Protein, Total 6.3 g/dL (6.4-8.2); Sodium Level 142 mmol/L (136-145)
[2020-01-20 06:15] LABS: Erythrocyte Sedimentation Rate 17 mm/hr (0-20)
[2020-01-20 06:20] LABS: Bedside Glucose 103 mg/dL (70-110)
[2020-01-20] MEDS: Aspirin 81 MG TAB.CHEW PO (07:58)
[2020-01-20 10:00] VITALS: PULSE 66; RESP 16; O2SAT 97
--- NOTE | 2020-01-20 12:50 | NURSING ---
Picc dressing changed per order. Pt tolerated procedure well
[2020-01-20 13:30] VITALS: BP 142/67; PULSE 66; RESP 14; TEMP 36.5; O2SAT 96
[2020-01-20] MEDS: Ketoconazole Cream 1 APPLIC TOPICAL (17:04)
[2020-01-20] MEDS: Alteplase 2 MG/2 ML Vial IV ×2 (17:34)
--- NOTE | 2020-01-20 22:04 | DCINST_ITS ---
- Discharge Diagnoses Current Active Problems: Current Active and Chronic Problems Debility (Acute) Open wound of right heel (Acute) Foot osteomyelitis, right (Acute) Coronary artery disease (Chronic) Peripheral arterial occlusive disease (Chronic) Diabetes mellitus (Chronic) Stroke (Chronic) Depression (Chronic) You will use the following diet at home:: No restrictions, Regular Your food should be the consistency of: Regular Your liquids should be the consistency of: Regular/Thin Discharge Activity: Return to Normal Activity, May Shower, Use Walker Weight Bearing Status: Toe touch weight bearing - Right lower extremity. Call your doctor if you observe: Fever of 101 or Higher, Inability to urinate, Inability to have a bowel movement, Shortness of breath, Chest pain, Uncontrolled pain Allergies/Adverse Reactions: Allergies morphine Allergy (Verified 12/11/19 16:26) PT UNSURE OF REACTION i was told after surgery that i shouldn't have it rivaroxaban [From Xarelto] Allergy (Verified 12/11/19 14:29) Other Medications to take at Discharge Aspirin [Lite Coat Aspirin] 325 mg PO DAILY 06/13/18 Cholecalciferol (Vitamin D3) [Vitamin D3] 5,000 mg PO DAILY 06/13/18 Diclofenac Sodium [Voltaren] 1 applic TOPICAL 4X/DAY PRN PRN 12/12/19 Mag Hydrox/Al Hydrox/Simeth [Mylanta II] 30 ml PO Q6H PRN PRN udc 12/15/19 Acetaminophen [Tylenol] 1,000 mg PO Q6H PRN PRN tablet 01/20/20 Apixaban [Eliquis] 5 mg PO BID #60 tab 01/20/20 Diclofenac Sodium [Voltaren] 0 gm TP 4X/DAY PRN PRN tube 01/20/20 Ketoconazole [Nizoral Cream] 1 applic TOPICAL BID tube 01/20/20 Lactobacillus Acidophilus [Acidophilus] 1 tablet PO BID tablet 01/20/20 Nutritional Supplement [Singh - ORANGE FLAVOR] 1 packet PO BIDCM #60 packet 01/20/20 Oxycodone [Oxyir] 10 mg PO Q4H PRN PRN 3 Days #36 tab 01/20/20 Peg 400/Hypromellose/Glycerin [Artificial Tears] 2 drop EACH EYE Q1H PRN bottle 01/20/20 Polyethylene Glycol 3350 [Miralax] 17 gm PO DAILY #30 packet 01/20/20 Senna/Docusate Sodium [Senokot-S] 2 tab PO BID #120 tab 01/20/20 Venlafaxine XR [Effexor Xr] 75 mg PO DAILY #30 cap 01/20/20 The following prescriptions were given: Venlafaxine XR [Effexor Xr] 75 mg PO DAILY #30 cap Transmission Status: Pending to [facility] Apixaban [Eliquis] 5 mg PO BID #60 tab Transmission Status: Pending to [facility] Nutritional Supplement [Singh - ORANGE FLAVOR] 1 packet PO BIDCM #60 packet Transmission Status: Pending to [facility] Polyethylene Glycol 3350 [Miralax] 17 gm PO DAILY #30 packet Transmission Status: Pending to [facility] Oxycodone [Oxyir] 10 mg PO Q4H PRN PRN 3 Days #36 tab PRN Reason: Pain Score 4-10/10 Prescription Printed Senna/Docusate Sodium [Senokot-S] 2 tab PO BID #120 tab Transmission Status: Pending to [facility] Primary Care Physician: Mckayla Silva DO [Primary Care Provider] - Please follow up with your Primary Care Physician in: 1 week. Test Results: Test results from this visit will be discussed in further detail at your follow- up appointment, if applicable. Please Follow Up With: Jenniffer Good DPM - Wound center. When: 1 week. Proposed Discharge Date: 01/24/20
--- NOTE | 2020-01-20 22:06 | PCM.DC.SUM ---
Discharge Date and Diagnosis - Problem List Patient Problems: Active and Suspected Problems Debility (Acute) Open wound of right heel (Acute) Foot osteomyelitis, right (Acute) Date of Admission: 12/15/19 Date of Discharge: 01/24/20 - Primary Discharge Diagnosis Acute Problems: Active Problems Debility (Acute) Open wound of right heel (Acute) Foot osteomyelitis, right (Acute) - Secondary Discharge Diagnosis Chronic Problems: Chronic Problems Coronary artery disease (Chronic) Peripheral arterial occlusive disease (Chronic) Diabetes mellitus (Chronic) Stroke (Chronic) Depression (Chronic) Type 2 diabetes, uncontrolled, with ulcer of heel (Chronic) right plantar heel Stage II pressure ulcer of sacral region (Chronic) Diabetes with ulcer of toe (Chronic) PAD (peripheral artery disease) (Chronic) Cellulitis and abscess of foot (Chronic) Type 2 diabetes, controlled, with ulcer of heel (Chronic) Non-healing open wound of heel (Chronic) Hyperlipidemia (Chronic) Peripheral vascular disease (Chronic) Hypertension (Chronic) Coronary artery disease (Chronic) Status post CABG Type II diabetes mellitus (Chronic) Valdez grade 3 Hospital Course and Treatment Imaging Results: 12/15/19 20:18 Diet: Calorie Controlled Food consistency:: Regular Liquid Consistency:: Regular/Thin Is pt able to select menu?: Yes Diet Comments: Please send built up utensils How many daily calories?: 1800 calorie Clinical Impression(s) from Imaging Studies Chest X-Ray 01/08/20 10:05 IMPRESSION: No acute pulmonary process Left-sided PICC line tip in the distal SVC Electronically Signed: Shamir Cano MD at 11:24 EDT , Service support , Labs (Last 48 Hours) 01/19/20 01/20/20 01/20/20 06:07 05:15 05:15 WBC 5.9 RBC 3.73 L Hgb 12.3 L Hct 36.1 L MCV 96.8 H MCH 33.0 H MCHC 34.1 RDW Std Deviation 47.9 H RDW Coeff of Melodie 13.7 Plt Count 173 MPV 9.6 Immature Gran % (Auto) 0.500 Neut % (Auto) 64.1 Lymph % (Auto) 20.4 Conway % (Auto) 9.4 Eos % (Auto) 4.4 Baso % (Auto) 1.2 H Absolute Neuts (auto) 3.8 Absolute Lymphs (auto) 1.21 Nucleated RBC % 0 ESR 17 Sodium 142 Potassium 4.0 Chloride 113 H Carbon Dioxide 26.0 Anion Gap 3 L BUN 29 H Creatinine 0.98 Estim Creat Clear Calc 68.83 Est GFR (MDRD) Af Amer 98 Est GFR (MDRD) Non-Af 81 BUN/Creatinine Ratio 29.7 H Glucose 102 Calcium 8.4 L Total Bilirubin 0.40 Direct Bilirubin 0.10 AST 17 ALT 29 Alkaline Phosphatase 87 Total Protein 6.3 L Albumin 2.8 L Globulin 3.5 POC Glucose 129 H 01/20/20 06:06 WBC RBC Hgb Hct MCV MCH MCHC RDW Std Deviation RDW Coeff of Melodie Plt Count MPV Immature Gran % (Auto) Neut % (Auto) Lymph % (Auto) Conway % (Auto) Eos % (Auto) Baso % (Auto) Absolute Neuts (auto) Absolute Lymphs (auto) Nucleated RBC % ESR Sodium Potassium Chloride Carbon Dioxide Anion Gap BUN Creatinine Estim Creat Clear Calc Est GFR (MDRD) Af Amer Est GFR (MDRD) Non-Af BUN/Creatinine Ratio Glucose Calcium Total Bilirubin Direct Bilirubin AST ALT Alkaline Phosphatase Total Protein Albumin Globulin POC Glucose 103 Consultations 12/15/19 20:17 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 Good, cultures growing s. epi, corynebacterium, amputation recommended but patient refuses, admitted to TCU with debility, here for rehabilitation, strengthening, intravenous antibiotics, prior to discharge home with . Resident has severe peripheral arterial occlusive disease, risk of amputation continues to be high. 01/08/2020 Resident diagnosed with left upper extremity DVT surrounding PICC line, started Eliquis 5MG twice daily, stop date 04/09/2020. Discharge home with , Wound VAC, Home Health Care PT/OT/SN. Patient Problems: Active and Suspected Problems Debility (Acute) Open wound of right heel (Acute) Foot osteomyelitis, right (Acute) - Physical Exam Vitals/I&O's: Vital Signs Temp Pulse Resp BP Pulse Ox 97.7 F L 66 14 142/67 H 96 01/20/20 13:30 01/20/20 13:30 01/20/20 13:30 01/20/20 13:30 01/20/20 13:30 Oxygen Flow Rate (L/min) 96 Oxygen Delivery Method Room Air Weight: 86.211 kg Body Mass Index (BMI) 25.2 Intake and Output for Last 24 Hours 01/18/20 01/19/20 01/20/20 23:59 23:59 23:59 Intake Total 1707.5 / 1707.5 1660 / 1660 1504.5 / 1504.5 Output Total 1000 / 1000 700 / 700 Balance 1707.5 / 1707.5 660 / 660 804.5 / 804.5 Laboratory Results 01/20/20 05:15: WBC 5.9, RBC 3.73 L, Hgb 12.3 L, Hct 36.1 L, MCV 96.8 H, MCH 33.0 H, MCHC 34.1, RDW Std Deviation 47.9 H, RDW Coeff of Melodie 13.7, Plt Count 173, MPV 9.6, Immature Gran % (Auto) 0.500, Neut % (Auto) 64.1, Lymph % (Auto) 20.4, Conway % (Auto) 9.4, Eos % (Auto) 4.4, Baso % (Auto) 1.2 H, Absolute Neuts (auto) 3.8, Absolute Lymphs (auto) 1.21, Nucleated RBC % 0, ESR 17 01/20/20 05:15: Sodium 142, Potassium 4.0, Chloride 113 H, Carbon Dioxide 26.0, Anion Gap 3 L, BUN 29 H, Creatinine 0.98, Estim Creat Clear Calc 68.83, Est GFR (MDRD) Af Amer 98, Est GFR (MDRD) Non-Af 81, BUN/Creatinine Ratio 29.7 H, Glucose 102, Calcium 8.4 L, Total Bilirubin 0.40, Direct Bilirubin 0.10, AST 17, ALT 29, Alkaline Phosphatase 87, Total Protein 6.3 L, Albumin 2.8 L, Globulin 3.5 01/20/20 06:06: POC Glucose 103 Current Medications Acetaminophen (Tylenol) 1,000 mg PO Q6H PRN PRN PRN Reason: Pain Score 1-3/10 Last Admin: 07/06/20 16:54 Dose: 1,000 mg Documented by: Al Hydroxide/Mg Hydroxide (Mylanta Ii) 30 ml PO Q6H PRN PRN PRN Reason: Gastric Burning Apixaban (Eliquis) 5 mg PO BID [facility] Stop: 04/15/20 06:01 Last Admin: 01/20/20 17:05 Dose: 5 mg Documented by: Aspirin (Aspirin, Baby) 81 mg PO DAILY@0800 [facility] Last Admin: 01/20/20 07:58 Dose: 81 mg Documented by: Bisacodyl (Dulcolax) 10 mg RECTAL DAILY PRN PRN Reason: Constipation Cholecalciferol (Vitamin D (25mcg)) 5,000 unit PO DAILY [facility] Last Admin: 01/20/20 03:37 Dose: 5,000 unit Documented by: Diclofenac Sodium (Voltaren) 0 gm TP 4X/DAY PRN PRN PRN Reason: MUSCLE ACHES Last Admin: 01/17/20 09:04 Dose: 100 gm Documented by: Glucagon () 1 mg IM .X1 PRN PRN Reason: Hypoglycemia Heparin Sodium (Beef Lung) () 50 units IV UD PRN PRN Reason: PICC Line Heparin Flush Last Admin: 01/18/20 19:58 Dose: 50 units Documented by: Ertapenem 1 gm/ Sodium (Chloride) 50 mls @ 100 mls/hr IV Q24 [facility] Stop: 01/23/20 23:59 Last Infusion: 01/20/20 10:23 Dose: Infused Documented by: Vancomycin IV Pharmacy to Dose (1 ea/ Sodium Chloride) 250 mls @ 1 mls/hr IV PRN PRN Sodium Chloride () 250 mls @ 15 mls/hr IV .[id number] PRN PRN Reason: Saline Flush Last Infusion: 01/20/20 20:10 Dose: Infused Documented by: Vancomycin HCl 750 mg/ Sodium (Chloride) 265 mls @ 250 mls/hr IV Q12H [facility] Stop: 01/23/20 17:04 Last Infusion: 01/20/20 20:10 Dose: Infused Documented by: Ketoconazole (Nizoral) 1 applic TOPICAL BID [facility]; Protocol Last Admin: 01/20/20 17:04 Dose: 1 applicatio Documented by: Lactobacillus Acidophilus (Acidophilus) 1 tablet PO BID [facility] Last Admin: 01/20/20 17:03 Dose: 1 tablet Documented by: [facility]al Formula [facility] - [place] [facility] Last Admin: 01/20/20 17:02 Dose: 1 packet Documented by: Oxycodone HCl (Oxyir) 10 mg PO Q4H [facility] Last Admin: 01/20/20 20:13 Dose: 10 mg Documented by: Polyethylene Glycol (Miralax) 17 gm PO DAILY [facility] Last Admin: 01/20/20 03:41 Dose: Not Given Documented by: Senna/Docusate Sodium (Senokot-S, Shahana-Colace) 2 tablet PO BID [facility] Last Admin: 01/20/20 17:05 Dose: 2 tablet Documented by: Sodium Chloride () 10 - 40 ml IV UD PRN PRN Reason: Open End PICC Flush Last Admin: 01/20/20 18:41 Dose: 30 ml Documented by: Sodium Chloride (0.9% Nacl (Sterile) Posiflush) 10 - 40 ml IV UD PRN PRN Reason: Port access or dressing change Last Admin: 12/18/19 05:44 Dose: 40 ml Documented by: Tramadol HCl (Ultram) 50 mg PO Q6H PRN PRN PRN Reason: Pain Score 4-5/10 Last Admin: 12/26/19 05:55 Dose: 50 mg Documented by: Venlafaxine HCl (Effexor Xr) 75 mg PO DAILY [facility] Last Admin: 01/20/20 03:38 Dose: 75 mg Documented by: Discharge Diet: No Restrictions Discharge Activity: Return to Normal Activity, May Shower, Use Walker Weight Bearing Status: Toe touch weight bearing - Right lower extremity. Call your doctor if you observe: Fever of 101 or Higher, Inability to urinate, Inability to have a bowel movement, Shortness of breath, Chest pain, Uncontrolled pain Home Medications: Medications to take at Discharge Aspirin [Lite Coat Aspirin] 325 mg PO DAILY 06/13/18 Cholecalciferol (Vitamin D3) [Vitamin D3] 5,000 mg PO DAILY 06/13/18 Diclofenac Sodium [Voltaren] 1 applic TOPICAL 4X/DAY PRN PRN 12/12/19 Mag Hydrox/Al Hydrox/Simeth [Mylanta II] 30 ml PO Q6H PRN PRN udc 12/15/19 Acetaminophen [Tylenol] 1,000 mg PO Q6H PRN PRN tablet 01/20/20 Apixaban [Eliquis] 5 mg PO BID #60 tab 01/20/20 Diclofenac Sodium [Voltaren] 0 gm TP 4X/DAY PRN PRN tube 01/20/20 Ketoconazole [Nizoral Cream] 1 applic TOPICAL BID tube 01/20/20 Lactobacillus Acidophilus [Acidophilus] 1 tablet PO BID tablet 01/20/20 Nutritional Supplement [Singh - ORANGE FLAVOR] 1 packet PO BIDCM #60 packet 01/20/20 Oxycodone [Oxyir] 10 mg PO Q4H PRN PRN 3 Days #36 tab 01/20/20 Peg 400/Hypromellose/Glycerin [Artificial Tears] 2 drop EACH EYE Q1H PRN bottle 01/20/20 Polyethylene Glycol 3350 [Miralax] 17 gm PO DAILY #30 packet 01/20/20 Senna/Docusate Sodium [Senokot-S] 2 tab PO BID #120 tab 01/20/20 Venlafaxine XR [Effexor Xr] 75 mg PO DAILY #30 cap 01/20/20 Following Prescriptions Were Given to Patient: Venlafaxine XR [Effexor Xr] 75 mg PO DAILY #30 cap Transmission Status: Pending to [facility] Apixaban [Eliquis] 5 mg PO BID #60 tab Transmission Status: P[facility] to [facility] Nutritional Supplement [Singh - ORANGE FLAVOR] 1 packet PO BIDCM #60 packet Transmission Status: Pending to [facility] Polyethylene Glycol 3350 [Miralax] 17 gm PO DAILY #30 packet Transmission Status: [facility] to [facility] Oxycodone [Oxyir] 10 mg PO Q4H PRN PRN 3 Days #36 tab PRN Reason: Pain Score 4-10/10 Prescription Printed Senna/Docusate Sodium [Senokot-S] 2 tab PO BID #120 tab Transmission Status: Pending to [facility] Primary Care Physician: Mckayla Silva DO [Primary Care Provider] - Please follow up with your Primary Care Physician in: 1 week. Please Follow Up With: Jenniffer Good DPM - Wound center. When: 1 week. Disposition: Home with Home Health Minutes spent on discharge:: 35 Patient Condition:: Stable Medical Necessity - Tobacco Use Smoking Status: Never smoker Tobacco Use: Non-smoker Meaningful Use Info Meaningful Use Diagnoses (Choose all that apply): None applicable
[2020-01-21] MEDS: APIXABAN 5 MG TABLET PO ×2 (04:11→17:02)
[2020-01-21] MEDS: Venlafaxine XR 75 MG Capsule PO (04:11)
[2020-01-21] MEDS: oxyCODONE 5 MG Tablet 10 MG PO ×5 (04:11→20:23)
[2020-01-21] MEDS: Senna/Docusate Sodium 1 Tablet 2 TABLET PO ×2 (04:12→17:02)
[2020-01-21] MEDS: 0.9% Saline Lock 10 ML Syringe IV ×3 (04:14→17:00)
[2020-01-21 05:55] VITALS: BP 127/58; PULSE 60; RESP 16; TEMP 36.6; O2SAT 97
[2020-01-21 06:26] LABS: Bedside Glucose 96 mg/dL (70-110)
[2020-01-21] MEDS: Aspirin 81 MG TAB.CHEW PO (07:23)
[2020-01-21 13:48] VITALS: BP 127/62; PULSE 57; RESP 18; TEMP 37; O2SAT 97
[2020-01-21 16:31] LABS: Vancomycin, Trough Level 14.7 ug/mL (5.0-15.0)
--- NOTE | 2020-01-21 17:00 | PCM.RX.CS ---
Consult Pharmacy has been consulted to manage selected antiobiotic: Vancomycin Type of Consult: Follow-up Suspected Infection: Osteomyelitis Prior Doses of Antibiotics Received/Current Regimen: Currently on 750mg iv q12h. Labs: Sodium 142 mmol/L (136-145) 01/20/20 05:15 Potassium 4.0 mmol/L (3.5-5.1) 01/20/20 05:15 Chloride 113 mmol/L (98-107) H 01/20/20 05:15 Carbon Dioxide 26.0 mmol/L (21.0-32.0) 01/20/20 05:15 Anion Gap 3 (5-15) L 01/20/20 05:15 BUN 29 mg/dL (7-18) H 01/20/20 05:15 Creatinine 0.98 mg/dL (0.70-1.30) 01/20/20 05:15 Est GFR (MDRD) Af Amer 98 mL/min (>60) 01/20/20 05:15 Est GFR (MDRD) Non-Af 81 mL/min (>60) 01/20/20 05:15 BUN/Creatinine Ratio 29.7 RATIO (10-20) H 01/20/20 05:15 Glucose 102 mg/dL (74-106) 01/20/20 05:15 Vancomycin Trough 14.7 ug/mL (5.0-15.0) 01/21/20 15:43 Weight used for dosin.2 kg Estimated Creatinine Clearance: ~69ml/min Goal Trough: 15-20 mcg/mL Pharmacy Plan for Drug Dosing: Trough level today 14.7. Renal function slightly improved from time last trough done 01.13.. Antibiotic to stop 8..20. Will continue same dose. Pharmacy Service will continue to monitor and adjust dosing as required.
[2020-01-21] MEDS: Ketoconazole Cream 1 APPLIC TOPICAL (17:01)
--- NOTE | 2020-01-21 17:22 | VDUE_ITS ---
Reason For Study: Swelling Left Proximal Left jugular vein is spontaneous, widely patent, phasic, with no intraluminal echogenicity noted. Left subclavian vein is spontaneous, widely patent, phasic, with no intraluminal echogenicity noted. PICC line noted. Left Arm Axillary vein is partially compressible around PICC line, flow noted. Left brachial vein is compressible. Left cephalic vein is compressible. Left basilic vein is compressible. PICC Line noted in basilic vein. Left Lower Arm Left radial vein is compressible. Left ulnar vein is compressible. Patient Safety Prelim to RN. Interpretation Summary No evidence for acute deep venous thrombosis[left] upper extremity with patent and compressible cephalic and basilic veins. Patient is noted to have a PIC line in the left axillary vein and subclavian vein however the vein is compressible around the line Ordering Physician: Jerrod Medina Referring Physician: Mckayla Silva Performed By: Savanna Quinones RVT ?
[2020-01-21 23:38] VITALS: PULSE 62; RESP 16; O2SAT 94
[2020-01-22] MEDS: oxyCODONE 5 MG Tablet 10 MG PO ×6 (00:02→19:45)
[2020-01-22] MEDS: Senna/Docusate Sodium 1 Tablet 2 TABLET PO ×2 (03:51→17:35)
[2020-01-22] MEDS: Polyethylene Glycol 3350 17 GM PACKET PO (03:52)
[2020-01-22] MEDS: Venlafaxine XR 75 MG Capsule PO (03:52)
[2020-01-22] MEDS: APIXABAN 5 MG TABLET PO ×2 (03:52→17:34)
[2020-01-22] MEDS: 0.9% Saline Lock 10 ML Syringe IV ×3 (04:03→15:51)
[2020-01-22 04:06] VITALS: BP 123/52; PULSE 56; RESP 16; TEMP 36.7; O2SAT 96
[2020-01-22 07:01] LABS: Bedside Glucose 128 mg/dL (70-110)
[2020-01-22] MEDS: Aspirin 81 MG TAB.CHEW PO (08:07)
--- NOTE | 2020-01-22 08:44 | CASEMGMT ---
Social Work BIMS and PHQ-9 completed for MDS assessment. Gina Daniel, WAREHOUSE ORDER PULLER BITUMINOUS DISTRIBUTOR OPERATOR
--- NOTE | 2020-01-22 09:58 | MDS.RN ---
Pain interview for munir 01/24/20 completed.
[2020-01-22 13:52] VITALS: BP 119/65; PULSE 63; RESP 16; TEMP 36.8; O2SAT 94
[2020-01-22] MEDS: Ketoconazole Cream 1 APPLIC TOPICAL (17:34)
[2020-01-23] MEDS: oxyCODONE 5 MG Tablet 10 MG PO ×6 (00:10→20:22)
[2020-01-23 04:00] VITALS: BP 121/63; PULSE 60; RESP 18; TEMP 36.6; O2SAT 96
[2020-01-23] MEDS: 0.9% Saline Lock 10 ML Syringe IV ×3 (05:34→15:58)
[2020-01-23] MEDS: Senna/Docusate Sodium 1 Tablet 2 TABLET PO ×2 (05:39→16:57)
[2020-01-23] MEDS: APIXABAN 5 MG TABLET PO ×2 (05:39→17:00)
[2020-01-23] MEDS: Venlafaxine XR 75 MG Capsule PO (05:39)
[2020-01-23 06:46] LABS: Bedside Glucose 107 mg/dL (70-110)
[2020-01-23] MEDS: Aspirin 81 MG TAB.CHEW PO (08:02)
--- NOTE | 2020-01-23 08:17 | PN_ITS ---
Patient Problems: Active and Suspected Problems Debility (Acute) Open wound of right heel (Acute) Foot osteomyelitis, right (Acute) Subjective: Pt is a 69 year old male who was seen bedside. Patient states that his pain is a 2/10 to his foot and at times it can get worse. Patient denies N/F/V/C/CP/SOB. - Physical Exam Vitals/I&O's: Vital Signs Temp Pulse Resp BP Pulse Ox 97.8 F 60 18 121/63 H 96 01/23/20 04:00 01/23/20 04:00 01/23/20 04:00 01/23/20 04:00 01/23/20 04:00 Oxygen Flow Rate (L/min) 96 Oxygen Delivery Method Room Air Weight: 86.211 kg Body Mass Index (BMI) 25.2 Intake and Output for Last 24 Hours 01/21/20 01/22/20 01/23/20 23:59 23:59 23:59 Intake Total 967.5 / 967.5 1601.0 / 1601.0 265 / 265 Balance 967.5 / 967.5 1601.0 / 1601.0 265 / 265 General: Alert Extremities: Diminished Peripheral Pulses, Edema - mild Skin: Ulcer/ Wound - right heel covered with wound vac with good seal Musculoskeletal: Muscle Wasting Neurological: Neuro grossly intact Psych/Mental Status: Normal Affect Laboratory Results 01/23/20 06:10: POC Glucose 107 Current Medications Acetaminophen (Tylenol) 1,000 mg PO Q6H PRN PRN PRN Reason: Pain Score 1-3/10 Last Admin: 12/21/19 16:54 Dose: 1,000 mg Documented by: Al Hydroxide/Mg Hydroxide (Mylanta Ii) 30 ml PO Q6H PRN PRN PRN Reason: Gastric Burning Apixaban (Eliquis) 5 mg PO BID [facility] Stop: 04/15/20 06:01 Last Admin: 01/23/20 05:39 Dose: 5 mg Documented by: Aspirin (Aspirin, Baby) 81 mg PO DAILY@0800 [facility] Last Admin: 01/23/20 08:02 Dose: 81 mg Documented by: Bisacodyl (Dulcolax) 10 mg RECTAL DAILY PRN PRN Reason: Constipation Cholecalciferol (Vitamin D (25mcg)) 5,000 unit PO DAILY [facility] Last Admin: 01/23/20 05:38 Dose: 5,000 unit Documented by: Diclofenac Sodium (Voltaren) 0 gm TP 4X/DAY PRN PRN PRN Reason: MUSCLE ACHES Last Admin: 01/17/20 09:04 Dose: 100 gm Documented by: Glucagon () 1 mg IM .X1 PRN PRN Reason: Hypoglycemia Heparin Sodium (Beef Lung) () 50 units IV UD PRN PRN Reason: PICC Line Heparin Flush Last Admin: 01/18/20 19:58 Dose: 50 units Documented by: Ertapenem 1 gm/ Sodium (Chloride) 50 mls @ 100 mls/hr IV Q24 [facility] Stop: 01/23/20 23:59 Last Infusion: 01/22/20 12:58 Dose: Infused Documented by: Vancomycin IV Pharmacy to Dose (1 ea/ Sodium Chloride) 250 mls @ 1 mls/hr IV PRN PRN Sodium Chloride () 250 mls @ 15 mls/hr IV .[id number] PRN PRN Reason: Saline Flush Last Infusion: 01/22/20 12:59 Dose: 0 mls/hr Documented by: Vancomycin HCl 750 mg/ Sodium (Chloride) 265 mls @ 250 mls/hr IV Q12H [facility] Stop: 01/23/20 17:04 Last Infusion: 01/23/20 05:34 Dose: Infused Documented by: Ketoconazole (Nizoral) 1 applic TOPICAL BID [facility]; Protocol Last Admin: 01/23/20 05:39 Dose: Not Given Documented by: Lactobacillus Acidophilus (Acidophilus) 1 tablet PO BID [facility] Last Admin: 01/23/20 05:39 Dose: 1 tablet Documented by: Nutritional Formula (Singh - [place] Flavor) 1 packet PO BIDCM [facility] Last Admin: 01/23/20 08:02 Dose: 1 packet Documented by: Oxycodone HCl (Oxyir) 10 mg PO Q4H [facility] Last Admin: 01/23/20 08:01 Dose: 10 mg Documented by: Polyethylene Glycol (Miralax) 17 gm PO DAILY [facility] Last Admin: 01/23/20 05:39 Dose: Not Given Documented by: Senna/Docusate Sodium (Senokot-S, Shahana-Colace) 2 tablet PO BID [facility] Last Admin: 01/23/20 05:39 Dose: 2 tablet Documented by: Sodium Chloride () 10 - 40 ml IV UD PRN PRN Reason: Open End PICC Flush Last Admin: 01/23/20 05:34 Dose: 30 ml Documented by: Sodium Chloride (0.9% Nacl (Sterile) Posiflush) 10 - 40 ml IV UD PRN PRN Reason: Port access or dressing change Last Admin: 12/18/19 05:44 Dose: 40 ml Documented by: Tramadol HCl (Ultram) 50 mg PO Q6H PRN PRN PRN Reason: Pain Score 4-5/10 Last Admin: 12/26/19 05:55 Dose: 50 mg Documented by: Venlafaxine HCl (Effexor Xr) 75 mg PO DAILY [facility] Last Admin: 01/23/20 05:39 Dose: 75 mg Documented by: Medical Necessity - Tobacco Use Smoking Status: Never smoker Tobacco Use: Non-smoker Assessment/Plan All Active Problems Osteomyelitis of foot, right, acute (Acute) Cellulitis of foot, right (Acute) Type 2 diabetes mellitus with diabetic polyneuropathy (Acute) Debility (Acute) Open wound of right heel (Acute) Foot osteomyelitis, right (Acute) Venous ulcer of right lower extremity without varicose veins (Resolved) Varicose veins of right lower extremity with ulcer (Resolved) 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 The wound is applied to right heel and has good seal. Patient is to continue wound vac at [facility]. Patient being discharged tomorrow. To continue strict offloading to the right lower extremity. Infectious disease providing antibiotics recommendations Healing capability is guarded given his poor circulation. He will continue to follow up with Dr. Navas in the out patient setting. Patient to follow up at wound care center at [facility] for continued care
--- NOTE | 2020-01-23 10:48 | NURSING ---
pt stated he up dates his Natacha
[2020-01-23 14:27] VITALS: BP 135/69; PULSE 59; RESP 16; TEMP 36.6; O2SAT 95
[2020-01-23] MEDS: Acetaminophen 500 MG Tablet 1000 MG PO (22:01)
--- NOTE | 2020-01-23 22:13 | NURSING ---
Per order PICC was D/C from Left upper arm. Tip intact at 49cm. White petroleum jelly, 2x2 and [id number] dressing applied. Instructed pt to let staff know if he notices pain or bleeding. Pt tolerated well.
--- NOTE | 2020-01-23 23:54 | PCA ---
pt refused to do any pm care natachaight just wanted fresh ice water
[2020-01-24] MEDS: oxyCODONE 5 MG Tablet 10 MG PO ×3 (00:07→07:49)
[2020-01-24 04:00] VITALS: BP 134/60; PULSE 55; RESP 16; TEMP 36.6; O2SAT 93
[2020-01-24 06:21] LABS: Bedside Glucose 96 mg/dL (70-110)
[2020-01-24] MEDS: Venlafaxine XR 75 MG Capsule PO (06:22)
[2020-01-24] MEDS: APIXABAN 5 MG TABLET PO (06:22)
[2020-01-24] MEDS: Senna/Docusate Sodium 1 Tablet 2 TABLET PO (06:22)
[2020-01-24] MEDS: Aspirin 81 MG TAB.CHEW PO (07:50)
[2020-01-24 09:10] VITALS: PULSE 65; RESP 18; O2SAT 96
--- NOTE | 2020-01-24 09:52 | NURSING ---
called and went over discharge inst.
[2020-01-24 09:57] VITALS: BP 122/63; PULSE 65; RESP 18; TEMP 36.7; O2SAT 96
== END 2020-01-24 10:40 | disposition home health service (06) | DRG 623 ==
PROVIDERS: Internal Medicine Infectious Disease; Admitting Provider Family Medicine Geriatric Medicine; PCP Family Medicine; Visit Provider Family Medicine Geriatric Medicine
DX: E11.69 Type 2 diabetes mellitus with other specified complication (principal); M86.171 Other acute osteomyelitis, right ankle and foot; L97.419 Non-pressure chronic ulcer of right heel and midfoot with unspecified severity; K21.9 Gastro-esophageal reflux disease without esophagitis; F32.9 Major depressive disorder, single episode, unspecified; E11.51 Type 2 diabetes mellitus with diabetic peripheral angiopathy without gangrene; E55.9 Vitamin D deficiency, unspecified; I25.10 Atherosclerotic heart disease of native coronary artery without angina pectoris; E11.621 Type 2 diabetes mellitus with foot ulcer; E78.5 Hyperlipidemia, unspecified; I10 Essential (primary) hypertension; Z95.1 Presence of aortocoronary bypass graft; E11.42 Type 2 diabetes mellitus with diabetic polyneuropathy; I82.622 Acute embolism and thrombosis of deep veins of left upper extremity
CPT/HCPCS: 36415; 71045; 80048; 80076; 80202; 82565; 82962; 85025; 85652; 87635; 93971; 97110; 97116; 97162; 97166; 97530; 97535; 97542; 97802; G2023; J2997; J7050; A4216; J1940; U0003

== ENCOUNTER 2020-02-12 12:45 | Outpatient (RCR) | payer MEDICARE, OTHER, SELFPAY ==
[2019-12-16 00:21] VITALS: BP 125/71; PULSE 80; RESP 16; TEMP 36.6
[2020-01-29 11:43] VITALS: BP 122/68; PULSE 59; RESP 18; TEMP 36.4; BMI 25.8
--- NOTE | 2020-01-30 14:19 | PN.PCM_ITS ---
(1) Diabetic ulcer of toe of right foot Status: Chronic Current Visit: Yes Qualifiers: Diabetes mellitus type: type 2 Non-pressure ulcer stage: with necrosis of bone Qualified Code(s): E11.621 - Type 2 diabetes mellitus with foot ulcer; L97.514 - Non-pressure chronic ulcer of other part of right foot with necrosis of bone Code(s): E11.621 - Type 2 diabetes mellitus with foot ulcer; L97.519 - Non- pressure chronic ulcer of other part of right foot with unspecified severity (2) Osteomyelitis of foot, right, acute Status: Chronic Current Visit: Yes Code(s): M86.171 - Other acute osteomyelitis, right ankle and foot (3) Cellulitis of foot, right Status: Chronic Current Visit: Yes Code(s): L03.115 - Cellulitis of right lower limb (4) Type 2 diabetes mellitus with diabetic polyneuropathy Status: Chronic Current Visit: No Qualifiers: Diabetes mellitus intermediate insulin use: without technician terminal and repeater use Qualified Code(s): E11.42 - Type 2 diabetes mellitus with diabetic polyneuropathy Code(s): E11.42 - Type 2 diabetes mellitus with diabetic polyneuropathy (5) 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 Current Visit: Yes Code(s): L97.514 - Non-pressure chronic ulcer of other part of right foot with necrosis of bone (6) Open wound of right heel Status: Chronic Current Visit: Yes Qualifiers: Encounter type: subsequent encounter Qualified Code(s): S91.301D - Unspecified open wound, right foot, subsequent encounter Code(s): S91.301A - Unspecified open wound, right foot, initial encounter (7) Peripheral arterial occlusive disease Status: Chronic Current Visit: Yes Code(s): I77.9 - Disorder of arteries and arterioles, unspecified (8) Diabetes mellitus Status: Chronic Current Visit: Yes Qualifiers: Diabetes mellitus type: type 2 Diabetes mellitus technician terminal and repeater insulin use: without intermediate use Diabetes mellitus complication status: with skin complications Diabetes mellitus complication detail: with foot ulcer Qualified Code(s): E11.621 - Type 2 diabetes mellitus with foot ulcer; L97.509 - Non-pressure chronic ulcer of other part of unspecified foot with unspecified severity Code(s): E11.9 - Type 2 diabetes mellitus without complications Type of Wound Date of Service: 01/29/20 Chief Complaint: Nonhealing ulcer right heel, Valdez Grade 3 diabetic ulcer. History of Wound: Gibson is here for evaluation of an ulcer of his right heel. He was recently treated for this same area with [place] application and was discharged in January 2019. He had noticed increased pain in his heel in March and his noted that the area had opened after his manager bank had debrided some callus from the area. He has been applying Aquacel and gauze to the ulcer. He does follow with Dr. Navas regularly and had a bypass of his right SFA and popliteal arteries in September 2018. He has had procedures for his arterial disease in past to both of his lower extremities. He has tried alternative treatments with supplements and chelation therapy in the past. He also has diabetes and recent A1C was 7.2% He does wear diabetic shoes. He had been undergoing chelation treatments by Dr. German in [place]. He denies fever, chills, erythema or heavy drainage. He reports significant pain and discomfort of his right heel and his entire right leg which no one can explain. In March 2019, he was hospitalized due to occlusion of his bypass graft in his right leg and Dr. Navas was able to open it 50%. He also has blockages in his left leg. Dr. Navas is unable to revascularize either leg at this time and he may ultimately require limb amputation if his vascular disease worsens. December 11, 2019, he was sent to the emergency room with worsening of his ulcer and cellulitis. Dr. Good performed surgical debridement on December 12, 2019 and he was treated with IV antibiotics for over 4 weeks and was in the transitional care unit at [facility] for Rehab and treatment with wound vac. He was discharged on January 23, 2020 to home with continued wound vac treatment. Progress of Wound: Gibosn is here to follow up for nonhealing ulcer of his right heel. He has been tolerating the wound vac but has an injury at the top of his foot where the vac suction was placed and also has tow new wounds on his second toe from a fall earlier this week. His home health nurse was concerned about the new wounds and he was scheduled to be seen for evaluation. He denies any increased drainage, pain or erythema. - Physical Exam Vital Signs Temp Pulse Resp BP 97.6 F L 59 L 18 122/68 H 01/29/20 11:43 01/29/20 11:43 01/29/20 11:43 01/29/20 11:43 General: Alert, Oriented x3, Cooperative, No apparent distress HEENT: Atraumatic, Normocephalic Oral: Moist Mucosa Extremities: No edema Skin: Ulcer/ Wound Wound Measurements and Assessment WC - Nurse 1 - General Ulcer Measurement Start: 01/29/20 11:43 Freq: Status: Active Protocol: Activity Type Activity Date Activity User E-Sign Co-Sign Detail Recorded Client Recorded Date Recorded By Document 01/29/20 11:43 PL [id number] 01/29/20 12:05 PL 01/29/20 11:43 Wound Center Nurse 1 [Ulcer Assessment] #18 Right Dorsal Foot -Combined with other wound No -Current Size (cm) - Length 0.5 -Current Size (cm) - Width 0.5 -Current Size (cm) - Depth 0.1 -Total Square Cm 0.25 -Date of Last Picture (Recall this 01/29/20 field) -Photo Taken Yes -Epithelialization None Present -Tunneling No -Undermining/Tunneling No -Exudate Amt None Present -Wound Margin Indistinct, Non -Visible -Granulation Amt None Present (0 %) -Slough/Fibrin Yes -Necrosis Amt Large (67-100%) -Necrotic Tissue Type Adherent Slough -Texture (Shahana-wound Skin Appearance) No Abnormality -Moisture (Shahana-wound Skin Appearance No Abnormality ) -Color (Shahana-wound Skin Appearance) No Abnormality -Temperature (Shahana-wound Skin No Abnormality Appearance) (Pt Warm) -Ulcer Cleansing Rinsed/ Irrigated with Saline -Foul Odor after Cleansing No -Anesthetic Used 5% Lidocaine Gel #17 Right 2nd toe Dorsal CLUSTER -Combined with other wound No -Current Size (cm) - Length 3.0 -Current Size (cm) - Width 0.5 -Current Size (cm) - Depth 0.1 -Total Square Cm 1.50 -Date of Last Picture (Recall this 01/29/20 field) -Photo Taken Yes -Epithelialization None Present -Tunneling No -Undermining/Tunneling No -Circular Undermining No -Classification - Thickness Full Thickness without Exposed Support Structure -Exudate Amt None Present -Granulation Amt None Present (0 %) -Slough/Fibrin Yes -Necrosis Amt Large (67-100%) -Necrotic Tissue Type Eschar -Texture (Shahana-wound Skin Appearance) No Abnormality -Moisture (Shahana-wound Skin Appearance No Abnormality ) -Color (Shahana-wound Skin Appearance) No Abnormality -Temperature (Shahana-wound Skin No Abnormality Appearance) (Pt Warm) -Ulcer Cleansing Rinsed/ Irrigated with Saline -Foul Odor after Cleansing No -Anesthetic Used 5% Lidocaine Gel #14- R HEEL -Combined with other wound No -Current Size (cm) - Length 1.4 -Current Size (cm) - Width 0.5 -Current Size (cm) - Depth 0.4 -Total Square Cm 0.70 -Date of Last Picture (Recall this 01/29/20 field) -Photo Taken Yes -Epithelialization None Present -Tunneling No -Undermining/Tunneling No -Classification - Thickness Full Thickness with Exposed Support Structure -Classification - Valdez Grading ( Grade 3 Diabetic Ulcer) -Change in Wound Grade/Stage No Query Text:If change please identify the Stage/Grade in the comment (ie. S2 G3) -Exudate Amt Small -Exudate Type Serosanguineous -Wound Margin Thickened -Granulation Amt Medium (34-66%) -Granulation Quality [place] -Slough/Fibrin Yes -Necrosis Amt Medium (34-66%) -Necrotic Tissue Type Adherent Slough -Texture (Shahana-wound Skin Appearance) Callus -Moisture (Shahana-wound Skin Appearance Maceration ) -Color (Shahana-wound Skin Appearance) No Abnormality -Temperature (Shahana-wound Skin No Abnormality Appearance) (Pt Warm) -Ulcer Cleansing Rinsed/ Irrigated with Saline -Foul Odor after Cleansing No -Anesthetic Used 5% Lidocaine Gel WC - Nurse 2 - General Ulcer CM Notes Start: 01/29/20 11:43 Freq: Status: Active Protocol: Activity Type Activity Date Activity User E-Sign Co-Sign Detail Recorded Client Recorded Date Recorded By Document 01/29/20 12:29 MW [id number] 01/29/20 13:04 MW 01/29/20 12:29 Wound Center Nurse 2 [Procedure/Treatment] #18 Right Dorsal Foot -Time 12:35 -Correct Patient Yes -Correct Side, Site, Position Yes -Correct Procedure Yes -Procedure Performed Yes -Type of Procedure Debridement -Clinical Debridement Subcutaneous -Post Debridement Size (cm) - Length 0.4 -Post Debridement Size (cm) - Width 0.6 -Post Debridement Size (cm) - Depth 0.1 -Total Square (cm) 0.24 -Wound/Ulcer Outcome Not Healed -Ulcer Cleansing Rinsed/ Irrigated with Saline -Foul Odor after Cleansing No -Bioengineered Tissue No -Bleeding Controlled with Pressure -Offloading No -Treatment Response Procedure Tolerated Well #17 Right 2nd toe Dorsal CLUSTER -Time 12:39 -Correct Patient Yes -Correct Side, Site, Position Yes -Correct Procedure Yes -Procedure Performed Yes -Type of Procedure Debridement -Clinical Debridement Subcutaneous -Post Debridement Size (cm) - Length 3.0 -Post Debridement Size (cm) - Width 0.9 -Post Debridement Size (cm) - Depth 0.1 -Total Square (cm) 2.70 -Wound/Ulcer Outcome Not Healed -Ulcer Cleansing Rinsed/ Irrigated with Saline -Foul Odor after Cleansing No -Bioengineered Tissue No -Bleeding Controlled with Pressure -Offloading No -Treatment Response Procedure Tolerated Well #14- R HEEL -Time 12:39 -Correct Patient Yes -Correct Side, Site, Position Yes -Correct Procedure Yes -Procedure Performed Yes -Type of Procedure Debridement -Clinical Debridement Subcutaneous -Post Debridement Size (cm) - Length 1.1 -Post Debridement Size (cm) - Width 0.7 -Post Debridement Size (cm) - Depth 0.7 -Total Square (cm) 0.77 -Wound/Ulcer Outcome Not Healed -Ulcer Cleansing Rinsed/ Irrigated with Saline -Foul Odor after Cleansing No -Bioengineered Tissue No -Bleeding Controlled with Pressure -Offloading No -Treatment Response Procedure Tolerated Well [See Physician Procedure note for Specifics] Pain Scale: 0-10 Numeric [Pain] -Is Patient Pain Free? Yes Psych/Mental Status: Normal Affect, Appropriate Debridement Note Post-Debridement Measurements/Treatment WC - Nurse 2 - General Ulcer CM Notes Start: 01/29/20 11:43 Freq: Status: Active Protocol: Activity Type Activity Date Activity User E-Sign Co-Sign Detail Recorded Client Recorded Date Recorded By Document 01/29/20 12:29 MW [id number] 01/29/20 13:04 MW 01/29/20 12:29 Wound Center Nurse 2 #18 Right Dorsal Foot -Time 12:35 -Correct Patient Yes -Correct Side, Site, Position Yes -Correct Procedure Yes -Procedure Performed Yes -Type of Procedure Debridement -Clinical Debridement Subcutaneous -Post Debridement Size (cm) - Length 0.4 -Post Debridement Size (cm) - Width 0.6 -Post Debridement Size (cm) - Depth 0.1 -Total Square (cm) 0.24 -Wound/Ulcer Outcome Not Healed -Ulcer Cleansing Rinsed/ Irrigated with Saline -Foul Odor after Cleansing No -Bioengineered Tissue No -Bleeding Controlled with Pressure -Offloading No -Treatment Response Procedure Tolerated Well #17 Right 2nd toe Dorsal CLUSTER -Time 12:39 -Correct Patient Yes -Correct Side, Site, Position Yes -Correct Procedure Yes -Procedure Performed Yes -Type of Procedure Debridement -Clinical Debridement Subcutaneous -Post Debridement Size (cm) - Length 3.0 -Post Debridement Size (cm) - Width 0.9 -Post Debridement Size (cm) - Depth 0.1 -Total Square (cm) 2.70 -Wound/Ulcer Outcome Not Healed -Ulcer Cleansing Rinsed/ Irrigated with Saline -Foul Odor after Cleansing No -Bioengineered Tissue No -Bleeding Controlled with Pressure -Offloading No -Treatment Response Procedure Tolerated Well #14- R HEEL -Time 12:39 -Correct Patient Yes -Correct Side, Site, Position Yes -Correct Procedure Yes -Procedure Performed Yes -Type of Procedure Debridement -Clinical Debridement Subcutaneous -Post Debridement Size (cm) - Length 1.1 -Post Debridement Size (cm) - Width 0.7 -Post Debridement Size (cm) - Depth 0.7 -Total Square (cm) 0.77 -Wound/Ulcer Outcome Not Healed -Ulcer Cleansing Rinsed/ Irrigated with Saline -Foul Odor after Cleansing No -Bioengineered Tissue No -Bleeding Controlled with Pressure -Offloading No -Treatment Response Procedure Tolerated Well Pain Scale: 0-10 Numeric Is Patient Pain Free? Yes Wound debrided: right dorsal foot Laterality: Right Wound Grade/Stage: valdez grade 1 Type of Debridement: Excisional debridement Anesthesia Used: 4% Lidocaine Solution Depth: Down to and including healthy tissue, in the subcutaneous layer Percentage of wound debrided: 100 Instrument Used: Forceps Tissue Removed: yellow slough, devitalized tissue Severity: Fat Layer Exposed Amount of bleeding with debridement: Mild Bleeding Controlled with: Compression and gauze Patient tolerated procedure well - Additional Wound Wound debrided: right seocnd toe cluster Laterality: Right Wound Grade/Stage: valdez grade 1 Type of Debridement: Excisional debridement Anesthesia Used: 4% Lidocaine Solution Depth: Down to and including healthy tissue, in the subcutaneous layer Percentage of wound debrided: 60 Instrument Used: #15 blade, Forceps Severity: Fat Layer Exposed Amount of bleeding with debridement: Mild Bleeding Controlled with: Compression and gauze - \ Patient tolerated procedure: Patient tolerated procedure well - Additional Wound Wound debrided: right heel Laterality: Right Wound Grade/Stage: Grade 3 Type of Debridement: Excisional debridement Anesthesia Used: 4% Lidocaine Solution Depth: Down to and including healthy tissue, in the subcutaneous layer Percentage of wound debrided: 100 Instrument Used: #15 blade, Forceps Tissue Removed: yellow slough, devitalized tissue Severity: Fat Layer Exposed Amount of bleeding with debridement: Mild Bleeding Controlled with: Compression and gauze Patient tolerated procedure: Patient tolerated procedure well Assessment/Plan Active Problems Osteomyelitis of foot, right, acute (Chronic) Cellulitis of foot, right (Chronic) Ulcer of right foot with necrosis of bone (Chronic) Open wound of right heel (Chronic) Peripheral arterial occlusive disease (Chronic) Diabetes mellitus (Chronic) Diabetic ulcer of toe of right foot (Chronic) Assessment: 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 Diabetes mellitus - controlled. Peripheral vascular disease - status post revascularization 08/07/18 and 03/2019 Plan: Gibson's ulcers were evaluated and debrided today. Will continue treatment with wound vac to his heel and will use Promogran to the areas on the top of his foot and second toe both changed 3 times/week. He will continue to use the surgical shoe for offloading. Oxycodone 5 mg #45 were prescribed for treatment of pain with debridements on 10/30/2019. OARRS was appropriate. No signs of diversion or abuse. Encouraged to call with any increase in pain or drainage, fever or chills. Increased protein encouraged. Control of diabetes recommended. Offloading importance stressed. F/U in 1 week or sooner if needed.
[2020-02-05 11:37] VITALS: BP 153/82; PULSE 82; RESP 18; TEMP 36.6; BMI 25.8
--- NOTE | 2020-02-05 14:39 | PCM.WC.PN ---
(1) Diabetic ulcer of toe of right foot Status: Chronic Current Visit: Yes Qualifiers: Diabetes mellitus type: type 2 Non-pressure ulcer stage: with necrosis of bone Qualified Code(s): E11.621 - Type 2 diabetes mellitus with foot ulcer; L97.514 - Non-pressure chronic ulcer of other part of right foot with necrosis of bone Code(s): E11.621 - Type 2 diabetes mellitus with foot ulcer; L97.519 - Non-pressure chronic ulcer of other part of right foot with unspecified severity (2) Osteomyelitis of foot, right, acute Status: Chronic Current Visit: Yes Code(s): M86.171 - Other acute osteomyelitis, right ankle and foot (3) Cellulitis of foot, right Status: Chronic Current Visit: Yes Code(s): L03.115 - Cellulitis of right lower limb (4) Type 2 diabetes mellitus with diabetic polyneuropathy Status: Chronic Current Visit: Yes Qualifiers: Diabetes mellitus skilled nursing insulin use: without terminal make up operator use Qualified Code(s): E11.42 - Type 2 diabetes mellitus with diabetic polyneuropathy Code(s): E11.42 - Type 2 diabetes mellitus with diabetic polyneuropathy (5) 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 Current Visit: Yes Code(s): L97.514 - Non-pressure chronic ulcer of other part of right foot with necrosis of bone (6) Open wound of right heel Status: Chronic Current Visit: Yes Qualifiers: Encounter type: subsequent encounter Qualified Code(s): S91.301D - Unspecified open wound, right foot, subsequent encounter Code(s): S91.301A - Unspecified open wound, right foot, initial encounter (7) Peripheral arterial occlusive disease Status: Chronic Current Visit: Yes Code(s): I77.9 - Disorder of arteries and arterioles, unspecified (8) Diabetes mellitus Status: Chronic Current Visit: Yes Qualifiers: Diabetes mellitus type: type 2 Diabetes mellitus terminal make up operator insulin use: without skilled nursing use Diabetes mellitus complication status: with skin complications Diabetes mellitus complication detail: with foot ulcer Qualified Code(s): E11.621 - Type 2 diabetes mellitus with foot ulcer; L97.509 - Non-pressure chronic ulcer of other part of unspecified foot with unspecified severity Code(s): E11.9 - Type 2 diabetes mellitus without complications Type of Wound Date of Service: 02/05/20 Chief Complaint: Nonhealing ulcer right heel, Valdez Grade 3 diabetic ulcer. History of Wound: Gibson is here for evaluation of an ulcer of his right heel. He was recently treated for this same area with [place] application and was discharged in January 2019. 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 He has been applying Aquacel and gauze to the ulcer. He does follow with Dr. Navas regularly and had a bypass of his right SFA and popliteal arteries in September 2018. He has had procedures for his arterial disease in past to both of his lower extremities. He has tried alternative treatments with supplements and chelation therapy in the past. He also has diabetes and recent A1C was 7.2% He does wear diabetic shoes. He had been undergoing chelation treatments by Dr. German in [place]. He denies fever, chills, erythema or heavy drainage. He reports significant pain and discomfort of his right heel and his entire right leg which no one can explain. In March 2019, he was hospitalized due to occlusion of his bypass graft in his right leg and Dr. Navas was able to open it 50%. He also has blockages in his left leg. Dr. Navas is unable to revascularize either leg at this time and he may ultimately require limb amputation if his vascular disease worsens. December 11, 2019, he was sent to the emergency room with worsening of his ulcer and cellulitis. Dr. Good performed surgical debridement on December 12, 2019 and he was treated with IV antibiotics for over 4 weeks and was in the transitional care unit at [facility] for Rehab and treatment with wound vac. He was discharged on January 23, 2020 to home with continued wound vac treatment. Progress of Wound: Gibson is here to follow up for nonhealing ulcer of his right heel and dorsal right foot and second toe. He saw Dr. Good on Saturday and she removed the wound vac and evaluated his ulcer. He had a break from the wound vac this week. He saw me in my office for hospital follow up on Saturday and I dressed his wound with Promogran and medihoney. He denies any increased drainage, pain or erythema. - Physical Exam Vital Signs Temp Pulse Resp BP 97.9 F 82 18 153/82 H 02/05/20 11:37 02/05/20 11:37 02/05/20 11:37 02/05/20 11:37 General: Alert, Oriented x3, Cooperative, No apparent distress HEENT: Atraumatic, Normocephalic Oral: Moist Mucosa Abdomen: Soft, Non Tender Extremities: Edema Skin: Ulcer/ Wound Wound Measurements and Assessment WC - Nurse 1 - General Ulcer Measurement Start: 01/29/20 11:43 Freq: Status: Active Protocol: Activity Type Activity Date Activity User E-Sign Co-Sign Detail Recorded Client Recorded Date Recorded By Document 02/05/20 11:37 RB [id number] 02/05/20 11:43 RB 02/05/20 11:37 Wound Center Nurse 1 [Ulcer Assessment] #19 Right Dorsal Foot -Combined with other wound No -Current Size (cm) - Length 0.3 -Current Size (cm) - Width 0.6 -Current Size (cm) - Depth 0.1 -Total Square Cm 0.18 -Tunneling No -Undermining/Tunneling No -Circular Undermining No -Exudate Amt Small -Exudate Type Serosanguineous -Wound Margin Flat & Intact -Granulation Amt Medium (34-66%) -Granulation Quality [place] -Slough/Fibrin Yes -Necrosis Amt Medium (34-66%) -Necrotic Tissue Type Adherent Slough -Structure Exposed N/A -Texture (Shahana-wound Skin Appearance) Assessed -Moisture (Shahana-wound Skin Appearance Assessed ) -Color (Shahana-wound Skin Appearance) Assessed -Temperature (Shahana-wound Skin No Abnormality Appearance) (Pt Warm) -Tenderness on Palpation (Shahana-wound No Skin Appearance) -Ulcer Cleansing Wound Cleanser -Foul Odor after Cleansing No -Anesthetic Used 4% Lidocaine Solution #18 Right 2nd toe Dorsal CLUSTER -Combined with other wound No -Current Size (cm) - Length 2.7 -Current Size (cm) - Width 0.8 -Current Size (cm) - Depth 0.1 -Total Square Cm 2.16 -Tunneling No -Undermining/Tunneling No -Circular Undermining No -Exudate Amt Small -Exudate Type Serosanguineous -Wound Margin Flat & Intact -Granulation Amt Medium (34-66%) -Granulation Quality [place] -Slough/Fibrin Yes -Necrosis Amt Medium (34-66%) -Necrotic Tissue Type Adherent Slough -Structure Exposed N/A -Texture (Shahana-wound Skin Appearance) Assessed -Moisture (Shahana-wound Skin Appearance Assessed ) -Temperature (Shahana-wound Skin No Abnormality Appearance) (Pt Warm) -Tenderness on Palpation (Shahana-wound No Skin Appearance) -Ulcer Cleansing Wound Cleanser -Foul Odor after Cleansing No -Anesthetic Used 4% Lidocaine Solution #17- R HEEL -Combined with other wound No -Current Size (cm) - Length 0.6 -Current Size (cm) - Width 0.3 -Current Size (cm) - Depth 0.4 -Total Square Cm 0.18 -Tunneling No -Undermining/Tunneling No -Circular Undermining No -Exudate Amt Medium -Exudate Type Serosanguineous -Wound Margin Flat & Intact -Granulation Amt Medium (34-66%) -Granulation Quality [place] -Slough/Fibrin Yes -Necrosis Amt Small (1-33%) -Necrotic Tissue Type Adherent Slough -Structure Exposed N/A -Texture (Shahana-wound Skin Appearance) Assessed,Callus -Moisture (Shahana-wound Skin Appearance Assessed, ) Maceration -Color (Shahana-wound Skin Appearance) Assessed -Temperature (Shahana-wound Skin No Abnormality Appearance) (Pt Warm) -Tenderness on Palpation (Shahana-wound No Skin Appearance) -Ulcer Cleansing Wound Cleanser -Foul Odor after Cleansing No -Anesthetic Used 4% Lidocaine Solution [Edema Assessment] -Lower Limb Edema Present Yes -Right Calf (cm) 26.6 -Right Ankle (cm) 18 WC - Nurse 2 - General Ulcer CM Notes Start: 02/02/20 20:20 Freq: Status: Active Protocol: Activity Type Activity Date Activity User E-Sign Co-Sign Detail Recorded Client Recorded Date Recorded By Document 02/05/20 11:53 MW [id number] 02/05/20 12:15 MW 02/05/20 11:53 Wound Center Nurse 2 [Procedure/Treatment] #19 Right Dorsal Foot -Time 11:56 -Correct Patient Yes -Correct Side, Site, Position Yes -Correct Procedure Yes -Procedure Performed Yes -Type of Procedure Debridement -Clinical Debridement Subcutaneous -Tissue Removed Subcutaneous -Post Debridement (cm) - Length 0.4 -Post Debridement (cm) - Width 0.6 -Post Debridement (cm) - Depth 0.1 -Total Square (Post) (cm) 0.24 -Area of Debridement (cm) - Length 0.4 -Area of Debridement (cm) - Width 0.6 -Total Square (Area) (cm) 0.24 -Tunneling No -Undermining/Tunneling No -Circular Undermining No -Wound/Ulcer Outcome Not Healed -Ulcer Cleansing Rinsed/ Irrigated with Saline -Foul Odor after Cleansing No -Bioengineered Tissue No -Bleeding Controlled with Pressure -Offloading No -Debridement - Subq, 1st 20sq cm Yes #18 Right 2nd toe Dorsal CLUSTER -Time 11:57 -Correct Patient Yes -Correct Side, Site, Position Yes -Correct Procedure Yes -Procedure Performed Yes -Type of Procedure Debridement -Clinical Debridement Subcutaneous -Tissue Removed Subcutaneous -Post Debridement (cm) - Length 2.4 -Post Debridement (cm) - Width 0.7 -Post Debridement (cm) - Depth 0.1 -Total Square (Post) (cm) 1.68 -Area of Debridement (cm) - Length 2.4 -Area of Debridement (cm) - Width 0.7 -Total Square (Area) (cm) 1.68 -Tunneling No -Undermining/Tunneling No -Circular Undermining No -Wound/Ulcer Outcome Not Healed -Ulcer Cleansing Rinsed/ Irrigated with Saline -Foul Odor after Cleansing No -Bioengineered Tissue No -Bleeding Controlled with Pressure -Offloading No -Treatment Response Procedure Tolerated Well -Debridement - Subq, 20sq cm No #17- R HEEL -Time 11:58 -Correct Patient Yes -Correct Side, Site, Position Yes -Correct Procedure Yes -Procedure Performed Yes -Type of Procedure Debridement -Clinical Debridement Subcutaneous -Tissue Removed Subcutaneous -Post Debridement (cm) - Length 1.1 -Post Debridement (cm) - Width 0.7 -Post Debridement (cm) - Depth 0.6 -Total Square (Post) (cm) 0.77 -Area of Debridement (cm) - Length 1.1 -Area of Debridement (cm) - Width 0.7 -Total Square (Area) (cm) 0.77 -Tunneling No -Undermining/Tunneling No -Circular Undermining No -Wound/Ulcer Outcome Not Healed -Foul Odor after Cleansing No -Bioengineered Tissue No -Bleeding Controlled with Pressure -Debridement - Subq, 1st 20sq cm No [See Physician Procedure note for Specifics] Pain Scale: 0-10 Numeric [Pain] -Is Patient Pain Free? Yes - Nurse 3 - General Ulcer D/C NN Start: 02/02/20 20:20 Freq: Status: Active Protocol: Activity Type Activity Date Activity User E-Sign Co-Sign Detail Recorded Client Recorded Date Recorded By Document 02/05/20 12:21 DL [id number] 02/05/20 12:28 DL 02/05/20 12:21 Wound Care Nurse 3 [Wound Dressing] #19 Right Dorsal Foot -Ulcer Cleansing Rinsed/ Irrigated with Saline -Foul Odor after Cleansing No -Primary Dressing Applied C Hydrogel ($) -Other Dressing adaptic -Primary Dressing Covered/Secured Dry Gauze & with Roll Gauze, Secured with Tape #18 Right 2nd toe Dorsal CLUSTER -Ulcer Cleansing Rinsed/ Irrigated with Saline -Foul Odor after Cleansing No -Primary Dressing Applied C Hydrogel ($) -Other Dressing adaptic -Primary Dressing Covered/Secured Dry Gauze & with Roll Gauze, Secured with Tape -Other Covering leopoldo #17- R HEEL -Ulcer Cleansing Wound Cleanser -Foul Odor after Cleansing No -NPWT Application Charge ($) NPWT </= 50 sq cm [Compression Applied] Right -Compression Wrap Leopoldo Wrap [Post Procedure Tolerated] -Treatment Response Procedure Tolerated Well Pain Scale: 0-10 Numeric [Pain] -Is Patient Pain Free? Yes - Visit Discharge [Visit Discharge Information] -Discharge Condition Stable -Ambulatory Status Ambulatory,Cane -Transportation Private Auto -Accompanied by [Facility Notification] -Facility Type Home Health -Orders Sent Yes Psych/Mental Status: Normal Affect, Appropriate Debridement Note Post-Debridement Measurements/Treatment - Nurse 2 - General Ulcer CM Notes Start: 02/02/20 20:20 Freq: Status: Active Protocol: Activity Type Activity Date Activity User E-Sign Co-Sign Detail Recorded Client Recorded Date Recorded By Document 02/05/20 11:53 MW [id number] 02/05/20 12:15 MW 02/05/20 11:53 Wound Center Nurse 2 #19 Right Dorsal Foot -Time 11:56 -Correct Patient Yes -Correct Side, Site, Position Yes -Correct Procedure Yes -Procedure Performed Yes -Type of Procedure Debridement -Clinical Debridement Subcutaneous -Tissue Removed Subcutaneous -Post Debridement (cm) - Length 0.4 -Post Debridement (cm) - Width 0.6 -Post Debridement (cm) - Depth 0.1 -Total Square (Post) (cm) 0.24 -Area of Debridement (cm) - Length 0.4 -Area of Debridement (cm) - Width 0.6 -Total Square (Area) (cm) 0.24 -Tunneling No -Undermining/Tunneling No -Circular Undermining No -Wound/Ulcer Outcome Not Healed -Ulcer Cleansing Rinsed/ Irrigated with Saline -Foul Odor after Cleansing No -Bioengineered Tissue No -Bleeding Controlled with Pressure -Offloading No -Debridement - Subq, 1st 20sq cm Yes #18 Right 2nd toe Dorsal CLUSTER -Time 11:57 -Correct Patient Yes -Correct Side, Site, Position Yes -Correct Procedure Yes -Procedure Performed Yes -Type of Procedure Debridement -Clinical Debridement Subcutaneous -Tissue Removed Subcutaneous -Post Debridement (cm) - Length 2.4 -Post Debridement (cm) - Width 0.7 -Post Debridement (cm) - Depth 0.1 -Total Square (Post) (cm) 1.68 -Area of Debridement (cm) - Length 2.4 -Area of Debridement (cm) - Width 0.7 -Total Square (Area) (cm) 1.68 -Tunneling No -Undermining/Tunneling No -Circular Undermining No -Wound/Ulcer Outcome Not Healed -Ulcer Cleansing Rinsed/ Irrigated with Saline -Foul Odor after Cleansing No -Bioengineered Tissue No -Bleeding Controlled with Pressure -Offloading No -Treatment Response Procedure Tolerated Well -Debridement - Subq, 20sq cm No #17- R HEEL -Time 11:58 -Correct Patient Yes -Correct Side, Site, Position Yes -Correct Procedure Yes -Procedure Performed Yes -Type of Procedure Debridement -Clinical Debridement Subcutaneous -Tissue Removed Subcutaneous -Post Debridement (cm) - Length 1.1 -Post Debridement (cm) - Width 0.7 -Post Debridement (cm) - Depth 0.6 -Total Square (Post) (cm) 0.77 -Area of Debridement (cm) - Length 1.1 -Area of Debridement (cm) - Width 0.7 -Total Square (Area) (cm) 0.77 -Tunneling No -Undermining/Tunneling No -Circular Undermining No -Wound/Ulcer Outcome Not Healed -Foul Odor after Cleansing No -Bioengineered Tissue No -Bleeding Controlled with Pressure -Debridement - Subq, 1st 20sq cm No Pain Scale: 0-10 Numeric Is Patient Pain Free? Yes WC - Nurse 3 - General Ulcer D/C NN Start: 02/02/20 20:20 Freq: Status: Active Protocol: Activity Type Activity Date Activity User E-Sign Co-Sign Detail Recorded Client Recorded Date Recorded By Document 02/05/20 12:21 DL [id number] 02/05/20 12:28 DL 02/05/20 12:21 Wound Care Nurse 3 #19 Right Dorsal Foot -Ulcer Cleansing Rinsed/ Irrigated with Saline -Foul Odor after Cleansing No -Primary Dressing Applied C Hydrogel ($) -Other Dressing adaptic -Primary Dressing Covered/Secured with Dry Gauze & Roll Gauze, Secured with Tape #18 Right 2nd toe Dorsal CLUSTER -Ulcer Cleansing Rinsed/ Irrigated with Saline -Foul Odor after Cleansing No -Primary Dressing Applied C Hydrogel ($) -Other Dressing adaptic -Primary Dressing Covered/Secured with Dry Gauze & Roll Gauze, Secured with Tape -Other Covering leopoldo #17- R HEEL -Ulcer Cleansing Wound Cleanser -Foul Odor after Cleansing No -NPWT Application Charge ($) NPWT </= 50 sq cm Right -Compression Wrap Leopoldo Wrap Treatment Response Procedure Tolerated Well Pain Scale: 0-10 Numeric Is Patient Pain Free? Yes WC - Visit Discharge Discharge Condition Stable Ambulatory Status Ambulatory,Cane Transportation Private Auto Accompanied by Facility Type Home Health Orders Sent Yes Wound debrided: right dorsal foot Laterality: Right Type of Debridement: Excisional debridement Anesthesia Used: 4% Lidocaine Solution, 5% Lidocaine Gel Depth: Down to and including healthy tissue, in the subcutaneous layer Percentage of wound debrided: 100 Instrument Used: 5mm curette Tissue Removed: Yellow slough, devitalized tissue Severity: Fat Layer Exposed Amount of bleeding with debridement: Mild Bleeding Controlled with: Compression and gauze Patient tolerated procedure well - Additional Wound Wound debrided: Second toe cluster Laterality: Right Type of Debridement: Excisional debridement Anesthesia Used: 4% Lidocaine Solution, 5% Lidocaine Gel Depth: Down to and including healthy tissue, in the subcutaneous layer Percentage of wound debrided: 100 Instrument Used: 5mm curette Tissue Removed: Yellow slough, devitalized tissue Severity: Fat Layer Exposed Amount of bleeding with debridement: Mild Bleeding Controlled with: Compression and gauze Patient tolerated procedure: Patient tolerated procedure well - Additional Wound Wound debrided: Right heel Laterality: Right Wound Grade/Stage: Valdez grade 3 Type of Debridement: Excisional debridement Anesthesia Used: 4% Lidocaine Solution, 5% Lidocaine Gel Depth: Down to and including healthy tissue, in the subcutaneous layer Percentage of wound debrided: 100 Instrument Used: 5mm curette Tissue Removed: Yellow slough, devitalized tissue Severity: Fat Layer Exposed Amount of bleeding with debridement: Mild Bleeding Controlled with: Compression and gauze Patient tolerated procedure: Patient tolerated procedure well Assessment/Plan Active Problems Osteomyelitis of foot, right, acute (Chronic) Cellulitis of foot, right (Chronic) Type 2 diabetes mellitus with diabetic polyneuropathy (Chronic) Ulcer of right foot with necrosis of bone (Chronic) Open wound of right heel (Chronic) Peripheral arterial occlusive disease (Chronic) Diabetes mellitus (Chronic) Diabetic ulcer of toe of right foot (Chronic) Assessment: 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 Diabetes mellitus - controlled. Peripheral vascular disease - status post revascularization 08/07/18 and 03/2019 Plan: Gibson's ulcer was evaluated and debrided today with minimal improvement from last week. Will restart wound vac and will dress the top of his foot and toes with hydrogel and adaptic. Consider medihoney and promogran to his right heel after wound vac has improved the depth more. Encouraged to call with any increase in pain or drainage, fever or chills. F/U in 1 week.
[2020-02-12 13:19] VITALS: BP 150/85; PULSE 59; RESP 16; TEMP 36.4; BMI 25.8
--- NOTE | 2020-02-12 17:25 | PN.PCM_ITS ---
(1) Diabetic ulcer of toe of right foot Status: Chronic Current Visit: Yes Qualifiers: Diabetes mellitus type: type 2 Non-pressure ulcer stage: with necrosis of bone Qualified Code(s): E11.621 - Type 2 diabetes mellitus with foot ulcer; L97.514 - Non-pressure chronic ulcer of other part of right foot with necrosis of bone Code(s): E11.621 - Type 2 diabetes mellitus with foot ulcer; L97.519 - Non- pressure chronic ulcer of other part of right foot with unspecified severity (2) Osteomyelitis of foot, right, acute Status: Chronic Current Visit: Yes Code(s): M86.171 - Other acute osteomyelitis, right ankle and foot (3) Cellulitis of foot, right Status: Chronic Current Visit: Yes Code(s): L03.115 - Cellulitis of right lower limb (4) Type 2 diabetes mellitus with diabetic polyneuropathy Status: Chronic Current Visit: Yes Qualifiers: Diabetes mellitus termite helper insulin use: without residential use Qualified Code(s): E11.42 - Type 2 diabetes mellitus with diabetic polyneuropathy Code(s): E11.42 - Type 2 diabetes mellitus with diabetic polyneuropathy (5) 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 Current Visit: Yes Code(s): L97.514 - Non-pressure chronic ulcer of other part of right foot with necrosis of bone (6) Open wound of right heel Status: Chronic Current Visit: Yes Qualifiers: Encounter type: subsequent encounter Qualified Code(s): S91.301D - Unspecified open wound, right foot, subsequent encounter Code(s): S91.301A - Unspecified open wound, right foot, initial encounter (7) Peripheral arterial occlusive disease Status: Chronic Current Visit: Yes Code(s): I77.9 - Disorder of arteries and arterioles, unspecified (8) Diabetes mellitus Status: Chronic Current Visit: Yes Qualifiers: Diabetes mellitus type: type 2 Diabetes mellitus residential insulin use: without residential use Diabetes mellitus complication status: with skin complications Diabetes mellitus complication detail: with foot ulcer Qualified Code(s): E11.621 - Type 2 diabetes mellitus with foot ulcer; L97.509 - Non-pressure chronic ulcer of other part of unspecified foot with unspecified severity Code(s): E11.9 - Type 2 diabetes mellitus without complications Type of Wound Date of Service: 02/12/20 Chief Complaint: Nonhealing ulcer right heel, Valdez Grade 3 diabetic ulcer. History of Wound: Gibson is here for evaluation of an ulcer of his right heel. He was recently treated for this same area with Ther[place]in application and was discharged in January 2019. He had noticed increased pain in his heel in March and his noted that the area had opened after his principal security architect had debrided some callus from the area. He has been applying Aquacel and gauze to the ulcer. He does follow with Dr. Navas regularly and had a bypass of his right SFA and popliteal arteries in September 2018. He has had procedures for his arterial disease in past to both of his lower extremities. He has tried alternative treatments with supplements and chelation therapy in the past. He also has diabetes and recent A1C was 7.2% He does wear diabetic shoes. He had been undergoing chelation treatments by Dr. German in [place]. He denies fever, chills, erythema or heavy drainage. He reports significant pain and discomfort of his right heel and his entire right leg which no one can explain. In March 2019, he was hospitalized due to occlusion of his bypass graft in his right leg and Dr. Navas was able to open it 50%. He also has blockages in his left leg. Dr. Navas is unable to revascularize either leg at this time and he may ultimately require limb amputation if his vascular disease worsens. December 11, 2019, he was sent to the emergency room with worsening of his ulcer and cellulitis. Dr. Good performed surgical debridement on December 12, 2019 and he was treated with IV antibiotics for over 4 weeks and was in the transitional care unit at [facility] for Rehab and treatment with wound vac. He was discharged on January 23, 2020 to home with continued wound vac treatment. Progress of Wound: Gibson is here to follow up for nonhealing ulcer of his right heel and dorsal right foot and second toe. He tolerated the wound vac but did not have much improvement and there was no drainage present in the vac container. He denies any increased drainage, pain or erythema. - Physical Exam Vital Signs Temp Pulse Resp BP 97.6 F L 59 L 16 150/85 H 02/12/20 13:19 02/12/20 13:19 02/12/20 13:19 02/12/20 13:19 General: Alert, Oriented x3, Cooperative, No apparent distress HEENT: Atraumatic, Normocephalic Oral: Moist Mucosa Extremities: No edema Skin: Ulcer/ Wound Wound Measurements and Assessment WC - Nurse 1 - General Ulcer Measurement Start: 01/29/20 11:43 Freq: Status: Active Protocol: Activity Type Activity Date Activity User E-Sign Co-Sign Detail Recorded Client Recorded Date Recorded By Document 02/12/20 13:19 [facility] [id number] 02/12/20 13:32 [facility] 02/12/20 13:19 Wound Center Nurse 1 [Ulcer Assessment] #19 Right Dorsal Foot -Combined with other wound No -Current Size (cm) - Length 0.3 -Current Size (cm) - Width 0.4 -Current Size (cm) - Depth 0.1 -Total Square Cm 0.12 -Photo Taken No -Epithelialization None Present -Tunneling No -Undermining/Tunneling No -Circular Undermining No -Exudate Amt Small -Exudate Type Serosanguineous -Wound Margin Distinct, Outline Attached -Granulation Amt Medium (34-66%) -Granulation Quality Red -Slough/Fibrin Yes -Necrosis Amt Medium (34-66%) -Necrotic Tissue Type Adherent Slough -Texture (Shahana-wound Skin Appearance) Assessed, Scarring -Moisture (Shahana-wound Skin Appearance Assessed ) -Color (Shahana-wound Skin Appearance) Assessed, Erythema -Temperature (Shahana-wound Skin No Abnormality Appearance) (Pt Warm) -Tenderness on Palpation (Shahana-wound No Skin Appearance) -Ulcer Cleansing soapy water -Foul Odor after Cleansing No -Anesthetic Used 5% Lidocaine Gel #18 Right 2nd toe Dorsal CLUSTER -Combined with other wound No -Current Size (cm) - Length 0.1 -Current Size (cm) - Width 0.1 -Current Size (cm) - Depth 0.1 -Total Square Cm 0.01 -Photo Taken No -Epithelialization Large 67-100% -Texture (Shahana-wound Skin Appearance) Assessed -Moisture (Shahana-wound Skin Appearance Assessed,Dry/ ) Scaly -Color (Shahana-wound Skin Appearance) Assessed -Temperature (Shahana-wound Skin No Abnormality Appearance) (Pt Warm) -Tenderness on Palpation (Shahana-wound No Skin Appearance) -Ulcer Cleansing soapy water -Foul Odor after Cleansing No -Anesthetic Used 5% Lidocaine Gel #17- R HEEL -Combined with other wound No -Current Size (cm) - Length 1.4 -Current Size (cm) - Width 0.8 -Current Size (cm) - Depth 0.7 -Total Square Cm 1.12 -Photo Taken No -Epithelialization None Present -Tunneling No -Undermining/Tunneling No -Circular Undermining No -Exudate Amt Small -Exudate Type Serosanguineous -Wound Margin Thickened -Granulation Amt Small (1-33%) -Granulation Quality Red -Slough/Fibrin Yes -Necrosis Amt Large (67-100%) -Necrotic Tissue Type Adherent Slough -Texture (Shahana-wound Skin Appearance) Assessed -Moisture (Shahana-wound Skin Appearance Assessed, ) Maceration -Color (Shahana-wound Skin Appearance) Assessed,Rubor -Temperature (Shahana-wound Skin No Abnormality Appearance) (Pt Warm) -Tenderness on Palpation (Shahana-wound Yes Skin Appearance) -Ulcer Cleansing soapy water -Foul Odor after Cleansing No -Anesthetic Used 5% Lidocaine Gel [Edema Assessment] -Lower Limb Edema Present No WC - Nurse 2 - General Ulcer CM Notes Start: 02/02/20 20:20 Freq: Status: Active Protocol: Activity Type Activity Date Activity User E-Sign Co-Sign Detail Recorded Client Recorded Date Recorded By Document 02/12/20 14:20 MW [id number] 02/12/20 14:43 MW 02/12/20 14:20 Wound Center Nurse 2 [Procedure/Treatment] #19 Right Dorsal Foot -Time 14:26 -Correct Patient Yes -Correct Side, Site, Position Yes -Correct Procedure Yes -Procedure Performed Yes -Type of Procedure Debridement -Clinical Debridement Subcutaneous -Tissue Removed Subcutaneous -Post Debridement (cm) - Length 0.4 -Post Debridement (cm) - Width 0.6 -Post Debridement (cm) - Depth 0.1 -Total Square (Post) (cm) 0.24 -Area of Debridement (cm) - Length 0.4 -Area of Debridement (cm) - Width 0.6 -Total Square (Area) (cm) 0.24 -Tunneling No -Undermining/Tunneling No -Circular Undermining No -Wound/Ulcer Outcome Not Healed -Ulcer Cleansing Rinsed/ Irrigated with Saline -Foul Odor after Cleansing No -Bioengineered Tissue No -Bleeding Controlled with Pressure -Offloading No -Treatment Response Procedure Tolerated Well -Debridement - Subq, 1st 20sq cm Yes #18 Right 2nd toe Dorsal CLUSTER -Time 14:27 -Correct Patient Yes -Correct Side, Site, Position Yes -Correct Procedure Yes -Procedure Performed Yes -Type of Procedure Debridement -Clinical Debridement Subcutaneous -Tissue Removed Subcutaneous -Post Debridement (cm) - Length 0.4 -Post Debridement (cm) - Width 0.2 -Post Debridement (cm) - Depth 0.1 -Total Square (Post) (cm) 0.08 -Area of Debridement (cm) - Length 0.4 -Area of Debridement (cm) - Width 0.2 -Total Square (Area) (cm) 0.08 -Tunneling No -Undermining/Tunneling No -Circular Undermining No -Wound/Ulcer Outcome Not Healed -Ulcer Cleansing Rinsed/ Irrigated with Saline -Foul Odor after Cleansing No -Bioengineered Tissue No -Bleeding Controlled with Pressure -Offloading No -Treatment Response Procedure Tolerated Well -Debridement - Subq, 1st 20sq cm No #17- R HEEL -Time 14:27 -Correct Patient Yes -Correct Side, Site, Position Yes -Correct Procedure Yes -Procedure Performed No -Type of Procedure Debridement -Clinical Debridement Subcutaneous -Tissue Removed Subcutaneous -Post Debridement (cm) - Length 0.9 -Post Debridement (cm) - Width 0.7 -Post Debridement (cm) - Depth 0.6 -Total Square (Post) (cm) 0.63 -Area of Debridement (cm) - Length 0.9 -Area of Debridement (cm) - Width 0.7 -Total Square (Area) (cm) 0.63 -Tunneling No -Undermining/Tunneling No -Circular Undermining No -Wound/Ulcer Outcome Not Healed -Ulcer Cleansing Rinsed/ Irrigated with Saline -Foul Odor after Cleansing No -Bioengineered Tissue No -Bleeding Controlled with Pressure -Offloading No -Debridement - Subq, 1st 20sq cm No [See Physician Procedure note for Specifics] Pain Scale: 0-10 Numeric [Pain] -Is Patient Pain Free? Yes WC - Nurse 3 - General Ulcer D/C NN Start: 02/02/20 20:20 Freq: Status: Active Protocol: Activity Type Activity Date Activity User E-Sign Co-Sign Detail Recorded Client Recorded Date Recorded By Document 02/12/20 14:52 [facility] [id number] 08/28/20 14:55 BMF 02/12/20 14:52 Wound Care Nurse 3 [Wound Dressing] #19 Right Dorsal Foot -Ulcer Cleansing Rinsed/ Irrigated with Saline -Foul Odor after Cleansing No -Primary Dressing Applied Promogran,Other -Other Dressing MEDIHONEY -Primary Dressing Covered/Secured Dry Gauze & with Roll Gauze, Secured with Tape -Other Covering DRSG BY Alicia IQBAL RN -Promogran 1 #18 Right 2nd toe Dorsal CLUSTER -Ulcer Cleansing Rinsed/ Irrigated with Saline -Foul Odor after Cleansing No -Primary Dressing Applied Other -Other Dressing HYDROGEL AND ADAPTIC -Primary Dressing Covered/Secured Dry Gauze, with Secured with Tape #17- R HEEL -Ulcer Cleansing Rinsed/ Irrigated with Saline -Foul Odor after Cleansing No -Primary Dressing Applied Promogran,Other -Other Dressing MEDIHONEY -Primary Dressing Covered/Secured Other with -Other Covering HEEL HAT, DRSG BY Alicia IQBAL RN -Promogran 0 [Compression Applied] Right -Compression Wrap Leopoldo Wrap [Post Procedure Tolerated] -Treatment Response Procedure Tolerated Well Pain Scale: 0-10 Numeric [Pain] -Is Patient Pain Free? Yes WC - Visit Discharge [Visit Discharge Information] -Discharge Condition Stable -Ambulatory Status Wheelchair -Transportation Private Auto -Accompanied by [Facility Notification] -Facility Type Home Health Psych/Mental Status: Normal Affect, Appropriate Debridement Note Post-Debridement Measurements/Treatment WC - Nurse 2 - General Ulcer CM Notes Start: 02/02/20 20:20 Freq: Status: Active Protocol: Activity Type Activity Date Activity User E-Sign Co-Sign Detail Recorded Client Recorded Date Recorded By Document 02/05/20 11:53 MW [id number] 02/05/20 12:15 MW Document 02/12/20 14:20 MW [id number] 02/12/20 14:43 MW 02/05/20 02/12/20 11:53 14:20 Wound Center Nurse 2 #19 Right Dorsal Foot -Time 11:56 14:26 -Correct Patient Yes Yes -Correct Side, Site, Position Yes Yes -Correct Procedure Yes Yes -Procedure Performed Yes Yes -Type of Procedure Debridement Debridement -Clinical Debridement Subcutaneous Subcutaneous -Tissue Removed Subcutaneous Subcutaneous -Post Debridement (cm) - Length 0.4 0.4 -Post Debridement (cm) - Width 0.6 0.6 -Post Debridement (cm) - Depth 0.1 0.1 -Total Square (Post) (cm) 0.24 0.24 -Area of Debridement (cm) - Length 0.4 0.4 -Area of Debridement (cm) - Width 0.6 0.6 -Total Square (Area) (cm) 0.24 0.24 -Tunneling No No -Undermining/Tunneling No No -Circular Undermining No No -Wound/Ulcer Outcome Not Healed Not Healed -Ulcer Cleansing Rinsed/ Rinsed/ Irrigated with Irrigated with Saline Saline -Foul Odor after Cleansing No No -Bioengineered Tissue No No -Bleeding Controlled with Pressure Pressure -Offloading No No -Treatment Response Procedure Tolerated Well -Debridement - Subq, 1st 20sq cm Yes Yes #18 Right 2nd toe Dorsal CLUSTER -Time 11:57 14:27 -Correct Patient Yes Yes -Correct Side, Site, Position Yes Yes -Correct Procedure Yes Yes -Procedure Performed Yes Yes -Type of Procedure Debridement Debridement -Clinical Debridement Subcutaneous Subcutaneous -Tissue Removed Subcutaneous Subcutaneous -Post Debridement (cm) - Length 2.4 0.4 -Post Debridement (cm) - Width 0.7 0.2 -Post Debridement (cm) - Depth 0.1 0.1 -Total Square (Post) (cm) 1.68 0.08 -Area of Debridement (cm) - Length 2.4 0.4 -Area of Debridement (cm) - Width 0.7 0.2 -Total Square (Area) (cm) 1.68 0.08 -Tunneling No No -Undermining/Tunneling No No -Circular Undermining No No -Wound/Ulcer Outcome Not Healed Not Healed -Ulcer Cleansing Rinsed/ Rinsed/ Irrigated with Irrigated with Saline Saline -Foul Odor after Cleansing No No -Bioengineered Tissue No No -Bleeding Controlled with Pressure Pressure -Offloading No No -Treatment Response Procedure Procedure Tolerated Well Tolerated Well -Debridement - Subq, 1st 20sq cm No No #17- R HEEL -Time 11:58 14:27 -Correct Patient Yes Yes -Correct Side, Site, Position Yes Yes -Correct Procedure Yes Yes -Procedure Performed Yes No -Type of Procedure Debridement Debridement -Clinical Debridement Subcutaneous Subcutaneous -Tissue Removed Subcutaneous Subcutaneous -Post Debridement (cm) - Length 1.1 0.9 -Post Debridement (cm) - Width 0.7 0.7 -Post Debridement (cm) - Depth 0.6 0.6 -Total Square (Post) (cm) 0.77 0.63 -Area of Debridement (cm) - Length 1.1 0.9 -Area of Debridement (cm) - Width 0.7 0.7 -Total Square (Area) (cm) 0.77 0.63 -Tunneling No No -Undermining/Tunneling No No -Circular Undermining No No -Wound/Ulcer Outcome Not Healed Not Healed -Ulcer Cleansing Rinsed/ Irrigated with Saline -Foul Odor after Cleansing No No -Bioengineered Tissue No No -Bleeding Controlled with Pressure Pressure -Offloading No -Debridement - Subq, 1st 20sq cm No No Pain Scale: 0-10 Numeric Is Patient Pain Free? Yes Yes WC - Nurse 3 - General Ulcer D/C NN Start: 02/02/20 20:20 Freq: Status: Active Protocol: Activity Type Activity Date Activity User E-Sign Co-Sign Detail Recorded Client Recorded Date Recorded By Document 02/05/20 12:21 DL [id number] 02/05/20 12:28 DL Document 02/12/20 14:52 [facility] [id number] 02/12/20 14:55 [facility] 02/05/20 02/12/20 12:21 14:52 Wound Care Nurse 3 #19 Right Dorsal Foot -Ulcer Cleansing Rinsed/ Rinsed/ Irrigated with Irrigated with Saline Saline -Foul Odor after Cleansing No No -Primary Dressing Applied C Hydrogel ($) Promogran,Other -Other Dressing adaptic MEDIHONEY -Primary Dressing Covered/Secured with Dry Gauze & Dry Gauze & Roll Gauze, Roll Gauze, Secured with Secured with Tape Tape -Other Covering DRSG BY Alicia IQBAL RN -Promogran 1 #18 Right 2nd toe Dorsal CLUSTER -Ulcer Cleansing Rinsed/ Rinsed/ Irrigated with Irrigated with Saline Saline -Foul Odor after Cleansing No No -Primary Dressing Applied C Hydrogel ($) Other -Other Dressing adaptic HYDROGEL AND ADAPTIC -Primary Dressing Covered/Secured with Dry Gauze & Dry Gauze, Roll Gauze, Secured with Secured with Tape Tape -Other Covering leopoldo #17- R HEEL -Ulcer Cleansing Wound Cleanser Rinsed/ Irrigated with Saline -Foul Odor after Cleansing No No -Primary Dressing Applied Promogran,Other -Other Dressing MEDIHONEY -Primary Dressing Covered/Secured with Other -Other Covering HEEL HAT, DRSG BY Alicia IQBAL RN -NPWT Application Charge ($) NPWT </= 50 sq cm -Promogran 0 Right -Compression Wrap Leopoldo Wrap Leopoldo Wrap Treatment Response Procedure Procedure Tolerated Well Tolerated Well Pain Scale: 0-10 Numeric Is Patient Pain Free? Yes Yes WC - Visit Discharge Discharge Condition Stable Stable Ambulatory Status Ambulatory,Cane Wheelchair Transportation Private Auto Private Auto Accompanied by Facility Type Home Health Home Health Orders Sent Yes Wound debrided: right dorsal foot Laterality: Right Type of Debridement: Excisional debridement Anesthesia Used: 4% Lidocaine Solution Depth: Down to and including healthy tissue, in the subcutaneous layer Percentage of wound debrided: 100 Instrument Used: 3mm curette Tissue Removed: Yellow slough, devitalized tissue Severity: Limited To Skin Breakdown Amount of bleeding with debridement: Mild Bleeding Controlled with: Compression and gauze Patient tolerated procedure well - Additional Wound Wound debrided: right second toe cluster Laterality: Right Type of Debridement: Excisional debridement Anesthesia Used: 4% Lidocaine Solution Depth: Down to and including healthy tissue, in the subcutaneous layer Percentage of wound debrided: 100 Instrument Used: 3mm curette Tissue Removed: Yellow slough, devitalized tissue Severity: Fat Layer Exposed Amount of bleeding with debridement: Mild Bleeding Controlled with: Compression and gauze Patient tolerated procedure: Patient tolerated procedure well - Additional Wound Wound debrided: right heel Laterality: Right Wound Grade/Stage: valdez grade 3 Type of Debridement: Excisional debridement Anesthesia Used: 4% Lidocaine Solution, 5% Lidocaine Gel, - - lidocaine 2% 5 ml Depth: Down to and including healthy tissue, in the subcutaneous layer Percentage of wound debrided: 100 Instrument Used: 5mm curette Tissue Removed: Yellow slough, devitalized tissue Severity: Fat Layer Exposed Amount of bleeding with debridement: Mild Bleeding Controlled with: Compression and gauze Patient tolerated procedure: Patient tolerated procedure well Assessment/Plan Active Problems Osteomyelitis of foot, right, acute (Chronic) Cellulitis of foot, right (Chronic) Type 2 diabetes mellitus with diabetic polyneuropathy (Chronic) Ulcer of right foot with necrosis of bone (Chronic) Open wound of right heel (Chronic) Peripheral arterial occlusive disease (Chronic) Diabetes mellitus (Chronic) Diabetic ulcer of toe of right foot (Chronic) Assessment: 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 Diabetes mellitus - controlled. Peripheral vascular disease - status post revascularization 08/07/18 and 03/2019 Plan: Gibson's ulcer was evaluated and debrided today with minimal improvement from last week. Will change to medihoney and promogran to his right heel and dorsal foot and continue collagen hydrogel to his right second toe. Encouraged to call with any increase in pain or drainage, fever or chills. F/U in 1 week.
--- NOTE | 2020-02-28 10:03 | WC ---
8-14-20 R 2nd Toe
== END 2020-02-15 23:59 ==
LOC: WC 12:45
PROVIDERS: Family Provider Family Medicine; PCP Family Medicine; Referring Provider Family Medicine; Visit Provider Family Medicine
DX: E11.621 Type 2 diabetes mellitus with foot ulcer (principal); L97.514 Non-pressure chronic ulcer of other part of right foot with necrosis of bone; L97.412 Non-pressure chronic ulcer of right heel and midfoot with fat layer exposed; E11.69 Type 2 diabetes mellitus with other specified complication; M86.171 Other acute osteomyelitis, right ankle and foot; L03.115 Cellulitis of right lower limb; E11.42 Type 2 diabetes mellitus with diabetic polyneuropathy; E11.51 Type 2 diabetes mellitus with diabetic peripheral angiopathy without gangrene; I25.10 Atherosclerotic heart disease of native coronary artery without angina pectoris; I10 Essential (primary) hypertension; E78.5 Hyperlipidemia, unspecified; Z79.01 Long term (current) use of anticoagulants; Z79.82 Long term (current) use of aspirin; Z79.899 Other long term (current) drug therapy; Z95.1 Presence of aortocoronary bypass graft
CPT/HCPCS: 11042; 87070; 87075; 87077; 87186; 87205; 97605; 99213; G0463

== ENCOUNTER 2020-03-11 11:45 | Outpatient (RCR) | payer MEDICARE, OTHER, SELFPAY ==
[2020-02-16 00:15] VITALS: BP 150/85; PULSE 59; RESP 16; TEMP 36.4
[2020-02-19 11:52] VITALS: BP 139/56; PULSE 72; RESP 18; TEMP 36.2; BMI 25.8
--- NOTE | 2020-02-19 14:52 | PCM.WC.PN ---
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 Current Visit: Yes Code(s): L97.514 - Non-pressure chronic ulcer of other part of right foot with necrosis of bone (3) Peripheral arterial occlusive disease Status: Chronic Current Visit: Yes Code(s): I77.9 - Disorder of arteries and arterioles, unspecified (4) Diabetes with ulcer of toe Status: Chronic Current Visit: Yes Qualifiers: Diabetes mellitus type: type 2 Laterality: right Non-pressure ulcer stage: with fat layer exposed Qualified Code(s): E11.621 - Type 2 diabetes mellitus with foot ulcer; L97.512 - Non-pressure chronic ulcer of other part of right foot with fat layer exposed Code(s): E11.621 - Type 2 diabetes mellitus with foot ulcer; L97.509 - Non-pressure chronic ulcer of other part of unspecified foot with unspecified severity (5) Type 2 diabetes, controlled, with ulcer of heel Status: Chronic Current Visit: Yes Code(s): E11.621 - Type 2 diabetes mellitus with foot ulcer; L97.409 - Non-pressure chronic ulcer of unspecified heel and midfoot with unspecified severity (6) Type II diabetes mellitus Status: Chronic Current Visit: Yes Qualifiers: Diabetes mellitus prison insulin use: without unit secretary use Diabetes mellitus complication status: with skin complications Diabetes mellitus complication detail: with foot ulcer Qualified Code(s): E11.621 - Type 2 diabetes mellitus with foot ulcer; L97.509 - Non-pressure chronic ulcer of other part of unspecified foot with unspecified severity Code(s): E11.9 - Type 2 diabetes mellitus without complications Comment: Valdez grade 3 Type of Wound Date of Service: 02/19/20 Chief Complaint: Nonhealing ulcer right heel, Valdez Grade 3 diabetic ulcer. History of Wound: Gibson is here for evaluation of an ulcer of his right heel. He was recently treated for this same area with Theraskin application and was discharged in January 2019. He had noticed increased pain in his heel in March and his noted that the area had opened after his casing finisher and stuffer had debrided some callus from the area. He has been applying Aquacel and gauze to the ulcer. He does follow with Dr. Navas regularly and had a bypass of his right SFA and popliteal arteries in September 2018. He has had procedures for his arterial disease in past to both of his lower extremities. He has tried alternative treatments with supplements and chelation therapy in the past. He also has diabetes and recent A1C was 7.2% He does wear diabetic shoes. He had been undergoing chelation treatments by Dr. German in [place]. He denies fever, chills, erythema or heavy drainage. He reports significant pain and discomfort of his right heel and his entire right leg which no one can explain. In March 2019, he was hospitalized due to occlusion of his bypass graft in his right leg and Dr. Navas was able to open it 50%. He also has blockages in his left leg. Dr. Navas is unable to revascularize either leg at this time and he may ultimately require limb amputation if his vascular disease worsens. December 11, 2019, he was sent to the emergency room with worsening of his ulcer and cellulitis. Dr. Good performed surgical debridement on December 12, 2019 and he was treated with IV antibiotics for over 4 weeks and was in the transitional care unit at [facility] for Rehab and treatment with wound vac. He was discharged on January 23, 2020 to home with continued wound vac treatment. Progress of Wound: Gibson is here to follow up for nonhealing ulcer of his right heel and dorsal right foot and second toe. He tolerated Promogran and medihoney. His wound culture was positive for VRE. He denies any increased drainage, pain or erythema. - Physical Exam Vital Signs Temp Pulse Resp BP 97.1 F L 72 18 139/56 H 02/19/20 11:52 02/19/20 11:52 02/19/20 11:52 02/19/20 11:52 General: Alert, Oriented x3, Cooperative, No apparent distress HEENT: Atraumatic, Normocephalic Oral: Moist Mucosa Extremities: Cool, Diminished Peripheral Pulses, Edema Skin: Ulcer/ Wound Wound Measurements and Assessment - Nurse 1 - General Ulcer Measurement Start: 02/19/20 08:37 Freq: Status: Active Protocol: Activity Type Activity Date Activity User E-Sign Co-Sign Detail Recorded Client Recorded Date Recorded By Document 02/19/20 11:52 RB [id number] 02/19/20 12:06 02/19/20 11:52 Wound Center Nurse 1 [Ulcer Assessment] #19 Right Dorsal Foot -Combined with other wound No -Current Size (cm) - Length 0.3 -Current Size (cm) - Width 0.4 -Current Size (cm) - Depth 0.1 -Total Square Cm 0.12 -Tunneling No -Undermining/Tunneling No -Circular Undermining No -Exudate Amt Small -Exudate Type Serosanguineous -Wound Margin Flat & Intact -Granulation Amt Medium (34-66%) -Granulation Quality Red -Slough/Fibrin Yes -Necrosis Amt Small (1-33%) -Necrotic Tissue Type Adherent Slough -Structure Exposed N/A -Texture (Shahana-wound Skin Appearance) Assessed, Scarring -Moisture (Shahana-wound Skin Appearance Assessed ) -Color (Shahana-wound Skin Appearance) Assessed -Temperature (Shahana-wound Skin No Abnormality Appearance) (Pt Warm) -Tenderness on Palpation (Shahana-wound No Skin Appearance) -Ulcer Cleansing Wound Cleanser -Foul Odor after Cleansing No -Anesthetic Used 4% Lidocaine Solution #18 Right 2nd toe Dorsal CLUSTER -Combined with other wound No -Current Size (cm) - Length 0.1 -Current Size (cm) - Width 0.1 -Current Size (cm) - Depth 0.1 -Total Square Cm 0.01 -Epithelialization Large 67-100% -Tunneling No -Undermining/Tunneling No -Circular Undermining No -Exudate Amt None Present -Granulation Amt Large (67-100%) -Granulation Quality [place] -Slough/Fibrin No -Necrosis Amt None Present (0 %) -Structure Exposed N/A -Texture (Shahana-wound Skin Appearance) Assessed -Moisture (Shahana-wound Skin Appearance Assessed ) -Color (Shahana-wound Skin Appearance) Assessed -Temperature (Shahana-wound Skin No Abnormality Appearance) (Pt Warm) -Tenderness on Palpation (Shahana-wound No Skin Appearance) -Ulcer Cleansing Wound Cleanser -Foul Odor after Cleansing No -Anesthetic Used 4% Lidocaine Solution #17- R HEEL -Combined with other wound No -Current Size (cm) - Length 0.3 -Current Size (cm) - Width 0.4 -Current Size (cm) - Depth 0.5 -Total Square Cm 0.12 -Tunneling No -Undermining/Tunneling No -Circular Undermining No -Exudate Amt Medium -Exudate Type Serosanguineous -Wound Margin Thickened & Rolled Under -Granulation Amt Medium (34-66%) -Granulation Quality [place] -Slough/Fibrin Yes -Necrosis Amt Small (1-33%) -Necrotic Tissue Type Adherent Slough -Structure Exposed N/A -Texture (Shahana-wound Skin Appearance) Assessed,Callus -Moisture (Shahana-wound Skin Appearance Assessed ) -Color (Shahana-wound Skin Appearance) Assessed -Temperature (Shahana-wound Skin No Abnormality Appearance) (Pt Warm) -Tenderness on Palpation (Shahana-wound No Skin Appearance) -Ulcer Cleansing Wound Cleanser -Foul Odor after Cleansing No -Anesthetic Used 4% Lidocaine Solution [Edema Assessment] -Lower Limb Edema Present Yes -Right Calf (cm) 29 -Right Ankle (cm) 21 WC - Nurse 2 - General Ulcer CM Notes Start: 02/19/20 08:37 Freq: Status: Active Protocol: Activity Type Activity Date Activity User E-Sign Co-Sign Detail Recorded Client Recorded Date Recorded By Document 02/19/20 12:11 MW [id number] 02/19/20 12:39 MW 02/19/20 12:11 Wound Center Nurse 2 [Procedure/Treatment] #19 Right Dorsal Foot -Time 12:12 -Correct Patient Yes -Correct Side, Site, Position Yes -Correct Procedure Yes -Procedure Performed Yes -Type of Procedure Debridement -Clinical Debridement Subcutaneous -Tissue Removed Subcutaneous -Post Debridement (cm) - Length 0.4 -Post Debridement (cm) - Width 0.6 -Post Debridement (cm) - Depth 0.1 -Total Square (Post) (cm) 0.24 -Area of Debridement (cm) - Length 0.4 -Area of Debridement (cm) - Width 0.4 -Total Square (Area) (cm) 0.16 -Tunneling No -Undermining/Tunneling No -Circular Undermining No -Wound/Ulcer Outcome Not Healed -Ulcer Cleansing Rinsed/ Irrigated with Saline -Foul Odor after Cleansing No -Bioengineered Tissue No -Bleeding Controlled with Pressure -Offloading No -Treatment Response Procedure Tolerated Well -Debridement - Subq, 1st 20sq cm Yes #18 Right 2nd toe Dorsal CLUSTER -Time 12:13 -Correct Patient Yes -Correct Side, Site, Position Yes -Correct Procedure Yes -Procedure Performed Yes -Type of Procedure Debridement -Clinical Debridement Subcutaneous -Tissue Removed Subcutaneous -Post Debridement (cm) - Length 0.3 -Post Debridement (cm) - Width 0.3 -Post Debridement (cm) - Depth 0.1 -Total Square (Post) (cm) 0.09 -Area of Debridement (cm) - Length 0.3 -Area of Debridement (cm) - Width 0.3 -Total Square (Area) (cm) 0.09 -Tunneling No -Undermining/Tunneling No -Circular Undermining No -Wound/Ulcer Outcome Not Healed -Ulcer Cleansing Rinsed/ Irrigated with Saline -Foul Odor after Cleansing No -Bioengineered Tissue No -Bleeding Controlled with Pressure -Offloading No -Debridement - Subq, 1st 20sq cm No #17- R HEEL -Time 12:13 -Correct Patient Yes -Correct Side, Site, Position Yes -Correct Procedure Yes -Procedure Performed Yes -Type of Procedure Debridement -Clinical Debridement Subcutaneous -Tissue Removed Subcutaneous -Post Debridement (cm) - Length 0.9 -Post Debridement (cm) - Width 0.5 -Post Debridement (cm) - Depth 0.5 -Total Square (Post) (cm) 0.45 -Area of Debridement (cm) - Length 0.9 -Area of Debridement (cm) - Width 0.5 -Total Square (Area) (cm) 0.45 -Tunneling No -Undermining/Tunneling No -Circular Undermining No -Wound/Ulcer Outcome Not Healed -Ulcer Cleansing Rinsed/ Irrigated with Saline -Foul Odor after Cleansing No -Bioengineered Tissue No -Bleeding Controlled with Pressure -Offloading No -Treatment Response Procedure Tolerated Well -Debridement - Subq, 20sq cm No [See Physician Procedure note for Specifics] Pain Scale: 0-10 Numeric [Pain] -Is Patient Pain Free? Yes WC - Nurse 3 - General Ulcer D/C NN Start: 02/19/20 08:37 Freq: Status: Active Protocol: Activity Type Activity Date Activity User E-Sign Co-Sign Detail Recorded Client Recorded Date Recorded By Document 02/19/20 13:05 RB [id number] 02/19/20 13:08 RB 02/19/20 13:05 Wound Care Nurse 3 [Wound Dressing] #19 Right Dorsal Foot -Ulcer Cleansing Rinsed/ Irrigated with Saline -Primary Dressing Applied Promogran -Other Dressing promogran and medihoney -Primary Dressing Covered/Secured Dry Gauze & with Roll Gauze, Secured with Tape -Promogran 1 #18 Right 2nd toe Dorsal CLUSTER -Primary Dressing Applied NonAdherent Contact Layer -Other Dressing hydrogel -Primary Dressing Covered/Secured Dry Gauze, with Secured with Tape #17- R HEEL -Ulcer Cleansing Rinsed/ Irrigated with Saline -Other Dressing promogran and medihoney -Primary Dressing Covered/Secured Dry Gauze & with Roll Gauze, Secured with Tape -Other Covering abd nurses hat to heel [Compression Applied] Right -Other garry then surgical shoe foot [Post Procedure Tolerated] -Treatment Response Procedure Tolerated Well Pain Scale: 0-10 Numeric [Pain] -Is Patient Pain Free? Yes Teaching: Wound Center [Wound Center Education] (Items with an * have Printed Materials Available- Please identify what is given to patient under the Teaching materials given to patient and caregiver Section. Eliminating Foot Pressure -Person Taught Patient -Teaching Method Discussion -Response to teaching Reinforcement needed WC - Visit Discharge [Visit Discharge Information] -Discharge Condition Stable -Ambulatory Status Wheelchair -Transportation Private Auto -Medication Reconcilliation completed No & provided to patient/care provider -Clinical Summary of Care Provided Yes Psych/Mental Status: Normal Affect, Appropriate Debridement Note Post-Debridement Measurements/Treatment WC - Nurse 2 - General Ulcer CM Notes Start: 02/19/20 08:37 Freq: Status: Active Protocol: Activity Type Activity Date Activity User E-Sign Co-Sign Detail Recorded Client Recorded Date Recorded By Document 02/19/20 12:11 MW [id number] 02/19/20 12:39 MW 02/19/20 12:11 Wound Center Nurse 2 #19 Right Dorsal Foot -Time 12:12 -Correct Patient Yes -Correct Side, Site, Position Yes -Correct Procedure Yes -Procedure Performed Yes -Type of Procedure Debridement -Clinical Debridement Subcutaneous -Tissue Removed Subcutaneous -Post Debridement (cm) - Length 0.4 -Post Debridement (cm) - Width 0.6 -Post Debridement (cm) - Depth 0.1 -Total Square (Post) (cm) 0.24 -Area of Debridement (cm) - Length 0.4 -Area of Debridement (cm) - Width 0.4 -Total Square (Area) (cm) 0.16 -Tunneling No -Undermining/Tunneling No -Circular Undermining No -Wound/Ulcer Outcome Not Healed -Ulcer Cleansing Rinsed/ Irrigated with Saline -Foul Odor after Cleansing No -Bioengineered Tissue No -Bleeding Controlled with Pressure -Offloading No -Treatment Response Procedure Tolerated Well -Debridement - Subq, 1st 20sq cm Yes #18 Right 2nd toe Dorsal CLUSTER -Time 12:13 -Correct Patient Yes -Correct Side, Site, Position Yes -Correct Procedure Yes -Procedure Performed Yes -Type of Procedure Debridement -Clinical Debridement Subcutaneous -Tissue Removed Subcutaneous -Post Debridement (cm) - Length 0.3 -Post Debridement (cm) - Width 0.3 -Post Debridement (cm) - Depth 0.1 -Total Square (Post) (cm) 0.09 -Area of Debridement (cm) - Length 0.3 -Area of Debridement (cm) - Width 0.3 -Total Square (Area) (cm) 0.09 -Tunneling No -Undermining/Tunneling No -Circular Undermining No -Wound/Ulcer Outcome Not Healed -Ulcer Cleansing Rinsed/ Irrigated with Saline -Foul Odor after Cleansing No -Bioengineered Tissue No -Bleeding Controlled with Pressure -Offloading No -Debridement - Subq, 1st 20sq cm No #17- R HEEL -Time 12:13 -Correct Patient Yes -Correct Side, Site, Position Yes -Correct Procedure Yes -Procedure Performed Yes -Type of Procedure Debridement -Clinical Debridement Subcutaneous -Tissue Removed Subcutaneous -Post Debridement (cm) - Length 0.9 -Post Debridement (cm) - Width 0.5 -Post Debridement (cm) - Depth 0.5 -Total Square (Post) (cm) 0.45 -Area of Debridement (cm) - Length 0.9 -Area of Debridement (cm) - Width 0.5 -Total Square (Area) (cm) 0.45 -Tunneling No -Undermining/Tunneling No -Circular Undermining No -Wound/Ulcer Outcome Not Healed -Ulcer Cleansing Rinsed/ Irrigated with Saline -Foul Odor after Cleansing No -Bioengineered Tissue No -Bleeding Controlled with Pressure -Offloading No -Treatment Response Procedure Tolerated Well -Debridement - Subq, 1st 20sq cm No Pain Scale: 0-10 Numeric Is Patient Pain Free? Yes WC - Nurse 3 - General Ulcer D/C NN Start: 02/19/20 08:37 Freq: Status: Active Protocol: Activity Type Activity Date Activity User E-Sign Co-Sign Detail Recorded Client Recorded Date Recorded By Document 02/19/20 13:05 RB [id number] 02/19/20 13:08 RB 02/19/20 13:05 Wound Care Nurse 3 #19 Right Dorsal Foot -Ulcer Cleansing Rinsed/ Irrigated with Saline -Primary Dressing Applied Promogran -Other Dressing promogran and medihoney -Primary Dressing Covered/Secured with Dry Gauze & Roll Gauze, Secured with Tape -Promogran 1 #18 Right 2nd toe Dorsal CLUSTER -Primary Dressing Applied NonAdherent Contact Layer -Other Dressing hydrogel -Primary Dressing Covered/Secured with Dry Gauze, Secured with Tape #17- R HEEL -Ulcer Cleansing Rinsed/ Irrigated with Saline -Other Dressing promogran and medihoney -Primary Dressing Covered/Secured with Dry Gauze & Roll Gauze, Secured with Tape -Other Covering abd nurses hat to heel Right -Other garry then surgical shoe foot Treatment Response Procedure Tolerated Well Pain Scale: 0-10 Numeric Is Patient Pain Free? Yes Teaching: Wound Center Eliminating Foot Pressure -Person Taught Patient -Teaching Method Discussion -Response to teaching Reinforcement needed WC - Visit Discharge Discharge Condition Stable Ambulatory Status Wheelchair Transportation Private Auto Medication Reconcilliation completed & No provided to patient/care provider Clinical Summary of Care Provided Yes Wound debrided: right dorsal foot Laterality: Right Type of Debridement: Excisional debridement Anesthesia Used: 4% Lidocaine Solution Depth: Down to and including healthy tissue, in the subcutaneous layer Percentage of wound debrided: 100 Instrument Used: 3mm curette Tissue Removed: Yellow slough, devitalized tissue Severity: Fat Layer Exposed Amount of bleeding with debridement: Mild Bleeding Controlled with: Compression and gauze Patient tolerated procedure well - Additional Wound Wound debrided: Right second toe cluster dorsal Laterality: Right Wound Grade/Stage: GRade 1 Type of Debridement: Excisional debridement Anesthesia Used: 4% Lidocaine Solution Depth: Down to and including healthy tissue, in the subcutaneous layer Percentage of wound debrided: 100 Instrument Used: 3mm curette Tissue Removed: Yellow slough, devitalized tissue Severity: Fat Layer Exposed Amount of bleeding with debridement: Mild Bleeding Controlled with: Compression and gauze Patient tolerated procedure: Patient tolerated procedure well - Additional Wound Wound debrided: Right heel Laterality: Right Wound Grade/Stage: Grade 3 Type of Debridement: Excisional debridement Anesthesia Used: 4% Lidocaine Solution, 5% Lidocaine Gel Depth: Down to and including healthy tissue, in the subcutaneous layer Percentage of wound debrided: 100 Instrument Used: 3mm curette Tissue Removed: Yellow slough, devitalized tissue Severity: Fat Layer Exposed Amount of bleeding with debridement: Mild Bleeding Controlled with: Compression and gauze Patient tolerated procedure: Patient tolerated procedure well Assessment/Plan Active Problems Type 2 diabetes mellitus with diabetic polyneuropathy (Chronic) Ulcer of right foot with necrosis of bone (Chronic) Peripheral arterial occlusive disease (Chronic) Diabetes with ulcer of toe (Chronic) Type 2 diabetes, controlled, with ulcer of heel (Chronic) Type II diabetes mellitus (Chronic) Valdez grade 3 Assessment: 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 Diabetes mellitus - controlled. Peripheral vascular disease - status post revascularization 08/07/18 and 03/2019 Plan: Demetriuss ulcer was evaluated and debrided today with slight improvement from last week. Will continue to use medihoney and promogran to his right heel and dorsal foot and continue collagen hydrogel to his right second toe. Will treat him with Linezolid for VRE on his wound culture based on sensitivities. Encouraged to call with any increase in pain or drainage, fever or chills. F/U in 1 week.
[2020-02-26 12:29] VITALS: BP 167/70; PULSE 68; RESP 16; TEMP 36.6; BMI 25.8
--- NOTE | 2020-02-26 15:21 | PN.PCM_ITS ---
(1) Type 2 diabetes mellitus with diabetic polyneuropathy Status: Chronic Qualifiers: Diabetes mellitus mcc insulin use: without vermin exterminator use Code(s): E11.42 - Type 2 diabetes mellitus with diabetic polyneuropathy (2) 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 Code(s): L97.514 - Non-pressure chronic ulcer of other part of right foot with necrosis of bone (3) Peripheral arterial occlusive disease Status: Chronic Code(s): I77.9 - Disorder of arteries and arterioles, unspecified (4) Diabetes with ulcer of toe Status: Chronic Qualifiers: Diabetes mellitus type: type 2 Laterality: right Non-pressure ulcer stage: with fat layer exposed Qualified Code(s): E11.621 - Type 2 diabetes mellitus with foot ulcer; L97.512 - Non-pressure chronic ulcer of other part of right foot with fat layer exposed Code(s): E11.621 - Type 2 diabetes mellitus with foot ulcer; L97.509 - Non- pressure chronic ulcer of other part of unspecified foot with unspecified se verity (5) Type 2 diabetes, controlled, with ulcer of heel Status: Chronic Code(s): E11.621 - Type 2 diabetes mellitus with foot ulcer; L97.409 - Non-pressure chronic ulcer of unspecified heel and midfoot with unspecified severity (6) Type II diabetes mellitus Status: Chronic Qualifiers: Diabetes mellitus mcc insulin use: without mcc use Diabetes mellitus complication status: with skin complications Diabetes mellitus complication detail: with foot ulcer Qualified Code(s): E11.621 - Type 2 diabetes mellitus with foot ulcer; L97.509 - Non-pressure chronic ulcer of other part of unspecified foot with unspecified severity Code(s): E11.9 - Type 2 diabetes mellitus without complications Comment: Valdez grade 3 Type of Wound Date of Service: 02/26/20 Chief Complaint: Nonhealing ulcer right heel, Valdez Grade 3 diabetic ulcer. History of Wound: Gibson is here for evaluation of an ulcer of his right heel. He was recently treated for this same area with Theraskin application and was discharged in January 2019. He had noticed increased pain in his heel in March and his noted that the area had opened after his electronic organ technician had debrided some callus from the area. He has been applying Aquacel and gauze to the ulcer. He does follow with Dr. Navas regularly and had a bypass of his right SFA and popliteal arteries in September 2018. He has had procedures for his arterial disease in past to both of his lower extremities. He has tried alternative treatments with supplements and chelation therapy in the past. He also has diabetes and recent A1C was 7.2% He does wear diabetic shoes. He had been undergoing melanie lation treatments by Dr. Germna in [place]. He denies fever, chills, erythema or heavy drainage. He reports significant pain and discomfort of his right heel and his entire right leg which no one can explain. In March 2019, he was hospitalized due to occlusion of his bypass graft in his right leg and Dr. Navas was able to open it 50%. He also has blockages in his left leg. Dr. Navas is unable to revascularize either leg at this time and he may ultimately require limb amputation if his vascular disease worsens. December 11, 2019, he was sent to the emergency room with worsening of his ulcer and cellulitis. Dr. Good performed surgical debridement on December 12, 2019 and he was treated with IV antibiotics for over 4 weeks and was in the transitional care unit at [facility] for Rehab and treatment with wound vac. He was discharged on January 23, 2020 to home with continued wound vac treatment. Progress of Wound: Gibson is here to follow up for nonhealing ulcer of his right heel and dorsal right foot and second toe. He tolerated Promogran and medihoney. His wound culture was positive for VRE and he is tolerating Linezolid. His states that there has been increased drainage. He denies any increased pain or erythema. - Physical Exam Vital Signs Temp Pulse Resp BP 97.8 F 68 16 167/70 H 02/26/20 12:29 02/26/20 12:29 02/26/20 12:29 02/26/20 12:29 General: Alert, Oriented x3, Cooperative, No apparent distress HEENT: Atraumatic, Normocephalic Oral: Moist Mucosa Extremities: No edema Skin: Ulcer/ Wound Wound Measurements and Assessment - Nurse 1 - General Ulcer Measurement Start: 02/19/20 08:37 Freq: Status: Active Protocol: Activity Type Activity Date Activity User E-Sign Co-Sign Detail Recorded Client Recorded Date Recorded By Document 02/26/20 12:29 [facility] [id number] 02/26/20 12:38 [facility] 02/26/20 12:29 Wound Center Nurse 1 [Ulcer Assessment] #19 Right Dorsal Foot -Combined with other wound No -Current Size (cm) - Length 0.1 -Current Size (cm) - Width 0.1 -Current Size (cm) - Depth 0.1 -Total Square Cm 0.01 -Photo Taken No -Epithelialization Large 67-100% -Tunneling No -Undermining/Tunneling No -Circular Undermining No -Exudate Amt None Present -Granulation Amt None Present (0 %) -Slough/Fibrin Yes -Necrosis Amt Small (1-33%) -Necrotic Tissue Type Eschar -Texture (Shahana-wound Skin Appearance) Assessed -Moisture (Shahana-wound Skin Appearance Assessed ) -Color (Shahana-wound Skin Appearance) Assessed -Temperature (Hsahana-wound Skin No Abnormality Appearance) (Pt Warm) -Tenderness on Palpation (Shahana-wound No Skin Appearance) -Ulcer Cleansing Rinsed/ Irrigated with Saline -Foul Odor after Cleansing No -Anesthetic Used 5% Lidocaine Gel #18 Right 2nd toe Dorsal CLUSTER -Combined with other wound No -Current Size (cm) - Length 0.1 -Current Size (cm) - Width 0.1 -Current Size (cm) - Depth 0.1 -Total Square Cm 0.01 -Photo Taken No -Epithelialization Large 67-100% -Tunneling No -Undermining/Tunneling No -Circular Undermining No -Exudate Amt None Present -Granulation Amt None Present (0 %) -Slough/Fibrin Yes -Necrosis Amt Small (1-33%) -Necrotic Tissue Type Eschar -Texture (Shahana-wound Skin Appearance) Assessed, Scarring -Moisture (Shahana-wound Skin Appearance Assessed ) -Color (Shahana-wound Skin Appearance) Assessed -Temperature (Shahana-wound Skin No Abnormality Appearance) (Pt Warm) -Tenderness on Palpation (Shahana-wound No Skin Appearance) -Ulcer Cleansing Rinsed/ Irrigated with Saline -Foul Odor after Cleansing No -Anesthetic Used 5% Lidocaine Gel #17- R HEEL -Combined with other wound No -Current Size (cm) - Length 0.7 -Current Size (cm) - Width 0.5 -Current Size (cm) - Depth 0.4 -Total Square Cm 0.35 -Photo Taken No -Epithelialization None Present -Tunneling No -Undermining/Tunneling No -Circular Undermining Yes -Exudate Amt Small -Exudate Type Serous -Wound Margin Distinct, Outline Attached -Granulation Amt Small (1-33%) -Granulation Quality Red -Slough/Fibrin No -Necrosis Amt None Present (0 %) -Texture (Shahana-wound Skin Appearance) Assessed,Callus ,Scarring -Moisture (Shahana-wound Skin Appearance Assessed, ) Maceration -Color (Shahana-wound Skin Appearance) Palor -Temperature (Shahana-wound Skin No Abnormality Appearance) (Pt Warm) -Tenderness on Palpation (Shahana-wound Yes Skin Appearance) -Ulcer Cleansing Rinsed/ Irrigated with Saline -Foul Odor after Cleansing No -Anesthetic Used 5% Lidocaine Gel WC - Nurse 2 - General Ulcer CM Notes Start: 02/19/20 08:37 Freq: Status: Active Protocol: Activity Type Activity Date Activity User E-Sign Co-Sign Detail Recorded Client Recorded Date Recorded By Document 02/26/20 12:48 MW [id number] 02/26/20 13:11 MW 02/26/20 12:48 Wound Center Nurse 2 [Procedure/Treatment] #19 Right Dorsal Foot -Time 12:50 -Correct Patient Yes -Correct Side, Site, Position Yes -Correct Procedure Yes -Procedure Performed Yes -Type of Procedure Debridement -Clinical Debridement Subcutaneous -Tissue Removed Subcutaneous -Post Debridement (cm) - Length 0.2 -Post Debridement (cm) - Width 0.3 -Post Debridement (cm) - Depth 0.1 -Total Square (Post) (cm) 0.06 -Area of Debridement (cm) - Length 0.2 -Area of Debridement (cm) - Width 0.3 -Total Square (Area) (cm) 0.06 -Tunneling No -Undermining/Tunneling No -Circular Undermining No -Wound/Ulcer Outcome Not Healed -Ulcer Cleansing Rinsed/ Irrigated with Saline -Foul Odor after Cleansing No -Bioengineered Tissue No -Bleeding Controlled with Pressure -Offloading No -Treatment Response Procedure Tolerated Well -Debridement - Subq, 1st 20sq cm Yes #18 Right 2nd toe Dorsal CLUSTER -Time 12:51 -Correct Patient Yes -Correct Side, Site, Position Yes -Correct Procedure Yes -Procedure Performed Yes -Type of Procedure Debridement -Clinical Debridement Subcutaneous -Tissue Removed Subcutaneous -Post Debridement (cm) - Length 0.2 -Post Debridement (cm) - Width 0.2 -Post Debridement (cm) - Depth 0.1 -Total Square (Post) (cm) 0.04 -Area of Debridement (cm) - Length 0.2 -Area of Debridement (cm) - Width 0.2 -Total Square (Area) (cm) 0.04 -Tunneling No -Undermining/Tunneling No -Circular Undermining No -Wound/Ulcer Outcome Not Healed -Ulcer Cleansing Rinsed/ Irrigated with Saline -Foul Odor after Cleansing No -Bioengineered Tissue No -Bleeding Controlled with Pressure -Offloading No -Treatment Response Procedure Tolerated Well -Debridement - Subq, 1st 20sq cm No #17- R HEEL -Time 12:51 -Correct Patient Yes -Correct Side, Site, Position Yes -Correct Procedure Yes -Procedure Performed Yes -Type of Procedure Debridement -Clinical Debridement Subcutaneous -Tissue Removed Subcutaneous -Post Debridement (cm) - Length 0.8 -Post Debridement (cm) - Width 0.4 -Post Debridement (cm) - Depth 0.6 -Total Square (Post) (cm) 0.32 -Area of Debridement (cm) - Length 0.8 -Area of Debridement (cm) - Width 0.4 -Total Square (Area) (cm) 0.32 -Tunneling No -Undermining/Tunneling No -Circular Undermining No -Wound/Ulcer Outcome Not Healed -Ulcer Cleansing Rinsed/ Irrigated with Saline -Foul Odor after Cleansing No -Bioengineered Tissue No -Injectable Lidocaine (%) 2 -Lidocaine (ml) 5 -Bleeding Controlled with Pressure -Offloading No -Treatment Response Procedure Tolerated Well -Debridement - Subq, 1st 20sq cm No [See Physician Procedure note for Specifics] Pain Scale: 0-10 Numeric [Pain] -Is Patient Pain Free? Yes WC - Nurse 3 - General Ulcer D/C NN Start: 02/19/20 08:37 Freq: Status: Active Protocol: Activity Type Activity Date Activity User E-Sign Co-Sign Detail Recorded Client Recorded Date Recorded By Document 02/26/20 13:38 RB [id number] 02/26/20 13:40 RB 02/26/20 13:38 Wound Care Nurse 3 [Wound Dressing] #19 Right Dorsal Foot -Ulcer Cleansing Rinsed/ Irrigated with Saline -Primary Dressing Applied C Hydrogel ($), NonAdherent Contact Layer -Primary Dressing Covered/Secured Dry Gauze,Dry with Gauze & Roll Gauze,Secured with Tape #18 Right 2nd toe Dorsal CLUSTER -Primary Dressing Applied NonAdherent Contact Layer -Other Dressing hydrogel -Primary Dressing Covered/Secured Dry Gauze,Dry with Gauze & Roll Gauze,Secured with Tape #17- R HEEL -Ulcer Cleansing Rinsed/ Irrigated with Saline -Primary Dressing Applied Promogran -Primary Dressing Covered/Secured Dry Gauze,Dry with Gauze & Roll Gauze,Secured with Tape -Other Covering abd nurses hat -Promogran 1 [Post Procedure Tolerated] -Treatment Response Procedure Tolerated Well Pain Scale: 0-10 Numeric [Pain] -Is Patient Pain Free? Yes WC - Visit Discharge [Visit Discharge Information] -Discharge Condition Stable -Ambulatory Status Wheelchair -Transportation Private Auto -Medication Reconcilliation completed No & provided to patient/care provider -Clinical Summary of Care Provided Yes Psych/Mental Status: Normal Affect, Appropriate Debridement Note Post-Debridement Measurements/Treatment WC - Nurse 2 - General Ulcer CM Notes Start: 02/19/20 08:37 Freq: Status: Active Protocol: Activity Type Activity Date Activity User E-Sign Co-Sign Detail Recorded Client Recorded Date Recorded By Document 02/19/20 12:11 MW [id number] 02/19/20 12:39 MW Document 02/26/20 12:48 MW [id number] 02/26/20 13:11 MW 02/19/20 02/26/20 12:11 12:48 Wound Center Nurse 2 #19 Right Dorsal Foot -Time 12:12 12:50 -Correct Patient Yes Yes -Correct Side, Site, Position Yes Yes -Correct Procedure Yes Yes -Procedure Performed Yes Yes -Type of Procedure Debridement Debridement -Clinical Debridement Subcutaneous Subcutaneous -Tissue Removed Subcutaneous Subcutaneous -Post Debridement (cm) - Length 0.4 0.2 -Post Debridement (cm) - Width 0.6 0.3 -Post Debridement (cm) - Depth 0.1 0.1 -Total Square (Post) (cm) 0.24 0.06 -Area of Debridement (cm) - Length 0.4 0.2 -Area of Debridement (cm) - Width 0.4 0.3 -Total Square (Area) (cm) 0.16 0.06 -Tunneling No No -Undermining/Tunneling No No -Circular Undermining No No -Wound/Ulcer Outcome Not Healed Not Healed -Ulcer Cleansing Rinsed/ Rinsed/ Irrigated with Irrigated with Saline Saline -Foul Odor after Cleansing No No -Bioengineered Tissue No No -Bleeding Controlled with Pressure Pressure -Offloading No No -Treatment Response Procedure Procedure Tolerated Well Tolerated Well -Debridement - Subq, 1st 20sq cm Yes Yes #18 Right 2nd toe Dorsal CLUSTER -Time 12:13 12:51 -Correct Patient Yes Yes -Correct Side, Site, Position Yes Yes -Correct Procedure Yes Yes -Procedure Performed Yes Yes -Type of Procedure Debridement Debridement -Clinical Debridement Subcutaneous Subcutaneous -Tissue Removed Subcutaneous Subcutaneous -Post Debridement (cm) - Length 0.3 0.2 -Post Debridement (cm) - Width 0.3 0.2 -Post Debridement (cm) - Depth 0.1 0.1 -Total Square (Post) (cm) 0.09 0.04 -Area of Debridement (cm) - Length 0.3 0.2 -Area of Debridement (cm) - Width 0.3 0.2 -Total Square (Area) (cm) 0.09 0.04 -Tunneling No No -Undermining/Tunneling No No -Circular Undermining No No -Wound/Ulcer Outcome Not Healed Not Healed -Ulcer Cleansing Rinsed/ Rinsed/ Irrigated with Irrigated with Saline Saline -Foul Odor after Cleansing No No -Bioengineered Tissue No No -Bleeding Controlled with Pressure Pressure -Offloading No No -Treatment Response Procedure Tolerated Well -Debridement - Subq, 1st 20sq cm No No #17- R HEEL -Time 12:13 12:51 -Correct Patient Yes Yes -Correct Side, Site, Position Yes Yes -Correct Procedure Yes Yes -Procedure Performed Yes Yes -Type of Procedure Debridement Debridement -Clinical Debridement Subcutaneous Subcutaneous -Tissue Removed Subcutaneous Subcutaneous -Post Debridement (cm) - Length 0.9 0.8 -Post Debridement (cm) - Width 0.5 0.4 -Post Debridement (cm) - Depth 0.5 0.6 -Total Square (Post) (cm) 0.45 0.32 -Area of Debridement (cm) - Length 0.9 0.8 -Area of Debridement (cm) - Width 0.5 0.4 -Total Square (Area) (cm) 0.45 0.32 -Tunneling No No -Undermining/Tunneling No No -Circular Undermining No No -Wound/Ulcer Outcome Not Healed Not Healed -Ulcer Cleansing Rinsed/ Rinsed/ Irrigated with Irrigated with Saline Saline -Foul Odor after Cleansing No No -Bioengineered Tissue No No -Injectable Lidocaine (%) 2 -Lidocaine (ml) 5 -Bleeding Controlled with Pressure Pressure -Offloading No No -Treatment Response Procedure Procedure Tolerated Well Tolerated Well -Debridement - Subq, 1st 20sq cm No No Pain Scale: 0-10 Numeric Is Patient Pain Free? Yes Yes WC - Nurse 3 - General Ulcer D/C NN Start: 02/19/20 08:37 Freq: Status: Active Protocol: Activity Type Activity Date Activity User E-Sign Co-Sign Detail Recorded Client Recorded Date Recorded By Document 02/19/20 13:05 RB [id number] 02/19/20 13:08 RB Document 02/26/20 13:38 RB [id number] 02/26/20 13:40 RB 02/19/20 02/26/20 13:05 13:38 Wound Care Nurse 3 #19 Right Dorsal Foot -Ulcer Cleansing Rinsed/ Rinsed/ Irrigated with Irrigated with Saline Saline -Primary Dressing Applied Promogran C Hydrogel ($), NonAdherent Contact Layer -Other Dressing promogran and medihoney -Primary Dressing Covered/Secured with Dry Gauze & Dry Gauze,Dry Roll Gauze, Gauze & Roll Secured with Gauze,Secured Tape with Tape -Promogran 1 #18 Right 2nd toe Dorsal CLUSTER -Primary Dressing Applied NonAdherent NonAdherent Contact Layer Contact Layer -Other Dressing hydrogel hydrogel -Primary Dressing Covered/Secured with Dry Gauze, Dry Gauze,Dry Secured with Gauze & Roll Tape Gauze,Secured with Tape #17- R HEEL -Ulcer Cleansing Rinsed/ Rinsed/ Irrigated with Irrigated with Saline Saline -Primary Dressing Applied Promogran -Other Dressing promogran and medihoney -Primary Dressing Covered/Secured with Dry Gauze & Dry Gauze,Dry Roll Gauze, Gauze & Roll Secured with Gauze,Secured Tape with Tape -Other Covering abd nurses hat abd nurses hat to heel -Promogran 1 Right -Other garry then surgical shoe foot Treatment Response Procedure Procedure Tolerated Well Tolerated Well Pain Scale: 0-10 Numeric Is Patient Pain Free? Yes Yes Teaching: Wound Center Eliminating Foot Pressure -Person Taught Patient -Teaching Method Discussion -Response to teaching Reinforcement needed WC - Visit Discharge Discharge Condition Stable Stable Ambulatory Status Wheelchair Wheelchair Transportation Private Auto Private Auto Medication Reconcilliation completed & No No provided to patient/care provider Clinical Summary of Care Provided Yes Yes Wound debrided: right heel Laterality: Right Wound Grade/Stage: Grade 3 Type of Debridement: Excisional debridement Anesthesia Used: 4% Lidocaine Solution, 5% Lidocaine Gel, - - lidocaine 2% 5 ml Depth: Down to and including healthy tissue, in the subcutaneous layer Percentage of wound debrided: 100 Instrument Used: #15 blade, Forceps Tissue Removed: Yellow slough, devitalized tissue Severity: Fat Layer Exposed Amount of bleeding with debridement: Mild Bleeding Controlled with: Compression and gauze Patient tolerated procedure well - Additional Wound Wound debrided: right second toe Laterality: Right Type of Debridement: Excisional debridement Anesthesia Used: 4% Lidocaine Solution, 5% Lidocaine Gel Depth: Down to and including healthy tissue, in the subcutaneous layer Percentage of wound debrided: 100 Instrument Used: 5mm curette Tissue Removed: Yellow slough, devitalized tissue Severity: Fat Layer Exposed Amount of bleeding with debridement: Mild Bleeding Controlled with: Compression and gauze Patient tolerated procedure: Patient tolerated procedure well - Additional Wound Wound debrided: right dorsal foot Laterality: Right Type of Debridement: Excisional debridement Anesthesia Used: 4% Lidocaine Solution, 5% Lidocaine Gel Depth: Down to and including healthy tissue, in the subcutaneous layer Percentage of wound debrided: 100 Instrument Used: 5mm curette Tissue Removed: Yellow slough, devitalized tissue Severity: Fat Layer Exposed Amount of bleeding with debridement: Mild Bleeding Controlled with: Compression and gauze Patient tolerated procedure: Patient tolerated procedure well Assessment/Plan Assessment: 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 Diabetes mellitus - controlled. Peripheral vascular disease - status post revascularization 08/07/18 and 03/2019 Plan: Gibson's ulcer was evaluated and debrided today with slight improvement from last week. Will continue to use promogran to his right heel and dorsal foot and continue collagen hydrogel to his right second toe. Will treat him with Linezolid for VRE on his wound culture based on sensitivities. Encouraged to call with any increase in pain or drainage, fever or chills. F/U in 1 week.
[2020-03-04 12:35] VITALS: BP 129/73; PULSE 76; RESP 16; TEMP 36.5; BMI 25.8
--- NOTE | 2020-03-04 16:31 | PCM.WC.PN ---
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 Current Visit: Yes Code(s): L97.514 - Non-pressure chronic ulcer of other part of right foot with necrosis of bone (3) Peripheral arterial occlusive disease Status: Chronic Current Visit: No Code(s): I77.9 - Disorder of arteries and arterioles, unspecified (4) Diabetes with ulcer of toe Status: Chronic Current Visit: Yes Qualifiers: Diabetes mellitus type: type 2 Laterality: right Non-pressure ulcer stage: with fat layer exposed Qualified Code(s): E11.621 - Type 2 diabetes mellitus with foot ulcer; L97.512 - Non-pressure chronic ulcer of other part of right foot with fat layer exposed Code(s): E11.621 - Type 2 diabetes mellitus with foot ulcer; L97.509 - Non-pressure chronic ulcer of other part of unspecified foot with unspecified severity (5) Type 2 diabetes, controlled, with ulcer of heel Status: Chronic Current Visit: Yes Code(s): E11.621 - Type 2 diabetes mellitus with foot ulcer; L97.409 - Non-pressure chronic ulcer of unspecified heel and midfoot with unspecified severity (6) Type II diabetes mellitus Status: Chronic Current Visit: Yes Qualifiers: Diabetes mellitus senior care insulin use: without bad work gatherer use Diabetes mellitus complication status: with skin complications Diabetes mellitus complication detail: with foot ulcer Qualified Code(s): E11.621 - Type 2 diabetes mellitus with foot ulcer; L97.509 - Non-pressure chronic ulcer of other part of unspecified foot with unspecified severity Code(s): E11.9 - Type 2 diabetes mellitus without complications Comment: Valdez grade 3 Type of Wound Date of Service: 03/04/20 Chief Complaint: Nonhealing ulcer right heel, Valdez Grade 3 diabetic ulcer. History of Wound: Gibson is here for evaluation of an ulcer of his right heel. He was recently treated for this same area with [place]in application and was discharged in January 2019. 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 He has been applying Aquacel and gauze to the ulcer. He does follow with Dr. Navas regularly and had a bypass of his right SFA and popliteal arteries in September 2018. He has had procedures for his arterial disease in past to both of his lower extremities. He has tried alternative treatments with supplements and chelation therapy in the past. He also has diabetes and recent A1C was 7.2% He does wear diabetic shoes. He had been undergoing chelation treatments by Dr. German in [place]. He denies fever, chills, erythema or heavy drainage. He reports significant pain and discomfort of his right heel and his entire right leg which no one can explain. In March 2019, he was hospitalized due to occlusion of his bypass graft in his right leg and Dr. Navas was able to open it 50%. He also has blockages in his left leg. Dr. Navas is unable to revascularize either leg at this time and he may ultimately require limb amputation if his vascular disease worsens. December 11, 2019, he was sent to the emergency room with worsening of his ulcer and cellulitis. Dr. Good performed surgical debridement on December 12, 2019 and he was treated with IV antibiotics for over 4 weeks and was in the transitional care unit at [facility] for Rehab and treatment with wound vac. He was discharged on January 23, 2020 to home with continued wound vac treatment. Progress of Wound: Gibson is here to follow up for nonhealing ulcer of his right heel and dorsal right foot and second toe. He tolerated Promogran. His wound culture was positive for VRE and he is tolerating Linezolid. His states that there has been less drainage. He denies any increased pain or erythema. - Physical Exam Vital Signs Temp Pulse Resp BP 97.7 F L 76 16 129/73 H 03/04/20 12:35 03/04/20 12:35 03/04/20 12:35 03/04/20 12:35 General: Alert, Oriented x3, Cooperative, No apparent distress HEENT: Atraumatic, Normocephalic Oral: Moist Mucosa Abdomen: Soft, Non Tender Extremities: Edema Skin: Ulcer/ Wound Wound Measurements and Assessment - Nurse 1 - General Ulcer Measurement Start: 02/19/20 08:37 Freq: Status: Active Protocol: Activity Type Activity Date Activity User E-Sign Co-Sign Detail Recorded Client Recorded Date Recorded By Document 03/04/20 12:35 [facility] [id number] 03/04/20 12:42 [facility] 03/04/20 12:35 Wound Center Nurse 1 [Ulcer Assessment] #19 Right Dorsal Foot -Combined with other wound No -Current Size (cm) - Length 0.2 -Current Size (cm) - Width 0.2 -Current Size (cm) - Depth 0.1 -Total Square Cm 0.04 -Photo Taken No -Epithelialization None Present -Tunneling No -Undermining/Tunneling No -Circular Undermining No -Exudate Amt None Present -Wound Margin Distinct, Outline Attached -Granulation Amt None Present (0 %) -Slough/Fibrin Yes -Necrosis Amt Large (67-100%) -Necrotic Tissue Type Adherent Slough -Texture (Shahana-wound Skin Appearance) Assessed, Scarring -Moisture (Shahana-wound Skin Appearance Assessed ) -Color (Shahana-wound Skin Appearance) Assessed -Temperature (Shahana-wound Skin No Abnormality Appearance) (Pt Warm) -Tenderness on Palpation (Shahana-wound Yes Skin Appearance) -Ulcer Cleansing Rinsed/ Irrigated with Saline -Foul Odor after Cleansing No -Anesthetic Used 5% Lidocaine Gel #18 Right 2nd toe Dorsal CLUSTER -Combined with other wound No -Current Size (cm) - Length 0.2 -Current Size (cm) - Width 0.2 -Current Size (cm) - Depth 0.1 -Total Square Cm 0.04 -Photo Taken No -Epithelialization None Present -Tunneling No -Undermining/Tunneling No -Circular Undermining No -Exudate Amt None Present -Wound Margin Distinct, Outline Attached -Granulation Amt None Present (0 %) -Slough/Fibrin Yes -Necrosis Amt Large (67-100%) -Necrotic Tissue Type Adherent Slough -Texture (Shahana-wound Skin Appearance) Assessed, Scarring -Moisture (Shahana-wound Skin Appearance Assessed,Dry/ ) Scaly -Color (Shahana-wound Skin Appearance) Assessed -Temperature (Shahana-wound Skin No Abnormality Appearance) (Pt Warm) -Tenderness on Palpation (Shahana-wound No Skin Appearance) -Ulcer Cleansing Rinsed/ Irrigated with Saline -Foul Odor after Cleansing No -Anesthetic Used 5% Lidocaine Gel #17- R HEEL -Combined with other wound No -Current Size (cm) - Length 1.1 -Current Size (cm) - Width 0.7 -Current Size (cm) - Depth 0.6 -Total Square Cm 0.77 -Photo Taken No -Epithelialization None Present -Tunneling No -Undermining/Tunneling No -Circular Undermining No -Exudate Amt Medium -Exudate Type Serosanguineous -Wound Margin Thickened -Granulation Amt Small (1-33%) -Granulation Quality [place] -Slough/Fibrin Yes -Necrosis Amt Medium (34-66%) -Necrotic Tissue Type Adherent Slough -Texture (Shahana-wound Skin Appearance) Assessed -Moisture (Shahana-wound Skin Appearance Assessed, ) Maceration,Dry/ Scaly -Color (Shahana-wound Skin Appearance) Palor -Temperature (Shahana-wound Skin No Abnormality Appearance) (Pt Warm) -Tenderness on Palpation (Shahana-wound Yes Skin Appearance) -Ulcer Cleansing Rinsed/ Irrigated with Saline -Foul Odor after Cleansing No -Anesthetic Used 5% Lidocaine Gel WC - Nurse 2 - General Ulcer CM Notes Start: 02/19/20 08:37 Freq: Status: Active Protocol: Activity Type Activity Date Activity User E-Sign Co-Sign Detail Recorded Client Recorded Date Recorded By Document 03/04/20 13:39 MW [id number] 03/04/20 13:59 MW 03/04/20 13:39 Wound Center Nurse 2 [Procedure/Treatment] #19 Right Dorsal Foot -Time 13:39 -Correct Patient Yes -Correct Side, Site, Position Yes -Correct Procedure Yes -Procedure Performed No -Tunneling No -Undermining/Tunneling No -Circular Undermining No -Wound/Ulcer Outcome Healed- Epithelialized -Bleeding Controlled with NA #18 Right 2nd toe Dorsal CLUSTER -Time 13:39 -Correct Patient Yes -Correct Side, Site, Position Yes -Correct Procedure Yes -Procedure Performed Yes -Type of Procedure Debridement -Clinical Debridement Subcutaneous -Tissue Removed Subcutaneous -Post Debridement (cm) - Length 0.2 -Post Debridement (cm) - Width 0.2 -Post Debridement (cm) - Depth 0.1 -Total Square (Post) (cm) 0.04 -Area of Debridement (cm) - Length 0.2 -Area of Debridement (cm) - Width 0.2 -Total Square (Area) (cm) 0.04 -Tunneling No -Undermining/Tunneling No -Circular Undermining No -Wound/Ulcer Outcome Not Healed -Ulcer Cleansing Rinsed/ Irrigated with Saline -Foul Odor after Cleansing No -Bioengineered Tissue No -Bleeding Controlled with Pressure -Offloading No -Treatment Response Procedure Tolerated Well -Debridement - Subq, 1st 20sq cm No #17- R HEEL -Time 13:40 -Correct Patient Yes -Correct Side, Site, Position Yes -Correct Procedure Yes -Procedure Performed Yes -Type of Procedure Debridement -Clinical Debridement Subcutaneous -Tissue Removed Subcutaneous -Post Debridement (cm) - Length 0.7 -Post Debridement (cm) - Width 0.4 -Post Debridement (cm) - Depth 0.4 -Total Square (Post) (cm) 0.28 -Area of Debridement (cm) - Length 0.7 -Area of Debridement (cm) - Width 0.4 -Total Square (Area) (cm) 0.28 -Tunneling No -Undermining/Tunneling No -Circular Undermining No -Wound/Ulcer Outcome Not Healed -Ulcer Cleansing Rinsed/ Irrigated with Saline -Foul Odor after Cleansing No -Bioengineered Tissue No -Bleeding Controlled with Pressure -Offloading No -Treatment Response Procedure Tolerated Well -Debridement - Subq, 1st 20sq cm No [See Physician Procedure note for Specifics] Pain Scale: 0-10 Numeric [Pain] -Is Patient Pain Free? Yes - Nurse 3 - General Ulcer D/C NN Start: 02/19/20 08:37 Freq: Status: Active Protocol: Activity Type Activity Date Activity User E-Sign Co-Sign Detail Recorded Client Recorded Date Recorded By Document 03/04/20 14:08 [id number] 03/04/20 14:10 03/04/20 14:08 Wound Care Nurse 3 [Wound Dressing] #18 Right 2nd toe Dorsal CLUSTER -Primary Dressing Applied NonAdherent Contact Layer, Promogran -Primary Dressing Covered/Secured Dry Gauze,Dry with Gauze & Roll Gauze,Secured with Tape -Promogran 1 #17- R HEEL -Ulcer Cleansing Rinsed/ Irrigated with Saline -Other Dressing promogran then abd -Primary Dressing Covered/Secured Dry Gauze,Dry with Gauze & Roll Gauze,Secured with Tape [Compression Applied] Right -Other garry [Post Procedure Tolerated] -Treatment Response Procedure Tolerated Well Pain Scale: 0-10 Numeric [Pain] -Is Patient Pain Free? Yes - Visit Discharge [Visit Discharge Information] -Discharge Condition Stable -Ambulatory Status Wheelchair -Transportation Private Auto -Medication Reconcilliation completed No & provided to patient/care provider -Clinical Summary of Care Provided Yes Psych/Mental Status: Normal Affect, Appropriate Debridement Note Post-Debridement Measurements/Treatment WC - Nurse 2 - General Ulcer CM Notes Start: 02/19/20 08:37 Freq: Status: Active Protocol: Activity Type Activity Date Activity User E-Sign Co-Sign Detail Recorded Client Recorded Date Recorded By Document 02/19/20 12:11 MW [id number] 02/19/20 12:39 MW Document 02/26/20 12:48 MW [id number] 02/26/20 13:11 MW Document 03/04/20 13:39 MW [id number] 03/04/20 13:59 MW 02/19/20 02/26/20 03/04/20 12:11 12:48 13:39 Wound Center Nurse 2 #19 Right Dorsal Foot -Time 12:12 12:50 13:39 -Correct Patient Yes Yes Yes -Correct Side, Site, Position Yes Yes Yes -Correct Procedure Yes Yes Yes -Procedure Performed Yes Yes No -Type of Procedure Debridement Debridement -Clinical Debridement Subcutaneous Subcutaneous -Tissue Removed Subcutaneous Subcutaneous -Post Debridement (cm) - Length 0.4 0.2 -Post Debridement (cm) - Width 0.6 0.3 -Post Debridement (cm) - Depth 0.1 0.1 -Total Square (Post) (cm) 0.24 0.06 -Area of Debridement (cm) - Length 0.4 0.2 -Area of Debridement (cm) - Width 0.4 0.3 -Total Square (Area) (cm) 0.16 0.06 -Tunneling No No No -Undermining/Tunneling No No No -Circular Undermining No No No -Wound/Ulcer Outcome Not Healed Not Healed Healed- Epithelialized -Ulcer Cleansing Rinsed/ Rinsed/ Irrigated with Irrigated with Saline Saline -Foul Odor after Cleansing No No -Bioengineered Tissue No No -Bleeding Controlled with Pressure Pressure NA -Offloading No No -Treatment Response Procedure Procedure Tolerated Well Tolerated Well -Debridement - Subq, 1st 20sq cm Yes Yes #18 Right 2nd toe Dorsal CLUSTER -Time 12:13 12:51 13:39 -Correct Patient Yes Yes Yes -Correct Side, Site, Position Yes Yes Yes -Correct Procedure Yes Yes Yes -Procedure Performed Yes Yes Yes -Type of Procedure Debridement Debridement Debridement -Clinical Debridement Subcutaneous Subcutaneous Subcutaneous -Tissue Removed Subcutaneous Subcutaneous Subcutaneous -Post Debridement (cm) - Length 0.3 0.2 0.2 -Post Debridement (cm) - Width 0.3 0.2 0.2 -Post Debridement (cm) - Depth 0.1 0.1 0.1 -Total Square (Post) (cm) 0.09 0.04 0.04 -Area of Debridement (cm) - Length 0.3 0.2 0.2 -Area of Debridement (cm) - Width 0.3 0.2 0.2 -Total Square (Area) (cm) 0.09 0.04 0.04 -Tunneling No No No -Undermining/Tunneling No No No -Circular Undermining No No No -Wound/Ulcer Outcome Not Healed Not Healed Not Healed -Ulcer Cleansing Rinsed/ Rinsed/ Rinsed/ Irrigated with Irrigated with Irrigated with Saline Saline Saline -Foul Odor after Cleansing No No No -Bioengineered Tissue No No No -Bleeding Controlled with Pressure Pressure Pressure -Offloading No No No -Treatment Response Procedure Procedure Tolerated Well Tolerated Well -Debridement - Subq, 1st 20sq cm No No No #17- R HEEL -Time 12:13 12:51 13:40 -Correct Patient Yes Yes Yes -Correct Side, Site, Position Yes Yes Yes -Correct Procedure Yes Yes Yes -Procedure Performed Yes Yes Yes -Type of Procedure Debridement Debridement Debridement -Clinical Debridement Subcutaneous Subcutaneous Subcutaneous -Tissue Removed Subcutaneous Subcutaneous Subcutaneous -Post Debridement (cm) - Length 0.9 0.8 0.7 -Post Debridement (cm) - Width 0.5 0.4 0.4 -Post Debridement (cm) - Depth 0.5 0.6 0.4 -Total Square (Post) (cm) 0.45 0.32 0.28 -Area of Debridement (cm) - Length 0.9 0.8 0.7 -Area of Debridement (cm) - Width 0.5 0.4 0.4 -Total Square (Area) (cm) 0.45 0.32 0.28 -Tunneling No No No -Undermining/Tunneling No No No -Circular Undermining No No No -Wound/Ulcer Outcome Not Healed Not Healed Not Healed -Ulcer Cleansing Rinsed/ Rinsed/ Rinsed/ Irrigated with Irrigated with Irrigated with Saline Saline Saline -Foul Odor after Cleansing No No No -Bioengineered Tissue No No No -Injectable Lidocaine (%) 2 -Lidocaine (ml) 5 -Bleeding Controlled with Pressure Pressure Pressure -Offloading No No No -Treatment Response Procedure Procedure Procedure Tolerated Well Tolerated Well Tolerated Well -Debridement - Subq, 1st 20sq cm No No No Pain Scale: 0-10 Numeric Is Patient Pain Free? Yes Yes Yes WC - Nurse 3 - General Ulcer D/C NN Start: 02/19/20 08:37 Freq: Status: Active Protocol: Activity Type Activity Date Activity User E-Sign Co-Sign Detail Recorded Client Recorded Date Recorded By Document 02/19/20 13:05 RB [id number] 02/19/20 13:08 RB Document 02/26/20 13:38 RB [id number] 02/26/20 13:40 RB Document 03/04/20 14:08 RB [id number] 03/04/20 14:10 RB 02/19/20 02/26/20 03/04/20 13:05 13:38 14:08 Wound Care Nurse 3 #19 Right Dorsal Foot -Ulcer Cleansing Rinsed/ Rinsed/ Irrigated with Irrigated with Saline Saline -Primary Dressing Applied Promogran C Hydrogel ($), NonAdherent Contact Layer -Other Dressing promogran and medihoney -Primary Dressing Covered/Secured with Dry Gauze & Dry Gauze,Dry Roll Gauze, Gauze & Roll Secured with Gauze,Secured Tape with Tape -Promogran 1 #18 Right 2nd toe Dorsal CLUSTER -Primary Dressing Applied NonAdherent NonAdherent NonAdherent Contact Layer Contact Layer Contact Layer, Promogran -Other Dressing hydrogel hydrogel -Primary Dressing Covered/Secured with Dry Gauze, Dry Gauze,Dry Dry Gauze,Dry Secured with Gauze & Roll Gauze & Roll Tape Gauze,Secured Gauze,Secured with Tape with Tape -Promogran 1 #17- R HEEL -Ulcer Cleansing Rinsed/ Rinsed/ Rinsed/ Irrigated with Irrigated with Irrigated with Saline Saline Saline -Primary Dressing Applied Promogran -Other Dressing promogran and promogran then medihoney abd -Primary Dressing Covered/Secured with Dry Gauze & Dry Gauze,Dry Dry Gauze,Dry Roll Gauze, Gauze & Roll Gauze & Roll Secured with Gauze,Secured Gauze,Secured Tape with Tape with Tape -Other Covering abd nurses hat abd nurses hat to heel -Promogran 1 Right -Other garry then garry surgical shoe foot Treatment Response Procedure Procedure Procedure Tolerated Well Tolerated Well Tolerated Well Pain Scale: 0-10 Numeric Is Patient Pain Free? Yes Yes Yes Teaching: Wound Center Eliminating Foot Pressure -Person Taught Patient -Teaching Method Discussion -Response to teaching Reinforcement needed WC - Visit Discharge Discharge Condition Stable Stable Stable Ambulatory Status Wheelchair Wheelchair Wheelchair Transportation Private Auto Private Auto Private Auto Medication Reconcilliation completed & No No No provided to patient/care provider Clinical Summary of Care Provided Yes Yes Yes Laterality: Right Anesthesia Used: 4% Lidocaine Solution Depth: Down to and including healthy tissue Percentage of wound debrided: 100 Instrument Used: 3mm curette Tissue Removed: devitalized tissue Severity: Limited To Skin Breakdown Amount of bleeding with debridement: None Patient tolerated procedure well wound healed - Additional Wound Wound debrided: right second toe Laterality: Right Type of Debridement: Excisional debridement Anesthesia Used: 4% Lidocaine Solution Depth: Down to and including healthy tissue, in the subcutaneous layer Percentage of wound debrided: 100 Instrument Used: 3mm curette Tissue Removed: Yellow slough, devitalized tissue Severity: Fat Layer Exposed Amount of bleeding with debridement: Mild Bleeding Controlled with: Compression and gauze Patient tolerated procedure: Patient tolerated procedure well - Additional Wound Wound debrided: right heel Laterality: Right Type of Debridement: Excisional debridement Anesthesia Used: 4% Lidocaine Solution Depth: Down to and including healthy tissue, in the subcutaneous layer Percentage of wound debrided: 100 Instrument Used: 3mm curette Tissue Removed: Yellow slough, devitalized tissue Severity: Fat Layer Exposed Amount of bleeding with debridement: Mild Bleeding Controlled with: Compression and gauze Patient tolerated procedure: Patient tolerated procedure well Assessment/Plan Active Problems Type 2 diabetes mellitus with diabetic polyneuropathy (Chronic) Ulcer of right foot with necrosis of bone (Chronic) Diabetes with ulcer of toe (Chronic) Type 2 diabetes, controlled, with ulcer of heel (Chronic) Type II diabetes mellitus (Chronic) Valdez grade 3 Assessment: 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 Diabetes mellitus - controlled. Peripheral vascular disease - status post revascularization 08/07/18 and 03/2019 Plan: Gibson's ulcer was evaluated and debrided today with slight improvement from last week. Will continue to use promogran to his right heel and dorsal second toe. Will treat him with Linezolid for VRE on his wound culture based on sensitivities. Encouraged to call with any increase in pain or drainage, fever or chills. F/U in 1 week.
[2020-03-11 12:11] VITALS: BP 164/67; PULSE 76; RESP 18; TEMP 36.8; BMI 25.8
[2020-03-11 13:00] VITALS: BP 164/67; PULSE 76; RESP 18
--- NOTE | 2020-03-11 14:17 | PN.PCM_ITS ---
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 Current Visit: Yes Code(s): L97.514 - Non-pressure chronic ulcer of other part of right foot with necrosis of bone (3) Peripheral arterial occlusive disease Status: Chronic Current Visit: No Code(s): I77.9 - Disorder of arteries and arterioles, unspecified (4) Diabetes with ulcer of toe Status: Chronic Current Visit: Yes Qualifiers: Diabetes mellitus type: type 2 Laterality: right Non-pressure ulcer stage: with fat layer exposed Qualified Code(s): E11.621 - Type 2 diabetes mellitus with foot ulcer; L97.512 - Non-pressure chronic ulcer of other part of right foot with fat layer exposed Code(s): E11.621 - Type 2 diabetes mellitus with foot ulcer; L97.509 - Non- pressure chronic ulcer of other part of unspecified foot with unspecified severity (5) Type 2 diabetes, controlled, with ulcer of heel Status: Chronic Current Visit: Yes Code(s): E11.621 - Type 2 diabetes mellitus with foot ulcer; L97.409 - Non-pressure chronic ulcer of unspecified heel and midfoot with unspecified severity (6) Type II diabetes mellitus Status: Chronic Current Visit: Yes Qualifiers: Diabetes mellitus fci insulin use: without termite control representative use Diabetes mellitus complication status: with skin complications Diabetes mellitus complication detail: with foot ulcer Qualified Code(s): E11.621 - Type 2 diabetes mellitus with foot ulcer; L97.509 - Non-pressure chronic ulcer of other part of unspecified foot with unspecified severity Code(s): E11.9 - Type 2 diabetes mellitus without complications Comment: Valdez grade 3 Type of Wound Date of Service: 03/11/20 Chief Complaint: Nonhealing ulcer right heel, Valdez Grade 3 diabetic ulcer. History of Wound: Gibson is here for evaluation of an ulcer of his right heel. He was recently treated for this same area with [place]in application and was discharged in January 2019. 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 He has been applying Aquacel and gauze to the ulcer. He does follow with Dr. Navas regularly and had a bypass of his right SFA and popliteal arteries in September 2018. He has had procedures for his arterial disease in past to both of his lower extremities. He has tried alternative treatments with supplements and chelation therapy in the past. He also has diabetes and recent A1C was 7.2% He does wear diabetic shoes. He had been undergoing chelation treatments by Dr. German in [place]. He denies fever, chills, erythema or heavy drainage. He reports significant pain and discomfort of his right heel and his entire right leg which no one can explain. In March 2019, he was hospitalized due to occlusion of his bypass graft in his right leg and Dr. Navas was able to open it 50%. He also has blockages in his left leg. Dr. Navas is unable to revascularize either leg at this time and he may ultimately require limb amputation if his vascular disease worsens. December 11, 2019, he was sent to the emergency room with worsening of his ulcer and cellulitis. Dr. Good performed surgical debridement on December 12, 2019 and he was treated with IV antibiotics for over 4 weeks and was in the transitional care unit at [facility] for Rehab and treatment with wound vac. He was discharged on January 23, 2020 to home with continued wound vac treatment. Progress of Wound: Gibson is here to follow up for nonhealing ulcer of his right heel and dorsal right foot and second toe. He tolerated Promogran. He completed antibiotic treatment. His states that there has been less drainage. He denies any increased pain or erythema. - Physical Exam Vital Signs Temp Pulse Resp BP 98.2 F 76 18 164/67 H 03/11/20 12:11 03/11/20 13:00 03/11/20 13:00 03/11/20 13:00 General: Alert, Oriented x3, Cooperative, No apparent distress HEENT: Atraumatic, Normocephalic Oral: Moist Mucosa Abdomen: Soft, Non Tender Extremities: Cool, Edema Skin: Ulcer/ Wound Wound Measurements and Assessment - Nurse 1 - General Ulcer Measurement Start: 02/19/20 08:37 Freq: Status: Active Protocol: Activity Type Activity Date Activity User E-Sign Co-Sign Detail Recorded Client Recorded Date Recorded By Document 03/11/20 12:11 RB [id number] 03/11/20 12:15 03/11/20 12:11 Wound Center Nurse 1 [Ulcer Assessment] #18 Right 2nd toe Dorsal CLUSTER -Combined with other wound No -Current Size (cm) - Length 0.1 -Current Size (cm) - Width 0.1 -Current Size (cm) - Depth 0.1 -Total Square Cm 0.01 -Tunneling No -Undermining/Tunneling No -Circular Undermining No -Exudate Amt None Present -Wound Margin Flat & Intact -Granulation Amt Medium (34-66%) -Granulation Quality Lorenzo -Slough/Fibrin Yes -Necrosis Amt Large (67-100%) -Necrotic Tissue Type Adherent Slough -Structure Exposed N/A -Texture (Shahana-wound Skin Appearance) Assessed -Moisture (Shahana-wound Skin Appearance Assessed,Dry/ ) Scaly -Color (Shahana-wound Skin Appearance) Assessed -Temperature (Shahana-wound Skin No Abnormality Appearance) (Pt Warm) -Tenderness on Palpation (Shahana-wound No Skin Appearance) -Ulcer Cleansing Wound Cleanser -Foul Odor after Cleansing No -Anesthetic Used 4% Lidocaine Solution #17- R HEEL -Combined with other wound No -Current Size (cm) - Length 0.6 -Current Size (cm) - Width 0.4 -Current Size (cm) - Depth 0.4 -Total Square Cm 0.24 -Tunneling No -Undermining/Tunneling No -Circular Undermining No -Exudate Amt Small -Exudate Type Serosanguineous -Wound Margin Thickened -Granulation Amt Medium (34-66%) -Granulation Quality Lorenzo -Slough/Fibrin Yes -Necrosis Amt Small (1-33%) -Necrotic Tissue Type Adherent Slough -Structure Exposed N/A -Texture (Shahana-wound Skin Appearance) Assessed,Callus -Moisture (Shahana-wound Skin Appearance Assessed ) -Color (Shahana-wound Skin Appearance) Assessed -Temperature (Shahana-wound Skin No Abnormality Appearance) (Pt Warm) -Tenderness on Palpation (Shahana-wound No Skin Appearance) -Ulcer Cleansing Wound Cleanser -Foul Odor after Cleansing No -Anesthetic Used 5% Lidocaine Gel WC - Nurse 2 - General Ulcer CM Notes Start: 02/19/20 08:37 Freq: Status: Active Protocol: Activity Type Activity Date Activity User E-Sign Co-Sign Detail Recorded Client Recorded Date Recorded By Document 03/11/20 12:20 MW [id number] 03/11/20 12:50 MW 03/11/20 12:20 Wound Center Nurse 2 [Procedure/Treatment] #18 Right 2nd toe Dorsal CLUSTER -Time 12:46 -Correct Patient Yes -Correct Side, Site, Position Yes -Correct Procedure Yes -Procedure Performed No -Post Debridement (cm) - Length 0 -Post Debridement (cm) - Width 0 -Post Debridement (cm) - Depth 0 -Total Square (Post) (cm) 0 -Wound/Ulcer Outcome Healed- Epithelialized #17- R HEEL -Time 12:46 -Correct Patient Yes -Correct Side, Site, Position Yes -Correct Procedure Yes -Procedure Performed Yes -Type of Procedure Debridement -Clinical Debridement Subcutaneous -Tissue Removed Subcutaneous -Post Debridement (cm) - Length 0.7 -Post Debridement (cm) - Width 0.4 -Post Debridement (cm) - Depth 0.5 -Total Square (Post) (cm) 0.28 -Area of Debridement (cm) - Length 0.7 -Area of Debridement (cm) - Width 0.4 -Total Square (Area) (cm) 0.28 -Tunneling No -Undermining/Tunneling No -Circular Undermining No -Wound/Ulcer Outcome Not Healed -Ulcer Cleansing Rinsed/ Irrigated with Saline -Foul Odor after Cleansing No -Bioengineered Tissue No -Bleeding Controlled with Pressure -Offloading No -Treatment Response Procedure Tolerated Well -Debridement - Subq, 1st 20sq cm Yes [See Physician Procedure note for Specifics] Pain Scale: 0-10 Numeric [Pain] -Is Patient Pain Free? Yes WC - Nurse 3 - General Ulcer D/C NN Start: 02/19/20 08:37 Freq: Status: Active Protocol: Activity Type Activity Date Activity User E-Sign Co-Sign Detail Recorded Client Recorded Date Recorded By Document 03/11/20 13:00 RB [id number] 03/11/20 13:02 RB 03/11/20 13:00 Wound Care Nurse 3 [Wound Dressing] #17- R HEEL -Ulcer Cleansing Rinsed/ Irrigated with Saline -Primary Dressing Applied Promogran -Other Dressing NURSES HAT WITH ABD PAD -Primary Dressing Covered/Secured Dry Gauze,Dry with Gauze & Roll Gauze,Secured with Tape -Promogran 1 [Post Procedure Tolerated] -Treatment Response Procedure Tolerated Well Vital Signs [Pulse] -Pulse Rate (60-100) 76 -Pulse Location Monitor [Respirations] -Respiratory Rate (12-18) 18 -Respiratory rate source Observation [Blood Pressure] -Blood Pressure (90/60-120/80) 164/67 H -Blood Pressure Mean (mm Hg) 99 -Source Monitor -Position Semi-Fowlers -Blood Pressure Location Left Arm Pain Scale: 0-10 Numeric [Pain] -Is Patient Pain Free? Yes Teaching: Wound Center [Wound Center Education] (Items with an * have Printed Materials Available- Please identify what is given to patient under the Teaching materials given to patient and caregiver Section. Offload: Mattress, Cushion, Reposition -Person Taught Patient -Teaching Method Discussion -Response to teaching Reinforcement needed WC - Visit Discharge [Visit Discharge Information] -Discharge Condition Stable -Ambulatory Status Wheelchair -Transportation Private Auto -Medication Reconcilliation completed No & provided to patient/care provider -Clinical Summary of Care Provided Yes Psych/Mental Status: Normal Affect, Appropriate Debridement Note Post-Debridement Measurements/Treatment WC - Nurse 2 - General Ulcer CM Notes Start: 02/19/20 08:37 Freq: Status: Active Protocol: Activity Type Activity Date Activity User E-Sign Co-Sign Detail Recorded Client Recorded Date Recorded By Document 02/19/20 12:11 MW [id number] 02/19/20 12:39 MW Document 02/26/20 12:48 MW [id number] 02/26/20 13:11 MW Document 03/04/20 13:39 MW [id number] 03/04/20 13:59 MW Document 03/11/20 12:20 MW [id number] 03/11/20 12:50 MW 02/19/20 02/26/20 03/04/20 12:11 12:48 13:39 Wound Center Nurse 2 #19 Right Dorsal Foot -Time 12:12 12:50 13:39 -Correct Patient Yes Yes Yes -Correct Side, Site, Position Yes Yes Yes -Correct Procedure Yes Yes Yes -Procedure Performed Yes Yes No -Type of Procedure Debridement Debridement -Clinical Debridement Subcutaneous Subcutaneous -Tissue Removed Subcutaneous Subcutaneous -Post Debridement (cm) - Length 0.4 0.2 -Post Debridement (cm) - Width 0.6 0.3 -Post Debridement (cm) - Depth 0.1 0.1 -Total Square (Post) (cm) 0.24 0.06 -Area of Debridement (cm) - Length 0.4 0.2 -Area of Debridement (cm) - Width 0.4 0.3 -Total Square (Area) (cm) 0.16 0.06 -Tunneling No No No -Undermining/Tunneling No No No -Circular Undermining No No No -Wound/Ulcer Outcome Not Healed Not Healed Healed- Epithelialized -Ulcer Cleansing Rinsed/ Rinsed/ Irrigated with Irrigated with Saline Saline -Foul Odor after Cleansing No No -Bioengineered Tissue No No -Bleeding Controlled with Pressure Pressure NA -Offloading No No -Treatment Response Procedure Procedure Tolerated Well Tolerated Well -Debridement - Subq, 1st 20sq cm Yes Yes #18 Right 2nd toe Dorsal CLUSTER -Time 12:13 12:51 13:39 -Correct Patient Yes Yes Yes -Correct Side, Site, Position Yes Yes Yes -Correct Procedure Yes Yes Yes -Procedure Performed Yes Yes Yes -Type of Procedure Debridement Debridement Debridement -Clinical Debridement Subcutaneous Subcutaneous Subcutaneous -Tissue Removed Subcutaneous Subcutaneous Subcutaneous -Post Debridement (cm) - Length 0.3 0.2 0.2 -Post Debridement (cm) - Width 0.3 0.2 0.2 -Post Debridement (cm) - Depth 0.1 0.1 0.1 -Total Square (Post) (cm) 0.09 0.04 0.04 -Area of Debridement (cm) - Length 0.3 0.2 0.2 -Area of Debridement (cm) - Width 0.3 0.2 0.2 -Total Square (Area) (cm) 0.09 0.04 0.04 -Tunneling No No No -Undermining/Tunneling No No No -Circular Undermining No No No -Wound/Ulcer Outcome Not Healed Not Healed Not Healed -Ulcer Cleansing Rinsed/ Rinsed/ Rinsed/ Irrigated with Irrigated with Irrigated with Saline Saline Saline -Foul Odor after Cleansing No No No -Bioengineered Tissue No No No -Bleeding Controlled with Pressure Pressure Pressure -Offloading No No No -Treatment Response Procedure Procedure Tolerated Well Tolerated Well -Debridement - Subq, 1st 20sq cm No No No #17- R HEEL -Time 12:13 12:51 13:40 -Correct Patient Yes Yes Yes -Correct Side, Site, Position Yes Yes Yes -Correct Procedure Yes Yes Yes -Procedure Performed Yes Yes Yes -Type of Procedure Debridement Debridement Debridement -Clinical Debridement Subcutaneous Subcutaneous Subcutaneous -Tissue Removed Subcutaneous Subcutaneous Subcutaneous -Post Debridement (cm) - Length 0.9 0.8 0.7 -Post Debridement (cm) - Width 0.5 0.4 0.4 -Post Debridement (cm) - Depth 0.5 0.6 0.4 -Total Square (Post) (cm) 0.45 0.32 0.28 -Area of Debridement (cm) - Length 0.9 0.8 0.7 -Area of Debridement (cm) - Width 0.5 0.4 0.4 -Total Square (Area) (cm) 0.45 0.32 0.28 -Tunneling No No No -Undermining/Tunneling No No No -Circular Undermining No No No -Wound/Ulcer Outcome Not Healed Not Healed Not Healed -Ulcer Cleansing Rinsed/ Rinsed/ Rinsed/ Irrigated with Irrigated with Irrigated with Saline Saline Saline -Foul Odor after Cleansing No No No -Bioengineered Tissue No No No -Injectable Lidocaine (%) 2 -Lidocaine (ml) 5 -Bleeding Controlled with Pressure Pressure Pressure -Offloading No No No -Treatment Response Procedure Procedure Procedure Tolerated Well Tolerated Well Tolerated Well -Debridement - Subq, 1st 20sq cm No No No Pain Scale: 0-10 Numeric Is Patient Pain Free? Yes Yes Yes 03/11/20 12:20 Wound Center Nurse 2 #19 Right Dorsal Foot -Time -Correct Patient -Correct Side, Site, Position -Correct Procedure -Procedure Performed -Type of Procedure -Clinical Debridement -Tissue Removed -Post Debridement (cm) - Length -Post Debridement (cm) - Width -Post Debridement (cm) - Depth -Total Square (Post) (cm) -Area of Debridement (cm) - Length -Area of Debridement (cm) - Width -Total Square (Area) (cm) -Tunneling -Undermining/Tunneling -Circular Undermining -Wound/Ulcer Outcome -Ulcer Cleansing -Foul Odor after Cleansing -Bioengineered Tissue -Bleeding Controlled with -Offloading -Treatment Response -Debridement - Subq, 1st 20sq cm #18 Right 2nd toe Dorsal CLUSTER -Time 12:46 -Correct Patient Yes -Correct Side, Site, Position Yes -Correct Procedure Yes -Procedure Performed No -Type of Procedure -Clinical Debridement -Tissue Removed -Post Debridement (cm) - Length 0 -Post Debridement (cm) - Width 0 -Post Debridement (cm) - Depth 0 -Total Square (Post) (cm) 0 -Area of Debridement (cm) - Length -Area of Debridement (cm) - Width -Total Square (Area) (cm) -Tunneling -Undermining/Tunneling -Circular Undermining -Wound/Ulcer Outcome Healed- Epithelialized -Ulcer Cleansing -Foul Odor after Cleansing -Bioengineered Tissue -Bleeding Controlled with -Offloading -Treatment Response -Debridement - Subq, 1st 20sq cm #17- R HEEL -Time 12:46 -Correct Patient Yes -Correct Side, Site, Position Yes -Correct Procedure Yes -Procedure Performed Yes -Type of Procedure Debridement -Clinical Debridement Subcutaneous -Tissue Removed Subcutaneous -Post Debridement (cm) - Length 0.7 -Post Debridement (cm) - Width 0.4 -Post Debridement (cm) - Depth 0.5 -Total Square (Post) (cm) 0.28 -Area of Debridement (cm) - Length 0.7 -Area of Debridement (cm) - Width 0.4 -Total Square (Area) (cm) 0.28 -Tunneling No -Undermining/Tunneling No -Circular Undermining No -Wound/Ulcer Outcome Not Healed -Ulcer Cleansing Rinsed/ Irrigated with Saline -Foul Odor after Cleansing No -Bioengineered Tissue No -Injectable Lidocaine (%) -Lidocaine (ml) -Bleeding Controlled with Pressure -Offloading No -Treatment Response Procedure Tolerated Well -Debridement - Subq, 1st 20sq cm Yes Pain Scale: 0-10 Numeric Is Patient Pain Free? Yes WC - Nurse 3 - General Ulcer D/C NN Start: 02/19/20 08:37 Freq: Status: Active Protocol: Activity Type Activity Date Activity User E-Sign Co-Sign Detail Recorded Client Recorded Date Recorded By Document 02/19/20 13:05 RB [id number] 02/19/20 13:08 RB Document 02/26/20 13:38 RB [id number] 02/26/20 13:40 RB Document 03/04/20 14:08 RB [id number] 03/04/20 14:10 RB Document 03/11/20 13:00 RB [id number] 03/11/20 13:02 RB 02/19/20 02/26/20 03/04/20 13:05 13:38 14:08 Wound Care Nurse 3 #19 Right Dorsal Foot -Ulcer Cleansing Rinsed/ Rinsed/ Irrigated with Irrigated with Saline Saline -Primary Dressing Applied Promogran C Hydrogel ($), NonAdherent Contact Layer -Other Dressing promogran and medihoney -Primary Dressing Covered/Secured with Dry Gauze & Dry Gauze,Dry Roll Gauze, Gauze & Roll Secured with Gauze,Secured Tape with Tape -Promogran 1 #18 Right 2nd toe Dorsal CLUSTER -Primary Dressing Applied NonAdherent NonAdherent NonAdherent Contact Layer Contact Layer Contact Layer, Promogran -Other Dressing hydrogel hydrogel -Primary Dressing Covered/Secured with Dry Gauze, Dry Gauze,Dry Dry Gauze,Dry Secured with Gauze & Roll Gauze & Roll Tape Gauze,Secured Gauze,Secured with Tape with Tape -Promogran 1 #17- R HEEL -Ulcer Cleansing Rinsed/ Rinsed/ Rinsed/ Irrigated with Irrigated with Irrigated with Saline Saline Saline -Primary Dressing Applied Promogran -Other Dressing promogran and promogran then medihoney abd -Primary Dressing Covered/Secured with Dry Gauze & Dry Gauze,Dry Dry Gauze,Dry Roll Gauze, Gauze & Roll Gauze & Roll Secured with Gauze,Secured Gauze,Secured Tape with Tape with Tape -Other Covering abd nurses hat abd nurses hat to heel -Promogran 1 Right -Other garry then garry surgical shoe foot Treatment Response Procedure Procedure Procedure Tolerated Well Tolerated Well Tolerated Well Pain Scale: 0-10 Numeric Is Patient Pain Free? Yes Yes Yes Vital Signs Pulse Rate (60-100) Pulse Location Respiratory Rate (12-18) Respiratory rate source Blood Pressure (90/60-120/80) Blood Pressure Mean (mm Hg) Source Position Blood Pressure Location Teaching: Wound Center Offload: Mattress, Cushion, Reposition -Person Taught -Teaching Method -Response to teaching Eliminating Foot Pressure -Person Taught Patient -Teaching Method Discussion -Response to teaching Reinforcement needed WC - Visit Discharge Discharge Condition Stable Stable Stable Ambulatory Status Wheelchair Wheelchair Wheelchair Transportation Private Auto Private Auto Private Auto Medication Reconcilliation completed & No No No provided to patient/care provider Clinical Summary of Care Provided Yes Yes Yes 03/11/20 13:00 Wound Care Nurse 3 #19 Right Dorsal Foot -Ulcer Cleansing -Primary Dressing Applied -Other Dressing -Primary Dressing Covered/Secured with -Promogran #18 Right 2nd toe Dorsal CLUSTER -Primary Dressing Applied -Other Dressing -Primary Dressing Covered/Secured with -Promogran #17- R HEEL -Ulcer Cleansing Rinsed/ Irrigated with Saline -Primary Dressing Applied Promogran -Other Dressing NURSES HAT WITH ABD PAD -Primary Dressing Covered/Secured with Dry Gauze,Dry Gauze & Roll Gauze,Secured with Tape -Other Covering -Promogran 1 Right -Other Treatment Response Procedure Tolerated Well Pain Scale: 0-10 Numeric Is Patient Pain Free? Yes Vital Signs Pulse Rate (60-100) 76 Pulse Location Monitor Respiratory Rate (12-18) 18 Respiratory rate source Observation Blood Pressure (90/60-120/80) 164/67 H Blood Pressure Mean (mm Hg) 99 Source Monitor Position Semi-Fowlers Blood Pressure Location Left Arm Teaching: Wound Center Offload: Mattress, Cushion, Reposition -Person Taught Patient -Teaching Method Discussion -Response to teaching Reinforcement needed Eliminating Foot Pressure -Person Taught -Teaching Method -Response to teaching WC - Visit Discharge Discharge Condition Stable Ambulatory Status Wheelchair Transportation Private Auto Medication Reconcilliation completed & No provided to patient/care provider Clinical Summary of Care Provided Yes Wound debrided: right dorsal second toe Laterality: Right Type of Debridement: Selective debridement Instrument Used: 3mm curette Tissue Removed: Yellow slough, devitalized tissue Severity: Fat Layer Exposed Amount of bleeding with debridement: None Patient tolerated procedure well - Additional Wound Wound debrided: right heel Laterality: Right Wound Grade/Stage: Valdez grade 3 Type of Debridement: Excisional debridement Anesthesia Used: 4% Lidocaine Solution Depth: Down to and including healthy tissue, in the subcutaneous layer, to muscle Percentage of wound debrided: 100 Instrument Used: 3mm curette Tissue Removed: Yellow slough, devitalized tissue Severity: Fat Layer Exposed Amount of bleeding with debridement: Mild Bleeding Controlled with: Compression and gauze Patient tolerated procedure: Patient tolerated procedure well Assessment/Plan Active Problems Type 2 diabetes mellitus with diabetic polyneuropathy (Chronic) Ulcer of right foot with necrosis of bone (Chronic) Diabetes with ulcer of toe (Chronic) Type 2 diabetes, controlled, with ulcer of heel (Chronic) Type II diabetes mellitus (Chronic) Valdez grade 3 Assessment: 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 Diabetes mellitus - controlled. Peripheral vascular disease - status post revascularization 08/07/18 and 03/2019 Plan: Gibson's ulcer was evaluated and debrided today with slight improvement from last week. Will continue to use promogran to his right heel and dorsal second toe is healed. Encouraged to call with any increase in pain or drainage, fever or chills. F/U in 1 week.
--- NOTE | 2020-04-20 07:07 | WC ---
03/11/20 2nd toe Healed
== END 2020-03-16 23:59 ==
LOC: WC 11:45
PROVIDERS: Family Provider Family Medicine; PCP Family Medicine; Referring Provider Family Medicine; Visit Provider Family Medicine
DX: E11.621 Type 2 diabetes mellitus with foot ulcer (principal); E11.51 Type 2 diabetes mellitus with diabetic peripheral angiopathy without gangrene; E78.5 Hyperlipidemia, unspecified; I25.10 Atherosclerotic heart disease of native coronary artery without angina pectoris; Z95.1 Presence of aortocoronary bypass graft; I10 Essential (primary) hypertension; L97.412 Non-pressure chronic ulcer of right heel and midfoot with fat layer exposed
CPT/HCPCS: 11042; 87070; 87075; 87205

== ENCOUNTER 2020-04-15 12:30 | Outpatient (RCR) | payer MEDICARE, OTHER, SELFPAY ==
[2020-03-17 00:20] VITALS: BP 164/67; PULSE 76; RESP 18; TEMP 36.8
[2020-03-18 13:12] VITALS: BP 146/68; PULSE 68; RESP 16; TEMP 36.4; BMI 25.8
[2020-03-18 14:02] VITALS: BP 144/70; PULSE 88; RESP 18
--- NOTE | 2020-03-18 15:35 | PN.PCM_ITS ---
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 Current Visit: Yes Code(s): L97.514 - Non-pressure chronic ulcer of other part of right foot with necrosis of bone (3) Open wound of right heel Status: Chronic Current Visit: Yes Qualifiers: Encounter type: subsequent encounter Code(s): S91.301A - Unspecified open wound, right foot, initial encounter (4) Peripheral arterial occlusive disease Status: Chronic Current Visit: Yes Code(s): I77.9 - Disorder of arteries and arterioles, unspecified (5) Diabetes mellitus Status: Chronic Current Visit: Yes Qualifiers: Diabetes mellitus type: type 2 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: without termite technician use Diabetes mellitus complication status: with skin complications Diabetes mellitus complication detail: with foot ulcer Qualified Code(s): E11.621 - Type 2 diabetes mellitus with foot ulcer; L97.509 - Non-pressure chronic ulcer of other part of unspecified foot with unspecified severity Code(s): E11.9 - Type 2 diabetes mellitus without complications (6) Diabetic ulcer of toe of right foot Status: Chronic Current Visit: Yes Qualifiers: Diabetes mellitus type: type 2 Non-pressure ulcer stage: with necrosis of muscle Qualified Code(s): E11.621 - Type 2 diabetes mellitus with foot ulcer; L97.513 - Non-pressure chronic ulcer of other part of right foot with necrosis of muscle Code(s): E11.621 - Type 2 diabetes mellitus with foot ulcer; L97.519 - Non- pressure chronic ulcer of other part of right foot with unspecified severity (7) Type 2 diabetes, uncontrolled, with ulcer of heel Status: Chronic Current Visit: Yes Code(s): E11.621 - Type 2 diabetes mellitus with foot ulcer; E11.65 - Type 2 diabetes mellitus with hyperglycemia; L97.409 - Non-pressure chronic ulcer of unspecified heel and midfoot with unspecified severity Comment: right plantar heel (8) PAD (peripheral artery disease) Status: Chronic Current Visit: Yes Code(s): I73.9 - Peripheral vascular disease, unspecified (9) Type 2 diabetes, controlled, with ulcer of heel Status: Chronic Current Visit: Yes Code(s): E11.621 - Type 2 diabetes mellitus with foot ulcer; L97.409 - Non-pressure chronic ulcer of unspecified heel and midfoot with unspecified severity (10) Type II diabetes mellitus Status: Chronic Current Visit: Yes Qualifiers: 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 History of Wound: Gibson is here for evaluation of an ulcer of his right heel. He was recently treated for this same area with [place]in application and was discharged in January 2019. 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 He has been applying Aquacel and gauze to the ulcer. He does follow with Dr. Navas regularly and had a bypass of his right SFA and popliteal arteries in September 2018. He has had procedures for his arterial disease in past to both of his lower extremities. He has tried alternative treatments with supplements and chelation therapy in the past. He also has diabetes and recent A1C was 7.2% He does wear diabetic shoes. He had been undergoing chelation treatments by Dr. German in [place]. He denies fever, chills, erythema or heavy drainage. He reports significant pain and discomfort of his right heel and his entire right leg which no one can explain. In March 2019, he was hospitalized due to occlusion of his bypass graft in his right leg and Dr. Navas was able to open it 50%. He also has blockages in his left leg. Dr. Navas is unable to revascularize either leg at this time and he may ultimately require limb amputation if his vascular disease worsens. December 11, 2019, he was sent to the emergency room with worsening of his ulcer and cellulitis. Dr. Good performed surgical debridement on December 12, 2019 and he was treated with IV antibiotics for over 4 weeks and was in the transitional care unit at [facility] for Rehab and treatment with wound vac. He was discharged on January 23, 2020 to home with continued wound vac treatment. Progress of Wound: Gibson is here to follow up for nonhealing ulcer of his right heel and dorsal right foot and second toe. He tolerated Promogran. He completed antibiotic treatment. His states that there has been less drainage. He denies any increased pain or erythema. He does admit to erythema and itching of his lower abdomen. - Physical Exam Vital Signs Temp Pulse Resp BP 97.6 F L 88 18 144/70 H 03/18/20 13:12 03/18/20 14:02 03/18/20 14:02 03/18/20 14:02 General: Alert, Oriented x3, Cooperative, No apparent distress HEENT: Atraumatic, Normocephalic Oral: Moist Mucosa Abdomen: Soft, Non Tender Extremities: Edema Skin: Ulcer/ Wound, Rash Present Wound Measurements and Assessment WC - Nurse 1 - General Ulcer Measurement Start: 03/18/20 13:12 Freq: Status: Active Protocol: Activity Type Activity Date Activity User E-Sign Co-Sign Detail Recorded Client Recorded Date Recorded By Document 03/18/20 13:12 [facility] [id number] 03/18/20 13:21 [facility] 03/18/20 13:12 Wound Center Nurse 1 [Ulcer Assessment] #17- R HEEL -Combined with other wound No -Current Size (cm) - Length 1.2 -Current Size (cm) - Width 0.5 -Current Size (cm) - Depth 0.3 -Total Square Cm 0.60 -Tunneling No -Undermining/Tunneling No -Circular Undermining No -Exudate Amt Medium -Exudate Type Serosanguineous -Wound Margin Flat & Intact -Granulation Amt Medium (34-66%) -Granulation Quality [place] -Slough/Fibrin Yes -Necrosis Amt Medium (34-66%) -Necrotic Tissue Type Adherent Slough -Structure Exposed N/A -Texture (Shahana-wound Skin Appearance) Assessed,Callus -Moisture (Shahana-wound Skin Appearance Assessed, ) Maceration -Color (Shahana-wound Skin Appearance) Assessed -Temperature (Shahana-wound Skin No Abnormality Appearance) (Pt Warm) -Tenderness on Palpation (Shahana-wound No Skin Appearance) -Ulcer Cleansing Wound Cleanser -Foul Odor after Cleansing No -Anesthetic Used 5% Lidocaine Gel [Edema Assessment] -Lower Limb Edema Present Yes -Right Calf (cm) 27.8 -Right Ankle (cm) 22.5 WC - Nurse 2 - General Ulcer CM Notes Start: 03/18/20 13:12 Freq: Status: Active Protocol: Activity Type Activity Date Activity User E-Sign Co-Sign Detail Recorded Client Recorded Date Recorded By Document 03/18/20 13:40 MW [id number] 03/18/20 13:50 MW 03/18/20 13:40 Wound Center Nurse 2 [Procedure/Treatment] #17- R HEEL -Time 13:43 -Correct Patient Yes -Correct Side, Site, Position Yes -Correct Procedure Yes -Procedure Performed Yes -Type of Procedure Debridement -Clinical Debridement Subcutaneous -Tissue Removed Subcutaneous -Post Debridement (cm) - Length 0.8 -Post Debridement (cm) - Width 0.3 -Post Debridement (cm) - Depth 0.5 -Total Square (Post) (cm) 0.24 -Area of Debridement (cm) - Length 0.8 -Area of Debridement (cm) - Width 0.3 -Total Square (Area) (cm) 0.24 -Tunneling No -Undermining/Tunneling No -Circular Undermining No -Wound/Ulcer Outcome Not Healed -Ulcer Cleansing Rinsed/ Irrigated with Saline -Foul Odor after Cleansing No -Bioengineered Tissue No -Bleeding Controlled with Pressure -Offloading No -Treatment Response Procedure Tolerated Well -Debridement - Subq, 1st 20sq cm Yes [See Physician Procedure note for Specifics] Pain Scale: 0-10 Numeric [Pain] -Is Patient Pain Free? Yes - Nurse 3 - General Ulcer D/C NN Start: 03/18/20 13:12 Freq: Status: Active Protocol: Activity Type Activity Date Activity User E-Sign Co-Sign Detail Recorded Client Recorded Date Recorded By Document 03/18/20 14:02 RB [id number] 03/18/20 14:04 RB 03/18/20 14:02 Wound Care Nurse 3 [Wound Dressing] #17- R HEEL -Ulcer Cleansing Rinsed/ Irrigated with Saline -Primary Dressing Applied Promogran -Other Dressing garry -Primary Dressing Covered/Secured Dry Gauze,Dry with Gauze & Roll Gauze,Secured with Tape -Promogran 1 [Post Procedure Tolerated] -Treatment Response Procedure Tolerated Well Vital Signs [Pulse] -Pulse Rate (60-100) 88 -Pulse Location Monitor [Respirations] -Respiratory Rate (12-18) 18 -Respiratory rate source Observation [Blood Pressure] -Blood Pressure (90/60-120/80) 144/70 H -Blood Pressure Mean (mm Hg) 94 -Source Monitor -Position Semi-Fowlers -Blood Pressure Location Left Arm Pain Scale: 0-10 Numeric [Pain] -Is Patient Pain Free? Yes Teaching: Wound Center [Wound Center Education] (Items with an * have Printed Materials Available- Please identify what is given to patient under the Teaching materials given to patient and caregiver Section. Dressing Your Wound -Person Taught Patient -Teaching Method Discussion, Demonstration -Response to teaching Verbalize understanding WC - Visit Discharge [Visit Discharge Information] -Discharge Condition Stable -Ambulatory Status Wheelchair -Transportation Private Auto -Medication Reconcilliation completed No & provided to patient/care provider -Clinical Summary of Care Provided Yes Psych/Mental Status: Normal Affect, Appropriate Debridement Note Post-Debridement Measurements/Treatment - Nurse 2 - General Ulcer CM Notes Start: 03/18/20 13:12 Freq: Status: Active Protocol: Activity Type Activity Date Activity User E-Sign Co-Sign Detail Recorded Client Recorded Date Recorded By Document 03/18/20 13:40 MW [id number] 03/18/20 13:50 MW 03/18/20 13:40 Wound Center Nurse 2 #17- R HEEL -Time 13:43 -Correct Patient Yes -Correct Side, Site, Position Yes -Correct Procedure Yes -Procedure Performed Yes -Type of Procedure Debridement -Clinical Debridement Subcutaneous -Tissue Removed Subcutaneous -Post Debridement (cm) - Length 0.8 -Post Debridement (cm) - Width 0.3 -Post Debridement (cm) - Depth 0.5 -Total Square (Post) (cm) 0.24 -Area of Debridement (cm) - Length 0.8 -Area of Debridement (cm) - Width 0.3 -Total Square (Area) (cm) 0.24 -Tunneling No -Undermining/Tunneling No -Circular Undermining No -Wound/Ulcer Outcome Not Healed -Ulcer Cleansing Rinsed/ Irrigated with Saline -Foul Odor after Cleansing No -Bioengineered Tissue No -Bleeding Controlled with Pressure -Offloading No -Treatment Response Procedure Tolerated Well -Debridement - Subq, 1st 20sq cm Yes Pain Scale: 0-10 Numeric Is Patient Pain Free? Yes - Nurse 3 - General Ulcer D/C NN Start: 03/18/20 13:12 Freq: Status: Active Protocol: Activity Type Activity Date Activity User E-Sign Co-Sign Detail Recorded Client Recorded Date Recorded By Document 03/18/20 14:02 RB [id number] 03/18/20 14:04 RB 03/18/20 14:02 Wound Care Nurse 3 #17- R HEEL -Ulcer Cleansing Rinsed/ Irrigated with Saline -Primary Dressing Applied Promogran -Other Dressing garry -Primary Dressing Covered/Secured with Dry Gauze,Dry Gauze & Roll Gauze,Secured with Tape -Promogran 1 Treatment Response Procedure Tolerated Well Vital Signs Pulse Rate (60-100) 88 Pulse Location Monitor Respiratory Rate (12-18) 18 Respiratory rate source Observation Blood Pressure (90/60-120/80) 144/70 H Blood Pressure Mean (mm Hg) 94 Source Monitor Position Semi-Fowlers Blood Pressure Location Left Arm Pain Scale: 0-10 Numeric Is Patient Pain Free? Yes Teaching: Wound Center Dressing Your Wound -Person Taught Patient -Teaching Method Discussion, Demonstration -Response to teaching Verbalize understanding WC - Visit Discharge Discharge Condition Stable Ambulatory Status Wheelchair Transportation Private Auto Medication Reconcilliation completed & No provided to patient/care provider Clinical Summary of Care Provided Yes Wound debrided: right heel Laterality: Right Wound Grade/Stage: Grade 3 Type of Debridement: Excisional debridement Anesthesia Used: 4% Lidocaine Solution, 5% Lidocaine Gel Depth: Down to and including healthy tissue, in the subcutaneous layer Percentage of wound debrided: 100 Instrument Used: 3mm curette Tissue Removed: Yellow slough, devitalized tissue Severity: Fat Layer Exposed Amount of bleeding with debridement: Mild Bleeding Controlled with: Compression and gauze Patient tolerated procedure well Assessment/Plan Active Problems Type 2 diabetes mellitus with diabetic polyneuropathy (Chronic) Ulcer of right foot with necrosis of bone (Chronic) Open wound of right heel (Chronic) Peripheral arterial occlusive disease (Chronic) Diabetes mellitus (Chronic) Diabetic ulcer of toe of right foot (Chronic) Type 2 diabetes, uncontrolled, with ulcer of heel (Chronic) right plantar heel PAD (peripheral artery disease) (Chronic) Type 2 diabetes, controlled, with ulcer of heel (Chronic) Type II diabetes mellitus (Chronic) Valdez grade 3 Assessment: 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 Diabetes mellitus - controlled. Peripheral vascular disease - status post revascularization 08/07/18 and 03/2019 Plan: Demetriuss ulcer was evaluated and debrided today with slight improvement from last week. Will continue to use promogran to his right heel and dorsal second toe. Wound culture was negative for infection of bacteria but did show yeast. He also has candidal iunfection lower abdomen. Will treat with fluconazole orally. Encouraged to call with any increase in pain or drainage, fever or chills. F/U in 1 week.
[2020-04-01 12:54] VITALS: BP 147/66; PULSE 72; RESP 18; TEMP 36.6; BMI 25.8
[2020-04-01 13:51] VITALS: BP 145/68
--- NOTE | 2020-04-01 15:25 | PN.PCM_ITS ---
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 Code(s): L97.514 - Non-pressure chronic ulcer of other part of right foot with necrosis of bone (3) Open wound of right heel Status: Chronic Qualifiers: Encounter type: subsequent encounter Code(s): S91.301A - Unspecified open wound, right foot, initial encounter (4) Peripheral arterial occlusive disease Status: Chronic Code(s): I77.9 - Disorder of arteries and arterioles, unspecified (5) Diabetes mellitus Status: Chronic Qualifiers: Diabetes mellitus type: type 2 Diabetes mellitus dedicated intermodal truck driver insulin use: without halfway use Diabetes mellitus complication status: with skin complications Diabetes mellitus complication detail: with foot ulcer Qualified Code(s): E11.621 - Type 2 diabetes mellitus with foot ulcer; L97.509 - Non-pressure chronic ulcer of other part of unspecified foot with unspecified severity Code(s): E11.9 - Type 2 diabetes mellitus without complications (6) Diabetic ulcer of toe of right foot Status: Chronic Qualifiers: Diabetes mellitus type: type 2 Non-pressure ulcer stage: with necrosis of muscle Qualified Code(s): E11.621 - Type 2 diabetes mellitus with foot ulcer; L97.513 - Non-pressure chronic ulcer of other part of right foot with necrosis of muscle Code(s): E11.621 - Type 2 diabetes mellitus with foot ulcer; L97.519 - Non- pressure chronic ulcer of other part of right foot with unspecified severity (7) Type 2 diabetes, uncontrolled, with ulcer of heel Status: Chronic Code(s): E11.621 - Type 2 diabetes mellitus with foot ulcer; E11.65 - Type 2 diabetes mellitus with hyperglycemia; L97.409 - Non-pressure chronic ulcer of unspecified heel and midfoot with unspecified severity Comment: right plantar heel (8) PAD (peripheral artery disease) Status: Chronic Code(s): I73.9 - Peripheral vascular disease, unspecified (9) Type 2 diabetes, controlled, with ulcer of heel Status: Chronic Code(s): E11.621 - Type 2 diabetes mellitus with foot ulcer; L97.409 - Non-pressure chronic ulcer of unspecified heel and midfoot with unspec ified severity (10) Type II diabetes mellitus Status: Chronic Qualifiers: Diabetes mellitus dedicated intermodal truck driver insulin use: without dedicated intermodal truck driver use Diabetes mellitus complication detail: with foot ulcer Code(s): E11.9 - Type 2 diabetes mellitus without complications Comment: Valdez grade 3 Type of Wound Date of Service: 04/01/20 Chief Complaint: Nonhealing ulcer right heel, Valdez Grade 3 diabetic ulcer. History of Wound: Gibson is here for evaluation of an ulcer of his right heel. He was recently treated for this same area with [place] application and was discharged in January 2019. He had noticed increased pain in his heel in March and his noted that the area had opened after his rn acute had debrided some callus from the area. He has been applying Aquacel and gauze to the ulcer. He does follow with Dr. Navas regularly and had a bypass of his right SFA and popliteal arteries in September 2018. He has had procedures for his arterial disease in past to both of his lower extremities. He has tried alternative treatments with supplements and chelation therapy in the past. He also has diabetes and recent A1C was 7.2% He does wear diabetic shoes. He had been undergoing chelation treatments by Dr. German in [place]. He denies fever, chills, erythema or heavy drainage. He reports significant pain and discomfort of his right heel and his entire right leg which no one can explain. In March 2019, he was hospitalized due to occlusion of his bypass graft in his right leg and Dr. Navas was able to open it 50%. He also has blockages in his left leg. Dr. Navas is unable to revascularize either leg at this time and he may ultimately require limb amputation if his vascular disease worsens. December 11, 2019, he was sent to the emergency room with worsening of his ulcer and cellulitis. Dr. Good performed surgical debridement on December 12, 2019 and he was treated with IV antibiotics for over 4 weeks and was in the transitional care unit at [facility] for Rehab and treatment with wound vac. He was discharged on January 23, 2020 to home with continued wound vac treatment. Progress of Wound: Gibson is here to follow up for nonhealing ulcer of his right heel and dorsal right foot and second toe. He tolerated Promogran. He completed antibiotic treatment. His states that there has been less drainage. He denies any increased pain or erythema. - Physical Exam Vital Signs Temp Pulse Resp BP 98 F 72 18 145/68 H 04/01/20 12:54 04/01/20 12:54 04/01/20 12:54 04/01/20 13:51 General: Alert, Oriented x3, Cooperative, No apparent distress HEENT: Atraumatic, Normocephalic Oral: Moist Mucosa Abdomen: Soft, Non Tender Extremities: Edema Skin: Ulcer/ Wound Wound Measurements and Assessment WC - Nurse 1 - General Ulcer Measurement Start: 03/18/20 13:12 Freq: Status: Active Protocol: Activity Type Activity Date Activity User E-Sign Co-Sign Detail Recorded Client Recorded Date Recorded By Document 04/01/20 12:54 RB [email or web address] 04/01/20 12:56 RB 04/01/20 12:54 Wound Center Nurse 1 [Ulcer Assessment] #17- R HEEL -Combined with other wound No -Current Size (cm) - Length 0.5 -Current Size (cm) - Width 0.2 -Current Size (cm) - Depth 0.2 -Total Square Cm 0.10 -Tunneling No -Undermining/Tunneling No -Circular Undermining No -Exudate Amt Small -Exudate Type Serosanguineous -Wound Margin Thickened & Rolled Under -Granulation Amt Medium (34-66%) -Granulation Quality [place] -Slough/Fibrin Yes -Necrosis Amt Small (1-33%) -Necrotic Tissue Type Adherent Slough -Structure Exposed N/A -Texture (Shahana-wound Skin Appearance) Assessed,Callus -Moisture (Shahana-wound Skin Appearance Assessed, ) Maceration -Color (Shahana-wound Skin Appearance) Assessed -Temperature (Shahana-wound Skin No Abnormality Appearance) (Pt Warm) -Tenderness on Palpation (Shahana-wound No Skin Appearance) -Ulcer Cleansing Wound Cleanser -Foul Odor after Cleansing No -Anesthetic Used 4% Lidocaine Solution WC - Nurse 2 - General Ulcer CM Notes Start: 03/18/20 13:12 Freq: Status: Active Protocol: Activity Type Activity Date Activity User E-Sign Co-Sign Detail Recorded Client Recorded Date Recorded By Document 04/01/20 13:06 MW [id number] 04/01/20 13:35 MW 04/01/20 13:06 Wound Center Nurse 2 [Procedure/Treatment] -Time 13:06 -Correct Patient Yes -Correct Side, Site, Position Yes -Correct Procedure Yes -Procedure Performed Yes -Type of Procedure Debridement -Clinical Debridement Subcutaneous -Tissue Removed Subcutaneous -Post Debridement (cm) - Length 0.8 -Post Debridement (cm) - Width 0.7 -Post Debridement (cm) - Depth 0.5 -Total Square (Post) (cm) 0.56 -Area of Debridement (cm) - Length 0.8 -Area of Debridement (cm) - Width 0.7 -Total Square (Area) (cm) 0.56 -Tunneling No -Undermining/Tunneling No -Circular Undermining No -Wound/Ulcer Outcome Not Healed -Ulcer Cleansing Rinsed/ Irrigated with Saline -Foul Odor after Cleansing No -Bioengineered Tissue No -Bleeding Controlled with Pressure -Offloading No -Treatment Response Procedure Tolerated Well -Debridement - Subq, 1st 20sq cm Yes [See Physician Procedure note for Specifics] Pain Scale: 0-10 Numeric [Pain] -Is Patient Pain Free? Yes WC - Nurse 3 - General Ulcer D/C NN Start: 03/18/20 13:12 Freq: Status: Active Protocol: Activity Type Activity Date Activity User E-Sign Co-Sign Detail Recorded Client Recorded Date Recorded By Document 04/01/20 13:51 [id number] 04/01/20 13:53 RB 04/01/20 13:51 Wound Care Nurse 3 [Wound Dressing] #17- R HEEL -Ulcer Cleansing Rinsed/ Irrigated with Saline -Primary Dressing Applied Promogran -Other Dressing abd nurses hat, kerlix, garry -Primary Dressing Covered/Secured Dry Gauze,Dry with Gauze & Roll Gauze,Secured with Tape -Promogran 1 [Post Procedure Tolerated] -Treatment Response Procedure Tolerated Well Vital Signs [Blood Pressure] -Blood Pressure (90/60-120/80) 145/68 H -Blood Pressure Mean (mm Hg) 93 -Source Monitor -Position Sitting -Blood Pressure Location Left Arm Pain Scale: 0-10 Numeric [Pain] -Is Patient Pain Free? No [Location] L heel -Description Sharp -Intensity 8 Query Text:If >3, intervention needed -Duration (hours) Acute -Pain Behavior Irritability -Pain Aggravating Factors ADL's,Exercise/ Activity, Standing, Walking -Alleviating Factors/Interventions Medication -Effectiveness of Alleviating Factor/ Minimally Intervention effective Teaching: Wound Center [Wound Center Education] (Items with an * have Printed Materials Available- Please identify what is given to patient under the Teaching materials given to patient and caregiver Section. Offload: Mattress, Cushion, Reposition -Person Taught Patient -Teaching Method Demonstration -Response to teaching Verbalize understanding Dressing Your Wound -Person Taught Patient -Teaching Method Discussion, Demonstration -Response to teaching Verbalize understanding WC - Visit Discharge [Visit Discharge Information] -Discharge Condition Stable -Ambulatory Status Wheelchair -Transportation Private Auto -Medication Reconcilliation completed No & provided to patient/care provider -Clinical Summary of Care Provided Yes Psych/Mental Status: Normal Affect, Appropriate Debridement Note Post-Debridement Measurements/Treatment WC - Nurse 2 - General Ulcer CM Notes Start: 03/18/20 13:12 Freq: Status: Active Protocol: Activity Type Activity Date Activity User E-Sign Co-Sign Detail Recorded Client Recorded Date Recorded By Document 03/18/20 13:40 MW [id number] 03/18/20 13:50 MW Document 04/01/20 13:06 MW [id number] 04/01/20 13:35 MW 03/18/20 04/01/20 13:40 13:06 Wound Center Nurse 2 #17- R HEEL -Time 13:43 13:06 -Correct Patient Yes Yes -Correct Side, Site, Position Yes Yes -Correct Procedure Yes Yes -Procedure Performed Yes Yes -Type of Procedure Debridement Debridement -Clinical Debridement Subcutaneous Subcutaneous -Tissue Removed Subcutaneous Subcutaneous -Post Debridement (cm) - Length 0.8 0.8 -Post Debridement (cm) - Width 0.3 0.7 -Post Debridement (cm) - Depth 0.5 0.5 -Total Square (Post) (cm) 0.24 0.56 -Area of Debridement (cm) - Length 0.8 0.8 -Area of Debridement (cm) - Width 0.3 0.7 -Total Square (Area) (cm) 0.24 0.56 -Tunneling No No -Undermining/Tunneling No No -Circular Undermining No No -Wound/Ulcer Outcome Not Healed Not Healed -Ulcer Cleansing Rinsed/ Rinsed/ Irrigated with Irrigated with Saline Saline -Foul Odor after Cleansing No No -Bioengineered Tissue No No -Bleeding Controlled with Pressure Pressure -Offloading No No -Treatment Response Procedure Procedure Tolerated Well Tolerated Well -Debridement - Subq, 1st 20sq cm Yes Yes Pain Scale: 0-10 Numeric Is Patient Pain Free? Yes Yes WC - Nurse 3 - General Ulcer D/C NN Start: 03/18/20 13:12 Freq: Status: Active Protocol: Activity Type Activity Date Activity User E-Sign Co-Sign Detail Recorded Client Recorded Date Recorded By Document 03/18/20 14:02 RB [id number] 03/18/20 14:04 RB Document 04/01/20 13:51 RB [id number] 04/01/20 13:53 RB 03/18/20 04/01/20 14:02 13:51 Wound Care Nurse 3 #17- R HEEL -Ulcer Cleansing Rinsed/ Rinsed/ Irrigated with Irrigated with Saline Saline -Primary Dressing Applied Promogran Promogran -Other Dressing garry abd nurses hat, kerlix, garry -Primary Dressing Covered/Secured with Dry Gauze,Dry Dry Gauze,Dry Gauze & Roll Gauze & Roll Gauze,Secured Gauze,Secured with Tape with Tape -Promogran 1 1 Treatment Response Procedure Procedure Tolerated Well Tolerated Well Vital Signs Pulse Rate (60-100) 88 Pulse Location Monitor Respiratory Rate (12-18) 18 Respiratory rate source Observation Blood Pressure (90/60-120/80) 144/70 H 145/68 H Blood Pressure Mean (mm Hg) 94 93 Source Monitor Monitor Position Semi-Fowlers Sitting Blood Pressure Location Left Arm Left Arm Pain Scale: 0-10 Numeric Is Patient Pain Free? Yes No L heel -Description Sharp -Intensity 8 Query Text:If >3, intervention needed -Duration (hours) Acute -Pain Behavior Irritability -Pain Aggravating Factors ADL's,Exercise/ Activity, Standing, Walking -Alleviating Factors/Interventions Medication -Effectiveness of Alleviating Factor/ Minimally Intervention effective Teaching: Wound Center Offload: Mattress, Cushion, Reposition -Person Taught Patient -Teaching Method Demonstration -Response to teaching Verbalize understanding Dressing Your Wound -Person Taught Patient Patient -Teaching Method Discussion, Discussion, Demonstration Demonstration -Response to teaching Verbalize Verbalize understanding understanding WC - Visit Discharge Discharge Condition Stable Stable Ambulatory Status Wheelchair Wheelchair Transportation Private Auto Private Auto Medication Reconcilliation completed & No No provided to patient/care provider Clinical Summary of Care Provided Yes Yes Wound debrided: right heel Laterality: Right Wound Grade/Stage: Grade 3 Type of Debridement: Excisional debridement Anesthesia Used: 4% Lidocaine Solution Depth: Down to and including healthy tissue, in the subcutaneous layer, to muscle Percentage of wound debrided: 100 Instrument Used: #15 blade, Forceps Tissue Removed: Yellow slough, devitalized tissue Severity: Fat Layer Exposed Amount of bleeding with debridement: Mild Bleeding Controlled with: Compression and gauze Patient tolerated procedure well Assessment/Plan Assessment: 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 Diabetes navdeep litus - controlled. Peripheral vascular disease - status post revascularization 08/07/18 and 03/2019 Plan: Demetriuss ulcer was evaluated and debrided today with slight improvement from last week. Will continue to use promogran to his right heel and dorsal second toe. Encouraged to call with any increase in pain or drainage, fever or chills. F/U in 1 week.
[2020-04-08 13:23] VITALS: BP 160/90; PULSE 90; RESP 18; TEMP 36.6; BMI 25.8
[2020-04-08 14:31] VITALS: BP 156/90
--- NOTE | 2020-04-08 15:44 | PCM.WC.PN ---
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 Code(s): L97.514 - Non-pressure chronic ulcer of other part of right foot with necrosis of bone (3) Open wound of right heel Status: Chronic Qualifiers: Encounter type: subsequent encounter Code(s): S91.301A - Unspecified open wound, right foot, initial encounter (4) Peripheral arterial occlusive disease Status: Chronic Code(s): I77.9 - Disorder of arteries and arterioles, unspecified (5) Diabetes mellitus Status: Chronic Qualifiers: Diabetes mellitus type: type 2 Diabetes mellitus press tender long goods insulin use: without senior care use Diabetes mellitus complication status: with skin complications Diabetes mellitus complication detail: with foot ulcer Qualified Code(s): E11.621 - Type 2 diabetes mellitus with foot ulcer; L97.509 - Non-pressure chronic ulcer of other part of unspecified foot with unspecified severity Code(s): E11.9 - Type 2 diabetes mellitus without complications (6) Diabetic ulcer of toe of right foot Status: Chronic Qualifiers: Diabetes mellitus type: type 2 Non-pressure ulcer stage: with necrosis of muscle Qualified Code(s): E11.621 - Type 2 diabetes mellitus with foot ulcer; L97.513 - Non-pressure chronic ulcer of other part of right foot with necrosis of muscle Code(s): E11.621 - Type 2 diabetes mellitus with foot ulcer; L97.519 - Non-pressure chronic ulcer of other part of right foot with unspecified severity (7) Type 2 diabetes, uncontrolled, with ulcer of heel Status: Chronic Code(s): E11.621 - Type 2 diabetes mellitus with foot ulcer; E11.65 - Type 2 diabetes mellitus with hyperglycemia; L97.409 - Non-pressure chronic ulcer of unspecified heel and midfoot with unspecified severity Comment: right plantar heel (8) PAD (peripheral artery disease) Status: Chronic Code(s): I73.9 - Peripheral vascular disease, unspecified (9) Type 2 diabetes, controlled, with ulcer of heel Status: Chronic Code(s): E11.621 - Type 2 diabetes mellitus with foot ulcer; L97.409 - Non-pressure chronic ulcer of unspecified heel and midfoot with unspecified severity (10) Type II diabetes mellitus Status: Chronic Qualifiers: Diabetes mellitus press tender long goods insulin use: without senior care use Diabetes mellitus complication detail: with foot ulcer Code(s): E11.9 - Type 2 diabetes mellitus without complications Comment: Valdez grade 3 Type of Wound Date of Service: 04/08/20 Chief Complaint: Nonhealing ulcer right heel, Valdez Grade 3 diabetic ulcer. History of Wound: Gibson is here for evaluation of an ulcer of his right heel. He was recently treated for this same area with [place] application and was discharged in January 2019. 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 He has been applying Aquacel and gauze to the ulcer. He does follow with Dr. Navas regularly and had a bypass of his right SFA and popliteal arteries in September 2018. He has had procedures for his arterial disease in past to both of his lower extremities. He has tried alternative treatments with supplements and chelation therapy in the past. He also has diabetes and recent A1C was 7.2% He does wear diabetic shoes. He had been undergoing chelation treatments by Dr. German in [place]. He denies fever, chills, erythema or heavy drainage. He reports significant pain and discomfort of his right heel and his entire right leg which no one can explain. In March 2019, he was hospitalized due to occlusion of his bypass graft in his right leg and Dr. Navas was able to open it 50%. He also has blockages in his left leg. Dr. Navas is unable to revascularize either leg at this time and he may ultimately require limb amputation if his vascular disease worsens. December 11, 2019, he was sent to the emergency room with worsening of his ulcer and cellulitis. Dr. Good performed surgical debridement on December 12, 2019 and he was treated with IV antibiotics for over 4 weeks and was in the transitional care unit at [facility] for Rehab and treatment with wound vac. He was discharged on January 23, 2020 to home with continued wound vac treatment. Progress of Wound: Gibson is here to follow up for nonhealing ulcer of his right heel. He tolerated Promogran. His states that there has been less drainage. He denies any increased pain or erythema. - Physical Exam Vital Signs Temp Pulse Resp BP 97.8 F 90 18 156/90 H 04/08/20 13:23 04/08/20 13:23 04/08/20 13:23 04/08/20 14:31 General: Alert, Oriented x3, Cooperative, No apparent distress HEENT: Atraumatic, Normocephalic Oral: Moist Mucosa Extremities: Edema Skin: Ulcer/ Wound Wound Measurements and Assessment WC - Nurse 1 - General Ulcer Measurement Start: 03/18/20 13:12 Freq: Status: Active Protocol: Activity Type Activity Date Activity User E-Sign Co-Sign Detail Recorded Client Recorded Date Recorded By Document 04/08/20 13:23 RB [id number] 04/08/20 13:28 RB 04/08/20 13:23 Wound Center Nurse 1 [Ulcer Assessment] #17- R HEEL -Combined with other wound No -Current Size (cm) - Length 1.4 -Current Size (cm) - Width 0.9 -Current Size (cm) - Depth 0.4 -Total Square Cm 1.26 -Tunneling No -Undermining/Tunneling No -Circular Undermining No -Exudate Amt Small -Exudate Type Serosanguineous -Wound Margin Flat & Intact -Granulation Amt Small (1-33%) -Granulation Quality [place] -Slough/Fibrin Yes -Necrosis Amt Large (67-100%) -Necrotic Tissue Type Adherent Slough -Structure Exposed N/A -Texture (Shahana-wound Skin Appearance) Assessed,Callus -Moisture (Shahana-wound Skin Appearance Assessed,Dry/ ) Scaly -Color (Shahana-wound Skin Appearance) Assessed -Temperature (Shahana-wound Skin No Abnormality Appearance) (Pt Warm) -Tenderness on Palpation (Shahana-wound No Skin Appearance) -Ulcer Cleansing Wound Cleanser -Foul Odor after Cleansing No -Anesthetic Used 5% Lidocaine Gel WC - Nurse 2 - General Ulcer CM Notes Start: 03/18/20 13:12 Freq: Status: Active Protocol: Activity Type Activity Date Activity User E-Sign Co-Sign Detail Recorded Client Recorded Date Recorded By Document 04/08/20 13:55 MW [id number] 04/08/20 15:30 MW 04/08/20 13:55 Wound Center Nurse 2 [Procedure/Treatment] -Time 13:56 -Correct Patient Yes -Correct Side, Site, Position Yes -Correct Procedure Yes -Procedure Performed Yes -Type of Procedure Debridement -Clinical Debridement Subcutaneous -Tissue Removed Subcutaneous -Post Debridement (cm) - Length 0.6 -Post Debridement (cm) - Width 0.3 -Post Debridement (cm) - Depth 0.3 -Total Square (Post) (cm) 0.18 -Area of Debridement (cm) - Length 0.6 -Area of Debridement (cm) - Width 0.3 -Total Square (Area) (cm) 0.18 -Tunneling No -Undermining/Tunneling No -Circular Undermining No -Wound/Ulcer Outcome Not Healed -Ulcer Cleansing Rinsed/ Irrigated with Saline -Foul Odor after Cleansing No -Bioengineered Tissue No -Bleeding Controlled with Pressure -Offloading No -Treatment Response Procedure Tolerated Well -Debridement - Subq, 1st 20sq cm Yes [See Physician Procedure note for Specifics] Pain Scale: 0-10 Numeric [Pain] -Is Patient Pain Free? Yes - Nurse 3 - General Ulcer D/C NN Start: 03/18/20 13:12 Freq: Status: Active Protocol: Activity Type Activity Date Activity User E-Sign Co-Sign Detail Recorded Client Recorded Date Recorded By Document 04/08/20 14:31 RB [id number] 04/08/20 14:32 RB 04/08/20 14:31 Wound Care Nurse 3 [Wound Dressing] #17- R HEEL -Ulcer Cleansing Rinsed/ Irrigated with Saline -Primary Dressing Applied Promogran -Other Dressing abd nurses hat -Primary Dressing Covered/Secured Dry Gauze,Dry with Gauze & Roll Gauze,Secured with Tape -Other Covering garry -Promogran 1 [Post Procedure Tolerated] -Treatment Response Procedure Tolerated Well Vital Signs [Blood Pressure] -Blood Pressure (90/60-120/80) 156/90 H -Blood Pressure Mean (mm Hg) 112 -Source Monitor -Position Semi-Fowlers -Blood Pressure Location Left Arm Pain Scale: 0-10 Numeric [Pain] -Is Patient Pain Free? Yes - Visit Discharge [Visit Discharge Information] -Discharge Condition Stable -Ambulatory Status Wheelchair -Transportation Private Auto -Medication Reconcilliation completed No & provided to patient/care provider -Clinical Summary of Care Provided Yes Psych/Mental Status: Normal Affect, Appropriate Debridement Note Post-Debridement Measurements/Treatment - Nurse 2 - General Ulcer CM Notes Start: 03/18/20 13:12 Freq: Status: Active Protocol: Activity Type Activity Date Activity User E-Sign Co-Sign Detail Recorded Client Recorded Date Recorded By Document 03/18/20 13:40 MW [id number] 03/18/20 13:50 MW Document 04/01/20 13:06 MW [id number] 04/01/20 13:35 MW Document 04/08/20 13:55 MW [id number] 04/08/20 15:30 MW 03/18/20 04/01/20 04/08/20 13:40 13:06 13:55 Wound Center Nurse 2 #17- R HEEL -Time 13:43 13:06 13:56 -Correct Patient Yes Yes Yes -Correct Side, Site, Position Yes Yes Yes -Correct Procedure Yes Yes Yes -Procedure Performed Yes Yes Yes -Type of Procedure Debridement Debridement Debridement -Clinical Debridement Subcutaneous Subcutaneous Subcutaneous -Tissue Removed Subcutaneous Subcutaneous Subcutaneous -Post Debridement (cm) - Length 0.8 0.8 0.6 -Post Debridement (cm) - Width 0.3 0.7 0.3 -Post Debridement (cm) - Depth 0.5 0.5 0.3 -Total Square (Post) (cm) 0.24 0.56 0.18 -Area of Debridement (cm) - Length 0.8 0.8 0.6 -Area of Debridement (cm) - Width 0.3 0.7 0.3 -Total Square (Area) (cm) 0.24 0.56 0.18 -Tunneling No No No -Undermining/Tunneling No No No -Circular Undermining No No No -Wound/Ulcer Outcome Not Healed Not Healed Not Healed -Ulcer Cleansing Rinsed/ Rinsed/ Rinsed/ Irrigated with Irrigated with Irrigated with Saline Saline Saline -Foul Odor after Cleansing No No No -Bioengineered Tissue No No No -Bleeding Controlled with Pressure Pressure Pressure -Offloading No No No -Treatment Response Procedure Procedure Procedure Tolerated Well Tolerated Well Tolerated Well -Debridement - Subq, 1st 20sq cm Yes Yes Yes Pain Scale: 0-10 Numeric Is Patient Pain Free? Yes Yes Yes WC - Nurse 3 - General Ulcer D/C NN Start: 03/18/20 13:12 Freq: Status: Active Protocol: Activity Type Activity Date Activity User E-Sign Co-Sign Detail Recorded Client Recorded Date Recorded By Document 03/18/20 14:02 RB [id number] 03/18/20 14:04 RB Document 04/01/20 13:51 RB [id number] 04/01/20 13:53 RB Document 04/08/20 14:31 RB [id number] 04/08/20 14:32 RB 03/18/20 04/01/20 04/08/20 14:02 13:51 14:31 Wound Care Nurse 3 #17- R HEEL -Ulcer Cleansing Rinsed/ Rinsed/ Rinsed/ Irrigated with Irrigated with Irrigated with Saline Saline Saline -Primary Dressing Applied Promogran Promogran Promogran -Other Dressing garry abd nurses hat, abd nurses hat kerlix, garry -Primary Dressing Covered/Secured with Dry Gauze,Dry Dry Gauze,Dry Dry Gauze,Dry Gauze & Roll Gauze & Roll Gauze & Roll Gauze,Secured Gauze,Secured Gauze,Secured with Tape with Tape with Tape -Other Covering garry -Promogran 1 1 1 Treatment Response Procedure Procedure Procedure Tolerated Well Tolerated Well Tolerated Well Vital Signs Pulse Rate (60-100) 88 Pulse Location Monitor Respiratory Rate (12-18) 18 Respiratory rate source Observation Blood Pressure (90/60-120/80) 144/70 H 145/68 H 156/90 H Blood Pressure Mean (mm Hg) 94 93 112 Source Monitor Monitor Monitor Position Semi-Fowlers Sitting Semi-Fowlers Blood Pressure Location Left Arm Left Arm Left Arm Pain Scale: 0-10 Numeric Is Patient Pain Free? Yes No Yes L heel -Description Sharp -Intensity 8 -Duration (hours) Acute -Pain Behavior Irritability -Pain Aggravating Factors ADL's,Exercise/ Activity, Standing, Walking -Alleviating Factors/Interventions Medication -Effectiveness of Alleviating Factor/ Minimally Intervention effective Teaching: Wound Center Offload: Mattress, Cushion, Reposition -Person Taught Patient -Teaching Method Demonstration -Response to teaching Verbalize understanding Dressing Your Wound -Person Taught Patient Patient -Teaching Method Discussion, Discussion, Demonstration Demonstration -Response to teaching Verbalize Verbalize understanding understanding WC - Visit Discharge Discharge Condition Stable Stable Stable Ambulatory Status Wheelchair Wheelchair Wheelchair Transportation Private Auto Private Auto Private Auto Medication Reconcilliation completed & No No No provided to patient/care provider Clinical Summary of Care Provided Yes Yes Yes Wound debrided: right heel Laterality: Right Wound Grade/Stage: Valdez grade 3 Type of Debridement: Excisional debridement Anesthesia Used: 4% Lidocaine Solution, 5% Lidocaine Gel Depth: Down to and including healthy tissue, in the subcutaneous layer Percentage of wound debrided: 100 Instrument Used: #15 blade, Forceps Tissue Removed: Yellow slough, devitalized tissue Severity: Fat Layer Exposed Amount of bleeding with debridement: Mild Bleeding Controlled with: Compression and gauze Patient tolerated procedure well Assessment/Plan Active Problems Type 2 diabetes mellitus with diabetic polyneuropathy (Chronic) Ulcer of right foot with necrosis of bone (Chronic) Open wound of right heel (Chronic) Peripheral arterial occlusive disease (Chronic) Diabetes mellitus (Chronic) Diabetic ulcer of toe of right foot (Chronic) Type 2 diabetes, uncontrolled, with ulcer of heel (Chronic) right plantar heel PAD (peripheral artery disease) (Chronic) Type 2 diabetes, controlled, with ulcer of heel (Chronic) Type II diabetes mellitus (Chronic) Valdez grade 3 Assessment: 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 Diabetes mellitus - controlled. Peripheral vascular disease - status post revascularization 08/07/18 and 03/2019 Plan: Gibson's ulcer was evaluated and debrided today with slight improvement from last week. Will continue to use promogran to his right heel. Encouraged to call with any increase in pain or drainage, fever or chills. F/U in 1 week.
[2020-04-15 12:36] VITALS: BP 123/74; PULSE 64; RESP 16; TEMP 35.8; BMI 25.8
--- NOTE | 2020-04-15 14:29 | PN.PCM_ITS ---
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 Code(s): L97.514 - Non-pressure chronic ulcer of other part of right foot with necrosis of bone (3) Open wound of right heel Status: Chronic Qualifiers: Encounter type: subsequent encounter Code(s): S91.301A - Unspecified open wound, right foot, initial encounter (4) Peripheral arterial occlusive disease Status: Chronic Code(s): I77.9 - Disorder of arteries and arterioles, unspecified (5) Diabetes mellitus Status: Chronic Qualifiers: Diabetes mellitus type: type 2 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 owner operator truck driver insulin use: without long-term use Diabetes mellitus complication status: with skin complications Diabetes mellitus complication detail: with foot ulcer Qualified Code(s): E11.621 - Type 2 diabetes mellitus with foot ulcer; L97.509 - Non-pressure chronic ulcer of other part of unspecified foot with unspecified severity Code(s): E11.9 - Type 2 diabetes mellitus without complications (6) Diabetic ulcer of toe of right foot Status: Chronic Qualifiers: Diabetes mellitus type: type 2 Non-pressure ulcer stage: with necrosis of muscle Qualified Code(s): E11.621 - Type 2 diabetes mellitus with foot ulcer; L97.513 - Non-pressure chronic ulcer of other part of right foot with necrosis of muscle Code(s): E11.621 - Type 2 diabetes mellitus with foot ulcer; L97.519 - Non- pressure chronic ulcer of other part of right foot with unspecified severity (7) Type 2 diabetes, uncontrolled, with ulcer of heel Status: Chronic Code(s): E11.621 - Type 2 diabetes mellitus with foot ulcer; E11.65 - Type 2 diabetes mellitus with hyperglycemia; L97.409 - Non-pressure chronic ulcer of unspecified heel and midfoot with unspecified severity Comment: right plantar heel (8) PAD (peripheral artery disease) Status: Chronic Code(s): I73.9 - Peripheral vascular disease, unspecified (9) Type 2 diabetes, controlled, with ulcer of heel Status: Chronic Code(s): E11.621 - Type 2 diabetes mellitus with foot ulcer; L97.409 - Non-pressure chronic ulcer of unspecified heel and midfoot with unspec ified severity (10) Type II diabetes mellitus Status: Chronic Qualifiers: 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 owner operator truck driver insulin use: without intermodal owner operator truck driver use Diabetes mellitus complication detail: with foot ulcer Code(s): E11.9 - Type 2 diabetes mellitus without complications Comment: Valdez grade 3 Type of Wound Date of Service: 04/15/20 Chief Complaint: Nonhealing ulcer right heel, Valdez Grade 3 diabetic ulcer. History of Wound: Gibson is here for evaluation of an ulcer of his right heel. He was recently treated for this same area with [place]in application and was discharged in January 2019. He had noticed increased pain in his heel in March and his noted that the area had opened after his local announcer had debrided some callus from the area. He has been applying Aquacel and gauze to the ulcer. He does follow with Dr. Navas regularly and had a bypass of his right SFA and popliteal arteries in September 2018. He has had procedures for his arterial disease in past to both of his lower extremities. He has tried alternative treatments with supplements and chelation therapy in the past. He also has diabetes and recent A1C was 7.2% He does wear diabetic shoes. He had been undergoing chelation treatments by Dr. German in [place]. He denies fever, chills, erythema or heavy drainage. He reports significant pain and discomfort of his right heel and his entire right leg which no one can explain. In March 2019, he was hospitalized due to occlusion of his bypass graft in his right leg and Dr. Navas was able to open it 50%. He also has blockages in his left leg. Dr. Navas is unable to revascularize either leg at this time and he may ultimately require limb amputation if his vascular disease worsens. December 11, 2019, he was sent to the emergency room with worsening of his ulcer and cellulitis. Dr. Good performed surgical debridement on December 12, 2019 and he was treated with IV antibiotics for over 4 weeks and was in the transitional care unit at [facility] for Rehab and treatment with wound vac. He was discharged on January 23, 2020 to home with continued wound vac treatment. Progress of Wound: Gibson is here to follow up for nonhealing ulcer of his right heel. He tolerated Promogran. He denies any increased pain or erythema. - Physical Exam Vital Signs Temp Pulse Resp BP 96.5 F L 64 16 123/74 H 04/15/20 12:36 04/15/20 12:36 04/15/20 12:36 04/15/20 12:36 General: Alert, Oriented x3, Cooperative, No apparent distress HEENT: Atraumatic, Normocephalic Oral: Moist Mucosa Extremities: No cyanosis, Diminished Peripheral Pulses, Edema Skin: Ulcer/ Wound Wound Measurements and Assessment WC - Nurse 1 - General Ulcer Measurement Start: 03/18/20 13:12 Freq: Status: Active Protocol: Activity Type Activity Date Activity User E-Sign Co-Sign Detail Recorded Client Recorded Date Recorded By Document 04/15/20 12:36 BM [id number] 04/15/20 12:44 BMF 04/15/20 12:36 Wound Center Nurse 1 [Ulcer Assessment] #17- R HEEL -Current Size (cm) - Length 0.8 -Current Size (cm) - Width 0.4 -Current Size (cm) - Depth 0.2 -Total Square Cm 0.32 -Photo Taken No -Exudate Amt Small -Wound Margin Distinct, Outline Attached -Granulation Amt Small (1-33%) -Granulation Quality Red -Necrosis Amt Small (1-33%) -Necrotic Tissue Type Adherent Slough -Structure Exposed N/A -Texture (Shahana-wound Skin Appearance) Scarring -Moisture (Shahana-wound Skin Appearance No Abnormality ) -Color (Shahana-wound Skin Appearance) No Abnormality -Temperature (Shahana-wound Skin No Abnormality Appearance) (Pt Warm) -Tenderness on Palpation (Shahana-wound No Skin Appearance) -Ulcer Cleansing Rinsed/ Irrigated with Saline -Foul Odor after Cleansing No -Anesthetic Used 5% Lidocaine Gel WC - Nurse 2 - General Ulcer CM Notes Start: 03/18/20 13:12 Freq: Status: Active Protocol: Activity Type Activity Date Activity User E-Sign Co-Sign Detail Recorded Client Recorded Date Recorded By Document 04/15/20 13:01 MW [id number] 04/15/20 13:13 MW 04/15/20 13:01 Wound Center Nurse 2 [Procedure/Treatment] -Time 13:01 -Correct Patient Yes -Correct Side, Site, Position Yes -Correct Procedure Yes -Procedure Performed Yes -Type of Procedure Debridement -Clinical Debridement Subcutaneous -Tissue Removed Subcutaneous -Post Debridement (cm) - Length 0.6 -Post Debridement (cm) - Width 0.3 -Post Debridement (cm) - Depth 0.3 -Total Square (Post) (cm) 0.18 -Area of Debridement (cm) - Length 0.6 -Area of Debridement (cm) - Width 0.3 -Total Square (Area) (cm) 0.18 -Tunneling No -Undermining/Tunneling No -Circular Undermining No -Wound/Ulcer Outcome Not Healed -Ulcer Cleansing Rinsed/ Irrigated with Saline -Foul Odor after Cleansing No -Bioengineered Tissue No -Bleeding Controlled with Pressure -Offloading No -Treatment Response Procedure Tolerated Well -Debridement - Subq, 1st 20sq cm Yes [See Physician Procedure note for Specifics] Pain Scale: 0-10 Numeric [Pain] -Is Patient Pain Free? Yes - Nurse 3 - General Ulcer D/C NN Start: 03/18/20 13:12 Freq: Status: Active Protocol: Activity Type Activity Date Activity User E-Sign Co-Sign Detail Recorded Client Recorded Date Recorded By Document 04/15/20 13:13 MW [id number] 04/15/20 13:17 MW 04/15/20 13:13 Wound Care Nurse 3 [Wound Dressing] #17- R HEEL -Ulcer Cleansing Rinsed/ Irrigated with Saline -Foul Odor after Cleansing No -Negative Pressure Wound Therapy N/A -Primary Dressing Applied Promogran -Primary Dressing Covered/Secured Dry Gauze & with Roll Gauze, Secured with Tape -Other Covering abd pad -Promogran 1 [Compression Applied] Left -Lotion applied to leg before No compression wrap -Compression Wrap Leopoldo Wrap [Post Procedure Tolerated] -Treatment Response Procedure Tolerated Well Teaching: Wound Center [Wound Center Education] (Items with an * have Printed Materials Available- Please identify what is given to patient under the Teaching materials given to patient and caregiver Section. Dressing Your Wound -Person Taught Patient -Teaching Method Discussion, Demonstration -Response to teaching Verbalize understanding - Visit Discharge [Visit Discharge Information] -Discharge Condition Stable -Ambulatory Status Ambulatory,Cane -Transportation Private Auto -Accompanied by self -Medication Reconcilliation completed No & provided to patient/care provider -Clinical Summary of Care Provided Yes Psych/Mental Status: Normal Affect, Appropriate Debridement Note Post-Debridement Measurements/Treatment - Nurse 2 - General Ulcer CM Notes Start: 03/18/20 13:12 Freq: Status: Active Protocol: Activity Type Activity Date Activity User E-Sign Co-Sign Detail Recorded Client Recorded Date Recorded By Document 03/18/20 13:40 MW [id number] 03/18/20 13:50 MW Document 04/01/20 13:06 MW [id number] 04/01/20 13:35 MW Document 04/08/20 13:55 MW [id number] 04/08/20 15:30 MW Document 04/15/20 13:01 MW [id number] 04/15/20 13:13 MW 03/18/20 04/01/20 04/08/20 13:40 13:06 13:55 Wound Center Nurse 2 #17- R HEEL -Time 13:43 13:06 13:56 -Correct Patient Yes Yes Yes -Correct Side, Site, Position Yes Yes Yes -Correct Procedure Yes Yes Yes -Procedure Performed Yes Yes Yes -Type of Procedure Debridement Debridement Debridement -Clinical Debridement Subcutaneous Subcutaneous Subcutaneous -Tissue Removed Subcutaneous Subcutaneous Subcutaneous -Post Debridement (cm) - Length 0.8 0.8 0.6 -Post Debridement (cm) - Width 0.3 0.7 0.3 -Post Debridement (cm) - Depth 0.5 0.5 0.3 -Total Square (Post) (cm) 0.24 0.56 0.18 -Area of Debridement (cm) - Length 0.8 0.8 0.6 -Area of Debridement (cm) - Width 0.3 0.7 0.3 -Total Square (Area) (cm) 0.24 0.56 0.18 -Tunneling No No No -Undermining/Tunneling No No No -Circular Undermining No No No -Wound/Ulcer Outcome Not Healed Not Healed Not Healed -Ulcer Cleansing Rinsed/ Rinsed/ Rinsed/ Irrigated with Irrigated with Irrigated with Saline Saline Saline -Foul Odor after Cleansing No No No -Bioengineered Tissue No No No -Bleeding Controlled with Pressure Pressure Pressure -Offloading No No No -Treatment Response Procedure Procedure Procedure Tolerated Well Tolerated Well Tolerated Well -Debridement - Subq, 1st 20sq cm Yes Yes Yes Pain Scale: 0-10 Numeric Is Patient Pain Free? Yes Yes Yes 04/15/20 13:01 Wound Center Nurse 2 #17- R HEEL -Time 13:01 -Correct Patient Yes -Correct Side, Site, Position Yes -Correct Procedure Yes -Procedure Performed Yes -Type of Procedure Debridement -Clinical Debridement Subcutaneous -Tissue Removed Subcutaneous -Post Debridement (cm) - Length 0.6 -Post Debridement (cm) - Width 0.3 -Post Debridement (cm) - Depth 0.3 -Total Square (Post) (cm) 0.18 -Area of Debridement (cm) - Length 0.6 -Area of Debridement (cm) - Width 0.3 -Total Square (Area) (cm) 0.18 -Tunneling No -Undermining/Tunneling No -Circular Undermining No -Wound/Ulcer Outcome Not Healed -Ulcer Cleansing Rinsed/ Irrigated with Saline -Foul Odor after Cleansing No -Bioengineered Tissue No -Bleeding Controlled with Pressure -Offloading No -Treatment Response Procedure Tolerated Well -Debridement - Subq, 1st 20sq cm Yes Pain Scale: 0-10 Numeric Is Patient Pain Free? Yes WC - Nurse 3 - General Ulcer D/C NN Start: 03/18/20 13:12 Freq: Status: Active Protocol: Activity Type Activity Date Activity User E-Sign Co-Sign Detail Recorded Client Recorded Date Recorded By Document 03/18/20 14:02 RB [id number] 03/18/20 14:04 RB Document 04/01/20 13:51 RB [id number] 04/01/20 13:53 RB Document 04/08/20 14:31 RB [id number] 04/08/20 14:32 RB Document 04/15/20 13:13 MW [id number] 04/15/20 13:17 MW 03/18/20 04/01/20 04/08/20 14:02 13:51 14:31 Wound Care Nurse 3 #17- R HEEL -Ulcer Cleansing Rinsed/ Rinsed/ Rinsed/ Irrigated with Irrigated with Irrigated with Saline Saline Saline -Foul Odor after Cleansing -Negative Pressure Wound Therapy -Primary Dressing Applied Promogran Promogran Promogran -Other Dressing leopoldo abd nurses hat, abd nurses hat michelle, leopoldo -Primary Dressing Covered/Secured with Dry Gauze,Dry Dry Gauze,Dry Dry Gauze,Dry Gauze & Roll Gauze & Roll Gauze & Roll Gauze,Secured Gauze,Secured Gauze,Secured with Tape with Tape with Tape -Other Covering leopoldo -Promogran 1 1 1 Left -Lotion applied to leg before compression wrap -Compression Wrap Treatment Response Procedure Procedure Procedure Tolerated Well Tolerated Well Tolerated Well Vital Signs Pulse Rate (60-100) 88 Pulse Location Monitor Respiratory Rate (12-18) 18 Respiratory rate source Observation Blood Pressure (90/60-120/80) 144/70 H 145/68 H 156/90 H Blood Pressure Mean (mm Hg) 94 93 112 Source Monitor Monitor Monitor Position Semi-Fowlers Sitting Semi-Fowlers Blood Pressure Location Left Arm Left Arm Left Arm Pain Scale: 0-10 Numeric Is Patient Pain Free? Yes No Yes L heel -Description Sharp -Intensity 8 -Duration (hours) Acute -Pain Behavior Irritability -Pain Aggravating Factors ADL's,Exercise/ Activity, Standing, Walking -Alleviating Factors/Interventions Medication -Effectiveness of Alleviating Factor/ Minimally Intervention effective Teaching: Wound Center Offload: Mattress, Cushion, Reposition -Person Taught Patient -Teaching Method Demonstration -Response to teaching Verbalize understanding Dressing Your Wound -Person Taught Patient Patient -Teaching Method Discussion, Discussion, Demonstration Demonstration -Response to teaching Verbalize Verbalize understanding understanding WC - Visit Discharge Discharge Condition Stable Stable Stable Ambulatory Status Wheelchair Wheelchair Wheelchair Transportation Private Auto Private Auto Private Auto Accompanied by Medication Reconcilliation completed & No No No provided to patient/care provider Clinical Summary of Care Provided Yes Yes Yes 04/15/20 13:13 Wound Care Nurse 3 #17- R HEEL -Ulcer Cleansing Rinsed/ Irrigated with Saline -Foul Odor after Cleansing No -Negative Pressure Wound Therapy N/A -Primary Dressing Applied Promogran -Other Dressing -Primary Dressing Covered/Secured with Dry Gauze & Roll Gauze, Secured with Tape -Other Covering abd pad -Promogran 1 Left -Lotion applied to leg before No compression wrap -Compression Wrap Leopoldo Wrap Treatment Response Procedure Tolerated Well Vital Signs Pulse Rate (60-100) Pulse Location Respiratory Rate (12-18) Respiratory rate source Blood Pressure (90/60-120/80) Blood Pressure Mean (mm Hg) Source Position Blood Pressure Location Pain Scale: 0-10 Numeric Is Patient Pain Free? L heel -Description -Intensity -Duration (hours) -Pain Behavior -Pain Aggravating Factors -Alleviating Factors/Interventions -Effectiveness of Alleviating Factor/ Intervention Teaching: Wound Center Offload: Mattress, Cushion, Reposition -Person Taught -Teaching Method -Response to teaching Dressing Your Wound -Person Taught Patient -Teaching Method Discussion, Demonstration -Response to teaching Verbalize understanding WC - Visit Discharge Discharge Condition Stable Ambulatory Status Ambulatory,Cane Transportation Private Auto Accompanied by self Medication Reconcilliation completed & No provided to patient/care provider Clinical Summary of Care Provided Yes Wound debrided: right heel Laterality: Right Wound Grade/Stage: Grade 3 Type of Debridement: Excisional debridement Anesthesia Used: 4% Lidocaine Solution, 5% Lidocaine Gel Depth: Down to and including healthy tissue, in the subcutaneous layer Percentage of wound debrided: 100 Instrument Used: 5mm curette Tissue Removed: Yellow slough, devitalized tissue Severity: Fat Layer Exposed Amount of bleeding with debridement: Mild Bleeding Controlled with: Compression and gauze Patient tolerated procedure well Assessment/Plan Active Problems Type 2 diabetes mellitus with diabetic polyneuropathy (Chronic) Ulcer of right foot with necrosis of bone (Chronic) Open wound of right heel (Chronic) Peripheral arterial occlusive disease (Chronic) Diabetes mellitus (Chronic) Diabetic ulcer of toe of right foot (Chronic) Type 2 diabetes, uncontrolled, with ulcer of heel (Chronic) right plantar heel PAD (peripheral artery disease) (Chronic) Type 2 diabetes, controlled, with ulcer of heel (Chronic) Type II diabetes mellitus (Chronic) Valdez grade 3 Assessment: 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 Diabetes mellitus - controlled. Peripheral vascular disease - status post revascularization 08/07/18 and 03/2019 Plan: Gibson's ulcer was evaluated and debrided today with slight improvement from last week. Will continue to use promogran to his right heel. Encouraged to call with any increase in pain or drainage, fever or chills. F/U in 1 week.
== END 2020-04-16 23:59 ==
LOC: WC 12:30
PROVIDERS: Family Provider Family Medicine; PCP Family Medicine; Referring Provider Family Medicine; Visit Provider Family Medicine
DX: E11.621 Type 2 diabetes mellitus with foot ulcer (principal); E11.42 Type 2 diabetes mellitus with diabetic polyneuropathy; E11.65 Type 2 diabetes mellitus with hyperglycemia; L97.412 Non-pressure chronic ulcer of right heel and midfoot with fat layer exposed; E11.51 Type 2 diabetes mellitus with diabetic peripheral angiopathy without gangrene
CPT/HCPCS: 11042

== ENCOUNTER 2020-05-13 11:00 | Outpatient (RCR) | payer MEDICARE, OTHER, SELFPAY ==
[2020-04-17 00:12] VITALS: BP 123/74; PULSE 64; RESP 16; TEMP 35.8
[2020-04-22 12:41] VITALS: BP 144/77; PULSE 72; RESP 20; TEMP 36.4; BMI 25.8
[2020-04-22 13:22] VITALS: BP 148/78
--- NOTE | 2020-04-22 14:16 | PCM.WC.PN ---
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 Code(s): L97.514 - Non-pressure chronic ulcer of other part of right foot with necrosis of bone (3) Open wound of right heel Status: Chronic Qualifiers: Encounter type: subsequent encounter Code(s): S91.301A - Unspecified open wound, right foot, initial encounter (4) Type 2 diabetes, uncontrolled, with ulcer of heel Status: Chronic Code(s): E11.621 - Type 2 diabetes mellitus with foot ulcer; E11.65 - Type 2 diabetes mellitus with hyperglycemia; L97.409 - Non-pressure chronic ulcer of unspecified heel and midfoot with unspecified severity Comment: right plantar heel (5) PAD (peripheral artery disease) Status: Chronic Code(s): I73.9 - Peripheral vascular disease, unspecified (6) Type 2 diabetes, controlled, with ulcer of heel Status: Chronic Code(s): E11.621 - Type 2 diabetes mellitus with foot ulcer; L97.409 - Non-pressure chronic ulcer of unspecified heel and midfoot with unspecified severity Type of Wound Date of Service: 04/22/20 Chief Complaint: Nonhealing ulcer right heel, Valdez Grade 3 diabetic ulcer. History of Wound: Gibson is here for evaluation of an ulcer of his right heel. He was recently treated for this same area with Theraskin application and was discharged in January 2019. He had noticed increased pain in his heel in March and his noted that the area had opened after his label tacker had debrided some callus from the area. He has been applying Aquacel and gauze to the ulcer. He does follow with Dr. Navas regularly and had a bypass of his right SFA and popliteal arteries in September 2018. He has had procedures for his arterial disease in past to both of his lower extremities. He has tried alternative treatments with supplements and chelation therapy in the past. He also has diabetes and recent A1C was 7.2% He does wear diabetic shoes. He had been undergoing chelation treatments by Dr. German in [place]. He denies fever, chills, erythema or heavy drainage. He reports significant pain and discomfort of his right heel and his entire right leg which no one can explain. In March 2019, he was hospitalized due to occlusion of his bypass graft in his right leg and Dr. Navas was able to open it 50%. He also has blockages in his left leg. Dr. Navas is unable to revascularize either leg at this time and he may ultimately require limb amputation if his vascular disease worsens. December 11, 2019, he was sent to the emergency room with worsening of his ulcer and cellulitis. Dr. Good performed surgical debridement on December 12, 2019 and he was treated with IV antibiotics for over 4 weeks and was in the transitional care unit at [facility] for Rehab and treatment with wound vac. He was discharged on January 23, 2020 to home with continued wound vac treatment. Progress of Wound: Gibson is here to follow up for nonhealing ulcer of his right heel. He is tolerating Promogran. He denies any increased pain or erythema. - Physical Exam Vital Signs Temp Pulse Resp BP 97.6 F L 72 20 H 148/78 H 04/22/20 12:41 04/22/20 12:41 04/22/20 12:41 04/22/20 13:22 General: Alert, Oriented x3, Cooperative, No apparent distress HEENT: Atraumatic, Normocephalic Oral: Moist Mucosa Extremities: Edema Skin: Ulcer/ Wound Wound Measurements and Assessment - Nurse 1 - General Ulcer Measurement Start: 04/22/20 12:41 Freq: Status: Active Protocol: Activity Type Activity Date Activity User E-Sign Co-Sign Detail Recorded Client Recorded Date Recorded By Document 04/22/20 12:41 [facility] [id number] 04/22/20 12:47 [facility] 04/22/20 12:41 Wound Center Nurse 1 [Ulcer Assessment] #17- R HEEL -Combined with other wound No -Current Size (cm) - Length 0.8 -Current Size (cm) - Width 0.5 -Current Size (cm) - Depth 0.1 -Total Square Cm 0.40 -Photo Taken No -Epithelialization None Present -Tunneling No -Undermining/Tunneling No -Circular Undermining No -Exudate Amt Small -Exudate Type Serosanguineous -Wound Margin Distinct, Outline Attached -Granulation Amt Medium (34-66%) -Granulation Quality [place] -Slough/Fibrin Yes -Necrosis Amt Medium (34-66%) -Necrotic Tissue Type Adherent Slough -Texture (Shahana-wound Skin Appearance) Assessed -Moisture (Shahana-wound Skin Appearance Assessed,Dry/ ) Scaly -Color (Shahana-wound Skin Appearance) Assessed -Temperature (Shahana-wound Skin No Abnormality Appearance) (Pt Warm) -Tenderness on Palpation (Shahana-wound No Skin Appearance) -Ulcer Cleansing Rinsed/ Irrigated with Saline -Foul Odor after Cleansing No -Anesthetic Used 5% Lidocaine Gel WC - Nurse 2 - General Ulcer CM Notes Start: 04/22/20 12:41 Freq: Status: Active Protocol: Activity Type Activity Date Activity User E-Sign Co-Sign Detail Recorded Client Recorded Date Recorded By Document 04/22/20 13:01 MW [id number] 04/22/20 13:17 MW 04/22/20 13:01 Wound Center Nurse 2 [Procedure/Treatment] -Time 13:02 -Correct Patient Yes -Correct Side, Site, Position Yes -Correct Procedure Yes -Procedure Performed Yes -Type of Procedure Debridement -Clinical Debridement Subcutaneous -Tissue Removed Subcutaneous -Post Debridement (cm) - Length 0.5 -Post Debridement (cm) - Width 0.3 -Post Debridement (cm) - Depth 0.4 -Total Square (Post) (cm) 0.15 -Area of Debridement (cm) - Length 0.5 -Area of Debridement (cm) - Width 0.3 -Total Square (Area) (cm) 0.15 -Tunneling No -Undermining/Tunneling No -Circular Undermining No -Wound/Ulcer Outcome Not Healed -Ulcer Cleansing Rinsed/ Irrigated with Saline -Foul Odor after Cleansing No -Bioengineered Tissue No -Bleeding Controlled with Pressure -Offloading No -Debridement - Subq, 1st 20sq cm Yes [See Physician Procedure note for Specifics] Pain Scale: 0-10 Numeric [Pain] -Is Patient Pain Free? Yes WC - Nurse 3 - General Ulcer D/C NN Start: 04/22/20 12:41 Freq: Status: Active Protocol: Activity Type Activity Date Activity User E-Sign Co-Sign Detail Recorded Client Recorded Date Recorded By Document 04/22/20 13:22 MS [id number] 04/22/20 13:24 MS 04/22/20 13:22 Wound Care Nurse 3 [Wound Dressing] #17- R HEEL -Ulcer Cleansing Rinsed/ Irrigated with Saline -Foul Odor after Cleansing No -Primary Dressing Applied Promogran -Primary Dressing Covered/Secured Dry Gauze & with Roll Gauze, Secured with Tape -Promogran 1 [Compression Applied] Right -Compression Wrap Leopoldo Wrap Vital Signs [Blood Pressure] -Blood Pressure (90/60-120/80) 148/78 H -Blood Pressure Mean (mm Hg) 101 -Source Monitor -Position Sitting -Blood Pressure Location Right Arm WC - Visit Discharge [Visit Discharge Information] -Discharge Condition Stable -Ambulatory Status Ambulatory -Medication Reconcilliation completed No & provided to patient/care provider -Clinical Summary of Care Provided Yes Psych/Mental Status: Normal Affect, Appropriate Debridement Note Post-Debridement Measurements/Treatment WC - Nurse 2 - General Ulcer CM Notes Start: 04/22/20 12:41 Freq: Status: Active Protocol: Activity Type Activity Date Activity User E-Sign Co-Sign Detail Recorded Client Recorded Date Recorded By Document 04/22/20 13:01 MW [id number] 04/22/20 13:17 04/22/20 13:01 Wound Center Nurse 2 #17- R HEEL -Time 13:02 -Correct Patient Yes -Correct Side, Site, Position Yes -Correct Procedure Yes -Procedure Performed Yes -Type of Procedure Debridement -Clinical Debridement Subcutaneous -Tissue Removed Subcutaneous -Post Debridement (cm) - Length 0.5 -Post Debridement (cm) - Width 0.3 -Post Debridement (cm) - Depth 0.4 -Total Square (Post) (cm) 0.15 -Area of Debridement (cm) - Length 0.5 -Area of Debridement (cm) - Width 0.3 -Total Square (Area) (cm) 0.15 -Tunneling No -Undermining/Tunneling No -Circular Undermining No -Wound/Ulcer Outcome Not Healed -Ulcer Cleansing Rinsed/ Irrigated with Saline -Foul Odor after Cleansing No -Bioengineered Tissue No -Bleeding Controlled with Pressure -Offloading No -Debridement - Subq, 1st 20sq cm Yes Pain Scale: 0-10 Numeric Is Patient Pain Free? Yes - Nurse 3 - General Ulcer D/C NN Start: 04/22/20 12:41 Freq: Status: Active Protocol: Activity Type Activity Date Activity User E-Sign Co-Sign Detail Recorded Client Recorded Date Recorded By Document 11/06/20 13:22 MS [id number] 04/22/20 13:24 MS 04/22/20 13:22 Wound Care Nurse 3 #17- R HEEL -Ulcer Cleansing Rinsed/ Irrigated with Saline -Foul Odor after Cleansing No -Primary Dressing Applied Promogran -Primary Dressing Covered/Secured with Dry Gauze & Roll Gauze, Secured with Tape -Promogran 1 Right -Compression Wrap Leopoldo Wrap Vital Signs Blood Pressure (90/60-120/80) 148/78 H Blood Pressure Mean (mm Hg) 101 Source Monitor Position Sitting Blood Pressure Location Right Arm WC - Visit Discharge Discharge Condition Stable Ambulatory Status Ambulatory Medication Reconcilliation completed & No provided to patient/care provider Clinical Summary of Care Provided Yes Wound debrided: right heel Laterality: Right Wound Grade/Stage: Grade 3 Type of Debridement: Excisional debridement Anesthesia Used: 4% Lidocaine Solution, 5% Lidocaine Gel Depth: Down to and including healthy tissue, in the subcutaneous layer Percentage of wound debrided: 100 Instrument Used: 3mm curette Tissue Removed: Yellow slough, devitalized tissue Severity: Fat Layer Exposed Amount of bleeding with debridement: Mild Bleeding Controlled with: Compression and gauze Patient tolerated procedure well Assessment/Plan Assessment: 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 Diabetes mellitus - controlled. Peripheral vascular disease - status post revascularization 08/07/18 and 03/2019 Plan: Demetriuss ulcer was evaluated and debrided today with slight improvement from last week. Will continue to use moistened promogran to his right heel and add adaptic. Encouraged to call with any increase in pain or drainage, fever or chills. F/U in 1 week.
[2020-05-05 13:00] VITALS: BP 145/73; PULSE 79; RESP 18; TEMP 36.3; BMI 25.8
--- NOTE | 2020-05-05 15:11 | PN.PCM_ITS ---
(1) Type 2 diabetes, uncontrolled, with ulcer of heel Status: Chronic Code(s): E11.621 - Type 2 diabetes mellitus with foot ulcer; E11.65 - Type 2 diabetes mellitus with hyperglycemia; L97.409 - Non-pressure chronic ulcer of unspecified heel and midfoot with unspecified severity Comment: right plantar heel (2) PAD (peripheral artery disease) Status: Chronic Code(s): I73.9 - Peripheral vascular disease, unspecified (3) Depression Status: Chronic Code(s): F32.9 - Major depressive disorder, single episode, unspecified (4) Diabetes mellitus Status: Chronic Qualifiers: Diabetes mellitus type: type 2 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 dispatcher insulin use: without intermodal dispatcher use Diabetes mellitus complication status: with skin complications Diabetes mellitus complication detail: with foot ulcer Qual ified Code(s): E11.621 - Type 2 diabetes mellitus with foot ulcer; L97.509 - Non-pressure chronic ulcer of other part of unspecified foot with unspecified severity Code(s): E11.9 - Type 2 diabetes mellitus without complications (5) Non-healing open wound of heel Status: Chronic Qualifiers: Encounter type: subsequent encounter Laterality: right Qualified Code(s): S91.301D - Unspecified open wound, right foot, subsequent encounter Code(s): S91.309A - Unspecified open wound, unspecified foot, initial encounter Type of Wound Date of Service: 05/05/20 Chief Complaint: Nonhealing ulcer right heel, Valdez Grade 3 diabetic ulcer. History of Wound: Gibson is here for evaluation of an ulcer of his right heel. He was recently treated for this same area with Theraskin application and was discharged in January 2019. He had noticed increased pain in his heel in March and his noted that the area had opened after his junior analyst had debrided some callus from the area. He has been applying Aquacel and gauze to the ulcer. He does follow with Dr. Navas regularly and had a bypass of his right SFA and popliteal arteries in September 2018. He has had procedures for his arterial disease in past to both of his lower extremities. He has tried alternative treatments with supplements and chelation therapy in the past. He also has diabetes and recent A1C was 7.2% He does wear diabetic shoes. He had been undergoing chelation treatments by Dr. German in [place]. He denies fever, chills, erythema or heavy drainage. He reports significant pain and discomfort of his right heel and his entire right leg which no one can explain. In March 2019, he was hospitalized due to occlusion of his bypass graft in his right leg and Dr. Navas was able to open it 50%. He also has blockages in his left leg. Dr. Navas is unable to revascularize either leg at this time and he may ultimately require limb amputation if his vascular disease worsens. December 11, 2019, he was sent to the emergency room with worsening of his ulcer and cellulitis. Dr. Good performed surgical debridement on December 12, 2019 and he was treated with IV antibiotics for over 4 weeks and was in the transitional care unit at [facility] for Rehab and treatment with wound vac. He was discharged on January 23, 2020 to home with continued wound vac treatment. Progress of Wound: Courtesy visit for Dr. Ruelas is here to follow up for nonhealing ulcer of his right heel. He is tolerating Promogran. He did miss his appointment last week and states that since then he has had worsening pain in the heel. Will repeat x-ray and cultures today. - Physical Exam Vital Signs Temp Pulse Resp BP 97.3 F L 79 18 145/73 H 05/05/20 13:00 05/05/20 13:00 05/05/20 13:00 05/05/20 13:00 General: Alert, Oriented x3, Cooperative, No apparent distress HEENT: Atraumatic Oral: Moist Mucosa Lungs: Clear to auscultation, Normal air movement Cardiovascular: Regular rate Abdomen: Soft, Non Tender Extremities: No clubbing, No cyanosis, Edema - Generalized bilateral lower extremity edema Skin: Ulcer/ Wound - Nonhealing ulcer to right heel, small amount of serous drainage noted, no foul smell, slightly tender on exam and depth approximately 0.5 Wound Measurements and Assessment WC - Nurse 1 - General Ulcer Measurement Start: 04/22/20 12:41 Freq: Status: Active Protocol: Activity Type Activity Date Activity User E-Sign Co-Sign Detail Recorded Client Recorded Date Recorded By Document 05/05/20 13:00 RB [id number] 05/05/20 13:07 RB 05/05/20 13:00 Wound Center Nurse 1 [Ulcer Assessment] #17- R HEEL -Combined with other wound No -Current Size (cm) - Length 1.3 -Current Size (cm) - Width 0.6 -Current Size (cm) - Depth 0.2 -Total Square Cm 0.78 -Tunneling No -Undermining/Tunneling No -Circular Undermining No -Exudate Amt Small -Exudate Type Serosanguineous -Wound Margin Flat & Intact -Granulation Amt Medium (34-66%) -Granulation Quality [place] -Slough/Fibrin Yes -Necrosis Amt Small (1-33%) -Necrotic Tissue Type Adherent Slough -Structure Exposed N/A -Texture (Shahana-wound Skin Appearance) Assessed,Callus -Moisture (Shahana-wound Skin Appearance Assessed ) -Color (Shahana-wound Skin Appearance) Assessed -Temperature (Shahana-wound Skin No Abnormality Appearance) (Pt Warm) -Tenderness on Palpation (Shahana-wound No Skin Appearance) -Ulcer Cleansing Wound Cleanser -Foul Odor after Cleansing No -Anesthetic Used 4% Lidocaine Solution - Nurse 2 - General Ulcer CM Notes Start: 04/22/20 12:41 Freq: Status: Active Protocol: Activity Type Activity Date Activity User E-Sign Co-Sign Detail Recorded Client Recorded Date Recorded By Document 05/05/20 13:16 MW [id number] 05/05/20 13:22 MW 05/05/20 13:16 Wound Center Nurse 2 [Procedure/Treatment] -Time 13:16 -Correct Patient Yes -Correct Side, Site, Position Yes -Correct Procedure Yes -Procedure Performed Yes -Type of Procedure Debridement -Clinical Debridement Subcutaneous -Tissue Removed Subcutaneous -Post Debridement (cm) - Length 0.6 -Post Debridement (cm) - Width 0.5 -Post Debridement (cm) - Depth 0.5 -Total Square (Post) (cm) 0.30 -Area of Debridement (cm) - Length 0.6 -Area of Debridement (cm) - Width 0.5 -Total Square (Area) (cm) 0.30 -Tunneling No -Undermining/Tunneling No -Circular Undermining No -Wound/Ulcer Outcome Not Healed -Ulcer Cleansing Rinsed/ Irrigated with Saline -Foul Odor after Cleansing No -Bioengineered Tissue No -Bleeding Controlled with Pressure -Offloading No -Treatment Response Procedure Tolerated Well -Debridement - Subq, 1st 20sq cm Yes [See Physician Procedure note for Specifics] Pain Scale: 0-10 Numeric [Pain] -Is Patient Pain Free? Yes - Nurse 3 - General Ulcer D/C NN Start: 04/22/20 12:41 Freq: Status: Active Protocol: Activity Type Activity Date Activity User E-Sign Co-Sign Detail Recorded Client Recorded Date Recorded By Document 05/05/20 13:36 KR [id number] 05/05/20 13:38 KR 05/05/20 13:36 Wound Care Nurse 3 [Wound Dressing] #17- R HEEL -Ulcer Cleansing Rinsed/ Irrigated with Saline -Foul Odor after Cleansing No -Negative Pressure Wound Therapy N/A -Primary Dressing Applied NonAdherent Contact Layer, Promogran Rosalba Matter -Primary Dressing Covered/Secured Dry Gauze & with Roll Gauze, Secured with Tape -Promogran Rosal[place] Matter 1 Pain Scale: 0-10 Numeric [Pain] -Is Patient Pain Free? Yes - Visit Discharge [Visit Discharge Information] -Discharge Condition Stable -Ambulatory Status Wheelchair -Transportation Private Auto -Accompanied by Neurological: Neuro grossly intact Psych/Mental Status: Normal Affect, Appropriate, Alert and oriented to time, place, person, mood and affect Debridement Note Post-Debridement Measurements/Treatment - Nurse 2 - General Ulcer CM Notes Start: 04/22/20 12:41 Freq: Status: Active Protocol: Activity Type Activity Date Activity User E-Sign Co-Sign Detail Recorded Client Recorded Date Recorded By Document 04/22/20 13:01 MW [id number] 04/22/20 13:17 MW Document 05/05/20 13:16 MW [id number] 05/05/20 13:22 MW 04/22/20 05/05/20 13:01 13:16 Wound Center Nurse 2 #17- R HEEL -Time 13:02 13:16 -Correct Patient Yes Yes -Correct Side, Site, Position Yes Yes -Correct Procedure Yes Yes -Procedure Performed Yes Yes -Type of Procedure Debridement Debridement -Clinical Debridement Subcutaneous Subcutaneous -Tissue Removed Subcutaneous Subcutaneous -Post Debridement (cm) - Length 0.5 0.6 -Post Debridement (cm) - Width 0.3 0.5 -Post Debridement (cm) - Depth 0.4 0.5 -Total Square (Post) (cm) 0.15 0.30 -Area of Debridement (cm) - Length 0.5 0.6 -Area of Debridement (cm) - Width 0.3 0.5 -Total Square (Area) (cm) 0.15 0.30 -Tunneling No No -Undermining/Tunneling No No -Circular Undermining No No -Wound/Ulcer Outcome Not Healed Not Healed -Ulcer Cleansing Rinsed/ Rinsed/ Irrigated with Irrigated with Saline Saline -Foul Odor after Cleansing No No -Bioengineered Tissue No No -Bleeding Controlled with Pressure Pressure -Offloading No No -Treatment Response Procedure Tolerated Well -Debridement - Subq, 1st 20sq cm Yes Yes Pain Scale: 0-10 Numeric Is Patient Pain Free? Yes Yes - Nurse 3 - General Ulcer D/C NN Start: 04/22/20 12:41 Freq: Status: Active Protocol: Activity Type Activity Date Activity User E-Sign Co-Sign Detail Recorded Client Recorded Date Recorded By Document 04/22/20 13:22 MS [id number] 04/22/20 13:24 MS Document 05/05/20 13:36 KR [id number] 05/05/20 13:38 KR 04/22/20 05/05/20 13:22 13:36 Wound Care Nurse 3 #17- R HEEL -Ulcer Cleansing Rinsed/ Rinsed/ Irrigated with Irrigated with Saline Saline -Foul Odor after Cleansing No No -Negative Pressure Wound Therapy N/A -Primary Dressing Applied Promogran NonAdherent Contact Layer, Promogran Rosal[place] Matter -Primary Dressing Covered/Secured with Dry Gauze & Dry Gauze & Roll Gauze, Roll Gauze, Secured with Secured with Tape Tape -Promogran 1 -Promogran Rosalba Matter 1 Right -Compression Wrap Leopoldo Wrap Vital Signs Blood Pressure (90/60-120/80) 148/78 H Blood Pressure Mean (mm Hg) 101 Source Monitor Position Sitting Blood Pressure Location Right Arm Pain Scale: 0-10 Numeric Is Patient Pain Free? Yes WC - Visit Discharge Discharge Condition Stable Stable Ambulatory Status Ambulatory Wheelchair Transportation Private Auto Accompanied by Medication Reconcilliation completed & No provided to patient/care provider Clinical Summary of Care Provided Yes Wound debrided: Valdez 3 right DFU heel Laterality: Right Type of Debridement: Excisional debridement Anesthesia Used: 5% Lidocaine Gel Depth: in the subcutaneous layer Percentage of wound debrided: 100 Instrument Used: 3mm curette Tissue Removed: Slough and devitalized tissue Severity: Fat Layer Exposed Amount of bleeding with debridement: Mild Bleeding Controlled with: Pressure Patient tolerated procedure well Assessment/Plan Active Problems Type 2 diabetes mellitus with diabetic polyneuropathy (Chronic) Ulcer of right foot with necrosis of bone (Chronic) Open wound of right heel (Chronic) Type 2 diabetes, uncontrolled, with ulcer of heel (Chronic) right plantar heel PAD (peripheral artery disease) (Chronic) Type 2 diabetes, controlled, with ulcer of heel (Chronic) Assessment: 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 Diabetes mellitus - controlled. Peripheral vascular disease - status post revascularization 08/07/18 and 03/2019 Plan: Courtesy visit for Dr. Silva?Gibson's ulcer was evaluated and debrided today with worsening pain after he missed last week's appointment. Will check x-ray and cultures. Will ensure wound care to use moistened rosalba to his right heel and cover with adaptic. Encouraged to call with any increase in pain or drainage, fever or chills. F/U in 1 week. Discussed if any worsening of symptoms he should go to the emergency department. This note was generated with [employer] dictation software. It may contain incorrect words, spelling, and punctuation that were not noted in checking the note before signing. Office Visits / Consults: [id number] OV L3 Est [id number]: [id number] Tasneem subq tissue 20 sq cm/<
--- NOTE | 2020-05-10 15:00 | WC ---
Natividad a PT from [facility] called asking for permission to continue therapy with patient 2/week during the remainder of his certification period. The patient states he's concerned about going down to once a week and would feel stronger if he could continue with 2/week home therapy. Notified Dr Silva and stated she is okay with the resumption of 2/week therapy. Called and left a voicemail for Natividad at [phone].
[2020-05-13 10:56] VITALS: BP 142/74; PULSE 75; RESP 20; TEMP 36.3; BMI 25.8
--- NOTE | 2020-05-13 12:52 | PCM.WC.PN ---
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 Code(s): L97.514 - Non-pressure chronic ulcer of other part of right foot with necrosis of bone (3) Open wound of right heel Status: Chronic Qualifiers: Encounter type: subsequent encounter Code(s): S91.301A - Unspecified open wound, right foot, initial encounter (4) Type 2 diabetes, uncontrolled, with ulcer of heel Status: Chronic Code(s): E11.621 - Type 2 diabetes mellitus with foot ulcer; E11.65 - Type 2 diabetes mellitus with hyperglycemia; L97.409 - Non-pressure chronic ulcer of unspecified heel and midfoot with unspecified severity Comment: right plantar heel (5) PAD (peripheral artery disease) Status: Chronic Code(s): I73.9 - Peripheral vascular disease, unspecified (6) Type 2 diabetes, controlled, with ulcer of heel Status: Chronic Code(s): E11.621 - Type 2 diabetes mellitus with foot ulcer; L97.409 - Non-pressure chronic ulcer of unspecified heel and midfoot with unspecified severity Type of Wound Date of Service: 05/13/20 Chief Complaint: Nonhealing ulcer right heel, Valdez Grade 3 diabetic ulcer. History of Wound: Gibson is here for evaluation of an ulcer of his right heel. He was recently treated for this same area with Theraskin application and was discharged in January 2019. He had noticed increased pain in his heel in March and his noted that the area had opened after his boil off worker had debrided some callus from the area. He has been applying Aquacel and gauze to the ulcer. He does follow with Dr. Navas regularly and had a bypass of his right SFA and popliteal arteries in September 2018. He has had procedures for his arterial disease in past to both of his lower extremities. He has tried alternative treatments with supplements and chelation therapy in the past. He also has diabetes and recent A1C was 7.2% He does wear diabetic shoes. He had been undergoing chelation treatments by Dr. German in [place]. He denies fever, chills, erythema or heavy drainage. He reports significant pain and discomfort of his right heel and his entire right leg which no one can explain. In March 2019, he was hospitalized due to occlusion of his bypass graft in his right leg and Dr. Navas was able to open it 50%. He also has blockages in his left leg. Dr. Navas is unable to revascularize either leg at this time and he may ultimately require limb amputation if his vascular disease worsens. December 11, 2019, he was sent to the emergency room with worsening of his ulcer and cellulitis. Dr. Good performed surgical debridement on December 12, 2019 and he was treated with IV antibiotics for over 4 weeks and was in the transitional care unit at [facility] for Rehab and treatment with wound vac. He was discharged on January 23, 2020 to home with continued wound vac treatment. Progress of Wound: Gibson is here to follow up for nonhealing ulcer of his right heel. He is tolerating Rosalba, He had a wound culture completed last week and it was positive for multiple organisms and yeast. He has noted that since the change to Rosalba, he has had less pain. - Physical Exam Vital Signs Temp Pulse Resp BP 97.4 F L 75 20 H 142/74 H 05/13/20 10:56 05/13/20 10:56 05/13/20 10:56 05/13/20 10:56 General: Alert, Oriented x3, Cooperative, No apparent distress HEENT: Atraumatic, Normocephalic Oral: Moist Mucosa Neck: Supple Extremities: No cyanosis, Diminished Peripheral Pulses, Edema Skin: Ulcer/ Wound Wound Measurements and Assessment WC - Nurse 1 - General Ulcer Measurement Start: 04/22/20 12:41 Freq: Status: Active Protocol: Activity Type Activity Date Activity User E-Sign Co-Sign Detail Recorded Client Recorded Date Recorded By Document 05/13/20 10:56 DL [id number] 05/13/20 11:03 DL 05/13/20 10:56 Wound Center Nurse 1 [Ulcer Assessment] #17- R HEEL -Current Size (cm) - Length 0.1 -Current Size (cm) - Width 0.1 -Current Size (cm) - Depth 0.1 -Total Square Cm 0.01 -Photo Taken No -Exudate Amt None Present -Wound Margin Thickened -Granulation Amt Small (1-33%) -Granulation Quality [place] -Necrosis Amt Small (1-33%) -Necrotic Tissue Type Adherent Slough -Structure Exposed N/A -Texture (Shahana-wound Skin Appearance) Scarring -Moisture (Shahana-wound Skin Appearance Dry/Scaly ) -Color (Shahana-wound Skin Appearance) No Abnormality -Temperature (Shahana-wound Skin No Abnormality Appearance) (Pt Warm) -Tenderness on Palpation (Shahana-wound No Skin Appearance) -Ulcer Cleansing Wound Cleanser -Foul Odor after Cleansing No -Anesthetic Used 4% Lidocaine Solution [Edema Assessment] -Right Calf (cm) 27.2 -Right Ankle (cm) 20.2 WC - Nurse 2 - General Ulcer CM Notes Start: 04/22/20 12:41 Freq: Status: Active Protocol: Activity Type Activity Date Activity User E-Sign Co-Sign Detail Recorded Client Recorded Date Recorded By Document 05/13/20 11:15 PL [id number] 05/13/20 11:27 PL 05/13/20 11:15 Wound Center Nurse 2 [Procedure/Treatment] #17- R HEEL -Time 10:15 -Correct Patient Yes -Correct Side, Site, Position Yes -Correct Procedure Yes -Procedure Performed Yes -Type of Procedure Debridement -Clinical Debridement Subcutaneous -Tissue Removed Subcutaneous -Post Debridement (cm) - Length 0.6 -Post Debridement (cm) - Width 0.5 -Post Debridement (cm) - Depth 0.4 -Total Square (Post) (cm) 0.30 -Area of Debridement (cm) - Length 0.6 -Area of Debridement (cm) - Width 0.5 -Total Square (Area) (cm) 0.30 -Tunneling No -Undermining/Tunneling No -Circular Undermining No -Wound/Ulcer Outcome Not Healed -Ulcer Cleansing Rinsed/ Irrigated with Saline -Foul Odor after Cleansing Yes, Due to Product Use -Bioengineered Tissue No -Debridement - Subq, 1st 20sq cm Yes [See Physician Procedure note for Specifics] Pain Scale: 0-10 Numeric [Pain] -Is Patient Pain Free? Yes Psych/Mental Status: Normal Affect, Appropriate Debridement Note Post-Debridement Measurements/Treatment - Nurse 2 - General Ulcer CM Notes Start: 04/22/20 12:41 Freq: Status: Active Protocol: Activity Type Activity Date Activity User E-Sign Co-Sign Detail Recorded Client Recorded Date Recorded By Document 04/22/20 13:01 MW [id number] 04/22/20 13:17 MW Document 11/19/20 13:16 MW [id number] 05/05/20 13:22 MW Document 05/13/20 11:15 PL [id number] 05/13/20 11:27 PL 04/22/20 05/05/20 05/13/20 13:01 13:16 11:15 Wound Center Nurse 2 #17- R HEEL -Time 13:02 13:16 10:15 -Correct Patient Yes Yes Yes -Correct Side, Site, Position Yes Yes Yes -Correct Procedure Yes Yes Yes -Procedure Performed Yes Yes Yes -Type of Procedure Debridement Debridement Debridement -Clinical Debridement Subcutaneous Subcutaneous Subcutaneous -Tissue Removed Subcutaneous Subcutaneous Subcutaneous -Post Debridement (cm) - Length 0.5 0.6 0.6 -Post Debridement (cm) - Width 0.3 0.5 0.5 -Post Debridement (cm) - Depth 0.4 0.5 0.4 -Total Square (Post) (cm) 0.15 0.30 0.30 -Area of Debridement (cm) - Length 0.5 0.6 0.6 -Area of Debridement (cm) - Width 0.3 0.5 0.5 -Total Square (Area) (cm) 0.15 0.30 0.30 -Tunneling No No No -Undermining/Tunneling No No No -Circular Undermining No No No -Wound/Ulcer Outcome Not Healed Not Healed Not Healed -Ulcer Cleansing Rinsed/ Rinsed/ Rinsed/ Irrigated with Irrigated with Irrigated with Saline Saline Saline -Foul Odor after Cleansing No No Yes, Due to Product Use -Bioengineered Tissue No No No -Bleeding Controlled with Pressure Pressure -Offloading No No -Treatment Response Procedure Tolerated Well -Debridement - Subq, 1st 20sq cm Yes Yes Yes Pain Scale: 0-10 Numeric Is Patient Pain Free? Yes Yes Yes WC - Nurse 3 - General Ulcer D/C NN Start: 04/22/20 12:41 Freq: Status: Active Protocol: Activity Type Activity Date Activity User E-Sign Co-Sign Detail Recorded Client Recorded Date Recorded By Document 04/22/20 13:22 MS [id number] 04/22/20 13:24 MS Document 05/05/20 13:36 KR [id number] 05/05/20 13:38 KR 04/22/20 05/05/20 13:22 13:36 Wound Care Nurse 3 #17- R HEEL -Ulcer Cleansing Rinsed/ Rinsed/ Irrigated with Irrigated with Saline Saline -Foul Odor after Cleansing No No -Negative Pressure Wound Therapy N/A -Primary Dressing Applied Promogran NonAdherent Contact Layer, Promogran Rosalba Matter -Primary Dressing Covered/Secured with Dry Gauze & Dry Gauze & Roll Gauze, Roll Gauze, Secured with Secured with Tape Tape -Promogran 1 -Promogran Rosalba Matter 1 Right -Compression Wrap Leopoldo Wrap Vital Signs Blood Pressure (90/60-120/80) 148/78 H Blood Pressure Mean (mm Hg) 101 Source Monitor Position Sitting Blood Pressure Location Right Arm Pain Scale: 0-10 Numeric Is Patient Pain Free? Yes WC - Visit Discharge Discharge Condition Stable Stable Ambulatory Status Ambulatory Wheelchair Transportation Private Auto Accompanied by Medication Reconcilliation completed & No provided to patient/care provider Clinical Summary of Care Provided Yes Wound debrided: right heel Laterality: Right Type of Debridement: Excisional debridement Anesthesia Used: 4% Lidocaine Solution Depth: Down to and including healthy tissue, in the subcutaneous layer Percentage of wound debrided: 100 Instrument Used: 3mm curette Tissue Removed: Yellow slough, devitalized tissue Severity: Fat Layer Exposed Amount of bleeding with debridement: Mild Bleeding Controlled with: Compression and gauze Patient tolerated procedure well Assessment/Plan Active Problems Type 2 diabetes mellitus with diabetic polyneuropathy (Chronic) Ulcer of right foot with necrosis of bone (Chronic) Open wound of right heel (Chronic) Diabetes mellitus (Chronic) Depression (Chronic) Type 2 diabetes, uncontrolled, with ulcer of heel (Chronic) right plantar heel PAD (peripheral artery disease) (Chronic) Type 2 diabetes, controlled, with ulcer of heel (Chronic) Non-healing open wound of heel (Chronic) Assessment: 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 Diabetes mellitus - controlled. Peripheral vascular disease - status post revascularization 08/07/18 and 03/2019 Plan: Gibson's ulcer was evaluated and debrided today with mild improvement. His wound culture results were reviewed and he was started on Augmentin, moxifloxacin and fluconazole. Will continue wound care of moistened rosalba to his right heel and cover with adaptic. Encouraged to call with any increase in pain or drainage, fever or chills. F/U in 1 week. Discussed if any worsening of symptoms he should go to the emergency department. This note was generated with GameTubeation software. It may contain incorrect words, spelling, and punctuation that were not noted in checking the note before signing.
== END 2020-05-16 23:59 ==
LOC: WC 11:00
PROVIDERS: Family Provider Family Medicine; PCP Family Medicine; Referring Provider Family Medicine; Visit Provider Family Medicine
DX: E11.621 Type 2 diabetes mellitus with foot ulcer (principal); E11.51 Type 2 diabetes mellitus with diabetic peripheral angiopathy without gangrene; L97.412 Non-pressure chronic ulcer of right heel and midfoot with fat layer exposed; E11.42 Type 2 diabetes mellitus with diabetic polyneuropathy
CPT/HCPCS: 11042; 87070; 87075; 87077; 87186; 87205

== ENCOUNTER 2020-06-03 11:00 | Outpatient (RCR) | payer MEDICARE, OTHER, SELFPAY ==
[2020-05-17 00:14] VITALS: BP 142/74; PULSE 75; RESP 20; TEMP 36.3
[2020-05-20 11:29] VITALS: BP 127/85; PULSE 87; RESP 18; TEMP 36.6; BMI 25.8
[2020-05-20 12:26] VITALS: BP 128/85
--- NOTE | 2020-05-20 13:56 | PCM.WC.PN ---
(1) Cellulitis of foot, right Status: Chronic Code(s): L03.115 - Cellulitis of right lower limb (2) Type 2 diabetes mellitus with diabetic polyneuropathy Status: Chronic Qualifiers: Code(s): E11.42 - Type 2 diabetes mellitus with diabetic polyneuropathy (3) Open wound of right heel Status: Chronic Qualifiers: Code(s): S91.301A - Unspecified open wound, right foot, initial encounter (4) Peripheral arterial occlusive disease Status: Chronic Code(s): I77.9 - Disorder of arteries and arterioles, unspecified (5) Diabetes mellitus Status: Chronic Qualifiers: Diabetes mellitus type: type 2 Diabetes mellitus shelter insulin use: without terminal gauger use Diabetes mellitus complication status: with skin complications Diabetes mellitus complication detail: with foot ulcer Qualified Code(s): E11.621 - Type 2 diabetes mellitus with foot ulcer; L97.509 - Non-pressure chronic ulcer of other part of unspecified foot with unspecified severity Code(s): E11.9 - Type 2 diabetes mellitus without complications (6) Type 2 diabetes, uncontrolled, with ulcer of heel Status: Chronic Code(s): E11.621 - Type 2 diabetes mellitus with foot ulcer; E11.65 - Type 2 diabetes mellitus with hyperglycemia; L97.409 - Non-pressure chronic ulcer of unspecified heel and midfoot with unspecified severity Comment: right plantar heel (7) PAD (peripheral artery disease) Status: Chronic Code(s): I73.9 - Peripheral vascular disease, unspecified (8) Type 2 diabetes, controlled, with ulcer of heel Status: Chronic Code(s): E11.621 - Type 2 diabetes mellitus with foot ulcer; L97.409 - Non-pressure chronic ulcer of unspecified heel and midfoot with unspecified severity Type of Wound Date of Service: 05/20/20 Chief Complaint: Nonhealing ulcer right heel, Valdez Grade 3 diabetic ulcer. History of Wound: Gibson is here for evaluation of an ulcer of his right heel. He was recently treated for this same area with Theraskin application and was discharged in January 2019. He had noticed increased pain in his heel in March and his noted that the area had opened after his operations accountant had debrided some callus from the area. He has been applying Aquacel and gauze to the ulcer. He does follow with Dr. Navas regularly and had a bypass of his right SFA and popliteal arteries in September 2018. He has had procedures for his arterial disease in past to both of his lower extremities. He has tried alternative treatments with supplements and chelation therapy in the past. He also has diabetes and recent A1C was 7.2% He does wear diabetic shoes. He had been undergoing chelation treatments by Dr. German in [place]. He denies fever, chills, erythema or heavy drainage. He reports significant pain and discomfort of his right heel and his entire right leg which no one can explain. In March 2019, he was hospitalized due to occlusion of his bypass graft in his right leg and Dr. Navas was able to open it 50%. He also has blockages in his left leg. Dr. Navas is unable to revascularize either leg at this time and he may ultimately require limb amputation if his vascular disease worsens. December 11, 2019, he was sent to the emergency room with worsening of his ulcer and cellulitis. Dr. Good performed surgical debridement on December 12, 2019 and he was treated with IV antibiotics for over 4 weeks and was in the transitional care unit at [facility] for Rehab and treatment with wound vac. He was discharged on January 23, 2020 to home with continued wound vac treatment. Progress of Wound: Gibson is here to follow up for nonhealing ulcer of his right heel. He is tolerating Rosalba, he is doing well and having less pain. Some improvement in his ulcer. Denies increased drainage, warmth, erythema or odor. - Physical Exam Vital Signs Temp Pulse Resp BP 97.8 F 87 18 128/85 H 05/20/20 11:29 05/20/20 11:29 05/20/20 11:29 05/20/20 12:26 General: Alert, Oriented x3, Cooperative, No apparent distress HEENT: Atraumatic, Normocephalic Oral: Moist Mucosa Extremities: No cyanosis, Cool, Diminished Peripheral Pulses, Edema Skin: Ulcer/ Wound Wound Measurements and Assessment - Nurse 1 - General Ulcer Measurement Start: 05/20/20 11:29 Freq: Status: Active Protocol: Activity Type Activity Date Activity User E-Sign Co-Sign Detail Recorded Client Recorded Date Recorded By Document 05/20/20 11:29 [facility] [id number] 05/20/20 11:35 [facility] 05/20/20 11:29 Wound Center Nurse 1 [Ulcer Assessment] #17- R HEEL -Combined with other wound No -Current Size (cm) - Length 0.8 -Current Size (cm) - Width 0.6 -Current Size (cm) - Depth 0.3 -Total Square Cm 0.48 -Tunneling No -Undermining/Tunneling No -Circular Undermining No -Exudate Amt Small -Exudate Type Serosanguineous -Wound Margin Distinct, Outline Attached -Granulation Amt Small (1-33%) -Granulation Quality [place] -Slough/Fibrin Yes -Necrosis Amt Large (67-100%) -Necrotic Tissue Type Adherent Slough -Structure Exposed N/A -Texture (Shahana-wound Skin Appearance) Assessed -Moisture (Shahana-wound Skin Appearance Assessed ) -Color (Shahana-wound Skin Appearance) Assessed -Temperature (Shahana-wound Skin No Abnormality Appearance) (Pt Warm) -Tenderness on Palpation (Shahana-wound No Skin Appearance) -Ulcer Cleansing Rinsed/ Irrigated with Saline -Foul Odor after Cleansing No -Anesthetic Used 4% Lidocaine Solution WC - Nurse 2 - General Ulcer CM Notes Start: 05/20/20 11:29 Freq: Status: Active Protocol: Activity Type Activity Date Activity User E-Sign Co-Sign Detail Recorded Client Recorded Date Recorded By Document 05/20/20 11:42 MW [id number] 05/20/20 12:04 MW 05/20/20 11:42 Wound Center Nurse 2 [Procedure/Treatment] -Time 11:47 -Correct Patient Yes -Correct Side, Site, Position Yes -Correct Procedure Yes -Procedure Performed Yes -Type of Procedure Debridement -Clinical Debridement Subcutaneous -Tissue Removed Subcutaneous -Post Debridement (cm) - Length 0.4 -Post Debridement (cm) - Width 0.2 -Post Debridement (cm) - Depth 0.3 -Total Square (Post) (cm) 0.08 -Area of Debridement (cm) - Length 0.4 -Area of Debridement (cm) - Width 0.2 -Total Square (Area) (cm) 0.08 -Tunneling No -Undermining/Tunneling No -Circular Undermining No -Wound/Ulcer Outcome Not Healed -Ulcer Cleansing Rinsed/ Irrigated with Saline -Foul Odor after Cleansing No -Bioengineered Tissue No -Bleeding Controlled with Pressure -Offloading No -Debridement - Subq, 1st 20sq cm Yes [See Physician Procedure note for Specifics] Pain Scale: 0-10 Numeric [Pain] -Is Patient Pain Free? Yes - Nurse 3 - General Ulcer D/C NN Start: 05/20/20 11:29 Freq: Status: Active Protocol: Activity Type Activity Date Activity User E-Sign Co-Sign Detail Recorded Client Recorded Date Recorded By Document 05/20/20 12:26 RB [id number] 05/20/20 12:27 RB 05/20/20 12:26 Wound Care Nurse 3 [Wound Dressing] #17- R HEEL -Ulcer Cleansing Rinsed/ Irrigated with Saline -Primary Dressing Applied NonAdherent Contact Layer, Promogran Rosalba Matter -Other Dressing nurses hat -Primary Dressing Covered/Secured Dry Gauze,Dry with Gauze & Roll Gauze,Secured with Tape -Promogran Rosalba Matter 1 [Compression Applied] Right -Other [place]O Left -Other [place] Vital Signs [Blood Pressure] -Blood Pressure (90/60-120/80) 128/85 H -Blood Pressure Mean (mm Hg) 99 -Source Monitor -Position Semi-Fowlers -Blood Pressure Location Left Arm WC - Visit Discharge [Visit Discharge Information] -Discharge Condition Stable -Ambulatory Status Wheelchair -Transportation Private Auto -Medication Reconcilliation completed No & provided to patient/care provider -Clinical Summary of Care Provided Yes Psych/Mental Status: Normal Affect, Appropriate Debridement Note Post-Debridement Measurements/Treatment - Nurse 2 - General Ulcer CM Notes Start: 05/20/20 11:29 Freq: Status: Active Protocol: Activity Type Activity Date Activity User E-Sign Co-Sign Detail Recorded Client Recorded Date Recorded By Document 05/20/20 11:42 MW [id number] 05/20/20 12:04 MW 05/20/20 11:42 Wound Center Nurse 2 #17- R HEEL -Time 11:47 -Correct Patient Yes -Correct Side, Site, Position Yes -Correct Procedure Yes -Procedure Performed Yes -Type of Procedure Debridement -Clinical Debridement Subcutaneous -Tissue Removed Subcutaneous -Post Debridement (cm) - Length 0.4 -Post Debridement (cm) - Width 0.2 -Post Debridement (cm) - Depth 0.3 -Total Square (Post) (cm) 0.08 -Area of Debridement (cm) - Length 0.4 -Area of Debridement (cm) - Width 0.2 -Total Square (Area) (cm) 0.08 -Tunneling No -Undermining/Tunneling No -Circular Undermining No -Wound/Ulcer Outcome Not Healed -Ulcer Cleansing Rinsed/ Irrigated with Saline -Foul Odor after Cleansing No -Bioengineered Tissue No -Bleeding Controlled with Pressure -Offloading No -Debridement - Subq, 1st 20sq cm Yes Pain Scale: 0-10 Numeric Is Patient Pain Free? Yes WC - Nurse 3 - General Ulcer D/C NN Start: 05/20/20 11:29 Freq: Status: Active Protocol: Activity Type Activity Date Activity User E-Sign Co-Sign Detail Recorded Client Recorded Date Recorded By Document 05/20/20 12:26 RB [id number] 05/20/20 12:27 RB 05/20/20 12:26 Wound Care Nurse 3 #17- R HEEL -Ulcer Cleansing Rinsed/ Irrigated with Saline -Primary Dressing Applied NonAdherent Contact Layer, Promogran Rosalba Matter -Other Dressing nurses hat -Primary Dressing Covered/Secured with Dry Gauze,Dry Gauze & Roll Gauze,Secured with Tape -Promogran Rosalba Matter 1 Right -Other DOMINGO Left -Other [place] Vital Signs Blood Pressure (90/60-120/80) 128/85 H Blood Pressure Mean (mm Hg) 99 Source Monitor Position Semi-Fowlers Blood Pressure Location Left Arm WC - Visit Discharge Discharge Condition Stable Ambulatory Status Wheelchair Transportation Private Auto Medication Reconcilliation completed & No provided to patient/care provider Clinical Summary of Care Provided Yes Wound debrided: right heel Laterality: Right Wound Grade/Stage: Grade 3 Type of Debridement: Excisional debridement Anesthesia Used: 4% Lidocaine Solution, 5% Lidocaine Gel Depth: Down to and including healthy tissue, in the subcutaneous layer, to muscle Percentage of wound debrided: 100 Instrument Used: 3mm curette Tissue Removed: Yellow slough, devitalized tissue Severity: Fat Layer Exposed Amount of bleeding with debridement: Mild Bleeding Controlled with: Compression and gauze Patient tolerated procedure well Assessment/Plan Assessment: 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 Diabetes mellitus - controlled. Peripheral vascular disease - status post revascularization 08/07/18 and 03/2019 Plan: Nicol ulcer was evaluated and debrided today with mild improvement. He is tolerating antibiotic treatment. Will continue wound care of moistened rosalba to his right heel but discontinue adaptic. Consider change to hydrogel or Medihoney if macerated. Encouraged to call with any increase in pain or drainage, fever or chills. F/U in 1 week. Discussed if any worsening of symptoms he should go to the emergency department. This note was generated with ZEB dictation software. It may contain incorrect words, spelling, and punctuation that were not noted in checking the note before signing.
[2020-05-27 08:54] VITALS: BP 168/87; PULSE 78; RESP 16; TEMP 36.4; BMI 25.8
[2020-05-27 10:04] VITALS: BP 150/82
--- NOTE | 2020-05-27 13:56 | PCM.WC.PN ---
(1) Cellulitis of foot, right Status: Chronic Code(s): L03.115 - Cellulitis of right lower limb (2) Type 2 diabetes mellitus with diabetic polyneuropathy Status: Chronic Qualifiers: Code(s): E11.42 - Type 2 diabetes mellitus with diabetic polyneuropathy (3) Open wound of right heel Status: Chronic Qualifiers: Encounter type: subsequent encounter Code(s): S91.301A - Unspecified open wound, right foot, initial encounter (4) Peripheral arterial occlusive disease Status: Chronic Code(s): I77.9 - Disorder of arteries and arterioles, unspecified (5) Diabetes mellitus Status: Chronic Qualifiers: Diabetes mellitus type: type 2 Diabetes mellitus fpc insulin use: without wood floor layer use Diabetes mellitus complication status: with skin complications Diabetes mellitus complication detail: with foot ulcer Qualified Code(s): E11.621 - Type 2 diabetes mellitus with foot ulcer; L97.509 - Non-pressure chronic ulcer of other part of unspecified foot with unspecified severity Code(s): E11.9 - Type 2 diabetes mellitus without complications (6) Type 2 diabetes, uncontrolled, with ulcer of heel Status: Chronic Code(s): E11.621 - Type 2 diabetes mellitus with foot ulcer; E11.65 - Type 2 diabetes mellitus with hyperglycemia; L97.409 - Non-pressure chronic ulcer of unspecified heel and midfoot with unspecified severity Comment: right plantar heel (7) PAD (peripheral artery disease) Status: Chronic Code(s): I73.9 - Peripheral vascular disease, unspecified (8) Type 2 diabetes, controlled, with ulcer of heel Status: Chronic Code(s): E11.621 - Type 2 diabetes mellitus with foot ulcer; L97.409 - Non-pressure chronic ulcer of unspecified heel and midfoot with unspecified severity Type of Wound Date of Service: 05/27/20 Chief Complaint: Nonhealing ulcer right heel, Valdez Grade 3 diabetic ulcer. History of Wound: Gibson is here for evaluation of an ulcer of his right heel. He was recently treated for this same area with [place]in application and was discharged in January 2019. 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 He has been applying Aquacel and gauze to the ulcer. He does follow with Dr. Navas regularly and had a bypass of his right SFA and popliteal arteries in September 2018. He has had procedures for his arterial disease in past to both of his lower extremities. He has tried alternative treatments with supplements and chelation therapy in the past. He also has diabetes and recent A1C was 7.2% He does wear diabetic shoes. He had been undergoing chelation treatments by Dr. German in [place]. He denies fever, chills, erythema or heavy drainage. He reports significant pain and discomfort of his right heel and his entire right leg which no one can explain. In March 2019, he was hospitalized due to occlusion of his bypass graft in his right leg and Dr. Navas was able to open it 50%. He also has blockages in his left leg. Dr. Navas is unable to revascularize either leg at this time and he may ultimately require limb amputation if his vascular disease worsens. December 11, 2019, he was sent to the emergency room with worsening of his ulcer and cellulitis. Dr. Good performed surgical debridement on December 12, 2019 and he was treated with IV antibiotics for over 4 weeks and was in the transitional care unit at [facility] for Rehab and treatment with wound vac. He was discharged on January 23, 2020 to home with continued wound vac treatment. Progress of Wound: Gibson is here to follow up for nonhealing ulcer of his right heel. He is tolerating Verenice, he is doing well and having less pain. No improvement in his ulcer. Denies increased drainage, warmth, erythema or odor. - Physical Exam Vital Signs Temp Pulse Resp BP 97.6 F L 78 16 150/82 H 05/27/20 08:54 05/27/20 08:54 05/27/20 08:54 05/27/20 10:04 General: Alert, Oriented x3, Cooperative, No apparent distress HEENT: Atraumatic, Normocephalic Oral: Moist Mucosa Lungs: Clear to auscultation Cardiovascular: Regular rate, Regular Rhythm Abdomen: Soft, Non Tender, Obese Extremities: Edema Skin: Ulcer/ Wound Wound Measurements and Assessment - Nurse 1 - General Ulcer Measurement Start: 05/20/20 11:29 Freq: Status: Active Protocol: Activity Type Activity Date Activity User E-Sign Co-Sign Detail Recorded Client Recorded Date Recorded By Document 05/27/20 08:54 [facility] [id number] 05/27/20 09:07 BMF 05/27/20 08:54 Wound Center Nurse 1 [Ulcer Assessment] #17- R HEEL -Combined with other wound No -Current Size (cm) - Length 0.5 -Current Size (cm) - Width 0.5 -Current Size (cm) - Depth 0.3 -Total Square Cm 0.25 -Tunneling No -Undermining/Tunneling No -Circular Undermining No -Exudate Amt Small -Exudate Type Serosanguineous -Wound Margin Thickened -Granulation Amt Medium (34-66%) -Granulation Quality [place] -Slough/Fibrin Yes -Necrosis Amt Small (1-33%) -Necrotic Tissue Type Adherent Slough -Structure Exposed N/A -Texture (Shahana-wound Skin Appearance) Assessed,Callus -Moisture (Shahana-wound Skin Appearance Assessed ) -Color (Shahana-wound Skin Appearance) Assessed -Temperature (Shahana-wound Skin No Abnormality Appearance) (Pt Warm) -Tenderness on Palpation (Shahana-wound No Skin Appearance) -Ulcer Cleansing Wound Cleanser -Foul Odor after Cleansing No -Anesthetic Used 4% Lidocaine Solution WC - Nurse 2 - General Ulcer CM Notes Start: 05/20/20 11:29 Freq: Status: Active Protocol: Activity Type Activity Date Activity User E-Sign Co-Sign Detail Recorded Client Recorded Date Recorded By Document 05/27/20 09:22 MW [id number] 05/27/20 09:38 MW 05/27/20 09:22 Wound Center Nurse 2 [Procedure/Treatment] -Time 09:23 -Correct Patient Yes -Correct Side, Site, Position Yes -Correct Procedure Yes -Procedure Performed Yes -Type of Procedure Debridement -Clinical Debridement Subcutaneous -Tissue Removed Subcutaneous -Post Debridement (cm) - Length 0.4 -Post Debridement (cm) - Width 0.2 -Post Debridement (cm) - Depth 0.3 -Total Square (Post) (cm) 0.08 -Area of Debridement (cm) - Length 0.4 -Area of Debridement (cm) - Width 0.2 -Total Square (Area) (cm) 0.08 -Tunneling No -Undermining/Tunneling No -Circular Undermining No -Wound/Ulcer Outcome Not Healed -Ulcer Cleansing Rinsed/ Irrigated with Saline -Foul Odor after Cleansing No -Bioengineered Tissue No -Bleeding Controlled with Pressure -Offloading No -Treatment Response Procedure Tolerated Well -Debridement - Subq, 1st 20sq cm Yes [See Physician Procedure note for Specifics] Pain Scale: 0-10 Numeric [Pain] -Is Patient Pain Free? Yes - Nurse 3 - General Ulcer D/C NN Start: 05/20/20 11:29 Freq: Status: Active Protocol: Activity Type Activity Date Activity User E-Sign Co-Sign Detail Recorded Client Recorded Date Recorded By Document 05/27/20 10:04 RB [id number] 05/27/20 10:05 RB 05/27/20 10:04 Wound Care Nurse 3 [Wound Dressing] #17- R HEEL -Ulcer Cleansing Rinsed/ Irrigated with Saline -Primary Dressing Applied C Hydrogel ($), NonAdherent Contact Layer -Other Dressing ABD NURSES HAT -Primary Dressing Covered/Secured Dry Gauze,Dry with Gauze & Roll Gauze,Secured with Tape Vital Signs [Blood Pressure] -Blood Pressure (90/60-120/80) 150/82 H -Blood Pressure Mean (mm Hg) 104 -Source Monitor -Position Sitting -Blood Pressure Location Left Arm Pain Scale: 0-10 Numeric [Pain] -Is Patient Pain Free? Yes - Visit Discharge [Visit Discharge Information] -Discharge Condition Stable -Ambulatory Status Cane,Wheelchair -Transportation Private Auto -Medication Reconcilliation completed No & provided to patient/care provider -Clinical Summary of Care Provided Yes Psych/Mental Status: Normal Affect, Appropriate Debridement Note Post-Debridement Measurements/Treatment - Nurse 2 - General Ulcer CM Notes Start: 05/20/20 11:29 Freq: Status: Active Protocol: Activity Type Activity Date Activity User E-Sign Co-Sign Detail Recorded Client Recorded Date Recorded By Document 05/20/20 11:42 MW [id number] 05/20/20 12:04 MW Document 05/27/20 09:22 MW [id number] 05/27/20 09:38 MW 05/20/20 05/27/20 11:42 09:22 Wound Center Nurse 2 #17- R HEEL -Time 11:47 09:23 -Correct Patient Yes Yes -Correct Side, Site, Position Yes Yes -Correct Procedure Yes Yes -Procedure Performed Yes Yes -Type of Procedure Debridement Debridement -Clinical Debridement Subcutaneous Subcutaneous -Tissue Removed Subcutaneous Subcutaneous -Post Debridement (cm) - Length 0.4 0.4 -Post Debridement (cm) - Width 0.2 0.2 -Post Debridement (cm) - Depth 0.3 0.3 -Total Square (Post) (cm) 0.08 0.08 -Area of Debridement (cm) - Length 0.4 0.4 -Area of Debridement (cm) - Width 0.2 0.2 -Total Square (Area) (cm) 0.08 0.08 -Tunneling No No -Undermining/Tunneling No No -Circular Undermining No No -Wound/Ulcer Outcome Not Healed Not Healed -Ulcer Cleansing Rinsed/ Rinsed/ Irrigated with Irrigated with Saline Saline -Foul Odor after Cleansing No No -Bioengineered Tissue No No -Bleeding Controlled with Pressure Pressure -Offloading No No -Treatment Response Procedure Tolerated Well -Debridement - Subq, 1st 20sq cm Yes Yes Pain Scale: 0-10 Numeric Is Patient Pain Free? Yes Yes - Nurse 3 - General Ulcer D/C NN Start: 05/20/20 11:29 Freq: Status: Active Protocol: Activity Type Activity Date Activity User E-Sign Co-Sign Detail Recorded Client Recorded Date Recorded By Document 05/20/20 12:26 RB [id number] 05/20/20 12:27 RB Document 05/27/20 10:04 RB [id number] 05/27/20 10:05 RB 05/20/20 05/27/20 12:26 10:04 Wound Care Nurse 3 #17- R HEEL -Ulcer Cleansing Rinsed/ Rinsed/ Irrigated with Irrigated with Saline Saline -Primary Dressing Applied NonAdherent C Hydrogel ($), Contact Layer, NonAdherent Promogran Contact Layer Verenice Matter -Other Dressing nurses hat ABD NURSES HAT -Primary Dressing Covered/Secured with Dry Gauze,Dry Dry Gauze,Dry Gauze & Roll Gauze & Roll Gauze,Secured Gauze,Secured with Tape with Tape -Promogran Verenice Matter 1 Right -Other [place] Left -Other [place] Vital Signs Blood Pressure (90/60-120/80) 128/85 H 150/82 H Blood Pressure Mean (mm Hg) 99 104 Source Monitor Monitor Position Semi-Fowlers Sitting Blood Pressure Location Left Arm Left Arm Pain Scale: 0-10 Numeric Is Patient Pain Free? Yes WC - Visit Discharge Discharge Condition Stable Stable Ambulatory Status Wheelchair Cane,Wheelchair Transportation Private Auto Private Auto Medication Reconcilliation completed & No No provided to patient/care provider Clinical Summary of Care Provided Yes Yes Wound debrided: right heel Laterality: Right Wound Grade/Stage: Valdez grade 3 Type of Debridement: Excisional debridement Anesthesia Used: 4% Lidocaine Solution Depth: Down to and including healthy tissue, in the subcutaneous layer Percentage of wound debrided: 100 Instrument Used: 3mm curette Tissue Removed: Yellow slough, devitalized tissue Severity: Fat Layer Exposed Amount of bleeding with debridement: Mild Bleeding Controlled with: Compression and gauze Patient tolerated procedure well Assessment/Plan Active Problems Cellulitis of foot, right (Chronic) Type 2 diabetes mellitus with diabetic polyneuropathy (Chronic) Open wound of right heel (Chronic) Peripheral arterial occlusive disease (Chronic) Diabetes mellitus (Chronic) Type 2 diabetes, uncontrolled, with ulcer of heel (Chronic) right plantar heel PAD (peripheral artery disease) (Chronic) Type 2 diabetes, controlled, with ulcer of heel (Chronic) Assessment: 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 Diabetes mellitus - controlled. Peripheral vascular disease - status post revascularization 08/07/18 and 03/2019 Plan: Demetriuss ulcer was evaluated and debrided today with mild improvement. He is tolerating antibiotic treatment. Will change to hydrogel and adaptic changed every other day. Wound culture taken and will treat based on results. Encouraged to call with any increase in pain or drainage, fever or chills. F/U in 1 week. Discussed if any worsening of symptoms he should go to the emergency department. This note was generated with [employer] software. It may contain incorrect words, spelling, and punctuation that were not noted in checking the note before signing.
[2020-06-03 11:26] VITALS: BP 149/76; PULSE 81; RESP 16; TEMP 36.3; BMI 25.8
--- NOTE | 2020-06-03 14:15 | PCM.WC.PN ---
(1) Cellulitis of foot, right Status: Chronic Code(s): L03.115 - Cellulitis of right lower limb (2) Type 2 diabetes mellitus with diabetic polyneuropathy Status: Chronic Qualifiers: Code(s): E11.42 - Type 2 diabetes mellitus with diabetic polyneuropathy (3) Open wound of right heel Status: Chronic Qualifiers: Encounter type: subsequent encounter Code(s): S91.301A - Unspecified open wound, right foot, initial encounter (4) Peripheral arterial occlusive disease Status: Chronic Code(s): I77.9 - Disorder of arteries and arterioles, unspecified (5) Diabetes mellitus Status: Chronic Qualifiers: Diabetes mellitus type: type 2 Diabetes mellitus senior care insulin use: 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 Diabetes mellitus complication status: with skin complications Diabetes mellitus complication detail: with foot ulcer Qualified Code(s): E11.621 - Type 2 diabetes mellitus with foot ulcer; L97.509 - Non-pressure chronic ulcer of other part of unspecified foot with unspecified severity Code(s): E11.9 - Type 2 diabetes mellitus without complications (6) Type 2 diabetes, uncontrolled, with ulcer of heel Status: Chronic Code(s): E11.621 - Type 2 diabetes mellitus with foot ulcer; E11.65 - Type 2 diabetes mellitus with hyperglycemia; L97.409 - Non-pressure chronic ulcer of unspecified heel and midfoot with unspecified severity Comment: right plantar heel (7) PAD (peripheral artery disease) Status: Chronic Code(s): I73.9 - Peripheral vascular disease, unspecified (8) Type 2 diabetes, controlled, with ulcer of heel Status: Chronic Code(s): E11.621 - Type 2 diabetes mellitus with foot ulcer; L97.409 - Non-pressure chronic ulcer of unspecified heel and midfoot with unspecified severity Type of Wound Date of Service: 06/03/20 Chief Complaint: Nonhealing ulcer right heel, Valdez Grade 3 diabetic ulcer. History of Wound: Gibson is here for evaluation of an ulcer of his right heel. He was recently treated for this same area with Theraskin application and was discharged in January 2019. He had noticed increased pain in his heel in March and his noted that the area had opened after his die keeper had debrided some callus from the area. He has been applying Aquacel and gauze to the ulcer. He does follow with Dr. Navas regularly and had a bypass of his right SFA and popliteal arteries in September 2018. He has had procedures for his arterial disease in past to both of his lower extremities. He has tried alternative treatments with supplements and chelation therapy in the past. He also has diabetes and recent A1C was 7.2% He does wear diabetic shoes. He had been undergoing chelation treatments by Dr. German in [place]. He denies fever, chills, erythema or heavy drainage. He reports significant pain and discomfort of his right heel and his entire right leg which no one can explain. In March 2019, he was hospitalized due to occlusion of his bypass graft in his right leg and Dr. Navas was able to open it 50%. He also has blockages in his left leg. Dr. Navas is unable to revascularize either leg at this time and he may ultimately require limb amputation if his vascular disease worsens. December 11, 2019, he was sent to the emergency room with worsening of his ulcer and cellulitis. Dr. Good performed surgical debridement on December 12, 2019 and he was treated with IV antibiotics for over 4 weeks and was in the transitional care unit at [facility] for Rehab and treatment with wound vac. He was discharged on January 23, 2020 to home with continued wound vac treatment. Progress of Wound: Gibson is here to follow up for nonhealing ulcer of his right heel. He is tolerating collagen hydrogel, he is doing well and having less pain. Minimal improvement in his ulcer. Wound culture was positive for VRE - he was started on Linezolid. Denies increased drainage, warmth, erythema or odor. - Physical Exam Vital Signs Temp Pulse Resp BP 97.4 F L 81 16 149/76 H 06/03/20 11:26 06/03/20 11:26 06/03/20 11:26 06/03/20 11:26 General: Alert, Oriented x3, Cooperative, No apparent distress HEENT: Atraumatic, Normocephalic Oral: Moist Mucosa Extremities: Edema Skin: Ulcer/ Wound Wound Measurements and Assessment - Nurse 1 - General Ulcer Measurement Start: 05/20/20 11:29 Freq: Status: Active Protocol: Activity Type Activity Date Activity User E-Sign Co-Sign Detail Recorded Client Recorded Date Recorded By Document 06/03/20 11:26 [facility] [id number] 12/18/20 11:37 BMF 06/03/20 11:26 Wound Center Nurse 1 [Ulcer Assessment] #17- R HEEL -Combined with other wound No -Current Size (cm) - Length 1 -Current Size (cm) - Width 0.5 -Current Size (cm) - Depth 0.3 -Total Square Cm 0.5 -Tunneling No -Undermining/Tunneling No -Circular Undermining No -Exudate Amt Small -Exudate Type Serosanguineous -Wound Margin Flat & Intact -Granulation Amt Medium (34-66%) -Granulation Quality [place] -Necrosis Amt Small (1-33%) -Necrotic Tissue Type Adherent Slough -Structure Exposed N/A -Texture (Shahana-wound Skin Appearance) Assessed -Moisture (Shahana-wound Skin Appearance Assessed ) -Color (Shahana-wound Skin Appearance) Assessed -Temperature (Shahana-wound Skin No Abnormality Appearance) (Pt Warm) -Tenderness on Palpation (Shahana-wound No Skin Appearance) -Ulcer Cleansing Wound Cleanser -Foul Odor after Cleansing No -Anesthetic Used 5% Lidocaine Gel WC - Nurse 2 - General Ulcer CM Notes Start: 05/20/20 11:29 Freq: Status: Active Protocol: Activity Type Activity Date Activity User E-Sign Co-Sign Detail Recorded Client Recorded Date Recorded By Document 06/03/20 12:26 MW [id number] 06/03/20 12:35 MW 06/03/20 12:26 Wound Center Nurse 2 [Procedure/Treatment] -Time 12:31 -Correct Patient Yes -Correct Side, Site, Position Yes -Correct Procedure Yes -Procedure Performed Yes -Type of Procedure Debridement -Clinical Debridement Subcutaneous -Tissue Removed Subcutaneous -Post Debridement (cm) - Length 0.4 -Post Debridement (cm) - Width 0.2 -Post Debridement (cm) - Depth 0.3 -Total Square (Post) (cm) 0.08 -Area of Debridement (cm) - Length 0.4 -Area of Debridement (cm) - Width 0.2 -Total Square (Area) (cm) 0.08 -Tunneling No -Undermining/Tunneling No -Circular Undermining No -Wound/Ulcer Outcome Not Healed -Ulcer Cleansing Rinsed/ Irrigated with Saline -Foul Odor after Cleansing No -Bioengineered Tissue No -Bleeding Controlled with Pressure -Offloading No -Treatment Response Procedure Tolerated Well -Debridement - Subq, 1st 20sq cm Yes [See Physician Procedure note for Specifics] - Nurse 3 - General Ulcer D/C NN Start: 05/20/20 11:29 Freq: Status: Active Protocol: Activity Type Activity Date Activity User E-Sign Co-Sign Detail Recorded Client Recorded Date Recorded By Document 06/03/20 12:57 [facility] [id number] 06/03/20 12:57 [facility] 06/03/20 12:57 Wound Care Nurse 3 [Wound Dressing] #17- R HEEL -Ulcer Cleansing Rinsed/ Irrigated with Saline -Foul Odor after Cleansing No -Primary Dressing Applied NonAdherent Contact Layer, Other -Other Dressing hydrogel -Primary Dressing Covered/Secured Dry Gauze & with Roll Gauze, Secured with Tape,Other -Other Covering heel hat [Compression Applied] Right -Compression Wrap Leopoldo Wrap [Post Procedure Tolerated] -Treatment Response Procedure Tolerated Well Pain Scale: 0-10 Numeric [Pain] -Is Patient Pain Free? Yes - Visit Discharge [Visit Discharge Information] -Discharge Condition Stable -Ambulatory Status Wheelchair -Transportation Private Auto -Accompanied by [Facility Notification] -Facility Type Home Health Psych/Mental Status: Normal Affect, Appropriate Debridement Note Post-Debridement Measurements/Treatment - Nurse 2 - General Ulcer CM Notes Start: 05/20/20 11:29 Freq: Status: Active Protocol: Activity Type Activity Date Activity User E-Sign Co-Sign Detail Recorded Client Recorded Date Recorded By Document 05/20/20 11:42 MW [id number] 05/20/20 12:04 MW Document 05/27/20 09:22 MW [id number] 05/27/20 09:38 MW Document 06/03/20 12:26 MW [id number] 06/03/20 12:35 MW 05/20/20 05/27/20 06/03/20 11:42 09:22 12:26 Wound Center Nurse 2 #17- R HEEL -Time 11:47 09:23 12:31 -Correct Patient Yes Yes Yes -Correct Side, Site, Position Yes Yes Yes -Correct Procedure Yes Yes Yes -Procedure Performed Yes Yes Yes -Type of Procedure Debridement Debridement Debridement -Clinical Debridement Subcutaneous Subcutaneous Subcutaneous -Tissue Removed Subcutaneous Subcutaneous Subcutaneous -Post Debridement (cm) - Length 0.4 0.4 0.4 -Post Debridement (cm) - Width 0.2 0.2 0.2 -Post Debridement (cm) - Depth 0.3 0.3 0.3 -Total Square (Post) (cm) 0.08 0.08 0.08 -Area of Debridement (cm) - Length 0.4 0.4 0.4 -Area of Debridement (cm) - Width 0.2 0.2 0.2 -Total Square (Area) (cm) 0.08 0.08 0.08 -Tunneling No No No -Undermining/Tunneling No No No -Circular Undermining No No No -Wound/Ulcer Outcome Not Healed Not Healed Not Healed -Ulcer Cleansing Rinsed/ Rinsed/ Rinsed/ Irrigated with Irrigated with Irrigated with Saline Saline Saline -Foul Odor after Cleansing No No No -Bioengineered Tissue No No No -Bleeding Controlled with Pressure Pressure Pressure -Offloading No No No -Treatment Response Procedure Procedure Tolerated Well Tolerated Well -Debridement - Subq, 1st 20sq cm Yes Yes Yes Pain Scale: 0-10 Numeric Is Patient Pain Free? Yes Yes WC - Nurse 3 - General Ulcer D/C NN Start: 05/20/20 11:29 Freq: Status: Active Protocol: Activity Type Activity Date Activity User E-Sign Co-Sign Detail Recorded Client Recorded Date Recorded By Document 05/20/20 12:26 [id number] 05/20/20 12:27 RB Document 05/27/20 10:04 RB [id number] 05/27/20 10:05 RB Document 06/03/20 12:57 [facility] [id number] 06/03/20 12:57 BM 05/20/20 05/27/20 06/03/20 12:26 10:04 12:57 Wound Care Nurse 3 #17- R HEEL -Ulcer Cleansing Rinsed/ Rinsed/ Rinsed/ Irrigated with Irrigated with Irrigated with Saline Saline Saline -Foul Odor after Cleansing No -Primary Dressing Applied NonAdherent C Hydrogel ($), NonAdherent Contact Layer, NonAdherent Contact Layer, Promogran Contact Layer Other Verenice Matter -Other Dressing nurses hat ABD NURSES HAT hydrogel -Primary Dressing Covered/Secured with Dry Gauze,Dry Dry Gauze,Dry Dry Gauze & Gauze & Roll Gauze & Roll Roll Gauze, Gauze,Secured Gauze,Secured Secured with with Tape with Tape Tape,Other -Other Covering heel hat -Promogran Verenice Matter 1 Right -Compression Wrap Leopoldo Wrap -Other LEOPOLDO Left -Other Leopoldo Treatment Response Procedure Tolerated Well Vital Signs Blood Pressure (90/60-120/80) 128/85 H 150/82 H Blood Pressure Mean (mm Hg) 99 104 Source Monitor Monitor Position Semi-Fowlers Sitting Blood Pressure Location Left Arm Left Arm Pain Scale: 0-10 Numeric Is Patient Pain Free? Yes Yes WC - Visit Discharge Discharge Condition Stable Stable Stable Ambulatory Status Wheelchair Cane,Wheelchair Wheelchair Transportation Private Auto Private Auto Private Auto Accompanied by Medication Reconcilliation completed & No No provided to patient/care provider Clinical Summary of Care Provided Yes Yes Facility Type Home Health Wound debrided: right heel Laterality: Right Wound Grade/Stage: Grade 3 Type of Debridement: Excisional debridement Anesthesia Used: 4% Lidocaine Solution, 5% Lidocaine Gel Depth: Down to and including healthy tissue, in the subcutaneous layer Percentage of wound debrided: 100 Instrument Used: 3mm curette Tissue Removed: Yellow slough, devitalized tissue Severity: Fat Layer Exposed Amount of bleeding with debridement: Mild Bleeding Controlled with: Compression and gauze Patient tolerated procedure well Assessment/Plan Active Problems Cellulitis of foot, right (Chronic) Type 2 diabetes mellitus with diabetic polyneuropathy (Chronic) Open wound of right heel (Chronic) Peripheral arterial occlusive disease (Chronic) Diabetes mellitus (Chronic) Type 2 diabetes, uncontrolled, with ulcer of heel (Chronic) right plantar heel PAD (peripheral artery disease) (Chronic) Type 2 diabetes, controlled, with ulcer of heel (Chronic) Assessment: 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 Diabetes mellitus - controlled. Peripheral vascular disease - status post revascularization 08/07/18 and 03/2019 Plan: Demetriuss ulcer was evaluated and debrided today with mild improvement. He is tolerating antibiotic treatment. Will change to hydrogel and adaptic changed every other day. Encouraged to call with any increase in pain or drainage, fever or chills. F/U in 1 week. Discussed if any worsening of symptoms he should go to the emergency department. This note was generated with [employer] software. It may contain incorrect words, spelling, and punctuation that were not noted in checking the note before signing.
== END 2020-06-16 23:59 ==
LOC: WC 11:00
PROVIDERS: Family Provider Family Medicine; PCP Family Medicine; Referring Provider Family Medicine; Visit Provider Family Medicine
DX: E11.621 Type 2 diabetes mellitus with foot ulcer (principal); L97.412 Non-pressure chronic ulcer of right heel and midfoot with fat layer exposed; B95.2 Enterococcus as the cause of diseases classified elsewhere; E11.42 Type 2 diabetes mellitus with diabetic polyneuropathy; E11.51 Type 2 diabetes mellitus with diabetic peripheral angiopathy without gangrene; E11.65 Type 2 diabetes mellitus with hyperglycemia; Z79.01 Long term (current) use of anticoagulants; Z79.82 Long term (current) use of aspirin; Z79.899 Other long term (current) drug therapy
CPT/HCPCS: 11042; 87070; 87075; 87077; 87186; 87205

== ENCOUNTER → 2020-07-11 13:58 | Outpatient (CLI) | payer MEDICARE, OTHER, SELFPAY ==
[2020-07-08 11:09] VITALS: BMI 25.8
[2020-07-11 16:49] LABS: Absolute Lymphocyte Count 1.24 X10^3/uL (0.83-4.51); Absolute Neutrophil Count 3.1 X10^3/uL (2.0-7.7); Basophil# 0.07 X10^3/uL; Basophil% 1.3 % (0-1); Eosinophil# 0.13 X10^3/uL; Eosinophils% 2.5 % (0-5); Hemoglobin 14.5 g/dL (13.0-16.5); Lymphocyte # 1.24 X10^3/ul (4.0); Lymphocyte % 23.8 % (19-41); Mean Corpuscular Hgb 31.2 pg (27.0-32.0); Mean Corpuscular Volume 94.6 fL (80-94); Mean Platelet Vol. 10.5 fl (6.2-12.0); Monocyte# 0.66 X10^3/uL; Monocyte% 12.7 % (0-10); NRBC Flagged by Analyzer 0 % (0-5); Neutrophil # 3.08 X10^3/uL (2.7-7.7); Neutrophil % 59.1 % (47-70); Platelet Count 195 K/mm3 (150-450); RBC Distribution Width CV 14.1 % (11.6-14.6); Red Blood Count 4.65 M/mm3 (4.6-6.2); White Blood Count 5.2 K/mm3 (4.4-11.0)
[2020-07-11 16:54] LABS: Erythrocyte Sedimentation Rate 29 mm/hr (0-20)
[2020-07-11 16:55] LABS: Vitamin B12 484 pg/mL (211-911)
[2020-07-11 16:59] LABS: ALB/GLOB Ratio 0.8 RATIO (0.9-2.4); AST(SGOT) 14 U/L (15-37); Alanine Aminotransfer ALT/SGPT 22 U/L (16-61); Albumin, Serum 3.3 g/dL (3.2-5.0); Alkaline Phosphatase 84 U/L (45-117); Anion Gap 7 (5-15); BUN 19 mg/dL (7-18); BUN/Creat Ratio 16.4 RATIO (10-20); CRP 4.68 mg/L (0.0-3.0); Chloride 107 mmol/L (98-107); Creatinine, Serum 1.16 mg/dL (0.70-1.30); EST Glomerular Filtration Rate 66 mL/min (>60); Est Glom Filt Rate - Afr Amer 80 mL/min (>60); Free T3 2.4 pg/mL (2.18-3.98); Globulin 4.1 g/dL (2.2-4.2); Glucose 173 mg/dL (74-106); Protein, Total 7.4 g/dL (6.4-8.2); Sodium Level 138 mmol/L (136-145); T4 Free Direct 0.78 ng/dL (0.76-1.46); Thyroid Stim Hormone (TSH) 2.27 uIU/mL (0.358-3.74)
== END ==
PROVIDERS: PCP Family Medicine; Visit Provider Family Medicine
DX: E11.9 Type 2 diabetes mellitus without complications (principal); L40.9 Psoriasis, unspecified; E53.8 Deficiency of other specified B group vitamins; R53.83 Other fatigue; Z51.81 Encounter for therapeutic drug level monitoring
CPT/HCPCS: 36415; 80053; 82607; 84439; 84443; 84481; 85025; 85652; 86140

== ENCOUNTER 2020-07-15 11:00 | Outpatient (RCR) | payer MEDICARE, OTHER, SELFPAY ==
[2020-06-17 00:14] VITALS: BP 149/76; PULSE 81; RESP 16; TEMP 36.3
[2020-06-24 11:36] VITALS: BP 139/64; PULSE 84; RESP 16; TEMP 36.9; BMI 25.8
[2020-06-24 12:30] VITALS: BP 140/68
--- NOTE | 2020-06-24 13:46 | PN.PCM_ITS ---
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 Code(s): L97.514 - Non-pressure chronic ulcer of other part of right foot with necrosis of bone (3) Open wound of right heel Status: Chronic Qualifiers: Code(s): S91.301A - Unspecified open wound, right foot, initial encounter (4) Diabetic ulcer of toe of right foot Status: Chronic Qualifiers: Code(s): E11.621 - Type 2 diabetes mellitus with foot ulcer; L97.519 - Non- pressure chronic ulcer of other part of right foot with unspecified severity (5) Type 2 diabetes, uncontrolled, with ulcer of heel Status: Chronic Code(s): E11.621 - Type 2 diabetes mellitus with foot ulcer; E11.65 - Type 2 diabetes mellitus with hyperglycemia; L97.409 - Non-pressure chronic ulcer of unspecified heel and midfoot with unspecified severity Comment: right plantar heel Type of Wound Date of Service: 06/24/20 Chief Complaint: Nonhealing ulcer right heel, Valdez Grade 3 diabetic ulcer. History of Wound: Gibson is here for evaluation of an ulcer of his right heel. He was recently treated for this same area with Theraskin application and was discharged in January 2019. He had noticed increased pain in his heel in March and his noted that the area had opened after his platform operations director had debrided some callus from the area. He has been applying Aquacel and gauze to the ulcer. He does follow with Dr. Navas regularly and had a bypass of his right SFA and popliteal arteries in September 2018. He has had procedures for his arterial disease in past to both of his lower extremities. He has tried alternative treatments with supplements and chelation therapy in the past. He also has diabetes and recent A1C was 7.2% He does wear diabetic shoes. He had been undergoing chelation treatments by Dr. German in [place]. He denies fever, chills, erythema or heavy drainage. He reports significant pain and discomfort of his right heel and his entire right leg which no one can explain. In March 2019, he was hospitalized due to occlusion of his bypass graft in his right leg and Dr. Navas was able to open it 50%. He also has blockages in his left leg. Dr. Navas is unable to revascularize either leg at this time and he may ultimately require limb amputation if his vascular disease worsens. December 11, 2019, he was sent to the emergency room with worsening of his ulcer and cellulitis. Dr. Good performed surgical debridement on December 12, 2019 and he was treated with IV antibiotics for over 4 weeks and was in the transitional care unit at [facility] for Rehab and treatment with wound vac. He was discharged on January 23, 2020 to home with continued wound vac treatment. Progress of Wound: Gibson is here to follow up for nonhealing ulcer of his right heel. He is tolerating collagen hydrogel, he is doing well and having less pain. Minimal improvement in his ulcer. Wound culture was positive for VRE - he completed Linezolid. Denies increased drainage, warmth, erythema or odor. - Physical Exam Vital Signs Temp Pulse Resp BP 98.4 F 84 16 140/68 H 06/24/20 11:36 06/24/20 11:36 06/24/20 11:36 06/24/20 12:30 General: Alert, Oriented x3, Cooperative, No apparent distress HEENT: Atraumatic, Normocephalic Oral: Moist Mucosa Abdomen: Soft, Non Tender Extremities: Edema Skin: Ulcer/ Wound Wound Measurements and Assessment - Nurse 1 - General Ulcer Measurement Start: 06/24/20 11:36 Freq: Status: Active Protocol: Activity Type Activity Date Activity User E-Sign Co-Sign Detail Recorded Client Recorded Date Recorded By Document 06/24/20 11:36 MW [id number] 06/24/20 11:39 MW 06/24/20 11:36 Wound Center Nurse 1 [Ulcer Assessment] #17- R HEEL -Combined with other wound No -Current Size (cm) - Length 0.5 -Current Size (cm) - Width 0.3 -Current Size (cm) - Depth 0.3 -Total Square Cm 0.15 -Photo Taken No -Epithelialization None Present -Tunneling No -Undermining/Tunneling No -Circular Undermining No -Exudate Amt Small -Exudate Type Serosanguineous -Wound Margin Thickened -Granulation Amt Medium (34-66%) -Granulation Quality [place] -Slough/Fibrin Yes -Necrosis Amt Medium (34-66%) -Necrotic Tissue Type Adherent Slough -Structure Exposed N/A -Texture (Shahana-wound Skin Appearance) Assessed,Callus -Moisture (Shahana-wound Skin Appearance No Abnormality, ) Assessed -Color (Shahana-wound Skin Appearance) No Abnormality, Assessed -Temperature (Shahana-wound Skin No Abnormality Appearance) (Pt Warm) -Tenderness on Palpation (Shahana-wound Yes Skin Appearance) -Ulcer Cleansing Rinsed/ Irrigated with Saline -Foul Odor after Cleansing No -Anesthetic Used 5% Lidocaine Gel [Edema Assessment] -Lower Limb Edema Present No WC - Nurse 2 - General Ulcer CM Notes Start: 06/24/20 11:36 Freq: Status: Active Protocol: Activity Type Activity Date Activity User E-Sign Co-Sign Detail Recorded Client Recorded Date Recorded By Document 06/24/20 11:54 MW [id number] 06/24/20 12:08 MW 06/24/20 11:54 Wound Center Nurse 2 [Procedure/Treatment] #17- R HEEL -Time 11:56 -Correct Patient Yes -Correct Side, Site, Position Yes -Correct Procedure Yes -Procedure Performed Yes -Type of Procedure Debridement -Clinical Debridement Subcutaneous -Tissue Removed Subcutaneous -Post Debridement (cm) - Length 0.5 -Post Debridement (cm) - Width 0.5 -Post Debridement (cm) - Depth 0.3 -Total Square (Post) (cm) 0.25 -Area of Debridement (cm) - Length 0.5 -Area of Debridement (cm) - Width 0.5 -Total Square (Area) (cm) 0.25 -Tunneling No -Undermining/Tunneling No -Circular Undermining No -Wound/Ulcer Outcome Not Healed -Ulcer Cleansing Rinsed/ Irrigated with Saline -Foul Odor after Cleansing No -Bioengineered Tissue No -Bleeding Controlled with Pressure -Offloading No -Treatment Response Procedure Tolerated Well -Debridement - Subq, 1st 20sq cm Yes [See Physician Procedure note for Specifics] Pain Scale: 0-10 Numeric [Pain] -Is Patient Pain Free? Yes WC - Nurse 3 - General Ulcer D/C NN Start: 06/24/20 11:36 Freq: Status: Active Protocol: Activity Type Activity Date Activity User E-Sign Co-Sign Detail Recorded Client Recorded Date Recorded By Document 06/24/20 12:30 RB [id number] 06/24/20 12:31 RB 06/24/20 12:30 Wound Care Nurse 3 [Wound Dressing] #17- R HEEL -Ulcer Cleansing Rinsed/ Irrigated with Saline -Primary Dressing Applied NonAdherent Contact Layer -Other Dressing HYDROGEL, NURSES HAT WITH ABD -Primary Dressing Covered/Secured Dry Gauze & with Roll Gauze, Secured with Tape [Compression Applied] Right -Other DOMINGO [Post Procedure Tolerated] -Treatment Response Procedure Tolerated Well Vital Signs [Blood Pressure] -Blood Pressure (90/60-120/80) 140/68 H -Blood Pressure Mean (mm Hg) 92 -Source Monitor -Position Semi-Fowlers -Blood Pressure Location Left Arm Pain Scale: 0-10 Numeric [Pain] -Is Patient Pain Free? Yes WC - Visit Discharge [Visit Discharge Information] -Discharge Condition Stable -Ambulatory Status Ambulatory -Transportation Private Auto -Medication Reconcilliation completed No & provided to patient/care provider -Clinical Summary of Care Provided Yes Psych/Mental Status: Normal Affect, Appropriate Debridement Note Post-Debridement Measurements/Treatment WC - Nurse 2 - General Ulcer CM Notes Start: 06/24/20 11:36 Freq: Status: Active Protocol: Activity Type Activity Date Activity User E-Sign Co-Sign Detail Recorded Client Recorded Date Recorded By Document 06/24/20 11:54 MW [id number] 06/24/20 12:08 MW 06/24/20 11:54 Wound Center Nurse 2 #17- R HEEL -Time 11:56 -Correct Patient Yes -Correct Side, Site, Position Yes -Correct Procedure Yes -Procedure Performed Yes -Type of Procedure Debridement -Clinical Debridement Subcutaneous -Tissue Removed Subcutaneous -Post Debridement (cm) - Length 0.5 -Post Debridement (cm) - Width 0.5 -Post Debridement (cm) - Depth 0.3 -Total Square (Post) (cm) 0.25 -Area of Debridement (cm) - Length 0.5 -Area of Debridement (cm) - Width 0.5 -Total Square (Area) (cm) 0.25 -Tunneling No -Undermining/Tunneling No -Circular Undermining No -Wound/Ulcer Outcome Not Healed -Ulcer Cleansing Rinsed/ Irrigated with Saline -Foul Odor after Cleansing No -Bioengineered Tissue No -Bleeding Controlled with Pressure -Offloading No -Treatment Response Procedure Tolerated Well -Debridement - Subq, 1st 20sq cm Yes Pain Scale: 0-10 Numeric Is Patient Pain Free? Yes WC - Nurse 3 - General Ulcer D/C NN Start: 06/24/20 11:36 Freq: Status: Active Protocol: Activity Type Activity Date Activity User E-Sign Co-Sign Detail Recorded Client Recorded Date Recorded By Document 06/24/20 12:30 RB [id number] 06/24/20 12:31 RB 06/24/20 12:30 Wound Care Nurse 3 #17- R HEEL -Ulcer Cleansing Rinsed/ Irrigated with Saline -Primary Dressing Applied NonAdherent Contact Layer -Other Dressing HYDROGEL, NURSES HAT WITH ABD -Primary Dressing Covered/Secured with Dry Gauze & Roll Gauze, Secured with Tape Right -Other DOMINGO Treatment Response Procedure Tolerated Well Vital Signs Blood Pressure (90/60-120/80) 140/68 H Blood Pressure Mean (mm Hg) 92 Source Monitor Position Semi-Fowlers Blood Pressure Location Left Arm Pain Scale: 0-10 Numeric Is Patient Pain Free? Yes WC - Visit Discharge Discharge Condition Stable Ambulatory Status Ambulatory Transportation Private Auto Medication Reconcilliation completed & No provided to patient/care provider Clinical Summary of Care Provided Yes Wound debrided: right heel Laterality: Right Wound Grade/Stage: Valdez grade 3 Type of Debridement: Excisional debridement Anesthesia Used: 4% Lidocaine Solution, 5% Lidocaine Gel Depth: Down to and including healthy tissue, in the subcutaneous layer Percentage of wound debrided: 100 Instrument Used: 3mm curette Tissue Removed: Yellow slough, devitalized tissue Severity: Fat Layer Exposed Amount of bleeding with debridement: Mild Bleeding Controlled with: Compression and gauze Patient tolerated procedure well Assessment/Plan Assessment: 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 Diabetes mellitus - controlled. Peripheral vascular disease - status post revascularization 08/07/18 and 03/2019 Plan: Demetriuss ulcer was evaluated and debrided today with mild improvement. He is completed antibiotic treatment. Will change to hydrogel and adaptic changed daily. Encouraged to call with any increase in pain or drainage, fever or chills. F/U in 1 week. Discussed if any worsening of symptoms he should go to the emergency department. This note was generated with [employer] software. It may contain incorrect words, spelling, and punctuation that were not noted in checking the note before signing.
[2020-07-01 11:10] VITALS: BP 155/54; PULSE 82; RESP 18; TEMP 36.3; BMI 25.8
[2020-07-01 11:49] VITALS: BP 154/56
--- NOTE | 2020-07-01 11:56 | PCM.WC.PN ---
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 Code(s): L97.514 - Non-pressure chronic ulcer of other part of right foot with necrosis of bone (3) Open wound of right heel Status: Chronic Qualifiers: Code(s): S91.301A - Unspecified open wound, right foot, initial encounter (4) Diabetic ulcer of toe of right foot Status: Chronic Qualifiers: Code(s): E11.621 - Type 2 diabetes mellitus with foot ulcer; L97.519 - Non-pressure chronic ulcer of other part of right foot with unspecified severity (5) Type 2 diabetes, uncontrolled, with ulcer of heel Status: Chronic Code(s): E11.621 - Type 2 diabetes mellitus with foot ulcer; E11.65 - Type 2 diabetes mellitus with hyperglycemia; L97.409 - Non-pressure chronic ulcer of unspecified heel and midfoot with unspecified severity Comment: right plantar heel Type of Wound Date of Service: 07/01/20 Chief Complaint: Nonhealing ulcer right heel, Valdez Grade 3 diabetic ulcer. History of Wound: Gibson is here for evaluation of an ulcer of his right heel. He was recently treated for this same area with Theraskin application and was discharged in January 2019. 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 He has been applying Aquacel and gauze to the ulcer. He does follow with Dr. Navas regularly and had a bypass of his right SFA and popliteal arteries in September 2018. He has had procedures for his arterial disease in past to both of his lower extremities. He has tried alternative treatments with supplements and chelation therapy in the past. He also has diabetes and recent A1C was 7.2% He does wear diabetic shoes. He had been undergoing chelation treatments by Dr. German in [place]. He denies fever, chills, erythema or heavy drainage. He reports significant pain and discomfort of his right heel and his entire right leg which no one can explain. In March 2019, he was hospitalized due to occlusion of his bypass graft in his right leg and Dr. Navas was able to open it 50%. He also has blockages in his left leg. Dr. Navas is unable to revascularize either leg at this time and he may ultimately require limb amputation if his vascular disease worsens. December 11, 2019, he was sent to the emergency room with worsening of his ulcer and cellulitis. Dr. Good performed surgical debridement on December 12, 2019 and he was treated with IV antibiotics for over 4 weeks and was in the transitional care unit at [facility] for Rehab and treatment with wound vac. He was discharged on January 23, 2020 to home with continued wound vac treatment. Progress of Wound: Gibson is here to follow up for nonhealing ulcer of his right heel. He is tolerating collagen hydrogel, he is doing well and having less pain. Minimal improvement in his ulcer. Wound culture 05/27/20 was positive for VRE - he completed Linezolid. Denies increased drainage, warmth, erythema or odor. - Physical Exam Vital Signs Temp Pulse Resp BP 97.3 F L 82 18 154/56 H 07/01/20 11:10 07/01/20 11:10 07/01/20 11:10 07/01/20 11:49 General: Alert, Oriented x3, Cooperative, No apparent distress HEENT: Atraumatic, Normocephalic Oral: Moist Mucosa Abdomen: Soft, Non Tender Extremities: Edema Skin: Ulcer/ Wound Wound Measurements and Assessment - Nurse 1 - General Ulcer Measurement Start: 06/24/20 11:36 Freq: Status: Active Protocol: Activity Type Activity Date Activity User E-Sign Co-Sign Detail Recorded Client Recorded Date Recorded By Document 07/01/20 11:10 [id number] 07/01/20 11:24 RB 07/01/20 11:10 Wound Center Nurse 1 [Ulcer Assessment] #17- R HEEL -Combined with other wound No -Current Size (cm) - Length 0.4 -Current Size (cm) - Width 0.5 -Current Size (cm) - Depth 0.3 -Total Square Cm 0.20 -Tunneling No -Undermining/Tunneling No -Circular Undermining No -Exudate Amt Small -Exudate Type Serosanguineous -Wound Margin Flat & Intact -Granulation Amt Medium (34-66%) -Granulation Quality [place] -Slough/Fibrin Yes -Necrosis Amt Small (1-33%) -Necrotic Tissue Type Adherent Slough -Structure Exposed N/A -Texture (Shahana-wound Skin Appearance) Callus -Moisture (Shahana-wound Skin Appearance Assessed ) -Color (Shahana-wound Skin Appearance) Assessed -Temperature (Shahana-wound Skin No Abnormality Appearance) (Pt Warm) -Tenderness on Palpation (Shahana-wound No Skin Appearance) -Ulcer Cleansing Rinsed/ Irrigated with Saline -Foul Odor after Cleansing No -Anesthetic Used 5% Lidocaine Gel WC - Nurse 2 - General Ulcer CM Notes Start: 06/24/20 11:36 Freq: Status: Active Protocol: Activity Type Activity Date Activity User E-Sign Co-Sign Detail Recorded Client Recorded Date Recorded By Document 07/01/20 11:33 MW [id number] 07/01/20 11:42 MW 07/01/20 11:33 Wound Center Nurse 2 [Procedure/Treatment] -Time 11:33 -Correct Patient Yes -Correct Side, Site, Position Yes -Correct Procedure Yes -Procedure Performed Yes -Type of Procedure Debridement -Clinical Debridement Subcutaneous -Tissue Removed Subcutaneous -Post Debridement (cm) - Length 0.5 -Post Debridement (cm) - Width 0.3 -Post Debridement (cm) - Depth 0.2 -Total Square (Post) (cm) 0.15 -Area of Debridement (cm) - Length 0.5 -Area of Debridement (cm) - Width 0.3 -Total Square (Area) (cm) 0.15 -Tunneling No -Undermining/Tunneling No -Circular Undermining No -Wound/Ulcer Outcome Not Healed -Ulcer Cleansing Rinsed/ Irrigated with Saline -Foul Odor after Cleansing No -Bioengineered Tissue No -Bleeding Controlled with Pressure -Offloading No -Treatment Response Procedure Tolerated Well -Debridement - Subq, 1st 20sq cm Yes [See Physician Procedure note for Specifics] Pain Scale: 0-10 Numeric [Pain] -Is Patient Pain Free? Yes - Nurse 3 - General Ulcer D/C NN Start: 06/24/20 11:36 Freq: Status: Active Protocol: Activity Type Activity Date Activity User E-Sign Co-Sign Detail Recorded Client Recorded Date Recorded By Document 07/01/20 11:49 RB [id number] 07/01/20 11:51 RB 07/01/20 11:49 Wound Care Nurse 3 [Wound Dressing] #17- R HEEL -Ulcer Cleansing Rinsed/ Irrigated with Saline -Primary Dressing Applied NonAdherent Contact Layer -Other Dressing hydrogel -Primary Dressing Covered/Secured Dry Gauze,Dry with Gauze & Roll Gauze,Secured with Tape -Other Covering nurses hat fro abd pad [Compression Applied] Right -Other garry Vital Signs [Blood Pressure] -Blood Pressure (90/60-120/80) 154/56 H -Blood Pressure Mean (mm Hg) 88 -Source Monitor -Position Sitting -Blood Pressure Location Left Arm Pain Scale: 0-10 Numeric [Pain] -Is Patient Pain Free? Yes WC - Visit Discharge [Visit Discharge Information] -Discharge Condition Stable -Ambulatory Status Wheelchair -Transportation Private Auto -Medication Reconcilliation completed No & provided to patient/care provider -Clinical Summary of Care Provided Yes Psych/Mental Status: Normal Affect, Appropriate Debridement Note Post-Debridement Measurements/Treatment WC - Nurse 2 - General Ulcer CM Notes Start: 06/24/20 11:36 Freq: Status: Active Protocol: Activity Type Activity Date Activity User E-Sign Co-Sign Detail Recorded Client Recorded Date Recorded By Document 06/24/20 11:54 MW [id number] 06/24/20 12:08 MW Document 07/01/20 11:33 MW [id number] 07/01/20 11:42 MW 06/24/20 07/01/20 11:54 11:33 Wound Center Nurse 2 #17- R HEEL -Time 11:56 11:33 -Correct Patient Yes Yes -Correct Side, Site, Position Yes Yes -Correct Procedure Yes Yes -Procedure Performed Yes Yes -Type of Procedure Debridement Debridement -Clinical Debridement Subcutaneous Subcutaneous -Tissue Removed Subcutaneous Subcutaneous -Post Debridement (cm) - Length 0.5 0.5 -Post Debridement (cm) - Width 0.5 0.3 -Post Debridement (cm) - Depth 0.3 0.2 -Total Square (Post) (cm) 0.25 0.15 -Area of Debridement (cm) - Length 0.5 0.5 -Area of Debridement (cm) - Width 0.5 0.3 -Total Square (Area) (cm) 0.25 0.15 -Tunneling No No -Undermining/Tunneling No No -Circular Undermining No No -Wound/Ulcer Outcome Not Healed Not Healed -Ulcer Cleansing Rinsed/ Rinsed/ Irrigated with Irrigated with Saline Saline -Foul Odor after Cleansing No No -Bioengineered Tissue No No -Bleeding Controlled with Pressure Pressure -Offloading No No -Treatment Response Procedure Procedure Tolerated Well Tolerated Well -Debridement - Subq, 1st 20sq cm Yes Yes Pain Scale: 0-10 Numeric Is Patient Pain Free? Yes Yes - Nurse 3 - General Ulcer D/C NN Start: 06/24/20 11:36 Freq: Status: Active Protocol: Activity Type Activity Date Activity User E-Sign Co-Sign Detail Recorded Client Recorded Date Recorded By Document 06/24/20 12:30 RB [id number] 06/24/20 12:31 RB Document 07/01/20 11:49 RB [id number] 07/01/20 11:51 RB 06/24/20 07/01/20 12:30 11:49 Wound Care Nurse 3 #17- R HEEL -Ulcer Cleansing Rinsed/ Rinsed/ Irrigated with Irrigated with Saline Saline -Primary Dressing Applied NonAdherent NonAdherent Contact Layer Contact Layer -Other Dressing HYDROGEL, hydrogel NURSES HAT WITH ABD -Primary Dressing Covered/Secured with Dry Gauze & Dry Gauze,Dry Roll Gauze, Gauze & Roll Secured with Gauze,Secured Tape with Tape -Other Covering nurses hat fro abd pad Right -Other GARRY garry Treatment Response Procedure Tolerated Well Vital Signs Blood Pressure (90/60-120/80) 140/68 H 154/56 H Blood Pressure Mean (mm Hg) 92 88 Source Monitor Monitor Position Semi-Fowlers Sitting Blood Pressure Location Left Arm Left Arm Pain Scale: 0-10 Numeric Is Patient Pain Free? Yes Yes WC - Visit Discharge Discharge Condition Stable Stable Ambulatory Status Ambulatory Wheelchair Transportation Private Auto Private Auto Medication Reconcilliation completed & No No provided to patient/care provider Clinical Summary of Care Provided Yes Yes Wound debrided: right heel Laterality: Right Wound Grade/Stage: Valdez grade 3 Type of Debridement: Excisional debridement Anesthesia Used: 4% Lidocaine Solution, 5% Lidocaine Gel Depth: Down to and including healthy tissue, in the subcutaneous layer Percentage of wound debrided: 100 Instrument Used: 3mm curette Tissue Removed: Yellow slough, devitalized tissue Severity: Fat Layer Exposed Amount of bleeding with debridement: Mild Bleeding Controlled with: Compression and gauze Patient tolerated procedure well Assessment/Plan Active Problems Type 2 diabetes mellitus with diabetic polyneuropathy (Chronic) Ulcer of right foot with necrosis of bone (Chronic) Open wound of right heel (Chronic) Diabetic ulcer of toe of right foot (Chronic) Type 2 diabetes, uncontrolled, with ulcer of heel (Chronic) right plantar heel Assessment: 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 Diabetes mellitus - controlled. Peripheral vascular disease - status post revascularization 08/07/18 and 03/2019 Plan: Gibson's ulcer was evaluated and debrided today with mild improvement. He has completed antibiotic treatment. Will continue to use hydrogel and adaptic changed daily. Encouraged to call with any increase in pain or drainage, fever or chills. F/U in 1 week. Discussed if any worsening of symptoms he should go to the emergency department. This note was generated with [employer] dictation software. It may contain incorrect words, spelling, and punctuation that were not noted in checking the note before signing.
[2020-07-08 11:09] VITALS: BP 148/70; PULSE 65; RESP 18; TEMP 36.1; BMI 25.8
[2020-07-08 12:44] VITALS: BP 148/70
--- NOTE | 2020-07-08 14:09 | PN.PCM_ITS ---
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 Code(s): L97.514 - Non-pressure chronic ulcer of other part of right foot with necrosis of bone (3) Open wound of right heel Status: Chronic Qualifiers: Code(s): S91.301A - Unspecified open wound, right foot, initial encounter (4) Diabetic ulcer of toe of right foot Status: Chronic Qualifiers: Code(s): E11.621 - Type 2 diabetes mellitus with foot ulcer; L97.519 - Non- pressure chronic ulcer of other part of right foot with unspecified severity (5) Type 2 diabetes, uncontrolled, with ulcer of heel Status: Chronic Code(s): E11.621 - Type 2 diabetes mellitus with foot ulcer; E11.65 - Type 2 diabetes mellitus with hyperglycemia; L97.409 - Non-pressure chronic ulcer of unspecified heel and midfoot with unspecified severity Comment: right plantar heel Type of Wound Date of Service: 07/08/20 Chief Complaint: Nonhealing ulcer right heel, Valdez Grade 3 diabetic ulcer. History of Wound: Gibson is here for evaluation of an ulcer of his right heel. He was recently treated for this same area with Theraskin application and was discharged in January 2019. 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 He has been applying Aquacel and gauze to the ulcer. He does follow with Dr. Navas regularly and had a bypass of his right SFA and popliteal arteries in September 2018. He has had procedures for his arterial disease in past to both of his lower extremities. He has tried alternative treatments with supplements and chelation therapy in the past. He also has diabetes and recent A1C was 7.2% He does wear diabetic shoes. He had been undergoing chelation treatments by Dr. German in [place]. He denies fever, chills, erythema or heavy drainage. He reports significant pain and discomfort of his right heel and his entire right leg which no one can explain. In March 2019, he was hospitalized due to occlusion of his bypass graft in his right leg and Dr. Navas was able to open it 50%. He also has blockages in his left leg. Dr. Navas is unable to revascularize either leg at this time and he may ultimately require limb amputation if his vascular disease worsens. December 11, 2019, he was sent to the emergency room with worsening of his ulcer and cellulitis. Dr. Good performed surgical debridement on December 12, 2019 and he was treated with IV antibiotics for over 4 weeks and was in the transitional care unit at [facility] for Rehab and treatment with wound vac. He was discharged on January 23, 2020 to home with continued wound vac treatment. Progress of Wound: Gibson is here to follow up for nonhealing ulcer of his right heel. He is tolerating collagen hydrogel, he is doing well and having less pain. Mild improvement in his ulcer. Wound culture 05/27/20 was positive for VRE - he completed Linezolid. Denies increased drainage, warmth, erythema or odor. - Physical Exam Vital Signs Temp Pulse Resp BP 96.9 F L 65 18 148/70 H 07/08/20 11:09 07/08/20 11:09 07/08/20 11:09 07/08/20 12:44 General: Alert, Oriented x3, Cooperative, No apparent distress HEENT: Atraumatic, Normocephalic Oral: Moist Mucosa Neck: Supple Abdomen: Soft, Non Tender, Obese Extremities: Edema Skin: Ulcer/ Wound Wound Measurements and Assessment - Nurse 1 - General Ulcer Measurement Start: 06/24/20 11:36 Freq: Status: Active Protocol: Activity Type Activity Date Activity User E-Sign Co-Sign Detail Recorded Client Recorded Date Recorded By Document 07/08/20 11:09 [id number] 07/08/20 11:17 RB 07/08/20 11:09 Wound Center Nurse 1 [Ulcer Assessment] #17- R HEEL -Combined with other wound No -Current Size (cm) - Length 0.3 -Current Size (cm) - Width 0.3 -Current Size (cm) - Depth 0.2 -Total Square Cm 0.09 -Tunneling No -Undermining/Tunneling No -Circular Undermining No -Exudate Amt Small -Exudate Type Serosanguineous -Wound Margin Thickened -Granulation Amt Large (67-100%) -Granulation Quality [place] -Slough/Fibrin Yes -Necrosis Amt Small (1-33%) -Necrotic Tissue Type Adherent Slough -Structure Exposed N/A -Texture (Shahana-wound Skin Appearance) Assessed,Callus -Moisture (Shahana-wound Skin Appearance Assessed ) -Color (Shahana-wound Skin Appearance) Assessed -Temperature (Shahana-wound Skin No Abnormality Appearance) (Pt Warm) -Tenderness on Palpation (Shahana-wound No Skin Appearance) -Ulcer Cleansing Wound Cleanser -Foul Odor after Cleansing No -Anesthetic Used 5% Lidocaine Gel WC - Nurse 2 - General Ulcer CM Notes Start: 06/24/20 11:36 Freq: Status: Active Protocol: Activity Type Activity Date Activity User E-Sign Co-Sign Detail Recorded Client Recorded Date Recorded By Document 07/08/20 12:06 MW [id number] 07/08/20 12:15 MW 07/08/20 12:06 Wound Center Nurse 2 [Procedure/Treatment] -Time 12:06 -Correct Patient Yes -Correct Side, Site, Position Yes -Correct Procedure Yes -Procedure Performed Yes -Type of Procedure Debridement -Clinical Debridement Subcutaneous -Tissue Removed Subcutaneous -Post Debridement (cm) - Length 0.2 -Post Debridement (cm) - Width 0.1 -Post Debridement (cm) - Depth 0.2 -Total Square (Post) (cm) 0.02 -Area of Debridement (cm) - Length 0.2 -Area of Debridement (cm) - Width 0.1 -Total Square (Area) (cm) 0.02 -Tunneling No -Undermining/Tunneling No -Circular Undermining No -Wound/Ulcer Outcome Not Healed -Ulcer Cleansing Rinsed/ Irrigated with Saline -Foul Odor after Cleansing No -Bioengineered Tissue No -Bleeding Controlled with Pressure -Offloading No -Debridement - Subq, 1st 20sq cm Yes [See Physician Procedure note for Specifics] Pain Scale: 0-10 Numeric [Pain] -Is Patient Pain Free? Yes WC - Nurse 3 - General Ulcer D/C NN Start: 06/24/20 11:36 Freq: Status: Active Protocol: Activity Type Activity Date Activity User E-Sign Co-Sign Detail Recorded Client Recorded Date Recorded By Document 07/08/20 12:44 RB [id number] 07/08/20 12:45 RB 07/08/20 12:44 Wound Care Nurse 3 [Wound Dressing] #17- R HEEL -Ulcer Cleansing Rinsed/ Irrigated with Saline -Other Dressing HYDROGEL, ABD NURSES HAT -Primary Dressing Covered/Secured Dry Gauze,Dry with Gauze & Roll Gauze,Secured with Tape Vital Signs [Blood Pressure] -Blood Pressure (90/60-120/80) 148/70 H -Blood Pressure Mean (mm Hg) 96 -Source Monitor -Position Semi-Fowlers -Blood Pressure Location Left Arm Pain Scale: 0-10 Numeric [Pain] -Is Patient Pain Free? Yes WC - Visit Discharge [Visit Discharge Information] -Discharge Condition Stable -Ambulatory Status Cane,Wheelchair -Transportation Private Auto -Medication Reconcilliation completed No & provided to patient/care provider -Clinical Summary of Care Provided Yes Psych/Mental Status: Normal Affect, Appropriate Debridement Note Post-Debridement Measurements/Treatment WC - Nurse 2 - General Ulcer CM Notes Start: 06/24/20 11:36 Freq: Status: Active Protocol: Activity Type Activity Date Activity User E-Sign Co-Sign Detail Recorded Client Recorded Date Recorded By Document 06/24/20 11:54 MW [id number] 06/24/20 12:08 MW Document 07/01/20 11:33 MW [id number] 07/01/20 11:42 MW Document 07/08/20 12:06 MW [id number] 07/08/20 12:15 MW 06/24/20 07/01/20 07/08/20 11:54 11:33 12:06 Wound Center Nurse 2 #17- R HEEL -Time 11:56 11:33 12:06 -Correct Patient Yes Yes Yes -Correct Side, Site, Position Yes Yes Yes -Correct Procedure Yes Yes Yes -Procedure Performed Yes Yes Yes -Type of Procedure Debridement Debridement Debridement -Clinical Debridement Subcutaneous Subcutaneous Subcutaneous -Tissue Removed Subcutaneous Subcutaneous Subcutaneous -Post Debridement (cm) - Length 0.5 0.5 0.2 -Post Debridement (cm) - Width 0.5 0.3 0.1 -Post Debridement (cm) - Depth 0.3 0.2 0.2 -Total Square (Post) (cm) 0.25 0.15 0.02 -Area of Debridement (cm) - Length 0.5 0.5 0.2 -Area of Debridement (cm) - Width 0.5 0.3 0.1 -Total Square (Area) (cm) 0.25 0.15 0.02 -Tunneling No No No -Undermining/Tunneling No No No -Circular Undermining No No No -Wound/Ulcer Outcome Not Healed Not Healed Not Healed -Ulcer Cleansing Rinsed/ Rinsed/ Rinsed/ Irrigated with Irrigated with Irrigated with Saline Saline Saline -Foul Odor after Cleansing No No No -Bioengineered Tissue No No No -Bleeding Controlled with Pressure Pressure Pressure -Offloading No No No -Treatment Response Procedure Procedure Tolerated Well Tolerated Well -Debridement - Subq, 1st 20sq cm Yes Yes Yes Pain Scale: 0-10 Numeric Is Patient Pain Free? Yes Yes Yes - Nurse 3 - General Ulcer D/C NN Start: 06/24/20 11:36 Freq: Status: Active Protocol: Activity Type Activity Date Activity User E-Sign Co-Sign Detail Recorded Client Recorded Date Recorded By Document 06/24/20 12:30 RB [id number] 06/24/20 12:31 RB Document 07/01/20 11:49 RB [id number] 07/01/20 11:51 RB Document 07/08/20 12:44 RB [id number] 07/08/20 12:45 RB 06/24/20 07/01/20 07/08/20 12:30 11:49 12:44 Wound Care Nurse 3 #17- R HEEL -Ulcer Cleansing Rinsed/ Rinsed/ Rinsed/ Irrigated with Irrigated with Irrigated with Saline Saline Saline -Primary Dressing Applied NonAdherent NonAdherent Contact Layer Contact Layer -Other Dressing HYDROGEL, hydrogel HYDROGEL, ABD NURSES HAT WITH NURSES HAT ABD -Primary Dressing Covered/Secured with Dry Gauze & Dry Gauze,Dry Dry Gauze,Dry Roll Gauze, Gauze & Roll Gauze & Roll Secured with Gauze,Secured Gauze,Secured Tape with Tape with Tape -Other Covering nurses hat fro abd pad Right -Other GARRY garry Treatment Response Procedure Tolerated Well Vital Signs Blood Pressure (90/60-120/80) 140/68 H 154/56 H 148/70 H Blood Pressure Mean (mm Hg) 92 88 96 Source Monitor Monitor Monitor Position Semi-Fowlers Sitting Semi-Fowlers Blood Pressure Location Left Arm Left Arm Left Arm Pain Scale: 0-10 Numeric Is Patient Pain Free? Yes Yes Yes - Visit Discharge Discharge Condition Stable Stable Stable Ambulatory Status Ambulatory Wheelchair Cane,Wheelchair Transportation Private Auto Private Auto Private Auto Medication Reconcilliation completed & No No No provided to patient/care provider Clinical Summary of Care Provided Yes Yes Yes Wound debrided: right heel Laterality: Right Wound Grade/Stage: Valdez grade 3 Type of Debridement: Excisional debridement Anesthesia Used: 5% Lidocaine Gel Depth: Down to and including healthy tissue, in the subcutaneous layer Percentage of wound debrided: 100 Instrument Used: 3mm curette Tissue Removed: Yellow slough, devitalized tissue Severity: Fat Layer Exposed Amount of bleeding with debridement: Mild Bleeding Controlled with: Compression and gauze Patient tolerated procedure well Assessment/Plan Active Problems Type 2 diabetes mellitus with diabetic polyneuropathy (Chronic) Ulcer of right foot with necrosis of bone (Chronic) Open wound of right heel (Chronic) Diabetic ulcer of toe of right foot (Chronic) Type 2 diabetes, uncontrolled, with ulcer of heel (Chronic) right plantar heel Assessment: 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 Diabetes mellitus - controlled. Peripheral vascular disease - status post revas cularization 08/07/18 and 03/2019 Plan: Gibson's ulcer was evaluated and debrided today with mild improvement. He has completed antibiotic treatment. Will continue to use hydrogel and gauze changed daily. Encouraged to call with any increase in pain or drainage, fever or chills. F/U in 1 week. Discussed if any worsening of symptoms he should go to the emergency department. This note was generated with [employer] dictation software. It may contain incorrect words, spelling, and punctuation that were not noted in checking the note before signing.
[2020-07-15 11:25] VITALS: BP 134/59; PULSE 76; RESP 18; TEMP 36.5; BMI 25.8
--- NOTE | 2020-07-15 12:07 | PCM.WC.PN ---
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 Code(s): L97.514 - Non-pressure chronic ulcer of other part of right foot with necrosis of bone (3) Open wound of right heel Status: Chronic Qualifiers: Code(s): S91.301A - Unspecified open wound, right foot, initial encounter (4) Diabetic ulcer of toe of right foot Status: Chronic Qualifiers: Diabetes mellitus type: type 2 Non-pressure ulcer stage: with muscle involvement without evidence of necrosis Qualified Code(s): E11.621 - Type 2 diabetes mellitus with foot ulcer; L97.515 - Non-pressure chronic ulcer of other part of right foot with muscle involvement without evidence of necrosis Code(s): E11.621 - Type 2 diabetes mellitus with foot ulcer; L97.519 - Non-pressure chronic ulcer of other part of right foot with unspecified severity (5) Type 2 diabetes, uncontrolled, with ulcer of heel Status: Chronic Code(s): E11.621 - Type 2 diabetes mellitus with foot ulcer; E11.65 - Type 2 diabetes mellitus with hyperglycemia; L97.409 - Non-pressure chronic ulcer of unspecified heel and midfoot with unspecified severity Comment: right plantar heel Type of Wound Date of Service: 07/16/20 Chief Complaint: Nonhealing ulcer right heel, Valdez Grade 3 diabetic ulcer. History of Wound: Gibson is here for evaluation of an ulcer of his right heel. He was recently treated for this same area with Theraskin application and was discharged in January 2019. 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 He has been applying Aquacel and gauze to the ulcer. He does follow with Dr. Navas regularly and had a bypass of his right SFA and popliteal arteries in September 2018. He has had procedures for his arterial disease in past to both of his lower extremities. He has tried alternative treatments with supplements and chelation therapy in the past. He also has diabetes and recent A1C was 7.2% He does wear diabetic shoes. He had been undergoing chelation treatments by Dr. German in [place]. He denies fever, chills, erythema or heavy drainage. He reports significant pain and discomfort of his right heel and his entire right leg which no one can explain. In March 2019, he was hospitalized due to occlusion of his bypass graft in his right leg and Dr. Navas was able to open it 50%. He also has blockages in his left leg. Dr. Navas is unable to revascularize either leg at this time and he may ultimately require limb amputation if his vascular disease worsens. December 11, 2019, he was sent to the emergency room with worsening of his ulcer and cellulitis. Dr. Good performed surgical debridement on December 12, 2019 and he was treated with IV antibiotics for over 4 weeks and was in the transitional care unit at [facility] for Rehab and treatment with wound vac. He was discharged on January 23, 2020 to home with continued wound vac treatment. Progress of Wound: Gibson is here to follow up for nonhealing ulcer of his right heel. He is tolerating collagen hydrogel, he is doing well and having less pain. Mild improvement in his ulcer. Wound culture 05/27/20 was positive for VRE - he completed Linezolid. Denies increased drainage, warmth, erythema or odor. - Physical Exam Vital Signs Temp Pulse Resp BP 97.7 F L 76 18 134/59 H 07/15/20 11:25 07/15/20 11:25 07/15/20 11:25 07/15/20 11:25 General: Alert, Oriented x3, Cooperative, No apparent distress HEENT: Atraumatic, Normocephalic Oral: Moist Mucosa Neck: Supple Lungs: Clear to auscultation, Normal air movement Cardiovascular: Regular rate, Regular Rhythm Abdomen: Soft, Non Tender Extremities: Edema Skin: Ulcer/ Wound Wound Measurements and Assessment - Nurse 1 - General Ulcer Measurement Start: 06/24/20 11:36 Freq: Status: Active Protocol: Activity Type Activity Date Activity User E-Sign Co-Sign Detail Recorded Client Recorded Date Recorded By Document 07/15/20 11:25 RB [id number] 07/15/20 11:27 RB 07/15/20 11:25 Wound Center Nurse 1 [Ulcer Assessment] #17- R HEEL -Combined with other wound No -Current Size (cm) - Length 0.1 -Current Size (cm) - Width 0.1 -Current Size (cm) - Depth 0.1 -Total Square Cm 0.01 -Epithelialization Large 67-100% -Tunneling No -Undermining/Tunneling No -Circular Undermining No -Exudate Amt None Present -Granulation Amt Large (67-100%) -Granulation Quality [place] -Slough/Fibrin No -Necrosis Amt None Present (0 %) -Structure Exposed N/A -Texture (Shahana-wound Skin Appearance) Assessed,Callus -Moisture (Shahana-wound Skin Appearance Assessed ) -Color (Shahana-wound Skin Appearance) Assessed -Temperature (Shahana-wound Skin No Abnormality Appearance) (Pt Warm) -Tenderness on Palpation (Shahana-wound No Skin Appearance) -Ulcer Cleansing Wound Cleanser -Foul Odor after Cleansing No -Anesthetic Used 4% Lidocaine Solution WC - Nurse 2 - General Ulcer CM Notes Start: 06/24/20 11:36 Freq: Status: Active Protocol: Activity Type Activity Date Activity User E-Sign Co-Sign Detail Recorded Client Recorded Date Recorded By Document 07/15/20 11:35 MW [id number] 07/15/20 11:45 MW 07/15/20 11:35 Wound Center Nurse 2 [Procedure/Treatment] -Time 11:36 -Correct Patient Yes -Correct Side, Site, Position Yes -Correct Procedure Yes -Procedure Performed Yes -Type of Procedure Debridement -Clinical Debridement Subcutaneous -Tissue Removed Subcutaneous -Post Debridement (cm) - Length 0.2 -Post Debridement (cm) - Width 0.1 -Post Debridement (cm) - Depth 0.2 -Total Square (Post) (cm) 0.02 -Area of Debridement (cm) - Length 0.2 -Area of Debridement (cm) - Width 0.1 -Total Square (Area) (cm) 0.02 -Tunneling No -Undermining/Tunneling No -Circular Undermining No -Wound/Ulcer Outcome Not Healed -Ulcer Cleansing Rinsed/ Irrigated with Saline -Foul Odor after Cleansing No -Bioengineered Tissue No -Bleeding Controlled with Pressure -Offloading No -Treatment Response Procedure Tolerated Well -Debridement - Subq, 1st 20sq cm Yes [See Physician Procedure note for Specifics] Pain Scale: 0-10 Numeric [Pain] -Is Patient Pain Free? Yes ITALO - Nurse 3 - General Ulcer D/C NN Start: 06/24/20 11:36 Freq: Status: Active Protocol: Activity Type Activity Date Activity User E-Sign Co-Sign Detail Recorded Client Recorded Date Recorded By Document 07/15/20 11:46 MW [id number] 07/15/20 11:47 MW 07/15/20 11:46 Wound Care Nurse 3 [Wound Dressing] #17- R HEEL -Ulcer Cleansing Rinsed/ Irrigated with Saline -Foul Odor after Cleansing No -Negative Pressure Wound Therapy N/A -Other Dressing C.HYDROGEL -Primary Dressing Covered/Secured Dry Gauze & with Roll Gauze, Secured with Tape -Other Covering ABD PAD [Compression Applied] Right -Lotion applied to leg before No compression wrap -Compression Wrap Leopoldo Wrap [Post Procedure Tolerated] -Treatment Response Procedure Tolerated Well Teaching: Wound Center [Wound Center Education] (Items with an * have Printed Materials Available- Please identify what is given to patient under the Teaching materials given to patient and caregiver Section. Dressing Your Wound -Person Taught Patient -Teaching Method Discussion, Demonstration -Response to teaching Verbalize understanding WC - Visit Discharge [Visit Discharge Information] -Discharge Condition Stable -Ambulatory Status Wheelchair -Transportation Private Auto -Accompanied by -Medication Reconcilliation completed No & provided to patient/care provider -Clinical Summary of Care Provided Yes Psych/Mental Status: Normal Affect, Appropriate Debridement Note Post-Debridement Measurements/Treatment WC - Nurse 2 - General Ulcer CM Notes Start: 06/24/20 11:36 Freq: Status: Active Protocol: Activity Type Activity Date Activity User E-Sign Co-Sign Detail Recorded Client Recorded Date Recorded By Document 06/24/20 11:54 MW [id number] 06/24/20 12:08 MW Document 07/01/20 11:33 MW [id number] 07/01/20 11:42 MW Document 07/08/20 12:06 MW [id number] 07/08/20 12:15 MW Document 07/15/20 11:35 MW [id number] 07/15/20 11:45 MW 06/24/20 07/01/20 07/08/20 11:54 11:33 12:06 Wound Center Nurse 2 #17- R HEEL -Time 11:56 11:33 12:06 -Correct Patient Yes Yes Yes -Correct Side, Site, Position Yes Yes Yes -Correct Procedure Yes Yes Yes -Procedure Performed Yes Yes Yes -Type of Procedure Debridement Debridement Debridement -Clinical Debridement Subcutaneous Subcutaneous Subcutaneous -Tissue Removed Subcutaneous Subcutaneous Subcutaneous -Post Debridement (cm) - Length 0.5 0.5 0.2 -Post Debridement (cm) - Width 0.5 0.3 0.1 -Post Debridement (cm) - Depth 0.3 0.2 0.2 -Total Square (Post) (cm) 0.25 0.15 0.02 -Area of Debridement (cm) - Length 0.5 0.5 0.2 -Area of Debridement (cm) - Width 0.5 0.3 0.1 -Total Square (Area) (cm) 0.25 0.15 0.02 -Tunneling No No No -Undermining/Tunneling No No No -Circular Undermining No No No -Wound/Ulcer Outcome Not Healed Not Healed Not Healed -Ulcer Cleansing Rinsed/ Rinsed/ Rinsed/ Irrigated with Irrigated with Irrigated with Saline Saline Saline -Foul Odor after Cleansing No No No -Bioengineered Tissue No No No -Bleeding Controlled with Pressure Pressure Pressure -Offloading No No No -Treatment Response Procedure Procedure Tolerated Well Tolerated Well -Debridement - Subq, 1st 20sq cm Yes Yes Yes Pain Scale: 0-10 Numeric Is Patient Pain Free? Yes Yes Yes 07/15/20 11:35 Wound Center Nurse 2 #17- R HEEL -Time 11:36 -Correct Patient Yes -Correct Side, Site, Position Yes -Correct Procedure Yes -Procedure Performed Yes -Type of Procedure Debridement -Clinical Debridement Subcutaneous -Tissue Removed Subcutaneous -Post Debridement (cm) - Length 0.2 -Post Debridement (cm) - Width 0.1 -Post Debridement (cm) - Depth 0.2 -Total Square (Post) (cm) 0.02 -Area of Debridement (cm) - Length 0.2 -Area of Debridement (cm) - Width 0.1 -Total Square (Area) (cm) 0.02 -Tunneling No -Undermining/Tunneling No -Circular Undermining No -Wound/Ulcer Outcome Not Healed -Ulcer Cleansing Rinsed/ Irrigated with Saline -Foul Odor after Cleansing No -Bioengineered Tissue No -Bleeding Controlled with Pressure -Offloading No -Treatment Response Procedure Tolerated Well -Debridement - Subq, 1st 20sq cm Yes Pain Scale: 0-10 Numeric Is Patient Pain Free? Yes WC - Nurse 3 - General Ulcer D/C NN Start: 06/24/20 11:36 Freq: Status: Active Protocol: Activity Type Activity Date Activity User E-Sign Co-Sign Detail Recorded Client Recorded Date Recorded By Document 06/24/20 12:30 RB [id number] 06/24/20 12:31 RB Document 07/01/20 11:49 RB [id number] 07/01/20 11:51 RB Document 07/08/20 12:44 RB [id number] 07/08/20 12:45 RB Document 07/15/20 11:46 MW [id number] 07/15/20 11:47 MW 06/24/20 07/01/20 07/08/20 12:30 11:49 12:44 Wound Care Nurse 3 #17- R HEEL -Ulcer Cleansing Rinsed/ Rinsed/ Rinsed/ Irrigated with Irrigated with Irrigated with Saline Saline Saline -Foul Odor after Cleansing -Negative Pressure Wound Therapy -Primary Dressing Applied NonAdherent NonAdherent Contact Layer Contact Layer -Other Dressing HYDROGEL, hydrogel HYDROGEL, ABD NURSES HAT WITH NURSES HAT ABD -Primary Dressing Covered/Secured with Dry Gauze & Dry Gauze,Dry Dry Gauze,Dry Roll Gauze, Gauze & Roll Gauze & Roll Secured with Gauze,Secured Gauze,Secured Tape with Tape with Tape -Other Covering nurses hat fro abd pad Right -Lotion applied to leg before compression wrap -Compression Wrap -Other LEOPOLDO leopoldo Treatment Response Procedure Tolerated Well Vital Signs Blood Pressure (90/60-120/80) 140/68 H 154/56 H 148/70 H Blood Pressure Mean (mm Hg) 92 88 96 Source Monitor Monitor Monitor Position Semi-Fowlers Sitting Semi-Fowlers Blood Pressure Location Left Arm Left Arm Left Arm Pain Scale: 0-10 Numeric Is Patient Pain Free? Yes Yes Yes Teaching: Wound Center Dressing Your Wound -Person Taught -Teaching Method -Response to teaching WC - Visit Discharge Discharge Condition Stable Stable Stable Ambulatory Status Ambulatory Wheelchair Cane,Wheelchair Transportation Private Auto Private Auto Private Auto Accompanied by Medication Reconcilliation completed & No No No provided to patient/care provider Clinical Summary of Care Provided Yes Yes Yes 07/15/20 11:46 Wound Care Nurse 3 #17- R HEEL -Ulcer Cleansing Rinsed/ Irrigated with Saline -Foul Odor after Cleansing No -Negative Pressure Wound Therapy N/A -Primary Dressing Applied -Other Dressing C.HYDROGEL -Primary Dressing Covered/Secured with Dry Gauze & Roll Gauze, Secured with Tape -Other Covering ABD PAD Right -Lotion applied to leg before No compression wrap -Compression Wrap Leopoldo Wrap -Other Treatment Response Procedure Tolerated Well Vital Signs Blood Pressure (90/60-120/80) Blood Pressure Mean (mm Hg) Source Position Blood Pressure Location Pain Scale: 0-10 Numeric Is Patient Pain Free? Teaching: Wound Center Dressing Your Wound -Person Taught Patient -Teaching Method Discussion, Demonstration -Response to teaching Verbalize understanding WC - Visit Discharge Discharge Condition Stable Ambulatory Status Wheelchair Transportation Private Auto Accompanied by Medication Reconcilliation completed & No provided to patient/care provider Clinical Summary of Care Provided Yes Wound debrided: right heel Laterality: Right Wound Grade/Stage: Valdez grade 3 Type of Debridement: Excisional debridement Anesthesia Used: 4% Lidocaine Solution, 5% Lidocaine Gel Depth: Down to and including healthy tissue, in the subcutaneous layer Percentage of wound debrided: 100 Instrument Used: 3mm curette Tissue Removed: Yellow slough, devitalized tissue Severity: Fat Layer Exposed Amount of bleeding with debridement: Mild Bleeding Controlled with: Compression and gauze Patient tolerated procedure well Assessment/Plan Active Problems Type 2 diabetes mellitus with diabetic polyneuropathy (Chronic) Ulcer of right foot with necrosis of bone (Chronic) Open wound of right heel (Chronic) Diabetic ulcer of toe of right foot (Chronic) Type 2 diabetes, uncontrolled, with ulcer of heel (Chronic) right plantar heel Assessment: 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 Diabetes mellitus - controlled. Peripheral vascular disease - status post revascularization 08/07/18 and 03/2019 Plan: Demetriuss ulcer was evaluated and debrided today with mild improvement. He has completed antibiotic treatment. Will continue to use hydrogel and gauze but increased to twice daily. Encouraged to call with any increase in pain or drainage, fever or chills. F/U in 1 week. Discussed if any worsening of symptoms he should go to the emergency department. This note was generated with [email or web address] dictation software. It may contain incorrect words, spelling, and punctuation that were not noted in checking the note before signing.
== END 2020-07-17 23:59 ==
LOC: WC 11:00
PROVIDERS: Family Provider Family Medicine; PCP Family Medicine; Referring Provider Family Medicine; Visit Provider Family Medicine
DX: E11.621 Type 2 diabetes mellitus with foot ulcer (principal); L97.412 Non-pressure chronic ulcer of right heel and midfoot with fat layer exposed; E11.51 Type 2 diabetes mellitus with diabetic peripheral angiopathy without gangrene; E11.42 Type 2 diabetes mellitus with diabetic polyneuropathy; E11.65 Type 2 diabetes mellitus with hyperglycemia; Z79.82 Long term (current) use of aspirin; Z79.01 Long term (current) use of anticoagulants; Z79.899 Other long term (current) drug therapy
CPT/HCPCS: 11042

== ENCOUNTER 2020-07-24 11:14 | Emergency (ER) | payer MEDICARE, OTHER, SELFPAY ==
[2020-07-22 11:18] VITALS: BMI 25.8
[2020-07-24] VITALS (9 sets, daily range): BP systolic 142–163; BP diastolic 58–78; PULSE 63–89; RESP 16–23; TEMP 36.1–36.6; O2SAT 98; BMI 25.0; BMI 29.9
[2020-07-24 11:30] LABS: Bedside Glucose 142 mg/dL (70-110)
--- NOTE | 2020-07-24 11:32 | EKG12_ITS ---
Test Reason : STROKE Blood Pressure : / mmHG Vent. Rate : 070 BPM Atrial Rate : 070 BPM P-R Int : 162 ms QRS Dur : 144 ms QT Int : 456 ms P-R-T Axes : 050 191 069 degrees QTc Int : 492 ms Normal sinus rhythm Possible Left atrial enlargement Right bundle branch block , plus right ventricular hypertrophy Inferior infarct , age undetermined Abnormal ECG Confirmed by GODFREY MEEK, CARA ([id number]), vacuum drum drier operator CAROLYN HYLTON ([id number]) on 07/26/2020 8:23:29 AM Referred By: Confirmed By:CARA DONAHUE MD
--- NOTE | 2020-07-24 11:32 | CT_ITS ---
STUDY: CT BRAIN WITHOUT CONTRAST REASON FOR EXAM: Male, 70 years old. Altered mental status. Stroke alert. RADIATION DOSAGE (If Supplied By Facility): CTDIvol = ( 45 ) mGy, DLP = ( 864 ) mGycm TECHNIQUE: Transaxial CT imaging of the brain was performed without administration of intravenous contrast material. Individualized dose optimization techniques were used for this CT. 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 There is no acute bleed or infarct. There are stable chronic ischemic and atrophic changes. The ventricles are normal in configuration. There is no hydrocephalus. The visualized paranasal sinuses are clear. The mastoid air cells are well aerated. There is no skull fracture. 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 Stable chronic ischemic and atrophic changes. No acute intracranial abnormality. N.B. : The above information has been verbally conveyed by Hector Wright MD to MD Carole, on 07/24/2020 11:48:23 (ET). Electronically Signed: Hector Wright MD at 11:49 EST Tel , Service support ,
--- NOTE | 2020-07-24 11:32 | RAD_ITS ---
STUDY: X-RAY CHEST REASON FOR EXAM: Male, 70 years old. Chest pain TECHNIQUE: Frontal view of the chest COMPARISON: 01/11/20 FINDINGS: The lungs are clear. There are no pleural effusions. There is no pneumothorax. The heart is stable in size. Again noted are sternotomy wires. The visualized osseous structures are within normal limits. RAD/Chest 1 View IMPRESSION: No acute thoracic pathology. Electronically Signed: Hector Wright MD at 12:34 EST Tel , Service support ,
--- NOTE | 2020-07-24 11:32 | CT_ITS ---
STUDY: CTA HEAD AND NECK WITH CONTRAST REASON FOR EXAM: Male, 70 years old. Dizziness, CVA RADIATION DOSAGE (If Supplied By Facility): CTDIvol = ( ) mGy, DLP = ( ) mGycm TECHNIQUE: CT angiography was performed with a multi-detector CT scanner. Data acquisition was obtained from the skull base through the vertex following intravenous administration of IV 100mL [id number]-[id number]. MIP images were reconstructed from the axial data set. Post-processing of the angiographic images was performed, with multiplanar reformation and 3D reconstruction. Individualized dose optimization techniques were used for this CT. COMPARISON: No relevant priors. FINDINGS: There is calcified plaque formation of the right petrous carotid artery, with a severe stenosis (greater than 75%). There is calcified plaque formation of the right petrous carotid artery, with a mild stenosis. There is calcified plaque formation of the right cavernous carotid artery, with a moderate stenosis (50-75%). There is calcified plaque formation of the left cavernous carotid artery, with a moderate stenosis (50-75%). Normal right A1 segments of the anterior cerebral artery. Normal left A1 segments of the anterior cerebral artery. Normal intact anterior communicating artery (ACOM). Normal bilateral A2 segments of the anterior cerebral arteries. Normal right M1 and M2 segments of the middle cerebral arteries, with a normal M1 bifurcation. Normal left M1 and M2 segments of the middle cerebral arteries, with a normal M1 bifurcation. Normal basilar artery with a normal basilar bifurcation. The visualized bilateral superior cerebellar (SCA) arteries are normal. Normal bilateral posterior cerebral arteries. RIGHT CAROTID ARTERIES: Normal right common carotid artery (CCA). There is extensive atherosclerotic plaque formation with severe narrowing of the right carotid bulb with a hemodynamically significant stenosis. There is extensive atherosclerotic plaque formation of the origin of the right internal carotid artery with an estimated stenosis of greater than 80%. There is atherosclerotic tortuous elongation of the cervical portion of the right internal carotid artery. LEFT CAROTID ARTERIES: Normal left common carotid artery (CCA). There is moderate atherosclerotic plaque formation with moderate narrowing of the carotid bulb. There is mild atherosclerotic plaque formation of the origin of the left internal carotid artery with less than 50% cross sectional diameter stenosis. There is atherosclerotic tortuous elongation of the cervical portion of the left internal carotid artery. VERTEBRAL ARTERIES: Patent bilateral vertebral arteries. Atherosclerotic plaque with mild right and left vertebral artery stenosis. CT/STROKE CTA Head AND Neck W/Con IMPRESSION: Severe right petrous carotid artery stenosis. Greater than 80% stenosis of the right ICA. N.B. : The above information has been verbally conveyed by Abbi Duffy MD to NORBERTO Velázquez, on 07/24/2020 12:13:09 (ET). Electronically Signed: Abbi Duffy MD at 12:19 EST Tel , Service support ,
--- NOTE | 2020-07-24 11:38 | ED.DCSUM_ITS ---
- ER Visit Summary Date of Service: 07/24/20 Chief Complaint: Vision changes History of Present Illness: The patient is a 70 M presenting with vision changes. Patient states he started having vision changes at 10 PM last night. He states he feels that he cannot see part of his visual field from the left eye. He states it is improved from when he woke up this morning. He complains of dizziness without syncope. He has subjective left-sided weakness. He has history of previous stroke on the left side. He is on Eliquis. He denies headache. Denies chest pain or shortness of breath. Denies recent fever. Physical Examination: Vitals are stable. Patient is afebrile. Alert no acute distress. HEENT exam is unremarkable. Neck is supple. Lungs are clear and equal bilaterally. Heart is regular rate and rhythm. Abdomen is soft nontender nondistended. Extremities are unremarkable. Skin is warm and dry. NIH one for visual Remainder of exam is unremarkable. Emergency Department Course and Treatment: Stroke team was called on patient's arrival. Patient was taken to CT. Noncontrast head CT shows no acute intracranial process. EKG is sinus rhythm rate of 70 with right bundle branch block. CBC, chemistries unremarkable other than BUN 20, creatinine 1.32. Glucose 148. INR 1.1. Troponin 0.019. Discussed with [facility] neurology. Recommends CTA to evaluate for LVO. CTA head and neck shows severe right petrous carotid artery stenosis. Greater than 80% stenosis of the right ICA. Chest x-ray shows no acute process. Discussed with [facility] neurology. CTA images were reviewed by [facility] neurology. Recommend transfer to [facility] for possible carotid artery stenting. Patient and family are agreeable to transfer to [facility]. Disposition: Transfer Impression: Visual field changes, right ICA stenosis This note was generated with [employer] dictation software. It may contain incorrect words, spelling, and punctuation that were not noted in review of the chart prior to signing ED Disposition - Plan for ED Patient: Referrals: Mckayla Silva DO [Primary Care Provider] -
[2020-07-24 11:41] LABS: Absolute Neutrophil Count 3.6 X10^3/uL (2.0-7.7); Basophil# 0.06 X10^3/uL; Eosinophil# 0.19 X10^3/uL; Hematocrit 46.6 % (40-54); Hemoglobin 14.9 g/dL (13.0-16.5); Lymphocyte % 27.2 % (19-41); Mean Corpuscular Hgb 30.9 pg (27.0-32.0); Mean Corpuscular Volume 96.7 fL (80-94); Mean Platelet Vol. 9.3 fl (6.2-12.0); Monocyte# 0.64 X10^3/uL; Monocyte% 10.2 % (0-10); NRBC Flagged by Analyzer 0 % (0-5); Neutrophil # 3.63 X10^3/uL (2.7-7.7); Platelet Count 192 K/mm3 (150-450); RBC Distribution Width CV 14.5 % (11.6-14.6); RBC Distribution Width SD 51.8 fl (35.1-43.9); Red Blood Count 4.82 M/mm3 (4.6-6.2); White Blood Count 6.3 K/mm3 (4.4-11.0)
[2020-07-24 11:50] LABS: International Normalized Ratio 1.1; Prothrombin Time (Protime)PT. 13.6 SECONDS (11.7-14.9)
[2020-07-24 11:51] LABS: Partial Thromboplast Time 34.8 Seconds (24.1-36.2)
[2020-07-24 12:01] LABS: Anion Gap 5 (5-15); BUN 20 mg/dL (7-18); BUN/Creat Ratio 15.2 RATIO (10-20); Calcium,Total 9.1 mg/dL (8.5-10.1); Chloride 106 mmol/L (98-107); Creatinine, Serum 1.32 mg/dL (0.70-1.30); EST Glomerular Filtration Rate 57 mL/min (>60); Est Glom Filt Rate - Afr Amer 69 mL/min (>60); Estimated Creatinine Clearance 50.38 ml/min; Glucose 148 mg/dL (74-106); Potassium 4.7 mmol/L (3.5-5.1); Sodium Level 140 mmol/L (136-145)
--- NOTE | 2020-07-24 13:37 | ED.RN ---
FAMILY UPDATED ON [facility] VISITOR POLICY. ALSO VISUAL OF INFO GIVEN ON PT'S CURRENT DIAGNOSIS OF RIGHT ICA STENOSIS. ALL QUESTIONS ANSWERED.
== END 2020-07-24 14:25 | disposition short-term general hospital (02) ==
LOC: ED 11:26
PROVIDERS: Emergency Provider Emergency Medicine; PCP Family Medicine
DX: I65.21 Occlusion and stenosis of right carotid artery (principal); E11.9 Type 2 diabetes mellitus without complications; Z79.01 Long term (current) use of anticoagulants; Z79.82 Long term (current) use of aspirin; Z79.899 Other long term (current) drug therapy; Z86.73 Personal history of transient ischemic attack (TIA), and cerebral infarction without residual deficits
CPT/HCPCS: 70450; 70496; 70498; 71045; 80048; 82962; 84484; 85025; 85610; 85730; 93005; 99285; Q9967

== ENCOUNTER 2020-08-12 11:15 | Outpatient (RCR) | payer MEDICARE, OTHER, SELFPAY ==
[2020-07-18 00:16] VITALS: BP 134/59; PULSE 76; RESP 18; TEMP 36.5
[2020-07-22 11:18] VITALS: BP 152/74; PULSE 70; RESP 18; TEMP 36.2; BMI 25.8
[2020-07-22 12:09] VITALS: BP 150/70
--- NOTE | 2020-07-22 12:35 | PN.PCM_ITS ---
(1) Cellulitis of foot, right Status: Chronic Code(s): L03.115 - Cellulitis of right lower limb (2) Type 2 diabetes mellitus with diabetic polyneuropathy Status: Chronic Qualifiers: Code(s): E11.42 - Type 2 diabetes mellitus with diabetic polyneuropathy (3) 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 Code(s): L97.514 - Non-pressure chronic ulcer of other part of right foot with necrosis of bone (4) Open wound of right heel Status: Chronic Qualifiers: Code(s): S91.301A - Unspecified open wound, right foot, initial encounter (5) Peripheral arterial occlusive disease Status: Chronic Code(s): I77.9 - Disorder of arteries and arterioles, unspecified (6) Type 2 diabetes, uncontrolled, with ulcer of heel Status: Chronic Code(s): E11.621 - Type 2 diabetes mellitus with foot ulcer; E11.65 - Type 2 diabetes mellitus with hyperglycemia; L97.409 - Non-pressure chronic ulcer of unspecified heel and midfoot with unspecified severity Comment: right plantar heel (7) PAD (peripheral artery disease) Status: Chronic Code(s): I73.9 - Peripheral vascular disease, unspecified Type of Wound Date of Service: 07/22/20 Chief Complaint: Nonhealing ulcer right heel, [place] Grade 3 diabetic ulcer. History of Wound: Gibson is here for evaluation of an ulcer of his right heel. He was recently treated for this same area with Ther[place]in application and was discharged in January 2019. 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 He has been applying Aquacel and gauze to the ulcer. He does follow with Dr. Navas regularly and had a bypass of his right SFA and popliteal arteries in September 2018. He has had procedures for his arterial disease in past to both of his lower extremities. He has tried alternative treatments with supplements and chelation therapy in the past. He also has diabetes and recent A1C was 7.2% He does wear diabetic shoes. He had been undergoing chelation treatments by Dr. German in [place]. He denies fever, chills, erythema or heavy drainage. He reports significant pain and discomfort of his right heel and his entire right leg which no one can explain. In March 2019, he was hospitalized due to occlusion of his bypass graft in his right leg and Dr. Navas was able to open it 50%. He also has blockages in his left leg. Dr. Navas is unable to revascularize either leg at this time and he may ultimately require limb amputation if his vascular disease worsens. December 11, 2019, he was sent to the emergency room with worsening of his ulcer and cellulitis. Dr. Good performed surgical debridement on December 12, 2019 and he was treated with IV antibiotics for over 4 weeks and was in the transitional care unit at [facility] for Rehab and treatment with wound vac. He was discharged on January 23, 2020 to home with continued wound vac treatment. Progress of Wound: Gibson is here to follow up for nonhealing ulcer of his right heel. He is tolerating collagen hydrogel, he is doing well but increased pain this week. Mild improvement in his ulcer. Wound culture 05/27/20 was positive for VRE - he completed Linezolid. Denies increased drainage, warmth, erythema or odor. - Physical Exam Vital Signs Temp Pulse Resp BP 97.1 F L 70 18 150/70 H 07/22/20 11:18 07/22/20 11:18 07/22/20 11:18 07/22/20 12:09 General: Alert, Oriented x3, Cooperative, No apparent distress HEENT: Atraumatic, Normocephalic Oral: Moist Mucosa Abdomen: Soft, Non Tender Extremities: Edema Skin: Ulcer/ Wound Wound Measurements and Assessment - Nurse 1 - General Ulcer Measurement Start: 07/22/20 11:18 Freq: Status: Active Protocol: Activity Type Activity Date Activity User E-Sign Co-Sign Detail Recorded Client Recorded Date Recorded By Document 07/22/20 11:18 [id number] 07/22/20 11:29 RB 07/22/20 11:18 Wound Center Nurse 1 [Ulcer Assessment] #17- R HEEL -Combined with other wound No -Current Size (cm) - Length 0.1 -Current Size (cm) - Width 0.1 -Current Size (cm) - Depth 0.1 -Total Square Cm 0.01 -Epithelialization Large 67-100% -Tunneling No -Undermining/Tunneling No -Circular Undermining No -Exudate Amt None Present -Wound Margin Thickened -Granulation Amt Large (67-100%) -Granulation Quality [place] -Slough/Fibrin Yes -Necrosis Amt Small (1-33%) -Necrotic Tissue Type Adherent Slough -Structure Exposed N/A -Texture (Shahana-wound Skin Appearance) Callus -Moisture (Shahana-wound Skin Appearance Assessed ) -Color (Shahana-wound Skin Appearance) Assessed -Temperature (Shahana-wound Skin No Abnormality Appearance) (Pt Warm) -Tenderness on Palpation (Shahana-wound No Skin Appearance) -Ulcer Cleansing Rinsed/ Irrigated with Saline -Foul Odor after Cleansing No -Anesthetic Used 5% Lidocaine Gel ITALO - Nurse 2 - General Ulcer CM Notes Start: 07/22/20 11:18 Freq: Status: Active Protocol: Activity Type Activity Date Activity User E-Sign Co-Sign Detail Recorded Client Recorded Date Recorded By Document 07/22/20 11:46 MW [id number] 07/22/20 11:57 MW 07/22/20 11:46 Wound Center Nurse 2 [Procedure/Treatment] -Time 11:47 -Correct Patient Yes -Correct Side, Site, Position Yes -Correct Procedure Yes -Procedure Performed Yes -Type of Procedure Debridement -Clinical Debridement Subcutaneous -Tissue Removed Subcutaneous -Post Debridement (cm) - Length 0.3 -Post Debridement (cm) - Width 0.2 -Post Debridement (cm) - Depth 0.2 -Total Square (Post) (cm) 0.06 -Area of Debridement (cm) - Length 0.3 -Area of Debridement (cm) - Width 0.2 -Total Square (Area) (cm) 0.06 -Tunneling No -Undermining/Tunneling No -Circular Undermining No -Wound/Ulcer Outcome Not Healed -Ulcer Cleansing Rinsed/ Irrigated with Saline -Foul Odor after Cleansing No -Bioengineered Tissue No -Bleeding Controlled with Pressure -Offloading No -Treatment Response Procedure Tolerated Well -Debridement - Subq, 1st 20sq cm Yes [See Physician Procedure note for Specifics] Pain Scale: 0-10 Numeric [Pain] -Is Patient Pain Free? Yes ITALO - Nurse 3 - General Ulcer D/C NN Start: 07/22/20 11:18 Freq: Status: Active Protocol: Activity Type Activity Date Activity User E-Sign Co-Sign Detail Recorded Client Recorded Date Recorded By Document 07/22/20 12:09 RB [id number] 07/22/20 12:10 RB 07/22/20 12:09 Wound Care Nurse 3 [Wound Dressing] #17- R HEEL -Ulcer Cleansing Rinsed/ Irrigated with Saline -Primary Dressing Applied C Hydrogel ($) -Other Dressing abd nurses hat Pt refuse garry wrap -Primary Dressing Covered/Secured Dry Gauze,Dry with Gauze & Roll Gauze,Secured with Tape Vital Signs [Blood Pressure] -Blood Pressure (90/60-120/80) 150/70 H -Blood Pressure Mean (mm Hg) 96 -Source Monitor -Position Sitting -Blood Pressure Location Left Arm Pain Scale: 0-10 Numeric [Pain] -Is Patient Pain Free? Yes WC - Visit Discharge [Visit Discharge Information] -Discharge Condition Stable -Ambulatory Status Wheelchair -Transportation Private Auto -Medication Reconcilliation completed No & provided to patient/care provider -Clinical Summary of Care Provided Yes Psych/Mental Status: Normal Affect, Appropriate Debridement Note Post-Debridement Measurements/Treatment - Nurse 2 - General Ulcer CM Notes Start: 07/22/20 11:18 Freq: Status: Active Protocol: Activity Type Activity Date Activity User E-Sign Co-Sign Detail Recorded Client Recorded Date Recorded By Document 07/22/20 11:46 MW [id number] 07/22/20 11:57 MW 07/22/20 11:46 Wound Center Nurse 2 #17- R HEEL -Time 11:47 -Correct Patient Yes -Correct Side, Site, Position Yes -Correct Procedure Yes -Procedure Performed Yes -Type of Procedure Debridement -Clinical Debridement Subcutaneous -Tissue Removed Subcutaneous -Post Debridement (cm) - Length 0.3 -Post Debridement (cm) - Width 0.2 -Post Debridement (cm) - Depth 0.2 -Total Square (Post) (cm) 0.06 -Area of Debridement (cm) - Length 0.3 -Area of Debridement (cm) - Width 0.2 -Total Square (Area) (cm) 0.06 -Tunneling No -Undermining/Tunneling No -Circular Undermining No -Wound/Ulcer Outcome Not Healed -Ulcer Cleansing Rinsed/ Irrigated with Saline -Foul Odor after Cleansing No -Bioengineered Tissue No -Bleeding Controlled with Pressure -Offloading No -Treatment Response Procedure Tolerated Well -Debridement - Subq, 1st 20sq cm Yes Pain Scale: 0-10 Numeric Is Patient Pain Free? Yes - Nurse 3 - General Ulcer D/C NN Start: 07/22/20 11:18 Freq: Status: Active Protocol: Activity Type Activity Date Activity User E-Sign Co-Sign Detail Recorded Client Recorded Date Recorded By Document 07/22/20 12:09 RB [id number] 07/22/20 12:10 RB 07/22/20 12:09 Wound Care Nurse 3 #17- R HEEL -Ulcer Cleansing Rinsed/ Irrigated with Saline -Primary Dressing Applied C Hydrogel ($) -Other Dressing abd nurses hat Pt refuse garry wrap -Primary Dressing Covered/Secured with Dry Gauze,Dry Gauze & Roll Gauze,Secured with Tape Vital Signs Blood Pressure (90/60-120/80) 150/70 H Blood Pressure Mean (mm Hg) 96 Source Monitor Position Sitting Blood Pressure Location Left Arm Pain Scale: 0-10 Numeric Is Patient Pain Free? Yes WC - Visit Discharge Discharge Condition Stable Ambulatory Status Wheelchair Transportation Private Auto Medication Reconcilliation completed & No provided to patient/care provider Clinical Summary of Care Provided Yes Wound debrided: right heel Laterality: Right Wound Grade/Stage: Grade 3 Type of Debridement: Excisional debridement Anesthesia Used: 4% Lidocaine Solution, 5% Lidocaine Gel Depth: Down to and including healthy tissue, in the subcutaneous layer Percentage of wound debrided: 100 Instrument Used: 3mm curette Tissue Removed: Yellow slough, devitalized tissue Severity: Fat Layer Exposed Amount of bleeding with debridement: Mild Bleeding Controlled with: Compression and gauze Patient tolerated procedure well Assessment/Plan Assessment: 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 Diabetes mellitus - controlled. Peripheral vascular disease - status post revascularization 08/07/18 and 03/2019 Plan: Gibson's ulcer was evaluated and debrided today with mild improvement. Will continue to use hydrogel and gauze daily. Wound culture performed today and proactively started him on Augmentin for likely infection. Will adjust based on final results of culture. Encouraged to call with any increase in pain or drainage, fever or chills. F/U in 1 week. Discussed if any worsening of symptoms he should go to the emergency department. This note was generated with Sigmascreeningation software. It may contain incorrect words, spelling, and punctuation that were not noted in checking the note before signing.
[2020-07-29 11:48] VITALS: BP 123/60; PULSE 68; RESP 18; TEMP 36.3; BMI 25.8
[2020-07-29 12:23] VITALS: BP 124/60
--- NOTE | 2020-07-29 12:30 | PCM.WC.PN ---
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 Code(s): L97.514 - Non-pressure chronic ulcer of other part of right foot with necrosis of bone (4) Open wound of right heel Status: Chronic Qualifiers: Code(s): S91.301A - Unspecified open wound, right foot, initial encounter (5) Peripheral arterial occlusive disease Status: Chronic Code(s): I77.9 - Disorder of arteries and arterioles, unspecified (6) Type 2 diabetes, uncontrolled, with ulcer of heel Status: Chronic Code(s): E11.621 - Type 2 diabetes mellitus with foot ulcer; E11.65 - Type 2 diabetes mellitus with hyperglycemia; L97.409 - Non-pressure chronic ulcer of unspecified heel and midfoot with unspecified severity Comment: right plantar heel (7) PAD (peripheral artery disease) Status: Chronic Code(s): I73.9 - Peripheral vascular disease, unspecified Type of Wound Date of Service: 07/29/20 Chief Complaint: Nonhealing ulcer right heel, Valdez Grade 3 diabetic ulcer. History of Wound: Gibson is here for evaluation of an ulcer of his right heel. He was recently treated for this same area with Theraskin application and was discharged in January 2019. 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 He has been applying Aquacel and gauze to the ulcer. He does follow with Dr. Navas regularly and had a bypass of his right SFA and popliteal arteries in September 2018. He has had procedures for his arterial disease in past to both of his lower extremities. He has tried alternative treatments with supplements and chelation therapy in the past. He also has diabetes and recent A1C was 7.2% He does wear diabetic shoes. He had been undergoing chelation treatments by Dr. German in [place]. He denies fever, chills, erythema or heavy drainage. He reports significant pain and discomfort of his right heel and his entire right leg which no one can explain. In March 2019, he was hospitalized due to occlusion of his bypass graft in his right leg and Dr. Navas was able to open it 50%. He also has blockages in his left leg. Dr. Navas is unable to revascularize either leg at this time and he may ultimately require limb amputation if his vascular disease worsens. December 11, 2019, he was sent to the emergency room with worsening of his ulcer and cellulitis. Dr. Good performed surgical debridement on December 12, 2019 and he was treated with IV antibiotics for over 4 weeks and was in the transitional care unit at [facility] for Rehab and treatment with wound vac. He was discharged on January 23, 2020 to home with continued wound vac treatment. Progress of Wound: Gibson is here to follow up for nonhealing ulcer of his right heel. He was hospitalized this week for TIA and carotid stenosis with stent placement at [facility]. They did not dress his wound other than with optifoam. He has been taking Augmentin that was prescribed for infectin. Wound culture was positive for Staph and Corynebacterium. Denies increased drainage, warmth, erythema or odor. - Physical Exam Vital Signs Temp Pulse Resp BP 97.3 F L 68 18 124/60 H 07/29/20 11:48 07/29/20 11:48 07/29/20 11:48 07/29/20 12:23 Wound Measurements and Assessment - Nurse 1 - General Ulcer Measurement Start: 07/22/20 11:18 Freq: Status: Active Protocol: Activity Type Activity Date Activity User E-Sign Co-Sign Detail Recorded Client Recorded Date Recorded By Document 07/29/20 11:48 [id number] 07/29/20 11:49 RB 07/29/20 11:48 Wound Center Nurse 1 [Ulcer Assessment] #17- R HEEL -Combined with other wound No -Current Size (cm) - Length 0.4 -Current Size (cm) - Width 0.4 -Current Size (cm) - Depth 0.3 -Total Square Cm 0.16 -Tunneling No -Undermining/Tunneling No -Circular Undermining No -Exudate Amt Small -Exudate Type Serosanguineous -Wound Margin Thickened -Granulation Amt Medium (34-66%) -Granulation Quality [place] -Slough/Fibrin Yes -Necrosis Amt Small (1-33%) -Necrotic Tissue Type Adherent Slough -Structure Exposed N/A -Texture (Shahana-wound Skin Appearance) Assessed,Callus -Moisture (Shahana-wound Skin Appearance Assessed ) -Color (Shahana-wound Skin Appearance) Assessed -Temperature (Shahana-wound Skin No Abnormality Appearance) (Pt Warm) -Tenderness on Palpation (Shahana-wound No Skin Appearance) -Ulcer Cleansing Wound Cleanser -Foul Odor after Cleansing No -Anesthetic Used 5% Lidocaine Gel WC - Nurse 2 - General Ulcer CM Notes Start: 07/22/20 11:18 Freq: Status: Active Protocol: Activity Type Activity Date Activity User E-Sign Co-Sign Detail Recorded Client Recorded Date Recorded By Document 07/29/20 11:53 MW [id number] 07/29/20 12:04 MW 07/29/20 11:53 Wound Center Nurse 2 [Procedure/Treatment] -Time 11:53 -Correct Patient Yes -Correct Side, Site, Position Yes -Correct Procedure Yes -Procedure Performed Yes -Type of Procedure Debridement -Clinical Debridement Subcutaneous -Tissue Removed Subcutaneous -Post Debridement (cm) - Length 0.5 -Post Debridement (cm) - Width 0.3 -Post Debridement (cm) - Depth 0.3 -Total Square (Post) (cm) 0.15 -Area of Debridement (cm) - Length 0.5 -Area of Debridement (cm) - Width 0.3 -Total Square (Area) (cm) 0.15 -Tunneling No -Undermining/Tunneling No -Circular Undermining No -Wound/Ulcer Outcome Not Healed -Ulcer Cleansing Rinsed/ Irrigated with Saline -Foul Odor after Cleansing No -Bioengineered Tissue No -Bleeding Controlled with Pressure -Offloading No -Treatment Response Procedure Tolerated Well -Debridement - Subq, 1st 20sq cm Yes [See Physician Procedure note for Specifics] Pain Scale: 0-10 Numeric [Pain] -Is Patient Pain Free? Yes ITALO - Nurse 3 - General Ulcer D/C NN Start: 07/22/20 11:18 Freq: Status: Active Protocol: Activity Type Activity Date Activity User E-Sign Co-Sign Detail Recorded Client Recorded Date Recorded By Document 07/29/20 12:23 RB [id number] 07/29/20 12:24 RB 07/29/20 12:23 Wound Care Nurse 3 [Wound Dressing] #17- R HEEL -Ulcer Cleansing Rinsed/ Irrigated with Saline -Primary Dressing Applied Promogran -Other Dressing abd in nurses hat, roll guauze , garry -Primary Dressing Covered/Secured Dry Gauze,Dry with Gauze & Roll Gauze,Secured with Tape -Promogran 1 [Post Procedure Tolerated] -Treatment Response Procedure Tolerated Well Vital Signs [Blood Pressure] -Blood Pressure (90/60-120/80) 124/60 H -Blood Pressure Mean (mm Hg) 81 -Source Monitor -Position Sitting -Blood Pressure Location Left Arm Pain Scale: 0-10 Numeric [Pain] -Is Patient Pain Free? Yes WC - Visit Discharge [Visit Discharge Information] -Discharge Condition Stable -Ambulatory Status Wheelchair -Transportation Private Auto -Medication Reconcilliation completed No & provided to patient/care provider -Clinical Summary of Care Provided Yes Debridement Note Post-Debridement Measurements/Treatment WC - Nurse 2 - General Ulcer CM Notes Start: 07/22/20 11:18 Freq: Status: Active Protocol: Activity Type Activity Date Activity User E-Sign Co-Sign Detail Recorded Client Recorded Date Recorded By Document 07/22/20 11:46 MW [id number] 07/22/20 11:57 MW Document 07/29/20 11:53 MW [id number] 07/29/20 12:04 MW 07/22/20 07/29/20 11:46 11:53 Wound Center Nurse 2 #17- R HEEL -Time 11:47 11:53 -Correct Patient Yes Yes -Correct Side, Site, Position Yes Yes -Correct Procedure Yes Yes -Procedure Performed Yes Yes -Type of Procedure Debridement Debridement -Clinical Debridement Subcutaneous Subcutaneous -Tissue Removed Subcutaneous Subcutaneous -Post Debridement (cm) - Length 0.3 0.5 -Post Debridement (cm) - Width 0.2 0.3 -Post Debridement (cm) - Depth 0.2 0.3 -Total Square (Post) (cm) 0.06 0.15 -Area of Debridement (cm) - Length 0.3 0.5 -Area of Debridement (cm) - Width 0.2 0.3 -Total Square (Area) (cm) 0.06 0.15 -Tunneling No No -Undermining/Tunneling No No -Circular Undermining No No -Wound/Ulcer Outcome Not Healed Not Healed -Ulcer Cleansing Rinsed/ Rinsed/ Irrigated with Irrigated with Saline Saline -Foul Odor after Cleansing No No -Bioengineered Tissue No No -Bleeding Controlled with Pressure Pressure -Offloading No No -Treatment Response Procedure Procedure Tolerated Well Tolerated Well -Debridement - Subq, 1st 20sq cm Yes Yes Pain Scale: 0-10 Numeric Is Patient Pain Free? Yes Yes - Nurse 3 - General Ulcer D/C NN Start: 07/22/20 11:18 Freq: Status: Active Protocol: Activity Type Activity Date Activity User E-Sign Co-Sign Detail Recorded Client Recorded Date Recorded By Document 07/22/20 12:09 RB [id number] 07/22/20 12:10 RB Document 07/29/20 12:23 RB [id number] 07/29/20 12:24 RB 07/22/20 07/29/20 12:09 12:23 Wound Care Nurse 3 #17- R HEEL -Ulcer Cleansing Rinsed/ Rinsed/ Irrigated with Irrigated with Saline Saline -Primary Dressing Applied C Hydrogel ($) Promogran -Other Dressing abd nurses hat abd in nurses Pt refuse garry hat, roll wrap guauze , garry -Primary Dressing Covered/Secured with Dry Gauze,Dry Dry Gauze,Dry Gauze & Roll Gauze & Roll Gauze,Secured Gauze,Secured with Tape with Tape -Promogran 1 Treatment Response Procedure Tolerated Well Vital Signs Blood Pressure (90/60-120/80) 150/70 H 124/60 H Blood Pressure Mean (mm Hg) 96 81 Source Monitor Monitor Position Sitting Sitting Blood Pressure Location Left Arm Left Arm Pain Scale: 0-10 Numeric Is Patient Pain Free? Yes Yes WC - Visit Discharge Discharge Condition Stable Stable Ambulatory Status Wheelchair Wheelchair Transportation Private Auto Private Auto Medication Reconcilliation completed & No No provided to patient/care provider Clinical Summary of Care Provided Yes Yes Assessment/Plan Active Problems Cellulitis of foot, right (Chronic) Type 2 diabetes mellitus with diabetic polyneuropathy (Chronic) Ulcer of right foot with necrosis of bone (Chronic) Open wound of right heel (Chronic) Peripheral arterial occlusive disease (Chronic) Type 2 diabetes, uncontrolled, with ulcer of heel (Chronic) right plantar heel PAD (peripheral artery disease) (Chronic) Assessment: 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 Diabetes mellitus - controlled. Peripheral vascular disease - status post revascularization 08/07/18 and 03/2019 Plan: Gibson's ulcer was evaluated and debrided today with mild improvement. Will continue to use hydrogel and gauze daily. Wound culture performed today and proactively started him on Augmentin for likely infection. Will adjust based on final results of culture. Encouraged to call with any increase in pain or drainage, fever or chills. F/U in 1 week. Discussed if any worsening of symptoms he should go to the emergency department. This note was generated with [employer] dictation software. It may contain incorrect words, spelling, and punctuation that were not noted in checking the note before signing.
[2020-08-05 11:39] VITALS: BP 155/70; PULSE 78; RESP 18; TEMP 36.3; BMI 25.8
[2020-08-05 12:35] VITALS: BP 145/70
--- NOTE | 2020-08-05 14:08 | PCM.WC.PN ---
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 Code(s): L97.514 - Non-pressure chronic ulcer of other part of right foot with necrosis of bone (4) Open wound of right heel Status: Chronic Qualifiers: Encounter type: subsequent encounter Code(s): S91.301A - Unspecified open wound, right foot, initial encounter (5) Peripheral arterial occlusive disease Status: Chronic Code(s): I77.9 - Disorder of arteries and arterioles, unspecified (6) Type 2 diabetes, uncontrolled, with ulcer of heel Status: Chronic Code(s): E11.621 - Type 2 diabetes mellitus with foot ulcer; E11.65 - Type 2 diabetes mellitus with hyperglycemia; L97.409 - Non-pressure chronic ulcer of unspecified heel and midfoot with unspecified severity Comment: right plantar heel (7) PAD (peripheral artery disease) Status: Chronic Code(s): I73.9 - Peripheral vascular disease, unspecified Type of Wound Date of Service: 08/05/20 Chief Complaint: Nonhealing ulcer right heel, Valdez Grade 3 diabetic ulcer. History of Wound: Gibson is here for evaluation of an ulcer of his right heel. He was recently treated for this same area with Theraskin application and was discharged in January 2019. He had noticed increased pain in his heel in March and his noted that the area had opened after his regional rehabilitation director had debrided some callus from the area. He has been applying Aquacel and gauze to the ulcer. He does follow with Dr. Navas regularly and had a bypass of his right SFA and popliteal arteries in September 2018. He has had procedures for his arterial disease in past to both of his lower extremities. He has tried alternative treatments with supplements and chelation therapy in the past. He also has diabetes and recent A1C was 7.2% He does wear diabetic shoes. He had been undergoing chelation treatments by Dr. German in [place]. He denies fever, chills, erythema or heavy drainage. He reports significant pain and discomfort of his right heel and his entire right leg which no one can explain. In March 2019, he was hospitalized due to occlusion of his bypass graft in his right leg and Dr. Navas was able to open it 50%. He also has blockages in his left leg. Dr. Navas is unable to revascularize either leg at this time and he may ultimately require limb amputation if his vascular disease worsens. December 11, 2019, he was sent to the emergency room with worsening of his ulcer and cellulitis. Dr. Good performed surgical debridement on December 12, 2019 and he was treated with IV antibiotics for over 4 weeks and was in the transitional care unit at [facility] for Rehab and treatment with wound vac. He was discharged on January 23, 2020 to home with continued wound vac treatment. Progress of Wound: Gibson is here to follow up for nonhealing ulcer of his right heel. He has been taking Augmentin that was prescribed for infectin. Wound culture was positive for Staph and Corynebacterium. Denies increased drainage, warmth, erythema or odor. - Physical Exam Vital Signs Temp Pulse Resp BP 97.3 F L 78 18 145/70 H 08/05/20 11:39 08/05/20 11:39 08/05/20 11:39 08/05/20 12:35 General: Alert, Oriented x3, Cooperative, No apparent distress HEENT: Atraumatic, Normocephalic Oral: Moist Mucosa Neck: Supple Abdomen: Obese Extremities: Edema Skin: Ulcer/ Wound Wound Measurements and Assessment - Nurse 1 - General Ulcer Measurement Start: 07/22/20 11:18 Freq: Status: Active Protocol: Activity Type Activity Date Activity User E-Sign Co-Sign Detail Recorded Client Recorded Date Recorded By Document 08/05/20 11:39 [id number] 08/05/20 11:41 RB 08/05/20 11:39 Wound Center Nurse 1 [Ulcer Assessment] #17- R HEEL -Combined with other wound No -Current Size (cm) - Length 0.3 -Current Size (cm) - Width 0.3 -Current Size (cm) - Depth 0.3 -Total Square Cm 0.09 -Tunneling No -Undermining/Tunneling No -Circular Undermining No -Exudate Amt Small -Exudate Type Serosanguineous -Wound Margin Thickened -Granulation Amt Medium (34-66%) -Granulation Quality [place] -Slough/Fibrin Yes -Necrosis Amt Small (1-33%) -Necrotic Tissue Type Adherent Slough -Structure Exposed N/A -Texture (Shahana-wound Skin Appearance) Callus -Moisture (Shahana-wound Skin Appearance Assessed ) -Color (Shahana-wound Skin Appearance) Assessed -Temperature (Shahana-wound Skin No Abnormality Appearance) (Pt Warm) -Tenderness on Palpation (Shahana-wound No Skin Appearance) -Ulcer Cleansing Wound Cleanser -Foul Odor after Cleansing No -Anesthetic Used 5% Lidocaine Gel WC - Nurse 2 - General Ulcer CM Notes Start: 07/22/20 11:18 Freq: Status: Active Protocol: Activity Type Activity Date Activity User E-Sign Co-Sign Detail Recorded Client Recorded Date Recorded By Document 08/05/20 12:02 MW [id number] 08/05/20 12:12 MW 08/05/20 12:02 Wound Center Nurse 2 [Procedure/Treatment] -Time 12:03 -Correct Patient Yes -Correct Side, Site, Position Yes -Correct Procedure Yes -Procedure Performed Yes -Type of Procedure Debridement -Clinical Debridement Subcutaneous -Tissue Removed Subcutaneous -Post Debridement (cm) - Length 0.3 -Post Debridement (cm) - Width 0.3 -Post Debridement (cm) - Depth 0.3 -Total Square (Post) (cm) 0.09 -Area of Debridement (cm) - Length 0.3 -Area of Debridement (cm) - Width 0.3 -Total Square (Area) (cm) 0.09 -Tunneling No -Undermining/Tunneling No -Circular Undermining No -Wound/Ulcer Outcome Not Healed -Ulcer Cleansing Rinsed/ Irrigated with Saline -Foul Odor after Cleansing No -Bioengineered Tissue No -Bleeding Controlled with Pressure -Offloading No -Treatment Response Procedure Tolerated Well -Debridement - Subq, 1st 20sq cm Yes [See Physician Procedure note for Specifics] Pain Scale: 0-10 Numeric [Pain] -Is Patient Pain Free? Yes ITALO - Nurse 3 - General Ulcer D/C NN Start: 07/22/20 11:18 Freq: Status: Active Protocol: Activity Type Activity Date Activity User E-Sign Co-Sign Detail Recorded Client Recorded Date Recorded By Document 08/05/20 12:35 RB [id number] 08/05/20 12:36 RB 08/05/20 12:35 Wound Care Nurse 3 [Wound Dressing] #17- R HEEL -Other Dressing hydrogel and abd nurses hat -Primary Dressing Covered/Secured Dry Gauze & with Roll Gauze, Secured with Tape [Post Procedure Tolerated] -Treatment Response Procedure Tolerated Well Vital Signs [Blood Pressure] -Blood Pressure (90/60-120/80) 145/70 H -Blood Pressure Mean (mm Hg) 95 -Source Monitor -Position Sitting -Blood Pressure Location Left Arm Pain Scale: 0-10 Numeric [Pain] -Is Patient Pain Free? Yes WC - Visit Discharge [Visit Discharge Information] -Discharge Condition Stable -Ambulatory Status Wheelchair -Transportation Private Auto -Medication Reconcilliation completed No & provided to patient/care provider -Clinical Summary of Care Provided Yes Psych/Mental Status: Normal Affect, Appropriate Debridement Note Post-Debridement Measurements/Treatment WC - Nurse 2 - General Ulcer CM Notes Start: 07/22/20 11:18 Freq: Status: Active Protocol: Activity Type Activity Date Activity User E-Sign Co-Sign Detail Recorded Client Recorded Date Recorded By Document 07/22/20 11:46 MW [id number] 07/22/20 11:57 MW Document 07/29/20 11:53 MW [id number] 07/29/20 12:04 MW Document 08/05/20 12:02 MW [id number] 08/05/20 12:12 MW 07/22/20 07/29/20 08/05/20 11:46 11:53 12:02 Wound Center Nurse 2 #17- R HEEL -Time 11:47 11:53 12:03 -Correct Patient Yes Yes Yes -Correct Side, Site, Position Yes Yes Yes -Correct Procedure Yes Yes Yes -Procedure Performed Yes Yes Yes -Type of Procedure Debridement Debridement Debridement -Clinical Debridement Subcutaneous Subcutaneous Subcutaneous -Tissue Removed Subcutaneous Subcutaneous Subcutaneous -Post Debridement (cm) - Length 0.3 0.5 0.3 -Post Debridement (cm) - Width 0.2 0.3 0.3 -Post Debridement (cm) - Depth 0.2 0.3 0.3 -Total Square (Post) (cm) 0.06 0.15 0.09 -Area of Debridement (cm) - Length 0.3 0.5 0.3 -Area of Debridement (cm) - Width 0.2 0.3 0.3 -Total Square (Area) (cm) 0.06 0.15 0.09 -Tunneling No No No -Undermining/Tunneling No No No -Circular Undermining No No No -Wound/Ulcer Outcome Not Healed Not Healed Not Healed -Ulcer Cleansing Rinsed/ Rinsed/ Rinsed/ Irrigated with Irrigated with Irrigated with Saline Saline Saline -Foul Odor after Cleansing No No No -Bioengineered Tissue No No No -Bleeding Controlled with Pressure Pressure Pressure -Offloading No No No -Treatment Response Procedure Procedure Procedure Tolerated Well Tolerated Well Tolerated Well -Debridement - Subq, 1st 20sq cm Yes Yes Yes Pain Scale: 0-10 Numeric Is Patient Pain Free? Yes Yes Yes - Nurse 3 - General Ulcer D/C NN Start: 07/22/20 11:18 Freq: Status: Active Protocol: Activity Type Activity Date Activity User E-Sign Co-Sign Detail Recorded Client Recorded Date Recorded By Document 07/22/20 12:09 RB [id number] 07/22/20 12:10 RB Document 07/29/20 12:23 RB [id number] 07/29/20 12:24 RB Document 08/05/20 12:35 RB [id number] 08/05/20 12:36 RB 07/22/20 07/29/20 08/05/20 12:09 12:23 12:35 Wound Care Nurse 3 #17- R HEEL -Ulcer Cleansing Rinsed/ Rinsed/ Irrigated with Irrigated with Saline Saline -Primary Dressing Applied C Hydrogel ($) Promogran -Other Dressing abd nurses hat abd in nurses hydrogel and Pt refuse garry hat, roll abd nurses hat wrap guauze , garry -Primary Dressing Covered/Secured with Dry Gauze,Dry Dry Gauze,Dry Dry Gauze & Gauze & Roll Gauze & Roll Roll Gauze, Gauze,Secured Gauze,Secured Secured with with Tape with Tape Tape -Promogran 1 Treatment Response Procedure Procedure Tolerated Well Tolerated Well Vital Signs Blood Pressure (90/60-120/80) 150/70 H 124/60 H 145/70 H Blood Pressure Mean (mm Hg) 96 81 95 Source Monitor Monitor Monitor Position Sitting Sitting Sitting Blood Pressure Location Left Arm Left Arm Left Arm Pain Scale: 0-10 Numeric Is Patient Pain Free? Yes Yes Yes WC - Visit Discharge Discharge Condition Stable Stable Stable Ambulatory Status Wheelchair Wheelchair Wheelchair Transportation Private Auto Private Auto Private Auto Medication Reconcilliation completed & No No No provided to patient/care provider Clinical Summary of Care Provided Yes Yes Yes Wound debrided: right heel Laterality: Right Wound Grade/Stage: Valdez grade 3 Type of Debridement: Excisional debridement Anesthesia Used: 4% Lidocaine Solution, 5% Lidocaine Gel Depth: Down to and including healthy tissue, in the subcutaneous layer Percentage of wound debrided: 100 Instrument Used: 3mm curette Tissue Removed: Yellow slough, devitalized tissue Severity: Fat Layer Exposed Amount of bleeding with debridement: Mild Bleeding Controlled with: Compression and gauze Patient tolerated procedure well Assessment/Plan Active Problems Cellulitis of foot, right (Chronic) Type 2 diabetes mellitus with diabetic polyneuropathy (Chronic) Ulcer of right foot with necrosis of bone (Chronic) Open wound of right heel (Chronic) Peripheral arterial occlusive disease (Chronic) Type 2 diabetes, uncontrolled, with ulcer of heel (Chronic) right plantar heel PAD (peripheral artery disease) (Chronic) Assessment: 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 Diabetes mellitus - controlled. Peripheral vascular disease - status post revascularization 08/07/18 and 03/2019 Plan: Gibson's ulcer was evaluated and debrided today with mild improvement. Will continue to use hydrogel and gauze daily. Will continue Augmentin for likely infection. Encouraged to call with any increase in pain or drainage, fever or chills. F/U in 1 week. Discussed if any worsening of symptoms he should go to the emergency department. This note was generated with [employer] dictation software. It may contain incorrect words, spelling, and punctuation that were not noted in checking the note before signing.
[2020-08-12 11:45] VITALS: BP 168/99; PULSE 73; RESP 18; TEMP 36.3; BMI 25.8
--- NOTE | 2020-08-12 15:14 | PCM.WC.PN ---
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 Code(s): L97.514 - Non-pressure chronic ulcer of other part of right foot with necrosis of bone (4) Open wound of right heel Status: Chronic Qualifiers: Encounter type: subsequent encounter Code(s): S91.301A - Unspecified open wound, right foot, initial encounter (5) Peripheral arterial occlusive disease Status: Chronic Code(s): I77.9 - Disorder of arteries and arterioles, unspecified (6) Type 2 diabetes, uncontrolled, with ulcer of heel Status: Chronic Code(s): E11.621 - Type 2 diabetes mellitus with foot ulcer; E11.65 - Type 2 diabetes mellitus with hyperglycemia; L97.409 - Non-pressure chronic ulcer of unspecified heel and midfoot with unspecified severity Comment: right plantar heel (7) PAD (peripheral artery disease) Status: Chronic Code(s): I73.9 - Peripheral vascular disease, unspecified Type of Wound Date of Service: 08/12/20 Chief Complaint: Nonhealing ulcer right heel, Valdez Grade 3 diabetic ulcer. History of Wound: Gibson is here for evaluation of an ulcer of his right heel. He was recently treated for this same area with Theraskin application and was discharged in January 2019. 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 He has been applying Aquacel and gauze to the ulcer. He does follow with Dr. Navas regularly and had a bypass of his right SFA and popliteal arteries in September 2018. He has had procedures for his arterial disease in past to both of his lower extremities. He has tried alternative treatments with supplements and chelation therapy in the past. He also has diabetes and recent A1C was 7.2% He does wear diabetic shoes. He had been undergoing chelation treatments by Dr. German in [place]. He denies fever, chills, erythema or heavy drainage. He reports significant pain and discomfort of his right heel and his entire right leg which no one can explain. In March 2019, he was hospitalized due to occlusion of his bypass graft in his right leg and Dr. Navas was able to open it 50%. He also has blockages in his left leg. Dr. Navas is unable to revascularize either leg at this time and he may ultimately require limb amputation if his vascular disease worsens. December 11, 2019, he was sent to the emergency room with worsening of his ulcer and cellulitis. Dr. Good performed surgical debridement on December 12, 2019 and he was treated with IV antibiotics for over 4 weeks and was in the transitional care unit at [facility] for Rehab and treatment with wound vac. He was discharged on January 23, 2020 to home with continued wound vac treatment. Progress of Wound: Gibson is here to follow up for nonhealing ulcer of his right heel. He has been taking Augmentin that was prescribed for infection but this has been completed. Wound culture was positive for Staph and Corynebacterium. Denies increased drainage, warmth, erythema or odor. - Physical Exam Vital Signs Temp Pulse Resp BP 97.3 F L 73 18 168/99 H 08/12/20 11:45 08/12/20 11:45 08/12/20 11:45 08/12/20 11:45 General: Alert, Oriented x3, Cooperative, No apparent distress HEENT: Atraumatic, Normocephalic Oral: Moist Mucosa Abdomen: Soft, Non Tender Extremities: Edema Skin: Ulcer/ Wound Wound Measurements and Assessment - Nurse 1 - General Ulcer Measurement Start: 07/22/20 11:18 Freq: Status: Active Protocol: Activity Type Activity Date Activity User E-Sign Co-Sign Detail Recorded Client Recorded Date Recorded By Document 08/12/20 11:45 RB [id number] 08/12/20 11:52 RB 08/12/20 11:45 Wound Center Nurse 1 [Ulcer Assessment] #17- R HEEL -Combined with other wound No -Current Size (cm) - Length 0.4 -Current Size (cm) - Width 0.5 -Current Size (cm) - Depth 0.2 -Total Square Cm 0.20 -Tunneling No -Undermining/Tunneling No -Circular Undermining No -Exudate Amt Small -Exudate Type Serosanguineous -Wound Margin Thickened -Granulation Amt Medium (34-66%) -Granulation Quality Standish -Slough/Fibrin Yes -Necrosis Amt Small (1-33%) -Necrotic Tissue Type Adherent Slough -Structure Exposed N/A -Texture (Shahana-wound Skin Appearance) Callus -Moisture (Shahana-wound Skin Appearance Assessed ) -Color (Shahana-wound Skin Appearance) Assessed -Temperature (Shahana-wound Skin No Abnormality Appearance) (Pt Warm) -Tenderness on Palpation (Shahana-wound No Skin Appearance) -Ulcer Cleansing Wound Cleanser -Foul Odor after Cleansing No -Anesthetic Used 5% Lidocaine Gel WC - Nurse 2 - General Ulcer CM Notes Start: 07/22/20 11:18 Freq: Status: Active Protocol: Activity Type Activity Date Activity User E-Sign Co-Sign Detail Recorded Client Recorded Date Recorded By Document 08/12/20 12:20 MW [id number] 08/12/20 12:26 MW 08/12/20 12:20 Wound Center Nurse 2 [Procedure/Treatment] -Time 12:21 -Correct Patient Yes -Correct Side, Site, Position Yes -Correct Procedure Yes -Procedure Performed Yes -Type of Procedure Debridement -Clinical Debridement Subcutaneous -Tissue Removed Subcutaneous -Post Debridement (cm) - Length 0.2 -Post Debridement (cm) - Width 0.2 -Post Debridement (cm) - Depth 0.2 -Total Square (Post) (cm) 0.04 -Area of Debridement (cm) - Length 0.2 -Area of Debridement (cm) - Width 0.2 -Total Square (Area) (cm) 0.04 -Tunneling No -Undermining/Tunneling No -Circular Undermining No -Wound/Ulcer Outcome Not Healed -Ulcer Cleansing Rinsed/ Irrigated with Saline -Foul Odor after Cleansing No -Bioengineered Tissue No -Bleeding Controlled with Pressure -Offloading No -Treatment Response Procedure Tolerated Well -Debridement - Subq, 1st 20sq cm Yes [See Physician Procedure note for Specifics] Pain Scale: 0-10 Numeric [Pain] -Is Patient Pain Free? Yes ITALO - Nurse 3 - General Ulcer D/C NN Start: 07/22/20 11:18 Freq: Status: Active Protocol: Activity Type Activity Date Activity User E-Sign Co-Sign Detail Recorded Client Recorded Date Recorded By Document 08/12/20 12:46 KR [id number] 08/12/20 12:47 KR 08/12/20 12:46 Wound Care Nurse 3 [Wound Dressing] #17- R HEEL -Ulcer Cleansing Rinsed/ Irrigated with Saline -Primary Dressing Applied C Hydrogel ($) -Primary Dressing Covered/Secured Dry Gauze, with Secured with Tape Pain Scale: 0-10 Numeric [Pain] -Is Patient Pain Free? Yes WC - Visit Discharge [Visit Discharge Information] -Discharge Condition Stable -Ambulatory Status Wheelchair -Transportation Private Auto -Accompanied by Psych/Mental Status: Normal Affect, Appropriate Debridement Note Post-Debridement Measurements/Treatment WC - Nurse 2 - General Ulcer CM Notes Start: 07/22/20 11:18 Freq: Status: Active Protocol: Activity Type Activity Date Activity User E-Sign Co-Sign Detail Recorded Client Recorded Date Recorded By Document 07/22/20 11:46 MW [id number] 07/22/20 11:57 MW Document 07/29/20 11:53 MW [id number] 07/29/20 12:04 MW Document 08/05/20 12:02 MW [id number] 08/05/20 12:12 MW Document 08/12/20 12:20 MW [id number] 08/12/20 12:26 MW 07/22/20 07/29/20 08/05/20 11:46 11:53 12:02 Wound Center Nurse 2 #17- R HEEL -Time 11:47 11:53 12:03 -Correct Patient Yes Yes Yes -Correct Side, Site, Position Yes Yes Yes -Correct Procedure Yes Yes Yes -Procedure Performed Yes Yes Yes -Type of Procedure Debridement Debridement Debridement -Clinical Debridement Subcutaneous Subcutaneous Subcutaneous -Tissue Removed Subcutaneous Subcutaneous Subcutaneous -Post Debridement (cm) - Length 0.3 0.5 0.3 -Post Debridement (cm) - Width 0.2 0.3 0.3 -Post Debridement (cm) - Depth 0.2 0.3 0.3 -Total Square (Post) (cm) 0.06 0.15 0.09 -Area of Debridement (cm) - Length 0.3 0.5 0.3 -Area of Debridement (cm) - Width 0.2 0.3 0.3 -Total Square (Area) (cm) 0.06 0.15 0.09 -Tunneling No No No -Undermining/Tunneling No No No -Circular Undermining No No No -Wound/Ulcer Outcome Not Healed Not Healed Not Healed -Ulcer Cleansing Rinsed/ Rinsed/ Rinsed/ Irrigated with Irrigated with Irrigated with Saline Saline Saline -Foul Odor after Cleansing No No No -Bioengineered Tissue No No No -Bleeding Controlled with Pressure Pressure Pressure -Offloading No No No -Treatment Response Procedure Procedure Procedure Tolerated Well Tolerated Well Tolerated Well -Debridement - Subq, 1st 20sq cm Yes Yes Yes Pain Scale: 0-10 Numeric Is Patient Pain Free? Yes Yes Yes 08/12/20 12:20 Wound Center Nurse 2 #17- R HEEL -Time 12:21 -Correct Patient Yes -Correct Side, Site, Position Yes -Correct Procedure Yes -Procedure Performed Yes -Type of Procedure Debridement -Clinical Debridement Subcutaneous -Tissue Removed Subcutaneous -Post Debridement (cm) - Length 0.2 -Post Debridement (cm) - Width 0.2 -Post Debridement (cm) - Depth 0.2 -Total Square (Post) (cm) 0.04 -Area of Debridement (cm) - Length 0.2 -Area of Debridement (cm) - Width 0.2 -Total Square (Area) (cm) 0.04 -Tunneling No -Undermining/Tunneling No -Circular Undermining No -Wound/Ulcer Outcome Not Healed -Ulcer Cleansing Rinsed/ Irrigated with Saline -Foul Odor after Cleansing No -Bioengineered Tissue No -Bleeding Controlled with Pressure -Offloading No -Treatment Response Procedure Tolerated Well -Debridement - Subq, 1st 20sq cm Yes Pain Scale: 0-10 Numeric Is Patient Pain Free? Yes - Nurse 3 - General Ulcer D/C NN Start: 07/22/20 11:18 Freq: Status: Active Protocol: Activity Type Activity Date Activity User E-Sign Co-Sign Detail Recorded Client Recorded Date Recorded By Document 07/22/20 12:09 RB [id number] 07/22/20 12:10 RB Document 07/29/20 12:23 RB [id number] 07/29/20 12:24 RB Document 08/05/20 12:35 RB [id number] 08/05/20 12:36 RB Document 08/12/20 12:46 KR [id number] 08/12/20 12:47 KR 07/22/20 07/29/20 08/05/20 12:09 12:23 12:35 Wound Care Nurse 3 #17- R HEEL -Ulcer Cleansing Rinsed/ Rinsed/ Irrigated with Irrigated with Saline Saline -Primary Dressing Applied C Hydrogel ($) Promogran -Other Dressing abd nurses hat abd in nurses hydrogel and Pt refuse garry hat, roll abd nurses hat wrap guauze , garry -Primary Dressing Covered/Secured with Dry Gauze,Dry Dry Gauze,Dry Dry Gauze & Gauze & Roll Gauze & Roll Roll Gauze, Gauze,Secured Gauze,Secured Secured with with Tape with Tape Tape -Promogran 1 Treatment Response Procedure Procedure Tolerated Well Tolerated Well Vital Signs Blood Pressure (90/60-120/80) 150/70 H 124/60 H 145/70 H Blood Pressure Mean (mm Hg) 96 81 95 Source Monitor Monitor Monitor Position Sitting Sitting Sitting Blood Pressure Location Left Arm Left Arm Left Arm Pain Scale: 0-10 Numeric Is Patient Pain Free? Yes Yes Yes WC - Visit Discharge Discharge Condition Stable Stable Stable Ambulatory Status Wheelchair Wheelchair Wheelchair Transportation Private Auto Private Auto Private Auto Accompanied by Medication Reconcilliation completed & No No No provided to patient/care provider Clinical Summary of Care Provided Yes Yes Yes 08/12/20 12:46 Wound Care Nurse 3 #17- R HEEL -Ulcer Cleansing Rinsed/ Irrigated with Saline -Primary Dressing Applied C Hydrogel ($) -Other Dressing -Primary Dressing Covered/Secured with Dry Gauze, Secured with Tape -Promogran Treatment Response Vital Signs Blood Pressure (90/60-120/80) Blood Pressure Mean (mm Hg) Source Position Blood Pressure Location Pain Scale: 0-10 Numeric Is Patient Pain Free? Yes WC - Visit Discharge Discharge Condition Stable Ambulatory Status Wheelchair Transportation Private Auto Accompanied by Medication Reconcilliation completed & provided to patient/care provider Clinical Summary of Care Provided Wound debrided: right heel Laterality: Right Wound Grade/Stage: Valdez grade 3 Type of Debridement: Excisional debridement Anesthesia Used: 4% Lidocaine Solution, 5% Lidocaine Gel Depth: Down to and including healthy tissue, in the subcutaneous layer Percentage of wound debrided: 100 Instrument Used: 3mm curette Tissue Removed: Yellow slough, devitalized tissue Severity: Fat Layer Exposed Amount of bleeding with debridement: Mild Bleeding Controlled with: Compression and gauze Patient tolerated procedure well Assessment/Plan Active Problems Cellulitis of foot, right (Chronic) Type 2 diabetes mellitus with diabetic polyneuropathy (Chronic) Ulcer of right foot with necrosis of bone (Chronic) Open wound of right heel (Chronic) Peripheral arterial occlusive disease (Chronic) Type 2 diabetes, uncontrolled, with ulcer of heel (Chronic) right plantar heel PAD (peripheral artery disease) (Chronic) Assessment: 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 Diabetes mellitus - controlled. Peripheral vascular disease - status post revascularization 08/07/18 and 03/2019 Plan: Gibson's ulcer was evaluated and debrided today with mild improvement. Will continue to use hydrogel and gauze daily. . Encouraged to call with any increase in pain or drainage, fever or chills. F/U in 1 week. Discussed if any worsening of symptoms he should go to the emergency department. This note was generated with [employer] dictation software. It may contain incorrect words, spelling, and punctuation that were not noted in checking the note before signing.
== END 2020-08-14 23:59 ==
LOC: WC 11:15
PROVIDERS: Family Provider Family Medicine; PCP Family Medicine; Referring Provider Family Medicine; Visit Provider Family Medicine
DX: E11.621 Type 2 diabetes mellitus with foot ulcer (principal); L97.414 Non-pressure chronic ulcer of right heel and midfoot with necrosis of bone; E11.51 Type 2 diabetes mellitus with diabetic peripheral angiopathy without gangrene; E11.42 Type 2 diabetes mellitus with diabetic polyneuropathy; E11.65 Type 2 diabetes mellitus with hyperglycemia; L03.115 Cellulitis of right lower limb; I25.10 Atherosclerotic heart disease of native coronary artery without angina pectoris; I10 Essential (primary) hypertension; E78.5 Hyperlipidemia, unspecified; Z79.82 Long term (current) use of aspirin; Z79.01 Long term (current) use of anticoagulants; Z79.899 Other long term (current) drug therapy; Z86.73 Personal history of transient ischemic attack (TIA), and cerebral infarction without residual deficits; Z95.1 Presence of aortocoronary bypass graft
CPT/HCPCS: 11042; 87070; 87075; 87077; 87186; 87205

== ENCOUNTER 2020-09-09 11:00 | Outpatient (RCR) | payer MEDICARE, OTHER, SELFPAY ==
[2020-08-15 00:15] VITALS: BP 168/99; PULSE 73; RESP 18; TEMP 36.3; BMI 29.9
[2020-08-19 11:12] VITALS: BP 172/79; PULSE 83; RESP 20; TEMP 36.6; BMI 29.9
--- NOTE | 2020-08-19 12:32 | PN.PCM_ITS ---
(1) Type 2 diabetes mellitus with diabetic polyneuropathy Status: Chronic Qualifiers: Diabetes mellitus care home insulin use: without termite exterminator use Code(s): E11.42 - Type 2 diabetes mellitus with diabetic polyneuropathy (2) Open wound of right heel Status: Chronic Qualifiers: Code(s): S91.301A - Unspecified open wound, right foot, initial encounter (3) Type 2 diabetes, uncontrolled, with ulcer of heel Status: Chronic Code(s): E11.621 - Type 2 diabetes mellitus with foot ulcer; E11.65 - Type 2 diabetes mellitus with hyperglycemia; L97.409 - Non-pressure chronic ulcer of unspecified heel and midfoot with unspecified severity Comment: right plantar heel (4) PAD (peripheral artery disease) Status: Chronic Code(s): I73.9 - Peripheral vascular disease, unspecified (5) Type 2 diabetes, controlled, with ulcer of heel Status: Chronic Code(s): E11.621 - Type 2 diabetes mellitus with foot ulcer; L97.409 - Non-pressure chronic ulcer of unspecified heel and midfoot with unspecified severity (6) Non-healing open wound of heel Status: Chronic Qualifiers: Encounter type: subsequent encounter Laterality: right Qualified Code(s): S91.301D - Unspecified open wound, right foot, subsequent encounter Code(s): S91.309A - Unspecified open wound, unspecified foot, initial encounter Type of Wound Date of Service: 08/19/20 Chief Complaint: Nonhealing ulcer right heel, Valdez Grade 3 diabetic ulcer. History of Wound: Gibson is here for evaluation of an ulcer of his right heel. He was recently treated for this same area with Theraskin application and was discharged in January 2019. 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 He has been applying Aquacel and gauze to the ulcer. He does follow with Dr. Navas regularly and had a bypass of his right SFA and popliteal arteries in September 2018. He has had procedures for his arterial disease in past to both of his lower extremities. He has tried alternative treatments with supplements and chelation therapy in the past. He also has diabetes and recent A1C was 7.2% He does wear diabetic shoes. He had been undergoing chelation treatments by Dr. German in [place]. He denies fever, chills, erythema or heavy drainage. He reports significant pain and discomfort of his right heel and his entire right leg which no one can explain. In March 2019, he was hospitalized due to occlusion of his bypass graft in his right leg and Dr. Navas was able to open it 50%. He also has blockages in his left leg. Dr. Navas is unable to revascularize either leg at this time and he may ultimately require limb amputation if his vascular disease worsens. December 11, 2019, he was sent to the emergency room with worsening of his ulcer and cellulitis. Dr. Good performed surgical debridement on December 12, 2019 and he was treated with IV antibiotics for over 4 weeks and was in the transitional care unit at [facility] for Rehab and treatment with wound vac. He was discharged on January 23, 2020 to home with continued wound vac treatment. Progress of Wound: Gibson is here to follow up for nonhealing ulcer of his right heel. He has been taking Augmentin that was prescribed for infection but this has not been completed. Wound culture was positive for Staph. Denies increased drainage, warmth, erythema or odor. - Physical Exam Vital Signs Temp Pulse Resp BP 97.8 F 83 20 H 172/79 H 08/19/20 11:12 08/19/20 11:12 08/19/20 11:12 08/19/20 11:12 General: Alert, Oriented x3, Cooperative, No apparent distress HEENT: Atraumatic, Normocephalic Oral: Moist Mucosa Abdomen: Soft, Non Tender Extremities: Edema Skin: Ulcer/ Wound Wound Measurements and Assessment - Nurse 1 - General Ulcer Measurement Start: 08/19/20 11:09 Freq: Status: Active Protocol: Activity Type Activity Date Activity User E-Sign Co-Sign Detail Recorded Client Recorded Date Recorded By Document 08/19/20 11:12 DL [id number] 08/19/20 11:18 DL 08/19/20 11:12 Wound Center Nurse 1 [Ulcer Assessment] #17- R HEEL -Current Size (cm) - Length 0.5 -Current Size (cm) - Width 0.6 -Current Size (cm) - Depth 0.2 -Total Square Cm 0.30 -Photo Taken No -Exudate Amt Small -Exudate Type Serosanguineous -Wound Margin Thickened -Granulation Amt Small (1-33%) -Granulation Quality Red -Necrosis Amt Small (1-33%) -Necrotic Tissue Type Adherent Slough -Structure Exposed N/A -Texture (Shahana-wound Skin Appearance) Scarring -Moisture (Shahana-wound Skin Appearance No Abnormality ) -Color (Shahana-wound Skin Appearance) No Abnormality -Temperature (Shahana-wound Skin No Abnormality Appearance) (Pt Warm) -Tenderness on Palpation (Shahana-wound Yes Skin Appearance) -Ulcer Cleansing Wound Cleanser -Foul Odor after Cleansing No -Anesthetic Used 4% Lidocaine Solution [Edema Assessment] -Right Calf (cm) 24.6 -Right Ankle (cm) 18.5 WC - Nurse 2 - General Ulcer CM Notes Start: 08/19/20 11:09 Freq: Status: Active Protocol: Activity Type Activity Date Activity User E-Sign Co-Sign Detail Recorded Client Recorded Date Recorded By Document 08/19/20 11:32 MW [id number] 08/19/20 11:41 MW 08/19/20 11:32 Wound Center Nurse 2 [Procedure/Treatment] #17- R HEEL -Time 11:32 -Correct Patient Yes -Correct Side, Site, Position Yes -Correct Procedure Yes -Procedure Performed Yes -Type of Procedure Debridement -Clinical Debridement Subcutaneous -Tissue Removed Subcutaneous -Post Debridement (cm) - Length 0.3 -Post Debridement (cm) - Width 0.2 -Post Debridement (cm) - Depth 0.2 -Total Square (Post) (cm) 0.06 -Area of Debridement (cm) - Length 0.3 -Area of Debridement (cm) - Width 0.2 -Total Square (Area) (cm) 0.06 -Tunneling No -Undermining/Tunneling No -Circular Undermining No -Wound/Ulcer Outcome Not Healed -Ulcer Cleansing Rinsed/ Irrigated with Saline -Foul Odor after Cleansing No -Bioengineered Tissue No -Bleeding Controlled with Pressure -Offloading No -Treatment Response Procedure Tolerated Well -Debridement - Subq, 1st 20sq cm Yes [See Physician Procedure note for Specifics] Pain Scale: 0-10 Numeric [Pain] -Is Patient Pain Free? Yes - Nurse 3 - General Ulcer D/C NN Start: 08/19/20 11:09 Freq: Status: Active Protocol: Activity Type Activity Date Activity User E-Sign Co-Sign Detail Recorded Client Recorded Date Recorded By Document 08/19/20 11:41 MW [id number] 08/19/20 11:42 MW 08/19/20 11:41 Wound Care Nurse 3 [Wound Dressing] #17- R HEEL -Ulcer Cleansing Rinsed/ Irrigated with Saline -Foul Odor after Cleansing No -Negative Pressure Wound Therapy N/A -Other Dressing c.hydrogel -Primary Dressing Covered/Secured Dry Gauze & with Roll Gauze, Secured with Tape -Other Covering abd pad [Compression Applied] Right -Lotion applied to leg before No compression wrap -Compression Wrap Leopoldo Wrap [Post Procedure Tolerated] -Treatment Response Procedure Tolerated Well Teaching: Wound Center [Wound Center Education] (Items with an * have Printed Materials Available- Please identify what is given to patient under the Teaching materials given to patient and caregiver Section. Dressing Your Wound -Person Taught Patient -Teaching Method Discussion, Demonstration -Response to teaching Verbalize understanding WC - Visit Discharge [Visit Discharge Information] -Discharge Condition Stable -Ambulatory Status Wheelchair -Transportation Private Auto -Accompanied by daughter -Medication Reconcilliation completed No & provided to patient/care provider -Clinical Summary of Care Provided Yes Psych/Mental Status: Normal Affect, Appropriate Debridement Note Post-Debridement Measurements/Treatment WC - Nurse 2 - General Ulcer CM Notes Start: 08/19/20 11:09 Freq: Status: Active Protocol: Activity Type Activity Date Activity User E-Sign Co-Sign Detail Recorded Client Recorded Date Recorded By Document 08/19/20 11:32 MW [id number] 08/19/20 11:41 MW 08/19/20 11:32 Wound Center Nurse 2 #17- R HEEL -Time 11:32 -Correct Patient Yes -Correct Side, Site, Position Yes -Correct Procedure Yes -Procedure Performed Yes -Type of Procedure Debridement -Clinical Debridement Subcutaneous -Tissue Removed Subcutaneous -Post Debridement (cm) - Length 0.3 -Post Debridement (cm) - Width 0.2 -Post Debridement (cm) - Depth 0.2 -Total Square (Post) (cm) 0.06 -Area of Debridement (cm) - Length 0.3 -Area of Debridement (cm) - Width 0.2 -Total Square (Area) (cm) 0.06 -Tunneling No -Undermining/Tunneling No -Circular Undermining No -Wound/Ulcer Outcome Not Healed -Ulcer Cleansing Rinsed/ Irrigated with Saline -Foul Odor after Cleansing No -Bioengineered Tissue No -Bleeding Controlled with Pressure -Offloading No -Treatment Response Procedure Tolerated Well -Debridement - Subq, 1st 20sq cm Yes Pain Scale: 0-10 Numeric Is Patient Pain Free? Yes WC - Nurse 3 - General Ulcer D/C NN Start: 08/19/20 11:09 Freq: Status: Active Protocol: Activity Type Activity Date Activity User E-Sign Co-Sign Detail Recorded Client Recorded Date Recorded By Document 08/19/20 11:41 MW [id number] 08/19/20 11:42 MW 08/19/20 11:41 Wound Care Nurse 3 #17- R HEEL -Ulcer Cleansing Rinsed/ Irrigated with Saline -Foul Odor after Cleansing No -Negative Pressure Wound Therapy N/A -Other Dressing c.hydrogel -Primary Dressing Covered/Secured with Dry Gauze & Roll Gauze, Secured with Tape -Other Covering abd pad Right -Lotion applied to leg before No compression wrap -Compression Wrap Leopoldo Wrap Treatment Response Procedure Tolerated Well Teaching: Wound Center Dressing Your Wound -Person Taught Patient -Teaching Method Discussion, Demonstration -Response to teaching Verbalize understanding WC - Visit Discharge Discharge Condition Stable Ambulatory Status Wheelchair Transportation Private Auto Accompanied by daughter Medication Reconcilliation completed & No provided to patient/care provider Clinical Summary of Care Provided Yes Wound debrided: right heel Laterality: Right Wound Grade/Stage: Valdez grade 3 Type of Debridement: Excisional debridement Anesthesia Used: 4% Lidocaine Solution Depth: Down to and including healthy tissue, in the subcutaneous layer Percentage of wound debrided: 100 Instrument Used: 3mm curette Tissue Removed: Yellow slough, devitalized tissue Severity: Fat Layer Exposed Amount of bleeding with debridement: Mild Bleeding Controlled with: Compression and gauze Patient tolerated procedure well Assessment/Plan Active Problems Type 2 diabetes mellitus with diabetic polyneuropathy (Chronic) Open wound of right heel (Chronic) Type 2 diabetes, uncontrolled, with ulcer of heel (Chronic) right plantar heel PAD (peripheral artery disease) (Chronic) Type 2 diabetes, controlled, with ulcer of heel (Chronic) Non-healing open wound of heel (Chronic) Assessment: 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 Diabetes mellitus - controlled. Peripheral vascular disease - status post revascularization 08/07/18 and 03/2019 Plan: Demetriuss ulcer was evaluated and debrided today with mild improvement. Will continue to use hydrogel and gauze daily. Encouraged increased protein intake, offloading of his ulcer and optimized glycemic control to promote healing. Encouraged to call with any increase in pain or drainage, fever or ch ills. F/U in 1 week. Discussed if any worsening of symptoms he should go to the emergency department. This note was generated with [employer] dictation software. It may contain incorrect words, spelling, and punctuation that were not noted in checking the note before signing.
[2020-08-26 11:14] VITALS: BP 161/66; PULSE 89; RESP 18; TEMP 36.3; BMI 29.9
--- NOTE | 2020-08-26 11:35 | WC ---
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 pt denies suicidial thoughts.
[2020-08-26 12:13] VITALS: BP 160/68
--- NOTE | 2020-08-26 12:45 | PN.PCM_ITS ---
(1) Type 2 diabetes mellitus with diabetic polyneuropathy Status: Chronic Qualifiers: Diabetes mellitus shelter insulin use: without termite renewal inspector use Code(s): E11.42 - Type 2 diabetes mellitus with diabetic polyneuropathy (2) Open wound of right heel Status: Chronic Qualifiers: Code(s): S91.301A - Unspecified open wound, right foot, initial encounter (3) Type 2 diabetes, uncontrolled, with ulcer of heel Status: Chronic Code(s): E11.621 - Type 2 diabetes mellitus with foot ulcer; E11.65 - Type 2 diabetes mellitus with hyperglycemia; L97.409 - Non-pressure chronic ulcer of unspecified heel and midfoot with unspecified severity Comment: right plantar heel (4) PAD (peripheral artery disease) Status: Chronic Code(s): I73.9 - Peripheral vascular disease, unspecified (5) Type 2 diabetes, controlled, with ulcer of heel Status: Chronic Code(s): E11.621 - Type 2 diabetes mellitus with foot ulcer; L97.409 - Non-pressure chronic ulcer of unspecified heel and midfoot with unspecified severity (6) Non-healing open wound of heel Status: Chronic Qualifiers: Encounter type: subsequent encounter Laterality: right Qualified Code(s): S91.301D - Unspecified open wound, right foot, subsequent encounter Code(s): S91.309A - Unspecified open wound, unspecified foot, initial encounter Type of Wound Date of Service: 08/26/20 Chief Complaint: Nonhealing ulcer right heel, Valdez Grade 3 diabetic ulcer. History of Wound: Gibson is here for evaluation of an ulcer of his right heel. He was recently treated for this same area with [place]in application and was discharged in January 2019. 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 He has been applying Aquacel and gauze to the ulcer. He does follow with Dr. Navas regularly and had a bypass of his right SFA and popliteal arteries in September 2018. He has had procedures for his arterial disease in past to both of his lower extremities. He has tried alternative treatments with supplements and chelation therapy in the past. He also has diabetes and recent A1C was 7.2% He does wear diabetic shoes. He had been undergoing chelation treatments by Dr. German in [place]. He denies fever, chills, erythema or heavy drainage. He reports significant pain and discomfort of his right heel and his entire right leg which no one can explain. In March 2019, he was hospitalized due to occlusion of his bypass graft in his right leg and Dr. Navas was able to open it 50%. He also has blockages in his left leg. Dr. Navas is unable to revascularize either leg at this time and he may ultimately require limb amputation if his vascular disease worsens. December 11, 2019, he was sent to the emergency room with worsening of his ulcer and cellulitis. Dr. Good performed surgical debridement on December 12, 2019 and he was treated with IV antibiotics for over 4 weeks and was in the transitional care unit at [facility] for Rehab and treatment with wound vac. He was discharged on January 23, 2020 to home with continued wound vac treatment. Progress of Wound: Gibson is here to follow up for nonhealing ulcer of his right heel. He has been taking Augmentin that was prescribed for infection but this has not been completed. Wound culture was positive for Staph. Denies increased drainage, warmth, erythema or odor. - Physical Exam Vital Signs Temp Pulse Resp BP 97.3 F L 89 18 160/68 H 08/26/20 11:14 08/26/20 11:14 08/26/20 11:14 08/26/20 12:13 General: Alert, Oriented x3, Cooperative, No apparent distress HEENT: Atraumatic, Normocephalic Oral: Moist Mucosa Abdomen: Soft, Non Tender Extremities: Edema Skin: Ulcer/ Wound Wound Measurements and Assessment - Nurse 1 - General Ulcer Measurement Start: 08/19/20 11:09 Freq: Status: Active Protocol: Activity Type Activity Date Activity User E-Sign Co-Sign Detail Recorded Client Recorded Date Recorded By Document 08/26/20 11:14 RB [id number] 08/26/20 11:16 RB 08/26/20 11:14 Wound Center Nurse 1 [Ulcer Assessment] #17- R HEEL -Combined with other wound No -Current Size (cm) - Length 0.3 -Current Size (cm) - Width 0.2 -Current Size (cm) - Depth 0.2 -Total Square Cm 0.06 -Tunneling No -Undermining/Tunneling No -Circular Undermining No -Exudate Amt Small -Exudate Type Serosanguineous -Wound Margin Thickened & Rolled Under -Granulation Amt Medium (34-66%) -Granulation Quality [place] -Slough/Fibrin Yes -Necrosis Amt Small (1-33%) -Necrotic Tissue Type Adherent Slough -Structure Exposed N/A -Texture (Shahana-wound Skin Appearance) Assessed,Callus ,Scarring -Color (Shahana-wound Skin Appearance) Assessed -Temperature (Shahana-wound Skin No Abnormality Appearance) (Pt Warm) -Tenderness on Palpation (Shahana-wound No Skin Appearance) -Ulcer Cleansing Wound Cleanser -Anesthetic Used 5% Lidocaine Gel WC - Nurse 2 - General Ulcer CM Notes Start: 08/19/20 11:09 Freq: Status: Active Protocol: Activity Type Activity Date Activity User E-Sign Co-Sign Detail Recorded Client Recorded Date Recorded By Document 08/26/20 11:34 MW [id number] 08/26/20 11:47 MW 08/26/20 11:34 Wound Center Nurse 2 [Procedure/Treatment] -Time 11:34 -Correct Patient Yes -Correct Side, Site, Position Yes -Correct Procedure Yes -Procedure Performed Yes -Type of Procedure Debridement -Clinical Debridement Subcutaneous -Tissue Removed Subcutaneous -Post Debridement (cm) - Length 0.3 -Post Debridement (cm) - Width 0.1 -Post Debridement (cm) - Depth 0.1 -Total Square (Post) (cm) 0.03 -Area of Debridement (cm) - Length 0.3 -Area of Debridement (cm) - Width 0.1 -Total Square (Area) (cm) 0.03 -Tunneling No -Undermining/Tunneling No -Circular Undermining No -Wound/Ulcer Outcome Not Healed -Ulcer Cleansing Rinsed/ Irrigated with Saline -Foul Odor after Cleansing No -Bioengineered Tissue No -Bleeding Controlled with Pressure -Offloading No -Treatment Response Procedure Tolerated Well -Debridement - Subq, 1st 20sq cm Yes [See Physician Procedure note for Specifics] Pain Scale: 0-10 Numeric [Pain] -Is Patient Pain Free? Yes ITALO - Nurse 3 - General Ulcer D/C NN Start: 08/19/20 11:09 Freq: Status: Active Protocol: Activity Type Activity Date Activity User E-Sign Co-Sign Detail Recorded Client Recorded Date Recorded By Document 08/26/20 12:13 RB [id number] 08/26/20 12:14 RB 08/26/20 12:13 Wound Care Nurse 3 [Wound Dressing] #17- R HEEL -Ulcer Cleansing Wound Cleanser -Primary Dressing Applied NonAdherent Contact Layer -Other Dressing HYDROGEL -Primary Dressing Covered/Secured Dry Gauze,Dry with Gauze & Roll Gauze,Secured with Tape -Other Covering ABD NURSES HAT [Post Procedure Tolerated] -Treatment Response Procedure Tolerated Well Vital Signs [Blood Pressure] -Blood Pressure (90/60-120/80) 160/68 H -Blood Pressure Mean (mm Hg) 98 -Source Monitor -Position Sitting -Blood Pressure Location Left Arm Pain Scale: 0-10 Numeric [Pain] -Is Patient Pain Free? Yes Teaching: Wound Center [Wound Center Education] (Items with an * have Printed Materials Available- Please identify what is given to patient under the Teaching materials given to patient and caregiver Section. Eliminating Foot Pressure -Person Taught Patient -Teaching Method Discussion -Response to teaching Reinforcement needed Dressing Your Wound -Person Taught Patient,Family -Teaching Method Discussion, Demonstration -Response to teaching Verbalize understanding WC - Visit Discharge [Visit Discharge Information] -Discharge Condition Stable -Ambulatory Status Wheelchair -Transportation Private Auto -Accompanied by -Medication Reconcilliation completed No & provided to patient/care provider -Clinical Summary of Care Provided Yes Psych/Mental Status: Normal Affect, Appropriate Debridement Note Post-Debridement Measurements/Treatment WC - Nurse 2 - General Ulcer CM Notes Start: 08/19/20 11:09 Freq: Status: Active Protocol: Activity Type Activity Date Activity User E-Sign Co-Sign Detail Recorded Client Recorded Date Recorded By Document 08/19/20 11:32 MW [id number] 08/19/20 11:41 MW Document 08/26/20 11:34 MW [id number] 08/26/20 11:47 MW 08/19/20 08/26/20 11:32 11:34 Wound Center Nurse 2 #17- R HEEL -Time 11:32 11:34 -Correct Patient Yes Yes -Correct Side, Site, Position Yes Yes -Correct Procedure Yes Yes -Procedure Performed Yes Yes -Type of Procedure Debridement Debridement -Clinical Debridement Subcutaneous Subcutaneous -Tissue Removed Subcutaneous Subcutaneous -Post Debridement (cm) - Length 0.3 0.3 -Post Debridement (cm) - Width 0.2 0.1 -Post Debridement (cm) - Depth 0.2 0.1 -Total Square (Post) (cm) 0.06 0.03 -Area of Debridement (cm) - Length 0.3 0.3 -Area of Debridement (cm) - Width 0.2 0.1 -Total Square (Area) (cm) 0.06 0.03 -Tunneling No No -Undermining/Tunneling No No -Circular Undermining No No -Wound/Ulcer Outcome Not Healed Not Healed -Ulcer Cleansing Rinsed/ Rinsed/ Irrigated with Irrigated with Saline Saline -Foul Odor after Cleansing No No -Bioengineered Tissue No No -Bleeding Controlled with Pressure Pressure -Offloading No No -Treatment Response Procedure Procedure Tolerated Well Tolerated Well -Debridement - Subq, 1st 20sq cm Yes Yes Pain Scale: 0-10 Numeric Is Patient Pain Free? Yes Yes - Nurse 3 - General Ulcer D/C NN Start: 08/19/20 11:09 Freq: Status: Active Protocol: Activity Type Activity Date Activity User E-Sign Co-Sign Detail Recorded Client Recorded Date Recorded By Document 08/19/20 11:41 MW [id number] 08/19/20 11:42 MW Document 08/26/20 12:13 RB [id number] 08/26/20 12:14 RB 08/19/20 08/26/20 11:41 12:13 Wound Care Nurse 3 #17- R HEEL -Ulcer Cleansing Rinsed/ Wound Cleanser Irrigated with Saline -Foul Odor after Cleansing No -Negative Pressure Wound Therapy N/A -Primary Dressing Applied NonAdherent Contact Layer -Other Dressing c.hydrogel HYDROGEL -Primary Dressing Covered/Secured with Dry Gauze & Dry Gauze,Dry Roll Gauze, Gauze & Roll Secured with Gauze,Secured Tape with Tape -Other Covering abd pad ABD NURSES HAT Right -Lotion applied to leg before No compression wrap -Compression Wrap Leopoldo Wrap Treatment Response Procedure Procedure Tolerated Well Tolerated Well Vital Signs Blood Pressure (90/60-120/80) 160/68 H Blood Pressure Mean (mm Hg) 98 Source Monitor Position Sitting Blood Pressure Location Left Arm Pain Scale: 0-10 Numeric Is Patient Pain Free? Yes Teaching: Wound Center Eliminating Foot Pressure -Person Taught Patient -Teaching Method Discussion -Response to teaching Reinforcement needed Dressing Your Wound -Person Taught Patient Patient,Family -Teaching Method Discussion, Discussion, Demonstration Demonstration -Response to teaching Verbalize Verbalize understanding understanding WC - Visit Discharge Discharge Condition Stable Stable Ambulatory Status Wheelchair Wheelchair Transportation Private Auto Private Auto Accompanied by daughter Medication Reconcilliation completed & No No provided to patient/care provider Clinical Summary of Care Provided Yes Yes Wound debrided: right heel Laterality: Right Wound Grade/Stage: Valdez grade 3 Type of Debridement: Excisional debridement Anesthesia Used: 4% Lidocaine Solution, 5% Lidocaine Gel Depth: Down to and including healthy tissue, in the subcutaneous layer Percentage of wound debrided: 100 Instrument Used: 3mm curette Tissue Removed: Yellow slough, devitalized tissue Severity: Fat Layer Exposed Amount of bleeding with debridement: Mild Bleeding Controlled with: Compression and gauze Patient tolerated procedure well Assessment/Plan Active Problems Type 2 diabetes mellitus with diabetic polyneuropathy (Chronic) Open wound of right heel (Chronic) Type 2 diabetes, uncontrolled, with ulcer of heel (Chronic) right plantar heel PAD (peripheral artery disease) (Chronic) Type 2 diabetes, controlled, with ulcer of heel (Chronic) Non-healing open wound of heel (Chronic) Assessment: 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 Diabetes me llitus - controlled. Peripheral vascular disease - status post revascularization 08/07/18 and 03/2019 Plan: Gibson's ulcer was evaluated and debrided today with mild improvement. Will continue to use hydrogel, adaptic and gauze daily. Encouraged increased protein intake, offloading of his ulcer and optimized glycemic control to promote healing. Encouraged to call with any increase in pain or drainage, fever or chills. F/U in 1 week. Discussed if any worsening of symptoms he should go to the emergency department. This note was generated with [employer] dictation software. It may contain incorrect words, spelling, and punctuation that were not noted in checking the note before signing.
[2020-09-02 11:06] VITALS: BP 168/91; PULSE 96; RESP 18; TEMP 36.3; BMI 29.9
--- NOTE | 2020-09-02 14:38 | PN.PCM_ITS ---
(1) Type 2 diabetes mellitus with diabetic polyneuropathy Status: Chronic Qualifiers: Diabetes mellitus nursing home insulin use: without gas engine mechanic use Code(s): E11.42 - Type 2 diabetes mellitus with diabetic polyneuropathy (2) Open wound of right heel Status: Chronic Qualifiers: Encounter type: subsequent encounter Code(s): S91.301A - Unspecified open wound, right foot, initial encounter (3) Type 2 diabetes, uncontrolled, with ulcer of heel Status: Chronic Code(s): E11.621 - Type 2 diabetes mellitus with foot ulcer; E11.65 - Type 2 diabetes mellitus with hyperglycemia; L97.409 - Non-pressure chronic ulcer of unspecified heel and midfoot with unspecified severity Comment: right plantar heel (4) PAD (peripheral artery disease) Status: Chronic Code(s): I73.9 - Peripheral vascular disease, unspecified (5) Type 2 diabetes, controlled, with ulcer of heel Status: Chronic Code(s): E11.621 - Type 2 diabetes mellitus with foot ulcer; L97.409 - Non-pressure chronic ulcer of unspecified heel and midfoot with unspecified severity (6) Non-healing open wound of heel Status: Chronic Qualifiers: Encounter type: subsequent encounter Laterality: right Qualified Code(s): S91.301D - Unspecified open wound, right foot, subsequent encounter Code(s): S91.309A - Unspecified open wound, unspecified foot, initial encounter Type of Wound Date of Service: 09/02/20 Chief Complaint: Nonhealing ulcer right heel, [place] Grade 3 diabetic ulcer. History of Wound: Gibson is here for evaluation of an ulcer of his right heel. He was recently treated for this same area with Ther[place]in application and was discharged in January 2019. He had noticed increased pain in his heel in March and his noted that the area had opened after his dental technician had debrided some callus from the area. He has been applying Aquacel and gauze to the ulcer. He does follow with Dr. Navas regularly and had a bypass of his right SFA and p opliteal arteries in September 2018. He has had procedures for his arterial disease in past to both of his lower extremities. He has tried alternative treatments with supplements and chelation therapy in the past. He also has diabetes and recent A1C was 7.2% He does wear diabetic shoes. He had been undergoing chelation treatments by Dr. German in [place]. He denies fever, chills, erythema or heavy drainage. He reports significant pain and discomfort of his right heel and his entire right leg which no one can explain. In March 2019, he was hospitalized due to occlusion of his bypass graft in his right leg and Dr. Navas was able to open it 50%. He also has blockages in his left leg. Dr. Navas is unable to revascularize either leg at this time and he may ultimately require limb amputation if his vascular disease worsens. December 11, 2019, he was sent to the emergency room with worsening of his ulcer and cellulitis. Dr. Good performed surgical debridement on December 12, 2019 and he was treated with IV antibiotics for over 4 weeks and was in the transitional care unit at [facility] for Rehab and treatment with wound vac. He was discharged on January 23, 2020 to home with continued wound vac treatment. Progress of Wound: Gibson is here to follow up for nonhealing ulcer of his right heel. He has had improvement in his ulcer. Denies increased drainage, warmth, erythema or odor. - Physical Exam Vital Signs Temp Pulse Resp BP 97.4 F L 96 18 168/91 H 09/02/20 11:06 09/02/20 11:06 09/02/20 11:06 09/02/20 11:06 General: Alert, Oriented x3, Cooperative, No apparent distress HEENT: Atraumatic, Normocephalic Oral: Moist Mucosa Abdomen: Soft, Non Tender Skin: Ulcer/ Wound Wound Measurements and Assessment - Nurse 1 - General Ulcer Measurement Start: 08/19/20 11:09 Freq: Status: Active Protocol: Activity Type Activity Date Activity User E-Sign Co-Sign Detail Recorded Client Recorded Date Recorded By Document 09/02/20 11:06 [facility] [id number] 09/02/20 11:16 [facility] 09/02/20 11:06 Wound Center Nurse 1 [Ulcer Assessment] #17- R HEEL -Combined with other wound No -Current Size (cm) - Length 0.1 -Current Size (cm) - Width 0.1 -Current Size (cm) - Depth 0.1 -Total Square Cm 0.01 -Photo Taken No -Epithelialization Medium 34-66% -Tunneling No -Undermining/Tunneling No -Circular Undermining No -Exudate Amt None Present -Wound Margin Distinct, Outline Attached -Granulation Amt None Present (0 %) -Slough/Fibrin Yes -Necrosis Amt Small (1-33%) -Necrotic Tissue Type Eschar -Texture (Shahana-wound Skin Appearance) Assessed, Scarring -Moisture (Shahana-wound Skin Appearance Assessed ) -Color (Shahana-wound Skin Appearance) Assessed -Temperature (Shahana-wound Skin No Abnormality Appearance) (Pt Warm) -Tenderness on Palpation (Shahana-wound No Skin Appearance) -Ulcer Cleansing Rinsed/ Irrigated with Saline -Foul Odor after Cleansing No -Anesthetic Used 5% Lidocaine Gel [Edema Assessment] -Lower Limb Edema Present Yes -Right Calf (cm) 26.2 -Right Ankle (cm) 18 WC - Nurse 2 - General Ulcer CM Notes Start: 08/19/20 11:09 Freq: Status: Active Protocol: Activity Type Activity Date Activity User E-Sign Co-Sign Detail Recorded Client Recorded Date Recorded By Document 09/02/20 11:56 MW [id number] 09/02/20 12:11 MW 09/02/20 11:56 Wound Center Nurse 2 [Procedure/Treatment] #17- R HEEL -Time 11:56 -Correct Patient Yes -Correct Side, Site, Position Yes -Correct Procedure Yes -Procedure Performed Yes -Type of Procedure Debridement -Clinical Debridement Subcutaneous -Tissue Removed Subcutaneous -Post Debridement (cm) - Length 0.3 -Post Debridement (cm) - Width 0.1 -Post Debridement (cm) - Depth 0.1 -Total Square (Post) (cm) 0.03 -Area of Debridement (cm) - Length 0.3 -Area of Debridement (cm) - Width 0.1 -Total Square (Area) (cm) 0.03 -Tunneling No -Undermining/Tunneling No -Circular Undermining No -Wound/Ulcer Outcome Not Healed -Ulcer Cleansing Rinsed/ Irrigated with Saline -Foul Odor after Cleansing No -Bioengineered Tissue No -Bleeding Controlled with Pressure -Offloading No -Treatment Response Procedure Tolerated Well -Debridement - Subq, 1st 20sq cm Yes [See Physician Procedure note for Specifics] Pain Scale: 0-10 Numeric [Pain] -Is Patient Pain Free? Yes - Nurse 3 - General Ulcer D/C NN Start: 08/19/20 11:09 Freq: Status: Active Protocol: Activity Type Activity Date Activity User E-Sign Co-Sign Detail Recorded Client Recorded Date Recorded By Document 09/02/20 12:17 KR [id number] 09/02/20 12:18 KR 09/02/20 12:17 Wound Care Nurse 3 [Wound Dressing] #17- R HEEL -Primary Dressing Applied C Hydrogel ($), NonAdherent Contact Layer -Primary Dressing Covered/Secured Dry Gauze,Dry with Gauze & Roll Gauze,Secured with Tape Pain Scale: 0-10 Numeric [Pain] -Is Patient Pain Free? Yes WC - Visit Discharge [Visit Discharge Information] -Discharge Condition Stable -Ambulatory Status Ambulatory -Transportation Private Auto -Accompanied by Psych/Mental Status: Normal Affect, Appropriate Debridement Note Post-Debridement Measurements/Treatment WC - Nurse 2 - General Ulcer CM Notes Start: 08/19/20 11:09 Freq: Status: Active Protocol: Activity Type Activity Date Activity User E-Sign Co-Sign Detail Recorded Client Recorded Date Recorded By Document 08/19/20 11:32 MW [id number] 08/19/20 11:41 MW Document 08/26/20 11:34 MW [id number] 08/26/20 11:47 MW Document 09/02/20 11:56 MW [id number] 09/02/20 12:11 MW 08/19/20 08/26/20 09/02/20 11:32 11:34 11:56 Wound Center Nurse 2 #17- R HEEL -Time 11:32 11:34 11:56 -Correct Patient Yes Yes Yes -Correct Side, Site, Position Yes Yes Yes -Correct Procedure Yes Yes Yes -Procedure Performed Yes Yes Yes -Type of Procedure Debridement Debridement Debridement -Clinical Debridement Subcutaneous Subcutaneous Subcutaneous -Tissue Removed Subcutaneous Subcutaneous Subcutaneous -Post Debridement (cm) - Length 0.3 0.3 0.3 -Post Debridement (cm) - Width 0.2 0.1 0.1 -Post Debridement (cm) - Depth 0.2 0.1 0.1 -Total Square (Post) (cm) 0.06 0.03 0.03 -Area of Debridement (cm) - Length 0.3 0.3 0.3 -Area of Debridement (cm) - Width 0.2 0.1 0.1 -Total Square (Area) (cm) 0.06 0.03 0.03 -Tunneling No No No -Undermining/Tunneling No No No -Circular Undermining No No No -Wound/Ulcer Outcome Not Healed Not Healed Not Healed -Ulcer Cleansing Rinsed/ Rinsed/ Rinsed/ Irrigated with Irrigated with Irrigated with Saline Saline Saline -Foul Odor after Cleansing No No No -Bioengineered Tissue No No No -Bleeding Controlled with Pressure Pressure Pressure -Offloading No No No -Treatment Response Procedure Procedure Procedure Tolerated Well Tolerated Well Tolerated Well -Debridement - Subq, 1st 20sq cm Yes Yes Yes Pain Scale: 0-10 Numeric Is Patient Pain Free? Yes Yes Yes - Nurse 3 - General Ulcer D/C NN Start: 08/19/20 11:09 Freq: Status: Active Protocol: Activity Type Activity Date Activity User E-Sign Co-Sign Detail Recorded Client Recorded Date Recorded By Document 08/19/20 11:41 MW [id number] 08/19/20 11:42 MW Document 08/26/20 12:13 RB [id number] 08/26/20 12:14 RB Document 09/02/20 12:17 KR [id number] 09/02/20 12:18 KR 08/19/20 08/26/20 09/02/20 11:41 12:13 12:17 Wound Care Nurse 3 #17- R HEEL -Ulcer Cleansing Rinsed/ Wound Cleanser Irrigated with Saline -Foul Odor after Cleansing No -Negative Pressure Wound Therapy N/A -Primary Dressing Applied NonAdherent C Hydrogel ($), Contact Layer NonAdherent Contact Layer -Other Dressing c.hydrogel HYDROGEL -Primary Dressing Covered/Secured with Dry Gauze & Dry Gauze,Dry Dry Gauze,Dry Roll Gauze, Gauze & Roll Gauze & Roll Secured with Gauze,Secured Gauze,Secured Tape with Tape with Tape -Other Covering abd pad ABD NURSES HAT Right -Lotion applied to leg before No compression wrap -Compression Wrap Leopoldo Wrap Treatment Response Procedure Procedure Tolerated Well Tolerated Well Vital Signs Blood Pressure (90/60-120/80) 160/68 H Blood Pressure Mean (mm Hg) 98 Source Monitor Position Sitting Blood Pressure Location Left Arm Pain Scale: 0-10 Numeric Is Patient Pain Free? Yes Yes Teaching: Wound Center Eliminating Foot Pressure -Person Taught Patient -Teaching Method Discussion -Response to teaching Reinforcement needed Dressing Your Wound -Person Taught Patient Patient,Family -Teaching Method Discussion, Discussion, Demonstration Demonstration -Response to teaching Verbalize Verbalize understanding understanding WC - Visit Discharge Discharge Condition Stable Stable Stable Ambulatory Status Wheelchair Wheelchair Ambulatory Transportation Private Auto Private Auto Private Auto Accompanied by daughter Medication Reconcilliation completed & No No provided to patient/care provider Clinical Summary of Care Provided Yes Yes Wound debrided: right heel Laterality: Right Wound Grade/Stage: Grade 3 Type of Debridement: Excisional debridement Anesthesia Used: 4% Lidocaine Solution Depth: Down to and including healthy tissue, in the subcutaneous layer Percentage of wound debrided: 100 Instrument Used: 3mm curette Tissue Removed: Yellow slough, devitalized tissue Severity: Fat Layer Exposed Amount of bleeding with debridement: Mild Bleeding Controlled with: Compression and gauze Patient tolerated procedure well Assessment/Plan Active Problems Type 2 diabetes mellitus with diabetic polyneuropathy (Chronic) Open wound of right heel (Chronic) Type 2 diabetes, uncontrolled, with ulcer of heel (Chronic) right plantar heel PAD (peripheral artery disease) (Chronic) Type 2 diabetes, controlled, with ulcer of heel (Chronic) Non-healing open wound of heel (Chronic) Assessment: 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 Diabetes mellitus - controlled. Peripheral vascular disease - status post revascularization 08/07/18 and 03/2019 Plan: Gibson's ulcer was evaluated and debrided today with mild improvement. Will continue to use hydrogel, adaptic and gauze daily. Encouraged increased protein intake, offloading of his ulcer and optimized glycemic control to promote healing. Encouraged to call with any increase in pain or drainage, fever or chills. F/U in 1 week. Discussed if any worsening of symptoms he should go to the emergency department. This note was generated with [employer] software. It may contain incorrect words, spelling, and punctuation that were not noted in checking the note before signing.
[2020-09-09 11:52] VITALS: BP 143/81; PULSE 90; RESP 18; TEMP 36.4; BMI 29.9
--- NOTE | 2020-09-09 13:24 | PN.PCM_ITS ---
(1) Type 2 diabetes mellitus with diabetic polyneuropathy Status: Chronic Qualifiers: Diabetes mellitus longterm insulin use: without terminal manager use Code(s): E11.42 - Type 2 diabetes mellitus with diabetic polyneuropathy (2) Open wound of right heel Status: Chronic Qualifiers: Encounter type: subsequent encounter Code(s): S91.301A - Unspecified open wound, right foot, initial encounter (3) Type 2 diabetes, uncontrolled, with ulcer of heel Status: Chronic Code(s): E11.621 - Type 2 diabetes mellitus with foot ulcer; E11.65 - Type 2 diabetes mellitus with hyperglycemia; L97.409 - Non-pressure chronic ulcer of unspecified heel and midfoot with unspecified severity Comment: right plantar heel (4) PAD (peripheral artery disease) Status: Chronic Code(s): I73.9 - Peripheral vascular disease, unspecified (5) Type 2 diabetes, controlled, with ulcer of heel Status: Chronic Code(s): E11.621 - Type 2 diabetes mellitus with foot ulcer; L97.409 - Non-pressure chronic ulcer of unspecified heel and midfoot with unspecified severity (6) Non-healing open wound of heel Status: Chronic Qualifiers: Encounter type: subsequent encounter Laterality: right Qualified Code(s): S91.301D - Unspecified open wound, right foot, subsequent encounter Code(s): S91.309A - Unspecified open wound, unspecified foot, initial encounter Type of Wound Date of Service: 09/09/20 Chief Complaint: Nonhealing ulcer right heel, [place] Grade 3 diabetic ulcer. History of Wound: Gibson is here for evaluation of an ulcer of his right heel. He was recently treated for this same area with [place] application and was discharged in January 2019. 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 He has been applying Aquacel and gauze to the ulcer. He does follow with Dr. Navas regularly and had a bypass of his right SFA and p opliteal arteries in September 2018. He has had procedures for his arterial disease in past to both of his lower extremities. He has tried alternative treatments with supplements and chelation therapy in the past. He also has diabetes and recent A1C was 7.2% He does wear diabetic shoes. He had been undergoing chelation treatments by Dr. German in [place]. He denies fever, chills, erythema or heavy drainage. He reports significant pain and discomfort of his right heel and his entire right leg which no one can explain. In March 2019, he was hospitalized due to occlusion of his bypass graft in his right leg and Dr. Navas was able to open it 50%. He also has blockages in his left leg. Dr. Navas is unable to revascularize either leg at this time and he may ultimately require limb amputation if his vascular disease worsens. December 11, 2019, he was sent to the emergency room with worsening of his ulcer and cellulitis. Dr. Good performed surgical debridement on December 12, 2019 and he was treated with IV antibiotics for over 4 weeks and was in the transitional care unit at [facility] for Rehab and treatment with wound vac. He was discharged on January 23, 2020 to home with continued wound vac treatment. Progress of Wound: Gibson is here to follow up for nonhealing ulcer of his right heel. He has had improvement in his ulcer. Denies increased drainage, warmth, erythema or odor. - Physical Exam Vital Signs Temp Pulse Resp BP 97.5 F L 90 18 143/81 H 09/09/20 11:52 09/09/20 11:52 09/09/20 11:52 09/09/20 11:52 General: Alert, Oriented x3, Cooperative, No apparent distress HEENT: Atraumatic, Normocephalic Oral: Moist Mucosa Lungs: Clear to auscultation Cardiovascular: Regular rate, Regular Rhythm Abdomen: Soft, Non Tender Extremities: No edema Skin: Ulcer/ Wound Wound Measurements and Assessment - Nurse 1 - General Ulcer Measurement Start: 08/19/20 11:09 Freq: Status: Active Protocol: Activity Type Activity Date Activity User E-Sign Co-Sign Detail Recorded Client Recorded Date Recorded By Document 09/09/20 11:52 RB [id number] 09/09/20 11:53 RB 09/09/20 11:52 Wound Center Nurse 1 [Ulcer Assessment] #17- R HEEL -Combined with other wound No -Current Size (cm) - Length 0.1 -Current Size (cm) - Width 0.1 -Current Size (cm) - Depth 0.1 -Total Square Cm 0.01 -Photo Taken No -Tunneling No -Undermining/Tunneling No -Circular Undermining No -Exudate Amt Small -Exudate Type Serosanguineous -Wound Margin Thickened -Granulation Amt Small (1-33%) -Granulation Quality [place],Red -Slough/Fibrin Yes -Necrosis Amt Medium (34-66%) -Necrotic Tissue Type Adherent Slough -Structure Exposed N/A -Texture (Shahana-wound Skin Appearance) Assessed,Callus -Moisture (Shahana-wound Skin Appearance Assessed ) -Color (Shahana-wound Skin Appearance) Assessed -Temperature (Shahana-wound Skin No Abnormality Appearance) (Pt Warm) -Tenderness on Palpation (Shahana-wound No Skin Appearance) -Ulcer Cleansing Wound Cleanser -Foul Odor after Cleansing No -Anesthetic Used 5% Lidocaine Gel WC - Nurse 2 - General Ulcer CM Notes Start: 08/19/20 11:09 Freq: Status: Active Protocol: Activity Type Activity Date Activity User E-Sign Co-Sign Detail Recorded Client Recorded Date Recorded By Document 09/09/20 12:02 MW [id number] 09/09/20 12:14 MW 09/09/20 12:02 Wound Center Nurse 2 [Procedure/Treatment] -Time 12:02 -Correct Patient Yes -Correct Side, Site, Position Yes -Correct Procedure Yes -Procedure Performed Yes -Type of Procedure Debridement -Clinical Debridement Subcutaneous -Tissue Removed Subcutaneous -Post Debridement (cm) - Length 0.2 -Post Debridement (cm) - Width 0.1 -Post Debridement (cm) - Depth 0.1 -Total Square (Post) (cm) 0.02 -Area of Debridement (cm) - Length 0.2 -Area of Debridement (cm) - Width 0.1 -Total Square (Area) (cm) 0.02 -Tunneling No -Undermining/Tunneling No -Circular Undermining No -Wound/Ulcer Outcome Not Healed -Ulcer Cleansing Rinsed/ Irrigated with Saline -Foul Odor after Cleansing No -Bioengineered Tissue No -Bleeding Controlled with Pressure -Offloading No -Treatment Response Procedure Tolerated Well -Debridement - Subq, 1st 20sq cm Yes [See Physician Procedure note for Specifics] Pain Scale: 0-10 Numeric [Pain] -Is Patient Pain Free? Yes ITALO - Nurse 3 - General Ulcer D/C NN Start: 08/19/20 11:09 Freq: Status: Active Protocol: Activity Type Activity Date Activity User E-Sign Co-Sign Detail Recorded Client Recorded Date Recorded By Document 09/09/20 12:15 MW [id number] 09/09/20 12:16 MW 09/09/20 12:15 Wound Care Nurse 3 [Wound Dressing] #17- R HEEL -Ulcer Cleansing Rinsed/ Irrigated with Saline -Foul Odor after Cleansing No -Negative Pressure Wound Therapy N/A -Primary Dressing Applied NonAdherent Contact Layer -Other Dressing c.hydrogel -Primary Dressing Covered/Secured Dry Gauze & with Roll Gauze, Secured with Tape -Other Covering abd [Compression Applied] Right -Lotion applied to leg before No compression wrap -Compression Wrap Leopoldo Wrap [Post Procedure Tolerated] -Treatment Response Procedure Tolerated Well Teaching: Wound Center [Wound Center Education] (Items with an * have Printed Materials Available- Please identify what is given to patient under the Teaching materials given to patient and caregiver Section. Dressing Your Wound -Person Taught Patient,Family -Teaching Method Discussion, Demonstration -Response to teaching Verbalize understanding WC - Visit Discharge [Visit Discharge Information] -Discharge Condition Stable -Ambulatory Status Wheelchair -Transportation Private Auto -Accompanied by -Medication Reconcilliation completed No & provided to patient/care provider -Clinical Summary of Care Provided Yes Psych/Mental Status: Normal Affect, Appropriate Debridement Note Post-Debridement Measurements/Treatment WC - Nurse 2 - General Ulcer CM Notes Start: 08/19/20 11:09 Freq: Status: Active Protocol: Activity Type Activity Date Activity User E-Sign Co-Sign Detail Recorded Client Recorded Date Recorded By Document 08/19/20 11:32 MW [id number] 08/19/20 11:41 MW Document 08/26/20 11:34 MW [id number] 08/26/20 11:47 MW Document 09/02/20 11:56 MW [id number] 09/02/20 12:11 MW Document 09/09/20 12:02 MW [id number] 09/09/20 12:14 MW 08/19/20 08/26/20 09/02/20 11:32 11:34 11:56 Wound Center Nurse 2 #17- R HEEL -Time 11:32 11:34 11:56 -Correct Patient Yes Yes Yes -Correct Side, Site, Position Yes Yes Yes -Correct Procedure Yes Yes Yes -Procedure Performed Yes Yes Yes -Type of Procedure Debridement Debridement Debridement -Clinical Debridement Subcutaneous Subcutaneous Subcutaneous -Tissue Removed Subcutaneous Subcutaneous Subcutaneous -Post Debridement (cm) - Length 0.3 0.3 0.3 -Post Debridement (cm) - Width 0.2 0.1 0.1 -Post Debridement (cm) - Depth 0.2 0.1 0.1 -Total Square (Post) (cm) 0.06 0.03 0.03 -Area of Debridement (cm) - Length 0.3 0.3 0.3 -Area of Debridement (cm) - Width 0.2 0.1 0.1 -Total Square (Area) (cm) 0.06 0.03 0.03 -Tunneling No No No -Undermining/Tunneling No No No -Circular Undermining No No No -Wound/Ulcer Outcome Not Healed Not Healed Not Healed -Ulcer Cleansing Rinsed/ Rinsed/ Rinsed/ Irrigated with Irrigated with Irrigated with Saline Saline Saline -Foul Odor after Cleansing No No No -Bioengineered Tissue No No No -Bleeding Controlled with Pressure Pressure Pressure -Offloading No No No -Treatment Response Procedure Procedure Procedure Tolerated Well Tolerated Well Tolerated Well -Debridement - Subq, 1st 20sq cm Yes Yes Yes Pain Scale: 0-10 Numeric Is Patient Pain Free? Yes Yes Yes 09/09/20 12:02 Wound Center Nurse 2 #17- R HEEL -Time 12:02 -Correct Patient Yes -Correct Side, Site, Position Yes -Correct Procedure Yes -Procedure Performed Yes -Type of Procedure Debridement -Clinical Debridement Subcutaneous -Tissue Removed Subcutaneous -Post Debridement (cm) - Length 0.2 -Post Debridement (cm) - Width 0.1 -Post Debridement (cm) - Depth 0.1 -Total Square (Post) (cm) 0.02 -Area of Debridement (cm) - Length 0.2 -Area of Debridement (cm) - Width 0.1 -Total Square (Area) (cm) 0.02 -Tunneling No -Undermining/Tunneling No -Circular Undermining No -Wound/Ulcer Outcome Not Healed -Ulcer Cleansing Rinsed/ Irrigated with Saline -Foul Odor after Cleansing No -Bioengineered Tissue No -Bleeding Controlled with Pressure -Offloading No -Treatment Response Procedure Tolerated Well -Debridement - Subq, 1st 20sq cm Yes Pain Scale: 0-10 Numeric Is Patient Pain Free? Yes WC - Nurse 3 - General Ulcer D/C NN Start: 08/19/20 11:09 Freq: Status: Active Protocol: Activity Type Activity Date Activity User E-Sign Co-Sign Detail Recorded Client Recorded Date Recorded By Document 08/19/20 11:41 MW [id number] 08/19/20 11:42 MW Document 08/26/20 12:13 RB [id number] 08/26/20 12:14 RB Document 09/02/20 12:17 KR [id number] 09/02/20 12:18 KR Document 09/09/20 12:15 MW [id number] 09/09/20 12:16 MW 08/19/20 08/26/20 09/02/20 11:41 12:13 12:17 Wound Care Nurse 3 #17- R HEEL -Ulcer Cleansing Rinsed/ Wound Cleanser Irrigated with Saline -Foul Odor after Cleansing No -Negative Pressure Wound Therapy N/A -Primary Dressing Applied NonAdherent C Hydrogel ($), Contact Layer NonAdherent Contact Layer -Other Dressing c.hydrogel HYDROGEL -Primary Dressing Covered/Secured with Dry Gauze & Dry Gauze,Dry Dry Gauze,Dry Roll Gauze, Gauze & Roll Gauze & Roll Secured with Gauze,Secured Gauze,Secured Tape with Tape with Tape -Other Covering abd pad ABD NURSES HAT Right -Lotion applied to leg before No compression wrap -Compression Wrap Leopoldo Wrap Treatment Response Procedure Procedure Tolerated Well Tolerated Well Vital Signs Blood Pressure (90/60-120/80) 160/68 H Blood Pressure Mean (mm Hg) 98 Source Monitor Position Sitting Blood Pressure Location Left Arm Pain Scale: 0-10 Numeric Is Patient Pain Free? Yes Yes Teaching: Wound Center Eliminating Foot Pressure -Person Taught Patient -Teaching Method Discussion -Response to teaching Reinforcement needed Dressing Your Wound -Person Taught Patient Patient,Family -Teaching Method Discussion, Discussion, Demonstration Demonstration -Response to teaching Verbalize Verbalize understanding understanding WC - Visit Discharge Discharge Condition Stable Stable Stable Ambulatory Status Wheelchair Wheelchair Ambulatory Transportation Private Auto Private Auto Private Auto Accompanied by daughter Medication Reconcilliation completed & No No provided to patient/care provider Clinical Summary of Care Provided Yes Yes 09/09/20 12:15 Wound Care Nurse 3 #17- R HEEL -Ulcer Cleansing Rinsed/ Irrigated with Saline -Foul Odor after Cleansing No -Negative Pressure Wound Therapy N/A -Primary Dressing Applied NonAdherent Contact Layer -Other Dressing c.hydrogel -Primary Dressing Covered/Secured with Dry Gauze & Roll Gauze, Secured with Tape -Other Covering abd Right -Lotion applied to leg before No compression wrap -Compression Wrap Leopoldo Wrap Treatment Response Procedure Tolerated Well Vital Signs Blood Pressure (90/60-120/80) Blood Pressure Mean (mm Hg) Source Position Blood Pressure Location Pain Scale: 0-10 Numeric Is Patient Pain Free? Teaching: Wound Center Eliminating Foot Pressure -Person Taught -Teaching Method -Response to teaching Dressing Your Wound -Person Taught Patient,Family -Teaching Method Discussion, Demonstration -Response to teaching Verbalize understanding WC - Visit Discharge Discharge Condition Stable Ambulatory Status Wheelchair Transportation Private Auto Accompanied by Medication Reconcilliation completed & No provided to patient/care provider Clinical Summary of Care Provided Yes Wound debrided: right heel Laterality: Right Wound Grade/Stage: Grade 3 Type of Debridement: Excisional debridement Anesthesia Used: 4% Lidocaine Solution, 5% Lidocaine Gel Depth: Down to and including healthy tissue, in the subcutaneous layer Percentage of wound debrided: 100 Instrument Used: 3mm curette Tissue Removed: Yellow slough, devitalized tissue Severity: Fat Layer Exposed Amount of bleeding with debridement: Mild Bleeding Controlled with: Compression and gauze Patient tolerated procedure well Assessment/Plan Active Problems Type 2 diabetes mellitus with diabetic polyneuropathy (Chronic) Open wound of right heel (Chronic) Type 2 diabetes, uncontrolled, with ulcer of heel (Chronic) right plantar heel PAD (peripheral artery disease) (Chronic) Type 2 diabetes, controlled, with ulcer of heel (Chronic) Non-healing open wound of heel (Chronic) Assessment: 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 Diabetes mellitus - controlled. Peripheral vascular disease - status post revascularization 08/07/18 and 03/2019 Plan: Demetriuss ulcer was evaluated and debrided today with mild improvement. Will continue to use hydrogel, adaptic and gauze daily. Encouraged increased protein intake, offloading of his ulcer and optimized glycemic control to promote healing. Encouraged to call with any increase in pain or drainage, fever or chills. F/U in 1 week. Discussed if any worsening of symptoms he should go to the emergency department. This note was generated with [employer] software. It may contain incorrect words, spelling, and punctuation that were not noted in checking the note before signing.
== END 2020-09-14 23:59 ==
LOC: WC 11:00
PROVIDERS: Family Provider Family Medicine; PCP Family Medicine; Referring Provider Family Medicine; Visit Provider Family Medicine
DX: E11.621 Type 2 diabetes mellitus with foot ulcer (principal); L97.412 Non-pressure chronic ulcer of right heel and midfoot with fat layer exposed; E11.51 Type 2 diabetes mellitus with diabetic peripheral angiopathy without gangrene; E11.42 Type 2 diabetes mellitus with diabetic polyneuropathy; Z79.82 Long term (current) use of aspirin; Z79.01 Long term (current) use of anticoagulants; Z79.899 Other long term (current) drug therapy
CPT/HCPCS: 11042

== ENCOUNTER → 2020-09-29 12:48 | Outpatient (CLI) | payer MEDICARE, OTHER, SELFPAY ==
[2020-09-02 11:06] VITALS: BMI 29.9
[2020-09-16 11:03] VITALS: BMI 29.9
--- NOTE | 2020-09-29 12:51 | CDU_ITS ---
Reason For Study: Carotid stenosis, s/p right DAMARIS Rt. Velocities/BP Lt. Velocities/BP Prox CCA 53.1/18.2 cm/sec. Prox CCA 112.5/13.9 cm/sec. Mid CCA 45.3/16.5 cm/sec. Mid CCA 132.1/24.3 cm/sec. Dist CCA 47.9/13 cm/sec. Dist CCA 112/11.5 cm/sec. Prox ICA 52.3/16 cm/sec. Prox ICA 106/24.8 cm/sec. Mid ICA 52.3/12.7 cm/sec. Mid ICA 147.7/35.83 cm/sec. Dist ICA 45.7/16 cm/sec. Dist ICA 88.5/24.8 cm/sec. Rt. ICA/CCA = 1.09. Lt. ICA/CCA = 1.31. Prox ECA 279.4/38.4 cm/sec. Prox ECA 156.2/8.5 cm/sec. Rt. Vert. 26.5/11.5 cm/sec. Lt. Vert. 36.2/10.7 cm/sec. Right Extracranial There is homogeneous, smooth atherosclerotic plaque noted in the right common carotid artery. Stent noted in the right CCA mid-distal. There is intimal thickening but no significant atherosclerotic plaque noted in the right internal carotid artery. Stent noted in the right ICA prox-mid. There is heterogeneous, irregular atherosclerotic plaque noted in the right external carotid artery. Antegrade flow is noted in the right vertebral artery. Left Extracranial There is heterogeneous, irregular atherosclerotic plaque noted in the left common carotid artery. There is heterogeneous, irregular atherosclerotic plaque noted in the left internal carotid artery. There is homogeneous, smooth atherosclerotic plaque noted in the left external carotid artery. Antegrade flow is noted in the left vertebral artery. There is heterogeneous, irregular atherosclerotic plaque noted in the left bulb. Procedure Carotid Duplex [id number]. This is a Carotid Duplex examination using B-mode, color flow and specral Doppler. Exam performed in department. VL/Carotid Duplex Ultrasound Interpretation Summary Stents are noted in the right common carotid artery and internal carotid artery . No significant atherosclerotic plaque or stenosis noted in the right internal carotid artery. Moderate (50-69%) stenosis left extracranial internal carotid. Flow within the vertebral arteries is antegrade bilaterally. Elevated velocities in the right external carotid artery are sugge stive of stenosis >50%. There is heterogeneous, irregular atherosclerotic plaque in the left hernandes tid bulb, which does not appear to be hemodynamically significant. Ordering Physician: JUAN ALBERTO RODRIGUES Referring Physician: Mckayla Silva Performed By: Savanna Quinones RVT and Student
== END ==
PROVIDERS: PCP Family Medicine
DX: I65.23 Occlusion and stenosis of bilateral carotid arteries (principal)
CPT/HCPCS: 93880

== ENCOUNTER 2020-09-30 11:00 | Outpatient (RCR) | payer MEDICARE, OTHER, SELFPAY ==
[2020-09-15 00:27] VITALS: BP 143/81; PULSE 90; RESP 18; TEMP 36.4
[2020-09-16 11:03] VITALS: BP 167/75; PULSE 83; TEMP 36.1; BMI 29.9
--- NOTE | 2020-09-16 13:58 | PN.PCM_ITS ---
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 Code(s): L97.514 - Non-pressure chronic ulcer of other part of right foot with necrosis of bone (3) Open wound of right heel Status: Chronic Qualifiers: Encounter type: subsequent encounter Code(s): S91.301A - Unspecified open wound, right foot, initial encounter (4) Peripheral arterial occlusive disease Status: Chronic Code(s): I77.9 - Disorder of arteries and arterioles, unspecified (5) Diabetes mellitus Status: Chronic Qualifiers: Diabetes mellitus type: type 2 Diabetes mellitus manager terminal insulin use: without senior living use Diabetes mellitus complication status: with skin complications Diabetes mellitus complication detail: with foot ulcer Qualified Code(s): E11.621 - Type 2 diabetes mellitus with foot ulcer; L97.509 - Non-pressure chronic ulcer of other part of unspecified foot with unspecified severity Code(s): E11.9 - Type 2 diabetes mellitus without complications (6) Depression Status: Chronic Qualifiers: Depression Type: major depressive disorder Major depression recurrence: recurrent Active/Remission status: in partial remission Qualified Code(s): F33.41 - Major depressive disorder, recurrent, in partial remission Code(s): F32.9 - Major depressive disorder, single episode, unspecified (7) PAD (peripheral artery disease) Status: Chronic Code(s): I73.9 - Peripheral vascular disease, unspecified Type of Wound Date of Service: 09/16/20 Chief Complaint: Nonhealing ulcer right heel, Valdez Grade 3 diabetic ulcer. History of Wound: Gibson is here for evaluation of an ulcer of his right heel. He was recently treated for this same area with Theraskin application and was discharged in January 2019. He had noticed increased pain in his heel in March and his noted that the area had opened after his svp marketing had debrided some callus from the area. He has been applying Aquacel and gauze to the ulcer. He does follow with Dr. Navas regularly and had a bypass of his right SFA and popliteal arteries in September 2018. He has had procedures for his arterial disease in past to both of his lower extremities. He has tried alternative treatments with supplements and chelation therapy in the past. He also has diabetes and recent A1C was 7.2% He does wear diabetic shoes. He had been undergoing chelation treatments by Dr. German in [place]. He denies fever, chills, erythema or heavy drainage. He reports significant pain and discomfort of his right heel and his entire right leg which no one can explain. In March 2019, he was hospitalized due to occlusion of his bypass graft in his right leg and Dr. Navas was able to open it 50%. He also has blockages in his left leg. Dr. Navas is unable to revascularize either leg at this time and he may ultimately require limb amputation if his vascular disease worsens. December 11, 2019, he was sent to the emergency room with worsening of his ulcer and cellulitis. Dr. Good performed surgical debridement on December 12, 2019 and he was treated with IV antibiotics for over 4 weeks and was in the transitional care unit at [facility] for Rehab and treatment with wound vac. He was discharged on January 23, 2020 to home with continued wound vac treatment. Progress of Wound: Gibson is here to follow up for nonhealing ulcer of his right heel. He has had improvement in his ulcer. It appears to be healed today. Denies increased drainage, warmth, erythema or odor. - Physical Exam Vital Signs Temp Pulse Resp BP 97.0 F L 83 18 167/75 H 09/16/20 11:03 09/16/20 11:03 09/15/20 00:27 09/16/20 11:03 General: Alert, Oriented x3, Cooperative, No apparent distress HEENT: Atraumatic, Normocephalic Oral: Moist Mucosa Neck: Supple Lungs: Clear to auscultation Abdomen: Soft, Non Tender Extremities: Edema Skin: Ulcer/ Wound Wound Measurements and Assessment - Nurse 1 - General Ulcer Measurement Start: 09/16/20 11:02 Freq: Status: Active Protocol: Activity Type Activity Date Activity User E-Sign Co-Sign Detail Recorded Client Recorded Date Recorded By Document 09/16/20 11:03 MYRTLE [id number] 09/16/20 11:05 MYRTLE 09/16/20 11:03 Wound Center Nurse 1 [Ulcer Assessment] #17- R HEEL -Current Size (cm) - Length 0.2 -Current Size (cm) - Width 0.1 -Current Size (cm) - Depth 0.1 -Total Square Cm 0.02 -Exudate Amt None Present -Wound Margin Distinct, Outline Attached -Granulation Amt Medium (34-66%) -Granulation Quality Red -Necrosis Amt Medium (34-66%) -Necrotic Tissue Type Adherent Slough -Texture (Shahana-wound Skin Appearance) Assessed, Scarring -Moisture (Shahana-wound Skin Appearance Assessed,Dry/ ) Scaly -Color (Shahana-wound Skin Appearance) No Abnormality, Assessed -Temperature (Shahana-wound Skin No Abnormality Appearance) (Pt Warm) -Tenderness on Palpation (Shahana-wound No Skin Appearance) -Ulcer Cleansing Rinsed/ Irrigated with Saline -Foul Odor after Cleansing No -Anesthetic Used 4% Lidocaine Solution WC - Nurse 2 - General Ulcer CM Notes Start: 09/16/20 11:02 Freq: Status: Active Protocol: Activity Type Activity Date Activity User E-Sign Co-Sign Detail Recorded Client Recorded Date Recorded By Document 09/16/20 11:25 MW [id number] 09/16/20 11:36 MW 09/16/20 11:25 Wound Center Nurse 2 [Procedure/Treatment] -Time 11:27 -Correct Patient Yes -Correct Side, Site, Position Yes -Correct Procedure Yes -Procedure Performed No -Post Debridement (cm) - Length 0 -Post Debridement (cm) - Width 0 -Post Debridement (cm) - Depth 0 -Total Square (Post) (cm) 0 -Tunneling No -Undermining/Tunneling No -Circular Undermining No -Wound/Ulcer Outcome Healed- Epithelialized -Ulcer Cleansing Rinsed/ Irrigated with Saline -Bleeding Controlled with NA [See Physician Procedure note for Specifics] Pain Scale: 0-10 Numeric [Pain] -Is Patient Pain Free? Yes - Nurse 3 - General Ulcer D/C NN Start: 09/16/20 11:02 Freq: Status: Active Protocol: Activity Type Activity Date Activity User E-Sign Co-Sign Detail Recorded Client Recorded Date Recorded By Document 09/16/20 11:37 MW [id number] 09/16/20 11:38 MW 09/16/20 11:37 Wound Care Nurse 3 [Wound Dressing] #17- R HEEL -Primary Dressing Covered/Secured Dry Gauze & with Roll Gauze, Secured with Tape -Other Covering ABD PAD [Compression Applied] Right -Lotion applied to leg before Yes compression wrap -Compression Wrap Leopoldo Wrap [Post Procedure Tolerated] -Treatment Response Procedure Tolerated Well Pain Scale: 0-10 Numeric [Pain] -Is Patient Pain Free? Yes Teaching: Wound Center [Wound Center Education] (Items with an * have Printed Materials Available- Please identify what is given to patient under the Teaching materials given to patient and caregiver Section. Skin Care -Person Taught Patient,Family -Teaching Method Discussion -Response to teaching Verbalize understanding WC - Visit Discharge [Visit Discharge Information] -Discharge Condition Stable -Ambulatory Status Wheelchair -Transportation Private Auto -Accompanied by -Medication Reconcilliation completed No & provided to patient/care provider -Clinical Summary of Care Provided Yes Psych/Mental Status: Normal Affect, Appropriate Debridement Note Post-Debridement Measurements/Treatment - Nurse 2 - General Ulcer CM Notes Start: 09/16/20 11:02 Freq: Status: Active Protocol: Activity Type Activity Date Activity User E-Sign Co-Sign Detail Recorded Client Recorded Date Recorded By Document 09/16/20 11:25 MW [id number] 09/16/20 11:36 MW 09/16/20 11:25 Wound Center Nurse 2 #17- R HEEL -Time 11:27 -Correct Patient Yes -Correct Side, Site, Position Yes -Correct Procedure Yes -Procedure Performed No -Post Debridement (cm) - Length 0 -Post Debridement (cm) - Width 0 -Post Debridement (cm) - Depth 0 -Total Square (Post) (cm) 0 -Tunneling No -Undermining/Tunneling No -Circular Undermining No -Wound/Ulcer Outcome Healed- Epithelialized -Ulcer Cleansing Rinsed/ Irrigated with Saline -Bleeding Controlled with NA Pain Scale: 0-10 Numeric Is Patient Pain Free? Yes - Nurse 3 - General Ulcer D/C NN Start: 09/16/20 11:02 Freq: Status: Active Protocol: Activity Type Activity Date Activity User E-Sign Co-Sign Detail Recorded Client Recorded Date Recorded By Document 09/16/20 11:37 MW [id number] 09/16/20 11:38 MW 09/16/20 11:37 Wound Care Nurse 3 #17- R HEEL -Primary Dressing Covered/Secured with Dry Gauze & Roll Gauze, Secured with Tape -Other Covering ABD PAD Right -Lotion applied to leg before Yes compression wrap -Compression Wrap Leopoldo Wrap Treatment Response Procedure Tolerated Well Pain Scale: 0-10 Numeric Is Patient Pain Free? Yes Teaching: Wound Center Skin Care -Person Taught Patient,Family -Teaching Method Discussion -Response to teaching Verbalize understanding WC - Visit Discharge Discharge Condition Stable Ambulatory Status Wheelchair Transportation Private Auto Accompanied by Medication Reconcilliation completed & No provided to patient/care provider Clinical Summary of Care Provided Yes Wound debrided: Right heel Laterality: Right Type of Debridement: Excisional debridement Anesthesia Used: 4% Lidocaine Solution, 5% Lidocaine Gel Depth: Down to and including healthy tissue Percentage of wound debrided: 100 Instrument Used: 3mm curette Tissue Removed: devitalized tissue Severity: Limited To Skin Breakdown Amount of bleeding with debridement: None Patient tolerated procedure well Assessment/Plan Assessment: 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 Diabetes mellitus - controlled. Peripheral vascular disease - status post revascularization 08/07/18 and 03/2019 Plan: Demetriuss ulcer was evaluated and debrided today and appears to be healed. Will continue ABD nurses hat. Encouraged taht he schedule appointment to get f itted for new diabetic shoes/insoles. Encouraged increased protein intake, offloading of his ulcer and optimized glycemic control to promote healing. Encouraged to call with any increase in pain or drainage, fever or chills. F/U in 2 weeks. This note was generated with [employer] dictation software. It may contain incorrect words, spelling, and punctuation that were not noted in checking the note before signing.
[2020-09-30 11:00] VITALS: BP 149/96; PULSE 75; RESP 16; TEMP 36.4; BMI 29.9
--- NOTE | 2020-09-30 11:03 | WC ---
WOUND DRY AND INTACT NO DRAINAGE NOTED.
--- NOTE | 2020-09-30 14:58 | PN.PCM_ITS ---
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 Code(s): L97.514 - Non-pressure chronic ulcer of other part of right foot with necrosis of bone (3) Open wound of right heel Status: Chronic Qualifiers: Encounter type: subsequent encounter Code(s): S91.301A - Unspecified open wound, right foot, initial encounter (4) Peripheral arterial occlusive disease Status: Chronic Code(s): I77.9 - Disorder of arteries and arterioles, unspecified (5) Diabetes mellitus Status: Chronic Qualifiers: Diabetes mellitus type: type 2 Diabetes mellitus long term care pharmacist insulin use: without nursing home use Diabetes mellitus complication status: with skin complications Diabetes mellitus complication detail: with foot ulcer Qualified Code(s): E11.621 - Type 2 diabetes mellitus with foot ulcer; L97.509 - Non-pressure chronic ulcer of other part of unspecified foot with unspecified severity Code(s): E11.9 - Type 2 diabetes mellitus without complications (6) Depression Status: Chronic Qualifiers: Depression Type: major depressive disorder Major depression recurrence: recurrent Active/Remission status: in partial remission Qualified Code(s): F33.41 - Major depressive disorder, recurrent, in partial remission Code(s): F32.9 - Major depressive disorder, single episode, unspecified (7) PAD (peripheral artery disease) Status: Chronic Code(s): I73.9 - Peripheral vascular disease, unspecified Type of Wound Date of Service: 09/30/20 Chief Complaint: Nonhealing ulcer right heel, Valdez Grade 3 diabetic ulcer. History of Wound: Gibson is here for evaluation of an ulcer of his right heel. He was recently treated for this same area with Theraskin application and was discharged in January 2019. He had noticed increased pain in his heel in March and his noted that the area had opened after his d[employer] had debrided some callus from the area. He has been applying Aquacel and gauze to the ulcer. He does follow with Dr. Navas regularly and had a bypass of his right SFA and popliteal arteries in September 2018. He has had procedures for his arterial disease in past to both of his lower extremities. He has tried alternative treatments with supplements and chelation therapy in the past. He also has diabetes and recent A1C was 7.2% He does wear diabetic shoes. He had been undergoing chelation treatments by Dr. German in [place]. He denies fever, chills, erythema or heavy drainage. He reports significant pain and discomfort of his right heel and his entire right leg which no one can explain. In March 2019, he was hospitalized due to occlusion of his bypass graft in his right leg and Dr. Navas was able to open it 50%. He also has blockages in his left leg. Dr. Navas is unable to revascularize either leg at this time and he may ultimately require limb amputation if his vascular disease worsens. December 11, 2019, he was sent to the emergency room with worsening of his ulcer and cellulitis. Dr. Good performed surgical debridement on December 12, 2019 and he was treated with IV antibiotics for over 4 weeks and was in the transitional care unit at [facility] for Rehab and treatment with wound vac. He was discharged on January 23, 2020 to home with continued wound vac treatment. Progress of Wound: Gibson is here to follow up for nonhealing ulcer of his right heel. He has had improvement in his ulcer. It appears to remain healed today. Denies increased drainage, warmth, erythema or odor. - Physical Exam Vital Signs Temp Pulse Resp BP 97.6 F L 75 16 149/96 H 09/30/20 11:00 09/30/20 11:00 09/30/20 11:00 09/30/20 11:00 General: Alert, Oriented x3, Cooperative, No apparent distress HEENT: Atraumatic, Normocephalic Abdomen: Soft, Non Tender Extremities: Diminished Peripheral Pulses, Edema Skin: Ulcer/ Wound Wound Measurements and Assessment WC - Nurse 1 - General Ulcer Measurement Start: 09/16/20 11:02 Freq: Status: Discharge Protocol: Activity Type Activity Date Activity User E-Sign Co-Sign Detail Recorded Client Recorded Date Recorded By Edit Status 09/30/20 12:02 MARIUSZ OBANDO Active=>Discharge [id number] 09/30/20 12:02 MARIUSZ OBANDO WC - Nurse 2 - General Ulcer CM Notes Start: 09/16/20 11:02 Freq: Status: Discharge Protocol: Activity Type Activity Date Activity User E-Sign Co-Sign Detail Recorded Client Recorded Date Recorded By Document 09/30/20 11:30 MW [id number] 09/30/20 11:45 MW Edit Status 09/30/20 12:02 BKG DAEMON Active=>Discharge [id number] 09/30/20 12:02 BKG DAEMON 09/30/20 11:30 Pain Scale: 0-10 Numeric [Pain] -Is Patient Pain Free? Yes - Nurse 3 - General Ulcer D/C NN Start: 09/16/20 11:02 Freq: Status: Discharge Protocol: Activity Type Activity Date Activity User E-Sign Co-Sign Detail Recorded Client Recorded Date Recorded By Document 09/30/20 11:52 RB [id number] 09/30/20 11:53 RB Edit Status 09/30/20 12:02 BKG DAEMON Active=>Discharge [facility] 09/30/20 12:02 BKG DAEMON 09/30/20 11:52 -Is Patient Pain Free? Yes WC - Visit Discharge [Visit Discharge Information] -Discharge Condition Stable -Ambulatory Status Wheelchair -Transportation Private Auto -Medication Reconcilliation completed No & provided to patient/care provider -Clinical Summary of Care Provided Yes -Notes: hydrogel and adptic applied with abd nurses hat secured with roll gauze Psych/Mental Status: Normal Affect, Appropriate Debridement Note Post-Debridement Measurements/Treatment - Nurse 2 - General Ulcer CM Notes Start: 09/16/20 11:02 Freq: Status: Discharge Protocol: Activity Type Activity Date Activity User E-Sign Co-Sign Detail Recorded Client Recorded Date Recorded By Document 09/16/20 11:25 MW [id number] 09/16/20 11:36 MW Document 09/30/20 11:30 MW [id number] 09/30/20 11:45 MW 09/16/20 09/30/20 11:25 11:30 Wound Center Nurse 2 #17- R HEEL -Time 11:27 -Correct Patient Yes -Correct Side, Site, Position Yes -Correct Procedure Yes -Procedure Performed No -Post Debridement (cm) - Length 0 -Post Debridement (cm) - Width 0 -Post Debridement (cm) - Depth 0 -Total Square (Post) (cm) 0 -Tunneling No -Undermining/Tunneling No -Circular Undermining No -Wound/Ulcer Outcome Healed- Epithelialized -Ulcer Cleansing Rinsed/ Irrigated with Saline -Bleeding Controlled with NA Pain Scale: 0-10 Numeric Is Patient Pain Free? Yes Yes WC - Nurse 3 - General Ulcer D/C NN Start: 09/16/20 11:02 Freq: Status: Discharge Protocol: Activity Type Activity Date Activity User E-Sign Co-Sign Detail Recorded Client Recorded Date Recorded By Document 09/16/20 11:37 MW [id number] 09/16/20 11:38 MW Document 09/30/20 11:52 RB [id number] 09/30/20 11:53 RB 09/16/20 09/30/20 11:37 11:52 Wound Care Nurse 3 #17- R HEEL -Primary Dressing Covered/Secured with Dry Gauze & Roll Gauze, Secured with Tape -Other Covering ABD PAD Right -Lotion applied to leg before Yes compression wrap -Compression Wrap Leopoldo Wrap Treatment Response Procedure Tolerated Well Pain Scale: 0-10 Numeric Is Patient Pain Free? Yes Yes Teaching: Wound Center Skin Care -Person Taught Patient,Family -Teaching Method Discussion -Response to teaching Verbalize understanding WC - Visit Discharge Discharge Condition Stable Stable Ambulatory Status Wheelchair Wheelchair Transportation Private Auto Private Auto Accompanied by Medication Reconcilliation completed & No No provided to patient/care provider Clinical Summary of Care Provided Yes Yes Notes: hydrogel and adptic applied with abd nurses hat secured with roll gauze Wound debrided: right heel Laterality: Right Type of Debridement: Selective debridement Anesthesia Used: 4% Lidocaine Solution, 5% Lidocaine Gel Depth: Down to and including healthy tissue Percentage of wound debrided: 100 Instrument Used: 5mm curette Tissue Removed: Yellow slough, devitalized tissue Severity: Limited To Skin Breakdown Amount of bleeding with debridement: None Patient tolerated procedure well Assessment/Plan Active Problems Type 2 diabetes mellitus with diabetic polyneuropathy (Chronic) Ulcer of right foot with necrosis of bone (Chronic) Open wound of right heel (Chronic) Peripheral arterial occlusive disease (Chronic) Diabetes mellitus (Chronic) Depression (Chronic) PAD (peripheral artery disease) (Chronic) Assessment: 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 Diabetes mellitus - controlled. Peripheral vascular disease - status post revascula rization 08/07/18 and 03/2019 Plan: Demetriuss ulcer was evaluated and debrided today and appears to be healed. Will continue ABD nurses hat. He has been fitted for new diabetic shoes/insoles and is awaiting to receive them. Encouraged increased protein intake, offloading of his ulcer and optimized glycemic control to promote healing. Encouraged to call with any increase in pain or drainage, fever or chills. He is discharged today and will follow up as needed. This note was generated with [employer] dictation software. It may contain incorrect words, spelling, and punctu ation that were not noted in checking the note before signing.
== END 2020-09-30 12:01 | disposition home or self-care (01) ==
LOC: WC 11:00
PROVIDERS: Family Provider Family Medicine; PCP Family Medicine; Referring Provider Family Medicine; Visit Provider Family Medicine
DX: E11.621 Type 2 diabetes mellitus with foot ulcer (principal); L97.411 Non-pressure chronic ulcer of right heel and midfoot limited to breakdown of skin; E11.51 Type 2 diabetes mellitus with diabetic peripheral angiopathy without gangrene; E11.42 Type 2 diabetes mellitus with diabetic polyneuropathy; F32.9 Major depressive disorder, single episode, unspecified; Z79.82 Long term (current) use of aspirin; Z79.899 Other long term (current) drug therapy
CPT/HCPCS: 99213; G0463

== ENCOUNTER → 2020-10-18 12:55 | Outpatient (CLI) | payer MEDICARE, OTHER, SELFPAY ==
[2020-09-16 11:03] VITALS: BMI 29.9
[2020-09-30 11:00] VITALS: BMI 29.9
--- NOTE | 2020-10-18 13:32 | SP.MBSS_ITS ---
Modified Barium Swallow - Patient Information Study Date: 10/18/20 Study Time: 13:00 Direct Billable Minutes: 120 Total Minutes procedure & reportin Diagnosis: dysphagia, unspecified (R13.10) Referring Physician: Gen Woods Reason for Referral: To objectively assess swallow function under fluoroscopy and determine presence and/or degree of aspiration. Medical History: The patient is a 70/M with past medical history including coronary artery disease, peripheral arterial occlusive disease, diabetes mellitus, stroke, and depression. Pt recently presented to [facility] ED with changes in vision with stroke alert called. CT unremarkable. Current Diet Ordered: regular/thin Dentition: WNL Mental Status: WNL Respiratory Status: Oxygenating on Room Air - Study Findings Consistencies: Thin Liquid, [place] Thick Liquid, Honey Thick Liquid, Pudding, Cookie - Penetration-Aspiration Scale Penetration-Aspiration Scale: OBJECTIVE ASSESSMENT OF SWALLOW FUNCTION (QUANTITATIVE ? PER TRIAL): PENETRATION / ASPIRATION SCALE (HUBER): 1 = does not enter airway 2 = enters airway/above vocal folds/ejected 3 = enters airway/above vocal folds/not ejected 4 = enters airway/contacts vocal folds/ejected 5 = enters airway/contacts vocal folds/not ejected 6 = enters airway/below vocal folds/ejected 7 = enters airway/below vocal folds/not ejected despite effort 8 = enters airway/below vocal folds/no effort - Penetration-Aspiration Scale Score Thin Liquid via teaspoon Result: 1= does not enter airway Thin Liquid via teaspoon Trial 2 Result: 1= does not enter airway Thin Liquid via small single sip from cup Result: 1= does not enter airway Thin Liquid via large single sip from cup Result: 4= enters airway/contacts vocal folds/ejected Thin Liquid via sequential sips from cup Result: 2= enter airway/above vocal folds/ejected [place] Thick Liquid via large single sip from cup Result: 1= does not enter airway Honey Thick Liquid via large single sip from cup Result: 1= does not enter airway Pudding via teaspoon Result: 1= does not enter airway Cookie via teaspoon Result: 1= does not enter airway Thin Liquid via sequential sips from straw Result: 2= enter airway/above vocal folds/ejected - Oral Phase Labial Seal: No Labial Escape Tongue Control During Bolus Hold: Posterior escape of less than half of bolus Bolus Preparation/Mastication: Timely and efficient chewing and mashing Bolus Transport/Lingual Motion: Brisk tongue motion Oral Residue: Trace residue lining oral structures - Pharyngeal Phase Initiation of Pharyngeal Swallow: Bolus head at posterior laryngeal surgace of epiglottis Soft Palate Elevation: No bolus between soft palate and pharyngeal wall Laryngeal Elevation: Partial superior movement thyroid cart/partial apprx aryt- epig petiole Anterior Hyoid Excursion: Partial anterior movement Epiglottic Movement: Complete inversion Laryngeal Vestibule Closure at Height of Swallow: Incomplete; narrow column of air/contrast in laryngeal vestibule Pharyngeal Stripping Wave: Present - complete Pharyngoesophageal Segment Opening: Parital distension and partial duration; parital obstruction of flow Tongue Base Retraction: Trace column of contrast between tongue base & post. pharyngeal wall Pharyngeal Residue: Trace residue within or on pharyngeal structures - Esophageal Phase Esophageal Clearance: Complete clearance - Diagnosis/Impression Diagnosis: mild oropharyngeal dysphagia (R13.12) Impression: Oral phase characterized by timely and efficient mastication with only trace oral residue remaining post deglutition. Patient reports having dry mouth at baseline but otherwise denies difficulty chewing or swallowing. Pharyngeal phase characterized by suboptimal placement of bolus upon swallow onset however no aspiration present throughout trials. Patient found to have penetration of thin liquid with larger quantity sips with complete ejection. Trace pharyngeal residue present. - Recommendations Diet: Regular Textures - may consider moistening food due to decreased saliva reported by patient, Thin Liquids Compensatory Strategies: Small Bites, Small Sips, Alternate bites/solids and sips/liquids - always keep drinks close by to alternate with bites, Sitting upright Recommend Repeat Modified Barium Swallow: No Need for Skilled Speech Therapy Services: No Education Completed: 1. Described result of evaluation., 2. Pt understands evaluation & agrees with goals and treatment plan. - Status Active ST Patient: Active - Contact Information [facility]:: Stefania Vences MA, CCC-MAINTENANCE ASSOCIATE [place] [id number] [email or web address]
== END ==
PROVIDERS: PCP Family Medicine; Referring Provider Otolaryngology; Visit Provider Otolaryngology
DX: R13.12 Dysphagia, oropharyngeal phase (principal)
CPT/HCPCS: 74230; 92611

== ENCOUNTER → 2020-10-25 14:55 | Outpatient (CLI) | payer MEDICARE, OTHER, SELFPAY ==
[2020-09-30 11:00] VITALS: BMI 29.9
== END ==
PROVIDERS: PCP Family Medicine; Referring Provider Surgery Vascular Surgery; Visit Provider Surgery Vascular Surgery
DX: Z48.812 Encounter for surgical aftercare following surgery on the circulatory system (principal); I70.213 Atherosclerosis of native arteries of extremities with intermittent claudication, bilateral legs
CPT/HCPCS: 93922

== ENCOUNTER → 2020-12-05 15:54 | Outpatient (CLI) | payer MEDICARE, OTHER, SELFPAY ==
[2020-12-05 18:21] LABS: Absolute Lymphocyte Count 1.55 X10^3/uL (0.83-4.51); Absolute Neutrophil Count 4.4 X10^3/uL (2.0-7.7); Basophil# 0.07 X10^3/uL; Basophil% 1.1 % (0-1); Eosinophil# 0.07 X10^3/uL; Eosinophils% 1.1 % (0-5); Erythrocyte Sedimentation Rate 21 mm/hr (0-20); Hematocrit 47.7 % (40-54); Lymphocyte # 1.55 X10^3/ul (0.83-4.51); Lymphocyte % 23.3 % (19-41); Mean Corp Hgb Conc 33.5 g/dL (32-36); Mean Corpuscular Hgb 31.7 pg (27.0-32.0); Mean Corpuscular Volume 94.5 fL (80-94); Monocyte# 0.53 X10^3/uL; NRBC Flagged by Analyzer 0 % (0-5); Neutrophil # 4.36 X10^3/uL (2.7-7.7); Neutrophil % 65.6 % (47-70); Platelet Count 202 K/mm3 (150-450); RBC Distribution Width SD 48.5 fl (35.1-43.9); Red Blood Count 5.05 M/mm3 (4.6-6.2); White Blood Count 6.6 K/mm3 (4.4-11.0)
[2020-12-05 18:37] LABS: ALB/GLOB Ratio 0.8 RATIO (0.9-2.4); AST(SGOT) 16 U/L (15-37); Alanine Aminotransfer ALT/SGPT 23 U/L (16-61); Albumin, Serum 3.6 g/dL (3.2-5.0); Alkaline Phosphatase 110 U/L (45-117); Anion Gap 8 (5-15); BUN 19 mg/dL (7-18); BUN/Creat Ratio 15.4 RATIO (10-20); CRP 5.86 mg/L (0.0-3.0); Calcium,Total 8.8 mg/dL (8.5-10.1); Chloride 105 mmol/L (98-107); Creatinine, Serum 1.23 mg/dL (0.70-1.30); EST Glomerular Filtration Rate 62 mL/min (>60); Est Glom Filt Rate - Afr Amer 75 mL/min (>60); Globulin 4.3 g/dL (2.2-4.2); Glucose 260 mg/dL (74-106); Potassium 4.4 mmol/L (3.5-5.1); Protein, Total 7.9 g/dL (6.4-8.2); Sodium Level 138 mmol/L (136-145)
[2020-12-08 20:08] LABS: HEPATITIS B SURFACE AG Negative (Negative); Hepatitis A IgM Antibody Negative (Negative); Hepatitis B Core AB IgM Negative (Negative); QNTFERON TB Mitogen Value > 10.00 IU/mL (.); QNTFERON TB Nil Value 0 IU/mL (.); QNTFERON TB1+ Ag Value 0 IU/mL (.); QNTFERON TB2+ Ag Value 0 IU/mL (.)
[2020-12-08 22:48] LABS: Hep C Antibodies <0.1 s/co ratio (0.0-0.9); QNTIFERON TB Positive Criteria Negative (Negative)
== END ==
PROVIDERS: PCP Family Medicine; Referring Provider Family Medicine; Visit Provider Family Medicine
DX: E11.621 Type 2 diabetes mellitus with foot ulcer (principal); L97.509 Non-pressure chronic ulcer of other part of unspecified foot with unspecified severity; L40.9 Psoriasis, unspecified; Z51.81 Encounter for therapeutic drug level monitoring; Z11.59 Encounter for screening for other viral diseases; Z91.89 Other specified personal risk factors, not elsewhere classified
CPT/HCPCS: 36415; 80053; 80074; 85025; 85652; 86140; 86480

== ENCOUNTER 2020-12-11 10:55 | Inpatient (IN) | payer MEDICARE, OTHER, SELFPAY ==
[2020-12-11] VITALS (11 sets, daily range): BP systolic 145–170; BP diastolic 56–99; PULSE 77–94; RESP 16–18; TEMP 36.3–36.8; O2SAT 94–99; BMI 29.7; BMI 29.2
--- NOTE | 2020-12-11 11:01 | EKG12_ITS ---
Test Reason : STROKE Blood Pressure : / mmHG Vent. Rate : 085 BPM Atrial Rate : 085 BPM P-R Int : 152 ms QRS Dur : 154 ms QT Int : 420 ms P-R-T Axes : 000 -20 152 degrees QTc Int : 499 ms Normal sinus rhythm Right bundle branch block Inferior infarct , age undetermined Anterolateral infarct , age undetermined Abnormal ECG Confirmed by GODFREY MEEK, CARA ([id number]), map editor CAROLYN HYLTON ([id number]) on 12/13/2020 9:00:27 AM Referred By: Confirmed By:CARA DONAHUE MD
--- NOTE | 2020-12-11 11:01 | CT_ITS ---
STUDY: CTA HEAD AND NECK WITH CONTRAST REASON FOR EXAM: Male, 70 years old. Neuro deficit, acute, stroke suspected RADIATION DOSAGE (If Supplied By Facility): CTDIvol = ( 20.36 ) mGy, DLP = ( 802.18 ) mGycm TECHNIQUE: CT angiography was performed with a multi-detector CT scanner. Data acquisition was obtained from the skull base through the vertex following intravenous administration of IV 100mL Isovue-370. MIP images were reconstructed from the axial data set. Post-processing of the angiographic images was performed, with multiplanar reformation and 3D reconstruction. Individualized dose optimization techniques were used for this CT. COMPARISON: No relevant priors. FINDINGS: Mild calcifications of the petrous carotid arteries. There is calcified plaque formation of the right cavernous carotid artery, with a moderate stenosis (50-75%). There is calcified plaque formation of the left cavernous carotid artery, with a moderate stenosis (50-75%). There is hypoplastic development of the right A1 segment of the anterior cerebral arteries with an atretic but intact artery. Normal left A1 segments of the anterior cerebral artery. Normal intact anterior communicating artery (ACOM). Normal bilateral A2 segments of the anterior cerebral arteries. Normal right M1 and M2 segments of the middle cerebral arteries, with a normal M1 bifurcation. Normal left M1 and M2 segments of the middle cerebral arteries, with a normal M1 bifurcation. Normal right posterior communicating artery (PCOM). Normal left posterior communicating artery (PCOM). Calcifications of the vertebral arteries bilaterally with dominant right side. Normal basilar artery with a normal basilar bifurcation. The visualized bilateral superior cerebellar (SCA) arteries are normal. There is no demonstrated aneurysm of the [place]. AORTIC ARCH: There is atherosclerotic calcific plaque formation of the aortic arch and great vessels arising from the aortic arch, without a hemodynamically significant stenosis. There is a normal origin of the brachiocephalic, left common carotid, and left subclavian arteries. Normal origins of the brachiocephalic, left common carotid, and left subclavian arteries. RIGHT CAROTID ARTERIES: There is atherosclerotic tortuous elongation of the right common carotid artery. Normal distended in the left common carotid artery extending to the region of the bilateral Normal origin of the right internal carotid (ICA) artery without a hemodynamically significant stenosis. Normal visualized cervical portion of the right internal carotid artery. Normal origin of the right external carotid artery (ECA). LEFT CAROTID ARTERIES: Normal left common carotid artery (CCA). There is mild atherosclerotic plaque formation with mild narrowing of the left carotid bulb. Normal origin of the left internal carotid (ICA) artery without a hemodynamically significant stenosis. Normal visualized cervical portion of the left internal carotid artery. Normal origin of the left external carotid artery (ECA). VERTEBRAL ARTERIES: Normal bilateral vertebral arteries. CT/STROKE CTA Head AND Neck W/Con IMPRESSION: 1. Atherosclerotic calcifications of the cavernous internal carotid arteries with mild stenosis. 2. Hypoplastic development of the right A1 segment of the anterior cerebral artery. 3. Otherwise no great vessel intracranial significant stenosis is seen. 4. Right common carotid artery stent. 5. Atherosclerotic calcifications in the bulb bilaterally with mild stenosis. 6. Unremarkable internal carotid arteries bilaterally. 7. Patent bilateral vertebral arteries. N.B. : The above Results were Read Back by Mina Thorne MD to Júnior Tripp MD, and understanding confirmed on 12/11/2020 11:44:22 (ET). Electronically Signed: Mina Thorne MD at 11:47 EDT Tel , Service support ,
--- NOTE | 2020-12-11 11:01 | CT_ITS ---
STUDY: CT HEAD STROKE PROTOCOL W/O CONTRAST INJECTION REASON FOR EXAM: Male, 70 years old. Neuro deficit, acute, stroke suspected RADIATION DOSAGE (If Supplied By Facility): CTDIvol = ( ) mGy, DLP = ( ) mGycm TECHNIQUE: Transaxial CT imaging of the brain was performed without administration of intravenous contrast material. Individualized dose optimization techniques were used for this CT. COMPARISON: 07/24/2020. FINDINGS: Normal soft tissue structures. Normal calvarium. There is moderate cerebral atrophy with widening of the extra-axial spaces and ventricular dilatation. There are areas of decreased attenuation within the white matter tracts of the supratentorial brain, consistent with microvascular disease changes. Old right parietal infarct is again seen unchanged prior exam. Normal basal ganglia and thalami. Normal brainstem. Normal cerebellum. There is no intracranial hemorrhage. There are no findings of an acute ischemic infarction. There are calcifications of the cavernous internal carotid arteries and of the vertebral arteries. Normal visualized paranasal sinuses. CT/STROKE Brain/Head without Cont IMPRESSION: Chronic involutional changes of the brain. Old right parietal infarct. No acute intracranial process. N.B. : The above Results were Read Back by Mina Thorne MD to Júnior Tripp MD, and understanding confirmed on 12/11/2020 11:21:26 (ET). Electronically Signed: Mina Thorne MD at 11:22 EDT Tel , Service support ,
--- NOTE | 2020-12-11 11:08 | ED.VIS.STROK ---
HPI History of Present Illness Chief Complaint: Neuro S/Sx Informant: patient and spouse/S.O. Narrative Narrative: 70-year-old male presents to the emergency department concerns for stroke. Patient states he had previously had a stroke resulting in deficits to the left arm and leg. He states that earlier this year he had another stroke and was taken to [facility]. At that time he had vision changes and his carotid artery was stented. He is currently on Eliquis Plavix and aspirin. He reports that he went to bed at midnight with no changes when he woke this morning he states he is having difficulty seeing on the left eye. He covers his right eye nothing is different with the left eye. He covers his left eye nothing is different with the right eye. But together he states he cannot really see anything out of the left eye. [facility] Medical History (Updated 12/11/20 @ 13:20 by Karen Esteban) Back pain with history of spinal surgery Coronary artery disease Coronary artery disease Diabetes mellitus Foot drop, left foot History of right common carotid artery stent placement Hyperlipidemia Hypertension Peripheral arterial occlusive disease Peripheral vascular disease Home Medications apixaban 5 mg PO BID #60 tab 01/20/20 [Rx Last Taken 12/11/20] oxycodone 10 mg PO Q4H PRN PRN 3 Days #36 tab 01/20/20 [Rx Last Taken Unknown] amitriptyline 10 - 30 mg PO QHS 12/11/20 [History Last Taken Unknown] aspirin 1 tab PO DAILY 12/11/20 [History Last Taken 12/10/20] clopidogrel 75 mg PO DAILY 12/11/20 [History Last Taken 12/10/20] cyclobenzaprine 5 mg PO TID PRN 12/11/20 [History Last Taken Unknown] glyburide 5 mg PO DAILY 12/11/20 [History Last Taken 12/10/20] nystatin [Nystop] 1 applic TOPICAL TID PRN 12/11/20 [History Last Taken Unknown] venlafaxine 75 mg PO DAILY 12/11/20 [History Last Taken Unknown] Allergy/AdvReac Type Severity Reaction Status Date / Time morphine Allergy PT UNSURE Verified 12/11/20 11:22 OF REACTION rivaroxaban [From Xarelto] Allergy Other Verified 12/11/20 11:22 Surgical History Hx of CABG Social History Smoking Status: Never smoker substance use type: does not use ROS ROS ED Constitutional Constitutional ED: Denies chills or weight loss Eyes Eyes: Reports change in vision; Denies diplopia ENT ENT ED: Denies ear pain, rhinorrhea or sore throat Cardiovascular Cardiovascular: Denies chest pain, orthopnea, palpitations or racing heartbeat Respiratory/Chest Respiratory/Chest: Denies cough, dyspnea or orthopnea Gastrointestinal Gastrointestinal: Denies abdominal pain, diarrhea, nausea or vomiting Genitourinary Genitourinary ED: Denies dysuria, hematuria or urinary frequency Musculoskeletal Musculoskeletal: Denies arthralgias or myalgias Integumentary Denies abscess or rash Neurologic Neurologic: Denies headache(s) or weakness Psychiatric Psychiatric: Denies anxiety, depression, suicidal ideation or suicidal thoughts Endocrine Endocrinology: Denies polydipsia, polyphagia or polyuria Allergic/Immunologic Allergic/Immunologic ED: Denies mouth swelling, tongue swelling or urticaria EXAM Physical Exam Const Vital Signs: 12/11/20 10:57 12/11/20 11:19 12/11/20 11:30 Temperature 98.2 F Temperature Source Oral Pulse Rate 92 84 Respiratory Rate 16 18 18 Blood Pressure 170/99 H 151/82 H 163/91 H Blood Pressure Mean 122 105 115 Pulse Ox 94 94 Oxygen Delivery Method Room Air Room Air Room Air 12/11/20 12:00 Temperature 98.0 F Temperature Source Temporal Pulse Rate 85 Respiratory Rate 18 Blood Pressure 159/84 H Blood Pressure Mean 109 Pulse Ox 95 Oxygen Delivery Method Room Air Positive well nourished and well developed General Appearance ED: well developed HEENT Reports normocephalic, head/scalp atraumatic and moist mucous membranes Eyes PERRL and EOMs intact bilaterally Neck no lymphadenopathy, supple and no JVD Resp normal respiratory effort and clear to auscultation bilaterally Cardio regular rate, regular rhythm and no murmurs GI normal to inspection, nondistended, normoactive bowel sounds and non-tender Palpation: soft Back/Spine no CVA tenderness and normal ROM Extremity normal to inspection General Extremety ED: Negative for edema General Extremity: Negative for edema Neuro oriented x3 and CN's II-XII intact bilaterally Neuro Narrative: Chronic changes to the left arm and leg. No change from baseline. I score him an NIH of 1 due to the visual change Sensorium / Orientation: alert Psych mental status grossly normal Mood & Affect: Negative for depressed or tearful Skin no rashes or lesions noted and no wounds STROKE Vital Signs/Narrative: Vital Signs Temp Pulse Resp BP Pulse Ox 12/11/20 11:30 84 18 163/91 H 94 12/11/20 11:19 92 18 151/82 H 94 12/11/20 10:57 98.2 F 16 170/99 H MDM MDM MDM Narrative Medical decision making narrative: Stroke team was called. CT and CTA head and neck negative. I spoke with [facility] neurology who recommends an updated MRI. Patient is amendable to staying here. He is not a TPA candidate. Lab Data Attestation: I reviewed the patient's lab results. Labs: Laboratory Results - last 24 hr 12/11/20 12/11/20 12/11/20 11:10 11:10 11:10 WBC 6.3 RBC 5.10 Hgb 15.9 Hct 47.9 MCV 93.9 MCH 31.2 MCHC 33.2 RDW Std Deviation 47.0 H RDW Coeff of Melodie 13.7 Plt Count 187 MPV 9.5 Immature Gran % (Auto) 1.000 H Neut % (Auto) 52.0 Lymph % (Auto) 23.2 [place] % (Auto) 8.9 Eos % (Auto) 13.8 H Baso % (Auto) 1.1 H Absolute Neuts (auto) 3.3 Absolute Lymphs (auto) 1.46 Nucleated RBC % 0 Differential Comment SCANNED PT 12.9 INR 1.0 APTT 32.3 Sodium 138 Potassium 4.1 Chloride 107 Carbon Dioxide 24.0 Anion Gap 7 BUN 19 H Creatinine 1.29 Estim Creat Clear Calc 51.55 Est GFR (MDRD) Af Amer 71 Est GFR (MDRD) Non-Af 58 L BUN/Creatinine Ratio 14.7 Glucose 222 H Calcium 8.9 Troponin I High Sens 31.0 Radiography Diagnostic Testing: Radiology Impression Brain CT 12/11/20 11:01 IMPRESSION: Chronic involutional changes of the brain. Old right parietal infarct. No acute intracranial process. N.B. : The above Results were Read Back by Mina Thorne MD to Júnior Tripp MD, and understanding confirmed on 12/11/2020 11:21:26 (ET). Electronically Signed: Mina Thorne MD at 11:22 EDT Tel , Service support , ADDENDUM: 12/11/20 1129 IMPRESSION: Chronic involutional changes of the brain. Old right parietal infarct. No acute intracranial process. N.B. : The above Results were Read Back by Mina Thorne MD to Júnior Tripp MD, and understanding confirmed on 12/11/2020 11:21:26 (ET). Electronically Signed: Mina Thorne MD at 11:22 EDT Tel , Service support , Head/Neck CTA 12/11/20 11:01 IMPRESSION: 1. Atherosclerotic calcifications of the cavernous internal carotid arteries with mild stenosis. 2. Hypoplastic development of the right A1 segment of the anterior cerebral artery. 3. Otherwise no great vessel intracranial significant stenosis is seen. 4. Right common carotid artery stent. 5. Atherosclerotic calcifications in the bulb bilaterally with mild stenosis. 6. Unremarkable internal carotid arteries bilaterally. 7. Patent bilateral vertebral arteries. N.B. : The above Results were Read Back by Mina Thorne MD to Júnior Tripp MD, and understanding confirmed on 12/11/2020 11:44:22 (ET). Electronically Signed: Mina Thorne MD at 11:47 EDT Tel , Service support , ADDENDUM: 12/11/20 1154 IMPRESSION: 1. Atherosclerotic calcifications of the cavernous internal carotid arteries with mild stenosis. 2. Hypoplastic development of the right A1 segment of the anterior cerebral artery. 3. Otherwise no great vessel intracranial significant stenosis is seen. 4. Right common carotid artery stent. 5. Atherosclerotic calcifications in the bulb bilaterally with mild stenosis. 6. Unremarkable internal carotid arteries bilaterally. 7. Patent bilateral vertebral arteries. N.B. : The above Results were Read Back by Mina Thorne MD to Júnior Tripp MD, and understanding confirmed on 12/11/2020 11:44:22 (ET). Electronically Signed: Mina Thorne MD at 11:47 EDT Tel , Service support , Chest X-Ray 12/11/20 11:45 IMPRESSION: No active pulmonary disease. Electronically Signed: Mina Thorne MD at 12:32 EDT Tel , Service support , EKG Initial EKG: Attestation: I personally reviewed and interpreted this EKG as follows: Comments: EKG demonstrates a normal sinus rhythm with right bundle branch block. Ventricular rate of 85 Critical Care Time Critical care time (excluding procedures): 30-74 minutes (35 min), Including time spent:, Discussing w/Patient &/or Family/Underground Utility Locator, Discussing w/Consultants, Arranging Admission or Transfer and Performing Direct Patient Care at Bedside Discharge Plan Dx/Rx/DC Orders Clinical Impression: Stroke Disposition Disposition: Acute Care Hospital [facility] Discharge Date/Time: 12/11/20 12:52
--- NOTE | 2020-12-11 11:14 | NURSING ---
[id number] STROKE ALERT CALLED
[2020-12-11 11:17] LABS: Absolute Lymphocyte Count 1.46 X10^3/uL (0.83-4.51); Absolute Neutrophil Count 3.3 X10^3/uL (2.0-7.7); Basophil# 0.07 X10^3/uL; Basophil% 1.1 % (0-1); Eosinophil# 0.87 X10^3/uL; Eosinophils% 13.8 % (0-5); Hematocrit 47.9 % (40-54); Hemoglobin 15.9 g/dL (13.0-16.5); Lymphocyte # 1.46 X10^3/ul (0.83-4.51); Lymphocyte % 23.2 % (19-41); Mean Corp Hgb Conc 33.2 g/dL (32-36); Mean Corpuscular Hgb 31.2 pg (27.0-32.0); Mean Corpuscular Volume 93.9 fL (80-94); Mean Platelet Vol. 9.5 fl (6.2-12.0); Monocyte# 0.56 X10^3/uL; Monocyte% 8.9 % (0-10); NRBC Flagged by Analyzer 0 % (0-5); Neutrophil # 3.27 X10^3/uL (2.7-7.7); POSITIVE MORPHOLOGY YES; Platelet Count 187 K/mm3 (150-450); RBC Distribution Width CV 13.7 % (11.6-14.6); White Blood Count 6.3 K/mm3 (4.4-11.0)
[2020-12-11 11:25] LABS: Partial Thromboplast Time 32.3 Seconds (24.1-36.2); Prothrombin Time (Protime)PT. 12.9 SECONDS (11.7-14.9)
[2020-12-11 11:32] LABS: Anion Gap 7 (5-15); BUN 19 mg/dL (7-18); BUN/Creat Ratio 14.7 RATIO (10-20); Calcium,Total 8.9 mg/dL (8.5-10.1); Chloride 107 mmol/L (98-107); Creatinine, Serum 1.29 mg/dL (0.70-1.30); EST Glomerular Filtration Rate 58 mL/min (>60); Est Glom Filt Rate - Afr Amer 71 mL/min (>60); Estimated Creatinine Clearance 51.55 ml/min; Glucose 222 mg/dL (74-106); Potassium 4.1 mmol/L (3.5-5.1); Sodium Level 138 mmol/L (136-145)
[2020-12-11 11:34] LABS: Differential Indicated SCAN CRITERIA MET
[2020-12-11 11:35] LABS: Differential Comment SCANNED
--- NOTE | 2020-12-11 11:45 | RAD_ITS ---
STUDY: X-RAY CHEST REASON FOR EXAM: Male, 70 years old. Neuro deficit, acute, stroke suspected TECHNIQUE: Single AP portable view of the chest. COMPARISON: 07/24/2020. FINDINGS: The lungs are clear and expanded. There is no demonstrated pleural abnormality. Sternal cerclage wires are present from a prior sternotomy. Normal mediastinum and isaak. Normal visualized pulmonary arteries. Normal visualized aortic arch and descending thoracic aorta. The thoracic spine is not well-seen. Degenerative changes in both shoulders. There is no demonstrated abnormality of the visualized soft tissue structures of the upper abdomen. RAD/Chest 1 View IMPRESSION: No active pulmonary disease. Electronically Signed: Mina Thorne MD at 12:32 EDT Tel , Service support ,
--- NOTE | 2020-12-11 12:18 | ECHOCS_ITS ---
Reason For Study: TIA/Stroke Procedure This was a 2D Doppler, Color Flow transthoracic echocardiogram. Contrast injection was performed. Exam performed portable in patient room. Left Ventricle Normal LV size. 2.1 x 1.8 cm thrombus mildly calcified noted in the apex. The estimated ejection fraction is 35 %. Stage 1 diastolic dysfunction. Moderate segmental systolic dysfunction (see wall motion). [place] : Akinetic. Mid-Posterior: Akinetic. Right Ventricle Normal RV size. Normal systolic function. Atria Normal left atrium. Normal right atrium. Mitral Valve Normal mitral valve. Mild (1+) eccentric mitral valve insufficiency. Tricuspid Valve Normal tricuspid valve. Aortic Valve Trisinus/trileaflet aortic valve. Mild focal aortic valve calcification. Pulmonic Valve The pulmonic valve is not well visualized. Great Vessels Normal aortic root. Pericardium/Pleural No pericardial effusion. Medication Diluted definity 3ml given slow IV push to enhance endocardial definition. MMode/2D Measurements & Calculations LVIDd: 5.8 cm IVSd: 1.1 cm Ao root diam: 2.4 cm LVIDs: 4.3 cm LVPWd: 1.3 cm RVDd: 3.5 cm FS: 26.2 % LAV(MOD-bp): 62.9 ml LVAd ap4: 38.1 cm2 SV(MOD-sp4): 41.1 ml LAV(MOD-bp) Indexed: 31.1 ml/m2 LVLd ap4: 9.2 cm LAV(MOD-sp2): 74.2 ml EDV(MOD-sp4): 127.5 ml LAV(MOD-sp4): 52.7 ml EDV(sp4-el): 133.4 ml LVAs ap4: 30.4 cm2 LVLs ap4: 8.5 cm ESV(MOD-sp4): 86.4 ml ESV(sp4-el): 91.8 ml EF(MOD-sp4): 32.2 % EF(sp4-el): 31.2 % SV(sp4-el): 41.7 ml LA A4 area: 19.6 cm2 LA dimension(2D): 4.1 cm RA A4 area: 11.2 cm2 Doppler Measurements & Calculations MV E max jay: 77.8 cm/sec Lat Peak E' Jay: 5.2 cm/sec Med Peak E' Jay: 6.2 cm/sec MV A max jay: 112.9 cm/sec E/E' lat: 14.9 E/E' med: 12.6 MV E/A: 0.69 Ao V2 max: 135.6 cm/sec LV V1 max: 84.2 cm/sec PA V2 max: 112.5 cm/sec Ao max P.4 mmHg LV V1 max P.8 mmHg Ao V2 mean: 101.0 cm/sec Ao mean P.3 mmHg Ao V2 VTI: 24.5 cm ECHO/Echo Complete W/ Contrast Interpretation Summary Normal LV size. The estimated ejection fraction is 35 %. Stage 1 diastolic dysfunction. 2.1 x 1.8 cm thrombus mildly calcified noted in the apex Moderate segmental systolic dysfunction (see wall motion). Thrombus appears to be chronic. Contrast injection was performed. Ordering Physician: Mark^Melisa^^^ Referring Physician: Mckayla Silva Performed By: Marybeth Shi, ED, RVT
--- NOTE | 2020-12-11 12:20 | PCM.HP.STD ---
HPI - General HPI Narrative TRAM RIVERA, is a 70 M who presented to the emergency department [facility] on 12/11/2020 complaining of new left-sided visual changes. In July of this past year he presented to the emergency department with new onset left-sided weakness and was found to have severe stenosis with high-grade features in the right carotid artery and he was transferred to [facility] where a balloon angioplasty and stenting of the right carotid artery was performed. some left-sided facial numbness, left-sided The patient reports that that point in time he has had weakness with left foot drop and central left visual changes. other than his baseline fatigue and left-sided symptoms He reports he went to bed last night at midnight and was feeling fine but when he awoke this morning he had what he describes as blurred vision in his left eye compared to what it had been previously and no other symptoms other than a sensation of impending doom. Today he he reports I felt like something bad was happening. He is currently on full dose aspirin, Plavix, and Eliquis and has been since discharge from [facility]. The patient reports compliance with these medications. His CT in the emergency department was unremarkable. His CTA showed a normal left carotid artery with mild atherosclerosis and mild narrowing of the left carotid bulb, no hemodynamic significant left internal carotid artery stenosis, hypoplastic right A1 segment of the BRADY, and a right common carotid artery stent. [facility] stroke neurologist was contacted by the emergency department here and they recommended admission for repeat MRI and therapy services. Patient's vital signs were stable other than some mild hypertension with systolic pressures from 1 43-1 70 and diastolic pressures from 76-99. It does not appear that the patient is on any antihypertensives at baseline. His CBC is overall unremarkable. Coagulation studies are within normal limits. His BMP is over all unremarkable other than a serum glucose of 222. His high-sensitivity troponin was 31. Chest x-ray was unremarkable. On exam he seemed anxious and his vision out of his left eye was at baseline when I covered up his right eye but the patient persisted did say that it was blurred when he had binocular vision. He was admitted to PCU for further work-up regarding his visual changes and concern for TIA versus stroke. [facility] Medical History (Updated 12/11/20 @ 12:[address] Melisa Mark, DO) Coronary artery disease Coronary artery disease Diabetes mellitus Foot drop, left foot History of right common carotid artery stent placement Hyperlipidemia Hypertension Peripheral arterial occlusive disease Peripheral vascular disease Home Medications Cholecalciferol (Vitamin D3) [Vitamin D3] 5,000 mg PO DAILY 06/13/18 [History Last Taken Unknown] aspirin [Lite Coat Aspirin] 325 mg PO DAILY 06/13/18 [History Last Taken 12/15/19 08:54] diclofenac sodium 1 applic TOPICAL 4X/DAY PRN PRN 12/12/19 [History Last Taken Unknown] alum-mag hydroxide-simeth 30 ml PO Q6H PRN PRN udc 12/15/19 [Rx Last Taken 12/12/19 23:48] acetaminophen 1,000 mg PO Q6H PRN PRN tab 01/20/20 [Rx Last Taken Unknown] acidophilus-pectin, citrus 1 tab PO BID tab 01/20/20 [Rx Last Taken Unknown] apixaban 5 mg PO BID #60 tab 01/20/20 [Rx Last Taken Unknown] bnucd-nslm-IeRAW-glydht-em-iiw 1 packet PO BIDCM #60 packet 01/20/20 [Rx Last Taken Unknown] diclofenac sodium 0 gm TP 4X/DAY PRN PRN tube 01/20/20 [Rx Last Taken Unknown] ketoconazole 1 applic TOPICAL BID tube 01/20/20 [Rx Last Taken Unknown] oxycodone 10 mg PO Q4H PRN PRN 3 Days #36 tab 01/20/20 [Rx Last Taken Unknown] peg 929-lgvmarfebfcw-ooxlzpxh 2 drp EACH EYE Q1H PRN bottle 01/20/20 [Rx Last Taken Unknown] polyethylene glycol 3350 17 gm PO DAILY #30 packet 01/20/20 [Rx Last Taken Unknown] sennosides-docusate sodium 2 tab PO BID #120 tab 01/20/20 [Rx Last Taken Unknown] venlafaxine 75 mg PO DAILY #30 cap 01/20/20 [Rx Last Taken Unknown] amoxicillin-pot clavulanate 1 tab PO BID 07/24/20 [History Last Taken Unknown] Allergy/AdvReac Type Severity Reaction Status Date / Time morphine Allergy PT UNSURE Verified 12/11/20 11:22 OF REACTION rivaroxaban [From Xarelto] Allergy Other Verified 12/11/20 11:22 Surgical History Hx of CABG Social History Smoking Status: Never smoker substance use type: does not use ROS Constitutional Constitutional: Reports fatigue and weakness; Denies anorexia, change in weight, chills, fever(s), malaise or night sweats Eyes Eyes: Reports blurry vision left and other Details: Chronic central vision loss on the left with residual blurred vision which is new ENT HEENT: Denies abnormal hearing, dysphagia, ear pain, epistaxis, headache(s), hearing loss, nasal congestion, nasal discharge, post nasal drip, sinus pressure, sore throat or other Cardiovascular Cardiovascular: Reports edema and other Details: Patient reports resolved left lower extremity edema ; Denies chest pain, claudication, dyspnea on exertion, lightheadedness, orthopnea, palpitations, paroxysmal nocturnal dyspnea, rapid heart rate or syncope Respiratory/Chest Respiratory/Chest: Denies cough, dyspnea, excessive phlegm production, hemoptysis, productive cough, shortness of breath at rest, shortness of breath with exertion, wheezing or other Gastrointestinal Gastrointestinal: Denies abdominal pain, coffee ground emesis, constipation, diarrhea, dyspepsia, hematemesis, hematochezia, loose stools, melena, nausea, vomiting or other Genitourinary Genitourinary: Denies burning urination, difficulty urinating, dysuria, hematuria, nocturia, urinary frequency, urinary hesitancy, urinary incontinence, urinary urgency or other Musculoskeletal Musculoskeletal: Reports joint pain and joint stiffness; Denies arthralgias, back pain, joint swelling, myalgias, neck pain or other Neurologic Neurologic: Reports abnormal gait, focal weakness, numbness, paresthesias and other Details: Left-sided weakness, left facial sensory changes, left facial droop--> all chronic from previous stroke ; Denies abnormal speech, confusion, disequilibrium, dizziness, headache(s), seizure-like activity, seizures, syncope, tingling or tremor(s) Psychiatric Psychiatric: Denies anxiety, depression, homicidal ideation, suicidal ideation or other Endocrine Endocrinology: Denies change in body appearance, cold intolerance, excessive sweating, heat intolerance, polydipsia, polyuria or other Hematologic/Lymphatic Hematologic/Lymphatic: Reports easy bruising; Denies anemia, easy bleeding, lymphadenopathy or other Allergic/Immunologic Allergic/Immunologic: Denies rhinitis, hives, eczemia, asthma or other Vital Signs Vital Signs Vital Signs: 12/11/20 10:57 12/11/20 11:19 12/11/20 11:30 Temperature 98.2 F Temperature Source Oral Pulse Rate 92 84 Respiratory Rate 16 18 18 Blood Pressure 170/99 H 151/82 H 163/91 H Blood Pressure Mean 122 105 115 Pulse Ox 94 94 Oxygen Delivery Method Room Air Room Air Room Air Weight Weight: 88.6 kg Body Mass Index (BMI) 29.7 Physical Exam Const alert, oriented x3 and no apparent distress Constitutional Narrative: Overweight upper middle-aged white male, sitting in bed, at bedside, appears comfortable, nontoxic General Appearance: cooperative HEENT normocephalic, head/scalp atraumatic, hearing grossly normal bilaterally, moist oral mucous membranes and oropharynx normal HEENT Narrative: Mallampati 2, no thrush Eyes PERRL, EOMs intact bilaterally and conjunctivae normal Eyes Narrative: Mild scleral injection bilaterally Neck no lymphadenopathy, supple, no JVD and no carotid bruits Neck Narrative: Trachea midline, thyroid without enlargement or nodules Resp normal respiratory effort, no retractions, no use of accessory muscles and clear to auscultation bilaterally Auscultation: Negative for crackles, rales, rhonchi or wheezes Cardio regular rate, regular rhythm, S1 normal heart sound, S2 normal heart sound, no murmurs, no rub, no gallops, no clicks and no JVD GI normal to inspection, nondistended, normoactive bowel sounds, soft to palpation, non-tender and non-distended Extremity no clubbing, cyanosis or edema Extremity Narrative: Left lower extremity foot drop with AFO in place Peripheral Pulses: Yes pulses 2+ throughout Skin no rashes or lesions noted, no wounds, skin turgor normal, no jaundice, no petechiae and no mottling Neuro oriented x3 Neuro Narrative: Mild left facial droop, decreased sensation left face, left upper and lower extremity hemiparesis with the left lower extremity being more involved than the left upper extremity, 3+ reflexes left upper and lower extremity Sensorium / Orientation: awake, alert, oriented to person, oriented to place and oriented to time Speech: speech normal Psych Psych Narrative: Mood seems very depressed and affect is extremely flat Results Lab / Micro Data Attestation: I reviewed the patient's lab results. Result Diagrams: 12/11/20 11:10 12/11/20 11:10 Labs: Laboratory Results - last 24 hr 12/11/20 12/11/20 12/11/20 11:10 11:10 11:10 WBC 6.3 RBC 5.10 Hgb 15.9 Hct 47.9 MCV 93.9 MCH 31.2 MCHC 33.2 RDW Std Deviation 47.0 H RDW Coeff of Melodie 13.7 Plt Count 187 MPV 9.5 Immature Gran % (Auto) 1.000 H Neut % (Auto) 52.0 Lymph % (Auto) 23.2 [place] % (Auto) 8.9 Eos % (Auto) 13.8 H Baso % (Auto) 1.1 H Absolute Neuts (auto) 3.3 Absolute Lymphs (auto) 1.46 Nucleated RBC % 0 Differential Comment SCANNED PT 12.9 INR 1.0 APTT 32.3 Sodium 138 Potassium 4.1 Chloride 107 Carbon Dioxide 24.0 Anion Gap 7 BUN 19 H Creatinine 1.29 Estim Creat Clear Calc 51.55 Est GFR (MDRD) Af Amer 71 Est GFR (MDRD) Non-Af 58 L BUN/Creatinine Ratio 14.7 Glucose 222 H Calcium 8.9 Troponin I High Sens 31.[address] 12/11/20 11:01 IMPRESSION: Chronic involutional changes of the brain. Old right parietal infarct. No acute intracranial process. N.B. : The above Results were Read Back by Mina Thorne MD to Júnior Tripp MD, and understanding confirmed on 12/11/2020 11:21:26 (ET). Electronically Signed: Mina Thorne MD at 11:22 EDT Tel , Service support , ADDENDUM: 12/11/20 1129 IMPRESSION: Chronic involutional changes of the brain. Old right parietal infarct. No acute intracranial process. N.B. : The above Results were Read Back by Mina Thorne MD to Júnior Tripp MD, and understanding confirmed on 12/11/2020 11:21:26 (ET). Electronically Signed: Mina Thorne MD at 11:22 EDT Tel , Service support , Head/Neck CTA 12/11/20 11:01 IMPRESSION: 1. Atherosclerotic calcifications of the cavernous internal carotid arteries with mild stenosis. 2. Hypoplastic development of the right A1 segment of the anterior cerebral artery. 3. Otherwise no great vessel intracranial significant stenosis is seen. 4. Right common carotid artery stent. 5. Atherosclerotic calcifications in the bulb bilaterally with mild stenosis. 6. Unremarkable internal carotid arteries bilaterally. 7. Patent bilateral vertebral arteries. N.B. : The above Results were Read Back by Mina Thorne MD to Júnior Tripp MD, and understanding confirmed on 12/11/2020 11:44:22 (ET). Electronically Signed: Mina Thorne MD at 11:47 EDT Tel , Service support , ADDENDUM: 12/11/20 1154 IMPRESSION: 1. Atherosclerotic calcifications of the cavernous internal carotid arteries with mild stenosis. 2. Hypoplastic development of the right A1 segment of the anterior cerebral artery. 3. Otherwise no great vessel intracranial significant stenosis is seen. 4. Right common carotid artery stent. 5. Atherosclerotic calcifications in the bulb bilaterally with mild stenosis. 6. Unremarkable internal carotid arteries bilaterally. 7. Patent bilateral vertebral arteries. N.B. : The above Results were Read Back by Mina Thorne MD to Júnior Tripp MD, and understanding confirmed on 12/11/2020 11:44:22 (ET). Electronically Signed: Mina Thorne MD at 11:47 EDT Tel , Service support , Assessment & Plan Assessment/Plan (1) Vision changes: (2) Type II diabetes mellitus: QUALIFIERS: Diabetes mellitus snf insulin use: without vermin exterminator use Diabetes mellitus complication detail: with foot ulcer (3) PAD (peripheral artery disease): (4) Stroke: PLAN: Left eye blurred vision -Stroke team called by the emergency department -Patient with recent stroke July 2020 status post carotid artery stenting right side at [facility] -Continue aspirin, Plavix, Eliquis--> patient has been on this since his previous stroke -Check echo -Check repeat MRI for any new lesions -Check A1c -Check lipids -PT/OT Recent right MCA stroke -July 2020 -Status post right carotid artery stenting -It appears that the patient is likely vasculopath with history of coronary disease/PVD/strokes -Check lipids and A1c -Continue current antiplatelets and anticoagulant -Has baseline left-sided weakness, mild left facial droop, left-sided tingling and numbness, left central vision loss -Request records DM-2 -Patient does not appear to be on any treatment -Check hemoglobin A1c -SSI -Accu-Cheks Elevated blood pressure -Patient is on no medications at baseline -Trend here -As needed's available -I would not be surprised that the patient has untreated hypertension CAD -Status post CABG -Patient does not appear to be on any goal-directed therapy at this time -Check echo -I do not see any outpatient cardiology visits either Vitamin D deficiency -Continue vitamin D supplementation Depression -Continue Effexor -Patient seems very flat--> suspect his depression is undertreated -Reevaluate tomorrow when he is less acute DVT prophylaxis -Patient is fully anticoagulated with Eliquis CODE STATUS -Full code Charges/Coding Visit Charges Inpatient E&M: 80235 Init Hosp L3
--- NOTE | 2020-12-11 13:00 | NURSING ---
127 ABISAI OBS STROKE
--- NOTE | 2020-12-11 13:30 | NURSING ---
pt unsure on home medications. had errands to run but said she would call and read his prescription labels when she got home later this afternoon
--- NOTE | 2020-12-11 15:09 | NURSING ---
1510 pt up to BR with assist of 1, needs cues, tolerated well. wears Lt foot brace and both shoes. Axel Choudhury RN
[2020-12-11] MEDS: Insulin Lispro 100 UNIT/ML INSULN.PEN SC ×2 (16:56→22:04)
[2020-12-11 17:15] LABS: Bedside Glucose 194 mg/dL (70-110)
[2020-12-11] MEDS: APIXABAN 5 MG TABLET PO (22:05)
[2020-12-11 22:25] LABS: Bedside Glucose 170 mg/dL (70-110)
[2020-12-12] VITALS (14 sets, daily range): BP systolic 107–157; BP diastolic 56–100; PULSE 67–92; RESP 12–22; TEMP 36.3–36.8; O2SAT 94–98; BMI 29.2
--- NOTE | 2020-12-12 05:55 | MRI_ITS ---
STUDY: MRI BRAIN WITHOUT CONTRAST REASON FOR EXAM: Male, 70 years old. Stroke TECHNIQUE: Standardized multiplanar fat and water weighted pulse sequences were obtained. COMPARISON: CT head without contrast 12/04/2020. CTA head with contrast 12/11/2020. FINDINGS: Solitary punctate diffusion restriction in the cortex of the right middle temporal gyrus is consistent with acute ischemic infarction. Old cortical gyral ischemic infarct with cystic encephalomalacia and atrophy in the right frontal lobe and right parietal lobe. Smaller old cortical infarct with focal atrophy and encephalomalacia in the left posterior parietal lobe. Old lacunar cystic ischemic infarct in the left periventricular white matter. Normal age appropriate ventricles and cisterns. Few chronic white matter ischemic changes in both cerebral hemispheres. Normal bilateral basal ganglia. Normal thalami. There is no extra-axial fluid accumulation. Normal flow voids within the major intracranial circulation suggesting patency by spin echo criteria. Normal sella turcica, pituitary gland, infundibular stalk, optic chiasm and hypothalamus. Normal tectal plate and pineal gland. Normal midbrain, david and medulla. Normal cerebellum. Normal basal cisterns. Normal bilateral temporal bones. Normal bilateral internal auditory canals. No demonstrated orbital abnormality, within the constraints of a routine brain study. Normal visualized paranasal sinuses. Normal calvarium and skull base. Normal visualized soft tissue structures. Normal visualized upper cervical spine. MRI/Brain without Contrast IMPRESSION: 1. Solitary punctate acute ischemic infarct in the cortex of the right middle temporal gyrus. 2. Old cortical based ischemic infarction with cystic encephalomalacia and atrophy in the right frontal lobe, right parietal lobe and left posterior parietal lobe. 3. Old lacunar cystic infarct in the left periventricular white matter. N.B. : The above Results were Read Back by Petar Chapin MD to Petar Haley-waste cotton cleaner, RN, and understanding confirmed on 12/12/2020 10:57:38 (ET). Electronically Signed: Petar Chapin MD at 10:47 EDT , Service support ,
[2020-12-12] MEDS: Insulin Lispro 100 UNIT/ML INSULN.PEN SC ×4 (06:39→22:09)
[2020-12-12 06:47] LABS: Absolute Lymphocyte Count 1.75 X10^3/uL (0.83-4.51); Basophil# 0.06 X10^3/uL; Basophil% 0.9 % (0-1); Eosinophils% 2.9 % (0-5); Hematocrit 47.6 % (40-54); Hemoglobin 15.9 g/dL (13.0-16.5); Lymphocyte # 1.75 X10^3/ul (0.83-4.51); Lymphocyte % 25.7 % (19-41); Mean Corp Hgb Conc 33.4 g/dL (32-36); Mean Corpuscular Hgb 31.4 pg (27.0-32.0); Mean Corpuscular Volume 93.9 fL (80-94); Mean Platelet Vol. 9.6 fl (6.2-12.0); Monocyte# 0.71 X10^3/uL; Monocyte% 10.4 % (0-10); NRBC Flagged by Analyzer 0 % (0-5); Neutrophil # 4.04 X10^3/uL (2.7-7.7); Neutrophil % 59.5 % (47-70); Platelet Count 196 K/mm3 (150-450); RBC Distribution Width SD 47.4 fl (35.1-43.9); Red Blood Count 5.07 M/mm3 (4.6-6.2); White Blood Count 6.8 K/mm3 (4.4-11.0)
[2020-12-12 06:55] LABS: Bedside Glucose 175 mg/dL (70-110)
[2020-12-12 07:11] LABS: Anion Gap 9 (5-15); BUN 16 mg/dL (7-18); BUN/Creat Ratio 14.5 RATIO (10-20); Calcium,Total 8.8 mg/dL (8.5-10.1); Chloride 105 mmol/L (98-107); Cholesterol 238 mg/dL (200); EST Glomerular Filtration Rate 70 mL/min (>60); Est Glom Filt Rate - Afr Amer 85 mL/min (>60); Estimated Creatinine Clearance 60.45 ml/min; Glucose 167 mg/dL (74-106); High Density Lipoprotein 45 mg/dL; Magnesium 2.3 mg/dL (1.6-2.6); Phosphorus 3.2 mg/dL (2.5-4.9); Potassium 3.8 mmol/L (3.5-5.1); Sodium Level 137 mmol/L (136-145); Triglycerides 182 mg/dL; Very Low Density Lipoprotein 36 mg/dL (5-40)
[2020-12-12] MEDS: Venlafaxine XR 75 MG Capsule PO (07:47)
[2020-12-12] MEDS: Aspirin 325 MG Tablet PO (07:47)
[2020-12-12] MEDS: Polyethylene Glycol 3350 17 GM PACKET PO (07:47)
[2020-12-12] MEDS: APIXABAN 5 MG TABLET PO (07:47)
[2020-12-12] MEDS: Cholecalciferol (VIT D3) 25 MCG TABLET (1,000 UNITS) 125 MCG PO (07:47)
[2020-12-12] MEDS: Clopidogrel Bisulfate 75 MG Tablet PO (07:48)
[2020-12-12] MEDS: oxyCODONE 5 MG Tablet 10 MG PO ×2 (07:55→16:08)
[2020-12-12 07:59] LABS: Hemoglobin A1c 9.6 % (3.8-5.6)
[2020-12-12] MEDS: 0.9% Saline Lock 10 ML Syringe IV ×2 (08:49→22:15)
[2020-12-12] MEDS: LORazepam 2 MG/ML Syringe 1 MG IV (08:49)
--- NOTE | 2020-12-12 11:30 | TELEMED_ITS ---
[facility] Tele[facility] has confirmed receipt of a request for visit. This document confirms receipt of the order initiating the consult. To find the results of the consultation, please view the patient's reports for the scanned Telemed Consult.
[2020-12-12 11:55] LABS: Bedside Glucose 155 mg/dL (70-110)
--- NOTE | 2020-12-12 15:49 | CASEMGMT ---
SW completed a PHQ 9 with patient as he did have a Stroke. He scored a 14 which indicates moderate depression. He did say at times he feels he would be better off . He does not feel like hurting himself. Patient's was also present and she said they both have had a tough time the last couple of years. They have been through a lot together and COVID did not help. They both wanted resources for counseling. KANDI also gave patient information about [facility] Stroke support group. SW will have him added to the Stroke support group mailing list. KANDI gave them information on counselors. Tanisha Carney ADA ACCOMMODATION CONSULTANT MARIAM
--- NOTE | 2020-12-12 16:14 | CASEMGMT ---
This RN CM to room with PRITCHARD form, explanation done-pt/ voice understanding, and signs PRITCHARD form for pt as he is on the phone at this time. Original to chart and copy to pt. CM to follow. Josh FRANKEL CM
[2020-12-12 16:41] LABS: Bedside Glucose 183 mg/dL (70-110)
--- NOTE | 2020-12-12 16:46 | PN.HOSP_ITS ---
Subjective Subjective Patient seen and examined. He was admitted with a complaint of new left-sided visual changes. He still states it persists this morning but has no other complaints. He does have residual left-sided weakness from a previous stroke in July this year. Review of symptoms otherwise negative. Objective Data Objective Data Vital Signs: Vital Signs Temp Pulse Resp BP Pulse Ox 97.8 F 92 16 145/80 H 95 12/12/20 16:00 12/12/20 16:00 12/12/20 16:00 12/12/20 16:00 12/12/20 16:00 Oxygen Flow Rate (L/min) 2 Oxygen Delivery Method Room Air Weight: 192 lb 10.944 oz Body Mass Index (BMI) 29.2 Intake & Output: Intake and Output for Last 24 Hours 12/10/20 12/11/20 12/12/20 23:59 23:59 23:59 Intake Total 300 / 540 600 / 600 Output Total 550 / 550 Balance 300 / 340 50 / 50 Lab / Micro Data Result Diagrams: 12/12/20 06:28 12/12/20 06:28 Labs: Laboratory Results - last 24 hr 12/11/20 12/11/20 12/12/20 16:51 22:04 06:28 WBC 6.8 RBC 5.07 Hgb 15.9 Hct 47.6 MCV 93.9 MCH 31.4 MCHC 33.4 RDW Std Deviation 47.4 H RDW Coeff of Melodie 14.0 Plt Count 196 MPV 9.6 Immature Gran % (Auto) 0.600 Neut % (Auto) 59.5 Lymph % (Auto) 25.7 [place] % (Auto) 10.4 H Eos % (Auto) 2.9 Baso % (Auto) 0.9 Absolute Neuts (auto) 4.0 Absolute Lymphs (auto) 1.75 Nucleated RBC % 0 Sodium Potassium Chloride Carbon Dioxide Anion Gap BUN Creatinine Estim Creat Clear Calc Est GFR (MDRD) Af Amer Est GFR (MDRD) Non-Af BUN/Creatinine Ratio Glucose Hemoglobin A1c Calcium Phosphorus Magnesium Triglycerides Cholesterol LDL Cholesterol VLDL Cholesterol HDL Cholesterol POC Glucose 194 H 170 H 12/12/20 12/12/20 12/12/20 06:28 06:28 06:37 WBC RBC Hgb Hct MCV MCH MCHC RDW Std Deviation RDW Coeff of Melodie Plt Count MPV Immature Gran % (Auto) Neut % (Auto) Lymph % (Auto) [place] % (Auto) Eos % (Auto) Baso % (Auto) Absolute Neuts (auto) Absolute Lymphs (auto) Nucleated RBC % Sodium 137 Potassium 3.8 Chloride 105 Carbon Dioxide 23.0 Anion Gap 9 BUN 16 Creatinine 1.10 Estim Creat Clear Calc 60.45 Est GFR (MDRD) Af Amer 85 Est GFR (MDRD) Non-Af 70 BUN/Creatinine Ratio 14.5 Glucose 167 H Hemoglobin A1c 9.6 H Calcium 8.8 Phosphorus 3.2 Magnesium 2.3 Triglycerides 182 Cholesterol 238 H LDL Cholesterol 157 H VLDL Cholesterol 36 HDL Cholesterol 45 POC Glucose 175 H 12/12/20 12/12/20 11:51 16:17 WBC RBC Hgb Hct MCV MCH MCHC RDW Std Deviation RDW Coeff of Melodie Plt Count MPV Immature Gran % (Auto) Neut % (Auto) Lymph % (Auto) [place] % (Auto) Eos % (Auto) Baso % (Auto) Absolute Neuts (auto) Absolute Lymphs (auto) Nucleated RBC % Sodium Potassium Chloride Carbon Dioxide Anion Gap BUN Creatinine Estim Creat Clear Calc Est GFR (MDRD) Af Amer Est GFR (MDRD) Non-Af BUN/Creatinine Ratio Glucose Hemoglobin A1c Calcium Phosphorus Magnesium Triglycerides Cholesterol LDL Cholesterol VLDL Cholesterol HDL Cholesterol POC Glucose 155 H 183 H Radiography Diagnostic Testing: Radiology Impression Echocardiogram 12/11/20 12:18 Interpretation Summary Normal LV size. The estimated ejection fraction is 35 %. Stage 1 diastolic dysfunction. 2.1 x 1.8 cm thrombus mildly calcified noted in the apex Moderate segmental systolic dysfunction (see wall motion). Thrombus appears to be chronic. Contrast injection was performed. Ordering Physician: Mark^Melisa^^^ Referring Physician: Mckayla Silva Performed By: Marybeth Shi, ED, RVT Brain MRI 12/12/20 05:55 IMPRESSION: 1. Solitary punctate acute ischemic infarct in the cortex of the right middle temporal gyrus. 2. Old cortical based ischemic infarction with cystic encephalomalacia and atrophy in the right frontal lobe, right parietal lobe and left posterior parietal lobe. 3. Old lacunar cystic infarct in the left periventricular white matter. N.B. : The above Results were Read Back by Petar Chapin MD to Petar Haley-Mirna FRANKEL, RN, and understanding confirmed on 12/12/2020 10:57:38 (ET). Electronically Signed: Petar Chapin MD at 10:47 EDT , Service support , Physical Exam Const alert, oriented x3 and no apparent distress General Appearance: cooperative Exam Limitations: no limitations HEENT normocephalic, head/scalp atraumatic, hearing grossly normal bilaterally, moist oral mucous membranes and oropharynx normal Head and Scalp: normocephalic Eyes PERRL, EOMs intact bilaterally and conjunctivae normal Eyes Narrative: Mild scleral injection bilaterally Neck no lymphadenopathy, supple, no JVD and no carotid bruits Neck Narrative: Trachea midline, thyroid without enlargement or nodules Resp normal respiratory effort, no retractions, no use of accessory muscles and clear to auscultation bilaterally Auscultation: Negative for crackles, rales, rhonchi or wheezes Cardio regular rate, regular rhythm, S1 normal heart sound, S2 normal heart sound and no murmurs GI normal to inspection, nondistended, normoactive bowel sounds, soft to palpation, non-tender and non-distended Extremity normal to inspection, full ROM and no clubbing, cyanosis or edema Peripheral Pulses: Yes pulses 2+ throughout Skin no rashes or lesions noted, no wounds and skin turgor normal Neuro oriented x3 Neuro Narrative: mild left facial droop, which is chronic. Mild LUE and LLE weakness, with power being 4/5, which is residual from previous stroke. Sensorium / Orientation: awake, alert, oriented to person, oriented to place and oriented to time Speech: speech normal Psych affect normal Psych Narrative: flat affect Assessment & Plan Assessment/Plan (1) Vision changes: (2) Type II diabetes mellitus: QUALIFIERS: Diabetes mellitus fci insulin use: without fci use Diabetes mellitus complication detail: with foot ulcer (3) PAD (peripheral artery disease): (4) Stroke: PLAN: #Acute CVA * MRI of the brain shows solitary punctate acute ischemic infarct in the cortex of the right middle temporal gyrus. However per neurology recommendation, patient also has another focal infarct in the brain * Patient already on aspirin and Plavix as well as Eliquis. Neurology recommends a WESLEY to evaluate for A. fib * Discussed with cardiology, to have WESLEY tomorrow. Will hold Eliquis tomorrow. * A1c is elevated at over 9. Not on statin. Will initiate statin * PT OT on board. * Has a history of recent MCA stroke and is s/p right carotid artery stenting. * # #Type 2 diabetes mellitus * A1c is elevated at 9.6. Not on any treatment. * Will start patient on Lantus 10 units nightly. Insulin sliding scale. Accu- Cheks AC at bedtime. Also start p.o. Metformin * #Hyperlipidemia: Lipid panel is elevated. Patient not on any statins. Will start high intensity statin. #CAD s/p CABD echo pending. On aspirin and will start statin. Also on Plavix. #Elevated blood pressure * Blood pressure has been elevated since admission. Patient not on any blood pressure medications at home. * Will allow for permissive hypertension will initiate blood pressure medications tomorrow * #Depression: On Effexor DVT prophylaxis: On Eliquis Charges/Coding Visit Charges Inpatient E&M: 96408 Subs Hosp L2
[2020-12-12] MEDS: Atorvastatin Calcium 40 MG Tablet PO (22:16)
[2020-12-12 22:41] LABS: Bedside Glucose 212 mg/dL (70-110)
[2020-12-13] VITALS (8 sets, daily range): BP systolic 113–151; BP diastolic 68–79; PULSE 64–83; RESP 16–18; TEMP 36.3–36.9; O2SAT 94–98; BMI 29.2
--- NOTE | 2020-12-13 05:55 | EKG12_ITS ---
Test Reason : AM EKG Blood Pressure : / mmHG Vent. Rate : 080 BPM Atrial Rate : 080 BPM P-R Int : 160 ms QRS Dur : 146 ms QT Int : 426 ms P-R-T Axes : 031 187 038 degrees QTc Int : 491 ms Sinus rhythm with frequent Premature ventricular complexes Right bundle branch block Inferior infarct , age undetermined T wave abnormality, consider lateral ischemia Abnormal ECG Confirmed by CHUCK MEEK, BHARATHI ([id number]), assignment editor CAROLYN HYLTON ([id number]) on 12/14/2020 10:43:16 AM Referred By: BAISAI Confirmed By:BHARATHI WOODS MD
[2020-12-13] MEDS: Insulin Lispro 100 UNIT/ML INSULN.PEN SC ×2 (06:36→11:18)
[2020-12-13 07:06] LABS: Bedside Glucose 159 mg/dL (70-110)
[2020-12-13 07:09] LABS: Absolute Lymphocyte Count 1.62 X10^3/uL (0.83-4.51); Absolute Neutrophil Count 3.8 X10^3/uL (2.0-7.7); Basophil# 0.07 X10^3/uL; Basophil% 1.1 % (0-1); Eosinophil# 0.38 X10^3/uL; Eosinophils% 5.7 % (0-5); Hematocrit 45.2 % (40-54); Hemoglobin 15.1 g/dL (13.0-16.5); Lymphocyte # 1.62 X10^3/ul (0.83-4.51); Lymphocyte % 24.4 % (19-41); Mean Corp Hgb Conc 33.4 g/dL (32-36); Mean Corpuscular Hgb 31.6 pg (27.0-32.0); Mean Corpuscular Volume 94.6 fL (80-94); Mean Platelet Vol. 9.9 fl (6.2-12.0); Monocyte% 10.5 % (0-10); NRBC Flagged by Analyzer 0 % (0-5); Neutrophil # 3.84 X10^3/uL (2.7-7.7); Neutrophil % 57.7 % (47-70); Platelet Count 189 K/mm3 (150-450); RBC Distribution Width CV 13.9 % (11.6-14.6); RBC Distribution Width SD 48.8 fl (35.1-43.9); Red Blood Count 4.78 M/mm3 (4.6-6.2); White Blood Count 6.7 K/mm3 (4.4-11.0)
[2020-12-13 07:37] LABS: Anion Gap 7 (5-15); BUN 19 mg/dL (7-18); Calcium,Total 8.5 mg/dL (8.5-10.1); Chloride 106 mmol/L (98-107); Creatinine, Serum 1.27 mg/dL (0.70-1.30); EST Glomerular Filtration Rate 60 mL/min (>60); Est Glom Filt Rate - Afr Amer 72 mL/min (>60); Estimated Creatinine Clearance 52.36 ml/min; Glucose 142 mg/dL (74-106); Potassium 3.7 mmol/L (3.5-5.1); Sodium Level 136 mmol/L (136-145)
[2020-12-13] MEDS: oxyCODONE 5 MG Tablet 10 MG PO (08:17)
[2020-12-13] MEDS: Cholecalciferol (VIT D3) 25 MCG TABLET (1,000 UNITS) 125 MCG PO (08:27)
[2020-12-13] MEDS: Clopidogrel Bisulfate 75 MG Tablet PO (08:27)
[2020-12-13] MEDS: Venlafaxine XR 75 MG Capsule PO (08:28)
[2020-12-13] MEDS: Aspirin 325 MG Tablet PO (08:28)
[2020-12-13] MEDS: Polyethylene Glycol 3350 17 GM PACKET PO (08:28)
[2020-12-13 08:45] LABS: Bedside Glucose 207 mg/dL (70-110)
--- NOTE | 2020-12-13 10:45 | CASEMGMT ---
MARLYS FULTON Face to Face with patient for initial transition planning/care coordination assessment. RN CM introduced self and role at [facility]. Patient sitting in chair, alert and oriented. Patient willing to participate in assessment and is able to answer all questions appropriately. Care providers, pharmacy, and demographics verified. Patient wishes to discharge home, denies need for home health at this time. Patient states he has no further needs or concerns at this time. CM to follow for discharge planning needs that may arise. PCP:Ricardo Specialists: none Preferred Pharmacy: [facility] Insurance: [facility] [place] Prescription Benefit: yes Living Will/HPOA: yes, Ju Rodriguez LNOK: Living Arrangements: Patient lives with in a 1 story home with 4 steps and railing to enter the home. Patient states he is independent at home. Transportation: DME/HHC: Patient states he has shower seat, grab bars, cane, and walker at home. Patient states he has previously been to [facility] and [facility]. [facility]. Patient refusing HHC or SNF at discharge. Disposition Plan: Patient to discharge home with family support and follow-up plans in place. Savanna YU, RN, CM
--- NOTE | 2020-12-13 11:17 | DS.PCM_ITS ---
Providers Date of Admission: 12/12/20 Primary Care Physician: Dr. Mckayla iSlva DO Reason For Visit: STROKE Diagnosis Discharge Diagnosis (1) Vision changes: Status: Acute Code(s): H53.9 - Unspecified visual disturbance (2) Type II diabetes mellitus: Status: Chronic Code(s): E11.9 - Type 2 diabetes mellitus without complications Qualifiers: Diabetes mellitus extermination inspector insulin use: without custodial use Diabetes mellitus complication detail: with foot ulcer (3) PAD (peripheral artery disease): Status: Chronic Code(s): I73.9 - Peripheral vascular disease, unspecified (4) Stroke: Status: Chronic Code(s): I63.9 - Cerebral infarction, unspecified Medications at Discharge Home Medications apixaban 5 mg PO BID #60 tab 01/20/20 oxycodone 10 mg PO Q4H PRN PRN 3 Days #36 tab 01/20/20 amitriptyline 10 - 30 mg PO QHS 12/11/20 aspirin 1 tab PO DAILY 12/11/20 clopidogrel 75 mg PO DAILY 12/11/20 cyclobenzaprine 5 mg PO TID PRN 12/11/20 glyburide 5 mg PO DAILY 12/11/20 nystatin [Nystop] 1 applic TOPICAL TID PRN 12/11/20 venlafaxine 75 mg PO DAILY 12/11/20 atorvastatin 40 mg PO QHS #30 tab 12/13/20 insulin glargine 10 unit SUBCUT QPM #15 ml 12/13/20 Hospital Course Operations None Procedures 2-D Echocardiogram Summary of Care Provided Minutes Spent on Discharge: 45 Hospital Course: Patient is a 70-year-old male with a past medical history as outlined was admitted through the ED on 12/11/2020 with a complaint of left-sided visual changes. Patient had been seen in July 2020 with new onset left- sided weakness and was found to have severe stenosis with high-grade features in the right coronary artery. He was emergently transferred to [facility] where he had a balloon angioplasty and stenting of the right carotid artery and he has had some residual left-sided weakness and left-sided facial numbness. Patient woke up on the morning of this admission with blurriness left eye and said it was worse compared to what had been previously. Patient was on aspirin and Plavix and Eliquis. CT of the brain done was negative for any stroke and CTA showed normal left coronary artery with mild atherosclerosis and mild narrowing of the left carotid bulb with no hemodynamic significant left internal carotid artery stenosis and hypoplastic right A1 segment of the BRADY and the right common carotid artery stent. [facility] telestroke was contacted and recommended admission for repeat MRI and therapy services. Was admitted to be managed for probable stroke. Patient had MRI of the brain which showed evidence of a high left frontal punctate infarct in the right mid temporal gyrus acute infarct. Patient had 2D echo which showed left ventricular apical thrombus which was chronic. Patient was started on high intensity statin. Patient was on Eliquis for the left ventricular thrombus and said initially that he was compliant with it. On further questioning however patient admitted to taking it only once daily instead of twice daily as suggested. A WESLEY was suggested by neurology but per discussion with cardiology, since patient had not been compliant with his Eliquis as suggested, the left ventricular apical thrombus was likely the cause of the stroke and so there was no clear need for a WESLEY. I did suggest to patient about possibly taking Xarelto as it was only once daily but he refused and said he had an allergic reaction to Xarelto, and had broken out in a rash after previously taking it in the past. Patient was also reluctant to take Coumadin was only agreeable to taking Eliquis. I counseled patient strongly about the need to be very compliant with his Eliquis twice daily. Patient cannot guarantee compliance as he said he hated taking pills. He had also not been following up with a neurologist or concrete tile machine operator. I suggested referring him to a neurologist and concrete tile machine operator but he said he did not like seeing doctors because of previous negative encounters with doctors previously. I again inquired about patient's depression whether he thought this was well controlled. Patient letter was being managed by his PCP and refused to consider pain referred to a psychiatrist or psychotherapist because he did not want to see any more providers and essentially said if he , he , but he was not going to take any more medications. I did call patient's to inform her about the need for strict compliance with his Eliquis and he will need to follow-up with his primary care doctor and will be referred to cardiology and neurology. Patient was seen and examined prior to discharge. He had no active complaints and review of systems was otherwise negative. He has remained hemodynamically stable. Labs and vitals reviewed. Home medications reviewed and reconciled. Physical Exam Const alert, oriented x3 and no apparent distress General Appearance: cooperative and comfortable Exam Limitations: no limitations HEENT normocephalic, head/scalp atraumatic, hearing grossly normal bilaterally, moist oral mucous membranes and oropharynx normal Eyes PERRL, EOMs intact bilaterally and conjunctivae normal Eyes Narrative: Mild scleral injection bilaterally Neck no lymphadenopathy, supple, no JVD and no carotid bruits Neck Narrative: Trachea midline, thyroid without enlargement or nodules Resp normal respiratory effort, no retractions, no use of accessory muscles and clear to auscultation bilaterally Auscultation: Negative for crackles, rales, rhonchi or wheezes Cardio regular rate, regular rhythm, S1 normal heart sound, S2 normal heart sound and no murmurs GI normal to inspection, nondistended, normoactive bowel sounds, soft to palpation, non-tender and non-distended Extremity normal to inspection, full ROM and no clubbing, cyanosis or edema Extremity Narrative: Left lower extremity foot drop with AFO in place Skin no rashes or lesions noted, no wounds and skin turgor normal Neuro oriented x3 Neuro Narrative: mild left facial droop, which is chronic. Mild LUE and LLE w eakness, with power being 4/5, which is residual from previous stroke. Sensorium / Orientation: awake, alert, oriented to person, oriented to place and oriented to time Speech: speech normal Psych Psych Narrative: flat affect Weight / BMI Weight Weight: 192 lb 10.944 oz Body Mass Index (BMI) 29.2 ABG / Lab / Microbiology Data Result Diagrams: 12/13/20 06:46 12/13/20 06:46 Laboratory: Laboratory Results - last 24 hr 12/11/20 12/12/20 12/12/20 10:56 11:51 16:17 WBC RBC Hgb Hct MCV MCH MCHC RDW Std Deviation RDW Coeff of Melodie Plt Count MPV Immature Gran % (Auto) Neut % (Auto) Lymph % (Auto) [place] % (Auto) Eos % (Auto) Baso % (Auto) Absolute Neuts (auto) Absolute Lymphs (auto) Nucleated RBC % Sodium Potassium Chloride Carbon Dioxide Anion Gap BUN Creatinine Estim Creat Clear Calc Est GFR (MDRD) Af Amer Est GFR (MDRD) Non-Af BUN/Creatinine Ratio Glucose Calcium POC Glucose 207 H 155 H 183 H 12/12/20 12/13/20 12/13/20 22:02 06:36 06:46 WBC 6.7 RBC 4.78 Hgb 15.1 Hct 45.2 MCV 94.6 H MCH 31.6 MCHC 33.4 RDW Std Deviation 48.8 H RDW Coeff of Melodie 13.9 Plt Count 189 MPV 9.9 Immature Gran % (Auto) 0.600 Neut % (Auto) 57.7 Lymph % (Auto) 24.4 [place] % (Auto) 10.5 H Eos % (Auto) 5.7 H Baso % (Auto) 1.1 H Absolute Neuts (auto) 3.8 Absolute Lymphs (auto) 1.62 Nucleated RBC % 0 Sodium Potassium Chloride Carbon Dioxide Anion Gap BUN Creatinine Estim Creat Clear Calc Est GFR (MDRD) Af Amer Est GFR (MDRD) Non-Af BUN/Creatinine Ratio Glucose Calcium POC Glucose 212 H 159 H 12/13/20 06:46 WBC RBC Hgb Hct MCV MCH MCHC RDW Std Deviation RDW Coeff of Melodie Plt Count MPV Immature Gran % (Auto) Neut % (Auto) Lymph % (Auto) [place] % (Auto) Eos % (Auto) Baso % (Auto) Absolute Neuts (auto) Absolute Lymphs (auto) Nucleated RBC % Sodium 136 Potassium 3.7 Chloride 106 Carbon Dioxide 23.0 Anion Gap 7 BUN 19 H Creatinine 1.27 Estim Creat Clear Calc 52.36 Est GFR (MDRD) Af Amer 72 Est GFR (MDRD) Non-Af 60 BUN/Creatinine Ratio 15.0 Glucose 142 H Calcium 8.5 POC Glucose Radiography Diagnostic Testing: Radiology Impression Echocardiogram 12/11/20 12:18 Interpretation Summary Normal LV size. The estimated ejection fraction is 35 %. Stage 1 diastolic dysfunction. 2.1 x 1.8 cm thrombus mildly calcified noted in the apex Moderate segmental systolic dysfunction (see wall motion). Thrombus appears to be chronic. Contrast injection was performed. Ordering Physician: Mark^Melisa^^^ Referring Physician: Mckayla Silva Performed By: Marybeth Shi, RDCS, RVT Brain MRI 12/12/20 05:55 IMPRESSION: 1. Solitary punctate acute ischemic infarct in the cortex of the right middle temporal gyrus. 2. Old cortical based ischemic infarction with cystic encephalomalacia and atrophy in the right frontal lobe, right parietal lobe and left posterior parietal lobe. 3. Old lacunar cystic infarct in the left periventricular white matter. N.B. : The above Results were Read Back by Petar Chapin MD to Petar Haley-director of social services, RN, and understanding confirmed on 12/12/2020 10:57:38 (ET). Electronically Signed: Petar Chapin MD at 10:47 EDT , Service support , D/C Instructions Discharge Diet: 2000 mg Sodium Diet Discharge Activity: Return to Normal Activity Weight Bearing Status: Weight bearing as tolerated Call your doctor if you observe: Fever of 101 or Higher, Numbness or Tingling, Dizziness, Chest pain and Increased palpitations (irregular heartbeat) Meaningful Use Info Meaningful Use Diagnoses (Choose all that apply): Ischemic CVA CVA Therapy Assessed for PT,OT and/or ST?: Yes Ischemic Stroke Antithrombotic order at d/c?: Yes Dx of Atrial fib/flutter?: No Anticoagulant at discharge?: Yes Statins at discharge?: Yes Primary Dx Acute Ischemic CVA?: Yes IV tPA ordered during stay?: No Reason IV t-PA not ordered: Treatment not Indicated Discharge Plan Admission Admit Date/Time: 12/12/20 17:26 Primary Reason for Your Visit: acute ischemic CVA Attending Provider: No Stephenson Primary Care Provider: Mckayla Silva Instructions Patient Instructions: Stroke Mood Swings Depression, Stroke: Resources and Support, Risk Factors for Stroke Discharge Orders/Prescriptions Prescriptions: New atorvastatin 40 mg Tablet 40 mg PO QHS Qty: 30 RF: 1 insulin glargine 100 unit/mL (3 mL) insulin pen 10 unit subcut QPM Qty: 15 RF: 1 Continued apixaban 5 MG tablet 5 mg PO BID Qty: 60 RF: 0 oxycodone 5 MG tablet 10 mg PO Q4H PRN PRN (Reason: Pain Score 4-10/10) 3 Days Qty: 36 RF: 0 glyburide 5 mg Tablet 5 mg PO DAILY RF: 0 clopidogrel 75 mg Tablet 75 mg PO DAILY RF: 0 amitriptyline 10 mg Tablet 10 - 30 mg PO QHS RF: 0 cyclobenzaprine 5 mg Tablet 5 mg PO TID PRN (Reason: muscle spasms) RF: 0 venlafaxine 75 mg Tablet Extended Release 24hr 75 mg PO DAILY RF: 0 aspirin 81 mg tablet,chewable 1 tab PO DAILY RF: 0 nystatin [Nystop] 100,000 unit/gram powder 1 applic TOPICAL TID PRN (Reason: yeast) RF: 0 Referrals / Follow Up: Low Donald MD [STAFF PHYSICIAN] - Within 1 Month Mckayla Silva DO [Primary Care Provider] - Within 1 Week Ziggy Patel MD [STAFF PHYSICIAN] - Within 2 Weeks Disposition Disposition (needs filled in before D/C Order can be placed): Home, Self Care Charges/Coding Visit Charges Inpatient E&M: 41743 Disch Hosp
[2020-12-13 11:21] LABS: Bedside Glucose 194 mg/dL (70-110)
--- NOTE | 2020-12-13 12:30 | CASEMGMT ---
Dr. Stephenson wants to make sure that Lantus is covered for pt and med e-scribed to [facility]. [facility] and per tech, med is covered and co-pay for 5 month supply is about $105. Pt/ voice no further questions/concerns/needs. Josh FRANKEL CM
--- NOTE | 2020-12-13 14:18 | CASEMGMT ---
[facility] palliative screening tool completed and pt does not qualify for referral at this time. SSteloisa RN CM
--- NOTE | 2020-12-13 14:43 | PHA.DC.MC ---
Pharmacy Service has performed discharge medication reconciliation and counseling for this patient. 1. ATORVASTATIN 40MG PO QHS 2. INSULIN GLARGINE 10UNITS SC QHS The patient's discharge medication list was reviewed for discrepancies and discrepancies were resolved. Patient was not sent pen needles. RN KIRSTIN Corrales, texted Dr. Stephenson and asked for pen needles to be e-scribed to the pharmacy. Home Medications apixaban 5 mg PO BID #60 tab 01/20/20 oxycodone 10 mg PO Q4H PRN PRN 3 Days #36 tab 01/20/20 amitriptyline 10 - 30 mg PO QHS 12/11/20 aspirin 1 tab PO DAILY 12/11/20 clopidogrel 75 mg PO DAILY 12/11/20 cyclobenzaprine 5 mg PO TID PRN 12/11/20 glyburide 5 mg PO DAILY 12/11/20 nystatin [Nystop] 1 applic TOPICAL TID PRN 12/11/20 venlafaxine 75 mg PO DAILY 12/11/20 atorvastatin 40 mg PO QHS #30 tab 12/13/20 insulin glargine 10 unit SUBCUT QPM #15 ml 12/13/20 The patient was counseled on the following discharge medications and changes in medications for homegoing were reviewed. The Reason for Use, instructions for use, and potential side effects were reviewed for all new medications. The patient's questions regarding all of their medications were answered. The patient was able to verbally demonstrate an understanding of their discharge medications.
--- NOTE | 2020-12-14 14:48 | CASEMGMT ---
MARLYS FULTON Discharge F/U Phone Call LACE: 10 Strata: 3 Discharge date: 12/13/20 Call date: 12/14/20 Call time: [phone] Admission dx: Stroke Pt answered phone and states is 'doing fine' since discharge. Pt states no questions regarding discharge medications or instructions and states no questions regarding insulin. Pt states does not have f/u appt's scheduled but this RN CM advised pt that f/u appts with cardio and neuro are listed on instructions, pt voices understanding. Pt states only suggestion for [facility] is 'better food.' Pt voices no further questions/concerns/needs. SStaten MARLYS FULTON
== END 2020-12-13 14:44 | disposition home or self-care (01) | DRG 65 ==
LOC: ED 12:00 → PCU 12:27
PROVIDERS: Admitting Provider Internal Medicine; Emergency Provider Emergency Medicine; PCP Family Medicine; Visit Provider Student in an Organized Health Care Education/Training Program
DX: I63.9 Cerebral infarction, unspecified (principal); H53.8 Other visual disturbances; R29.701 NIHSS score 1; I51.3 Intracardiac thrombosis, not elsewhere classified; I69.354 Hemiplegia and hemiparesis following cerebral infarction affecting left non-dominant side; I69.392 Facial weakness following cerebral infarction; I25.10 Atherosclerotic heart disease of native coronary artery without angina pectoris; E11.51 Type 2 diabetes mellitus with diabetic peripheral angiopathy without gangrene; I10 Essential (primary) hypertension; E78.5 Hyperlipidemia, unspecified; M21.372 Foot drop, left foot; E55.9 Vitamin D deficiency, unspecified; F32.9 Major depressive disorder, single episode, unspecified; E66.3 Overweight; Z68.29 Body mass index [BMI] 29.0-29.9, adult; Z91.14 Patient's other noncompliance with medication regimen; Z79.01 Long term (current) use of anticoagulants; Z79.02 Long term (current) use of antithrombotics/antiplatelets; Z79.82 Long term (current) use of aspirin; Z79.4 Long term (current) use of insulin; Z79.899 Other long term (current) drug therapy; Z95.1 Presence of aortocoronary bypass graft
CPT/HCPCS: 36415; 70450; 70496; 70498; 70551; 71045; 80048; 80061; 82962; 83036; 83735; 84100; 84484; 85025; 85610; 85730; 92523; 92610; 93005; 93306; 94762; 97162; 97166; 97530; 97535; 97802; 99251; 99284; Q9957; Q9967; A4216; C8929; G0463; J3490

== ENCOUNTER 2021-07-31 16:50 | Outpatient (CLI) | payer MEDICARE, OTHER, SELFPAY | END 2021-07-31 23:59 | disposition home or self-care (01) | LOC: LABSPEC 08-02 09:22 | PROVIDERS: PCP Family Medicine; Referring Provider Family Medicine; Visit Provider Family Medicine | DX: Z20.822 Contact with and (suspected) exposure to COVID-19 (principal) | CPT/HCPCS: 87635; U0003; U0005 ==

== ENCOUNTER 2021-08-13 16:19 | Inpatient (IN) | payer MEDICARE, OTHER, SELFPAY ==
[2021-08-13] VITALS (10 sets, daily range): BP systolic 123–147; BP diastolic 58–101; PULSE 99–107; RESP 16–34; TEMP 36.6–37.2; O2SAT 87–98; BMI 28.8; BMI 27.6
--- NOTE | 2021-08-13 16:27 | EKG12_ITS ---
Test Reason : SOB Blood Pressure : / mmHG Vent. Rate : 108 BPM Atrial Rate : 108 BPM P-R Int : 152 ms QRS Dur : 130 ms QT Int : 364 ms P-R-T Axes : 029 207 035 degrees QTc Int : 487 ms Sinus tachycardia with occasional Premature ventricular complexes Right bundle branch block Lateral infarct , age undetermined Inferior infarct , age undetermined Abnormal ECG Confirmed by GODFREY MEEK, CARA ([id number]), editor book CAROLYN HYLTON ([id number]) on 08/15/2021 11:09:33 AM Referred By: ROSA Confirmed By:CARA DONAHUE MD
--- NOTE | 2021-08-13 16:52 | ED.VIS.DYS ---
HPI History of Present Illness Chief Complaint: Shortness of Breath Narrative Narrative: Patient presents with his because of 3 days of increasing shortness of breath and dyspnea on exertion. He denies any fevers or chills, but states he has cough that is nonproductive. He denies any increased swelling of his legs. No nausea or vomiting. No other symptoms. He denies chest pain or chest tightness. No sick contacts. He had been immunized for COVID-19 and received 2 shots. He has problems with dropfoot so he has a brace on his left lower extremity but once again denies any increased swelling or other symptoms. [facility] Medical History (Updated 08/13/21 @ 19:24 by Petar Moraes MD) Back pain with history of spinal surgery Coronary artery disease Diabetes mellitus Foot drop, left foot History of right common carotid artery stent placement Hyperlipidemia Hypertension Peripheral arterial occlusive disease Peripheral vascular disease Home Medications apixaban 5 mg PO BID #60 tab 01/20/20 [Rx Last Taken 12/11/20] aspirin 1 tab PO DAILY 12/11/20 [History Last Taken 12/10/20] clopidogrel 75 mg PO DAILY 12/11/20 [History Last Taken 12/10/20] glyburide 10 mg PO DAILY 12/11/20 [History Last Taken 12/10/20] venlafaxine 75 mg PO DAILY 12/11/20 [History Last Taken Unknown] doxycycline monohydrate 100 mg PO DAILY 08/13/21 [History Last Taken Unknown] fluconazole [Diflucan] 200 mg PO FR 08/13/21 [History Last Taken Unknown] folic acid 1 mg PO DAILY 08/13/21 [History Last Taken Unknown] glyburide 5 mg PO DINNER 08/13/21 [History Last Taken Unknown] methotrexate sodium 9 mg PO FR 08/13/21 [History Last Taken Unknown] tadalafil 5 mg PO DAILY PRN PRN 08/13/21 [History Last Taken Unknown] Allergy/AdvReac Type Severity Reaction Status Date / Time morphine Allergy PT UNSURE Verified 08/13/21 16:20 OF REACTION rivaroxaban [From Xarelto] Allergy Other Verified 08/13/21 16:20 Family History (Updated 08/13/21 @ 18:[address] Zulay Jiang MD) Mother CVA (cerebral vascular accident) Diabetes Heart disease Hypertension Father Diabetes Heart disease Pulmonary disease Surgical History (Updated 08/13/21 @ 18:[address] Zulay Jiang MD) History of back surgery Hx of CABG S/P peripheral artery bypass Status post right foot surgery Social History (Updated 08/13/21 @ 18:[address] Zulay Jiang MD) household members: spouse Smoking Status: Never smoker alcohol intake: never substance use type: does not use ROS ROS ED ROS Narrative Constitutional: No fever, no chills. HEENT: No sore throat. No neck pain. No loss of vision. No rhinorrhea. Cardiovascular: No chest pain. No palpitations. No pedal edema. Respiratory: Positive cough, positive shortness of breath. Positive dyspnea on exertion. Abdominal: No abdominal pain. No nausea. No vomiting. Genitourinary: No dysuria. No hematuria. Musculoskeletal: No myalgias. No arthralgias. Neurologic: No headaches. No dizziness. No lightheadedness. Chronic dropfoot left side. Skin: No rash. No change in color. Psychiatric: No depression. No anxiety. EXAM Physical Exam Narrative Exam Narrative: Afebrile. Vital signs noted. HEENT: Normocephalic. Atraumatic. PERRL, EOMI. Neck soft and supple. No point tenderness or step off. Cardiovascular: Regular tachycardia no murmurs, rubs, or gallops appreciated. Respiratory: Mild tachypnea. Lungs clear to auscultation bilaterally. Decreased breath sounds bilateral bases. No expiratory wheezing auscultated. Gastrointestinal: Abdomen soft, nontender, with normoactive bowel sounds. No rebound or guarding. Neurological: Awake. Alert. Nonfocal, nonlateralizing. Skin: No rash. Normal color. No pallor. Musculoskeletal: No pedal edema. Full range of motion extremities. Positive brace left lower extremity. Const Vital Signs: 08/13/21 16:20 08/13/21 16:27 08/13/21 16:47 Temperature 98.2 F Temperature Source Temporal Pulse Rate 102 H 106 H Respiratory Rate 16 32 H 34 H Respiratory Effort Respiratory Pattern Blood Pressure 123/87 H 147/95 H Blood Pressure Mean 99 112 Pulse Ox 95 87 92 Oxygen Delivery Method Room Air Room Air Room Air Oxygen Flow Rate (L/min) 08/13/21 17:01 08/13/21 17:10 08/13/21 17:24 Temperature 97.9 F Temperature Source Temporal Pulse Rate 100 107 H Respiratory Rate 20 H 26 H Respiratory Effort Respiratory Pattern Tachypnea Blood Pressure 137/97 H Blood Pressure Mean 110 Pulse Ox 96 Oxygen Delivery Method Nasal Cannula Nasal Cannula Oxygen Flow Rate (L/min) 2 2 08/13/21 18:11 Temperature Temperature Source Pulse Rate Respiratory Rate Respiratory Effort Short of Breath Labored Respiratory Pattern Tachypnea Blood Pressure Blood Pressure Mean Pulse Ox Oxygen Delivery Method Oxygen Flow Rate (L/min) MDM MDM MDM Narrative Medical decision making narrative: Comprehensive work-up was pursued. RN initially ordered labs and EKG per protocol. I did add a troponin in case this is his anginal equivalent, BNP, influenza swab, and Covid swab. He will be given a DuoNeb aerosolized treatment. Patient has a normal white count of 8.1, hemoglobin stable at 15.4, normal platelet count of 205. BMP shows chloride elevated at 112 with a normal sodium. Creatinine slightly elevated at 1.75 with a BUN of 28. Lactic acid elevated at 3.1. His glucose is elevated at 226 but he has a normal anion gap of 6. Troponin 54, BNP is elevated 882. Given his lactic acidosis I am hesitant to give him large aliquots of fluid given his BNP of 882. He will be bolused normal saline 500 mL and started on sepsis antibiotics for bilateral pneumonia as evidenced by his chest x-ray. I will discuss the patient with the hospitalist for admission. Patient was discussed with Dr. Jiang for admission. Currently he is in stable condition. Lab Data Attestation: I reviewed the patient's lab results. Labs: Laboratory Results - last 24 hr 08/13/21 08/13/21 08/13/21 17:05 17:05 17:05 WBC 8.1 RBC 4.55 L Hgb 15.4 Hct 45.2 MCV 99.3 H MCH 33.8 H MCHC 34.1 RDW Std Deviation 57.6 H RDW Coeff of Melodie 16.1 H Plt Count 205 MPV 10.1 Immature Gran % (Auto) 0.500 Neut % (Auto) 74.2 H Lymph % (Auto) 10.9 L [place] % (Auto) 8.6 Eos % (Auto) 4.9 Baso % (Auto) 0.9 Absolute Neuts (auto) 6.0 Absolute Lymphs (auto) 0.89 Nucleated RBC % 0 Sodium 140 Potassium 4.6 Chloride 112 H Carbon Dioxide 22.0 Anion Gap 6 BUN 28 H Creatinine 1.75 H Estim Creat Clear Calc 38.72 Est GFR (MDRD) Af Amer 50 L Est GFR (MDRD) Non-Af 41 L BUN/Creatinine Ratio 16.0 Glucose 226 H Lactic Acid Calcium 9.5 Troponin I High Sens 54 B-Natriuretic Peptide 882.9 H 08/13/21 17:05 WBC RBC Hgb Hct MCV MCH MCHC RDW Std Deviation RDW Coeff of Melodie Plt Count MPV Immature Gran % (Auto) Neut % (Auto) Lymph % (Auto) [place] % (Auto) Eos % (Auto) Baso % (Auto) Absolute Neuts (auto) Absolute Lymphs (auto) Nucleated RBC % Sodium Potassium Chloride Carbon Dioxide Anion Gap BUN Creatinine Estim Creat Clear Calc Est GFR (MDRD) Af Amer Est GFR (MDRD) Non-Af BUN/Creatinine Ratio Glucose Lactic Acid 3.1 H* Calcium Troponin I High Sens B-Natriuretic Peptide Radiography Diagnostic Testing: Clinical Impression(s) from Imaging Studies Chest X-Ray 08/13/21 18:11 IMPRESSION: Bilateral pneumonia. Electronically Signed: Minor Hodges MD at 18:33 EST , Discharge Plan Dx/Rx/DC Orders Clinical Impression: Bilateral pneumonia, CHF (congestive heart failure), Lactic acidosis Disposition Disposition: Acute Care [facility]
[2021-08-13] MEDS: Ipratropium/Albuterol Sulfate 3 ML AMPUL.NEB INHALATION (17:05)
[2021-08-13 17:16] LABS: Absolute Lymphocyte Count 0.89 X10^3/uL (0.83-4.51); Basophil# 0.07 X10^3/uL; Basophil% 0.9 % (0-1); Eosinophils% 4.9 % (0-5); Hematocrit 45.2 % (40-54); Hemoglobin 15.4 g/dL (13.0-16.5); Lymphocyte # 0.89 X10^3/ul (0.83-4.51); Lymphocyte % 10.9 % (19-41); Mean Corp Hgb Conc 34.1 g/dL (32-36); Mean Corpuscular Hgb 33.8 pg (27.0-32.0); Mean Corpuscular Volume 99.3 fL (80-94); Mean Platelet Vol. 10.1 fl (6.2-12.0); Monocyte% 8.6 % (0-10); NRBC Flagged by Analyzer 0 % (0-5); Neutrophil # 6.03 X10^3/uL (2.7-7.7); Neutrophil % 74.2 % (47-70); Platelet Count 205 K/mm3 (150-450); RBC Distribution Width CV 16.1 % (11.6-14.6); RBC Distribution Width SD 57.6 fl (35.1-43.9); Red Blood Count 4.55 M/mm3 (4.6-6.2); White Blood Count 8.1 K/mm3 (4.4-11.0)
[2021-08-13 17:36] LABS: Anion Gap 6 (5-15); BUN 28 mg/dL (7-18); Calcium,Total 9.5 mg/dL (8.5-10.1); Chloride 112 mmol/L (98-107); Creatinine, Serum 1.75 mg/dL (0.70-1.30); EST Glomerular Filtration Rate 41 mL/min (>60); Est Glom Filt Rate - Afr Amer 50 mL/min (>60); Estimated Creatinine Clearance 38.72 ml/min; Glucose 226 mg/dL (74-106); Potassium 4.6 mmol/L (3.5-5.1); Sodium Level 140 mmol/L (136-145); Troponin-I HS 54 pg/mL (3.0-78.0)
[2021-08-13 17:43] LABS: BNP,B-Type NATRIURETIC PEPTIDE 882.9 pg/mL (0-100)
--- NOTE | 2021-08-13 18:11 | RAD_ITS ---
STUDY: X-RAY CHEST REASON FOR EXAM: Male, 71 years old. CHEST PAIN sob TECHNIQUE: XR Chest 1 View COMPARISON: 12.11.20 FINDINGS: There is no demonstrated pleural abnormality. There is bilateral infiltrate. There are multiple median sternotomy wires. Normal size heart. Normal mediastinum and isaak. Normal visualized pulmonary arteries. There is atherosclerotic calcification of the aortic arch with tortuosity. There are diffuse degenerative changes of the visualized thoracic spine. There is degenerative osteoarthritis of the bilateral shoulders. There is no demonstrated abnormality of the visualized soft tissue structures of the upper abdomen. RAD/Chest 1 View (Portable) IMPRESSION: Bilateral pneumonia. Electronically Signed: Minor Hodges MD at 18:33 EST ,
[2021-08-13 18:28] LABS: Lactic Acid 3.1 mmol/L (0.4-1.9)
--- NOTE | 2021-08-13 19:58 | HP.PCM_ITS ---
Documented by User: JUAN Valencia 08/13/21 20:16 HPI - General General Date of Admission: 08/13/21 Date of Service: 08/13/21 Chief Complaint: Shortness of breath HPI Narrative TRAM RIVERA, is a 71 M who presents with reports of 3 days of increasing shortness of breath that is worse on exertion. Patient also reports a nonproductive cough, denies chest pain or chest tightness. Patient also states that his legs are chronically swollen and he has not noticed an increase in swelling. Patient is currently on 2 L nasal cannula oxygen, no oxygen use at baseline. Patient reports a medical history that includes diabetes type 2, history of multiple strokes, PAD, depression. [facility] Medical History Back pain with history of spinal surgery Coronary artery disease Diabetes mellitus Foot drop, left foot History of right common carotid artery stent placement Hyperlipidemia Hypertension Peripheral arterial occlusive disease Peripheral vascular disease Home Medications apixaban 5 mg PO BID #60 tab 01/20/20 [Rx Last Taken 12/11/20] aspirin 1 tab PO DAILY 12/11/20 [History Last Taken 12/10/20] clopidogrel 75 mg PO DAILY 12/11/20 [History Last Taken 12/10/20] glyburide 10 mg PO DAILY 12/11/20 [History Last Taken 12/10/20] venlafaxine 75 mg PO DAILY 12/11/20 [History Last Taken Unknown] doxycycline monohydrate 100 mg PO DAILY 08/13/21 [History Last Taken Unknown] fluconazole [Diflucan] 200 mg PO FR 08/13/21 [History Last Taken Unknown] folic acid 1 mg PO DAILY 08/13/21 [History Last Taken Unknown] glyburide 5 mg PO DINNER 08/13/21 [History Last Taken Unknown] methotrexate sodium 9 mg PO FR 08/13/21 [History Last Taken Unknown] tadalafil 5 mg PO DAILY PRN PRN 08/13/21 [History Last Taken Unknown] Allergy/AdvReac Type Severity Reaction Status Date / Time morphine Allergy PT UNSURE Verified 08/13/21 16:20 OF REACTION rivaroxaban [From Xarelto] Allergy Other Verified 08/13/21 16:20 Family History Mother CVA (cerebral vascular accident) Diabetes Heart disease Hypertension Father Diabetes Heart disease Pulmonary disease Surgical History History of back surgery Hx of CABG S/P peripheral artery bypass Status post right foot surgery Social History household members: spouse Smoking Status: Never smoker alcohol intake: never substance use type: does not use ROS Constitutional Constitutional: Reports malaise; Denies anorexia, chills, fatigue, fever(s) or weakness Cardiovascular Cardiovascular: Reports edema; Denies chest pain, palpitations or syncope Respiratory/Chest Respiratory/Chest: Reports cough, shortness of breath with exertion and wheezing; Denies chest tightness Gastrointestinal Gastrointestinal: Denies abdominal pain, constipation, diarrhea, nausea or vomiting Genitourinary Genitourinary: Denies dysuria Musculoskeletal Musculoskeletal: Denies back pain, extremity pain, joint pain, joint stiffness or joint swelling Integumentary Integumentary: Denies dry skin Neurologic Neurologic: Denies abnormal gait, abnormal speech, confusion or dizziness Psychiatric Psychiatric: Denies anxiety or depression Vital Signs Vital Signs Vital Signs: 08/13/21 16:20 08/13/21 16:27 08/13/21 16:47 Temperature 98.2 F Temperature Source Temporal Pulse Rate 102 H 106 H Respiratory Rate 16 32 H 34 H Respiratory Effort Respiratory Pattern Blood Pressure 123/87 H 147/95 H Blood Pressure Mean 99 112 Pulse Ox 95 87 92 Oxygen Delivery Method Room Air Room Air Room Air Oxygen Flow Rate (L/min) 08/13/21 17:01 08/13/21 17:10 08/13/21 17:24 Temperature 97.9 F Temperature Source Temporal Pulse Rate 100 107 H Respiratory Rate 20 H 26 H Respiratory Effort Respiratory Pattern Tachypnea Blood Pressure 137/97 H Blood Pressure Mean 110 Pulse Ox 96 Oxygen Delivery Method Nasal Cannula Nasal Cannula Oxygen Flow Rate (L/min) 2 2 08/13/21 18:11 08/13/21 19:22 Temperature 98.1 F Temperature Source Oral Pulse Rate 99 Respiratory Rate 24 H Respiratory Effort Short of Breath Labored Respiratory Pattern Tachypnea Blood Pressure 132/58 H Blood Pressure Mean 82 Pulse Ox 97 Oxygen Delivery Method Nasal Cannula Oxygen Flow Rate (L/min) 2 Weight Weight: 195 lb Body Mass Index (BMI) 28.8 Physical Exam Const alert, oriented x3 and no apparent distress General Appearance: cooperative HEENT normocephalic and head/scalp atraumatic Eyes conjunctivae normal and no scleral icterus Neck supple General: trachea midline Lymph Lymphatic: no lymphadenopathy noted Resp normal respiratory effort Auscultation: wheezes expiratory wheezes, scattered wheezes, anterior, posterior and throughout Cardio regular rate, regular rhythm, S1 normal heart sound and S2 normal heart sound Extremity normal capillary refill General Extremity: edema bilateral lower extremity Details: moderate and no tenderness to palpation of joints or extremities Skin General Skin Exam: no breakdown and turgor normal Lesions: no lesions Rashes: no rashes Neuro no focal motor deficits and no sensory deficits noted Speech: speech normal Motor Exam: Negative for general weakness Psych thought process normal, cooperative and affect normal Appearance: appropriate Results Lab / Micro Data Result Diagrams: 08/13/21 17:05 08/13/21 17:05 Labs: Laboratory Results - last 24 hr 08/13/21 17:05: WBC 8.1, RBC 4.55 L, Hgb 15.4, Hct 45.2, MCV 99.3 H, MCH 33.8 H, MCHC 34.1, RDW Std Deviation 57.6 H, RDW Coeff of Melodie 16.1 H, Plt Count 205, MPV 10.1, Immature Gran % (Auto) 0.500, Neut % (Auto) 74.2 H, Lymph % (Auto) 10.9 L, [place] % (Auto) 8.6, Eos % (Auto) 4.9, Baso % (Auto) 0.9, Absolute Neuts (auto) 6.0, Absolute Lymphs (auto) 0.89, Nucleated RBC % 0 08/13/21 17:05: Sodium 140, Potassium 4.6, Chloride 112 H, Carbon Dioxide 22.0, Anion Gap 6, BUN 28 H, Creatinine 1.75 H, Estim Creat Clear Calc 38.72, Est GFR (MDRD) Af Amer 50 L, Est GFR (MDRD) Non-Af 41 L, BUN/Creatinine Ratio 16.0, Glucose 226 H, Calcium 9.5, Troponin I High Sens 54 08/13/21 17:05: B-Natriuretic Peptide 882.9 H 08/13/21 17:05: Lactic Acid 3.1 H* Micro: Microbiology 08/13/21 17:03 Mucosa - Nasopharyngeal Influenza Types A,B Direct FA (AUGUSTINA) - Final 08/13/21 17:03 Nasal Secretion SARS-CoV-2 Antigen (Rapid) - Final Radiology Impression Chest X-Ray 08/13/21 18:11 IMPRESSION: Bilateral pneumonia. Electronically Signed: Minor Hodges MD at 18:33 EST Reading Location ID and State: [facility] / [place] , Service support , Assessment & Plan Assessment/Plan (1) Bilateral pneumonia: QUALIFIERS: Lung location: lower lobe of lung Pneumonia type: due to unspecified organism Qualified Code(s): J18.9 - Pneumonia, unspecified organism (2) CHF (congestive heart failure): QUALIFIERS: Heart failure chronicity: unspecified Heart failure type: unspecified Qualified Code(s): I50.9 - Heart failure, unspecified PLAN: 1. Bilateral pneumonia -Admit to PCU for cardiac monitoring -Encourage incentive spirometry -Oxygen per protocol, patient currently on 5 L nasal cannula oxygen, 3 L at baseline -PT and OT to eval and treat -Respiratory panel and Covid PCR ordered -CBC and BMP ordered for a.m. -Sputum culture, Legionella and strep antigen urine ordered, procalcitonin -Patient received ceftriaxone and azithromycin in ER, will continue -DuoNeb nebulizer treatments as well as as needed albuterol nebulizer treatments ordered -Normal saline 75 mL/h, monitor closely for fluid overload as there is some suspicion for CHF exacerbation as well 2. Possible CHF exacerbation -Patient has elevated BNP 882.9 however patient does not have a history of CHF -Echocardiogram ordered for a.m. -Daily weights -Trend cardiac enzymes -Cardiac calorie controlled diet ordered -Strict intake and output 3. Acute renal insufficiency -Patient current BUN and creatinine 28 and 1.75 elevated from baseline of 19 and 1.2 -BMP daily -Normal saline 75 mL/h 4. Lactic acidosis -Likely secondary to bilateral pneumonia -Will repeat per protocol 5. Diabetes mellitus type 2 -We will hold patient's oral medication regimen at this time -ACH S blood sugars with sliding scale insulin ordered 6. PAD -Continue apixaban aspirin and clopidogrel 7. Depression -continue venlafaxine DVT prophylaxis-chronically anticoagulated This patient was seen by JUAN Valencia under the supervision of Dr. Jiang. 33 minutes spent in clinical coordination of patient's plan of care. Documented by User: Dr. Zulay Jiang MD 08/13/21 20:18 HPI - General General Date of Admission: 08/13/21 [facility] Medical History Back pain with history of spinal surgery Coronary artery disease Diabetes mellitus Foot drop, left foot History of right common carotid artery stent placement Hyperlipidemia Hypertension Peripheral arterial occlusive disease Peripheral vascular disease Home Medications apixaban 5 mg PO BID #60 tab 01/20/20 [Rx Last Taken 12/11/20] aspirin 1 tab PO DAILY 12/11/20 [History Last Taken 12/10/20] clopidogrel 75 mg PO DAILY 12/11/20 [History Last Taken 12/10/20] glyburide 10 mg PO DAILY 12/11/20 [History Last Taken 12/10/20] venlafaxine 75 mg PO DAILY 12/11/20 [History Last Taken Unknown] doxycycline monohydrate 100 mg PO DAILY 08/13/21 [History Last Taken Unknown] fluconazole [Diflucan] 200 mg PO FR 08/13/21 [History Last Taken Unknown] folic acid 1 mg PO DAILY 08/13/21 [History Last Taken Unknown] glyburide 5 mg PO DINNER 08/13/21 [History Last Taken Unknown] methotrexate sodium 9 mg PO FR 08/13/21 [History Last Taken Unknown] tadalafil 5 mg PO DAILY PRN PRN 08/13/21 [History Last Taken Unknown] Allergy/AdvReac Type Severity Reaction Status Date / Time morphine Allergy PT UNSURE Verified 08/13/21 16:20 OF REACTION rivaroxaban [From Xarelto] Allergy Other Verified 08/13/21 16:20 Family History Mother CVA (cerebral vascular accident) Diabetes Heart disease Hypertension Father Diabetes Heart disease Pulmonary disease Surgical History History of back surgery Hx of CABG S/P peripheral artery bypass Status post right foot surgery Social History household members: spouse Smoking Status: Never smoker alcohol intake: never substance use type: does not use Results Lab / Micro Data Result Diagrams: 08/13/21 17:05 08/13/21 17:05
[2021-08-13 20:38] LABS: Procalcitonin 0.09 ng/mL (0.00-0.09)
--- NOTE | 2021-08-13 20:46 | ECHOCS_ITS ---
Reason For Study: CHF Procedure This was a 2D Doppler, Color Flow transthoracic echocardiogram. Contrast injection was performed. Exam performed portable in patient room. Left Ventricle Normal LV size. Apical thrombus noted measuring 1.8 x 1.3 cm. The estimated ejection fraction is 30 %. There are regional wall motion abnormalities as specified. Right Ventricle Normal RV size. Normal systolic function. Atria The left atrium is mildly enlarged. Normal right atrium. Mitral Valve Mild focal mitral valve thickening. Moderate (2+) eccentric mitral valve insufficiency. Tricuspid Valve Normal tricuspid valve. Moderate (2+) tricuspid valve insufficiency. Pulmonary artery systolic pressure is 55 mmHg. Aortic Valve Trisinus/trileaflet aortic valve. Moderate focal aortic valve calcification. Pulmonic Valve Normal pulmonic valve. Great Vessels Normal aortic root. The pulmonary artery is normal size. Normal inferior vena cava. Pericardium/Pleural No pericardial effusion. Medication Diluted definity 3ml given slow IV push to enhance endocardial definition. MMode/2D Measurements & Calculations LVIDd: 6.8 cm IVSd: 0.99 cm Ao root diam: 2.8 cm LVIDs: 4.9 cm LVPWd: 0.76 cm RVDd: 3.7 cm FS: 27.5 % LAV(MOD-bp): 64.8 ml LVAd ap4: 41.7 cm2 SV(MOD-sp4): 51.9 ml LAV(MOD-bp) Indexed: 31.8 ml/m2 LVLd ap4: 9.2 cm LAV(MOD-sp2): 72.2 ml EDV(MOD-sp4): 157.4 ml LAV(MOD-sp4): 59.3 ml EDV(sp4-el): 159.8 ml LVAs ap4: 34.8 cm2 LVLs ap4: 9.2 cm ESV(MOD-sp4): 105.5 ml ESV(sp4-el): 111.0 ml EF(MOD-sp4): 33.0 % EF(sp4-el): 30.5 % SV(sp4-el): 48.8 ml LA A4 area: 21.1 cm2 LA dimension(2D): 5.1 cm RA A4 area: 14.8 cm2 Doppler Measurements & Calculations MV E max jay: 120.0 cm/sec Lat Peak E' Jay: 5.0 cm/sec Med Peak E' Jay: 5.4 cm/sec E/E' lat: 24.1 E/E' med: 22.4 Ao V2 max: 127.6 cm/sec LV V1 max: 58.5 cm/sec PA V2 max: 63.8 cm/sec Ao max P.5 mmHg LV V1 max P.4 mmHg Ao V2 mean: 95.1 cm/sec Ao mean P.9 mmHg Ao V2 VTI: 16.8 cm TR max jay: 353.7 cm/sec TR max P.1 mmHg ECHO/Echo Complete W/ Contrast Interpretation Summary Moderate (2+) eccentric mitral valve insufficiency. Normal LV size. The estimated ejection fraction is 30 %. Apical thrombus noted measuring 1.8 x 1.3 cm. Pulmonary artery systolic pressure is 55 mmHg. Compared to the previous the apical thrombus is still present but smaller. Elevated pulmonary pressures noted Ordering Physician: Carrie Aguero Referring Physician: Mckayla Georges Performed By: Marybeth Shi, ED, RVT
[2021-08-13 21:09] LABS: Reflex Lactate? Y
[2021-08-13 21:52] LABS: Troponin-I HS 73 pg/mL (3.0-78.0)
[2021-08-13] MEDS: 0.9% Normal Saline 1,000 ML 75 ML IV (21:53)
[2021-08-13] MEDS: APIXABAN 5 MG TABLET PO (21:54)
[2021-08-13] MEDS: guaiFENesin 1,200 MG Tablet 1200 MG PO (21:54)
[2021-08-13] MEDS: Insulin Lispro 100 UNIT/ML INSULN.PEN SC (22:00)
[2021-08-13 22:11] LABS: Bedside Glucose 257 mg/dL (70-110)
[2021-08-13 22:13] LABS: Lactic Acid 2.1 mmol/L (0.4-1.9)
[2021-08-13 23:59] LABS: Troponin-I HS 72 pg/mL (3.0-78.0)
[2021-08-14] VITALS (22 sets, daily range): BP systolic 107–141; BP diastolic 72–99; PULSE 67–114; RESP 18–30; TEMP 36.3–36.7; O2SAT 95–100
[2021-08-14] MEDS: Insulin Lispro 100 UNIT/ML INSULN.PEN SC ×4 (06:34→22:06)
[2021-08-14 06:38] LABS: Absolute Lymphocyte Count 1.37 X10^3/uL (0.83-4.51); Absolute Neutrophil Count 5.4 X10^3/uL (2.0-7.7); Basophil# 0.06 X10^3/uL; Basophil% 0.8 % (0-1); Eosinophil# 0.23 X10^3/uL; Eosinophils% 2.9 % (0-5); Hematocrit 40.5 % (40-54); Hemoglobin 13.4 g/dL (13.0-16.5); Lymphocyte # 1.37 X10^3/ul (0.83-4.51); Lymphocyte % 17.4 % (19-41); Mean Corp Hgb Conc 33.1 g/dL (32-36); Mean Corpuscular Hgb 33.3 pg (27.0-32.0); Mean Corpuscular Volume 100.7 fL (80-94); Mean Platelet Vol. 10.7 fl (6.2-12.0); Monocyte# 0.76 X10^3/uL; Monocyte% 9.6 % (0-10); NRBC Flagged by Analyzer 0 % (0-5); Neutrophil # 5.41 X10^3/uL (2.7-7.7); Neutrophil % 68.5 % (47-70); POSITIVE COUNT YES; Platelet Count 181 K/mm3 (150-450); RBC Distribution Width CV 16.2 % (11.6-14.6); RBC Distribution Width SD 58.9 fl (35.1-43.9); Red Blood Count 4.02 M/mm3 (4.6-6.2); White Blood Count 7.9 K/mm3 (4.4-11.0)
[2021-08-14 06:42] LABS: Differential Indicated SCAN CRITERIA MET
[2021-08-14 06:46] LABS: Bedside Glucose 185 mg/dL (70-110)
[2021-08-14 06:58] LABS: Differential Comment SCANNED
[2021-08-14] MEDS: Ipratropium/Albuterol Sulfate 3 ML AMPUL.NEB INHALATION ×3 (07:01→19:26)
[2021-08-14 07:58] LABS: Anion Gap 5 (5-15); BUN 24 mg/dL (7-18); BUN/Creat Ratio 18.2 RATIO (10-20); Calcium,Total 8.5 mg/dL (8.5-10.1); Chloride 114 mmol/L (98-107); Creatinine, Serum 1.32 mg/dL (0.70-1.30); EST Glomerular Filtration Rate 57 mL/min (>60); Est Glom Filt Rate - Afr Amer 69 mL/min (>60); Estimated Creatinine Clearance 51.33 ml/min; Glucose 174 mg/dL (74-106); Potassium 4.4 mmol/L (3.5-5.1); Sodium Level 141 mmol/L (136-145)
[2021-08-14] MEDS: Folic Acid 1 MG Tablet PO (08:55)
[2021-08-14] MEDS: guaiFENesin 1,200 MG Tablet 1200 MG PO ×2 (08:55→22:05)
[2021-08-14] MEDS: APIXABAN 5 MG TABLET PO ×2 (08:55→22:06)
[2021-08-14] MEDS: Acetaminophen 325 MG Tablet 650 MG PO ×2 (08:55→16:09)
[2021-08-14] MEDS: Clopidogrel Bisulfate 75 MG Tablet PO (08:55)
[2021-08-14] MEDS: Venlafaxine XR 75 MG Capsule PO (08:55)
[2021-08-14] MEDS: Aspirin 81 MG TAB.CHEW PO (08:55)
[2021-08-14] MEDS: 0.9% Normal Saline 1,000 ML 75 ML IV (09:33)
[2021-08-14 11:00] LABS: Bedside Glucose 176 mg/dL (70-110)
[2021-08-14] MEDS: guaiFENesin Dm 10 ML UDC PO ×2 (11:17→16:09)
--- NOTE | 2021-08-14 12:00 | CASEMGMT ---
MARLYS FULTON Face to Face with patient for initial transition planning/care coordination assessment. RN CM introduced self and role at [facility]. Patient lying in bed, alert and oriented. Patient willing to participate in assessment and is able to answer all questions appropriately. Care providers, pharmacy, and demographics verified. Patient wishes to discharge home, denies need for home health at this time. Patient states he has no further needs or concerns at this time. CM to follow for discharge planning needs that may arise. 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 Patient states he is independent at home. Transportation: DME/HHC: Patient states he has shower chair, cane, walker, wheelchair, grab bars, cpap at home. Patient states he prefers [employer] for DME. No previous HHC or SNF Disposition Plan: Patient to discharge home with family support and follow-up plans in place. Will monitor for home oxgyen. Savanna YU, RN, CM
[2021-08-14] MEDS: Lisinopril 5 MG Tablet PO (16:09)
[2021-08-14] MEDS: Glucerna Shake 120 ML LIQUID PO (16:13)
[2021-08-14 16:31] LABS: Bedside Glucose 212 mg/dL (70-110)
[2021-08-14] MEDS: 0.9% Saline Lock 10 ML Syringe IV (17:26)
[2021-08-14] MEDS: Furosemide 40 MG/4 ML Vial IV (17:27)
--- NOTE | 2021-08-14 19:15 | PCM.PN.HOSP ---
Subjective Subjective Patient was seen and examined today, he still remains on nasal cannula oxygen. I have reviewed the patient's chest x-ray from admission yesterday, I do not feel the patient has a pneumonia, he also does not have any signs or symptoms of pneumonia. I think it is more likely that he has congestive heart failure, patient's echocardiogram from last year showed a reduced ejection fraction at 35%, he states he has not followed up with a postpartum rn in years-this was his decision-and the echocardiogram today shows a reduced ejection fraction at 30%. Patient has no complaints of any chest pain. He has a past history of coronary artery disease with coronary artery bypass. Patient does not complain of any shortness of breath at rest today. His was in his room at the time of my examination, she does not endorse any history of congestive heart failure with the patient and the patient also denies any knowledge of congestive heart failure in the past. Objective Data Objective Data Vital Signs: Vital Signs Temp Pulse Resp BP Pulse Ox 97.5 F L 93 20 H 117/86 H 98 08/14/21 17:30 08/14/21 17:30 08/14/21 17:30 08/14/21 17:30 08/14/21 17:30 Oxygen Flow Rate (L/min) 3 Oxygen Delivery Method Nasal Cannula Weight: 85 kg Body Mass Index (BMI) 27.6 Intake & Output: Intake and Output for Last 24 Hours 08/12/21 08/13/21 08/14/21 23:59 23:59 23:59 Intake Total 1005 / 1005 1700.00 / 1700.00 Output Total 100 / 100 700 / 700 Balance 905 / 905 1000.00 / 1000.00 Lab / Micro Data Result Diagrams: 08/14/21 05:35 08/14/21 07:30 Labs: Laboratory Results - last 24 hr 08/13/21 19:35: Procalcitonin 0.09 08/13/21 21:27: Troponin I High Sens 73 08/13/21 21:27: Lactic Acid 2.1 H* 08/13/21 21:30: COVID-19 (JG) Not Detected 08/13/21 21:55: POC Glucose 257 H 08/13/21 23:20: Troponin I High Sens 72 08/14/21 05:35: WBC 7.9, RBC 4.02 L, Hgb 13.4, Hct 40.5, MCV 100.7 H, MCH 33.3 H, MCHC 33.1, RDW Std Deviation 58.9 H, RDW Coeff of Melodie 16.2 H, Plt Count 181, MPV 10.7, Immature Gran % (Auto) 0.800, Neut % (Auto) 68.5, Lymph % (Auto) 17.4 L, [place] % (Auto) 9.6, Eos % (Auto) 2.9, Baso % (Auto) 0.8, Absolute Neuts (auto) 5.4, Absolute Lymphs (auto) 1.37, Nucleated RBC % 0, Differential Comment SCANNED 08/14/21 05:35: Sodium Cancelled, Potassium Cancelled, Chloride Cancelled, Carbon Dioxide Cancelled, Anion Gap Cancelled, BUN Cancelled, Creatinine Cancelled, Estim Creat Clear Calc Cancelled, Est GFR (MDRD) Af Amer Cancelled, Est GFR (MDRD) Non-Af Cancelled, BUN/Creatinine Ratio Cancelled, Glucose Cancelled, Calcium Cancelled 08/14/21 06:33: POC Glucose 185 H 08/14/21 07:30: Sodium 141, Potassium 4.4, Chloride 114 H, Carbon Dioxide 22.0, Anion Gap 5, BUN 24 H, Creatinine 1.32 H, Estim Creat Clear Calc 51.33, Est GFR (MDRD) Af Amer 69, Est GFR (MDRD) Non-Af 57 L, BUN/Creatinine Ratio 18.2, Glucose 174 H, Calcium 8.5 08/14/21 10:45: POC Glucose 176 H 08/14/21 16:08: POC Glucose 212 H Micro: Microbiology 08/14/21 07:30 Mucosa - Nasopharyngeal Respiratory Panel (PCR) - Final 08/14/21 03:40 Urine, Clean Catch Streptococcus pneumoniae Antigen (M - Final 08/14/21 03:40 Urine, Clean Catch Legionella Antigen - Final 08/13/21 17:03 Mucosa - Nasopharyngeal Influenza Types A,B Direct FA ([place]INA) - Final 08/13/21 17:03 Nasal Secretion SARS-CoV-2 Antigen (Rapid) - Final Radiography Diagnostic Testing: Radiology Impression Echocardiogram 08/13/21 20:46 Interpretation Summary Moderate (2+) eccentric mitral valve insufficiency. Normal LV size. The estimated ejection fraction is 30 %. Apical thrombus noted measuring 1.8 x 1.3 cm. Pulmonary artery systolic pressure is 55 mmHg. Compared to the previous the apical thrombus is still present but smaller. Elevated pulmonary pressures noted Ordering Physician: Carrie Aguero Referring Physician: Scott;Mckayla saleh Performed By: Marybeth Shi, ED, RVT Physical Exam Const alert, oriented x3, no apparent distress and healthy appearing General Appearance: cooperative, well kempt and well developed Orientation / Consciousness: awake, oriented to person, oriented to place and oriented to time HEENT normocephalic, head/scalp atraumatic and moist oral mucous membranes Head and Scalp: normocephalic Eyes PERRL, EOMs intact bilaterally and conjunctivae normal Neck nuchal rigidity, supple, no JVD, thyroid normal and no carotid bruits General: trachea midline Resp normal respiratory effort, no retractions, no use of accessory muscles and clear to auscultation bilaterally Auscultation: Negative for rales, rhonchi or wheezes Cardio regular rate, regular rhythm, S1 normal heart sound, S2 normal heart sound, no murmurs, no rub, no gallops and no clicks GI normal to inspection, nondistended, normoactive bowel sounds, soft to palpation, non-tender and non-distended Extremity no clubbing, cyanosis or edema Skin no rashes or lesions noted General Skin Exam: no breakdown Neuro oriented x3, CN's II-XII intact bilaterally, no focal motor deficits and no sensory deficits noted Sensorium / Orientation: awake and alert Speech: speech normal Psych affect normal Assessment & Plan Assessment/Plan (1) CHF (congestive heart failure): QUALIFIERS: Heart failure type: unspecified Heart failure chronicity: unspecified Qualified Code(s): I50.9 - Heart failure, unspecified PLAN: 1. Systolic congestive heart failure-new diagnosis-patient will be placed on IV Lasix, fluids were stopped today, patient was placed on lisinopril 5 mg daily. #2 acute hypoxic respiratory failure secondary to #1-patient's pulse ox will be monitored, supplemental oxygen will be adjusted #3 coronary artery disease-patient does not currently follow-up with a postpartum rn, I discussed this with him today in the hospital, he will need to follow-up with 1 as an outpatient, patient will continue on his present medications #4 type 2 diabetes-blood sugars will be monitored, sliding scale insulin will be used as needed #5 cardiomyopathy-type unknown, suspect this could be ischemic cardiomyopathy, patient has been noncompliant with follow-up with a postpartum rn. He will need follow-up as an outpatient, in the meantime, I will place the patient on lisinopril. A beta-carol could be added as tolerated. #6 peripheral vascular disease-patient is on Plavix and aspirin at this time #7 psoriasis-patient takes methotrexate once a week, he will remain off this while he is in the hospital. #8 elevated creatinine-etiology unclear at this point, labs will be monitored #9 lactic acidosis-secondary to #2, I do not feel this is indicative of sepsis I do not feel the patient has community-acquired pneumonia at this time, I have stopped his antibiotics Charges/Coding Visit Charges Inpatient E&M: 16784 Subs Hosp L2
[2021-08-14 22:55] LABS: Bedside Glucose 151 mg/dL (70-110)
[2021-08-14] MEDS: oxyCODONE 5 MG Tablet PO (23:19)
[2021-08-15] VITALS (14 sets, daily range): BP systolic 93–117; BP diastolic 72–91; PULSE 78–91; RESP 18–20; TEMP 36.4–36.6; O2SAT 94–99
[2021-08-15] MEDS: guaiFENesin Dm 10 ML UDC PO (04:41)
[2021-08-15 06:41] LABS: Bedside Glucose 132 mg/dL (70-110)
[2021-08-15] MEDS: Ipratropium/Albuterol Sulfate 3 ML AMPUL.NEB INHALATION ×3 (06:57→14:41)
[2021-08-15 07:19] LABS: Anion Gap 10 (5-15); BUN 24 mg/dL (7-18); Calcium,Total 8.2 mg/dL (8.5-10.1); Chloride 110 mmol/L (98-107); EST Glomerular Filtration Rate 63 mL/min (>60); Est Glom Filt Rate - Afr Amer 77 mL/min (>60); Estimated Creatinine Clearance 56.46 ml/min; Glucose 128 mg/dL (74-106); Potassium 3.6 mmol/L (3.5-5.1); Sodium Level 139 mmol/L (136-145)
[2021-08-15] MEDS: Folic Acid 1 MG Tablet PO (07:51)
[2021-08-15] MEDS: Aspirin 81 MG TAB.CHEW PO (07:51)
[2021-08-15] MEDS: Glucerna Shake 120 ML LIQUID PO (07:54)
[2021-08-15] MEDS: Acetaminophen 325 MG Tablet 650 MG PO (09:15)
[2021-08-15] MEDS: Venlafaxine XR 75 MG Capsule PO (09:16)
[2021-08-15] MEDS: Furosemide 40 MG/4 ML Vial IV (09:16)
[2021-08-15] MEDS: 0.9% Saline Lock 10 ML Syringe IV (09:16)
[2021-08-15] MEDS: guaiFENesin 1,200 MG Tablet 1200 MG PO (09:16)
[2021-08-15] MEDS: APIXABAN 5 MG TABLET PO (09:16)
[2021-08-15] MEDS: Clopidogrel Bisulfate 75 MG Tablet PO (09:17)
[2021-08-15] MEDS: Lisinopril 5 MG Tablet PO (09:17)
[2021-08-15 11:36] LABS: Bedside Glucose 162 mg/dL (70-110)
[2021-08-15] MEDS: Insulin Lispro 100 UNIT/ML INSULN.PEN SC ×2 (13:14→16:49)
--- NOTE | 2021-08-15 15:00 | CASEMGMT ---
Pt does not qualify for home oxygen at this time. Pt states no need for any further therapy at discharge. Pt voices no further questions/concerns/needs. Josh FRANKEL CM
--- NOTE | 2021-08-15 16:25 | PCM.DC ---
Discharge Instructions Diet Discharge Diet: 1800 Calorie Control Diet Activity Discharge Activity: Return to Normal Activity Weight Bearing Status: Full weight bearing Follow Up Care Test Results: Test results from this visit will be discussed in further detail at your follow-up appointment, if applicable. Discharge Plan Admission Admit Date/Time: 08/13/21 19:46 Primary Reason for Your Visit: congestive heart failure Attending Provider: Jesus Reilly Primary Care Provider: Mckayla Silva Instructions Additional Instructions / Restrictions: Get Robitussin DM or its equivalent over the counter-take two teaspoons every 4 hours as needed for cough Discharge Orders/Prescriptions Prescriptions: New dextromethorphan-guaifenesin 10-100 mg/5 mL Syrup 10 ml PO Q4 PRN (Reason: COUGH) Qty: 0 RF: 0 lisinopril 5 mg Tablet 5 mg PO DAILY Qty: 30 RF: 0 furosemide [Lasix] 40 mg tablet 40 mg PO DAILY Qty: 30 RF: 0 potassium chloride 10 mEq tablet extended release 20 meq PO DAILY Qty: 60 RF: 0 carvedilol 6.25 mg tablet 6.25 mg PO BID Qty: 60 RF: 0 clotrimazole-betamethasone 1-0.05 % cream 1 applic topical BID Qty: 30 RF: 0 Continued apixaban 5 MG tablet 5 mg PO BID Qty: 60 RF: 0 glyburide 5 mg Tablet 10 mg PO DAILY RF: 0 clopidogrel 75 mg Tablet 75 mg PO DAILY RF: 0 venlafaxine 75 mg Tablet Extended Release 24hr 75 mg PO DAILY RF: 0 aspirin 81 mg tablet,chewable 1 tab PO DAILY RF: 0 glyburide 5 mg Tablet 5 mg PO DINNER RF: 0 methotrexate sodium 2.5 mg tablet 9 mg PO FR RF: 0 folic acid 1 mg Tablet 1 mg PO DAILY RF: 0 tadalafil 10 mg tablet 5 mg PO DAILY PRN PRN (Reason: NEEDED) RF: 0 Discontinued fluconazole [Diflucan] 200 mg Tablet 200 mg PO FR RF: 0 doxycycline monohydrate 100 mg tablet 100 mg PO DAILY RF: 0 Referrals / Follow Up: Mckayla Silva DO [Primary Care Provider] - Within 2 Weeks Disposition Disposition (needs filled in before D/C Order can be placed): Home, Self Care
[2021-08-15] MEDS: Carvedilol 6.25 MG Tablet PO (16:45)
--- NOTE | 2021-08-15 16:51 | DS.PCM_ITS ---
Providers Date of Admission: 08/13/21 Date of Discharge: 08/15/21 Primary Care Physician: Dr. Mckayla Silva DO Reason For Visit: BILATERAL PNA, CHF EXACERBATION Diagnosis Discharge Diagnosis (1) CHF (congestive heart failure): Status: Acute Code(s): I50.9 - Heart failure, unspecified Qualifiers: Heart failure chronicity: unspecified Heart failure type: unspecified Qualified Code(s): I50.9 - Heart failure, unspecified Plan: Final diagnosis: #1 systolic congestive heart failure-new onset #2 acute hypoxic respiratory failure secondary to #1 #3 coronary artery disease #4 type 2 diabetes #5 cardiomyopathy-type unknown #6 peripheral vascular disease #7 psoriasis #8 elevated creatinine-etiology unclear #9 lactic acidosis secondary to #2 #10 moderate pulmonary hypertension Sepsis and pneumonia were ruled out. Medications at Discharge Home Medications apixaban 5 mg PO BID #60 tab 01/20/20 aspirin 1 tab PO DAILY 12/11/20 clopidogrel 75 mg PO DAILY 12/11/20 glyburide 10 mg PO DAILY 12/11/20 venlafaxine 75 mg PO DAILY 12/11/20 folic acid 1 mg PO DAILY 08/13/21 glyburide 5 mg PO DINNER 08/13/21 methotrexate sodium 9 mg PO FR 08/13/21 tadalafil 5 mg PO DAILY PRN PRN 08/13/21 carvedilol 6.25 mg PO BID #60 tab 08/15/21 clotrimazole-betamethasone 1 applic TOPICAL BID #30 g 08/15/21 dextromethorphan-guaifenesin 10 ml PO Q4 PRN #0 ml 08/15/21 furosemide [Lasix] 40 mg PO DAILY #30 tab 08/15/21 lisinopril 5 mg PO DAILY #30 tab 08/15/21 potassium chloride 20 meq PO DAILY #60 tab 08/15/21 Hospital Course Operations None Procedures 2-D Echocardiogram Summary of Care Provided Minutes Spent on Discharge: 33 Hospital Course: 71-year-old white male was seen in the emergency room with complaints of shortness of breath, he had no complaints of any chest pain, fevers, or chills. Work-up in the ER included a CBC which showed a normal white blood cell count, patient's chemistry profile was remarkable for creatinine of 1.75, BUN of 28, and the patient's beta natruretic peptide was elevated at 882. Patient's glucose was 226. Chest x-ray showed what was read out by the radiologist as bilateral pneumonia. Patient was admitted to PCU, he was initially placed on IV antibiotics for presumed bilateral pneumonia, this examiner saw the patient on 08/14/2021 and after looking at all his data and ex amining the patient, I came to the conclusion that the patient did not have pneumonia but he had congestive heart failure. Patient had an echocardiogram performed which showed reduced ejection fraction of 30%. Pulmonary artery pressure was elevated at 55. Patient was initially placed on oxygen for acute respiratory failure, he responded well to IV diuresis and he came off the oxygen at the time of discharge home. On 08/15/2021, patient was seen and examined: On examination he appeared in good health and spirits. Vital signs as documented. Skin warm and dry and without overt rashes. Neck without JVD, neck was supple, trachea midline, thyroid was normal. Lungs clear bilaterally, normal air movement was noted. Heart exam notable for regular rhythm, normal sounds and absence of murmurs, rubs or gallops. Abdomen unremarkable and without evidence of organomegaly, masses, or abdominal aortic enlargement. Bowel sounds are present, abdomen is not distended. Extremities nonedematous, no cyanosis was noted, no clubbing was noted. Neuro: Cranial nerves II through XII are grossly intact, no focal motor deficits were noted, sensation to light touch and pinprick intact, motor exam 5/5 throughout. Psych: Patient is alert and oriented x3, he does not appear anxious or depressed, he does not appear agitated. Patient appears stable for discharge on 08/15/2021. Weight / BMI Weight Weight: 85 kg Body Mass Index (BMI) 27.6 ABG / Lab / Microbiology Data Result Diagrams: 08/14/21 05:35 08/15/21 06:13 Laboratory: Laboratory Results - last 24 hr 08/14/21 22:00: POC Glucose 151 H 08/15/21 06:13: Sodium 139, Potassium 3.6, Chloride 110 H, Carbon Dioxide 19.0 L , Anion Gap 10, BUN 24 H, Creatinine 1.20, Estim Creat Clear Calc 56.46, Est GFR (MDRD) Af Amer 77, Est GFR (MDRD) Non-Af 63, BUN/Creatinine Ratio 20.0, Glucose 128 H, Calcium 8.2 L 08/15/21 06:32: POC Glucose 132 H 08/15/21 11:32: POC Glucose 162 H Microbiology: Microbiology 08/14/21 07:30 Mucosa - Nasopharyngeal Respiratory Panel (PCR) - Final 08/14/21 03:40 Urine, Clean Catch Streptococcus pneumoniae Antigen (M - Final 08/14/21 03:40 Urine, Clean Catch Legionella Antigen - Final 08/13/21 17:03 Mucosa - Nasopharyngeal Influenza Types A,B Direct FA ([place]) - Final 08/13/21 17:03 Nasal Secretion SARS-CoV-2 Antigen (Rapid) - Final D/C Instructions Discharge Diet: 1800 Calorie Control Diet Weight Bearing Status: Full weight bearing Meaningful Use Info Meaningful Use Diagnoses (Choose all that apply): CHF CHF DOMINGO/ARB ordered at discharge?: Yes Documented LVEF (%): 30 Discharge Plan Admission Admit Date/Time: 08/13/21 19:46 Primary Reason for Your Visit: congestive heart failure Attending Provider: Jesus Reilly Primary Care Provider: Mckayla Silva Instructions Additional Instructions / Restrictions: Get Robitussin DM or its equivalent over the counter-take two teaspoons every 4 hours as needed for cough Discharge Orders/Prescriptions Prescriptions: New dextromethorphan-guaifenesin 10-100 mg/5 mL Syrup 10 ml PO Q4 PRN (Reason: COUGH) Qty: 0 RF: 0 lisinopril 5 mg Tablet 5 mg PO DAILY Qty: 30 RF: 0 furosemide [Lasix] 40 mg tablet 40 mg PO DAILY Qty: 30 RF: 0 potassium chloride 10 mEq tablet extended release 20 meq PO DAILY Qty: 60 RF: 0 carvedilol 6.25 mg tablet 6.25 mg PO BID Qty: 60 RF: 0 clotrimazole-betamethasone 1-0.05 % cream 1 applic topical BID Qty: 30 RF: 0 Continued apixaban 5 MG tablet 5 mg PO BID Qty: 60 RF: 0 glyburide 5 mg Tablet 10 mg PO DAILY RF: 0 clopidogrel 75 mg Tablet 75 mg PO DAILY RF: 0 venlafaxine 75 mg Tablet Extended Release 24hr 75 mg PO DAILY RF: 0 aspirin 81 mg tablet,chewable 1 tab PO DAILY RF: 0 glyburide 5 mg Tablet 5 mg PO DINNER RF: 0 methotrexate sodium 2.5 mg tablet 9 mg PO FR RF: 0 folic acid 1 mg Tablet 1 mg PO DAILY RF: 0 tadalafil 10 mg tablet 5 mg PO DAILY PRN PRN (Reason: NEEDED) RF: 0 Discontinued fluconazole [Diflucan] 200 mg Tablet 200 mg PO FR RF: 0 doxycycline monohydrate 100 mg tablet 100 mg PO DAILY RF: 0 Referrals / Follow Up: Mckayla Silva DO [Primary Care Provider] - Within 2 Weeks Disposition Disposition (needs filled in before D/C Order can be placed): Home, Self Care Charges/Coding Visit Charges Inpatient E&M: 95763 Disch Hosp
[2021-08-15 17:01] LABS: Bedside Glucose 218 mg/dL (70-110)
== END 2021-08-15 17:32 | disposition home or self-care (01) | DRG 291 ==
LOC: ED 19:24 → PCU 19:59
PROVIDERS: Nurse Practitioner Family; Admitting Provider Family Medicine; Emergency Provider Emergency Medicine; PCP Family Medicine; Visit Provider Internal Medicine
DX: I11.0 Hypertensive heart disease with heart failure (principal); J96.01 Acute respiratory failure with hypoxia; I50.21 Acute systolic (congestive) heart failure; E87.2 Acidosis; E11.51 Type 2 diabetes mellitus with diabetic peripheral angiopathy without gangrene; E11.65 Type 2 diabetes mellitus with hyperglycemia; I27.20 Pulmonary hypertension, unspecified; E78.5 Hyperlipidemia, unspecified; F41.9 Anxiety disorder, unspecified; I25.10 Atherosclerotic heart disease of native coronary artery without angina pectoris; L40.9 Psoriasis, unspecified; F32.A Depression, unspecified; N28.9 Disorder of kidney and ureter, unspecified; Z79.02 Long term (current) use of antithrombotics/antiplatelets; Z79.01 Long term (current) use of anticoagulants; Z79.82 Long term (current) use of aspirin; Z79.84 Long term (current) use of oral hypoglycemic drugs; Z79.899 Other long term (current) drug therapy
CPT/HCPCS: 36415; 71045; 80048; 82962; 83605; 83880; 84145; 84484; 85025; 87040; 87426; 87449; 87633; 87635; 87804; 93005; 93306; 94640; 94760; 97162; 97166; 97530; 99251; 99284; J7030; J7050; Q9957; A4216; C8929; G0463; J0696; J1940; U0003; U0005

== ENCOUNTER 2021-10-16 14:21 | Inpatient (IN) | payer MEDICARE, OTHER, SELFPAY ==
[2021-10-16 14:22] VITALS: BP 104/67; PULSE 100; RESP 18; TEMP 36.5; O2SAT 94; BMI 27.3
[2021-10-16 14:30] VITALS: BP 114/75; PULSE 99; RESP 14; O2SAT 93
--- NOTE | 2021-10-16 14:43 | EKG12_ITS ---
Test Reason : Blood Pressure : / mmHG Vent. Rate : 094 BPM Atrial Rate : 094 BPM P-R Int : 152 ms QRS Dur : 138 ms QT Int : 408 ms P-R-T Axes : 022 204 027 degrees QTc Int : 510 ms Sinus rhythm with occasional Premature ventricular complexes Right bundle branch block Inferior infarct , age undetermined Abnormal ECG Confirmed by GODFREY MEEK, CARA ([id number]), content editor CAROLYN HYLTON ([id number]) on 10/18/2021 9:41:32 AM Referred By: [facility]U Confirmed By:CARA DONAHUE MD
--- NOTE | 2021-10-16 14:49 | RAD_ITS ---
STUDY: X-RAY CHEST REASON FOR EXAM: Male, 71 years old. Bibasilar rales history of CHF . Suggestion and shortness of breath. TECHNIQUE: Single AP portable view of the chest. COMPARISON: Comparison is made with prior study dated 08/13/2021. FINDINGS: EKG electrodes are seen. The lungs are clear and expanded. There is no demonstrated pleural abnormality. Sternal cerclage wires and vascular clips are present from a prior sternotomy and coronary artery bypass graft procedure (CABG). Normal mediastinum and isaak. Normal visualized pulmonary arteries. Normal visualized aortic arch and descending thoracic aorta. Normal visualized thoracic spine. There is degenerative osteoarthritis of the bilateral shoulders. There is no demonstrated abnormality of the visualized soft tissue structures of the upper abdomen. RAD/Chest PA and Lateral IMPRESSION: Status post CABG. No acute abnormality is seen. Electronically Signed: Cedric Mercer MD at 15:11 EDT ,
[2021-10-16 14:55] LABS: Hematocrit 42.3 % (40-54); Mean Corp Hgb Conc 33.1 g/dL (32-36); Mean Corpuscular Hgb 33.4 pg (27.0-32.0); Mean Platelet Vol. 9.6 fl (6.2-12.0); Platelet Count 259 K/mm3 (150-450); RBC Distribution Width CV 15.9 % (11.6-14.6); RBC Distribution Width SD 58.6 fl (35.1-43.9); Red Blood Count 4.19 M/mm3 (4.6-6.2); White Blood Count 9.7 K/mm3 (4.4-11.0)
[2021-10-16 15:10] LABS: BUN 30 mg/dL (7-18); Creatinine, Serum 1.41 mg/dL (0.70-1.30); EST Glomerular Filtration Rate 53 mL/min (>60); Estimated Creatinine Clearance 46.49 ml/min; Glucose 162 mg/dL (74-106)
--- NOTE | 2021-10-16 15:10 | EDS_ITS ---
HPI History of Present Illness Chief Complaint: Weakness Detail of Chief Complaint: Fatigue per patient wound and yeast infection per Informant: patient and spouse/S.O. Onset/Context/Timing Onset: Yesterday (Wound distal right calf noted by yesterday. Janene infection days) and Days (Patient reports fatigue started 3 days ago.) Context: Onset with activity and Sudden Onset Timing: Continuous Quality: Generalized weakness, erythematous rash and yeast infection Location: Generalized, right calf and right groin Current Severity: Moderate Maximum Severity: Severe Worsened by: Attempting to do something Relieved by: Nothing Associated Symptoms Associated Symptoms: Recent diuresis for CHF exacerbation Narrative Narrative: Patient is a 71-year-old male with multiple medical problems who presents because of fatigue that started 3 days ago. Patient is not able to be more specific or descriptive. He denies fever, chills night sweats. He denies headache. He denies double vision, blurred vision loss of vision. He has decreased hearing in his ears, which is chronic. Patient denies sore throat or change in voice. Patient denies swallowing. Patient denies chest pain, orthopnea or PND. Patient denies dyspnea, dyspnea on exertion or cough. Patient denies abdominal pain, vomiting, diarrhea, melena or hematochezia. Patient denies dysuria, frequency, urgency or hematuria. Patient does report chronic paresthesia upper and lower extremity. was concerned regarding wound distal right calf and yeast infection right groin. Prior similar symptoms: No Recent Illness/Hospitalization: Yes (For CHF) [facility] Medical History Back pain with history of spinal surgery Coronary artery disease Diabetes mellitus Foot drop, left foot History of right common carotid artery stent placement Hyperlipidemia Hypertension Peripheral arterial occlusive disease Peripheral vascular disease Home Medications apixaban 5 mg PO BID #60 tab 01/20/20 [Rx Last Taken 10/16/21] aspirin 1 tab PO DAILY 12/11/20 [History Last Taken 10/16/21] clopidogrel 75 mg PO DAILY 12/11/20 [History Last Taken 10/16/21] glyburide 10 mg PO DAILY 12/11/20 [History Last Taken 12/10/20] venlafaxine 75 mg PO DAILY 12/11/20 [History Last Taken 10/16/21] folic acid 1 mg PO DAILY 08/13/21 [History Last Taken 10/16/21] methotrexate sodium 9 mg PO FR 08/13/21 [History Last Taken 10/13/21] tadalafil 5 mg PO DAILY PRN PRN 08/13/21 [History Last Taken 10/15/21] carvedilol 6.25 mg PO BID #60 tab 08/15/21 [Rx Last Taken Unknown] furosemide [Lasix] 40 mg PO DAILY #30 tab 08/15/21 [Rx Last Taken 10/16/21] lisinopril 5 mg PO DAILY #30 tab 08/15/21 [Rx Last Taken 10/16/21] potassium chloride 20 meq PO DAILY #60 tab 08/15/21 [Rx Last Taken 10/16/21] Allergy/AdvReac Type Severity Reaction Status Date / Time morphine Allergy PT UNSURE Verified 10/16/21 14:24 OF REACTION rivaroxaban [From Xarelto] Allergy Other Verified 10/16/21 14:24 Family History Mother CVA (cerebral vascular accident) Diabetes Heart disease Hypertension Father Diabetes Heart disease Pulmonary disease Surgical History History of back surgery Hx of CABG S/P peripheral artery bypass Status post right foot surgery Social History household members: spouse Smoking Status: Never smoker alcohol intake: never substance use type: does not use ROS ROS ED Constitutional Constitutional ED: Denies chills, fever(s), subjective, sweats or weight loss Eyes Eyes: Denies blurry vision, change in vision or diplopia ENT ENT ED: Denies ear pain, rhinorrhea or sore throat Cardiovascular Cardiovascular: Denies chest pain, orthopnea, palpitations or racing heartbeat Respiratory/Chest Respiratory/Chest: Denies cough, dyspnea, dyspnea on exertion or orthopnea Gastrointestinal Gastrointestinal: Denies abdominal pain, constipation, diarrhea, melena or vomiting Genitourinary Genitourinary ED: Denies dysuria, hematuria or urinary frequency Musculoskeletal Musculoskeletal: Reports back pain; Denies arthralgias, myalgias or neck pain Integumentary Reports rash and other Details: Wound with redness right calf and yeast inf ection right groin ; Denies abscess Neurologic Neurologic: Reports paresthesias RUE, RLE, LUE and LLE and weakness Psychiatric Psychiatric: Reports depression Endocrine Endocrinology: Reports other Details: Patient has not checked his blood sugar recently. ; Denies polydipsia, polyphagia or polyuria EXAM Physical Exam Const Vital Signs: 10/16/21 14:22 10/16/21 14:30 Temperature 97.7 F L Temperature Source Temporal Pulse Rate 100 99 Respiratory Rate 18 14 Blood Pressure 104/67 114/75 Blood Pressure Mean 79 88 Pulse Ox 94 93 Oxygen Delivery Method Room Air Room Air Positive well nourished and well developed General Appearance ED: well developed, NAD and other Patient has a flat depressed affect and slow psychomotor skills ; Negative for cyanotic, diaphoretic or pallor HEENT Reports TM's clear and dry mucous membranes Negative for trauma or tenderness Tympanic Membrane ED: Yes TM's clear Mouth ED: Yes dry mucous membranes Mouth: dry mucous membranes Eyes PERRL and EOMs intact bilaterally General Eye ED: Negative for pale conjunctiva or scleral icterus Neck no lymphadenopathy, supple and no JVD General: Negative for tenderness Chest Wall inspection of chest normal and palpation of chest normal Resp normal respiratory effort and clear to auscultation bilaterally Cardio regular rate, regular rhythm, S1 normal heart sound, S2 normal heart sound and no murmurs GI normal to inspection, nondistended, normoactive bowel sounds, non-tender and non-distended; Negative for hepatosplenomegaly GI Narrative: There is no pulsatile mass or abdominal bruit. Inspection: Negative for abdominal distention Palpation: soft; Negative for mass Back/Spine no CVA tenderness Cervical Spine: Negative for cervical spine tenderness Thoracic Spine / Upper Back: Negative for thoracic spinal tenderness Extremity Negative for normal to inspection Extremity Narrative: There is a small wound distal right calf with erythema that is 2 x 4 cm. The rash is warm slightly indurated. There is no discharge from the wound. There is no lymphangitis. There is no popliteal lymphadenopathy. There is a significant yeast infection in the right groin. General Extremety ED: Negative for edema or tenderness General Extremity: Negative for edema Neuro oriented x3, CN's II-XII intact bilaterally and No no sensory deficits noted Sensorium / Orientation: alert Motor Exam: strength 5/5 throughout Psych Mood & Affect: depressed Skin General Skin Exam: Negative for jaundice or pallor Rashes: rashes noted MDM MDM MDM Narrative Medical decision making narrative: Will obtain CBC to assess white count rule out anemia. Since patient is diabetic and has yeast infection and wound infection will check blood sugar/CO2 anion gap as well as electrolytes especially since he is can diuresis for his CHF exacerbation. Patient and were informed that his laboratory results are not significantly different from prior. states she cannot get him up from a sitting position she cannot get him from room to room. She does not feel safe taking him home. Patient and were informed that he would come in under observational status and would need further evaluation. They understand there is no obvious medical reason for admission Lab Data Attestation: I reviewed the patient's lab results. Lab results narrative: White count is normal. H&H is normal. MCV is high at 101.0. Basic metabolic panel is remarkable for glucose of 162 with a normal CO2 and anion gap. BUN is elevated at 30 with a creatinine 1.41. UA is unremarkable. Patient creatinine has ranged between 1.10 and 1.75. Labs: Laboratory Results - last 24 hr 10/16/21 10/16/21 10/16/21 14:35 14:35 14:35 WBC 9.7 RBC 4.19 L Hgb 14.0 Hct 42.3 MCV 101.0 H MCH 33.4 H MCHC 33.1 RDW Std Deviation 58.6 H RDW Coeff of Melodie 15.9 H Plt Count 259 MPV 9.6 Sodium 136 Potassium 4.3 Chloride 103 Carbon Dioxide 29.0 Anion Gap 4 L BUN 30 H Creatinine 1.41 H Estim Creat Clear Calc 46.49 Est GFR (MDRD) Af Amer 64 Est GFR (MDRD) Non-Af 53 L BUN/Creatinine Ratio 21.3 H Glucose 162 H Calcium 9.3 Troponin I High Sens 32 Urine Color Urine Clarity Urine pH Ur Specific [place] Urine Protein Urine Glucose (UA) Urine Ketones Urine Occult Blood Urine Nitrite Urine Bilirubin Urine Urobilinogen Ur Leukocyte Esterase Urine RBC Urine WBC Ur Squamous Epith Cells Urine Bacteria Urine Mucus 10/16/21 15:20 WBC RBC Hgb Hct MCV MCH MCHC RDW Std Deviation RDW Coeff of Melodie Plt Count MPV Sodium Potassium Chloride Carbon Dioxide Anion Gap BUN Creatinine Estim Creat Clear Calc Est GFR (MDRD) Af Amer Est GFR (MDRD) Non-Af BUN/Creatinine Ratio Glucose Calcium Troponin I High Sens Urine Color Yellow Urine Clarity Clear Urine pH 5.0 Ur Specific [place] 1.020 Urine Protein 15 H Urine Glucose (UA) 250 H Urine Ketones Negative Urine Occult Blood 50 H Urine Nitrite Negative Urine Bilirubin Negative Urine Urobilinogen Normal Ur Leukocyte Esterase 25 H Urine RBC 0-5 SEEN Urine WBC 0 SEEN Ur Squamous Epith Cells 0 SEEN Urine Bacteria 0 SEEN Urine Mucus 0 SEEN Radiography Chest X-Ray - ED: 2 View and Read by ED Physician (Independently reviewed and interpreted by me at 1443. Patient has me to sternotomy wires noted. Cardiac silhouette size is unremarkable. Perihilar regions unremarkable. Lung parenchyma is unremarkable. There is no infiltrate or effusion. Osseous structures are unremarkable.) Diagnostic Testing: Clinical Impression(s) from Imaging Studies Chest X-Ray 10/16/21 14:49 IMPRESSION: Status post CABG. No acute abnormality is seen. Electronically Signed: Cedric Mercer MD at 15:11 EDT , EKG Initial EKG: Attestation: I personally reviewed and interpreted this EKG as follows: Interpretation: Sinus Rhythm (Ventricular rate of 94. There is evidence of right bundle branch block. TN interval 252 ms. Cures duration of 38 ms. QT is 408 ms. [place] to the right. There is no acute ischemic changes.) Discharge Plan Dx/Rx/DC Orders Clinical Impression: Fatigue, Chronic renal insufficiency, stage II (mild), Cellulitis of right leg without foot, Janene infection of flexural skin Disposition Disposition: Acute Care Hospital [facility] Discharge Date/Time: 10/16/21 18:36
[2021-10-16 15:11] LABS: Anion Gap 4 (5-15); BUN/Creat Ratio 21.3 RATIO (10-20); Calcium,Total 9.3 mg/dL (8.5-10.1); Chloride 103 mmol/L (98-107); Est Glom Filt Rate - Afr Amer 64 mL/min (>60); Potassium 4.3 mmol/L (3.5-5.1); Sodium Level 136 mmol/L (136-145)
[2021-10-16 15:28] LABS: Bacteria 0 SEEN /hpf (None Seen); Mucous, Urine 0 SEEN /hpf (<or=2+); Squamous Epithelial Cells - UA 0 SEEN /hpf (0-5); White Blood Cells 0 SEEN /hpf (0-5)
[2021-10-16 15:30] LABS: Color, Urine Yellow (Yellow); Glucose, Dipstick 250 mg/dl (Normal); Ketone-Dipstick Negative (Negative); Leukocyte Esterase-Dipstick 25 /ul (Negative); Nitrite-Dipstick Negative (Negative); Occult Blood-Urine 50 /ul (Negative); Protein-Dipstick 15 mg/dl (Negative); Urine Bilirubin Dipstick Negative (Negative); Urine Clarity Clear (Clear); Urine Urobilinogen Normal (Normal)
[2021-10-16 16:48] LABS: Red Blood Cells-Urine 0-5 SEEN /hpf (0-5)
[2021-10-16 18:14] VITALS: BP 117/68; PULSE 75; RESP 18; TEMP 36.8; O2SAT 95
[2021-10-16] MEDS: Doxycycline 100 MG CAPSULE PO (18:19)
[2021-10-16] MEDS: Fluconazole 100 MG Tablet 200 MG PO (18:19)
--- NOTE | 2021-10-16 18:23 | PCM.HP.STD ---
Documented by User: JUAN Valencia 10/16/21 18:40 HPI - General General Date of Admission: 10/16/21 Date of Service: 10/16/21 Chief Complaint: Weakness HPI Narrative TRAM RIVERA, is a 71 M who presents with weakness. Patient's reports that patient has a wound on his right posterior calf that has been getting more red and more warm. Patient's reports that she marked the outline of it yesterday and today it had grown considerably. Patient also states that he has been very weak and unable to ambulate the way he normally can. Patient reports he just does not feel well in general. Patient's also reports that he has a significant yeast infection in his right groin. Patient's reports medical history that includes stroke, left dropfoot, type 2 diabetes mellitus, neuropathy, peripheral artery disease, hypertension, chronic renal insufficiency stage II. [facility] Medical History Back pain with history of spinal surgery Coronary artery disease Diabetes mellitus Foot drop, left foot History of right common carotid artery stent placement Hyperlipidemia Hypertension Peripheral arterial occlusive disease Peripheral vascular disease Home Medications apixaban 5 mg PO BID #60 tab 01/20/20 [Rx Last Taken 10/16/21] aspirin 1 tab PO DAILY 12/11/20 [History Last Taken 10/16/21] clopidogrel 75 mg PO DAILY 12/11/20 [History Last Taken 10/16/21] glyburide 10 mg PO DAILY 12/11/20 [History Last Taken 12/10/20] venlafaxine 75 mg PO DAILY 12/11/20 [History Last Taken 10/16/21] folic acid 1 mg PO DAILY 08/13/21 [History Last Taken 10/16/21] methotrexate sodium 9 mg PO FR 08/13/21 [History Last Taken 10/13/21] tadalafil 5 mg PO DAILY PRN PRN 08/13/21 [History Last Taken 10/15/21] carvedilol 6.25 mg PO BID #60 tab 08/15/21 [Rx Last Taken Unknown] furosemide [Lasix] 40 mg PO DAILY #30 tab 08/15/21 [Rx Last Taken 10/16/21] lisinopril 5 mg PO DAILY #30 tab 08/15/21 [Rx Last Taken 10/16/21] potassium chloride 20 meq PO DAILY #60 tab 08/15/21 [Rx Last Taken 10/16/21] Allergy/AdvReac Type Severity Reaction Status Date / Time morphine Allergy PT UNSURE Verified 10/16/21 14:24 OF REACTION rivaroxaban [From Xarelto] Allergy Other Verified 10/16/21 14:24 Family History Mother CVA (cerebral vascular accident) Diabetes Heart disease Hypertension Father Diabetes Heart disease Pulmonary disease Surgical History History of back surgery Hx of CABG S/P peripheral artery bypass Status post right foot surgery Social History household members: spouse Smoking Status: Never smoker alcohol intake: never substance use type: does not use ROS Constitutional Constitutional: Reports fatigue, lethargy and malaise; Denies anorexia, chills, fever(s) or weakness Cardiovascular Cardiovascular: Denies chest pain, edema, orthopnea, palpitations or syncope Respiratory/Chest Respiratory/Chest: Denies cough, shortness of breath at rest, shortness of breath with exertion or wheezing Gastrointestinal Gastrointestinal: Denies abdominal pain, constipation, diarrhea, nausea or vomiting Genitourinary Genitourinary: Denies dysuria Musculoskeletal Musculoskeletal: Reports extremity pain; Denies back pain, joint pain or joint stiffness Integumentary Integumentary: Reports wounds; Denies dry skin Neurologic Neurologic: Reports weakness; Denies abnormal gait, abnormal speech, confusion, dizziness or focal weakness Psychiatric Psychiatric: Denies anxiety or depression Endocrine Endocrinology: Denies change in body appearance Hematologic/Lymphatic Hematologic/Lymphatic: Denies anemia Vital Signs Vital Signs Vital Signs: 10/16/21 14:22 10/16/21 14:30 10/16/21 18:14 Temperature 97.7 F L 98.2 F Temperature Source Temporal Temporal Pulse Rate 100 99 75 Respiratory Rate 18 14 18 Blood Pressure 104/67 114/75 117/68 Blood Pressure Mean 79 88 84 Pulse Ox 94 93 95 Oxygen Delivery Method Room Air Room Air Room Air Weight Weight: 180 lb Body Mass Index (BMI) 27.3 Physical Exam Const alert, oriented x3 and no apparent distress General Appearance: cooperative HEENT normocephalic and head/scalp atraumatic Eyes conjunctivae normal and no scleral icterus Neck no lymphadenopathy and supple General: trachea midline Resp normal respiratory effort, normal air movement and clear to auscultation bilaterally Cardio regular rate, regular rhythm, S1 normal heart sound, S2 normal heart sound and peripheral pulses 2+ throughout GI normal to inspection, nondistended, normoactive bowel sounds, soft to palpation and non-tender Extremity normal capillary refill and no clubbing, cyanosis or edema General Extremity: no tenderness to palpation of joints or extremities Neuro Neuro Narrative: Small wound to distal right calf with erythema that is 2 x 4 cm. Bilateral significantly erythematous and warm groin consistent with yeast infection with superimposed bacterial infection Psych thought process normal, cooperative and affect normal Appearance: appropriate Results Lab / Micro Data Result Diagrams: 10/16/21 14:35 10/16/21 14:35 Labs: Laboratory Results - last 24 hr 10/16/21 14:35: WBC 9.7, RBC 4.19 L, Hgb 14.0, Hct 42.3, MCV 101.0 H, MCH 33.4 H, MCHC 33.1, RDW Std Deviation 58.6 H, RDW Coeff of Melodie 15.9 H, Plt Count 259, MPV 9.6 10/16/21 14:35: Sodium 136, Potassium 4.3, Chloride 103, Carbon Dioxide 29.0, Anion Gap 4 L, BUN 30 H, Creatinine 1.41 H, Estim Creat Clear Calc 46.49, Est GFR (MDRD) Af Amer 64, Est GFR (MDRD) Non-Af 53 L, BUN/Creatinine Ratio 21.3 H, Glucose 162 H, Calcium 9.3 10/16/21 15:20: Urine Color Yellow, Urine Clarity Clear, Urine pH 5.0, Ur Specific [place] 1.020, Urine Protein 15 H, Urine Glucose (UA) 250 H, Urine Ketones Negative, Urine Occult Blood 50 H, Urine Nitrite Negative, Urine Bilirubin Negative, Urine Urobilinogen Normal, Ur Leukocyte Esterase 25 H, Urine RBC 0-5 SEEN, Urine WBC 0 SEEN, Ur Squamous Epith Cells 0 SEEN, Urine Bacteria 0 SEEN, Urine Mucus 0 SEEN Radiology Impression Chest X-Ray 10/16/21 14:49 IMPRESSION: Status post CABG. No acute abnormality is seen. Electronically Signed: Cedric Mercer MD at 15:11 EDT , Assessment & Plan Assessment/Plan (1) Janene infection of flexural skin: (2) Failure to thrive: (3) Cellulitis of right leg: PLAN: 1. Janene infection of bilateral groin with superimposed bacterial infection -Admit to [facility] -Patient received fluconazole and doxycycline in ER, ceftriaxone ordered IV -Nystatin powder ordered 3 times daily to bilateral groins -Nursing to wash and dry area prior to nystatin administration -Wound nurse consulted -Case management consulted -CBC and BMP ordered daily -Normal saline 100 mL/h x 1 bag -MRSA screen ordered 2. Failure to thrive -Patient's reports that patient is extremely weak and unable to do ADLs as normal -PT and OT to eval and treat -Case management consulted for discharge planning -Troponin x1 ordered, EKG shows sinus rhythm with PVCs and right bundle branch block 3. Cellulitis of the right leg -Ceftriaxone ordered IV -Jesus erythematous area to track improvement -Dry sterile dressing ordered 4. CAD and PAD -Continue Plavix and aspirin -Cardiac diet ordered 5. Hypertension -Continue patient's home medication regimen including Lasix, lisinopril, carvedilol -Vital signs per protocol, currently stable -Continue potassium replacement 6. Diabetes mellitus type 2 -Continue glyburide -ACH S blood sugars with sliding scale insulin ordered 7. Chronic renal insufficiency stage -Patient's baseline 1.2-1.3, currently 1.4 -Normal saline 100 mL/h ordered x1 bag -BMP daily DVT prophylaxis-not indicated, patient currently chronically anticoagulated with Eliquis This patient was seen by Carrie Aguero NP-C under the supervision of Dr. Jiang. 33 minutes spent in clinical coordination of patient's plan of care. Documented by User: Dr. Zulay Jiang MD 10/16/21 18:43 HPI - General General Date of Admission: 10/16/21 [facility] Medical History Back pain with history of spinal surgery Coronary artery disease Diabetes mellitus Foot drop, left foot History of right common carotid artery stent placement Hyperlipidemia Hypertension Peripheral arterial occlusive disease Peripheral vascular disease Home Medications apixaban 5 mg PO BID #60 tab 01/20/20 [Rx Last Taken 10/16/21] aspirin 1 tab PO DAILY 12/11/20 [History Last Taken 10/16/21] clopidogrel 75 mg PO DAILY 12/11/20 [History Last Taken 10/16/21] glyburide 10 mg PO DAILY 12/11/20 [History Last Taken 12/10/20] venlafaxine 75 mg PO DAILY 12/11/20 [History Last Taken 10/16/21] folic acid 1 mg PO DAILY 08/13/21 [History Last Taken 10/16/21] methotrexate sodium 9 mg PO FR 08/13/21 [History Last Taken 10/13/21] tadalafil 5 mg PO DAILY PRN PRN 08/13/21 [History Last Taken 10/15/21] carvedilol 6.25 mg PO BID #60 tab 08/15/21 [Rx Last Taken Unknown] furosemide [Lasix] 40 mg PO DAILY #30 tab 08/15/21 [Rx Last Taken 10/16/21] lisinopril 5 mg PO DAILY #30 tab 08/15/21 [Rx Last Taken 10/16/21] potassium chloride 20 meq PO DAILY #60 tab 08/15/21 [Rx Last Taken 10/16/21] Allergy/AdvReac Type Severity Reaction Status Date / Time morphine Allergy PT UNSURE Verified 10/16/21 14:24 OF REACTION rivaroxaban [From Xarelto] Allergy Other Verified 10/16/21 14:24 Family History Mother CVA (cerebral vascular accident) Diabetes Heart disease Hypertension Father Diabetes Heart disease Pulmonary disease Surgical History History of back surgery Hx of CABG S/P peripheral artery bypass Status post right foot surgery Social History household members: spouse Smoking Status: Never smoker alcohol intake: never substance use type: does not use Results Lab / Micro Data Result Diagrams: 10/16/21 14:35 10/16/21 14:35
[2021-10-16 18:53] VITALS: BMI 26.0
[2021-10-16 18:55] LABS: Troponin-I HS 32 pg/mL (3.0-78.0)
[2021-10-16 19:00] VITALS: BP 108/80; PULSE 91; RESP 18; TEMP 36.6; O2SAT 95
[2021-10-16] MEDS: 0.9% Normal Saline 1,000 ML 100 ML IV (19:45)
[2021-10-16] MEDS: 0.9% Saline Lock 10 ML Syringe IV (19:45)
[2021-10-16 21:24] VITALS: BP 126/81; PULSE 85; RESP 16; TEMP 36.4; O2SAT 96
[2021-10-16] MEDS: Carvedilol 6.25 MG Tablet PO (21:27)
[2021-10-16] MEDS: Nystatin Powder 15gm Bottle 1 APPLIC TOPICAL (21:27)
[2021-10-16] MEDS: Insulin Lispro 100 UNIT/ML INSULN.PEN SC (21:27)
[2021-10-16] MEDS: APIXABAN 5 MG TABLET PO (21:27)
[2021-10-16] MEDS: Acetaminophen 325 MG Tablet 650 MG PO (21:32)
[2021-10-17 00:29] LABS: M R Staph aureus DNA By PCR Negative (Negative); Probe Check PASS; Specimen Processing Control PASS
[2021-10-17 02:16] LABS: Bedside Glucose 201 mg/dL (74-106)
[2021-10-17 02:58] VITALS: BP 109/73; PULSE 70; RESP 16; TEMP 36.6; O2SAT 95
[2021-10-17] MEDS: Menthol/Lanolin/Calamine/Znox 113 GM Tube 1 APPLIC TOPICAL ×3 (05:21→21:58)
[2021-10-17] MEDS: Nystatin Powder 15gm Bottle 1 APPLIC TOPICAL ×3 (05:22→22:20)
[2021-10-17 06:14] LABS: Absolute Lymphocyte Count 1.05 X10^3/uL (0.83-4.51); Absolute Neutrophil Count 4.7 X10^3/uL (2.0-7.7); Basophil# 0.05 X10^3/uL; Basophil% 0.8 % (0-1); Hematocrit 40.8 % (40-54); Hemoglobin 13.2 g/dL (13.0-16.5); Lymphocyte # 1.05 X10^3/ul (0.83-4.51); Lymphocyte % 16.4 % (19-41); Mean Corp Hgb Conc 32.4 g/dL (32-36); Mean Corpuscular Hgb 33.2 pg (27.0-32.0); Mean Corpuscular Volume 102.5 fL (80-94); Mean Platelet Vol. 9.7 fl (6.2-12.0); Monocyte# 0.49 X10^3/uL; Monocyte% 7.7 % (0-10); NRBC Flagged by Analyzer 0 % (0-5); Neutrophil # 4.73 X10^3/uL (2.7-7.7); Platelet Count 229 K/mm3 (150-450); RBC Distribution Width CV 15.9 % (11.6-14.6); RBC Distribution Width SD 60.3 fl (35.1-43.9); Red Blood Count 3.98 M/mm3 (4.6-6.2); White Blood Count 6.4 K/mm3 (4.4-11.0)
[2021-10-17] MEDS: Insulin Lispro 100 UNIT/ML INSULN.PEN SC ×4 (06:23→21:57)
[2021-10-17 06:30] LABS: Bedside Glucose 165 mg/dL (74-106)
[2021-10-17 06:35] LABS: Anion Gap 6 (5-15); BUN 25 mg/dL (7-18); BUN/Creat Ratio 22.7 RATIO (10-20); Calcium,Total 8.6 mg/dL (8.5-10.1); Chloride 104 mmol/L (98-107); EST Glomerular Filtration Rate 70 mL/min (>60); Est Glom Filt Rate - Afr Amer 85 mL/min (>60); Estimated Creatinine Clearance 59.59 ml/min; Glucose 154 mg/dL (74-106); Potassium 4.5 mmol/L (3.5-5.1); Sodium Level 136 mmol/L (136-145)
--- NOTE | 2021-10-17 08:49 | WOUNDNOTE ---
wound photo: right lateral lower leg
--- NOTE | 2021-10-17 08:49 | WOUNDNOTE ---
wound photo: left buttock
[2021-10-17] MEDS: Venlafaxine XR 75 MG Capsule PO (08:55)
[2021-10-17] MEDS: Folic Acid 1 MG Tablet PO (08:55)
[2021-10-17] MEDS: Furosemide 40 MG Tablet PO (08:55)
[2021-10-17] MEDS: Lisinopril 5 MG Tablet PO (08:55)
[2021-10-17] MEDS: Potassium Chloride Oral Tablet 20 MEQ PO (08:55)
[2021-10-17] MEDS: APIXABAN 5 MG TABLET PO ×2 (08:55→21:56)
[2021-10-17] MEDS: Clopidogrel Bisulfate 75 MG Tablet PO (08:55)
[2021-10-17] MEDS: Carvedilol 6.25 MG Tablet PO ×2 (08:55→21:56)
[2021-10-17] MEDS: Aspirin 81 MG TAB.CHEW PO (08:55)
[2021-10-17] MEDS: Glucerna Shake 120 ML LIQUID PO ×3 (08:59→15:51)
--- NOTE | 2021-10-17 09:55 | CASEMGMT ---
MARLYS FULTON Assessment: Face to Face with pt for initial transition planning/care coordination assessment. MARLYS FULTON introduced self and role at [facility], pt voices understanding and consents to assessment. Pt is A/O x4 and answers all questions appropriately at this time. Pt lying in bed in no distress. Care providers, pharmacy, and demographics verified/updated. Admitting Dx: cellulitis, FTT PCP: Ricardo Specialists:Pt denies having any specialists. Preferred Pharmacy: [facility] Insurance: [facility]. MMO Prescription Benefit: yes LW/HPOA: Pt has LW on file at [facility]. Pt states he also has a DPOA and it is his . He is aware this is not on file at [facility] and he may bring in to be scanned into the chart. LNOK: Ju Rodriguez, Living Arrangements: Pt lives with and dtr in a single story house with 3 steps to enter with a rail. Pt reports his assists him with dressing and bathing. Pt denies concerns at home. Transportation: Pt provides transportation. DME/HHC/SNF: Pt has a w/c, cane and FWW as well as BGM at home with sufficient supplies including lancets and strips. Pt states he has had HHC in the past but is not sure of the name of the agency. Pt also reports he was in a SNF in [place] but does not know the name and states I will not go to another one. States he was highly disappointed. Pt states no concerns with going home at time of dc. Discussed that currently he is needing 2 assist. Therapy has not yet worked with him. Pt does not want HHC either again. Asked pt if his dtr and are able to assist him at home and he states his has up until this point. Pt designates his as his contact center assistant for dc plans. Pt states no further concerns/needs. CM to follow. Advised pt to ask CM if any further question/concerns/needs arise, voices understanding. Pt Goal: Home Plan: TBD pending therapy
--- NOTE | 2021-10-17 10:40 | PN.HOSP_ITS ---
Subjective Subjective Patient seen and examined. HE had an uneventful night and has no active complaints today. Review of systems is otherwise negative. Vitals have remained stable. Objective Data Objective Data Vital Signs: Vital Signs Temp Pulse Resp BP Pulse Ox 97.8 F 70 16 109/73 95 10/17/21 02:58 10/17/21 02:58 10/17/21 02:58 10/17/21 02:58 10/17/21 02:58 Oxygen Delivery Method Room Air Weight: 171 lb 3.2 oz Body Mass Index (BMI) 26.0 Intake & Output: Intake and Output for Last 24 Hours 10/15/21 10/16/21 10/17/21 23:59 23:59 23:59 Intake Total 1000 / 1000 Output Total 700 / 700 Balance 300 / 300 Lab / Micro Data Result Diagrams: 10/17/21 05:56 10/17/21 05:56 Labs: Laboratory Results - last 24 hr 10/16/21 14:35: WBC 9.7, RBC 4.19 L, Hgb 14.0, Hct 42.3, MCV 101.0 H, MCH 33.4 H , MCHC 33.1, RDW Std Deviation 58.6 H, RDW Coeff of Melodie 15.9 H, Plt Count 259, MPV 9.6 10/16/21 14:35: Sodium 136, Potassium 4.3, Chloride 103, Carbon Dioxide 29.0, Anion Gap 4 L, BUN 30 H, Creatinine 1.41 H, Estim Creat Clear Calc 46.49, Est GFR (MDRD) Af Amer 64, Est GFR (MDRD) Non-Af 53 L, BUN/Creatinine Ratio 21.3 H, Glucose 162 H, Calcium 9.3 10/16/21 14:35: Troponin I High Sens 32 10/16/21 15:20: Urine Color Yellow, Urine Clarity Clear, Urine pH 5.0, Ur Specific [place] 1.020, Urine Protein 15 H, Urine Glucose (UA) 250 H, Urine Ketones Negative, Urine Occult Blood 50 H, Urine Nitrite Negative, Urine Bilirubin Negative, Urine Urobilinogen Normal, Ur Leukocyte Esterase 25 H, Urine RBC 0-5 SEEN, Urine WBC 0 SEEN, Ur Squamous Epith Cells 0 SEEN, Urine Bacteria 0 SEEN, Urine Mucus 0 SEEN 10/16/21 18:35: COVID-19 (JG) Not Detected 10/16/21 21:21: POC Glucose 201 H 10/16/21 22:00: MRSA (PCR) Negative 10/17/21 05:56: WBC 6.4, RBC 3.98 L, Hgb 13.2, Hct 40.8, MCV 102.5 H, MCH 33.2 H , MCHC 32.4, RDW Std Deviation 60.3 H, RDW Coeff of Melodie 15.9 H, Plt Count 229, MPV 9.7, Immature Gran % (Auto) 1.100 H, Neut % (Auto) 74.0 H, Lymph % (Auto) 16.4 L, [place] % (Auto) 7.7, Eos % (Auto) 0.0, Baso % (Auto) 0.8, Absolute Neuts (auto) 4.7, Absolute Lymphs (auto) 1.05, Nucleated RBC % 0 10/17/21 05:56: Sodium 136, Potassium 4.5, Chloride 104, Carbon Dioxide 26.0, Anion Gap 6, BUN 25 H, Creatinine 1.10, Estim Creat Clear Calc 59.59, Est GFR (MDRD) Af Amer 85, Est GFR (MDRD) Non-Af 70, BUN/Creatinine Ratio 22.7 H, Glucose 154 H, Calcium 8.6 10/17/21 06:22: POC Glucose 165 H Radiography Diagnostic Testing: Radiology Impression Chest X-Ray 10/16/21 14:49 IMPRESSION: Status post CABG. No acute abnormality is seen. Electronically Signed: Cedric Mercer MD at 15:11 EDT , Physical Exam Const alert, oriented x3 and no apparent distress Exam Limitations: no limitations and altered mental status HEENT head/scalp atraumatic, moist oral mucous membranes and oropharynx normal Head and Scalp: normocephalic Eyes PERRL, EOMs intact bilaterally and conjunctivae normal Neck no lymphadenopathy, supple and no JVD Resp normal respiratory effort, no retractions, no use of accessory muscles and clear to auscultation bilaterally Cardio regular rate, regular rhythm, S1 normal heart sound, S2 normal heart sound and no murmurs GI normal to inspection, nondistended, normoactive bowel sounds, soft to palpation, non-tender and non-distended Extremity normal to inspection, full ROM and no clubbing, cyanosis or edema Peripheral Pulses: Yes pulses 2+ throughout Skin Skin Narrative: erythema in groin folds, due to yeast infection Neuro oriented x3 and CN's II-XII intact bilaterally Sensorium / Orientation: awake and alert Psych Psych Narrative: flat affect Assessment & Plan Assessment/Plan (1) Cellulitis of right leg: (2) Failure to thrive: (3) Anjelica infection of flexural skin: PLAN: #Cellulitis of the RLE * on IV ceftriaxone * wound care consulted * #Intertrigo anjelica infection * has yeast infection of groin area, concerning for superimposed bacterial infection * nystatin powder * on IV ceftriaxone for cellulitis * #Debility failure to thrive * PT/OT on board * fall precautions * #History of CAD on aspirin, plavix and statin #History of stroke * o aspirin, plavix and statin * #Hypertension: on lisinopril, carvedilol. #Type 2 diabetes mellius: On glyburide. ISS. Accuchecks ACHS #Anxiety and depression; on venlafzxine #DVT prophylaxis: not indicated as patient is on eliquis Charges/Coding Visit Charges Inpatient E&M: 09467 Subs Hosp L2
[2021-10-17] MEDS: 0.9% Saline Lock 10 ML Syringe IV (10:41)
[2021-10-17 11:40] LABS: Bedside Glucose 207 mg/dL (74-106)
--- NOTE | 2021-10-17 12:01 | CASEMGMT ---
Addendum entered by Sarah Orozco 10/17/21 13:59: MARLYS FULTON in to pt room, pt at bedside. Discussed pt needs with therapy and pt still states he is not going home with therapy nor going to a facility. Pt turned to pt and stated she cannot take care of him. States she hurt her shoulder, back and she works. Pt quiet. Discussed SNF options, pt is agreeable to going to [facility] TCU only. Notified APPRAISAL ANALYST. Original Note: Spoke with therapy, pt is declining SNF or HHC but would benefit. TC to pt , phone number states not available temporarily. MARLYS FULTON in to pt room to verify again the phone number. Pt states he doesn't know what is wrong with it. He states his will be in visiting today. MARLYS FULTON to check back in when visiting to further discuss dc plan.
--- NOTE | 2021-10-17 14:00 | CASEMGMT ---
Social Work Note SW updated that pt and pt's are agreeable to TCU. SW placed a call to Coco with TCU and provided referral. Plan: TCU pending acceptance Savanna Brian MSW, PSYCHOMETRICIAN
[2021-10-17 14:20] VITALS: BP 92/50; PULSE 68; RESP 16; TEMP 36.4; O2SAT 96
[2021-10-17] MEDS: Acetaminophen 325 MG Tablet 650 MG PO (15:41)
[2021-10-17 15:56] LABS: Bedside Glucose 236 mg/dL (74-106)
--- NOTE | 2021-10-17 17:23 | CASEMGMT ---
Social Work Note SW received call from Coco with TCU stating TCU can accept pt tomorrow. SW in to speak with pt. SW introduced self and role at [facility]. Patient was provided a list of SNF providers including quality and resource use data and consistent with the patient?s preferred geographic region, medical needs, and insurance network. SW updated pt that TCU Can accept pt tomorrow. Pt states understanding. SW asked pt if he wanted this worker to call his to update, pt gave permission for this worker to do so. SW attempted to call pt's Ju to update, no answer, SW left message for Ju to call this worker back or that this worker can call her tomorrow. Plan: TCU tomorrow Savanna Brian HARVEST FIELD TICKETER, SLOT AMBASSADOR
[2021-10-17 18:05] VITALS: BP 114/67; PULSE 74; RESP 18; TEMP 36.6; O2SAT 98
[2021-10-17 21:51] VITALS: BP 111/80; PULSE 84; RESP 18; TEMP 36.8; O2SAT 96
[2021-10-17 22:06] LABS: Bedside Glucose 169 mg/dL (74-106)
[2021-10-18 03:14] VITALS: BP 109/67; PULSE 74; RESP 16; TEMP 36.4; O2SAT 97
[2021-10-18] MEDS: Acetaminophen 325 MG Tablet 650 MG PO ×2 (03:16→08:52)
[2021-10-18] MEDS: Nystatin Powder 15gm Bottle 1 APPLIC TOPICAL (05:21)
[2021-10-18] MEDS: 0.9% Saline Lock 10 ML Syringe IV ×2 (05:21→08:51)
[2021-10-18] MEDS: Insulin Lispro 100 UNIT/ML INSULN.PEN SC ×2 (06:48→11:41)
[2021-10-18 06:55] LABS: Bedside Glucose 167 mg/dL (74-106)
[2021-10-18 08:08] LABS: Absolute Lymphocyte Count 1.21 X10^3/uL (0.83-4.51); Absolute Neutrophil Count 4.7 X10^3/uL (2.0-7.7); Basophil# 0.06 X10^3/uL; Basophil% 0.9 % (0-1); Eosinophil# 0.01 X10^3/uL; Eosinophils% 0.2 % (0-5); Hematocrit 41.5 % (40-54); Hemoglobin 13.5 g/dL (13.0-16.5); Lymphocyte # 1.21 X10^3/ul (0.83-4.51); Lymphocyte % 18.6 % (19-41); Mean Corp Hgb Conc 32.5 g/dL (32-36); Mean Corpuscular Hgb 33.3 pg (27.0-32.0); Mean Corpuscular Volume 102.2 fL (80-94); Mean Platelet Vol. 9.8 fl (6.2-12.0); Monocyte# 0.51 X10^3/uL; Monocyte% 7.8 % (0-10); NRBC Flagged by Analyzer 0 % (0-5); Neutrophil # 4.67 X10^3/uL (2.7-7.7); Neutrophil % 71.6 % (47-70); Platelet Count 229 K/mm3 (150-450); RBC Distribution Width CV 15.8 % (11.6-14.6); RBC Distribution Width SD 59.2 fl (35.1-43.9); Red Blood Count 4.06 M/mm3 (4.6-6.2); White Blood Count 6.5 K/mm3 (4.4-11.0)
[2021-10-18 08:30] VITALS: O2SAT 96
[2021-10-18 08:30] LABS: Anion Gap 4 (5-15); BUN 29 mg/dL (7-18); BUN/Creat Ratio 24.2 RATIO (10-20); Calcium,Total 9.1 mg/dL (8.5-10.1); Chloride 106 mmol/L (98-107); EST Glomerular Filtration Rate 63 mL/min (>60); Est Glom Filt Rate - Afr Amer 77 mL/min (>60); Estimated Creatinine Clearance 54.63 ml/min; Glucose 161 mg/dL (74-106); Potassium 4.3 mmol/L (3.5-5.1); Sodium Level 139 mmol/L (136-145)
[2021-10-18 08:41] VITALS: BP 106/64; PULSE 84; RESP 18; TEMP 36.6; O2SAT 97
[2021-10-18] MEDS: Aspirin 81 MG TAB.CHEW PO (08:48)
[2021-10-18] MEDS: Carvedilol 6.25 MG Tablet PO (08:48)
[2021-10-18] MEDS: Furosemide 40 MG Tablet PO (08:49)
[2021-10-18] MEDS: Clopidogrel Bisulfate 75 MG Tablet PO (08:49)
[2021-10-18] MEDS: Lisinopril 5 MG Tablet PO (08:49)
[2021-10-18] MEDS: Potassium Chloride Oral Tablet 20 MEQ PO (08:50)
[2021-10-18] MEDS: Folic Acid 1 MG Tablet PO (08:50)
[2021-10-18] MEDS: APIXABAN 5 MG TABLET PO (08:50)
[2021-10-18] MEDS: Venlafaxine XR 75 MG Capsule PO (08:53)
--- NOTE | 2021-10-18 11:31 | PCM.DC.SUM ---
Providers Date of Admission: 10/16/21 Primary Care Physician: Dr. Mckayla Silva, Consultations 10/16/21 18:55 Consult: Onc/Wound/cementer machine applicator Routine Comment: Reason for Consult:: bilateral groin yeast with bacterial infection Reason For Visit: CELLULITIS, FTT Diagnosis Discharge Diagnosis (1) Cellulitis of right leg: Status: Acute Code(s): L03.115 - Cellulitis of right lower limb (2) Failure to thrive: Status: Acute (3) Janene infection of flexural skin: Status: Acute Code(s): B37.2 - Candidiasis of skin and nail Medications at Discharge Home Medications apixaban 5 mg PO BID #60 tab 01/20/20 aspirin 1 tab PO DAILY 12/11/20 clopidogrel 75 mg PO DAILY 12/11/20 glyburide 10 mg PO DAILY 12/11/20 venlafaxine 75 mg PO DAILY 12/11/20 folic acid 1 mg PO DAILY 08/13/21 methotrexate sodium 9 mg PO FR 08/13/21 tadalafil 5 mg PO DAILY PRN PRN 08/13/21 carvedilol 6.25 mg PO BID #60 tab 08/15/21 furosemide [Lasix] 40 mg PO DAILY #30 tab 08/15/21 lisinopril 5 mg PO DAILY #30 tab 08/15/21 potassium chloride 20 meq PO DAILY #60 tab 08/15/21 cephalexin 500 mg PO Q8H #15 cap 10/18/21 nystatin 1 applic TOPICAL TID #30 g 10/18/21 Hospital Course Operations None Procedures None Summary of Care Provided Minutes Spent on Discharge: 45 Hospital Course: Patient is a 71-year-old male with past medical history as outlined who was admitted via the ED on 10/16/2021 with a complaint of weakness. He had been getting weaker and more debilitated, and couldnt carry out his activities of daily living. He also reportedly had a yeast infection in his right groin. also reported that he had an erythematous wound on his right lower calf which had been getting more erythematous and warmer. He was admitted and managed for debility and generalised weakness, as well as cellulitis of the right calf and yeast infection with superimposed bacterial infection of the right groin. He was started on IV ceftriaxone and nystatin powder for the right groin. PT/OT also worked with patient. THe redness in the groin gradually improved. Redness of right calf also improved. He was deemed to need SNF and was discharged to TCU on 10/18/2021. He was discharged on PO keflex for 5 days for the cellulitis of the right calf. He was also discharged on nystatin powder for the right groin. Patient seen and examined prior to discharge. He had no active complaints and had an uneventful night. Review of systems was otherwise negative. Labs and vitals reviewed. Home meds reviewed and reconciled. Physical Exam Const alert, oriented x3 and no apparent distress General Appearance: cooperative Exam Limitations: no limitations and altered mental status HEENT normocephalic, head/scalp atraumatic, moist oral mucous membranes and oropharynx normal Eyes PERRL, EOMs intact bilaterally, conjunctivae normal and no scleral icterus Neck no lymphadenopathy, supple and no JVD General: trachea midline Resp normal respiratory effort, normal air movement, no retractions, no use of accessory muscles and clear to auscultation bilaterally Cardio regular rate, regular rhythm, S1 normal heart sound, S2 normal heart sound, no murmurs and peripheral pulses 2+ throughout GI normal to inspection, nondistended, normoactive bowel sounds, soft to palpation, non-tender and non-distended Extremity normal to inspection, full ROM, normal capillary refill and no clubbing, cyanosis or edema General Extremity: no tenderness to palpation of joints or extremities Skin Skin Narrative: erythema in groin folds, due to yeast infection; mild erythematous area of right lower calf area; no tenderness Neuro oriented x3 and CN's II-XII intact bilaterally Sensorium / Orientation: awake and alert Psych thought process normal, cooperative and affect normal Psych Narrative: flat affect Appearance: appropriate Medical Records Data Medical Nutrition Assessment Dietitian: Malnutrition Criteria Met Start: 10/17/21 12:33 Freq: Status: Active Protocol: Document 10/17/21 12:33 AG (Rec: 10/17/21 12:33 AG [id number]) Nutrition Malnutrition Evidence of Malnutrition Exists Yes Malnutrition (moderate): Chronic Evidenced By Suboptimal Energy Intake ( Moderate),Weight Loss (Severe) Clinical Problem Chronic Disease or Condition Related Malnutrition Etiology moderate, chronic malnutrition related to decreased appetite Signs/Symptoms as evidenced by estimated PO intake meeting <75% of estimated energy needs > 3 months, unintentional wt loss of 16.2#/9% x 2 months Status Active Problem Recommendation Dietitian Recommendations/Changes continue cardiac, CHO controlled diet; continue Glucerna 120mL TID given malnutrition; will consider liberalizing diet if PO intake is poor at meals. Weight / BMI Weight Weight: 171 lb 3.199 oz Body Mass Index (BMI) 26.0 ABG / Lab / Microbiology Data Result Diagrams: 10/18/21 07:51 10/18/21 07:51 Laboratory: Laboratory Results - last 24 hr 10/17/21 11:35: POC Glucose 207 H 10/17/21 15:47: POC Glucose 236 H 10/17/21 21:54: POC Glucose 169 H 10/18/21 06:46: POC Glucose 167 H 10/18/21 07:51: WBC 6.5, RBC 4.06 L, Hgb 13.5, Hct 41.5, MCV 102.2 H, MCH 33.3 H, MCHC 32.5, RDW Std Deviation 59.2 H, RDW Coeff of Melodie 15.8 H, Plt Count 229, MPV 9.8, Immature Gran % (Auto) 0.900, Neut % (Auto) 71.6 H, Lymph % (Auto) 18.6 L, [place] % (Auto) 7.8, Eos % (Auto) 0.2, Baso % (Auto) 0.9, Absolute Neuts (auto) 4.7, Absolute Lymphs (auto) 1.21, Nucleated RBC % 0 10/18/21 07:51: Sodium 139, Potassium 4.3, Chloride 106, Carbon Dioxide 29.0, Anion Gap 4 L, BUN 29 H, Creatinine 1.20, Estim Creat Clear Calc 54.63, Est GFR (MDRD) Af Amer 77, Est GFR (MDRD) Non-Af 63, BUN/Creatinine Ratio 24.2 H, Glucose 161 H, Calcium 9.1 D/C Instructions Discharge Diet: Low fat / Low cholesterol Discharge Activity: Return to Normal Activity Weight Bearing Status: Weight bearing as tolerated Call your doctor if you observe: Fever of 101 or Higher, Shortness of breath and Swelling in the ankles Meaningful Use Info Meaningful Use Diagnoses (Choose all that apply): None applicable Discharge Plan Admission Admit Date/Time: 10/16/21 18:14 Primary Reason for Your Visit: debility, cellulitis Attending Provider: No Stephenson Primary Care Provider: Mckayla Silva Consulting Providers: Zulay Jiang Instructions Patient Instructions: Cellulitis Discharge Orders/Prescriptions Prescriptions: New cephalexin 500 mg capsule 500 mg PO Q8H Qty: 15 RF: 0 nystatin 100,000 unit/gram powder 1 applic topical TID Qty: 30 RF: 0 Continued apixaban 5 MG tablet 5 mg PO BID Qty: 60 RF: 0 glyburide 5 mg Tablet 10 mg PO DAILY RF: 0 clopidogrel 75 mg Tablet 75 mg PO DAILY RF: 0 venlafaxine 75 mg Tablet Extended Release 24hr 75 mg PO DAILY RF: 0 aspirin 81 mg tablet,chewable 1 tab PO DAILY RF: 0 methotrexate sodium 2.5 mg tablet 9 mg PO FR RF: 0 folic acid 1 mg Tablet 1 mg PO DAILY RF: 0 tadalafil 10 mg tablet 5 mg PO DAILY PRN PRN (Reason: NEEDED) RF: 0 lisinopril 5 mg Tablet 5 mg PO DAILY Qty: 30 RF: 0 furosemide [Lasix] 40 mg tablet 40 mg PO DAILY Qty: 30 RF: 0 potassium chloride 10 mEq tablet extended release 20 meq PO DAILY Qty: 60 RF: 0 carvedilol 6.25 mg tablet 6.25 mg PO BID Qty: 60 RF: 0 Referrals / Follow Up: Mckayla Silva DO [Primary Care Provider] - Disposition Disposition (needs filled in before D/C Order can be placed): [facility] Facility Charges/Coding Visit Charges Inpatient E&M: 30855 Disch Hosp
[2021-10-18 11:51] LABS: Bedside Glucose 186 mg/dL (74-106)
--- NOTE | 2021-10-18 11:58 | TREXTCAR_ITS ---
Diet 10/16/21 18:56 Diet: Cardiac - Heart Healthy Food consistency:: Regular Liquid Consistency:: Regular/Thin Dietary Modifications:: Consistent Carbohydrate Is pt able to select menu?: Yes Routine Orders/Code Status Enema Type: Fleetz Enema Frequency: Daily PRN Suppository Type: Dulcolax 10mg Suppository Frequency: Daily PRN O2 Frequency: PRN Keep PO Greater than or Equal to (%): 90 Wound(s) rt leg: Wound Type: small scabbed area buttocks: Wound Type: Pressure Injury left buttock: Wound Type: shearing Therapies Weight Bearing: Weight bearing as tolerated Physical Therapy: Eval and Treat Occupational Therapy: Eval and Treat Problem/Diagnosis (1) Cellulitis of right leg: Status: Acute (2) Failure to thrive: Status: Acute (3) Janene infection of flexural skin: Status: Acute Allergies/Procedures Done in Hospital Allergies morphine Allergy (Verified 10/16/21 14:24) PT UNSURE OF REACTION i was told after surgery that i shouldn't have it rivaroxaban [From Xarelto] Allergy (Verified 10/16/21 14:24) Other Procedures: None Type of Care/Length of Stay Estimated LOS: Convalescent Care Less Than 30 days Type of Care Needed: Skilled Rehab Potential: Fair Prognosis: Fair Additional Orders/Day of Discharge Day of Discharge: 10/18/21 Dietary and Speech Recommendations Dietitian Recommendations/Changes: continue cardiac, CHO controlled diet; continue Glucerna 120mL TID given malnutrition; will consider liberalizing diet if PO intake is poor at meals. Discharge Plan Admission Admit Date/Time: 10/16/21 18:14 Primary Reason for Your Visit: debility, cellulitis Attending Provider: No Stephenson Primary Care Provider: Mckayla Silva Consulting Providers: Zulay Jiang Instructions Patient Instructions: Cellulitis Discharge Orders/Prescriptions Prescriptions: New cephalexin 500 mg capsule 500 mg PO Q8H Qty: 15 RF: 0 nystatin 100,000 unit/gram powder 1 applic topical TID Qty: 30 RF: 0 Continued apixaban 5 MG tablet 5 mg PO BID Qty: 60 RF: 0 glyburide 5 mg Tablet 10 mg PO DAILY RF: 0 clopidogrel 75 mg Tablet 75 mg PO DAILY RF: 0 venlafaxine 75 mg Tablet Extended Release 24hr 75 mg PO DAILY RF: 0 aspirin 81 mg tablet,chewable 1 tab PO DAILY RF: 0 methotrexate sodium 2.5 mg tablet 9 mg PO FR RF: 0 folic acid 1 mg Tablet 1 mg PO DAILY RF: 0 tadalafil 10 mg tablet 5 mg PO DAILY PRN PRN (Reason: NEEDED) RF: 0 lisinopril 5 mg Tablet 5 mg PO DAILY Qty: 30 RF: 0 furosemide [Lasix] 40 mg tablet 40 mg PO DAILY Qty: 30 RF: 0 potassium chloride 10 mEq tablet extended release 20 meq PO DAILY Qty: 60 RF: 0 carvedilol 6.25 mg tablet 6.25 mg PO BID Qty: 60 RF: 0 Referrals / Follow Up: Mckayla Silva DO [Primary Care Provider] - Disposition Disposition (needs filled in before D/C Order can be placed): [facility] Facility
--- NOTE | 2021-10-18 12:37 | CASEMGMT ---
Social Work Note Discharge is in for TCU. SW placed a call to Coco with TCU and updated her. SW in to speak with pt. SW updated pt that he will discharge to TCU today and that this worker will call his to update. Pt states understanding. KANDI placed a call to pt's Ju and updated her that pt will discharge to TCU today. SW explained Medicare coverage at SNF. Ju states understanding. Plan: TCU today Savanna Brian SKIP LOCATOR, COIL REPAIR TECHNICIAN
[2021-10-18 14:19] VITALS: BP 93/60; PULSE 66; RESP 18; TEMP 36.5; O2SAT 98
== END 2021-10-18 16:15 | disposition skilled nursing facility (03) | DRG 603 ==
LOC: ED 18:07 → MS3 18:55
PROVIDERS: Nurse Practitioner Family; Admitting Provider Family Medicine; Emergency Provider Emergency Medicine; PCP Family Medicine; Visit Provider Student in an Organized Health Care Education/Training Program
DX: L03.115 Cellulitis of right lower limb (principal); L30.4 Erythema intertrigo; E44.0 Moderate protein-calorie malnutrition; I13.0 Hypertensive heart and chronic kidney disease with heart failure and stage 1 through stage 4 chronic kidney disease, or unspecified chronic kidney disease; I69.351 Hemiplegia and hemiparesis following cerebral infarction affecting right dominant side; R62.7 Adult failure to thrive; E11.22 Type 2 diabetes mellitus with diabetic chronic kidney disease; B37.2 Candidiasis of skin and nail; I50.9 Heart failure, unspecified; E11.40 Type 2 diabetes mellitus with diabetic neuropathy, unspecified; E11.51 Type 2 diabetes mellitus with diabetic peripheral angiopathy without gangrene; I25.10 Atherosclerotic heart disease of native coronary artery without angina pectoris; E78.5 Hyperlipidemia, unspecified; N18.2 Chronic kidney disease, stage 2 (mild); F32.A Depression, unspecified; F41.9 Anxiety disorder, unspecified; M21.372 Foot drop, left foot; H91.93 Unspecified hearing loss, bilateral; Z79.01 Long term (current) use of anticoagulants; Z79.84 Long term (current) use of oral hypoglycemic drugs; Z79.82 Long term (current) use of aspirin; Z79.02 Long term (current) use of antithrombotics/antiplatelets; Z20.822 Contact with and (suspected) exposure to COVID-19; Z68.26 Body mass index [BMI] 26.0-26.9, adult
CPT/HCPCS: 36415; 71046; 80048; 81001; 82962; 84484; 85025; 85027; 87426; 87635; 87641; 93005; 97162; 97166; 97530; 97535; 97802; 99284; J7030; J7050; A4216; J0696; U0003; U0005

== ENCOUNTER 2021-10-18 16:23 | Inpatient (IN) | payer MEDICARE, OTHER, SELFPAY ==
[2021-10-18 16:28] VITALS: BP 107/64; PULSE 84; RESP 18; TEMP 36.5; O2SAT 96
[2021-10-18 16:40] VITALS: BMI 26.4
[2021-10-18] MEDS: Acetaminophen 500 MG Tablet 1000 MG PO (18:07)
[2021-10-18] MEDS: APIXABAN 5 MG TABLET PO (18:08)
[2021-10-18] MEDS: Glucerna Shake 120 ML LIQUID PO (18:08)
[2021-10-18] MEDS: Carvedilol 6.25 MG Tablet PO (18:09)
--- NOTE | 2021-10-18 20:14 | HP.PCM_ITS ---
HPI - General General Date of Admission: 10/18/21 HPI Narrative 10/16/2021 TRAM RIVERA, is a 71 Male who presents to [facility] Emergency Department with weakness. 10/16/2021 EKG sinus rhythm with occasional premature ventricular contractions, right bundle branch block, inferior infarct, age undetermined. Fatigue x 3 days, distal right calf wound, right groin yeast infection. unable to care for patient at home. 10/16/2021 Admit to Hospital. Fluconazole, Nystatin powder tid for tinea cruris. Ceftriaxone, Doxycycline for right lower extremity cellulitis. IV fluids for acute kidney injury. PT/OT for debility. 10/17/2021 Ceftriaxone IV for right lower extremity cellulitis. Nystatin powder for tinea cruris. 10/18/2021 Admit to TCU with debility, here for rehabilitation, strengthening, prior to disposition determination. [facility] Medical History Back pain with history of spinal surgery Coronary artery disease Diabetes mellitus Foot drop, left foot History of right common carotid artery stent placement Hyperlipidemia Hypertension Peripheral arterial occlusive disease Peripheral vascular disease Home Medications aspirin 1 tab PO DAILY 12/11/20 [History Last Taken 10/16/21] clopidogrel 75 mg PO DAILY 12/11/20 [History Last Taken 10/16/21] glyburide 10 mg PO DAILY 12/11/20 [History Last Taken 12/10/20] venlafaxine 75 mg PO DAILY 12/11/20 [History Last Taken 10/16/21] folic acid 1 mg PO DAILY 08/13/21 [History Last Taken 10/16/21] methotrexate sodium 17.5 mg PO FR 08/13/21 [History Last Taken 10/13/21] tadalafil 5 mg PO DAILY PRN PRN 08/13/21 [History Last Taken 10/15/21] apixaban 5 mg PO BID 10/18/21 [History Last Taken Unknown] carvedilol 6.25 mg PO BID 10/18/21 [History Last Taken Unknown] cephalexin 500 mg PO Q8H 10/18/21 [History Last Taken Unknown] furosemide [Lasix] 40 mg PO DAILY 10/18/21 [History Last Taken Unknown] lisinopril 5 mg PO DAILY 10/18/21 [History Last Taken Unknown] nystatin 1 applic TOPICAL TID 10/18/21 [History Last Taken Unknown] potassium chloride 20 meq PO DAILY 10/18/21 [History Last Taken Unknown] Allergy/AdvReac Type Severity Reaction Status Date / Time morphine Allergy PT UNSURE Verified 10/16/21 14:24 OF REACTION rivaroxaban [From Xarelto] Allergy Other Verified 10/16/21 14:24 Family History Mother CVA (cerebral vascular accident) Diabetes Heart disease Hypertension Father Diabetes Heart disease Pulmonary disease Surgical History History of back surgery Hx of CABG S/P peripheral artery bypass Status post right foot surgery Social History household members: spouse Smoking Status: Never smoker alcohol intake: never substance use type: does not use ROS Constitutional Constitutional: Denies chills, fever(s) or weight gain ENT HEENT: Denies headache(s), nasal congestion or nasal discharge Cardiovascular Cardiovascular: Denies chest pain or palpitations Respiratory/Chest Respiratory/Chest: Denies cough, excessive phlegm production or shortness of breath with exertion Gastrointestinal Gastrointestinal: Denies abdominal pain, nausea or vomiting Genitourinary Genitourinary: Denies dysuria Musculoskeletal Musculoskeletal: Denies joint pain or joint swelling Integumentary Integumentary: Denies rash or wounds Neurologic Neurologic: Denies focal weakness, numbness or tingling Psychiatric Psychiatric: Denies anxiety, auditory hallucinations, depression, homicidal ideation or suicidal ideation Vital Signs Vital Signs Vital Signs: 10/18/21 16:28 Temperature 97.7 F L Temperature Source Oral Pulse Rate 84 Pulse Rhythm Regular Pulse Strength Normal (2+) Respiratory Rate 18 Respiratory Effort Normal Non-Labored Respiratory Depth Normal Respiratory Pattern Normal Blood Pressure 107/64 Blood Pressure Mean 78 Blood Pressure Source Monitor Blood Pressure Position Sitting Blood Pressure Location Left Arm Pulse Ox 96 Oxygen Delivery Method Room Air Weight Weight: 79.01 kg Body Mass Index (BMI) 26.4 Physical Exam Const alert General Appearance: cooperative HEENT normocephalic Eyes PERRL and EOMs intact bilaterally Neck supple, no JVD and no carotid bruits Resp normal respiratory effort, normal air movement and clear to auscultation bilaterally Cardio regular rate and regular rhythm GI normal to inspection, nondistended, normoactive bowel sounds, non-tender and non-distended Extremity normal capillary refill General Extremity: Negative for edema Skin no rashes or lesions noted General Skin Exam: no breakdown Psych affect normal Appearance: appropriate Assessment & Plan Assessment/Plan (1) Debility: (2) Cellulitis of right leg: (3) Tinea cruris: (4) Acute kidney injury: (5) Peripheral arterial occlusive disease: (6) Diabetes mellitus: (7) Depression: (8) Coronary artery disease: (9) Stroke: (10) Hypertension: (11) Erectile dysfunction: (12) Hypokalemia: PLAN: 71 year old male with below past medical history hospitalized for right lower extremity cellulitis, tinea cruris, acute kidney injury, admitted to TCU with debility, here for rehabilitation, strengthening, prior to disposition determination. * Debility - PT/OT. * Pain - Tylenol 1000mg q6h prn pain (1-10). * Bowel - Miralax 17gm daily, senna/colace 1 tablet bid, Dulcolax 10mg pr daily prn. * Adult immunization - Administer pneumonia vaccine, flu vaccine, covid19 vaccine as appropriate. * DVT prophylaxis - Not necessary, already on Eliquis. * LV thrombus - Eliquis 5mg bid. * Coronary artery disease - Coreg 6.25mg bid, Lisinopril 5mg daily, Plavix 75mg daily, Eliquis 5mg bid. Stop aspirin, increases bleeding risk without further lowering cardiovascular risk. * Right lower extremity cellulitis - Keflex 500mg q8h thru 10/23/2021. * Rheumatoid arthritis - MTX 17.5mg per week, folic acid 1mg daily. * Edema - Furosemide 40mg daily. * Nutrition - Glucerna shake 120ml po tidcm. * Diabetes Mellitus II - Glyburide 10mg daily. * Tinea Corporis - Nystatin powder topical tid. * Hypokalemia - KCL 20meq daily. * Depression - Venlafaxine XR 75mg daily, stable chronic director energy use, GDR not recommended.
[2021-10-18] MEDS: Senna/Docusate Sodium 1 Tablet PO (21:32)
[2021-10-18] MEDS: Cephalexin 500 MG Capsule PO (21:32)
[2021-10-18] MEDS: Nystatin Powder 15gm Bottle 1 APPLIC TOPICAL (21:32)
[2021-10-18 23:55] LABS: Bedside Glucose 162 mg/dL (74-106)
[2021-10-19 05:26] LABS: Absolute Lymphocyte Count 1.45 X10^3/uL (0.83-4.51); Absolute Neutrophil Count 3.9 X10^3/uL (2.0-7.7); Basophil# 0.06 X10^3/uL; Hematocrit 38.4 % (40-54); Hemoglobin 12.6 g/dL (13.0-16.5); Lymphocyte # 1.45 X10^3/ul (0.83-4.51); Lymphocyte % 24.2 % (19-41); Mean Corp Hgb Conc 32.8 g/dL (32-36); Mean Corpuscular Hgb 33.3 pg (27.0-32.0); Mean Corpuscular Volume 101.6 fL (80-94); Mean Platelet Vol. 9.7 fl (6.2-12.0); Monocyte# 0.56 X10^3/uL; Monocyte% 9.3 % (0-10); NRBC Flagged by Analyzer 0 % (0-5); Neutrophil # 3.85 X10^3/uL (2.7-7.7); Neutrophil % 64.3 % (47-70); Platelet Count 228 K/mm3 (150-450); RBC Distribution Width CV 16.1 % (11.6-14.6); RBC Distribution Width SD 59.8 fl (35.1-43.9); Red Blood Count 3.78 M/mm3 (4.6-6.2)
[2021-10-19 06:00] LABS: Anion Gap 7 (5-15); BUN 37 mg/dL (7-18); BUN/Creat Ratio 25.9 RATIO (10-20); Calcium,Total 8.6 mg/dL (8.5-10.1); Chloride 105 mmol/L (98-107); Creatinine, Serum 1.43 mg/dL (0.70-1.30); EST Glomerular Filtration Rate 52 mL/min (>60); Est Glom Filt Rate - Afr Amer 63 mL/min (>60); Estimated Creatinine Clearance 45.84 ml/min; Glucose 143 mg/dL (74-106); Potassium 4.3 mmol/L (3.5-5.1); Sodium Level 139 mmol/L (136-145)
[2021-10-19] MEDS: Acetaminophen 500 MG Tablet 1000 MG PO ×3 (06:00→19:45)
[2021-10-19] MEDS: Polyethylene Glycol 3350 17 GM PACKET PO (06:00)
[2021-10-19] MEDS: Furosemide 40 MG Tablet PO (06:01)
[2021-10-19] MEDS: Senna/Docusate Sodium 1 Tablet PO ×2 (06:01→17:10)
[2021-10-19] MEDS: APIXABAN 5 MG TABLET PO ×2 (06:01→17:09)
[2021-10-19] MEDS: Carvedilol 6.25 MG Tablet PO ×2 (06:01→17:10)
[2021-10-19] MEDS: Clopidogrel Bisulfate 75 MG Tablet PO (06:01)
[2021-10-19] MEDS: Nystatin Powder 15gm Bottle 1 APPLIC TOPICAL ×3 (06:01→21:29)
[2021-10-19] MEDS: Lisinopril 5 MG Tablet PO (06:01)
[2021-10-19] MEDS: Cephalexin 500 MG Capsule PO ×3 (06:01→21:28)
[2021-10-19] MEDS: Venlafaxine XR 75 MG Capsule PO (06:01)
[2021-10-19 06:15] VITALS: BP 103/65; PULSE 87
[2021-10-19 06:30] LABS: Bedside Glucose 139 mg/dL (74-106)
[2021-10-19] MEDS: Potassium Chloride Oral Tablet 20 MEQ PO (07:37)
[2021-10-19] MEDS: Aspirin 81 MG TAB.CHEW PO (07:37)
[2021-10-19] MEDS: Folic Acid 1 MG Tablet PO (07:37)
[2021-10-19] MEDS: Glucerna Shake 120 ML LIQUID PO ×3 (07:43→17:09)
[2021-10-19] MEDS: traMADol 50 MG Tablet PO ×3 (08:28→21:28)
[2021-10-19 11:25] LABS: Bedside Glucose 182 mg/dL (74-106)
--- NOTE | 2021-10-19 13:45 | PCM.PN.RX ---
Progress Note - Pharmacy Subjective: TCU ADMISSION Objective: Allergies morphine Allergy (Verified 10/16/21 14:24) PT UNSURE OF REACTION i was told after surgery that i shouldn't have it rivaroxaban [From Xarelto] Allergy (Verified 10/16/21 14:24) Other Current Medications Generic Name Dose Route Start Last Admin Trade Name Freq PRN Reason Stop Dose Admin Acetaminophen 1,000 mg 10/19/21 07:57 10/19/21 11:58 Acetaminophen 500 Mg Tablet PO 1,000 mg Q6H PRN PRN Administration Pain Score 1-3 Apixaban 5 mg 10/18/21 18:00 10/19/21 06:01 Apixaban 5 Mg Tablet PO 5 mg BID RACHANA Administration Aspirin 81 mg 10/19/21 08:00 10/19/21 07:37 Aspirin 81 Mg Tab.Chew PO 81 mg DAILYCM RACHANA Administration Bisacodyl 10 mg 10/18/21 16:43 Bisacodyl 10 Mg Suppository RC DAILY PRN Constipation Carvedilol 6.25 mg 10/18/21 18:00 10/19/21 06:01 Carvedilol 6.25 Mg Tablet PO 6.25 mg BID RACHANA Administration Cephalexin 500 mg 10/18/21 22:00 10/19/21 13:42 Cephalexin 500 Mg Capsule PO 10/23/21 14:01 500 mg Q8H RACHANA Administration Clopidogrel Bisulfate 75 mg 10/19/21 06:00 10/19/21 06:01 Clopidogrel Bisulfate 75 Mg Tablet PO 75 mg DAILY RACHANA Administration Folic Acid 1 mg 10/19/21 08:00 10/19/21 07:37 Folic Acid 1 Mg Tablet PO 1 mg DAILYCM RACHANA Administration Furosemide 40 mg 10/19/21 06:00 10/19/21 06:01 Furosemide 40 Mg Tablet PO 40 mg DAILY RACHANA Administration Glyburide 10 mg 10/19/21 08:00 10/19/21 07:37 Glyburide 5 Mg Tablet PO 10 mg BREAKFAST RACHANA Administration Sodium Chloride 250 mls @ 15 mls/hr 10/18/21 16:30 IV .[id number] PRN Saline Flush Sodium Chloride 250 mls @ 15 mls/hr 10/18/21 16:30 IV .[id number] PRN Additional IVPB Infusion Lisinopril 5 mg 10/19/21 06:00 10/19/21 06:01 Lisinopril 5 Mg Tablet PO 5 mg DAILY RACHANA Administration Methotrexate 17.5 mg 10/20/21 06:00 Methotrexate 2.5 Mg Tablet PO FR RACHANA Nutritional Formula (Lactose Free) 120 ml 10/18/21 17:45 10/19/21 12:00 Glucerna Shake 120 Ml Liquid PO 120 ml TIDCM RACHANA Administration Nystatin 1 applic 10/18/21 22:00 10/19/21 06:01 Nystatin Powder 15gm Bottle TOPICAL 1 applic TID RACHANA Administration Protocol Polyethylene Glycol 17 gm 10/19/21 06:00 10/19/21 06:00 Polyethylene Glycol 3350 17 Gm Packet PO 17 gm DAILY RACHANA Administration Potassium Chloride 20 meq 10/19/21 08:00 10/19/21 07:37 Potassium Chloride Oral Tablet 20 Meq PO 20 meq DAILYCM RACHANA Administration Senna/Docusate Sodium 1 tablet 10/18/21 20:45 10/19/21 06:01 Senna/Docusate Sodium 1 Tablet PO 1 tablet BID RACHANA Administration Sodium Chloride 10 - 40 ml 10/18/21 16:30 0.9% Saline Lock 10 Ml Syringe IV UD PRN SALINE FLUSH Tramadol HCl 50 mg 10/19/21 07:56 10/19/21 08:28 Tramadol 50 Mg Tablet PO 50 mg Q6H PRN PRN Administration Pain Score 4-10 Tuberculin PPD 0.1 ml 10/26/21 10:00 Tuberculin,Purif.Prot.Deriv. 50 Tu/Ml Vial ID 10/26/21 10:01 X1 ONE Venlafaxine HCl 75 mg 10/19/21 06:00 10/19/21 06:01 Venlafaxine Xr 75 Mg Capsule PO 75 mg DAILY RACHANA Administration Problem List (Last Reviewed 10/18/21 @ 20:[address] Jerrod Medina MD) Hypokalemia (Acute) Erectile dysfunction (Acute) Hypertension (Chronic) Stroke (Acute) Coronary artery disease (Acute) Depression (Acute) Diabetes mellitus (Acute) Peripheral arterial occlusive disease (Acute) Acute kidney injury (Acute) Tinea cruris (Acute) Debility (Acute) Cellulitis of right leg (Acute) Vital Signs Temp Pulse Resp BP Pulse Ox 97.7 F L 87 18 103/65 96 10/18/21 16:28 10/19/21 06:15 10/18/21 16:28 10/19/21 06:15 10/18/21 16:28 Oxygen Delivery Method Room Air Weight: 79.01 kg Body Mass Index (BMI) 26.4 Sodium 139 mmol/L (136-145) 10/19/21 05:13 Potassium 4.3 mmol/L (3.5-5.1) 10/19/21 05:13 Chloride 105 mmol/L (98-107) 10/19/21 05:13 Carbon Dioxide 27.0 mmol/L (21.0-32.0) 10/19/21 05:13 Anion Gap 7 (5-15) 10/19/21 05:13 BUN 37 mg/dL (7-18) H 10/19/21 05:13 Creatinine 1.43 mg/dL (0.70-1.30) H 10/19/21 05:13 Est GFR (MDRD) Af Amer 63 mL/min (>60) 10/19/21 05:13 Est GFR (MDRD) Non-Af 52 mL/min (>60) L 10/19/21 05:13 BUN/Creatinine Ratio 25.9 RATIO (10-20) H 10/19/21 05:13 Glucose 143 mg/dL (74-106) H 10/19/21 05:13 Assessment/Plan: 1. Pain: Tylenol 1000mg PO Q6h PRN Pain 1-3, Tramadol 50mg PO Q6h PRN Pain 4-10. Please continue to monitor for increased/decreased S/S pain, PRN medication usage, renal function, S/S oversedation with tramadol use -- The patient has used 1 dose of both Tylenol and Tramadol in the past 24hrs. 2. CAD: Aspirin 81mg PO Daily, Coreg 6.25mg PO BID, Plavix 75mg PO Daily, Lisinopril 5mg PO Daily, Eliquis 5mg PO BID. Please continue to monitor for S/S bleeding/bruising, H/H, BP (last 103/65), pulse (last 87 BPM), electrolytes, renal function. Per H/P aspirin will be stopped as it provides no additional benefit to this patient and can increase risk of bleeding/bruising. 3. Edema: Lasix 40mg PO Daily. Please continue to monitor electrolytes, I/O, renal function. 4. Hypokalemia: KCl 20mEq PO Daily. Please continue to monitor potassium levels given scheduled Lasix (last K 4.3 on 10/19), S/S GI upset. 5. Type II Diabetes: Glyburide 10mg PO Daily. Please consider obtaining an A1C as the last documented A1c was in November 2020, thank you. 6. Rheumatoid Arthritis: Dpazgphtidfd18.5 mg PO Weekly (on Saturday), Folic acid 1mg PO Daily. Please continue to monitor LFT, CBC (last 10/19/21), SCr, electrolytes. 7. RLE cellulitis: Keflex 500mg PO Q8h. Please continue to monitor for Gi upset, diarrhea, renal function, culture results if applicable. Psychotropic Medications: 8. Depression: Effexor XR 75mg PO Daily. Please see note in H/P regarding GDR recommendation, thank you. Recommendations: 1. Please obtain an A1C as last documented A1c was in November 2020, thank you. 2. Please consider obtaining LFT given methotrexate use. last documented LFT results in [facility] are from November 2020, thank you. Unnecessary Medications: None Bowel Regimen: Miralax 17g PO Daily, Senna/Docusate 1 tab PO BID, Dulcolax 10mg [place] Daily PRN. Please continue to monitor for increased/decreased constipation and/or diarrhea. Date of Note:: 10/19/21
--- NOTE | 2021-10-19 14:33 | CASEMGMT ---
Addendum entered by Gina Daniel 10/20/21 15:24: Spoke with Dr. Medina and since [facility] does not currently have a rounding COOK HOUSE LABORER, he would like the referral sent to [facility]. Referral made to [facility]. Order updated. Original Note: Social Work Met with patient to complete initial assessment. Introduced self and role. Pt wishes to have be primary contact. Discussed code status and MOLST form. Pt confirms full code and no changes to MOLST form on file. Explained Medicare benefit. Encouraged to contact secondary insurance to ensure copay coverage. The goal is for pt to return home with assist. requesting Palliative referral. Referral made via email to [facility]. SW to continue to follow. MAXIM Lopez
[2021-10-19 16:00] VITALS: BP 100/58; PULSE 79; RESP 16; TEMP 37; O2SAT 95
[2021-10-19] MEDS: Tuberculin,Purif.prot.deriv. 50 TU/ML Vial 0.1 ML ID (19:45)
[2021-10-19 21:26] LABS: Bedside Glucose 200 mg/dL (74-106)
--- NOTE | 2021-10-20 02:11 | NURSING ---
Declined assist to bed x3 attempts despite encouragement/education on importance of promoting and maintaining skin integrity. States preference to sleep in chair with BLE elevated, personal items and call light in reach. Prefers urinal. No distress observed or reported.
[2021-10-20] MEDS: traMADol 50 MG Tablet PO ×2 (05:15→13:54)
[2021-10-20] MEDS: Furosemide 40 MG Tablet PO (05:16)
[2021-10-20] MEDS: Venlafaxine XR 75 MG Capsule PO (05:16)
[2021-10-20] MEDS: Polyethylene Glycol 3350 17 GM PACKET PO (05:16)
[2021-10-20] MEDS: Cephalexin 500 MG Capsule PO ×3 (05:16→20:05)
[2021-10-20] MEDS: Lisinopril 5 MG Tablet PO (05:16)
[2021-10-20] MEDS: Carvedilol 6.25 MG Tablet PO ×2 (05:16→16:48)
[2021-10-20] MEDS: Clopidogrel Bisulfate 75 MG Tablet PO (05:16)
[2021-10-20] MEDS: Senna/Docusate Sodium 1 Tablet PO ×2 (05:16→16:48)
[2021-10-20] MEDS: Methotrexate 2.5 MG Tablet 17.5 MG PO (05:17)
[2021-10-20] MEDS: Nystatin Powder 15gm Bottle 1 APPLIC TOPICAL ×3 (05:17→20:05)
[2021-10-20] MEDS: APIXABAN 5 MG TABLET PO ×2 (05:18→16:48)
[2021-10-20 05:30] VITALS: BP 111/78; PULSE 91
--- NOTE | 2021-10-20 05:49 | NURSING ---
Addendum entered by Unruly Cross 10/20/21 06:28: Written communication left for regarding low motivation, c/o chronic pain to BLE and back, poor personal hygiene and much encouragement to complete ADLs, and request if would like palliative consult at this time. Original Note: Poor personal hygiene noted, education provided on importance of hygiene and skin integrity, prefers urinal, soils clothing with urine, refuses depends, redness remains to groin area, area warm and moist, allows SALES SUPPORT COORDINATOR to provide deyanira-care after much encouragement, nystatin powder continues as ordered, declined assist to bed to offload pressure from buttocks despite educations. A&Ox3. No distress observed or reported. Call light in reach.
[2021-10-20 06:21] LABS: Bedside Glucose 209 mg/dL (74-106)
[2021-10-20] MEDS: Folic Acid 1 MG Tablet PO (07:40)
[2021-10-20] MEDS: Potassium Chloride Oral Tablet 20 MEQ PO (07:40)
[2021-10-20] MEDS: Glucerna Shake 120 ML LIQUID PO ×3 (07:40→16:48)
[2021-10-20] MEDS: Aspirin 81 MG TAB.CHEW PO (07:40)
[2021-10-20] MEDS: Menthol/Lanolin/Calamine/Znox 113 GM Tube 1 APPLIC TOPICAL ×2 (07:41→17:38)
[2021-10-20 10:56] LABS: Bedside Glucose 215 mg/dL (74-106)
[2021-10-20] MEDS: Acetaminophen 500 MG Tablet 1000 MG PO (13:55)
[2021-10-20 14:03] VITALS: O2SAT 95
[2021-10-20 14:10] VITALS: BP 101/64; PULSE 80; RESP 20; TEMP 36.7; O2SAT 95
[2021-10-20 16:50] LABS: Bedside Glucose 138 mg/dL (74-106)
[2021-10-20 21:25] LABS: Bedside Glucose 216 mg/dL (74-106)
[2021-10-20 22:22] VITALS: PULSE 874; RESP 16
[2021-10-21] MEDS: Polyethylene Glycol 3350 17 GM PACKET PO (05:50)
[2021-10-21] MEDS: Cephalexin 500 MG Capsule PO ×3 (05:51→21:36)
[2021-10-21] MEDS: Menthol/Lanolin/Calamine/Znox 113 GM Tube 1 APPLIC TOPICAL ×2 (05:51→17:53)
[2021-10-21] MEDS: Venlafaxine XR 75 MG Capsule PO (05:51)
[2021-10-21] MEDS: Senna/Docusate Sodium 1 Tablet PO ×2 (05:51→17:01)
[2021-10-21] MEDS: Clopidogrel Bisulfate 75 MG Tablet PO (05:51)
[2021-10-21] MEDS: APIXABAN 5 MG TABLET PO ×2 (05:51→17:01)
[2021-10-21] MEDS: Furosemide 40 MG Tablet PO (05:51)
[2021-10-21] MEDS: Carvedilol 6.25 MG Tablet PO ×2 (05:51→17:01)
[2021-10-21] MEDS: Lisinopril 5 MG Tablet PO (05:51)
[2021-10-21] MEDS: Nystatin Powder 15gm Bottle 1 APPLIC TOPICAL ×2 (05:52→13:25)
[2021-10-21 06:16] LABS: Bedside Glucose 169 mg/dL (74-106)
[2021-10-21] MEDS: Glucerna Shake 120 ML LIQUID PO ×3 (08:15→17:01)
[2021-10-21] MEDS: Aspirin 81 MG TAB.CHEW PO (08:16)
[2021-10-21] MEDS: Potassium Chloride Oral Tablet 20 MEQ PO (08:16)
[2021-10-21] MEDS: Folic Acid 1 MG Tablet PO (08:18)
[2021-10-21 09:51] VITALS: PULSE 68
[2021-10-21 12:26] LABS: Bedside Glucose 141 mg/dL (74-106)
[2021-10-21 13:34] VITALS: O2SAT 95
[2021-10-21] MEDS: Acetaminophen 500 MG Tablet 1000 MG PO (15:58)
[2021-10-21] MEDS: traMADol 50 MG Tablet PO (15:59)
[2021-10-21 16:00] VITALS: BP 115/48; PULSE 82; RESP 18; TEMP 36.8; O2SAT 97
[2021-10-21 16:51] LABS: Bedside Glucose 165 mg/dL (74-106)
[2021-10-21 21:31] LABS: Bedside Glucose 183 mg/dL (74-106)
[2021-10-22] MEDS: Polyethylene Glycol 3350 17 GM PACKET PO (05:03)
[2021-10-22] MEDS: Cephalexin 500 MG Capsule PO ×3 (05:04→21:42)
[2021-10-22] MEDS: Furosemide 40 MG Tablet PO (05:04)
[2021-10-22] MEDS: Clopidogrel Bisulfate 75 MG Tablet PO (05:04)
[2021-10-22] MEDS: Carvedilol 6.25 MG Tablet PO ×2 (05:04→17:49)
[2021-10-22] MEDS: Venlafaxine XR 75 MG Capsule PO (05:04)
[2021-10-22] MEDS: APIXABAN 5 MG TABLET PO ×2 (05:04→17:49)
[2021-10-22] MEDS: Senna/Docusate Sodium 1 Tablet PO ×2 (05:05→17:49)
[2021-10-22] MEDS: Menthol/Lanolin/Calamine/Znox 113 GM Tube 1 APPLIC TOPICAL ×2 (05:07→17:49)
[2021-10-22] MEDS: Nystatin Powder 15gm Bottle 1 APPLIC TOPICAL ×2 (05:08→12:39)
[2021-10-22 05:10] VITALS: BP 104/71; PULSE 71
[2021-10-22 06:06] LABS: Bedside Glucose 166 mg/dL (74-106)
[2021-10-22 06:41] VITALS: BP 112/75; PULSE 74
[2021-10-22] MEDS: Lisinopril 5 MG Tablet PO (06:42)
[2021-10-22] MEDS: Aspirin 81 MG TAB.CHEW PO (08:29)
[2021-10-22] MEDS: Glucerna Shake 120 ML LIQUID PO ×3 (08:30→17:49)
[2021-10-22] MEDS: Folic Acid 1 MG Tablet PO (08:32)
[2021-10-22] MEDS: Potassium Chloride Oral Tablet 20 MEQ PO (08:32)
[2021-10-22 10:55] LABS: Bedside Glucose 226 mg/dL (74-106)
[2021-10-22 16:00] VITALS: BP 109/66; PULSE 77; RESP 14; TEMP 36.7; O2SAT 97
[2021-10-22 16:16] LABS: Bedside Glucose 141 mg/dL (74-106)
[2021-10-22 21:31] LABS: Bedside Glucose 250 mg/dL (74-106)
[2021-10-22] MEDS: Acetaminophen 500 MG Tablet 1000 MG PO (21:42)
[2021-10-22] MEDS: traMADol 50 MG Tablet PO (21:43)
--- NOTE | 2021-10-23 03:01 | NURSING ---
Pt initially informed this nurse last hs he would allow Nystatin powder to be applied to his groin. Then refused hs care for career placement services counselor. Has been sleeping in his recliner in his clothes that were worn yesterday.
--- NOTE | 2021-10-23 03:08 | PCA ---
asked several times if he was ready to wash up he told hospice team lead at midnight went back at that time and he told hospice team lead he is not washing up tonbob
[2021-10-23] MEDS: Cephalexin 500 MG Capsule PO ×2 (05:26→13:49)
[2021-10-23] MEDS: APIXABAN 5 MG TABLET PO ×2 (05:26→18:14)
[2021-10-23] MEDS: Lisinopril 5 MG Tablet PO (05:26)
[2021-10-23] MEDS: Clopidogrel Bisulfate 75 MG Tablet PO (05:26)
[2021-10-23] MEDS: Venlafaxine XR 75 MG Capsule PO (05:27)
[2021-10-23] MEDS: Senna/Docusate Sodium 1 Tablet PO ×2 (05:27→18:15)
[2021-10-23] MEDS: Polyethylene Glycol 3350 17 GM PACKET PO (05:27)
[2021-10-23] MEDS: Furosemide 40 MG Tablet PO (05:27)
[2021-10-23] MEDS: traMADol 50 MG Tablet PO ×2 (05:33→20:08)
[2021-10-23] MEDS: Acetaminophen 500 MG Tablet 1000 MG PO ×2 (05:33→18:19)
[2021-10-23 05:39] VITALS: BP 104/66; PULSE 74
[2021-10-23 06:21] LABS: Bedside Glucose 179 mg/dL (74-106)
[2021-10-23 07:14] VITALS: O2SAT 98
[2021-10-23] MEDS: Folic Acid 1 MG Tablet PO (08:11)
[2021-10-23] MEDS: Nystatin Powder 15gm Bottle 1 APPLIC TOPICAL ×3 (08:11→20:09)
[2021-10-23] MEDS: Aspirin 81 MG TAB.CHEW PO (08:11)
[2021-10-23] MEDS: Carvedilol 6.25 MG Tablet PO ×2 (08:11→18:15)
[2021-10-23] MEDS: Potassium Chloride Oral Tablet 20 MEQ PO (08:11)
[2021-10-23] MEDS: Menthol/Lanolin/Calamine/Znox 113 GM Tube 1 APPLIC TOPICAL ×2 (08:11→18:15)
[2021-10-23] MEDS: Glucerna Shake 120 ML LIQUID PO ×3 (08:12→18:14)
[2021-10-23 09:29] VITALS: PULSE 78; RESP 18; O2SAT 97
[2021-10-23 11:21] LABS: Bedside Glucose 143 mg/dL (74-106)
[2021-10-23 14:31] VITALS: BP 101/51; PULSE 72; RESP 14; TEMP 36.8
[2021-10-23 16:25] LABS: Bedside Glucose 159 mg/dL (74-106)
[2021-10-23 18:17] VITALS: BP 100/59; PULSE 77
[2021-10-24 01:15] LABS: Bedside Glucose 187 mg/dL (74-106)
[2021-10-24] MEDS: Polyethylene Glycol 3350 17 GM PACKET PO (05:21)
[2021-10-24] MEDS: Lisinopril 5 MG Tablet PO (05:22)
[2021-10-24] MEDS: APIXABAN 5 MG TABLET PO ×2 (05:23→17:25)
[2021-10-24] MEDS: Venlafaxine XR 75 MG Capsule PO ×2 (05:23→17:47)
[2021-10-24] MEDS: Senna/Docusate Sodium 1 Tablet PO ×2 (05:23→17:25)
[2021-10-24] MEDS: Acetaminophen 500 MG Tablet 1000 MG PO (05:23)
[2021-10-24] MEDS: Furosemide 40 MG Tablet PO (05:23)
[2021-10-24] MEDS: Clopidogrel Bisulfate 75 MG Tablet PO (05:23)
[2021-10-24] MEDS: Menthol/Lanolin/Calamine/Znox 113 GM Tube 1 APPLIC TOPICAL ×2 (05:25→17:26)
[2021-10-24] MEDS: Nystatin Powder 15gm Bottle 1 APPLIC TOPICAL ×3 (05:25→21:47)
[2021-10-24 05:28] VITALS: BP 114/71; PULSE 76
[2021-10-24 06:38] VITALS: O2SAT 98
[2021-10-24 06:51] LABS: Bedside Glucose 164 mg/dL (74-106)
[2021-10-24] MEDS: Potassium Chloride Oral Tablet 20 MEQ PO (08:14)
[2021-10-24] MEDS: Carvedilol 6.25 MG Tablet PO ×2 (08:14→17:26)
[2021-10-24] MEDS: Glucerna Shake 120 ML LIQUID PO ×3 (08:14→17:24)
[2021-10-24] MEDS: Folic Acid 1 MG Tablet PO (08:14)
[2021-10-24] MEDS: Aspirin 81 MG TAB.CHEW PO (08:14)
[2021-10-24] MEDS: traMADol 50 MG Tablet PO ×3 (08:21→21:53)
[2021-10-24] MEDS: Meclizine HCl 25 MG Tablet PO ×2 (08:22→15:44)
[2021-10-24 10:41] LABS: Bedside Glucose 234 mg/dL (74-106)
[2021-10-24 14:31] VITALS: BP 132/86; PULSE 76; RESP 16; TEMP 36.3; O2SAT 99
[2021-10-24 15:41] LABS: Bedside Glucose 171 mg/dL (74-106)
[2021-10-24 21:35] LABS: Bedside Glucose 218 mg/dL (74-106)
[2021-10-25] MEDS: APIXABAN 5 MG TABLET PO ×2 (05:51→17:32)
[2021-10-25] MEDS: Polyethylene Glycol 3350 17 GM PACKET PO (05:51)
[2021-10-25] MEDS: Lisinopril 5 MG Tablet PO (05:51)
[2021-10-25] MEDS: Furosemide 40 MG Tablet PO (05:52)
[2021-10-25] MEDS: Clopidogrel Bisulfate 75 MG Tablet PO (05:52)
[2021-10-25] MEDS: Venlafaxine XR 75 MG Capsule PO ×2 (05:52→17:31)
[2021-10-25] MEDS: Nystatin Powder 15gm Bottle 1 APPLIC TOPICAL ×3 (05:52→20:54)
[2021-10-25] MEDS: Senna/Docusate Sodium 1 Tablet PO ×2 (05:52→17:31)
[2021-10-25] MEDS: Menthol/Lanolin/Calamine/Znox 113 GM Tube 1 APPLIC TOPICAL ×2 (05:52→20:54)
[2021-10-25 06:21] LABS: Bedside Glucose 168 mg/dL (74-106)
[2021-10-25 08:39] VITALS: BP 115/57; PULSE 79
[2021-10-25] MEDS: Glucerna Shake 120 ML LIQUID PO ×2 (08:44→13:04)
[2021-10-25] MEDS: Aspirin 81 MG TAB.CHEW PO (08:44)
[2021-10-25] MEDS: Folic Acid 1 MG Tablet PO (08:44)
[2021-10-25] MEDS: Potassium Chloride Oral Tablet 20 MEQ PO (08:44)
[2021-10-25] MEDS: Carvedilol 6.25 MG Tablet PO ×2 (08:44→17:31)
--- NOTE | 2021-10-25 09:30 | NURSING ---
Communications Consultant Note: MDS Section F completed through resident interview.
[2021-10-25 10:55] LABS: Bedside Glucose 156 mg/dL (74-106)
[2021-10-25] MEDS: traMADol 50 MG Tablet PO ×2 (12:36→20:50)
--- NOTE | 2021-10-25 14:00 | CASEMGMT ---
Addendum entered by Gina Daniel 10/25/21 16:51: BIMS and PHQ-9 complete for MDS assessment. Pt very depressed. Discussed how SW can assist in improvement, activities. Offered change in medication, encouraged counseling. Pt stated he has felt like this for years; feels hopeless, and is not in agreement for counseling, etc. Pt explained he used Valium at home to assist with sleep. Pt agreed for SW to leave communication to Dr. Medina. Discussed refusals for care/showering and pt's preferences. Pt prefers/agreeable to getting a shower approx. every other day around 1300. SW communicated to staff. SW offered ongoing assistance during stay. Original Note: Social Work IDT met with patient and for care plan meeting. Discussed patient's progress in PT/OT and nursing. Explained Medicare benefit. Encouraged to contact secondary insurance to ensure copay coverage. The goal is for pt to return home with assistance. However, is recovering from rotator cuff tear. will determine closer to DC if he can assist with what he needs. SW to order continued therapy and DME needs at [place]. Provide support as needed for depression/anxiety. Further clarification was provide on using [facility] for pt during stay, and will need transferred to [facility] for care given during pt's stay. Dr Medina aware. Referred to [facility]. SW to continue to follow. Gina Daniel ,MACHINES TECHNICIAN WALLPAPERER HELPER
[2021-10-25 15:55] VITALS: BP 104/55; PULSE 75; RESP 14; TEMP 36.8; O2SAT 98
[2021-10-25 16:05] LABS: Bedside Glucose 196 mg/dL (74-106)
--- NOTE | 2021-10-25 21:30 | PCA ---
This CHEMISTRY INTERN entered patient room and asked patient if they wanted to get ready for bed. Patient responded with Im sleeping in my chair CHEMISTRY INTERN rephrased question asking if patient wanted to wash up and get changed for the night. Patient again responded, this time with raised voice I said Im sleeping in my chair. i don't want bothered. RN notified
[2021-10-25 21:36] LABS: Bedside Glucose 160 mg/dL (74-106)
[2021-10-26] MEDS: traMADol 50 MG Tablet PO ×2 (05:29→15:12)
[2021-10-26] MEDS: Senna/Docusate Sodium 1 Tablet PO ×2 (05:29→17:10)
[2021-10-26 05:30] VITALS: BP 188/55; PULSE 76
[2021-10-26] MEDS: APIXABAN 5 MG TABLET PO ×2 (05:30→17:10)
[2021-10-26] MEDS: Venlafaxine XR 75 MG Capsule PO ×2 (05:30→17:11)
[2021-10-26] MEDS: Furosemide 40 MG Tablet PO (05:30)
[2021-10-26] MEDS: Clopidogrel Bisulfate 75 MG Tablet PO (05:30)
[2021-10-26] MEDS: Lisinopril 5 MG Tablet PO (05:30)
[2021-10-26 05:47] LABS: Absolute Lymphocyte Count 1.65 X10^3/uL (0.83-4.51); Absolute Neutrophil Count 4.9 X10^3/uL (2.0-7.7); Basophil# 0.07 X10^3/uL; Basophil% 0.9 % (0-1); Eosinophil# 0.26 X10^3/uL; Eosinophils% 3.3 % (0-5); Hematocrit 40.5 % (40-54); Lymphocyte # 1.65 X10^3/ul (0.83-4.51); Lymphocyte % 21.2 % (19-41); Mean Corp Hgb Conc 32.1 g/dL (32-36); Mean Corpuscular Volume 102.8 fL (80-94); Mean Platelet Vol. 10.1 fl (6.2-12.0); Monocyte# 0.84 X10^3/uL; Monocyte% 10.8 % (0-10); NRBC Flagged by Analyzer 0 % (0-5); Platelet Count 226 K/mm3 (150-450); RBC Distribution Width SD 60.7 fl (35.1-43.9); Red Blood Count 3.94 M/mm3 (4.6-6.2); White Blood Count 7.8 K/mm3 (4.4-11.0)
[2021-10-26 06:18] LABS: Anion Gap 6 (5-15); BUN 40 mg/dL (7-18); BUN/Creat Ratio 26.7 RATIO (10-20); Calcium,Total 9.1 mg/dL (8.5-10.1); Chloride 107 mmol/L (98-107); EST Glomerular Filtration Rate 49 mL/min (>60); Est Glom Filt Rate - Afr Amer 59 mL/min (>60); Glucose 158 mg/dL (74-106); Sodium Level 139 mmol/L (136-145)
[2021-10-26 07:16] LABS: Bedside Glucose 143 mg/dL (74-106)
[2021-10-26] MEDS: Aspirin 81 MG TAB.CHEW PO (08:06)
[2021-10-26] MEDS: Potassium Chloride Oral Tablet 20 MEQ PO (08:06)
[2021-10-26] MEDS: Carvedilol 6.25 MG Tablet PO ×2 (08:07→17:11)
[2021-10-26] MEDS: Folic Acid 1 MG Tablet PO (08:07)
[2021-10-26] MEDS: Tuberculin,Purif.prot.deriv. 50 TU/ML Vial 0.1 ML ID (10:54)
[2021-10-26 11:26] LABS: Bedside Glucose 143 mg/dL (74-106)
[2021-10-26] MEDS: Nystatin Powder 15gm Bottle 1 APPLIC TOPICAL ×2 (14:12→20:19)
[2021-10-26 16:14] VITALS: BP 99/65; PULSE 77; RESP 17; TEMP 36.6; O2SAT 94
[2021-10-26 16:30] LABS: Bedside Glucose 139 mg/dL (74-106)
[2021-10-26] MEDS: Menthol/Lanolin/Calamine/Znox 113 GM Tube 1 APPLIC TOPICAL (17:09)
[2021-10-26] MEDS: Acetaminophen 500 MG Tablet 1000 MG PO (20:18)
[2021-10-26 20:22] VITALS: PULSE 77; RESP 16; O2SAT 99
[2021-10-26 21:30] LABS: Bedside Glucose 162 mg/dL (74-106)
[2021-10-27] MEDS: Methotrexate 2.5 MG Tablet 17.5 MG PO (06:14)
[2021-10-27 06:25] LABS: Bedside Glucose 137 mg/dL (74-106)
[2021-10-27] MEDS: Venlafaxine XR 75 MG Capsule PO ×2 (07:04→17:07)
[2021-10-27] MEDS: Lisinopril 5 MG Tablet PO (07:04)
[2021-10-27] MEDS: APIXABAN 5 MG TABLET PO ×2 (07:04→17:08)
[2021-10-27] MEDS: traMADol 50 MG Tablet PO ×2 (07:05→22:52)
[2021-10-27] MEDS: Menthol/Lanolin/Calamine/Znox 113 GM Tube 1 APPLIC TOPICAL ×2 (07:05→17:12)
[2021-10-27] MEDS: Furosemide 40 MG Tablet PO (07:05)
[2021-10-27] MEDS: Clopidogrel Bisulfate 75 MG Tablet PO (07:05)
[2021-10-27] MEDS: Nystatin Powder 15gm Bottle 1 APPLIC TOPICAL ×3 (07:06→22:53)
[2021-10-27] MEDS: Carvedilol 6.25 MG Tablet PO ×2 (07:59→17:07)
[2021-10-27] MEDS: Folic Acid 1 MG Tablet PO (07:59)
[2021-10-27] MEDS: Aspirin 81 MG TAB.CHEW PO (07:59)
[2021-10-27] MEDS: Potassium Chloride Oral Tablet 20 MEQ PO (08:00)
[2021-10-27] MEDS: Meclizine HCl 25 MG Tablet PO (09:22)
[2021-10-27] MEDS: Acetaminophen 500 MG Tablet 1000 MG PO (09:26)
[2021-10-27 10:41] LABS: Bedside Glucose 168 mg/dL (74-106)
[2021-10-27 16:00] VITALS: BP 112/65; PULSE 74; RESP 16; TEMP 36.5; O2SAT 97
[2021-10-27] MEDS: Ipratropium Bromide 0.06% NASAL SPRAY 2 SPRAY NASAL (22:52)
[2021-10-28] MEDS: Ipratropium Bromide 0.06% NASAL SPRAY 2 SPRAY NASAL ×3 (06:45→22:05)
[2021-10-28] MEDS: Polyethylene Glycol 3350 17 GM PACKET PO (06:46)
[2021-10-28] MEDS: APIXABAN 5 MG TABLET PO ×2 (06:47→17:52)
[2021-10-28] MEDS: Senna/Docusate Sodium 1 Tablet PO ×2 (06:47→17:52)
[2021-10-28] MEDS: Lisinopril 5 MG Tablet PO (06:47)
[2021-10-28] MEDS: Furosemide 40 MG Tablet PO (06:47)
[2021-10-28] MEDS: Clopidogrel Bisulfate 75 MG Tablet PO (06:47)
[2021-10-28] MEDS: Venlafaxine XR 75 MG Capsule PO ×2 (06:47→17:52)
[2021-10-28] MEDS: Nystatin Powder 15gm Bottle 1 APPLIC TOPICAL ×3 (06:52→22:05)
[2021-10-28] MEDS: Menthol/Lanolin/Calamine/Znox 113 GM Tube 1 APPLIC TOPICAL ×2 (06:52→16:23)
[2021-10-28] MEDS: Potassium Chloride Oral Tablet 20 MEQ PO (07:51)
[2021-10-28] MEDS: Aspirin 81 MG TAB.CHEW PO (07:51)
[2021-10-28] MEDS: Folic Acid 1 MG Tablet PO (07:51)
[2021-10-28] MEDS: Carvedilol 6.25 MG Tablet PO ×2 (07:51→16:23)
[2021-10-28 11:11] LABS: Bedside Glucose 137 mg/dL (74-106)
[2021-10-28 15:24] VITALS: BP 91/56; PULSE 76; RESP 14; TEMP 36.6; O2SAT 97
[2021-10-28] MEDS: traMADol 50 MG Tablet PO (22:11)
[2021-10-28] MEDS: Acetaminophen 500 MG Tablet 1000 MG PO (22:11)
--- NOTE | 2021-10-29 05:25 | PCA ---
CIVIL ENGINEERING DRAFTER approached patient at the beginning of the shift asking if they wanted help getting washed up for bed and to help with ADLs. Patient stated that they had already been washed up earlier and did not wish to do anything else. This CIVIL ENGINEERING DRAFTER went to check on patient at 5:30 am and offered to help them walk into the bathroom, and patient refused to get up.
[2021-10-29] MEDS: Menthol/Lanolin/Calamine/Znox 113 GM Tube 1 APPLIC TOPICAL ×2 (06:47→17:09)
[2021-10-29] MEDS: Nystatin Powder 15gm Bottle 1 APPLIC TOPICAL ×3 (06:47→21:57)
[2021-10-29] MEDS: Polyethylene Glycol 3350 17 GM PACKET PO (06:47)
[2021-10-29] MEDS: Lisinopril 5 MG Tablet PO (06:48)
[2021-10-29] MEDS: APIXABAN 5 MG TABLET PO ×2 (06:48→17:08)
[2021-10-29] MEDS: Furosemide 40 MG Tablet PO (06:48)
[2021-10-29] MEDS: Clopidogrel Bisulfate 75 MG Tablet PO (06:48)
[2021-10-29] MEDS: Senna/Docusate Sodium 1 Tablet PO (06:48)
[2021-10-29] MEDS: Venlafaxine XR 75 MG Capsule PO ×2 (06:48→17:08)
[2021-10-29] MEDS: Acetaminophen 500 MG Tablet 1000 MG PO ×2 (06:49→21:55)
[2021-10-29] MEDS: traMADol 50 MG Tablet PO ×2 (06:49→21:55)
[2021-10-29] MEDS: Ipratropium Bromide 0.06% NASAL SPRAY 2 SPRAY NASAL ×3 (06:50→21:55)
[2021-10-29 06:56] LABS: Bedside Glucose 121 mg/dL (74-106)
[2021-10-29] MEDS: Carvedilol 6.25 MG Tablet PO ×2 (07:55→17:08)
[2021-10-29] MEDS: Folic Acid 1 MG Tablet PO (07:55)
[2021-10-29] MEDS: Aspirin 81 MG TAB.CHEW PO (07:55)
[2021-10-29] MEDS: Potassium Chloride Oral Tablet 20 MEQ PO (07:55)
[2021-10-29 15:19] VITALS: BP 102/65; PULSE 89; RESP 14; TEMP 36.8; O2SAT 98
--- NOTE | 2021-10-29 18:43 | PCA ---
This LONG TERM ACUTE CARE REGISTERED NURSE answered patient bathroom light and offered to help patient get washed for bed LONG TERM ACUTE CARE REGISTERED NURSE asked patient if they wanted to change into a gown patient replied with i want to sleep in my own underwear LONG TERM ACUTE CARE REGISTERED NURSE explained the reason for wearing hospital brief since patient is incontinent. patient got upset and refused to wear a brief. LONG TERM ACUTE CARE REGISTERED NURSE helped patient put on own underwear. When asked again if they wanted to wear a gown of put on a clean shirt they said with raised voice neither, i dont want to wear anything
[2021-10-30] MEDS: APIXABAN 5 MG TABLET PO ×2 (05:28→17:50)
[2021-10-30] MEDS: Acetaminophen 500 MG Tablet 1000 MG PO (05:28)
[2021-10-30] MEDS: Ipratropium Bromide 0.06% NASAL SPRAY 2 SPRAY NASAL ×3 (05:29→21:52)
[2021-10-30] MEDS: Lisinopril 5 MG Tablet PO (05:29)
[2021-10-30] MEDS: Venlafaxine XR 75 MG Capsule PO ×2 (05:29→17:51)
[2021-10-30] MEDS: Furosemide 40 MG Tablet PO (05:29)
[2021-10-30] MEDS: Clopidogrel Bisulfate 75 MG Tablet PO (05:29)
[2021-10-30] MEDS: Menthol/Lanolin/Calamine/Znox 113 GM Tube 1 APPLIC TOPICAL ×2 (05:31→17:49)
[2021-10-30] MEDS: Nystatin Powder 15gm Bottle 1 APPLIC TOPICAL ×3 (05:32→21:53)
[2021-10-30 05:33] VITALS: BP 106/68; PULSE 75
[2021-10-30 06:15] LABS: Bedside Glucose 103 mg/dL (74-106)
[2021-10-30] MEDS: Folic Acid 1 MG Tablet PO (09:19)
[2021-10-30] MEDS: Carvedilol 6.25 MG Tablet PO ×2 (09:19→17:50)
[2021-10-30] MEDS: Potassium Chloride Oral Tablet 20 MEQ PO (09:20)
[2021-10-30] MEDS: Aspirin 81 MG TAB.CHEW PO (09:20)
--- NOTE | 2021-10-30 09:57 | MDS.RN ---
Information for the mds was obtained from review of the clinical record, interview of resident, staff, and direct observation of resident's care.
--- NOTE | 2021-10-30 14:42 | CASEMGMT ---
Social Work Spoke with Jennie at [facility] to follow up on palliative visit. Jennie stated they will have a liaison scheduled to visit pt his week and notify SW of appt. MAXIM LopezW
[2021-10-30 16:00] VITALS: BP 111/70; PULSE 71; RESP 16; TEMP 36.6; O2SAT 97
[2021-10-30] MEDS: Senna/Docusate Sodium 1 Tablet PO (17:51)
[2021-10-31] MEDS: Ipratropium Bromide 0.06% NASAL SPRAY 2 SPRAY NASAL ×3 (05:39→21:05)
[2021-10-31] MEDS: Menthol/Lanolin/Calamine/Znox 113 GM Tube 1 APPLIC TOPICAL ×2 (05:39→17:14)
[2021-10-31] MEDS: Senna/Docusate Sodium 1 Tablet PO (05:40)
[2021-10-31] MEDS: Polyethylene Glycol 3350 17 GM PACKET PO (05:40)
[2021-10-31] MEDS: APIXABAN 5 MG TABLET PO ×2 (05:40→17:14)
[2021-10-31] MEDS: Furosemide 40 MG Tablet PO (05:40)
[2021-10-31] MEDS: Venlafaxine XR 75 MG Capsule PO ×2 (05:40→17:14)
[2021-10-31] MEDS: Clopidogrel Bisulfate 75 MG Tablet PO (05:40)
[2021-10-31] MEDS: Lisinopril 5 MG Tablet PO (05:41)
[2021-10-31] MEDS: Nystatin Powder 15gm Bottle 1 APPLIC TOPICAL ×3 (05:41→21:06)
[2021-10-31 06:26] LABS: Bedside Glucose 136 mg/dL (74-106)
[2021-10-31] MEDS: Carvedilol 6.25 MG Tablet PO ×2 (08:14→17:13)
[2021-10-31] MEDS: Aspirin 81 MG TAB.CHEW PO (08:14)
[2021-10-31] MEDS: Folic Acid 1 MG Tablet PO (08:15)
[2021-10-31] MEDS: Potassium Chloride Oral Tablet 20 MEQ PO (08:15)
[2021-10-31 10:00] VITALS: PULSE 78
[2021-10-31 10:08] VITALS: BP 103/55; PULSE 78; RESP 18; TEMP 36.9; O2SAT 94
[2021-10-31] MEDS: Acetaminophen 500 MG Tablet 1000 MG PO (11:29)
[2021-10-31 16:00] VITALS: BP 106/62; PULSE 77; RESP 16; TEMP 36.7; O2SAT 97
[2021-10-31] MEDS: traMADol 50 MG Tablet PO (21:03)
--- NOTE | 2021-10-31 22:01 | PCA ---
EMERGENCY DETAIL DRIVER offered to help patient with HS care. Patient refused and stated that did not want anything done tonight and did not wish to be bothered with all all. RN notified
[2021-11-01 05:09] VITALS: BP 103/65; PULSE 78
[2021-11-01] MEDS: Nystatin Powder 15gm Bottle 1 APPLIC TOPICAL ×3 (05:09→19:50)
[2021-11-01] MEDS: Menthol/Lanolin/Calamine/Znox 113 GM Tube 1 APPLIC TOPICAL ×2 (05:09→17:10)
[2021-11-01] MEDS: Venlafaxine XR 75 MG Capsule PO ×2 (05:10→17:09)
[2021-11-01] MEDS: Furosemide 40 MG Tablet PO (05:10)
[2021-11-01] MEDS: Lisinopril 5 MG Tablet PO (05:10)
[2021-11-01] MEDS: Senna/Docusate Sodium 1 Tablet PO ×2 (05:10→17:09)
[2021-11-01] MEDS: Ipratropium Bromide 0.06% NASAL SPRAY 2 SPRAY NASAL ×3 (05:10→19:50)
[2021-11-01] MEDS: Clopidogrel Bisulfate 75 MG Tablet PO (05:10)
[2021-11-01] MEDS: APIXABAN 5 MG TABLET PO ×2 (05:10→17:09)
[2021-11-01 06:21] LABS: Bedside Glucose 119 mg/dL (74-106)
[2021-11-01] MEDS: Carvedilol 6.25 MG Tablet PO ×2 (07:36→17:09)
[2021-11-01] MEDS: Potassium Chloride Oral Tablet 20 MEQ PO (07:36)
[2021-11-01] MEDS: Aspirin 81 MG TAB.CHEW PO (07:36)
[2021-11-01] MEDS: Folic Acid 1 MG Tablet PO (07:36)
[2021-11-01 08:29] VITALS: RESP 16; O2SAT 96
[2021-11-01] MEDS: traMADol 50 MG Tablet PO ×2 (10:41→17:13)
[2021-11-01] MEDS: Acetaminophen 500 MG Tablet 1000 MG PO (12:16)
[2021-11-01 16:00] VITALS: BP 124/55; PULSE 77; RESP 16; TEMP 36.3; O2SAT 93
--- NOTE | 2021-11-01 16:30 | CASEMGMT ---
Social Work Left message with to follow up on discharge planning. Gina Daniel, BALER OPERATOR SIZING MACHINE OPERATOR
[2021-11-02] MEDS: Ipratropium Bromide 0.06% NASAL SPRAY 2 SPRAY NASAL ×3 (04:42→20:25)
[2021-11-02] MEDS: Senna/Docusate Sodium 1 Tablet PO (04:42)
[2021-11-02] MEDS: Clopidogrel Bisulfate 75 MG Tablet PO (04:42)
[2021-11-02] MEDS: Furosemide 40 MG Tablet PO (04:43)
[2021-11-02] MEDS: Venlafaxine XR 75 MG Capsule PO ×2 (04:43→16:39)
[2021-11-02] MEDS: Lisinopril 5 MG Tablet PO (04:43)
[2021-11-02] MEDS: APIXABAN 5 MG TABLET PO ×2 (04:43→16:39)
[2021-11-02] MEDS: Nystatin Powder 15gm Bottle 1 APPLIC TOPICAL ×3 (04:43→20:26)
[2021-11-02] MEDS: Menthol/Lanolin/Calamine/Znox 113 GM Tube 1 APPLIC TOPICAL ×2 (04:48→16:39)
[2021-11-02 05:46] LABS: Absolute Lymphocyte Count 1.24 X10^3/uL (0.83-4.51); Absolute Neutrophil Count 3.9 X10^3/uL (2.0-7.7); Basophil# 0.07 X10^3/uL; Basophil% 1.2 % (0-1); Eosinophil# 0.04 X10^3/uL; Eosinophils% 0.7 % (0-5); Hemoglobin 12.6 g/dL (13.0-16.5); Lymphocyte # 1.24 X10^3/ul (0.83-4.51); Lymphocyte % 21.1 % (19-41); Mean Corp Hgb Conc 32.3 g/dL (32-36); Mean Corpuscular Hgb 33.1 pg (27.0-32.0); Mean Corpuscular Volume 102.4 fL (80-94); Mean Platelet Vol. 9.9 fl (6.2-12.0); Monocyte# 0.59 X10^3/uL; NRBC Flagged by Analyzer 0 % (0-5); Neutrophil % 66.3 % (47-70); Platelet Count 187 K/mm3 (150-450); RBC Distribution Width CV 16.3 % (11.6-14.6); RBC Distribution Width SD 61.1 fl (35.1-43.9); Red Blood Count 3.81 M/mm3 (4.6-6.2); White Blood Count 5.9 K/mm3 (4.4-11.0)
[2021-11-02 06:22] LABS: Anion Gap 6 (5-15); BUN 32 mg/dL (7-18); BUN/Creat Ratio 24.6 RATIO (10-20); Chloride 108 mmol/L (98-107); EST Glomerular Filtration Rate 58 mL/min (>60); Est Glom Filt Rate - Afr Amer 70 mL/min (>60); Estimated Creatinine Clearance 50.42 ml/min; Glucose 128 mg/dL (74-106); Potassium 4.8 mmol/L (3.5-5.1); Sodium Level 139 mmol/L (136-145)
[2021-11-02 06:26] LABS: Bedside Glucose 126 mg/dL (74-106)
[2021-11-02] MEDS: Carvedilol 6.25 MG Tablet PO ×2 (07:32→16:39)
[2021-11-02] MEDS: Aspirin 81 MG TAB.CHEW PO (07:32)
[2021-11-02] MEDS: Folic Acid 1 MG Tablet PO (07:32)
[2021-11-02] MEDS: Potassium Chloride Oral Tablet 20 MEQ PO (07:32)
[2021-11-02 12:32] VITALS: PULSE 75; RESP 16; O2SAT 96
[2021-11-02 15:03] VITALS: BP 115/62; PULSE 75; RESP 16; TEMP 36.9; O2SAT 94
[2021-11-02] MEDS: Loperamide 2 MG Capsule PO (18:32)
[2021-11-02] MEDS: traMADol 50 MG Tablet PO (20:22)
[2021-11-02] MEDS: Acetaminophen 500 MG Tablet 1000 MG PO (22:55)
[2021-11-03] MEDS: Methotrexate 2.5 MG Tablet 17.5 MG PO (06:08)
[2021-11-03] MEDS: Ipratropium Bromide 0.06% NASAL SPRAY 2 SPRAY NASAL ×3 (06:10→20:53)
[2021-11-03 06:36] LABS: Bedside Glucose 127 mg/dL (74-106)
[2021-11-03 06:51] VITALS: BP 116/68; PULSE 77
[2021-11-03] MEDS: Venlafaxine XR 75 MG Capsule PO ×2 (06:52→16:25)
[2021-11-03] MEDS: APIXABAN 5 MG TABLET PO ×2 (06:52→16:25)
[2021-11-03] MEDS: Lisinopril 5 MG Tablet PO (06:53)
[2021-11-03] MEDS: Clopidogrel Bisulfate 75 MG Tablet PO (06:53)
[2021-11-03] MEDS: Folic Acid 1 MG Tablet PO (08:23)
[2021-11-03] MEDS: Potassium Chloride Oral Tablet 20 MEQ PO (08:23)
[2021-11-03] MEDS: Aspirin 81 MG TAB.CHEW PO (08:23)
[2021-11-03] MEDS: Carvedilol 6.25 MG Tablet PO ×2 (08:23→16:25)
[2021-11-03 08:25] VITALS: BP 124/67; PULSE 91
--- NOTE | 2021-11-03 09:32 | CASEMGMT ---
Social Work Spoke with pt's about planning for DC. concerned that she will not be able to physically care for pt at home due to her physical limitations, plus works different shifts each week. SW suggested complete therapy training. agreed and is off work Saturday - Spoke with pt and ROBOTICS SPECIALIST - training scheduled for 11 am 11/06. Discussed financial liability for SNF placement. Pt unable to pay privately, but concerned about not having pt's income for her to continue living in their home. Explained spousal allowance. Encouraged to apply for [facility]AW to determine eligibility. agreed. Left SHAW yesenia and SNF list with quality and resource data in pt's room. appreciative. SW to continue to follow. MAXIM LopezW
[2021-11-03] MEDS: Nystatin Powder 15gm Bottle 1 APPLIC TOPICAL ×2 (13:19→20:55)
[2021-11-03 16:00] VITALS: BP 112/55; PULSE 64; RESP 16; TEMP 36.5; O2SAT 97
[2021-11-03] MEDS: traMADol 50 MG Tablet PO ×2 (16:27→22:50)
--- NOTE | 2021-11-03 17:39 | NURSING ---
NOTIFIED R' OF POSITIVE COVID STAFF MEMBER/RESIDENT. TRIED TO CALL , BONITA. NO ANSWER.
[2021-11-03] MEDS: Acetaminophen 500 MG Tablet 1000 MG PO (20:54)
[2021-11-03 21:00] VITALS: PULSE 61; RESP 18; O2SAT 95
[2021-11-04 06:26] LABS: Bedside Glucose 156 mg/dL (74-106)
[2021-11-04 06:28] VITALS: BP 112/69; PULSE 79
[2021-11-04] MEDS: Venlafaxine XR 75 MG Capsule PO ×2 (06:29→17:38)
[2021-11-04] MEDS: APIXABAN 5 MG TABLET PO ×2 (06:29→17:38)
[2021-11-04] MEDS: Clopidogrel Bisulfate 75 MG Tablet PO (06:29)
[2021-11-04] MEDS: Nystatin Powder 15gm Bottle 1 APPLIC TOPICAL ×3 (06:30→21:00)
[2021-11-04] MEDS: Lisinopril 5 MG Tablet PO (06:30)
[2021-11-04] MEDS: Menthol/Lanolin/Calamine/Znox 113 GM Tube 1 APPLIC TOPICAL ×2 (06:30→17:38)
[2021-11-04] MEDS: Ipratropium Bromide 0.06% NASAL SPRAY 2 SPRAY NASAL ×3 (06:30→20:59)
[2021-11-04] MEDS: Aspirin 81 MG TAB.CHEW PO (07:48)
[2021-11-04] MEDS: Potassium Chloride Oral Tablet 20 MEQ PO (07:48)
[2021-11-04] MEDS: Folic Acid 1 MG Tablet PO (07:48)
[2021-11-04] MEDS: Carvedilol 6.25 MG Tablet PO ×2 (07:49→17:38)
[2021-11-04] MEDS: Meclizine HCl 25 MG Tablet PO ×2 (10:11→17:43)
[2021-11-04 15:42] VITALS: BP 127/72; PULSE 82; RESP 16; TEMP 36.6; O2SAT 99
[2021-11-04 20:05] VITALS: O2SAT 96
[2021-11-04] MEDS: Acetaminophen 500 MG Tablet 1000 MG PO (20:05)
[2021-11-04] MEDS: traMADol 50 MG Tablet PO (21:00)
[2021-11-05] MEDS: Venlafaxine XR 75 MG Capsule PO ×2 (05:46→17:21)
[2021-11-05] MEDS: APIXABAN 5 MG TABLET PO ×2 (05:46→17:21)
[2021-11-05] MEDS: Clopidogrel Bisulfate 75 MG Tablet PO (05:46)
[2021-11-05] MEDS: Ipratropium Bromide 0.06% NASAL SPRAY 2 SPRAY NASAL ×3 (05:46→21:43)
[2021-11-05] MEDS: Acetaminophen 500 MG Tablet 1000 MG PO ×2 (05:46→21:42)
[2021-11-05] MEDS: Lisinopril 5 MG Tablet PO (05:46)
[2021-11-05] MEDS: Nystatin Powder 15gm Bottle 1 APPLIC TOPICAL ×2 (05:48→13:02)
[2021-11-05] MEDS: Menthol/Lanolin/Calamine/Znox 113 GM Tube 1 APPLIC TOPICAL ×2 (05:48→17:20)
[2021-11-05 05:49] VITALS: BP 106/63; PULSE 75
[2021-11-05 06:41] LABS: Bedside Glucose 152 mg/dL (74-106)
[2021-11-05] MEDS: Potassium Chloride Oral Tablet 20 MEQ PO (07:34)
[2021-11-05] MEDS: Folic Acid 1 MG Tablet PO (07:34)
[2021-11-05] MEDS: Carvedilol 6.25 MG Tablet PO ×2 (07:34→17:20)
[2021-11-05] MEDS: Aspirin 81 MG TAB.CHEW PO (07:35)
--- NOTE | 2021-11-05 12:07 | NURSING ---
it was reported by night custodian that pt c/o RT lower leg/ankle pain, Rin, night custodian RN observed redness/scabing to lateral ankle. dr gallo notified, new order to start keflex and doxy x7 days.
[2021-11-05] MEDS: Doxycycline 100 MG CAPSULE PO ×2 (12:59→21:43)
[2021-11-05] MEDS: Cephalexin 500 MG Capsule PO ×2 (12:59→21:44)
[2021-11-05 14:45] VITALS: BP 105/51; PULSE 72; RESP 12; TEMP 36.8; O2SAT 97
[2021-11-05] MEDS: traMADol 50 MG Tablet PO (21:43)
--- NOTE | 2021-11-05 21:50 | NURSING ---
Medicated w/ Tylenol and Tramadol for right leg pain. Socks, shoes, and left AFO removed, Pt applied night time brace to LLE. Pt then elects to go to bed. Informed pt he will have to don shoes or slippers socks to transfer. Pt then declines to transfer to bed stating, I'll just stay here. BLE elevated in recliner and w/ a pillow. Instructed on the importance of elevating BLE when resting to promote circulation and improve pain. Yeast noted to groin, abdominal fold, and a red line along rt lower abdomen. Noted residue from powder to groin and affected area is malodorous. Refuses pericare and Nystatin powder. Educated on the importance of appropriate hygiene practices and application of Nystatin powder to prevent worsening yeast infection. Call light, urinal, and water within reach. Further education needed. Will continue to monitor.
[2021-11-06] MEDS: traMADol 50 MG Tablet PO (06:10)
[2021-11-06] MEDS: Acetaminophen 500 MG Tablet 1000 MG PO (06:10)
[2021-11-06] MEDS: Lisinopril 5 MG Tablet PO (06:10)
[2021-11-06] MEDS: APIXABAN 5 MG TABLET PO ×2 (06:11→16:35)
[2021-11-06] MEDS: Ipratropium Bromide 0.06% NASAL SPRAY 2 SPRAY NASAL ×3 (06:11→20:18)
[2021-11-06] MEDS: Cephalexin 500 MG Capsule PO ×2 (06:11→16:35)
[2021-11-06] MEDS: Venlafaxine XR 75 MG Capsule PO ×2 (06:11→16:35)
[2021-11-06] MEDS: Doxycycline 100 MG CAPSULE PO ×2 (06:12→16:35)
[2021-11-06] MEDS: Clopidogrel Bisulfate 75 MG Tablet PO (06:12)
[2021-11-06 06:15] VITALS: BP 127/80; PULSE 81
[2021-11-06 06:35] LABS: Bedside Glucose 129 mg/dL (74-106)
[2021-11-06] MEDS: Nystatin Powder 15gm Bottle 1 APPLIC TOPICAL ×3 (06:44→20:18)
[2021-11-06] MEDS: Menthol/Lanolin/Calamine/Znox 113 GM Tube 1 APPLIC TOPICAL ×2 (06:44→16:35)
[2021-11-06] MEDS: Folic Acid 1 MG Tablet PO (07:55)
[2021-11-06] MEDS: Potassium Chloride Oral Tablet 20 MEQ PO (07:55)
[2021-11-06] MEDS: Carvedilol 6.25 MG Tablet PO ×2 (07:55→16:34)
[2021-11-06] MEDS: Aspirin 81 MG TAB.CHEW PO (07:55)
[2021-11-06] MEDS: Meclizine HCl 25 MG Tablet PO (11:12)
[2021-11-06 12:28] VITALS: PULSE 81; RESP 16; O2SAT 92
[2021-11-06 15:15] VITALS: BP 108/58; PULSE 81; RESP 18; TEMP 36.7; O2SAT 91
[2021-11-07] MEDS: traMADol 50 MG Tablet PO ×2 (00:44→21:37)
[2021-11-07] MEDS: Ipratropium Bromide 0.06% NASAL SPRAY 2 SPRAY NASAL ×3 (05:16→21:37)
[2021-11-07] MEDS: Menthol/Lanolin/Calamine/Znox 113 GM Tube 1 APPLIC TOPICAL ×2 (05:16→21:39)
[2021-11-07] MEDS: Acetaminophen 500 MG Tablet 1000 MG PO (05:16)
[2021-11-07] MEDS: Doxycycline 100 MG CAPSULE PO ×2 (05:17→17:07)
[2021-11-07] MEDS: Clopidogrel Bisulfate 75 MG Tablet PO (05:17)
[2021-11-07] MEDS: Lisinopril 5 MG Tablet PO (05:17)
[2021-11-07] MEDS: Nystatin Powder 15gm Bottle 1 APPLIC TOPICAL ×3 (05:17→21:40)
[2021-11-07] MEDS: Cephalexin 500 MG Capsule PO ×2 (05:17→17:09)
[2021-11-07] MEDS: APIXABAN 5 MG TABLET PO ×2 (05:17→17:08)
[2021-11-07] MEDS: Venlafaxine XR 75 MG Capsule PO ×2 (05:17→17:08)
[2021-11-07 06:26] LABS: Bedside Glucose 130 mg/dL (74-106)
[2021-11-07] MEDS: Aspirin 81 MG TAB.CHEW PO (08:08)
[2021-11-07] MEDS: Carvedilol 6.25 MG Tablet PO ×2 (08:08→17:09)
[2021-11-07] MEDS: Folic Acid 1 MG Tablet PO (08:08)
[2021-11-07] MEDS: Potassium Chloride Oral Tablet 20 MEQ PO (08:10)
--- NOTE | 2021-11-07 10:43 | CASEMGMT ---
Addendum entered by Gina Daniel 11/07/21 13:53: Attempted to call again - successful. expressed her children are worried about bringing pt home, but she sees pt has been good progress and willing to take him home. However, she is still concerned about her back. She would like to speak with son again before making a decision, and call the SW with answer. Original Note: Social Work Attempted to contact for DC plans, but phone not in service. Spoke with pt and he does not have information on 's phone. Explained IDT set DC date for 11/15. Pt agreeable. Discussed DC plans. Pt not agreeable to SNF, and thinks he will be fine at home with HHC. IDT concerned that cannot care for him and his compliance at home. SW to attempt to speak with before finalizing DC plans. Gina Daniel, MAXIM AMANDA
[2021-11-07 16:00] VITALS: BP 108/64; PULSE 86; RESP 14; TEMP 36.4; O2SAT 93
--- NOTE | 2021-11-07 21:40 | NURSING ---
Pt does his own nasal spray per his request, tonight he accidentally sprayed a little in his left eye while using. Eye washed out using warm water, dried with cloth. Pt c/o slight burning that improved after washing, will continue to monitor.
[2021-11-08] MEDS: Nystatin Powder 15gm Bottle 1 APPLIC TOPICAL ×3 (05:59→19:49)
[2021-11-08] MEDS: Ipratropium Bromide 0.06% NASAL SPRAY 2 SPRAY NASAL ×3 (05:59→19:49)
[2021-11-08] MEDS: Menthol/Lanolin/Calamine/Znox 113 GM Tube 1 APPLIC TOPICAL ×2 (05:59→16:45)
[2021-11-08] MEDS: Venlafaxine XR 75 MG Capsule PO ×2 (06:00→18:23)
[2021-11-08] MEDS: APIXABAN 5 MG TABLET PO ×2 (06:00→18:23)
[2021-11-08] MEDS: Cephalexin 500 MG Capsule PO ×2 (06:00→18:23)
[2021-11-08] MEDS: Doxycycline 100 MG CAPSULE PO ×2 (06:00→16:44)
[2021-11-08] MEDS: Clopidogrel Bisulfate 75 MG Tablet PO (06:00)
[2021-11-08] MEDS: Lisinopril 5 MG Tablet PO (06:00)
[2021-11-08 06:02] VITALS: BP 111/71; PULSE 70
[2021-11-08 06:30] LABS: Bedside Glucose 149 mg/dL (74-106)
[2021-11-08] MEDS: Carvedilol 6.25 MG Tablet PO ×2 (08:59→18:23)
[2021-11-08] MEDS: Aspirin 81 MG TAB.CHEW PO (08:59)
[2021-11-08] MEDS: Folic Acid 1 MG Tablet PO (08:59)
[2021-11-08] MEDS: Potassium Chloride Oral Tablet 20 MEQ PO (08:59)
[2021-11-08] MEDS: traMADol 50 MG Tablet PO ×2 (09:32→19:48)
[2021-11-08] MEDS: Acetaminophen 500 MG Tablet 1000 MG PO (13:47)
[2021-11-08 15:36] VITALS: BP 117/68; PULSE 80; RESP 17; TEMP 36.2; O2SAT 98
[2021-11-09] MEDS: traMADol 50 MG Tablet PO ×3 (01:50→22:51)
[2021-11-09] MEDS: Acetaminophen 500 MG Tablet 1000 MG PO ×3 (01:52→22:51)
[2021-11-09 05:56] LABS: Absolute Lymphocyte Count 1.24 X10^3/uL (0.83-4.51); Absolute Neutrophil Count 3.6 X10^3/uL (2.0-7.7); Basophil# 0.06 X10^3/uL; Basophil% 1.1 % (0-1); Eosinophil# 0.07 X10^3/uL; Eosinophils% 1.2 % (0-5); Hematocrit 38.9 % (40-54); Hemoglobin 12.6 g/dL (13.0-16.5); Lymphocyte # 1.24 X10^3/ul (0.83-4.51); Lymphocyte % 22.1 % (19-41); Mean Corp Hgb Conc 32.4 g/dL (32-36); Mean Corpuscular Hgb 33.5 pg (27.0-32.0); Mean Corpuscular Volume 103.5 fL (80-94); Mean Platelet Vol. 9.8 fl (6.2-12.0); Monocyte# 0.61 X10^3/uL; Monocyte% 10.9 % (0-10); NRBC Flagged by Analyzer 0 % (0-5); Neutrophil # 3.59 X10^3/uL (2.7-7.7); Neutrophil % 63.8 % (47-70); Platelet Count 188 K/mm3 (150-450); RBC Distribution Width CV 16.3 % (11.6-14.6); RBC Distribution Width SD 61.9 fl (35.1-43.9); Red Blood Count 3.76 M/mm3 (4.6-6.2); White Blood Count 5.6 K/mm3 (4.4-11.0)
[2021-11-09 06:25] LABS: Anion Gap 5 (5-15); BUN 38 mg/dL (7-18); BUN/Creat Ratio 32.2 RATIO (10-20); Calcium,Total 8.9 mg/dL (8.5-10.1); Chloride 109 mmol/L (98-107); Creatinine, Serum 1.18 mg/dL (0.70-1.30); EST Glomerular Filtration Rate 65 mL/min (>60); Est Glom Filt Rate - Afr Amer 78 mL/min (>60); Estimated Creatinine Clearance 55.55 ml/min; Glucose 112 mg/dL (74-106); Potassium 4.4 mmol/L (3.5-5.1); Sodium Level 139 mmol/L (136-145)
[2021-11-09 06:30] LABS: Bedside Glucose 157 mg/dL (74-106)
[2021-11-09] MEDS: Doxycycline 100 MG CAPSULE PO ×2 (06:41→18:13)
[2021-11-09] MEDS: Cephalexin 500 MG Capsule PO ×2 (06:41→18:12)
[2021-11-09] MEDS: Lisinopril 5 MG Tablet PO (06:42)
[2021-11-09] MEDS: Ipratropium Bromide 0.06% NASAL SPRAY 2 SPRAY NASAL ×3 (06:42→22:53)
[2021-11-09] MEDS: Clopidogrel Bisulfate 75 MG Tablet PO (06:42)
[2021-11-09] MEDS: APIXABAN 5 MG TABLET PO ×2 (06:42→18:13)
[2021-11-09] MEDS: Menthol/Lanolin/Calamine/Znox 113 GM Tube 1 APPLIC TOPICAL (06:43)
[2021-11-09] MEDS: Nystatin Powder 15gm Bottle 1 APPLIC TOPICAL ×3 (06:43→23:06)
[2021-11-09] MEDS: Folic Acid 1 MG Tablet PO (08:42)
[2021-11-09] MEDS: Aspirin 81 MG TAB.CHEW PO (08:42)
[2021-11-09] MEDS: Venlafaxine XR 75 MG Capsule PO ×2 (08:42→18:12)
[2021-11-09] MEDS: Carvedilol 6.25 MG Tablet PO ×2 (08:43→18:13)
[2021-11-09] MEDS: Potassium Chloride Oral Tablet 20 MEQ PO (08:43)
--- NOTE | 2021-11-09 09:48 | EKG12_ITS ---
Test Reason : CP Blood Pressure : / mmHG Vent. Rate : 077 BPM Atrial Rate : 077 BPM P-R Int : 132 ms QRS Dur : 130 ms QT Int : 426 ms P-R-T Axes : 007 215 037 degrees QTc Int : 482 ms Normal sinus rhythm Right bundle branch block Lateral infarct , age undetermined Inferior infarct (cited on or before 24-JUL-2020) Abnormal ECG When compared with ECG of 16-OCT-2021 15:06, Premature ventricular complexes are no longer Present Lateral infarct is now Present Confirmed by JORDEN MEEK, SHAJI ([id number]), news editor CAROLYN HYLTON ([id number]) on 11/17/2021 1:53:20 PM Referred By: SIDDHARTH Confirmed By:CAITY LEONARDO MD
--- NOTE | 2021-11-09 10:09 | NURSING ---
Patient c/o numbness and tingling in L arm radiating to chest to Physical therapist. PT approached me about complaint, VS BP: 132/86, Pulse: 86 SPO2:98% room air, RR 16, afebrile. Patient assessed, EKG ordered and obtained, no changes from past EKG, patient now stating that he feels back to normal. Will continue to monitor.
--- NOTE | 2021-11-09 12:32 | CASEMGMT ---
Addendum entered by Gina Daniel 11/14/21 15:57: Received voicemail from [facility] their staffing can no longer support pt's area. Updated pt. Pt agreeable to [facility]. Referral made. Original Note: Social Work Followed up with on DC plans. states she is going to take pt home and see how it goes. No DME needs. SW to order HHC. Asked for HHC preference. has no preference - agreeable to [facility]. Referral made for PT/OT/SN/ARMIJO/SW. SW to ensure smooth transition home or if SNF placement will be needed. to transport. Plan: DC home with 11/15, [facility] PT/OT/SN/ARMIJO/SW MAXIM LopezW
[2021-11-09 14:51] VITALS: BP 100/62; PULSE 72; RESP 16; TEMP 36.7; O2SAT 95
--- NOTE | 2021-11-09 18:40 | PCM.DC.SUM ---
Providers Date of Admission: 10/18/21 Primary Care Physician: Dr. Mckayla Silva DO Reason For Visit: CELLUSITIS Diagnosis Discharge Diagnosis (1) Debility: Status: Acute Code(s): R53.81 - Other malaise (2) Cellulitis of right leg: Status: Resolved Code(s): L03.115 - Cellulitis of right lower limb (3) Tinea cruris: Status: Acute Code(s): B35.6 - Tinea cruris (4) Acute kidney injury: Status: Acute Code(s): N17.9 - Acute kidney failure, unspecified (5) Peripheral arterial occlusive disease: Status: Acute Code(s): I77.9 - Disorder of arteries and arterioles, unspecified (6) Diabetes mellitus: Status: Acute Code(s): E11.9 - Type 2 diabetes mellitus without complications (7) Depression: Status: Acute Code(s): F32.A - Depression, unspecified (8) Coronary artery disease: Status: Acute Code(s): I25.10 - Atherosclerotic heart disease of [place] coronary artery without angina pectoris (9) Stroke: Status: Acute Code(s): I63.9 - Cerebral infarction, unspecified (10) Hypertension: Status: Chronic Code(s): I10 - Essential (primary) hypertension (11) Erectile dysfunction: Status: Acute Code(s): N52.9 - Male erectile dysfunction, unspecified (12) Hypokalemia: Status: Acute Code(s): E87.6 - Hypokalemia Medications at Discharge Home Medications aspirin 1 tab PO DAILY 12/11/20 clopidogrel 75 mg PO DAILY 12/11/20 glyburide 10 mg PO DAILY 12/11/20 folic acid 1 mg PO DAILY 08/13/21 methotrexate sodium 17.5 mg PO FR 08/13/21 apixaban 5 mg PO BID 10/18/21 carvedilol 6.25 mg PO BID 10/18/21 lisinopril 5 mg PO DAILY 10/18/21 potassium chloride 20 meq PO DAILY 10/18/21 acetaminophen 1,000 mg PO Q6H PRN PRN #0 tab 11/09/21 tramadol 50 mg PO Q6H PRN PRN 3 Days #12 tab 11/09/21 venlafaxine 75 mg PO BID 30 Days #60 cap 11/09/21 Hospital Course Operations None Procedures None Summary of Care Provided Minutes Spent on Discharge: 35 Hospital Course: 71 year old male with below past medical history hospitalized for right lower extremity cellulitis, tinea cruris, acute kidney injury, admitted to TCU with debility, here for rehabilitation, strengthening, prior to disposition determination. Discharge home with 11/15/2021, [facility] PT/OT/SN/ARMIJO/SW. Physical Exam Const alert General Appearance: cooperative HEENT normocephalic Eyes PERRL and EOMs intact bilaterally Neck supple, no JVD and no carotid bruits Resp normal respiratory effort, normal air movement and clear to auscultation bilaterally Cardio regular rate and regular rhythm GI normal to inspection, nondistended, normoactive bowel sounds, non-tender and non-distended Extremity normal capillary refill General Extremity: Negative for edema Skin no rashes or lesions noted General Skin Exam: no breakdown Psych affect normal Appearance: appropriate Weight / BMI Weight Weight: 84.056 kg Body Mass Index (BMI) 26.4 ABG / Lab / Microbiology Data Result Diagrams: 11/09/21 05:42 11/09/21 05:42 Laboratory: Laboratory Results - last 24 hr 11/09/21 05:42: WBC 5.6, RBC 3.76 L, Hgb 12.6 L, Hct 38.9 L, MCV 103.5 H, MCH 33.5 H, MCHC 32.4, RDW Std Deviation 61.9 H, RDW Coeff of Melodie 16.3 H, Plt Count 188, MPV 9.8, Immature Gran % (Auto) 0.900, Neut % (Auto) 63.8, Lymph % (Auto) 22.1, Evans % (Auto) 10.9 H, Eos % (Auto) 1.2, Baso % (Auto) 1.1 H, Absolute Neuts (auto) 3.6, Absolute Lymphs (auto) 1.24, Nucleated RBC % 0 11/09/21 05:42: Sodium 139, Potassium 4.4, Chloride 109 H, Carbon Dioxide 25.0, Anion Gap 5, BUN 38 H, Creatinine 1.18, Estim Creat Clear Calc 55.55, Est GFR (MDRD) Af Amer 78, Est GFR (MDRD) Non-Af 65, BUN/Creatinine Ratio 32.2 H, Glucose 112 H, Calcium 8.9 11/09/21 06:11: POC Glucose 157 H Microbiology: Microbiology 11/06/21 16:31 Nasal Secretion SARS-CoV-2 Antigen (Rapid) - Final 11/03/21 13:22 Nasal Secretion SARS-CoV-2 Antigen (Rapid) - Final 10/25/21 16:25 Nasal Secretion SARS-CoV-2 Antigen (Rapid) - Final D/C Instructions Discharge Diet: No restrictions Discharge Activity: Return to Normal Activity, May Shower and Use Walker Weight Bearing Status: Weight bearing as tolerated Call your doctor if you observe: Fever of 101 or Higher, Inability to urinate, Inability to have a bowel movement, Shortness of breath, Dizziness, Fainting spells, Swelling in the ankles, Chest pain and Uncontrolled pain Additional Instructions: Discharge home with 11/15/2021, [facility] PT/OT/SN/ARMIJO/SW. Meaningful Use Info Meaningful Use Diagnoses (Choose all that apply): None applicable Discharge Plan Admission Admit Date/Time: 10/18/21 16:23 Primary Reason for Your Visit: Debility. Attending Provider: Jerrod Medina Chi Primary Care Provider: Mckayla Silva Instructions Additional Instructions / Restrictions: Discharge home with 11/15/2021, [facility] PT/OT/SN/ARMIJO/SW. Discharge Orders/Prescriptions Prescriptions: New venlafaxine 75 mg Capsule,Extended Release 24hr 75 mg PO BID 30 Days Qty: 60 RF: 0 tramadol 50 mg Tablet 50 mg PO Q6H PRN PRN (Reason: Pain Score 4-10) 3 Days Qty: 12 RF: 0 acetaminophen 500 mg Tablet 1,000 mg PO Q6H PRN PRN (Reason: Pain Score 1-3) Qty: 0 RF: 0 Continued glyburide 5 mg Tablet 10 mg PO DAILY RF: 0 clopidogrel 75 mg Tablet 75 mg PO DAILY RF: 0 aspirin 81 mg tablet,chewable 1 tab PO DAILY RF: 0 methotrexate sodium 2.5 mg tablet 17.5 mg PO FR RF: 0 folic acid 1 mg Tablet 1 mg PO DAILY RF: 0 carvedilol 6.25 mg tablet 6.25 mg PO BID RF: 0 potassium chloride 10 mEq tablet extended release 20 meq PO DAILY RF: 0 lisinopril 5 mg tablet 5 mg PO DAILY RF: 0 apixaban 5 MG tablet 5 mg PO BID RF: 0 Discontinued venlafaxine 75 mg Tablet Extended Release 24hr 75 mg PO DAILY RF: 0 tadalafil 10 mg tablet 5 mg PO DAILY PRN PRN (Reason: NEEDED) RF: 0 furosemide [Lasix] 40 mg tablet 40 mg PO DAILY RF: 0 cephalexin 500 mg capsule 500 mg PO Q8H RF: 0 nystatin 100,000 unit/gram powder 1 applic topical TID RF: 0 Referrals / Follow Up: Mckayla Silva DO [Primary Care Provider] - Disposition Disposition (needs filled in before D/C Order can be placed): Home Health Service
[2021-11-09 22:45] VITALS: PULSE 68; RESP 18; O2SAT 98
--- NOTE | 2021-11-10 03:20 | NURSING ---
Patient having increased pain overnight, says its a burning pain, still has redness . Blister to that leg open, tiny amount of drainage. Cleansed w/ NS and applied adaptic and loose DSD. Left note for MD to assess.
[2021-11-10 05:39] VITALS: BP 119/78; PULSE 83
[2021-11-10] MEDS: traMADol 50 MG Tablet PO ×2 (05:40→20:28)
[2021-11-10] MEDS: Methotrexate 2.5 MG Tablet 17.5 MG PO (05:41)
[2021-11-10 06:31] LABS: Bedside Glucose 143 mg/dL (74-106)
[2021-11-10] MEDS: Clopidogrel Bisulfate 75 MG Tablet PO (06:51)
[2021-11-10] MEDS: APIXABAN 5 MG TABLET PO ×2 (06:51→16:59)
[2021-11-10] MEDS: Venlafaxine XR 75 MG Capsule PO ×2 (06:51→16:59)
[2021-11-10] MEDS: Cephalexin 500 MG Capsule PO ×2 (06:51→16:59)
[2021-11-10] MEDS: Lisinopril 5 MG Tablet PO (06:51)
[2021-11-10] MEDS: Ipratropium Bromide 0.06% NASAL SPRAY 2 SPRAY NASAL ×3 (06:51→20:28)
[2021-11-10] MEDS: Doxycycline 100 MG CAPSULE PO ×2 (06:51→16:59)
[2021-11-10] MEDS: Menthol/Lanolin/Calamine/Znox 113 GM Tube 1 APPLIC TOPICAL ×2 (06:53→16:59)
[2021-11-10] MEDS: Nystatin Powder 15gm Bottle 1 APPLIC TOPICAL ×3 (06:53→20:30)
[2021-11-10] MEDS: Potassium Chloride Oral Tablet 20 MEQ PO (08:21)
[2021-11-10] MEDS: Carvedilol 6.25 MG Tablet PO ×2 (08:21→16:59)
[2021-11-10] MEDS: Aspirin 81 MG TAB.CHEW PO (08:21)
[2021-11-10] MEDS: Folic Acid 1 MG Tablet PO (08:22)
[2021-11-10 10:42] VITALS: PULSE 77; RESP 18; O2SAT 97
[2021-11-10 16:33] VITALS: BP 108/60; PULSE 77; RESP 18; TEMP 36.7; O2SAT 97
[2021-11-11 04:25] VITALS: BP 102/55; PULSE 74
[2021-11-11] MEDS: Ipratropium Bromide 0.06% NASAL SPRAY 2 SPRAY NASAL ×3 (04:26→19:53)
[2021-11-11] MEDS: Clopidogrel Bisulfate 75 MG Tablet PO (04:27)
[2021-11-11] MEDS: Venlafaxine XR 75 MG Capsule PO ×2 (04:27→17:01)
[2021-11-11] MEDS: traMADol 50 MG Tablet PO ×2 (04:27→19:56)
[2021-11-11] MEDS: Cephalexin 500 MG Capsule PO ×2 (04:27→17:01)
[2021-11-11] MEDS: APIXABAN 5 MG TABLET PO ×2 (04:28→17:02)
[2021-11-11] MEDS: Doxycycline 100 MG CAPSULE PO ×2 (04:28→17:02)
[2021-11-11] MEDS: Menthol/Lanolin/Calamine/Znox 113 GM Tube 1 APPLIC TOPICAL ×2 (04:28→17:02)
[2021-11-11] MEDS: Nystatin Powder 15gm Bottle 1 APPLIC TOPICAL ×3 (04:32→19:56)
[2021-11-11 06:26] LABS: Bedside Glucose 146 mg/dL (74-106)
[2021-11-11] MEDS: Aspirin 81 MG TAB.CHEW PO (08:10)
[2021-11-11] MEDS: Folic Acid 1 MG Tablet PO (08:10)
[2021-11-11] MEDS: Potassium Chloride Oral Tablet 20 MEQ PO (08:10)
[2021-11-11] MEDS: Carvedilol 6.25 MG Tablet PO ×2 (08:10→17:02)
[2021-11-11 16:00] VITALS: BP 109/61; PULSE 66; RESP 16; TEMP 36.6; O2SAT 93
[2021-11-11] MEDS: Acetaminophen 500 MG Tablet 1000 MG PO (19:56)
[2021-11-11 20:00] VITALS: PULSE 77; RESP 18; O2SAT 97
[2021-11-12] MEDS: Acetaminophen 500 MG Tablet 1000 MG PO ×2 (01:57→17:51)
[2021-11-12] MEDS: traMADol 50 MG Tablet PO ×2 (01:57→20:41)
[2021-11-12 06:41] LABS: Bedside Glucose 145 mg/dL (74-106)
[2021-11-12 06:43] VITALS: BP 131/78; PULSE 79
[2021-11-12] MEDS: Ipratropium Bromide 0.06% NASAL SPRAY 2 SPRAY NASAL ×3 (06:44→20:39)
[2021-11-12] MEDS: Clopidogrel Bisulfate 75 MG Tablet PO (06:45)
[2021-11-12] MEDS: Doxycycline 100 MG CAPSULE PO (06:45)
[2021-11-12] MEDS: Menthol/Lanolin/Calamine/Znox 113 GM Tube 1 APPLIC TOPICAL ×2 (06:45→17:13)
[2021-11-12] MEDS: Nystatin Powder 15gm Bottle 1 APPLIC TOPICAL ×3 (06:45→20:39)
[2021-11-12] MEDS: Venlafaxine XR 75 MG Capsule PO ×2 (06:45→17:14)
[2021-11-12] MEDS: APIXABAN 5 MG TABLET PO ×2 (06:46→17:14)
[2021-11-12] MEDS: Cephalexin 500 MG Capsule PO (06:46)
[2021-11-12] MEDS: Lisinopril 5 MG Tablet PO (06:46)
[2021-11-12] MEDS: Folic Acid 1 MG Tablet PO (07:56)
[2021-11-12] MEDS: Aspirin 81 MG TAB.CHEW PO (07:56)
[2021-11-12] MEDS: Potassium Chloride Oral Tablet 20 MEQ PO (07:56)
[2021-11-12] MEDS: Carvedilol 6.25 MG Tablet PO ×2 (07:57→17:13)
[2021-11-12 16:00] VITALS: BP 103/66; PULSE 74; RESP 16; TEMP 35.9; O2SAT 98
--- NOTE | 2021-11-12 22:42 | PCA ---
patient refused pm care, but did have a shower today on day shift
[2021-11-13] MEDS: Acetaminophen 500 MG Tablet 1000 MG PO ×3 (00:01→23:03)
[2021-11-13] MEDS: traMADol 50 MG Tablet PO ×3 (03:47→23:02)
[2021-11-13] MEDS: Nystatin Powder 15gm Bottle 1 APPLIC TOPICAL ×3 (05:49→23:03)
[2021-11-13] MEDS: Venlafaxine XR 75 MG Capsule PO ×2 (05:49→17:43)
[2021-11-13] MEDS: Clopidogrel Bisulfate 75 MG Tablet PO (05:49)
[2021-11-13] MEDS: APIXABAN 5 MG TABLET PO ×2 (05:49→17:43)
[2021-11-13] MEDS: Lisinopril 5 MG Tablet PO (05:49)
[2021-11-13] MEDS: Ipratropium Bromide 0.06% NASAL SPRAY 2 SPRAY NASAL ×3 (05:49→23:02)
[2021-11-13] MEDS: Menthol/Lanolin/Calamine/Znox 113 GM Tube 1 APPLIC TOPICAL ×2 (05:50→17:44)
[2021-11-13 06:36] LABS: Bedside Glucose 124 mg/dL (74-106)
[2021-11-13] MEDS: Aspirin 81 MG TAB.CHEW PO (07:41)
[2021-11-13] MEDS: Carvedilol 6.25 MG Tablet PO ×2 (07:41→17:43)
[2021-11-13] MEDS: Folic Acid 1 MG Tablet PO (07:41)
[2021-11-13] MEDS: Potassium Chloride Oral Tablet 20 MEQ PO (07:42)
[2021-11-13 09:54] VITALS: PULSE 68; RESP 20; TEMP 36.1; O2SAT 99
[2021-11-13 13:15] VITALS: BP 98/41
[2021-11-14] MEDS: APIXABAN 5 MG TABLET PO ×2 (05:15→17:13)
[2021-11-14] MEDS: traMADol 50 MG Tablet PO ×3 (05:15→23:40)
[2021-11-14] MEDS: Nystatin Powder 15gm Bottle 1 APPLIC TOPICAL ×3 (05:15→20:57)
[2021-11-14] MEDS: Lisinopril 5 MG Tablet PO (05:16)
[2021-11-14] MEDS: Ipratropium Bromide 0.06% NASAL SPRAY 2 SPRAY NASAL ×3 (05:16→20:58)
[2021-11-14] MEDS: Venlafaxine XR 75 MG Capsule PO ×2 (05:16→17:13)
[2021-11-14] MEDS: Acetaminophen 500 MG Tablet 1000 MG PO ×2 (05:16→20:57)
[2021-11-14] MEDS: Clopidogrel Bisulfate 75 MG Tablet PO (05:16)
[2021-11-14] MEDS: Menthol/Lanolin/Calamine/Znox 113 GM Tube 1 APPLIC TOPICAL ×2 (05:18→17:13)
[2021-11-14 06:21] LABS: Bedside Glucose 122 mg/dL (74-106)
[2021-11-14] MEDS: Carvedilol 6.25 MG Tablet PO ×2 (07:53→17:13)
[2021-11-14] MEDS: Aspirin 81 MG TAB.CHEW PO (07:53)
[2021-11-14] MEDS: Potassium Chloride Oral Tablet 20 MEQ PO (07:53)
[2021-11-14] MEDS: Folic Acid 1 MG Tablet PO (07:53)
[2021-11-14 16:00] VITALS: BP 105/53; PULSE 74; RESP 16; TEMP 36.7; O2SAT 92
[2021-11-14 19:48] VITALS: PULSE 74; RESP 16; O2SAT 94
[2021-11-15] MEDS: Clopidogrel Bisulfate 75 MG Tablet PO (04:45)
[2021-11-15] MEDS: Acetaminophen 500 MG Tablet 1000 MG PO (04:45)
[2021-11-15] MEDS: APIXABAN 5 MG TABLET PO (04:45)
[2021-11-15] MEDS: Lisinopril 5 MG Tablet PO (04:45)
[2021-11-15] MEDS: Nystatin Powder 15gm Bottle 1 APPLIC TOPICAL (04:46)
[2021-11-15] MEDS: Menthol/Lanolin/Calamine/Znox 113 GM Tube 1 APPLIC TOPICAL (04:46)
[2021-11-15] MEDS: Venlafaxine XR 75 MG Capsule PO (04:46)
[2021-11-15] MEDS: Ipratropium Bromide 0.06% NASAL SPRAY 2 SPRAY NASAL (04:47)
[2021-11-15 06:16] LABS: Bedside Glucose 131 mg/dL (74-106)
[2021-11-15] MEDS: Carvedilol 6.25 MG Tablet PO (08:23)
[2021-11-15] MEDS: Folic Acid 1 MG Tablet PO (08:23)
[2021-11-15] MEDS: traMADol 50 MG Tablet PO (08:24)
[2021-11-15] MEDS: Potassium Chloride Oral Tablet 20 MEQ PO (08:24)
[2021-11-15] MEDS: Aspirin 81 MG TAB.CHEW PO (08:24)
[2021-11-15 09:34] VITALS: PULSE 72; RESP 14; O2SAT 95
--- NOTE | 2021-11-15 11:30 | NURSING ---
Patient discharged from facility, before leaving paged for Coreg script to be sent to [facility] for pickup.
== END 2021-11-15 11:15 | disposition home health service (06) | DRG 603 ==
PROVIDERS: Admitting Provider Family Medicine Geriatric Medicine; PCP Family Medicine; Visit Provider Family Medicine Geriatric Medicine
DX: L03.115 Cellulitis of right lower limb (principal); E78.6 Lipoprotein deficiency; E11.51 Type 2 diabetes mellitus with diabetic peripheral angiopathy without gangrene; B35.4 Tinea corporis; B35.6 Tinea cruris; B37.9 Candidiasis, unspecified; M06.9 Rheumatoid arthritis, unspecified; E78.5 Hyperlipidemia, unspecified; I10 Essential (primary) hypertension; I25.10 Atherosclerotic heart disease of native coronary artery without angina pectoris; M21.372 Foot drop, left foot; E87.6 Hypokalemia; F32.A Depression, unspecified; Z79.899 Other long term (current) drug therapy; Z79.82 Long term (current) use of aspirin; Z79.02 Long term (current) use of antithrombotics/antiplatelets; Z79.01 Long term (current) use of anticoagulants
CPT/HCPCS: 36415; 80048; 82962; 85025; 87426; 87811; 93005; 97110; 97116; 97162; 97166; 97530; 97535; 97802; J8610

== ENCOUNTER → 2021-12-07 | Outpatient (CLI) | payer MEDICARE, OTHER, SELFPAY ==
--- NOTE | 2021-12-07 10:37 | ART_ITS ---
Reason For Study: Atherosclerosis Procedure A bilateral lower extremity continuous wave Doppler with analog waveform analysis and ankle brachial indexes. Left Segmental Pressures Left brachial= 127mmHg. Left posterior tibial artery = 38mmHg. Left dorsalis pedis artery = 74mmHg. The left dorsalis pedis waveforms are monophasic. The left posterior tibial artery waveforms are monophasic. Right Segmental Pressures Right brachial= 129mmHg. Right posterior tibial artery = 36mmHg. Right dorsalis pedis artery = 70mmHg. The right dorsalis pedis waveforms are monophasic. The right posterior tibial artery waveforms are monophasic. Indices The right ankle brachial index by the dorsalis pedis is 0.54. The right ankle brachial index by the posterior tibial artery is 0.28. The left ankle brachial index by the dorsalis pedis is 0.57. The left ankle brachial index by the posterior tibial artery is 0.29. VL/Ankle Brachial Index Interpretation Summary Bilateral lower extremities with moderate occlusive disease with an JANET 0.54 an d 0.57. Ordering Physician: Lex Navas Referring Physician: Mckayla Silva Performed By: Savanna Quinones RVT
== END | disposition home or self-care (01) ==
LOC: CVS 10:34
PROVIDERS: PCP Family Medicine; Referring Provider Surgery Vascular Surgery; Visit Provider Surgery Vascular Surgery
DX: I70.213 Atherosclerosis of native arteries of extremities with intermittent claudication, bilateral legs (principal); I70.234 Atherosclerosis of native arteries of right leg with ulceration of heel and midfoot; E11.51 Type 2 diabetes mellitus with diabetic peripheral angiopathy without gangrene; E11.59 Type 2 diabetes mellitus with other circulatory complications; I63.9 Cerebral infarction, unspecified; M21.372 Foot drop, left foot; I25.2 Old myocardial infarction
CPT/HCPCS: 93922

== ENCOUNTER → 2022-01-22 | Outpatient (CLI) | payer MEDICARE, OTHER, SELFPAY | END | disposition home or self-care (01) | PROVIDERS: PCP Family Medicine; Visit Provider Family Medicine | DX: L03.90 Cellulitis, unspecified (principal) | CPT/HCPCS: 87070; 87077; 87186; 87205 ==

== ENCOUNTER → 2022-04-19 | Outpatient (CLI) | payer MEDICARE, OTHER, SELFPAY ==
[2022-04-19 18:15] LABS: Absolute Lymphocyte Count 0.87 X10^3/uL (0.83-4.51); Absolute Neutrophil Count 4.5 X10^3/uL (2.0-7.7); Basophil# 0.07 X10^3/uL; Basophil% 1.1 % (0-1); Eosinophils% 4.6 % (0-5); Hematocrit 39.4 % (40-54); Hemoglobin 13.1 g/dL (13.0-16.5); Lymphocyte # 0.87 X10^3/ul (0.83-4.51); Lymphocyte % 13.3 % (19-41); Mean Corp Hgb Conc 33.2 g/dL (32-36); Mean Corpuscular Hgb 34.9 pg (27.0-32.0); Mean Corpuscular Volume 105.1 fL (80-94); Mean Platelet Vol. 10.2 fl (6.2-12.0); Monocyte# 0.75 X10^3/uL; Monocyte% 11.4 % (0-10); NRBC Flagged by Analyzer 0 % (0-5); Neutrophil # 4.48 X10^3/uL (2.7-7.7); Neutrophil % 68.2 % (47-70); Platelet Count 223 K/mm3 (150-450); RBC Distribution Width CV 15.9 % (11.6-14.6); Red Blood Count 3.75 M/mm3 (4.6-6.2); White Blood Count 6.6 K/mm3 (4.4-11.0)
[2022-04-19 18:21] LABS: ALB/GLOB Ratio 0.8 RATIO (0.9-2.4); AST(SGOT) 13 U/L (15-37); Alanine Aminotransfer ALT/SGPT 25 U/L (16-61); Albumin, Serum 3.2 g/dL (3.2-5.0); Alkaline Phosphatase 91 U/L (45-117); Anion Gap 7 (5-15); BUN 28 mg/dL (7-18); BUN/Creat Ratio 23.5 RATIO (10-20); Calcium,Total 8.7 mg/dL (8.5-10.1); Chloride 106 mmol/L (98-107); Cholesterol 198 mg/dL (200); Creatinine, Serum 1.19 mg/dL (0.70-1.30); EST Glomerular Filtration Rate 64 mL/min (>60); Est Glom Filt Rate - Afr Amer 77 mL/min (>60); Glucose 120 mg/dL (74-106); High Density Lipoprotein 46 mg/dL; Potassium 4.3 mmol/L (3.5-5.1); Protein, Total 7.2 g/dL (6.4-8.2); Sodium Level 138 mmol/L (136-145); Triglycerides 181 mg/dL; Very Low Density Lipoprotein 36 mg/dL (5-40)
== END | disposition home or self-care (01) ==
LOC: MTLAB 14:36
PROVIDERS: PCP Family Medicine; Referring Provider Family Medicine; Visit Provider Family Medicine
DX: E11.65 Type 2 diabetes mellitus with hyperglycemia (principal); Z51.81 Encounter for therapeutic drug level monitoring
CPT/HCPCS: 36415; 80053; 80061; 85025

== ENCOUNTER 2022-05-18 13:36 | Outpatient (CLI) | payer MEDICARE, OTHER, SELFPAY ==
--- NOTE | 2022-05-18 13:39 | RAD_ITS ---
STUDY: X-RAY CHEST REASON FOR EXAM: Male, 72 years old. COUGH TECHNIQUE: PA and lateral views of the chest. COMPARISON: 10/16/2021 FINDINGS: Status post median sternotomy. The lungs are clear and expanded. There is no demonstrated pleural abnormality. Normal size heart. Normal mediastinum and isaak. Normal visualized pulmonary arteries. Normal visualized aortic arch and descending thoracic aorta. Normal visualized thoracic spine. Normal visualized ribs, clavicles, and shoulders. There is no demonstrated abnormality of the visualized soft tissue structures of the upper abdomen. RAD/Chest PA and Lateral IMPRESSION: No active disease. Electronically Signed: Ramon Charles MD at 8:41 EST ,
--- NOTE | 2022-05-18 13:40 | RAD_ITS ---
STUDY: X-RAY LEFT FOOT, 2 TOE REASON FOR EXAM: Male, 72 years old. 2ND TOE TECHNIQUE: 3 view(s) of the toe were obtained. COMPARISON: None. FINDINGS: Normal visualized metatarsus. Normal metatarsophalangeal (M.T.P) joint. Normal interphalangeal joints. Normal phalanges and interphalangeal joints. No bone destruction to suggest osteomyelitis. The soft tissue structures are unremarkable. RAD/Toe(s) Min 2 Views IMPRESSION: Normal x-ray of the toe. No radiographic evidence of osteomyelitis per Electronically Signed: Ramon Charles MD at 8:40 EST ,
== END 2022-05-18 23:59 | disposition home or self-care (01) ==
LOC: MTRAD 13:38
PROVIDERS: PCP Family Medicine; Referring Provider Family Medicine; Visit Provider Family Medicine
DX: E11.621 Type 2 diabetes mellitus with foot ulcer (principal); L97.524 Non-pressure chronic ulcer of other part of left foot with necrosis of bone; M86.9 Osteomyelitis, unspecified; E11.69 Type 2 diabetes mellitus with other specified complication; I77.9 Disorder of arteries and arterioles, unspecified; R05.9 Cough, unspecified; R06.02 Shortness of breath; E87.6 Hypokalemia; I10 Essential (primary) hypertension; R53.81 Other malaise; F32.A Depression, unspecified
CPT/HCPCS: 11042; 71046; 73660; 87070; 87075; 87077; 87186; 87205; 88307; 88311; 99213; G0463

== ENCOUNTER 2022-06-15 12:00 | Outpatient (RCR) | payer MEDICARE, OTHER, SELFPAY ==
[2022-05-18 11:30] VITALS: BP 132/75; PULSE 93; RESP 16; TEMP 36.4; BMI 25.8
--- NOTE | 2022-05-18 11:48 | WC ---
PT'S COULD NOT REMEMBER ALL HIS MEDS, WILL BRING FULL LIST AT NEXT VISIT.
--- NOTE | 2022-05-18 12:30 | BONBX_PTH ---
PATIENT: TRAM RIVERA LOC: U#:[id number] AGE/SX: 72/M ROOM: RE06/15/[address]: Dr. Mckayla Silva DO : 1950 BED: DIS: 06/16/2022 SPEC #: [id number] RECD: 05/18/22 12:57 STATUS: CHRISTIANO CRISTIANA #: [id number] KIYA: 05/18/22 12:[address]: Mckayla Silva DEPT: SURGICAL PATHOLOGY RECD BY: Ruthie Valdez Tissues: Bone of foot, NOS Procedures: Decalcification bone/plaque Surgery Specimen Level V HEADER OPERATION: Bone biopsy left second toe proximal joint PRE-OP DIAGNOSIS: Ulcer left second toe, bone exposed TISSUE SUBMITTED: Left second toe proximal joint MICROSCOPIC DIAGNOSIS Left second toe proximal joint, bone core biopsy: Fragment of bone with reparative and reactive change. No evidence of osteomyelitis. AM:ann 05/21/2022 MICROSCOPIC DESCRIPTION Slides are reviewed. GROSS DESCRIPTION Received in fixative is one container labeled with the patient's name and designated left second toe bone biopsy. The specimen consists of an irregular fragment of knox bone measuring 0.2 x 0.1 x 0.1 cm. The specimen is totally submitted in one cassette after decalcification. / AM:ann 05/18/2022 TC:5 CPT: 80939, 58959
--- NOTE | 2022-05-18 14:54 | HP.PCM_ITS ---
History of Present Illness Date of Service: 05/18/22 Chief Complaint: Nonhealing ulcer left second toe, Valdez Grade 4 diabetic ulcer. History of Wound: Gibson is here for evaluation of an ulcer of his left second toe. This occurred after he injured his toe when he fell in the bathtub in January. It had been improving and then recently in the last 6-8 weeks it became worse and he was referred here for further treatment. He has [facility] Home Health services. He has been treating the ulcer with hydrogel and adaptic and covering with gauze. He has not been on any antibiotic treatment for the ulcer and no cultures have been done. He denies fever, chills, increased erythema or streaking erythema. There is moderate drainage. Denies odor. [facility] Medical History Back pain with history of spinal surgery Chronic renal insufficiency, stage II (mild) Coronary artery disease Diabetes mellitus Failure to thrive Fatigue Foot drop, left foot History of right common carotid artery stent placement Hyperlipidemia Hypertension Peripheral arterial occlusive disease Peripheral vascular disease Home Medications aspirin 81 mg chewable tablet 1 tab PO DAILY heart health 12/11/20 [History Last Taken 10/16/21] clopidogrel 75 mg tablet 75 mg PO DAILY anti platelet 12/11/20 [History Last Taken 10/16/21] glyburide 5 mg tablet 5 mg PO BID diabetes 12/11/20 [History Last Taken 12/10/20] folic acid 1 mg tablet 1 mg PO DAILY supplement 08/13/21 [History Last Taken 10/16/21] methotrexate sodium 2.5 mg tablet 17.5 mg PO FR inflammation 08/13/21 [History Last Taken 10/13/21] apixaban 5 mg tablet 5 mg PO BID Blood Thinner 10/18/21 [History Last Taken Unknown] carvedilol 6.25 mg tablet 6.25 mg PO BID BP 10/18/21 [History Last Taken Unknown] lisinopril 5 mg tablet 5 mg PO DAILY BP 10/18/21 [History Last Taken Unknown] potassium chloride 10 mEq tablet,extended release 20 meq PO DAILY Supplement 10/18/21 [History Last Taken Unknown] acetaminophen 500 mg tablet 1,000 mg PO Q6H PRN PRN Pain Score 1-3 #0 tabs 11/09/21 [Rx Last Taken Unknown] tramadol 50 mg tablet 50 mg PO Q6H PRN PRN Pain Score 4-10 3 days #12 tabs 11/09/21 [Rx Last Taken Unknown] carvedilol 6.25 mg tablet 6.25 mg PO BIDCM 30 days #60 tabs 11/15/21 [Rx Last Taken Unknown] oxycodone 5 mg tablet 5 - 10 mg PO Q6H PRN Pain 05/18/22 [History Last Taken Unknown] venlafaxine 75 mg capsule,extended release 24 hr 150 mg PO DAILY 05/18/22 [History Last Taken Unknown] venlafaxine 75 mg tablet 75 mg PO QHS 05/18/22 [History Last Taken Unknown] Allergy/AdvReac Type Severity Reaction Status Date / Time morphine Allergy PT UNSURE Verified 05/18/22 11:46 OF REACTION rivaroxaban [From Xarelto] Allergy Other Verified 05/18/22 11:46 Family History Mother CVA (cerebral vascular accident) Diabetes Heart disease Hypertension Father Diabetes Heart disease Pulmonary disease Surgical History History of back surgery Hx of CABG S/P peripheral artery bypass Status post right foot surgery Social History household members: spouse Smoking Status: Never smoker alcohol intake: never substance use type: does not use ROS Constitutional Constitutional: Denies chills, fever(s) or weight gain ENT HEENT: Denies headache(s), nasal congestion or nasal discharge Cardiovascular Cardiovascular: Denies chest pain or palpitations Respiratory/Chest Respiratory/Chest: Denies cough, excessive phlegm production or shortness of breath with exertion Gastrointestinal Gastrointestinal: Denies abdominal pain, nausea or vomiting Genitourinary Genitourinary: Denies dysuria Musculoskeletal Musculoskeletal: Denies joint pain or joint swelling Integumentary Integumentary: Denies rash or wounds Neurologic Neurologic: Denies focal weakness, numbness or tingling Psychiatric Psychiatric: Denies anxiety, auditory hallucinations, depression, homicidal ideation or suicidal ideation Vital Signs Vital Signs Vital Signs: 05/18/22 11:30 Temperature 97.5 F L Temperature Source Temporal Pulse Rate 93 Respiratory Rate 16 Blood Pressure 132/75 H Blood Pressure Mean 94 Blood Pressure Source Monitor Blood Pressure Position Sitting Blood Pressure Location Left Arm Oxygen Delivery Method Room Air Weight Weight: 81.647 kg Body Mass Index (BMI) 25.8 Physical Exam Const alert, oriented x3 and no apparent distress General Appearance: cooperative and comfortable HEENT normocephalic and head/scalp atraumatic Resp normal respiratory effort Effort and Inspection: able to speak in complete sentences Cardio regular rate and regular rhythm Skin Wounds: wounds noted Wound Narrative: as in clinical panel Psych mental status grossly normal, thought process normal, cooperative and affect normal Debridement Note Debridement Note Wound debrided: left second toe ulcer Laterality: Left Wound Grade/Stage: Valdez Grade 4 Type of Debridement: Excisional debridement Anesthesia Used: 4% Lidocaine Solution and 5% Lidocaine Gel Depth: Down to and including healthy tissue, in the subcutaneous layer, to muscle and to bone Percentage of wound debrided: 100 Instrument Used: #15 blade and Forceps Tissue Removed: yellow slough, devitalized tissue, bone Severity: Necrosis of Bone Amount of bleeding with debridement: Mild Bleeding Controlled with: Compression and gauze Patient tolerated procedure: Patient tolerated procedure well Post-Debridement Measurements and Additional Note: Post-Debridement Measurements/Treatment - Nurse 1 - General Ulcer Assessment Start: 05/18/22 11:30 Freq: Status: Active Protocol: KIRA Activity Type Activity Date Activity User E-sign Co-sign Detail Recorded Client Recorded Date Recorded By Document 05/18/22 11:30 [facility] [id number] 05/18/22 11:43 [facility] 05/18/22 11:30 - Today's Visit Information Type of service Initial Visit Arrival Mode Wheelchair Transfer Assistance Other Transfer Assist (Other) STAND BY Patient Identification Verified (Name & Yes ) Patient Requires Transmission-Based No Precautions Height and Weight Height 5 ft 10 in Weight 81.647 kg Weight in Pounds 180.0 lbs Weight Measurement Method Stated by Patient Body Mass Index (BMI) 25.8 BMI Classification Overweight BSA - Ryan 2.00 Vital Signs Temperature (97.8 F-99.1 F) 97.5 F L Temperature Source Temporal Pulse Rate (60-100) 93 Pulse Location Monitor Respiratory Rate (12-18) 16 Respiratory rate source Observation Oxygen Delivery Method Room Air Blood Pressure (90/60-120/80) 132/75 H Blood Pressure Mean 94 Source Monitor Position Sitting Blood Pressure Location Left Arm History Since Last Visit- (Skip if this is Patient's initial visit) Left Footwear Custom Shoe Right Footwear Custom Shoe Pain Scale: 0-10 Numeric Is Patient Pain Free? Yes WC - Nurse 1 - General Ulcer Measurement Start: 05/18/22 11:30 Freq: Status: Active Protocol: Activity Type Activity Date Activity User E-sign Co-sign Detail Recorded Client Recorded Date Recorded By Document 05/18/22 11:30 [facility] [id number] 05/18/22 11:43 [facility] 05/18/22 11:30 Wound Center Nurse 1 #20- L 2ND TOE -Combined with other wound No -Current Size (cm) - Length 0.6 -Current Size (cm) - Width 0.8 -Current Size (cm) - Depth 0.3 -Total Square Cm 0.48 -Date of Last Picture (Recall this 05/18/22 field) -Photo Taken Yes -Epithelialization None Present -Tunneling No -Undermining/Tunneling Yes -Undermining/Tunneling Starts (O'clock 12 ) -Undermining/Tunneling Ends (O'clock) 12 -Maximum Distance (cm) 0.2 -Circular Undermining No -Exudate Amt Medium -Exudate Type Serosanguineous -Wound Margin Distinct, Outline Attached -Granulation Amt Small (1-33%) -Granulation Quality Red -Slough/Fibrin Yes -Necrosis Amt Large (67-100%) -Necrotic Tissue Type Adherent Slough -Texture (Shahana-wound Skin Appearance) Assessed, Scarring -Moisture (Shahana-wound Skin Appearance) Assessed -Color (Shahana-wound Skin Appearance) Assessed -Temperature (Shahana-wound Skin No Abnormality Appearance) (Pt Warm) -Tenderness on Palpation (Shahana-wound No Skin Appearance) -Ulcer Cleansing Rinsed/ Irrigated with Saline -Foul Odor after Cleansing No -Anesthetic Used 5% Lidocaine Gel Right Calf (cm) 26.5 Right Ankle (cm) 17.5 Left Calf (cm) 27.2 Left Ankle (cm) 18.5 WC - Nurse 2 - General Ulcer CM Notes Start: 05/18/22 11:30 Freq: Status: Active Protocol: Activity Type Activity Date Activity User E-sign Co-sign Detail Recorded Client Recorded Date Recorded By Document 05/18/22 12:14 [id number] 05/18/22 12:33 MW 05/18/22 12:14 Wound Center Nurse 2 #20- L 2ND TOE -Time 12:14 -Correct Patient Yes -Correct Side, Site, Position Yes -Correct Procedure Yes -Procedure Performed Yes -Type of Procedure Debridement -Clinical Debridement Subcutaneous -Tissue Removed Subcutaneous -Post Debridement (cm) - Length 1.0 -Post Debridement (cm) - Width 1.1 -Post Debridement (cm) - Depth 0.1 -Total Square (Post) (cm) 1.10 -Area of Debridement (cm) - Length 1.0 -Area of Debridement (cm) - Width 1.1 -Total Square (Area) (cm) 1.10 -Tunneling No -Undermining/Tunneling No -Circular Undermining No -Wound/Ulcer Outcome Not Healed -Ulcer Cleansing Rinsed/ Irrigated with Saline -Foul Odor after Cleansing No -Bioengineered Tissue No -Bleeding Controlled with Pressure -Treatment Response Procedure Tolerated Well -Offloading No -Debridement - Subq, 1st 20sq cm Yes Pain Scale: 0-10 Numeric Is Patient Pain Free? Yes WC - Nurse 3 - General Ulcer D/C NN Start: 05/18/22 11:30 Freq: Status: Active Protocol: Activity Type Activity Date Activity User E-sign Co-sign Detail Recorded Client Recorded Date Recorded By Document 05/18/22 13:03 [facility] [id number] 05/18/22 13:06 [facility] 05/18/22 13:03 Wound Care Nurse 3 #20- L 2ND TOE -Ulcer Cleansing Rinsed/ Irrigated with Saline -Foul Odor after Cleansing No -Primary Dressing Applied NonAdherent Contact Layer, Silvercel -Other Dressing DRSG PER MT RN -Primary Dressing Covered/Secured with Dry Gauze & Roll Gauze, Secured with Tape -Silvercel 1 Treatment Response Procedure Tolerated Well Pain Scale: 0-10 Numeric Is Patient Pain Free? Yes WC - Visit Discharge Discharge Condition Stable Ambulatory Status Wheelchair Transportation Private Auto Accompanied by ; MICHAEL IN [employer] Facility Type Home Health Assessment/Plan Assessment/Plan (1) Hypokalemia: CODE(S): E87.6 - Hypokalemia (2) Hypertension: CODE(S): I10 - Essential (primary) hypertension (3) Diabetes mellitus: CODE(S): E11.9 - Type 2 diabetes mellitus without complications (4) Peripheral arterial occlusive disease: CODE(S): I77.9 - Disorder of arteries and arterioles, unspecified (5) Debility: CODE(S): R53.81 - Other malaise (6) Diabetes with ulcer of toe: CODE(S): E11.621 - Type 2 diabetes mellitus with foot ulcer; L97.509 - Non-pressure chronic ulcer of other part of unspecified foot with unspecified severity QUALIFIERS: Diabetes mellitus type: type 2 Laterality: right Non-pressure ulcer stage: with fat layer exposed Qualified Code(s): E11.621 - Type 2 diabetes mellitus with foot ulcer; L97.512 - Non-pressure chronic ulcer of other part of right foot with fat layer exposed (7) Stroke: CODE(S): I63.9 - Cerebral infarction, unspecified (8) Coronary artery disease: CODE(S): I25.10 - Atherosclerotic heart disease of koi coronary artery without angina pectoris (9) Depression: CODE(S): F32.A - Depression, unspecified (10) 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 At home wound-care instructions: Apply adaptic and Silvercell to wound and cover with gauze. Avoid pressure. Keep dressing clean and dry. Off-loading: The patient was instructed to avoid pressure and friction on the affected areas. Reposition every 2 hours at minimum. Avoid prolonged standing and/or dangling of legs. When seated, feet should be elevated at chest level. Frequent ambulation is encouraged. Diet: Patient encouraged to increase protein intake while taking caution to avoid high carbohydrate and/or sugar intake. Labs/cultures/imaging: Culture taken, bone biopsy taken. Xray ordered to evaluate for osteomyelitis. Discussed case with Dr. Alvarado who is his financial wellness coach and she recommended conservative treatment and against amputation. Follow-up: Return in 1 week for wound care follow up. Return sooner or report to the emergency room should symptoms worsen, or new symptoms arise. Note: [employer] speech recognition hard candy batch mixer software was used to create portions of this document. Sound-alike and misspelled words, as well as other hard candy batch mixer errors may be contained in the documentation.
[2022-05-25 11:28] VITALS: BP 110/63; PULSE 81; RESP 20; TEMP 36.4; BMI 25.8
--- NOTE | 2022-05-25 13:48 | PCM.WC.PN ---
History of Present Illness Date of Service: 05/25/22 Chief Complaint: Nonhealing ulcer left second toe, Valdez Grade 4 diabetic ulcer. History of Wound: Gibson is here for evaluation of an ulcer of his left second toe. This occurred after he injured his toe when he fell in the bathtub in January. It had been improving and then recently in the last 6-8 weeks it became worse and he was referred here for further treatment. He has [facility] Home Health services. He has been treating the ulcer with hydrogel and adaptic and covering with gauze. He has not been on any antibiotic treatment for the ulcer and no cultures have been done. He denies fever, chills, increased erythema or streaking erythema. There is moderate drainage. Denies odor. Objective Data Objective Data Vital Signs: Vital Signs Temp Pulse Resp BP O2 Del Method 97.6 F L 81 20 H 110/63 Room Air 05/25/22 11:28 05/25/22 11:28 05/25/22 11:28 05/25/22 11:28 05/18/22 11:30 Oxygen Delivery Method Room Air Weight: 81.647 kg Body Mass Index (BMI) 25.8 Lab / Micro Data Micro: Microbiology 05/18/22 12:30 Wound Abcess - Toe Gram Stain - Final 05/18/22 12:30 Wound Abcess - Toe Wound Culture - Final Coag Negative Staph 05/18/22 12:30 Wound Abcess - Toe Anaerobic Culture - Final Anaerobic cocci Physical Exam Const alert, oriented x3 and no apparent distress General Appearance: cooperative and comfortable HEENT normocephalic and head/scalp atraumatic Resp normal respiratory effort Effort and Inspection: able to speak in complete sentences Cardio regular rate and regular rhythm Skin Wounds: wounds noted Wound Narrative: as in clinical panel Psych mental status grossly normal, thought process normal, cooperative and affect normal Debridement Note Debridement Note Wound debrided: left second toe Laterality: Left Wound Grade/Stage: Valdez grade 3 Type of Debridement: Excisional debridement Anesthesia Used: 5% Lidocaine Gel Depth: Down to and including healthy tissue and in the subcutaneous layer Percentage of wound debrided: 100 Instrument Used: 3mm curette Tissue Removed: Yellow slough, devitalized tissue Severity: Fat Layer Exposed Amount of bleeding with debridement: Mild Bleeding Controlled with: Compression and gauze Patient tolerated procedure: Patient tolerated procedure well Post-Debridement Measurements and Additional Note: Post-Debridement Measurements/Treatment ITALO - Nurse 1 - General Ulcer Assessment Start: 05/18/22 11:30 Freq: Status: Active Protocol: KIRA Activity Type Activity Date Activity User E-sign Co-sign Detail Recorded Client Recorded Date Recorded By Document 05/18/22 11:30 [facility] [id number] 05/18/22 11:43 BMF Document 05/25/22 11:28 DL [id number] 05/25/22 11:33 DL 05/18/22 05/25/22 11:30 11:28 WC - Today's Visit Information Type of service Initial Visit Follow-up Visit (Physician/HOUSE MANAGER ) Arrival Mode Wheelchair Ambulatory, Wheelchair Transfer Assistance Other Manual Transfer Assist (Other) STAND BY x1 Patient Identification Verified (Name & Yes Yes ) Patient Requires Transmission-Based No No Precautions Finger Stick Blood Sugar(mg/dl) (if not checked indicated): Blood Sugar Stated by Patient Height and Weight Height 5 ft 10 in Weight 81.647 kg Weight in Pounds 180.0 lbs Weight Measurement Method Stated by Patient Body Mass Index (BMI) 25.8 25.8 BMI Classification Overweight Overweight BSA - Ryan 2.00 Vital Signs Temperature (97.8 F-99.1 F) 97.5 F L 97.6 F L Temperature Source Temporal Temporal Pulse Rate (60-100) 93 81 Pulse Location Monitor Monitor Respiratory Rate (12-18) 16 20 H Respiratory rate source Observation Observation Oxygen Delivery Method Room Air Blood Pressure (90/60-120/80) 132/75 H 110/63 Blood Pressure Mean (mm Hg) 94 78 Source Monitor Monitor Position Sitting Blood Pressure Location Left Arm History Since Last Visit- (Skip if this is Patient's initial visit) Have you changed medications since your No last visit? Any new allergies or adverse reactions No Had a fall/change in ADL's that may No increase risk of falls Signs or symptoms of abuse and/or No neglect since last visit Have you been in the hospital since your No last visit? Has dressing in place as prescribed No Has compression in place as prescribed N/A Has offloadiing in place as prescribed Yes Experienced any changes in pain level or No management Left Footwear Custom Shoe Right Footwear Custom Shoe Pain Scale: 0-10 Numeric Is Patient Pain Free? Yes Yes - Nurse 1 - General Ulcer Measurement Start: 05/18/22 11:30 Freq: Status: Active Protocol: Activity Type Activity Date Activity User E-sign Co-sign Detail Recorded Client Recorded Date Recorded By Document 05/18/22 11:30 [facility] [id number] 05/18/22 11:43 BM Document 05/25/22 11:28 DL [id number] 05/25/22 11:33 DL 05/18/22 05/25/22 11:30 11:28 Wound Center Nurse 1 #20- L 2ND TOE -Combined with other wound No -Current Size (cm) - Length 0.6 1 -Current Size (cm) - Width 0.8 0.8 -Current Size (cm) - Depth 0.3 0.1 -Total Square Cm 0.48 0.8 -Date of Last Picture (Recall this 05/18/22 field) -Photo Taken Yes No -Epithelialization None Present -Tunneling No -Undermining/Tunneling Yes -Undermining/Tunneling Starts (O'clock 12 ) -Undermining/Tunneling Ends (O'clock) 12 -Maximum Distance (cm) 0.2 -Circular Undermining No -Exudate Amt Medium Medium -Exudate Type Serosanguineous Serous -Wound Margin Distinct, Distinct, Outline Outline Attached Attached -Granulation Amt Small (1-33%) Small (1-33%) -Granulation Quality Red Red -Slough/Fibrin Yes -Necrosis Amt Large (67-100%) Small (1-33%) -Necrotic Tissue Type Adherent Slough Adherent Slough -Structure Exposed N/A -Texture (Shahana-wound Skin Appearance) Assessed, Scarring Scarring -Moisture (Shahana-wound Skin Appearance) Assessed No Abnormality -Color (Shahana-wound Skin Appearance) Assessed Hemosiderin Staining,Rubor -Temperature (Shahana-wound Skin No Abnormality No Abnormality Appearance) (Pt Warm) (Pt Warm) -Tenderness on Palpation (Shahana-wound No No Skin Appearance) -Ulcer Cleansing Rinsed/ Rinsed/ Irrigated with Irrigated with Saline Saline -Foul Odor after Cleansing No No -Anesthetic Used 5% Lidocaine 5% Lidocaine Gel Gel Right Calf (cm) 26.5 Right Ankle (cm) 17.5 Left Calf (cm) 27.2 Left Ankle (cm) 18.5 WC - Nurse 2 - General Ulcer CM Notes Start: 05/18/22 11:30 Freq: Status: Active Protocol: Activity Type Activity Date Activity User E-sign Co-sign Detail Recorded Client Recorded Date Recorded By Document 05/18/22 12:14 MW [id number] 05/18/22 12:33 MW Document 05/25/22 12:26 MW [id number] 05/25/22 12:41 MW 05/18/22 05/25/22 12:14 12:26 Wound Center Nurse 2 #21 right pat -Time 12:33 -Correct Patient Yes -Correct Side, Site, Position Yes -Correct Procedure Yes -Procedure Performed No -Post Debridement (cm) - Length 3.0 -Post Debridement (cm) - Width 1.5 -Post Debridement (cm) - Depth 0.1 -Total Square (Post) (cm) 4.50 #20- L 2ND TOE -Time 12:14 12:33 -Correct Patient Yes Yes -Correct Side, Site, Position Yes Yes -Correct Procedure Yes Yes -Procedure Performed Yes Yes -Type of Procedure Debridement Debridement -Clinical Debridement Subcutaneous Subcutaneous -Tissue Removed Subcutaneous Subcutaneous -Post Debridement (cm) - Length 1.0 1.0 -Post Debridement (cm) - Width 1.1 1.1 -Post Debridement (cm) - Depth 0.1 0.1 -Total Square (Post) (cm) 1.10 1.10 -Area of Debridement (cm) - Length 1.0 1.0 -Area of Debridement (cm) - Width 1.1 1.1 -Total Square (Area) (cm) 1.10 1.10 -Tunneling No No -Undermining/Tunneling No No -Circular Undermining No No -Wound/Ulcer Outcome Not Healed Not Healed -Ulcer Cleansing Rinsed/ Rinsed/ Irrigated with Irrigated with Saline Saline -Foul Odor after Cleansing No No -Bioengineered Tissue No No -Bleeding Controlled with Pressure Pressure -Treatment Response Procedure Procedure Tolerated Well Tolerated Well -Offloading No No -Debridement - Subq, 1st 20sq cm Yes Yes Pain Scale: 0-10 Numeric Is Patient Pain Free? Yes Yes WC - Nurse 3 - General Ulcer D/C NN Start: 05/18/22 11:30 Freq: Status: Active Protocol: Activity Type Activity Date Activity User E-sign Co-sign Detail Recorded Client Recorded Date Recorded By Document 05/18/22 13:03 [facility] [id number] 05/18/22 13:06 [facility] Document 05/25/22 12:57 RB [id number] 05/25/22 12:58 RB 05/18/22 05/25/22 13:03 12:57 Wound Care Nurse 3 #21 right pat -Primary Dressing Applied Mepilex Border -Mepilex Border 1 #20- L 2ND TOE -Ulcer Cleansing Rinsed/ Wound Cleanser Irrigated with Saline -Foul Odor after Cleansing No -Primary Dressing Applied NonAdherent NonAdherent Contact Layer, Contact Layer, Silvercel Promogran Verenice Matter -Other Dressing DRSG PER MT RN -Primary Dressing Covered/Secured with Dry Gauze & Dry Gauze, Roll Gauze, Secured with Secured with Tape Tape -Promogran Verenice Matter 1 -Silvercel 1 Treatment Response Procedure Procedure Tolerated Well Tolerated Well Pain Scale: 0-10 Numeric Is Patient Pain Free? Yes Yes WC - Visit Discharge Discharge Condition Stable Stable Ambulatory Status Wheelchair Wheelchair Transportation Private Auto Private Auto Accompanied by ; MICHAEL IN [facility] Medication Reconcilliation completed & No provided to patient/care provider Clinical Summary of Care Provided Yes Facility Type Home Health Additional Wound Wound debrided: right pat Laterality: Right Operative Diagnosis: No debridement performed today Assessment/Plan Assessment/Plan (1) Hypokalemia: CODE(S): E87.6 - Hypokalemia (2) Hypertension: CODE(S): I10 - Essential (primary) hypertension (3) Diabetes mellitus: CODE(S): E11.9 - Type 2 diabetes mellitus without complications (4) Peripheral arterial occlusive disease: CODE(S): I77.9 - Disorder of arteries and arterioles, unspecified (5) Debility: CODE(S): R53.81 - Other malaise (6) Diabetes with ulcer of toe: CODE(S): E11.621 - Type 2 diabetes mellitus with foot ulcer; L97.509 - Non-pressure chronic ulcer of other part of unspecified foot with unspecified severity QUALIFIERS: Diabetes mellitus type: type 2 Laterality: right Non-pressure ulcer stage: with fat layer exposed Qualified Code(s): E11.621 - Type 2 diabetes mellitus with foot ulcer; L97.512 - Non-pressure chronic ulcer of other part of right foot with fat layer exposed (7) Stroke: CODE(S): I63.9 - Cerebral infarction, unspecified (8) Coronary artery disease: CODE(S): I25.10 - Atherosclerotic heart disease of [place] coronary artery without angina pectoris (9) Depression: CODE(S): F32.A - Depression, unspecified (10) 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 At home wound-care instructions: Apply adaptic and Verenice to wound and cover with gauze. Avoid pressure. Keep dressing clean and dry. Right pat will be covered with foam silicone bordered dressing to pad and protect his pat. Off-loading: The patient was instructed to avoid pressure and friction on the affected areas. Reposition every 2 hours at minimum. Avoid prolonged standing and/or dangling of legs. When seated, feet should be elevated at chest level. Frequent ambulation is encouraged. Plan to remove top of shoe to decrease pressure. Diet: Patient encouraged to increase protein intake while taking caution to avoid high carbohydrate and/or sugar intake. Labs/cultures/imaging: Culture taken and + for infection. He is almost done with Levaquin and will start Flagyl, bone biopsy negative for osteomyelitis. Xray negative for osteomyelitis. Due to the complexity of his comorbidities and his lack of improvement over the last 3 months of traditional wound care, he would benefit from treatment with advanced wound care such as Epifix in order to heal his ulcer of his left second toe. Discussed case with Dr. Alvarado who is his honey processor and she recommended conservative treatment and against amputation. Follow-up: Return in 1 week for wound care follow up. Return sooner or report to the emergency room should symptoms worsen, or new symptoms arise. Note: [employer] speech recognition decontamination worker software was used to create portions of this document. Sound-alike and misspelled words, as well as other decontamination worker errors may be contained in the documentation.
[2022-06-01 11:43] VITALS: TEMP 35.5; BMI 25.8
--- NOTE | 2022-06-01 14:21 | PCM.WC.PN ---
History of Present Illness Date of Service: 06/01/22 Chief Complaint: Nonhealing ulcer left second toe, Valdez Grade 4 diabetic ulcer. History of Wound: Gibson is here for evaluation of an ulcer of his left second toe. This occurred after he injured his toe when he fell in the bathtub in January. It had been improving and then recently in the last 6-8 weeks it became worse and he was referred here for further treatment. He has [facility] services. He has been treating the ulcer with hydrogel and adaptic and covering with gauze. He has not been on any antibiotic treatment for the ulcer and no cultures have been done. He denies fever, chills, increased erythema or streaking erythema. There is moderate drainage. Denies odor. Objective Data Objective Data Vital Signs: Vital Signs Temp Pulse Resp BP O2 Del Method 96 F L 81 20 H 110/63 Room Air 06/01/22 11:43 05/25/22 11:28 05/25/22 11:28 05/25/22 11:28 05/18/22 11:30 Oxygen Delivery Method Room Air Weight: 81.647 kg Body Mass Index (BMI) 25.8 Lab / Micro Data Micro: Microbiology 05/18/22 12:30 Wound Abcess - Toe Gram Stain - Final 05/18/22 12:30 Wound Abcess - Toe Wound Culture - Final Coag Negative Staph 05/18/22 12:30 Wound Abcess - Toe Anaerobic Culture - Final Anaerobic cocci Physical Exam Const alert, oriented x3 and no apparent distress General Appearance: cooperative and comfortable HEENT normocephalic and head/scalp atraumatic Resp normal respiratory effort Effort and Inspection: able to speak in complete sentences Cardio regular rate and regular rhythm Skin Wounds: wounds noted Wound Narrative: as in clinical panel Psych mental status grossly normal, thought process normal, cooperative and affect normal Debridement Note Debridement Note Wound debrided: left second toe Laterality: Left Wound Grade/Stage: Valdez grade 3 Type of Debridement: Excisional debridement Anesthesia Used: 5% Lidocaine Gel Depth: Down to and including healthy tissue and in the subcutaneous layer Percentage of wound debrided: 100 Instrument Used: 3mm curette Tissue Removed: Yellow slough, devitalized tissue Severity: Fat Layer Exposed Amount of bleeding with debridement: Mild Bleeding Controlled with: Compression and gauze Patient tolerated procedure: Patient tolerated procedure well Post-Debridement Measurements and Additional Note: Post-Debridement Measurements/Treatment WC - Nurse 1 - General Ulcer Assessment Start: 05/18/22 11:30 Freq: Status: Active Protocol: KIRA Activity Type Activity Date Activity User E-sign Co-sign Detail Recorded Client Recorded Date Recorded By Document 05/18/22 11:30 BMF [id number] 05/18/22 11:43 BMF Document 05/25/22 11:28 DL [id number] 05/25/22 11:33 DL Document 06/01/22 11:43 AK [id number] 06/01/22 11:46 AK 05/18/22 05/25/22 06/01/22 11:30 11:28 11:43 WC - Today's Visit Information Type of service Initial Visit Follow-up Visit Follow-up Visit (Physician/GRAPHIC DESIGN INTERN (Physician/GRAPHIC DESIGN INTERN ) ) Arrival Mode Wheelchair Ambulatory, Wheelchair Wheelchair Transfer Assistance Other Manual Transfer Assist (Other) STAND BY x1 Patient Identification Verified (Name & Yes Yes Yes ) Patient Requires Transmission-Based No No No Precautions Safety Precautions NA Finger Stick Blood Sugar(mg/dl) (if not checked indicated): Blood Sugar Stated by Patient Height and Weight Height 5 ft 10 in Weight 81.647 kg Weight in Pounds 180.0 lbs Weight Measurement Method Stated by Patient Body Mass Index (BMI) 25.8 25.8 25.8 BMI Classification Overweight Overweight Overweight BSA - Ryan 2.00 Vital Signs Temperature (97.8 F-99.1 F) 97.5 F L 97.6 F L 96 F L Temperature Source Temporal Temporal Temporal Pulse Rate (60-100) 93 81 Pulse Location Monitor Monitor Respiratory Rate (12-18) 16 20 H Respiratory rate source Observation Observation Oxygen Delivery Method Room Air Blood Pressure (90/60-120/80) 132/75 H 110/63 Blood Pressure Mean (mm Hg) 94 78 Source Monitor Monitor Position Sitting Blood Pressure Location Left Arm History Since Last Visit- (Skip if this is Patient's initial visit) Have you changed medications since your No No last visit? Any new allergies or adverse reactions No No Had a fall/change in ADL's that may No Yes increase risk of falls Signs or symptoms of abuse and/or No No neglect since last visit Have you been in the hospital since your No No last visit? Has dressing in place as prescribed No Yes Has compression in place as prescribed N/A N/A Has offloadiing in place as prescribed Yes N/A Experienced any changes in pain level or No No management Left Footwear Custom Shoe Regular Shoe Right Footwear Custom Shoe Custom Shoe Pain Scale: 0-10 Numeric Is Patient Pain Free? Yes Yes Yes WC - Nurse 1 - General Ulcer Measurement Start: 05/18/22 11:30 Freq: Status: Active Protocol: Activity Type Activity Date Activity User E-sign Co-sign Detail Recorded Client Recorded Date Recorded By Document 05/18/22 11:30 BMF [id number] 05/18/22 11:43 BMF Document 05/25/22 11:28 DL [id number] 05/25/22 11:33 DL Document 06/01/22 11:43 AK [id number] 06/01/22 11:46 AK 05/18/22 05/25/22 06/01/22 11:30 11:28 11:43 Wound Center Nurse 1 #21 right pat -Combined with other wound No -Current Size (cm) - Length 11 -Current Size (cm) - Width 0.8 -Current Size (cm) - Depth 0.1 -Total Square Cm 8.8 -Date of Last Picture (Recall this 06/01/22 field) -Photo Taken Yes -Tunneling No -Undermining/Tunneling No -Circular Undermining No -Change in Wound Grade/Stage No -Exudate Amt Small -Exudate Type Serosanguineous -Wound Margin Distinct, Outline Attached -Granulation Amt None Present (0 %) -Granulation Quality [place] -Slough/Fibrin No -Necrosis Amt Medium (34-66%) -Structure Exposed N/A -Texture (Shahana-wound Skin Appearance) No Abnormality, Assessed -Moisture (Shahana-wound Skin Appearance) No Abnormality, Assessed -Color (Shahana-wound Skin Appearance) No Abnormality, Assessed -Temperature (Shahana-wound Skin No Abnormality Appearance) (Pt Warm) -Tenderness on Palpation (Shahana-wound No Skin Appearance) -Ulcer Cleansing Rinsed/ Irrigated with Saline -Foul Odor after Cleansing No -Anesthetic Used 5% Lidocaine Gel #20- L 2ND TOE -Combined with other wound No No -Current Size (cm) - Length 0.6 1 1.5 -Current Size (cm) - Width 0.8 0.8 1.7 -Current Size (cm) - Depth 0.3 0.1 0.1 -Total Square Cm 0.48 0.8 2.55 -Date of Last Picture (Recall this 05/18/22 06/01/22 field) -Photo Taken Yes No Yes -Epithelialization None Present -Tunneling No No -Undermining/Tunneling Yes No -Undermining/Tunneling Starts (O'clock 12 ) -Undermining/Tunneling Ends (O'clock) 12 -Maximum Distance (cm) 0.2 -Circular Undermining No No -Change in Wound Grade/Stage No -Exudate Amt Medium Medium Medium -Exudate Type Serosanguineous Serous Serosanguineous -Wound Margin Distinct, Distinct, Distinct, Outline Outline Outline Attached Attached Attached -Granulation Amt Small (1-33%) Small (1-33%) Medium (34-66%) -Granulation Quality Red [place] -Slough/Fibrin Yes Yes -Necrosis Amt Large (67-100%) Small (1-33%) Medium (34-66%) -Necrotic Tissue Type Adherent Slough Adherent Slough Adherent Slough -Structure Exposed N/A N/A -Texture (Shahana-wound Skin Appearance) Assessed, Scarring No Abnormality, Scarring Assessed -Moisture (Shahana-wound Skin Appearance) Assessed No Abnormality No Abnormality, Assessed -Color (Shahana-wound Skin Appearance) Assessed Hemosiderin No Abnormality, Staining,Rubor Assessed -Temperature (Shahana-wound Skin No Abnormality No Abnormality No Abnormality Appearance) (Pt Warm) (Pt Warm) (Pt Warm) -Tenderness on Palpation (Shahana-wound No No No Skin Appearance) -Ulcer Cleansing Rinsed/ Rinsed/ Rinsed/ Irrigated with Irrigated with Irrigated with Saline Saline Saline -Foul Odor after Cleansing No No No -Anesthetic Used 5% Lidocaine 5% Lidocaine 5% Lidocaine Gel Gel Gel Right Calf (cm) 26.5 Right Ankle (cm) 17.5 Left Calf (cm) 27.2 Left Ankle (cm) 18.5 WC - Nurse 2 - General Ulcer CM Notes Start: 05/18/22 11:30 Freq: Status: Active Protocol: Activity Type Activity Date Activity User E-sign Co-sign Detail Recorded Client Recorded Date Recorded By Document 05/18/22 12:14 MW [id number] 05/18/22 12:33 MW Document 05/25/22 12:26 MW [id number] 05/25/22 12:41 MW Document 06/01/22 11:56 MW [id number] 06/01/22 12:14 MW 05/18/22 05/25/22 06/01/22 12:14 12:26 11:56 Wound Center Nurse 2 #21 right pat -Time 12:33 11:56 -Correct Patient Yes Yes -Correct Side, Site, Position Yes Yes -Correct Procedure Yes Yes -Procedure Performed No No -Post Debridement (cm) - Length 3.0 11.0 -Post Debridement (cm) - Width 1.5 0.8 -Post Debridement (cm) - Depth 0.1 0.1 -Total Square (Post) (cm) 4.50 8.80 -Tunneling No -Undermining/Tunneling No -Circular Undermining No -Wound/Ulcer Outcome Not Healed #20- L 2ND TOE -Time 12:14 12:33 11:57 -Correct Patient Yes Yes Yes -Correct Side, Site, Position Yes Yes Yes -Correct Procedure Yes Yes Yes -Procedure Performed Yes Yes Yes -Type of Procedure Debridement Debridement Debridement -Clinical Debridement Subcutaneous Subcutaneous Subcutaneous -Tissue Removed Subcutaneous Subcutaneous Subcutaneous -Post Debridement (cm) - Length 1.0 1.0 1.0 -Post Debridement (cm) - Width 1.1 1.1 1.2 -Post Debridement (cm) - Depth 0.1 0.1 0.1 -Total Square (Post) (cm) 1.10 1.10 1.20 -Area of Debridement (cm) - Length 1.0 1.0 1.0 -Area of Debridement (cm) - Width 1.1 1.1 1.2 -Total Square (Area) (cm) 1.10 1.10 1.20 -Tunneling No No No -Undermining/Tunneling No No No -Circular Undermining No No No -Wound/Ulcer Outcome Not Healed Not Healed Not Healed -Ulcer Cleansing Rinsed/ Rinsed/ Rinsed/ Irrigated with Irrigated with Irrigated with Saline Saline Saline -Foul Odor after Cleansing No No No -Bioengineered Tissue No No Yes -Type of Bioengineered Tissue Epifix 18mm Disc -Expiration Date 02/15/27 -Product Lot Number [id number] -Percent Used 100 -Lot number of Saline Used [id number] -Bleeding Controlled with Pressure Pressure Pressure -Treatment Response Procedure Procedure Procedure Tolerated Well Tolerated Well Tolerated Well -Offloading No No No -Debridement - Subq, 1st 20sq cm Yes Yes No -Apply Skin Sub - 1st 25 sq cm - Feet 1 -Epifix 18mm Disc 3 Pain Scale: 0-10 Numeric Is Patient Pain Free? Yes Yes Yes - Nurse 3 - General Ulcer D/C NN Start: 05/18/22 11:30 Freq: Status: Active Protocol: Activity Type Activity Date Activity User E-sign Co-sign Detail Recorded Client Recorded Date Recorded By Document 05/18/22 13:03 [facility] [id number] 05/18/22 13:06 [facility] Document 05/25/22 12:57 [id number] 05/25/22 12:58 Document 06/01/22 12:23 [id number] 06/01/22 12:24 RB 05/18/22 05/25/22 06/01/22 13:03 12:57 12:23 Wound Care Nurse 3 #21 right pat -Primary Dressing Applied Mepilex Border Mepilex Border -Mepilex Border 1 1 #20- L 2ND TOE -Ulcer Cleansing Rinsed/ Wound Cleanser Irrigated with Saline -Foul Odor after Cleansing No -Primary Dressing Applied NonAdherent NonAdherent Contact Layer, Contact Layer, Silvercel Promogran Verenice Matter -Other Dressing DRSG PER MT RN -Primary Dressing Covered/Secured with Dry Gauze & Dry Gauze, Dry Gauze, Roll Gauze, Secured with Secured with Secured with Tape Tape Tape -Promogran Verenice Matter 1 -Silvercel 1 Treatment Response Procedure Procedure Procedure Tolerated Well Tolerated Well Tolerated Well Pain Scale: 0-10 Numeric Is Patient Pain Free? Yes Yes Yes - Visit Discharge Discharge Condition Stable Stable Stable Ambulatory Status Wheelchair Wheelchair Wheelchair Transportation Private Auto Private Auto Private Auto Accompanied by ; MICHAEL IN [place] Medication Reconcilliation completed & No No provided to patient/care provider Clinical Summary of Care Provided Yes Yes Facility Type Home Health Additional Wound Wound debrided: right pat Laterality: Right Operative Diagnosis: No debridement performed today Assessment/Plan Assessment/Plan (1) Hypokalemia: CODE(S): E87.6 - Hypokalemia (2) Hypertension: CODE(S): I10 - Essential (primary) hypertension (3) Diabetes mellitus: CODE(S): E11.9 - Type 2 diabetes mellitus without complications (4) Peripheral arterial occlusive disease: CODE(S): I77.9 - Disorder of arteries and arterioles, unspecified (5) Debility: CODE(S): R53.81 - Other malaise (6) Diabetes with ulcer of toe: CODE(S): E11.621 - Type 2 diabetes mellitus with foot ulcer; L97.509 - Non-pressure chronic ulcer of other part of unspecified foot with unspecified severity QUALIFIERS: Diabetes mellitus type: type 2 Laterality: right Non-pressure ulcer stage: with fat layer exposed Qualified Code(s): E11.621 - Type 2 diabetes mellitus with foot ulcer; L97.512 - Non-pressure chronic ulcer of other part of right foot with fat layer exposed (7) Stroke: CODE(S): I63.9 - Cerebral infarction, unspecified (8) Coronary artery disease: CODE(S): I25.10 - Atherosclerotic heart disease of [place] coronary artery without angina pectoris (9) Depression: CODE(S): F32.A - Depression, unspecified (10) 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 At home wound-care instructions: Epifix #1 was applied to the left second toe ulcer and rehydrated with hydrogel and covered with adaptic touch and secured with steri-strips and covered with gauze. He was instructed to keep the dressing clean, dry and intact. The outer dressing can be changed if soiled or gets wet. Home Health will change the outer dressing on Saturday. Keep dressing clean and dry. Right pat will be covered with foam silicone bordered dressing to pad and protect his pat. Off-loading: The patient was instructed to avoid pressure and friction on the affected areas. Reposition every 2 hours at minimum. Avoid prolonged standing and/or dangling of legs. When seated, feet should be elevated at chest level. Frequent ambulation is encouraged. Plan to remove top of shoe to decrease pressure. Diet: Patient encouraged to increase protein intake while taking caution to avoid high carbohydrate and/or sugar intake. Labs/cultures/imaging: Culture taken and + for infection. He completed antibiotic treatment with Levaquin and Flagyl. Bone biopsy negative for osteomyelitis. Xray negative for osteomyelitis. Due to the complexity of his comorbidities and his lack of improvement over the last 3 months of traditional wound care, he would benefit from treatment with advanced wound care such as Epifix in order to heal his ulcer of his left second toe. Discussed case with Dr. Alvarado who is his web administrator and she recommended conservative treatment and against amputation. Follow-up: Return in 2 weeks for wound care follow up. Return sooner or report to the emergency room should symptoms worsen, or new symptoms arise. Note: [employer] speech recognition nurse quality software was used to create portions of this document. Sound-alike and misspelled words, as well as other nurse quality errors may be contained in the documentation.
[2022-06-15 11:13] VITALS: BP 153/72; PULSE 89; RESP 16; TEMP 36; BMI 25.8
--- NOTE | 2022-06-15 13:51 | PN.PCM_ITS ---
History of Present Illness Date of Service: 06/15/22 Chief Complaint: Nonhealing ulcer left second toe, Valdez Grade 4 diabetic ulcer. History of Wound: Gibson is here for evaluation of an ulcer of his left second toe. This occurred after he injured his toe when he fell in the bathtub in January. It had been improving and then recently in the last 6-8 weeks it became worse and he was referred here for further treatment. He has [facility] services. He has been treating the ulcer with hydrogel and adaptic and covering with gauze. He has not been on any antibiotic treatment for the ulcer and no cultures have been done prior to being seen at the wound center. Wound culture done at initial visit was positive for infection and he was treated with Levaquin and Flagyl. Xrays and bone biopsy done did not show osteomyelitis even with exposure of the bone. Dr. Alvarado was consulted regarding possible surgical treatment and given his vascular history and his DM, she advised against surgery and recommended conservative treatment and offloading of the area by possibly removing part of his shoe above the ulcer. He denies fever, chills, increased erythema or streaking erythema. There is moderate drainage. Denies odor. Progress of Wound: Ray returns for follow up of ulcer of left second toe. Epifix was applied 2 weeks ago and he tolerated this treatment well. He unfortunately has had multiple falls at home over the last 2 weeks. Daily over the last week. He has multiple abrasions to his lower legs and has had increased weakness. 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 He denies any fever, increased drainage, increased erythema or pain. Objective Data Objective Data Vital Signs: Vital Signs Temp Pulse Resp BP O2 Del Method 96.8 F L 89 16 153/72 H Room Air 06/15/22 11:13 06/15/22 11:13 06/15/22 11:13 06/15/22 11:13 05/18/22 11:30 Oxygen Delivery Method Room Air Weight: 81.647 kg Body Mass Index (BMI) 25.8 Lab / Micro Data Micro: Microbiology 05/18/22 12:30 Wound Abcess - Toe Gram Stain - Final 05/18/22 12:30 Wound Abcess - Toe Wound Culture - Final Coag Negative Staph 05/18/22 12:30 Wound Abcess - Toe Anaerobic Culture - Final Anaerobic cocci Physical Exam Const alert, oriented x3 and no apparent distress General Appearance: cooperative and comfortable HEENT normocephalic and head/scalp atraumatic Resp normal respiratory effort Effort and Inspection: able to speak in complete sentences Cardio regular rate and regular rhythm Skin Wounds: wounds noted Wound Narrative: as in clinical panel Psych mental status grossly normal, thought process normal, cooperative and affect normal Debridement Note Debridement Note Wound debrided: left second toe ulcer Laterality: Left Wound Grade/Stage: Valdez grade 3 Type of Debridement: Excisional debridement Anesthesia Used: 4% Lidocaine Solution Depth: Down to and including healthy tissue, in the subcutaneous layer, to muscle and to bone Percentage of wound debrided: 100 Instrument Used: 3mm curette Tissue Removed: Yellow slough, devitalized tissue Severity: Fat Layer Exposed Amount of bleeding with debridement: Mild Bleeding Controlled with: Compression and gauze Patient tolerated procedure: Patient tolerated procedure well Post-Debridement Measurements and Additional Note: Post-Debridement Measurements/Treatment WC - Nurse 1 - General Ulcer Assessment Start: 05/18/22 11:30 Freq: Status: Active Protocol: KIRA Activity Type Activity Date Activity User E-sign Co-sign Detail Recorded Client Recorded Date Recorded By Document 05/18/22 11:30 [facility] [id number] 05/18/22 11:43 BM Document 05/25/22 11:28 DL [id number] 05/25/22 11:33 DL Document 06/01/22 11:43 AK [id number] 06/01/22 11:46 AK Document 06/15/22 11:13 ML [id number] 06/15/22 11:23 ML 05/18/22 05/25/22 06/01/22 11:30 11:28 11:43 - Today's Visit Information Type of service Initial Visit Follow-up Visit Follow-up Visit (Physician/PAPER PLATE MACHINE TENDER (Physician/PAPER PLATE MACHINE TENDER ) ) Arrival Mode Wheelchair Ambulatory, Wheelchair Wheelchair Transfer Assistance Other Manual Transfer Assist (Other) STAND BY x1 Patient Identification Verified (Name & Yes Yes Yes ) Patient Requires Transmission-Based No No No Precautions Safety Precautions NA Finger Stick Blood Sugar(mg/dl) (if not checked indicated): Blood Sugar Stated by Patient Height and Weight Height 5 ft 10 in Weight 81.647 kg Weight in Pounds 180.0 lbs Weight Measurement Method Stated by Patient Body Mass Index (BMI) 25.8 25.8 25.8 BMI Classification Overweight Overweight Overweight BSA - Ryan 2.00 Vital Signs Temperature (97.8 F-99.1 F) 97.5 F L 97.6 F L 96 F L Temperature Source Temporal Temporal Temporal Pulse Rate (60-100) 93 81 Pulse Location Monitor Monitor Respiratory Rate (12-18) 16 20 H Respiratory rate source Observation Observation Oxygen Delivery Method Room Air Blood Pressure (90/60-120/80) 132/75 H 110/63 Blood Pressure Mean (mm Hg) 94 78 Source Monitor Monitor Position Sitting Blood Pressure Location Left Arm History Since Last Visit- (Skip if this is Patient's initial visit) Have you changed medications since your No No last visit? Any new allergies or adverse reactions No No Had a fall/change in ADL's that may No Yes increase risk of falls Signs or symptoms of abuse and/or No No neglect since last visit Have you been in the hospital since your No No last visit? Has dressing in place as prescribed No Yes Has compression in place as prescribed N/A N/A Has offloadiing in place as prescribed Yes N/A Experienced any changes in pain level or No No management Left Footwear Custom Shoe Regular Shoe Right Footwear Custom Shoe Custom Shoe Pain Scale: 0-10 Numeric Is Patient Pain Free? Yes Yes Yes 06/15/22 11:13 WC - Today's Visit Information Type of service Follow-up Visit (Physician/PAPER PLATE MACHINE TENDER ) Arrival Mode Wheelchair Transfer Assistance None Transfer Assist (Other) Patient Identification Verified (Name & Yes ) Patient Requires Transmission-Based No Precautions Safety Precautions NA Finger Stick Blood Sugar(mg/dl) (if indicated): Blood Sugar Height and Weight Height Weight Weight in Pounds Weight Measurement Method Body Mass Index (BMI) 25.8 BMI Classification Overweight BSA - Ryan Vital Signs Temperature (97.8 F-99.1 F) 96.8 F L Temperature Source Temporal Pulse Rate (60-100) 89 Pulse Location Monitor Respiratory Rate (12-18) 16 Respiratory rate source Observation Oxygen Delivery Method Blood Pressure (90/60-120/80) 153/72 H Blood Pressure Mean (mm Hg) 99 Source Monitor Position Sitting Blood Pressure Location Left Arm History Since Last Visit- (Skip if this is Patient's initial visit) Have you changed medications since your No last visit? Any new allergies or adverse reactions No Had a fall/change in ADL's that may No increase risk of falls Signs or symptoms of abuse and/or No neglect since last visit Have you been in the hospital since your No last visit? Has dressing in place as prescribed Yes Has compression in place as prescribed N/A Has offloadiing in place as prescribed N/A Experienced any changes in pain level or No management Left Footwear Regular Shoe Right Footwear Regular Shoe Pain Scale: 0-10 Numeric Is Patient Pain Free? Yes WC - Nurse 1 - General Ulcer Measurement Start: 05/18/22 11:30 Freq: Status: Active Protocol: Activity Type Activity Date Activity User E-sign Co-sign Detail Recorded Client Recorded Date Recorded By Document 05/18/22 11:30 [facility] [id number] 05/18/22 11:43 BMF Document 05/25/22 11:28 DL [id number] 05/25/22 11:33 DL Document 06/01/22 11:43 AK [id number] 06/01/22 11:46 AK Document 06/15/22 11:13 ML [id number] 06/15/22 11:23 ML 05/18/22 05/25/22 06/01/22 11:30 11:28 11:43 Wound Center Nurse 1 #21 right pat -Combined with other wound No -Current Size (cm) - Length 11 -Current Size (cm) - Width 0.8 -Current Size (cm) - Depth 0.1 -Total Square Cm 8.8 -Date of Last Picture (Recall this 06/01/22 field) -Photo Taken Yes -Tunneling No -Undermining/Tunneling No -Circular Undermining No -Change in Wound Grade/Stage No -Exudate Amt Small -Exudate Type Serosanguineous -Wound Margin Distinct, Outline Attached -Granulation Amt None Present (0 %) -Granulation Quality [place] -Slough/Fibrin No -Necrosis Amt Medium (34-66%) -Structure Exposed N/A -Texture (Shahana-wound Skin Appearance) No Abnormality, Assessed -Moisture (Shahana-wound Skin Appearance) No Abnormality, Assessed -Color (Shahana-wound Skin Appearance) No Abnormality, Assessed -Temperature (Shahana-wound Skin No Abnormality Appearance) (Pt Warm) -Tenderness on Palpation (Shahana-wound No Skin Appearance) -Ulcer Cleansing Rinsed/ Irrigated with Saline -Foul Odor after Cleansing No -Anesthetic Used 5% Lidocaine Gel #20- L 2ND TOE -Combined with other wound No No -Current Size (cm) - Length 0.6 1 1.5 -Current Size (cm) - Width 0.8 0.8 1.7 -Current Size (cm) - Depth 0.3 0.1 0.1 -Total Square Cm 0.48 0.8 2.55 -Date of Last Picture (Recall this 05/18/22 06/01/22 field) -Photo Taken Yes No Yes -Epithelialization None Present -Tunneling No No -Undermining/Tunneling Yes No -Undermining/Tunneling Starts (O'clock 12 ) -Undermining/Tunneling Ends (O'clock) 12 -Maximum Distance (cm) 0.2 -Circular Undermining No No -Change in Wound Grade/Stage No -Exudate Amt Medium Medium Medium -Exudate Type Serosanguineous Serous Serosanguineous -Wound Margin Distinct, Distinct, Distinct, Outline Outline Outline Attached Attached Attached -Granulation Amt Small (1-33%) Small (1-33%) Medium (34-66%) -Granulation Quality [place] -Slough/Fibrin Yes Yes -Necrosis Amt Large (67-100%) Small (1-33%) Medium (34-66%) -Necrotic Tissue Type Adherent Slough Adherent Slough Adherent Slough -Structure Exposed N/A N/A -Texture (Shahana-wound Skin Appearance) Assessed, Scarring No Abnormality, Scarring Assessed -Moisture (Shahana-wound Skin Appearance) Assessed No Abnormality No Abnormality, Assessed -Color (Shahana-wound Skin Appearance) Assessed Hemosiderin No Abnormality, Staining,Rubor Assessed -Temperature (Shahana-wound Skin No Abnormality No Abnormality No Abnormality Appearance) (Pt Warm) (Pt Warm) (Pt Warm) -Tenderness on Palpation (Shahana-wound No No No Skin Appearance) -Ulcer Cleansing Rinsed/ Rinsed/ Rinsed/ Irrigated with Irrigated with Irrigated with Saline Saline Saline -Foul Odor after Cleansing No No No -Anesthetic Used 5% Lidocaine 5% Lidocaine 5% Lidocaine Gel Gel Gel Right Calf (cm) 26.5 Right Ankle (cm) 17.5 Left Calf (cm) 27.2 Left Ankle (cm) 18.5 06/15/22 11:13 Wound Center Nurse 1 #21 right pat -Combined with other wound -Current Size (cm) - Length 0.1 -Current Size (cm) - Width 0.1 -Current Size (cm) - Depth 0.1 -Total Square Cm 0.01 -Date of Last Picture (Recall this field) -Photo Taken -Tunneling -Undermining/Tunneling -Circular Undermining -Change in Wound Grade/Stage -Exudate Amt -Exudate Type -Wound Margin -Granulation Amt -Granulation Quality -Slough/Fibrin -Necrosis Amt -Structure Exposed -Texture (Shahana-wound Skin Appearance) -Moisture (Shahana-wound Skin Appearance) -Color (Shahana-wound Skin Appearance) -Temperature (Shahana-wound Skin Appearance) -Tenderness on Palpation (Shahana-wound Skin Appearance) -Ulcer Cleansing -Foul Odor after Cleansing -Anesthetic Used #20- L 2ND TOE -Combined with other wound -Current Size (cm) - Length 0.1 -Current Size (cm) - Width 0.1 -Current Size (cm) - Depth 0.1 -Total Square Cm 0.01 -Date of Last Picture (Recall this field) -Photo Taken -Epithelialization -Tunneling -Undermining/Tunneling -Undermining/Tunneling Starts (O'clock ) -Undermining/Tunneling Ends (O'clock) -Maximum Distance (cm) -Circular Undermining -Change in Wound Grade/Stage -Exudate Amt -Exudate Type -Wound Margin -Granulation Amt -Granulation Quality -Slough/Fibrin -Necrosis Amt -Necrotic Tissue Type -Structure Exposed -Texture (Shahana-wound Skin Appearance) -Moisture (Shahana-wound Skin Appearance) -Color (Shahana-wound Skin Appearance) -Temperature (Shahana-wound Skin Appearance) -Tenderness on Palpation (Shahana-wound Skin Appearance) -Ulcer Cleansing -Foul Odor after Cleansing -Anesthetic Used Right Calf (cm) Right Ankle (cm) Left Calf (cm) Left Ankle (cm) WC - Nurse 2 - General Ulcer CM Notes Start: 05/18/22 11:30 Freq: Status: Active Protocol: Activity Type Activity Date Activity User E-sign Co-sign Detail Recorded Client Recorded Date Recorded By Document 05/18/22 12:14 MW [id number] 05/18/22 12:33 MW Document 05/25/22 12:26 MW [id number] 05/25/22 12:41 MW Document 06/01/22 11:56 MW [id number] 06/01/22 12:14 MW Document 06/15/22 12:22 JF [id number] 06/15/22 12:47 JF 05/18/22 05/25/22 06/01/22 12:14 12:26 11:56 Wound Center Nurse 2 #21 right pat -Time 12:33 11:56 -Correct Patient Yes Yes -Correct Side, Site, Position Yes Yes -Correct Procedure Yes Yes -Procedure Performed No No -Post Debridement (cm) - Length 3.0 11.0 -Post Debridement (cm) - Width 1.5 0.8 -Post Debridement (cm) - Depth 0.1 0.1 -Total Square (Post) (cm) 4.50 8.80 -Tunneling No -Undermining/Tunneling No -Circular Undermining No -Wound/Ulcer Outcome Not Healed #20- L 2ND TOE -Time 12:14 12:33 11:57 -Correct Patient Yes Yes Yes -Correct Side, Site, Position Yes Yes Yes -Correct Procedure Yes Yes Yes -Procedure Performed Yes Yes Yes -Type of Procedure Debridement Debridement Debridement -Clinical Debridement Subcutaneous Subcutaneous Subcutaneous -Tissue Removed Subcutaneous Subcutaneous Subcutaneous -Post Debridement (cm) - Length 1.0 1.0 1.0 -Post Debridement (cm) - Width 1.1 1.1 1.2 -Post Debridement (cm) - Depth 0.1 0.1 0.1 -Total Square (Post) (cm) 1.10 1.10 1.20 -Area of Debridement (cm) - Length 1.0 1.0 1.0 -Area of Debridement (cm) - Width 1.1 1.1 1.2 -Total Square (Area) (cm) 1.10 1.10 1.20 -Tunneling No No No -Undermining/Tunneling No No No -Circular Undermining No No No -Wound/Ulcer Outcome Not Healed Not Healed Not Healed -Ulcer Cleansing Rinsed/ Rinsed/ Rinsed/ Irrigated with Irrigated with Irrigated with Saline Saline Saline -Foul Odor after Cleansing No No No -Bioengineered Tissue No No Yes -Type of Bioengineered Tissue Epifix 18mm Disc -Expiration Date 02/15/27 -Product Lot Number [id number] -Percent Used 100 -Lot number of Saline Used [id number] -Bleeding Controlled with Pressure Pressure Pressure -Treatment Response Procedure Procedure Procedure Tolerated Well Tolerated Well Tolerated Well -Offloading No No No -Debridement - Subq, 1st 20sq cm Yes Yes No -Apply Skin Sub - 1st 25 sq cm - Feet 1 -Epifix 18mm Disc 3 Pain Scale: 0-10 Numeric Is Patient Pain Free? Yes Yes Yes 06/15/22 12:22 Wound Center Nurse 2 #21 right pat -Time -Correct Patient No -Correct Side, Site, Position No -Correct Procedure No -Procedure Performed No -Post Debridement (cm) - Length -Post Debridement (cm) - Width -Post Debridement (cm) - Depth -Total Square (Post) (cm) -Tunneling -Undermining/Tunneling -Circular Undermining -Wound/Ulcer Outcome Not Healed #20- L 2ND TOE -Time 12:33 -Correct Patient Yes -Correct Side, Site, Position Yes -Correct Procedure Yes -Procedure Performed Yes -Type of Procedure Debridement -Clinical Debridement Subcutaneous -Tissue Removed Subcutaneous -Post Debridement (cm) - Length 1.0 -Post Debridement (cm) - Width 0.9 -Post Debridement (cm) - Depth 0.2 -Total Square (Post) (cm) 0.90 -Area of Debridement (cm) - Length 1.0 -Area of Debridement (cm) - Width 0.9 -Total Square (Area) (cm) 0.90 -Tunneling No -Undermining/Tunneling No -Circular Undermining No -Wound/Ulcer Outcome Not Healed -Ulcer Cleansing Rinsed/ Irrigated with Saline -Foul Odor after Cleansing No -Bioengineered Tissue No -Type of Bioengineered Tissue -Expiration Date -Product Lot Number -Percent Used -Lot number of Saline Used -Bleeding Controlled with Pressure -Treatment Response Procedure Tolerated Well -Offloading No -Debridement - Subq, 1st 20sq cm Yes -Apply Skin Sub - 1st 25 sq cm - Feet -Epifix 18mm Disc Pain Scale: 0-10 Numeric Is Patient Pain Free? Yes WC - Nurse 3 - General Ulcer D/C NN Start: 05/18/22 11:30 Freq: Status: Active Protocol: Activity Type Activity Date Activity User E-sign Co-sign Detail Recorded Client Recorded Date Recorded By Document 05/18/22 13:03 [facility] [id number] 05/18/22 13:06 [facility] Document 05/25/22 12:57 RB [id number] 05/25/22 12:58 RB Document 06/01/22 12:23 RB [id number] 06/01/22 12:24 RB 05/18/22 05/25/22 06/01/22 13:03 12:57 12:23 Wound Care Nurse 3 #21 right pat -Primary Dressing Applied Mepilex Border Mepilex Border -Mepilex Border 1 1 #20- L 2ND TOE -Ulcer Cleansing Rinsed/ Wound Cleanser Irrigated with Saline -Foul Odor after Cleansing No -Primary Dressing Applied NonAdherent NonAdherent Contact Layer, Contact Layer, Silvercel Promogran Verenice Matter -Other Dressing DRSG PER MT RN -Primary Dressing Covered/Secured with Dry Gauze & Dry Gauze, Dry Gauze, Roll Gauze, Secured with Secured with Secured with Tape Tape Tape -Promogran Verenice Matter 1 -Silvercel 1 Treatment Response Procedure Procedure Procedure Tolerated Well Tolerated Well Tolerated Well Pain Scale: 0-10 Numeric Is Patient Pain Free? Yes Yes Yes WC - Visit Discharge Discharge Condition Stable Stable Stable Ambulatory Status Wheelchair Wheelchair Wheelchair Transportation Private Auto Private Auto Private Auto Accompanied by ; MICHAEL IN [facility] Medication Reconcilliation completed & No No provided to patient/care provider Clinical Summary of Care Provided Yes Yes Facility Type Home Health Assessment/Plan Assessment/Plan (1) Hypokalemia: CODE(S): E87.6 - Hypokalemia (2) Hypertension: CODE(S): I10 - Essential (primary) hypertension (3) Diabetes mellitus: CODE(S): E11.9 - Type 2 diabetes mellitus without complications (4) Peripheral arterial occlusive disease: CODE(S): I77.9 - Disorder of arteries and arterioles, unspecified (5) Debility: CODE(S): R53.81 - Other malaise (6) Diabetes with ulcer of toe: CODE(S): E11.621 - Type 2 diabetes mellitus with foot ulcer; L97.509 - Non-pressure chronic ulcer of other part of unspecified foot with unspecified severity QUALIFIERS: Diabetes mellitus type: type 2 Laterality: right Non-pressure ulcer stage: with fat layer exposed Qualified Code(s): E11.621 - Type 2 diabetes mellitus with foot ulcer; L97.512 - Non-pressure chronic ulcer of other part of right foot with fat layer exposed (7) Stroke: CODE(S): I63.9 - Cerebral infarction, unspecified (8) Coronary artery disease: CODE(S): I25.10 - Atherosclerotic heart disease of [place] coronary artery without angina pectoris (9) Depression: CODE(S): F32.A - Depression, unspecified (10) 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 At home wound-care instructions: He tolerated Epifix #1 with minimal improvement. He is going to be entering into inpatient Rehab for strengthening and deconditioning. Will dress his ulcer with Verenice and adaptic and gauze and his oter abrasions throughout both legs with hydrogel, adaptic and gauze. Keep dressing clean and dry. Right pat will be covered with foam silicone bordered dressing to pad and protect his pat. Off-loading: The patient was instructed to avoid pressure and friction on the affected areas. Reposition every 2 hours at minimum. Avoid prolonged standing and/or dangling of legs. When seated, feet should be elevated at chest level. Frequent ambulation is encouraged. Plan to remove top of shoe to decrease pressure. Diet: Patient encouraged to increase protein intake while taking caution to avoid high carbohydrate and/or sugar intake. Labs/cultures/imaging: Culture taken and + for infection. He completed antibiotic treatment with Levaquin and Flagyl. Bone biopsy negative for osteomyelitis. Xray negative for osteomyelitis. Due to the complexity of his comorbidities and his lack of improvement over the last 3 months of traditional wound care, he would benefit from treatment with advanced wound care such as Epifix in order to heal his ulcer of his left second toe. Discussed case with Dr. Alvarado who is his washing machine operator and she recommended conservative treatment and against amputation. Follow-up: Return after discharge from Inpatient Rehab. Note: [employer] speech recognition match up person software was used to create portions of this document. Sound-alike and misspelled words, as well as other tr anscription errors may be contained in the documentation.
== END 2022-06-16 23:59 | disposition home or self-care (01) ==
LOC: WC 12:00
PROVIDERS: PCP Family Medicine; Referring Provider Family Medicine; Visit Provider Family Medicine
DX: E11.621 Type 2 diabetes mellitus with foot ulcer (principal); E11.51 Type 2 diabetes mellitus with diabetic peripheral angiopathy without gangrene; L97.524 Non-pressure chronic ulcer of other part of left foot with necrosis of bone; E11.22 Type 2 diabetes mellitus with diabetic chronic kidney disease; S80.811A Abrasion, right lower leg, initial encounter; S80.812A Abrasion, left lower leg, initial encounter; I25.10 Atherosclerotic heart disease of native coronary artery without angina pectoris; M21.372 Foot drop, left foot; F32.A Depression, unspecified; E78.5 Hyperlipidemia, unspecified; I12.9 Hypertensive chronic kidney disease with stage 1 through stage 4 chronic kidney disease, or unspecified chronic kidney disease; N18.2 Chronic kidney disease, stage 2 (mild); E87.6 Hypokalemia; R53.81 Other malaise; Z79.01 Long term (current) use of anticoagulants; Z79.02 Long term (current) use of antithrombotics/antiplatelets; Z79.82 Long term (current) use of aspirin; Z79.84 Long term (current) use of oral hypoglycemic drugs; Z79.899 Other long term (current) drug therapy; Z86.73 Personal history of transient ischemic attack (TIA), and cerebral infarction without residual deficits
CPT/HCPCS: 11042; 15275; 87070; 87075; 87077; 87186; 87205; 88307; 88311; 99213; Q4186; G0463

== ENCOUNTER 2022-06-15 13:58 | Inpatient (IN) | payer MEDICARE, OTHER, SELFPAY ==
[2022-06-15 14:33] VITALS: BP 129/60; PULSE 82; RESP 18; TEMP 36.4; O2SAT 93
--- NOTE | 2022-06-15 15:18 | HP.PCM_ITS ---
[facility] - General General Date of Admission: 06/15/22 Date of Service: 06/15/22 Chief Complaint: Here for 3 hours daily rehabilitation, strengthening. [facility] Narrative 05/18/2022 TRAM RIVERA, is a 72 Male who presents with following: Left second toe diabetic foot ulcer. Treated for infection with Levaquin, Flagyl. X-ray, AND bone biopsy, NEGATIVE for osteomyelitis. Dr. Alvarado recommended non-surgical treatment of left second toe diabetic foot ulcer. Multiple falls at home for 2 weeks, Daily fall last week. Worsening weakness in bilateral lower extremities. struggling to care for him at home, full assist for her. 06/15/2022 Admit to with debility, here for 3 hours daily rehabilitation, strengthening, prior to discharge home with . [facility] Medical History Back pain with history of spinal surgery Chronic renal insufficiency, stage II (mild) Coronary artery disease Diabetes mellitus Failure to thrive Fatigue Foot drop, left foot History of right common carotid artery stent placement Hyperlipidemia Hypertension Peripheral arterial occlusive disease Peripheral vascular disease Psoriasis Psoriatic arthritis Home Medications aspirin 81 mg chewable tablet 1 tab PO DAILY heart health 12/11/20 [History Last Taken 10/16/21] clopidogrel 75 mg tablet 75 mg PO DAILY anti platelet 12/11/20 [History Last Taken 10/16/21] glyburide 5 mg tablet 5 mg PO BID diabetes 12/11/20 [History Last Taken 12/10/20] folic acid 1 mg tablet 1 mg PO DAILY supplement 08/13/21 [History Last Taken 10/16/21] methotrexate sodium 2.5 mg tablet 17.5 mg PO FR inflammation 08/13/21 [History Last Taken 10/13/21] apixaban 5 mg tablet 5 mg PO BID Blood Thinner 10/18/21 [History Last Taken Unknown] carvedilol 6.25 mg tablet 6.25 mg PO BID BP 10/18/21 [History Last Taken Unknown] lisinopril 5 mg tablet 5 mg PO DAILY BP 10/18/21 [History Last Taken Unknown] potassium chloride 10 mEq tablet,extended release 20 meq PO DAILY Supplement 10/18/21 [History Last Taken Unknown] acetaminophen 500 mg tablet 1,000 mg PO Q6H PRN PRN Pain Score 1-3 #0 tabs 11/09/21 [Rx Last Taken Unknown] tramadol 50 mg tablet 50 mg PO Q6H PRN PRN Pain Score 4-10 3 days #12 tabs 11/09/21 [Rx Last Taken Unknown] carvedilol 6.25 mg tablet 6.25 mg PO BIDCM 30 days #60 tabs 11/15/21 [Rx Last Taken Unknown] oxycodone 5 mg tablet 5 - 10 mg PO Q6H PRN Pain 05/18/22 [History Last Taken Unknown] venlafaxine 75 mg capsule,extended release 24 hr 150 mg PO DAILY 05/18/22 [History Last Taken Unknown] venlafaxine 75 mg tablet 75 mg PO QHS 05/18/22 [History Last Taken Unknown] Allergy/AdvReac Type Severity Reaction Status Date / Time morphine Allergy PT UNSURE Verified 05/18/22 11:46 OF REACTION rivaroxaban [From Xarelto] Allergy Other Verified 05/18/22 11:46 Family History Mother CVA (cerebral vascular accident) Diabetes Heart disease Hypertension Father Diabetes Heart disease Pulmonary disease Surgical History History of back surgery Hx of CABG S/P peripheral artery bypass Status post right foot surgery Social History household members: spouse Smoking Status: Never smoker alcohol intake: never substance use type: does not use ROS Constitutional Constitutional: Denies chills, fever(s) or weight gain ENT HEENT: Denies headache(s), nasal congestion or nasal discharge Cardiovascular Cardiovascular: Denies chest pain or palpitations Respiratory/Chest Respiratory/Chest: Denies cough, excessive phlegm production or shortness of breath with exertion Gastrointestinal Gastrointestinal: Denies abdominal pain, nausea or vomiting Genitourinary Genitourinary: Denies dysuria Musculoskeletal Musculoskeletal: Denies joint pain or joint swelling Integumentary Integumentary: Denies rash or wounds Neurologic Neurologic: Denies focal weakness, numbness or tingling Psychiatric Psychiatric: Denies anxiety, auditory hallucinations, depression, homicidal ideation or suicidal ideation Vital Signs Vital Signs Vital Signs: 06/15/22 14:33 Temperature 97.6 F L Temperature Source Temporal Pulse Rate 82 Respiratory Rate 18 Blood Pressure 129/60 H Blood Pressure Mean 83 Blood Pressure Source Monitor Blood Pressure Position Semi-Fowlers Blood Pressure Location Left Arm Pulse Ox 93 Oxygen Delivery Method Room Air Indicators for Scoring Admitted with or Primary Diagnosis of CVA/Stroke: No Hx of CVA/Stroke: No Physical Exam Const alert General Appearance: cooperative HEENT normocephalic Eyes PERRL and EOMs intact bilaterally Neck supple, no JVD and no carotid bruits Resp normal respiratory effort, normal air movement and clear to auscultation bilaterally Cardio regular rate and regular rhythm GI normal to inspection, nondistended, normoactive bowel sounds, non-tender and non-distended Extremity normal capillary refill General Extremity: Negative for edema Skin no rashes or lesions noted Skin Narrative: Left foot wound per Wound nurse. 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 * Debility - PT/OT. * Pain - Tylenol 1000mg q6h prn pain (1-10). * Bowel - senna/colace 1 tablet bid, Dulcolax 10mg pr x 1 prn, MOM 30ml po x 1 prn. * Coronary Artery disease - Coreg 6.25mg bid, Lisinopril 5mg daily, Plavix 75mg daily, Aspirin 81mg daily. * Diabetes Mellitus II - Glyburide 10mg daily. * Rheumatoid arthritis - MTX 17.5mg qweek, Folic acid 1mg daily. * LV thrombus - Eliquis 5mg bid. * Hypokalemia - KCL 20meq daily. * Depression - Venlafaxine 75mg bid.
[2022-06-15] MEDS: Tamsulosin HCl 0.4 MG Capsule PO (18:01)
[2022-06-15] MEDS: Venlafaxine HCl 75 MG Tablet PO ×2 (18:09→20:51)
[2022-06-15] MEDS: oxyCODONE 5 MG Tablet PO (18:42)
[2022-06-15 19:06] VITALS: RESP 18
[2022-06-15 19:53] VITALS: BP 128/61; PULSE 82; RESP 16; TEMP 36.6; O2SAT 96
[2022-06-15] MEDS: Acetaminophen 500 MG Tablet 1000 MG PO (20:35)
[2022-06-15] MEDS: Senna/Docusate Sodium 1 Tablet PO ×2 (20:43→20:51)
[2022-06-15] MEDS: Carvedilol 6.25 MG Tablet PO (20:51)
[2022-06-15] MEDS: Menthol/Lanolin/Calamine/Znox 113 GM Tube 1 APPLIC TOPICAL (20:51)
[2022-06-15] MEDS: APIXABAN 5 MG TABLET PO (20:51)
[2022-06-15] MEDS: metroNIDAZOLE 500 MG Tablet PO (20:52)
[2022-06-15 22:00] VITALS: PULSE 78; RESP 17; O2SAT 95
[2022-06-15] MEDS: Nystatin Powder 15gm Bottle 1 APPLIC TOPICAL (22:03)
[2022-06-15 22:15] LABS: Bedside Glucose 371 mg/dL (74-106)
--- NOTE | 2022-06-15 23:31 | NURSING ---
Pt claims he is unable to lie down in the bed d/t multiple back surgeries and pain to lower back. Pt claims he sleeps in a recliner. VS- WNL. Also, pt refused to change to hospital gown this hs.
[2022-06-16] MEDS: oxyCODONE 5 MG Tablet PO (02:40)
[2022-06-16 07:20] LABS: Bedside Glucose 183 mg/dL (74-106)
[2022-06-16 07:37] VITALS: BP 115/79; PULSE 77; RESP 15; TEMP 36.6; O2SAT 93
[2022-06-16] MEDS: Lisinopril 5 MG Tablet PO (08:00)
[2022-06-16] MEDS: Potassium Chloride Oral Tablet 20 MEQ PO (08:00)
[2022-06-16] MEDS: predniSONE 10 MG Tablet 30 MG PO (08:00)
[2022-06-16] MEDS: Folic Acid 1 MG Tablet PO (08:00)
[2022-06-16] MEDS: APIXABAN 5 MG TABLET PO ×2 (08:00→21:33)
[2022-06-16] MEDS: Clopidogrel Bisulfate 75 MG Tablet PO (08:00)
[2022-06-16] MEDS: Venlafaxine HCl 75 MG Tablet 150 MG PO (08:01)
[2022-06-16] MEDS: Aspirin 81 MG TAB.CHEW PO (08:01)
[2022-06-16] MEDS: metroNIDAZOLE 500 MG Tablet PO (08:01)
[2022-06-16] MEDS: Carvedilol 6.25 MG Tablet PO ×2 (08:01→21:32)
[2022-06-16] MEDS: Nystatin Powder 15gm Bottle 1 APPLIC TOPICAL ×2 (08:01→21:34)
[2022-06-16] MEDS: Menthol/Lanolin/Calamine/Znox 113 GM Tube 1 APPLIC TOPICAL ×2 (08:01→21:32)
[2022-06-16 10:40] LABS: Absolute Lymphocyte Count 1.24 X10^3/uL (0.83-4.51); Absolute Neutrophil Count 6.9 X10^3/uL (2.0-7.7); Basophil# 0.03 X10^3/uL; Basophil% 0.3 % (0-1); Eosinophil# 0.01 X10^3/uL; Eosinophils% 0.1 % (0-5); Hematocrit 42.5 % (40-54); Hemoglobin 14.2 g/dL (13.0-16.5); Lymphocyte # 1.24 X10^3/ul (0.83-4.51); Lymphocyte % 13.3 % (19-41); Mean Corp Hgb Conc 33.4 g/dL (32-36); Mean Corpuscular Hgb 35.4 pg (27.0-32.0); Mean Platelet Vol. 9.7 fl (6.2-12.0); Monocyte# 0.86 X10^3/uL; Monocyte% 9.2 % (0-10); NRBC Flagged by Analyzer 0 % (0-5); Neutrophil # 6.93 X10^3/uL (2.7-7.7); Neutrophil % 74.6 % (47-70); Platelet Count 198 K/mm3 (150-450); RBC Distribution Width CV 14.9 % (11.6-14.6); Red Blood Count 4.01 M/mm3 (4.6-6.2); White Blood Count 9.3 K/mm3 (4.4-11.0)
[2022-06-16 10:58] LABS: ALB/GLOB Ratio 0.9 RATIO (0.9-2.4); AST(SGOT) 9 U/L (15-37); Alanine Aminotransfer ALT/SGPT 20 U/L (16-61); Alkaline Phosphatase 57 U/L (45-117); Anion Gap 4 (5-15); BUN 27 mg/dL (7-18); BUN/Creat Ratio 20.9 RATIO (10-20); Calcium,Total 8.8 mg/dL (8.5-10.1); Chloride 104 mmol/L (98-107); Creatinine, Serum 1.29 mg/dL (0.70-1.30); EST Glomerular Filtration Rate 58 mL/min (>60); Est Glom Filt Rate - Afr Amer 70 mL/min (>60); Estimated Creatinine Clearance 53.45 ml/min; Globulin 3.4 g/dL (2.2-4.2); Glucose 322 mg/dL (74-106); Magnesium 2.4 mg/dL (1.6-2.6); Phosphorus 3.7 mg/dL (2.5-4.9); Potassium 4.6 mmol/L (3.5-5.1); Protein, Total 6.4 g/dL (6.4-8.2); Sodium Level 138 mmol/L (136-145)
--- NOTE | 2022-06-16 11:48 | PCM.RU.PYE ---
Admission Information Primary Diagnosis:: Debility, falls, diabetic foot ulcer. Status Changes from Prescreening?: No changes Identified Actual Problem List:: Falls, Skin Intergrity, Mobility Impaired, Self Care Deficit, Ineffective Communication, Know.Dfct/Disease Process and Know.Dfct of Medicaitons Potential Problem List:: DVT, Bleeding, Infection, UTI, Aspiration, Falls, Skin Integrity and Depression Risk of Complications DVT: FRANSISCA Hose Bleeding: Monitor Lab Values, Nursing to Teach Precautions for anti-coagulation therapy., Wound, if applicable, to be assessed every shift. and Stroke patients assessed for lethargy or change in status. Infection: Clinical Staff to Monitor for S/S of infection: and S/S of infection include fever, redness, warmth, etc. Urinary Tract Infection: Monitor for frequency, burning, discomfort, or incontinence. and Nursing will obtain urine sample for urinalysis and C&S when ordered. Falls: Patient will be evaluated for Fall Precautions and Patient will be placed on Fall Precautions as indicated per protocol. Skin Breakdown: Nursing will assess skin daily using assessment tool. and Nursing will place on Skin Breakdown Precautions as indicated. Pain: Clinical staff will assess patient's pain level per protocol., Medications will be given, if needed, and the pain level reassessed. and Other methods: Massage, distraction, decrease stimulus, etc. used PRN. Plan of Care Patient requires physician specializing in physical medicine and rehab oversight to provide close medical supervision of rehab issues including: Pain Management, Sleep Problems, Bowel and Bladder, Medical and co-morbidity Management, DVT prophylaxis, Rehabilitation Leadership and Coordination of treatment team Patient needs Physical Therapy: At least 5 out of 7 days and For a minimum of 1.5 hrs Patient needs Physical Therapy to improve:: Mobility, Strengthening, Transfers, Stretching, ROM, Endurance, Stairs, Gait and Balance Patient needs Occupational Therapy: At least 5 out of 7 days and For a minimum of 1.5 hrs Patient needs Occupational Therapy to improve ADL's incl.: Eating, Grooming, Bathing, Dressing, Toileting, Toilet transfers, Higher functioning activities, Household tasks and Other activities as determined Patient requires 24/7 Rehabilitation Nursing for: Pain Issues, Identifying and preventing risk factors, Monitoring and reporting current medical conditions, Assisting with ambulation, transfer, and all ADL's, Teaching patients about disease process and medications, Family teaching, Providing safe environment, Bowel and Bladder Issues, Skin integrity and Medication Management Patient needs Assistant Professor Of Geography/ Case Management for: Discharge Planning, Arranging Home Equipment or Services and Family Interventions Patient needs Dietary and Nutrition Services for: Adequate Nutrition, Nutritional Supplements and Nutritional Education Goals Patient will remain: free from falls and or injury at time of discharge. Patient will perform bed mobility at: MOD I level of assist. Patient will complete transfers from bed to chair at: MOD I level of assist. Patient will ambulate: 100 feet and with standby assist Patient will complete upper body dressing at: Standby Assist. Patient will complete lower body dressing at: Standby Assist. Patient will complete toileting at: Standby Assist. Patient will perform bathing at: MOD I level of assist. Patient will complete grooming at: Standby Assist. Patient will complete home management skills at: Standby Assist. Patient will have pain level of: of 3 or less Patient's skin will: remain intact and free from infection. Patient will receive: adequate nutrition. Discharge Planning Pt Prognosis for Sig. Practical Improv. w/in Reasonable Time: Fair Estimated Length of stay (days): 21 Anticipated D/C Destination: Home with Home Health Was Preadmission Assessment Accurate?: Yes
--- NOTE | 2022-06-16 16:50 | NURSING ---
Notified Dr. Medina of patients current B.S. of 450. Received order to stop prednisone now and administer 10 units of Humalog now. Orders repeated back.
[2022-06-16] MEDS: Tamsulosin HCl 0.4 MG Capsule PO (16:51)
[2022-06-16 17:37] LABS: Glucose 461 mg/dL (74-106)
[2022-06-16] MEDS: Insulin Lispro 100 UNIT/ML INSULN.PEN 10 UNIT SC (17:43)
[2022-06-16 18:51] LABS: Bedside Glucose 434 mg/dL (74-106)
[2022-06-16 19:41] VITALS: BP 140/70; PULSE 81; RESP 17; TEMP 36.6; O2SAT 95
[2022-06-16] MEDS: Senna/Docusate Sodium 1 Tablet PO (21:33)
[2022-06-16] MEDS: Venlafaxine HCl 75 MG Tablet PO (21:33)
--- NOTE | 2022-06-16 22:28 | NURSING ---
Pt BS rechecked this HS d/t high BS 434 @ [id number], BS 343 @ 9749.
[2022-06-16 22:41] LABS: Bedside Glucose 343 mg/dL (74-106)
--- NOTE | 2022-06-16 22:50 | NURSING ---
Pt declines to wear CPAP this HS, stating he does not wear it all the time at home.
[2022-06-17] MEDS: Acetaminophen 500 MG Tablet 1000 MG PO (06:23)
[2022-06-17 07:01] LABS: Bedside Glucose 194 mg/dL (74-106)
[2022-06-17 07:32] VITALS: BP 117/68; PULSE 72; RESP 16; TEMP 36.8; O2SAT 93
[2022-06-17] MEDS: Nystatin Powder 15gm Bottle 1 APPLIC TOPICAL ×2 (08:01→20:22)
[2022-06-17] MEDS: APIXABAN 5 MG TABLET PO ×2 (08:01→20:22)
[2022-06-17] MEDS: Menthol/Lanolin/Calamine/Znox 113 GM Tube 1 APPLIC TOPICAL ×2 (08:02→20:23)
[2022-06-17] MEDS: Senna/Docusate Sodium 1 Tablet PO ×2 (08:02→20:22)
[2022-06-17] MEDS: Clopidogrel Bisulfate 75 MG Tablet PO (08:02)
[2022-06-17] MEDS: Carvedilol 6.25 MG Tablet PO ×2 (08:02→17:01)
[2022-06-17] MEDS: Glucerna Shake 120 ML LIQUID PO ×3 (08:02→17:01)
[2022-06-17] MEDS: Venlafaxine HCl 75 MG Tablet 150 MG PO (08:02)
[2022-06-17] MEDS: Lisinopril 5 MG Tablet PO (08:02)
[2022-06-17] MEDS: Potassium Chloride Oral Tablet 20 MEQ PO (08:02)
[2022-06-17] MEDS: Juven (unflavored) Packet 1 PACKET PO ×2 (08:02→17:01)
[2022-06-17] MEDS: Aspirin 81 MG TAB.CHEW PO (08:02)
[2022-06-17] MEDS: Folic Acid 1 MG Tablet PO (08:02)
[2022-06-17] MEDS: oxyCODONE 5 MG Tablet PO ×2 (14:08→20:27)
[2022-06-17 16:31] LABS: Bedside Glucose 266 mg/dL (74-106)
[2022-06-17] MEDS: Tamsulosin HCl 0.4 MG Capsule PO (17:01)
[2022-06-17 20:15] VITALS: BP 119/64; PULSE 74; RESP 16; TEMP 36.9; O2SAT 99
[2022-06-17] MEDS: Venlafaxine HCl 75 MG Tablet PO (20:22)
[2022-06-18] MEDS: oxyCODONE 5 MG Tablet PO ×2 (04:40→11:56)
[2022-06-18] MEDS: Acetaminophen 500 MG Tablet 1000 MG PO ×2 (04:41→11:57)
[2022-06-18 07:25] LABS: Bedside Glucose 168 mg/dL (74-106)
[2022-06-18 07:37] VITALS: BP 113/67; PULSE 75; RESP 17; TEMP 37.1; O2SAT 99
[2022-06-18] MEDS: Glucerna Shake 120 ML LIQUID PO ×3 (09:16→16:31)
[2022-06-18] MEDS: Potassium Chloride Oral Tablet 20 MEQ PO (09:17)
[2022-06-18] MEDS: Venlafaxine HCl 75 MG Tablet 150 MG PO (09:17)
[2022-06-18] MEDS: Aspirin 81 MG TAB.CHEW PO (09:17)
[2022-06-18] MEDS: APIXABAN 5 MG TABLET PO ×2 (09:17→22:06)
[2022-06-18] MEDS: Carvedilol 6.25 MG Tablet PO ×2 (09:18→16:29)
[2022-06-18] MEDS: Folic Acid 1 MG Tablet PO (09:18)
[2022-06-18] MEDS: Nystatin Powder 15gm Bottle 1 APPLIC TOPICAL ×2 (09:19→22:06)
[2022-06-18] MEDS: Clopidogrel Bisulfate 75 MG Tablet PO (09:20)
[2022-06-18] MEDS: Lisinopril 5 MG Tablet PO (09:20)
[2022-06-18] MEDS: Menthol/Lanolin/Calamine/Znox 113 GM Tube 1 APPLIC TOPICAL ×2 (09:20→22:07)
[2022-06-18] MEDS: Juven (unflavored) Packet 1 PACKET PO ×2 (09:25→16:28)
[2022-06-18] MEDS: Tamsulosin HCl 0.4 MG Capsule PO (16:30)
[2022-06-18 16:55] LABS: Bedside Glucose 264 mg/dL (74-106)
[2022-06-18 19:54] VITALS: BP 118/58; PULSE 77; RESP 17; TEMP 36.5; O2SAT 97
[2022-06-18 22:00] VITALS: PULSE 77; RESP 16; O2SAT 98
[2022-06-18] MEDS: Venlafaxine HCl 75 MG Tablet PO (22:06)
[2022-06-18] MEDS: Senna/Docusate Sodium 1 Tablet PO (22:07)
[2022-06-19] MEDS: Acetaminophen 500 MG Tablet 1000 MG PO (05:39)
[2022-06-19] MEDS: oxyCODONE 5 MG Tablet PO ×2 (05:40→13:14)
[2022-06-19 06:40] LABS: Bedside Glucose 169 mg/dL (74-106)
[2022-06-19 07:22] VITALS: BP 108/44; PULSE 80; RESP 16; TEMP 36.2; O2SAT 100
[2022-06-19] MEDS: Venlafaxine HCl 75 MG Tablet 150 MG PO (07:47)
[2022-06-19] MEDS: Carvedilol 6.25 MG Tablet PO ×2 (07:47→17:05)
[2022-06-19] MEDS: Folic Acid 1 MG Tablet PO (07:47)
[2022-06-19] MEDS: Clopidogrel Bisulfate 75 MG Tablet PO (07:47)
[2022-06-19] MEDS: Juven (unflavored) Packet 1 PACKET PO ×2 (07:47→17:05)
[2022-06-19] MEDS: APIXABAN 5 MG TABLET PO ×2 (07:48→21:13)
[2022-06-19] MEDS: Aspirin 81 MG TAB.CHEW PO (07:48)
[2022-06-19] MEDS: Potassium Chloride Oral Tablet 20 MEQ PO (07:48)
[2022-06-19] MEDS: Lisinopril 5 MG Tablet PO (07:48)
[2022-06-19] MEDS: Nystatin Powder 15gm Bottle 1 APPLIC TOPICAL ×2 (07:51→21:20)
[2022-06-19] MEDS: Senna/Docusate Sodium 1 Tablet PO ×2 (07:51→21:13)
[2022-06-19] MEDS: Menthol/Lanolin/Calamine/Znox 113 GM Tube 1 APPLIC TOPICAL ×2 (07:52→21:16)
[2022-06-19 08:40] LABS: Bedside Glucose 450 mg/dL (74-106)
[2022-06-19 08:40] LABS: Bedside Glucose 451 mg/dL (74-106)
[2022-06-19] MEDS: Glucerna Shake 120 ML LIQUID PO ×2 (11:33→17:05)
--- NOTE | 2022-06-19 15:34 | PN_ITS ---
Subjective Subjective Afebrile VSS Maintaining appropriate oxygen saturation on RA Oral intake is good The blood sugar record was reviewed. Blood sugars are not adequately controlled. He is currently taking glimepiride 10 mg twice daily for diabetes. Discussed with nursing - no problems that need addressed Reviewed the PT/OT/ST notes Medication list reviewed. Lab from 04/19/2022 showed a total cholesterol of 198 with an LDL of 116 and an HDL of 46. Triglycerides were 181. LFTs were within normal limits. No recent hemoglobin A1c in the EMR. The creatinine over the past year is ranged from 1.2-1.75. GFR is ranged from 41-65 over the past year. Gibson is a 72-year-old male with a past medical history of back pain/spinal surgery, chronic kidney disease stage II?3A, coronary artery disease, diabetes mellitus type 2, history of right common carotid stenosis with carotid stent placement, hyperlipidemia, hypertension, PVD, psoriasis, psoriatic arthritis and failure to thrive. He was being treated as an outpatient for an infected diabetic foot ulcer on the left second toe. X-ray and bone biopsy were negative for osteomyelitis. He sees Dr. Lozano for podiatry and she recommended nonsurgical treatment of the ulceration. He has had multiple falls at home and was admitted to acute rehab on 06/15/22 for 3 hours of therapy daily to restore function/independence at or near his prior level. Ray tells me that he has been depressed since he was in his 30's. He has been on multiple antidepressants in the past. He tried psychotherapy only 1 time in the past and that was 4-5 years ago. He has never seen a psychiatrist. He did not feel counselling helped him and tells me he would not go again. Currently he is on Effexor at 225 mg daily. He has trouble sleeping....both falling asleep and then staying asleep but, he admits to sleeping a lot during the day. There is a hx of depression in his paternal GF who committed suicide when Ray's father was young. He does not know of any hx of schizophrenia, BL disorder or dysthymia. He has tried Buspar in the past and did not think it helped him. He also has been on Prozac in the past. He was started on Effexor 3 months ago and he does think his mood has improved but, he admits to having a lot of anxiety. He lays awake at night thinking about his family and worrying about them. He hardly ever leaves his house and he used to have hobbies but, doesn't do any of them anymore......he just stays in the house. About 4-5 months ago he fell in the bathtub and the squad had to come to get him out of the tub. When they got him out of the tub his feet knocked against the side of the tub and he developed a ulcer on the toe second toe. He has been seeing Dr. Silva in the wound care center for tx of the wound. Since that time he is getting around in a WC and not walking at all? He wears a AFO on the LLE for foot drop. When I asked him how he has had multiple falls if he is non-ambulatory and in a WC and he did not have an answer. He had a stroke in July of 2019. He was found to have severe R CCA stenosis and he was stented at [facility]. He has residual Left side weakness and L foot drop. He had an MRI of his brain in November 2020 that showed a solitary punctate acute ischemic infarct in the cortex of the right middle temporal gyrus. There were old cortical-based ischemic infarctions with cystic encephalomalacia and atrophy in the right frontal lobe, parietal lobe and left posterior parietal lobe. There was also an old lacunar cystic infarct in the left periventricular white matter. He has been incontinent of urine. He can not tell me if he is incontinent at home. He tells me that he knows when he has to go. I asked him why he does not call the nurse if he has to use the BR. He tells me that he can use a urinal but, he spills the urinal on himself and then gives the nurses a hard time when they want to change his clothes. He tells me that he had a sleep study 3-4 years ago but, he does not remember what the results are. Objective Data Objective Data Vital Signs: Vital Signs Temp Pulse Resp BP Pulse Ox O2 Del Method 97.1 F L 80 16 108/44 L 100 Room Air 06/19/22 07:22 06/19/22 07:22 06/19/22 07:22 06/19/22 07:22 06/19/22 07:22 06/19/22 09:09 Oxygen Delivery Method Room Air Weight: 177 lb 4.026 oz Intake & Output: Intake and Output for Last 24 Hours 06/17/22 06/18/22 06/19/22 23:59 23:59 23:59 Intake Total 2029 1760 / 1760 970 / 970 Output Total 1804 / 2054 2325 / 2325 550 / 550 Balance 225 / -25 -565 / -565 420 / 420 Lab / Micro Data Result Diagrams: 06/16/22 10:01 06/16/22 17:03 Labs: Laboratory Results - last 24 hr 06/16/22 16:39: POC Glucose 450 H 06/16/22 16:40: POC Glucose 451 H* 06/18/22 16:33: POC Glucose 264 H 06/19/22 06:05: POC Glucose 169 H Physical Exam Const Constitutional Narrative: He is drowsy and was half asleep when I entered his room. He did not fall asleep while I was talking with him. He answered I don't know to many of the questions I asked him General Appearance: cooperative HEENT normocephalic and head/scalp atraumatic Mouth: dry mucous membranes Neck supple, no JVD and no carotid bruits General: trachea midline Resp normal respiratory effort and clear to auscultation bilaterally Resp Narrative: weak effort Effort and Inspection: Negative for tachypneic, respiratory distress or uses accessory muscles Cardio regular rate, regular rhythm, S1 normal heart sound, S2 normal heart sound, no murmurs, no rub and no gallops Cardio Narrative: No ectopy GI normal to inspection, nondistended, normoactive bowel sounds, soft to palpation and non-tender Extremity Extremity Narrative: Pt did not want the LLE brace, socks and shoes off at this time and wanted to wait until tomorrow. Will defer exam at this time. General Extremity: Negative for edema Skin Wound Narrative: He has a diabetic toe ulcer and has been seeing Dr. Silva as an OP in the [facility]. He will not let me take his support hose off so exam deferred until a later date. Neuro CN's II-XII intact bilaterally Neuro Narrative: HE has generalized weakness in all extremities but, the left side is weaker than the left due to R side ischemic stroke in Jul (status post CCA stent at [facility]) Motor Exam: general weakness Psych Psych Narrative: slow though process and can not recall answers to many of the questions I asked him about his history. Speech is fluent. No dysarthria. He got agitated when I asked him if he would consider seeing a psychiatrist to manage the antidepressants and if he would consider seeing a psychotherapist for counselling. Appearance: appropriate Mood & Affect: flat affect Thought Content: No suicidality and No homicidality Assessment & Plan Assessment/Plan (1) Debility: (2) Generalized muscle weakness: (3) Multiple falls: (4) Diabetes mellitus type 2 in nonobese: PLAN: HGBA1C is 9.1. Does not check his BS's at home and does not follow a carb control diet. (5) JENNIFER (obstructive sleep apnea): PLAN: non-compliant with CPAP and the sleep study was at least 4-5 years ago per his . 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 On multiple different antidepressants over the years and none of them help. Also c/o anxiety. Has never seen a psychiatrist and saw a psychotherapist a few times and quit because he did not think it helped him (7) Coronary artery disease: PLAN: Has had CABG X 3 in the past (8) Rheumatoid arthritis: PLAN: On Methtrexate (9) Hypertension: (10) Peripheral arterial occlusive disease: (11) Insomnia: PLAN: He has untreated sleep apnea. He sleeps most of the day and then complains he does not sleep at night......his tells me that he does sleep at night because she has observed him asleep at night. PLAN: Plan 1. Continue therapy 2. Effexor can be associated with insomnia, anxiety and increased BP due to the norepinephrine component of the drug. Will decrease the dose to 150 mg and give it in the AM. Right now he seems to be more concerned about the anxiety and not being able to sleep. Lakisha has not worked in the past. Will try a low dose of Klonopin at HS and start tonight. 3. Obtain an overnight trending pulse ox - could he have sleep apnea and is this related to the depression he has had for 30-40 years? Tells me that he does not nap during the day. 4. TSH within the past year has been normal. 5. We discussed possibly trying therapy again with another therapist.....will continue to bring this up to him. 6. I think he has generalized weakness due to the fact that he is inactive for at least the past 4-5 months and is isolating in his house. He is very deconditioned. Why is he not walking and how does he fall out of a WC? 7. recent LDL was 116 and he is not on a lipid lowering agent......current recommendations for diabetics is LDL < 70. Will start Atorvastatin 10 mg daily 8. Blood sugars are not adequately controlled. He tells me he does not follow a diet at home and he does not check his blood sugars. He says his appetite has been poor lately. There is no current hemoglobin A1c on the chart. Continue Glyburide and add Tradjenta 5 mg daily. Check accuchecks AC and HS until they are controlled. Change diet to carb control/calorie control with 1850 calories. Add a medium SSI until blood sugars are controlled. 9. Will examine the wounds tomorrow when I see him. Charges/Coding Visit Charges Inpatient E&M: 66767 Subs Hosp L3
[2022-06-19 16:40] LABS: Bedside Glucose 330 mg/dL (74-106)
[2022-06-19] MEDS: Tamsulosin HCl 0.4 MG Capsule PO (17:05)
[2022-06-19] MEDS: Atorvastatin Calcium 10 MG Tablet PO (21:13)
[2022-06-19] MEDS: clonazePAM 0.5 MG Tablet PO (21:15)
--- NOTE | 2022-06-19 21:38 | NURSING ---
This RN called Resp. re: Trending Overnight Pulse OX. Pt was medicated and assessment complete, so Resp could set up Pulse Ox at any time. This RN was told they may be unable to give test tonight as they are checking about reading test afterwards, there is a problem at this time and they will let me know if unable to perform test this hs.
[2022-06-19 21:40] VITALS: BP 121/58; PULSE 96; RESP 16; TEMP 36.8; O2SAT 95
[2022-06-19 22:00] VITALS: PULSE 78; RESP 16; O2SAT 95
[2022-06-19 22:05] LABS: Bedside Glucose 328 mg/dL (74-106)
--- NOTE | 2022-06-20 02:36 | NURSING ---
Pt at edge of recliner upon rounding and required x2 assist to get repositioned properly. Pt was placed in bed for safety with BA and PA, d/t failing to call staff for assistance in recliner. Pt requires assistance with any transfers. Pt unable to answer staff of intentions with getting to edge of recliner. Pt has slept poorly this hs. Pt has eyes closed presently in bed and staff will continue to monitor pt.
--- NOTE | 2022-06-20 04:26 | NURSING ---
Pt set off alarm and found trying to get to side of bed. Bedding was wet and urinal missed. Pt did not call staff for help with urinal and then unable to tell staff if garments were wet. Garments needed changed for the second time and pt insists on wearing dress shirt instead of hospital gown through the night. Pt cleaned up and repositioned to recliner with PA and CA engaged. Call light within reach.
--- NOTE | 2022-06-20 06:30 | CPS ---
Trending p-ox not done d/t software needing new subscription.
[2022-06-20 07:05] LABS: Bedside Glucose 200 mg/dL (74-106)
[2022-06-20 07:12] LABS: Hemoglobin A1c 9.1 % (3.8-5.6)
[2022-06-20] MEDS: Insulin Lispro 100 UNIT/ML INSULN.PEN SC ×2 (07:37→17:26)
[2022-06-20] MEDS: Folic Acid 1 MG Tablet PO (07:38)
[2022-06-20] MEDS: Carvedilol 6.25 MG Tablet PO ×2 (07:38→17:22)
[2022-06-20] MEDS: Juven (unflavored) Packet 1 PACKET PO ×2 (07:38→17:22)
[2022-06-20] MEDS: Aspirin 81 MG TAB.CHEW PO (07:38)
[2022-06-20] MEDS: Potassium Chloride Oral Tablet 20 MEQ PO (07:39)
[2022-06-20] MEDS: Nystatin Powder 15gm Bottle 1 APPLIC TOPICAL ×2 (07:40→21:37)
[2022-06-20] MEDS: APIXABAN 5 MG TABLET PO ×2 (07:40→21:34)
[2022-06-20] MEDS: Venlafaxine HCl 75 MG Tablet 150 MG PO (07:40)
[2022-06-20] MEDS: Senna/Docusate Sodium 1 Tablet PO ×2 (07:41→21:35)
[2022-06-20] MEDS: Clopidogrel Bisulfate 75 MG Tablet PO (07:42)
[2022-06-20] MEDS: Menthol/Lanolin/Calamine/Znox 113 GM Tube 1 APPLIC TOPICAL ×2 (07:42→21:34)
[2022-06-20] MEDS: Lisinopril 5 MG Tablet PO (07:42)
[2022-06-20] MEDS: LINAGLIPTIN 5 MG TABLET PO (07:42)
[2022-06-20] MEDS: Glucerna Shake 120 ML LIQUID PO ×3 (07:44→17:22)
[2022-06-20 07:58] VITALS: BP 150/87; PULSE 87; RESP 16; TEMP 36.1; O2SAT 95
[2022-06-20] MEDS: oxyCODONE 5 MG Tablet PO (10:45)
[2022-06-20 11:50] LABS: Bedside Glucose 142 mg/dL (74-106)
[2022-06-20] MEDS: Tamsulosin HCl 0.4 MG Capsule PO (17:23)
[2022-06-20 17:25] LABS: Bedside Glucose 246 mg/dL (74-106)
[2022-06-20 19:54] VITALS: BP 112/52; PULSE 82; RESP 19; TEMP 36.1; O2SAT 97
[2022-06-20 20:03] VITALS: PULSE 72; RESP 16; O2SAT 95
[2022-06-20 20:36] LABS: Mucous, Urine 0 SEEN /hpf (<or=2+); Red Blood Cells-Urine 0 SEEN /hpf (0-5); Squamous Epithelial Cells - UA 0 SEEN /hpf (0-5)
[2022-06-20 20:38] LABS: Color, Urine Yellow (Yellow); Glucose, Dipstick 1000 mg/dl (Normal); Ketone-Dipstick Negative (Negative); Leukocyte Esterase-Dipstick 100 /ul (Negative); Nitrite-Dipstick Positive (Negative); Occult Blood-Urine Negative /ul (Negative); Protein-Dipstick 15 mg/dl (Negative); Urine Bilirubin Dipstick Negative (Negative); Urine Clarity Clear (Clear); Urine Urobilinogen Normal (Normal)
[2022-06-20 20:48] LABS: Bacteria RARE /hpf (None Seen); White Blood Cells 0-5 SEEN /hpf (0-5)
[2022-06-20 21:16] LABS: Bedside Glucose 329 mg/dL (74-106)
[2022-06-20] MEDS: Atorvastatin Calcium 10 MG Tablet PO (21:35)
[2022-06-20 21:48] VITALS: PULSE 80; O2SAT 97
[2022-06-21 07:00] LABS: Bedside Glucose 175 mg/dL (74-106)
[2022-06-21 07:25] VITALS: BP 116/68; PULSE 83; RESP 16; TEMP 37.2; O2SAT 96
[2022-06-21] MEDS: Insulin Lispro 100 UNIT/ML INSULN.PEN SC ×3 (08:13→17:17)
[2022-06-21] MEDS: Folic Acid 1 MG Tablet PO (09:06)
[2022-06-21] MEDS: LINAGLIPTIN 5 MG TABLET PO (09:06)
[2022-06-21] MEDS: Aspirin 81 MG TAB.CHEW PO (09:06)
[2022-06-21] MEDS: Carvedilol 6.25 MG Tablet PO ×2 (09:06→17:16)
[2022-06-21] MEDS: Clopidogrel Bisulfate 75 MG Tablet PO (09:06)
[2022-06-21] MEDS: Venlafaxine HCl 75 MG Tablet 150 MG PO (09:07)
[2022-06-21] MEDS: Juven (unflavored) Packet 1 PACKET PO ×2 (09:07→17:16)
[2022-06-21] MEDS: Lisinopril 5 MG Tablet PO (09:07)
[2022-06-21] MEDS: APIXABAN 5 MG TABLET PO ×2 (09:07→20:22)
[2022-06-21] MEDS: Glucerna Shake 120 ML LIQUID PO ×3 (09:07→17:16)
[2022-06-21] MEDS: Potassium Chloride Oral Tablet 20 MEQ PO (09:08)
[2022-06-21] MEDS: Menthol/Lanolin/Calamine/Znox 113 GM Tube 1 APPLIC TOPICAL ×2 (09:08→20:22)
[2022-06-21] MEDS: Senna/Docusate Sodium 1 Tablet PO ×2 (09:08→20:20)
[2022-06-21] MEDS: Nystatin Powder 15gm Bottle 1 APPLIC TOPICAL ×2 (09:08→20:21)
[2022-06-21] MEDS: Acetaminophen 500 MG Tablet 1000 MG PO ×2 (09:13→20:19)
[2022-06-21] MEDS: oxyCODONE 5 MG Tablet PO ×2 (09:13→20:20)
--- NOTE | 2022-06-21 10:15 | PN_ITS ---
Subjective Subjective Ray was seen on team rounds today. There was no family to participate in person or by phone. His works. Afebrile VSS-blood pressure is within goal. Maintaining appropriate oxygen saturation on RA Oral intake is good. He is eating 75 to 100% of most meals. Oral intake yesterday was 2980 cc. Blood sugar record was reviewed. He is currently on glyburide 10 mg BID and Tradjenta 5 mg daily. BS's at supper and at bedtime were very elevated yesterday. Discussed with nursing - Reviewed the PT/OT/ST notes Medication list reviewed. UA had only 0-5 WBCs with rare bacteria however it was nitrite positive. Urine culture is pending. All lab was personally reviewed. The white blood cell count is normal at 8.3 and the hemoglobin is stable at 13.9. MCV is elevated at 103.8. Sodium is normal at 138 and the potassium is 4.3. The BUN is 37, up from 27 on 06/16/2022. Creatinine is 1.27 today which is within his baseline for the past year. Ray is more alert today. He denies CP, SOB, palpitations, N/V, abd pain, calf pain and dysuria. Memory is not good and he is needing a lot of Voice cues with therapy. He is always willing to work with the therapist and has been cooperative. Objective Data Objective Data Vital Signs: Vital Signs Temp Pulse Resp BP Pulse Ox O2 Del Method O2 Flow Rate 98.9 F 83 16 116/68 96 Room Air 0 06/21/22 07:25 06/21/22 07:25 06/21/22 07:25 06/21/22 07:25 06/21/22 07:25 06/20/22 20:03 06/20/22 21:48 FiO2 21 06/20/22 21:48 Oxygen Flow Rate (L/min) 0 Oxygen Delivery Method Room Air Weight: 177 lb 4.026 oz Intake & Output: Intake and Output for Last 24 Hours 06/19/22 06/20/22 06/21/22 23:59 23:59 23:59 Intake Total 2069 / 2069 2980 / 3180 560 / 560 Output Total 1350 / 1350 1100 / 1300 750 / 750 Balance 720 / 720 1880 / 1880 -190 / -190 Lab / Micro Data Result Diagrams: 06/21/22 11:12 06/21/22 11:12 Labs: Laboratory Results - last 24 hr 06/20/22 11:24: POC Glucose 142 H 06/20/22 16:47: POC Glucose 246 H 06/20/22 19:30: Urine Color Yellow, Urine Clarity Clear, Urine pH 7.0, Ur Specific [place] 1.010, Urine Protein 15 H, Urine Glucose (UA) 1000 H, Urine Ketones Negative, Urine Occult Blood Negative, Urine Nitrite Positive H, Urine Bilirubin Negative, Urine Urobilinogen Normal, Ur Leukocyte Esterase 100 H, Urine RBC 0 SEEN, Urine WBC 0-5 SEEN, Ur Squamous Epith Cells 0 SEEN, Urine Bacteria RARE, Urine Mucus 0 SEEN 06/20/22 20:56: POC Glucose 329 H 06/21/22 06:10: POC Glucose 175 H Physical Exam Const Constitutional Narrative: He is more awake today and is able to participate in conversation. HEENT Mouth: dry mucous membranes Resp normal respiratory effort and clear to auscultation bilaterally Resp Narrative: No conversational dyspnea and he is not tachypneic. No cough. Cardio regular rate, regular rhythm, no murmurs, no rub and no gallops GI normal to inspection, nondistended, normoactive bowel sounds, soft to palpation and non-tender Extremity no calf tenderness Extremity Narrative: Feet are numb. He has abrasions on the R leg from his last fall. from the knee to the ankle. There is no erythema around any of the abrasions and most have an eschar. There is no purulent drainage. On the dorsal surface of the Left second toe there is ulceration. It is 80% slough. There is no erythema and no purulent DC. It is currently being bandaged with an adaptic covered by gauze. There is no odor to the wound. There are 2 reddened areas on the dorsum of the L great toe over the distal first metatarsal head........these are over jasmyne prominences and they zoltan with minimal pressure. Pedal pulses are 1+ with poor cap refill. The R knee is severely arthritic and painful. It fabrice from pain. There is marked atrophy of the gastrocnemius muscles bilaterally. Right greater than left. General Extremity: Negative for edema Skin Rashes: no rashes Assessment & Plan Assessment/Plan (1) Debility: (2) Generalized muscle weakness: PLAN: Continue therapy. (3) Multiple falls: PLAN: Multifactorial....due to generalized muscle weakness, lack of exercise, neuropathy, poor memory (poor technique in transferring and needing VC's to remember how to complete a task), poor safety awareness, lack of sleep due to untreated JENNIFER and chronic fatigue, etc. (4) Diabetes mellitus type 2 in nonobese: PLAN: uncontrolled with a XAHDp6B of 9.1. Not following a diet at home and not checking BS's at home. (5) JENNIFER (obstructive sleep apnea): PLAN: He tells me that the CPAP agitates him. I explained that if the sleep apnea remains untreated the depression, chronic fatigue and non-compliance will likely never improve. He is committed to wanting to go home at discharge. He is agreeable to trying some different masks to see if there is one that he can tolerate. He and his both tell me that his weight now is about the same as when he had his sleep study. (6) Depression: PLAN: This will not improve unless he is compliant with CPAP therapy and is able to get some rest. (7) Coronary artery disease: (8) Rheumatoid arthritis: PLAN: He tells me that he does not have RA.......he has the other kind of arthritis. ? Will discuss with Dr. Silva. (9) Hypertension: (10) Peripheral arterial occlusive disease: (11) Insomnia: PLAN: Plan 1. Continue therapy 2. Check a BMP and CBC with diff today. 3. I met with Ray, his Ju and their dtr at about 4 PM today. We discussed that he will likely not be strong enough to go home on June 30 which is how long Medicare has given him. He does not want to go to a NH and I asked him if he would be willing to go to tCU for a couple weeks to improve strength and he agreed. Will discuss with the SW and see if that is a possibility. I think if he will wear CPAP and we can get depression under control he may be able to go home. If he is getting sleep and the depression is controlled his memory will likely improve. 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 4. Await the results of the urine culture prior to starting antibiotics for possible infection. 5. Will reassess tomorrow and I am hopeful he will try the CPAP tonighy. Charges/Coding Visit Charges Inpatient E&M: 79443 Subs Hosp L2
[2022-06-21 11:26] LABS: Absolute Lymphocyte Count 0.84 X10^3/uL (0.83-4.51); Absolute Neutrophil Count 6.2 X10^3/uL (2.0-7.7); Basophil# 0.08 X10^3/uL; Hematocrit 41.4 % (40-54); Hemoglobin 13.9 g/dL (13.0-16.5); Lymphocyte # 0.84 X10^3/ul (0.83-4.51); Lymphocyte % 10.1 % (19-41); Mean Corp Hgb Conc 33.6 g/dL (32-36); Mean Corpuscular Hgb 34.8 pg (27.0-32.0); Mean Corpuscular Volume 103.8 fL (80-94); Mean Platelet Vol. 9.6 fl (6.2-12.0); Monocyte% 10.8 % (0-10); NRBC Flagged by Analyzer 0 % (0-5); Neutrophil # 6.21 X10^3/uL (2.7-7.7); Neutrophil % 74.6 % (47-70); Platelet Count 170 K/mm3 (150-450); RBC Distribution Width CV 14.9 % (11.6-14.6); RBC Distribution Width SD 56.6 fl (35.1-43.9); Red Blood Count 3.99 M/mm3 (4.6-6.2); White Blood Count 8.3 K/mm3 (4.4-11.0)
[2022-06-21 11:55] LABS: Bedside Glucose 151 mg/dL (74-106)
[2022-06-21 12:06] LABS: Anion Gap 8 (5-15); BUN 37 mg/dL (7-18); BUN/Creat Ratio 29.1 RATIO (10-20); Calcium,Total 9.1 mg/dL (8.5-10.1); Chloride 106 mmol/L (98-107); Creatinine, Serum 1.27 mg/dL (0.70-1.30); EST Glomerular Filtration Rate 59 mL/min (>60); Est Glom Filt Rate - Afr Amer 72 mL/min (>60); Estimated Creatinine Clearance 54.29 ml/min; Glucose 159 mg/dL (74-106); Potassium 4.3 mmol/L (3.5-5.1); Sodium Level 138 mmol/L (136-145)
--- NOTE | 2022-06-21 13:25 | CASEMGMT ---
Social Work IDT met with patient for Team meeting. Discussed patient's progress in PT/OT/SN. Educated to Medicare approval of 15 days with [facility] 06/30. Pt is currently x2 assist and pt lives at home with . does work close to full-time. will be visiting this afternoon, after work, to meet with the Dr to follow up on pt's chronic depression, untreated sleep apnea, and DC recommendations. SW to continue to follow to provide support and assist with DC planning. Will ReTeam next week. SW to continue to follow. MAXIM LopezW
--- NOTE | 2022-06-21 15:14 | CHAPLAIN ---
Type of Pastoral Visit _x__ Initial Visit ___ Follow-up Visit ___ On-call Visit ___ General Patient Visit ___ Spiritual Assessment ___ Family Conference ___ Bereavement ___ Rapid Response ___ Code Blue ___ Other (describe below) Pastoral Care Referral From _x__ Patient ___ Family ___ Nurse ___ Physician ___ Scrap Preparation Supervisor ___ Service Center Coordinator ___ Other (describe below) Sacrament/Intervention _x__ Active listening ___ Anointing ___ Amish ___ Bereavement ___ Communion ___ Ramona exploration ___ ___ Life review _x__ Prayer ___ Reconciliation ___ Sacrament of Sick _x__ Supportive presence ___ Wedding ___ Other (describe below) Pastoral Comments patient is remembered from previous admission a couple of years ago; pt has low affect but expresses appreciation for the visit and concern; pt states his physical condition; pt welcomes a prayer; pt keeps eyes closed through most of the visit; pt states I am sorry, but I am so tired
[2022-06-21] MEDS: Tamsulosin HCl 0.4 MG Capsule PO (17:17)
[2022-06-21 17:21] LABS: Bedside Glucose 249 mg/dL (74-106)
[2022-06-21] MEDS: Collagenase 30gm Tube 1 APPLIC TOPICAL ×2 (18:47→20:29)
[2022-06-21 19:56] VITALS: BP 100/55; PULSE 82; RESP 16; TEMP 36.6; O2SAT 98
[2022-06-21] MEDS: Atorvastatin Calcium 10 MG Tablet PO (20:21)
[2022-06-21] MEDS: Arthritis Pain Compound 60 CLICK TUBE TOPICAL (20:22)
--- NOTE | 2022-06-21 20:42 | PCA ---
AD TRAFFICKER offered to help patient with HS care and to get washed up for bed. Patient refused stating they did not want to mess with any of that and just wanted to wait until later. Offered to help patient at least change clothes and lay down, but patient said they would like to sleep in the chair tonight and did not wish to get clean clothes on. Nurse was made aware of patient refusal
[2022-06-21 20:51] LABS: Bedside Glucose 214 mg/dL (74-106)
[2022-06-22 02:45] VITALS: PULSE 88; RESP 18; O2SAT 91
[2022-06-22] MEDS: Albuterol 2.5 MG/3 ML VIAL.NEB. INHALATION (02:45)
[2022-06-22] MEDS: Collagenase 30gm Tube 1 APPLIC TOPICAL (04:08)
[2022-06-22] MEDS: Arthritis Pain Compound 60 CLICK TUBE TOPICAL ×3 (04:09→21:37)
[2022-06-22] MEDS: oxyCODONE 5 MG Tablet PO ×3 (04:29→21:40)
[2022-06-22] MEDS: Acetaminophen 500 MG Tablet 1000 MG PO ×2 (04:29→21:40)
[2022-06-22 06:40] LABS: Bedside Glucose 180 mg/dL (74-106)
[2022-06-22] MEDS: Insulin Lispro 100 UNIT/ML INSULN.PEN SC ×2 (08:00→17:05)
[2022-06-22] MEDS: LINAGLIPTIN 5 MG TABLET PO (08:02)
[2022-06-22] MEDS: Lisinopril 5 MG Tablet PO (08:02)
[2022-06-22] MEDS: Aspirin 81 MG TAB.CHEW PO (08:02)
[2022-06-22] MEDS: Carvedilol 6.25 MG Tablet PO ×2 (08:02→17:06)
[2022-06-22] MEDS: APIXABAN 5 MG TABLET PO ×2 (08:02→21:37)
[2022-06-22] MEDS: Folic Acid 1 MG Tablet PO (08:02)
[2022-06-22] MEDS: Venlafaxine HCl 75 MG Tablet 150 MG PO (08:02)
[2022-06-22] MEDS: Potassium Chloride Oral Tablet 20 MEQ PO (08:02)
[2022-06-22] MEDS: Clopidogrel Bisulfate 75 MG Tablet PO (08:03)
[2022-06-22] MEDS: Menthol/Lanolin/Calamine/Znox 113 GM Tube 1 APPLIC TOPICAL ×2 (08:03→21:37)
[2022-06-22] MEDS: Juven (unflavored) Packet 1 PACKET PO ×2 (08:03→17:06)
[2022-06-22] MEDS: Nystatin Powder 15gm Bottle 1 APPLIC TOPICAL ×2 (08:03→21:37)
[2022-06-22] MEDS: Senna/Docusate Sodium 1 Tablet PO ×2 (08:04→21:37)
--- NOTE | 2022-06-22 08:43 | CASEMGMT ---
Social Work Reviewed Dr progress note. Pt/ agreeable to TCU referral. Referral made to TCU admissions to admit under [facility] on 06/30. Acceptance depends on bed availability. SW to update pt/ and will continue to follow. Gina Daniel, [employer]MENT SALES MANAGER
[2022-06-22] MEDS: Glucerna Shake 120 ML LIQUID PO ×3 (08:54→17:07)
[2022-06-22] MEDS: Methotrexate 2.5 MG Tablet 17.5 MG PO (09:55)
[2022-06-22 10:00] VITALS: BP 122/62; PULSE 69; RESP 16; TEMP 36.6; O2SAT 95
--- NOTE | 2022-06-22 11:52 | PCM.PROGNOTE ---
Subjective Subjective Afebrile VSS Maintaining appropriate oxygen saturation on RA Oral intake is good Blood sugar record was reviewed. At bedtime blood sugar was 214 and the fasting today was 180. He was 249 at supper yesterday. Discussed with nursing - no problems that need addressed Reviewed the PT/OT/ST notes - talked with Lis Camacho and he did better today in PT. He was very alert when I talked to him this AM. He wore the CPAP for 3 hours last night and then felt like he was suffocating. Agreeable to trying another mask tonight. Medication list reviewed. No complaints today. He is agreeable to adding a daily dose of long acting Glargine to his drug regimen to get his BS's under control. He made good eye contact with me today and was appropriate and pleasant. Objective Data Objective Data Vital Signs: Vital Signs Temp Pulse Resp BP Pulse Ox O2 Del Method O2 Flow Rate 98 F 69 16 122/62 H 95 Room Air 0 06/22/22 10:00 06/22/22 10:00 06/22/22 10:00 06/22/22 10:00 06/22/22 10:00 06/22/22 10:00 06/20/22 21:48 FiO2 21 06/20/22 21:48 Oxygen Flow Rate (L/min) 0 Oxygen Delivery Method Room Air Weight: 179 lb 9.6 oz Intake & Output: Intake and Output for Last 24 Hours 06/20/22 06/21/22 06/22/22 23:59 23:59 23:59 Intake Total 2980 / 3180 1520 / 1620 570 / 570 Output Total 1100 / 1300 1250 / 1250 400 / 400 Balance 1880 / 1880 270 / 370 170 / 170 Lab / Micro Data Result Diagrams: 06/21/22 11:12 06/21/22 11:12 Labs: Laboratory Results - last 24 hr 06/21/22 11:12: Sodium 138, Potassium 4.3, Chloride 106, Carbon Dioxide 24.0, Anion Gap 8, BUN 37 H, Creatinine 1.27, Estim Creat Clear Calc 54.29, Est GFR (MDRD) Af Amer 72, Est GFR (MDRD) Non-Af 59 L, BUN/Creatinine Ratio 29.1 H, Glucose 159 H, Calcium 9.1 06/21/22 11:33: POC Glucose 151 H 06/21/22 16:55: POC Glucose 249 H 06/21/22 20:15: POC Glucose 214 H 06/22/22 06:18: POC Glucose 180 H Micro: Microbiology 06/20/22 19:30 Urine, Clean Catch Urine Culture - Final Mixed Gram Positive Organisms Physical Exam Resp normal respiratory effort and clear to auscultation bilaterally Resp Narrative: No conversational dyspnea and he is not tachypneic. No cough. Cardio regular rate, regular rhythm, no murmurs, no rub and no gallops GI normal to inspection, nondistended, normoactive bowel sounds, soft to palpation and non-tender Extremity no calf tenderness General Extremity: Negative for edema Assessment & Plan Assessment/Plan (1) Debility: (2) Generalized muscle weakness: PLAN: Continue therapy. (3) Multiple falls: PLAN: Multifactorial....due to generalized muscle weakness, lack of exercise, neuropathy, poor memory (poor technique in transferring and needing VC's to remember how to complete a task), poor safety awareness, lack of sleep due to untreated JENNIFER and chronic fatigue, etc. (4) Diabetes mellitus type 2 in nonobese: PLAN: uncontrolled with a [id number] of 9.1. Not following a diet at home and not checking BS's at home. (5) JENNIFER (obstructive sleep apnea): PLAN: He tells me that the CPAP agitates him. I explained that if the sleep apnea remains untreated the depression, chronic fatigue and non-compliance will likely never improve. He is committed to wanting to go home at discharge. He is agreeable to trying some different masks to see if there is one that he can tolerate. He and his both tell me that his weight now is about the same as when he had his sleep study. (6) Depression: PLAN: This will not improve unless he is compliant with CPAP therapy and is able to get some rest. (7) Coronary artery disease: (8) Rheumatoid arthritis: PLAN: He tells me that he does not have RA.......he has the other kind of arthritis. ? Will discuss with Dr. Silva. (9) Hypertension: (10) Peripheral arterial occlusive disease: (11) Insomnia: PLAN: Slept all night per nursing. Much more alert today. PLAN: Plan 1. Will have the RT try a different mask with him tonight. 2. DC Micronase. Start Amaryl 4 mg Q AM. Give 8 units of Lantus in the AM. Start Glucophage 500 mg BID. Continue Tradjenta. Continue with SSI until we get the blood sugars controlled and then will DC. 3. Spoke with the SW and she has placed him on a waiting list for a bed when he is discharged from acute rehab. 4. Start Wellbutrin XL 150 mg in the AM for depression. Monitor BP with the addition of Wellbutrin for any increase.....currently the BP is controlled. Charges/Coding Visit Charges Inpatient E&M: 91948 Subs Hosp L1
[2022-06-22 12:20] LABS: Bedside Glucose 83 mg/dL (74-106)
[2022-06-22] MEDS: Insulin Glargine-YFGN 100 UNIT/ML Pen 8 UNIT SC (14:21)
[2022-06-22 17:01] LABS: Bedside Glucose 179 mg/dL (74-106)
[2022-06-22] MEDS: metFORMIN HCl 500 MG Tablet PO (17:06)
[2022-06-22] MEDS: Tamsulosin HCl 0.4 MG Capsule PO (17:06)
[2022-06-22 21:06] LABS: Bedside Glucose 191 mg/dL (74-106)
[2022-06-22] MEDS: Atorvastatin Calcium 10 MG Tablet PO (21:36)
[2022-06-22 21:59] VITALS: BP 117/55; PULSE 80; RESP 16; TEMP 36.3; O2SAT 97
--- NOTE | 2022-06-23 01:03 | NURSING ---
Pt calls requesting CPAP mask be changed. Applied small sized triangular-shaped mask covering the nose only- initial mask placed covered the nose and mouth. Mask secured for comfort. Will continue to monitor.
--- NOTE | 2022-06-23 02:14 | NURSING ---
Significant right-sided lean in recliner chair. Pillow placed under right arm. Pillow behind head repositioned. CPAP remains in use. Alarm in use. Call light w/ in reach. Will continue to monitor.
[2022-06-23] MEDS: Collagenase 30gm Tube 1 APPLIC TOPICAL ×3 (04:51→23:06)
[2022-06-23] MEDS: Arthritis Pain Compound 60 CLICK TUBE TOPICAL ×3 (04:51→23:08)
[2022-06-23] MEDS: Acetaminophen 500 MG Tablet 1000 MG PO ×2 (05:06→23:05)
[2022-06-23] MEDS: oxyCODONE 5 MG Tablet PO ×2 (05:07→23:09)
[2022-06-23 06:46] LABS: Bedside Glucose 119 mg/dL (74-106)
[2022-06-23 08:47] VITALS: BP 121/65; PULSE 91; RESP 18; TEMP 36.6; O2SAT 94
[2022-06-23] MEDS: Aspirin 81 MG TAB.CHEW PO (08:55)
[2022-06-23] MEDS: Glimepiride 4 MG Tablet PO (08:55)
[2022-06-23] MEDS: Carvedilol 6.25 MG Tablet PO ×2 (08:55→17:06)
[2022-06-23] MEDS: Venlafaxine HCl 75 MG Tablet 150 MG PO (08:56)
[2022-06-23] MEDS: Folic Acid 1 MG Tablet PO (08:56)
[2022-06-23] MEDS: Potassium Chloride Oral Tablet 20 MEQ PO (08:56)
[2022-06-23] MEDS: APIXABAN 5 MG TABLET PO ×2 (08:56→23:07)
[2022-06-23] MEDS: LINAGLIPTIN 5 MG TABLET PO (08:56)
[2022-06-23] MEDS: Lisinopril 5 MG Tablet PO (08:56)
[2022-06-23] MEDS: metFORMIN HCl 500 MG Tablet PO ×2 (08:56→17:06)
[2022-06-23] MEDS: Clopidogrel Bisulfate 75 MG Tablet PO (08:56)
[2022-06-23] MEDS: buPROPion (XL) 150 MG TABLET.XL PO (08:57)
[2022-06-23] MEDS: Insulin Glargine-YFGN 100 UNIT/ML Pen 8 UNIT SC (08:59)
[2022-06-23] MEDS: Juven (unflavored) Packet 1 PACKET PO ×2 (09:00→17:06)
[2022-06-23] MEDS: Menthol/Lanolin/Calamine/Znox 113 GM Tube 1 APPLIC TOPICAL ×2 (09:01→23:07)
[2022-06-23] MEDS: Glucerna Shake 120 ML LIQUID PO ×3 (09:01→17:06)
[2022-06-23] MEDS: Nystatin Powder 15gm Bottle 1 APPLIC TOPICAL ×2 (09:05→23:07)
[2022-06-23 11:00] VITALS: O2SAT 96
--- NOTE | 2022-06-23 12:10 | PN_ITS ---
Subjective Subjective Afebrile VSS Maintaining appropriate oxygen saturation on RA Oral intake is good Blood sugar record was reviewed. All blood sugars yesterday were less than 200. The fasting blood sugar today is 119. At bedtime sugar was 191. Starting Amaryl, Glucophage and Glargine today. Micronase has been discontinued. Discussed with nursing - no problems that need addressed Reviewed the PT/OT/ST notes Medication list reviewed. Wellbutrin XL 150 mg daily to start today. wore a different CPAP mask last night and took off after 3 -4 hours. Tells me that he had a hard time falling asleep last night.......now that he is willing to keep trying the CPAP will add low dose Trazodone at HS to help him fall asleep. Denies CP, SOB, lightheadedness, N/V, dysuria. He is now allowing nursing to help him stand to urinate and no more spilling of the urinal on himself. The compounded arthritic cream has been helping his knee pain on the R but it is still painful and he is agreeable to injecting the R knee. He has se carolyn arthritis of the R knee with jasmyne enlargement. Could not get into the joint from a medial approach so moved anteriorly and was able to access the joint with 90 degree flexion of the knee. I looked in the EMR and he has not had any XRAYs of the R knee at this institution. Objective Data Objective Data Vital Signs: Vital Signs Temp Pulse Resp BP Pulse Ox O2 Del Method O2 Flow Rate 97.8 F 91 18 121/65 H 96 Room Air 0 06/23/22 08:47 06/23/22 08:47 06/23/22 08:47 06/23/22 08:47 06/23/22 11:00 06/23/22 11:00 06/20/22 21:48 FiO2 21 06/20/22 21:48 Oxygen Flow Rate (L/min) 0 Oxygen Delivery Method Room Air Weight: 179 lb 9.6 oz Intake & Output: Intake and Output for Last 24 Hours 06/21/22 06/22/22 06/23/22 23:59 23:59 23:59 Intake Total 1520 / 1620 1250 / 1250 Output Total 1250 / 1250 800 / 800 550 / 550 Balance 270 / 370 450 / 450 -550 / -550 Lab / Micro Data Result Diagrams: 06/21/22 11:12 06/21/22 11:12 Labs: Laboratory Results - last 24 hr 06/22/22 12:00: POC Glucose 83 06/22/22 16:36: POC Glucose 179 H 06/22/22 20:48: POC Glucose 191 H 06/23/22 06:26: POC Glucose 119 H Micro: Microbiology 06/20/22 19:30 Urine, Clean Catch Urine Culture - Final Mixed Gram Positive Organisms Physical Exam Const alert and oriented x3 General Appearance: cooperative Resp clear to auscultation bilaterally Cardio regular rate, regular rhythm and no gallops GI normal to inspection, nondistended, normoactive bowel sounds, soft to palpation and non-tender Extremity Extremity Narrative: see the A/P for description of the wound on the L second toe. 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 Silva. There is exposed bone but, bone bx was negative for osteomyelitis. when it is 90 or > granulating will change the dressing to Fibracol while he is in the hospital. Finding a shoe or a slipper with a hard sole and cutting out the area above the second toe no the left will help with healing the ulcer. Will continue Singh (6) Depression: PLAN: Wellbutrin has been added to the Effexor. (7) Peripheral arterial occlusive disease: (8) Psoriatic arthritis: PLAN: Plan 1. The Left second toe was debrided with a #3 curette. Anesthesia was achieved with EMLA cream. He tolerate the treatment well. The center of the wound since the Santyl is now red and granulating. There is a rim of slough at the periphery of the wound that was removed. Santyl and a gauze were applied to the wound. 2. The right knee was cleaned in the usual manner. We used a anterior approach. 2% lidocaine was utilized to numb the skin. An injection was then performed using 40 mg of Kenalog with 2% lidocaine. A dressing was placed over the injection site. He tolerated the procedure well with only transint pain caused by injection on the Lidocaine to numb the skin. There were no complications. 3. Obtain an XRAY of the R knee. Charges/Coding Visit Charges Inpatient E&M: 47381 Subs Hosp L3
[2022-06-23 12:20] LABS: Bedside Glucose 139 mg/dL (74-106)
[2022-06-23] MEDS: Triamcinolone Acetonide 40 MG/ML Vial IM (12:25)
[2022-06-23] MEDS: Lidocaine 2% (20 ml mdv) 20 ML Vial INFILT (12:26)
[2022-06-23] MEDS: Sodium Chloride 0.65% 1 SPRAY SPRAY.BTL 2 SPRAY NASAL ×2 (14:50→23:06)
--- NOTE | 2022-06-23 15:35 | RAD_ITS ---
STUDY: X-RAY - LEFT KNEE REASON FOR EXAM: Male, 72 years old. PAIN AND ASHLEY ENLARGEMENT TECHNIQUE: 3 view(s) of the knee. COMPARISON: Left tibia 03/06/2019 FINDINGS: Spurs involving the tibial spine and femoral notch more pronounced on current examination. There are multiple small areas of osteopenia in the femur and tibia not visualized on previous examination. There is some cortical lucency involving the femoral notch lateral more than medial. Normal proximal tibiofibular articulation. There is mild to moderate degenerative arthrosis of the medial femorotibial compartment. There is mild to moderate degenerative arthrosis of the lateral femorotibial compartment. There is moderate degenerative arthrosis of the patellofemoral articulation. There is no demonstrated joint effusion. There are atherosclerotic calcifications. RAD/Knee 3 Views IMPRESSION: Progression of degenerative changes. There is osteopenia may be due to a systemic or neoplastic disease such as multiple myeloma. Areas of lucency involving the femoral notch may be projectional in nature. Follow-up examination MRI is recommended. There is no acute displaced fracture or dislocation. Electronically Signed: Felecia Lizama MD at 16:42 EST Reading Location ID and State: , Service support ,
[2022-06-23] MEDS: Insulin Lispro 100 UNIT/ML INSULN.PEN SC (17:05)
[2022-06-23] MEDS: Tamsulosin HCl 0.4 MG Capsule PO (17:06)
[2022-06-23 17:31] LABS: Bedside Glucose 219 mg/dL (74-106)
[2022-06-23 20:39] VITALS: BP 117/63; PULSE 69; RESP 17; TEMP 36.6; O2SAT 95
[2022-06-23] MEDS: Senna/Docusate Sodium 1 Tablet PO (23:06)
[2022-06-23] MEDS: Atorvastatin Calcium 10 MG Tablet PO (23:07)
[2022-06-23] MEDS: Zolpidem Tartrate 5 MG Tablet PO (23:08)
[2022-06-23] MEDS: Ipratropium Bromide 0.06% NASAL SPRAY 2 SPRAY NASAL (23:08)
[2022-06-23 23:40] LABS: Bedside Glucose 307 mg/dL (74-106)
--- NOTE | 2022-06-24 | NURSING ---
PT WORE MOST RECENTLY OBTAINED CPAP MASK OBTAINED THE PRIOR NIGHT BY Senthil (RESMED WITH [employer] BLUE STRAPS) FROM APPROX 10PM UNTIL MIDNIGHT AT WHICH POINT PT REMOVED. PT REFUSES TO PUT MASK BACK ON.
[2022-06-24] MEDS: oxyCODONE 5 MG Tablet PO ×3 (06:38→22:19)
[2022-06-24] MEDS: Arthritis Pain Compound 60 CLICK TUBE TOPICAL ×3 (06:39→22:22)
[2022-06-24] MEDS: Sodium Chloride 0.65% 1 SPRAY SPRAY.BTL 2 SPRAY NASAL ×3 (06:39→22:20)
[2022-06-24 07:20] LABS: Bedside Glucose 258 mg/dL (74-106)
[2022-06-24] MEDS: Insulin Lispro 100 UNIT/ML INSULN.PEN SC ×3 (07:55→16:31)
[2022-06-24] MEDS: Juven (unflavored) Packet 1 PACKET PO ×2 (07:56→16:27)
[2022-06-24] MEDS: Potassium Chloride Oral Tablet 20 MEQ PO (07:56)
[2022-06-24] MEDS: Ipratropium Bromide 0.06% NASAL SPRAY 2 SPRAY NASAL ×2 (07:56→22:22)
[2022-06-24] MEDS: Aspirin 81 MG TAB.CHEW PO (07:56)
[2022-06-24] MEDS: Folic Acid 1 MG Tablet PO (07:56)
[2022-06-24] MEDS: metFORMIN HCl 500 MG Tablet PO ×2 (07:56→16:28)
[2022-06-24] MEDS: Glimepiride 4 MG Tablet PO (07:56)
[2022-06-24] MEDS: Carvedilol 6.25 MG Tablet PO ×2 (07:56→16:29)
[2022-06-24] MEDS: Venlafaxine HCl 75 MG Tablet 150 MG PO (07:56)
[2022-06-24] MEDS: Clopidogrel Bisulfate 75 MG Tablet PO (07:57)
[2022-06-24] MEDS: LINAGLIPTIN 5 MG TABLET PO (07:57)
[2022-06-24] MEDS: APIXABAN 5 MG TABLET PO ×2 (07:57→22:23)
[2022-06-24] MEDS: Lisinopril 5 MG Tablet PO (07:58)
[2022-06-24] MEDS: Insulin Glargine-YFGN 100 UNIT/ML Pen 8 UNIT SC ×2 (07:58→11:18)
[2022-06-24] MEDS: buPROPion (XL) 150 MG TABLET.XL PO (07:58)
[2022-06-24] MEDS: Menthol/Lanolin/Calamine/Znox 113 GM Tube 1 APPLIC TOPICAL ×2 (08:00→22:21)
[2022-06-24] MEDS: Nystatin Powder 15gm Bottle 1 APPLIC TOPICAL ×2 (08:00→22:21)
[2022-06-24] MEDS: Glucerna Shake 120 ML LIQUID PO ×3 (08:02→16:30)
[2022-06-24 08:12] VITALS: BP 99/63; PULSE 91; RESP 16; TEMP 37.2; O2SAT 97
--- NOTE | 2022-06-24 09:37 | PCM.PROGNOTE ---
Subjective Subjective Afebrile VSS Maintaining appropriate oxygen saturation on RA Oral intake is good The blood sugar record was reviewed. The fasting blood sugar yesterday was 119, lunchtime was 139, supper was 219 and he was 307 at at bedtime. Fasting blood sugar this morning was 258. Discussed with nursing - no problems that need addressed Reviewed the PT/OT/ST notes Medication list reviewed. Ray denies CP, SOB, palpitations, N/V, dysuria, lightheadedness and calf pain. He tells me that he is still feeling depressed. He was started on Wellbutrin XL 150 mg yesterday. Objective Data Objective Data Vital Signs: Vital Signs Temp Pulse Resp BP Pulse Ox O2 Del Method O2 Flow Rate 98.9 F 91 16 99/63 97 Room Air 0 06/24/22 08:12 06/24/22 08:12 06/24/22 08:12 06/24/22 08:12 06/24/22 08:12 06/24/22 08:12 06/20/22 21:48 FiO2 21 06/20/22 21:48 Oxygen Flow Rate (L/min) 0 Oxygen Delivery Method Room Air Weight: 179 lb 9.6 oz Intake & Output: Intake and Output for Last 24 Hours 06/22/22 06/23/22 06/24/22 23:59 23:59 23:59 Intake Total 1250 / 1250 880 / 880 800 / 800 Output Total 800 / 800 1500 / 1500 500 / 500 Balance 450 / 450 -620 / -620 300 / 300 Lab / Micro Data Result Diagrams: 06/21/22 11:12 06/21/22 11:12 Labs: Laboratory Results - last 24 hr 06/23/22 12:02: POC Glucose 139 H 06/23/22 17:04: POC Glucose 219 H 06/23/22 22:59: POC Glucose 307 H 06/24/22 06:44: POC Glucose 258 H Micro: Microbiology 06/20/22 19:30 Urine, Clean Catch Urine Culture - Final Mixed Gram Positive Organisms Radiography Diagnostic Testing: Radiology Impression Knee X-Ray 06/23/22 15:35 IMPRESSION: Progression of degenerative changes. There is osteopenia may be due to a systemic or neoplastic disease such as multiple myeloma. Areas of lucency involving the femoral notch may be projectional in nature. Follow-up examination MRI is recommended. There is no acute displaced fracture or dislocation. Electronically Signed: Felecia Lizama MD at 16:42 EST Reading Location ID and State: , Service support , Physical Exam Const alert and oriented x3 General Appearance: cooperative Resp normal respiratory effort and clear to auscultation bilaterally Resp Narrative: No conversational dyspnea and he is not tachypneic. No cough. Cardio regular rate, regular rhythm and no murmurs GI normal to inspection, nondistended, normoactive bowel sounds, soft to palpation and non-tender Extremity no calf tenderness Extremity Narrative: see the A/P for description of the wound on the L second toe. 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 Continue therapy 2. Increase a.m. glargine to 16 units daily 3. Increase sliding scale protocol to medium high. 4. Continue efforts to find a CPAP mask that he will wear at night. Consider ordering a new sleep study because he has lost weight since his last sleep study 4-5 years ago. Charges/Coding Visit Charges Inpatient E&M: 07384 Subs Hosp L2
[2022-06-24] MEDS: Collagenase 30gm Tube 1 APPLIC TOPICAL ×2 (11:20→22:20)
[2022-06-24 11:45] LABS: Bedside Glucose 195 mg/dL (74-106)
[2022-06-24] MEDS: Tamsulosin HCl 0.4 MG Capsule PO (16:29)
[2022-06-24 16:56] LABS: Bedside Glucose 253 mg/dL (74-106)
[2022-06-24 20:00] VITALS: BP 104/55; PULSE 84; RESP 17; TEMP 36.6; O2SAT 97
[2022-06-24] MEDS: Acetaminophen 500 MG Tablet 1000 MG PO (22:19)
[2022-06-24] MEDS: Senna/Docusate Sodium 1 Tablet PO (22:20)
[2022-06-24] MEDS: Zolpidem Tartrate 5 MG Tablet PO (22:21)
[2022-06-24] MEDS: Atorvastatin Calcium 10 MG Tablet PO (22:21)
[2022-06-24 22:35] LABS: Bedside Glucose 217 mg/dL (74-106)
--- NOTE | 2022-06-25 00:11 | NURSING ---
Addendum entered by Jamilah Cabrera 06/25/22 03:06: PT HAS PULLED OFF MASK AGAIN BY 0245 AND STATES HE WILL NOT WEAR IT ANYMORE TONIGHT. Original Note: PT APPLIES RESMED [employer] BLUE STRAPPED CPAP FACE MASK AFTER MEDS APPROX 10PM AND IS NOTED TO PULL IT OFF BY 11:30PM. AT MIDNIGHT, AFTER BEING ASSISTED WITH URINATION, PT AGREES TO APPLY MASK AGAIN. WILL CONTINUE TO OBSERVE.
[2022-06-25] MEDS: Sodium Chloride 0.65% 1 SPRAY SPRAY.BTL 2 SPRAY NASAL ×3 (05:00→22:09)
[2022-06-25] MEDS: Arthritis Pain Compound 60 CLICK TUBE TOPICAL ×3 (05:01→22:08)
[2022-06-25 07:25] LABS: Bedside Glucose 171 mg/dL (74-106)
[2022-06-25] MEDS: Insulin Lispro 100 UNIT/ML INSULN.PEN SC ×2 (08:40→18:40)
[2022-06-25 08:51] VITALS: BP 128/74; PULSE 89; RESP 16; TEMP 36.5; O2SAT 97
[2022-06-25] MEDS: Ipratropium Bromide 0.06% NASAL SPRAY 2 SPRAY NASAL ×2 (09:06→22:09)
[2022-06-25] MEDS: Aspirin 81 MG TAB.CHEW PO (09:12)
[2022-06-25] MEDS: Juven (unflavored) Packet 1 PACKET PO ×2 (09:12→18:42)
[2022-06-25] MEDS: Carvedilol 6.25 MG Tablet PO ×2 (09:12→18:42)
[2022-06-25] MEDS: metFORMIN HCl 500 MG Tablet PO ×2 (09:12→18:42)
[2022-06-25] MEDS: Folic Acid 1 MG Tablet PO (09:12)
[2022-06-25] MEDS: Glimepiride 4 MG Tablet PO (09:12)
[2022-06-25] MEDS: Potassium Chloride Oral Tablet 20 MEQ PO (09:12)
[2022-06-25] MEDS: Senna/Docusate Sodium 1 Tablet PO ×2 (09:12→22:08)
[2022-06-25] MEDS: Clopidogrel Bisulfate 75 MG Tablet PO (09:12)
[2022-06-25] MEDS: Lisinopril 5 MG Tablet PO (09:13)
[2022-06-25] MEDS: Collagenase 30gm Tube 1 APPLIC TOPICAL ×2 (09:13→22:11)
[2022-06-25] MEDS: buPROPion (XL) 150 MG TABLET.XL PO (09:13)
[2022-06-25] MEDS: Glucerna Shake 120 ML LIQUID PO ×3 (09:13→18:46)
[2022-06-25] MEDS: Venlafaxine HCl 75 MG Tablet 150 MG PO (09:13)
[2022-06-25] MEDS: LINAGLIPTIN 5 MG TABLET PO (09:13)
[2022-06-25] MEDS: APIXABAN 5 MG TABLET PO ×2 (09:13→22:09)
[2022-06-25] MEDS: Insulin Glargine-YFGN 100 UNIT/ML Pen 16 UNIT SC (09:14)
[2022-06-25] MEDS: Nystatin Powder 15gm Bottle 1 APPLIC TOPICAL ×2 (09:18→22:10)
[2022-06-25] MEDS: Menthol/Lanolin/Calamine/Znox 113 GM Tube 1 APPLIC TOPICAL ×2 (09:18→22:10)
[2022-06-25 12:10] LABS: Bedside Glucose 149 mg/dL (74-106)
[2022-06-25 17:06] LABS: Bedside Glucose 265 mg/dL (74-106)
[2022-06-25] MEDS: Tamsulosin HCl 0.4 MG Capsule PO (18:42)
[2022-06-25 22:00] VITALS: BP 117/61; PULSE 84; RESP 18; TEMP 36.8; O2SAT 99
[2022-06-25] MEDS: Zolpidem Tartrate 5 MG Tablet PO (22:08)
[2022-06-25] MEDS: Atorvastatin Calcium 10 MG Tablet PO (22:09)
[2022-06-25] MEDS: Acetaminophen 500 MG Tablet 1000 MG PO (22:16)
[2022-06-25] MEDS: oxyCODONE 5 MG Tablet PO (22:16)
[2022-06-25 22:55] LABS: Bedside Glucose 218 mg/dL (74-106)
--- NOTE | 2022-06-26 03:19 | NURSING ---
Reviewed and agree with Celia GUTIERREZ, documentation and assessment charting.
[2022-06-26] MEDS: Sodium Chloride 0.65% 1 SPRAY SPRAY.BTL 2 SPRAY NASAL ×3 (06:58→21:37)
[2022-06-26] MEDS: Arthritis Pain Compound 60 CLICK TUBE TOPICAL ×3 (06:59→21:36)
[2022-06-26 07:27] VITALS: BP 108/51; PULSE 71; RESP 17; TEMP 36.4; O2SAT 100
[2022-06-26 07:40] LABS: Bedside Glucose 139 mg/dL (74-106)
[2022-06-26] MEDS: metFORMIN HCl 500 MG Tablet PO ×2 (08:24→16:58)
[2022-06-26] MEDS: Juven (unflavored) Packet 1 PACKET PO ×2 (08:24→16:59)
[2022-06-26] MEDS: Venlafaxine HCl 75 MG Tablet 150 MG PO (08:24)
[2022-06-26] MEDS: Lisinopril 5 MG Tablet PO (08:25)
[2022-06-26] MEDS: LINAGLIPTIN 5 MG TABLET PO (08:25)
[2022-06-26] MEDS: APIXABAN 5 MG TABLET PO ×2 (08:25→21:34)
[2022-06-26] MEDS: Clopidogrel Bisulfate 75 MG Tablet PO (08:26)
[2022-06-26] MEDS: buPROPion (XL) 150 MG TABLET.XL PO (08:26)
[2022-06-26] MEDS: Carvedilol 6.25 MG Tablet PO ×2 (08:26→16:58)
[2022-06-26] MEDS: Aspirin 81 MG TAB.CHEW PO (08:26)
[2022-06-26] MEDS: Folic Acid 1 MG Tablet PO (08:26)
[2022-06-26] MEDS: Potassium Chloride Oral Tablet 20 MEQ PO (08:26)
[2022-06-26] MEDS: Glimepiride 4 MG Tablet PO (08:26)
[2022-06-26] MEDS: Ipratropium Bromide 0.06% NASAL SPRAY 2 SPRAY NASAL ×2 (08:27→21:36)
[2022-06-26] MEDS: Collagenase 30gm Tube 1 APPLIC TOPICAL (08:28)
[2022-06-26] MEDS: Senna/Docusate Sodium 1 Tablet PO ×2 (08:28→21:35)
[2022-06-26] MEDS: Nystatin Powder 15gm Bottle 1 APPLIC TOPICAL (08:29)
[2022-06-26] MEDS: Insulin Glargine-YFGN 100 UNIT/ML Pen 16 UNIT SC (08:30)
[2022-06-26] MEDS: Menthol/Lanolin/Calamine/Znox 113 GM Tube 1 APPLIC TOPICAL (08:35)
[2022-06-26] MEDS: Glucerna Shake 120 ML LIQUID PO ×3 (08:37→16:58)
[2022-06-26] MEDS: oxyCODONE 5 MG Tablet PO ×2 (11:36→21:34)
[2022-06-26 12:00] LABS: Bedside Glucose 141 mg/dL (74-106)
[2022-06-26] MEDS: Acetaminophen 500 MG Tablet 1000 MG PO ×2 (13:45→21:34)
[2022-06-26] MEDS: Lidocaine 4% 50 ML Bottle TOPICAL (14:58)
[2022-06-26] MEDS: Insulin Lispro 100 UNIT/ML INSULN.PEN SC (16:57)
[2022-06-26] MEDS: Tamsulosin HCl 0.4 MG Capsule PO (16:59)
[2022-06-26 17:31] LABS: Bedside Glucose 186 mg/dL (74-106)
--- NOTE | 2022-06-26 18:34 | PCM.PROGNOTE ---
Subjective Subjective Afebrile VSS Maintaining appropriate oxygen saturation on RA Oral intake is good. He is eating 75 to 100% of most meals. The blood sugar record was reviewed. Fasting blood sugar was 139 today. The lunch sugar was 141 and the blood sugar with supper is 186, down from 265 yesterday with changes in the glargine dose. Discussed with nursing - no problems that need addressed. Nursing states he only wore the CPAP for a few hours last night but the patient tells me he wore it for 5 hours. I am more inclined to believe he wore it for 5 hours because he is much more alert today. Reviewed the PT/OT/ST notes Medication list reviewed. He tells me that he does not fell good and when I asked him in what way he told me emotionally. He did much better with stair climbing today and he is getting stronger. He tells me that the R knee pain is better since the steroid injection in the R knee. Denies dysuria, abdominal pain, nausea/vomiting, shortness of breath. Objective Data Objective Data Vital Signs: Vital Signs Temp Pulse Resp BP Pulse Ox O2 Del Method O2 Flow Rate 97.6 F L 71 17 108/51 L 100 Room Air 0 06/26/22 07:27 06/26/22 07:27 06/26/22 07:27 06/26/22 07:27 06/26/22 07:27 06/26/22 07:27 06/20/22 21:48 FiO2 21 06/20/22 21:48 Oxygen Flow Rate (L/min) 0 Oxygen Delivery Method Room Air Weight: 179 lb 9.6 oz Intake & Output: Intake and Output for Last 24 Hours 06/24/22 06/25/22 06/26/22 23:59 23:59 23:59 Intake Total 1600 / 1600 1340 / 1340 1060 / 1060 Output Total 1750 / 1850 1650 / 1650 850 / 850 Balance -150 / -250 -310 / -310 210 / 210 Lab / Micro Data Result Diagrams: 06/21/22 11:12 06/21/22 11:12 Labs: Laboratory Results - last 24 hr 06/25/22 22:23: POC Glucose 218 H 06/26/22 07:03: POC Glucose 139 H 06/26/22 11:38: POC Glucose 141 H 06/26/22 16:55: POC Glucose 186 H Micro: Microbiology 06/20/22 19:30 Urine, Clean Catch Urine Culture - Final Mixed Gram Positive Organisms Physical Exam Const alert and oriented x3 Constitutional Narrative: Flat affect still. Tolerating the Wellbutrin with no adverse side effects. Extremity General Extremity: Negative for edema Skin Wound Narrative: The left 2nd toe was debrided again today. A gauze soaked with 4% Lidocaine was applied to the wound for 10 minutes prior to debridement and good anesthesia was achieved. He tolerated the procedure well. The wound is 90% granulating. There was a rim of slough around the margin. There is a small amount of visible bone at 9 and 12 o'clock. The amount of visible bone at 9 o'clock is smaller than it was the last time I debrided the wound. There is no periwound erythema and there is no increased warmth to touch. There is no odor and no purulent DC. The plantar surface of the R calcaneus has a hard callous which he gets scraped. It is tender to palpate but, there is no opening in the skin and no erythema or increased warmth to touch. The callous is over a jasmyne prominence. Psych Psych Narrative: Affect is still flat but, he is more cooperative and more alert. Exercise tolerance is improving and so is strength. 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 Continue therapy 2. Add Amaryl 2 mg p.o. at supper......I would like to be able to get him off insulin if possible 3. Continue Effexor XR 150 mg daily and Wellbutrin XL 150 mg daily. He is now agreeable to seeing a psychiatrist at discharge to manage his antidepressants. Will ask nursing to schedule him a follow-up appointment with Dr. Vasquez 4. Transfer to TCU on 06/30/2022 for additional therapy prior to returning home 5. DC Santyl and start Mepilex silver gel pad over the wound. 6. Applied DuoDERM over the right heel and allow it to remain in place for 5 to 7 days to soften the callus preparing it for debridement. May benefit from a ring with cut out around the Callous......like a bunion pad. Charges/Coding Visit Charges Inpatient E&M: 45625 Subs Hosp L2
[2022-06-26 21:30] VITALS: BP 135/75; PULSE 87; RESP 17; TEMP 36.7; O2SAT 96
[2022-06-26] MEDS: Zolpidem Tartrate 5 MG Tablet PO (21:34)
[2022-06-26] MEDS: Atorvastatin Calcium 10 MG Tablet PO (21:34)
[2022-06-26] MEDS: Glimepiride 2 MG Tablet PO (21:36)
[2022-06-26 21:40] LABS: Bedside Glucose 236 mg/dL (74-106)
[2022-06-27] MEDS: Sodium Chloride 0.65% 1 SPRAY SPRAY.BTL 2 SPRAY NASAL ×3 (05:15→21:17)
[2022-06-27] MEDS: Arthritis Pain Compound 60 CLICK TUBE TOPICAL ×3 (05:15→21:17)
[2022-06-27 07:35] LABS: Bedside Glucose 134 mg/dL (74-106)
[2022-06-27 07:57] VITALS: BP 118/69; PULSE 80; RESP 16; TEMP 36.4; O2SAT 98
[2022-06-27] MEDS: Senna/Docusate Sodium 1 Tablet PO ×2 (07:57→21:16)
[2022-06-27] MEDS: Juven (unflavored) Packet 1 PACKET PO ×2 (07:57→17:07)
[2022-06-27] MEDS: Clopidogrel Bisulfate 75 MG Tablet PO (07:58)
[2022-06-27] MEDS: Potassium Chloride Oral Tablet 20 MEQ PO (07:58)
[2022-06-27] MEDS: Lisinopril 5 MG Tablet PO (07:58)
[2022-06-27] MEDS: Carvedilol 6.25 MG Tablet PO ×2 (07:58→17:07)
[2022-06-27] MEDS: APIXABAN 5 MG TABLET PO ×2 (07:58→21:17)
[2022-06-27] MEDS: Aspirin 81 MG TAB.CHEW PO (07:58)
[2022-06-27] MEDS: Venlafaxine HCl 75 MG Tablet 150 MG PO (07:59)
[2022-06-27] MEDS: Glimepiride 4 MG Tablet PO (07:59)
[2022-06-27] MEDS: buPROPion (XL) 150 MG TABLET.XL PO (07:59)
[2022-06-27] MEDS: Folic Acid 1 MG Tablet PO (07:59)
[2022-06-27] MEDS: Ipratropium Bromide 0.06% NASAL SPRAY 2 SPRAY NASAL ×2 (07:59→21:17)
[2022-06-27] MEDS: LINAGLIPTIN 5 MG TABLET PO (07:59)
[2022-06-27] MEDS: Nystatin Powder 15gm Bottle 1 APPLIC TOPICAL (07:59)
[2022-06-27] MEDS: metFORMIN HCl 500 MG Tablet PO ×2 (07:59→17:07)
[2022-06-27] MEDS: Insulin Glargine-YFGN 100 UNIT/ML Pen 16 UNIT SC (08:00)
--- NOTE | 2022-06-27 08:00 | NURSING ---
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
[2022-06-27] MEDS: Menthol/Lanolin/Calamine/Znox 113 GM Tube 1 APPLIC TOPICAL (08:10)
[2022-06-27] MEDS: Glucerna Shake 120 ML LIQUID PO ×3 (08:10→17:07)
--- NOTE | 2022-06-27 09:36 | SP.MBSS_ITS ---
Modified Barium Swallow - Patient Information Study Date: 06/27/22 Study Time: 09:00 Direct Billable Minutes: 60 Total Minutes procedure & reportin Diagnosis: dysphagia Referring Physician: Bibi Christine Reason for Referral: Objective assessment of swallow function under fluoroscopy to determine appropriate diet level, compensatory strategy needs and recommended oropharyngeal strengthening exercises to target the deficits identified Medical History: TRAM RIVERA, is a 72 Male who presents with following: Left second toe diabetic foot ulcer. Treated for infection with Levaquin, Flagyl. X-ray, AND bone biopsy, NEGATIVE for osteomyelitis. Dr. Alvarado recommended non-surgical treatment of left second toe diabetic foot ulcer. Multiple falls at home for 2 weeks, Daily fall last week. Worsening weakness in bilateral lower extremities. struggling to care for him at home, full assist for her. Admit to [facility] with debility, here for 3 hours daily rehabilitation, strengthening, prior to discharge home with . PMHx: Back pain with history of spinal surgery, Chronic renal insufficiency, stage II (mild), Coronary artery disease, Diabetes mellitus, Failure to thrive, Fatigue, Foot drop, left foot, History of right common carotid artery stent placement, Hyperlipidem, Hypertension, Peripheral arterial occlusive disease, Peripheral vascular disease, Psoriasis, Psoriatic arthritis Current Diet Ordered: Regular/Thin Dentition: Natural Teeth Mental Status: WNL Respiratory Status: Oxygenating on Room Air - Penetration-Aspiration Scale Penetration-Aspiration Scale: OBJECTIVE ASSESSMENT OF SWALLOW FUNCTION (QUANTITATIVE ? PER TRIAL): PENETRATION / ASPIRATION SCALE (HUBER): 1 = does not enter airway 2 = enters airway/above vocal folds/ejected 3 = enters airway/above vocal folds/not ejected 4 = enters airway/contacts vocal folds/ejected 5 = enters airway/contacts vocal folds/not ejected 6 = enters airway/below vocal folds/ejected 7 = enters airway/below vocal folds/not ejected despite effort 8 = enters airway/below vocal folds/no effort VIDEOFLOROSCOPIC SCALE SCORE (HUBER): Grade I = aspiration of material that has penetrated into the laryngeal vestibule, intact cough reflex Grade II = aspiration < 10 % of the bolus, intact cough reflex Grade III = aspiration of < 10 % of the bolus, reduced cough reflex or aspiration of > 10 % of the bolus, intact cough reflex Grade IV = aspiration of > 10 % of the bolus, reduced cough reflex - Penetration-Aspiration Scale Score Thin Liquid via teaspoon Result: 1= does not enter airway Thin Liquid via teaspoon Trial 2 Result: 1= does not enter airway Thin Liquid via large single sip from cup Result: 5= enters airways/contacts vocal folds/not ejected Thin Liquid via sequential sips from cup Result: 3= enters airways/above vocal folds/not ejected Thin Liquid via single sip from straw Result: 3= enters airways/above vocal folds/not ejected Pudding Result: 1= does not enter airway Cookie Result: 1= does not enter airway Thin Liquid via large single sip from cup Trial 2 Result: 7= enters airways/below vocal folds/not ejected despite effort Comment: Grade III = aspiration of < 10 % of the bolus, reduced cough reflex Thin Liquid via small single sip from cup Effortful swallow Result: 1= does not enter airway Thin Liquid via small single sip from cup Effortful swallow Trial 2 Result: 1= does not enter airway - Oral Phase Labial Seal: No Labial Escape Tongue Control During Bolus Hold: Cohesive bolus between tongue to palatal seal Bolus Preparation/Mastication: Timely and efficient chewing and mashing Bolus Transport/Lingual Motion: Brisk tongue motion Oral Residue: Trace residue lining oral structures - Pharyngeal Phase Initiation of Pharyngeal Swallow: Bolus head in pyriforms Soft Palate Elevation: No bolus between soft palate and pharyngeal wall Laryngeal Elevation: Partial superior movement thyroid cart/partial apprx aryt- epig petiole Anterior Hyoid Excursion: Partial anterior movement Epiglottic Movement: Complete inversion Laryngeal Vestibule Closure at Height of Swallow: Incomplete; narrow column of air/contrast in laryngeal vestibule Pharyngeal Stripping Wave: Present - diminished Pharyngoesophageal Segment Opening: Complete distension and complete duration; no obstruction of flow Tongue Base Retraction: Trace column of contrast between tongue base & post. pharyngeal wall Pharyngeal Residue: Collection of residue within or on pharyngeal structures - Esophageal Phase Esophageal Clearance: Complete clearance - Diagnosis/Impression Diagnosis: moderate pharyngeal dysphagia Impression: The oral phase is characterized by: -timely mastication and A-P bolus transportation -trace oral residue retention The pharyngeal phase is characterized by: -delayed pharyngeal swallow onset w/ spillage to the pyriforms prior to swallow onset contributing to pre-prandial penetration and aspiration of thin liquid 1x -cough response to aspiration was delayed and weak, not effective to eject aspirate from the trachea -reduced anterior hyoid movement contributing to incomplete arytenoid to epiglottic petiole contact resulting in laryngeal vestibule penetration w/ thin liquids -diminished pharyngeal stripping wave resulting in vallecular residue retention w/ pudding/cookie -a second swallow was partially effective to reduce vallecular residue -an effortful swallow was effective to improve laryngeal vestibule closure and eliminate penetration/aspiration of thin liquids The esophageal phase was unremarkable. - Recommendations Diet: Regular Textures, Thin Liquids Compensatory Strategies: Small Sips - one sip at a time w/ EFFORTFUL SWALLOW, Sitting upright, Remain sitting upright for 30 minutes after PO intake Supervision: Distant Supervision - provide verbal cues to ensure consistent use of compensatory strategies Recommend Repeat Modified Barium Swallow: No Need for Skilled Speech Therapy Services: Yes Comment: Patient requires intensive skilled speech-language intervention targeting?training and implementation of recommended compensatory strategies and training/implementation of recommended oropharyngeal strengthening exercises to facilitate improved anterior hyoid movement, laryngeal vestibule closure and pharyngeal contraction. Consider the following oropharyngeal strengthening exercises in therapy sessions: Charissa, effortful swallow, David maneuver and chin tuck against resistance (CTAR). Education Completed: 1. Described result of evaluation., 2. Pt understands evaluation & agrees with goals and treatment plan. - Status Active ST Patient: Active - Contact Information [facility] Speech Therapy:: Preeti Porter M.A., [facility] [address] [place] [address] [phone] [email or web address]
[2022-06-27] MEDS: oxyCODONE 5 MG Tablet PO ×2 (09:41→21:16)
--- NOTE | 2022-06-27 11:24 | NURSING ---
Outpatient appt made with Dr Brady
[2022-06-27 11:30] LABS: Bedside Glucose 179 mg/dL (74-106)
[2022-06-27] MEDS: Insulin Lispro 100 UNIT/ML INSULN.PEN SC (11:53)
--- NOTE | 2022-06-27 12:24 | PCM.PROGNOTE ---
Subjective Subjective Afebrile VSS Maintaining appropriate oxygen saturation on RA Oral intake is good Discussed with nursing - no problems that need addressed Reviewed the PT/OT/ST notes Medication list reviewed. At bedtime sugar was still high at 236 last night. Fasting blood sugar was 134 today. Amaryl 2 mg was added with supper yesterday in addition to the 4 mg he receives with breakfast. Don denies lightheadedness, vertigo, CP, SOB at rest, SOB with exertion, nausea, vomiting, abd pain, diarrhea, constipation, dysuria, calf pain and ankle swelling. He has an occasional cough when eating/drinking. Still complaining of feeling depressed but, was only started on Wellbutrin on the 7th. HE now tells me that he is willing to go se the psychiatrist if we get him an appt. Objective Data Objective Data Vital Signs: Vital Signs Temp Pulse Resp BP Pulse Ox O2 Del Method O2 Flow Rate 97.6 F L 80 16 118/69 98 Room Air 0 06/27/22 07:57 06/27/22 07:57 06/27/22 07:57 06/27/22 07:57 06/27/22 07:57 06/27/22 07:57 06/20/22 21:48 FiO2 21 06/20/22 21:48 Oxygen Flow Rate (L/min) 0 Oxygen Delivery Method Room Air Weight: 179 lb 9.6 oz Intake & Output: Intake and Output for Last 24 Hours 06/25/22 06/26/22 06/27/22 23:59 23:59 23:59 Intake Total 1340 / 1340 1300 / 1300 240 / 240 Output Total 1650 / 1650 1050 / 1050 1230 / 1230 Balance -310 / -310 250 / 250 -990 / -990 Lab / Micro Data Result Diagrams: 06/21/22 11:12 06/21/22 11:12 Labs: Laboratory Results - last 24 hr 06/26/22 16:55: POC Glucose 186 H 06/26/22 21:19: POC Glucose 236 H 06/27/22 07:13: POC Glucose 134 H 06/27/22 11:10: POC Glucose 179 H Micro: Microbiology 06/20/22 19:30 Urine, Clean Catch Urine Culture - Final Mixed Gram Positive Organisms Physical Exam Const alert and oriented x3 General Appearance: cooperative Resp clear to auscultation bilaterally Cardio regular rate, regular rhythm and no gallops GI normal to inspection, nondistended, normoactive bowel sounds, soft to palpation and non-tender Extremity no calf tenderness General Extremity: Negative for edema Skin Rashes: no rashes Psych Psych Narrative: Affect is still flat but, he is more cooperative and more alert. Exercise tolerance is improving and so is strength. 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 Increase glargine to 22 units every morning and give the insulin at 0700 rather than 10 AM. 2. DC the sliding insulin scale and continue to adjust medications as needed 3. Continue therapy-he is making good progress 4. Make an appointment with Dr. Vasquez post discharge 5. Continue Effexor and Wellbutrin for treatment of depression. Charges/Coding Visit Charges Inpatient E&M: 98415 Subs Hosp L2
[2022-06-27 16:21] LABS: Bedside Glucose 107 mg/dL (74-106)
[2022-06-27] MEDS: Tamsulosin HCl 0.4 MG Capsule PO (17:07)
[2022-06-27] MEDS: Glimepiride 2 MG Tablet PO (17:07)
[2022-06-27 19:33] VITALS: BP 127/70; PULSE 98; RESP 16; TEMP 36.3; O2SAT 95
[2022-06-27 21:00] VITALS: PULSE 98; RESP 16
[2022-06-27] MEDS: Acetaminophen 500 MG Tablet 1000 MG PO (21:16)
[2022-06-27] MEDS: Zolpidem Tartrate 5 MG Tablet PO (21:16)
[2022-06-27] MEDS: Atorvastatin Calcium 10 MG Tablet PO (21:17)
[2022-06-27 21:21] LABS: Bedside Glucose 220 mg/dL (74-106)
[2022-06-28] MEDS: Sodium Chloride 0.65% 1 SPRAY SPRAY.BTL 2 SPRAY NASAL ×3 (05:46→21:54)
[2022-06-28] MEDS: Arthritis Pain Compound 60 CLICK TUBE TOPICAL ×3 (05:46→21:52)
--- NOTE | 2022-06-28 07:41 | NURSING ---
PT HAD HIS C-PAP ON FOR 2 HOUR AND 10 MINUTES
[2022-06-28 07:45] LABS: Bedside Glucose 130 mg/dL (74-106)
[2022-06-28] MEDS: Insulin Glargine-YFGN 100 UNIT/ML Pen 22 UNIT SC (08:00)
[2022-06-28] MEDS: metFORMIN HCl 500 MG Tablet PO ×2 (08:01→17:17)
[2022-06-28] MEDS: Folic Acid 1 MG Tablet PO (08:01)
[2022-06-28] MEDS: Venlafaxine HCl 75 MG Tablet 150 MG PO (08:01)
[2022-06-28] MEDS: APIXABAN 5 MG TABLET PO ×2 (08:01→21:53)
[2022-06-28] MEDS: Aspirin 81 MG TAB.CHEW PO (08:01)
[2022-06-28] MEDS: Glimepiride 4 MG Tablet PO (08:01)
[2022-06-28] MEDS: Lisinopril 5 MG Tablet PO (08:01)
[2022-06-28] MEDS: LINAGLIPTIN 5 MG TABLET PO (08:01)
[2022-06-28] MEDS: Potassium Chloride Oral Tablet 20 MEQ PO (08:01)
[2022-06-28] MEDS: Carvedilol 6.25 MG Tablet PO ×2 (08:01→17:17)
[2022-06-28] MEDS: buPROPion (XL) 150 MG TABLET.XL PO (08:02)
[2022-06-28] MEDS: Ipratropium Bromide 0.06% NASAL SPRAY 2 SPRAY NASAL ×2 (08:02→21:52)
[2022-06-28] MEDS: Glucerna Shake 120 ML LIQUID PO ×3 (08:02→17:18)
[2022-06-28] MEDS: Juven (unflavored) Packet 1 PACKET PO ×2 (08:02→17:17)
[2022-06-28] MEDS: Senna/Docusate Sodium 1 Tablet PO ×2 (08:02→21:55)
[2022-06-28] MEDS: Clopidogrel Bisulfate 75 MG Tablet PO (08:02)
[2022-06-28] MEDS: oxyCODONE 5 MG Tablet PO (08:09)
[2022-06-28] MEDS: Menthol/Lanolin/Calamine/Znox 113 GM Tube 1 APPLIC TOPICAL ×2 (08:13→21:52)
[2022-06-28] MEDS: Nystatin Powder 15gm Bottle 1 APPLIC TOPICAL (08:13)
[2022-06-28 08:28] VITALS: BP 120/60; PULSE 87; RESP 18; TEMP 36.7; O2SAT 98
[2022-06-28 11:26] LABS: Bedside Glucose 162 mg/dL (74-106)
--- NOTE | 2022-06-28 12:08 | CASEMGMT ---
Social Work Spoke with pt to follow up on DC plans. Plan remains DC to TCU 06/30, skilled under Medicare benefit. No other issues noted. Team meeting to be held later today. Plan: DC 06/30 to TCU, skilled MAXIM LopezW
--- NOTE | 2022-06-28 13:31 | CASEMGMT ---
Social Work IDT met with patient for Team meeting. Discussed patient's progress in PT/OT/ST/SN. Reviewed DC plans to transfer to TCU 06/30. Gina Daniel MSW SUPERVISOR [employer]
[2022-06-28 16:35] LABS: Bedside Glucose 132 mg/dL (74-106)
[2022-06-28] MEDS: Glimepiride 2 MG Tablet PO (17:17)
[2022-06-28] MEDS: Tamsulosin HCl 0.4 MG Capsule PO (17:17)
[2022-06-28 19:57] VITALS: BP 128/75; PULSE 74; RESP 18; TEMP 36.3; O2SAT 100
[2022-06-28] MEDS: Atorvastatin Calcium 10 MG Tablet PO (21:53)
[2022-06-28] MEDS: Zolpidem Tartrate 5 MG Tablet PO (21:58)
[2022-06-28 22:55] LABS: Bedside Glucose 157 mg/dL (74-106)
--- NOTE | 2022-06-29 00:54 | NURSING ---
CPAP MASK APPLIED ON PT FOR FIRST TIME THIS SHIFT. PT IN RECLINER.
--- NOTE | 2022-06-29 03:05 | NURSING ---
PT HAS REMOVED HIS CPAP MASK AND DOES NOT WANT TO HAVE IT PLACED BACK ON HIM AT THIS TIME.
[2022-06-29] MEDS: Acetaminophen 500 MG Tablet 1000 MG PO (03:08)
[2022-06-29] MEDS: oxyCODONE 5 MG Tablet PO ×2 (03:09→10:10)
[2022-06-29] MEDS: Arthritis Pain Compound 60 CLICK TUBE TOPICAL ×3 (05:36→21:39)
[2022-06-29] MEDS: Sodium Chloride 0.65% 1 SPRAY SPRAY.BTL 2 SPRAY NASAL ×3 (05:37→21:40)
[2022-06-29 06:55] LABS: Bedside Glucose 126 mg/dL (74-106)
[2022-06-29 07:16] VITALS: BP 114/68; PULSE 80; RESP 14; TEMP 36.1; O2SAT 96
[2022-06-29] MEDS: Insulin Glargine-YFGN 100 UNIT/ML Pen 22 UNIT SC (08:10)
[2022-06-29] MEDS: metFORMIN HCl 500 MG Tablet PO ×2 (08:11→16:38)
[2022-06-29] MEDS: Folic Acid 1 MG Tablet PO (08:11)
[2022-06-29] MEDS: Juven (unflavored) Packet 1 PACKET PO ×2 (08:11→16:37)
[2022-06-29] MEDS: Venlafaxine HCl 75 MG Tablet 150 MG PO (08:11)
[2022-06-29] MEDS: Lisinopril 5 MG Tablet PO (08:11)
[2022-06-29] MEDS: Carvedilol 6.25 MG Tablet PO ×2 (08:11→16:37)
[2022-06-29] MEDS: buPROPion (XL) 150 MG TABLET.XL PO (08:11)
[2022-06-29] MEDS: LINAGLIPTIN 5 MG TABLET PO (08:11)
[2022-06-29] MEDS: Methotrexate 2.5 MG Tablet 17.5 MG PO (08:12)
[2022-06-29] MEDS: Potassium Chloride Oral Tablet 20 MEQ PO (08:12)
[2022-06-29] MEDS: APIXABAN 5 MG TABLET PO ×2 (08:12→21:41)
[2022-06-29] MEDS: Glimepiride 4 MG Tablet PO (08:12)
[2022-06-29] MEDS: Aspirin 81 MG TAB.CHEW PO (08:12)
[2022-06-29] MEDS: Ipratropium Bromide 0.06% NASAL SPRAY 2 SPRAY NASAL ×2 (08:13→21:40)
[2022-06-29] MEDS: Senna/Docusate Sodium 1 Tablet PO ×2 (08:13→21:40)
[2022-06-29] MEDS: Clopidogrel Bisulfate 75 MG Tablet PO (08:13)
[2022-06-29] MEDS: Nystatin Powder 15gm Bottle 1 APPLIC TOPICAL ×2 (08:17→21:42)
[2022-06-29] MEDS: Menthol/Lanolin/Calamine/Znox 113 GM Tube 1 APPLIC TOPICAL ×2 (08:21→21:43)
--- NOTE | 2022-06-29 11:18 | PCM.PROGNOTE ---
Subjective Subjective This is note from 06/28/22 - computer was down and I could not do my note prior to leaving the office last night. Ray was seen on TEAM rounds yesterday. No family was available to participate. Has been afebrile for the duration of his rehab stay. Blood pressure is within goal. Heart rate is within normal limits Maintaining appropriate oxygen saturation on room air Fair oral fluid intake. Eating 75 to 100% of his meals. Blood sugar record was reviewed. All blood sugars for 06/28/2022 were less than 170. Fasting blood sugar today is 126 and the at bedtime blood sugar was 157. PT/OT/ST notes were reviewed. Ray does not feel that his depression is any better but, he is eating 75-100% of his meals, he is much more alert and talkative than he was at admission, he has more facial expression and more modulation to his voice, affect is not as flat as it was when he came in, he is motivated to get stronger and go home and never turns down therapy when they come and get him. He is tolerating the Wellbutrin without any adverse side effects. He denies chest pain, shortness of breath, palpitations, lightheadedness, calf pain, dysuria, nausea/vomiting/abdominal pain and cephalgia. He was watching TV when I entered the room and was very alert. He did not wear the CPAP for very long last night before taking it off. He tells me that the mask irritates him. We do not have results of the sleep study he had 4-5 years ago. He has lost weight since then. I think he should have a new sleep study.......he may do better with a nasal mask only or with the nasal prongs. He has persistent insomnia, depression, fatigue, daytime somnolence despite wearing CPAP in the hospital. He has also lost weight since the old sleep study 4-5 years ago. The MBS showed moderate pharyngeal dysphagia with aspiration of thin liquids...cough response to aspiration was delayed and weak and not effective to effective to eject aspirate from the trachea. An effortful swallow was effective in eliminating penetration/aspiration. I once again reviewed the MRI of the brain he had in November of 2020. At that time he had an acute punctate ischemic infarct in the cortex of the R Middle temporal gyrus. There was also old ischemic infarctions with encephalomalacia and atrophy in the right frontal lobe, right parietal lobe and left posterior parietal lobe. In addition there was an old lacunar cystic infarct in the left periventricular white matter. Objective Data Objective Data Vital Signs: Vital Signs Temp Pulse Resp BP Pulse Ox O2 Del Method O2 Flow Rate 96.9 F L 80 14 114/68 96 Room Air 0 06/29/22 07:16 06/29/22 07:16 06/29/22 07:16 06/29/22 07:16 06/29/22 07:16 06/29/22 07:16 06/20/22 21:48 FiO2 21 06/20/22 21:48 Oxygen Flow Rate (L/min) 0 Oxygen Delivery Method Room Air Weight: 176 lb 5.917 oz Intake & Output: Intake and Output for Last 24 Hours 06/27/22 06/28/22 06/29/22 23:59 23:59 23:59 Intake Total 4562 / 4562 1040 / 1040 480 / 480 Output Total 2480 / 2480 1350 / 1350 750 / 750 Balance 2081 / 2081 -310 / -310 -270 / -270 Lab / Micro Data Result Diagrams: 06/21/22 11:12 06/21/22 11:12 Labs: Laboratory Results - last 24 hr 06/28/22 11:02: POC Glucose 162 H 06/28/22 16:12: POC Glucose 132 H 06/28/22 22:05: POC Glucose 157 H 06/29/22 06:18: POC Glucose 126 H Micro: Microbiology 06/20/22 19:30 Urine, Clean Catch Urine Culture - Final Mixed Gram Positive Organisms Physical Exam Const alert, oriented x3 and no apparent distress General Appearance: cooperative HEENT Mouth: dry mucous membranes Eyes PERRL and EOMs intact bilaterally Neck supple Resp clear to auscultation bilaterally Resp Narrative: No conversational dyspnea Effort and Inspection: Negative for tachypneic Auscultation: diminished lung sounds Cardio no gallops Cardio Narrative: irreg today with controlled VR. GI normal to inspection, nondistended, normoactive bowel sounds, soft to palpation and non-tender Extremity General Extremity: Negative for edema Skin Rashes: no rashes Wound Narrative: L second toe dorsal surface has a diabetic/ischemic ulcer with exposed bone. No periwound erythema, no purulent DC, no odor, base is now 100% granulation tissue. Neuro CN's II-XII intact bilaterally Neuro Narrative: generalized weakness of the legs with atrophy of the muscles. Psych Psych Narrative: More alert during the daylight hours now. More talkative. Good eye contact with me when I speak to him. Pleasant with the therapists and never refuses to work with therapy. Not as surly as he was at admission and he is now willing to see a psychiatrist to manage the antidepressants and willing to follow up with pulmonary medicine and have a new sleep study. He is making a good effort to wear the CPAP and we have been trying different mask to see if we can find one he tolerates. Much more open to change and motivated to get better so he may continue living at his home. 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 (6) Depression: (7) Peripheral arterial occlusive disease: (8) History of multiple strokes: PLAN: Plan 1. Transfer to TCU tomorrow. 2. Continuous pulse ox on CPAP with no O2 bleed in tonight to see if he is desaturating while on CPAP....maybe this is why he can not tolerate the mask. He is MUCH more alert the next day when he wears the CPAP for 3-5 hours and therapy reports improvement with performance in therapy when he wears the CPAP at night. Charges/Coding Visit Charges Inpatient E&M: 56401 Subs Hosp L2
[2022-06-29 11:25] LABS: Bedside Glucose 129 mg/dL (74-106)
[2022-06-29 16:26] LABS: Bedside Glucose 148 mg/dL (74-106)
[2022-06-29] MEDS: Glimepiride 2 MG Tablet PO (16:38)
[2022-06-29] MEDS: Tamsulosin HCl 0.4 MG Capsule PO (16:38)
[2022-06-29] MEDS: Glucerna Shake 120 ML LIQUID PO (16:42)
--- NOTE | 2022-06-29 18:44 | DS.PCM_ITS ---
Providers Date of Admission: 06/15/22 Date of Discharge: 06/30/22 Primary Care Physician: Dr. Mckayla Silva DO Reason For Visit: DEBILITY with frequent falls. 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 (6) Depression: Status: Chronic Code(s): F32.A - Depression, unspecified (7) Peripheral arterial occlusive disease: Status: Acute Code(s): I77.9 - Disorder of arteries and arterioles, unspecified (8) History of multiple strokes: Status: Acute Code(s): Z86.73 - Personal history of transient ischemic attack (TIA), and cerebral infarction without residual deficits Medications at Discharge Home Medications Arthritis Pain Compound 2 click topical TID Pain 06/30/22 apixaban 5 mg tablet (Eliquis) 5 mg PO BID Blood Thinner 06/30/22 arginine 7 gram-glutam 7 gram-CaHMB 1.5 [id number]-jb-min oral pwd pkt (Singh (with collagen)) 1 packet PO BIDCM Supplement 06/30/22 aspirin 81 mg chewable tablet 81 mg PO BREAKFAST Heart 06/30/22 atorvastatin 10 mg tablet 10 mg PO QHS Cholesterol 06/30/22 bisacodyl 10 mg rectal suppository 10 mg IN .PRN X 1 PRN Constipation #0 ea 06/30/22 bupropion HCl 150 mg 24 hr tablet, extended release 150 mg PO DAILY Mood 06/30/22 carvedilol 6.25 mg tablet 6.25 mg PO BIDCM BP 06/30/22 clopidogrel 75 mg tablet 75 mg PO DAILY Blood Thinner 06/30/22 folic acid 1 mg tablet 1 mg PO BREAKFAST Supplement 06/30/22 glimepiride 2 mg tablet 2 mg PO SUPPER Diabetic 06/30/22 glimepiride 4 mg tablet 4 mg PO BREAKFAST Diabetic 06/30/22 insulin glargine-yfgn 100 unit/mL (3 mL) subcutaneous pen 22 unit subcut 0700 Diabetes 06/30/22 ipratropium bromide 42 mcg (0.06 %) nasal spray 2 spray NASAL BID Check with primary doctor 06/30/22 lidocaine HCl 4 % (40 mg/mL) mucosal solution 50 ml topical X1 PRN wound debridement #0 mL 06/30/22 linagliptin 5 mg tablet (Tradjenta) 5 mg PO DAILY Diabetes 06/30/22 lisinopril 5 mg tablet 5 mg PO DAILY BP 06/30/22 magnesium hydroxide 400 mg/5 mL oral suspension 30 ml PO .PRN X 1 PRN Constipation #0 mL 06/30/22 menthol 0.44 %-zinc oxide 20.6 % topical ointment (Calmoseptine) 1 applic topical BID Skin 06/30/22 metformin 500 mg tablet 500 mg PO BIDCM Diabetes 06/30/22 methotrexate sodium 2.5 mg tablet 17.5 mg PO FR Psoriasis 06/30/22 nutrition tx glu intol,lac-free,soy-fiber 0.06 gram-1.2 kcal/mL liquid (Glucerna 1.2 Mustapha) 120 ml PO TIDCM Supplement 06/30/22 nystatin 100,000 unit/gram topical powder (Nyamyc) 1 applic topical BID Skin 06/30/22 oxycodone 5 mg tablet 5 mg PO Q4H PRN PRN Pain Score 6-10 #0 tabs 06/30/22 potassium chloride 20 mEq tablet,extended release(part/cryst) (Klor-Con M) 20 meq PO DAILYCM Supplement 06/30/22 sennosides 8.6 mg-docusate sodium 50 mg tablet (Stool Softener-Stimulant Laxative) 1 tab PO BID Constipation 06/30/22 sodium chloride 0.65 % nasal spray aerosol (Deep Sea Nasal) 2 spray NASAL TID Congestion 06/30/22 tamsulosin 0.4 mg capsule 0.4 mg PO DAILY@1730 Retention 06/30/22 venlafaxine 75 mg tablet 150 mg PO DAILY Mood 06/30/22 zolpidem 5 mg tablet 5 mg PO QHS Sleep 06/30/22 Hospital Course Operations None Procedures - (Modified barium swallow) Summary of Care Provided Minutes Spent on Discharge: 40 Hospital Course: Gibson Rodirguez is a 72-year-old male with a past medical history of back pain/spinal surgery, chronic kidney disease stage II?3A, coronary artery disease, diabetes mellitus type 2, history of right common carotid stenosis with carotid stent placement, hyperlipidemia, hypertension, PVD, psoriasis, psoriatic arthritis, multiple strokes, JENNIFER, noncompliance with CPAP senior living depression despite antidepressants and failure to thrive.? He was having multiple falls at home and his was no longer to care for him. He has recently been seen [facility] by Dr. Silva for a non-healing diabetic ulcer on the dorsal surface of the Left second toe with exposed bone. The bone was biopsied by Dr. Alvarado and there is no osteomyelitis present. Dr. Alvarado recommended non- surgical tx. He has severe PVD. He was admitted to the acute rehab unit at [facility] on 06/15/2022 for 3 hours of therapy daily to restore function/independence at or near his prior level so that he may return home. Ray's told me that his last sleep study was several years ago and he has never been able to tolerate the mask so he does not use the CPAP. Ray told me that he has been depressed since he was in his 30's and none of the medications he has tried seem to work for him. He did see a psychotherapist once and did not feel this was of benefit to him. When he first arrived on rehab he was not talking very much and he was c/o not sleeping well at night. He also was not eating well and did not have much of a appetite. His told me that he sleeps during the day. She also mentioned that he was irritable at home and had no motivation to get better/stronger. She could no longer get him up when he falls and needs help to do so. He would get somewhat irritated with me when we discussed trying different CPAP masks to see if we could find one he was able to tolerate and following up with a psychiatrist for tx of depression. I thought the Effexor 75 mg at night could be contributing to insomnia and this dose was discontinued. He remained on 150 mg of Effexor XR in the AM. We added Wellbutrin XL 150 mg in the AM to help with depression and he had no adverse reactions to the Wellbutrin. I had a meeting with Ray, his and his dtr. I told him that depression is common with untreated sleep apnea and we were trying to help him get better so that he could continue to live at home. I also explained that since he had not improved with antidepressants he should consult a psychiatrist to assist with medication choices and provide some psychotherapy so that he could learn to accept that he has chronic illnesses and he will have to make peace with this and not dwell on the things he is unable to do at this stage in his life. Following the meeting he became more cooperative and agreed to try different CPAP masks. The RT's and sleep lab technicians assisted with the different mask choices. Prior to DC he was able to wear the mask about 5 hours a night and this increased his level of alertness and ability to do therapy. I think that he needs another sleep study. He continues to have insomnia, depression, falls and he can not tolerate the mask. He has also lost weight since the last sleep study and he may not require the same pressure. Neither Ray or his was able to recall who ordered the study and we were unable to obtain the results of the study. Ray's attitude significantly changed while he was in rehab. He was very motivated to do therapy and wants to go home at [place]. He was more talkative and his appetite improved.....he was eating 75-100 % of his meals at the time of DC from rehab. He was polite when talking with staff and he even agreed to following up with psychiatry. He was much more alert and was not napping throughout the day. The therapist no longer needed to give voice cues frequently regarding walker placement, hand placement and how to perform the different exercises. He did well with therapy and his strength improved. He was able to do 6 sit to stands in 30 seconds at minimal assistance prior to discharge. He completed the tug test in 25.26 seconds with a wheeled walker. He was able to ascend/descend three 4 inch steps, to 7 inch steps with 2 gaffney drails at minimal assistance. He had ambulated up to 60 feet with a wheeled walker at contact-guard assist which was up from 5 feet at admission. He cannot stand for more than 2 minutes due to increased pain in his lower extremities with static standing. He has had multiple back surgeries in the past and has atrophy of the muscles of both lower extremities. He was also limited by severe pain in the right knee. This was initially treated with arthritis compounded cream and led to some improvement. The pain persisted and the right knee was injected with 40 mg of Kenalog and 2% lidocaine with good improvement. He was supervision/set up for eating and grooming at the time of discharge. He required maximum assistance with upper body dressing but only minimal assistance with lower body dressing. He needed moderate assistance with bathing. He needed minimal assistance with toilet transfer but maximum assistance with toileting to maintain his balance while pulling his pants up. Speech also work with Isaac while he was in rehab and a modified barium swallow was performed which revealed moderate pharyngeal dysphagia. They worked with him on oral pharyngeal strengthening exercises. Ray was not yet ready to go home and be safe with no falls at the time of DC from rehab and he was transferred to TCU for additional therapy prior to going home. His works and he needs to be able to be safe with ambulating and toileting prior to DC home. BS's were well controlled at the time of DC and the BP was within goal. He will follow up with Dr. Silva for primary care and wound care at the time of DC from TCU. He is going to follow up with Dr. Vasquez for psychiatric evaluation. He will need to continued PT/OT at home so that he can maintain his strength and stability so that he can continue to live at home. He will follow up with pulmonary medicine as well for tx of JENNIFER. Physical Exam Const alert, oriented x3 and no apparent distress General Appearance: cooperative Eyes PERRL and EOMs intact bilaterally Resp normal respiratory effort and clear to auscultation bilaterally Resp Narrative: No conversational dyspnea Effort and Inspection: Negative for tachypneic Auscultation: diminished lung sounds Cardio regular rate, no murmurs, no rub and no gallops Cardio Narrative: irreg today with controlled VR. GI normal to inspection, nondistended, normoactive bowel sounds, soft to palpation and non-tender Extremity no calf tenderness General Extremity: Negative for edema Skin Rashes: no rashes Wound Narrative: L second toe dorsal surface has a diabetic/ischemic ulcer with exposed bone. No periwound erythema, no purulent DC, no odor, base is now 100% granulation tissue. Neuro CN's II-XII intact bilaterally Neuro Narrative: generalized weakness of the legs with atrophy of the muscles. Psych Psych Narrative: More alert during the daylight hours now. More talkative. Good eye contact with me when I speak to him. Pleasant with the therapists and never refuses to work with therapy. Not as surly as he was at admission and he is now willing to see a psychiatrist to manage the antidepressants and willing to follow up with pulmonary medicine and have a new sleep study. He is making a good effort to wear the CPAP and we have been trying different mask to see if we can find one he tolerates. Much more open to change and motivated to get better so he may continue living at his home. Appearance: appropriate Weight / BMI Weight Weight: 176 lb 5.917 oz ABG / Lab / Microbiology Data Result Diagrams: 06/21/22 11:12 06/21/22 11:12 Laboratory: Laboratory Results - last 24 hr 06/28/22 22:05: POC Glucose 157 H 06/29/22 06:18: POC Glucose 126 H 06/29/22 11:05: POC Glucose 129 H 06/29/22 16:05: POC Glucose 148 H Microbiology: Microbiology 06/20/22 19:30 Urine, Clean Catch Urine Culture - Final Mixed Gram Positive Organisms Meaningful Use Info Meaningful Use Diagnoses (Choose all that apply): None applicable Discharge Plan Admission Admit Date/Time: 06/15/22 13:58 Primary Reason for Your Visit: Generalized weakness with frequent falls. Attending Provider: Bibi Christine Primary Care Provider: Mckayla Silva Discharge Orders/Prescriptions Prescriptions: New magnesium hydroxide 400 mg/5 mL Suspension 30 ml PO .PRN X 1 PRN (Reason: Constipation) Qty: 0 0RF lidocaine HCl 4 % (40 mg/mL) Solution 50 ml topical X1 PRN (Reason: wound debridement ) Qty: 0 0RF Protocol: *Topical Application Instructions APPLICATION INSTRUCTIONS: for wound debridement for left second toe bisacodyl 10 mg Suppository 10 mg IN .PRN X 1 PRN (Reason: Constipation) Qty: 0 0RF oxycodone 5 mg Tablet 5 mg PO Q4H PRN PRN (Reason: Pain Score 6-10) Qty: 0 0RF Discontinued glyburide 5 mg Tablet 5 mg PO BID clopidogrel 75 mg Tablet 75 mg PO DAILY aspirin 81 mg tablet,chewable 1 tab PO DAILY Label Comments: CHEW AND SWALLOW 1 TABLET BY MOUTH ONCE DAILY methotrexate sodium 2.5 mg tablet 17.5 mg PO FR Label Comments: TAKE 7 TABLETS BY MOUTH ONCE A WEEK folic acid 1 mg Tablet 1 mg PO DAILY carvedilol 6.25 mg tablet 6.25 mg PO BID Rx Instructions: must administer with a meal/food potassium chloride 10 mEq tablet extended release 20 meq PO DAILY lisinopril 5 mg tablet 5 mg PO DAILY apixaban 5 MG tablet 5 mg PO BID tramadol 50 mg Tablet 50 mg PO Q6H PRN PRN (Reason: Pain Score 4-10) 3 Days Qty: 12 0RF acetaminophen 500 mg Tablet 1,000 mg PO Q6H PRN PRN (Reason: Pain Score 1-3) Qty: 0 0RF carvedilol 6.25 mg Tablet 6.25 mg PO BIDCM 30 Days Qty: 60 0RF venlafaxine 75 mg Tablet 75 mg PO QHS oxycodone 5 mg Tablet 5 - 10 mg PO Q6H PRN (Reason: Pain) venlafaxine 75 mg capsule,extended release 24hr 150 mg PO DAILY No Action Arthritis Pain Compound 2 click topical TID metformin 500 mg tablet 500 mg PO BIDCM carvedilol 6.25 mg tablet 6.25 mg PO BIDCM venlafaxine 75 mg tablet 150 mg PO DAILY atorvastatin 10 mg tablet 10 mg PO QHS sennosides-docusate sodium [Stool Softener-Stimulant Laxat] 8.6-50 mg tablet 1 tab PO BID clopidogrel 75 mg tablet 75 mg PO DAILY glimepiride 2 mg tablet 2 mg PO SUPPER potassium chloride [Klor-Con M20] 20 mEq tablet,ER particles/crystals 20 meq PO DAILYCM methotrexate sodium 2.5 mg tablet 17.5 mg PO FR tamsulosin 0.4 mg capsule 0.4 mg PO DAILY@1730 glimepiride 4 mg tablet 4 mg PO BREAKFAST aspirin 81 mg tablet,chewable 81 mg PO BREAKFAST folic acid 1 mg tablet 1 mg PO BREAKFAST lisinopril 5 mg tablet 5 mg PO DAILY zolpidem 5 mg tablet 5 mg PO QHS nystatin [Nyamyc] 100,000 unit/gram powder 1 applic topical BID Protocol: *Topical Application Instructions APPLICATION INSTRUCTIONS: apply to affected area ipratropium bromide 42 mcg (0.06 %) spray,non-aerosol 2 spray NASAL BID Deep Sea Nasal 0.65 % aerosol,spray 2 spray NASAL TID bupropion HCl 150 mg tablet extended release 24 hr 150 mg PO DAILY Glucerna 1.2 Mustapha 0.06-1.2 gram-kcal/mL liquid 120 ml PO TIDCM menthol-zinc oxide [Calmoseptine] 0.44-20.6 % ointment 1 applic topical BID Protocol: *Topical Application Instructions APPLICATION INSTRUCTIONS: BILAT BUTTOCKS Tradjenta 5 mg tablet 5 mg PO DAILY Eliquis 5 mg tablet 5 mg PO BID Singh (with collagen) 7-7-1.5 gram powder in packet 1 packet PO BIDCM insulin glargine-yfgn 100 unit/mL (3 mL) insulin pen 22 unit subcut 0700 Referrals / Follow Up: Mckayla Silva DO [Primary Care Provider] - Hector Vasquez DO [Med Staff - Speech Language Specialist] - 08/07/22 1:00 pm Disposition Disposition (needs filled in before D/C Order can be placed): [facility] Charges/Coding Visit Charges Inpatient E&M: 00515 Disch Hosp >30min
--- NOTE | 2022-06-29 18:46 | TREXTCAR_ITS ---
Diet Diet Order/Speech Therapy: 06/19/22 19:01 Diet: Consistent Carb - Calorie Controlled Food consistency:: Regular Liquid Consistency:: Regular/Thin Is pt able to select menu?: Yes How many daily calories?: 1800 calorie Routine Orders/Code Status Enema Type: Fleetz Enema Frequency: Daily PRN Suppository Type: Dulcolax 10mg Suppository Frequency: Daily PRN O2 Liters per Minute: 1-2 O2 Frequency: PRN Keep PO Greater than or Equal to (%): 90 Code Status: Full Code Wound(s) Left Foot 2nd toe: Wound Type: Neuropathic/Diabetic Foot Ulcer (dorsal surface of the L second toe. Also with a hard callous on the plantar surface of the R foot over a jasmyne prominence on the calcanues) Dressing Change: AntiMicrobial (Aquacel AG, etc) Left Buttocks: Wound Type: Pressure Injury bilat pat: Wound Type: Abrasion (healing......all are scabbed with no erythema and no purulent DC) Dressing Change: hydrogel Left Heel: Wound Type: Pressure Injury RT KNEE: Wound Type: Abrasion Rt Heel: Wound Type: Pressure Injury Therapies Weight Bearing: Weight bearing as tolerated Extremity Affected:: Bilateral Lower Physical Therapy: Eval and Treat Occupational Therapy: Eval and Treat Speech Therapy: Eval and Treat Problem/Diagnosis (1) Debility: Status: Acute Code(s): R53.81 - Other malaise Comment: Due to severe LE weakness causing frequent falls. Has had multiple strokes in the past and has severe diabetic neuropathy in his feet and severe PVD of BL legs. (2) Generalized muscle weakness: Status: Acute Code(s): M62.81 - Muscle weakness (generalized) (3) JENNIFER (obstructive sleep apnea): Status: Chronic Code(s): G47.33 - Obstructive sleep apnea (adult) (pediatric) Comment: Non-compliant with CPAP. Last sleep study was at least 4-5 years ago and he can not wear the face mask because it increases anxiety and he feels as though he is suffocating. He has lost weight since his old sleep study and I think he would benefit from a new sleep study and follow up with pulmonary. 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 (6) Depression: Status: Chronic Code(s): F32.A - Depression, unspecified Comment: Tells me that he has been depressed since he was in his 30's (7) Peripheral arterial occlusive disease: Status: Acute Code(s): I77.9 - Disorder of arteries and arterioles, unspecified (8) History of multiple strokes: Status: Acute Code(s): Z86.73 - Personal history of transient ischemic attack (TIA), and cerebral infarction without residual deficits (9) Hypertension: Status: Chronic Code(s): I10 - Essential (primary) hypertension (10) Coronary artery disease: Status: Acute Code(s): I25.10 - Atherosclerotic heart disease of [place] coronary artery without angina pectoris (11) Depression: Status: Chronic Code(s): F32.A - Depression, unspecified (12) Psoriatic arthritis: Status: Acute Code(s): L40.50 - Arthropathic psoriasis, unspecified Comment: On methotrexate (13) Muscle atrophy of lower extremity: Status: Acute Code(s): M62.58 - Muscle wasting and atrophy, not elsewhere classified, other site (14) Insomnia: Status: Acute Code(s): G47.00 - Insomnia, unspecified (15) Diabetic ulcer of toe associated with diabetes mellitus due to underlying condition, with necrosis of bone: Status: Acute Code(s): E08.621 - Diabetes mellitus due to underlying condition with foot ulcer; L97.504 - Non-pressure chronic ulcer of other part of unspecified foot with necrosis of bone (16) Type 2 diabetes mellitus with diabetic polyneuropathy: Status: Chronic Code(s): E11.42 - Type 2 diabetes mellitus with diabetic polyneuropathy Comment: Uncontrolled, hemoglobin A1c 9.1 in June 2022 Plan 1. Discharge to the transitional care unit for additional therapy prior to planned return home. 2. Blood sugars are now controlled and the blood pressure is within goal. 3. Will need a new sleep study post discharge. The sleep lab and respiratory therapist will continue to work with him to find a mask or nasal pillows that he can tolerate. He was able to wear CPAP last night for 5 hours. 4. He will follow-up with Dr. Vasquez for psychiatric evaluation and management of antidepressants. 5. Continue silver hydrogel to the ulceration with exposed bone on the left second toe dorsal surface. 6. We will follow-up with Dr. Silva in the wound care center post discharge from TCU. Allergies/Procedures Done in Hospital Allergies morphine Allergy (Verified 05/18/22 11:46) PT UNSURE OF REACTION i was told after surgery that i shouldn't have it rivaroxaban [From Xarelto] Allergy (Verified 05/18/22 11:46) Other Procedures: - (Modified barium swallow) Type of Care/Length of Stay Estimated LOS: Convalescent Care Less Than 30 days Type of Care Needed: Skilled Rehab Potential: Good Prognosis: Good Additional Orders/Day of Discharge H&P will serve as current which was dated: 06/15/22 Day of Discharge: 06/30/22 Dietary and Speech Recommendations Dietitian Recommendations/Changes: continue 1800 calorie controlled, consistent CHO diet w/ Singh BID and Glucerna 120mL TID for additional protein Follow Up Care Please follow up with your Primary Care Physician in: Dr. Mckayla Silva post DC from TCU Please Follow Up With: Hector Vasquez DO Please Follow Up With: pulmonary medicine When: needs a new sleep study Discharge Plan Admission Admit Date/Time: 06/15/22 13:58 Primary Reason for Your Visit: Generalized weakness with frequent falls. Attending Provider: Bibi Christine Primary Care Provider: Mckayla Silva Discharge Orders/Prescriptions Prescriptions: New Arthritis Pain Compound 2 click topical TID Qty: 0 0RF metformin 500 mg Tablet 500 mg PO BIDCM Qty: 0 0RF carvedilol 6.25 mg Tablet 6.25 mg PO BIDCM Qty: 0 0RF atorvastatin 10 mg Tablet 10 mg PO QHS Qty: 0 0RF clopidogrel 75 mg Tablet 75 mg PO DAILY Qty: 0 0RF glimepiride 2 mg Tablet 2 mg PO SUPPER Qty: 0 0RF magnesium hydroxide 400 mg/5 mL Suspension 30 ml PO .PRN X 1 PRN (Reason: Constipation) Qty: 0 0RF methotrexate sodium 2.5 mg Tablet 17.5 mg PO Q7D Qty: 0 0RF lidocaine HCl 4 % (40 mg/mL) Solution 50 ml topical X1 PRN (Reason: wound debridement ) Qty: 0 0RF Protocol: *Topical Application Instructions APPLICATION INSTRUCTIONS: for wound debridement for left second toe bisacodyl 10 mg Suppository 10 mg [place] .PRN X 1 PRN (Reason: Constipation) Qty: 0 0RF glimepiride 4 mg Tablet 4 mg PO BREAKFAST Qty: 0 0RF aspirin 81 mg Tablet,Chewable 81 mg PO BREAKFAST Qty: 0 0RF folic acid 1 mg Tablet 1 mg PO BREAKFAST Qty: 0 0RF lisinopril 5 mg Tablet 5 mg PO DAILY Qty: 0 0RF nystatin [Nyamyc] 100,000 unit/gram Powder 1 applic topical BID Qty: 0 0RF Protocol: *Topical Application Instructions APPLICATION INSTRUCTIONS: apply to affected area ipratropium bromide 42 mcg (0.06 %) [place],Non-Aerosol 2 spray NASAL BID Qty: 0 0RF bupropion HCl 150 mg Tablet Extended Release 24 Hr 150 mg PO DAILY Qty: 0 0RF Glucerna 1.2 Mustapha 0.06-1.2 gram-kcal/mL Liquid 120 ml PO TIDCM Qty: 0 0RF menthol-zinc oxide [Calmoseptine] 0.44-20.6 % Ointment 1 applic topical BID Qty: 0 0RF Protocol: *Topical Application Instructions APPLICATION INSTRUCTIONS: BILAT BUTTOCKS Tradjenta 5 mg Tablet 5 mg PO DAILY Qty: 0 0RF Eliquis 5 mg Tablet 5 mg PO BID Qty: 0 0RF Singh (with collagen) 7-7-1.5 gram Powder In Packet 1 packet PO BIDCM Qty: 0 0RF insulin glargine-yfgn 100 unit/mL (3 mL) Insulin Pen 22 unit subcut 0700 Qty: 0 0RF venlafaxine 75 mg Tablet 150 mg PO DAILY Qty: 0 0RF sennosides-docusate sodium [Stool Softener-Stimulant Laxat] 8.6-50 mg Tablet 1 tab PO BID Qty: 0 0RF potassium chloride [Klor-Con M20] 20 mEq Tablet,Er Particles/Crystals 20 meq PO DAILYCM Qty: 0 0RF tamsulosin 0.4 mg Capsule 0.4 mg PO DAILY@1730 Qty: 0 0RF zolpidem 5 mg Tablet 5 mg PO QHS Qty: 0 0RF oxycodone 5 mg Tablet 5 mg PO Q4H PRN PRN (Reason: Pain Score 6-10) Qty: 0 0RF Deep Sea Nasal 0.65 % Aerosol,[place] 2 spray NASAL TID Qty: 0 0RF Discontinued glyburide 5 mg Tablet 5 mg PO BID clopidogrel 75 mg Tablet 75 mg PO DAILY aspirin 81 mg tablet,chewable 1 tab PO DAILY Label Comments: CHEW AND SWALLOW 1 TABLET BY MOUTH ONCE DAILY methotrexate sodium 2.5 mg tablet 17.5 mg PO FR Label Comments: TAKE 7 TABLETS BY MOUTH ONCE A WEEK folic acid 1 mg Tablet 1 mg PO DAILY carvedilol 6.25 mg tablet 6.25 mg PO BID Rx Instructions: must administer with a meal/food potassium chloride 10 mEq tablet extended release 20 meq PO DAILY lisinopril 5 mg tablet 5 mg PO DAILY apixaban 5 MG tablet 5 mg PO BID tramadol 50 mg Tablet 50 mg PO Q6H PRN PRN (Reason: Pain Score 4-10) 3 Days Qty: 12 0RF acetaminophen 500 mg Tablet 1,000 mg PO Q6H PRN PRN (Reason: Pain Score 1-3) Qty: 0 0RF carvedilol 6.25 mg Tablet 6.25 mg PO BIDCM 30 Days Qty: 60 0RF venlafaxine 75 mg Tablet 75 mg PO QHS oxycodone 5 mg Tablet 5 - 10 mg PO Q6H PRN (Reason: Pain) venlafaxine 75 mg capsule,extended release 24hr 150 mg PO DAILY Referrals / Follow Up: Mckayla Silva DO [Primary Care Provider] - Hector Vasquez DO [Med Staff - Director Public Service] - 08/07/22 1:00 pm Disposition Disposition (needs filled in before D/C Order can be placed): [facility] ([facility]) Type 2 diabetes mellitus with diabetic polyneuropathy Qualifiers: Diabetes mellitus termite exterminator insulin use: without termite exterminator use
[2022-06-29 19:25] VITALS: BP 115/61; PULSE 89; RESP 16; TEMP 36.9; O2SAT 96
[2022-06-29 21:17] VITALS: PULSE 86; O2SAT 98
--- NOTE | 2022-06-29 21:22 | CPS ---
Pt. set-up on overnight trend. Pt. said he'd like to go on his CPAP around 11 or 12. Will go check on pt. at 11 to see if he's ready to put on his CPAP mask.
[2022-06-29 21:31] LABS: Bedside Glucose 232 mg/dL (74-106)
[2022-06-29] MEDS: Atorvastatin Calcium 10 MG Tablet PO (21:39)
[2022-06-29] MEDS: Zolpidem Tartrate 5 MG Tablet PO (21:41)
--- NOTE | 2022-06-29 23:20 | CPS ---
[2318] Pt.'s new nasal mask placed on pt. with his CPAP at this time. Pt. claims it's the most comfortable mask he's had with his CPAP. I explained the importance of him wearing his CPAP through out the night, and the pt. stated that he will keep it on through out the night.
[2022-06-30] MEDS: Acetaminophen 500 MG Tablet 1000 MG PO (04:48)
[2022-06-30] MEDS: Arthritis Pain Compound 60 CLICK TUBE TOPICAL ×2 (04:49→14:49)
[2022-06-30] MEDS: Sodium Chloride 0.65% 1 SPRAY SPRAY.BTL 2 SPRAY NASAL ×2 (04:49→14:48)
[2022-06-30] MEDS: oxyCODONE 5 MG Tablet PO (05:18)
--- NOTE | 2022-06-30 05:23 | NURSING ---
Pt found this am without his nasal cpap mask on, when asked he stated it has only been off for 15 minutes. Cpap worn for 4 hours, 50 minutes.
[2022-06-30 06:50] LABS: Bedside Glucose 100 mg/dL (74-106)
[2022-06-30 08:03] VITALS: BP 115/69; PULSE 86; RESP 18; TEMP 36.4; O2SAT 96
[2022-06-30] MEDS: Insulin Glargine-YFGN 100 UNIT/ML Pen 22 UNIT SC (08:03)
[2022-06-30] MEDS: Juven (unflavored) Packet 1 PACKET PO (08:04)
[2022-06-30] MEDS: Venlafaxine HCl 75 MG Tablet 150 MG PO (08:05)
[2022-06-30] MEDS: Glimepiride 4 MG Tablet PO (08:05)
[2022-06-30] MEDS: Clopidogrel Bisulfate 75 MG Tablet PO (08:05)
[2022-06-30] MEDS: Potassium Chloride Oral Tablet 20 MEQ PO (08:06)
[2022-06-30] MEDS: Aspirin 81 MG TAB.CHEW PO (08:06)
[2022-06-30] MEDS: Folic Acid 1 MG Tablet PO (08:06)
[2022-06-30] MEDS: Carvedilol 6.25 MG Tablet PO (08:09)
[2022-06-30] MEDS: Ipratropium Bromide 0.06% NASAL SPRAY 2 SPRAY NASAL (08:09)
[2022-06-30] MEDS: metFORMIN HCl 500 MG Tablet PO (08:09)
[2022-06-30] MEDS: Menthol/Lanolin/Calamine/Znox 113 GM Tube 1 APPLIC TOPICAL (08:10)
[2022-06-30] MEDS: Senna/Docusate Sodium 1 Tablet PO (10:20)
[2022-06-30] MEDS: APIXABAN 5 MG TABLET PO (10:20)
[2022-06-30] MEDS: LINAGLIPTIN 5 MG TABLET PO (10:21)
[2022-06-30] MEDS: buPROPion (XL) 150 MG TABLET.XL PO (10:21)
[2022-06-30] MEDS: Lisinopril 5 MG Tablet PO (10:22)
[2022-06-30] MEDS: Nystatin Powder 15gm Bottle 1 APPLIC TOPICAL (10:24)
[2022-06-30 12:30] LABS: Bedside Glucose 148 mg/dL (74-106)
--- NOTE | 2022-06-30 16:29 | NURSING ---
Discharge to TCU and report provided. aware of room 18 admission.
== END 2022-06-30 16:31 | disposition skilled nursing facility (03) | DRG 638 ==
PROVIDERS: Family Medicine Geriatric Medicine; Admitting Provider Internal Medicine; PCP Family Medicine; Visit Provider Internal Medicine
DX: E11.621 Type 2 diabetes mellitus with foot ulcer (principal); I69.354 Hemiplegia and hemiparesis following cerebral infarction affecting left non-dominant side; I51.3 Intracardiac thrombosis, not elsewhere classified; E11.22 Type 2 diabetes mellitus with diabetic chronic kidney disease; E11.42 Type 2 diabetes mellitus with diabetic polyneuropathy; E11.51 Type 2 diabetes mellitus with diabetic peripheral angiopathy without gangrene; L97.524 Non-pressure chronic ulcer of other part of left foot with necrosis of bone; L40.50 Arthropathic psoriasis, unspecified; M06.9 Rheumatoid arthritis, unspecified; E78.5 Hyperlipidemia, unspecified; I25.10 Atherosclerotic heart disease of native coronary artery without angina pectoris; I12.9 Hypertensive chronic kidney disease with stage 1 through stage 4 chronic kidney disease, or unspecified chronic kidney disease; N18.2 Chronic kidney disease, stage 2 (mild); M17.11 Unilateral primary osteoarthritis, right knee; E87.6 Hypokalemia; G47.33 Obstructive sleep apnea (adult) (pediatric); F41.9 Anxiety disorder, unspecified; M21.372 Foot drop, left foot; Z79.84 Long term (current) use of oral hypoglycemic drugs; Z79.02 Long term (current) use of antithrombotics/antiplatelets; Z79.82 Long term (current) use of aspirin; F32.A Depression, unspecified; Z91.81 History of falling; Z79.01 Long term (current) use of anticoagulants; Z95.1 Presence of aortocoronary bypass graft
CPT/HCPCS: 11042; 15275; 36415; 73562; 74230; 80048; 80053; 81001; 82947; 82962; 83036; 83735; 84100; 85025; 87086; 87088; 87426; 92507; 92523; 92526; 92611; 94640; 94762; 97110; 97116; 97129; 97130; 97163; 97166; 97530; 97535; 97802; 97803; Q4186; J8610

== ENCOUNTER 2022-06-30 16:20 | Inpatient (IN) | payer MEDICARE, OTHER, SELFPAY ==
[2022-06-30 16:40] VITALS: BP 121/70; PULSE 89; RESP 14; TEMP 36.2; O2SAT 96
[2022-06-30 16:43] VITALS: BMI 26.0
--- NOTE | 2022-06-30 17:21 | HP.PCM_ITS ---
HPI - General General Date of Admission: 06/30/22 Date of Service: 07/02/22 Chief Complaint: Here for rehab. HPI Narrative TRAM RIVERA, is a 72 Male who presents with followin06/15/2022 Admit to left second toe diabetic foot ulcer. 06/19/2022 Decrease Venlafaxine, Add Clonazepam at bedtime. Add Tradjenta 5mg for improved sugar control. 06/21/2022 Not compliant with CPAP. 06/22/2022 Stop Micronase, Start Glimepiride, Lantus 8 units, Metformin 500mg twice daily. Start Wellbutrin XL 150mg daily. 06/23/2022 Left second toe debrided. Right knee steroid injection. 06/24/2022 Increase Glargine to 16 units daily. 06/26/2022 Add Glimepiride 2mg at supper. Effexor 150mg, Wellbutrin 150mg, Dr. Vasquez for depression. 06/27/2022 Increase Glargine to 22 units daily, stop sliding scale insulin. 06/29/2022 Modified barium swallow showed moderate dysphagia, aspiration thin liquids. 06/30/2022 Admit to TCU with debility, here for rehabilitation, strengthening, prior to discharge home with . [facility] Medical History Back pain with history of spinal surgery Chronic renal insufficiency, stage II (mild) Coronary artery disease Depression Diabetic ulcer of toe associated with diabetes mellitus due to underlying c ondition, with necrosis of bone Erectile dysfunction Failure to thrive Fatigue Foot drop, left foot History of multiple strokes History of right common carotid artery stent placement Hyperlipidemia Hypertension Insomnia Peripheral arterial occlusive disease Psoriasis Psoriatic arthritis Stroke Home Medications Arthritis Pain Compound 2 click topical TID Pain 06/30/22 [History Last Taken Unknown] apixaban 5 mg tablet (Eliquis) 5 mg PO BID Blood Thinner 06/30/22 [History Last Taken Unknown] arginine 7 gram-glutam 7 gram-CaHMB 1.5 [id number] oral pwd pkt (Singh (with collagen)) 1 packet PO BIDCM Supplement 06/30/22 [History Last Taken Unknown] aspirin 81 mg chewable tablet 81 mg PO BREAKFAST Heart 06/30/22 [History Last Taken Unknown] atorvastatin 10 mg tablet 10 mg PO QHS Cholesterol 06/30/22 [History Last Taken Unknown] bisacodyl 10 mg rectal suppository 10 mg AR .PRN X 1 PRN Constipation #0 ea 06/30/22 [Rx Last Taken Unknown] bupropion HCl 150 mg 24 hr tablet, extended release 150 mg PO DAILY Mood 06/30/22 [History Last Taken Unknown] carvedilol 6.25 mg tablet 6.25 mg PO BIDCM BP 06/30/22 [History Last Taken Unknown] clopidogrel 75 mg tablet 75 mg PO DAILY Blood Thinner 06/30/22 [History Last Taken Unknown] folic acid 1 mg tablet 1 mg PO BREAKFAST Supplement 06/30/22 [History Last Taken Unknown] glimepiride 2 mg tablet 2 mg PO SUPPER Diabetic 06/30/22 [History Last Taken Unknown] glimepiride 4 mg tablet 4 mg PO BREAKFAST Diabetic 06/30/22 [History Last Taken Unknown] insulin glargine-yfgn 100 unit/mL (3 mL) subcutaneous pen 22 unit subcut 0700 Diabetes 06/30/22 [History Last Taken Unknown] ipratropium bromide 42 mcg (0.06 %) nasal spray 2 spray NASAL BID Check with primary doctor 06/30/22 [History Last Taken Unknown] lidocaine HCl 4 % (40 mg/mL) mucosal solution 50 ml topical X1 PRN wound debridement #0 mL 06/30/22 [Rx Last Taken Unknown] linagliptin 5 mg tablet (Tradjenta) 5 mg PO DAILY Diabetes 06/30/22 [History Last Taken Unknown] lisinopril 5 mg tablet 5 mg PO DAILY BP 06/30/22 [History Last Taken Unknown] magnesium hydroxide 400 mg/5 mL oral suspension 30 ml PO .PRN X 1 PRN Constipation #0 mL 06/30/22 [Rx Last Taken Unknown] menthol 0.44 %-zinc oxide 20.6 % topical ointment (Calmoseptine) 1 applic topical BID Skin 06/30/22 [History Last Taken Unknown] metformin 500 mg tablet 500 mg PO BIDCM Diabetes 06/30/22 [History Last Taken Unknown] methotrexate sodium 2.5 mg tablet 17.5 mg PO FR Psoriasis 06/30/22 [History Last Taken Unknown] nutrition tx glu intol,lac-free,soy-fiber 0.06 gram-1.2 kcal/mL liquid (Glucerna 1.2 Mustapha) 120 ml PO TIDCM Supplement 06/30/22 [History Last Taken Unknown] nystatin 100,000 unit/gram topical powder (Nyamyc) 1 applic topical BID Skin 06/30/22 [History Last Taken Unknown] oxycodone 5 mg tablet 5 mg PO Q4H PRN PRN Pain Score 6-10 #0 tabs 06/30/22 [Rx Last Taken Unknown] potassium chloride 20 mEq tablet,extended release(part/cryst) (Klor-Con M) 20 meq PO DAILYCM Supplement 06/30/22 [History Last Taken Unknown] sennosides 8.6 mg-docusate sodium 50 mg tablet (Stool Softener-Stimulant Laxative) 1 tab PO BID Constipation 06/30/22 [History Last Taken Unknown] sodium chloride 0.65 % nasal spray aerosol (Deep Sea Nasal) 2 spray NASAL TID Congestion 06/30/22 [History Last Taken Unknown] tamsulosin 0.4 mg capsule 0.4 mg PO DAILY@1730 Retention 06/30/22 [History Last Taken Unknown] venlafaxine 75 mg tablet 150 mg PO DAILY Mood 06/30/22 [History Last Taken Unknown] zolpidem 5 mg tablet 5 mg PO QHS Sleep 06/30/22 [History Last Taken Unknown] Allergy/AdvReac Type Severity Reaction Status Date / Time morphine Allergy PT UNSURE Verified 05/18/22 11:46 OF REACTION rivaroxaban [From Xarelto] Allergy Other Verified 05/18/22 11:46 Family History Mother CVA (cerebral vascular accident) Diabetes Heart disease Hypertension Father Diabetes Heart disease Pulmonary disease Surgical History History of back surgery Hx of CABG S/P peripheral artery bypass Status post right foot surgery Social History household members: spouse Smoking Status: Never smoker alcohol intake: never substance use type: does not use ROS Constitutional Constitutional: Denies chills, fever(s) or weight gain ENT HEENT: Denies headache(s), nasal congestion or nasal discharge Cardiovascular Cardiovascular: Denies chest pain or palpitations Respiratory/Chest Respiratory/Chest: Denies cough, excessive phlegm production or shortness of breath with exertion Gastrointestinal Gastrointestinal: Denies abdominal pain, nausea or vomiting Genitourinary Genitourinary: Denies dysuria Musculoskeletal Musculoskeletal: Denies joint pain or joint swelling Integumentary Integumentary: Denies rash or wounds Neurologic Neurologic: Denies focal weakness, numbness or tingling Psychiatric Psychiatric: Denies anxiety, auditory hallucinations, depression, homicidal ideation or suicidal ideation Vital Signs Vital Signs Vital Signs: 06/30/22 16:40 Temperature 97.2 F L Temperature Source Temporal Pulse Rate 89 Respiratory Rate 14 Blood Pressure 121/70 H Blood Pressure Mean 87 Blood Pressure Source Monitor Blood Pressure Position Sitting Blood Pressure Location Left Arm Pulse Ox 96 Oxygen Delivery Method Room Air Weight Weight: 82.355 kg Body Mass Index (BMI) 26.0 Physical Exam Const alert General Appearance: cooperative HEENT normocephalic Eyes PERRL and EOMs intact bilaterally Neck supple, no JVD and no carotid bruits Resp normal respiratory effort, normal air movement and clear to auscultation bilaterally Cardio regular rate and regular rhythm GI normal to inspection, nondistended, normoactive bowel sounds, non-tender and no n-distended Extremity normal capillary refill General Extremity: Negative for edema Skin no rashes or lesions noted General Skin Exam: no breakdown Psych affect normal Appearance: appropriate Results Lab / Micro Data Result Diagrams: 07/01/22 07:37 07/01/22 07:37 Assessment & Plan Assessment/Plan (1) Debility: (2) Diabetic ulcer of toe associated with diabetes mellitus due to underlying condition, with necrosis of bone: (3) Falls: (4) Failure to thrive: (5) LV (left ventricular) mural thrombus: (6) Coronary artery disease: (7) Rheumatoid arthritis: (8) Edema: (9) Diabetes mellitus: (10) Hypokalemia: (11) Depression: PLAN: Plan 72 year old male with below past medical history admitted to left second toe diabetic foot ulcer, transferred to TCU with debility, here for rehabilitation, strengthening, prior to discharge home with . * Debility - PT/OT. * Dysphagia - ST. * Pain - Arthritis 2 clicks topical tid, Oxycodone 5mg q4h prn. * Bowel - senna/colace 2 tablets bid, Dulcolax 10mg pr x 1 prn, MOM 30ml po x 1 prn. * Adult immunization - Administer pneumonia vaccine, covid19 vaccine, flu vaccine as appropriate. * DVT prophylaxis - Not necessary, already on Eliquis. * LV thrombus - Eliquis 5mg bid. * Hyperlipidemia - Atorvastatin 10mg qhs. * Depression - Wellbutrin 150mg daily, Venlafaxine 150mg daily, stable chronic long-term use, GDR not recommended. * Hypertension - Coreg 6.25mg bid, Lisinopril 5mg daily. * Coronary artery disease - Coreg 6.25mg bid, Lisinopril 5mg daily, Plavix 75mg daily, Eliquis 5mg bid. * Rheumatoid arthritis - MTX 17.5mg per week, Folic acid 1mg daily. * Diabetes Mellitus II - Metformin 500mg bidcm, Glimepiride 4mg am, 2mg pm, Trajdenta 5mg daily, Glargine 22 units daily. * Nutrition - Glucerna shake 120ml 4x/day, Singh 1 packet bid. * Allergic rhinitis - Atrovent 2 sprays nasal bid, Sodium chloride 2 spray nasal tid. * Skin irritation - Calmoseptine topical bid. * Tinea Corporis - Nystatin topical bid. * Hypokalemia - KCL 20meq daily. * BPH - Tamsulosin 0.4mg daily. * Insomnia - Zolpidem 5mg qhs, stable chronic long-term use, GDR not recommended.
[2022-06-30 18:00] LABS: Bedside Glucose 86 mg/dL (74-106)
[2022-06-30] MEDS: Glucerna Shake 120 ML LIQUID PO ×2 (19:26→22:16)
[2022-06-30] MEDS: APIXABAN 5 MG TABLET PO (19:26)
[2022-06-30] MEDS: Tamsulosin HCl 0.4 MG Capsule PO (19:27)
[2022-06-30] MEDS: Senna/Docusate Sodium 1 Tablet PO (19:27)
[2022-06-30] MEDS: Ipratropium Bromide 0.06% NASAL SPRAY 2 SPRAY NASAL (19:28)
[2022-06-30] MEDS: oxyCODONE 5 MG Tablet PO (19:29)
[2022-06-30 21:45] LABS: Bedside Glucose 226 mg/dL (74-106)
[2022-06-30] MEDS: Zolpidem Tartrate 5 MG Tablet PO (22:09)
[2022-06-30] MEDS: Arthritis Pain Compound 60 CLICK TUBE TOPICAL (22:09)
[2022-06-30] MEDS: Sodium Chloride 0.65% 1 SPRAY SPRAY.BTL 2 SPRAY NASAL (22:17)
[2022-06-30] MEDS: Atorvastatin Calcium 10 MG Tablet PO (22:17)
[2022-06-30] MEDS: Nystatin Powder 15gm Bottle 1 APPLIC TOPICAL (22:17)
[2022-07-01] MEDS: Arthritis Pain Compound 60 CLICK TUBE TOPICAL ×3 (05:20→21:37)
[2022-07-01] MEDS: Ipratropium Bromide 0.06% NASAL SPRAY 2 SPRAY NASAL ×2 (05:20→17:04)
[2022-07-01] MEDS: Venlafaxine HCl 75 MG Tablet 150 MG PO (05:23)
[2022-07-01] MEDS: buPROPion (XL) 150 MG TABLET.XL PO (05:24)
[2022-07-01] MEDS: Lisinopril 5 MG Tablet PO (05:24)
[2022-07-01] MEDS: Clopidogrel Bisulfate 75 MG Tablet PO (05:24)
[2022-07-01] MEDS: APIXABAN 5 MG TABLET PO ×2 (05:24→17:05)
[2022-07-01] MEDS: Senna/Docusate Sodium 1 Tablet PO ×2 (05:24→17:05)
[2022-07-01] MEDS: LINAGLIPTIN 5 MG TABLET PO (05:24)
[2022-07-01] MEDS: Glucerna Shake 120 ML LIQUID PO ×4 (05:26→21:37)
[2022-07-01] MEDS: Sodium Chloride 0.65% 1 SPRAY SPRAY.BTL 2 SPRAY NASAL ×3 (05:26→21:37)
[2022-07-01] MEDS: Nystatin Powder 15gm Bottle 1 APPLIC TOPICAL ×2 (05:27→17:06)
[2022-07-01] MEDS: Menthol/Lanolin/Calamine/Znox 113 GM Tube 1 APPLIC TOPICAL ×2 (05:28→17:14)
[2022-07-01] MEDS: Insulin Glargine-YFGN 100 UNIT/ML Pen 22 UNIT SC (06:24)
[2022-07-01 06:50] LABS: Bedside Glucose 125 mg/dL (74-106)
[2022-07-01 08:10] LABS: Absolute Lymphocyte Count 0.56 X10^3/uL (0.83-4.51); Absolute Neutrophil Count 5.3 X10^3/uL (2.0-7.7); Basophil# 0.08 X10^3/uL; Basophil% 1.2 % (0-1); Eosinophil# 0.28 X10^3/uL; Hematocrit 40.1 % (40-54); Hemoglobin 13.2 g/dL (13.0-16.5); Lymphocyte # 0.56 X10^3/ul (0.83-4.51); Lymphocyte % 8.1 % (19-41); Mean Corp Hgb Conc 32.9 g/dL (32-36); Mean Corpuscular Hgb 34.2 pg (27.0-32.0); Mean Corpuscular Volume 103.9 fL (80-94); Mean Platelet Vol. 9.6 fl (6.2-12.0); Monocyte# 0.42 X10^3/uL; Monocyte% 6.1 % (0-10); NRBC Flagged by Analyzer 0 % (0-5); Neutrophil # 5.31 X10^3/uL (2.7-7.7); Neutrophil % 76.7 % (47-70); POSITIVE DIFFERENTIAL YES; Platelet Count 205 K/mm3 (150-450); RBC Distribution Width CV 14.6 % (11.6-14.6); RBC Distribution Width SD 56.1 fl (35.1-43.9); Red Blood Count 3.86 M/mm3 (4.6-6.2); White Blood Count 6.9 K/mm3 (4.4-11.0)
[2022-07-01 08:12] LABS: Differential Indicated SCAN CRITERIA MET
[2022-07-01 08:42] LABS: Anion Gap 9 (5-15); BUN 36 mg/dL (7-18); BUN/Creat Ratio 32.7 RATIO (10-20); Calcium,Total 9.4 mg/dL (8.5-10.1); Chloride 105 mmol/L (98-107); EST Glomerular Filtration Rate 70 mL/min (>60); Est Glom Filt Rate - Afr Amer 85 mL/min (>60); Estimated Creatinine Clearance 62.68 ml/min; Glucose 150 mg/dL (74-106); Potassium 4.3 mmol/L (3.5-5.1); Sodium Level 137 mmol/L (136-145)
[2022-07-01] MEDS: Glimepiride 4 MG Tablet PO (08:51)
[2022-07-01] MEDS: metFORMIN HCl 500 MG Tablet PO ×2 (08:51→17:05)
[2022-07-01] MEDS: Carvedilol 6.25 MG Tablet PO ×2 (08:51→17:05)
[2022-07-01] MEDS: Folic Acid 1 MG Tablet PO (08:51)
[2022-07-01] MEDS: Juven (unflavored) Packet 1 PACKET PO ×2 (08:52→17:05)
[2022-07-01] MEDS: Potassium Chloride Oral Tablet 20 MEQ PO (08:52)
[2022-07-01 09:33] LABS: Differential Comment SCANNED
[2022-07-01] MEDS: Tuberculin,Purif.prot.deriv. 50 TU/ML Vial 0.1 ML ID (11:10)
[2022-07-01 11:50] LABS: Bedside Glucose 206 mg/dL (74-106)
[2022-07-01 15:07] VITALS: BP 120/52; PULSE 69; RESP 14; TEMP 36.8; O2SAT 96
[2022-07-01] MEDS: Tamsulosin HCl 0.4 MG Capsule PO (17:05)
[2022-07-01] MEDS: Glimepiride 2 MG Tablet PO (17:06)
[2022-07-01 17:10] LABS: Bedside Glucose 124 mg/dL (74-106)
[2022-07-01] MEDS: Atorvastatin Calcium 10 MG Tablet PO (21:36)
[2022-07-01] MEDS: Zolpidem Tartrate 5 MG Tablet PO (21:36)
[2022-07-01 21:46] LABS: Bedside Glucose 161 mg/dL (74-106)
[2022-07-02] MEDS: oxyCODONE 5 MG Tablet PO ×2 (01:02→11:10)
--- NOTE | 2022-07-02 02:44 | PCA ---
This lymphedema therapist and other lymphedema therapist went in to pt's room and asked him about ten times if he would get washed and changed for the night he refused every time,and he would not put his night foot brace on. Reported it to our nurse.
[2022-07-02] MEDS: Ipratropium Bromide 0.06% NASAL SPRAY 2 SPRAY NASAL ×2 (05:56→17:11)
[2022-07-02] MEDS: APIXABAN 5 MG TABLET PO ×2 (05:57→17:12)
[2022-07-02] MEDS: Glucerna Shake 120 ML LIQUID PO ×4 (05:57→22:01)
[2022-07-02] MEDS: Sodium Chloride 0.65% 1 SPRAY SPRAY.BTL 2 SPRAY NASAL ×2 (05:57→13:32)
[2022-07-02] MEDS: LINAGLIPTIN 5 MG TABLET PO (05:57)
[2022-07-02] MEDS: Arthritis Pain Compound 60 CLICK TUBE TOPICAL ×3 (05:58→22:04)
[2022-07-02] MEDS: Venlafaxine HCl 75 MG Tablet 150 MG PO (05:58)
[2022-07-02] MEDS: Clopidogrel Bisulfate 75 MG Tablet PO (05:58)
[2022-07-02] MEDS: Lisinopril 5 MG Tablet PO (05:58)
[2022-07-02] MEDS: Senna/Docusate Sodium 1 Tablet PO ×2 (05:58→17:13)
[2022-07-02] MEDS: buPROPion (XL) 150 MG TABLET.XL PO (05:58)
[2022-07-02] MEDS: Menthol/Lanolin/Calamine/Znox 113 GM Tube 1 APPLIC TOPICAL ×2 (06:04→17:12)
[2022-07-02] MEDS: Nystatin Powder 15gm Bottle 1 APPLIC TOPICAL ×2 (06:05→17:12)
[2022-07-02 06:35] LABS: Bedside Glucose 131 mg/dL (74-106)
[2022-07-02] MEDS: Insulin Glargine-YFGN 100 UNIT/ML Pen 22 UNIT SC (07:09)
[2022-07-02] MEDS: Glimepiride 4 MG Tablet PO (09:45)
[2022-07-02] MEDS: metFORMIN HCl 500 MG Tablet PO ×2 (09:46→17:10)
[2022-07-02] MEDS: Carvedilol 6.25 MG Tablet PO ×2 (09:46→17:10)
[2022-07-02] MEDS: Potassium Chloride Oral Tablet 20 MEQ PO (09:46)
[2022-07-02] MEDS: Folic Acid 1 MG Tablet PO (09:46)
[2022-07-02] MEDS: Juven (unflavored) Packet 1 PACKET PO ×2 (09:47→17:11)
--- NOTE | 2022-07-02 10:51 | NURSING ---
Metal Tile Lather Note; Activity Asset: Elle Arreaga is independent in his choice of daily activities. Prefers to be called Ray'. Ray will have his bring in his dog when I receive the shot records. 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
--- NOTE | 2022-07-02 13:35 | CASEMGMT ---
Social Work Met with patient. Assessment reentered, new BIMS completed. Confirmed full code and no changes to previous MOLST form on file. Educated to Medicare benefit. Pt's goal is to return home with . Will continue to follow. MAXIM Lopez ENVELOPE MACHINE ADJUSTER
--- NOTE | 2022-07-02 15:03 | NURSING ---
Resident educated on the COVID 19 Booster and does not want to receive it.
--- NOTE | 2022-07-02 15:30 | WOUNDNOTE ---
wound photo: right lower leg
--- NOTE | 2022-07-02 15:30 | WOUNDNOTE ---
wound photo: left foot
[2022-07-02 16:00] VITALS: BP 113/69; PULSE 82; RESP 18; TEMP 35.9; O2SAT 96
[2022-07-02] MEDS: Glimepiride 2 MG Tablet PO (17:10)
[2022-07-02] MEDS: Tamsulosin HCl 0.4 MG Capsule PO (17:11)
[2022-07-02 17:55] LABS: Bedside Glucose 101 mg/dL (74-106)
[2022-07-02 20:00] VITALS: PULSE 83; RESP 16; O2SAT 99
[2022-07-02 21:36] LABS: Bedside Glucose 203 mg/dL (74-106)
[2022-07-02] MEDS: Zolpidem Tartrate 5 MG Tablet PO (22:07)
[2022-07-02] MEDS: Atorvastatin Calcium 10 MG Tablet PO (22:09)
[2022-07-03] MEDS: oxyCODONE 5 MG Tablet PO ×2 (06:01→10:34)
[2022-07-03] MEDS: Venlafaxine HCl 75 MG Tablet 150 MG PO (06:04)
[2022-07-03] MEDS: Nystatin Powder 15gm Bottle 1 APPLIC TOPICAL ×2 (06:04→17:53)
[2022-07-03] MEDS: Senna/Docusate Sodium 1 Tablet PO ×2 (06:05→17:53)
[2022-07-03] MEDS: buPROPion (XL) 150 MG TABLET.XL PO (06:05)
[2022-07-03] MEDS: APIXABAN 5 MG TABLET PO (06:05)
[2022-07-03] MEDS: Arthritis Pain Compound 60 CLICK TUBE TOPICAL ×3 (06:05→22:11)
[2022-07-03] MEDS: Lisinopril 5 MG Tablet PO (06:05)
[2022-07-03] MEDS: Menthol/Lanolin/Calamine/Znox 113 GM Tube 1 APPLIC TOPICAL (06:06)
[2022-07-03] MEDS: Glucerna Shake 120 ML LIQUID PO ×4 (06:10→22:10)
[2022-07-03 06:40] LABS: Bedside Glucose 123 mg/dL (74-106)
[2022-07-03] MEDS: Insulin Glargine-YFGN 100 UNIT/ML Pen 22 UNIT SC (08:57)
[2022-07-03] MEDS: Carvedilol 6.25 MG Tablet PO ×2 (08:59→17:52)
[2022-07-03] MEDS: Folic Acid 1 MG Tablet PO (08:59)
[2022-07-03] MEDS: metFORMIN HCl 500 MG Tablet PO ×2 (08:59→17:52)
[2022-07-03] MEDS: Glimepiride 4 MG Tablet PO (09:00)
[2022-07-03] MEDS: LINAGLIPTIN 5 MG TABLET PO (09:00)
[2022-07-03] MEDS: Clopidogrel Bisulfate 75 MG Tablet PO (09:00)
[2022-07-03] MEDS: Juven (unflavored) Packet 1 PACKET PO ×2 (09:00→17:52)
[2022-07-03] MEDS: Potassium Chloride Oral Tablet 20 MEQ PO (09:00)
--- NOTE | 2022-07-03 10:52 | PCM.PN.DRR ---
TCU RX Drug Regimen Review Subjective: TCU Admission. 72 YOM admitted to left second toe diabetic foot ulcer. Admitted to TCU for debility for strengthening and rehabilitation. Objective: Allergies morphine Allergy (Verified 05/18/22 11:46) PT UNSURE OF REACTION i was told after surgery that i shouldn't have it rivaroxaban [From Xarelto] Allergy (Verified 05/18/22 11:46) Other Current Medications Generic Name Dose Route Start Last Admin Trade Name Freq PRN Reason Stop Dose Admin Apixaban 5 mg 06/30/22 18:00 07/03/22 06:05 Apixaban 5 Mg Tablet PO 5 mg BID RACHANA Administration Atorvastatin Calcium 10 mg 06/30/22 22:00 07/02/22 22:09 Atorvastatin Calcium 10 Mg Tablet PO 10 mg QHS RACHANA Administration Bisacodyl 10 mg 06/30/22 17:01 Bisacodyl 10 Mg Suppository RC .PRN X 1 PRN Constipation Bupropion HCl 150 mg 07/01/22 06:00 07/03/22 06:05 Bupropion (Xl) 150 Mg Tablet.Xl PO 150 mg DAILY RACHANA Administration Calamine/Phenol 1 applic 06/30/22 22:00 07/03/22 06:06 Menthol/Lanolin/Calamine/Znox 113 Gm Tube TOPICAL 1 applic BID RACHANA Administration Protocol Carvedilol 6.25 mg 07/01/22 08:00 07/03/22 08:59 Carvedilol 6.25 Mg Tablet PO 6.25 mg BIDCM RACHANA Administration Clopidogrel Bisulfate 75 mg 07/03/22 08:00 07/03/22 09:00 Clopidogrel Bisulfate 75 Mg Tablet PO 75 mg DAILY@0800 RACHANA Administration Compound Med 2 click 07/03/22 14:00 Arthritis Pain Compound 60 Click Tube TOPICAL TID RACHANA Folic Acid 1 mg 07/01/22 08:00 07/03/22 08:59 Folic Acid 1 Mg Tablet PO 1 mg BREAKFAST RACHANA Administration Glimepiride 2 mg 07/01/22 17:00 07/02/22 17:10 Glimepiride 2 Mg Tablet PO 2 mg SUPPER RACHANA Administration Glimepiride 4 mg 07/01/22 08:00 07/03/22 09:00 Glimepiride 4 Mg Tablet PO 4 mg BREAKFAST RACHANA Administration Insulin Glargine 22 unit 07/01/22 07:00 07/03/22 08:57 Insulin Glargine-Yfgn 100 Unit/Ml Pen SC 22 unit 0700 [facility] Administration Ipratropium Vandervoort 2 spray 06/30/22 18:00 07/03/22 06:03 Ipratropium Vandervoort 0.06% Nasal [place] NASAL Not Given BID [facility] L-Arginine/L-Glutamine/Calcium HMB 1 packet 07/01/22 08:00 07/03/22 09:00 Singh (Unflavored) Packet PO 1 packet BIDCM [facility] Administration Lidocaine HCl 50 ml 06/30/22 17:01 Lidocaine 4% 50 Ml Bottle TOPICAL X1 PRN wound debridement Protocol Linagliptin 5 mg 07/03/22 08:00 07/03/22 09:00 Linagliptin 5 Mg Tablet PO 5 mg DAILY@0800 [facility] Administration Lisinopril 5 mg 07/01/22 06:00 07/03/22 06:05 Lisinopril 5 Mg Tablet PO 5 mg DAILY RACHANA Administration Magnesium Hydroxide 30 ml 06/30/22 17:01 Magnesium Hydroxide 30 Ml Udc PO .PRN X 1 PRN Constipation Metformin HCl 500 mg 07/01/22 08:00 07/03/22 08:59 Metformin Hcl 500 Mg Tablet PO 500 mg BIDCM [facility] Administration Methotrexate 17.5 mg 07/06/22 06:00 Methotrexate 2.5 Mg Tablet PO Fr@0600 [facility] Nutritional Formula (Lactose Free) 120 ml 06/30/22 17:00 07/03/22 06:10 Glucerna Shake 120 Ml Liquid PO 120 ml 4X/DAY [facility] Administration Nystatin 1 applic 06/30/22 22:00 07/03/22 06:04 Nystatin Powder 15gm Bottle TOPICAL 1 applic BID [facility] Administration Protocol Oxycodone HCl 5 mg 06/30/22 17:01 07/03/22 10:34 Oxycodone 5 Mg Tablet PO 5 mg Q4H PRN PRN Administration Pain Score 6-10 Potassium Chloride 20 meq 07/01/22 08:00 07/03/22 09:00 Potassium Chloride Oral Tablet 20 Meq PO 20 meq DAILYCM [facility] Administration Senna/Docusate Sodium 1 tablet 06/30/22 18:00 07/03/22 06:05 Senna/Docusate Sodium 1 Tablet PO 1 tablet BID [facility] Administration Sodium Chloride 2 spray 06/30/22 22:00 07/03/22 06:03 Sodium Chloride 0.65% 1 [place].Btl NASAL Not Given TID RACHANA Tamsulosin HCl 0.4 mg 06/30/22 17:30 07/02/22 17:11 Tamsulosin Hcl 0.4 Mg Capsule PO 0.4 mg DAILY@1730 RACHANA Administration Tuberculin PPD 0.1 ml 07/08/22 10:00 Tuberculin,Purif.Prot.Deriv. 50 Tu/Ml Vial ID 07/08/22 10:01 X1 ONE Venlafaxine HCl 150 mg 07/01/22 06:00 07/03/22 06:04 Venlafaxine Hcl 75 Mg Tablet PO 150 mg DAILY RACHANA Administration Zolpidem Tartrate 5 mg 06/30/22 22:00 07/02/22 22:07 Zolpidem Tartrate 5 Mg Tablet PO 5 mg QHS RACHANA Administration Problem List (Last Reviewed 06/30/22 @ 17:[address] 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, with necrosis of bone (Acute) LV (left ventricular) mural thrombus (Acute) Vital Signs Temp Pulse Resp BP Pulse Ox O2 Del Method 96.7 F L 83 16 113/69 99 Room Air 07/02/22 16:00 07/02/22 20:00 07/02/22 20:00 07/02/22 16:00 07/02/22 20:00 07/02/22 20:00 Oxygen Delivery Method Room Air Weight: 83.461 kg Body Mass Index (BMI) 26.0 Sodium 137 mmol/L (136-145) 07/01/22 07:37 Potassium 4.3 mmol/L (3.5-5.1) 07/01/22 07:37 Chloride 105 mmol/L (98-107) 07/01/22 07:37 Carbon Dioxide 23.0 mmol/L (21.0-32.0) 07/01/22 07:37 Anion Gap 9 (5-15) 07/01/22 07:37 BUN 36 mg/dL (7-18) H 07/01/22 07:37 Creatinine 1.10 mg/dL (0.70-1.30) 07/01/22 07:37 Est GFR (MDRD) Af Amer 85 mL/min (>60) 07/01/22 07:37 Est GFR (MDRD) Non-Af 70 mL/min (>60) 07/01/22 07:37 BUN/Creatinine Ratio 32.7 RATIO (10-20) H 07/01/22 07:37 Glucose 150 mg/dL (74-106) H 07/01/22 07:37 Assessment/Plan: 1. Pain: arthritis pain cream 2clicks topically TID and oxycodone 5mg PO Q4H PRN pain 6-10. Resident has received 5 doses of oxycodone for generalized pain of 8-9. Please continue to monitor for increased pain, PRN usage, constipation and respiratory depression. 2. Bowel: senna/docusate 1T PO BID, bisacodyl 10mg RC x1 PRN pain and MOM 30ML PO x1 PRN constipation. Resident has not had any PRN doses. Last documented bowel movement on RU 06/28/22. Please continue to monitor for constipation and PRN usage. 3. Hypertension/CAD/LV thrombus: carvedilol 6.25mg PO BID, lisinopril 5mg PO daily, clopidogrel 75mg PO daily, apixaban 5mg PO BID. Please continue to monitor for S/S of bleeding, hemoglobin (last 13.2g/dL), BP (last 113/69), HR (last 83), potassium (last 4.3mmol/L), renal function and cough. 4. Hyperlipidemia: atorvastatin 10mg PO QHS. Please continue to monitor lipid panel (last 04/19/22), LFTs (last 06/16/22) and muscle pain. 5. Rheumatoid arthritis: methotrexate 17.5mg PO weekly and folic acid 1mg PO daily. Please continue to monitor for rash, thrombocytopenia (last plts 205,000), diarrhea, anemia (last hemoglobin 13.2g/dL), infection, and renal function (all are black box warnings for methotrexate.) 6. Diabetes mellitus II: metformin 500mg PO BIDCM, glimepiride 4mg PO AM and 2mg PM, linagliptin 5mg PO daily and insulin glargine 22units SC daily. Please continue to monitor hemoglobin A1c (last 9.1% 06/20/22), lactic acidosis (black box warning), renal function (GFR 70mL/min), glucose (last 123mg/dL), S/S of hypoglycemia (glimepiride is a BEERs medication due to high risk of prolonged hypoglycemia). 7. BPH: tamsulosin 0.4mg PO daily. Please continue to monitor for S/S of BPH and BP. 8. Hypokalemia: potassium chloride 20mEq PO daily. Please continue to monitor potassium. 9. Allergic rhinitis: ipratropium 0.06% nasal spray 2sprays nasal BID and sodium chloride nasal spray 2 sprays nasal TID. Please continue to monitor for S/S of allergies. Assessment/Plan for indications treated with psychotropic medications: 1. Depression: bupropion XL 150mg PO daily and venlafaxine 150mg PO daily. Please see physician note regarding GDR. Please continue to monitor for suicidal ideation (black box warning), falls/fractures (BEERs medication, venlafaxine), weight gain and sodium (last 137mmol/L). 2. Insomnia: zolpidem 5mg PO QHS. Please see physician note regarding GDR. Please continue to monitor for excessive drowsiness, complex sleep-related behaviors (black box warning, e.g. eating while sleeping), delirium/dementia (BEERs medication), falls/fractures (BEERs medication). Medical chart and medication regimen reviewed. The following medication irregularities or issues were identified: None Date of Note:: 07/03/22
[2022-07-03 11:26] LABS: Bedside Glucose 177 mg/dL (74-106)
--- NOTE | 2022-07-03 12:46 | CHAPLAIN ---
Type of Pastoral Visit ___ Initial Visit _x__ Follow-up Visit ___ On-call Visit ___ General Patient Visit ___ Spiritual Assessment ___ Family Conference ___ Bereavement ___ Rapid Response ___ Code Blue ___ Other (describe below) Pastoral Care Referral From _x__ Patient ___ Family ___ Nurse ___ Physician ___ Perioperative Manager ___ Medical Equipment Repair Technician ___ Other (describe below) Sacrament/Intervention _x__ Active listening ___ Anointing ___ Restorationist ___ Bereavement ___ Communion ___ Ramona exploration ___ ___ Life review _x__ Prayer ___ Reconciliation ___ Sacrament of Sick ___ Supportive presence ___ Wedding ___ Other (describe below) Pastoral Comments patient is polite and answers questions given; pt talks about his dog as he watches the [employer] channel on TV; pt welcomes a prayer and asks for prayer for his daughter's health;
[2022-07-03 13:40] VITALS: PULSE 102; RESP 16; O2SAT 94
--- NOTE | 2022-07-03 13:46 | CASEMGMT ---
Social Work IDT discussed patient's progress and DC recommendations in UR. Team concerned about pt being able to return home and be alone while is working. Pt is needing assistance with all ADLs and IADLs. IDT recommending schedule times for therapy training and shared care during visits. SW to contact to schedule as goal for LOS in TCU is approx. two weeks. SW contacted . stated she is in the middle of a crisis right and can't talk right now. SW offered to assist. stated they got hacked and are working to get things resolved and will contact this worker at a later time. SW to continue to follow. Gina Daniel, BOAT CAPTAIN FRONT EDGER
[2022-07-03 13:59] VITALS: BP 153/82; PULSE 95; RESP 20; TEMP 36.2; O2SAT 97
[2022-07-03 17:15] LABS: Bedside Glucose 152 mg/dL (74-106)
[2022-07-03] MEDS: Glimepiride 2 MG Tablet PO (17:51)
[2022-07-03] MEDS: Tamsulosin HCl 0.4 MG Capsule PO (17:52)
--- NOTE | 2022-07-03 19:48 | NURSING ---
Addendum entered by Unruly Cross 07/03/22 20:45: Spouse Ju presents on unit requesting ENT appointment date and time, information provided upon request. Spouse states plans to provide transport to ENT appointment. Original Note: Spoke with patient and patient's about setting up ENT appt to address patient's nose bleeds. On phone was unsure about how difficult it'd be to transport patient but didn't want to pay a large amount for transport and she confirmed she is off work tomorrow. Patient said to go ahead and make appointment. Called ENT office and visit set up for tomorrow 07/04 @ [id number] w/ Dr. Mike. Patient updated, left message with to call nurse back.
[2022-07-03] MEDS: Zolpidem Tartrate 5 MG Tablet PO (22:10)
[2022-07-03] MEDS: Atorvastatin Calcium 10 MG Tablet PO (22:12)
[2022-07-03 22:16] LABS: Bedside Glucose 155 mg/dL (74-106)
[2022-07-04] MEDS: Nystatin Powder 15gm Bottle 1 APPLIC TOPICAL ×2 (05:56→17:16)
[2022-07-04] MEDS: Glucerna Shake 120 ML LIQUID PO ×4 (05:59→21:23)
[2022-07-04] MEDS: buPROPion (XL) 150 MG TABLET.XL PO (06:00)
[2022-07-04] MEDS: Venlafaxine HCl 75 MG Tablet 150 MG PO (06:00)
[2022-07-04] MEDS: Arthritis Pain Compound 60 CLICK TUBE TOPICAL ×3 (06:00→21:29)
[2022-07-04] MEDS: Senna/Docusate Sodium 1 Tablet PO ×2 (06:00→17:10)
[2022-07-04] MEDS: Lisinopril 5 MG Tablet PO (06:00)
[2022-07-04] MEDS: Menthol/Lanolin/Calamine/Znox 113 GM Tube 1 APPLIC TOPICAL ×2 (06:01→17:13)
--- NOTE | 2022-07-04 06:11 | NURSING ---
no epistaxis observed or reported this shift
[2022-07-04 07:01] LABS: Bedside Glucose 145 mg/dL (74-106)
[2022-07-04] MEDS: Juven (unflavored) Packet 1 PACKET PO ×2 (08:04→17:10)
[2022-07-04] MEDS: Potassium Chloride Oral Tablet 20 MEQ PO (08:05)
[2022-07-04] MEDS: Insulin Glargine-YFGN 100 UNIT/ML Pen 22 UNIT SC (08:05)
[2022-07-04] MEDS: LINAGLIPTIN 5 MG TABLET PO (08:06)
[2022-07-04] MEDS: Folic Acid 1 MG Tablet PO (08:06)
[2022-07-04] MEDS: Clopidogrel Bisulfate 75 MG Tablet PO (08:06)
[2022-07-04] MEDS: oxyCODONE 5 MG Tablet PO ×4 (08:06→21:22)
[2022-07-04] MEDS: Carvedilol 6.25 MG Tablet PO ×2 (08:06→17:10)
[2022-07-04] MEDS: metFORMIN HCl 500 MG Tablet PO ×2 (08:06→17:10)
[2022-07-04] MEDS: Glimepiride 4 MG Tablet PO (08:06)
--- NOTE | 2022-07-04 09:43 | CASEMGMT ---
Social Work IDT met with patient and via conference call for care plan meeting. Discussed patient's progress in PT/OT/ST/SN. Educated to Medicare benefit. Encouraged to contact secondary insurance to ensure copay coverage. Therapy asked level pt needs to be at to return home with assistance. stated she has back issues and can only physically assist minimally. also requested to work on car transfers. Offered therapy family training for . SW asked when would be a good time to speak 1:1 with this worker to discuss DC plans in detail. will be visiting this afternoon and will speak with this worker at that time. SW encouraged pt to continue wearing CPAP as this will benefit pt. Pt agreed to try wearing tonight. SW to continue to follow. MAXIM LopezW
[2022-07-04 11:30] LABS: Bedside Glucose 180 mg/dL (74-106)
[2022-07-04] MEDS: Sodium Chloride 0.65% 1 SPRAY SPRAY.BTL 2 SPRAY NASAL (11:49)
[2022-07-04 14:38] VITALS: BP 117/66; PULSE 96; RESP 18; TEMP 36.3; O2SAT 96
--- NOTE | 2022-07-04 15:59 | CASEMGMT ---
Social Work SW met with pt and in room. Engaged in open, honest, realistic conversation about DC plans. SW educated to level of assistance pt is currently requiring, IDTs recommendations for 24/ care d/t level of care, goal for DC around the two week timeframe. expressed she is very concerned about her mental health, high stress levels, caregiver burnout, all surrounding taking care of pt outside of working part-time, along with physically caring for their disabled daughter in the home. Pt disagrees with needing extensive assist and not being able to be left alone at home. SW acknowledged disagreement, and offered even if pt and agree pt can be left alone, still needs to provide the care for pt while at home. agreed and inquired about options. SW educated to nonskilled and skilled HHC - provided list of nonskilled HYDROTHERAPIST agencies; and SNF option, long with financial liability. and pt both state they are unable to pay for any service out of pocket. SW offered assistance with Medicaid application and the assistance it could provide in the community and SNF. Both agreeable to apply. SW acknowledged the progress pt made thus far and the goals for continued progress. However, pt is functioning at a different level now than prior and pt is not demonstrating the insight to current deficits. Both are hesitant on deciding on a plan. SW encouraged and pt to honestly discuss DC plans 1:1. SW offered for to provide this worker with work schedule to coordinate shared care of pt and training during therapy sessions. Explained it is a controlled environment, and has the opportunity to ask for help from staff, to get a hands-on understanding of care pt will need. agreeable and only gets work schedule a week in advance, and will contact this worker. SW appreciative. SW provided SHAW application and printed SNF list for [facility] with quality and resource data via CarePort Guide for pt/ to review. Will continue to follow. MAXIM LopezW
[2022-07-04 16:45] LABS: Bedside Glucose 111 mg/dL (74-106)
[2022-07-04] MEDS: Ipratropium Bromide 0.06% NASAL SPRAY 2 SPRAY NASAL (17:08)
[2022-07-04] MEDS: Tamsulosin HCl 0.4 MG Capsule PO (17:10)
[2022-07-04] MEDS: Glimepiride 2 MG Tablet PO (17:10)
[2022-07-04 20:23] VITALS: PULSE 86; RESP 18; O2SAT 97
[2022-07-04] MEDS: Zolpidem Tartrate 5 MG Tablet PO (21:23)
[2022-07-04] MEDS: Atorvastatin Calcium 10 MG Tablet PO (21:24)
[2022-07-04 22:06] LABS: Bedside Glucose 125 mg/dL (74-106)
[2022-07-05] MEDS: oxyCODONE 5 MG Tablet PO ×2 (02:06→20:32)
[2022-07-05] MEDS: Glucerna Shake 120 ML LIQUID PO ×4 (05:16→20:34)
[2022-07-05] MEDS: buPROPion (XL) 150 MG TABLET.XL PO (05:17)
[2022-07-05] MEDS: Senna/Docusate Sodium 1 Tablet PO ×2 (05:17→17:31)
[2022-07-05] MEDS: Lisinopril 5 MG Tablet PO (05:17)
[2022-07-05] MEDS: Arthritis Pain Compound 60 CLICK TUBE TOPICAL ×3 (05:18→20:35)
[2022-07-05] MEDS: Nystatin Powder 15gm Bottle 1 APPLIC TOPICAL (05:18)
[2022-07-05] MEDS: Venlafaxine HCl 75 MG Tablet 150 MG PO (05:18)
[2022-07-05] MEDS: Menthol/Lanolin/Calamine/Znox 113 GM Tube 1 APPLIC TOPICAL ×2 (05:19→17:31)
[2022-07-05 06:36] LABS: Bedside Glucose 128 mg/dL (74-106)
[2022-07-05 07:43] VITALS: O2SAT 94
[2022-07-05] MEDS: Juven (unflavored) Packet 1 PACKET PO ×2 (08:07→17:31)
[2022-07-05] MEDS: Insulin Glargine-YFGN 100 UNIT/ML Pen 22 UNIT SC (08:08)
[2022-07-05] MEDS: Clopidogrel Bisulfate 75 MG Tablet PO (08:09)
[2022-07-05] MEDS: Glimepiride 4 MG Tablet PO (08:09)
[2022-07-05] MEDS: Folic Acid 1 MG Tablet PO (08:09)
[2022-07-05] MEDS: metFORMIN HCl 500 MG Tablet PO ×2 (08:09→17:31)
[2022-07-05] MEDS: LINAGLIPTIN 5 MG TABLET PO (08:09)
[2022-07-05] MEDS: Potassium Chloride Oral Tablet 20 MEQ PO (08:09)
[2022-07-05] MEDS: Carvedilol 6.25 MG Tablet PO ×2 (08:10→17:31)
[2022-07-05 08:16] VITALS: BP 115/62; PULSE 94
[2022-07-05] MEDS: Acetaminophen 500 MG Tablet 1000 MG PO ×3 (08:45→20:36)
--- NOTE | 2022-07-05 09:27 | NURSING ---
pt unable to use urinal or stand without significant assistance from staff. After this nurse washed pt and placed clean brief and pants on him, pt was unable to assist with pulling up clothing, furthermore, pt was unable to stand for entire time for staff to pullup and adjust clothing. He required assistance of 2 staff members to complete this task. Provided education about the importance of pt being able to complete these tasks safely at home.
[2022-07-05 10:00] VITALS: PULSE 98; RESP 18; O2SAT 99
[2022-07-05 11:40] LABS: Bedside Glucose 146 mg/dL (74-106)
[2022-07-05] MEDS: Sodium Chloride 0.65% 1 SPRAY SPRAY.BTL 2 SPRAY NASAL ×2 (13:10→20:36)
--- NOTE | 2022-07-05 14:08 | MDS.RN ---
Pain assessment for AKILA 07/07/22.
[2022-07-05 14:36] VITALS: BP 113/66; PULSE 90; RESP 18; TEMP 36.8; O2SAT 95
[2022-07-05 17:11] LABS: Bedside Glucose 76 mg/dL (74-106)
[2022-07-05] MEDS: Tamsulosin HCl 0.4 MG Capsule PO (17:31)
[2022-07-05] MEDS: Glimepiride 2 MG Tablet PO (17:31)
[2022-07-05] MEDS: Ipratropium Bromide 0.06% NASAL SPRAY 2 SPRAY NASAL (17:33)
[2022-07-05] MEDS: Atorvastatin Calcium 10 MG Tablet PO (20:35)
[2022-07-05] MEDS: Zolpidem Tartrate 5 MG Tablet PO (20:39)
[2022-07-05 21:30] LABS: Bedside Glucose 143 mg/dL (74-106)
[2022-07-06] MEDS: oxyCODONE 5 MG Tablet PO ×2 (04:04→20:47)
[2022-07-06] MEDS: Menthol/Lanolin/Calamine/Znox 113 GM Tube 1 APPLIC TOPICAL ×2 (04:05→17:46)
[2022-07-06] MEDS: Arthritis Pain Compound 60 CLICK TUBE TOPICAL ×3 (04:05→20:47)
[2022-07-06] MEDS: Ipratropium Bromide 0.06% NASAL SPRAY 2 SPRAY NASAL ×2 (04:05→17:44)
[2022-07-06] MEDS: Acetaminophen 500 MG Tablet 1000 MG PO ×3 (04:06→20:48)
[2022-07-06] MEDS: Lisinopril 5 MG Tablet PO (04:06)
[2022-07-06] MEDS: Venlafaxine HCl 75 MG Tablet 150 MG PO (04:06)
[2022-07-06] MEDS: buPROPion (XL) 150 MG TABLET.XL PO (04:06)
[2022-07-06] MEDS: Glucerna Shake 120 ML LIQUID PO (04:06)
[2022-07-06] MEDS: Methotrexate 2.5 MG Tablet 17.5 MG PO (04:07)
[2022-07-06] MEDS: Nystatin Powder 15gm Bottle 1 APPLIC TOPICAL ×2 (04:07→17:43)
[2022-07-06] MEDS: Senna/Docusate Sodium 1 Tablet PO (04:08)
[2022-07-06 06:31] LABS: Bedside Glucose 78 mg/dL (74-106)
[2022-07-06 07:46] VITALS: BP 116/65; PULSE 101
[2022-07-06] MEDS: LINAGLIPTIN 5 MG TABLET PO (07:46)
[2022-07-06] MEDS: Glimepiride 4 MG Tablet PO (07:46)
[2022-07-06] MEDS: Potassium Chloride Oral Tablet 20 MEQ PO (07:46)
[2022-07-06] MEDS: Juven (unflavored) Packet 1 PACKET PO ×2 (07:46→17:43)
[2022-07-06] MEDS: Clopidogrel Bisulfate 75 MG Tablet PO (07:46)
[2022-07-06] MEDS: metFORMIN HCl 500 MG Tablet PO ×2 (07:47→17:44)
[2022-07-06] MEDS: Folic Acid 1 MG Tablet PO (07:47)
[2022-07-06] MEDS: Insulin Glargine-YFGN 100 UNIT/ML Pen 22 UNIT SC (07:47)
[2022-07-06] MEDS: Carvedilol 6.25 MG Tablet PO ×2 (07:47→17:45)
[2022-07-06] MEDS: Ondansetron ODT 4 MG Tablet 8 MG PO ×2 (09:29→17:53)
--- NOTE | 2022-07-06 09:39 | NURSING ---
Addendum entered by Savanna Castro 07/06/22 12:13: R' ATTEMPTING TO EAT LUNCH AT THIS TIME. WILL CONT' TO MONITOR. Addendum entered by Savanna Castro 07/06/22 10:58: DR FRITZ ON UNIT AND SAW R'. STATED SHE WAS GOING TO TALK TO DR MESSINA ABOUT RECURRENT NAUSEA/VOMITING. N.O. PROTONIX. Addendum entered by Bibi Duran 07/06/22 09:58: BLOOD SUGAR 111 Original Note: THERAPY REPORTED R' NAUSEA/VOMITING. R' VOMITED LG AMT OF EMESIS. ZOFRAN GIVEN. BP 132/78, PULSE 113. HAD BM PRIOR TO NAUSEA. SPRITE GIVEN AT THIS TIME. CLOTHES CHANGED. NOW RESTING IN R/C WITH LE ELEVATED. WILL MONITOR.
[2022-07-06 10:15] LABS: Bedside Glucose 111 mg/dL (74-106)
--- NOTE | 2022-07-06 10:34 | CASEMGMT ---
Social Work BIMS (03/31) and PHQ-9 () completed for MDS assessment. Pt continues to deny assistance with depression, after care resources, is not continuing to wear CPAP. SW offered ongoing emotional support. Pt does not typically engage in conversation. SW to continue to monitor. Gina Daniel, MAXIM GARNETTW
[2022-07-06] MEDS: Pantoprazole Sodium 40 MG Tablet PO (11:32)
[2022-07-06 11:45] LABS: Bedside Glucose 162 mg/dL (74-106)
[2022-07-06] MEDS: Sodium Chloride 0.65% 1 SPRAY SPRAY.BTL 2 SPRAY NASAL (12:51)
[2022-07-06 15:38] VITALS: BP 107/69; PULSE 110; RESP 22; TEMP 37.5; O2SAT 96
[2022-07-06 16:36] LABS: Bedside Glucose 257 mg/dL (74-106)
[2022-07-06] MEDS: Tamsulosin HCl 0.4 MG Capsule PO (17:45)
[2022-07-06 17:57] VITALS: BP 104/71; PULSE 100; RESP 18; TEMP 37.3; O2SAT 96
[2022-07-06] MEDS: Atorvastatin Calcium 10 MG Tablet PO (20:50)
[2022-07-06 21:00] VITALS: O2SAT 96
[2022-07-06] MEDS: Zolpidem Tartrate 5 MG Tablet PO (21:06)
[2022-07-06 21:45] LABS: Bedside Glucose 77 mg/dL (74-106)
[2022-07-07] MEDS: Ipratropium Bromide 0.06% NASAL SPRAY 2 SPRAY NASAL ×2 (05:40→17:12)
[2022-07-07] MEDS: Lisinopril 5 MG Tablet PO (05:41)
[2022-07-07] MEDS: buPROPion (XL) 150 MG TABLET.XL PO (05:41)
[2022-07-07] MEDS: Venlafaxine HCl 75 MG Tablet 150 MG PO (05:41)
[2022-07-07] MEDS: Senna/Docusate Sodium 1 Tablet PO ×2 (05:41→17:13)
[2022-07-07] MEDS: Acetaminophen 500 MG Tablet 1000 MG PO ×3 (05:41→21:53)
[2022-07-07] MEDS: Arthritis Pain Compound 60 CLICK TUBE TOPICAL ×3 (05:41→21:51)
[2022-07-07] MEDS: Pantoprazole Sodium 40 MG Tablet PO (05:41)
[2022-07-07] MEDS: Nystatin Powder 15gm Bottle 1 APPLIC TOPICAL ×2 (05:42→17:15)
[2022-07-07] MEDS: Menthol/Lanolin/Calamine/Znox 113 GM Tube 1 APPLIC TOPICAL ×2 (05:42→17:14)
[2022-07-07] MEDS: Sodium Chloride 0.65% 1 SPRAY SPRAY.BTL 2 SPRAY NASAL ×3 (05:42→21:54)
[2022-07-07] MEDS: Glucerna Shake 120 ML LIQUID PO ×4 (05:43→21:50)
[2022-07-07 06:50] LABS: Bedside Glucose 117 mg/dL (74-106)
[2022-07-07 08:11] VITALS: O2SAT 97
[2022-07-07] MEDS: metFORMIN HCl 500 MG Tablet PO ×2 (08:29→17:12)
[2022-07-07] MEDS: Carvedilol 6.25 MG Tablet PO ×2 (08:29→17:11)
[2022-07-07] MEDS: Folic Acid 1 MG Tablet PO (08:29)
[2022-07-07] MEDS: Glimepiride 4 MG Tablet PO (08:29)
[2022-07-07] MEDS: LINAGLIPTIN 5 MG TABLET PO (08:30)
[2022-07-07] MEDS: Juven (unflavored) Packet 1 PACKET PO ×2 (08:30→17:12)
[2022-07-07] MEDS: Potassium Chloride Oral Tablet 20 MEQ PO (08:30)
[2022-07-07] MEDS: Clopidogrel Bisulfate 75 MG Tablet PO (08:31)
[2022-07-07] MEDS: Insulin Glargine-YFGN 100 UNIT/ML Pen 22 UNIT SC (08:32)
[2022-07-07 08:37] VITALS: BP 119/72; PULSE 99
[2022-07-07 11:26] LABS: Bedside Glucose 131 mg/dL (74-106)
[2022-07-07 15:03] VITALS: BP 122/68; PULSE 92; RESP 18; TEMP 36.2; O2SAT 96
[2022-07-07 17:06] LABS: Bedside Glucose 90 mg/dL (74-106)
[2022-07-07] MEDS: Tamsulosin HCl 0.4 MG Capsule PO (17:12)
[2022-07-07] MEDS: oxyCODONE 5 MG Tablet PO ×2 (17:32→21:58)
[2022-07-07 21:45] LABS: Bedside Glucose 110 mg/dL (74-106)
[2022-07-07] MEDS: Atorvastatin Calcium 10 MG Tablet PO (21:52)
[2022-07-07] MEDS: Zolpidem Tartrate 5 MG Tablet PO (21:58)
[2022-07-07 22:00] VITALS: PULSE 93; RESP 16; O2SAT 93
[2022-07-08 04:07] LABS: Absolute Lymphocyte Count 0.61 X10^3/uL (0.83-4.51); Absolute Neutrophil Count 4.6 X10^3/uL (2.0-7.7); Basophil# 0.07 X10^3/uL; Basophil% 1.1 % (0-1); Eosinophil# 0.01 X10^3/uL; Eosinophils% 0.2 % (0-5); Hematocrit 37.5 % (40-54); Hemoglobin 12.3 g/dL (13.0-16.5); Lymphocyte # 0.61 X10^3/ul (0.83-4.51); Lymphocyte % 9.9 % (19-41); Mean Corp Hgb Conc 32.8 g/dL (32-36); Mean Corpuscular Hgb 33.9 pg (27.0-32.0); Mean Corpuscular Volume 103.3 fL (80-94); Mean Platelet Vol. 9.1 fl (6.2-12.0); Monocyte# 0.75 X10^3/uL; Monocyte% 12.1 % (0-10); NRBC Flagged by Analyzer 0 % (0-5); Neutrophil # 4.59 X10^3/uL (2.7-7.7); Neutrophil % 74.1 % (47-70); Platelet Count 208 K/mm3 (150-450); RBC Distribution Width CV 14.6 % (11.6-14.6); RBC Distribution Width SD 55.5 fl (35.1-43.9); Red Blood Count 3.63 M/mm3 (4.6-6.2); White Blood Count 6.2 K/mm3 (4.4-11.0)
[2022-07-08 04:29] LABS: Anion Gap 8 (5-15); BUN 42 mg/dL (7-18); BUN/Creat Ratio 32.6 RATIO (10-20); Calcium,Total 9.4 mg/dL (8.5-10.1); Chloride 103 mmol/L (98-107); Creatinine, Serum 1.29 mg/dL (0.70-1.30); EST Glomerular Filtration Rate 58 mL/min (>60); Est Glom Filt Rate - Afr Amer 70 mL/min (>60); Estimated Creatinine Clearance 53.45 ml/min; Glucose 56 mg/dL (74-106); Potassium 4.6 mmol/L (3.5-5.1); Sodium Level 137 mmol/L (136-145)
[2022-07-08] MEDS: Ipratropium Bromide 0.06% NASAL SPRAY 2 SPRAY NASAL (04:55)
[2022-07-08] MEDS: Arthritis Pain Compound 60 CLICK TUBE TOPICAL ×3 (04:55→21:25)
[2022-07-08] MEDS: Menthol/Lanolin/Calamine/Znox 113 GM Tube 1 APPLIC TOPICAL ×2 (04:55→21:24)
[2022-07-08] MEDS: buPROPion (XL) 150 MG TABLET.XL PO (04:56)
[2022-07-08] MEDS: Senna/Docusate Sodium 1 Tablet PO ×2 (04:56→18:07)
[2022-07-08] MEDS: Acetaminophen 500 MG Tablet 1000 MG PO ×3 (04:56→21:27)
[2022-07-08] MEDS: Lisinopril 5 MG Tablet PO (04:56)
[2022-07-08] MEDS: Venlafaxine HCl 75 MG Tablet 150 MG PO (04:57)
[2022-07-08] MEDS: Glucerna Shake 120 ML LIQUID PO ×3 (04:58→18:03)
[2022-07-08] MEDS: Nystatin Powder 15gm Bottle 1 APPLIC TOPICAL ×2 (04:58→21:24)
[2022-07-08] MEDS: Sodium Chloride 0.65% 1 SPRAY SPRAY.BTL 2 SPRAY NASAL ×2 (05:00→21:26)
[2022-07-08] MEDS: Pantoprazole Sodium 40 MG Tablet PO (05:13)
[2022-07-08] MEDS: APIXABAN 5 MG TABLET PO (06:08)
[2022-07-08 06:45] LABS: Bedside Glucose 74 mg/dL (74-106)
[2022-07-08 07:41] VITALS: O2SAT 96
[2022-07-08] MEDS: Carvedilol 6.25 MG Tablet PO ×2 (08:04→18:05)
[2022-07-08] MEDS: Glimepiride 4 MG Tablet PO (08:04)
[2022-07-08] MEDS: Juven (unflavored) Packet 1 PACKET PO ×2 (08:05→18:06)
[2022-07-08] MEDS: Clopidogrel Bisulfate 75 MG Tablet PO (08:05)
[2022-07-08] MEDS: Folic Acid 1 MG Tablet PO (08:05)
[2022-07-08] MEDS: metFORMIN HCl 500 MG Tablet PO ×2 (08:05→18:06)
[2022-07-08] MEDS: Potassium Chloride Oral Tablet 20 MEQ PO (08:05)
[2022-07-08] MEDS: LINAGLIPTIN 5 MG TABLET PO (08:06)
[2022-07-08] MEDS: Insulin Glargine-YFGN 100 UNIT/ML Pen 22 UNIT SC (08:07)
[2022-07-08 11:21] LABS: Bedside Glucose 162 mg/dL (74-106)
[2022-07-08] MEDS: Tuberculin,Purif.prot.deriv. 50 TU/ML Vial 0.1 ML ID (11:55)
[2022-07-08] MEDS: oxyCODONE 5 MG Tablet PO ×2 (15:25→21:23)
[2022-07-08 16:00] VITALS: BP 126/68; PULSE 100; RESP 17; TEMP 36.7; O2SAT 96
[2022-07-08 16:35] LABS: Bedside Glucose 47 mg/dL (74-106)
--- NOTE | 2022-07-08 16:47 | NURSING ---
Blood sugar low this afternoon, patient alert,says he doesn't feel good. He drank juice and ate snack, feeling some better, sugar now up to 86. Updated Dr Medina that blood sugar low this afternoon, order to DC insulin. Updated him that patient has had nose bleeds throughout today, tissues in trash can with blood on them, never a large amount at once or bleeding that won't stop. Verbal order to DC eliquis.
[2022-07-08 16:55] LABS: Bedside Glucose 86 mg/dL (74-106)
[2022-07-08] MEDS: Tamsulosin HCl 0.4 MG Capsule PO (18:06)
[2022-07-08 18:46] LABS: Bedside Glucose 168 mg/dL (74-106)
[2022-07-08] MEDS: Zolpidem Tartrate 5 MG Tablet PO (21:23)
[2022-07-08] MEDS: Atorvastatin Calcium 10 MG Tablet PO (21:26)
[2022-07-08 21:35] LABS: Bedside Glucose 113 mg/dL (74-106)
[2022-07-08 22:00] VITALS: PULSE 93; RESP 18; O2SAT 93
--- NOTE | 2022-07-08 22:45 | NURSING ---
Spoke w/ pt about nosebleeds. He denies any further nosebleeds. Had appt w/ ENT last week but was unsure of outcome. Staff may need to obtain a copy of office visit note. Pt aware Jackie was dc'ed and noted concerns of staff when medications should be restarted. Pt notes he thinks medication should be on hold for at least a week. Questioned allergic reaction to Xarelto noted in system. He notes blisters developed on his legs when taking Xarelto. Will continue to monitor.
[2022-07-09] MEDS: Acetaminophen 500 MG Tablet 1000 MG PO ×3 (05:46→20:18)
[2022-07-09] MEDS: Ipratropium Bromide 0.06% NASAL SPRAY 2 SPRAY NASAL ×2 (05:46→17:29)
[2022-07-09] MEDS: Lisinopril 5 MG Tablet PO (05:46)
[2022-07-09] MEDS: buPROPion (XL) 150 MG TABLET.XL PO (05:46)
[2022-07-09] MEDS: Arthritis Pain Compound 60 CLICK TUBE TOPICAL ×3 (05:46→20:17)
[2022-07-09] MEDS: Menthol/Lanolin/Calamine/Znox 113 GM Tube 1 APPLIC TOPICAL ×2 (05:46→17:30)
[2022-07-09] MEDS: Pantoprazole Sodium 40 MG Tablet PO (05:46)
[2022-07-09] MEDS: Nystatin Powder 15gm Bottle 1 APPLIC TOPICAL ×2 (05:47→17:30)
[2022-07-09] MEDS: Venlafaxine HCl 75 MG Tablet 150 MG PO (05:47)
[2022-07-09] MEDS: Glucerna Shake 120 ML LIQUID PO ×3 (05:47→17:34)
[2022-07-09] MEDS: Sodium Chloride 0.65% 1 SPRAY SPRAY.BTL 2 SPRAY NASAL ×2 (05:48→13:57)
[2022-07-09] MEDS: Senna/Docusate Sodium 1 Tablet PO (05:49)
[2022-07-09 06:45] LABS: Bedside Glucose 66 mg/dL (74-106)
[2022-07-09] MEDS: LINAGLIPTIN 5 MG TABLET PO (08:37)
[2022-07-09] MEDS: Potassium Chloride Oral Tablet 20 MEQ PO (08:37)
[2022-07-09] MEDS: Clopidogrel Bisulfate 75 MG Tablet PO (08:37)
[2022-07-09] MEDS: Folic Acid 1 MG Tablet PO (08:37)
[2022-07-09] MEDS: metFORMIN HCl 500 MG Tablet PO (08:37)
[2022-07-09] MEDS: Carvedilol 6.25 MG Tablet PO ×2 (08:37→17:29)
[2022-07-09] MEDS: Juven (unflavored) Packet 1 PACKET PO ×2 (08:37→17:29)
[2022-07-09 08:47] VITALS: BP 128/77; PULSE 105
--- NOTE | 2022-07-09 08:48 | NURSING ---
Supplier Diversity Director Note; MDS for 07/07/2022 Complete
[2022-07-09] MEDS: Glimepiride 1 MG Tablet PO (08:52)
[2022-07-09 11:25] LABS: Bedside Glucose 125 mg/dL (74-106)
[2022-07-09 14:15] VITALS: BP 113/65; PULSE 98; RESP 12; TEMP 36.8; O2SAT 94
[2022-07-09 16:15] LABS: Bedside Glucose 182 mg/dL (74-106)
[2022-07-09 16:40] LABS: Bedside Glucose 69 mg/dL (74-106)
--- NOTE | 2022-07-09 16:42 | NURSING ---
Pt BS is low 69 pt given Mayetta Juice and a Snack will recheck Blood sugar and update Dr. Medina.
[2022-07-09 17:20] LABS: Bedside Glucose 117 mg/dL (74-106)
[2022-07-09] MEDS: Tamsulosin HCl 0.4 MG Capsule PO (17:29)
[2022-07-09 17:32] VITALS: BP 123/51; PULSE 92
[2022-07-09] MEDS: Ondansetron ODT 4 MG Tablet 8 MG PO (20:02)
[2022-07-09] MEDS: oxyCODONE 5 MG Tablet PO (20:17)
[2022-07-09] MEDS: Atorvastatin Calcium 10 MG Tablet PO (20:19)
[2022-07-09 20:20] VITALS: O2SAT 93
[2022-07-09 21:41] LABS: Bedside Glucose 194 mg/dL (74-106)
[2022-07-09] MEDS: Zolpidem Tartrate 5 MG Tablet PO (21:51)
[2022-07-10 05:20] VITALS: BP 134/73; PULSE 100
[2022-07-10] MEDS: Venlafaxine HCl 75 MG Tablet 150 MG PO (05:27)
[2022-07-10] MEDS: Pantoprazole Sodium 40 MG Tablet PO (05:27)
[2022-07-10] MEDS: Arthritis Pain Compound 60 CLICK TUBE TOPICAL ×3 (05:27→22:03)
[2022-07-10] MEDS: Lisinopril 5 MG Tablet PO (05:27)
[2022-07-10] MEDS: buPROPion (XL) 150 MG TABLET.XL PO (05:27)
[2022-07-10] MEDS: Acetaminophen 500 MG Tablet 1000 MG PO ×3 (05:27→22:02)
[2022-07-10] MEDS: Senna/Docusate Sodium 1 Tablet PO ×2 (05:27→17:01)
[2022-07-10] MEDS: Glucerna Shake 120 ML LIQUID PO ×4 (05:30→22:02)
[2022-07-10] MEDS: Nystatin Powder 15gm Bottle 1 APPLIC TOPICAL ×2 (05:30→17:02)
[2022-07-10] MEDS: Menthol/Lanolin/Calamine/Znox 113 GM Tube 1 APPLIC TOPICAL ×2 (05:33→17:02)
[2022-07-10 06:40] LABS: Bedside Glucose 149 mg/dL (74-106)
--- NOTE | 2022-07-10 07:41 | NURSING ---
had shower with therapy this AM, 2n toe drsg changed on LT foot this AM per orders. mepilex intact and dry to LT foot, changed mepilex to buttocks too wet to leave on.
[2022-07-10] MEDS: Clopidogrel Bisulfate 75 MG Tablet PO (07:53)
[2022-07-10] MEDS: LINAGLIPTIN 5 MG TABLET PO (07:53)
[2022-07-10] MEDS: Potassium Chloride Oral Tablet 20 MEQ PO (07:53)
[2022-07-10] MEDS: Juven (unflavored) Packet 1 PACKET PO ×2 (07:54→17:01)
[2022-07-10] MEDS: Folic Acid 1 MG Tablet PO (07:54)
[2022-07-10] MEDS: Carvedilol 6.25 MG Tablet PO ×2 (07:54→17:06)
--- NOTE | 2022-07-10 09:37 | CASEMGMT ---
Addendum entered by Gina Daniel 07/11/22 08:57: Marli Ac assigned to pt's SHAW case - pending number [id number] Addendum entered by Gina Daniel 07/10/22 15:03: provided this worker with completed SHAW application. SW faxed to S. Original Note: Social Work Followed up with on scheduling therapy training and discharge planning. expressed her dtr recently admitted to the hospital and having some additional medical needs, thus leaving her exhausted. Provided emotional support. Validated feelings and empathized with caring for dtr and pt. stated she is aware that pt has no insight and everything [this worker] said last week in our meeting was so good, and true, and none of it phased him. He would urinated all over at home and would have no clue. It's just a lot. SW asked if can care for pt at home. stated I know Don will be mad at me, but I really can't. SW advised to complete Medicaid application, keep the list of requested documents from SHAW to begin gathering, and choose several SNFs to this worker to refer. is okay with staying in [facility] because she works in [employer]. Pt is unable to pay money up front and SW will notify SNFs. Encouraged to contact this worker with any questions, and will await completed SHAW application. appreciative. SW to continue to follow. MAXIM Lopez
[2022-07-10 11:25] LABS: Bedside Glucose 265 mg/dL (74-106)
[2022-07-10 12:24] VITALS: BP 109/63; PULSE 88; RESP 16; TEMP 36.8
[2022-07-10] MEDS: Sodium Chloride 0.65% 1 SPRAY SPRAY.BTL 2 SPRAY NASAL ×2 (13:43→22:03)
[2022-07-10] MEDS: Ipratropium Bromide 0.06% NASAL SPRAY 2 SPRAY NASAL (17:01)
[2022-07-10] MEDS: Tamsulosin HCl 0.4 MG Capsule PO (17:01)
[2022-07-10 17:05] LABS: Bedside Glucose 173 mg/dL (74-106)
[2022-07-10 17:09] VITALS: BP 114/63; PULSE 91
[2022-07-10] MEDS: oxyCODONE 5 MG Tablet PO (20:48)
[2022-07-10 21:40] LABS: Bedside Glucose 213 mg/dL (74-106)
[2022-07-10 22:00] VITALS: PULSE 97; RESP 16; O2SAT 92
[2022-07-10] MEDS: Zolpidem Tartrate 5 MG Tablet PO (22:02)
[2022-07-10] MEDS: Atorvastatin Calcium 10 MG Tablet PO (22:02)
[2022-07-11] MEDS: Sodium Chloride 0.65% 1 SPRAY SPRAY.BTL 2 SPRAY NASAL ×3 (05:28→21:06)
[2022-07-11] MEDS: Ipratropium Bromide 0.06% NASAL SPRAY 2 SPRAY NASAL ×2 (05:28→17:14)
[2022-07-11] MEDS: Glucerna Shake 120 ML LIQUID PO ×4 (05:28→21:04)
[2022-07-11] MEDS: Arthritis Pain Compound 60 CLICK TUBE TOPICAL ×3 (05:28→21:06)
[2022-07-11] MEDS: buPROPion (XL) 150 MG TABLET.XL PO (05:29)
[2022-07-11] MEDS: Venlafaxine HCl 75 MG Tablet 150 MG PO (05:29)
[2022-07-11] MEDS: Pantoprazole Sodium 40 MG Tablet PO (05:29)
[2022-07-11] MEDS: Senna/Docusate Sodium 1 Tablet PO ×2 (05:29→17:15)
[2022-07-11] MEDS: Acetaminophen 500 MG Tablet 1000 MG PO ×3 (05:29→21:05)
[2022-07-11] MEDS: oxyCODONE 5 MG Tablet PO ×2 (05:36→11:48)
[2022-07-11] MEDS: Menthol/Lanolin/Calamine/Znox 113 GM Tube 1 APPLIC TOPICAL (05:40)
[2022-07-11] MEDS: Nystatin Powder 15gm Bottle 1 APPLIC TOPICAL ×2 (05:40→17:14)
[2022-07-11 06:37] LABS: Bedside Glucose 161 mg/dL (74-106)
[2022-07-11 08:02] VITALS: BP 124/73; PULSE 107
[2022-07-11] MEDS: Carvedilol 6.25 MG Tablet PO ×2 (08:04→17:12)
[2022-07-11] MEDS: Folic Acid 1 MG Tablet PO (08:04)
[2022-07-11] MEDS: Juven (unflavored) Packet 1 PACKET PO ×2 (08:04→17:13)
[2022-07-11] MEDS: Clopidogrel Bisulfate 75 MG Tablet PO (08:05)
[2022-07-11] MEDS: Potassium Chloride Oral Tablet 20 MEQ PO (08:05)
[2022-07-11] MEDS: LINAGLIPTIN 5 MG TABLET PO (08:06)
[2022-07-11 08:45] VITALS: PULSE 101; RESP 16; O2SAT 93
[2022-07-11 11:20] LABS: Bedside Glucose 210 mg/dL (74-106)
[2022-07-11 16:00] VITALS: BP 134/75; PULSE 98; RESP 18; TEMP 37.6; O2SAT 93
[2022-07-11 17:05] LABS: Bedside Glucose 182 mg/dL (74-106)
[2022-07-11] MEDS: Tamsulosin HCl 0.4 MG Capsule PO (17:14)
[2022-07-11] MEDS: Zolpidem Tartrate 5 MG Tablet PO (21:04)
[2022-07-11] MEDS: Atorvastatin Calcium 10 MG Tablet PO (21:05)
[2022-07-11 21:35] LABS: Bedside Glucose 225 mg/dL (74-106)
[2022-07-12] MEDS: Glucerna Shake 120 ML LIQUID PO ×4 (05:48→20:58)
[2022-07-12] MEDS: Venlafaxine HCl 75 MG Tablet 150 MG PO (05:49)
[2022-07-12] MEDS: Pantoprazole Sodium 40 MG Tablet PO (05:49)
[2022-07-12] MEDS: Acetaminophen 500 MG Tablet 1000 MG PO ×3 (05:49→20:55)
[2022-07-12] MEDS: Senna/Docusate Sodium 1 Tablet PO ×2 (05:49→17:21)
[2022-07-12] MEDS: Arthritis Pain Compound 60 CLICK TUBE TOPICAL ×3 (05:49→20:54)
[2022-07-12] MEDS: Menthol/Lanolin/Calamine/Znox 113 GM Tube 1 APPLIC TOPICAL ×2 (05:55→17:24)
[2022-07-12] MEDS: Nystatin Powder 15gm Bottle 1 APPLIC TOPICAL ×2 (05:56→17:23)
[2022-07-12 06:00] VITALS: BP 109/82; BP 129/81; BP 135/72; PULSE 100; PULSE 113; PULSE 98
[2022-07-12] MEDS: buPROPion (XL) 150 MG TABLET.XL PO (06:03)
[2022-07-12] MEDS: oxyCODONE 5 MG Tablet PO (06:03)
[2022-07-12 06:51] LABS: Bedside Glucose 184 mg/dL (74-106)
[2022-07-12] MEDS: Juven (unflavored) Packet 1 PACKET PO ×2 (07:55→17:21)
[2022-07-12] MEDS: Clopidogrel Bisulfate 75 MG Tablet PO (07:55)
[2022-07-12] MEDS: Carvedilol 6.25 MG Tablet PO ×2 (07:55→17:20)
[2022-07-12] MEDS: Potassium Chloride Oral Tablet 20 MEQ PO (07:55)
[2022-07-12] MEDS: LINAGLIPTIN 5 MG TABLET PO (07:55)
[2022-07-12] MEDS: Folic Acid 1 MG Tablet PO (07:55)
[2022-07-12 07:58] VITALS: BP 137/79; PULSE 100
--- NOTE | 2022-07-12 10:35 | MDS.RN ---
Information for the mds was obtained from review of the clinical record, interview of resident, staff, and direct observation of resident's care.
[2022-07-12 11:30] LABS: Bedside Glucose 200 mg/dL (74-106)
[2022-07-12 13:15] VITALS: BP 132/75; PULSE 97; RESP 16; TEMP 36.5; O2SAT 94
[2022-07-12] MEDS: Sodium Chloride 0.65% 1 SPRAY SPRAY.BTL 2 SPRAY NASAL ×2 (14:53→20:55)
[2022-07-12 16:45] LABS: Bedside Glucose 216 mg/dL (74-106)
[2022-07-12] MEDS: Ipratropium Bromide 0.06% NASAL SPRAY 2 SPRAY NASAL (17:20)
[2022-07-12] MEDS: Tamsulosin HCl 0.4 MG Capsule PO (17:21)
[2022-07-12 17:25] VITALS: BP 145/68; PULSE 95
--- NOTE | 2022-07-12 20:14 | PCA ---
Addendum entered by Clyde Singleton 07/12/22 22:35: Patient allowed SUPERINTENDENT BOARD MILL Lis to change brief and per care was provided Original Note: This SUPERINTENDENT BOARD MILL went to assist patient with the urinal and noticed that their brief was wet. SUPERINTENDENT BOARD MILL made patient aware of the wet brief and asked to help them change it. Patient responded i don't really see any need to change it SUPERINTENDENT BOARD MILL educated patient on the importances of good hygiene and not sitting in wet clothes to prevent breakdown of skin.
[2022-07-12] MEDS: Zolpidem Tartrate 5 MG Tablet PO (20:53)
[2022-07-12] MEDS: Atorvastatin Calcium 10 MG Tablet PO (20:55)
[2022-07-12 23:15] LABS: Bedside Glucose 197 mg/dL (74-106)
[2022-07-13] MEDS: Methotrexate 2.5 MG Tablet 17.5 MG PO (05:49)
[2022-07-13] MEDS: Venlafaxine HCl 75 MG Tablet 150 MG PO (05:50)
[2022-07-13] MEDS: Acetaminophen 500 MG Tablet 1000 MG PO ×3 (05:50→23:18)
[2022-07-13] MEDS: Pantoprazole Sodium 40 MG Tablet PO (05:50)
[2022-07-13] MEDS: Glucerna Shake 120 ML LIQUID PO ×4 (05:50→23:15)
[2022-07-13] MEDS: Senna/Docusate Sodium 1 Tablet PO ×2 (05:51→17:39)
[2022-07-13] MEDS: Menthol/Lanolin/Calamine/Znox 113 GM Tube 1 APPLIC TOPICAL ×2 (05:51→17:42)
[2022-07-13] MEDS: buPROPion (XL) 150 MG TABLET.XL PO (05:51)
[2022-07-13] MEDS: Sodium Chloride 0.65% 1 SPRAY SPRAY.BTL 2 SPRAY NASAL ×3 (05:52→23:17)
[2022-07-13] MEDS: Ipratropium Bromide 0.06% NASAL SPRAY 2 SPRAY NASAL ×2 (05:54→17:38)
[2022-07-13] MEDS: Nystatin Powder 15gm Bottle 1 APPLIC TOPICAL ×2 (05:56→17:43)
[2022-07-13] MEDS: Arthritis Pain Compound 60 CLICK TUBE TOPICAL ×3 (05:57→23:16)
[2022-07-13 06:31] LABS: Bedside Glucose 172 mg/dL (74-106)
[2022-07-13] MEDS: Folic Acid 1 MG Tablet PO (08:23)
[2022-07-13] MEDS: Clopidogrel Bisulfate 75 MG Tablet PO (08:23)
[2022-07-13] MEDS: Carvedilol 6.25 MG Tablet PO ×2 (08:23→17:38)
[2022-07-13] MEDS: Potassium Chloride Oral Tablet 20 MEQ PO (08:23)
[2022-07-13] MEDS: Juven (unflavored) Packet 1 PACKET PO ×2 (08:23→17:38)
[2022-07-13] MEDS: LINAGLIPTIN 5 MG TABLET PO (08:23)
[2022-07-13 08:31] VITALS: BP 129/75; PULSE 97
[2022-07-13 11:10] LABS: Bedside Glucose 160 mg/dL (74-106)
[2022-07-13] MEDS: oxyCODONE 5 MG Tablet PO ×3 (12:54→23:19)
[2022-07-13 16:00] VITALS: BP 128/74; PULSE 83; RESP 16; TEMP 36.3; O2SAT 96
[2022-07-13] MEDS: Tamsulosin HCl 0.4 MG Capsule PO (17:38)
[2022-07-13 17:50] LABS: Bedside Glucose 140 mg/dL (74-106)
[2022-07-13 22:00] VITALS: PULSE 93; RESP 16; O2SAT 97
[2022-07-13 22:01] LABS: Bedside Glucose 285 mg/dL (74-106)
[2022-07-13] MEDS: Zolpidem Tartrate 5 MG Tablet PO (23:16)
[2022-07-13] MEDS: Atorvastatin Calcium 10 MG Tablet PO (23:17)
[2022-07-14] MEDS: Glucerna Shake 120 ML LIQUID PO ×4 (05:28→22:35)
[2022-07-14] MEDS: Sodium Chloride 0.65% 1 SPRAY SPRAY.BTL 2 SPRAY NASAL ×3 (05:28→22:38)
[2022-07-14] MEDS: Ipratropium Bromide 0.06% NASAL SPRAY 2 SPRAY NASAL ×2 (05:28→17:32)
[2022-07-14] MEDS: Arthritis Pain Compound 60 CLICK TUBE TOPICAL ×3 (05:28→22:36)
[2022-07-14] MEDS: Senna/Docusate Sodium 1 Tablet PO ×2 (05:29→17:32)
[2022-07-14] MEDS: Nystatin Powder 15gm Bottle 1 APPLIC TOPICAL ×2 (05:29→17:33)
[2022-07-14] MEDS: Pantoprazole Sodium 40 MG Tablet PO (05:29)
[2022-07-14] MEDS: Venlafaxine HCl 75 MG Tablet 150 MG PO (05:29)
[2022-07-14] MEDS: Acetaminophen 500 MG Tablet 1000 MG PO ×3 (05:29→22:38)
[2022-07-14] MEDS: buPROPion (XL) 150 MG TABLET.XL PO (05:29)
[2022-07-14] MEDS: Menthol/Lanolin/Calamine/Znox 113 GM Tube 1 APPLIC TOPICAL ×2 (05:35→17:33)
--- NOTE | 2022-07-14 05:36 | NURSING ---
Patient had a bloody nose this morning, lasting only a few minutes. No further issues. Will continue to monitor.
[2022-07-14 06:35] LABS: Bedside Glucose 195 mg/dL (74-106)
[2022-07-14] MEDS: Carvedilol 6.25 MG Tablet PO ×2 (08:37→17:33)
[2022-07-14] MEDS: Folic Acid 1 MG Tablet PO (08:37)
[2022-07-14] MEDS: LINAGLIPTIN 5 MG TABLET PO (08:37)
[2022-07-14] MEDS: Juven (unflavored) Packet 1 PACKET PO ×2 (08:37→17:33)
[2022-07-14] MEDS: Clopidogrel Bisulfate 75 MG Tablet PO (08:37)
[2022-07-14] MEDS: Potassium Chloride Oral Tablet 20 MEQ PO (08:37)
[2022-07-14 08:38] VITALS: BP 115/63; PULSE 96
[2022-07-14 11:56] LABS: Bedside Glucose 273 mg/dL (74-106)
[2022-07-14] MEDS: oxyCODONE 5 MG Tablet PO (13:58)
[2022-07-14 15:36] VITALS: BP 110/56; PULSE 84; RESP 16; TEMP 36.1; O2SAT 95
[2022-07-14 16:30] LABS: Bedside Glucose 209 mg/dL (74-106)
[2022-07-14] MEDS: Tamsulosin HCl 0.4 MG Capsule PO (17:32)
[2022-07-14] MEDS: Zolpidem Tartrate 5 MG Tablet PO (22:36)
[2022-07-14] MEDS: Atorvastatin Calcium 10 MG Tablet PO (22:38)
[2022-07-14 22:43] VITALS: PULSE 88; RESP 16; O2SAT 97
[2022-07-14 22:46] LABS: Bedside Glucose 233 mg/dL (74-106)
[2022-07-15] MEDS: Glucerna Shake 120 ML LIQUID PO ×4 (06:44→21:56)
[2022-07-15] MEDS: Sodium Chloride 0.65% 1 SPRAY SPRAY.BTL 2 SPRAY NASAL ×3 (06:44→21:58)
[2022-07-15 06:46] LABS: Bedside Glucose 200 mg/dL (74-106)
[2022-07-15 06:47] LABS: Absolute Lymphocyte Count 0.77 X10^3/uL (0.83-4.51); Absolute Neutrophil Count 3.1 X10^3/uL (2.0-7.7); Basophil# 0.08 X10^3/uL; Basophil% 1.8 % (0-1); Hematocrit 39.1 % (40-54); Hemoglobin 12.8 g/dL (13.0-16.5); Lymphocyte # 0.77 X10^3/ul (0.83-4.51); Lymphocyte % 16.9 % (19-41); Mean Corp Hgb Conc 32.7 g/dL (32-36); Mean Corpuscular Hgb 33.2 pg (27.0-32.0); Mean Corpuscular Volume 101.6 fL (80-94); Mean Platelet Vol. 9.3 fl (6.2-12.0); Monocyte# 0.45 X10^3/uL; Monocyte% 9.9 % (0-10); NRBC Flagged by Analyzer 0 % (0-5); Neutrophil # 3.07 X10^3/uL (2.7-7.7); Neutrophil % 67.2 % (47-70); Platelet Count 214 K/mm3 (150-450); RBC Distribution Width CV 14.5 % (11.6-14.6); RBC Distribution Width SD 53.1 fl (35.1-43.9); Red Blood Count 3.85 M/mm3 (4.6-6.2); White Blood Count 4.6 K/mm3 (4.4-11.0)
[2022-07-15] MEDS: buPROPion (XL) 150 MG TABLET.XL PO (06:47)
[2022-07-15] MEDS: Venlafaxine HCl 75 MG Tablet 150 MG PO (06:47)
[2022-07-15] MEDS: Senna/Docusate Sodium 1 Tablet PO ×2 (06:47→17:48)
[2022-07-15] MEDS: Pantoprazole Sodium 40 MG Tablet PO (06:47)
[2022-07-15] MEDS: Nystatin Powder 15gm Bottle 1 APPLIC TOPICAL ×2 (06:47→17:52)
[2022-07-15] MEDS: Acetaminophen 500 MG Tablet 1000 MG PO ×3 (06:47→21:57)
[2022-07-15] MEDS: Arthritis Pain Compound 60 CLICK TUBE TOPICAL ×3 (06:48→21:59)
[2022-07-15] MEDS: Menthol/Lanolin/Calamine/Znox 113 GM Tube 1 APPLIC TOPICAL ×2 (06:48→17:53)
[2022-07-15] MEDS: Ipratropium Bromide 0.06% NASAL SPRAY 2 SPRAY NASAL ×2 (06:50→17:48)
[2022-07-15 07:13] LABS: Anion Gap 6 (5-15); BUN 32 mg/dL (7-18); BUN/Creat Ratio 29.1 RATIO (10-20); Calcium,Total 9.4 mg/dL (8.5-10.1); Chloride 105 mmol/L (98-107); EST Glomerular Filtration Rate 70 mL/min (>60); Est Glom Filt Rate - Afr Amer 85 mL/min (>60); Estimated Creatinine Clearance 62.68 ml/min; Glucose 203 mg/dL (74-106); Potassium 4.4 mmol/L (3.5-5.1); Sodium Level 139 mmol/L (136-145)
[2022-07-15] MEDS: Carvedilol 6.25 MG Tablet PO ×2 (08:26→17:47)
[2022-07-15] MEDS: Folic Acid 1 MG Tablet PO (08:27)
[2022-07-15] MEDS: Potassium Chloride Oral Tablet 20 MEQ PO (08:27)
[2022-07-15] MEDS: Juven (unflavored) Packet 1 PACKET PO ×2 (08:27→17:47)
[2022-07-15] MEDS: Clopidogrel Bisulfate 75 MG Tablet PO (08:27)
[2022-07-15] MEDS: LINAGLIPTIN 5 MG TABLET PO (08:28)
[2022-07-15 12:15] LABS: Bedside Glucose 180 mg/dL (74-106)
[2022-07-15 16:00] VITALS: BP 133/67; PULSE 93; RESP 16; TEMP 36.6; O2SAT 95
[2022-07-15] MEDS: Tamsulosin HCl 0.4 MG Capsule PO (17:47)
[2022-07-15 18:25] LABS: Bedside Glucose 237 mg/dL (74-106)
[2022-07-15 21:46] LABS: Bedside Glucose 263 mg/dL (74-106)
[2022-07-15] MEDS: Zolpidem Tartrate 5 MG Tablet PO (21:56)
[2022-07-15] MEDS: Atorvastatin Calcium 10 MG Tablet PO (21:57)
[2022-07-16] MEDS: Glucerna Shake 120 ML LIQUID PO ×4 (05:20→21:43)
[2022-07-16] MEDS: Ipratropium Bromide 0.06% NASAL SPRAY 2 SPRAY NASAL ×2 (05:20→17:30)
[2022-07-16] MEDS: Sodium Chloride 0.65% 1 SPRAY SPRAY.BTL 2 SPRAY NASAL ×3 (05:20→21:43)
[2022-07-16] MEDS: Arthritis Pain Compound 60 CLICK TUBE TOPICAL ×3 (05:20→21:43)
[2022-07-16] MEDS: Pantoprazole Sodium 40 MG Tablet PO (05:21)
[2022-07-16] MEDS: Acetaminophen 500 MG Tablet 1000 MG PO ×3 (05:21→21:44)
[2022-07-16] MEDS: Senna/Docusate Sodium 1 Tablet PO ×2 (05:21→17:30)
[2022-07-16] MEDS: Venlafaxine HCl 75 MG Tablet 150 MG PO (05:21)
[2022-07-16] MEDS: buPROPion (XL) 150 MG TABLET.XL PO (05:21)
[2022-07-16] MEDS: Nystatin Powder 15gm Bottle 1 APPLIC TOPICAL ×2 (05:33→17:30)
[2022-07-16] MEDS: Menthol/Lanolin/Calamine/Znox 113 GM Tube 1 APPLIC TOPICAL ×2 (05:33→17:30)
[2022-07-16 06:55] LABS: Bedside Glucose 252 mg/dL (74-106)
[2022-07-16] MEDS: Folic Acid 1 MG Tablet PO (08:41)
[2022-07-16] MEDS: LINAGLIPTIN 5 MG TABLET PO (08:41)
[2022-07-16] MEDS: Potassium Chloride Oral Tablet 20 MEQ PO (08:41)
[2022-07-16] MEDS: Juven (unflavored) Packet 1 PACKET PO ×2 (08:41→17:30)
[2022-07-16] MEDS: Carvedilol 6.25 MG Tablet PO ×2 (08:42→17:30)
[2022-07-16] MEDS: Clopidogrel Bisulfate 75 MG Tablet PO (08:42)
[2022-07-16 08:47] VITALS: BP 145/86; PULSE 97
[2022-07-16 11:25] LABS: Bedside Glucose 260 mg/dL (74-106)
[2022-07-16] MEDS: Insulin Lispro 100 UNIT/ML INSULN.PEN 7 UNIT SC ×2 (11:36→17:27)
[2022-07-16 15:50] VITALS: BP 135/75; PULSE 92; RESP 18; TEMP 36.4; O2SAT 93
[2022-07-16 16:35] LABS: Bedside Glucose 229 mg/dL (74-106)
[2022-07-16] MEDS: Tamsulosin HCl 0.4 MG Capsule PO (17:30)
[2022-07-16] MEDS: Atorvastatin Calcium 10 MG Tablet PO (21:45)
[2022-07-16] MEDS: Zolpidem Tartrate 5 MG Tablet PO (21:45)
[2022-07-16 21:46] LABS: Bedside Glucose 222 mg/dL (74-106)
[2022-07-16 22:15] VITALS: PULSE 88; RESP 16; O2SAT 93
[2022-07-17] MEDS: Sodium Chloride 0.65% 1 SPRAY SPRAY.BTL 2 SPRAY NASAL ×3 (05:55→22:40)
[2022-07-17] MEDS: Acetaminophen 500 MG Tablet 1000 MG PO ×3 (05:56→22:40)
[2022-07-17] MEDS: Glucerna Shake 120 ML LIQUID PO ×4 (05:56→22:39)
[2022-07-17] MEDS: Pantoprazole Sodium 40 MG Tablet PO (05:57)
[2022-07-17] MEDS: Senna/Docusate Sodium 1 Tablet PO ×2 (05:57→17:29)
[2022-07-17] MEDS: Ipratropium Bromide 0.06% NASAL SPRAY 2 SPRAY NASAL ×2 (05:57→17:29)
[2022-07-17] MEDS: Arthritis Pain Compound 60 CLICK TUBE TOPICAL ×3 (05:57→22:39)
[2022-07-17] MEDS: Venlafaxine HCl 75 MG Tablet 150 MG PO (05:57)
[2022-07-17] MEDS: buPROPion (XL) 150 MG TABLET.XL PO (05:57)
[2022-07-17] MEDS: Nystatin Powder 15gm Bottle 1 APPLIC TOPICAL ×2 (06:00→17:30)
[2022-07-17] MEDS: Menthol/Lanolin/Calamine/Znox 113 GM Tube 1 APPLIC TOPICAL ×2 (06:01→17:30)
[2022-07-17 06:46] LABS: Bedside Glucose 187 mg/dL (74-106)
[2022-07-17] MEDS: Insulin Lispro 100 UNIT/ML INSULN.PEN 7 UNIT SC ×3 (08:14→17:40)
[2022-07-17] MEDS: Carvedilol 6.25 MG Tablet PO ×2 (08:15→17:30)
[2022-07-17] MEDS: Folic Acid 1 MG Tablet PO (08:15)
[2022-07-17] MEDS: Juven (unflavored) Packet 1 PACKET PO ×2 (08:15→17:29)
[2022-07-17] MEDS: Potassium Chloride Oral Tablet 20 MEQ PO (08:15)
[2022-07-17] MEDS: LINAGLIPTIN 5 MG TABLET PO (08:15)
[2022-07-17] MEDS: Clopidogrel Bisulfate 75 MG Tablet PO (08:15)
[2022-07-17 08:23] VITALS: BP 131/75; PULSE 97
[2022-07-17 09:41] VITALS: PULSE 87
[2022-07-17 11:35] LABS: Bedside Glucose 254 mg/dL (74-106)
[2022-07-17] MEDS: oxyCODONE 5 MG Tablet PO (14:35)
[2022-07-17 15:03] VITALS: BP 136/79; PULSE 92; RESP 18; TEMP 36.4; O2SAT 93
[2022-07-17 16:35] LABS: Bedside Glucose 194 mg/dL (74-106)
[2022-07-17] MEDS: Tamsulosin HCl 0.4 MG Capsule PO (17:29)
[2022-07-17 17:43] VITALS: BP 121/73; PULSE 86
[2022-07-17] MEDS: Atorvastatin Calcium 10 MG Tablet PO (22:41)
[2022-07-17] MEDS: Zolpidem Tartrate 5 MG Tablet PO (22:46)
[2022-07-17 23:30] LABS: Bedside Glucose 222 mg/dL (74-106)
[2022-07-18] MEDS: oxyCODONE 5 MG Tablet PO ×2 (04:15→21:20)
[2022-07-18] MEDS: Venlafaxine HCl 75 MG Tablet 150 MG PO (04:16)
[2022-07-18] MEDS: Menthol/Lanolin/Calamine/Znox 113 GM Tube 1 APPLIC TOPICAL ×2 (04:16→17:49)
[2022-07-18] MEDS: Acetaminophen 500 MG Tablet 1000 MG PO ×3 (04:17→21:22)
[2022-07-18] MEDS: Pantoprazole Sodium 40 MG Tablet PO (04:17)
[2022-07-18] MEDS: Senna/Docusate Sodium 1 Tablet PO ×2 (04:18→17:51)
[2022-07-18] MEDS: buPROPion (XL) 150 MG TABLET.XL PO (04:18)
[2022-07-18] MEDS: Nystatin Powder 15gm Bottle 1 APPLIC TOPICAL ×2 (04:19→17:50)
[2022-07-18] MEDS: Arthritis Pain Compound 60 CLICK TUBE TOPICAL ×3 (04:19→21:22)
[2022-07-18] MEDS: Ipratropium Bromide 0.06% NASAL SPRAY 2 SPRAY NASAL ×2 (04:20→17:48)
[2022-07-18 06:51] LABS: Bedside Glucose 225 mg/dL (74-106)
[2022-07-18] MEDS: Juven (unflavored) Packet 1 PACKET PO ×2 (08:11→17:48)
[2022-07-18] MEDS: Folic Acid 1 MG Tablet PO (08:11)
[2022-07-18] MEDS: Carvedilol 6.25 MG Tablet PO ×2 (08:12→17:49)
[2022-07-18] MEDS: LINAGLIPTIN 5 MG TABLET PO (08:12)
[2022-07-18] MEDS: Potassium Chloride Oral Tablet 20 MEQ PO (08:12)
[2022-07-18] MEDS: Clopidogrel Bisulfate 75 MG Tablet PO (08:12)
[2022-07-18] MEDS: Insulin Lispro 100 UNIT/ML INSULN.PEN 10 UNIT SC ×3 (09:02→17:45)
[2022-07-18 11:40] LABS: Bedside Glucose 198 mg/dL (74-106)
[2022-07-18] MEDS: Glucerna Shake 120 ML LIQUID PO ×3 (11:57→21:21)
[2022-07-18] MEDS: Sodium Chloride 0.65% 1 SPRAY SPRAY.BTL 2 SPRAY NASAL ×2 (13:41→21:23)
--- NOTE | 2022-07-18 14:23 | WOUNDNOTE ---
wound photo: left foot
[2022-07-18 16:00] VITALS: BP 134/74; PULSE 90; RESP 14; TEMP 36.5; O2SAT 97
--- NOTE | 2022-07-18 16:26 | CASEMGMT ---
Social Work Received call from stating she was able to tour two SNFs today and requesting referrals - [facility] and [facility]. SW appreciative and referrals sent via CarePort. is working on gathering documents for Medicaid. MAXIM LopezW
[2022-07-18 17:40] LABS: Bedside Glucose 312 mg/dL (74-106)
[2022-07-18] MEDS: Tamsulosin HCl 0.4 MG Capsule PO (17:49)
[2022-07-18] MEDS: Zolpidem Tartrate 5 MG Tablet PO (21:17)
[2022-07-18 21:20] VITALS: PULSE 90; RESP 18; O2SAT 97
[2022-07-18] MEDS: Atorvastatin Calcium 10 MG Tablet PO (21:28)
[2022-07-18 21:55] LABS: Bedside Glucose 189 mg/dL (74-106)
[2022-07-19] MEDS: Sodium Chloride 0.65% 1 SPRAY SPRAY.BTL 2 SPRAY NASAL ×3 (05:19→21:28)
[2022-07-19] MEDS: Arthritis Pain Compound 60 CLICK TUBE TOPICAL ×3 (05:20→21:29)
[2022-07-19] MEDS: Ipratropium Bromide 0.06% NASAL SPRAY 2 SPRAY NASAL ×2 (05:20→18:04)
[2022-07-19] MEDS: Menthol/Lanolin/Calamine/Znox 113 GM Tube 1 APPLIC TOPICAL ×2 (05:22→18:11)
[2022-07-19] MEDS: Glucerna Shake 120 ML LIQUID PO ×4 (05:22→21:27)
[2022-07-19] MEDS: buPROPion (XL) 150 MG TABLET.XL PO (05:24)
[2022-07-19] MEDS: Acetaminophen 500 MG Tablet 1000 MG PO ×3 (05:24→21:28)
[2022-07-19] MEDS: Venlafaxine HCl 75 MG Tablet 150 MG PO (05:24)
[2022-07-19] MEDS: Nystatin Powder 15gm Bottle 1 APPLIC TOPICAL ×2 (05:24→18:10)
[2022-07-19] MEDS: Senna/Docusate Sodium 1 Tablet PO ×2 (05:24→18:05)
[2022-07-19] MEDS: Pantoprazole Sodium 40 MG Tablet PO (05:24)
[2022-07-19 06:50] LABS: Bedside Glucose 195 mg/dL (74-106)
[2022-07-19] MEDS: Juven (unflavored) Packet 1 PACKET PO ×2 (08:30→18:05)
[2022-07-19] MEDS: Insulin Lispro 100 UNIT/ML INSULN.PEN 10 UNIT SC ×3 (08:30→18:08)
[2022-07-19] MEDS: Folic Acid 1 MG Tablet PO (08:32)
[2022-07-19] MEDS: Clopidogrel Bisulfate 75 MG Tablet PO (08:33)
[2022-07-19] MEDS: Potassium Chloride Oral Tablet 20 MEQ PO (08:34)
[2022-07-19] MEDS: LINAGLIPTIN 5 MG TABLET PO (08:34)
[2022-07-19] MEDS: Carvedilol 6.25 MG Tablet PO ×2 (08:34→18:05)
[2022-07-19 11:10] LABS: Bedside Glucose 305 mg/dL (74-106)
[2022-07-19 14:01] VITALS: BP 145/85; PULSE 95; RESP 16; TEMP 36.1; O2SAT 97
[2022-07-19] MEDS: oxyCODONE 5 MG Tablet PO ×2 (14:57→21:27)
--- NOTE | 2022-07-19 17:00 | CASEMGMT ---
Addendum entered by Gina Daniel 07/19/22 17:04: BIMS () and PHQ-9 () completed for MDS assessment. Original Note: Social Work [facility] and [facility] can accept pt. [facility] requesting for pt to DC 2/3 r/t bed availability if they are FOC. SW spoke with to update on above. states [facility] is FOC and is agreeable to DC 2/3. SW spoke with pt about DC plans. Pt is agreeable to SNF and DC date. Updated [facility] and [facility]. SW scheduled cot transport through [facility] for 1100. PASRR Completed. Plan: DC 2/3 to [facility], intermediate, Medicaid Pending MAXIM LopezW
[2022-07-19 17:56] LABS: Bedside Glucose 168 mg/dL (74-106)
[2022-07-19] MEDS: Tamsulosin HCl 0.4 MG Capsule PO (18:05)
--- NOTE | 2022-07-19 20:12 | DS.PCM_ITS ---
Providers Date of Admission: 06/30/22 Primary Care Physician: Dr. 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, with necrosis of bone: Status: Acute Code(s): E08.621 - Diabetes mellitus due to underlying condition with foot ulcer; L97.504 - Non-pressure chronic ulcer of other part of unspecified foot with necrosis of bone (3) Falls: Status: Acute Code(s): W19.XXXA - Unspecified fall, initial encounter (4) Failure to thrive: Status: Acute (5) LV (left ventricular) mural thrombus: Status: Inactive Code(s): I51.3 - Intracardiac thrombosis, not elsewhere classified (6) Coronary artery disease: Status: Acute Code(s): I25.10 - Atherosclerotic heart disease of [place] coronary artery without angina pectoris (7) Rheumatoid arthritis: Status: Acute Code(s): M06.9 - Rheumatoid arthritis, unspecified (8) Edema: Status: Acute Code(s): R60.9 - Edema, unspecified (9) Diabetes mellitus: Status: Acute Code(s): E11.9 - Type 2 diabetes mellitus without complications (10) Hypokalemia: Status: Acute Code(s): E87.6 - Hypokalemia (11) Depression: Status: Acute Code(s): F32.A - Depression, unspecified Plan 72 year old male with below past medical history admitted to left second toe diabetic foot ulcer, transferred to TCU with debility, here for rehabilitation, strengthening, prior to discharge home with . * Debility - PT/OT. * Dysphagia - ST. * Pain - Arthritis 2 clicks topical tid, Oxycodone 5mg q4h prn. * Bowel - senna/colace 2 tablets bid, Dulcolax 10mg pr x 1 prn, MOM 30ml po x 1 prn. * Adult immunization - Administer pneumonia vaccine, covid19 vaccine, flu vaccin e as appropriate. * DVT prophylaxis - Not necessary, already on Eliquis. * LV thrombus - Eliquis 5mg bid. * Hyperlipidemia - Atorvastatin 10mg qhs. * Depression - Wellbutrin 150mg daily, Venlafaxine 150mg daily, stable chronic assisted use, GDR not recommended. * Hypertension - Coreg 6.25mg bid, Lisinopril 5mg daily. * Coronary artery disease - Coreg 6.25mg bid, Lisinopril 5mg daily, Plavix 75mg daily, Eliquis 5mg bid. * Rheumatoid arthritis - MTX 17.5mg per week, Folic acid 1mg daily. * Diabetes Mellitus II - Metformin 500mg bidcm, Glimepiride 4mg am, 2mg pm, Trajdenta 5mg daily, Glargine 22 units daily. * Nutrition - Glucerna shake 120ml 4x/day, Singh 1 packet bid. * Allergic rhinitis - Atrovent 2 sprays nasal bid, Sodium chloride 2 spray nasal tid. * Skin irritation - Calmoseptine topical bid. * Tinea Corporis - Nystatin topical bid. * Hypokalemia - KCL 20meq daily. * BPH - Tamsulosin 0.4mg daily. * Insomnia - Zolpidem 5mg qhs, stable chronic assisted use, GDR not recommended. Medications at Discharge Home Medications arginine 7 gram-glutam 7 gram-CaHMB 1.5 [id number]-min oral pwd pkt (Singh (with collagen)) 1 packet PO BIDCM Supplement 06/30/22 atorvastatin 10 mg tablet 10 mg PO QHS Cholesterol 06/30/22 bisacodyl 10 mg rectal suppository 10 mg MD .PRN X 1 PRN Constipation #0 ea 06/30/22 bupropion HCl 150 mg 24 hr tablet, extended release 150 mg PO DAILY Mood 06/30/22 carvedilol 6.25 mg tablet 6.25 mg PO BIDCM BP 06/30/22 clopidogrel 75 mg tablet 75 mg PO DAILY Blood Thinner 06/30/22 folic acid 1 mg tablet 1 mg PO BREAKFAST Supplement 06/30/22 ipratropium bromide 42 mcg (0.06 %) nasal spray 2 spray NASAL BID Check with primary doctor 06/30/22 linagliptin 5 mg tablet (Tradjenta) 5 mg PO DAILY Diabetes 06/30/22 menthol 0.44 %-zinc oxide 20.6 % topical ointment (Calmoseptine) 1 applic topical BID Skin 06/30/22 methotrexate sodium 2.5 mg tablet 17.5 mg PO FR Psoriasis 06/30/22 nystatin 100,000 unit/gram topical powder (Nyamyc) 1 applic topical BID Skin 06/30/22 potassium chloride 20 mEq tablet,extended release(part/cryst) (Klor-Con M) 20 meq PO DAILYCM Supplement 06/30/22 sennosides 8.6 mg-docusate sodium 50 mg tablet (Stool Softener-Stimulant Laxative) 1 tab PO BID Constipation 06/30/22 sodium chloride 0.65 % nasal spray aerosol (Deep Sea Nasal) 2 spray NASAL TID Congestion 06/30/22 tamsulosin 0.4 mg capsule 0.4 mg PO DAILY@1730 Retention 06/30/22 venlafaxine 75 mg tablet 150 mg PO DAILY Mood 06/30/22 acetaminophen 500 mg tablet 1,000 mg PO Q8 #0 tabs 07/19/22 insulin lispro 100 unit/mL subcutaneous pen (Humalog KwikPen (U-100) Insulin) 10 unit (0.1 mL) subcut TIDAC #0 mL 07/19/22 nutrition tx glu intol,lac-free,soy-fiber 0.06 gram-1.2 kcal/mL liquid (Glucerna 1.2 Mustapha) 120 ml PO 4X/DAY #0 mL 07/19/22 oxycodone 5 mg tablet 5 mg PO Q4H PRN PRN Pain Score 6-10 3 days #18 tabs 07/19/22 pantoprazole 40 mg tablet,delayed release 40 mg PO DAILY #0 tabs 07/19/22 zolpidem 5 mg tablet 5 mg PO QHS 3 days #3 tabs 07/19/22 Hospital Course Operations None Procedures None Summary of Care Provided Minutes Spent on Discharge: 35 Hospital Course: 72 year old male with below past medical history admitted to left second toe diabetic foot ulcer, transferred to TCU with debility, here for rehabilitation, strengthening, prior to discharge home with . Discharge to [facility] 07/20/2022, intermediate, Medicaid pending. Physical Exam Const alert General Appearance: cooperative HEENT normocephalic Eyes PERRL and EOMs intact bilaterally Neck supple, no JVD and no carotid bruits Resp normal respiratory effort, normal air movement and clear to auscultation bilaterally Cardio regular rate and regular rhythm GI normal to inspection, nondistended, normoactive bowel sounds, non-tender and non-distended Extremity normal capillary refill General Extremity: Negative for edema Skin no rashes or lesions noted General Skin Exam: no breakdown Psych affect normal Appearance: appropriate Weight / BMI Weight Weight: 82.645 kg Body Mass Index (BMI) 26.0 ABG / Lab / Microbiology Data Result Diagrams: 07/15/22 06:10 07/15/22 06:10 Laboratory: Laboratory Results - last 24 hr 07/18/22 21:37: POC Glucose 189 H 07/19/22 06:19: POC Glucose 195 H 07/19/22 10:48: POC Glucose 305 H 07/19/22 17:38: POC Glucose 168 H Microbiology: Microbiology 07/04/22 10:45 Nasal Secretion SARS-CoV-2 Antigen (Rapid) - Final 07/02/22 05:54 Nasal Secretion SARS-CoV-2 Antigen (Rapid) - Final D/C Instructions Discharge Diet: No restrictions Discharge Activity: Return to Normal Activity, May Shower and Use Walker Weight Bearing Status: Weight bearing as tolerated Call your doctor if you observe: Fever of 101 or Higher, Inability to urinate, Inability to have a bowel movement, Shortness of breath, Dizziness, Fainting spells, Swelling in the ankles, Chest pain and Uncontrolled pain Additional Instructions: Discharge to [facility] 07/20/2022, intermediate, Medicaid pending. Please Follow Up With: Hector Vasquez DO When: As scheduled. Meaningful Use Info Meaningful Use Diagnoses (Choose all that apply): None applicable Discharge Plan Admission Admit Date/Time: 06/30/22 16:20 Primary Reason for Your Visit: Debility. Attending Provider: Jerrod Medina Chi Primary Care Provider: Mckayla Silva Instructions Additional Instructions / Restrictions: Discharge to [facility] 07/20/2022, intermediate, Medicaid pending. Discharge Orders/Prescriptions Prescriptions: New acetaminophen 500 mg Tablet 1,000 mg PO Q8 Qty: 0 0RF zolpidem 5 mg Tablet 5 mg PO QHS 3 Days Qty: 3 0RF oxycodone 5 mg Tablet 5 mg PO Q4H PRN PRN (Reason: Pain Score 6-10) 3 Days Qty: 18 0RF Glucerna 1.2 Mustapha 0.06-1.2 gram-kcal/mL Liquid 120 ml PO 4X/DAY Qty: 0 0RF pantoprazole 40 mg Tablet,Delayed Release (Dr/Ec) 40 mg PO DAILY Qty: 0 0RF insulin lispro [Humalog KwikPen Insulin] 100 unit/mL Insulin Pen 10 unit subcut TIDAC Qty: 0 0RF Continued bisacodyl 10 mg Suppository 10 mg MD .PRN X 1 PRN (Reason: Constipation) Qty: 0 0RF carvedilol 6.25 mg tablet 6.25 mg PO BIDCM venlafaxine 75 mg tablet 150 mg PO DAILY atorvastatin 10 mg tablet 10 mg PO QHS sennosides-docusate sodium [Stool Softener-Stimulant Laxat] 8.6-50 mg tablet 1 tab PO BID clopidogrel 75 mg tablet 75 mg PO DAILY potassium chloride [Klor-Con M20] 20 mEq tablet,ER particles/crystals 20 meq PO DAILYCM methotrexate sodium 2.5 mg tablet 17.5 mg PO FR tamsulosin 0.4 mg capsule 0.4 mg PO DAILY@1730 folic acid 1 mg tablet 1 mg PO BREAKFAST nystatin [Nyamyc] 100,000 unit/gram powder 1 applic topical BID Protocol: *Topical Application Instructions APPLICATION INSTRUCTIONS: apply to affected area ipratropium bromide 42 mcg (0.06 %) spray,non-aerosol 2 spray NASAL BID Deep Sea Nasal 0.65 % aerosol,spray 2 spray NASAL TID bupropion HCl 150 mg tablet extended release 24 hr 150 mg PO DAILY menthol-zinc oxide [Calmoseptine] 0.44-20.6 % ointment 1 applic topical BID Protocol: *Topical Application Instructions APPLICATION INSTRUCTIONS: BILAT BUTTOCKS Tradjenta 5 mg tablet 5 mg PO DAILY Singh (with collagen) 7-7-1.5 gram powder in packet 1 packet PO BIDCM Discontinued magnesium hydroxide 400 mg/5 mL Suspension 30 ml PO .PRN X 1 PRN (Reason: Constipation) Qty: 0 0RF lidocaine HCl 4 % (40 mg/mL) Solution 50 ml topical X1 PRN (Reason: wound debridement ) Qty: 0 0RF Protocol: *Topical Application Instructions APPLICATION INSTRUCTIONS: for wound debridement for left second toe oxycodone 5 mg Tablet 5 mg PO Q4H PRN PRN (Reason: Pain Score 6-10) Qty: 0 0RF Arthritis Pain Compound 2 click topical TID metformin 500 mg tablet 500 mg PO BIDCM glimepiride 2 mg tablet 2 mg PO SUPPER glimepiride 4 mg tablet 4 mg PO BREAKFAST aspirin 81 mg tablet,chewable 81 mg PO BREAKFAST lisinopril 5 mg tablet 5 mg PO DAILY zolpidem 5 mg tablet 5 mg PO QHS Glucerna 1.2 Mustapha 0.06-1.2 gram-kcal/mL liquid 120 ml PO TIDCM Eliquis 5 mg tablet 5 mg PO BID insulin glargine-yfgn 100 unit/mL (3 mL) insulin pen 22 unit subcut 0700 Referrals / Follow Up: Mckayla Silva DO [Primary Care Provider] - Hector Vasquez DO [Med Staff - Director [employer]] - Disposition Disposition (needs filled in before D/C Order can be placed): NonSkilled NH/Intermed Care
[2022-07-19 20:19] VITALS: BP 115/67; PULSE 91; RESP 14; TEMP 36.7; O2SAT 95
--- NOTE | 2022-07-19 20:19 | TREXTCAR_ITS ---
Diet Diet Order/Speech Therapy: 06/30/22 17:10 Diet: Consistent Carb - Calorie Controlled Food consistency:: Regular Liquid Consistency:: Regular/Thin Is pt able to select menu?: Yes How many daily calories?: 1800 calorie Routine Orders/Code Status Code Status: Full Code Wound(s) HONORIO BUTTOCKS: Wound Type: redness Dressing Change: Mepilex LEFT HIP: Wound Type: Abrasion HONORIO LEGS/KNEES: Wound Type: scabs PLANTAR SURFACE RT FOOT: Wound Type: callused LEFT FOOT DORSAL SURFACE 2ND TOE: Wound Type: Neuropathic/Diabetic Foot Ulcer Dressing Change: AntiMicrobial (Aquacel AG, etc) LEFT BIG TOE/INNER FOOT: Wound Type: Pressure Injury Dressing Change: Mepilex Left Buttock: Wound Type: shearing Dressing Change: sherie Therapies Weight Bearing: Weight bearing as tolerated Extremity Affected:: Bilateral Lower Physical Therapy: Eval and Treat Occupational Therapy: Eval and Treat Problem/Diagnosis (1) Debility: Status: Acute Code(s): R53.81 - Other malaise (2) 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 unknown if it is still there (6) Coronary artery disease: Status: Acute Code(s): I25.10 - Atherosclerotic heart disease of [place] coronary artery without angina pectoris (7) Rheumatoid arthritis: Status: Acute Code(s): M06.9 - Rheumatoid arthritis, unspecified (8) Edema: Status: Acute Code(s): R60.9 - Edema, unspecified (9) Diabetes mellitus: Status: Acute Code(s): E11.9 - Type 2 diabetes mellitus without complications (10) Hypokalemia: Status: Acute Code(s): E87.6 - Hypokalemia (11) Depression: Status: Acute Code(s): F32.A - Depression, unspecified Plan 72 year old male with below past medical history admitted to left second toe diabetic foot ulcer, transferred to TCU with debility, here for rehabilitation, strengthening, prior to discharge home with . * Debility - PT/OT. * Dysphagia - ST. * Pain - Arthritis 2 clicks topical tid, Oxycodone 5mg q4h prn. * Bowel - senna/colace 2 tablets bid, Dulcolax 10mg pr x 1 prn, MOM 30ml po x 1 prn. * Adult immunization - Administer pneumonia vaccine, covid19 vaccine, flu vaccine as appropriate. * DVT prophylaxis - Not necessary, already on Eliquis. * LV thrombus - Eliquis 5mg bid. * Hyperlipidemia - Atorvastatin 10mg qhs. 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 * Hypertension - Coreg 6.25mg bid, Lisinopril 5mg daily. * Coronary artery disease - Coreg 6.25mg bid, Lisinopril 5mg daily, Plavix 75mg daily, Eliquis 5mg bid. * Rheumatoid arthritis - MTX 17.5mg per week, Folic acid 1mg daily. * Diabetes Mellitus II - Metformin 500mg bidcm, Glimepiride 4mg am, 2mg pm, Trajdenta 5mg daily, Glargine 22 units daily. * Nutrition - Glucerna shake 120ml 4x/day, Singh 1 packet bid. * Allergic rhinitis - Atrovent 2 sprays nasal bid, Sodium chloride 2 spray nasal tid. * Skin irritation - Calmoseptine topical bid. * Tinea Corporis - Nystatin topical bid. * Hypokalemia - KCL 20meq daily. * BPH - Tamsulosin 0.4mg daily. * Insomnia - Zolpidem 5mg qhs, stable chronic care home use, GDR not recommended. Allergies/Procedures Done in Hospital Allergies morphine Allergy (Verified 05/18/22 11:46) PT UNSURE OF REACTION i was told after surgery that i shouldn't have it rivaroxaban [From Xarelto] Allergy (Verified 07/09/22 03:35) Other developed blisters on his legs Procedures: None Type of Care/Length of Stay Estimated LOS: More Than 30 Days Type of Care Needed: Intermediate Rehab Potential: Fair Prognosis: Fair Additional Orders/Day of Discharge Additional Orders: part B therapies Day of Discharge: 07/20/22 Dietary and Speech Recommendations Dietitian Recommendations/Changes: Will continue 1800 taiwo Cho Control diet Will continue 120 ml glucerna shake 4x/day w/ medpass Rec d/c Singh bid once skin is healed. Follow Up Care Please Follow Up With: Hector Vasquez DO Please Follow Up With: lCyde Davis MD Discharge Plan Admission Admit Date/Time: 06/30/22 16:20 Primary Reason for Your Visit: Debility. Attending Provider: Jerrod Medina Chi Primary Care Provider: Mckayla Silva Instructions Additional Instructions / Restrictions: Discharge to [facility] 07/20/2022, intermediate, Medicaid pending. Discharge Orders/Prescriptions Prescriptions: New acetaminophen 500 mg Tablet 1,000 mg PO Q8 Qty: 0 0RF zolpidem 5 mg Tablet 5 mg PO QHS 3 Days Qty: 3 0RF oxycodone 5 mg Tablet 5 mg PO Q4H PRN PRN (Reason: Pain Score 6-10) 3 Days Qty: 18 0RF Glucerna 1.2 Taiwo 0.06-1.2 gram-kcal/mL Liquid 120 ml PO 4X/DAY Qty: 0 0RF pantoprazole 40 mg Tablet,Delayed Release (Dr/Ec) 40 mg PO DAILY Qty: 0 0RF insulin lispro [Humalog KwikPen Insulin] 100 unit/mL Insulin Pen 10 unit subcut TIDAC Qty: 0 0RF Continued bisacodyl 10 mg Suppository 10 mg TX .PRN X 1 PRN (Reason: Constipation) Qty: 0 0RF carvedilol 6.25 mg tablet 6.25 mg PO BIDCM venlafaxine 75 mg tablet 150 mg PO DAILY atorvastatin 10 mg tablet 10 mg PO QHS sennosides-docusate sodium [Stool Softener-Stimulant Laxat] 8.6-50 mg tablet 1 tab PO BID clopidogrel 75 mg tablet 75 mg PO DAILY potassium chloride [Klor-Con M20] 20 mEq tablet,ER particles/crystals 20 meq PO DAILYCM methotrexate sodium 2.5 mg tablet 17.5 mg PO FR tamsulosin 0.4 mg capsule 0.4 mg PO DAILY@1730 folic acid 1 mg tablet 1 mg PO BREAKFAST nystatin [Nyamyc] 100,000 unit/gram powder 1 applic topical BID Protocol: *Topical Application Instructions APPLICATION INSTRUCTIONS: apply to affected area ipratropium bromide 42 mcg (0.06 %) spray,non-aerosol 2 spray NASAL BID [place] Nasal 0.65 % aerosol,spray 2 spray NASAL TID bupropion HCl 150 mg tablet extended release 24 hr 150 mg PO DAILY menthol-zinc oxide [Calmoseptine] 0.44-20.6 % ointment 1 applic topical BID Protocol: *Topical Application Instructions APPLICATION INSTRUCTIONS: BILAT BUTTOCKS Tradjenta 5 mg tablet 5 mg PO DAILY Singh (with collagen) 7-7-1.5 gram powder in packet 1 packet PO BIDCM Discontinued magnesium hydroxide 400 mg/5 mL Suspension 30 ml PO .PRN X 1 PRN (Reason: Constipation) Qty: 0 0RF lidocaine HCl 4 % (40 mg/mL) Solution 50 ml topical X1 PRN (Reason: wound debridement ) Qty: 0 0RF Protocol: *Topical Application Instructions APPLICATION INSTRUCTIONS: for wound debridement for left second toe oxycodone 5 mg Tablet 5 mg PO Q4H PRN PRN (Reason: Pain Score 6-10) Qty: 0 0RF Arthritis Pain Compound 2 click topical TID metformin 500 mg tablet 500 mg PO BIDCM glimepiride 2 mg tablet 2 mg PO SUPPER glimepiride 4 mg tablet 4 mg PO BREAKFAST aspirin 81 mg tablet,chewable 81 mg PO BREAKFAST lisinopril 5 mg tablet 5 mg PO DAILY zolpidem 5 mg tablet 5 mg PO QHS Glucerna 1.2 Taiwo 0.06-1.2 gram-kcal/mL liquid 120 ml PO TIDCM Eliquis 5 mg tablet 5 mg PO BID insulin glargine-yfgn 100 unit/mL (3 mL) insulin pen 22 unit subcut 0700 Referrals / Follow Up: Mckayla Silva DO [Primary Care Provider] - Hector Vasquez DO [Med Staff - Publishing Agent] - Disposition Disposition (needs filled in before D/C Order can be placed): NonSkilled NH/Intermed Care
[2022-07-19] MEDS: Zolpidem Tartrate 5 MG Tablet PO (21:27)
[2022-07-19] MEDS: Atorvastatin Calcium 10 MG Tablet PO (21:29)
[2022-07-19 22:01] LABS: Bedside Glucose 232 mg/dL (74-106)
--- NOTE | 2022-07-20 05:42 | NURSING ---
Addendum entered by Unruly Cross 07/20/22 05:58: Written communication left for regarding patient complaint of itch and digging at chest creating scabs. Original Note: LAY OUT MAKER reports observeding patient scratching at chest with multiple scabsobservved. Patient assessed, patient asked cause of multiple scabs to chest area, patient states it was itchy so I dig at it. Patient educated on importance of maintaining skin integrity and encouraged not to scratch at skin, patient verbalized understanding. Area cleased with soap and water, pat dry and new/clean shirt provided to patient. Call light in reach. Patient requests PRN Oxy for 8/10 back pain/all over.
[2022-07-20] MEDS: oxyCODONE 5 MG Tablet PO (05:46)
[2022-07-20] MEDS: Methotrexate 2.5 MG Tablet 17.5 MG PO (05:46)
[2022-07-20] MEDS: Senna/Docusate Sodium 1 Tablet PO (05:47)
[2022-07-20] MEDS: Pantoprazole Sodium 40 MG Tablet PO (05:47)
[2022-07-20] MEDS: buPROPion (XL) 150 MG TABLET.XL PO (05:47)
[2022-07-20] MEDS: Acetaminophen 500 MG Tablet 1000 MG PO (05:47)
[2022-07-20] MEDS: Glucerna Shake 120 ML LIQUID PO (05:47)
[2022-07-20] MEDS: Venlafaxine HCl 75 MG Tablet 150 MG PO (05:47)
[2022-07-20] MEDS: Ipratropium Bromide 0.06% NASAL SPRAY 2 SPRAY NASAL (05:48)
[2022-07-20] MEDS: Nystatin Powder 15gm Bottle 1 APPLIC TOPICAL (05:48)
[2022-07-20] MEDS: Sodium Chloride 0.65% 1 SPRAY SPRAY.BTL 2 SPRAY NASAL (05:48)
[2022-07-20] MEDS: Arthritis Pain Compound 60 CLICK TUBE TOPICAL (05:49)
[2022-07-20] MEDS: Menthol/Lanolin/Calamine/Znox 113 GM Tube 1 APPLIC TOPICAL (05:49)
[2022-07-20 06:55] LABS: Bedside Glucose 239 mg/dL (74-106)
[2022-07-20] MEDS: Folic Acid 1 MG Tablet PO (08:27)
[2022-07-20] MEDS: LINAGLIPTIN 5 MG TABLET PO (08:27)
[2022-07-20] MEDS: Carvedilol 6.25 MG Tablet PO (08:27)
[2022-07-20] MEDS: Juven (unflavored) Packet 1 PACKET PO (08:27)
[2022-07-20] MEDS: Insulin Lispro 100 UNIT/ML INSULN.PEN 10 UNIT SC (08:27)
[2022-07-20] MEDS: Potassium Chloride Oral Tablet 20 MEQ PO (08:27)
[2022-07-20] MEDS: Clopidogrel Bisulfate 75 MG Tablet PO (08:27)
[2022-07-20 10:36] LABS: Bedside Glucose 171 mg/dL (74-106)
--- NOTE | 2022-07-20 11:26 | NURSING ---
Report called into [facility] to [facility].
[2022-07-20 11:28] VITALS: BP 115/67; PULSE 91; RESP 14; TEMP 36.7; O2SAT 95
== END 2022-07-20 11:10 | disposition intermediate care facility (04) | DRG 639 ==
PROVIDERS: Admitting Provider Family Medicine Geriatric Medicine; PCP Family Medicine; Visit Provider Family Medicine Geriatric Medicine
DX: E11.621 Type 2 diabetes mellitus with foot ulcer (principal); E11.22 Type 2 diabetes mellitus with diabetic chronic kidney disease; E11.42 Type 2 diabetes mellitus with diabetic polyneuropathy; E11.51 Type 2 diabetes mellitus with diabetic peripheral angiopathy without gangrene; B35.4 Tinea corporis; L97.524 Non-pressure chronic ulcer of other part of left foot with necrosis of bone; Z79.4 Long term (current) use of insulin; E78.5 Hyperlipidemia, unspecified; E87.6 Hypokalemia; N18.2 Chronic kidney disease, stage 2 (mild); I12.9 Hypertensive chronic kidney disease with stage 1 through stage 4 chronic kidney disease, or unspecified chronic kidney disease; I25.10 Atherosclerotic heart disease of native coronary artery without angina pectoris; F32.A Depression, unspecified; Z79.84 Long term (current) use of oral hypoglycemic drugs; N40.0 Benign prostatic hyperplasia without lower urinary tract symptoms; Z79.899 Other long term (current) drug therapy; Z79.82 Long term (current) use of aspirin; Z79.02 Long term (current) use of antithrombotics/antiplatelets; Z95.1 Presence of aortocoronary bypass graft
CPT/HCPCS: 36415; 80048; 82962; 85025; 87426; 87811; 92526; 97110; 97116; 97163; 97166; 97530; 97535; 97802; J8610

== ENCOUNTER 2022-08-29 11:18 | Emergency (ER) | payer MEDICARE, OTHER, SELFPAY ==
[2022-08-29] VITALS (31 sets, daily range): BP systolic 100–143; BP diastolic 72–85; PULSE 75–95; RESP 9–24; TEMP 37.2; O2SAT 87–100; BMI 28.8
--- NOTE | 2022-08-29 11:51 | EKG12_ITS ---
Test Reason : CP Blood Pressure : / mmHG Vent. Rate : 092 BPM Atrial Rate : 092 BPM P-R Int : 164 ms QRS Dur : 156 ms QT Int : 432 ms P-R-T Axes : 061 217 046 degrees QTc Int : 534 ms Sinus rhythm with occasional Premature ventricular complexes Possible Left atrial enlargement Right bundle branch block , plus right ventricular hypertrophy Inferior infarct , age undetermined Anterolateral infarct , age undetermined Abnormal ECG Confirmed by JORDEN MEEK, SHAJI ([id number]), make up editor CAROLYN HYLTON ([id number]) on 08/31/2022 6:58:52 AM Referred By: Confirmed By:CAITY LEONARDO MD
[2022-08-29] MEDS: Aspirin 81 MG TAB.CHEW 324 MG PO (11:56)
--- NOTE | 2022-08-29 12:00 | RAD_ITS ---
EXAM: XR CHEST, 1 VIEW CLINICAL INDICATION: chest pain TECHNIQUE: Frontal view of the chest. This report was created using [employer] report generation technology. COMPARISON: XR Chest dated 05/18/2022 FINDINGS: LUNGS AND PLEURAL SPACES: Normal. No consolidation or edema. No pneumothorax. No effusion. HEART: Normal heart size. MEDIASTINUM: No mediastinal or hilar mass. BONES/JOINTS: Sternotomy wires again noted. SOFT TISSUES: Normal. RAD/Chest 1 View (Portable) IMPRESSION: No acute cardiopulmonary abnormality. No interval change. Electronically Signed: Terry Art MD at 12:47 EDT ,
[2022-08-29 12:10] LABS: Absolute Lymphocyte Count 1.39 X10^3/uL (0.83-4.51); Absolute Neutrophil Count 3.5 X10^3/uL (2.0-7.7); Basophil# 0.06 X10^3/uL; Basophil% 1.1 % (0-1); Hemoglobin 13.2 g/dL (13.0-16.5); Lymphocyte # 1.39 X10^3/ul (0.83-4.51); Lymphocyte % 24.8 % (19-41); Mean Corp Hgb Conc 32.2 g/dL (32-36); Mean Corpuscular Hgb 34.2 pg (27.0-32.0); Mean Corpuscular Volume 106.2 fL (80-94); Mean Platelet Vol. 9.8 fl (6.2-12.0); Monocyte# 0.63 X10^3/uL; Monocyte% 11.2 % (0-10); NRBC Flagged by Analyzer 0 % (0-5); Neutrophil # 3.47 X10^3/uL (2.7-7.7); Neutrophil % 61.8 % (47-70); Platelet Count 206 K/mm3 (150-450); RBC Distribution Width CV 15.8 % (11.6-14.6); RBC Distribution Width SD 60.5 fl (35.1-43.9); Red Blood Count 3.86 M/mm3 (4.6-6.2); White Blood Count 5.6 K/mm3 (4.4-11.0)
[2022-08-29 12:25] LABS: Anion Gap 7 (5-15); BUN 18 mg/dL (7-18); BUN/Creat Ratio 14.1 RATIO (10-20); Calcium,Total 9.1 mg/dL (8.5-10.1); Chloride 106 mmol/L (98-107); Creatinine, Serum 1.28 mg/dL (0.70-1.30); EST Glomerular Filtration Rate 59 mL/min (>60); Est Glom Filt Rate - Afr Amer 71 mL/min (>60); Estimated Creatinine Clearance 50.47 ml/min; Glucose 340 mg/dL (74-106); Potassium 4.6 mmol/L (3.5-5.1); Sodium Level 139 mmol/L (136-145); Troponin-I HS (w/2H Reflex) 40 pg/mL (3.0-78.0)
[2022-08-29 12:27] LABS: BNP,B-Type NATRIURETIC PEPTIDE 124.5 pg/mL (0-100)
[2022-08-29 12:32] LABS: D-Dimer Quantitative (DVT/PE) 0.87 FEU/ug/m (0.27-0.49)
--- NOTE | 2022-08-29 12:41 | EDS_ITS ---
HPI History of Present Illness Chief Complaint: Chest Pain Informant: patient Narrative Narrative: Patient is a 72-year-old male with history of diabetes, debility, coronary artery disease, rheumatoid arthritis and recent hospitalization for inpatient rehab presenting with chest pain. Patient is currently in an ECF for rehab and was doing physical therapy when he developed left-sided upper chest pain. Describes as a fullness. It did not radiate. No associated diaphoresis or shortness of breath. States it last for couple minutes. When it started he sat down and the pain subsided. He is currently asymptomatic. Patient states he was walking at that time. He does have a history of heart attack but cannot remember what those symptoms were as it was too long ago. He denies any other complaints and states he feels well at this time. Was brought in by EMS. No other concerns at this time. Chest pain occurred approximate 1 hour prior to arrival. 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 Erectile dysfunction Failure to thrive Fatigue Foot drop, left foot History of multiple strokes History of right common carotid artery stent placement Hyperlipidemia Hypertension Hypertension Insomnia LV (left ventricular) mural thrombus JENNIFER (obstructive sleep apnea) 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 Psoriasis Psoriatic arthritis Psoriatic arthritis Stroke Type 2 diabetes mellitus with diabetic polyneuropathy Home Medications arginine 7 gram-glutam 7 gram-CaHMB 1.5 [id number]-min oral pwd pkt (Singh (with collagen)) 1 packet PO BIDCM Supplement 06/30/22 [History Last Taken Unknown] atorvastatin 10 mg tablet 10 mg PO QHS Cholesterol 06/30/22 [History Last Taken Unknown] bisacodyl 10 mg rectal suppository [address] .PRN X 1 PRN Constipation #0 ea 06/30/22 [Rx Last Taken Unknown] bupropion HCl 150 mg 24 hr tablet, extended release 150 mg PO DAILY Mood 06/30/22 [History Last Taken Unknown] carvedilol 6.25 mg tablet 6.25 mg PO BIDCM BP 06/30/22 [History Last Taken Unknown] clopidogrel 75 mg tablet 75 mg PO DAILY Blood Thinner 06/30/22 [History Last Taken Unknown] folic acid 1 mg tablet 1 mg PO BREAKFAST Supplement 06/30/22 [History Last Taken Unknown] ipratropium bromide 42 mcg (0.06 %) nasal spray 2 spray NASAL BID Check with primary doctor 06/30/22 [History Last Taken Unknown] linagliptin 5 mg tablet (Tradjenta) 5 mg PO DAILY Diabetes 06/30/22 [History Last Taken Unknown] menthol 0.44 %-zinc oxide 20.6 % topical ointment (Calmoseptine) 1 applic topical BID Skin 06/30/22 [History Last Taken Unknown] methotrexate sodium 2.5 mg tablet 17.5 mg PO FR Psoriasis 06/30/22 [History Last Taken Unknown] nystatin 100,000 unit/gram topical powder (Nyamyc) 1 applic topical BID Skin 06/30/22 [History Last Taken Unknown] potassium chloride 20 mEq tablet,extended release(part/cryst) (Klor-Con M) 20 meq PO DAILYCM Supplement 06/30/22 [History Last Taken Unknown] sennosides 8.6 mg-docusate sodium 50 mg tablet (Stool Softener-Stimulant Laxative) 1 tab PO BID Constipation 06/30/22 [History Last Taken Unknown] sodium chloride 0.65 % nasal spray aerosol (Deep Sea Nasal) 2 spray NASAL TID Congestion 06/30/22 [History Last Taken Unknown] tamsulosin 0.4 mg capsule 0.4 mg PO DAILY@1730 Retention 06/30/22 [History Last Taken Unknown] venlafaxine 75 mg tablet 150 mg PO DAILY Mood 06/30/22 [History Last Taken Unknown] acetaminophen 500 mg tablet 1,000 mg PO Q8 #0 tabs 07/19/22 [Rx Last Taken Unknown] insulin lispro 100 unit/mL subcutaneous pen (Humalog KwikPen (U-100) Insulin) 10 unit (0.1 mL) subcut TIDAC #0 mL 07/19/22 [Rx Last Taken Unknown] nutrition tx glu intol,lac-free,soy-fiber 0.06 gram-1.2 kcal/mL liquid (Glucerna 1.2 Mustapha) 120 ml PO 4X/DAY #0 mL 07/19/22 [Rx Last Taken Unknown] oxycodone 5 mg tablet 5 mg PO Q4H PRN PRN Pain Score 6-10 3 days #18 tabs 07/19/22 [Rx Last Taken Unknown] pantoprazole 40 mg tablet,delayed release 40 mg PO DAILY #0 tabs 07/19/22 [Rx Last Taken Unknown] zolpidem 5 mg tablet 5 mg PO QHS 3 days #3 tabs 07/19/22 [Rx Last Taken Unknown] Allergy/AdvReac Type Severity Reaction Status Date / Time morphine Allergy PT UNSURE Verified 05/18/22 11:46 OF REACTION rivaroxaban [From Xarelto] Allergy Other Verified 07/09/22 03:35 Family History Mother CVA (cerebral vascular accident) Diabetes Heart disease Hypertension Father Diabetes Heart disease Pulmonary disease Surgical History History of back surgery Hx of CABG S/P peripheral artery bypass Status post right foot surgery Social History household members: spouse Smoking Status: Never smoker alcohol intake: never substance use type: does not use ROS ROS ED Constitutional Constitutional ED: Denies chills or fever(s) Eyes Eyes: Denies change in vision ENT ENT ED: Reports other Details: nasal congestion- chronic per patient ; Denies rhinorrhea Cardiovascular Cardiovascular: Reports as per HPI and chest pain Respiratory/Chest Respiratory/Chest: Denies cough or dyspnea Gastrointestinal Gastrointestinal: Denies abdominal pain, nausea or vomiting Musculoskeletal Musculoskeletal: Denies arthralgias or myalgias Integumentary Denies rash Neurologic Neurologic: Denies headache(s) Hematologic/Lymphatic Hematologic/Lymphatic: Denies easy bleeding or easy bruising EXAM Physical Exam Const Vital Signs: 08/29/22 11:19 08/29/22 11:24 08/29/22 11:51 Temperature 98.9 F Temperature Source Oral Pulse Rate 89 Respiratory Rate 19 H Respiratory Effort Normal Non-Labored Blood Pressure 143/78 H Blood Pressure Mean 99 Pulse Ox 97 Oxygen Delivery Method Room Air Room Air 08/29/22 11:29 08/29/22 11:30 08/29/22 11:31 Temperature Temperature Source Pulse Rate 92 94 95 Respiratory Rate 9 L 22 H 18 Respiratory Effort Blood Pressure 142/80 H Blood Pressure Mean 100 Pulse Ox 98 99 100 Oxygen Delivery Method 08/29/22 11:40 08/29/22 11:46 08/29/22 11:50 Temperature Temperature Source Pulse Rate 89 92 89 Respiratory Rate 19 H 19 H 20 H Respiratory Effort Blood Pressure 127/72 H Blood Pressure Mean 79 Pulse Ox 97 98 95 Oxygen Delivery Method 08/29/22 12:00 08/29/22 12:01 08/29/22 12:10 Temperature Temperature Source Pulse Rate 91 89 91 Respiratory Rate 17 18 22 H Respiratory Effort Blood Pressure 131/73 H Blood Pressure Mean 91 Pulse Ox 95 96 96 Oxygen Delivery Method 08/29/22 12:16 08/29/22 12:20 08/29/22 12:30 Temperature Temperature Source Pulse Rate Respiratory Rate Respiratory Effort Blood Pressure 100/78 Blood Pressure Mean 87 Pulse Ox 100 96 97 Oxygen Delivery Method 08/29/22 12:31 08/29/22 12:40 08/29/22 12:46 Temperature Temperature Source Pulse Rate Respiratory Rate Respiratory Effort Blood Pressure 112/80 124/85 H Blood Pressure Mean 88 99 Pulse Ox 96 96 Oxygen Delivery Method 08/29/22 12:51 08/29/22 13:01 08/29/22 13:24 Temperature Temperature Source Pulse Rate 91 Respiratory Rate 14 Respiratory Effort Blood Pressure 131/79 H Blood Pressure Mean 93 Pulse Ox 87 Oxygen Delivery Method 08/29/22 13:41 08/29/22 13:50 08/29/22 14:00 Temperature Temperature Source Pulse Rate 91 82 82 Respiratory Rate 19 H 18 20 H Respiratory Effort Blood Pressure Blood Pressure Mean Pulse Ox 98 100 93 Oxygen Delivery Method 08/29/22 14:01 08/29/22 14:10 08/29/22 14:20 Temperature Temperature Source Pulse Rate 85 78 75 Respiratory Rate 19 H 12 15 Respiratory Effort Blood Pressure 119/84 H Blood Pressure Mean 95 Pulse Ox Oxygen Delivery Method 08/29/22 14:30 08/29/22 14:40 08/29/22 14:50 Temperature Temperature Source Pulse Rate 78 84 84 Respiratory Rate 23 H 22 H 19 H Respiratory Effort Blood Pressure Blood Pressure Mean Pulse Ox Oxygen Delivery Method 08/29/22 15:00 08/29/22 15:01 08/29/22 16:00 Temperature Temperature Source Pulse Rate 86 81 Respiratory Rate 10 L 24 H 18 Respiratory Effort Blood Pressure 130/80 H Blood Pressure Mean 97 Pulse Ox Oxygen Delivery Method Positive well nourished and well developed General Appearance ED: well developed and NAD HEENT Reports moist mucous membranes normocephalic and atraumatic Eyes PERRL and EOMs intact bilaterally Neck supple and no JVD Chest Wall inspection of chest normal and palpation of chest normal Resp normal respiratory effort and clear to auscultation bilaterally Cardio regular rate, regular rhythm and no murmurs GI normal to inspection, nondistended, normoactive bowel sounds and soft to palpation Extremity normal to inspection Extremity Narrative: Brace on the left lower extremity General Extremety ED: Negative for edema General Extremity: Negative for edema Neuro oriented x3 Sensorium / Orientation: awake and alert Motor Exam: general weakness Psych mental status grossly normal Mood & Affect: depressed Skin no rashes or lesions noted and no wounds Heart Score History: Slightly/Non-Suspicious ECG: Nonspecific Repolarization Age: >/= 65 years Risk Factors: >/= 3 Risk Factors or History of CAD Troponin: </= Normal Limit Score: 5 MDM MDM MDM Narrative Medical decision making narrative: Patient's evaluated after transient episode of chest pain while at inpatient rehab.He has been asymptomic while in the ED. patient has abnormal EKG but does not appear significantly changed from prior EKG. Differential includes ACS, pulmonary emboli, pneumonia pneumothorax. Patient's vital signs are normal upon arrival to the emergency room. Delta high- sensitivity troponin is normal and stable at 40 and 41 respectively. He does have an elevated D-dimer at and CT is performed given his symptoms and recent hospitalization. There is no acute process including pulmonary emboli or infiltrate found on his CT. He does have a questionable gallstones however he is not complaining of pain in his abdomen or right upper quadrant abdominal pain. Patient does not have a leukocytosis or other findings suggestive of infection. He continues to be asymptomatic while in the emergency room. Patient is given aspirin the emergency per protocol. Given no findings of ACS with cardiac markers, no dynamic EKG changes, no further chest pain and no signs of acute pulmonary process I do think patient can safely be discharged back to nursing facility. Counseled if he has further episodes of pain that he should either return the emergency room or follow-up with cardiology outpatient. He verbalizes agreement understand with this plan. Patient discharged home in stable condition. History & Record Review Discussion w/independent historian: EMS personnel and Patient Additional record(s) reviewed:: Prior inpatient record Lab Data Attestation: I reviewed the patient's lab results. Labs: Laboratory Results - last 24 hr 08/29/22 08/29/22 08/29/22 11:00 11:00 11:00 WBC 5.6 RBC 3.86 L Hgb 13.2 Hct 41.0 MCV 106.2 H MCH 34.2 H MCHC 32.2 RDW Std Deviation 60.5 H RDW Coeff of Melodie 15.8 H Plt Count 206 MPV 9.8 Immature Gran % (Auto) 1.100 H Neut % (Auto) 61.8 Lymph % (Auto) 24.8 Johnston % (Auto) 11.2 H Eos % (Auto) 0.0 Baso % (Auto) 1.1 H Absolute Neuts (auto) 3.5 Absolute Lymphs (auto) 1.39 Nucleated RBC % 0 D-Dimer Quant (PE/DVT) Sodium 139 Potassium 4.6 Chloride 106 Carbon Dioxide 26.0 Anion Gap 7 BUN 18 Creatinine 1.28 Estim Creat Clear Calc 50.47 Est GFR (MDRD) Af Amer 71 Est GFR (MDRD) Non-Af 59 L BUN/Creatinine Ratio 14.1 Glucose 340 H Calcium 9.1 Troponin I High Sens 40 B-Natriuretic Peptide 124.5 H 08/29/22 08/29/22 11:00 14:10 WBC RBC Hgb Hct MCV MCH MCHC RDW Std Deviation RDW Coeff of Melodie Plt Count MPV Immature Gran % (Auto) Neut % (Auto) Lymph % (Auto) Johnston % (Auto) Eos % (Auto) Baso % (Auto) Absolute Neuts (auto) Absolute Lymphs (auto) Nucleated RBC % D-Dimer Quant (PE/DVT) 0.87 H* Sodium Potassium Chloride Carbon Dioxide Anion Gap BUN Creatinine Estim Creat Clear Calc Est GFR (MDRD) Af Amer Est GFR (MDRD) Non-Af BUN/Creatinine Ratio Glucose Calcium Troponin I High Sens 41 B-Natriuretic Peptide Radiography Chest X-Ray - ED: 1 View, Read by ED Physician, Read by Radiologist and No Acute Disease CTA PE Study: No Evidence of PE Diagnostic Testing: Clinical Impression(s) from Imaging Studies Chest X-Ray 08/29/22 12:00 IMPRESSION: No acute cardiopulmonary abnormality. No interval change. Electronically Signed: Terry Art MD at 12:47 EDT , Chest CTA 08/29/22 13:15 IMPRESSION: 1. No evidence of acute pulmonary embolism. 2. No acute cardiopulmonary abnormality. 3. Question gallstones. Electronically Signed: Terry Art MD at 14:04 EDT , Rhythm Strip Rhythm Strip: Sinus Rhythm Rate: 92 Ectopy: PVC(s) EKG Initial EKG: Attestation: I personally reviewed and interpreted this EKG as follows: Interpretation: Sinus Rhythm Comments: Sinus rhythm with PVCs at a rate of 92 bpm Rightward axis, right bundle zoltan block with right ventricular hypertrophy Persistent T wave inversions in V1 through V3 with no reciprocal changes Compared to prior EKG on 11/09/2021 patient now has PVCs with slightly deeper T wave inversions in the septal leads Discharge Plan Triage Chief Complaint: Chest Pain ED Provider: Patrica Holloway Dx/Rx/DC Orders Clinical Impression: Chest pain of uncertain etiology Instructions: ED Chest Pain, Uncertain Cause Prescriptions: No Action bisacodyl 10 mg Suppository [address] .PRN X 1 PRN (Reason: Constipation) Qty: 0 0RF carvedilol 6.25 mg tablet 6.25 mg PO BIDCM venlafaxine 75 mg tablet 150 mg PO DAILY atorvastatin 10 mg tablet 10 mg PO QHS sennosides-docusate sodium [Stool Softener-Stimulant Laxat] 8.6-50 mg tablet 1 tab PO BID clopidogrel 75 mg tablet 75 mg PO DAILY potassium chloride [Klor-Con M20] 20 mEq tablet,ER particles/crystals 20 meq PO DAILYCM methotrexate sodium 2.5 mg tablet 17.5 mg PO FR tamsulosin 0.4 mg capsule 0.4 mg PO DAILY@1730 folic acid 1 mg tablet 1 mg PO BREAKFAST nystatin [Nyamyc] 100,000 unit/gram powder 1 applic topical BID Protocol: *Topical Application Instructions APPLICATION INSTRUCTIONS: apply to affected area ipratropium bromide 42 mcg (0.06 %) spray,non-aerosol 2 spray NASAL BID Deep Sea Nasal 0.65 % aerosol,spray 2 spray NASAL TID bupropion HCl 150 mg tablet extended release 24 hr 150 mg PO DAILY menthol-zinc oxide [Calmoseptine] 0.44-20.6 % ointment 1 applic topical BID Protocol: *Topical Application Instructions APPLICATION INSTRUCTIONS: BILAT BUTTOCKS Tradjenta 5 mg tablet 5 mg PO DAILY Singh (with collagen) 7-7-1.5 gram powder in packet 1 packet PO BIDCM acetaminophen 500 mg Tablet 1,000 mg PO Q8 Qty: 0 0RF zolpidem 5 mg Tablet 5 mg PO QHS 3 Days Qty: 3 0RF oxycodone 5 mg Tablet 5 mg PO Q4H PRN PRN (Reason: Pain Score 6-10) 3 Days Qty: 18 0RF Glucerna 1.2 Mustapha 0.06-1.2 gram-kcal/mL Liquid 120 ml PO 4X/DAY Qty: 0 0RF pantoprazole 40 mg Tablet,Delayed Release (Dr/Ec) 40 mg PO DAILY Qty: 0 0RF insulin lispro [Humalog KwikPen Insulin] 100 unit/mL Insulin Pen 10 unit subcut TIDAC Qty: 0 0RF Primary Care Provider: Mckayla Silva Referrals: Mckayla Silva DO [Primary Care Provider] - Disposition Disposition: Detention Facility Discharge Location: [facility] Discharge Date/Time: 08/29/22 16:45
--- NOTE | 2022-08-29 13:15 | CT_ITS ---
EXAM: CT ANGIOGRAPHY CHEST WITHOUT AND WITH INTRAVENOUS CONTRAST CLINICAL INDICATION: chest pain, elevated dimer TECHNIQUE: Helically acquired angiography images were obtained of the chest without and with intravenous contrast. This CT exam was performed using one or more of the following dose reduction techniques: automated exposure control, adjustment of the mA and/or kV according to patient size, and/or use of iterative reconstruction technique. This report was created using [employer] report generation technology. MIP reconstructed images were created and reviewed. CONTRAST: 100ML OF ISOVUE 370 COMPARISON: None. FINDINGS: PULMONARY ARTERIES: Normal. Normal in caliber. No evidence of pulmonary embolism. AORTA: Normal. Normal in caliber. No evidence of dissection. GREAT VESSELS OF AORTIC ARCH: Normal. Normal in caliber. No evidence of dissection. LUNGS AND PLEURAL SPACES: Normal. No mass. No consolidation or edema. No pleural effusion or thickening. No pneumothorax. HEART: Surgical changes of coronary artery bypass graft (CABG). No pericardial effusion. No signs of right heart strain, ratio of right ventricle to left ventricle measures less than 1. Normal heart size. MEDIASTINUM: Normal. No mediastinal or hilar adenopathy. Esophagus is unremarkable. No hiatal hernia. THYROID: Normal. No thyroid lesions. BONES/JOINTS: Normal. No suspicious lytic or blastic abnormality. GALLBLADDER AND BILE DUCTS: Question small amount of sludge or small gallstones. KIDNEYS AND URETERS: 4.2 cm cyst noted within the upper pole left kidney. CT/CTA Chest W/WO Contrast IMPRESSION: 1. No evidence of acute pulmonary embolism. 2. No acute cardiopulmonary abnormality. 3. Question gallstones. Electronically Signed: Terry Art MD at 14:04 EDT ,
[2022-08-29 13:56] LABS: Reflex Troponin-HS? (from REC) Y
[2022-08-29 14:38] LABS: Troponin-I HS 41 pg/mL (3.0-78.0)
--- NOTE | 2022-08-29 15:14 | NURSING ---
CALLED [facility], ETA IS 90 MIN TO 2 HRS
== END 2022-08-29 16:45 | disposition skilled nursing facility (03) ==
PROVIDERS: Emergency Provider Emergency Medicine; PCP Family Medicine; Visit Provider Emergency Medicine
DX: R07.9 Chest pain, unspecified (principal); E11.42 Type 2 diabetes mellitus with diabetic polyneuropathy; E11.22 Type 2 diabetes mellitus with diabetic chronic kidney disease; N18.2 Chronic kidney disease, stage 2 (mild); I12.9 Hypertensive chronic kidney disease with stage 1 through stage 4 chronic kidney disease, or unspecified chronic kidney disease; I25.10 Atherosclerotic heart disease of native coronary artery without angina pectoris; E78.5 Hyperlipidemia, unspecified; I45.10 Unspecified right bundle-branch block
CPT/HCPCS: 71045; 71275; 80048; 83880; 84484; 85025; 85379; 93005; 99285; Q9967; A4216

== ENCOUNTER 2022-11-25 01:03 | Inpatient (IN) | payer MEDICARE, OTHER, MEDICAID, SELFPAY ==
[2022-11-25] VITALS (49 sets, daily range): BP systolic 77–117; BP diastolic 46–76; PULSE 57–92; RESP 13–48; TEMP 36.1–37.2; O2SAT 92–100; BMI 29.9; BMI 28.9
--- NOTE | 2022-11-25 01:10 | EKG12_ITS ---
Test Reason : SOB Blood Pressure : / mmHG Vent. Rate : 075 BPM Atrial Rate : 075 BPM P-R Int : 176 ms QRS Dur : 150 ms QT Int : 462 ms P-R-T Axes : 043 206 013 degrees QTc Int : 515 ms Normal sinus rhythm Right bundle branch block , plus right ventricular hypertrophy Possible Lateral infarct , age undetermined Inferior infarct , age undetermined Abnormal ECG Confirmed by GODFREY MEEK, CARA ([id number]), business editor CAROLYN HYLTNO ([id number]) on 11/26/2022 1:28:56 PM Referred By: RUSS Confirmed By:CARA DONAHUE MD
--- NOTE | 2022-11-25 01:40 | RAD_ITS ---
EXAM: XR CHEST, 1 VIEW CLINICAL INDICATION: dyspnea TECHNIQUE: Frontal view of the chest. COMPARISON: 08/29/2022 FINDINGS: LUNGS AND PLEURAL SPACES: Unremarkable. No consolidation or edema. No pneumothorax. No effusion. HEART: Unremarkable. Cardiac silhouette not enlarged. MEDIASTINUM: Surgical changes of the mediastinum. BONES/JOINTS: Unremarkable. SOFT TISSUES: Unremarkable. RAD/Chest 1 View (Portable) IMPRESSION: No acute findings in the chest. Electronically Signed: Minor Wolff MD at 1:53 EDT ,
[2022-11-25 01:44] LABS: Absolute Lymphocyte Count 0.86 X10^3/uL (0.83-4.51); Absolute Neutrophil Count 13.4 X10^3/uL (2.0-7.7); Basophil# 0.08 X10^3/uL; Basophil% 0.5 % (0-1); Hematocrit 40.2 % (40-54); Hemoglobin 12.4 g/dL (13.0-16.5); Lymphocyte # 0.86 X10^3/ul (0.83-4.51); Lymphocyte % 5.7 % (19-41); Mean Corp Hgb Conc 30.8 g/dL (32-36); Mean Corpuscular Hgb 34.3 pg (27.0-32.0); Mean Platelet Vol. 10.9 fl (6.2-12.0); Monocyte# 0.53 X10^3/uL; Monocyte% 3.5 % (0-10); NRBC Flagged by Analyzer 1.3 % (0-5); Neutrophil # 13.37 X10^3/uL (2.7-7.7); Neutrophil % 88.6 % (47-70); POSITIVE MORPHOLOGY YES; Platelet Count 138 K/mm3 (150-450); RBC Distribution Width SD 72.2 fl (35.1-43.9); Red Blood Count 3.62 M/mm3 (4.6-6.2); White Blood Count 15.1 K/mm3 (4.4-11.0)
[2022-11-25 01:52] LABS: International Normalized Ratio 1.7; Partial Thromboplast Time 30.5 Seconds (24.1-36.2); Prothrombin Time (Protime)PT. 20.3 SECONDS (11.7-14.9)
[2022-11-25 02:05] LABS: Differential Indicated SCAN CRITERIA MET
[2022-11-25 02:06] LABS: Anisocytosis 1+; Macrocytosis 2+; Platelet Estimate SLT DEC (ADEQ)
[2022-11-25 02:07] LABS: Anion Gap 11 (5-15); BUN 39 mg/dL (7-18); Calcium,Total 8.8 mg/dL (8.5-10.1); Chloride 110 mmol/L (98-107); Creatinine, Serum 1.86 mg/dL (0.70-1.30); EST Glomerular Filtration Rate 38 mL/min (>60); Est Glom Filt Rate - Afr Amer 46 mL/min (>60); Estimated Creatinine Clearance 34.73 ml/min; Glucose 154 mg/dL (74-106); Magnesium 2.5 mg/dL (1.6-2.6); Potassium 5.3 mmol/L (3.5-5.1); Sodium Level 136 mmol/L (136-145); Troponin-I HS 48 pg/mL (3.0-78.0)
--- NOTE | 2022-11-25 02:21 | CT_ITS ---
EXAM: CT CHEST WITHOUT INTRAVENOUS CONTRAST CLINICAL INDICATION: CHF TECHNIQUE: Helically acquired images were obtained of the chest without intravenous contrast. This CT exam was performed using one or more of the following dose reduction techniques: automated exposure control, adjustment of the mA and/or kV according to patient size, and/or use of iterative reconstruction technique. COMPARISON: No relevant prior studies available. FINDINGS: LUNGS AND PLEURAL SPACES: Small pleural effusions and bibasilar atelectasis. No mass. No pneumothorax. No significant pulmonary edema. HEART: Unremarkable. Heart size is normal. No pericardial effusion. No significant coronary artery calcifications. MEDIASTINUM: Surgical changes of the mediastinum. No mediastinal or hilar adenopathy. Esophagus is unremarkable. No hiatal hernia. THYROID: Unremarkable. No thyroid lesions. BONES/JOINTS: Degenerative changes of the spine. No suspicious lytic or blastic abnormality. VASCULATURE: Unremarkable. Thoracic aorta is non-dilated. CT/Chest without Contrast IMPRESSION: Small pleural effusions and bibasilar atelectasis. No significant pulmonary edema. Electronically Signed: Minor Wolff MD at 3:21 EDT ,
[2022-11-25] MEDS: Ondansetron 4 MG/2 ML Vial IV ×2 (02:34→10:14)
[2022-11-25 03:41] LABS: Procalcitonin 0.15 ng/mL (0.00-0.09)
[2022-11-25] MEDS: 0.9% Normal Saline 1,000 ML 999 ML IV (04:00)
[2022-11-25 04:01] LABS: Mucous, Urine 0 SEEN /hpf (<or=2+); Squamous Epithelial Cells - UA 0 SEEN /hpf (0-5)
[2022-11-25 04:02] LABS: Allen Test Positive; Base Excess -14 mmol/L (-2 to +2); Bicarbonate 11.3 mmol/L (22-26); Blood Gas Specimen Type ART; FI02 25; O2 Delivery Device Vapotherm; PO2 130 mmHG (75-100); SITE L Radial; SO2 99 % (95-99); Total Carbon Dioxide 12 mmol/L; pCO2 20.7 mmHg (35-45); pH 7.35 (7.35-7.45)
[2022-11-25 04:15] LABS: Color, Urine Yellow (Yellow); Glucose, Dipstick Normal (Normal); Ketone-Dipstick 5 mg/dl (Negative); Leukocyte Esterase-Dipstick 500 /ul (Negative); Nitrite-Dipstick Positive (Negative); Occult Blood-Urine 250 /ul (Negative); Protein-Dipstick 100 mg/dl (Negative); Urine Bilirubin Dipstick Negative (Negative); Urine Clarity Turbid (Clear); Urine Urobilinogen 1 mg/dl (Normal)
[2022-11-25 04:23] LABS: Troponin-I HS 48 pg/mL (3.0-78.0)
[2022-11-25 04:33] LABS: Lactic Acid 5.9 mmol/L (0.4-1.9)
[2022-11-25 04:54] LABS: White Blood Cells >100 SEEN /hpf (0-5)
[2022-11-25 04:55] LABS: Bacteria 4+ /hpf (None Seen); Red Blood Cells-Urine 25-50 SEEN /hpf (0-5)
[2022-11-25] MEDS: Lactated Ringers 1,000 ML 999 ML IV (04:56)
--- NOTE | 2022-11-25 06:29 | HP.PCM.HOS_ITS ---
HPI - General General Date of Admission: 11/25/22 Date of Service: 11/25/22 Chief Complaint: SOB HPI Narrative TRAM RIVERA, with a significant history of hypertension; hyperlipidemia; CABG x3 vessels; obstructive sleep apnea; depression; and chronic kidney disease who presents to the emergency department with progressively worsening shortness of breath that has been going on for the past 10 to 12 days and worsened on the day of presentation. Associated with his symptoms is intermittent nonproductive cough, nausea without vomiting and abdominal upset. Patient denies dysuria but reports increasing frequency of urination. Patient reports to the chronically he sleeps in the chair; and he has apneic moments. Nurse at the emergency department reports that patient had apneic moments while at the ED. Emergency department doctor reported that on presentation patient had altered sensorium. He was breathing with use of accessory muscles and at a rate of about 50 cycles per minutes. Also he had apneic moments. But with use of non invasive pressure ventilation at the ED patient sensorium improved and he could not talk. 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 Erectile dysfunction Failure to thrive Fatigue Foot drop, left foot History of multiple strokes History of right common carotid artery stent placement Hyperlipidemia Hypertension Hypertension Insomnia LV (left ventricular) mural thrombus JENNIFER (obstructive sleep apnea) 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 Psoriasis Psoriatic arthritis Psoriatic arthritis Stroke Type 2 diabetes mellitus with diabetic polyneuropathy Home Medications arginine 7 gram-glutam 7 gram-CaHMB 1.5 weil-[id number]-xh-min oral pwd pkt (Singh (with collagen)) 1 packet PO BIDCM Supplement 06/30/22 [History Last Taken Unknown] atorvastatin 10 mg tablet 10 mg PO QHS Cholesterol 06/30/22 [History Last Taken Unknown] bisacodyl 10 mg rectal suppository [address] .PRN X 1 PRN Constipation #0 ea 06/30/22 [Rx Last Taken Unknown] bupropion HCl 150 mg 24 hr tablet, extended release 150 mg PO DAILY Mood 06/30/22 [History Last Taken Unknown] carvedilol 6.25 mg tablet 6.25 mg PO BIDCM BP 06/30/22 [History Last Taken Unknown] clopidogrel 75 mg tablet 75 mg PO DAILY Blood Thinner 06/30/22 [History Last Taken Unknown] folic acid 1 mg tablet 1 mg PO BREAKFAST Supplement 06/30/22 [History Last Taken Unknown] ipratropium bromide 42 mcg (0.06 %) nasal spray 2 spray NASAL BID Check with primary doctor 06/30/22 [History Last Taken Unknown] linagliptin 5 mg tablet (Tradjenta) 5 mg PO DAILY Diabetes 06/30/22 [History Last Taken Unknown] menthol 0.44 %-zinc oxide 20.6 % topical ointment (Calmoseptine) 1 applic topica l BID Skin 06/30/22 [History Last Taken Unknown] methotrexate sodium 2.5 mg tablet 17.5 mg PO FR Psoriasis 06/30/22 [History Last Taken Unknown] potassium chloride 20 mEq tablet,extended release(part/cryst) (Klor-Con M) 20 meq PO DAILYCM Supplement 06/30/22 [History Last Taken Unknown] sennosides 8.6 mg-docusate sodium 50 mg tablet (Stool Softener-Stimulant Laxative) 1 tab PO BID Constipation 06/30/22 [History Last Taken Unknown] sodium chloride 0.65 % nasal spray aerosol (Deep Sea Nasal) 2 spray NASAL TID Congestion 06/30/22 [History Last Taken Unknown] tamsulosin 0.4 mg capsule 0.4 mg PO DAILY@1730 Retention 06/30/22 [History Last Taken Unknown] venlafaxine 75 mg tablet 150 mg PO DAILY Mood 06/30/22 [History Last Taken Unknown] insulin lispro 100 unit/mL subcutaneous pen (Humalog KwikPen (U-100) Insulin) 10 unit (0.1 mL) subcut TIDAC #0 mL 07/19/22 [Rx Last Taken Unknown] nutrition tx glu intol,lac-free,soy-fiber 0.06 gram-1.2 kcal/mL liquid (Glucerna 1.2 Mustapha) 120 ml PO 4X/DAY #0 mL 07/19/22 [Rx Last Taken Unknown] triamcinolone acetonide 0.1 % topical cream 1 applic topical DAILY 09/19/22 [History Last Taken Unknown] acetaminophen 500 mg tablet 1,000 mg PO Q8 PRN Pain 11/25/22 [History Last Taken Unknown] loratadine 10 mg tablet (Claritin) 10 mg PO DAILY 11/25/22 [History Last Taken Unknown] oxycodone 5 mg tablet 5 mg PO Q6H PRN PRN Pain Score 6-10 11/25/22 [History Last Taken Unknown] Allergy/AdvReac Type Severity Reaction Status Date / Time morphine Allergy PT UNSURE Verified 11/25/22 02:51 OF REACTION rivaroxaban [From Xarelto] Allergy Other Verified 11/25/22 02:51 Family History Mother CVA (cerebral vascular accident) Diabetes Heart disease Hypertension Father Diabetes Heart disease Pulmonary disease Surgical History History of back surgery Hx of CABG S/P peripheral artery bypass Status post right foot surgery Social History household members: spouse Smoking Status: Never smoker alcohol intake: never substance use type: does not use ROS ROS Narrative Pertinent positives and pertinent negatives as noted in HPI. All other systems were reviewed and are negative Vital Signs Vital Signs Vital Signs: 11/25/22 01:04 11/25/22 01:12 11/25/22 01:40 Temperature 96.9 F L Temperature Source Temporal Pulse Rate 92 74 Respiratory Rate 27 H 37 H Respiratory Effort Short of Breath Respiratory Depth Deep Respiratory Pattern Tachypnea Blood Pressure 97/67 97/74 Blood Pressure Mean 77 81 Pulse Ox 100 100 Oxygen Delivery Method Room Air Room Air Nasal Cannula Oxygen Flow Rate (L/min) 2 Fraction of Inspired Oxygen (FIO2) 11/25/22 02:00 11/25/22 02:42 11/25/22 03:00 Temperature 97.8 F Temperature Source Temporal Pulse Rate 68 64 75 Respiratory Rate 46 H 48 H 32 H Respiratory Effort Respiratory Depth Respiratory Pattern Blood Pressure 84/66 L 85/61 L 78/66 L Blood Pressure Mean 72 69 70 Pulse Ox 99 100 99 Oxygen Delivery Method Nasal Cannula Nasal Cannula Nasal Cannula Oxygen Flow Rate (L/min) 2 2 2 Fraction of Inspired Oxygen (FIO2) 11/25/22 04:00 11/25/22 04:08 11/25/22 05:31 Temperature 98.6 F 98.4 F Temperature Source Core Core Pulse Rate 66 65 60 Respiratory Rate 20 H 28 H 34 H Respiratory Effort Respiratory Depth Respiratory Pattern Tachypnea Blood Pressure 83/46 L 77/58 L Blood Pressure Mean 58 64 Pulse Ox 100 96 94 Oxygen Delivery Method Airvo Airvo Oxygen Flow Rate (L/min) Fraction of Inspired Oxygen (FIO2) 25 Weight Weight: 89.4 kg Body Mass Index (BMI) 29.9 Physical Exam Narrative Physical exam: General: Well-nourished, well-developed. Head: Normocephalic, atraumatic, no tenderness Eyes: Vision is grossly intact. EOMI ENT, no trauma, moist mucous membranes, no rhinorrhea Neck: Nontender, No thyromegaly. CVS: Regular rate and rhythm. S1-S2 present. No murmur, gallop or rub. Respiratory : With BiPAP/CPAP in nostrils. Tachypnea; clear to auscultation bilaterally Abdomen: Soft, nontender, nondistended, normal bowel sounds, no masses : Erythema in between inguinal folds. Back: Nontender, no CVA tenderness. Extremities: Bilateral lower extremity edema, left worse than right. Ulceration on left big toe and left second toe. Skin: Normal color, no trauma. Neuro: Alert, oriented, cranial nerves II through XII grossly intact. Psychiatry: Normal mood. Normal affect. Not depressed. Not anxious. Results Lab / Micro Data Result Diagrams: 11/25/22 01:33 11/25/22 01:33 Labs: Laboratory Results - last 24 hr 11/25/22 01:33: WBC 15.1 H, RBC 3.62 L, Hgb 12.4 L, Hct 40.2, MCV 111.0 H, MCH 34.3 H, MCHC 30.8 L, RDW Std Deviation 72.2 H, RDW Coeff of Melodie 18.0 H, Plt Count 138 L, MPV 10.9, Immature Gran % (Auto) 1.700 H, Neut % (Auto) 88.6 H, Lymph % (Auto) 5.7 L, [place] % (Auto) 3.5, Eos % (Auto) 0.0, Baso % (Auto) 0.5, Absolute Neuts (auto) 13.4 H, Absolute Lymphs (auto) 0.86, Nucleated RBC % 1.3, Platelet Estimate SLT DEC, Anisocytosis 1+, Macrocytosis 2+ 11/25/22 01:33: PT 20.3 H, INR 1.7, APTT 30.5 11/25/22 01:33: Sodium 136, Potassium 5.3 H, Chloride 110 H, Carbon Dioxide 15.0 L, Anion Gap 11, BUN 39 H, Creatinine 1.86 H, Estim Creat Clear Calc 34.73, Est GFR (MDRD) Af Amer 46 L, Est GFR (MDRD) Non-Af 38 L, BUN/Creatinine Ratio 21.0 H , Glucose 154 H, Calcium 8.8, Magnesium 2.5, Troponin I High Sens 48 11/25/22 01:33: B-Natriuretic Peptide 1613.6 H 11/25/22 01:33: Blood Type O POSITIVE, Antibody Screen NEGATIVE 11/25/22 02:30: Lactic Acid Cancelled 11/25/22 02:30: Procalcitonin 0.15 H 11/25/22 03:55: Troponin I High Sens 48 11/25/22 03:57: Urine Color Yellow, Urine Clarity Turbid, Urine pH 6.0, Ur Specific [place] 1.020, Urine Protein 100 H, Urine Glucose (UA) Normal, Urine Ketones 5 H, Urine Occult Blood 250 H, Urine Nitrite Positive H, Urine Bilirubin Negative, Urine Urobilinogen 1 H, Ur Leukocyte Esterase 500 H, Urine RBC 25-50 SEEN, Urine WBC >100 SEEN, Ur Squamous Epith Cells 0 SEEN, Urine Bacteria 4+, Urine Mucus 0 SEEN 11/25/22 04:00: Lactic Acid 5.9 H* ABG Data ABG results: ABG 11/25/22 03:57 Specimen Type ART Sample Site L Radial pH 7.35 Bicarbonate Actual 11.3 L Total CO2 12 Base Excess -14 L O2 Saturation 99 O2 % 25 ABG pCO2 20.7 L ABG pO2 130 H Martin Test Positive O2 Delivery Device Vapotherm Clinical Comments 60L 25% Radiology Impression Chest X-Ray 11/25/22 01:40 IMPRESSION: No acute findings in the chest. Electronically Signed: Minor Wolff MD at 1:53 EDT , Chest CT 11/25/22 02:21 IMPRESSION: Small pleural effusions and bibasilar atelectasis. No significant pulmonary edema. Electronically Signed: Minor Wolff MD at 3:21 EDT , Assessment & Plan Assessment/Plan (1) Insulin dependent diabetes mellitus: (2) Urinary tract infection: (3) Diabetes mellitus: PLAN: Plan Septic shock/acute respiratory failure The patient presented with septic shock due to (UTI) with acute sepsis related organ dysfunction as evidenced by (lactic acidosis; hypotension; requiring CPAP /BiPAP on presentation). SIRS criteria: Respiratory rate more than 20 WBC more than 12,000 (15,100) PCO2 less than 32 mmHg (20.7 on presentation) organ dysfunction: SBP less than 90 or MAP less than 65 Acute respiratory failure?patient required CPAP/BiPAP on presentation INR more than 1.5 (1.7 on presentation) Lactate more than 2 mmol/L (5.9 on presentation) Patient reports increased frequency of urination. With abnormal urinalysis. Urine nitrite positive urine leukocyte esterase elevated at 500; urine RBC 25- 50; and urine WBC more than 100. Started on vancomycin and Zosyn at the emergency department. Zosyn continued inpatient. ED doctor reports that ordering 2 L of normal saline bolus for patient's. Patient did not give full 30 MSP kilogram bolus secondary to bilateral pleural effusion and bilateral leg edema. Levophed started at the emergency department and continued. Trend lactic acid, CBC and BMP. Check magnesium and phosphorus. We will admit intensive care unit. Esl Tutor consulted. Dyspnea, bilateral lower extremity edema, elevated BNP, bilateral pleural effus ion Review of labs showed that BNP on presentation was 1,6013.6. Suspect heart failure likely right-sided heart failure. Echocardiogram ordered. Chest x-ray interpreted by radiologist as central vascular congestion. Chest x- ray was visualized independent interpreted and I agree with drug interpretation. Chest CT without contrast with small pleural effusions and bibasilar atelectasis and no significant pulmonary edema. Lasix not ordered as patient is seen septic shock. Diabetes mellitus Blood glucose is stable Hold home basal insulin as patient is at risk of hypoglycemia. Tradjenta continued. Accu-Chek correction scale insulin ordered. Cardiac and diabetic diet ordered. Intertrigo of groin Nystatin powder ordered. DVT prophylaxis Subcutaneous Lovenox ordered. Sepsis Attestation Sepsis Alert: Yes Sepsis Attestation: Agree w/Sepsis Date exam was performed: 11/25/22 Time exam was performed: 06:29 Possible Source of Sepsis: Genitourinary Sepsis Organ Dysfunction Criteria Present: SBP < 90 mmHg or MAP < 65 mmHg, INR > 1.5 or aPTT > 60 sec, Lactic Acid > 2 mmol/L and Serum CO2 < 20 mmol/L (on BMP) Fluid Resuscitation Fluid resuscitation indicated?: Yes Fluid Resuscitation ordered: Lesser volume fluid bolus ordered Amount of fluid ordered: 2,000 Reason for lesser fluid bolus:: Concern for fluid overload Sepsis Note Date exam was performed: 11/25/22 Time exam was performed: 06:45 Sepsis Attestation: Sepsis re-evaluation was performed Response to fluids: Vasopressors started Charges/Coding Visit Charges Inpatient E&M: 42771 Init Hosp L3
--- NOTE | 2022-11-25 06:36 | EX.ED.DYSGE1 ---
HPI History of Present Illness Chief Complaint: Shortness of Breath Narrative Narrative: Patient is a 72-year-old male from the group home with past medical history of insulin-dependent diabetes diabetic foot ulcers/osteomyelitis and generalized debility. Reportedly he has been complaining of shortness of breath for multiple weeks but group home felt that his shortness of breath increased drastically over the last few hours and secondary to his EMS was called and patient was brought in for evaluation. 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 Erectile dysfunction Failure to thrive Fatigue Foot drop, left foot History of multiple strokes History of right common carotid artery stent placement Hyperlipidemia Hypertension Hypertension Insomnia LV (left ventricular) mural thrombus JENNIFER (obstructive sleep apnea) 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 Psoriasis Psoriatic arthritis Psoriatic arthritis Stroke Type 2 diabetes mellitus with diabetic polyneuropathy Home Medications arginine 7 gram-glutam 7 gram-CaHMB 1.5 [id number] oral pwd pkt (Singh (with collagen)) 1 packet PO BIDCM Supplement 06/30/22 [History Last Taken Unknown] atorvastatin 10 mg tablet 10 mg PO QHS Cholesterol 06/30/22 [History Last Taken Unknown] bisacodyl 10 mg rectal suppository 10 mg AR .PRN X 1 PRN Constipation #0 ea 06/30/22 [Rx Last Taken Unknown] bupropion HCl 150 mg 24 hr tablet, extended release 150 mg PO DAILY Mood 06/30/22 [History Last Taken Unknown] carvedilol 6.25 mg tablet 6.25 mg PO BIDCM BP 06/30/22 [History Last Taken Unknown] clopidogrel 75 mg tablet 75 mg PO DAILY Blood Thinner 06/30/22 [History Last Taken Unknown] folic acid 1 mg tablet 1 mg PO BREAKFAST Supplement 06/30/22 [History Last Taken Unknown] ipratropium bromide 42 mcg (0.06 %) nasal spray 2 spray NASAL BID Check with primary doctor 06/30/22 [History Last Taken Unknown] linagliptin 5 mg tablet (Tradjenta) 5 mg PO DAILY Diabetes 06/30/22 [History Last Taken Unknown] menthol 0.44 %-zinc oxide 20.6 % topical ointment (Calmoseptine) 1 applic topical BID Skin 06/30/22 [History Last Taken Unknown] methotrexate sodium 2.5 mg tablet 17.5 mg PO FR Psoriasis 06/30/22 [History Last Taken Unknown] potassium chloride 20 mEq tablet,extended release(part/cryst) (Klor-Con M) 20 meq PO DAILYCM Supplement 06/30/22 [History Last Taken Unknown] sennosides 8.6 mg-docusate sodium 50 mg tablet (Stool Softener-Stimulant Laxative) 1 tab PO BID Constipation 06/30/22 [History Last Taken Unknown] sodium chloride 0.65 % nasal spray aerosol (Deep Sea Nasal) 2 spray NASAL TID Congestion 06/30/22 [History Last Taken Unknown] tamsulosin 0.4 mg capsule 0.4 mg PO DAILY@1730 Retention 06/30/22 [History Last Taken Unknown] venlafaxine 75 mg tablet 150 mg PO DAILY Mood 06/30/22 [History Last Taken Unknown] insulin lispro 100 unit/mL subcutaneous pen (Humalog KwikPen (U-100) Insulin) 10 unit (0.1 mL) subcut TIDAC #0 mL 07/19/22 [Rx Last Taken Unknown] nutrition tx glu intol,lac-free,soy-fiber 0.06 gram-1.2 kcal/mL liquid (Glucerna 1.2 Mustapha) 120 ml PO 4X/DAY #0 mL 07/19/22 [Rx Last Taken Unknown] triamcinolone acetonide 0.1 % topical cream 1 applic topical DAILY 09/19/22 [History Last Taken Unknown] acetaminophen 500 mg tablet 1,000 mg PO Q8 PRN Pain 11/25/22 [History Last Taken Unknown] loratadine 10 mg tablet (Claritin) 10 mg PO DAILY 11/25/22 [History Last Taken Unknown] oxycodone 5 mg tablet 5 mg PO Q6H PRN PRN Pain Score 6-10 11/25/22 [History Last Taken Unknown] Allergy/AdvReac Type Severity Reaction Status Date / Time morphine Allergy PT UNSURE Verified 11/25/22 02:51 OF REACTION rivaroxaban [From Xarelto] Allergy Other Verified 11/25/22 02:51 Family History Mother CVA (cerebral vascular accident) Diabetes Heart disease Hypertension Father Diabetes Heart disease Pulmonary disease Surgical History History of back surgery Hx of CABG S/P peripheral artery bypass Status post right foot surgery Social History household members: spouse Smoking Status: Never smoker alcohol intake: never substance use type: does not use ROS ROS ED Review of Systems ROS Unobtainable: due to mental status EXAM Physical Exam Const Vital Signs: 11/25/22 01:04 11/25/22 01:12 11/25/22 01:40 Temperature 96.9 F L Temperature Source Temporal Pulse Rate 92 74 Respiratory Rate 27 H 37 H Respiratory Effort Short of Breath Respiratory Depth Deep Respiratory Pattern Tachypnea Blood Pressure 97/67 97/74 Blood Pressure Mean 77 81 Pulse Ox 100 100 Oxygen Delivery Method Room Air Room Air Nasal Cannula Oxygen Flow Rate (L/min) 2 Fraction of Inspired Oxygen (FIO2) 11/25/22 02:00 11/25/22 02:42 11/25/22 03:00 Temperature 97.8 F Temperature Source Temporal Pulse Rate 68 64 75 Respiratory Rate 46 H 48 H 32 H Respiratory Effort Respiratory Depth Respiratory Pattern Blood Pressure 84/66 L 85/61 L 78/66 L Blood Pressure Mean 72 69 70 Pulse Ox 99 100 99 Oxygen Delivery Method Nasal Cannula Nasal Cannula Nasal Cannula Oxygen Flow Rate (L/min) 2 2 2 Fraction of Inspired Oxygen (FIO2) 11/25/22 04:00 11/25/22 04:08 11/25/22 05:31 Temperature 98.6 F 98.4 F Temperature Source Core Core Pulse Rate 66 65 60 Respiratory Rate 20 H 28 H 34 H Respiratory Effort Respiratory Depth Respiratory Pattern Tachypnea Blood Pressure 83/46 L 77/58 L Blood Pressure Mean 58 64 Pulse Ox 100 96 94 Oxygen Delivery Method Airvo Airvo Oxygen Flow Rate (L/min) Fraction of Inspired Oxygen (FIO2) 25 Positive well developed and unkempt General Appearance ED: unkempt and well developed HEENT Reports dry mucous membranes HEENT Narrative: No tongue or lip swelling no oral lesions no airway edema or compromise Mucous membranes are dry and tacky Mouth ED: Yes dry mucous membranes Mouth: dry mucous membranes Eyes PERRL and EOMs intact bilaterally General Eye ED: Negative for scleral icterus Neck supple and no JVD Neck Narrative: No nuchal rigidity noted Chest Wall palpation of chest normal Chest Narrative: No bony deformity or crepitance of the chest wall Resp Resp Narrative: Patient is in mild to moderate respiratory distress with tachypnea breathing 40-50 times a minute. Breath sounds are diminished throughout but overall clear to auscultation. Cardio regular rate and regular rhythm Rate: other Other Details: Radial pulses are plus 2 out of 4 bilaterally are equal and symmetric GI normal to inspection, nondistended, normoactive bowel sounds, non-tender, non-distended and no masses GI Narrative: No pulsatile mass or fluid wave noted Auscultation: normoactive bowel sounds Palpation: soft Extremity Extremity Narrative: Patient has +3 pitting edema to the bilateral lower extremities that extends from the ankle region to just below the knee. Patient has a PFO in place to the left lower leg. Patient has 2 small diabetic ulcers 1 along the left great toe and 1 along the left second toe without secondary changes to suggest infection. Neuro CN's II-XII intact bilaterally Neuro Narrative: Patient is obtunded with GCS of 13. He will wake to voice but then quickly fall back asleep. Despite this he is protecting his airway and there is no obvious focal neurologic deficit Sensorium / Orientation: orientation impaired Psych Psych Narrative: Patient is obtunded with a flat affect Appearance: unkempt Skin Skin Narrative: Patient has erythema with overlying white hue in the inguinal folds of the genital region consistent with cutaneous candidiasis. No secondary changes to suggest Duc's gangrene Chronic diabetic ulcers to the left foot as documented above. MDM MDM MDM Narrative Medical decision making narrative: Patient presented to the ER afebrile but he was extremely tachypneic breathing anywhere from 30-50 times a minute and his mental status was diminished. Despite this he was still protecting his airway and there is no need for intubation. Based on the respiratory distress differential diagnosis includes pneumonia versus pleural effusion versus pneumothorax. The derangement mental status also is possible for hypoxia or hypercarbia or secondary to an infectious process such as UTI. Initially patient was worked up regarding potential acute coronary syndrome or pneumonia or congestive heart failure as a cause of his worsening shortness of breath. The patient's proBNP has elevated from approximately 125-1600 which is concerning for congestive heart failure exacerbation. Despite this elevation his x-ray revealed no obvious fluid and therefore CT was obtained which showed bilateral pleural effusions but these were small in nature and there was no significant pulmonary vein edema. Patient has mild elevation to his creatinine but has been hypotensive and therefore Lasix cannot be given. Based on the patient's elevated white count I did elect to perform further testing to check for source of infection as the lungs were not providing a obvious cause. A cath urine sample was obtained and did show +4 bacteria with greater than 100 white cells and his white blood cell count is elevated at 15 and his lactic acid is elevated at 5.6 consistent/correlating with urosepsis. Patient had blood cultures and urine cultures obtained he was started on vancomycin and Zosyn for broad-spectrum cover. He was given a total of 2 L of fluid. Please note that 30 mL/kg would equate to just over 2600 mL but as he has increased peripheral edema and increased proBNP and pleural effusions on his chest CT as well as increased work of breathing I did not feel it was prudent to give the full 30/kg. Patient had a right internal jugular central line placed as documented below secondary to the persistent hypotension despite fluid resuscitation. Following this his blood pressure did improve with the help of Levophed but as his work-up is showing changes consistent with urosepsis he will be admitted to the ICU for further care Patient had a right internal jugular central line placed. The area was cleaned and prepped in sterile fashion with chlorhexidine. The surrounding tissue was anesthetized with 5 mils of 1% lidocaine without epinephrine local fashion. An ultrasound was used to visualize the internal jugular vein. The vein was cannulated and there was return of dark red nonpulsatile blood. A guidewire thread without difficulty. The central line was placed and each port areli and flushed without difficulty as well. Patient tolerated procedure well without complication. History & Record Review Discussion w/independent historian: EMS personnel Lab Data Attestation: I reviewed the patient's lab results. Labs: Laboratory Results - last 24 hr 11/25/22 11/25/22 11/25/22 01:33 01:33 01:33 WBC 15.1 H RBC 3.62 L Hgb 12.4 L Hct 40.2 MCV 111.0 H MCH 34.3 H MCHC 30.8 L RDW Std Deviation 72.2 H RDW Coeff of Melodie 18.0 H Plt Count 138 L MPV 10.9 Immature Gran % (Auto) 1.700 H Neut % (Auto) 88.6 H Lymph % (Auto) 5.7 L [place] % (Auto) 3.5 Eos % (Auto) 0.0 Baso % (Auto) 0.5 Absolute Neuts (auto) 13.4 H Absolute Lymphs (auto) 0.86 Nucleated RBC % 1.3 Platelet Estimate SLT DEC Anisocytosis 1+ Macrocytosis 2+ PT 20.3 H INR 1.7 APTT 30.5 Sodium 136 Potassium 5.3 H Chloride 110 H Carbon Dioxide 15.0 L Anion Gap 11 BUN 39 H Creatinine 1.86 H Estim Creat Clear Calc 34.73 Est GFR (MDRD) Af Amer 46 L Est GFR (MDRD) Non-Af 38 L BUN/Creatinine Ratio 21.0 H Glucose 154 H Lactic Acid Calcium 8.8 Magnesium 2.5 Troponin I High Sens 48 B-Natriuretic Peptide Procalcitonin Urine Color Urine Clarity Urine pH Ur Specific [place] Urine Protein Urine Glucose (UA) Urine Ketones Urine Occult Blood Urine Nitrite Urine Bilirubin Urine Urobilinogen Ur Leukocyte Esterase Urine RBC Urine WBC Ur Squamous Epith Cells Urine Bacteria Urine Mucus Blood Type Antibody Screen 11/25/22 11/25/22 11/25/22 01:33 01:33 02:30 WBC RBC Hgb Hct MCV MCH MCHC RDW Std Deviation RDW Coeff of Melodie Plt Count MPV Immature Gran % (Auto) Neut % (Auto) Lymph % (Auto) [place] % (Auto) Eos % (Auto) Baso % (Auto) Absolute Neuts (auto) Absolute Lymphs (auto) Nucleated RBC % Platelet Estimate Anisocytosis Macrocytosis PT INR APTT Sodium Potassium Chloride Carbon Dioxide Anion Gap BUN Creatinine Estim Creat Clear Calc Est GFR (MDRD) Af Amer Est GFR (MDRD) Non-Af BUN/Creatinine Ratio Glucose Lactic Acid Cancelled Calcium Magnesium Troponin I High Sens B-Natriuretic Peptide 1613.6 H Procalcitonin Urine Color Urine Clarity Urine pH Ur Specific [place] Urine Protein Urine Glucose (UA) Urine Ketones Urine Occult Blood Urine Nitrite Urine Bilirubin Urine Urobilinogen Ur Leukocyte Esterase Urine RBC Urine WBC Ur Squamous Epith Cells Urine Bacteria Urine Mucus Blood Type O POSITIVE Antibody Screen NEGATIVE 11/25/22 11/25/22 11/25/22 02:30 03:55 03:57 WBC RBC Hgb Hct MCV MCH MCHC RDW Std Deviation RDW Coeff of Melodie Plt Count MPV Immature Gran % (Auto) Neut % (Auto) Lymph % (Auto) [place] % (Auto) Eos % (Auto) Baso % (Auto) Absolute Neuts (auto) Absolute Lymphs (auto) Nucleated RBC % Platelet Estimate Anisocytosis Macrocytosis PT INR APTT Sodium Potassium Chloride Carbon Dioxide Anion Gap BUN Creatinine Estim Creat Clear Calc Est GFR (MDRD) Af Amer Est GFR (MDRD) Non-Af BUN/Creatinine Ratio Glucose Lactic Acid Calcium Magnesium Troponin I High Sens 48 B-Natriuretic Peptide Procalcitonin 0.15 H Urine Color Yellow Urine Clarity Turbid Urine pH 6.0 Ur Specific [place] 1.020 Urine Protein 100 H Urine Glucose (UA) Normal Urine Ketones 5 H Urine Occult Blood 250 H Urine Nitrite Positive H Urine Bilirubin Negative Urine Urobilinogen 1 H Ur Leukocyte Esterase 500 H Urine RBC 25-50 SEEN Urine WBC >100 SEEN Ur Squamous Epith Cells 0 SEEN Urine Bacteria 4+ Urine Mucus 0 SEEN Blood Type Antibody Screen 11/25/22 04:00 WBC RBC Hgb Hct MCV MCH MCHC RDW Std Deviation RDW Coeff of Melodie Plt Count MPV Immature Gran % (Auto) Neut % (Auto) Lymph % (Auto) [place] % (Auto) Eos % (Auto) Baso % (Auto) Absolute Neuts (auto) Absolute Lymphs (auto) Nucleated RBC % Platelet Estimate Anisocytosis Macrocytosis PT INR APTT Sodium Potassium Chloride Carbon Dioxide Anion Gap BUN Creatinine Estim Creat Clear Calc Est GFR (MDRD) Af Amer Est GFR (MDRD) Non-Af BUN/Creatinine Ratio Glucose Lactic Acid 5.9 H* Calcium Magnesium Troponin I High Sens B-Natriuretic Peptide Procalcitonin Urine Color Urine Clarity Urine pH Ur Specific [place] Urine Protein Urine Glucose (UA) Urine Ketones Urine Occult Blood Urine Nitrite Urine Bilirubin Urine Urobilinogen Ur Leukocyte Esterase Urine RBC Urine WBC Ur Squamous Epith Cells Urine Bacteria Urine Mucus Blood Type Antibody Screen ABG Data ABG results: ABG 11/25/22 03:57 Specimen Type ART Sample Site L Radial pH 7.35 Bicarbonate Actual 11.3 L Total CO2 12 Base Excess -14 L O2 Saturation 99 O2 % 25 ABG pCO2 20.7 L ABG pO2 130 H Martin Test Positive O2 Delivery Device Vapotherm Clinical Comments 60L 25% Radiography Diagnostic Testing: Clinical Impression(s) from Imaging Studies Chest X-Ray 11/25/22 01:40 IMPRESSION: No acute findings in the chest. Electronically Signed: Minor Wolff MD at 1:53 EDT Reading Location ID and State: [facility] / [place] Tel , Service support , Chest CT 11/25/22 02:21 IMPRESSION: Small pleural effusions and bibasilar atelectasis. No significant pulmonary edema. Electronically Signed: Minor Wolff MD at 3:21 EDT Reading Location ID and State: [facility] / [place] Tel , Service support , Single view chest x-ray as interpreted by the emergency medicine physician reveals no acute infiltrate pneumothorax or pleural effusion Repeat 1 view chest x-ray after central line placement as interpreted by the emergency medicine physician reveals appropriate placement of the central line without pneumothorax Discharge Plan Dx/Rx/DC Orders Clinical Impression: Sepsis, Urinary tract infection, Insulin dependent diabetes mellitus, Generalized muscle weakness, Pleural effusion due to CHF (congestive heart failure) Disposition Disposition: Acute Care [facility]
--- NOTE | 2022-11-25 06:55 | RAD_ITS ---
EXAM: XR CHEST, 1 VIEW CLINICAL INDICATION: s/p central line placement TECHNIQUE: Frontal view of the chest. COMPARISON: Portable exam from same date FINDINGS: LUNGS AND PLEURAL SPACES: Central pulmonary vascular congestion. No pneumothorax. No effusion. HEART: Unremarkable. Cardiac silhouette not enlarged. MEDIASTINUM: Surgical changes of the mediastinum. BONES/JOINTS: Degenerative changes of the spine and shoulders. SOFT TISSUES: Unremarkable. TUBES, LINES AND DEVICES: Right jugular central line with tip just above the cavoatrial junction. RAD/Chest 1 View (Portable) IMPRESSION: 1. Central pulmonary vascular congestion. 2. Right jugular central line with tip just above the cavoatrial junction. Electronically Signed: Minor Wolff MD at 7:48 EDT ,
[2022-11-25 08:02] LABS: Reflex Lactate? Y
--- NOTE | 2022-11-25 08:26 | ECHOCS_ITS ---
Reason For Study: DYSPNEA Procedure This was a 2D Doppler, Color Flow transthoracic echocardiogram. The study was technically difficult. Contrast injection was performed. Exam performed portable in ICU/CCU. Left Ventricle Normal LV size. Small LV apical thrombus noted which was also reported in prior studies. The estimated ejection fraction is 35 %. There is evidence of diastolic dysfunction. Hypokinesis of the apex, anterior and posterior anderson. Right Ventricle Normal RV size. Normal systolic function. Atria The left atrium is moderately enlarged. Normal right atrium. No doppler evidence for ASD. Mitral Valve There is no mitral valve stenosis. Moderately severe (3+) mitral valve insufficiency. Tricuspid Valve There is no tricuspid stenosis. Mild to moderate (1-2+) tricuspid valve insufficiency. Pulmonary artery systolic pressure is 40-45 mmHg. Aortic Valve Trisinus/trileaflet aortic valve. Aortic sclerosis, no stenosis. There is no aortic stenosis. No aortic valve insufficiency. Pulmonic Valve There is no pulmonic valvular stenosis. No pulmonic valve insufficiency. Great Vessels Normal aortic root. Pericardium/Pleural No pericardial effusion. Medication Diluted definity 2ml given slow IV push to enhance endocardial definition. MMode/2D Measurements & Calculations LVIDd: 5.9 cm IVSd: 1.3 cm LVOT diam: 2.0 cm LVIDs: 4.5 cm LVPWd: 1.2 cm FS: 24.3 % LVOT area: 3.1 cm2 Ao root diam: 2.8 cm LAV(MOD-sp4): 70.3 ml LVAd ap4: 44.1 cm2 LVLd ap4: 9.8 cm EDV(MOD-sp4): 159.8 ml EDV(sp4-el): 167.7 ml LVAs ap4: 39.7 cm2 LVLs ap4: 9.6 cm ESV(MOD-sp4): 132.8 ml ESV(sp4-el): 138.9 ml EF(MOD-sp4): 16.9 % EF(sp4-el): 17.2 % SV(MOD-sp4): 27.0 ml SV(sp4-el): 28.8 ml LA A4 area: 22.5 cm2 LA dimension(2D): 4.5 cm RA A4 area: 17.1 cm2 Time Measurements MV dec time: 0.18 sec Doppler Measurements & Calculations MV E max jay: 92.6 cm/sec Lat Peak E' Jay: 6.0 cm/sec Med Peak E' Jay: 4.5 cm/sec MV A max jay: 46.9 cm/sec E/E' lat: 15.6 E/E' med: 20.6 MV E/A: 2.0 MV V2 max: 116.7 cm/sec MV dec slope: 553.3 cm/sec2 Ao V2 max: 173.3 cm/sec MV max P.5 mmHg Ao max P.0 mmHg MV V2 mean: 64.5 cm/sec Ao V2 mean: 136.7 cm/sec MV mean P.0 mmHg Ao mean P.0 mmHg MV V2 VTI: 37.1 cm Ao V2 VTI: 33.8 cm MVA(VTI): 1.4 cm2 AV (velocity ratio): 0.49 HÉCTOR(I,D): 1.5 cm2 HÉCTOR(V,D): 1.7 cm2 LV V1 max: 95.3 cm/sec MR max jay: 465.7 cm/sec SV(LVOT): 51.8 ml LV V1 max P.7 mmHg MR max P.8 mmHg LV V1 mean P.9 mmHg MR mean jay: 372.3 cm/sec LV V1 mean: 64.9 cm/sec MR mean P.1 mmHg LV V1 VTI: 16.7 cm MR VTI: 148.2 cm PA V2 max: 63.0 cm/sec TR max jay: 294.2 cm/sec PA V2 mean: 45.4 cm/sec TR max P.6 mmHg ECHO/Echo Complete W/ Contrast Interpretation Summary The estimated ejection fraction is 35 %. There is evidence of diastolic dysfunction. The left atrium is moderately enlarged. Moderately severe (3+) mitral valve insufficiency. Mild to moderate (1-2+) tricuspid valve insufficiency. Small LV apical thrombus noted which was also reported in prior studies Hypokinesis of the apex, anterior and posterior anderson Ordering Physician: Sina Caldera Physician: Bryce Camacho Performed By: Sommer Hernandez RCS
--- NOTE | 2022-11-25 08:42 | ED.RN ---
11/25/22@0825- REPORT CALLED TO MARLYS NEUMANN. TLC DRESSING CHANGED PRIOR TO TRANSPORT TO CVICU 201.
[2022-11-25 09:03] LABS: Lactic Acid 4.4 mmol/L (0.4-1.9)
--- NOTE | 2022-11-25 09:03 | EX.PCM.CONCC ---
Assessment & Plan Assessment/Plan (1) Septic shock: (2) Urinary tract infection: (3) Insulin dependent diabetes mellitus: PLAN: Plan RECOMMENDATIONS: 1. Continue empiric antibiotics pending cultures 2. Monitor oxygen saturations closely. Hold on additional fluids 3. Follow blood sugars closely 4. Continue anticoagulation given history of LV thrombus 5. Hold antihypertensives IMPRESSIONS: 1. Septic shock secondary to UTI Patient with a urinalysis suggestive of UTI. Patient does have significant hypotension with an elevation in creatinine indicating endorgan damage. Patient's tachypnea is likely compensatory secondary to elevated lactic acid. Patient did not receive full fluid resuscitation, but does have signs and symptoms of congestive heart failure, so this is likely reasonable. Patient does have some skin wounds, but these do not appear to be actively inflamed at this time. Low clinical suspicion for a skin source 2. Acute on chronic CHF/history of mural thrombus Patient does have a significant elevated BNP with bilateral pleural effusions and lower extremity edema. Patient likely should not receive diuretics at this time given problem #1. However, ongoing fluid restriction would be appropriate. Use pressors as necessary. Patient likely will benefit from Lasix after stabilization. 3. Insulin-dependent diabetes mellitus Monitor blood sugars appropriately. Sliding scale insulin is likely okay. Doubt patient will have significant p.o. intake in the next 24 hours. 4. Debility/multiple falls/history of wounds secondary to PVD/rheumatoid arthritis Complicates care, management, recovery and prognosis. Consider holding methotrexate given problem #1. TIME: 35 minutes critical care time spent addressing patient's septic shock, CHF, diabetes mellitus, review of all data and collaboration with care team HPI Consult Data Date of Consult: 11/25/22 HPI Narrative Reason for Consultation: Sepsis HPI Narrative: TRAM RIVERA is a 72 M, with past medical history listed below, who presents to [facility] on 11/25/2022 secondary to generalized weakness and shortness of breath. Patient reportedly lives at a [facility] and is not felt right for weeks. Patient states his shortness of breath has drastically gotten worse over the last 24 to 48 hours. Patient was then brought in for evaluation. Patient was resting comfortably and would open his eyes to voice, but quickly fell back asleep. In the ER, patient was afebrile, but tachypneic as high as 47 breaths/min. Patient was initially on nasal cannula, but then could be transition to room air. Patient was noted to be significantly hypotensive with a blood pressure of 77/58. Patient did not have any tachycardia, but is on beta-blockers at baseline. Patient also takes methotrexate. Laboratory data in the ER showed a white blood cell count of 15.1, hemoglobin of 12.4 and platelets of 138. INR was elevated at 1.7, potassium of 5.3 and creatinine at 1.86. Bicarbonate was low at 15. Initial lactic acid was elevated at 5.9 and BNP was 1613. Procalcitonin was elevated and UA was suggestive of urinary tract infection. Chest x-ray was unremarkable and a subsequent CT scan showed only bilateral pleural effusions, right greater than left with some compressive atelectasis. Given concern for sepsis, patient was given 2 L of IV fluids. Patient was not given the full 30 cc/kg secondary to concerns for CHF. Patient did receive vancomycin and Zosyn for broad-spectrum coverage. Patient remained hypotensive, so central line was placed and patient was initiated on pressors. Given need for pressors, patient was admitted to the intensive care unit for further evaluation. Patient is not able to provide much additional history at this time. Patient states he has not felt well for weeks. Patient does have a history of lower extremity wounds, but states this has been well controlled recently. Patient is not able to provide a history of recurrent UTIs, but is on immunosuppression secondary to rheumatoid arthritis. Patient has had issues with osteomyelitis in the past. Patient is not interested in providing a review of systems at this time. 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 Erectile dysfunction Failure to thrive Fatigue Foot drop, left foot History of multiple strokes History of right common carotid artery stent placement Hyperlipidemia Hypertension Hypertension Insomnia LV (left ventricular) mural thrombus JENNIFER (obstructive sleep apnea) 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 Psoriasis Psoriatic arthritis Psoriatic arthritis Stroke Type 2 diabetes mellitus with diabetic polyneuropathy Home Medications arginine 7 gram-glutam 7 gram-CaHMB 1.5 [id number]-[id number]-min oral pwd pkt (Singh (with collagen)) 1 packet PO BIDCM Supplement 06/30/22 [History Last Taken Unknown] atorvastatin 10 mg tablet 10 mg PO QHS Cholesterol 06/30/22 [History Last Taken Unknown] bisacodyl 10 mg rectal suppository 10 mg MD .PRN X 1 PRN Constipation #0 ea 06/30/22 [Rx Last Taken Unknown] bupropion HCl 150 mg 24 hr tablet, extended release 150 mg PO DAILY Mood 06/30/22 [History Last Taken Unknown] carvedilol 6.25 mg tablet 6.25 mg PO BIDCM BP 06/30/22 [History Last Taken Unknown] clopidogrel 75 mg tablet 75 mg PO DAILY Blood Thinner 06/30/22 [History Last Taken Unknown] folic acid 1 mg tablet 1 mg PO BREAKFAST Supplement 06/30/22 [History Last Taken Unknown] ipratropium bromide 42 mcg (0.06 %) nasal spray 2 spray NASAL BID Check with primary doctor 06/30/22 [History Last Taken Unknown] linagliptin 5 mg tablet (Tradjenta) 5 mg PO DAILY Diabetes 06/30/22 [History Last Taken Unknown] menthol 0.44 %-zinc oxide 20.6 % topical ointment (Calmoseptine) 1 applic topical BID Skin 06/30/22 [History Last Taken Unknown] methotrexate sodium 2.5 mg tablet 17.5 mg PO FR Psoriasis 06/30/22 [History Last Taken Unknown] potassium chloride 20 mEq tablet,extended release(part/cryst) (Klor-Con M) 20 meq PO DAILYCM Supplement 06/30/22 [History Last Taken Unknown] sennosides 8.6 mg-docusate sodium 50 mg tablet (Stool Softener-Stimulant Laxative) 1 tab PO BID Constipation 06/30/22 [History Last Taken Unknown] sodium chloride 0.65 % nasal spray aerosol (Deep Sea Nasal) 2 spray NASAL TID Congestion 06/30/22 [History Last Taken Unknown] tamsulosin 0.4 mg capsule 0.4 mg PO DAILY@1730 Retention 06/30/22 [History Last Taken Unknown] venlafaxine 75 mg tablet 150 mg PO DAILY Mood 06/30/22 [History Last Taken Unknown] insulin lispro 100 unit/mL subcutaneous pen (Humalog KwikPen (U-100) Insulin) 10 unit (0.1 mL) subcut TIDAC #0 mL 07/19/22 [Rx Last Taken Unknown] nutrition tx glu intol,lac-free,soy-fiber 0.06 gram-1.2 kcal/mL liquid (Glucerna 1.2 Mustapha) 120 ml PO 4X/DAY #0 mL 07/19/22 [Rx Last Taken Unknown] triamcinolone acetonide 0.1 % topical cream 1 applic topical DAILY 09/19/22 [History Last Taken Unknown] acetaminophen 500 mg tablet 1,000 mg PO Q8 PRN Pain 11/25/22 [History Last Taken Unknown] loratadine 10 mg tablet (Claritin) 10 mg PO DAILY 11/25/22 [History Last Taken Unknown] oxycodone 5 mg tablet 5 mg PO Q6H PRN PRN Pain Score 6-10 11/25/22 [History Last Taken Unknown] Allergy/AdvReac Type Severity Reaction Status Date / Time morphine Allergy PT UNSURE Verified 11/25/22 02:51 OF REACTION rivaroxaban [From Xarelto] Allergy Other Verified 11/25/22 02:51 Family History Mother CVA (cerebral vascular accident) Diabetes Heart disease Hypertension Father Diabetes Heart disease Pulmonary disease Surgical History History of back surgery Hx of CABG S/P peripheral artery bypass Status post right foot surgery Social History household members: spouse Smoking Status: Never smoker alcohol intake: never substance use type: does not use ROS ROS Narrative See HPI Physical Exam Const Constitutional Narrative: RASS -1. Pale appearance. Appears stated age. Some tachypnea without accessory muscle use HEENT normocephalic HEENT Narrative: Dry mucous membranes Eyes PERRL, EOMs intact bilaterally and conjunctivae normal Neck full ROM Neck Narrative: JVD noted General: trachea midline Resp Effort and Inspection: tachypneic Auscultation: Negative for rales, rhonchi or wheezes Cardio regular rate, regular rhythm, S1 normal heart sound, S2 normal heart sound, no murmurs, no rub and no gallops GI normal to inspection, nondistended, normoactive bowel sounds Extremity General Extremity: edema bilateral (2+ bilateral) lower extremity Skin Skin Narrative: Superficial ulceration noted on the anterior left foot, but no surrounding erythema. Yeast noted in the groin. Neuro oriented x3, CN's II-XII intact bilaterally, moves all extremities and no focal motor deficits Medical Records Data Attestation: I reviewed the patient's medical records Lab / Micro Data Attestation: I reviewed the patient's lab results. Result Diagrams: 11/25/22 01:33 11/25/22 01:33 Labs: Laboratory Results - last 24 hr 11/25/22 01:33: WBC 15.1 H, RBC 3.62 L, Hgb 12.4 L, Hct 40.2, MCV 111.0 H, MCH 34.3 H, MCHC 30.8 L, RDW Std Deviation 72.2 H, RDW Coeff of Melodie 18.0 H, Plt Count 138 L, MPV 10.9, Immature Gran % (Auto) 1.700 H, Neut % (Auto) 88.6 H, Lymph % (Auto) 5.7 L, [place] % (Auto) 3.5, Eos % (Auto) 0.0, Baso % (Auto) 0.5, Absolute Neuts (auto) 13.4 H, Absolute Lymphs (auto) 0.86, Nucleated RBC % 1.3, Platelet Estimate SLT DEC, Anisocytosis 1+, Macrocytosis 2+ 11/25/22 01:33: PT 20.3 H, INR 1.7, APTT 30.5 11/25/22 01:33: Sodium 136, Potassium 5.3 H, Chloride 110 H, Carbon Dioxide 15.0 L, Anion Gap 11, BUN 39 H, Creatinine 1.86 H, Estim Creat Clear Calc 34.73, Est GFR (MDRD) Af Amer 46 L, Est GFR (MDRD) Non-Af 38 L, BUN/Creatinine Ratio 21.0 H, Glucose 154 H, Calcium 8.8, Magnesium 2.5, Troponin I High Sens 48 11/25/22 01:33: B-Natriuretic Peptide 1613.6 H 11/25/22 01:33: Blood Type O POSITIVE, Antibody Screen NEGATIVE 11/25/22 02:30: Lactic Acid Cancelled 11/25/22 02:30: Procalcitonin 0.15 H 11/25/22 03:55: Troponin I High Sens 48 11/25/22 03:57: Urine Color Yellow, Urine Clarity Turbid, Urine pH 6.0, Ur Specific Crump 1.020, Urine Protein 100 H, Urine Glucose (UA) Normal, Urine Ketones 5 H, Urine Occult Blood 250 H, Urine Nitrite Positive H, Urine Bilirubin Negative, Urine Urobilinogen 1 H, Ur Leukocyte Esterase 500 H, Urine RBC 25-50 SEEN, Urine WBC >100 SEEN, Ur Squamous Epith Cells 0 SEEN, Urine Bacteria 4+, Urine Mucus 0 SEEN 11/25/22 04:00: Lactic Acid 5.9 H* ABG Data ABG results: ABG 11/25/22 03:57 Specimen Type ART Sample Site L Radial pH 7.35 Bicarbonate Actual 11.3 L Total CO2 12 Base Excess -14 L O2 Saturation 99 O2 % 25 ABG pCO2 20.7 L ABG pO2 130 H Martin Test Positive O2 Delivery Device Vapotherm Clinical Comments 60L 25% Attestation: I personally reviewed and interpreted this ABG as follows: (Partially compensated metabolic acidosis with increased AA gradient) Radiology Impression Chest X-Ray 11/25/22 01:40 IMPRESSION: No acute findings in the chest. Electronically Signed: Minor Wolff MD at 1:53 EDT Reading Location ID and State: [facility] / [place] Tel , Service support , Chest CT 11/25/22 02:21 IMPRESSION: Small pleural effusions and bibasilar atelectasis. No significant pulmonary edema. Electronically Signed: Minor Wolff MD at 3:21 EDT Reading Location ID and State: [facility] / [place] Tel , Service support , Chest X-Ray 11/25/22 06:55 IMPRESSION: 1. Central pulmonary vascular congestion. 2. Right jugular central line with tip just above the cavoatrial junction. Electronically Signed: Minor Wolff MD at 7:48 EDT Reading Location ID and State: [facility] / [place] Tel , Service support , Charges/Coding Procedures Hospitalists Procedures: [id number] [facility] 1st Hr
[2022-11-25 10:03] LABS: Magnesium 2.4 mg/dL (1.6-2.6); Phosphorus 5.5 mg/dL (2.5-4.9)
[2022-11-25] MEDS: 0.9% Saline Lock 10 ML Syringe IV ×2 (10:14→21:14)
[2022-11-25] MEDS: Enoxaparin 40 MG/0.4 ML Syringe SC (10:18)
[2022-11-25] MEDS: Acetaminophen 500 MG Tablet 1000 MG PO (11:20)
[2022-11-25 11:41] LABS: Bedside Glucose 101 mg/dL (74-106)
[2022-11-25] MEDS: Nystatin Powder 15gm Bottle 1 APPLIC TOPICAL ×2 (13:21→21:13)
[2022-11-25] MEDS: Sodium Chloride 0.65% 1 SPRAY SPRAY.BTL 2 SPRAY NASAL ×2 (13:21→21:12)
[2022-11-25] MEDS: 0.9% Normal Saline 1,000 ML 100 ML IV (14:12)
[2022-11-25] MEDS: Tamsulosin HCl 0.4 MG Capsule PO (15:58)
[2022-11-25 16:18] LABS: Bedside Glucose 124 mg/dL (74-106)
[2022-11-25] MEDS: Atorvastatin Calcium 10 MG Tablet PO (21:12)
[2022-11-25] MEDS: Menthol/Lanolin/Calamine/Znox 113 GM Tube 1 APPLIC TOPICAL (21:12)
[2022-11-25] MEDS: Senna/Docusate Sodium 1 Tablet PO (21:12)
[2022-11-25] MEDS: Ipratropium Bromide 0.06% NASAL SPRAY 2 SPRAY NASAL (21:14)
[2022-11-25 21:40] LABS: Bedside Glucose 128 mg/dL (74-106)
[2022-11-26] VITALS (16 sets, daily range): BP systolic 86–109; BP diastolic 55–70; PULSE 62–89; RESP 14–24; TEMP 35.6–36.6; O2SAT 92–98; BMI 29.3
[2022-11-26] MEDS: Nystatin Powder 15gm Bottle 1 APPLIC TOPICAL ×3 (05:16→23:01)
[2022-11-26] MEDS: Sodium Chloride 0.65% 1 SPRAY SPRAY.BTL 2 SPRAY NASAL ×3 (05:16→23:00)
[2022-11-26] MEDS: Ondansetron 4 MG/2 ML Vial IV (05:21)
[2022-11-26] MEDS: Acetaminophen 500 MG Tablet 1000 MG PO ×2 (05:21→22:59)
[2022-11-26 05:26] LABS: Absolute Lymphocyte Count 0.49 X10^3/uL (0.83-4.51); Absolute Neutrophil Count 7.3 X10^3/uL (2.0-7.7); Basophil# 0.04 X10^3/uL; Basophil% 0.5 % (0-1); Eosinophil# 0.14 X10^3/uL; Eosinophils% 1.6 % (0-5); Hematocrit 34.6 % (40-54); Hemoglobin 10.8 g/dL (13.0-16.5); Lymphocyte # 0.49 X10^3/ul (0.83-4.51); Lymphocyte % 5.6 % (19-41); Mean Corp Hgb Conc 31.2 g/dL (32-36); Mean Corpuscular Hgb 33.8 pg (27.0-32.0); Mean Corpuscular Volume 108.1 fL (80-94); Mean Platelet Vol. 10.8 fl (6.2-12.0); Monocyte# 0.56 X10^3/uL; Monocyte% 6.4 % (0-10); NRBC Flagged by Analyzer 2.2 % (0-5); Neutrophil # 7.34 X10^3/uL (2.7-7.7); Neutrophil % 84.1 % (47-70); POSITIVE COUNT YES; POSITIVE DIFFERENTIAL YES; POSITIVE MORPHOLOGY YES; Platelet Count 88 K/mm3 (150-450); RBC Distribution Width CV 17.6 % (11.6-14.6); RBC Distribution Width SD 68.3 fl (35.1-43.9); White Blood Count 8.7 K/mm3 (4.4-11.0)
[2022-11-26 05:27] LABS: Differential Indicated SCAN CRITERIA MET
[2022-11-26 05:46] LABS: Anion Gap 9 (5-15); BUN 67 mg/dL (7-18); Calcium,Total 7.4 mg/dL (8.5-10.1); Chloride 112 mmol/L (98-107); Creatinine, Serum 2.58 mg/dL (0.70-1.30); EST Glomerular Filtration Rate 26 mL/min (>60); Est Glom Filt Rate - Afr Amer 32 mL/min (>60); Estimated Creatinine Clearance 25.88 ml/min; Glucose 119 mg/dL (74-106); Potassium 5.4 mmol/L (3.5-5.1); Sodium Level 140 mmol/L (136-145)
--- NOTE | 2022-11-26 06:14 | PN.CC_ITS ---
Assessment & Plan Assessment/Plan (1) Septic shock: (2) Urinary tract infection: (3) Insulin dependent diabetes mellitus: PLAN: Plan RECOMMENDATIONS: 1. Continue empiric antimicrobials, pending finalized culture results. 2. Obtain renal ultrasound and nephrology consultation. 3. Wean supplemental oxygen to maintain saturations at or above 90%. 4. Encourage incentive spirometer use and mobilize patient as tolerated. 5. Continue appropriate DVT prophylaxis. IMPRESSIONS: 1. Septic shock secondary to UTI The patient presented to the hospital with sepsis due to probable urinary tract source of infection with acute sepsis related organ dysfunction as evidenced by lactic acidemia and acute kidney injury. The patient developed fluid refractory hypotension, which did require the use of vasopressor support for a period of time. The patient has since been weaned from Levophed and remains hemodynamically stable. Plan to continue empiric antimicrobials, pending finalized culture results. 2. Acute kidney injury Likely secondary to ATN in the setting of #1. The patient remains hemodynamically stable at the present time. Will obtain renal ultrasound and nephrology consultation. Continue to monitor urine output for now. No current indication for renal replacement therapy. 3. Chronic CHF/history of mural thrombus Continue to monitor fluid status closely. No indication for diuretics at the present time. 4. Insulin-dependent diabetes mellitus Continue to monitor blood glucose levels and continue sliding scale insulin coverage as needed. 5. Debility/multiple falls/history of wounds secondary to PVD/rheumatoid a rthritis Complicates care, management, recovery and prognosis. Consider holding methotr exate given problem #1. The patient will eventually require PT/OT evaluations. This note was generated with [employer] dictation software. It may contain incorrect words, spelling, and punctuation that were not noted in checking the note before signing. Subjective Subjective The patient was seen and examined at the bedside this morning. Events from the last 24 hours have been reviewed. The patient is currently afebrile, hemodynamically stable and maintaining appropriate oxygen saturations on 2 L/min via nasal cannula. The patient was weaned from Levophed last evening. The patient is documented to be overall net +3.7 L for the hospitalization. Creatinine has increased to 2.58. The patient has no specific complaints this morning. Objective Data Objective Data The patient's most recent lab work, culture data and imaging studies have all been personally reviewed. Surface echocardiogram from July 2021 demonstrated an ejection fraction of 30%. Pulmonary artery systolic pressure was estimated to be 55 mmHg. Blood and urine cultures are pending. Vital Signs: Vital Signs Temp Pulse Resp BP Pulse Ox O2 Del Method O2 Flow Rate 97.5 F L 62 19 H 92/57 L 96 Nasal Cannula 2 11/26/22 03:00 11/26/22 03:00 11/26/22 03:00 11/26/22 03:00 11/26/22 03:00 11/26/22 04:00 11/26/22 04:00 FiO2 27 11/25/22 08:00 Oxygen Flow Rate (L/min) 2 Oxygen Delivery Method Nasal Cannula Weight: 195 lb 15.855 oz Body Mass Index (BMI) 28.9 Intake & Output: Intake and Output for Last 24 Hours 11/24/22 11/25/22 11/26/22 23:59 23:59 23:59 Intake Total 2841.3913 / 2841.3913 1050 / 1050 Output Total 110 / 110 Balance 2731.3913 / 2731.3913 1050 / 1050 Lab / Micro Data Attestation: I reviewed the patient's lab results. Result Diagrams: 11/26/22 05:15 11/26/22 05:15 Labs: Laboratory Results - last 24 hr 11/25/22 08:18: Lactic Acid 4.4 H* 11/25/22 09:42: Phosphorus 5.5 H, Magnesium 2.4 11/25/22 11:21: POC Glucose 101 11/25/22 15:55: POC Glucose 124 H 11/25/22 21:20: POC Glucose 128 H 11/26/22 05:15: WBC 8.7, RBC 3.20 L, Hgb 10.8 L, Hct 34.6 L, MCV 108.1 H, MCH 33.8 H, MCHC 31.2 L, RDW Std Deviation 68.3 H, RDW Coeff of Melodie 17.6 H, Plt Count 88 L, MPV 10.8, Immature Gran % (Auto) 1.800 H, Neut % (Auto) 84.1 H, Lymph % (Auto) 5.6 L, [place] % (Auto) 6.4, Eos % (Auto) 1.6, Baso % (Auto) 0.5, Absolute Neuts (auto) 7.3, Absolute Lymphs (auto) 0.49 L, Nucleated RBC % 2.2 11/26/22 05:15: Sodium 140, Potassium 5.4 H, Chloride 112 H, Carbon Dioxide 19.0 L, Anion Gap 9, BUN 67 H, Creatinine 2.58 H, Estim Creat Clear Calc 25.88, Est GFR (MDRD) Af Amer 32 L, Est GFR (MDRD) Non-Af 26 L, BUN/Creatinine Ratio 26.0 H , Glucose 119 H, Calcium 7.4 L Radiography Diagnostic Testing: Radiology Impression Chest X-Ray 11/25/22 06:55 IMPRESSION: 1. Central pulmonary vascular congestion. 2. Right jugular central line with tip just above the cavoatrial junction. Electronically Signed: Minor Wolff MD at 7:48 EDT , Physical Exam Const alert and no apparent distress General Appearance: cooperative HEENT normocephalic, head/scalp atraumatic and moist oral mucous membranes Eyes PERRL, EOMs intact bilaterally and conjunctivae normal Neck supple General: trachea midline and CVC in place Chest inspection of chest normal Resp normal respiratory effort Effort and Inspection: able to speak in complete sentences Auscultation: Negative for rales, rhonchi or wheezes Cardio regular rate and regular rhythm GI normal to inspection, nondistended, normoactive bowel sounds Extremity no clubbing, cyanosis or edema Skin no rashes or lesions noted Neuro CN's II-XII intact bilaterally and no focal motor deficits Psych Mood & Affect: flat affect Charges/Coding Visit Charges Inpatient E&M: 91517 Subs Hosp L3
[2022-11-26 06:19] LABS: Anisocytosis 1+; Macrocytosis 2+; Platelet Estimate MOD DEC (ADEQ)
--- NOTE | 2022-11-26 06:47 | US_ITS ---
STUDY: RENAL ULTRASOUND - COMPLETE REASON FOR EXAM: Male, 72 years old. Acute kidney injury. TECHNIQUE: Ultrasound evaluation of the kidneys was performed with real-time and static santillan-scale imaging. COMPARISON: CTA of the abdomen, July 25, 2018. FINDINGS: RIGHT KIDNEY: Normal location of the right kidney, which is normal in size. The right kidney measures 9.9 cm. There is a normal cortex of the right kidney. The renal cortex measures 1.2 cm. There is no right renal mass or cyst. There are no right renal calculi. There is no right hydronephrosis. DISTAL RIGHT URETER: There is non-visualization of the distal right ureter. There is no demonstrated right ureterovesical junction calculus. There is no demonstrated right ureteral jet. LEFT KIDNEY: Normal location of the left kidney, which is normal in size. The left kidney measures 10.0 cm. There is a normal cortex of the left kidney. The renal cortex measures 1.8 cm. There is a 4.2 x 4.1 x 3.4 cm simple cyst in the upper pole which was previously noted. There is a small crescentic hyper echoic focus measuring 1 x 0.4 x 1.4 cm lower pole left kidney thought to correlate with the similar calcification seen on the prior CTA There is no left hydronephrosis. DISTAL LEFT URETER: There is non-visualization of the distal left ureter. There is no demonstrated left ureterovesical junction calculus. There is no demonstrated left ureteral jet. BLADDER: The urinary bladder is collapsed about a Baires catheter. US/Kidney and Bladder IMPRESSION: 1. Stable calcification and simple cyst in the left kidney. These require no follow-up. 2. Normal right kidney. 3. Inability to evaluate the urinary bladder due to the presence of a Baires catheter. Electronically Signed: Clovis Fitzgerald DO at 16:39 EDT ,
--- NOTE | 2022-11-26 07:03 | PN.HOSP_ITS ---
Reason for Visit Reason for Visit: Diagnoses Sepsis, unspecified organism (11/25/22) Type 2 diabetes mellitus without complications (11/25/22) Urinary tract infection, site not specified (11/25/22) Severe sepsis with septic shock (11/25/22) Subjective Subjective Feeling better. No SOB. Objective Data Objective Data Vital Signs: Vital Signs Temp Pulse Resp BP Pulse Ox O2 Del Method O2 Flow Rate 36.4 C L 66 19 H 108/57 L 92 Nasal Cannula 3 11/26/22 06:00 11/26/22 06:00 11/26/22 06:00 11/26/22 06:00 11/26/22 06:00 11/26/22 06:00 11/26/22 06:00 FiO2 27 11/25/22 08:00 Oxygen Flow Rate (L/min) 3 Oxygen Delivery Method Nasal Cannula Weight: 90 kg Body Mass Index (BMI) 29.3 Intake & Output: Intake and Output for Last 24 Hours 11/24/22 11/25/22 11/26/22 23:59 23:59 23:59 Intake Total 2841.3913 / 2841.3913 1050 / 1050 Output Total 110 / 110 250 / 250 Balance 2731.3913 / 2731.3913 800 / 800 Lab / Micro Data Result Diagrams: 11/26/22 05:15 11/26/22 05:15 Labs: Laboratory Results - last 24 hr 11/25/22 08:18: Lactic Acid 4.4 H* 11/25/22 09:42: Phosphorus 5.5 H, Magnesium 2.4 11/25/22 11:21: POC Glucose 101 11/25/22 15:55: POC Glucose 124 H 11/25/22 21:20: POC Glucose 128 H 11/26/22 05:15: WBC 8.7, RBC 3.20 L, Hgb 10.8 L, Hct 34.6 L, MCV 108.1 H, MCH 33.8 H, MCHC 31.2 L, RDW Std Deviation 68.3 H, RDW Coeff of Melodie 17.6 H, Plt Count 88 L, MPV 10.8, Immature Gran % (Auto) 1.800 H, Neut % (Auto) 84.1 H, Lymph % (Auto) 5.6 L, [place] % (Auto) 6.4, Eos % (Auto) 1.6, Baso % (Auto) 0.5, Absolute Neuts (auto) 7.3, Absolute Lymphs (auto) 0.49 L, Nucleated RBC % 2.2, Platelet Estimate MOD DEC, Anisocytosis 1+, Macrocytosis 2+ 11/26/22 05:15: Sodium 140, Potassium 5.4 H, Chloride 112 H, Carbon Dioxide 19.0 L, Anion Gap 9, BUN 67 H, Creatinine 2.58 H, Estim Creat Clear Calc 25.88, Est GFR (MDRD) Af Amer 32 L, Est GFR (MDRD) Non-Af 26 L, BUN/Creatinine Ratio 26.0 H , Glucose 119 H, Calcium 7.4 L Radiography Diagnostic Testing: Radiology Impression Chest X-Ray 11/25/22 06:55 IMPRESSION: 1. Central pulmonary vascular congestion. 2. Right jugular central line with tip just above the cavoatrial junction. Electronically Signed: Minor Wolff MD at 7:48 EDT , Physical Exam Const alert and no apparent distress HEENT head/scalp atraumatic and moist oral mucous membranes Neck Neck Narrative: TLC in RIJ Resp normal respiratory effort, no retractions, no use of accessory muscles and clear to auscultation bilaterally Cardio regular rate, regular rhythm, S1 normal heart sound and S2 normal heart sound GI normal to inspection, nondistended, normoactive bowel sounds and soft to palpation Extremity normal to inspection Psych affect normal Assessment & Plan Assessment/Plan (1) Septic shock: PLAN: 2/2 UTI Admission SIRS: Respiratory rate more than 20, WBC more than 12,000 (15,100), PCO2 less than 32 mmHg (20.7 on presentation. Admission SOFA of 8 Pt did not receive 30cc/kg of IVF due concerns for worsening CHF from the presence of pleural effusions and LE edema Follow up cultures Had been on norepinephrine, but has been weaned off since 11/25 Continue pip/tazo (2) Urinary tract infection: PLAN: on pip/tazo follow up cultures (3) RODRIGUEZ (acute kidney injury): PLAN: RODRIGUEZ worse suspect ATN follow up US check urine studies. nephrology consulted (4) Respiratory distress: PLAN: POA / compensation for metabolic acidosis from septic shock improved with improvement of septic shock (5) LV (left ventricular) mural thrombus: PLAN: Still present on echo. Reviewed records: pt was on apixaban on 06/30 upon admission to TCU and not resumed upon discharge on 07/19. No documentation as to why that occurred. Will resume low-dose apixaban. PLAN: Plan Chronic complicating conditions: * HFrEF, chronic: pleural effusion noted on CT, but rather small. No need for thoracentesis at this time. EF 30% from 2d echo on 08/13/21. Repeat echo pending. Resume carvedilol as BP allows. No ACEi/ARB given RODRIGUEZ. Repeat echo shows EF 35% * DM2, insulin-dependent: fair control. Currently on SSI and linagliptin * BPH: on tamsulosin * CAD: continue atorvastatin and clopidogrel * HTN: BP meds held given shock. Resume when appropriate. * Psoriasis: MTX currently on hold. * chronic pain: takes oxycodone outpt, therapeutic interchange with morphine Intertrigo of groin Nystatin powder ordered. DVT prophylaxis: apixaban Transfer to PCU. Greater than 75 minutes of which greater than 50% of time was reviewing records, reviewing previous medical records and trying to understand why the patient's apixaban was discontinued. Charges/Coding Visit Charges Inpatient E&M: 55851 [facility] L3
[2022-11-26 08:16] LABS: Urine Sodium < 5 mmol/L (Not Establ.)
[2022-11-26] MEDS: Venlafaxine XR 150 MG Capsule PO (08:44)
[2022-11-26] MEDS: LINAGLIPTIN 5 MG TABLET PO (08:44)
[2022-11-26] MEDS: Loratadine 10 MG Tablet PO (08:44)
[2022-11-26] MEDS: buPROPion (XL) 150 MG TABLET.XL PO (08:45)
[2022-11-26] MEDS: Clopidogrel Bisulfate 75 MG Tablet PO (08:46)
[2022-11-26] MEDS: Folic Acid 1 MG Tablet PO (08:46)
[2022-11-26] MEDS: Ipratropium Bromide 0.06% NASAL SPRAY 2 SPRAY NASAL ×2 (08:46→23:00)
[2022-11-26] MEDS: Menthol/Lanolin/Calamine/Znox 113 GM Tube 1 APPLIC TOPICAL ×2 (08:46→23:01)
[2022-11-26] MEDS: Senna/Docusate Sodium 1 Tablet PO ×2 (08:47→22:59)
[2022-11-26] MEDS: Triamcinolone Acetonide 0.1% Cream 15 gm 1 APPLIC TOPICAL (08:47)
[2022-11-26] MEDS: Enoxaparin 30 MG/0.3 ML Syringe SC (08:48)
--- NOTE | 2022-11-26 10:08 | PCM.CONS.R ---
Assessment & Plan Assessment/Plan (1) RODRIGUEZ (acute kidney injury): (2) Hyperkalemia: (3) Acute metabolic acidosis: PLAN: Plan Impression/Plan: The patient is a 72-year-old man with past history of type 2 diabetes mellitus, hypertension, CAD status post CABG, stroke, BPH, JENNIFER, PAD, hyperlipidemia, depression and psoriasis. The patient was admitted to the hospital on 11/25/2022 with septic shock due to UTI. Nephrology is following for acute kidney injury. Acute kidney injury. Baseline serum creatinine has been around 1.2 to 1.3 mg/dL. Suspect RODRIGUEZ secondary to ischemic ATN related to septic shock. However, the patient also has history of BPH with significant lower urinary tract symptoms. Therefore, I will also check ultrasound to make sure were not missing obstructive process. Low suspicion for other causes of RODRIGUEZ at this point. I will check urine indices and renal ultrasound as discussed above. The patient does not appear to be volume overloaded. Given poor oral intake, I agree with bolus of isotonic crystalloid today. Although serum creatinine is rising over the last 24 hours, there is no urgent need for kidney replacement therapy. Continue to keep MAP above 65 mmHg. We will continue to monitor renal function, volume status, and electrolytes. Current medications are reviewed and are appropriately dosed for his renal function. Hyperkalemia. Hyperkalemia is likely due to RODRIGUEZ and acute metabolic acidosis. The patient was also on potassium chloride prior to admission. He is currently off of potassium chloride. Potassium level is 5.4 mmol/L today which is only slightly increased. Therefore, there is no need for specific treatment. Potassium level should come down and stabilize with improvement in renal function. We will continue to monitor serum potassium. Acute metabolic acidosis. Serum bicarbonate level is down to 19 mmol/L today, so he is just slightly acidotic. There is no indications for adding sodium bicarbonate from nephrology standpoint since there is no significant CKD. We will continue to monitor serum bicarbonate. I would recommend using LR instead of normal saline to volume expand the patient if IV fluid is needed. Normal saline is more likely to worsen acidosis and hyperkalemia than LR. Septic shock. The patient is being treated with piperacillin?tazobactam. Antibiotic is appropriate dose for the patient's renal function. BP has improved since admission, and he is not requiring IV vasopressors. Coordination of complex medical care as coordinated by hospital medicine service and ICU team. Nephrology plan will be discussed with Dr. Lennon HPI Consult Data Date of Consult: 11/26/22 HPI Narrative Reason for Consultation: Acute kidney injury HPI Narrative: The patient is a 72-year-old man with past history of type 2 diabetes mellitus, hypertension, CAD status post CABG, stroke, BPH, JENNIFER, PAD, hyperlipidemia, depression and psoriasis. The patient presented to the hospital on 11/25/2022 with 10-day history of generalized weakness, progressive dyspnea. He also presented with nonproductive cough, nausea without vomiting, and dyspepsia. During the evaluation in ED on 11/25/2022, he was found to be hypotensive with BP of 77/58 mmHg. The patient was subsequently diagnosed with UTI complicated by circulatory shock from sepsis. Nephrology is asked to see the patient because of RODRIGUEZ. Serum creatinine has increased to 2.58 mg/dL today on 11/26/2022. On presentation to the hospital on 11/25/2022, serum creatinine was 1.86 mg/dL. Baseline serum creatinine has been around 1.1 to 1.3 mg/dL at baseline. The patient also has mild hyperkalemia with potassium level 5.4 mmol/L today with serum bicarbonate level of 19 mmol/L. Urinalysis on 11/25/2022 showed relatively high specific gravity at 1.020 with microscopic hematuria and pyuria. There was 2+ proteinuria on dipstick. The patient feels better overall since admission. He is less dyspneic. There has been no chest pain. However, he still has intermittent nausea without vomiting and poor appetite. The patient does report longstanding history of lower urinary tract symptoms. He has urinary hesitancy and dribbling. He also has urinary frequency/nocturia. He has been on tamsulosin for around 3 months without much improvement in symptoms. Prior to admission, the patient was not on RAAS inhibitor or NSAIDs. However, he was on methotrexate for psoriasis and potassium chloride supplement prior to admission. 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 Erectile dysfunction Failure to thrive Fatigue Foot drop, left foot History of multiple strokes History of right common carotid artery stent placement Hyperlipidemia Hypertension Hypertension Insomnia LV (left ventricular) mural thrombus JENNIFER (obstructive sleep apnea) 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 Psoriasis Psoriatic arthritis Psoriatic arthritis Stroke Type 2 diabetes mellitus with diabetic polyneuropathy Home Medications atorvastatin 10 mg tablet 10 mg PO QHS Cholesterol 06/30/22 [History Last Taken Unknown] bisacodyl 10 mg rectal suppository 10 mg HI .PRN X 1 PRN Constipation #0 ea 06/30/22 [Rx Last Taken Unknown] bupropion HCl 150 mg 24 hr tablet, extended release 150 mg PO DAILY Mood 06/30/22 [History Last Taken Unknown] carvedilol 6.25 mg tablet 6.25 mg PO BIDCM BP 06/30/22 [History Last Taken Unknown] clopidogrel 75 mg tablet 75 mg PO DAILY Blood Thinner 06/30/22 [History Last Taken Unknown] folic acid 1 mg tablet 1 mg PO BREAKFAST Supplement 06/30/22 [History Last Taken Unknown] ipratropium bromide 42 mcg (0.06 %) nasal spray 2 spray NASAL BID Check with primary doctor 06/30/22 [History Last Taken Unknown] linagliptin 5 mg tablet (Tradjenta) 5 mg PO DAILY Diabetes 06/30/22 [History Last Taken Unknown] menthol 0.44 %-zinc oxide 20.6 % topical ointment (Calmoseptine) 1 applic topical BID Skin 06/30/22 [History Last Taken Unknown] methotrexate sodium 2.5 mg tablet 17.5 mg PO FR Psoriasis 06/30/22 [History Last Taken Unknown] potassium chloride 20 mEq tablet,extended release(part/cryst) (Klor-Con M) 20 meq PO DAILYCM Supplement 06/30/22 [History Last Taken Unknown] sennosides 8.6 mg-docusate sodium 50 mg tablet (Stool Softener-Stimulant Laxative) 1 tab PO BID Constipation 06/30/22 [History Last Taken Unknown] sodium chloride 0.65 % nasal spray aerosol (Deep Sea Nasal) 2 spray NASAL TID Congestion 06/30/22 [History Last Taken Unknown] tamsulosin 0.4 mg capsule 0.4 mg PO DAILY@1730 Retention 06/30/22 [History Last Taken Unknown] venlafaxine 75 mg tablet 150 mg PO DAILY Mood 06/30/22 [History Last Taken Unknown] insulin lispro 100 unit/mL subcutaneous pen (Humalog KwikPen (U-100) Insulin) 10 unit (0.1 mL) subcut TIDAC #0 mL 07/19/22 [Rx Last Taken Unknown] triamcinolone acetonide 0.1 % topical cream 1 applic topical DAILY 09/19/22 [History Last Taken Unknown] acetaminophen 500 mg tablet 1,000 mg PO Q8 PRN Pain 11/25/22 [History Last Taken Unknown] loratadine 10 mg tablet (Claritin) 10 mg PO DAILY 11/25/22 [History Last Taken Unknown] oxycodone 5 mg tablet 5 mg PO Q6H PRN PRN Pain Score 6-10 11/25/22 [History Last Taken Unknown] Allergy/AdvReac Type Severity Reaction Status Date / Time morphine Allergy PT UNSURE Verified 11/25/22 02:51 OF REACTION rivaroxaban [From Xarelto] Allergy Other Verified 11/25/22 02:51 Family History Mother CVA (cerebral vascular accident) Diabetes Heart disease Hypertension Father Diabetes Heart disease Pulmonary disease Surgical History History of back surgery Hx of CABG S/P peripheral artery bypass Status post right foot surgery Social History household members: spouse Smoking Status: Never smoker alcohol intake: never substance use type: does not use ROS ROS Narrative Constitutional: Increasing malaise and fatigue for around 2 weeks prior to admission. HEENT: No visual change, double vision, scotomas. No rhinorrhea, epistaxis, or sinus pain. No tinnitus or hearing loss. No sore throat, odynophagia or gingival bleeding. Cardiovascular: No chest pain, PND, orthopnea, edema, palpitation, or claudication. The patient presented with dyspnea with exertion. Respiratory: He had nonproductive cough on presentation. There is no sputum, wheeze, hemoptysis. Gastrointestinal: No abdominal pain, dysphagia, vomiting, diarrhea, constipation, obstipation, hematemesis, hematochezia, melena, or tenesmus. The patient did have nausea and anorexia prior to admission. Genitourinary: See HPI.. Musculoskeletal: No stiffness, pain, joint swelling, decreased range of motion, crepitus, or functional deficit. Integumentary: History of psoriasis which is controlled with methotrexate. Neurological: No change in sight, smell, hearing, taste. There is no seizure, headache, numbness, poor balance, speech problem, cognitive disturbance. Psychiatric: No depression, anxiety, paranoia, anhedonia, or avril. Endocrine: No temperature intolerance, polydipsia, polyuria, polyphagia. Hematologic: No purpura, petechia, prolonged bleeding, or blood clots. Physical Exam Narrative General: Alert and oriented x3, ill-appearing. HEENT: Normocephalic, atraumatic. Mucous membrane dry without erythema. PERRLA, EOMI. Hearing is intact. Neck: Supple, no JVD. Trachea is midline. No thyromegaly or lymphadenopathy. Cardiovascular: Normal S1, S2. No rubs, murmurs, or gallops. Respiratory: Lungs are clear to auscultation bilaterally. No wheezing, rhonchi, or rales. Abdomen: Normal bowel sounds, soft, nontender, no guarding or rebound, no organomegaly. Extremities: No clubbing, cyanosis, or edema. Musculoskeletal: Full passive range of motion, no joint swelling. Psychiatric: Normal mood and affect. Skin: Warm and dry, no rash. Neurologic: Cranial nerve II to XII are grossly intact. No focal neurologic deficits. Lab / Micro Data Result Diagrams: 11/26/22 05:15 11/26/22 05:15 Labs: Laboratory Results - last 24 hr 11/25/22 11:21: POC Glucose 101 11/25/22 15:55: POC Glucose 124 H 11/25/22 21:20: POC Glucose 128 H 11/26/22 05:15: WBC 8.7, RBC 3.20 L, Hgb 10.8 L, Hct 34.6 L, MCV 108.1 H, MCH 33.8 H, MCHC 31.2 L, RDW Std Deviation 68.3 H, RDW Coeff of Melodie 17.6 H, Plt Count 88 L, MPV 10.8, Immature Gran % (Auto) 1.800 H, Neut % (Auto) 84.1 H, Lymph % (Auto) 5.6 L, [place] % (Auto) 6.4, Eos % (Auto) 1.6, Baso % (Auto) 0.5, Absolute Neuts (auto) 7.3, Absolute Lymphs (auto) 0.49 L, Nucleated RBC % 2.2, Platelet Estimate MOD DEC, Anisocytosis 1+, Macrocytosis 2+ 11/26/22 05:15: Sodium 140, Potassium 5.4 H, Chloride 112 H, Carbon Dioxide 19.0 L, Anion Gap 9, BUN 67 H, Creatinine 2.58 H, Estim Creat Clear Calc 25.88, Est GFR (MDRD) Af Amer 32 L, Est GFR (MDRD) Non-Af 26 L, BUN/Creatinine Ratio 26.0 H, Glucose 119 H, Calcium 7.4 L 11/26/22 07:20: Ur Random Sodium < 5, Urine Creatinine 124.00
[2022-11-26] MEDS: LACTATED RINGERS 500 ML 999 ML IV (11:33)
[2022-11-26 12:56] LABS: Bedside Glucose 140 mg/dL (74-106)
--- NOTE | 2022-11-26 16:03 | CASEMGMT ---
Discharge Planning Patient resided at [facility]. Updates sent via [facility]. Nadya Ellis, Discharge Planning Asst.
--- NOTE | 2022-11-26 16:07 | CASEMGMT ---
Sw presented to bedside to meet with patient to discuss discharge planning. Patient not in room at this time. Sw attempted to call pt at number listed, no answer and no detailed voicemail established so no message left. Sw will continue to attempt to meet with patient and talk to family to discuss discharge plans. Alysha Oliver, PATTERN REPAIR PERSON, [employer]
[2022-11-26 17:05] LABS: Bedside Glucose 178 mg/dL (74-106)
[2022-11-26] MEDS: Tamsulosin HCl 0.4 MG Capsule PO (17:41)
[2022-11-26] MEDS: Insulin Lispro 100 UNIT/ML INSULN.PEN SC ×2 (17:41→23:01)
[2022-11-26] MEDS: Glucerna Shake 120 ML LIQUID PO (17:59)
[2022-11-26] MEDS: 0.9% Saline Lock 10 ML Syringe IV (22:58)
[2022-11-26] MEDS: APIXABAN 2.5 MG TABLET (WCH) PO (23:00)
[2022-11-26] MEDS: Atorvastatin Calcium 10 MG Tablet PO (23:00)
[2022-11-27] VITALS (9 sets, daily range): BP systolic 91–117; BP diastolic 57–71; PULSE 61–77; RESP 16–24; TEMP 35.7–36.7; O2SAT 93–100; BMI 29.5
[2022-11-27 00:42] LABS: Bedside Glucose 180 mg/dL (74-106)
[2022-11-27 05:27] LABS: Hemoglobin 10.3 g/dL (13.0-16.5); Mean Corp Hgb Conc 31.2 g/dL (32-36); Mean Corpuscular Hgb 33.4 pg (27.0-32.0); Mean Corpuscular Volume 107.1 fL (80-94); Mean Platelet Vol. 11.2 fl (6.2-12.0); POSITIVE COUNT YES; POSITIVE DIFFERENTIAL YES; POSITIVE MORPHOLOGY YES; Platelet Count 85 K/mm3 (150-450); RBC Distribution Width CV 17.1 % (11.6-14.6); RBC Distribution Width SD 66.1 fl (35.1-43.9); Red Blood Count 3.08 M/mm3 (4.6-6.2); White Blood Count 7.4 K/mm3 (4.4-11.0)
[2022-11-27 05:30] LABS: Differential Indicated MANUAL DIFF
[2022-11-27 05:52] LABS: Albumin, Serum 2.4 g/dL (3.2-5.0); BUN 65 mg/dL (7-18); BUN/Creat Ratio 29.1 RATIO (10-20); Calcium,Total 7.3 mg/dL (8.5-10.1); Chloride 112 mmol/L (98-107); Creatinine, Serum 2.23 mg/dL (0.70-1.30); EST Glomerular Filtration Rate 31 mL/min (>60); Est Glom Filt Rate - Afr Amer 37 mL/min (>60); Estimated Creatinine Clearance 29.94 ml/min; Glucose 172 mg/dL (74-106); Phosphorus 3.4 mg/dL (2.5-4.9); Potassium 4.2 mmol/L (3.5-5.1); Sodium Level 140 mmol/L (136-145)
[2022-11-27 06:04] LABS: Anisocytosis 1+; Macrocytosis 2+
[2022-11-27 06:05] LABS: Absolute Neutrophil Count 5.8 X10^3/uL (2.0-7.7); Platelet Estimate MOD DEC (ADEQ)
[2022-11-27 06:06] LABS: Absolute Lymphocyte Count 0.74 X10^3/uL (0.83-4.51)
[2022-11-27 06:07] LABS: Lymphocyte 10 % (19-41); Monocyte 7 % (0-10); Myelocyte 3 % (0-0); Neutrophil-Band 4 % (0-5); Neutrophil-Segmented 74 % (47-70); Promyelocyte 2 % (0-0); Total Cells Counted 100 (MANUAL DIFF)
[2022-11-27] MEDS: Nystatin Powder 15gm Bottle 1 APPLIC TOPICAL ×3 (07:09→22:32)
[2022-11-27] MEDS: Sodium Chloride 0.65% 1 SPRAY SPRAY.BTL 2 SPRAY NASAL ×3 (07:09→22:31)
[2022-11-27] MEDS: Insulin Lispro 100 UNIT/ML INSULN.PEN SC ×3 (07:11→22:47)
--- NOTE | 2022-11-27 08:00 | PCM.PN.HOSP ---
Reason for Visit Reason for Visit: Diagnoses Sepsis, unspecified organism (11/25/22) Type 2 diabetes mellitus without complications (11/25/22) Acute metabolic acidosis (11/25/22) Hyperkalemia (11/25/22) Intracardiac thrombosis, not elsewhere classified (11/25/22) Acute kidney failure, unspecified (11/25/22) Urinary tract infection, site not specified (11/25/22) Acute respiratory distress (11/25/22) Severe sepsis with septic shock (11/25/22) Subjective Subjective Feels well. Choked on breakfast. Objective Data Objective Data Vital Signs: Vital Signs Temp Pulse Resp BP Pulse Ox O2 Del Method O2 Flow Rate 35.7 C L 62 20 H 112/64 98 Nasal Cannula 3 11/27/22 07:02 11/27/22 07:02 11/27/22 07:02 11/27/22 07:02 11/27/22 07:02 11/27/22 07:02 11/27/22 07:02 FiO2 27 11/25/22 08:00 Oxygen Flow Rate (L/min) 3 Oxygen Delivery Method Nasal Cannula Weight: 90.6 kg Body Mass Index (BMI) 29.5 Intake & Output: Intake and Output for Last 24 Hours 11/25/22 11/26/22 11/27/22 23:59 23:59 23:59 Intake Total 2841.3913 / 2841.3913 2680 / 2680 50 / 50 Output Total 110 / 110 735 / 1135 600 / 600 Balance 2731.3913 / 2731.3913 1945 / 1545 -550 / -550 Lab / Micro Data Result Diagrams: 11/27/22 04:41 11/27/22 04:41 Labs: Laboratory Results - last 24 hr 11/26/22 07:20: Ur Random Sodium < 5, Urine Creatinine 124.00 11/26/22 12:39: POC Glucose 140 H 11/26/22 16:33: POC Glucose 178 H 11/26/22 22:55: POC Glucose 180 H 11/27/22 04:41: Sodium 140, Potassium 4.2, Chloride 112 H, Carbon Dioxide 21.0, BUN 65 H, Creatinine 2.23 H, Estim Creat Clear Calc 29.94, Est GFR (MDRD) Af Amer 37 L, Est GFR (MDRD) Non-Af 31 L, BUN/Creatinine Ratio 29.1 H, Glucose 172 H, Calcium 7.3 L, Phosphorus 3.4, Albumin 2.4 L 11/27/22 04:41: WBC 7.4, RBC 3.08 L, Hgb 10.3 L, Hct 33.0 L, MCV 107.1 H, MCH 33.4 H, MCHC 31.2 L, RDW Std Deviation 66.1 H, RDW Coeff of Melodie 17.1 H, Plt Count 85 L, MPV 11.2, Neut % (Auto) Not Reportable, Absolute Neuts (auto) 5.8, Absolute Lymphs (auto) 0.74 L, Total Counted 100, Neutrophils % (Manual) 74 H, Band Neutrophils % 4, Lymphocytes % (Manual) 10 L, Monocytes % (Manual) 7, Myelocytes % 3 H, Promyelocytes % 2 H, Diff Path Review May foll, Platelet Estimate MOD DEC, Anisocytosis 1+, Macrocytosis 2+ Micro: Microbiology 11/25/22 05:50 Blood Culture (Wb) - Central Line Blood Culture - Preliminary No growth in 48 hours. 11/25/22 06:08 Blood Culture (Wb) - Central Line Blood Culture - Preliminary No growth in 48 hours. 11/25/22 03:57 Urine Catheter - Baires Urine Culture - Preliminary Staphylococcus aureus Radiography Diagnostic Testing: Radiology Impression Echocardiogram 11/25/22 08:26 Interpretation Summary The estimated ejection fraction is 35 %. There is evidence of diastolic dysfunction. The left atrium is moderately enlarged. Moderately severe (3+) mitral valve insufficiency. Mild to moderate (1-2+) tricuspid valve insufficiency. Small LV apical thrombus noted which was also reported in prior studies Hypokinesis of the apex, anterior and posterior anderson Ordering Physician: Sina Caldera Referring Physician: Bryce Camacho Performed By: Sommer Hernandez RCS Renal Ultrasound 11/26/22 06:47 IMPRESSION: 1. Stable calcification and simple cyst in the left kidney. These require no follow-up. 2. Normal right kidney. 3. Inability to evaluate the urinary bladder due to the presence of a Baires catheter. Electronically Signed: Clovis Fitzgerald, at 16:39 EDT Reading Location ID and State: [address] [place] [address] Tel [phone], Service support , Physical Exam Const alert and no apparent distress HEENT head/scalp atraumatic and moist oral mucous membranes Neck no lymphadenopathy Resp normal respiratory effort, no retractions, no use of accessory muscles and clear to auscultation bilaterally Cardio regular rate, regular rhythm, S1 normal heart sound and S2 normal heart sound GI normal to inspection, nondistended, normoactive bowel sounds, soft to palpation, non-tender and non-distended Extremity normal to inspection Assessment & Plan Assessment/Plan (1) Septic shock: PLAN: 07/19 UTI Admission SIRS: Respiratory rate more than 20, WBC more than 12,000 (15,100), PCO2 less than 32 mmHg (20.7 on presentation. Admission SOFA of 8 Pt did not receive 30cc/kg of IVF due concerns for worsening CHF from the presence of pleural effusions and LE edema Follow up cultures Had been on norepinephrine, but has been weaned off since 11/25 Continue pip/tazo, add vancomycin If BCx negative 11/28, dc pip/tazo (2) Urinary tract infection: PLAN: on pip/tazo UCx shows MRSA BCx negative. Echo showed no evidence of endocarditis (3) RODRIGUEZ (acute kidney injury): PLAN: Improving suspect ATN US unremarkable FENa 0.07 nephrology consulted (4) Respiratory distress: PLAN: POA 07/19 compensation for metabolic acidosis from septic shock improved with improvement of septic shock (5) LV (left ventricular) mural thrombus: PLAN: Still present on echo. Reviewed records: pt was on apixaban on 06/30 upon admission to TCU and not resumed upon discharge on 07/19. No documentation as to why that occurred. Will resume low-dose apixaban. (6) Dysphagia: PLAN: Transient choking spell Seen by ST who recommends regular textures and thin liquids PLAN: Plan Chronic complicating conditions: HFrEF, chronic: pleural effusion noted on CT, but rather small. No need for thoracentesis at this time. EF 30% from 2d echo on 08/13/21. Repeat echo pending. Resume carvedilol as BP allows. No ACEi/ARB given RODRIGUEZ. Repeat echo shows EF 35% DM2, insulin-dependent: fair control. Currently on SSI and linagliptin BPH: on tamsulosin CAD: continue atorvastatin and clopidogrel HTN: BP meds held given shock. Resume when appropriate. Psoriasis: MTX currently on hold. chronic pain: takes oxycodone outpt, therapeutic interchange with morphine Intertrigo of groin Nystatin powder ordered. DVT prophylaxis: apixaban Charges/Coding Visit Charges Inpatient E&M: 46476 Subs Hosp L2
[2022-11-27 08:23] LABS: Bedside Glucose 163 mg/dL (74-106)
--- NOTE | 2022-11-27 08:48 | CASEMGMT ---
Social Work As per admitting metal door assembler, pt has LW but not POA. SW verified pt does have LW scanned into the summary tab of the echart, does not have healthcare POA . SADIA Rao
[2022-11-27] MEDS: Ipratropium Bromide 0.06% NASAL SPRAY 2 SPRAY NASAL ×2 (09:02→22:32)
[2022-11-27] MEDS: buPROPion (XL) 150 MG TABLET.XL PO (09:02)
[2022-11-27] MEDS: Folic Acid 1 MG Tablet PO (09:02)
[2022-11-27] MEDS: Senna/Docusate Sodium 1 Tablet PO ×2 (09:02→22:31)
[2022-11-27] MEDS: Triamcinolone Acetonide 0.1% Cream 15 gm 1 APPLIC TOPICAL (09:03)
[2022-11-27] MEDS: Clopidogrel Bisulfate 75 MG Tablet PO (09:03)
[2022-11-27] MEDS: Venlafaxine XR 150 MG Capsule PO (09:03)
[2022-11-27] MEDS: Loratadine 10 MG Tablet PO (09:03)
[2022-11-27] MEDS: Menthol/Lanolin/Calamine/Znox 113 GM Tube 1 APPLIC TOPICAL ×2 (09:04→22:29)
[2022-11-27] MEDS: LINAGLIPTIN 5 MG TABLET PO (09:04)
[2022-11-27] MEDS: APIXABAN 2.5 MG TABLET (WCH) PO ×2 (09:04→22:40)
--- NOTE | 2022-11-27 10:12 | CASEMGMT ---
SW attempted to call patient's Ju with no success. SW then looked at the [facility] paperwork and the phone number listed for Ju is [phone]. SW tried to call Ju on that number with no success. SW will continue to try and once this phone number is verified SW will change it in the system. Tanisha Carney POUNCER MARIAM
--- NOTE | 2022-11-27 10:57 | PCM.PN.REN ---
Documented by User: JUAN Isbell 11/27/22 11:06 Subjective Subjective Sitting up in bed. No overnight events. Denies any vomiting or diarrhea. Reports was nauseated earlier this morning. Objective Data Objective Data Vital Signs: Vital Signs Temp Pulse Resp BP Pulse Ox O2 Del Method O2 Flow Rate 96.8 F L 63 16 91/65 100 Nasal Cannula 2 11/27/22 09:00 11/27/22 09:00 11/27/22 09:00 11/27/22 09:00 11/27/22 09:00 11/27/22 09:00 11/27/22 09:00 FiO2 27 11/25/22 08:00 Oxygen Flow Rate (L/min) 2 Oxygen Delivery Method Nasal Cannula Weight: 90.6 kg Body Mass Index (BMI) 29.5 Intake & Output: Intake and Output for Last 24 Hours 11/25/22 11/26/22 11/27/22 23:59 23:59 23:59 Intake Total 2841.3913 / 2841.3913 2680 / 2680 50 / 50 Output Total 110 / 110 735 / 1135 600 / 600 Balance 2731.3913 / 2731.3913 1945 / 1545 -550 / -550 Lab / Micro Data Result Diagrams: 11/27/22 04:41 11/27/22 04:41 Labs: Laboratory Results - last 24 hr 11/26/22 12:39: POC Glucose 140 H 11/26/22 16:33: POC Glucose 178 H 11/26/22 22:55: POC Glucose 180 H 11/27/22 04:41: Sodium 140, Potassium 4.2, Chloride 112 H, Carbon Dioxide 21.0, BUN 65 H, Creatinine 2.23 H, Estim Creat Clear Calc 29.94, Est GFR (MDRD) Af Amer 37 L, Est GFR (MDRD) Non-Af 31 L, BUN/Creatinine Ratio 29.1 H, Glucose 172 H, Calcium 7.3 L, Phosphorus 3.4, Albumin 2.4 L 11/27/22 04:41: WBC 7.4, RBC 3.08 L, Hgb 10.3 L, Hct 33.0 L, MCV 107.1 H, MCH 33.4 H, MCHC 31.2 L, RDW Std Deviation 66.1 H, RDW Coeff of Melodie 17.1 H, Plt Count 85 L, MPV 11.2, Neut % (Auto) Not Reportable, Absolute Neuts (auto) 5.8, Absolute Lymphs (auto) 0.74 L, Total Counted 100, Neutrophils % (Manual) 74 H, Band Neutrophils % 4, Lymphocytes % (Manual) 10 L, Monocytes % (Manual) 7, Myelocytes % 3 H, Promyelocytes % 2 H, Diff Path Review May foll, Platelet Estimate MOD DEC, Anisocytosis 1+, Macrocytosis 2+ 11/27/22 07:11: POC Glucose 163 H Micro: Microbiology 11/25/22 03:57 Urine Catheter - Baires Urine Culture - Final Meth. resistant Staph. aureus 11/25/22 05:50 Blood Culture (Wb) - Central Line Blood Culture - Preliminary No growth in 48 hours. 11/25/22 06:08 Blood Culture (Wb) - Central Line Blood Culture - Preliminary No growth in 48 hours. Radiography Diagnostic Testing: Radiology Impression Echocardiogram 11/25/22 08:26 Interpretation Summary The estimated ejection fraction is 35 %. There is evidence of diastolic dysfunction. The left atrium is moderately enlarged. Moderately severe (3+) mitral valve insufficiency. Mild to moderate (1-2+) tricuspid valve insufficiency. Small LV apical thrombus noted which was also reported in prior studies Hypokinesis of the apex, anterior and posterior anderson Ordering Physician: Sina Caldera Referring Physician: Bryce Camacho Performed By: Sommer Hernandez RCS Renal Ultrasound 11/26/22 06:47 IMPRESSION: 1. Stable calcification and simple cyst in the left kidney. These require no follow-up. 2. Normal right kidney. 3. Inability to evaluate the urinary bladder due to the presence of a Baires catheter. Electronically Signed: Clovis Fitzgerald DO at 16:39 EDT Reading Location ID and State: [address] [place] [address] Tel [phone], Service support , Physical Exam Narrative Alert and oriented x3, no apparent distress, ill-appearing Normal S1, S2, RRR Lungs clear anteriorly and posteriorly Abdomen soft, nontender, positive bowel sounds No pitting edema bilateral lower legs Assessment & Plan Assessment/Plan (1) RODRIGUEZ (acute kidney injury): (2) Hyperkalemia: (3) Acute metabolic acidosis: PLAN: Plan 72-year-old man with past history of type 2 diabetes mellitus, hypertension, CAD status post CABG, stroke, BPH, JENNIFER, PAD, hyperlipidemia, depression and psoriasis. The patient was admitted to the hospital on 11/25/2022 with septic shock due to UTI. Nephrology is following for acute kidney injury. - Nonoliguric Acute kidney injury likely secondary to ATN from sepsis. Baseline serum creatinine has been around 1.2 to 1.3 mg/dL. Renal ultrasound no hydronephrosis. Creatinine 1.86 mg/dL on admission (11/25), peaked 2.58 yesterday and today creatinine 2.23 mg/dL. No acute indication for CREDIT RESOLUTION REPRESENTATIVE. Urine sodium was less than 5. - Hyperkalemia. Secondary to RODRIGUEZ and acute metabolic acidosis. Resolved. Potassium 4.2, bicarb 21 - Septic shock. The patient is being treated with piperacillin?tazobactam. Antibiotic is appropriate dose for the patient's renal function. BC so far no growth to date. - Nephrology plan discussed with Dr. Lennon Documented by User: Dr. Charito Naidu MD 11/27/22 16:35 Objective Data Lab / Micro Data Result Diagrams: 11/27/22 04:41 11/27/22 04:41 Assessment & Plan Assessment/Plan (1) RODRIGUEZ (acute kidney injury): (2) Hyperkalemia: (3) Acute metabolic acidosis: PLAN: Plan 72-year-old man with past history of type 2 diabetes mellitus, hypertension, CAD status post CABG, stroke, BPH, JENNIFER, PAD, hyperlipidemia, depression and psoriasis. The patient was admitted to the hospital on 11/25/2022 with septic shock due to UTI. Nephrology is following for acute kidney injury. - Nonoliguric Acute kidney injury likely secondary to ATN from sepsis. Baseline serum creatinine has been around 1.2 to 1.3 mg/dL. Renal ultrasound no hydronephrosis. Creatinine 1.86 mg/dL on admission (11/25), peaked 2.58 yesterday and today creatinine 2.23 mg/dL. No acute indication for CREDIT RESOLUTION REPRESENTATIVE. Urine sodium was less than 5. - Hyperkalemia. Secondary to RODRIGUEZ and acute metabolic acidosis. Resolved. Potassium 4.2, bicarb 21 - Septic shock. The patient is being treated with piperacillin?tazobactam. Antibiotic is appropriate dose for the patient's renal function. BC so far no growth to date. - Nephrology plan discussed with Dr. Lennon Nephrology attending addendum: Patient looks and feels better. He denies chest pain or shortness of breath. Vital signs and physical examination as above. The patient is a 72-year-old man with past history of type 2 diabetes mellitus, hypertension, CAD status post CABG, stroke, BPH, JENNIFER, PAD, hyperlipidemia, depression and psoriasis.? The patient was admitted to the hospital on 11/25/2022 with septic shock due to UTI.? Nephrology is following for acute kidney injury. Acute kidney injury. Baseline serum creatinine has been around 1.2 to 1.3 mg/dL. Suspect RODRIGUEZ secondary to ischemic ATN related to septic shock. There was no hydronephrosis found on renal ultrasound. Renal function is better today. He is not oliguric. There is no need for kidney replacement therapy. Continue to keep MAP above 65 mmHg. Continue to encourage oral solute and fluid intake. We will continue to monitor renal function, volume status, and electrolytes. Current medications are reviewed and are appropriately dosed for his renal function. Hyperkalemia. Hyperkalemia was due to RODRIGUEZ and acute metabolic acidosis.? The patient was also on potassium chloride prior to admission. He is currently off of potassium chloride. Potassium level is 5.4 mmol/L yesterday on 11/26/2022 which is only slightly increased.? Potassium level is better today at 4.2 mmol/L with improving renal function. We will continue to monitor serum potassium. Acute metabolic acidosis. Serum bicarbonate level is down to 19 mmol/L on 11/26/2022, so he was just slightly acidotic. Serum bicarbonate level is better today at 21 mmol/L. There is no indications for adding sodium bicarbonate from nephrology standpoint since there is no significant CKD. We will continue to monitor serum bicarbonate. Septic shock. The patient is being treated with piperacillin?tazobactam.? Antibiotic is appropriate dose for the patient's renal function. BP has improved since admission, and he is not requiring IV vasopressors. Coordination of complex medical care as coordinated by hospital medicine service. Nephrology plan will be discussed with Dr. Lennon
--- NOTE | 2022-11-27 11:56 | CASEMGMT ---
KANDI spoke with patient's Ju via phone. Ju confirmed that the plan for patient is to return to [facility] at discharge. Tanisha Carney DISPOSAL MAN Ira
[2022-11-27 12:40] LABS: Bedside Glucose 156 mg/dL (74-106)
[2022-11-27] MEDS: Glucerna Shake 120 ML LIQUID PO ×2 (14:39→18:07)
[2022-11-27 15:06] LABS: Pathologist Review Reviewed
[2022-11-27] MEDS: 0.9% Saline Lock 10 ML Syringe IV (15:24)
--- NOTE | 2022-11-27 15:32 | PCM.RX.CS ---
Consult Pharmacy has been consulted to manage selected antiobiotic: Vancomycin Type of Consult: New start Suspected Infection: Other - UTI Labs: Sodium 140 mmol/L (136-145) 11/27/22 04:41 Potassium 4.2 mmol/L (3.5-5.1) 11/27/22 04:41 Chloride 112 mmol/L (98-107) H 11/27/22 04:41 Carbon Dioxide 21.0 mmol/L (21.0-32.0) 11/27/22 04:41 Anion Gap 9 (5-15) 11/26/22 05:15 BUN 65 mg/dL (7-18) H 11/27/22 04:41 Creatinine 2.23 mg/dL (0.70-1.30) H 11/27/22 04:41 Est GFR (MDRD) Af Amer 37 mL/min (>60) L 11/27/22 04:41 Est GFR (MDRD) Non-Af 31 mL/min (>60) L 11/27/22 04:41 BUN/Creatinine Ratio 29.1 RATIO (10-20) H 11/27/22 04:41 Glucose 172 mg/dL (74-106) H 11/27/22 04:41 Microbiology: Microbiology 11/25/22 03:57 Urine Catheter - Baires Urine Culture - Final Meth. resistant Staph. aureus 11/25/22 05:50 Blood Culture (Wb) - Central Line Blood Culture - Preliminary No growth in 48 hours. 11/25/22 06:08 Blood Culture (Wb) - Central Line Blood Culture - Preliminary No growth in 48 hours. Pharmacy Plan for Drug Dosing: NEW START IV VANCOMYCIN Consulting Physician: RAFY Indication: UTI (MRSA) Goal Trough: 15-20 MG/DL SrCr: 2.23 MG/DL (11/27) CrCl: 29.9 ML/MIN Comments: LOADING DOSE OF 2000MG GIVEN 11/27 @ 1524. PT DID HAVE 1250MG DOSE ON 11/25. Vancomycin Dose: WILL START 1000MG Q24 11/28 @ 1530 AND GET A TROUGH PRIOR TO THE 3RD TOTAL DOSE. Pending Level: 11/29 @ 1500 Pharmacy Service will continue to monitor and adjust dosing as required.
[2022-11-27 17:02] LABS: Bedside Glucose 161 mg/dL (74-106)
[2022-11-27] MEDS: Tamsulosin HCl 0.4 MG Capsule PO (18:11)
[2022-11-27] MEDS: Atorvastatin Calcium 10 MG Tablet PO (22:40)
[2022-11-28] VITALS: PULSE 77; RESP 22
[2022-11-28 03:00] VITALS: BP 109/58; PULSE 74; RESP 18; TEMP 36.5; O2SAT 99
[2022-11-28 03:39] LABS: Bedside Glucose 174 mg/dL (74-106)
[2022-11-28 05:34] VITALS: BMI 29.8
[2022-11-28] MEDS: Nystatin Powder 15gm Bottle 1 APPLIC TOPICAL (06:29)
[2022-11-28 06:52] LABS: Hematocrit 32.1 % (40-54); Hemoglobin 10.5 g/dL (13.0-16.5); Mean Corp Hgb Conc 32.7 g/dL (32-36); Mean Corpuscular Hgb 34.2 pg (27.0-32.0); Mean Corpuscular Volume 104.6 fL (80-94); Mean Platelet Vol. 11.4 fl (6.2-12.0); POSITIVE COUNT YES; POSITIVE DIFFERENTIAL YES; POSITIVE MORPHOLOGY YES; Platelet Count 89 K/mm3 (150-450); RBC Distribution Width CV 17.3 % (11.6-14.6); RBC Distribution Width SD 64.8 fl (35.1-43.9); Red Blood Count 3.07 M/mm3 (4.6-6.2)
[2022-11-28 06:55] LABS: Differential Indicated MANUAL DIFF
[2022-11-28 07:11] LABS: Bedside Glucose 143 mg/dL (74-106)
[2022-11-28 07:33] LABS: ALB/GLOB Ratio 0.8 RATIO (0.9-2.4); AST(SGOT) 1439 U/L (15-37); Alanine Aminotransfer ALT/SGPT 3282 U/L (16-61); Albumin, Serum 2.3 g/dL (3.2-5.0); Alkaline Phosphatase 113 U/L (45-117); Anion Gap 5 (5-15); BUN 45 mg/dL (7-18); BUN/Creat Ratio 28.7 RATIO (10-20); Calcium,Total 7.7 mg/dL (8.5-10.1); Chloride 115 mmol/L (98-107); Creatinine, Serum 1.57 mg/dL (0.70-1.30); EST Glomerular Filtration Rate 46 mL/min (>60); Est Glom Filt Rate - Afr Amer 56 mL/min (>60); Estimated Creatinine Clearance 42.53 ml/min; Globulin 2.9 g/dL (2.2-4.2); Glucose 159 mg/dL (74-106); Potassium 3.8 mmol/L (3.5-5.1); Protein, Total 5.2 g/dL (6.4-8.2); Sodium Level 141 mmol/L (136-145)
[2022-11-28 07:36] VITALS: O2SAT 90
[2022-11-28 07:46] LABS: White Blood Count 7.6 K/mm3 (4.4-11.0)
[2022-11-28 07:49] LABS: Basophil 1 % (0-1); Eosinophil 1 % (0-5); Lymphocyte 9 % (19-41); Metamyelocyte 1 % (0-1); Monocyte 5 % (0-10); Myelocyte 2 % (0-0); Neutrophil-Band 1 % (0-5); Neutrophil-Segmented 80 % (47-70); Nucleated Red Bld Cells,Manual 3 % (0-5); Total Cells Counted 100 (MANUAL DIFF)
[2022-11-28 07:50] LABS: Scan Smear per Review Criteria MANUAL DIFF
[2022-11-28 07:52] LABS: Absolute Lymphocyte Count 0.68 X10^3/uL (0.83-4.51); Absolute Neutrophil Count 6.4 X10^3/uL (2.0-7.7); Lymphocyte # 0.68 X10^3/ul (0.83-4.51); Neutrophil # 6.36 X10^3/uL (2.7-7.7)
[2022-11-28 07:53] LABS: Platelet Estimate SLT DEC (ADEQ)
[2022-11-28 07:54] LABS: Anisocytosis 2+; Macrocytosis 1+; Polychromasia 1+
--- NOTE | 2022-11-28 07:59 | PN.HOSP_ITS ---
Reason for Visit Reason for Visit: Diagnoses Sepsis, unspecified organism (11/25/22) Type 2 diabetes mellitus without complications (11/25/22) Acute metabolic acidosis (11/25/22) Hyperkalemia (11/25/22) Intracardiac thrombosis, not elsewhere classified (11/25/22) Acute kidney failure, unspecified (11/25/22) Urinary tract infection, site not specified (11/25/22) Acute respiratory distress (11/25/22) Dysphagia, unspecified (11/25/22) Severe sepsis with septic shock (11/25/22) Subjective Subjective Denies any complaints. Objective Data Objective Data Vital Signs: Vital Signs Temp Pulse Resp BP Pulse Ox O2 Del Method O2 Flow Rate 36.5 C L 74 18 109/58 L 99 Nasal Cannula 2 11/28/22 03:00 11/28/22 03:00 11/28/22 03:00 11/28/22 03:00 11/28/22 03:00 11/28/22 03:00 11/28/22 03:00 FiO2 27 11/25/22 08:00 Oxygen Flow Rate (L/min) 2 Oxygen Delivery Method Nasal Cannula Weight: 91.7 kg Body Mass Index (BMI) 29.8 Intake & Output: Intake and Output for Last 24 Hours 11/26/22 11/27/22 11/28/22 23:59 23:59 23:59 Intake Total 2680 / 2680 690 / 810 170 / 170 Output Total 735 / 1135 600 / 1000 600 / 600 Balance 1945 / 1545 90 / -190 -430 / -430 Lab / Micro Data Result Diagrams: 11/28/22 06:10 11/28/22 06:10 Labs: Laboratory Results - last 24 hr 11/27/22 04:41: Diff Path Review Reviewed 11/27/22 07:11: POC Glucose 163 H 11/27/22 12:03: POC Glucose 156 H 11/27/22 16:42: POC Glucose 161 H 11/27/22 22:46: POC Glucose 174 H 11/28/22 06:10: Sodium 141, Potassium 3.8, Chloride 115 H, Carbon Dioxide 21.0, Anion Gap 5, BUN 45 H, Creatinine 1.57 H, Estim Creat Clear Calc 42.53, Est GFR (MDRD) Af Amer 56 L, Est GFR (MDRD) Non-Af 46 L, BUN/Creatinine Ratio 28.7 H, Glucose 159 H, Calcium 7.7 L, Total Bilirubin 2.10 H, AST 1439 H, ALT 3282 H, Alkaline Phosphatase 113, Total Protein 5.2 L, Albumin 2.3 L, Globulin 2.9, Albumin/Globulin Ratio 0.8 L 11/28/22 06:10: WBC 7.6, RBC 3.07 L, Hgb 10.5 L, Hct 32.1 L, MCV 104.6 H, MCH 34.2 H, MCHC 32.7, RDW Std Deviation 64.8 H, RDW Coeff of Melodie 17.3 H, Plt Count 89 L, MPV 11.4, Immature Gran % (Auto) FREIGHT TALLIER, Neut % (Auto) FREIGHT TALLIER, Lymph % (Auto) FREIGHT TALLIER, [place] % (Auto) FREIGHT TALLIER, Eos % (Auto) FREIGHT TALLIER, Baso % (Auto) FREIGHT TALLIER, Absolute Neuts (auto) 6.4, Absolute Lymphs (auto) 0.68 L, Total Counted 100, Neutrophils % (Manual) 80 H, Band Neutrophils % 1, Lymphocytes % (Manual) 9 L, Monocytes % (Manual) 5, Eosinophils % (Manual) 1, Basophils % (Manual) 1, Metamyelocytes % 1, Myelocytes % 2 H, Nucleated RBC % FREIGHT TALLIER, Nucleated RBCs/100 WBC 3, Diff Path Review May , Platelet Estimate SLT DEC, Polychromasia 1+, Anisocytosis 2+, Macrocytosis 1+ 11/28/22 06:54: POC Glucose 143 H Micro: Microbiology 11/25/22 03:57 Urine Catheter - Baires Urine Culture - Final Meth. resistant Staph. aureus 11/25/22 05:50 Blood Culture (Wb) - Central Line Blood Culture - Preliminary No growth in 48 hours. 11/25/22 06:08 Blood Culture (Wb) - Central Line Blood Culture - Preliminary No growth in 48 hours. Physical Exam Const alert and no apparent distress Neck no lymphadenopathy Resp normal respiratory effort, no retractions, no use of accessory muscles and clear to auscultation bilaterally Cardio regular rate, regular rhythm, S1 normal heart sound and S2 normal heart sound GI normal to inspection, nondistended, normoactive bowel sounds and soft to palpation Extremity Extremity Narrative: diminished pulses in LE. eschars over left 1st and 2nd toe. Assessment & Plan Assessment/Plan (1) Septic shock: PLAN: 07/19 UTI Admission SIRS: Respiratory rate more than 20, WBC more than 12,000 (15,100), PCO2 less than 32 mmHg (20.7 on presentation. Admission SOFA of 8 Pt did not receive 30cc/kg of IVF due concerns for worsening CHF from the presence of pleural effusions and LE edema Follow up cultures Had been on norepinephrine, but has been weaned off since 11/25 Continue pip/tazo, add vancomycin (2) Urinary tract infection: PLAN: on pip/tazo UCx shows MRSA BCx negative. Echo showed no evidence of endocarditis DC vanc, change to doxycycline and treat through the . (3) RODRIGUEZ (acute kidney injury): PLAN: Improving suspect ATN US unremarkable FENa 0.07 nephrology consulted (4) Respiratory distress: PLAN: POA 07/19 compensation for metabolic acidosis from septic shock improved with improvement of septic shock (5) LV (left ventricular) mural thrombus: PLAN: Still present on echo. Reviewed records: pt was on apixaban on 06/30 upon admission to TCU and not resumed upon discharge on 07/19. No documentation as to why that occurred. Will resume low-dose apixaban. (6) Dysphagia: PLAN: Transient choking spell Seen by ST, who recommends regular textures and thin liquids PLAN: Plan Chronic complicating conditions: * HFrEF, chronic: pleural effusion noted on CT, but rather small. No need for thoracentesis at this time. EF 30% from 2d echo on 08/13/21. Repeat echo pending. Resume carvedilol as BP allows. No ACEi/ARB given RODRIGUEZ. Repeat echo shows EF 35% * DM2, insulin-dependent: fair control. Currently on SSI and linagliptin * BPH: on tamsulosin * CAD: continue atorvastatin and clopidogrel * HTN: BP meds held given shock. Resume when appropriate. * Psoriasis: MTX currently on hold. * chronic pain: takes oxycodone outpt, therapeutic interchange with morphine * PAD: has follow up JANET on 12/[address] Navas for ABIs. Had moderate PAD on JANET from 12/07/21 Intertrigo of groin Nystatin powder ordered. DVT prophylaxis: apixaban
[2022-11-28 09:00] VITALS: BP 125/69; PULSE 77; RESP 16; TEMP 36.4; O2SAT 93
[2022-11-28] MEDS: buPROPion (XL) 150 MG TABLET.XL PO (09:01)
[2022-11-28] MEDS: Clopidogrel Bisulfate 75 MG Tablet PO (09:01)
[2022-11-28] MEDS: LINAGLIPTIN 5 MG TABLET PO (09:01)
[2022-11-28] MEDS: Folic Acid 1 MG Tablet PO (09:01)
[2022-11-28] MEDS: Senna/Docusate Sodium 1 Tablet PO (09:01)
[2022-11-28] MEDS: Loratadine 10 MG Tablet PO (09:01)
[2022-11-28] MEDS: APIXABAN 2.5 MG TABLET (WCH) PO (09:01)
[2022-11-28] MEDS: Venlafaxine XR 150 MG Capsule PO (09:01)
[2022-11-28] MEDS: Menthol/Lanolin/Calamine/Znox 113 GM Tube 1 APPLIC TOPICAL (09:02)
[2022-11-28] MEDS: Ipratropium Bromide 0.06% NASAL SPRAY 2 SPRAY NASAL (09:02)
[2022-11-28] MEDS: Triamcinolone Acetonide 0.1% Cream 15 gm 1 APPLIC TOPICAL (09:02)
[2022-11-28] MEDS: Glucerna Shake 120 ML LIQUID PO (09:10)
--- NOTE | 2022-11-28 10:13 | CASEMGMT ---
Discharge Planning Updates sent to [place] via [facility]. Nadya Ellis, Discharge Planning Asst.
[2022-11-28] MEDS: Insulin Lispro 100 UNIT/ML INSULN.PEN SC (11:06)
[2022-11-28] MEDS: Doxycycline 100 MG CAPSULE PO (11:06)
--- NOTE | 2022-11-28 11:16 | PCM.PN.REN ---
Subjective Subjective Patient sitting up in bed. Being seen by speech therapy. No overnight events. No complaints today. Objective Data Objective Data Vital Signs: Vital Signs Temp Pulse Resp BP Pulse Ox O2 Del Method O2 Flow Rate 97.6 F L 77 16 125/69 H 93 Room Air 2 11/28/22 09:00 11/28/22 09:00 11/28/22 09:00 11/28/22 09:00 11/28/22 09:00 11/28/22 09:00 11/28/22 03:00 FiO2 27 11/25/22 08:00 Oxygen Flow Rate (L/min) 2 Oxygen Delivery Method Room Air Weight: 91.7 kg Body Mass Index (BMI) 29.8 Intake & Output: Intake and Output for Last 24 Hours 11/26/22 11/27/22 11/28/22 23:59 23:59 23:59 Intake Total 2680 / 2680 690 / 810 220 / 220 Output Total 735 / 1135 600 / 1000 900 / 900 Balance 1945 / 1545 90 / -190 -680 / -680 Lab / Micro Data Result Diagrams: 11/28/22 06:10 11/28/22 06:10 Labs: Laboratory Results - last 24 hr 11/27/22 04:41: Diff Path Review Reviewed 11/27/22 12:03: POC Glucose 156 H 11/27/22 16:42: POC Glucose 161 H 11/27/22 22:46: POC Glucose 174 H 11/28/22 06:10: Sodium 141, Potassium 3.8, Chloride 115 H, Carbon Dioxide 21.0, Anion Gap 5, BUN 45 H, Creatinine 1.57 H, Estim Creat Clear Calc 42.53, Est GFR (MDRD) Af Amer 56 L, Est GFR (MDRD) Non-Af 46 L, BUN/Creatinine Ratio 28.7 H, Glucose 159 H, Calcium 7.7 L, Total Bilirubin 2.10 H, AST 1439 H, ALT 3282 H, Alkaline Phosphatase 113, Total Protein 5.2 L, Albumin 2.3 L, Globulin 2.9, Albumin/Globulin Ratio 0.8 L 11/28/22 06:10: WBC 7.6, RBC 3.07 L, Hgb 10.5 L, Hct 32.1 L, MCV 104.6 H, MCH 34.2 H, MCHC 32.7, RDW Std Deviation 64.8 H, RDW Coeff of Melodie 17.3 H, Plt Count 89 L, MPV 11.4, Immature Gran % (Auto) DISTRIBUTION SALES MANAGER, Neut % (Auto) DISTRIBUTION SALES MANAGER, Lymph % (Auto) DISTRIBUTION SALES MANAGER, [place] % (Auto) DISTRIBUTION SALES MANAGER, Eos % (Auto) DISTRIBUTION SALES MANAGER, Baso % (Auto) DISTRIBUTION SALES MANAGER, Absolute Neuts (auto) 6.4, Absolute Lymphs (auto) 0.68 L, Total Counted 100, Neutrophils % (Manual) 80 H, Band Neutrophils % 1, Lymphocytes % (Manual) 9 L, Monocytes % (Manual) 5, Eosinophils % (Manual) 1, Basophils % (Manual) 1, Metamyelocytes % 1, Myelocytes % 2 H, Nucleated RBC % DISTRIBUTION SALES MANAGER, Nucleated RBCs/100 WBC 3, Diff Path Review October, Platelet Estimate SLT DEC, Polychromasia 1+, Anisocytosis 2+, Macrocytosis 1+ 11/28/22 06:54: POC Glucose 143 H Micro: Microbiology 11/25/22 03:57 Urine Catheter - Baires Urine Culture - Final Meth. resistant Staph. aureus 11/25/22 05:50 Blood Culture (Wb) - Central Line Blood Culture - Preliminary No growth in 48 hours. 11/25/22 06:08 Blood Culture (Wb) - Central Line Blood Culture - Preliminary No growth in 48 hours. Physical Exam Narrative Alert and oriented x3, no apparent distress, ill-appearing Normal S1, S2, RRR Lungs clear anteriorly and posteriorly Abdomen soft, nontender, positive bowel sounds No pitting edema bilateral lower legs Assessment & Plan Assessment/Plan (1) RODRIGUEZ (acute kidney injury): (2) Hyperkalemia: (3) Acute metabolic acidosis: PLAN: Plan 72-year-old man with past history of type 2 diabetes mellitus, hypertension, CAD status post CABG, stroke, BPH, JENNIFER, PAD, hyperlipidemia, depression and psoriasis. The patient was admitted to the hospital on 11/25/2022 with septic shock due to UTI. Nephrology is following for acute kidney injury. - Nonoliguric Acute kidney injury likely secondary to ATN from sepsis. Baseline serum creatinine has been around 1.2 to 1.3 mg/dL. Renal ultrasound no hydronephrosis. Creatinine 1.86 mg/dL on admission (11/25), peaked 2.58 11/26 and today creatinine 1.57 mg/dL. No acute indication for MACHINE JOINT CUTTER. Patient is nonoliguric, appears to be near euvolemic. Encouraged patient to try and increase solute/fluid intake - Hyperkalemia/metabolic acidosis. Secondary to RODRIGUEZ and acute metabolic acidosis. Resolved. - Septic shock. Patient is now on oral doxycycline. BC so far no growth to date. - disposition: possible d/c to [facility]. Will arrange for hospital followup.
[2022-11-28 11:27] LABS: Bedside Glucose 204 mg/dL (74-106)
--- NOTE | 2022-11-28 11:27 | TREXTCAR_ITS ---
Diet Diet Order/Speech Therapy: 11/28/22 08:00 Diet: Cardiac - Heart Healthy Is pt able to select menu?: Yes Routine Orders/Code Status Routine Lab Work: CBC and BMP Code Status: Full Code Wound(s) Left great toe: Wound Type: Stasis Ulcer B/L Groin and Abdominal folds: Wound Type: Excoriation L 2nd toe: Wound Type: Stasis Ulcer Therapies Physical Therapy: Eval and Treat Occupational Therapy: Eval and Treat Problem/Diagnosis (1) Septic shock: Status: Acute Code(s): A41.9 - Sepsis, unspecified organism; R65.21 - Severe sepsis with septic shock Plan: 07/19 UTI Admission SIRS: Respiratory rate more than 20, WBC more than 12,000 (15,100), PCO2 less than 32 mmHg (20.7 on presentation. Admission SOFA of 8 Pt did not receive 30cc/kg of IVF due concerns for worsening CHF from the presence of pleural effusions and LE edema Follow up cultures Had been on norepinephrine, but has been weaned off since 11/25 Continue pip/tazo, add vancomycin (2) Urinary tract infection: Status: Acute Code(s): N39.0 - Urinary tract infection, site not specified Plan: on pip/tazo UCx shows MRSA BCx negative. Echo showed no evidence of endocarditis DC vanc, change to doxycycline and treat through the . (3) RODRIGUEZ (acute kidney injury): Status: Acute Code(s): N17.9 - Acute kidney failure, unspecified Plan: Improving suspect ATN US unremarkable FENa 0.07 nephrology consulted (4) Respiratory distress: Status: Acute Code(s): R06.03 - Acute respiratory distress Plan: POA 07/19 compensation for metabolic acidosis from septic shock improved with improvement of septic shock (5) LV (left ventricular) mural thrombus: Status: Acute Code(s): I51.3 - Intracardiac thrombosis, not elsewhere classified Plan: Still present on echo. Reviewed records: pt was on apixaban on 06/30 upon admission to TCU and not resumed upon discharge on 07/19. No documentation as to why that occurred. Will resume low-dose apixaban. (6) Dysphagia: Status: Acute Code(s): R13.10 - Dysphagia, unspecified Plan: Transient choking spell Seen by ST, who recommends regular textures and thin liquids Plan Chronic complicating conditions: * HFrEF, chronic: pleural effusion noted on CT, but rather small. No need for thoracentesis at this time. EF 30% from 2d echo on 08/13/21. Repeat echo pending. Resume carvedilol as BP allows. No ACEi/ARB given RODRIGUEZ. Repeat echo shows EF 35% * DM2, insulin-dependent: fair control. Currently on SSI and linagliptin * BPH: on tamsulosin * CAD: continue atorvastatin and clopidogrel * HTN: BP meds held given shock. Resume when appropriate. * Psoriasis: MTX currently on hold. * chronic pain: takes oxycodone outpt, therapeutic interchange with morphine * PAD: has follow up JANET on 12/[address] Navas for ABIs. Had moderate PAD on JANET from 12/07/21 Intertrigo of groin Nystatin powder ordered. DVT prophylaxis: apixaban Allergies/Procedures Done in Hospital Allergies morphine Allergy (Verified 11/25/22 02:51) PT UNSURE OF REACTION i was told after surgery that i shouldn't have it rivaroxaban [From Xarelto] Allergy (Verified 11/25/22 02:51) Other developed blisters on his legs Procedures: 2-D Echocardiogram Type of Care/Length of Stay Estimated LOS: Convalescent Care Less Than 30 days Type of Care Needed: Skilled Rehab Potential: Fair Prognosis: Fair Additional Orders/Day of Discharge Day of Discharge: 11/28/22 Dietary and Speech Recommendations Dietitian Recommendations/Changes: continue cardiac, 1800 calorie controlled diet; will order 4 oz glucerna shake 4x/day w/ medpass for increased nutrition if consumed. Discharge Plan Admission Admit Date/Time: 11/25/22 06:00 Primary Reason for Your Visit: Septic shock Attending Provider: Gen Lennon Primary Care Provider: Bryce Camacho Consulting Providers: Sina Caldera ; Fletcher Tarango ; Barrera Messer ; Charito Naidu Discharge Orders/Prescriptions Prescriptions: New doxycycline monohydrate 100 mg Capsule 100 mg PO BID Qty: 0 0RF Glucerna 1.2 Mustapha 0.06-1.2 gram-kcal/mL Liquid 120 ml PO 4X/DAY Qty: 0 0RF nystatin [Nyamyc] 100,000 unit/gram Powder 1 applic topical TID Qty: 0 0RF Protocol: *Topical Application Instructions APPLICATION INSTRUCTIONS: To bilateral inguinal folds insulin lispro [Humalog KwikPen Insulin] 100 unit/mL Insulin Pen See Protocol subcut ACHS Qty: 0 0RF Protocol: 2. Sliding Scale Insulin Low-Med Dosing Condition: 150-209 mg/dl = 1 unit Condition: 210-269 mg/dl = 2 units Condition: 270-329 mg/dl = 3 units Condition: 330-389 mg/dl = 4 units Condition: 390-449 mg/dl = 5 units Condition: Greater than 449 call physician Protocol Text: - Use for Total Daily Dose of Insulin 28-36 units - Average size patients LOW MEDIUM DOSING ALGORITHM apixaban 5 mg tablet 5 mg PO BID Qty: 60 0RF Continued triamcinolone acetonide 0.1 % cream 1 applic topical DAILY bisacodyl 10 mg Suppository 10 mg [place] .PRN X 1 PRN (Reason: Constipation) Qty: 0 0RF carvedilol 6.25 mg tablet 6.25 mg PO BIDCM venlafaxine 75 mg tablet 150 mg PO DAILY atorvastatin 10 mg tablet 10 mg PO QHS sennosides-docusate sodium [Stool Softener-Stimulant Laxat] 8.6-50 mg tablet 1 tab PO BID clopidogrel 75 mg tablet 75 mg PO DAILY methotrexate sodium 2.5 mg tablet 17.5 mg PO FR tamsulosin 0.4 mg capsule 0.4 mg PO DAILY@1730 folic acid 1 mg tablet 1 mg PO BREAKFAST ipratropium bromide 42 mcg (0.06 %) spray,non-aerosol 2 spray NASAL BID Deep Sea Nasal 0.65 % aerosol,spray 2 spray NASAL TID bupropion HCl 150 mg tablet extended release 24 hr 150 mg PO DAILY menthol-zinc oxide [Calmoseptine] 0.44-20.6 % ointment 1 applic topical BID Protocol: *Topical Application Instructions APPLICATION INSTRUCTIONS: BILAT BUTTOCKS Tradjenta 5 mg tablet 5 mg PO DAILY insulin lispro [Humalog KwikPen Insulin] 100 unit/mL Insulin Pen 10 unit subcut TIDAC Qty: 0 0RF loratadine [Claritin] 10 mg Tablet 10 mg PO DAILY acetaminophen 500 mg tablet 1,000 mg PO Q8 PRN (Reason: Pain) Discontinued potassium chloride [Klor-Con M20] 20 mEq tablet,ER particles/crystals 20 meq PO DAILYCM oxycodone 5 mg tablet 5 mg PO Q6H PRN PRN (Reason: Pain Score 6-10) Referrals / Follow Up: Lex Navas MD [Med Staff - Active Staff] - 12/07/22 2:00 pm Bryce Camacho MD [Primary Care Provider] - Within 2 Weeks Disposition Disposition (needs filled in before D/C Order can be placed): Care Home Facility
--- NOTE | 2022-11-28 11:34 | DS.PCM_ITS ---
Providers Date of Admission: 11/25/22 Primary Care Physician: Dr. Bryce Camacho MD Consultations 11/25/22 08:26 Consult: [facility] / Pulmonary Medicine Routine Consulting Provider: Barrera Messer Reason for Consult: Septic shock EMERGENT Consult: No Notified: Yes Date Notified: 11/25/22 Time Notified: 06:22 Method of Notification: Verbal 11/26/22 06:48 Consult: Nephrology Routine Consulting Provider: Charito Naidu Reason for Consult: RODRIGUEZ EMERGENT Consult: No Notified: Yes Date Notified: 11/26/22 Time Notified: 06:48 Method of Notification: Answering Service Reason For Visit: SEPTIC SHOCK Diagnosis Discharge Diagnosis (1) Septic shock: Status: Acute Code(s): A41.9 - Sepsis, unspecified organism; R65.21 - Severe sepsis with septic shock Plan: 07/19 UTI Admission SIRS: Respiratory rate more than 20, WBC more than 12,000 (15,100), PCO2 less than 32 mmHg (20.7 on presentation. Admission SOFA of 8 Pt did not receive 30cc/kg of IVF due concerns for worsening CHF from the presence of pleural effusions and LE edema Follow up cultures Had been on norepinephrine, but has been weaned off since 11/25 Continue pip/tazo, add vancomycin (2) Urinary tract infection: Status: Acute Code(s): N39.0 - Urinary tract infection, site not specified Plan: on pip/tazo UCx shows MRSA BCx negative. Echo showed no evidence of endocarditis DC vanc, change to doxycycline and treat through the . (3) RODRIGUEZ (acute kidney injury): Status: Acute Code(s): N17.9 - Acute kidney failure, unspecified Plan: Improving suspect ATN US unremarkable FENa 0.07 nephrology consulted (4) Respiratory distress: Status: Acute Code(s): R06.03 - Acute respiratory distress Plan: POA 2/2 compensation for metabolic acidosis from septic shock improved with improvement of septic shock (5) LV (left ventricular) mural thrombus: Status: Acute Code(s): I51.3 - Intracardiac thrombosis, not elsewhere classified Plan: Still present on echo. Reviewed records: pt was on apixaban on 06/30 upon admission to TCU and not resumed upon discharge on 07/19. No documentation as to why that occurred. Will resume low-dose apixaban. (6) Dysphagia: Status: Acute Code(s): R13.10 - Dysphagia, unspecified Plan: Transient choking spell Seen by ST, who recommends regular textures and thin liquids Plan Chronic complicating conditions: * HFrEF, chronic: pleural effusion noted on CT, but rather small. No need for thoracentesis at this time. EF 30% from 2d echo on 08/13/21. Repeat echo pending. Resume carvedilol as BP allows. No ACEi/ARB given RODRIGUEZ. Repeat echo shows EF 35% * DM2, insulin-dependent: fair control. Currently on SSI and linagliptin * BPH: on tamsulosin * CAD: continue atorvastatin and clopidogrel * HTN: BP meds held given shock. Resume when appropriate. * Psoriasis: MTX currently on hold. * chronic pain: takes oxycodone outpt, therapeutic interchange with morphine * PAD: has follow up JANET on 12/[address] Navas for ABIs. Had moderate PAD on JANET from 12/07/21 Intertrigo of groin Nystatin powder ordered. DVT prophylaxis: apixaban Medications at Discharge Home Medications atorvastatin 10 mg tablet 10 mg PO QHS Cholesterol 06/30/22 bisacodyl 10 mg rectal suppository 10 mg [place] .PRN X 1 PRN Constipation #0 ea 06/30/22 bupropion HCl 150 mg 24 hr tablet, extended release 150 mg PO DAILY Mood 06/30/22 carvedilol 6.25 mg tablet 6.25 mg PO BIDCM BP 06/30/22 clopidogrel 75 mg tablet 75 mg PO DAILY Blood Thinner 06/30/22 folic acid 1 mg tablet 1 mg PO BREAKFAST Supplement 06/30/22 ipratropium bromide 42 mcg (0.06 %) nasal spray 2 spray NASAL BID Check with primary doctor 06/30/22 linagliptin 5 mg tablet (Tradjenta) 5 mg PO DAILY Diabetes 06/30/22 menthol 0.44 %-zinc oxide 20.6 % topical ointment (Calmoseptine) 1 applic topical BID Skin 06/30/22 methotrexate sodium 2.5 mg tablet 17.5 mg PO FR Psoriasis 06/30/22 sennosides 8.6 mg-docusate sodium 50 mg tablet (Stool Softener-Stimulant Laxative) 1 tab PO BID Constipation 06/30/22 sodium chloride 0.65 % nasal spray aerosol (Deep Sea Nasal) 2 spray NASAL TID Congestion 06/30/22 tamsulosin 0.4 mg capsule 0.4 mg PO DAILY@1730 Retention 06/30/22 venlafaxine 75 mg tablet 150 mg PO DAILY Mood 06/30/22 insulin lispro 100 unit/mL subcutaneous pen (Humalog KwikPen (U-100) Insulin) 10 unit (0.1 mL) subcut TIDAC #0 mL 07/19/22 triamcinolone acetonide 0.1 % topical cream 1 applic topical DAILY 09/19/22 acetaminophen 500 mg tablet 1,000 mg PO Q8 PRN Pain 11/25/22 loratadine 10 mg tablet (Claritin) 10 mg PO DAILY 11/25/22 apixaban 5 mg tablet 5 mg PO BID #60 tabs 11/28/22 doxycycline monohydrate 100 mg capsule 100 mg PO BID #0 caps 11/28/22 insulin lispro 100 unit/mL subcutaneous pen (Humalog KwikPen (U-100) Insulin) See Protocol subcut ACHS #0 mL 11/28/22 nutrition tx glu intol,lac-free,soy-fiber 0.06 gram-1.2 kcal/mL liquid (Glucerna 1.2 Mustapha) 120 ml PO 4X/DAY #0 mL 11/28/22 nystatin 100,000 unit/gram topical powder (Nyamyc) 1 applic topical TID #0 grams 11/28/22 Hospital Course Procedures 2-D Echocardiogram Summary of Care Provided Minutes Spent on Discharge: 32 Hospital Course: 70-year-old male presents with septic shock secondary to MRSA urinary tract infection. Patient started broad-spectrum antibiotics with Zosyn and vancomycin. Overall is status did improve. Culture did show MRSA so vancomycin was added but patient to be discharged with doxycycline to complete the . Patient also had acute kidney injury which improved with IV fluids. Patient had a spell where he did vomit after eating but was seen by speech therapy and recommended regular texture diet for him with thin liquids. Weight / BMI Weight Weight: 91.7 kg Body Mass Index (BMI) 29.8 ABG / Lab / Microbiology Data Result Diagrams: 11/28/22 06:10 11/28/22 06:10 Laboratory: Laboratory Results - last 24 hr 11/27/22 04:41: Diff Path Review Reviewed 11/27/22 12:03: POC Glucose 156 H 11/27/22 16:42: POC Glucose 161 H 11/27/22 22:46: POC Glucose 174 H 11/28/22 06:10: Sodium 141, Potassium 3.8, Chloride 115 H, Carbon Dioxide 21.0, Anion Gap 5, BUN 45 H, Creatinine 1.57 H, Estim Creat Clear Calc 42.53, Est GFR (MDRD) Af Amer 56 L, Est GFR (MDRD) Non-Af 46 L, BUN/Creatinine Ratio 28.7 H, Glucose 159 H, Calcium 7.7 L, Total Bilirubin 2.10 H, AST 1439 H, ALT 3282 H, Alkaline Phosphatase 113, Total Protein 5.2 L, Albumin 2.3 L, Globulin 2.9, Albumin/Globulin Ratio 0.8 L 11/28/22 06:10: WBC 7.6, RBC 3.07 L, Hgb 10.5 L, Hct 32.1 L, MCV 104.6 H, MCH 34.2 H, MCHC 32.7, RDW Std Deviation 64.8 H, RDW Coeff of Melodie 17.3 H, Plt Count 89 L, MPV 11.4, Immature Gran % (Auto) [employer]OR[employer] WRITER, Neut % (Auto) [employer] WRITER, Lymph % (Auto) [employer] WRITER, [place] % (Auto) [employer]OR[employer] WRITER, Eos % (Auto) [employer] WRITER, Baso % (Auto) [employer]OR[employer] WRITER, Absolute Neuts (auto) 6.4, Absolute Lymphs (auto) 0.68 L, Total Counted 100, Neutrophils % (Manual) 80 H, Band Neutrophils % 1, Lymphocytes % (Manual) 9 L, Monocytes % (Manual) 5, Eosinophils % (Manual) 1, Basophils % (Manual) 1, Metamyelocytes % 1, Myelocytes % 2 H, Nucleated RBC % SPOR[employer] WRITER, Nucleated RBCs/100 WBC 3, Diff Path Review May foll, Platelet Estimate SLT DEC, Polychromasia 1+, Anisocytosis 2+, Macrocytosis 1+ 11/28/22 06:54: POC Glucose 143 H 11/28/22 11:04: POC Glucose 204 H Microbiology: Microbiology 11/25/22 03:57 Urine Catheter - Baires Urine Culture - Final Meth. resistant Staph. aureus 11/25/22 05:50 Blood Culture (Wb) - Central Line Blood Culture - Preliminary No growth in 48 hours. 11/25/22 06:08 Blood Culture (Wb) - Central Line Blood Culture - Preliminary No growth in 48 hours. Meaningful Use Info Meaningful Use Diagnoses (Choose all that apply): None applicable Discharge Plan Admission Admit Date/Time: 11/25/22 06:00 Primary Reason for Your Visit: Septic shock Attending Provider: Gen Lennon Primary Care Provider: Bryce Camacho Consulting Providers: Sina Caldera ; Fletcher Tarango Bruce ; Charito Naidu Discharge Orders/Prescriptions Prescriptions: New doxycycline monohydrate 100 mg Capsule 100 mg PO BID Qty: 0 0RF Glucerna 1.2 Mustapha 0.06-1.2 gram-kcal/mL Liquid 120 ml PO 4X/DAY Qty: 0 0RF nystatin [Nyamyc] 100,000 unit/gram Powder 1 applic topical TID Qty: 0 0RF Protocol: *Topical Application Instructions APPLICATION INSTRUCTIONS: To bilateral inguinal folds insulin lispro [Humalog KwikPen Insulin] 100 unit/mL Insulin Pen See Protocol subcut ACHS Qty: 0 0RF Protocol: 2. Sliding Scale Insulin Low-Med Dosing Condition: 150-209 mg/dl = 1 unit Condition: 210-269 mg/dl = 2 units Condition: 270-329 mg/dl = 3 units Condition: 330-389 mg/dl = 4 units Condition: 390-449 mg/dl = 5 units Condition: Greater than 449 call physician Protocol Text: - Use for Total Daily Dose of Insulin 28-36 units - Average size patients LOW MEDIUM DOSING ALGORITHM apixaban 5 mg tablet 5 mg PO BID Qty: 60 0RF Continued triamcinolone acetonide 0.1 % cream 1 applic topical DAILY bisacodyl 10 mg Suppository 10 mg [place] .PRN X 1 PRN (Reason: Constipation) Qty: 0 0RF carvedilol 6.25 mg tablet 6.25 mg PO BIDCM venlafaxine 75 mg tablet 150 mg PO DAILY atorvastatin 10 mg tablet 10 mg PO QHS sennosides-docusate sodium [Stool Softener-Stimulant Laxat] 8.6-50 mg tablet 1 tab PO BID clopidogrel 75 mg tablet 75 mg PO DAILY methotrexate sodium 2.5 mg tablet 17.5 mg PO FR tamsulosin 0.4 mg capsule 0.4 mg PO DAILY@1730 folic acid 1 mg tablet 1 mg PO BREAKFAST ipratropium bromide 42 mcg (0.06 %) spray,non-aerosol 2 spray NASAL BID Deep Sea Nasal 0.65 % aerosol,spray 2 spray NASAL TID bupropion HCl 150 mg tablet extended release 24 hr 150 mg PO DAILY menthol-zinc oxide [Calmoseptine] 0.44-20.6 % ointment 1 applic topical BID Protocol: *Topical Application Instructions APPLICATION INSTRUCTIONS: BILAT BUTTOCKS Tradjenta 5 mg tablet 5 mg PO DAILY insulin lispro [Humalog KwikPen Insulin] 100 unit/mL Insulin Pen 10 unit subcut TIDAC Qty: 0 0RF loratadine [Claritin] 10 mg Tablet 10 mg PO DAILY acetaminophen 500 mg tablet 1,000 mg PO Q8 PRN (Reason: Pain) Discontinued potassium chloride [Klor-Con M20] 20 mEq tablet,ER particles/crystals 20 meq PO DAILYCM oxycodone 5 mg tablet 5 mg PO Q6H PRN PRN (Reason: Pain Score 6-10) Referrals / Follow Up: Lex Navas MD [Med Staff - Active Staff] - 12/07/22 2:00 pm Bryce Camacho MD [Primary Care Provider] - Within 2 Weeks Disposition Disposition (needs filled in before D/C Order can be placed): Longterm Facility Charges/Coding Visit Charges Inpatient E&M: 93860 Disch Hosp >30min
--- NOTE | 2022-11-28 12:00 | CASEMGMT ---
Discharge Planning Discharge orders, signed med list, covid results and transport time sent to [facility]. Transport scheduled for 1p with Phys[facility]. SW and nursing notified. Nadya Ellis, Discharge Planning Asst.
--- NOTE | 2022-11-28 12:02 | PHA.DC.MR ---
Pharmacy Service has performed discharge medication reconciliation for this patient. The patient's discharge medication list was reviewed for discrepancies and discrepancies were resolved. Home Medications atorvastatin 10 mg tablet 10 mg PO QHS Cholesterol 06/30/22 bisacodyl 10 mg rectal suppository 10 mg [place] .PRN X 1 PRN Constipation #0 ea 06/30/22 bupropion HCl 150 mg 24 hr tablet, extended release 150 mg PO DAILY Mood 06/30/22 carvedilol 6.25 mg tablet 6.25 mg PO BIDCM BP 06/30/22 clopidogrel 75 mg tablet 75 mg PO DAILY Blood Thinner 06/30/22 folic acid 1 mg tablet 1 mg PO BREAKFAST Supplement 06/30/22 ipratropium bromide 42 mcg (0.06 %) nasal spray 2 spray NASAL BID Check with primary doctor 06/30/22 linagliptin 5 mg tablet (Tradjenta) 5 mg PO DAILY Diabetes 06/30/22 menthol 0.44 %-zinc oxide 20.6 % topical ointment (Calmoseptine) 1 applic topical BID Skin 06/30/22 methotrexate sodium 2.5 mg tablet 17.5 mg PO FR Psoriasis 06/30/22 sennosides 8.6 mg-docusate sodium 50 mg tablet (Stool Softener-Stimulant Laxative) 1 tab PO BID Constipation 06/30/22 sodium chloride 0.65 % nasal spray aerosol (Deep Sea Nasal) 2 spray NASAL TID Congestion 06/30/22 tamsulosin 0.4 mg capsule 0.4 mg PO DAILY@1730 Retention 06/30/22 venlafaxine 75 mg tablet 150 mg PO DAILY Mood 06/30/22 insulin lispro 100 unit/mL subcutaneous pen (Humalog KwikPen (U-100) Insulin) 10 unit (0.1 mL) subcut TIDAC #0 mL 07/19/22 triamcinolone acetonide 0.1 % topical cream 1 applic topical DAILY 09/19/22 acetaminophen 500 mg tablet 1,000 mg PO Q8 PRN Pain 11/25/22 loratadine 10 mg tablet (Claritin) 10 mg PO DAILY 11/25/22 apixaban 5 mg tablet 5 mg PO BID #60 tabs 11/28/22 doxycycline monohydrate 100 mg capsule 100 mg PO BID #0 caps 11/28/22 insulin lispro 100 unit/mL subcutaneous pen (Humalog KwikPen (U-100) Insulin) See Protocol subcut ACHS #0 mL 11/28/22 nutrition tx glu intol,lac-free,soy-fiber 0.06 gram-1.2 kcal/mL liquid (Glucerna 1.2 Mustapha) 120 ml PO 4X/DAY #0 mL 11/28/22 nystatin 100,000 unit/gram topical powder (Nyamyc) 1 applic topical TID #0 grams 11/28/22
--- NOTE | 2022-11-28 12:15 | CASEMGMT ---
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 Plan: d/c back to [facility] under skilled level of care. Physicians will transport patient. Tanisha BECERRA
[2022-11-28 12:34] LABS: Pathologist Review Reviewed
== END 2022-11-28 13:01 | disposition skilled nursing facility (03) | DRG 871 ==
LOC: ED 06:38 → ICU 06:48 → PCU 11-27 10:44
PROVIDERS: Family Medicine; Internal Medicine Nephrology; Nurse Practitioner Adult Health; Admitting Provider Hospitalist; Emergency Provider Emergency Medicine; PCP Family Medicine
DX: A41.9 Sepsis, unspecified organism (principal); J96.00 Acute respiratory failure, unspecified whether with hypoxia or hypercapnia; N17.0 Acute kidney failure with tubular necrosis; R65.21 Severe sepsis with septic shock; I50.22 Chronic systolic (congestive) heart failure; I13.0 Hypertensive heart and chronic kidney disease with heart failure and stage 1 through stage 4 chronic kidney disease, or unspecified chronic kidney disease; N39.0 Urinary tract infection, site not specified; E87.21 Acute metabolic acidosis; Z79.4 Long term (current) use of insulin; E11.42 Type 2 diabetes mellitus with diabetic polyneuropathy; L97.524 Non-pressure chronic ulcer of other part of left foot with necrosis of bone; E11.22 Type 2 diabetes mellitus with diabetic chronic kidney disease; E11.51 Type 2 diabetes mellitus with diabetic peripheral angiopathy without gangrene; E11.621 Type 2 diabetes mellitus with foot ulcer; M06.9 Rheumatoid arthritis, unspecified; I25.10 Atherosclerotic heart disease of native coronary artery without angina pectoris; N18.2 Chronic kidney disease, stage 2 (mild); E78.5 Hyperlipidemia, unspecified; E87.5 Hyperkalemia; I87.2 Venous insufficiency (chronic) (peripheral); L30.4 Erythema intertrigo; R13.10 Dysphagia, unspecified; M62.81 Muscle weakness (generalized); N40.1 Benign prostatic hyperplasia with lower urinary tract symptoms; R31.29 Other microscopic hematuria; R39.11 Hesitancy of micturition; R35.1 Nocturia; I51.3 Intracardiac thrombosis, not elsewhere classified; G89.29 Other chronic pain; Z20.822 Contact with and (suspected) exposure to COVID-19; Z79.02 Long term (current) use of antithrombotics/antiplatelets; Z79.899 Other long term (current) drug therapy; Z86.73 Personal history of transient ischemic attack (TIA), and cerebral infarction without residual deficits; Z95.1 Presence of aortocoronary bypass graft
CPT/HCPCS: 36415; 36556; 36600; 71045; 71250; 76770; 80048; 80053; 80069; 81001; 82570; 82803; 82962; 83605; 83735; 83880; 84100; 84145; 84300; 84484; 85025; 85610; 85730; 86850; 86900; 86901; 87040; 87077; 87086; 87088; 87186; 87426; 92526; 92610; 93005; 93306; 94660; 97162; 97166; 97530; 97535; 97802; 99285; J7030; J7040; J7050; J7120; Q9957; A4216; C1751; C8929; J2405

== ENCOUNTER 2022-11-28 19:39 | Emergency (ER) | payer MEDICARE, OTHER, MEDICAID, SELFPAY ==
[2022-11-28 19:41] VITALS: BP 138/81; PULSE 87; RESP 15; TEMP 36.2; O2SAT 95; BMI 29.6
[2022-11-28 19:50] VITALS: O2SAT 94
--- NOTE | 2022-11-28 20:16 | EDS_ITS ---
HPI History of Present Illness Chief Complaint: Head Injury Informant: patient and EMS Onset/Context/Timing Onset: Today Narrative Narrative: Patient presents via EMS after an unwitnessed fall at local [facility]. Patient was just admitted to the hospital with septic shock secondary to UTI. He was discharged earlier today. [facility] staff reported found him on the floor. Patient states that he got up and his legs gave out on him and he fell to the ground. He denies that he lost consciousness. He does have multiple facial lacerations with bleeding. He is complaining of back spasms at the time of my exam. 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, with necrosis of bone Erectile dysfunction Failure to thrive Fatigue Foot drop, left foot History of multiple strokes History of right common carotid artery stent placement Hyperlipidemia Hypertension Insomnia LV (left ventricular) mural thrombus JENNIFER (obstructive sleep apnea) Peripheral arterial occlusive disease Psoriasis Psoriatic arthritis Stroke Type 2 diabetes mellitus with diabetic polyneuropathy Home Medications atorvastatin 10 mg tablet 10 mg PO QHS Cholesterol 06/30/22 [History Last Taken Unknown] bisacodyl 10 mg rectal suppository 10 mg DE .PRN X 1 PRN Constipation #0 ea 06/30/22 [Rx Last Taken Unknown] bupropion HCl 150 mg 24 hr tablet, extended release 150 mg PO DAILY Mood 06/30/22 [History Last Taken Unknown] carvedilol 6.25 mg tablet 6.25 mg PO BIDCM BP 06/30/22 [History Last Taken Unknown] clopidogrel 75 mg tablet 75 mg PO DAILY Blood Thinner 06/30/22 [History Last Taken Unknown] folic acid 1 mg tablet 1 mg PO BREAKFAST Supplement 06/30/22 [History Last Taken Unknown] ipratropium bromide 42 mcg (0.06 %) nasal spray 2 spray NASAL BID Check with primary doctor 06/30/22 [History Last Taken Unknown] linagliptin 5 mg tablet (Tradjenta) 5 mg PO DAILY Diabetes 06/30/22 [History Last Taken Unknown] menthol 0.44 %-zinc oxide 20.6 % topical ointment (Calmoseptine) 1 applic topical BID Skin 06/30/22 [History Last Taken Unknown] methotrexate sodium 2.5 mg tablet 17.5 mg PO FR Psoriasis 06/30/22 [History Last Taken Unknown] sennosides 8.6 mg-docusate sodium 50 mg tablet (Stool Softener-Stimulant Laxative) 1 tab PO BID Constipation 06/30/22 [History Last Taken Unknown] sodium chloride 0.65 % nasal spray aerosol (Deep Sea Nasal) 2 spray NASAL TID Congestion 06/30/22 [History Last Taken Unknown] tamsulosin 0.4 mg capsule 0.4 mg PO DAILY@1730 Retention 06/30/22 [History Last Taken Unknown] venlafaxine 75 mg tablet 150 mg PO DAILY Mood 06/30/22 [History Last Taken Unknown] insulin lispro 100 unit/mL subcutaneous pen (Humalog KwikPen (U-100) Insulin) 10 unit (0.1 mL) subcut TIDAC #0 mL 07/19/22 [Rx Last Taken Unknown] triamcinolone acetonide 0.1 % topical cream 1 applic topical DAILY 09/19/22 [History Last Taken Unknown] acetaminophen 500 mg tablet 1,000 mg PO Q8 PRN Pain 11/25/22 [History Last Taken Unknown] loratadine 10 mg tablet (Claritin) 10 mg PO DAILY 11/25/22 [History Last Taken Unknown] apixaban 5 mg tablet 5 mg PO BID #60 tabs 11/28/22 [Rx Last Taken Unknown] cephalexin 500 mg capsule 500 mg PO Q12 #14 CAPSULES 11/28/22 [Rx Last Taken Unknown] doxycycline monohydrate 100 mg capsule 100 mg PO BID #0 caps 11/28/22 [Rx Last Taken Unknown] insulin lispro 100 unit/mL subcutaneous pen (Humalog KwikPen (U-100) Insulin) See Protocol subcut ACHS #0 mL 11/28/22 [Rx Last Taken Unknown] nutrition tx glu intol,lac-free,soy-fiber 0.06 gram-1.2 kcal/mL liquid (Glucerna 1.2 Mustapha) 120 ml PO 4X/DAY #0 mL 11/28/22 [Rx Last Taken Unknown] nystatin 100,000 unit/gram topical powder (Nyamyc) 1 applic topical TID #0 grams 11/28/22 [Rx Last Taken Unknown] Allergy/AdvReac Type Severity Reaction Status Date / Time morphine Allergy PT UNSURE Verified 11/25/22 02:51 OF REACTION rivaroxaban [From Xarelto] Allergy Other Verified 11/25/22 02:51 Family History Mother CVA (cerebral vascular accident) Diabetes Heart disease Hypertension Father Diabetes Heart disease Pulmonary disease Surgical History History of back surgery Hx of CABG S/P peripheral artery bypass Status post right foot surgery Social History household members: spouse Smoking Status: Never smoker alcohol intake: never substance use type: does not use ROS ROS ED Constitutional Constitutional ED: Denies chills or fever(s) Eyes Eyes: Denies change in vision or discharge from eye(s) ENT ENT ED: Denies discharge from eye(s) or rhinorrhea Cardiovascular Cardiovascular: Denies chest pain or palpitations Respiratory/Chest Respiratory/Chest: Denies cough or dyspnea Gastrointestinal Gastrointestinal: Denies abdominal pain, diarrhea, nausea or vomiting Genitourinary Genitourinary ED: Denies dysuria Musculoskeletal Musculoskeletal: Reports back pain; Denies extremity pain Integumentary Reports other Details: Forehead laceration and facial abrasions Neurologic Neurologic: Denies headache(s) or weakness Psychiatric Psychiatric: Denies anxiety or depression Endocrine Endocrinology: Denies polydipsia or polyuria Allergic/Immunologic Allergic/Immunologic ED: Denies lip swelling or urticaria EXAM Physical Exam Const Vital Signs: 11/28/22 19:41 11/28/22 19:50 11/28/22 19:50 Temperature 97.2 F L Temperature Source Temporal Pulse Rate 87 Respiratory Rate 15 Respiratory Effort Normal Non-Labored Normal Non-Labored Respiratory Depth Normal Respiratory Pattern Normal Normal Blood Pressure 138/81 H Blood Pressure Mean 100 Pulse Ox 95 94 Oxygen Delivery Method Room Air Room Air Positive well nourished and well developed General Appearance ED: well developed HEENT Reports moist mucous membranes HEENT Narrative: 3 cm laceration just superior to the left eyebrow. Minimal bleeding at this time. Extraocular movements are intact. Abrasion with swelling noted to the upper lip on the left. Ecchymosis noted to the nose with blood in the nares bilaterally. Eyes EOMs intact bilaterally Neck no lymphadenopathy Chest Wall inspection of chest normal and palpation of chest normal Resp normal respiratory effort and clear to auscultation bilaterally Cardio regular rate and regular rhythm GI GI Narrative: Abdomen soft and nontender. Extremity Extremity Narrative: No pain with logroll of the lower extremities. Neuro oriented x3 Neuro Narrative: Chronic left-sided weakness secondary to prior strokes. Skin Skin Narrative: Laceration, abrasions as above MDM MDM MDM Narrative Medical decision making narrative: Lab work obtained and patient sent for CT imaging of the head, facial bones, C- spine, chest, abdomen, and pelvis. He developed right foot pain and x-ray of this was also obtained. Tetanus update provided as I was not able to find evidence of prior tetanus update. Lab Data Attestation: I reviewed the patient's lab results. Labs: Laboratory Results - last 24 hr 11/28/22 11/28/22 11/28/22 20:28 20:28 20:35 [employer] Corrected WBC 9.0 RBC 3.46 L Hgb 11.7 L Hct 36.6 L MCV 105.8 H MCH 33.8 H MCHC 32.0 RDW Std Deviation 67.7 H RDW Coeff of Melodie 18.5 H Plt Count 114 L MPV 11.3 Neut % (Auto) Not Reportable Absolute Neuts (auto) 7.3 Absolute Lymphs (auto) 0.54 L Total Counted 100 Neutrophils % (Manual) 68 Band Neutrophils % 2 Lymphocytes % (Manual) 6 L Monocytes % (Manual) 5 Eosinophils % (Manual) 7 H Basophils % (Manual) 1 Metamyelocytes % 8 H Myelocytes % 3 H Nucleated RBCs/100 WBC 5 Diff Path Review May foll Platelet Estimate SLT DEC Polychromasia 1+ Anisocytosis 2+ Macrocytosis 1+ PT 27.8 H INR 2.6 APTT 36.5 H Sodium 141 Potassium 4.6 Chloride 115 H Carbon Dioxide 20.0 L Anion Gap 6 BUN 40 H Creatinine 1.56 H Estim Creat Clear Calc 44.20 Est GFR (MDRD) Af Amer 56 L Est GFR (MDRD) Non-Af 47 L BUN/Creatinine Ratio 25.6 H Glucose 161 H Calcium 8.4 L Radiography Diagnostic Testing: Clinical Impression(s) from Imaging Studies Brain CT 11/28/22 20:50 IMPRESSION: Chronic involutional changes of the brain. No acute intracranial abnormalities. Electronically Signed: Beni Harry MD at 21:16 EDT , Cervical Spine CT 11/28/22 20:50 IMPRESSION: There is no definite acute fracture/dislocation. Degenerative changes. Electronically Signed: Beni Harry MD at 21:29 EDT , Chest/Abdomen/Pelvis CT 11/28/22 20:50 IMPRESSION: Prominent pleural effusions in the chest with prominent compressive atelectasis of both lungs. Probable mild diffuse pulmonary edema. No definite acute injuries or abnormalities in the abdomen or pelvis. Chronic findings as above. Electronically Signed: Beni Harry MD at 21:43 EDT Reading Location ID and State: [facility] / [place] , Service support , Facial/Sinus 11/28/22 20:50 IMPRESSION: Extensively comminuted bilateral nasal fractures. Nose is deviated to the right. Electronically Signed: Beni Harry MD at 21:26 EDT , Foot X-Ray 11/28/22 21:00 IMPRESSION: No definite acute abnormality seen. Electronically Signed: Beni Harry MD at 21:45 EDT , Treatment and Re-Evaluation :: CBC was normal white count with a hemoglobin of 11.7. Chemistry studies reveal a BUN of 40 and a creatinine of 1.56. Glucose is 161. Coags do reveal INR of 2.6. Patient was recently restarted on Eliquis. CT scan of the head reveals chronic involutional changes with no acute abnormality. CT of the C-spine shows no definitive fracture or dislocation. CT scan of the facial bones reveals extensively comminuted bilateral nasal fractures. CT of the chest/abdomen/pelvis reveals pleural effusions bilaterally with compressive atelectasis. No definite acute injuries or abnormalities in the abdomen or pelvis are noted. Right foot x-ray per my interpretation reveals chronic changes read radiology interpretation is reviewed and agrees. Left forehead laceration repaired after injection of 2 cc 1% lidocaine. Wound is thoroughly cleansed. 5 simple interrupted sutures of 5-0 nylon are placed with good approximation. Patient tolerated procedure well. He will be given Afrin nasal spray as well as Keflex given his nasal bone fractures and epistaxis. Patient will be discharged back to [facility] with instructions that he is not to be up without staff present. Sutures are to removed in 5 to 7 days. Discharge Plan Triage Chief Complaint: Head Injury ED Provider: Jennie Chin Dx/Rx/DC Orders Clinical Impression: Fall, Forehead laceration, Nasal bone fractures Instructions: ED Fall with Uncertain Cause, ED Nose Fracture, with X-Ray, ED Head Injury (Adult), ED Laceration: All Closures Prescriptions: New cephalexin 500 mg capsule 500 mg PO Q12 Qty: 14 0RF No Action triamcinolone acetonide 0.1 % cream 1 applic topical DAILY bisacodyl 10 mg Suppository 10 mg DE .PRN X 1 PRN (Reason: Constipation) Qty: 0 0RF carvedilol 6.25 mg tablet 6.25 mg PO BIDCM venlafaxine 75 mg tablet 150 mg PO DAILY atorvastatin 10 mg tablet 10 mg PO QHS sennosides-docusate sodium [Stool Softener-Stimulant Laxat] 8.6-50 mg tablet 1 tab PO BID clopidogrel 75 mg tablet 75 mg PO DAILY methotrexate sodium 2.5 mg tablet 17.5 mg PO FR tamsulosin 0.4 mg capsule 0.4 mg PO DAILY@1730 folic acid 1 mg tablet 1 mg PO BREAKFAST ipratropium bromide 42 mcg (0.06 %) spray,non-aerosol 2 spray NASAL BID Deep Sea Nasal 0.65 % aerosol,spray 2 spray NASAL TID bupropion HCl 150 mg tablet extended release 24 hr 150 mg PO DAILY menthol-zinc oxide [Calmoseptine] 0.44-20.6 % ointment 1 applic topical BID Protocol: *Topical Application Instructions APPLICATION INSTRUCTIONS: BILAT BUTTOCKS Tradjenta 5 mg tablet 5 mg PO DAILY insulin lispro [Humalog KwikPen Insulin] 100 unit/mL Insulin Pen 10 unit subcut TIDAC Qty: 0 0RF loratadine [Claritin] 10 mg Tablet 10 mg PO DAILY acetaminophen 500 mg tablet 1,000 mg PO Q8 PRN (Reason: Pain) doxycycline monohydrate 100 mg Capsule 100 mg PO BID Qty: 0 0RF Glucerna 1.2 Mustapha 0.06-1.2 gram-kcal/mL Liquid 120 ml PO 4X/DAY Qty: 0 0RF nystatin [Nyamyc] 100,000 unit/gram Powder 1 applic topical TID Qty: 0 0RF Protocol: *Topical Application Instructions APPLICATION INSTRUCTIONS: To bilateral inguinal folds insulin lispro [Humalog KwikPen Insulin] 100 unit/mL Insulin Pen See Protocol subcut ACHS Qty: 0 0RF Protocol: 2. Sliding Scale Insulin Low-Med Dosing Condition: 150-209 mg/dl = 1 unit Condition: 210-269 mg/dl = 2 units Condition: 270-329 mg/dl = 3 units Condition: 330-389 mg/dl = 4 units Condition: 390-449 mg/dl = 5 units Condition: Greater than 449 call physician Protocol Text: - Use for Total Daily Dose of Insulin 28-36 units - Average size patients LOW MEDIUM DOSING ALGORITHM apixaban 5 mg tablet 5 mg PO BID Qty: 60 0RF Primary Care Provider: Bryce Camacho Referrals: Clyde Davis MD [Med Staff - Active Staff] - 1 Week Bryce Camacho MD [Primary Care Provider] - 3-5 Days Activity Restrictions/Additional Instructions: Do not get up without having [facility]CF staff with you to assist. Disposition Disposition: Shelter Facility Discharge Location: [facility]
[2022-11-28] MEDS: fentaNYL 100 MCG/2 ML Ampul 25 MCG IV (20:24)
[2022-11-28] MEDS: Lidocaine 1% (20 ml mdv) 20 ML Vial INFILT (20:25)
[2022-11-28] MEDS: Diphth,Pertuss(Acell),Tet Vac 0.5 ML Vial IM (20:25)
--- NOTE | 2022-11-28 20:50 | CT_ITS ---
STUDY: CT CHEST, ABDOMEN T PELVIS WITHOUT CONTRAST REASON FOR EXAM: Male, 72 years old. trauma. Fall. RADIATION DOSAGE (If Supplied By Facility): CTDIvol = ( 26.12 ) mGy, DLP = ( 2294.30 ) mGycm TECHNIQUE: Transaxial imaging was performed without the administration of intravenous contrast material. Individualized dose optimization techniques were used for this CT. COMPARISON: 07/25/2018 FINDINGS: CHEST Normal lung volumes. Moderate right pleural effusion. Small to moderate left pleural effusion. Prominent compressive atelectasis of both lower lobes worse on the right. Probable very mild pulmonary edema. No pneumothorax. Previous CABG. Prominently calcified aorta. Calcified coronary arteries. Mild to moderate cardiomegaly. Grossly negative mediastinum. Grossly negative hilar regions. Normal unenhanced pulmonary arteries. Normal aorta arch and descending thoracic aorta. Degenerative changes of the spine. No rib fractures are seen. ABDOMEN Normal liver. Normal gallbladder and extrahepatic biliary system. Normal spleen. Normal pancreas. Normal bilateral adrenal glands. Normal right kidney. Left kidney has a stable 4.6 cm upper pole cyst, and a stable nonobstructing lower pole stone. Evaluation of the GI tract is limited by absence of oral contrast. Cannot exclude stomach wall thickening. No dilated loops of bowel or evidence for obstruction. Cannot exclude segmental thickening of the anderson of the small or large bowel. Cannot exclude enteritis or colitis. Moderate diffuse fecal retention. Diverticulosis without definite diverticulitis. Appendix within normal limits. There is diffuse atherosclerotic calcification of the abdominal aorta with elongation and tortuosity, but without a demonstrated aneurysm. Normal inferior vena cava. Normal retroperitoneum. There is anasarca of the abdominal wall. Normal osseous structures. PELVIS Moderately distended urinary bladder. There is no pelvic fluid. There is no pelvic lymphadenopathy or mass lesion. There is enlargement of the prostate gland. There is diffuse atherosclerotic calcification of the pelvic arteries. Normal abdominal wall. There are diffuse degenerative changes of the visualized lumbar spine. Extensive postsurgical changes are seen of the lumbar spine, grossly stable. CT/CT Chest, Abd, Pelvis WO Cont IMPRESSION: Prominent pleural effusions in the chest with prominent compressive atelectasis of both lungs. Probable mild diffuse pulmonary edema. No definite acute injuries or abnormalities in the abdomen or pelvis. Chronic findings as above. Electronically Signed: Beni Harry MD at 21:43 EDT ,
--- NOTE | 2022-11-28 20:50 | CT_ITS ---
STUDY: CT CERVICAL SPINE WITHOUT CONTRAST REASON FOR EXAM: Male, 72 years old. trauma RADIATION DOSAGE (If Supplied By Facility): CTDIvol = ( 22.27 ) mGy, DLP = ( 359.96 ) mGycm TECHNIQUE: High resolution transaxial imaging was performed without contrast material. Sagittal and coronal images were reconstructed. Individualized dose optimization techniques were used for this CT. COMPARISON: None FINDINGS: No definite acute fracture/dislocation. The cervical junction is intact. C1-C2 articulation is intact. There is straightening. There is normal alignment. Facet joints are intact at all levels bilaterally. No jumped facets. There is multilevel spondyloarthropathy. Multilevel degenerative disc disease seen. Multilevel loss of disc height. Multilevel posterior marginal osteophytes and disc bulges. Multilevel neural foraminal narrowing. Multilevel narrowing of the spinal canal. Visualized paraspinal soft tissues and structures are unremarkable. A carotid stent is seen on the right. CT/Spine Cervical without Contras IMPRESSION: There is no definite acute fracture/dislocation. Degenerative changes. Electronically Signed: Beni Harry MD at 21:29 EDT ,
--- NOTE | 2022-11-28 20:50 | CT_ITS ---
STUDY: CT BRAIN WITHOUT CONTRAST REASON FOR EXAM: Male, 72 years old. trauma RADIATION DOSAGE (If Supplied By Facility): CTDIvol = ( 44.99 ) mGy, DLP = ( 880.47 ) mGycm TECHNIQUE: Transaxial CT imaging of the brain was performed without administration of intravenous contrast material. Individualized dose optimization techniques were used for this CT. COMPARISON: No relevant priors. FINDINGS: Normal soft tissue structures. Normal calvarium. There is moderate cerebral atrophy with widening of the extra-axial spaces and ventricular dilatation. There are areas of decreased attenuation within the white matter tracts of the supratentorial brain, consistent with microvascular disease changes. Normal basal ganglia and thalami. Normal brainstem. There is mild cerebellar atrophy. Encephalomalacia from previous right parietal infarct is seen. There is no intracranial hemorrhage. There are no findings of an acute ischemic infarction. Normal visualized paranasal sinuses. Abnormal appearance of the nose. Soft tissue swelling and nasal fractures are seen. CT/Brain/Head without Contrast IMPRESSION: Chronic involutional changes of the brain. No acute intracranial abnormalities. Electronically Signed: Beni Harry MD at 21:16 EDT ,
--- NOTE | 2022-11-28 20:50 | CT_ITS ---
STUDY: CT FACIAL BONES WITHOUT CONTRAST REASON FOR EXAM: Male, 72 years old. trauma RADIATION DOSAGE (If Supplied By Facility): CTDIvol = ( 29.38 ) mGy, DLP = ( 591.53 ) mGycm TECHNIQUE: The patient was scanned in a multi detector CT scanner. Sagittal and coronal images were reconstructed. Individualized dose optimization techniques were used for this CT. COMPARISON: None. FINDINGS: Extensively comminuted fractures are seen of the bilateral nasal bones, with shift of the nose to the right. No other facial fractures are seen. Normal orbital anderson and orbital contents. Normal visualized paranasal sinuses. CT/Sinus/Facial Bone IMPRESSION: Extensively comminuted bilateral nasal fractures. Nose is deviated to the right. Electronically Signed: Beni Harry MD at 21:26 EDT ,
[2022-11-28 20:54] LABS: Hematocrit 36.6 % (40-54); Hemoglobin 11.7 g/dL (13.0-16.5); Mean Corpuscular Hgb 33.8 pg (27.0-32.0); Mean Corpuscular Volume 105.8 fL (80-94); Mean Platelet Vol. 11.3 fl (6.2-12.0); POSITIVE COUNT YES; POSITIVE MORPHOLOGY YES; Platelet Count 114 K/mm3 (150-450); RBC Distribution Width CV 18.5 % (11.6-14.6); RBC Distribution Width SD 67.7 fl (35.1-43.9); Red Blood Count 3.46 M/mm3 (4.6-6.2)
[2022-11-28 20:56] LABS: Differential Indicated MANUAL DIFF
--- NOTE | 2022-11-28 21:00 | RAD_ITS ---
STUDY: X-RAY - RIGHT FOOT CLINICAL: Male, 72 years old. injury TECHNIQUE: 3 view(s) of the foot. COMPARISON: None. FINDINGS: Normal talus, calcaneus, and tarsal bones. Normal visualized subtalar, talonavicular, calcaneocuboid, tarsal and tarsometatarsal articulations. There appears to have been previous resection across the head of the second metatarsal. There is degenerative arthrosis of the metatarsophalangeal joint of the hallux . Normal tibial and fibular sesamoid bones. There is degenerative arthrosis of the interphalangeal joint of the great toe. Normal phalanges of the great toe. Normal second through fifth metatarsophalangeal joints. Normal interphalangeal joints and phalanges of the lesser toes. The soft tissue structures are unremarkable. There is no demonstrated fracture. RAD/Foot min 3 Views IMPRESSION: No definite acute abnormality seen. Electronically Signed: Beni Harry MD at 21:45 EDT ,
[2022-11-28 21:07] LABS: International Normalized Ratio 2.6; Partial Thromboplast Time 36.5 Seconds (24.1-36.2); Prothrombin Time (Protime)PT. 27.8 SECONDS (11.7-14.9)
[2022-11-28 21:15] LABS: Anion Gap 6 (5-15); BUN 40 mg/dL (7-18); BUN/Creat Ratio 25.6 RATIO (10-20); Calcium,Total 8.4 mg/dL (8.5-10.1); Chloride 115 mmol/L (98-107); Creatinine, Serum 1.56 mg/dL (0.70-1.30); EST Glomerular Filtration Rate 47 mL/min (>60); Est Glom Filt Rate - Afr Amer 56 mL/min (>60); Glucose 161 mg/dL (74-106); Potassium 4.6 mmol/L (3.5-5.1); Sodium Level 141 mmol/L (136-145)
[2022-11-28 21:18] LABS: Basophil 1 % (0-1); Eosinophil 7 % (0-5); Lymphocyte 6 % (19-41); Metamyelocyte 8 % (0-1); Monocyte 5 % (0-10); Myelocyte 3 % (0-0); Neutrophil-Band 2 % (0-5); Neutrophil-Segmented 68 % (47-70); Total Cells Counted 100 (MANUAL DIFF)
[2022-11-28 21:19] LABS: Nucleated Red Bld Cells,Manual 5 % (0-5)
[2022-11-28 21:21] LABS: Absolute Lymphocyte Count 0.54 X10^3/uL (0.83-4.51); Absolute Neutrophil Count 7.3 X10^3/uL (2.0-7.7); Lymphocyte # 0.54 X10^3/ul (0.83-4.51); Neutrophil # 7.29 X10^3/uL (2.7-7.7)
[2022-11-28 21:22] LABS: Platelet Estimate SLT DEC (ADEQ); Polychromasia 1+
[2022-11-28 21:23] LABS: Anisocytosis 2+; Macrocytosis 1+
[2022-11-28] MEDS: Oxymetazoline 0.05% 1 SPRAY SPRAY.BTL NASAL (22:55)
[2022-11-28] MEDS: Cephalexin 250 MG Capsule 500 MG PO (22:55)
[2022-11-28 23:04] VITALS: BP 139/88; PULSE 79; RESP 18; O2SAT 94
[2022-11-29 13:35] LABS: Pathologist Review Reviewed
== END 2022-11-29 01:58 ==
PROVIDERS: Emergency Provider Emergency Medicine; PCP Family Medicine; Visit Provider Emergency Medicine
DX: S02.2XXA Fracture of nasal bones, initial encounter for closed fracture (principal); E11.42 Type 2 diabetes mellitus with diabetic polyneuropathy; E11.22 Type 2 diabetes mellitus with diabetic chronic kidney disease; Z79.4 Long term (current) use of insulin; S01.81XA Laceration without foreign body of other part of head, initial encounter; M79.671 Pain in right foot; W19.XXXA Unspecified fall, initial encounter; Y92.129 Unspecified place in nursing home as the place of occurrence of the external cause; Z23 Encounter for immunization; E78.5 Hyperlipidemia, unspecified; I25.10 Atherosclerotic heart disease of native coronary artery without angina pectoris; N18.2 Chronic kidney disease, stage 2 (mild); I12.9 Hypertensive chronic kidney disease with stage 1 through stage 4 chronic kidney disease, or unspecified chronic kidney disease; Z79.02 Long term (current) use of antithrombotics/antiplatelets; Z79.899 Other long term (current) drug therapy
CPT/HCPCS: 12013; 70450; 70486; 71250; 72125; 73630; 74176; 80048; 85025; 85610; 85730; 90715; 96374; 99285; A4216